=== PATIENT | female | born 1950 | race Caucasian/White ===

== ENCOUNTER → 2017-10-21 12:33 | Outpatient (CLI) | payer OTHER, SELFPAY ==
[2017-10-21 13:26] LABS: Absolute Lymphocyte Count 3.69 X10^3/ul (0.83-4.51); Absolute Neutrophil Count 4.5 X10^3/uL (2.0-7.7); Basophil# 0.03 X10^3/uL; Basophil% 0.3 % (0-1); Eosinophil# 0.18 X10^3/uL; Hematocrit 41.2 % (37-47); Hemoglobin 13.4 g/dl (12.0-15.0); Lymphocyte # 3.69 X10^3/ul (4.0); Lymphocyte % 41.7 % (19-41); Mean Corp Hgb Conc 32.5 g/gl (32-36); Mean Corpuscular Volume 95.4 fL (81-99); Mean Platelet Vol. 9.9 fl (6.2-12.0); Monocyte# 0.46 X10^3/uL; Monocyte% 5.2 % (0-10); Neutrophil # 4.47 X10^3/uL (2.7-7.7); Neutrophil % 50.6 % (47-70); Platelet Count 384 K/mm3 (150-450); RBC Distribution Width CV 13.3 % (11.6-14.6); RBC Distribution Width SD 45.1 fl (35.1-43.9); Red Blood Count 4.32 M/mm3 (4.2-5.4); White Blood Count 8.9 K/mm3 (4.4-11.0)
[2017-10-21 13:29] LABS: POSITIVE COUNT NO; POSITIVE DIFFERENTIAL NO; POSITIVE MORPHOLOGY NO
[2017-10-21 14:01] LABS: AST(SGOT) 20 U/L (15-37); Alanine Aminotransfer ALT/SGPT 32 U/L (13-56); Albumin, Serum 3.8 g/dL (3.2-5.0); Alkaline Phosphatase 118 U/L (45-117); Anion Gap 7 (5-15); BUN 20 mg/dL (7-18); BUN/Creat Ratio 22.6 RATIO (10-20); Calcium,Total 9.1 mg/dL (8.5-10.1); Chloride 105 mmol/L (98-107); Cholesterol 193 mg/dL (200); Creatinine, Serum 0.89 mg/dL (0.55-1.02); EST Glomerular Filtration Rate 68 mL/min (>60); Est Glom Filt Rate - Afr Amer 82 mL/min (>60); Free T3 2.8 pg/mL (2.18-3.98); Globulin 3.9 g/dL (2.2-4.2); Glucose 85 mg/dL (74-106); High Density Lipoprotein 47 mg/dL; Protein, Total 7.7 g/dL (6.4-8.2); Sodium Level 141 mmol/L (136-145); Thyroid Stim Hormone (TSH) 1.48 uIU/mL (0.358-3.74); Triglycerides 237 mg/dL; Very Low Density Lipoprotein 47 mg/dL (5-40)
== END ==
PROVIDERS: Family Provider Internal Medicine; PCP Internal Medicine; Visit Provider Internal Medicine Rheumatology
DX: M06.4 Inflammatory polyarthropathy (principal); M17.0 Bilateral primary osteoarthritis of knee; M16.0 Bilateral primary osteoarthritis of hip; M85.80 Other specified disorders of bone density and structure, unspecified site; M79.7 Fibromyalgia; D47.2 Monoclonal gammopathy; M21.40 Flat foot [pes planus] (acquired), unspecified foot; E03.9 Hypothyroidism, unspecified; E27.9 Disorder of adrenal gland, unspecified; H81.03 Meniere's disease, bilateral; G47.419 Narcolepsy without cataplexy; Z79.899 Other long term (current) drug therapy
CPT/HCPCS: 36415; 80053; 80061; 82306; 83036; 84439; 84443; 84481; 85025

== ENCOUNTER → 2018-01-01 12:35 | Outpatient (CLI) | payer MEDICARE, OTHER, SELFPAY ==
[2018-01-01 12:50] VITALS: PULSE 103; PULSE 105; PULSE 84; PULSE 87; PULSE 88; PULSE 96; PULSE 97; PULSE 98; O2SAT 90; O2SAT 92; O2SAT 94; O2SAT 97; O2SAT 98; O2SAT 99
--- NOTE | 2018-01-02 11:35 | PCM.PSN.6M ---
PSN 6 Minute Walk Test - 6 Minute Walk Test 6 Minute Walk Test: 6 Minute Walk Test PSN:6-Minute Walk Test Start: 01/01/18 13:51 Freq: Status: Active Protocol: [id number] Document 01/01/18 12:50 [facility] [place] (Rec: 01/01/18 14:13 [facility] [place] [id number]) 6 Minute Walk Test Date Performed 01/01/18 Time Performed 12:50 Height 5 ft 5.5 in Weight: 249 lb Weight in Pounds 249.[address]: Kvng Nunez Assistive device used: None Pre-test Oxygen Delivery Method Room Air Pulse Ox (%) 99 Pulse Rate (60-100 beats/min) 84 Dyspnea Emma Scale (0-10) 0 Exertion Emma Scale (6-20) 6 1st minute Oxygen Delivery Method Room Air Pulse Ox (%) 98 Pulse Rate (60-100 beats/min) 97 Number of Rests Taken 0 2nd minute Oxygen Delivery Method Room Air Pulse Ox (%) 92 Pulse Rate (60-100 beats/min) 98 Number of Rests Taken 0 Reported Symptoms Increased Work of Breathing 3rd minute Oxygen Delivery Method Room Air Pulse Ox (%) 98 Pulse Rate (60-100 beats/min) 88 Number of Rests Taken 1 4th minute Oxygen Delivery Method Room Air Pulse Ox (%) 90 Pulse Rate (60-100 beats/min) 96 Number of Rests Taken 0 5th minute Oxygen Delivery Method Room Air Pulse Ox (%) 90 Pulse Rate (60-100 beats/min) 103 H Number of Rests Taken 0 Reported Symptoms Increased Work of Breathing 6th minute Oxygen Delivery Method Room Air Pulse Ox (%) 94 Pulse Rate (60-100 beats/min) 105 H Reported Symptoms Increased Work of Breathing Dizziness Post-test Oxygen Delivery Method Room Air Pulse Ox (%) 97 Pulse Rate (60-100 beats/min) 87 Dyspnea Emma Scale (0-10) 4 Exertion Emma Scale (6-20) 14 Full Laps Walked 16 Partial Lap, Number of Tiles Walked 37 Total Distance Walked (ft) 981 - Interpretation Interpretation: The patient ambulated 981 feet over the course of 6 minutes beginning on room air without assistive devices or breaks. Pretesting saturation was noted to be 99% on room air. With ambulation, the noble oxygen saturation was 90%. This represents a significant exertional oxygen desaturation. - Recommendations Recommendations: There is no indication for the use of supplemental oxygen at this time. However, close interval follow-up is recommended given the degree of oxygen desaturation noted during this study.
== END ==
PROVIDERS: Family Provider Internal Medicine; PCP Internal Medicine; Visit Provider Internal Medicine Critical Care Medicine
DX: R06.09 Other forms of dyspnea (principal)
CPT/HCPCS: 94618

== ENCOUNTER → 2018-01-15 06:47 | Outpatient (CLI) | payer MEDICARE, OTHER, SELFPAY ==
--- NOTE | 2018-01-15 06:47 | DT_ITS ---
This patient was seen during an EMR downtime January 12, 2018 - January 19, 2018. This patient may have a combination of paper and electronic documentation or all paper documentation. All documentation is viewable within the e-chart portion of [facility] for each patient visit.
--- NOTE | 2018-01-19 11:54 | PFT ---
INTRODUCTION: The patient is a 67-year-old female that presents for pulmonary function testing secondary to a diagnosis of dyspnea. Respiratory therapy reports good patient effort. Bronchodilators were used during testing. INTERPRETATION: Forced expiration spirometry demonstrates no evidence of a large airways obstructive ventilatory defect. There was no significant response to aerosolized bronchodilators. Spirograms are of good quality and plateau gradually. Body plethysmography was performed and reveals lung volumes to be within normal limits. Diffusing capacity by single breath CO is mildly reduced at 69% of predicted. IMPRESSION: These pulmonary function studies demonstrate the presence of an isolated mild reduction in diffusing capacity. There are no previous pulmonary function studies available for comparison.
== END ==
PROVIDERS: Family Provider Internal Medicine; PCP Internal Medicine; Visit Provider Internal Medicine Critical Care Medicine
DX: R06.09 Other forms of dyspnea (principal)
CPT/HCPCS: 94060; 94726; 94729

== ENCOUNTER → 2018-01-16 07:53 | Outpatient (CLI) | payer MEDICARE, OTHER, SELFPAY ==
--- NOTE | 2018-01-16 07:53 | DT_ITS ---
This patient was seen during an EMR downtime January 12, 2018 - January 19, 2018. This patient may have a combination of paper and electronic documentation or all paper documentation. All documentation is viewable within the e-chart portion of [facility] for each patient visit.
[2018-01-16 15:06] LABS: ALB/GLOB Ratio 1.1 RATIO (0.9-2.4); AST(SGOT) 24 U/L (15-37); Alanine Aminotransfer ALT/SGPT 38 U/L (13-56); Albumin, Serum 3.7 g/dL (3.2-5.0); Alkaline Phosphatase 88 U/L (45-117); Anion Gap 8 (5-15); BUN 20 mg/dL (7-18); BUN/Creat Ratio 24.1 RATIO (10-20); Calcium,Total 8.7 mg/dL (8.5-10.1); Chloride 107 mmol/L (98-107); Creatinine, Serum 0.83 mg/dL (0.55-1.02); EST Glomerular Filtration Rate 73 mL/min (>60); Est Glom Filt Rate - Afr Amer 88 mL/min (>60); Free T3 2.9 pg/mL (2.18-3.98); Globulin 3.5 g/dL (2.2-4.2); Glucose 80 mg/dL (74-106); Potassium 3.7 mmol/L (3.5-5.1); Protein, Total 7.2 g/dL (6.4-8.2); Sodium Level 145 mmol/L (136-145); T4 Free Direct 1.15 ng/dL (0.76-1.46); Thyroid Stim Hormone (TSH) 2.75 uIU/mL (0.358-3.74)
[2018-01-19 17:50] LABS: Hemoglobin 12.6 g/dl (12.0-15.0); Red Blood Count 4.02 M/mm3 (4.2-5.4); White Blood Count 8.1 K/mm3 (4.4-11.0)
[2018-01-19 17:51] LABS: Basophil% 0.5 % (0-1); Eosinophils% 2.3 % (0-5); Hematocrit 39.6 % (37-47); Lymphocyte % 45.1 % (19-41); Mean Corp Hgb Conc 31.8 g/gl (32-36); Mean Corpuscular Hgb 31.3 pg (27.0-32.0); Mean Corpuscular Volume 98.5 fL (81-99); Mean Platelet Vol. 9.8 fl (6.2-12.0); Monocyte% 7.3 % (0-10); Neutrophil % 44.6 % (47-70); POSITIVE COUNT NO; POSITIVE DIFFERENTIAL NO; POSITIVE MORPHOLOGY NO; Platelet Count 343 K/mm3 (150-450); RBC Distribution Width CV 13.7 % (11.6-14.6); RBC Distribution Width SD 48.5 fl (35.1-43.9)
[2018-01-19 17:52] LABS: Absolute Lymphocyte Count 3.66 X10^3/ul (0.83-4.51); Absolute Neutrophil Count 3.6 X10^3/uL (2.0-7.7); Basophil# 0.04 X10^3/uL; Eosinophil# 0.19 X10^3/uL; Lymphocyte # 3.66 X10^3/ul (4.0); Monocyte# 0.59 X10^3/uL; Neutrophil # 3.61 X10^3/uL (2.7-7.7)
== END ==
PROVIDERS: Family Provider Internal Medicine; PCP Internal Medicine; Visit Provider Internal Medicine Rheumatology
DX: E03.9 Hypothyroidism, unspecified (principal); M06.4 Inflammatory polyarthropathy; M79.7 Fibromyalgia; M17.0 Bilateral primary osteoarthritis of knee; M16.0 Bilateral primary osteoarthritis of hip; E27.9 Disorder of adrenal gland, unspecified; D47.2 Monoclonal gammopathy; M21.40 Flat foot [pes planus] (acquired), unspecified foot; G47.419 Narcolepsy without cataplexy; H81.03 Meniere's disease, bilateral; Z79.899 Other long term (current) drug therapy
CPT/HCPCS: 36415; 80053; 84439; 84443; 84481; 85025

== ENCOUNTER → 2018-01-30 12:49 | Outpatient (CLI) | payer MEDICARE, OTHER, SELFPAY ==
--- NOTE | 2018-01-30 12:51 | BI_ITS ---
MAMMOGRAPHY - BILATERAL SCREENING REASON FOR EXAM: Female, 67 years old. Routine annual screening examination. PERTINENT HISTORY: Grandmother with breast cancer. TECHNIQUE: Digital bilateral breast sol (3D mammographic acquisition) in the CC and MLO projections. 2-D mediolateral oblique (MLO) and craniocaudad (CC) views of both breasts were obtained. CAD: Full Field Digital Mammography with Computer Added Detection was performed. COMPARISON: Comparison is made with prior study dated March 03, 2017 and July 18, 2015. FINDINGS: Breast Composition: The breasts are almost entirely fatty. There are no dominant masses or suspicious calcifications. Stable benign-appearing bilateral axillary lymph nodes. No other significant abnormalities are identified. There has been no significant change since the prior study. BI/SCREENING MAMM (CAD), BILAT IMPRESSION: Stable bilateral screening mammogram. Yearly follow-up mammogram recommended. (A) ASSESSMENT CATEGORY: BIRADS Category 2: Benign. A letter regarding these results will be sent to the patient by the facility within 30 days. Approximately 10% of breast cancers are not detected by mammography. A normal mammogram should not delay biopsy of a clinically suspicious abnormality. [id number] Electronically Signed: Billy Kaplan MD at 8:10 EDT Tel [phone], Service support ,
== END ==
PROVIDERS: Family Provider Internal Medicine; PCP Internal Medicine; Visit Provider Internal Medicine
DX: Z12.31 Encounter for screening mammogram for malignant neoplasm of breast (principal); Z80.3 Family history of malignant neoplasm of breast
CPT/HCPCS: 77063; 77067

== ENCOUNTER → 2018-02-05 11:11 | Outpatient (CLI) | payer MEDICARE, OTHER, SELFPAY ==
--- NOTE | 2018-02-05 11:13 | ECHOD_ITS ---
Reason For Study: DYSPNEA Procedure This was a 2D Doppler, Color Flow transthoracic echocardiogram. Exam performed in department. Left Ventricle Normal size and thickness. The estimated ejection fraction is 65 %. Stage 1 diastolic dysfunction. Septal motion consistent with IVCD. No regional wall motion abnormalities noted. Right Ventricle Normal size and thickness. Normal systolic function. Atria Normal left atrium. Normal right atrium. Normal atrial septum. Mitral Valve The mitral valve is structurally normal. No prolapse or stenosis seen. Tricuspid Valve Normal tricuspid valve. Trivial tricuspid valve insufficiency. Right ventricular systolic pressure estimated to be 22 mmHg. Aortic Valve Normal aortic valve. Trisinus/trileaflet aortic valve. Pulmonic Valve Normal pulmonic valve. Great Vessels Normal aortic root. Normal arch. Normal inferior vena cava. Inferior vena cava collapse with sniff. Pericardium/Pleural No pericardial effusion. MMode/2D Measurements & Calculations LVIDd: 4.7 cm IVSd: 0.98 cm Ao root diam: 3.3 cm LVIDs: 3.1 cm LVPWd: 1.0 cm RVDd: 3.7 cm FS: 34.1 % LAV(MOD-bp): 48.8 ml LA A4 area: 20.3 cm2 RA A4 area: 17.8 cm2 LAV(MOD-bp) Indexed: 22.3 ml/m2 LAV(MOD-sp2): 38.2 ml LAV(MOD-sp4): 58.9 ml Time Measurements MV dec time: 0.23 sec Doppler Measurements & Calculations MV E max rai: 87.6 cm/sec Lat Peak E' Ria: 6.6 cm/sec Med Peak E' Rai: 5.0 cm/sec MV A max rai: 110.7 cm/sec E/E' lat: 13.3 E/E' med: 17.6 MV E/A: 0.79 Ao V2 max: 138.0 cm/sec LV V1 max: 96.3 cm/sec TR max rai: 202.5 cm/sec Ao max P.6 mmHg LV V1 max P.7 mmHg TR max P.4 mmHg Interpretation Summary The estimated ejection fraction is 65 %. Stage 1 diastolic dysfunction. Trivial tricuspid valve insufficiency. Right ventricular systolic pressure estimated to be 22 mmHg. Compared to echo report dated 12/21/2015, no appreciable changes noted. Ordering Physician: Kvng Nunez Referring Physician: Kvng Nunez Performed By: Beth Mancini, ABELINO, RVT
== END ==
PROVIDERS: Family Provider Internal Medicine; PCP Internal Medicine; Visit Provider Internal Medicine Critical Care Medicine
DX: R06.00 Dyspnea, unspecified (principal); R06.02 Shortness of breath
CPT/HCPCS: 93306

== ENCOUNTER → 2018-03-24 10:21 | Outpatient (CLI) | payer MEDICARE, OTHER, SELFPAY ==
[2018-03-24 11:36] LABS: Absolute Lymphocyte Count 2.74 X10^3/ul (0.83-4.51); Absolute Neutrophil Count 2.6 X10^3/uL (2.0-7.7); Basophil# 0.03 X10^3/uL; Basophil% 0.5 % (0-1); Eosinophil# 0.27 X10^3/uL; Eosinophils% 4.5 % (0-5); Hematocrit 39.7 % (37-47); Hemoglobin 12.7 g/dl (12.0-15.0); Lymphocyte # 2.74 X10^3/ul (4.0); Lymphocyte % 45.4 % (19-41); Mean Corpuscular Hgb 30.5 pg (27.0-32.0); Mean Corpuscular Volume 95.2 fL (81-99); Mean Platelet Vol. 9.8 fl (6.2-12.0); Monocyte% 6.6 % (0-10); Platelet Count 358 K/mm3 (150-450); RBC Distribution Width CV 13.2 % (11.6-14.6); RBC Distribution Width SD 45.6 fl (35.1-43.9); Red Blood Count 4.17 M/mm3 (4.2-5.4)
[2018-03-24 11:38] LABS: POSITIVE COUNT NO; POSITIVE DIFFERENTIAL NO; POSITIVE MORPHOLOGY NO
[2018-03-24 12:19] LABS: ALB/GLOB Ratio 1.1 RATIO (0.9-2.4); AST(SGOT) 30 U/L (15-37); Alanine Aminotransfer ALT/SGPT 45 U/L (13-56); Alkaline Phosphatase 96 U/L (45-117); Anion Gap 8 (5-15); BUN 23 mg/dL (7-18); BUN/Creat Ratio 27.2 RATIO (10-20); Calcium,Total 8.9 mg/dL (8.5-10.1); Chloride 103 mmol/L (98-107); Creatinine, Serum 0.85 mg/dL (0.55-1.02); EST Glomerular Filtration Rate 72 mL/min (>60); Est Glom Filt Rate - Afr Amer 87 mL/min (>60); Globulin 3.7 g/dL (2.2-4.2); Glucose 107 mg/dL (74-106); Potassium 3.3 mmol/L (3.5-5.1); Protein, Total 7.7 g/dL (6.4-8.2); Sodium Level 140 mmol/L (136-145)
[2018-03-24 12:32] LABS: Anion Gap 9 (5-15); BUN 23 mg/dL (7-18); BUN/Creat Ratio 27.5 RATIO (10-20); Calcium,Total 9.1 mg/dL (8.5-10.1); Chloride 102 mmol/L (98-107); Creatinine, Serum 0.84 mg/dL (0.55-1.02); EST Glomerular Filtration Rate 73 mL/min (>60); Est Glom Filt Rate - Afr Amer 88 mL/min (>60); Glucose 106 mg/dL (74-106); Potassium 3.2 mmol/L (3.5-5.1); Sodium Level 139 mmol/L (136-145)
== END ==
PROVIDERS: Family Provider Internal Medicine; PCP Internal Medicine; Visit Provider Internal Medicine Rheumatology
DX: M06.4 Inflammatory polyarthropathy (principal); M79.7 Fibromyalgia; M17.0 Bilateral primary osteoarthritis of knee; M16.0 Bilateral primary osteoarthritis of hip; E27.9 Disorder of adrenal gland, unspecified; D47.2 Monoclonal gammopathy; I10 Essential (primary) hypertension; M21.40 Flat foot [pes planus] (acquired), unspecified foot; E03.9 Hypothyroidism, unspecified; E23.3 Hypothalamic dysfunction, not elsewhere classified; G47.419 Narcolepsy without cataplexy; H81.03 Meniere's disease, bilateral; Z79.899 Other long term (current) drug therapy
CPT/HCPCS: 36415; 80048; 80053; 83735; 85025

== ENCOUNTER → 2018-03-30 08:04 | Outpatient (CLI) | payer MEDICARE, OTHER, SELFPAY ==
[2018-03-30 09:18] LABS: BUN 20 mg/dL (7-18); Creatinine, Serum 0.81 mg/dL (0.55-1.02); EST Glomerular Filtration Rate 75 mL/min (>60); Glucose 119 mg/dL (74-106)
[2018-03-30 09:19] LABS: Anion Gap 14 (5-15); BUN/Creat Ratio 24.7 RATIO (10-20); Calcium,Total 8.6 mg/dL (8.5-10.1); Chloride 104 mmol/L (98-107); Est Glom Filt Rate - Afr Amer 91 mL/min (>60); Potassium 3.2 mmol/L (3.5-5.1); Sodium Level 145 mmol/L (136-145)
[2018-03-31 14:34] LABS: Adrenocorticotropic Hormone 55.1 pg/mL (7.2-63.3)
== END ==
PROVIDERS: Family Provider Internal Medicine; PCP Internal Medicine; Visit Provider Internal Medicine Endocrinology, Diabetes & Metabolism
DX: E23.3 Hypothalamic dysfunction, not elsewhere classified (principal); E27.9 Disorder of adrenal gland, unspecified
CPT/HCPCS: 36415; 80048; 82024; 82533

== ENCOUNTER → 2018-04-24 12:56 | Outpatient (CLI) | payer MEDICARE, OTHER, SELFPAY ==
[2018-04-24 14:14] LABS: BUN 18 mg/dL (7-18); Creatinine, Serum 0.83 mg/dL (0.55-1.02); Glucose 86 mg/dL (74-106)
[2018-04-24 14:15] LABS: AST(SGOT) 33 U/L (15-37); Alanine Aminotransfer ALT/SGPT 55 U/L (13-56); Albumin, Serum 3.8 g/dL (3.2-5.0); Alkaline Phosphatase 99 U/L (45-117); Anion Gap 11 (5-15); BUN/Creat Ratio 21.7 RATIO (10-20); Calcium,Total 9.3 mg/dL (8.5-10.1); Chloride 104 mmol/L (98-107); EST Glomerular Filtration Rate 73 mL/min (>60); Est Glom Filt Rate - Afr Amer 89 mL/min (>60); Free T3 3.1 pg/mL (2.18-3.98); Globulin 3.7 g/dL (2.2-4.2); Potassium 3.5 mmol/L (3.5-5.1); Protein, Total 7.5 g/dL (6.4-8.2); Sodium Level 143 mmol/L (136-145); T4 Free Direct 1.15 ng/dL (0.76-1.46); Thyroid Stim Hormone (TSH) 1.48 uIU/mL (0.358-3.74)
[2018-04-24 14:23] LABS: Hemoglobin A1c 5.9 % (4.2-6.3)
== END ==
PROVIDERS: Family Provider Internal Medicine; PCP Internal Medicine; Visit Provider Internal Medicine Endocrinology, Diabetes & Metabolism
DX: E03.9 Hypothyroidism, unspecified (principal); E23.3 Hypothalamic dysfunction, not elsewhere classified; E27.9 Disorder of adrenal gland, unspecified
CPT/HCPCS: 36415; 80053; 83036; 84439; 84443; 84481

== ENCOUNTER → 2018-05-07 11:11 | Outpatient (CLI) | payer MEDICARE, OTHER, SELFPAY ==
--- NOTE | 2018-05-07 11:26 | MRI_ITS ---
STUDY: MRI BRAIN WITH AND WITHOUT CONTRAST REASON FOR EXAM: Female, 67 years old. Pituitary abnormality TECHNIQUE: Standardized multiplanar fat and water weighted pulse sequences were obtained. 20 ml of Dotarem contrast material was administered intravenously for the contrast portion of the examination. COMPARISON: CT of the brain on April 12, 2016. FINDINGS: Normal size of the ventricles and extra-axial spaces for the patient's age. Minor periventricular white matter ischemic changes without mass effect or restricted diffusion. There are chronic ischemic changes in the right dentate nucleus. Chronic ischemic changes within the right pontine body. Normal bilateral basal ganglia. Normal thalami. There is no extra-axial fluid accumulation. Normal flow voids within the major intracranial circulation suggesting patency by spin echo criteria. Normal venous enhancement. There is no enhancing intra-axial or extra-axial abnormality. The pituitary is normal size. There is very slight heterogeneous enhancement but no well-defined nodule. Nevertheless microadenoma cannot be entirely excluded and correlation with laboratory values recommended for further evaluation. Normal, infundibular stalk, optic chiasm and hypothalamus. Normal tectal plate and pineal gland. Normal midbrain and medulla. Normal basal cisterns. Normal bilateral temporal bones. Normal bilateral internal auditory canals. No demonstrated orbital abnormality, within the constraints of a routine brain study. Small mucous retention cyst in left maxillary sinus.. Normal calvarium and skull base. Normal visualized soft tissue structures. Normal visualized upper cervical spine. MRI/Brain W/WO Contrast IMPRESSION: Minor periventricular white matter ischemic changes without evidence for acute infarct. Minor chronic ischemic changes within the milagros and cerebellum. Normal size pituitary without well-defined nodule Electronically Signed: Wu Bates MD at 16:48 EDT , Service support ,
== END ==
PROVIDERS: Family Provider Internal Medicine; PCP Internal Medicine; Referring Provider Internal Medicine Endocrinology, Diabetes & Metabolism; Visit Provider Internal Medicine Endocrinology, Diabetes & Metabolism
DX: E23.7 Disorder of pituitary gland, unspecified (principal)
CPT/HCPCS: 70553

== ENCOUNTER → 2018-06-25 08:33 | Outpatient (CLI) | payer MEDICARE, OTHER, SELFPAY ==
[2018-06-25 10:10] LABS: Anion Gap 8 (5-15); BUN 26 mg/dL (7-18); Calcium,Total 8.8 mg/dL (8.5-10.1); Chloride 102 mmol/L (98-107); Creatinine, Serum 0.84 mg/dL (0.55-1.02); EST Glomerular Filtration Rate 72 mL/min (>60); Est Glom Filt Rate - Afr Amer 88 mL/min (>60); Glucose 101 mg/dL (74-106); Potassium 3.5 mmol/L (3.5-5.1); Sodium Level 140 mmol/L (136-145)
[2018-06-25 11:30] LABS: ALB/GLOB Ratio 1.1 RATIO (0.9-2.4); AST(SGOT) 58 U/L (15-37); Alanine Aminotransfer ALT/SGPT 85 U/L (13-56); Alkaline Phosphatase 115 U/L (45-117); Globulin 3.8 g/dL (2.2-4.2); Protein, Total 7.8 g/dL (6.4-8.2)
[2018-06-25 12:25] LABS: Absolute Lymphocyte Count 3.64 X10^3/ul (0.83-4.51); Absolute Neutrophil Count 3.7 X10^3/uL (2.0-7.7); Basophil# 0.03 X10^3/uL; Basophil% 0.4 % (0-1); Eosinophil# 0.24 X10^3/uL; Eosinophils% 3.1 % (0-5); Hematocrit 42.9 % (37-47); Hemoglobin 13.9 g/dl (12.0-15.0); Lymphocyte # 3.64 X10^3/ul (4.0); Lymphocyte % 46.4 % (19-41); Mean Corp Hgb Conc 32.4 g/gl (32-36); Mean Corpuscular Volume 95.8 fL (81-99); Mean Platelet Vol. 9.9 fl (6.2-12.0); Monocyte# 0.26 X10^3/uL; Monocyte% 3.3 % (0-10); Neutrophil # 3.65 X10^3/uL (2.7-7.7); Neutrophil % 46.5 % (47-70); Platelet Count 399 K/mm3 (150-450); RBC Distribution Width CV 13.4 % (11.6-14.6); RBC Distribution Width SD 45.6 fl (35.1-43.9); Red Blood Count 4.48 M/mm3 (4.2-5.4); White Blood Count 7.8 K/mm3 (4.4-11.0)
[2018-06-25 12:33] LABS: POSITIVE COUNT NO; POSITIVE DIFFERENTIAL NO; POSITIVE MORPHOLOGY NO
== END ==
PROVIDERS: Family Provider Internal Medicine; PCP Internal Medicine; Referring Provider Internal Medicine; Visit Provider Internal Medicine
DX: M06.4 Inflammatory polyarthropathy (principal); M79.7 Fibromyalgia; M17.0 Bilateral primary osteoarthritis of knee; M16.0 Bilateral primary osteoarthritis of hip; E27.9 Disorder of adrenal gland, unspecified; D47.2 Monoclonal gammopathy; M21.40 Flat foot [pes planus] (acquired), unspecified foot; Z79.899 Other long term (current) drug therapy
CPT/HCPCS: 36415; 80053; 85025

== ENCOUNTER → 2018-07-29 20:00 | Outpatient (CLI) | payer MEDICARE, OTHER, SELFPAY ==
[2018-07-14 12:42] VITALS: BMI 41.4
== END ==
PROVIDERS: Family Provider Internal Medicine; PCP Internal Medicine; Visit Provider Internal Medicine Critical Care Medicine
DX: G47.33 Obstructive sleep apnea (adult) (pediatric) (principal)
CPT/HCPCS: 95811

== ENCOUNTER → 2018-08-05 08:00 | Outpatient (CLI) | payer MEDICARE, SELFPAY ==
[2018-07-14 12:42] VITALS: BMI 41.4
[2018-08-05 09:28] LABS: Hemoglobin A1c 6.2 % (4.2-6.3)
[2018-08-05 09:47] LABS: ALB/GLOB Ratio 1.1 RATIO (0.9-2.4); AST(SGOT) 33 U/L (15-37); Alanine Aminotransfer ALT/SGPT 48 U/L (13-56); Albumin, Serum 3.7 g/dL (3.2-5.0); Alkaline Phosphatase 111 U/L (45-117); Anion Gap 8 (5-15); BUN 26 mg/dL (7-18); BUN/Creat Ratio 34.8 RATIO (10-20); Calcium,Total 8.6 mg/dL (8.5-10.1); Chloride 108 mmol/L (98-107); Cholesterol 157 mg/dL (200); Creatinine, Serum 0.75 mg/dL (0.55-1.02); EST Glomerular Filtration Rate 83 mL/min (>60); Est Glom Filt Rate - Afr Amer 100 mL/min (>60); Globulin 3.5 g/dL (2.2-4.2); Glucose 113 mg/dL (74-106); High Density Lipoprotein 44 mg/dL; Potassium 3.6 mmol/L (3.5-5.1); Prolactin 8.8 ng/mL; Protein, Total 7.2 g/dL (6.4-8.2); Sodium Level 143 mmol/L (136-145); T4 Free Direct 1.06 ng/dL (0.76-1.46); Thyroid Stim Hormone (TSH) 1.86 uIU/mL (0.358-3.74); Triglycerides 153 mg/dL; Very Low Density Lipoprotein 31 mg/dL (5-40)
== END ==
PROVIDERS: Family Provider Internal Medicine; PCP Internal Medicine; Referring Provider Internal Medicine Endocrinology, Diabetes & Metabolism; Visit Provider Internal Medicine Endocrinology, Diabetes & Metabolism
DX: E78.00 Pure hypercholesterolemia, unspecified (principal); R73.03 Prediabetes; E23.7 Disorder of pituitary gland, unspecified
CPT/HCPCS: 36415; 80053; 80061; 82533; 83036; 84146; 84439; 84443; 84481

== ENCOUNTER → 2018-08-26 14:53 | Outpatient (CLI) | payer MEDICARE, SELFPAY ==
[2018-07-14 12:42] VITALS: BMI 41.4
[2018-08-07 09:53] VITALS: BMI 41.4
[2018-08-26 17:40] LABS: Absolute Lymphocyte Count 3.62 X10^3/ul (0.83-4.51); Absolute Neutrophil Count 4.9 X10^3/uL (2.0-7.7); Basophil# 0.05 X10^3/uL; Basophil% 0.5 % (0-1); Eosinophil# 0.34 X10^3/uL; Eosinophils% 3.5 % (0-5); Hematocrit 40.4 % (37-47); Hemoglobin 13.3 g/dl (12.0-15.0); Lymphocyte # 3.62 X10^3/ul (4.0); Lymphocyte % 37.8 % (19-41); Mean Corp Hgb Conc 32.9 g/gl (32-36); Mean Corpuscular Volume 97.1 fL (81-99); Mean Platelet Vol. 10.4 fl (6.2-12.0); Monocyte# 0.66 X10^3/uL; Monocyte% 6.9 % (0-10); Neutrophil # 4.86 X10^3/uL (2.7-7.7); Neutrophil % 50.8 % (47-70); Platelet Count 376 K/mm3 (150-450); RBC Distribution Width CV 13.5 % (11.6-14.6); RBC Distribution Width SD 46.4 fl (35.1-43.9); Red Blood Count 4.16 M/mm3 (4.2-5.4); White Blood Count 9.6 K/mm3 (4.4-11.0)
[2018-08-26 17:48] LABS: POSITIVE COUNT NO; POSITIVE DIFFERENTIAL NO; POSITIVE MORPHOLOGY NO
[2018-08-26 17:53] LABS: AST(SGOT) 32 U/L (15-37); Alanine Aminotransfer ALT/SGPT 53 U/L (13-56); Albumin, Serum 3.8 g/dL (3.2-5.0); Alkaline Phosphatase 119 U/L (45-117); Anion Gap 8 (5-15); BUN 24 mg/dL (7-18); BUN/Creat Ratio 25.2 RATIO (10-20); Calcium,Total 8.8 mg/dL (8.5-10.1); Chloride 105 mmol/L (98-107); Creatinine, Serum 0.95 mg/dL (0.55-1.02); EST Glomerular Filtration Rate 62 mL/min (>60); Est Glom Filt Rate - Afr Amer 76 mL/min (>60); Globulin 3.7 g/dL (2.2-4.2); Glucose 123 mg/dL (74-106); Potassium 3.5 mmol/L (3.5-5.1); Protein, Total 7.5 g/dL (6.4-8.2); Sodium Level 142 mmol/L (136-145)
--- OUTSIDE RECORDS SUMMARY | 2018-10-31 14:00 | XMS RPT_ITS | Clinical Summary ---
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 Abnormal 531295289 Active Yolande Lorena Kika Electrocardiogr electrocardi (SNOMED RN am abnormal ogram CT) Recurrent 439619637 Active Marcelo A Recurrent bacterial (SNOMED 04/11 04/[address]) SOLUTION 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-C cystitis Flank pain, 465031924 Active Efewongbe Right flank right (SNOMED 04/08 04/[address]) Abnormal CBC 182678225 Active Efewongbe Full blood (SNOMED 04/08 04/08 B [address] count abnormal CT) Hypothyroidi 68040706 Active Efewongbe Hypothyroidism sm (SNOMED 04/08 04/[address]) Dysuria 33367028 Active Efewongbe Dysuria (SNOMED 04/08 04/[address]) BODY MASS Z68.41 Active Neva Muniz Body mass index INDEX (ICD-10-CM [place], (BMI) 40.0-44.9 ) PA-C 40.0-44.9, ADULT adult Abnormal 722730447 Active Aniyah Muniz Imaging of musculoskele (SNOMED 04/11 04/11 [employer] musculoskeletal ivan system CT) system abnormal imaging Monoclonal 397250763 Active Aniyah M Monoclonal gammopathy (SNOMED 03/10 03/[address]) (clinical) 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 Yolande Anand Nonrheumatic tricuspid (ICD-10-CM 12/20 12/20 RN tricuspid (valve) ) (valve) insufficienc insufficiency y Localized 966787035 Active [place] S Localized edema edema (SNOMED 12/05 12/[address]) Adrenal 074673222 Active [place] S 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 Emil cortical y CT) hypofunction Hypertension 36013027 Inactive Orlando S Hypertensive (SNOMED 12/03 12/[address]) Problem excluded from report: Hx of syncope 162789289 Active Yolande A H/O: Disorder and collapse (SNOMED CT) Kika RN Hypertension 11838049 Removed Yolande Carrillo Hypertensive (SNOMED CT) Kika RN disorder Medications Medication Instructions Start Stop Generic Name NDC Provider Date Date CIPRO 500 MG TABS 1 tablet Q12 CIPROFLOXACIN HCL 58977115442 Efewongbe 05/05 Osvaldo Hull MD MACROBID 100 MG CAPS One tablet by 2016/ NITROFURANTOIN [id number] Marcelo A mouth twice 04/11 04/18 MONOHYD MACRO Main daily 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-C WELLBUTRIN SR 150 MG One tablet by BUPROPION HCL [id number] Yolande A Kika [id number] mouth daily 12/03 RN POTASSIUM CHLORIDE One tablet by POTASSIUM CHLORIDE 50936165022 Yolande A Kika ER 20 MEQ CR-TABS mouth daily 12/03 RN VITAMIN D 2000 UNIT One tablet by CHOLECALCIFEROL 33818846223 Yolande A Kika TABS mouth daily 12/03 RN FUROSEMIDE 20 MG One tablet by FUROSEMIDE 43906866702 Yolande A Kika TABS mouth daily 12/03 RN FUROSEMIDE 20 MG One tablet by FUROSEMIDE 43033502199 Orlando S TABS mouth daily 12/03 12/05 MD Emil LASIX 20 MG TABS One tablet by FUROSEMIDE 21443774811 [place] S mouth daily 12/05 MD Emil LASIX 20 MG TABS One tablet by FUROSEMIDE 05328661559 Yolande A Kika mouth daily 12/05 12/20 RN POTASSIUM CHLORIDE One tablet by POTASSIUM CHLORIDE 88439283731 Orlando S TERA ER 10 MEQ mouth every 12/03 TERA CR MD Emil CR-TABS other day POTASSIUM CHLORIDE One tablet by 2015/ POTASSIUM CHLORIDE 68200361979 Yolande A Kika TERA ER 10 MEQ mouth every 12/03 12/20 TERA CR RN CR-TABS other day WELLBUTRIN XL 300 MG One tablet by BUPROPION HCL 79430966831 Orlando S [id number] mouth daily 12/03 MD Emil WELLBUTRIN XL 300 MG One tablet by 2015/ BUPROPION HCL 74362557272 Earnest H [id number] mouth daily 12/03 03/19 Shahbaz DO CELEBREX 200 MG CAPS One tablet by CELECOXIB 97168918854 Yolande A Kika mouth daily 12/03 RN HYDROCHLOROTHIAZIDE PRN HYDROCHLOROTHIAZIDE 80768024635 Earnest H 12.5 MG TABS Shahbaz DO HYDROCHLOROTHIAZIDE PRN 2015/ HYDROCHLOROTHIAZIDE 96192777314 Juan M 12.5 MG TABS 05/15 Alam TRULICITY 0.75 DULAGLUTIDE 82316096812 Earnest H MG/0.5ML SOPN Shahbaz DO TRULICITY 0.75 2015/ DULAGLUTIDE 51570547221 Juan M MG/0.5ML SOPN 05/15 Alam NORCO 5-325 MG TABS 1 tablet by HYDROCODONE-ACETAMI 15110359626 Yolande A Kika mouth every 12/03 NOPHEN RN horus as needed NORCO 5-325 MG TABS 1 tablet by 2015/ HYDROCODONE-ACETAMI 13161927930 Juan M mouth every 12/03 NOPHEN Alam horus as needed PROVIGIL 200 MG TABS One tablet by MODAFINIL 76971847812 Orlando S mouth daily 12/05 MD Emil PROVIGIL 200 MG TABS One tablet by 2015/ MODAFINIL 89784334385 Juan M mouth daily 12/05 05/15 Alam SINGULAIR 10 MG TABS One tablet by MONTELUKAST SODIUM 87625005178 Orlando S mouth daily 12/05 MD Emil SINGULAIR 10 MG TABS One tablet by 2015/ MONTELUKAST SODIUM 18249142227 Juan M mouth daily 12/05 05/15 Alajohana PULMICORT FLEXHALER Take as BUDESONIDE 41710585547 Orlando S 180 MCG/ACT AEPB directed 12/05 MD Emil PULMICORT FLEXHALER Take as 2015/ BUDESONIDE 60842069669 Juan M 180 MCG/ACT AEPB directed 12/05 05/15 Alam LOULOU 180 MG TABS One tablet by FEXOFENADINE HCL Orlando S mouth daily 12/05 MD Emil as needed LOULOU 180 MG TABS One tablet by 2015/ FEXOFENADINE HCL Juan M mouth daily 12/05 05/15 Alajohana as needed ALBUTEROL SULFATE via nebulizer ALBUTEROL SULFATE 10759761848 [place] S (2.5 MG/3ML) 0.083% 12/05 MD Emil NEBU ALBUTEROL SULFATE via nebulizer 2015/ ALBUTEROL SULFATE 07054618498 Juan M (2.5 MG/3ML) 0.083% 12/05 05/15 Alajohana NEBU ULTRAM 50 MG TABS 1 tablet by TRAMADOL HCL 95725222351 Yolande A Kika mouth every 6 12/03 RN hours as needed ULTRAM 50 MG TABS 1 tablet by 2016/ TRAMADOL HCL 56870509187 Velvet D mouth every 6 12/03 08/29 Bales hours as needed AMRIX 15 MG PRN CYCLOBENZAPRINE HCL 62319729403 [facility] H [id number] Shabhaz DO AMRIX 15 MG PRN 2017/ CYCLOBENZAPRINE HCL 90269637587 Velvet D [id number] 04/08 Amairani MELATONIN 5 MG TABS Two tablets MELATONIN 63094016887 Yolande Anand by mouth 12/03 RN daily as needed at bedtime VITAMIN D One tablet by ERGOCALCIFEROL 25907000184 [place] S (ERGOCALCIFEROL) mouth weekly 12/03 MD Emil 99887 UNIT CAPS VITAMIN D3 2000 UNIT 5000 IU daily CHOLECALCIFEROL 00027949415 Orlando S CAPS 12/05 MD Emil PREDNISONE 5 MG TABS PREDNISONE 30837020101 [facility] Shahbaz DO OMEPRAZOLE 10 MG PRN OMEPRAZOLE 13533021580 [facility] CPDR Shahbaz DO SYNTHROID 50 MCG One tablet by LEVOTHYROXINE 67791040277 Juan M TABS mouth daily. SODIUM Alam MAGNESIUM 250 MG One tablet by MAGNESIUM 75499218892 Juan M TABS mouth daily Alam as needed. MULTIPLE VITAMINS One tablet by MULTIPLE VITAMIN 57018693122 Juan M TABS mouth daily. Alam VITAMIN D3 2000 UNIT One tablet by CHOLECALCIFEROL 50487157691 Juan M TABS mouth daily. Alam CELEBREX 200 MG CAPS One tablet by CELECOXIB 52655880720 Velvet D mouth daily 04/08 Amairani LEUCOVORIN CALCIUM 1 weekly LEUCOVORIN CALCIUM 47523515287 Velvet D 25 MG TABS 04/08 Amairani FOLIC ACID XTRA TABS One tablet by FOLIC 26350703061 Velvet D mouth daily 04/08 [id number] Amairani OLINE AMITRIPTYLINE HCL 25 One tablet by AMITRIPTYLINE HCL 78818730979 Velvet D MG TABS mouth daily 04/08 Amairani ASPIRIN 81 MG TBEC One tablet by ASPIRIN 92421204512 Velvet D mouth daily 04/08 Amairani TRIAMTERENE-HCTZ One tablet by TRIAMTERENE-HCTZ 18047251365 Velvet D 37.5-25 MG CAPS mouth daily 04/08 Amairani as needed Medications Administered No information available. Allergies, Adverse Reactions, Alerts Allergy Name Reaction Start Date Severity Status Provider Description MORPHINE SULFATE Severe Active Efewongbe B (PF) Kurtis RENO DILANTIN Critical Active Velvet D Bales LYRICA Unknown No Longer Velvet D Bales Active TOPAMAX Unknown No Longer Velvet D Bales Active DILANTIN Unknown No Longer Velvet D Amairani Active HONEYDEW MELON unknown Critical Active Yolande A Kika WOLFF TOPAMAX unknown Critical No Longer Yolande A Kika WOLFF Active TORADOL ANAPHYLAXIS Critical Active Yolande A Kika WOLFF LYRICA edema Moderate No Longer Yolande A Kika WOLFF Active DILANTIN Rash Severe No Longer Yolande A Kika WOLFF Active Results Date Name Value Unit Range Flag Description Clinical Lists Update: Preload GFR AA 89 mL/min/1.73m2 Glomerular Filtration Rate GFRC 73 mL/min/1.73m2 Glomerular Filtration Rate Calculation Clinical Lists Update: Clinical Note CARDEFECHO 60 % Left ventricular Ejection fraction Office Visit: Initial Consultation - MGUS MAMMOGRAM Unknown Breast Mammogram screening COLONOSCOPY Normal Colonoscopy (procedure) Lab Report: Protein Electroph, S A/G SER PE 1.0 (?) {ratio} 0.7-1.7 Albumin to Globulin Ratio by protein electrophoresis GLOBU SER PE 3.5 g/dL 2.2-3.9 serum globulin by protein electrophoresis M.SPIKE 0.4 Not Observed H gamma globulin, serum, monoclonal spike GAMMA SER PE 0.9 g/dL 0.4-1.8 gamma globulin, serum by protein electrophoresis BETA SER PE 1.4 g/dL 0.7-1.3 H beta globulin, serum, by protein electrophoresis ALPH-2 SR PE 0.9 g/dL 0.4-1.0 alpha-2 globulin, serum, by protein electrophoresis ALPH-1 SR PE 0.2 g/dL 0.0-0.4 alpha-1 globulin, serum, by protein electrophoresis ALBUM SER PE 3.6 g/dL 2.9-4.4 albumin, serum by protein electrophoresis Lab Report: Rssi-1-Ggnfoohrxgjvc, S B2MI 1.9 mg/L 0.6-2.4 beta-2 microglobulin Replaced Document: (P) Prothrombin Time w/INR INR 0.9 international normalized ratio (INR) PT RATIO 12.1 SECONDS 11.7-14.9 prothrombin time, actual/normal, ratio Lab Report: Partial Thromboplast Time ACTIV PTT 22.6 s 24.1-36.2 L activated partial thromboplastin time (aPTT) Lab Report: DOUGLAS + Prot Electro 24 HR UR IFEINTERPUR Comment . immunofixation electrophoresis interpretation, urine UMOPR Not Observed % Not Observed Monoclonal Protein GAMMA UR IE 10.6 % . gamma globulin, urine by immunoelectrophoresis BETA UR IE 27.4 % . beta globulin, urine, by immunoelectrophoresis ALPH-2 UR IE 23.8 % . alpha-2 globulin, urine by immunoelectrophoresis ALPH-1 UR IE 13.2 % . alpha-1 globulin, urine, by immunoelectrophoresis ALBUMIN, UR 25.0 % . albumin, urine PROT 24H URN 273.0 mg/24h 30.0-150.0 H protein, total, urine, 24 hour PROTEIN UR 15.6 mg/dL Not Estab. Protein [Mass] in Urine collected for unspecified duration Lab Report: Uric Acid URIC ACID 4.1 mg/dL 2.6-6.0 uric acid, serum Lab Report: Thyroid Stim Hormone (TSH) TSH 2.36 u[iU]/mL 0.358-3.74 thyroid stimulating hormone, serum Lab Report: LDH LDH SERUM 187 U/L 84-246 lactate dehydrogenase - serum Lab Report: T4 Free Direct T4, FREE 1.10 ng/dL 0.76-1.46 thyroxine, serum, free Lab Report: Hemoglobin A1c HGBA1C 5.7 % 4.2-6.3 Hemoglobin A1c/Hemoglobin.total in Blood Lab Report: DOUGLAS + Protein Elect, Serum LAB COMMENTS Comment . lab comments SPE COMMENT Comment . serum protein electrophoresis, interpretation/comment MONO PROTEIN 0.3 g/dL Not Observed H MONOCLONAL PROTEIN GAMMA GLOB 800 mg/dL Units converted. gamma globulin, serum See lab report for original value. BETA SER IE 1.3 g/dL 0.7-1.3 beta globulin, serum, by immunoelectrophoresis ALPHA 2 GLOB 0.9 g/dL 0.4-1.0 alpha-2 globulin, serum ALPH-1 SR IE 0.3 g/dL 0.0-0.4 alpha-1 globulin, serum, by immunoelectrophoresis ALBU SER IE 3.6 g/dL 2.9-4.4 albumin, serum by immunoelectrophoresis IGM SERUM 37 mg/dL 26-217 IgM, serum IGA SERUM 327 mg/dL 87-352 IgA, serum IGG SERUM 791 mg/dL 700-1600 IgG, serum TOT PROT IE 6.8 g/dL 6.0-8.5 protein, total, serum by immunoelectrophoresis Lab Report: [place] Lambda Lt Chn Ser. Mon. FRKAPPALAMBR 0.67 0.26-1.65 free [place]/Lambda ratio FRLAMBDALTCH 1.884 mg/dL Units converted. See free Lambda light chain lab report for original value. KAPPAFRLTCHN 1.264 mg/dL Units converted. See kappa free light chains lab report for original value. Office Visit: New Pt. Visit MEDS REVIEW Done Documentation of current medications (procedure) FALLRSKASSES Yes Fall risk assessment ALCOHOLCOUNS yes Alcoholism counseling (procedure) ORALTOBACUSE Never Tobacco smoking status NHIS SMOK STATUS Never smoker Tobacco use [facility] Replaced Document: Comprehensive Metabolic Profil ANION GAP 6 5-15 anion gap, serum CO2 29.0 mmol/L 21.0-32.0 carbon dioxide, venous blood CHLORIDE 107 mmol/L 98-107 chloride, serum POTASSIUM 3.8 mmol/L 3.5-5.1 potassium, serum SODIUM 142 mmol/L 136-145 sodium, serum BILI TOTAL 0.30 mg/dL 0.20-1.00 bilirubin, serum, total SGPT (ALT) 32 U/L 12-78 alanine aminotransferase (SGPT), serum ALK PHOS 112 U/L 45-117 alkaline phosphatase, serum SGOT (AST) 17 U/L 15-37 aspartate aminotransferase (SGOT), serum CALCIUM 8.7 mg/dL 8.5-10.1 calcium, serum A/G RATIO 0.9 RATIO 0.9-2.4 albumin/globulin ratio, serum GLOBULIN TOT 3.9 g/dL 2.3-3.5 H globulins, serum, total ALBUMIN 3.4 g/dL 3.4-5.0 albumin, serum PROTEIN, TOT 7.3 g/dL 6.4-8.2 protein, total, serum BUN/CREAT 31.2 RATIO 10-20 H urea nitrogen/creatinine ratio, serum GFRAA 97 mL/min >60 Glomerular Filtration rate GFR EST 80 mL/min >60 estimated glomerular filtration rate CREATININE 0.77 mg/dL 0.55-1.02 creatinine, serum BUN 24 mg/dL 7-18 H urea nitrogen, blood GLUCOSE SER 88 mg/dL 70-110 blood glucose Replaced Document: [facility] ECG Observations EKG INTERP Sinus Rhythm -Poor electrocardiogram R-wave progression -may interpretation be secondary to pulmonary disease consider old anterior infarct. Low voltage -possible pulmonary disease. ABNORMAL EKG T AXIS 43 deg T wave axis, electrocardiogram EKG QRS AXIS 20 deg QRS axis, electrocardiogram EKG PWAVAXIS 44 deg P wave axis, electrocardiogram QRS INTERVAL 96 ms QRS duration, electrocardiogram QT INTERVAL new path ms QT interval, electrocardiogram HI INTERVAL 174 ms HI interval, electrocardiogram EKGHRTRATE 89 BPM heart rate on electrocardiogram Lab Report: (P) Urinalysis, Complete WBC DIPSTK U Negative Negative leukocyte esterase, urine, by dipstick OCC BLD UR Negative Negative Occult Blood, urine NITRITE UA Negative Negative Nitrite Urine UROBILIURDIP Normal mg/dL Normal urobilinogen, urine, by dipstick PROTEIN, URN Negative Negative Albumin [Presence] in Urine PH URINE 5.0 5.0 - 8.0 pH, urine, semiquantitative SPEC GR URIN 1.020 1.002-1.030 specific gravity, urine KETONES URN Negative Negative ketones, urine, by test strip BILIRUBIN UR Negative Negative bilirubin, urine GLUCOSE UA Normal mg/dL Normal Glucose Urine CLARITY UR Clear Clear clarity, urine, point UA COLOR Yellow Yellow urine color Lab Report: Urinalysis, Complete MUCUS URINE RARE <or=2+ mucus on urinalysis BACTURMICRO 0 SEEN /hpf /[HPF] None Seen bacteria, urine, microscopic EPI CELL UR 0-5 SEEN /[LPF] 5-10 epithelial cells, urine RBCS MICRO U 0 SEEN 0-5 RBC urine by microscopy U/A,WBS,C&S 0 SEEN 0-5 Urinalysis, white blood cells, culture and sensitivity Lab Report: CBC W/Diff, Automated LYMPHCT AUTO 2.46 X10 3/UL 10*3/mm3 0.83-4.51 lymphocyte count, blood, automated ANC 6.5 X10 3/UL 10*3/mm3 2.0-7.7 neutrophil count, blood IMM GRANU % 0.400 % 0.0-0.9 immature granulocytes, percentage of total cells, blood BASOPHIL % 0.4 % 0-1 basophils as percent of blood leukocytes EOSINOPHIL % 3.4 % 0-5 eosinophils as percent of blood leukocytes MONOCYTE % 4.6 % 0-10 monocytes as percent of blood leukocytes LYMPHS % 25.0 % 19-41 lymphocytes as percent of blood leukocytes PMN % 66.2 % 47-70 neutrophils as percent of blood leukocytes MPV 10.2 fL 6.2-12.0 mean platelet volume PLATELETS 408 10*3/mm3 150-450 platelet count RDW-SD 46.5 fL 35.1-43.9 H red blood cell distribution width, size density RDW 13.6 % 11.6-14.6 red blood cell distribution width MCHC RBC 32.5 G/GL g/dL 32-36 mean corpuscular hemoglobin concentration, RBC MCH 31.3 pg 27.0-32.0 mean corpuscular hemoglobin, RBC MCV 96.4 fL 81-99 mean corpuscular volume, RBC HCT 40.3 % 37-47 hematocrit, blood HGB 13.1 g/dL 12.0-15.0 hemoglobin, blood RBC M/UL 4.18 10*6/uL 4.2-5.4 L red blood count WBC BLOOD 9.9 10*9/L 4.4-11.0 leukocyte (white blood cells) count, blood Microbiology: Culture, Urine [id number] . GE use only - for [employer] import when terms are not otherwise specified Plan of Care Type Date Detail Appointment 01:30 PM Marcelo BERRY, [address], [address], [place], [address], Pending order Urine Culture Pending order *UAC- Urinalysis, Complete w/ Micro Pending order *CBC with Differential Pending order *UAC- Urinalysis, Complete w/ Micro Pending order Urine Culture Pending order *Stool, Ova & Parasites Pending order *CDIF - Clostridium Diff. Toxin Stool Pending order *CUST - Culture Stool Pending order *WBC, Stool Pending order *UAC- Urinalysis, Complete w/ Micro Pending order Urine Culture Pending order Follow Up Appt 3 months Pending order *CBC w/Diff - oncology ONLY Pending order *CMP Complete Metabolic Panel Pending order *LDH -LDH (Lactate Dehydrogenase) Pending order *Uric Acid Blood Pending order *IMEL DOUGLAS + Prot Elec, Serum 1495 Pending order *MISC - Miscellaneous Lab Test #1 Pending order *CBC w/Diff - oncology ONLY Pending order *CMP Complete Metabolic Panel Pending order *LDH -LDH (Lactate Dehydrogenase) Pending order *Uric Acid Blood Pending order *IMEL DOUGLAS + Prot Elec, Serum 1495 Pending order *MISC - Miscellaneous Lab Test #1 Pending order Follow Up Appt Other Pending order Bone marrow; biopsy, needle or trocar Pending order *Prothrombin Time (PT) Pending Order excluded from report: Pending order *PTT-Partial Thromboplastin Time Pending order *PT/INR Pending order *Prothrombin Time (PT) Pending order *CBC with Differential Pending order *UPEP Pending order *IMFIXS Immunofixation, Serum [address] Head/Brain with and without Contrast Pending order Bone/Osseous survey; complete (axial and appendicular skeleton) Pending order EKG (In office) Pending order MMM Pending order Follow Up Appt 6 months Pending order Echocardiogram (complete) Procedures Code Procedure Name Date Entry Date CPT-82739 EKG (In office) 0184-1 *CBC with Differential CPT-23600 Urine Culture 59585-6 *UAC- Urinalysis, Complete w/ Micro 0786-1 *CMP Complete Metabolic Panel 3084-1 *Uric Acid Blood 2532-0 *LDH -LDH (Lactate Dehydrogenase) 0282-1 *IMEL DOUGLAS + Prot Elec, Serum 1495 0786-1 *CMP Complete Metabolic Panel 2532-0 *LDH -LDH (Lactate Dehydrogenase) 3084-1 *Uric Acid Blood 0282-1 *IMEL DOUGLAS + Prot Elec, Serum 1495 F/U Appt Follow Up Appt Other 6301-6 *PT/INR 6301-6 *Prothrombin Time (PT) Order excluded from report: 0184-1 *CBC with Differential 0722-1 *IMFIXS Immunofixation, Serum 1685 CPT-12699 EKG (In office) F/U MMM MMM FUA 6 months Follow Up Appt 6 months Echo Echocardiogram (complete) Vital Signs Date Name Value Unit Description BMI (Body Mass Index) 40.67 kg/m2 Body Mass Index [Ratio] Body Temperature 98.5 [degF] temperature E&M BP Diastolic 87 mm[Hg] blood pressure, diastolic - 8462-4 BP Systolic 135 mm[Hg] blood pressure, systolic - 8480-6 Heart Rate 98 /min pulse rate E&M - 8867-4 Height 65.5 [in_us] height E&M - 8302-2 Weight Measured 248.19 [lb_av] weight E&M - 3141-9 BSA (Body Surface Area) 2.23 body surface area Respiratory Rate 18 /min respiratory rate E&M - 9279-1 Body Temperature 36.72 Joi temperature in centigrade E&M Height 167.64 cm height in centimeters E&M Weight Measured 118.09 kg weight in kilograms E&M
--- OUTSIDE RECORDS SUMMARY | 2018-10-31 14:00 | XMS RPT_ITS | Clinical Summary ---
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 Abnormal 140664597 Active Yolande Lorena Kika Electrocardiogr electrocardi (SNOMED 0 RN am abnormal ogram CT) Recurrent 598710274 Active Marcelo A Recurrent bacterial (SNOMED 04/11 04/[address]) EMD TEACHER-C cystitis Flank pain, 414296239 Active Efewongbe Right flank right (SNOMED 04/08 04/[address]) Abnormal CBC 412531170 Active Efewongbe Full blood (SNOMED 04/08 04/08 B O[place] count abnormal CT) Hypothyroidi 03241358 Active Efewongbe Hypothyroidism sm (SNOMED 04/08 04/[address]) Dysuria 56802486 Active Yoanna Dysuria (SNOMED 04/08 04/[address]) BODY MASS Z68.41 Active Neva Muniz Body mass index INDEX (ICD-10-CM [place], (BMI) 40.0-44.9 ) PA-C 40.0-44.9, ADULT adult Abnormal 487052316 Active Aniyah Muniz Imaging of musculoskele (SNOMED 04/11 04/11 [place]oxanne musculoskeletal ivan system CT) system abnormal imaging Monoclonal 713476289 Active Aniyah M Monoclonal gammopathy (SNOMED 03/10 03/[address] [address]) (clinical) 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 Yolande Anand Nonrheumatic tricuspid (ICD-10-CM 12/20 12/20 RN tricuspid (valve) ) (valve) insufficienc insufficiency y Localized 262855677 Active Orlando S Localized edema edema (SNOMED 12/05 12/[address]) Adrenal 357726551 Active [place] S 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 Emil cortical y CT) hypofunction Hypertension 49989065 Inactive Orlando S Hypertensive (SNOMED 12/03 12/[address]) Problem excluded from report: Hx of syncope 412000070 Active Yolande A H/O: Disorder and collapse (SNOMED CT) Kika RN Hypertension 16139179 Removed Yolande A Hypertensive (SNOMED CT) Kika RN disorder Medications Medication Instructions Start Stop Generic Name [facility] Provider Date Date CIPRO 500 MG TABS 1 tablet Q12 CIPROFLOXACIN HCL 71600648304 Efewongbe 05/05 Osvaldo Hull MD MACROBID 100 MG CAPS One tablet by 2016/ NITROFURANTOIN 05562877950 Marcelo A mouth twice 04/11 04/18 MONOHYD MACRO Main daily 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 TEACHER-C WELLBUTRIN SR 150 MG One tablet by BUPROPION HCL 27349597645 Yolande A Kika [id number] mouth daily 12/03 RN POTASSIUM CHLORIDE One tablet by POTASSIUM CHLORIDE 96473454811 Yolande A Kika ER 20 MEQ CR-TABS mouth daily 12/03 RN VITAMIN D 2000 UNIT One tablet by CHOLECALCIFEROL 07160524945 Yolande A Kika TABS mouth daily 12/03 RN FUROSEMIDE 20 MG One tablet by FUROSEMIDE 55382020233 Yolande A Kika TABS mouth daily 12/03 RN FUROSEMIDE 20 MG One tablet by FUROSEMIDE 97020201928 Orlando S TABS mouth daily 12/03 12/05 MD Emil LASIX 20 MG TABS One tablet by FUROSEMIDE 48193581017 Orlando S mouth daily 12/05 MD Emil LASIX 20 MG TABS One tablet by 2015/ FUROSEMIDE 57368588929 Yolande A Kika mouth daily 12/05 12/20 RN POTASSIUM CHLORIDE One tablet by POTASSIUM CHLORIDE 56229263652 Orlando S TERA ER 10 MEQ mouth every 12/03 TERA CR MD Emil CR-TABS other day POTASSIUM CHLORIDE One tablet by 2015/ POTASSIUM CHLORIDE 16495547449 Yolande A Kika TERA ER 10 MEQ mouth every 12/03 12/20 TERA CR MARIELLA CR-TABS other day WELLBUTRIN XL 300 MG One tablet by BUPROPION HCL 50533746558 [place] S [id number] mouth daily 12/03 MD Emil WELLBUTRIN XL 300 MG One tablet by 2015/ BUPROPION HCL 39267613947 Earnest H [id number] mouth daily 12/03 03/19 Shahbaz DO CELEBREX 200 MG CAPS One tablet by CELECOXIB 37580296731 Yolande A Kika mouth daily 12/03 RN HYDROCHLOROTHIAZIDE PRN HYDROCHLOROTHIAZIDE 98190345221 Earnest H 12.5 MG TABS Shahbaz DO HYDROCHLOROTHIAZIDE PRN 2015/ HYDROCHLOROTHIAZIDE 41300163158 Juan M 12.5 MG TABS 05/15 Alam TRULICITY 0.75 DULAGLUTIDE 24584245651 Earnest H MG/0.5ML SOPN Shahbaz DO TRULICITY 0.75 2015/ DULAGLUTIDE 19281626317 Juan M MG/0.5ML SOPN 05/15 Alam NORCO 5-325 MG TABS 1 tablet by HYDROCODONE-ACETAMI 52208474682 Yolande A Kika mouth every 12/03 NOPHEN RN horus as needed NORCO 5-325 MG TABS 1 tablet by 2015/ HYDROCODONE-ACETAMI 25013696069 Juan M mouth every 12/03 NOPHEN Alam horus as needed PROVIGIL 200 MG TABS One tablet by MODAFINIL 90274021288 Orlando S mouth daily 12/05 MD Emil PROVIGIL 200 MG TABS One tablet by 2015/ MODAFINIL 02932975374 Juan M mouth daily 12/05 05/15 Alajohana SINGULAIR 10 MG TABS One tablet by MONTELUKAST SODIUM 29225662921 [place] S mouth daily 12/05 MD Emil SINGULAIR 10 MG TABS One tablet by 2015/ MONTELUKAST SODIUM 24296779032 Juan M mouth daily 12/05 05/15 Alajohana PULMICORT FLEXHALER Take as BUDESONIDE 92315291743 [place] S 180 MCG/ACT AEPB directed 12/05 MD Emil PULMICORT FLEXHALER Take as 2015/ BUDESONIDE 48202685870 Juan M 180 MCG/ACT AEPB directed 12/05 05/15 Alajohana LOULOU 180 MG TABS One tablet by FEXOFENADINE HCL [place] S mouth daily 12/05 MD Emil as needed LOULOU 180 MG TABS One tablet by 2015/ FEXOFENADINE HCL Juan M mouth daily 12/05 05/15 Alajohana as needed ALBUTEROL SULFATE via nebulizer ALBUTEROL SULFATE 21639918910 Orlando S (2.5 MG/3ML) 0.083% 12/05 MD Emil NEBBalta ALBUTEROL SULFATE via nebulizer 2015/ ALBUTEROL SULFATE 90828068051 Juan M (2.5 MG/3ML) 0.083% 12/05 05/15 Alajohana NEBU ULTRAM 50 MG TABS 1 tablet by TRAMADOL HCL 76544180722 Yolande A Kika mouth every 6 12/03 RN hours as needed ULTRAM 50 MG TABS 1 tablet by 2016/ TRAMADOL HCL 65031827034 Velvet D mouth every 6 12/03 08/29 Bales hours as needed AMRIX 15 MG PRN CYCLOBENZAPRINE HCL 70449662972 [facility] [id number] Shahbaz DO AMRIX 15 MG PRN CYCLOBENZAPRINE HCL 30387013596 Velvet D [id number] 04/08 Bales MELATONIN 5 MG TABS Two tablets MELATONIN 73232311827 Yolande Anand by mouth 12/03 RN daily as needed at bedtime VITAMIN D One tablet by ERGOCALCIFEROL 55761399675 Orlando S (ERGOCALCIFEROL) mouth weekly 12/03 MD Emil 18113 UNIT CAPS VITAMIN D3 2000 UNIT 5000 IU daily CHOLECALCIFEROL 16227637395 Orlando S CAPS 12/05 MD Emil PREDNISONE 5 MG TABS PREDNISONE 56710294254 [facility] DO OMEPRAZOLE 10 MG PRN OMEPRAZOLE 27404041185 [facility] CPDR [facility] DO SYNTHROID 50 MCG One tablet by LEVOTHYROXINE 03654329876 Juan M TABS mouth daily. SODIUM Alam MAGNESIUM 250 MG One tablet by MAGNESIUM 22607654031 Juan M TABS mouth daily Alam as needed. MULTIPLE VITAMINS One tablet by MULTIPLE VITAMIN 46478958840 Juan M TABS mouth daily. Alam VITAMIN D3 2000 UNIT One tablet by CHOLECALCIFEROL 55870424942 Juan M TABS mouth daily. Alam CELEBREX 200 MG CAPS One tablet by CELECOXIB 98453498540 Velvet D mouth daily 04/08 Amairani LEUCOVORIN CALCIUM 1 weekly LEUCOVORIN CALCIUM 40369202823 Velvet D 25 MG TABS 04/08 Amairani FOLIC ACID XTRA TABS One tablet by FOLIC 65064782750 Velvet D mouth daily 04/08 [id number] Amairani OLINE AMITRIPTYLINE HCL 25 One tablet by AMITRIPTYLINE HCL 97913660964 Velvet D MG TABS mouth daily 04/08 Amairani ASPIRIN 81 MG TBEC One tablet by ASPIRIN 55791549192 Velvet D mouth daily 04/08 Amairani TRIAMTERENE-HCTZ One tablet by TRIAMTERENE-HCTZ 53476818637 Velvet D 37.5-25 MG CAPS mouth daily 04/08 Amairani as needed Medications Administered No information available. Allergies, Adverse Reactions, Alerts Allergy Name Reaction Start Date Severity Status Provider Description MORPHINE SULFATE Severe Active Efewraziabe B (PF) Kurtis RENO DILANTIN Critical Active Velvet D Bales LYRICA Unknown No Longer Velvet D Bales Active TOPAMAX Unknown No Longer Velvet D Bales Active DILANTIN Unknown No Longer Velvet D Bales Active HONEYDEW MELON unknown Critical Active Yolande A Kika RN TOPAMAX unknown Critical No Longer Yolande A [...] albumin, serum by protein electrophoresis Lab Report: Farj-8-Lonckqdvetkme, S B2MI 1.9 mg/L 0.6-2.4 beta-2 microglobulin [...] ng/dL 0.76-1.46 thyroxine, serum, free Lab Report: DOUGLAS + Protein Elect, Serum [...] protein, total, serum by immunoelectrophoresis Lab Report: Lindsey Lambda Lt Chn Ser. Mon. FRKAPPALAMBR 0.67 0.26-1.65 free Lindsey/Lambda ratio FRLAMBDALTCH 1.884 mg/dL Units converted. See [...] NHIS SMOK STATUS Never smoker Tobacco use [facility] Replaced Document: Comprehensive Metabolic Profil BILI TOTAL 0.30 mg/dL 0.20-1.00 bilirubin, serum, total SGPT (ALT) 32 U/L 12-78 alanine aminotransferase (SGPT), serum ALK PHOS 112 U/L 45-117 alkaline phosphatase, serum SGOT (AST) 17 U/L 15-37 aspartate aminotransferase (SGOT), serum A/G RATIO 0.9 RATIO 0.9-2.4 albumin/globulin ratio, serum GLOBULIN TOT 3.9 g/dL 2.3-3.5 H globulins, serum, total ALBUMIN 3.4 g/dL 3.4-5.0 albumin, serum PROTEIN, TOT 7.3 g/dL 6.4-8.2 protein, total, serum Replaced Document: [facility]mark ECG Observations EKG INTERP [...] INTERVAL new path ms QT interval, electrocardiogram GA INTERVAL 174 ms GA interval, electrocardiogram EKGHRTRATE 89 BPM heart rate [...] 47-70 neutrophils as percent of blood leukocytes Microbiology: Culture, Urine [id number] . GE use only - for [employer] import when terms are not otherwise specified Microbiology: Ova and Parasites 8623 OVA PARASITE . ova and parasites identification, stool Lab Report: Basic Metabolic Profile (BMP) ANION GAP 9 5-15 anion gap, serum CO2 26.0 mmol/L 21.0-32.0 carbon dioxide, venous blood CHLORIDE 105 mmol/L 98-107 chloride, serum POTASSIUM 3.8 mmol/L 3.5-5.1 potassium, serum SODIUM 140 mmol/L 136-145 sodium, serum CALCIUM 8.4 mg/dL 8.5-10.1 L calcium, serum BUN/CREAT 17.5 RATIO 10-20 urea nitrogen/creatinine ratio, serum CCVCREABSA 69.11 mL/min calculated corrected value of creatinine clearance with body surface area GFRAA 101 mL/min >60 Glomerular Filtration rate GFR EST 84 mL/min >60 estimated glomerular filtration rate CREATININE 0.74 mg/dL 0.55-1.02 creatinine, serum BUN 13 mg/dL 7-18 urea nitrogen, blood GLUCOSE SER 118 mg/dL 70-110 H blood glucose Lab Report: Magnesium MAGNESIUM 1.9 mg/dL 1.8-2.4 magnesium, serum Lab Report: Hemoglobin A1c HGBA1C 6.4 % 4.2-6.3 H Hemoglobin A1c/Hemoglobin.total in Blood Lab Report: CBC-Complete Blood Cnt No Diff MPV 10.1 fL 6.2-12.0 mean platelet volume PLATELETS 267 10*3/mm3 150-450 platelet count RDW-SD 46.6 fL 35.1-43.9 H red blood cell distribution width, size density RDW 13.5 % 11.6-14.6 red blood cell distribution width MCHC RBC 31.4 G/GL g/dL 32-36 L mean corpuscular hemoglobin concentration, RBC MCH 30.8 pg 27.0-32.0 mean corpuscular hemoglobin, RBC MCV 98.2 fL 81-99 mean corpuscular volume, RBC HCT 32.2 % 37-47 L hematocrit, blood HGB 10.1 g/dL 12.0-15.0 L hemoglobin, blood RBC M/UL 3.28 10*6/uL 4.2-5.4 L red blood count WBC BLOOD 10.0 10*9/L 4.4-11.0 leukocyte (white blood cells) count, blood Lab Report: Bedside Glucose GLUCOSEPOC 109 mg/dL 70-110 glucose, point of care Plan of Care Type Date Detail Appointment 01:30 PM Marcelo Lorena Main 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
--- OUTSIDE RECORDS SUMMARY | 2018-10-31 14:00 | XMS RPT_ITS | Clinical Summary ---
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 Abnormal 997915753 Active Yolande Lorena Kika Electrocardiogr electrocardi (SNOMED 0 RN am abnormal ogram CT) Recurrent 046909887 Active Marcelo A Recurrent bacterial (SNOMED 04/11 04/[address]) DINKEY DISPATCHER-C cystitis Flank pain, 552303359 Active Efewongbe Right flank right (SNOMED 04/08 04/[address]) Abnormal CBC 258443269 Active Efewongbe Full blood (SNOMED 04/08 04/08 [address] count abnormal CT) Hypothyroidi 28555345 Active Efewongbe Hypothyroidism sm (SNOMED 04/08 04/[address]) Dysuria 24430928 Active Yoanna Dysuria (SNOMED 04/08 04/[address]) BODY MASS Z68.41 Active Neva Muniz Body mass index INDEX (ICD-10-CM [place], (BMI) 40.0-44.9 ) PA-C 40.0-44.9, ADULT adult Abnormal 252452862 Active Aniyah Muniz Imaging of musculoskele (SNOMED 04/11 04/11 [place]oxanne musculoskeletal ivan system CT) system abnormal imaging Monoclonal 165379394 Active Aniyah M Monoclonal gammopathy (SNOMED 03/10 03/[address] [place] [address]) (clinical) 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 Yolande Anand Nonrheumatic tricuspid (ICD-10-CM 12/20 12/20 RN tricuspid (valve) ) (valve) insufficienc insufficiency y Localized 827531777 Active Orlando S Localized edema edema (SNOMED 12/05 12/[address]) Adrenal 669409939 Active [place]um S 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 Emil cortical y CT) hypofunction Hypertension 14577821 Inactive Orlando S Hypertensive (SNOMED 12/03 12/[address]) Problem excluded from report: Hx of syncope 440136611 Active Yolande A H/O: Disorder and collapse (SNOMED CT) Kika RN Hypertension 92315343 Removed Yolande A Hypertensive (SNOMED CT) Kika RN disorder Medications Medication Instructions Start Stop Generic Name [facility] Provider Date Date CIPRO 500 MG TABS 1 tablet Q12 CIPROFLOXACIN HCL 74038274838 Efewongbe 05/05 Osvaldo Hull MD MACROBID 100 MG CAPS One tablet by 2016/ NITROFURANTOIN 20973076236 Marcelo A mouth twice 04/11 04/18 MONOHYD MACRO Main daily 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-C WELLBUTRIN SR 150 MG One tablet by BUPROPION HCL 78822303603 Yolande A Kika [id number] mouth daily 12/03 RN POTASSIUM CHLORIDE One tablet by POTASSIUM CHLORIDE 57077127409 Yolande A Kika ER 20 MEQ CR-TABS mouth daily 12/03 RN VITAMIN D 2000 UNIT One tablet by CHOLECALCIFEROL 98729667090 Yolande A Kika TABS mouth daily 12/03 RN FUROSEMIDE 20 MG One tablet by FUROSEMIDE 13490418636 Yolande A Kika TABS mouth daily 12/03 RN FUROSEMIDE 20 MG One tablet by FUROSEMIDE 09216894162 Orlando S TABS mouth daily 12/03 12/05 MD Emil LASIX 20 MG TABS One tablet by FUROSEMIDE 28188268158 Orlando S mouth daily 12/05 MD Emil LASIX 20 MG TABS One tablet by 2015/ FUROSEMIDE 69760074171 Yolande A Kika mouth daily 12/05 12/20 RN POTASSIUM CHLORIDE One tablet by POTASSIUM CHLORIDE 52917896783 Orlando S TERA ER 10 MEQ mouth every 12/03 TERA CR MD Emil CR-TABS other day POTASSIUM CHLORIDE One tablet by 2015/ POTASSIUM CHLORIDE 47174824888 Yolande A Kika TERA ER 10 MEQ mouth every 12/03 12/20 TERA CR MARIELLA CR-TABS other day WELLBUTRIN XL 300 MG One tablet by BUPROPION HCL 85392564803 Odum S [id number] mouth daily 12/03 MD Emil WELLBUTRIN XL 300 MG One tablet by 2015/ BUPROPION HCL 96335707810 Earnest H [id number]-RSR mouth daily 12/03 03/19 Shahbaz DO CELEBREX 200 MG CAPS One tablet by CELECOXIB 32064416879 Yolande A Kika mouth daily 12/03 RN HYDROCHLOROTHIAZIDE PRN HYDROCHLOROTHIAZIDE 90066069750 Earnest H 12.5 MG TABS Shahbaz DO HYDROCHLOROTHIAZIDE PRN 2015/ HYDROCHLOROTHIAZIDE 49792814645 Juan M 12.5 MG TABS 05/15 Alam TRULICITY 0.75 DULAGLUTIDE 28556556409 Earnest H MG/0.5ML SOPN Shahbaz DO TRULICITY 0.75 2015/ DULAGLUTIDE 99335718849 Juan M MG/0.5ML SOPN 05/15 Alam NORCO 5-325 MG TABS 1 tablet by HYDROCODONE-ACETAMI 25503406373 Yolande A Kika mouth every 12/03 NOPHEN RN horus as needed NORCO 5-325 MG TABS 1 tablet by 2015/ HYDROCODONE-ACETAMI 98239913998 Juan M mouth every 12/03 NOPHEN Alam horus as needed PROVIGIL 200 MG TABS One tablet by MODAFINIL 06956450560 Orlando S mouth daily 12/05 MD Emil PROVIGIL 200 MG TABS One tablet by 2015/ MODAFINIL 06459223541 Juan M mouth daily 12/05 05/15 Alajohana SINGULAIR 10 MG TABS One tablet by MONTELUKAST SODIUM 41768602060 Odum S mouth daily 12/05 MD Emil SINGULAIR 10 MG TABS One tablet by 2015/ MONTELUKAST SODIUM 92914040029 Juan M mouth daily 12/05 05/15 Alajohana PULMICORT FLEXHALER Take as BUDESONIDE 69971265919 Odum S 180 MCG/ACT AEPB directed 12/05 MD Emil PULMICORT FLEXHALER Take as 2015/ BUDESONIDE 29645602478 Juan M 180 MCG/ACT AEPB directed 12/05 05/15 Alajohana LOULOU 180 MG TABS One tablet by FEXOFENADINE HCL Odum S mouth daily 12/05 MD Emil as needed LOULOU 180 MG TABS One tablet by 2015/ FEXOFENADINE HCL Ujan M mouth daily 12/05 05/15 Alajohana as needed ALBUTEROL SULFATE via nebulizer ALBUTEROL SULFATE 22788540617 Orlando S (2.5 MG/3ML) 0.083% 12/05 MD Emil NEBBalta ALBUTEROL SULFATE via nebulizer 2015/ ALBUTEROL SULFATE 81710216105 Juan M (2.5 MG/3ML) 0.083% 12/05 05/15 Alajohana NEBU ULTRAM 50 MG TABS 1 tablet by TRAMADOL HCL 49212507681 Yolande A Kika mouth every 6 12/03 RN hours as needed ULTRAM 50 MG TABS 1 tablet by 2016/ TRAMADOL HCL 70037788093 Velvet D mouth every 6 12/03 08/29 Bales hours as needed AMRIX 15 MG PRN CYCLOBENZAPRINE HCL 66069850676 [facility] [id number] Shahbaz DO AMRIX 15 MG PRN CYCLOBENZAPRINE HCL 01518958945 Velvet D [id number] 04/08 Bales MELATONIN 5 MG TABS Two tablets MELATONIN 28153145733 Yolande Anand by mouth 12/03 RN daily as needed at bedtime VITAMIN D One tablet by ERGOCALCIFEROL 23823408690 Orlando S (ERGOCALCIFEROL) mouth weekly 12/03 MD Emil 58089 UNIT CAPS VITAMIN D3 2000 UNIT 5000 IU daily CHOLECALCIFEROL 66358829131 Orlando S CAPS 12/05 MD Emil PREDNISONE 5 MG TABS PREDNISONE 23402163336 [facility] DO OMEPRAZOLE 10 MG PRN OMEPRAZOLE 72938879377 [facility] CPDR [facility] DO SYNTHROID 50 MCG One tablet by LEVOTHYROXINE 91222173745 Juan M TABS mouth daily. SODIUM Alam MAGNESIUM 250 MG One tablet by MAGNESIUM 32488791020 Juan M TABS mouth daily Alam as needed. MULTIPLE VITAMINS One tablet by MULTIPLE VITAMIN 72276523361 Juan M TABS mouth daily. Alam VITAMIN D3 2000 UNIT One tablet by CHOLECALCIFEROL 13489536774 Juan M TABS mouth daily. Alam CELEBREX 200 MG CAPS One tablet by CELECOXIB 93504627652 Velvet D mouth daily 04/08 Amairani LEUCOVORIN CALCIUM 1 weekly LEUCOVORIN CALCIUM 28769770571 Velvet D 25 MG TABS 04/08 Amairani FOLIC ACID XTRA TABS One tablet by FOLIC 14166426719 Velvet D mouth daily 04/08 [id number] Amairani OLINE AMITRIPTYLINE HCL 25 One tablet by AMITRIPTYLINE HCL 71337286305 Velvet D MG TABS mouth daily 04/08 Amairani ASPIRIN 81 MG TBEC One tablet by ASPIRIN 28999921434 Velvet D mouth daily 04/08 Amairani TRIAMTERENE-HCTZ One tablet by TRIAMTERENE-HCTZ 92553101298 Velvet D 37.5-25 MG CAPS mouth daily [...] albumin, serum by protein electrophoresis Lab Report: Ntrd-1-Herwglyokqijq, S B2MI 1.9 mg/L 0.6-2.4 beta-2 microglobulin [...] protein, total, serum by immunoelectrophoresis Lab Report: [place] Lambda Lt Chn Ser. Mon. FRKAPPALAMBR 0.67 0.26-1.65 free [place]/Lambda ratio FRLAMBDALTCH 1.884 mg/dL Units converted. 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
--- OUTSIDE RECORDS SUMMARY | 2018-10-31 14:01 | XMS RPT_ITS | Clinical Summary ---
:1950 Author Organization Former[facility], [facility] Address [address] [place] [address] Phone Care Team Providers Name Role Phone Yolande Aannd RN Unavailable Unavailable Conditions or Problems Problem Name Problem Onset Status Entry Provider Comment Standard Annotate Code Date Date Description Diarrhea, 91047484 Active Marcelo A Diarrhea recurrent (SNOMED 05/[address]) STATUS CONTROLLER-C Abnormal 717705720 Active Yolande Anand Electrocardiogr electrocardi (SNOMED RN am abnormal ogram CT) Recurrent 121845629 Active Marcelo A Recurrent bacterial (SNOMED 04/11 04/[address]) STATUS CONTROLLER-C cystitis Flank pain, 124418415 Active Efewongbe Right flank right (SNOMED 04/08 04/[address]) Abnormal CBC 293809029 Active Efewongbe Full blood (SNOMED 04/08 04/08 B [place] count abnormal CT) Hypothyroidi 95415102 Active Efewongbe Hypothyroidism sm (SNOMED 04/08 04/[address]) Dysuria 24454127 Active Efewongbe Dysuria (SNOMED 04/08 04/[address]) BODY MASS Z68.41 Active Neva Muniz Body mass index INDEX (ICD-10-CM [place], (BMI) 40.0-44.9 ) PA-C 40.0-44.9, ADULT adult Abnormal 374443424 Active Aniyah Muniz Imaging of musculoskele (SNOMED 04/11 04/11 [place] musculoskeletal ivan system CT) system abnormal imaging Monoclonal 461935463 Active Aniyah M Monoclonal gammopathy (SNOMED 03/10 03/[address] [place] [address]) (clinical) 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 Yolande Lorena Kika Nonrheumatic tricuspid (ICD-10-CM 12/20 12/20 RN tricuspid (valve) ) (valve) insufficienc insufficiency y Localized 427561962 Active [place] S Localized edema edema (SNOMED 12/05 12/[address]) Adrenal 580217821 Active [place] S 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 Emil cortical y CT) hypofunction Hypertension 84073338 Inactive [place] S Hypertensive (SNOMED 12/03 12/[address]) Problem excluded from report: Hx of syncope 419258861 Active Yolande A H/O: Disorder and collapse (SNOMED CT) Kika RN Hypertension 11979372 Removed Yolande Carrillo Hypertensive (SNOMED CT) Kika RN disorder Medications Medication Instructions Start Stop Generic Name NDC Provider Date Date CIPRO 500 MG TABS 1 tablet Q12 CIPROFLOXACIN HCL 79142991572 Efewongbe 05/05 Osvaldo Hull MD MACROBID 100 MG CAPS One tablet by 2016/ NITROFURANTOIN 75714404147 Marcelo A mouth twice 04/11 04/18 MONOHYD MACRO Main daily STATUS CONTROLLER-C WELLBUTRIN SR 150 MG One tablet by BUPROPION HCL 56741551649 Yolande A Kika [id number] mouth daily 12/03 RN POTASSIUM CHLORIDE One tablet by POTASSIUM CHLORIDE 93824504236 Yolande A Kika ER 20 MEQ CR-TABS mouth daily 12/03 RN VITAMIN D 2000 UNIT One tablet by CHOLECALCIFEROL 03326477890 Yolande A Kika TABS mouth daily 25 RN FUROSEMIDE 20 MG One tablet by FUROSEMIDE 00596009978 Yolande A Kika TABS mouth daily 12/03 RN FUROSEMIDE 20 MG One tablet by FUROSEMIDE 01189498252 [place] S TABS mouth daily 12/03 12/05 MD Emil LASIX 20 MG TABS One tablet by FUROSEMIDE 58925797389 [place] S mouth daily 12/05 MD Emil LASIX 20 MG TABS One tablet by FUROSEMIDE 01803550332 Yolande A Kika mouth daily 12/05 12/20 RN POTASSIUM CHLORIDE One tablet by POTASSIUM CHLORIDE 36320871438 [place] S TERA ER 10 MEQ mouth every 12/03 TERA CR MD Emil CR-TABS other day POTASSIUM CHLORIDE One tablet by 2015/ POTASSIUM CHLORIDE 49134233581 Yolande A Kika TERA ER 10 MEQ mouth every 12/03 12/20 TERA CR MARIELLA CR-TABS other day WELLBUTRIN XL 300 MG One tablet by BUPROPION HCL 00288540064 [place] S [id number] mouth daily 12/03 MD Emil WELLBUTRIN XL 300 MG One tablet by 2015/ BUPROPION HCL 78341941005 Earnest H [id number] mouth daily 12/03 03/19 Shahbaz DO CELEBREX 200 MG CAPS One tablet by CELECOXIB 99151935087 Yolande A Kika mouth daily 12/03 RN HYDROCHLOROTHIAZIDE PRN HYDROCHLOROTHIAZIDE 82486132336 Earnest H 12.5 MG TABS Shahbaz DO HYDROCHLOROTHIAZIDE PRN 2015/ HYDROCHLOROTHIAZIDE 96468898728 Juan M 12.5 MG TABS 05/15 Alam TRULICITY 0.75 DULAGLUTIDE 06830635489 Earnest H MG/0.5ML SOPN Shahbaz DO TRULICITY 0.75 2015/ DULAGLUTIDE 96211690097 Juan M MG/0.5ML SOPN 05/15 Alam NORCO 5-325 MG TABS 1 tablet by HYDROCODONE-ACETAMI 94911626565 Yolande A Kika mouth every 12/03 NOPHEN RN horus as needed NORCO 5-325 MG TABS 1 tablet by 2015/ HYDROCODONE-ACETAMI 56459115652 Juan M mouth every 12/03 NOPHEN Alam horus as needed PROVIGIL 200 MG TABS One tablet by MODAFINIL 84928896243 [place] S mouth daily 12/05 MD Emil PROVIGIL 200 MG TABS One tablet by 2015/ MODAFINIL 40264914159 Juan M mouth daily 12/05 05/15 Alam SINGULAIR 10 MG TABS One tablet by MONTELUKAST SODIUM 99264328540 [place] S mouth daily 12/05 MD Emil SINGULAIR 10 MG TABS One tablet by 2015/ MONTELUKAST SODIUM 56228255302 Juan M mouth daily 12/05 05/15 Alajohana PULMICORT FLEXHALER Take as BUDESONIDE 11522592931 [place] S 180 MCG/ACT AEPB directed 12/05 MD Emil PULMICORT FLEXHALER Take as 2015/ BUDESONIDE 04401681553 Juan M 180 MCG/ACT AEPB directed 12/05 05/15 Alam LOULOU 180 MG TABS One tablet by FEXOFENADINE HCL [place] S mouth daily 12/05 MD Emil as needed LOULOU 180 MG TABS One tablet by 2015/ FEXOFENADINE HCL Juan M mouth daily 12/05 05/15 Alajohana as needed ALBUTEROL SULFATE via nebulizer ALBUTEROL SULFATE 91359624859 [place] S (2.5 MG/3ML) 0.083% 12/05 MD Emil NEBU ALBUTEROL SULFATE via nebulizer 2015/ ALBUTEROL SULFATE 56918549585 Juan M (2.5 MG/3ML) 0.083% 12/05 05/15 Alajohana NEBU ULTRAM 50 MG TABS 1 tablet by TRAMADOL HCL 91420709677 Yolande A Kika mouth every 6 12/03 RN hours as needed ULTRAM 50 MG TABS 1 tablet by 2016/ TRAMADOL HCL 48337082500 [place] D mouth every 6 12/03 08/29 [place] hours as needed AMRIX 15 MG PRN CYCLOBENZAPRINE HCL 34627440884 [facility] H [id number] Shahbaz DO AMRIX 15 MG PRN 2017/ CYCLOBENZAPRINE HCL 17542771490 Velvet D [id number] 04/08 Amairani MELATONIN 5 MG TABS Two tablets MELATONIN 33820015794 Yolande Anand by mouth 12/03 RN daily as needed at bedtime VITAMIN D One tablet by ERGOCALCIFEROL 68461254832 [place] S (ERGOCALCIFEROL) mouth weekly 12/03 MD Emil 10918 UNIT CAPS VITAMIN D3 2000 UNIT 5000 IU daily CHOLECALCIFEROL 65747771768 [place] S CAPS 12/05 MD Emil PREDNISONE 5 MG TABS PREDNISONE 78399661173 [facility] Shahbaz DO OMEPRAZOLE 10 MG PRN OMEPRAZOLE 90300827162 [facility] CPDR Shahbaz DO SYNTHROID 50 MCG One tablet by LEVOTHYROXINE 13325107355 Juan M TABS mouth daily. SODIUM Alam MAGNESIUM 250 MG One tablet by MAGNESIUM 66153956899 Juan M TABS mouth daily Alam as needed. MULTIPLE VITAMINS One tablet by MULTIPLE VITAMIN 03230952114 Juan M TABS mouth daily. Alam VITAMIN D3 2000 UNIT One tablet by CHOLECALCIFEROL 69309028954 Juan M TABS mouth daily. Alam CELEBREX 200 MG CAPS One tablet by CELECOXIB 39395659939 [place] D mouth daily 04/08 Amairani LEUCOVORIN CALCIUM 1 weekly LEUCOVORIN CALCIUM 68412748436 Velvet D 25 MG TABS 04/08 Amairani FOLIC ACID XTRA TABS One tablet by FOLIC 54466816407 [place] D mouth daily 04/08 [id number] Amairani OLINE AMITRIPTYLINE HCL 25 One tablet by AMITRIPTYLINE HCL 79257192510 Velvet D MG TABS mouth daily 04/08 Amairani ASPIRIN 81 MG TBEC One tablet by ASPIRIN 01079257035 Velvet D mouth daily 04/08 Amairani TRIAMTERENE-HCTZ One tablet by TRIAMTERENE-HCTZ 56574054117 Velvet D 37.5-25 MG CAPS mouth daily [...] Active HONEYDEW MELON unknown Critical Active Yolande Lorena Anand RN TOPAMAX unknown Critical No Longer Yolande [...] albumin, serum by protein electrophoresis Lab Report: Dsmy-1-Jczsbqwgfpxkq, S B2MI 1.9 mg/L 0.6-2.4 beta-2 microglobulin [...] protein, total, serum by immunoelectrophoresis Lab Report: [place] Lambda Lt Chn Ser. Mon. FRKAPPALAMBR 0.67 0.26-1.65 free [place]/Lambda ratio FRLAMBDALTCH 1.884 mg/dL Units converted. See [...] Never smoker Tobacco use [facility] Lab Report: (P) Urinalysis, Complete WBC DIPSTK U . Negative H leukocyte esterase, urine, by dipstick OCC BLD UR . Negative H Occult Blood, urine NITRITE UA . Negative H Nitrite Urine UROBILIURDIP . mg/dL Normal urobilinogen, urine, by dipstick PROTEIN, URN . Negative Albumin [Presence] in Urine PH URINE . 5.0 - 8.0 pH, urine, semiquantitative SPEC GR URIN . 1.002-1.030 specific gravity, urine KETONES URN . Negative ketones, urine, by test strip BILIRUBIN UR . Negative bilirubin, urine GLUCOSE UA . mg/dL Normal Glucose Urine CLARITY UR . Clear clarity, urine, point UA COLOR . Yellow urine color Replaced Document: CBC W/Diff, Automated LYMPHCT AUTO 3.71 X10 3/UL 10*3/mm3 0.83-4.51 lymphocyte count, blood, automated ANC 3.3 X10 3/UL 10*3/mm3 2.0-7.7 neutrophil count, blood IMM GRANU % 0.200 % 0.0-0.9 immature granulocytes, percentage of total cells, blood BASOPHIL % 0.7 % 0-1 basophils as percent of blood leukocytes EOSINOPHIL % 7.2 % 0-5 H eosinophils as percent of blood leukocytes MONOCYTE % 6.0 % 0-10 monocytes as percent of blood leukocytes LYMPHS % 45.5 % 19-41 H lymphocytes as percent of blood leukocytes PMN % 40.4 % 47-70 L neutrophils as percent of blood leukocytes MPV 9.7 fL 6.2-12.0 mean platelet volume PLATELETS 379 10*3/mm3 150-450 platelet count RDW-SD 49.3 fL 35.1-43.9 H red blood cell distribution width, size density RDW 13.8 % 11.6-14.6 red blood cell distribution width MCHC RBC 31.0 G/GL g/dL 32-36 L mean corpuscular hemoglobin concentration, RBC MCH 30.2 pg 27.0-32.0 mean corpuscular hemoglobin, RBC MCV 97.3 fL 81-99 mean corpuscular volume, RBC HCT 40.3 % 37-47 hematocrit, blood HGB 12.5 g/dL 12.0-15.0 hemoglobin, blood RBC M/UL 4.14 10*6/uL 4.2-5.4 L red blood count WBC BLOOD 8.2 10*9/L 4.4-11.0 leukocyte (white blood cells) count, blood Replaced Document: Comprehensive Metabolic Profil ANION GAP [...] GLUCOSE SER 88 mg/dL 70-110 blood glucose Lab Report: Urinalysis, Complete MUCUS URINE . <or=2+ mucus on urinalysis BACTURMICRO . /hpf /[HPF] None Seen bacteria, urine, microscopic EPI CELL UR . /[LPF] 5-10 epithelial cells, urine RBCS MICRO U . 0-5 RBC urine by microscopy U/A,WBS,C&S . 0-5 Urinalysis, white blood cells, culture and sensitivity Replaced Document: Midmark ECG Observations EKG INTERP Sinus Rhythm -Poor electrocardiogram R-wave progression -may interpretation be secondary to pulmonary disease consider old anterior infarct. Low voltage -possible pulmonary disease. ABNORMAL EKG T AXIS 43 deg T wave axis, electrocardiogram EKG QRS AXIS 20 deg QRS axis, electrocardiogram EKG PWAVAXIS 44 deg P wave axis, electrocardiogram QRS INTERVAL 96 ms QRS duration, electrocardiogram ZZ-GE-unk 398 ms GE use only - for LinkLogic import when terms are not otherwise specified QT INTERVAL new path ms QT interval, electrocardiogram [place] INTERVAL 174 ms [place] interval, electrocardiogram EKGHRTRATE 89 BPM heart rate on electrocardiogram Plan of Care Type Date Detail Appointment 01:30 PM Marcelo WARREN-Luis E, [address], [address], [place], [address], Pending order Urine Culture Pending order *UAC- [...] Procedures Code Procedure Name Date Entry Date CPT-50153 EKG (In office) 0786-1 *CMP Complete Metabolic Panel 3084-1 *Uric [...] with Differential 0722-1 *IMFIXS Immunofixation, Serum 1685 CPT-88272 EKG (In office) F/U MMM MMM FUA [...]
--- OUTSIDE RECORDS SUMMARY | 2018-10-31 14:01 | XMS RPT_ITS | Clinical Summary ---
:1950 Author Organization [facility], [facility] Address [facility] [place] [address] Phone Care Team Providers Name Role Phone Main DURABLE MEDICAL EQUIPMENT 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, Marcelo A Unavailable 330 Conditions or Problems Problem Name Problem Onset Status Entry Provider Comment Standard Annotate Code Date Date Description Diarrhea, 13133782 Active Marcelo A Diarrhea recurrent (SNOMED 05/[address]) DURABLE MEDICAL EQUIPMENT 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 Abnormal 421378712 Active Yolande Carrillo Kika Electrocardiogr electrocardi (SNOMED RN am abnormal ogram CT) Recurrent 475011749 Active Marcelo A Recurrent bacterial (SNOMED 04/11 04/[address]) DURABLE MEDICAL EQUIPMENT 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 cystitis Flank pain, 220311001 Active Efewongbe Right flank right (SNOMED 04/08 04/[address]) Abnormal CBC 005815125 Active Efewongbe Full blood (SNOMED 04/08 04/08 B [place] count abnormal CT) Hypothyroidi 26622656 Active Efewongbe Hypothyroidism sm (SNOMED 04/08 04/[address]) Dysuria 88596892 Active Efewongbe Dysuria (SNOMED 04/08 04/[address]) BODY MASS Z68.41 Active Neva Muniz Body mass index INDEX (ICD-10-CM [place], (BMI) 40.0-44.9 ) PA-C 40.0-44.9, ADULT adult Abnormal 321470849 Active Aniyah Muniz Imaging of musculoskele (SNOMED 04/11 04/11 [place] musculoskeletal ivan system CT) system abnormal imaging Monoclonal 604270737 Active Aniyah M Monoclonal gammopathy (SNOMED 03/10 03/[address]) (clinical) 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 Yolandebernice Anand Nonrheumatic tricuspid (ICD-10-CM 12/20 12/20 RN tricuspid (valve) ) (valve) insufficienc insufficiency y Localized 591496390 Active [place] S Localized edema edema (SNOMED 12/05 12/[address]) Adrenal 407061009 Active [place] S 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 Emil cortical y CT) hypofunction Hypertension 63749101 Inactive [place] S Hypertensive (SNOMED 12/03 12/[address]) Problem excluded from report: Hx of syncope 304198350 Active Yolande A H/O: Disorder and collapse (SNOMED CT) Kika RN Hypertension 31049298 Removed Yolande A Hypertensive (SNOMED CT) Kika RN disorder Medications Medication Instructions Start Stop Generic Name ND Provider Date Date CIPRO 500 MG TABS 1 tablet Q12 CIPROFLOXACIN HCL 67755522840 Efewongbe 05/05 B Kurtis RENO MACROBID 100 MG CAPS One tablet by 2016/ NITROFURANTOIN 98808212432 Marcelo A mouth twice 04/11 04/18 MONOHYD MACRO Main daily DURABLE MEDICAL EQUIPMENT 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 WELLBUTRIN SR 150 MG One tablet by BUPROPION HCL 97236922486 Yolande A Kika [id number] mouth daily 12/03 RN POTASSIUM CHLORIDE One tablet by POTASSIUM CHLORIDE 21998178660 Yolande A Kika ER 20 MEQ CR-TABS mouth daily 12/03 RN VITAMIN D 2000 UNIT One tablet by CHOLECALCIFEROL 64946844242 Yolande A Kika TABS mouth daily 25 RN FUROSEMIDE 20 MG One tablet by FUROSEMIDE 92114125652 Yolande A Kika TABS mouth daily 12/03 RN FUROSEMIDE 20 MG One tablet by FUROSEMIDE 38233290890 [place] S TABS mouth daily 12/03 12/05 MD Emil LASIX 20 MG TABS One tablet by FUROSEMIDE 39577284645 [place] S mouth daily 12/05 MD Emil LASIX 20 MG TABS One tablet by FUROSEMIDE 09218216212 Yolande A Kika mouth daily 12/05 12/20 RN POTASSIUM CHLORIDE One tablet by POTASSIUM CHLORIDE 66880805482 [place] S TERA ER 10 MEQ mouth every 12/03 TERA CR MD Emil CR-TABS other day POTASSIUM CHLORIDE One tablet by 2015/ POTASSIUM CHLORIDE 48038516817 Yolande A Kika TERA ER 10 MEQ mouth every 12/03 12/20 TERA CR MARIELLA CR-TABS other day WELLBUTRIN XL 300 MG One tablet by BUPROPION HCL 74032048303 [place] S [id number] mouth daily 12/03 MD Emil WELLBUTRIN XL 300 MG One tablet by 2015/ BUPROPION HCL 05910152592 Earnest H [id number] mouth daily 12/03 03/19 Shahbaz DO CELEBREX 200 MG CAPS One tablet by CELECOXIB 89459976640 Yolande A Kika mouth daily 12/03 RN HYDROCHLOROTHIAZIDE PRN HYDROCHLOROTHIAZIDE 02287943890 Earnest H 12.5 MG TABS Shahbaz DO HYDROCHLOROTHIAZIDE PRN 2015/ HYDROCHLOROTHIAZIDE 36775131640 Juan M 12.5 MG TABS 05/15 Alam TRULICITY 0.75 DULAGLUTIDE 75776289986 Earnest H MG/0.5ML SOPN Shahbaz DO TRULICITY 0.75 2015/ DULAGLUTIDE 49406405768 Juan M MG/0.5ML SOPN 05/15 Alam NORCO 5-325 MG TABS 1 tablet by HYDROCODONE-ACETAMI 99649382540 Yolande A Kika mouth every 12/03 NOPHEN RN horus as needed NORCO 5-325 MG TABS 1 tablet by 2015/ HYDROCODONE-ACETAMI 28474889713 Juan M mouth every 12/03 NOPHEN Alam horus as needed PROVIGIL 200 MG TABS One tablet by MODAFINIL 64094856051 [place] S mouth daily 12/05 MD Emil PROVIGIL 200 MG TABS One tablet by 2015/ MODAFINIL 34561086690 Juan M mouth daily 12/05 05/15 Alam SINGULAIR 10 MG TABS One tablet by MONTELUKAST SODIUM 93257184513 [place] S mouth daily 12/05 MD Emil SINGULAIR 10 MG TABS One tablet by 2015/ MONTELUKAST SODIUM 32946518695 Juan M mouth daily 12/05 05/15 Alajohana PULMICORT FLEXHALER Take as BUDESONIDE 60145788423 [place] S 180 MCG/ACT AEPB directed 12/05 MD Emil PULMICORT FLEXHALER Take as 2015/ BUDESONIDE 65940245749 Juan M 180 MCG/ACT AEPB directed 12/05 05/15 Alajohana LOULOU 180 MG TABS One tablet by FEXOFENADINE HCL [place] S mouth daily 12/05 MD Emil as needed LOULOU 180 MG TABS One tablet by 2015/ FEXOFENADINE HCL Juan M mouth daily 12/05 05/15 Alajohana as needed ALBUTEROL SULFATE via nebulizer ALBUTEROL SULFATE 18447179625 [place] S (2.5 MG/3ML) 0.083% 12/05 MD Emil NEBU ALBUTEROL SULFATE via nebulizer 2015/ ALBUTEROL SULFATE 58677048215 Juan M (2.5 MG/3ML) 0.083% 12/05 05/15 Alajohana NEBU ULTRAM 50 MG TABS 1 tablet by TRAMADOL HCL 69612369464 Yolande A Kika mouth every 6 12/03 RN hours as needed ULTRAM 50 MG TABS 1 tablet by 2016/ TRAMADOL HCL 21295474867 Velvet D mouth every 6 12/03 08/29 [place] hours as needed AMRIX 15 MG PRN CYCLOBENZAPRINE HCL 68208418617 [facility] [id number] Shahbaz DO AMRIX 15 MG PRN 2017/ CYCLOBENZAPRINE HCL 26782011352 Velvet D [id number] 04/08 Amairani MELATONIN 5 MG TABS Two tablets MELATONIN 80615844602 Yolande Anand by mouth 12/03 RN daily as needed at bedtime VITAMIN D One tablet by ERGOCALCIFEROL 16747236368 [place] S (ERGOCALCIFEROL) mouth weekly 12/03 MD Emil 53471 UNIT CAPS VITAMIN D3 2000 UNIT 5000 IU daily CHOLECALCIFEROL 02058719364 [place] S CAPS 12/05 MD Emil PREDNISONE 5 MG TABS PREDNISONE 47416581257 [facility] Shahbaz DO OMEPRAZOLE 10 MG PRN OMEPRAZOLE 52801323787 [facility] CPDR Shahbaz DO SYNTHROID 50 MCG One tablet by LEVOTHYROXINE 23377704705 Juan M TABS mouth daily. SODIUM Alam MAGNESIUM 250 MG One tablet by MAGNESIUM 24634396927 Juan M TABS mouth daily Alam as needed. MULTIPLE VITAMINS One tablet by MULTIPLE VITAMIN 17034231636 Juan M TABS mouth daily. Alam VITAMIN D3 2000 UNIT One tablet by CHOLECALCIFEROL 13526831211 Juan M TABS mouth daily. Alam CELEBREX 200 MG CAPS One tablet by CELECOXIB 05229058002 Velvet D mouth daily 04/08 Amairani LEUCOVORIN CALCIUM 1 weekly LEUCOVORIN CALCIUM 27504073857 Velvet D 25 MG TABS 04/08 Amairani FOLIC ACID XTRA TABS One tablet by FOLIC 68752482286 Velvet D mouth daily 04/08 [id number] Amairani OLINE AMITRIPTYLINE HCL 25 One tablet by AMITRIPTYLINE HCL 83267202311 Velvet D MG TABS mouth daily 04/08 Amairani ASPIRIN 81 MG TBEC One tablet by ASPIRIN 35946345904 Velvet D mouth daily 04/08 Amairani TRIAMTERENE-HCTZ One tablet by TRIAMTERENE-HCTZ 50642591526 Velvet D 37.5-25 MG CAPS mouth daily [...] Amairani Active HONEYDEW MELON unknown Critical Active Yolandebernice Anand RN TOPAMAX unknown Critical No Longer [...] albumin, serum by protein electrophoresis Lab Report: Aqyn-1-Ubklzvcjiiuxk, S B2MI 1.9 mg/L 0.6-2.4 beta-2 microglobulin [...] protein, total, serum by immunoelectrophoresis Lab Report: [place] Lambda Lt Chn Ser. Mon. FRKAPPALAMBR 0.67 0.26-1.65 free [place]/Lambda ratio FRLAMBDALTCH 1.884 mg/dL Units converted. See [...] NHIS SMOK STATUS Never smoker Tobacco use [facility] Replaced Document: Comprehensive Metabolic Profil ANION GAP [...] INTERVAL new path ms QT interval, electrocardiogram [place] INTERVAL 174 ms [place] interval, electrocardiogram EKGHRTRATE 89 BPM heart rate [...] leukocyte (white blood cells) count, blood Microbiology: ENTERIC PATHOGEN PANEL STOOL ZZ-GE-[id number] . GE use only - for LinkLogic import when terms are not otherwise specified Plan of Care Type Date Detail Appointment 01:30 PM Marcelo WARREN-Luis E, [address], [address], [place], [address], Pending order Urine Culture Pending order *UAC- [...] Procedures Code Procedure Name Date Entry Date CPT-90685 EKG (In office) 0184-1 *CBC with Differential CPT-27369 Urine Culture 19411-5 *UAC- Urinalysis, Complete w/ Micro 0786-1 *CMP [...] with Differential 0722-1 *IMFIXS Immunofixation, Serum 1685 CPT-16122 EKG (In office) F/U MMM MMM FUA [...]
--- OUTSIDE RECORDS SUMMARY | 2018-10-31 14:01 | XMS RPT_ITS | Clinical Summary ---
:1950 Author Organization Formerly [facility], [facility] Address [address] [place] [address] Phone Care Team Providers Name Role Phone Etelvina CHISEL TRIMMER-C, Marcelo A Unavailable 330 Conditions or Problems Problem Name Problem Onset Status Entry Provider Comment Standard Annotate Code Date Date Description Flank pain, 568792755 Active Efewongbe Right flank right (SNOMED 04/08 04/[address]) Abnormal CBC 409558856 Active Efewongbe Full blood (SNOMED 04/08 04/08 B Oleghe count abnormal CT) Hypothyroidi 26878677 Active Efewongbe Hypothyroidism sm (SNOMED 04/08 04/[address]) Dysuria 14133097 Active Efewongbe Dysuria (SNOMED 04/08 04/[address]) BODY MASS Z68.41 Active Neva Muniz Body mass index INDEX (ICD-10-CM Mederos, (BMI) 40.0-44.9 ) PA-C 40.0-44.9, ADULT adult Abnormal 937454109 Active Aniyah M Imaging of musculoskele (SNOMED 04/11 04/11 Roxanne musculoskeletal ivan system CT) system abnormal imaging Monoclonal 433164649 Active Aniyah M Monoclonal gammopathy (SNOMED 03/10 03/[address]) (clinical) 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 Yolande Anand Nonrheumatic tricuspid (ICD-10-CM 12/20 12/20 RN tricuspid (valve) ) (valve) insufficienc insufficiency y Localized 855293945 Active [place] S Localized edema edema (SNOMED 12/05 12/[address]) Adrenal 211706473 Active [place] S 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 Emil cortical y CT) hypofunction Hypertension 75129922 Inactive Orlando S Hypertensive (SNOMED 12/03 12/[address]) Problem excluded from report: Hx of syncope 901372216 Active Yolande A H/O: Disorder and collapse (SNOMED CT) Kika WOLFF Hypertension 13033666 Removed Yolande A Hypertensive (SNOMED CT) Kika WOLFF disorder Medications Medication Instructions Start Stop Generic Name NDC Provider Date Date WELLBUTRIN SR 150 MG One tablet by BUPROPION HCL [id number] Yolande A [id number] mouth daily 12/03 Kika RN POTASSIUM CHLORIDE One tablet by POTASSIUM CHLORIDE 17473432363 Yolande A ER 20 MEQ CR-TABS mouth daily 12/03 Kika RN VITAMIN D 2000 UNIT One tablet by CHOLECALCIFEROL 26314345613 Yolande A TABS mouth daily 12/03 Kika RN FUROSEMIDE 20 MG One tablet by FUROSEMIDE 19350299185 Yolande A TABS mouth daily 12/03 Kika RN FUROSEMIDE 20 MG One tablet by 2015/ FUROSEMIDE 89875877986 Orlando S TABS mouth daily 12/03 12/05 MD Emil LASIX 20 MG TABS One tablet by FUROSEMIDE 82457127777 [place] S mouth daily 12/05 MD Emil LASIX 20 MG TABS One tablet by FUROSEMIDE 23585253865 Yolande A mouth daily 12/05 12/20 Kika WOLFF POTASSIUM CHLORIDE One tablet by POTASSIUM CHLORIDE 20342224099 [place] S TERA ER 10 MEQ mouth every 12/03 TERA MODESTA Stein MD CR-TABS other day POTASSIUM CHLORIDE One tablet by POTASSIUM CHLORIDE 60761048387 Yolande A TERA ER 10 MEQ mouth every 12/03 12/20 TERA CR Kika WOLFF CR-TABS other day WELLBUTRIN XL 300 MG One tablet by BUPROPION HCL 59171880825 Orlando S [id number] mouth daily 12/03 MD Emil WELLBUTRIN XL 300 MG One tablet by 2015/ BUPROPION HCL 93776878793 Earnest H [id number] mouth daily 12/03 03/19 Shahbaz DO CELEBREX 200 MG CAPS One tablet by CELECOXIB 18286085018 Yolande A mouth daily 12/03 Kika RN HYDROCHLOROTHIAZIDE PRN HYDROCHLOROTHIAZIDE 58081676979 Earnest H 12.5 MG TABS Shahbaz DO HYDROCHLOROTHIAZIDE PRN 2015/ HYDROCHLOROTHIAZIDE 60348123162 Juan 12.5 MG TABS 05/15 M Alam TRULICITY 0.75 DULAGLUTIDE 57295683485 Earnest H MG/0.5ML SOPN Shahbaz DO TRULICITY 0.75 2015/ DULAGLUTIDE 16959320984 Juan MG/0.5ML SOPN 05/15 M Alam NORCO 5-325 MG TABS 1 tablet by HYDROCODONE-ACETAMIN 40704083761 Yolande A mouth every 12/03 OPHEN Kika RN horus as needed NORCO 5-325 MG TABS 1 tablet by 2015/ HYDROCODONE-ACETAMIN 07254396399 Juan mouth every 12/03 OPHEN M Alam horus as needed PROVIGIL 200 MG TABS One tablet by MODAFINIL 34144095473 [place] S mouth daily 12/05 MD Emil PROVIGIL 200 MG TABS One tablet by 2015/ MODAFINIL 36855991184 Juan mouth daily 12/05 1005 M Alam SINGULAIR 10 MG TABS One tablet by MONTELUKAST SODIUM 31345546483 [place] S mouth daily 12/05 MD Emil SINGULAIR 10 MG TABS One tablet by 2015/ MONTELUKAST SODIUM 04355626546 Juan mouth daily 12/05 1005 M Alam PULMICORT FLEXHALER Take as BUDESONIDE 88554205226 Orlando S 180 MCG/ACT AEPB directed 12/05 MD Emil PULMICORT FLEXHALER Take as 2015/ BUDESONIDE 28418020858 Juan 180 MCG/ACT AEPB directed 12/05 1005 M Alam LOULOU 180 MG TABS One tablet by FEXOFENADINE HCL Orlando S mouth daily 12/05 MD Emil as needed LOULOU 180 MG TABS One tablet by 2015/ FEXOFENADINE HCL Juan mouth daily 12/05 1005 M Alam as needed ALBUTEROL SULFATE via nebulizer ALBUTEROL SULFATE 53802005122 Orlando S (2.5 MG/3ML) 0.083% 12/05 MD Emil NEBU ALBUTEROL SULFATE via nebulizer 2015/ ALBUTEROL SULFATE 14659106614 Juan (2.5 MG/3ML) 0.083% 12/05 05/15 M Alam NEBU ULTRAM 50 MG TABS 1 tablet by TRAMADOL HCL 64362052829 Yolande A mouth every 6 12/03 Kika RN hours as needed ULTRAM 50 MG TABS 1 tablet by 2016/ TRAMADOL HCL 68983341301 Velvet D mouth every 6 12/03 04/08 Bales hours as needed AMRIX 15 MG PRN CYCLOBENZAPRINE HCL 17230754323 Earnest H [id number] Shahbaz DO AMRIX 15 MG PRN 2016/ CYCLOBENZAPRINE HCL 01765138921 Velvet D [id number] 04/08 Bales MELATONIN 5 MG TABS Two tablets MELATONIN 46232249290 Yolande A by mouth 12/03 Kika RN daily as needed at bedtime VITAMIN D One tablet by ERGOCALCIFEROL 14565909639 Orlando S (ERGOCALCIFEROL) mouth weekly 12/03 MD Emil 76909 UNIT CAPS VITAMIN D3 2000 UNIT 5000 IU daily CHOLECALCIFEROL 87566829976 [place] S CAPS 12/05 MD Emil PREDNISONE 5 MG TABS PREDNISONE 66142063434 Earnest H Shahbaz DO OMEPRAZOLE 10 MG PRN OMEPRAZOLE 14722717809 Earnest H CPDR Shahbaz DO SYNTHROID 50 MCG One tablet by LEVOTHYROXINE SODIUM 67570938485 Juan TABS mouth daily. M Alam MAGNESIUM 250 MG One tablet by MAGNESIUM 04899887882 Juan TABS mouth daily M Alam as needed. MULTIPLE VITAMINS One tablet by MULTIPLE VITAMIN 18842574773 Juan TABS mouth daily. M Alam VITAMIN D3 2000 UNIT One tablet by CHOLECALCIFEROL 53661241279 Juan TABS mouth daily. M Alam CELEBREX 200 MG CAPS One tablet by CELECOXIB 77901668709 Velvet D mouth daily 04/08 Bales LEUCOVORIN CALCIUM 1 weekly LEUCOVORIN CALCIUM 95262911036 Velvet D 25 MG TABS 04/08 Bales FOLIC ACID XTRA TABS One tablet by FOLIC 80290002010 Velvet D mouth daily 04/08 [id number] Bales LINE AMITRIPTYLINE HCL 25 One tablet by AMITRIPTYLINE HCL 29942258644 Velvet D MG TABS mouth daily 04/08 Bales ASPIRIN 81 MG TBEC One tablet by ASPIRIN 89867935655 Velvet D mouth daily 04/08 Bales TRIAMTERENE-HCTZ One tablet by TRIAMTERENE-HCTZ 39772308179 Velvet D 37.5-25 MG CAPS mouth daily 04/08 Bales as needed Medications Administered No information available. Allergies, Adverse Reactions, Alerts Allergy Name Reaction Start Date Severity Status Provider Description MORPHINE SULFATE Severe Active Efewongbe B (PF) Kurtis RENO DILANTIN Critical Active Velvet D Bales LYRICA Unknown No Longer Velvet D Amairani Active TOPAMAX Unknown No Longer Velvet D Amairani Active DILANTIN Unknown No Longer Velvet D [...] GFRC 73 mL/min/1.73m2 Glomerular Filtration Rate Calculation Replaced Document: Midmark ECG Observations EKG INTERP Sinus Rhythm WITHIN electrocardiogram interpretation NORMAL LIMITS EKG T AXIS 53 deg T wave axis, electrocardiogram EKG QRS AXIS 29 deg QRS axis, electrocardiogram EKG PWAVAXIS 46 deg P wave axis, electrocardiogram QRS INTERVAL 98 ms QRS duration, electrocardiogram QT INTERVAL new path ms QT interval, electrocardiogram MS INTERVAL 166 ms MS interval, electrocardiogram EKGHRTRATE 92 BPM heart rate on electrocardiogram Clinical Lists Update: Clinical Note CARDEFECHO 60 [...] albumin, serum by protein electrophoresis Lab Report: Meoa-2-Cfnvwhjmtaukt, S B2MI 1.9 mg/L 0.6-2.4 beta-2 microglobulin [...] Urine collected for unspecified duration Lab Report: CBC W/Diff, Automated LYMPHCT AUTO 4.76 X10 3/UL 10*3/mm3 0.83-4.51 H lymphocyte count, blood, automated ANC 3.2 X10 3/UL 10*3/mm3 2.0-7.7 neutrophil count, blood IMM GRANU % 0.200 % 0.0-0.9 immature granulocytes, percentage of total cells, blood BASOPHIL % 0.2 % 0-1 basophils as percent of blood leukocytes EOSINOPHIL % 3.2 % 0-5 eosinophils as percent of blood leukocytes MONOCYTE % 5.6 % 0-10 monocytes as percent of blood leukocytes LYMPHS % 54.0 % 19-41 H lymphocytes as percent of blood leukocytes PMN % 36.8 % 47-70 L neutrophils as percent of blood leukocytes MPV 9.6 fL 6.2-12.0 mean platelet volume PLATELETS 367 10*3/mm3 150-450 platelet count RDW-SD 50.1 fL 35.1-43.9 H red blood cell distribution width, size density RDW 13.8 % 11.6-14.6 red blood cell distribution width MCHC RBC 31.2 G/GL g/dL 32-36 L mean corpuscular hemoglobin concentration, RBC MCH 30.9 pg 27.0-32.0 mean corpuscular hemoglobin, RBC MCV 99.3 fL 81-99 H mean corpuscular volume, RBC HCT 40.1 % 37-47 hematocrit, blood HGB 12.5 g/dL 12.0-15.0 hemoglobin, blood RBC M/UL 4.04 10*6/uL 4.2-5.4 L red blood count WBC BLOOD 8.8 10*9/L 4.4-11.0 leukocyte (white blood cells) count, blood Lab Report: Comprehensive Metabolic Profil ANION GAP 3 5-15 L anion gap, serum CO2 29.0 mmol/L 21.0-32.0 carbon dioxide, venous blood CHLORIDE 109 mmol/L 98-107 H chloride, serum POTASSIUM 3.9 mmol/L 3.5-5.1 potassium, serum SODIUM 141 mmol/L 136-145 sodium, serum BILI TOTAL 0.40 mg/dL 0.20-1.00 bilirubin, serum, total SGPT (ALT) 42 U/L 12-78 alanine aminotransferase (SGPT), serum ALK PHOS 108 U/L 45-117 alkaline phosphatase, serum SGOT (AST) 20 U/L 15-37 aspartate aminotransferase (SGOT), serum CALCIUM 8.8 mg/dL 8.5-10.1 calcium, serum ALBUMIN 3.7 g/dL 3.4-5.0 albumin, serum PROTEIN, TOT 7.3 g/dL 6.4-8.2 protein, total, serum BUN/CREAT 37.4 RATIO 10-20 H urea nitrogen/creatinine ratio, serum GFRAA 89 mL/min >60 Glomerular Filtration rate GFR EST 74 mL/min >60 estimated glomerular filtration rate CREATININE 0.83 mg/dL 0.55-1.02 creatinine, serum BUN 31 mg/dL 7-18 H urea nitrogen, blood GLUCOSE SER 88 mg/dL 70-110 blood glucose Lab Report: Uric Acid URIC ACID 4.1 [...] COMMENT Comment . serum protein electrophoresis, interpretation/comment A/G RATIO 1.2 0.7-1.7 albumin/globulin ratio, serum GLOBULIN TOT 3.2 g/dL 2.2-3.9 globulins, serum, total MONO PROTEIN 0.3 g/dL Not Observed H [...] protein, total, serum by immunoelectrophoresis Lab Report: [place] Lambda Lt Chn Ser. Mon. FRKAPPALAMBR 0.67 0.26-1.65 free [place]/Lambda ratio FRLAMBDALTCH 1.884 mg/dL Units converted. See [...] NHIS SMOK STATUS Never smoker Tobacco use [facility] Lab Report: (P) Urinalysis, Complete WBC DIPSTK U 100 Negative H leukocyte esterase, urine, by dipstick [...] Normal mg/dL Normal Glucose Urine CLARITY UR Cloudy Clear clarity, urine, point UA COLOR Yellow Yellow urine color Lab Report: Urinalysis, Complete MUCUS URINE RARE <or=2+ mucus on urinalysis BACTURMICRO 4+ /hpf /[HPF] None Seen bacteria, urine, microscopic EPI CELL UR 0-5 SEEN /[LPF] 5-10 epithelial cells, urine RBCS MICRO U 0 SEEN 0-5 RBC urine by microscopy U/A,WBS,C&S 0-5 SEEN 0-5 Urinalysis, white blood cells, culture and sensitivity Microbiology: (P) Culture, Urine ABDELRAHMAN-GE-unk . GE use only - for LinkLogic import when terms are not otherwise specified Plan of Care Type Date Detail Appointment 01:30 PM Marcelo Main CHISEL TRIMMER-C, [address] [facility] [facility], [address], [place], [address], Pending order *UAC- Urinalysis, Complete w/ Micro [...] Procedures Code Procedure Name Date Entry Date 785-08 *CMP Complete Metabolic Panel 3084-1 *Uric Acid [...] with Differential 0722-1 *IMFIXS Immunofixation, Serum 1685 CPT-95568 EKG (In office) F/U MMM MMM FUA [...]
--- OUTSIDE RECORDS SUMMARY | 2018-10-31 14:01 | XMS RPT_ITS | Clinical Summary ---
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 Flank pain, 043925505 Active Efewongbe Right flank right (SNOMED 04/08 04/[address]) Abnormal CBC 217441682 Active Efewongbe Full blood (SNOMED 04/08 04/08 B [address] count abnormal CT) Hypothyroidi 08354382 Active Efewongbe Hypothyroidism sm (SNOMED 04/08 04/[address]) Dysuria 92411201 Active Efewongbe Dysuria (SNOMED 04/08 04/[address]) BODY MASS Z68.41 Active Neva Muniz Body mass index INDEX (ICD-10-CM Mederos, (BMI) 40.0-44.9 ) PA-C 40.0-44.9, ADULT adult Abnormal 696693082 Active Aniyah M Imaging of musculoskele (SNOMED 04/11 04/11 Roxanne musculoskeletal ivan system CT) system abnormal imaging Monoclonal 850579029 Active Aniyah M Monoclonal gammopathy (SNOMED 03/10 03/[address]) (clinical) 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 Yolande Anand Nonrheumatic tricuspid (ICD-10-CM 12/20 12/20 RN tricuspid (valve) ) (valve) insufficienc insufficiency y Localized 694197792 Active [place] S Localized edema edema (SNOMED 12/05 12/[address]) Adrenal 516178095 Active Orlando S 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 Emil cortical y CT) hypofunction Hypertension 98861512 Inactive [place] S Hypertensive (SNOMED 12/03 12/[address]) Problem excluded from report: Hx of syncope 406669534 Active Yolande Carrillo H/O: Disorder and collapse (SNOMED CT) Kika WOLFF Hypertension 33624780 Removed Yolande Carrillo Hypertensive (SNOMED CT) Kika RN disorder Medications Medication Instructions Start Stop Generic Name ND Provider Date Date CIPRO 500 MG TABS 1 tablet Q12 CIPROFLOXACIN HCL 59236786736 Efewongbe 05/05 B Kurtis RENO MACROBID 100 MG CAPS One tablet by 2016/ NITROFURANTOIN 96394652031 Marcelo A mouth twice 04/11 04/18 MONOHYD MACRO Main daily PATENT SOLICITOR-C WELLBUTRIN SR 150 MG One tablet by BUPROPION HCL 22366688554 Yolande Anand [id number] mouth daily 12/03 RN POTASSIUM CHLORIDE One tablet by POTASSIUM CHLORIDE 38298693003 Yolande Anand ER 20 MEQ CR-TABS mouth daily 12/03 RN VITAMIN D 2000 UNIT One tablet by CHOLECALCIFEROL 49964419651 Yolande A Kika TABS mouth daily 12/03 RN FUROSEMIDE 20 MG One tablet by FUROSEMIDE 50958747271 Yolande A Kika TABS mouth daily 12/03 RN FUROSEMIDE 20 MG One tablet by 2015/ FUROSEMIDE 44080478913 [place] S TABS mouth daily 12/03 12/05 MD Emil LASIX 20 MG TABS One tablet by FUROSEMIDE 24097944107 Orlando S mouth daily 12/05 MD Emil LASIX 20 MG TABS One tablet by FUROSEMIDE 04067023369 Yolande A Kika mouth daily 12/05 12/20 RN POTASSIUM CHLORIDE One tablet by POTASSIUM CHLORIDE 82656426693 Orlando S TERA ER 10 MEQ mouth every 12/03 TERA CR MD Emil CR-TABS other day POTASSIUM CHLORIDE One tablet by 2015/ POTASSIUM CHLORIDE 41234005882 Yolande A Kika TERA ER 10 MEQ mouth every 12/03 12/20 TERA CR RN CR-TABS other day WELLBUTRIN XL 300 MG One tablet by BUPROPION HCL 24273743288 [place] S [id number] mouth daily 12/03 MD mEil WELLBUTRIN XL 300 MG One tablet by BUPROPION HCL 94139200612 Earnest H [id number] mouth daily 12/03 03/19 Shahbaz DO CELEBREX 200 MG CAPS One tablet by CELECOXIB 12230927555 Yolande A Kika mouth daily 12/03 RN HYDROCHLOROTHIAZIDE PRN HYDROCHLOROTHIAZIDE 03164574446 Earnest H 12.5 MG TABS Shahbaz DO HYDROCHLOROTHIAZIDE PRN 2015/ HYDROCHLOROTHIAZIDE 73582643264 Juan M 12.5 MG TABS 05/15 Alam TRULICITY 0.75 DULAGLUTIDE 50212303117 Earnest H MG/0.5ML SOPN Shahbaz DO TRULICITY 0.75 2015/ DULAGLUTIDE 69166985479 Juan M MG/0.5ML SOPN 05/15 Alam NORCO 5-325 MG TABS 1 tablet by HYDROCODONE-ACETAMI 71435683305 Yolande A Kika mouth every 12/03 NOPHEN RN horus as needed NORCO 5-325 MG TABS 1 tablet by 2015/ HYDROCODONE-ACETAMI 93510730311 Juan M mouth every 12/03 NOPHEN Alam horus as needed PROVIGIL 200 MG TABS One tablet by MODAFINIL 49682988318 [place] S mouth daily 12/05 MD Emil PROVIGIL 200 MG TABS One tablet by 2015/ MODAFINIL 66643926324 Juan M mouth daily 12/05 05/15 Alajohana SINGULAIR 10 MG TABS One tablet by MONTELUKAST SODIUM 95575783372 Orlando S mouth daily 12/05 MD Emil SINGULAIR 10 MG TABS One tablet by 2015/ MONTELUKAST SODIUM 17461252602 Juan M mouth daily 12/05 05/15 Alam PULMICORT FLEXHALER Take as BUDESONIDE 21960832610 [place] S 180 MCG/ACT AEPB directed 12/05 MD Emil PULMICORT FLEXHALER Take as 2015/ BUDESONIDE 00510586816 Juan M 180 MCG/ACT AEPB directed 12/05 05/15 Alajohana LOULOU 180 MG TABS One tablet by FEXOFENADINE HCL Orlando S mouth daily 12/05 MD Emil as needed LOULOU 180 MG TABS One tablet by 2015/ FEXOFENADINE HCL Juan M mouth daily 12/05 05/15 Alajohana as needed ALBUTEROL SULFATE via nebulizer ALBUTEROL SULFATE 43345060214 Orlando S (2.5 MG/3ML) 0.083% 12/05 MD Emil NEBBalta ALBUTEROL SULFATE via nebulizer 2015/ ALBUTEROL SULFATE 28788812285 Juan M (2.5 MG/3ML) 0.083% 12/05 05/15 Arielle NEBU ULTRAM 50 MG TABS 1 tablet by TRAMADOL HCL 90097532582 Yolande A Kika mouth every 6 12/03 RN hours as needed ULTRAM 50 MG TABS 1 tablet by 2016/ TRAMADOL HCL 65742074385 Velvet D mouth every 6 12/03 04/08 Bales hours as needed AMRIX 15 MG PRN CYCLOBENZAPRINE HCL 85438004961 Earnest H [id number] Shahbaz DO AMRIX 15 MG PRN 2016/ CYCLOBENZAPRINE HCL 42875687629 Velvet D [id number] 04/08 Bales MELATONIN 5 MG TABS Two tablets MELATONIN 65235720775 Yolande Anand by mouth 12/03 RN daily as needed at bedtime VITAMIN D One tablet by ERGOCALCIFEROL 24000302384 Orlando S (ERGOCALCIFEROL) mouth weekly 12/03 MD Emil 27974 UNIT CAPS VITAMIN D3 2000 UNIT 5000 IU daily CHOLECALCIFEROL 12860476942 Orlando S CAPS 12/05 MD Emil PREDNISONE 5 MG TABS PREDNISONE 61130917173 [facility] Shahbaz DO OMEPRAZOLE 10 MG PRN OMEPRAZOLE 24839617596 [facility] CPDR Shahbaz DO SYNTHROID 50 MCG One tablet by LEVOTHYROXINE 15198443778 Juan M TABS mouth daily. SODIUM Alam MAGNESIUM 250 MG One tablet by MAGNESIUM 90569478132 Juan M TABS mouth daily Alam as needed. MULTIPLE VITAMINS One tablet by MULTIPLE VITAMIN 75999180309 Juan M TABS mouth daily. Alam VITAMIN D3 2000 UNIT One tablet by CHOLECALCIFEROL 02698841038 Juan M TABS mouth daily. Alam CELEBREX 200 MG CAPS One tablet by CELECOXIB 02125909143 Velvet D mouth daily 04/08 Amairani LEUCOVORIN CALCIUM 1 weekly LEUCOVORIN CALCIUM 42002860493 Velvet D 25 MG TABS 04/08 Amairani FOLIC ACID XTRA TABS One tablet by FOLIC 19684981430 Velvet D mouth daily 04/08 [id number] Amairani OLINE AMITRIPTYLINE HCL 25 One tablet by AMITRIPTYLINE HCL 85194080076 Velvet D MG TABS mouth daily 04/08 Amairani ASPIRIN 81 MG TBEC One tablet by ASPIRIN 82043412888 Velvet D mouth daily 04/08 Amairani TRIAMTERENE-HCTZ One tablet by TRIAMTERENE-HCTZ 27067656783 Velvet D 37.5-25 MG CAPS mouth daily 04/08 Amairani as needed Medications Administered No information available. Allergies, Adverse Reactions, Alerts Allergy Name Reaction Start Date Severity Status Provider Description MORPHINE SULFATE Severe Active Yoanna Riley (PF) Kurtis RENO DILANTIN Critical Active Velvet D Bales LYRICA Unknown No Longer Velvet D Bales Active TOPAMAX Unknown No Longer Velvet D Bales Active DILANTIN Unknown No Longer Velvet D Bales Active HONEYDEW MELON unknown Critical Active Yolande A Kika RN TOPAMAX unknown Critical No Longer Yolande A Kika WOLFF Active TORADOL ANAPHYLAXIS Critical Active Yolande A Kika RN LYRICA edema Moderate No Longer Yolande A Kika WOLFF Active DILANTIN Rash Severe No Longer Yolande A Kika RN Active Results Date Name Value Unit Range [...] INTERVAL new path ms QT interval, electrocardiogram IN INTERVAL 166 ms IN interval, electrocardiogram EKGHRTRATE 92 BPM heart rate [...] albumin, serum by protein electrophoresis Lab Report: Tepq-9-Gljtlxmkietgf, S B2MI 1.9 mg/L 0.6-2.4 beta-2 microglobulin [...] protein, total, serum by immunoelectrophoresis Lab Report: [place] Lambda Lt Chn Ser. Mon. FRKAPPALAMBR 0.67 0.26-1.65 free [place]/Lambda ratio FRLAMBDALTCH 1.884 mg/dL Units converted. See free Lambda light chain lab report for original value. KAPPAFRLTCHN 1.264 mg/dL Units converted. See kappa free light chains lab report for original value. Office Visit: [facility] Pt. Visit MEDS REVIEW Done Documentation of current medications (procedure) FALLRSKASSES Yes Fall risk assessment ALCOHOLCOUNS yes Alcoholism counseling (procedure) ORALTOBACUSE Never Tobacco smoking status NHIS SMOK STATUS Never smoker Tobacco use [facility] Lab Report: (P) Urinalysis, Complete [...] white blood cells, culture and sensitivity Microbiology: Culture, Urine ZZ-GE-unk Trimethoprim/Sulfametho $ GE use only - for <=20 S LinkLogic import when terms are not otherwise specified Plan of Care Type Date Detail Appointment 01:00 PM [address], [address], [place], [address], Appointment 01:30 PM Marcelo BERRY, [address] [facility] [facility], [address], [place], [address], Pending order Urine Culture Pending order *UAC- [...] Procedures Code Procedure Name Date Entry Date CPT-67519 EKG (In office) 0786-1 *CMP Complete Metabolic [...] with Differential 0722-1 *IMFIXS Immunofixation, Serum 1685 CPT-66469 EKG (In office) F/U MMM MMM FUA [...]
--- OUTSIDE RECORDS SUMMARY | 2018-10-31 14:01 | XMS RPT_ITS | Clinical Summary ---
:1950 Author Organization [facility], 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-C, Marcelo A Unavailable 330 Conditions or Problems Problem Name Problem Onset Status Entry Provider Comment Standard Annotate Code Date Date Description Diarrhea, 08880888 Active Marcelo A Diarrhea recurrent (SNOMED 05/[address]) [employer] ADMINISTRATOR-C Abnormal 187392909 Active Yolande Carrillo Kika Electrocardiogr electrocardi (SNOMED RN am abnormal ogram CT) Recurrent 239115929 Active Marcelo A Recurrent bacterial (SNOMED 04/11 04/[address]) [employer] ADMINISTRATOR-C cystitis Flank pain, 762937339 Active Efewongbe Right flank right (SNOMED 04/08 04/[address]) Abnormal CBC 655852664 Active Efewongbe Full blood (SNOMED 04/08 04/08 B [place] count abnormal CT) Hypothyroidi 77387223 Active Efewongbe Hypothyroidism sm (SNOMED 04/08 04/[address]) Dysuria 53531085 Active Efewongbe Dysuria (SNOMED 04/08 04/[address]) BODY MASS Z68.41 Active Neva Muniz Body mass index INDEX (ICD-10-CM [place], (BMI) 40.0-44.9 ) PA-C 40.0-44.9, ADULT adult Abnormal 721877480 Active Aniyah Muniz Imaging of musculoskele (SNOMED 04/11 04/11 Roxanne musculoskeletal ivan system CT) system abnormal imaging Monoclonal 310310771 Active Aniyah M Monoclonal gammopathy (SNOMED 03/10 03/[address]) (clinical) 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 Yolandebernice Anand Nonrheumatic tricuspid (ICD-10-CM 12/20 12/20 RN tricuspid (valve) ) (valve) insufficienc insufficiency y Localized 492301015 Active Orlando S Localized edema edema (SNOMED 12/05 12/[address]) Adrenal 025768318 Active Orlando S 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 Emil cortical y CT) hypofunction Hypertension 55123904 Inactive Orlando S Hypertensive (SNOMED 12/03 12/[address]) Problem excluded from report: Hx of syncope 259464791 Active Yolande A H/O: Disorder and collapse (SNOMED CT) Kika RN Hypertension 85146862 Removed Yolande A Hypertensive (SNOMED CT) Kika RN disorder Medications Medication Instructions Start Stop Generic Name ND Provider Date Date CIPRO 500 MG TABS 1 tablet Q12 CIPROFLOXACIN HCL 28900911605 Efewongbe 05/05 B Kurtis RENO MACROBID 100 MG CAPS One tablet by 2016/ NITROFURANTOIN 45507270566 Marcelo A mouth twice 04/11 04/18 MONOHYD MACRO Main daily [employer] BUSINESS ADMINISTRATOR-C WELLBUTRIN SR 150 MG One tablet by BUPROPION HCL 24133960831 Yolande A Kika [id number] mouth daily 12/03 RN POTASSIUM CHLORIDE One tablet by POTASSIUM CHLORIDE 20813376469 Yolande A Kika ER 20 MEQ CR-TABS mouth daily 12/03 RN VITAMIN D 2000 UNIT One tablet by CHOLECALCIFEROL 34797614381 Yolande A Kika TABS mouth daily 25 RN FUROSEMIDE 20 MG One tablet by FUROSEMIDE 44144093107 Yolande A Kika TABS mouth daily 12/03 RN FUROSEMIDE 20 MG One tablet by FUROSEMIDE 63927502467 Orlando S TABS mouth daily 12/03 12/05 MD Emil LASIX 20 MG TABS One tablet by FUROSEMIDE 68406347343 [place] S mouth daily 12/05 MD Emil LASIX 20 MG TABS One tablet by FUROSEMIDE 13645350740 Yolande A Kika mouth daily 12/05 12/20 RN POTASSIUM CHLORIDE One tablet by POTASSIUM CHLORIDE 41426912130 Orlando S TERA ER 10 MEQ mouth every 12/03 TERA CR MD Emil CR-TABS other day POTASSIUM CHLORIDE One tablet by 2015/ POTASSIUM CHLORIDE 54722325171 Yolande A Kika TERA ER 10 MEQ mouth every 12/03 12/20 TERA CR MARIELLA CR-TABS other day WELLBUTRIN XL 300 MG One tablet by BUPROPION HCL 47592532180 Orlando S [id number] mouth daily 12/03 MD Emil WELLBUTRIN XL 300 MG One tablet by 2015/ BUPROPION HCL 00740318445 Earnest H [id number] mouth daily 12/03 03/19 Shahbaz DO CELEBREX 200 MG CAPS One tablet by CELECOXIB 84606345300 Yolande A Kika mouth daily 12/03 RN HYDROCHLOROTHIAZIDE PRN HYDROCHLOROTHIAZIDE 41468436024 Earnest H 12.5 MG TABS Shahbaz DO HYDROCHLOROTHIAZIDE PRN 2015/ HYDROCHLOROTHIAZIDE 99644948951 Juan M 12.5 MG TABS 05/15 Alam TRULICITY 0.75 DULAGLUTIDE 67062306091 Earnest H MG/0.5ML SOPN Shahbaz DO TRULICITY 0.75 2015/ DULAGLUTIDE 42970598356 Juan M MG/0.5ML SOPN 05/15 Alam NORCO 5-325 MG TABS 1 tablet by HYDROCODONE-ACETAMI 47437628927 Yolande A Kika mouth every 12/03 NOPHEN RN horus as needed NORCO 5-325 MG TABS 1 tablet by 2015/ HYDROCODONE-ACETAMI 89541027593 Juan M mouth every 12/03 NOPHEN Alam horus as needed PROVIGIL 200 MG TABS One tablet by MODAFINIL 37431561719 [place] S mouth daily 12/05 MD Emil PROVIGIL 200 MG TABS One tablet by 2015/ MODAFINIL 75520184867 Juan M mouth daily 12/05 05/15 Alam SINGULAIR 10 MG TABS One tablet by MONTELUKAST SODIUM 50261958574 [place] S mouth daily 12/05 MD Emil SINGULAIR 10 MG TABS One tablet by 2015/ MONTELUKAST SODIUM 67149569399 Juan M mouth daily 12/05 05/15 Alajohana PULMICORT FLEXHALER Take as BUDESONIDE 83085792627 Orlando S 180 MCG/ACT AEPB directed 12/05 MD Emil PULMICORT FLEXHALER Take as 2015/ BUDESONIDE 47291246030 Juan M 180 MCG/ACT AEPB directed 12/05 05/15 Alajohana LOULOU 180 MG TABS One tablet by FEXOFENADINE HCL Orlando S mouth daily 12/05 MD Emil as needed LOULOU 180 MG TABS One tablet by 2015/ FEXOFENADINE HCL Juan M mouth daily 12/05 05/15 Alajohana as needed ALBUTEROL SULFATE via nebulizer ALBUTEROL SULFATE 21649818451 [place] S (2.5 MG/3ML) 0.083% 12/05 MD Emil NEBU ALBUTEROL SULFATE via nebulizer 2015/ ALBUTEROL SULFATE 58603807503 Juan M (2.5 MG/3ML) 0.083% 12/05 05/15 Alajohana NEBU ULTRAM 50 MG TABS 1 tablet by TRAMADOL HCL 82269348677 Yolande A Kika mouth every 6 12/03 RN hours as needed ULTRAM 50 MG TABS 1 tablet by 2016/ TRAMADOL HCL 31392602906 Velvet D mouth every 6 12/03 08/29 [place]ales hours as needed AMRIX 15 MG PRN CYCLOBENZAPRINE HCL 04230051678 [facility] [id number] Shahbaz DO AMRIX 15 MG PRN 2017/ CYCLOBENZAPRINE HCL 07644339292 Velvet D [id number] 04/08 Amairani MELATONIN 5 MG TABS Two tablets MELATONIN 69669074986 Yolande Anand by mouth 12/03 RN daily as needed at bedtime VITAMIN D One tablet by ERGOCALCIFEROL 85305565902 [place] S (ERGOCALCIFEROL) mouth weekly 12/03 MD Emil 17219 UNIT CAPS VITAMIN D3 2000 UNIT 5000 IU daily CHOLECALCIFEROL 94534894754 [place] S CAPS 12/05 MD Emil PREDNISONE 5 MG TABS PREDNISONE 74282884436 [facility] Shahbaz DO OMEPRAZOLE 10 MG PRN OMEPRAZOLE 80310983305 [facility] CPDR Shahbaz DO SYNTHROID 50 MCG One tablet by LEVOTHYROXINE 52477938786 Juan M TABS mouth daily. SODIUM Alam MAGNESIUM 250 MG One tablet by MAGNESIUM 35936475491 Juan M TABS mouth daily Alam as needed. MULTIPLE VITAMINS One tablet by MULTIPLE VITAMIN 89173955649 Juan M TABS mouth daily. Alam VITAMIN D3 2000 UNIT One tablet by CHOLECALCIFEROL 81806969482 Juan M TABS mouth daily. Alam CELEBREX 200 MG CAPS One tablet by CELECOXIB 05068374703 Velvet D mouth daily 04/08 Amairani LEUCOVORIN CALCIUM 1 weekly LEUCOVORIN CALCIUM 37680699154 Velvet D 25 MG TABS 04/08 Amairani FOLIC ACID XTRA TABS One tablet by FOLIC 98499480298 Velvet D mouth daily 04/08 [id number] Amairani OLINE AMITRIPTYLINE HCL 25 One tablet by AMITRIPTYLINE HCL 38395377312 Velvet D MG TABS mouth daily 04/08 Amairani ASPIRIN 81 MG TBEC One tablet by ASPIRIN 47659698113 Velvet D mouth daily 04/08 Amairani TRIAMTERENE-HCTZ One tablet by TRIAMTERENE-HCTZ 05513829959 Velvet D 37.5-25 MG CAPS mouth daily [...] albumin, serum by protein electrophoresis Lab Report: [id number], S B2MI 1.9 mg/L 0.6-2.4 beta-2 microglobulin [...] protein, total, serum by immunoelectrophoresis Lab Report: Sage Lambda Lt Chn Ser. Mon. FRKAPPALAMBR 0.67 0.26-1.65 free Sage/Lambda ratio FRLAMBDALTCH 1.884 mg/dL Units converted. See [...] NHIS SMOK STATUS Never smoker Tobacco use [facility] Replaced Document: Comprehensive Metabolic Profil ANION [...] INTERVAL new path ms QT interval, electrocardiogram AK INTERVAL 174 ms AK interval, electrocardiogram EKGHRTRATE 89 BPM heart rate [...] 01:30 PM Marcelo WARREN-Luis E, [address], [address], [place], [address], Pending order Urine Culture Pending order *UAC- [...] Procedures Code Procedure Name Date Entry Date CPT-43345 EKG (In office) 0184-1 *CBC with Differential CPT-85581 Urine Culture 04352-0 *UAC- Urinalysis, Complete w/ Micro 0786-1 *CMP [...] with Differential 0722-1 *IMFIXS Immunofixation, Serum 1685 CPT-82007 EKG (In office) F/U MMM MMM FUA [...]
--- OUTSIDE RECORDS SUMMARY | 2018-10-31 14:02 | XMS RPT_ITS | Clinical Summary ---
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 Abnormal 854430581 Active Yolande Lorena Kika Electrocardiogr electrocardi (SNOMED RN am abnormal ogram CT) Recurrent 573783588 Active Marcelo A Recurrent bacterial (SNOMED 04/11 04/[address]) BUNG REMOVER-C cystitis Flank pain, 842196699 Active Efewongbe Right flank right (SNOMED 04/08 04/[address]) Abnormal CBC 523669418 Active Efewongbe Full blood (SNOMED 04/08 04/08 B [address] count abnormal CT) Hypothyroidi 16114094 Active Efewongbe Hypothyroidism sm (SNOMED 04/08 04/[address]) Dysuria 79866711 Active Efewongbe Dysuria (SNOMED 04/08 04/[address]) BODY MASS Z68.41 Active Neva Muniz Body mass index INDEX (ICD-10-CM [place], (BMI) 40.0-44.9 ) PA-C 40.0-44.9, ADULT adult Abnormal 159436054 Active Aniyah Muniz Imaging of musculoskele (SNOMED 04/11 04/11 Roxanne musculoskeletal ivan system CT) system abnormal imaging Monoclonal 188341846 Active Aniyah M Monoclonal gammopathy (SNOMED 03/10 03/[address]) (clinical) 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 Yolande Lorena Kika Nonrheumatic tricuspid (ICD-10-CM 12/20 12/20 RN tricuspid (valve) ) (valve) insufficienc insufficiency y Localized 879523941 Active [place] S Localized edema edema (SNOMED 12/05 12/[address]) Adrenal 202589959 Active Orlando S 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 Emil cortical y CT) hypofunction Hypertension 20597588 Inactive [place] S Hypertensive (SNOMED 12/03 12/[address]) Problem excluded from report: Hx of syncope 275856606 Active Yolande A H/O: Disorder and collapse (SNOMED CT) Kika RN Hypertension 99647098 Removed Yolande Carrillo Hypertensive (SNOMED CT) Kika RN disorder Medications Medication Instructions Start Stop Generic Name NDC Provider Date Date CIPRO 500 MG TABS 1 tablet Q12 CIPROFLOXACIN HCL 66302696322 Efewongbe 05/05 Osvaldo Hull MD MACROBID 100 MG CAPS One tablet by 2016/ NITROFURANTOIN 42868747805 Marcelo A mouth twice 04/11 04/18 MONOHYD MACRO Main daily BUNG REMOVER-C WELLBUTRIN SR 150 MG One tablet by BUPROPION HCL 76805000087 Yolande A Kika [id number] mouth daily 12/03 RN POTASSIUM CHLORIDE One tablet by POTASSIUM CHLORIDE 93290575164 Yolande A Kika ER 20 MEQ CR-TABS mouth daily 12/03 RN VITAMIN D 2000 UNIT One tablet by CHOLECALCIFEROL 62158120667 Yolande A Kika TABS mouth daily 25 RN FUROSEMIDE 20 MG One tablet by FUROSEMIDE 89131113425 Yolande A Kika TABS mouth daily 12/03 RN FUROSEMIDE 20 MG One tablet by FUROSEMIDE 81541674959 [place] S TABS mouth daily 12/03 12/05 MD Emil LASIX 20 MG TABS One tablet by FUROSEMIDE 12182056106 [place] S mouth daily 12/05 MD Emil LASIX 20 MG TABS One tablet by FUROSEMIDE 84395623446 Yolande A Kika mouth daily 12/05 12/20 RN POTASSIUM CHLORIDE One tablet by POTASSIUM CHLORIDE 02110946675 Orlando S TERA ER 10 MEQ mouth every 12/03 TERA CR MD Emil CR-TABS other day POTASSIUM CHLORIDE One tablet by 2015/ POTASSIUM CHLORIDE 79953934591 Yolande A Kika TERA ER 10 MEQ mouth every 12/03 12/20 TERA CR MARIELLA CR-TABS other day WELLBUTRIN XL 300 MG One tablet by BUPROPION HCL 70125871366 Orlando S [id number] mouth daily 12/03 MD Emil WELLBUTRIN XL 300 MG One tablet by 2015/ BUPROPION HCL 86518637109 Earnest H [id number] mouth daily 12/03 03/19 Shahbaz DO CELEBREX 200 MG CAPS One tablet by CELECOXIB 77411866280 Yolande A Kika mouth daily 12/03 RN HYDROCHLOROTHIAZIDE PRN HYDROCHLOROTHIAZIDE 57287079518 Earnest H 12.5 MG TABS Shahbaz DO HYDROCHLOROTHIAZIDE PRN 2015/ HYDROCHLOROTHIAZIDE 73147443830 Juan M 12.5 MG TABS 05/15 Alam TRULICITY 0.75 DULAGLUTIDE 26432619070 Earnest H MG/0.5ML SOPN Shahbaz DO TRULICITY 0.75 2015/ DULAGLUTIDE 76118032335 Juan M MG/0.5ML SOPN 05/15 Alam NORCO 5-325 MG TABS 1 tablet by HYDROCODONE-ACETAMI 22667261291 Yolande A Kika mouth every 12/03 NOPHEN RN horus as needed NORCO 5-325 MG TABS 1 tablet by 2015/ HYDROCODONE-ACETAMI 10315973357 Juan M mouth every 12/03 NOPHEN Alam horus as needed PROVIGIL 200 MG TABS One tablet by MODAFINIL 19747529386 [place] S mouth daily 12/05 MD Emil PROVIGIL 200 MG TABS One tablet by 2015/ MODAFINIL 62456260748 Juan M mouth daily 12/05 05/15 Alam SINGULAIR 10 MG TABS One tablet by MONTELUKAST SODIUM 95605983147 Orlando S mouth daily 12/05 MD Emil SINGULAIR 10 MG TABS One tablet by 2015/ MONTELUKAST SODIUM 85586018108 Juan M mouth daily 12/05 05/15 Alajohana PULMICORT FLEXHALER Take as BUDESONIDE 81518802741 [place] S 180 MCG/ACT AEPB directed 12/05 MD Emil PULMICORT FLEXHALER Take as 2015/ BUDESONIDE 67237161985 Juan M 180 MCG/ACT AEPB directed 12/05 05/15 Alam LOULOU 180 MG TABS One tablet by FEXOFENADINE HCL [place] S mouth daily 12/05 MD Emil as needed LOULOU 180 MG TABS One tablet by 2015/ FEXOFENADINE HCL Juan M mouth daily 12/05 05/15 Alajohana as needed ALBUTEROL SULFATE via nebulizer ALBUTEROL SULFATE 31498671524 Orlando S (2.5 MG/3ML) 0.083% 12/05 MD Emil NEBU ALBUTEROL SULFATE via nebulizer 2015/ ALBUTEROL SULFATE 31764341063 Juan M (2.5 MG/3ML) 0.083% 12/05 05/15 Alajohana NEBU ULTRAM 50 MG TABS 1 tablet by TRAMADOL HCL 84271005313 Yolande A Kika mouth every 6 12/03 RN hours as needed ULTRAM 50 MG TABS 1 tablet by 2016/ TRAMADOL HCL 35613125135 Velvet D mouth every 6 12/03 08/29 [place] hours as needed AMRIX 15 MG PRN CYCLOBENZAPRINE HCL 13179061597 [facility] H [id number] Shhabaz DO AMRIX 15 MG PRN 2017/ CYCLOBENZAPRINE HCL 58332276725 Velvet D [id number] 04/08 Amairani MELATONIN 5 MG TABS Two tablets MELATONIN 94621320481 Yloande Anand by mouth 12/03 RN daily as needed at bedtime VITAMIN D One tablet by ERGOCALCIFEROL 12252094292 [place] S (ERGOCALCIFEROL) mouth weekly 12/03 MD Emil 61017 UNIT CAPS VITAMIN D3 2000 UNIT 5000 IU daily CHOLECALCIFEROL 55509221752 Orlando S CAPS 12/05 MD Emil PREDNISONE 5 MG TABS PREDNISONE 52988106448 [facility] Shahbaz DO OMEPRAZOLE 10 MG PRN OMEPRAZOLE 17415534219 [facility] CPDR Shahbaz DO SYNTHROID 50 MCG One tablet by LEVOTHYROXINE 75883283321 Juan M TABS mouth daily. SODIUM Alam MAGNESIUM 250 MG One tablet by MAGNESIUM 37105204190 Juan M TABS mouth daily Alam as needed. MULTIPLE VITAMINS One tablet by MULTIPLE VITAMIN 97789159029 Juan M TABS mouth daily. Alam VITAMIN D3 2000 UNIT One tablet by CHOLECALCIFEROL 52000227245 Juan M TABS mouth daily. Alam CELEBREX 200 MG CAPS One tablet by CELECOXIB 55114524119 Velvet D mouth daily 04/08 Amairani LEUCOVORIN CALCIUM 1 weekly LEUCOVORIN CALCIUM 79096206282 Velvet D 25 MG TABS 04/08 Amairani FOLIC ACID XTRA TABS One tablet by FOLIC 78939744753 Velvet D mouth daily 04/08 [id number] Amairani OLINE AMITRIPTYLINE HCL 25 One tablet by AMITRIPTYLINE HCL 56757921503 Velvet D MG TABS mouth daily 04/08 Amairani ASPIRIN 81 MG TBEC One tablet by ASPIRIN 02008515500 Velvet D mouth daily 04/08 Amairani TRIAMTERENE-HCTZ One tablet by TRIAMTERENE-HCTZ 86386688275 Velvet D 37.5-25 MG CAPS mouth daily [...] albumin, serum by protein electrophoresis Lab Report: [id number], S B2MI 1.9 mg/L 0.6-2.4 beta-2 microglobulin [...] protein, total, serum by immunoelectrophoresis Lab Report: [place] Lambda Lt Chn Ser. Mon. FRKAPPALAMBR 0.67 0.26-1.65 free [place]/Lambda ratio FRLAMBDALTCH 1.884 mg/dL Units converted. See [...] status NHIS SMOK STATUS Never smoker Tobacco smoking status [facility] Replaced Document: Comprehensive Metabolic Profil [...] INTERVAL new path ms QT interval, electrocardiogram SD INTERVAL 174 ms SD interval, electrocardiogram EKGHRTRATE 89 BPM heart rate [...] percent of blood leukocytes Microbiology: Culture, Urine [id number] . GE use [...] Date Detail Appointment 01:30 PM Marcelo Lorena Etelvina WARREN-C, [address], [address], [place], [address], Appointment 02:30 PM Kvng Nunez, [address], [address], [place], [address] Pending order Urine Culture Pending order *UAC- [...] Procedures Code Procedure Name Date Entry Date CPT-52960 EKG (In office) 0184-1 *CBC with Differential CPT-56126 Urine Culture 17866-7 *UAC- Urinalysis, Complete w/ Micro 0786-1 *CMP [...] with Differential 0722-1 *IMFIXS Immunofixation, Serum 1685 CPT-50140 EKG (In office) F/U MMM MMM FUA [...]
--- OUTSIDE RECORDS SUMMARY | 2018-10-31 14:02 | XMS RPT_ITS | Clinical Summary ---
:1950 Author Organization [employer] [facility] Address [address] [place] [id number] Phone Care Team Providers Name Role Phone LinkLogic Unavailable Conditions or Problems Problem Name Problem Onset Status Entry Provider Comment Standard Annotate Code Date Date Description Diarrhea, 09242825 Active Marcelo A Diarrhea recurrent (SNOMED 05/[address]) OPTIONS TRADER-C Abnormal 590290864 Active Yolande Lorena Kika Electrocardiogr electrocardi (SNOMED 0 RN am abnormal ogram CT) Recurrent 013473353 Active Marcelo A Recurrent bacterial (SNOMED 04/11 04/[address]) OPTIONS TRADER-C cystitis Flank pain, 394675204 Active Efewongbe Right flank right (SNOMED 04/08 04/[address]) Abnormal CBC 859688591 Active Efewongbe Full blood (SNOMED 04/08 04/08 B [place] count abnormal CT) Hypothyroidi 32931083 Active Efewongbe Hypothyroidism sm (SNOMED 04/08 04/[address]) Dysuria 51076638 Active Efewongbe Dysuria (SNOMED 04/08 04/[address]) BODY MASS Z68.41 Active Neva Muniz Body mass index INDEX (ICD-10-CM [place], (BMI) 40.0-44.9 ) PA-C 40.0-44.9, ADULT adult Abnormal 871032208 Active Aniyah Muniz Imaging of musculoskele (SNOMED 04/11 04/11 [place] musculoskeletal ivan system CT) system abnormal imaging Monoclonal 240028195 Active Aniyah M Monoclonal gammopathy (SNOMED 03/10 03/[address]) (clinical) 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 Yolande Lorena Anand Nonrheumatic tricuspid (ICD-10-CM 12/20 12/20 RN tricuspid (valve) ) (valve) insufficienc insufficiency y Localized 997175197 Active Chantilly S Localized edema edema (SNOMED 12/05 12/[address]) Adrenal 755334036 Active Orlando S 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 Emil cortical y CT) hypofunction Hypertension 04938473 Inactive Orlando S Hypertensive (SNOMED 12/03 12/[address]) Problem excluded from report: Hx of syncope 204864589 Active Yolnade A H/O: Disorder and collapse (SNOMED CT) Kika RN Hypertension 26606883 Removed Yolande A Hypertensive (SNOMED CT) Kika RN disorder Medications Medication Instructions Start Stop Generic Name [facility] Provider Date Date CIPRO 500 MG TABS 1 tablet Q12 CIPROFLOXACIN HCL 20325282327 Efewongbe 05/05 B Kurtis RENO MACROBID 100 MG CAPS One tablet by 2016/ NITROFURANTOIN 33170426220 Marcelo A mouth twice 04/11 04/18 MONOHYD MACRO Main daily OPTIONS TRADER-C WELLBUTRIN SR 150 MG One tablet by BUPROPION HCL 38186792457 Yolande A Kika [id number] mouth daily 25 RN POTASSIUM CHLORIDE One tablet by POTASSIUM CHLORIDE 18872866497 Yolande A Kika ER 20 MEQ CR-TABS mouth daily 25 RN VITAMIN D 2000 UNIT One tablet by CHOLECALCIFEROL 62314042189 Yolande A Kika TABS mouth daily 25 RN FUROSEMIDE 20 MG One tablet by FUROSEMIDE 64590683474 Yolande A Kika TABS mouth daily 12/03 RN FUROSEMIDE 20 MG One tablet by FUROSEMIDE 01555656307 Chantilly S TABS mouth daily 12/03 12/05 MD Emil LASIX 20 MG TABS One tablet by FUROSEMIDE 17279324884 Chantilly S mouth daily 12/05 MD mEil LASIX 20 MG TABS One tablet by FUROSEMIDE 10204627908 Yolande A Kika mouth daily 12/05 12/20 RN POTASSIUM CHLORIDE One tablet by POTASSIUM CHLORIDE 49254072763 Orlando S TERA ER 10 MEQ mouth every 12/03 TERA CR MD Emil CR-TABS other day POTASSIUM CHLORIDE One tablet by 2015/ POTASSIUM CHLORIDE 02400242855 Yolande A Kika TERA ER 10 MEQ mouth every 12/03 12/20 TERA CR MARIELLA CR-TABS other day WELLBUTRIN XL 300 MG One tablet by BUPROPION HCL 07235528387 Chantilly S [id number] mouth daily 12/03 MD Emil WELLBUTRIN XL 300 MG One tablet by 2015/ BUPROPION HCL 29895198857 Earnest H [id number] mouth daily 12/03 03/19 Shahbaz DO CELEBREX 200 MG CAPS One tablet by CELECOXIB 84983702896 Yolande A Kika mouth daily 12/03 RN HYDROCHLOROTHIAZIDE PRN HYDROCHLOROTHIAZIDE 06145874647 Earnest H 12.5 MG TABS Shahbaz DO HYDROCHLOROTHIAZIDE PRN 2015/ HYDROCHLOROTHIAZIDE 63291035216 Juan M 12.5 MG TABS 05/15 Alam TRULICITY 0.75 DULAGLUTIDE 34903193946 Earnest H MG/0.5ML SOPN Shahbaz DO TRULICITY 0.75 2015/ DULAGLUTIDE 40574843489 Juan M MG/0.5ML SOPN 05/15 Alam NORCO 5-325 MG TABS 1 tablet by HYDROCODONE-ACETAMI 61338470731 Yolande A Kika mouth every 12/03 NOPHEN RN horus as needed NORCO 5-325 MG TABS 1 tablet by 2015/ HYDROCODONE-ACETAMI 23185463966 Juan M mouth every 12/03 NOPHEN Alam horus as needed PROVIGIL 200 MG TABS One tablet by MODAFINIL 00178444867 Chantilly S mouth daily 12/05 MD Emil PROVIGIL 200 MG TABS One tablet by 2015/ MODAFINIL 80848823793 Juan M mouth daily 12/05 05/15 Alajohana SINGULAIR 10 MG TABS One tablet by MONTELUKAST SODIUM 24882035616 Chantilly S mouth daily 12/05 MD Emil SINGULAIR 10 MG TABS One tablet by 2015/ MONTELUKAST SODIUM 01857364526 Juan M mouth daily 12/05 05/15 Alajohana PULMICORT FLEXHALER Take as BUDESONIDE 24992803682 Chantilly S 180 MCG/ACT AEPB directed 12/05 MD Emil PULMICORT FLEXHALER Take as 2015/ BUDESONIDE 14584068979 Juan M 180 MCG/ACT AEPB directed 12/05 05/15 Alam LOULOU 180 MG TABS One tablet by FEXOFENADINE HCL Chantilly S mouth daily 12/05 MD Emil as needed LOULOU 180 MG TABS One tablet by 2015/ FEXOFENADINE HCL Juan M mouth daily 12/05 05/15 Alajohana as needed ALBUTEROL SULFATE via nebulizer ALBUTEROL SULFATE 69648589963 Chantilly S (2.5 MG/3ML) 0.083% 12/05 MD Emil NEBU ALBUTEROL SULFATE via nebulizer 2015/ ALBUTEROL SULFATE 87119437615 Juan M (2.5 MG/3ML) 0.083% 12/05 05/15 Alajohana NEBU ULTRAM 50 MG TABS 1 tablet by TRAMADOL HCL 88892011778 Yolande A Kika mouth every 6 12/03 RN hours as needed ULTRAM 50 MG TABS 1 tablet by 2016/ TRAMADOL HCL 74951916199 Velvet D mouth every 6 12/03 08/29 Bales hours as needed AMRIX 15 MG PRN CYCLOBENZAPRINE HCL 42186841973 [facility] [id number] Shahbaz DO AMRIX 15 MG PRN BENZAPRINE HCL 41082233671 Velvet D [id number] 04/08 Amairani MELATONIN 5 MG TABS Two tablets MELATONIN 16564747661 Yolande Anand by mouth 12/03 RN daily as needed at bedtime VITAMIN D One tablet by ERGOCALCIFEROL 38595498950 Chantilly S (ERGOCALCIFEROL) mouth weekly 12/03 MD Emil 28392 UNIT CAPS VITAMIN D3 2000 UNIT 5000 IU daily CHOLECALCIFEROL 55036734741 Chantilly S CAPS 12/05 MD Emil PREDNISONE 5 MG TABS [facility] 22491276935 [facility] OMEPR[facility] 10 MG PRN OMEPRAZOLE 51692358876 [facility] CPDR Shahbaz DO SYNTHROID 50 MCG One tablet by LEVOTHYROXINE 11764122332 Juan M TABS mouth daily. SODIUM Alam MAGNESIUM 250 MG One tablet by MAGNESIUM 01133948904 Juan M TABS mouth daily Alam as needed. MULTIPLE VITAMINS One tablet by MULTIPLE VITAMIN 10561459738 Juan M TABS mouth daily. Alam VITAMIN D3 2000 UNIT One tablet by CHOLECALCIFEROL 31998490120 Juan M TABS mouth daily. Alam CELEBREX 200 MG CAPS One tablet by CELECOXIB 54689055503 Velvet D mouth daily 04/08 Amairani LEUCOVORIN CALCIUM 1 weekly LEUCOVORIN CALCIUM 08023480512 Velvet D 25 MG TABS 04/08 Amairani FOLIC ACID XTRA TABS One tablet by FOLIC 87812269993 Velvet D mouth daily 04/08 [id number] Amairani OLINE AMITRIPTYLINE HCL 25 One tablet by AMITRIPTYLINE HCL 39028667561 Velvet D MG TABS mouth daily 04/08 Amairani ASPIRIN 81 MG TBEC One tablet by ASPIRIN 45665977779 Velvet D mouth daily 04/08 Amairani TRIAMTERENE-HCTZ One tablet by TRIAMTERENE-HCTZ 22302783462 Velvet D 37.5-25 MG CAPS mouth daily [...] Bales Active HONEYDEW MELON unknown Critical Active Yolandebernice Anand RN TOPAMAX unknown Critical No Longer Yolandebernice Anand RN Active TORADOL ANAPHYLAXIS Critical Active Yolandebernice Anand RN LYRICA edema Moderate No Longer Yolande [...] albumin, serum by protein electrophoresis Lab Report: Qyuh-5-Vaatajsohazle, S B2MI 1.9 mg/L 0.6-2.4 beta-2 microglobulin [...] protein, total, serum by immunoelectrophoresis Lab Report: [place] Lambda Lt Chn Ser. Mon. FRKAPPALAMBR 0.67 0.26-1.65 free [place]/Lambda ratio FRLAMBDALTCH 1.884 mg/dL Units converted. See [...] NHIS SMOK STATUS Never smoker Tobacco use [facility] Replaced Document: Comprehensive Metabolic [...] INTERVAL new path ms QT interval, electrocardiogram IL INTERVAL 174 ms IL interval, electrocardiogram EKGHRTRATE 89 BPM heart rate [...] ova and parasites identification, stool Lab Report: CBC-Complete Blood Cnt No Diff MPV 9.7 fL 6.2-12.0 mean platelet volume PLATELETS 307 10*3/mm3 150-450 platelet count RDW-SD 47.8 fL 35.1-43.9 H red blood cell distribution width, size density RDW 13.7 % 11.6-14.6 red blood cell distribution width MCHC RBC 31.7 G/GL g/dL 32-36 L mean corpuscular hemoglobin concentration, RBC MCH 31.4 pg 27.0-32.0 mean corpuscular hemoglobin, RBC MCV 98.9 fL 81-99 mean corpuscular volume, RBC HCT 35.3 % 37-47 L hematocrit, blood HGB 11.2 g/dL 12.0-15.0 L hemoglobin, blood RBC M/UL 3.57 10*6/uL 4.2-5.4 L red blood count WBC BLOOD 11.5 10*9/L 4.4-11.0 H leukocyte (white blood cells) count, blood Lab Report: Basic Metabolic Profile (BMP) ANION [...] H Hemoglobin A1c/Hemoglobin.total in Blood Lab Report: Bedside Glucose GLUCOSEPOC 115 mg/dL 70-110 H glucose, point of care Plan of Care Type Date Detail Appointment 01:30 PM Marcelo Main OPTIONS TRADER-C, [address], [address], [place], [address], Pending order Urine Culture Pending order *UAC- [...] Procedures Code Procedure Name Date Entry Date CPT-75389 EKG (In office) 0184-1 *CBC with Differential CPT-85414 Urine Culture 25179-0 *UAC- Urinalysis, Complete w/ Micro 0786-1 *CMP [...] with Differential 0722-1 *IMFIXS Immunofixation, Serum 1685 CPT-51635 EKG (In office) F/U MMM MMM FUA [...]
--- OUTSIDE RECORDS SUMMARY | 2018-10-31 14:02 | XMS RPT_ITS | Clinical Summary ---
:1950 Author Organization [facility], [facility] Address [facility] [place] [address] Phone Care Team Providers Name Role Phone Yoanna Hull MD Unavailable Conditions or Problems Problem Name Problem Onset Status Entry Provider Comment Standard Annotate Code Date Date Description Diarrhea, 41802605 Active Marcelo A Diarrhea recurrent (SNOMED 05/[address]) ECHOCARDIOGRAPHER-C Abnormal 829014587 Active Yolande Lorena Kika Electrocardiogr electrocardi (SNOMED 0 RN am abnormal ogram CT) Recurrent 814957107 Active Marcelo A Recurrent bacterial (SNOMED 04/11 04/[address]) ECHOCARDIOGRAPHER-C cystitis Flank pain, 254458032 Active Efewongbe Right flank right (SNOMED 04/08 04/[address]) Abnormal CBC 007691011 Active Efewongbe Full blood (SNOMED 04/08 04/08 B [address] count abnormal CT) Hypothyroidi 79169835 Active Efewongbe Hypothyroidism sm (SNOMED 04/08 04/[address]) Dysuria 15773263 Active Yoanna Dysuria (SNOMED 04/08 04/[address]) BODY MASS Z68.41 Active Neva Muniz Body mass index INDEX (ICD-10-CM [place], (BMI) 40.0-44.9 ) PA-C 40.0-44.9, ADULT adult Abnormal 657529196 Active Aniyah Muniz Imaging of musculoskele (SNOMED 04/11 04/11 [place] musculoskeletal ivan system CT) system abnormal imaging Monoclonal 737455302 Active Aniyah M Monoclonal gammopathy (SNOMED 03/10 03/[address] [place] [address]) (clinical) 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 Yolande Anand Nonrheumatic tricuspid (ICD-10-CM 12/20 12/20 RN tricuspid (valve) ) (valve) insufficienc insufficiency y Localized 795036377 Active Orlando S Localized edema edema (SNOMED 12/05 12/[address]) Adrenal 262459136 Active Henlawson S 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 Emil cortical y CT) hypofunction Hypertension 92606627 Inactive Orlando S Hypertensive (SNOMED 12/03 12/[address]) Problem excluded from report: Hx of syncope 123449062 Active Yolande A H/O: Disorder and collapse (SNOMED CT) Kika RN Hypertension 17265112 Removed Yolande A Hypertensive (SNOMED CT) Kika RN disorder Medications Medication Instructions Start Stop Generic Name [facility] Provider Date Date CIPRO 500 MG TABS 1 tablet Q12 CIPROFLOXACIN HCL 78193367533 Efewongbe 05/05 Osvaldo Hull MD MACROBID 100 MG CAPS One tablet by 2016/ NITROFURANTOIN 40633760054 Marcelo A mouth twice 04/11 04/18 MONOHYD MACRO Main daily ECHOCARDIOGRAPHER-C WELLBUTRIN SR 150 MG One tablet by BUPROPION HCL 38259112259 Yolande A Kika [id number]-RFI mouth daily 12/03 RN POTASSIUM CHLORIDE One tablet by POTASSIUM CHLORIDE 02122779508 Yolande A Kika ER 20 MEQ CR-TABS mouth daily 12/03 RN VITAMIN D 2000 UNIT One tablet by CHOLECALCIFEROL 51725960187 Yolande A Kika TABS mouth daily 12/03 RN FUROSEMIDE 20 MG One tablet by FUROSEMIDE 81272342523 Yolande A Kika TABS mouth daily 12/03 RN FUROSEMIDE 20 MG One tablet by FUROSEMIDE 39072986092 Orlando S TABS mouth daily 12/03 12/05 MD Emil LASIX 20 MG TABS One tablet by FUROSEMIDE 58649176805 Orlando S mouth daily 12/05 MD Emil LASIX 20 MG TABS One tablet by 2015/ FUROSEMIDE 51324281276 Yolande A Kika mouth daily 12/05 12/20 RN POTASSIUM CHLORIDE One tablet by POTASSIUM CHLORIDE 53078000116 Orlando S TERA ER 10 MEQ mouth every 12/03 TERA CR MD Emil CR-TABS other day POTASSIUM CHLORIDE One tablet by 2015/ POTASSIUM CHLORIDE 85619200433 Yolande A Kika TERA ER 10 MEQ mouth every 12/03 12/20 TERA CR MARIELLA CR-TABS other day WELLBUTRIN XL 300 MG One tablet by BUPROPION HCL 01215875439 Henlawson S [id number] mouth daily 12/03 MD Emil WELLBUTRIN XL 300 MG One tablet by 2015/ BUPROPION HCL 49558534547 Earnest H [id number] mouth daily 12/03 03/19 Shahbaz DO CELEBREX 200 MG CAPS One tablet by CELECOXIB 83558181414 Yolande A Kika mouth daily 12/03 RN HYDROCHLOROTHIAZIDE PRN HYDROCHLOROTHIAZIDE 55254328479 Earnest H 12.5 MG TABS Shahbaz DO HYDROCHLOROTHIAZIDE PRN 2015/ HYDROCHLOROTHIAZIDE 76223399358 Juan M 12.5 MG TABS 05/15 Alam TRULICITY 0.75 DULAGLUTIDE 64989724206 Earnest H MG/0.5ML SOPN Shahbaz DO TRULICITY 0.75 2015/ DULAGLUTIDE 94725977274 Juan M MG/0.5ML SOPN 05/15 Alam NORCO 5-325 MG TABS 1 tablet by HYDROCODONE-ACETAMI 63666992217 Yolande A Kika mouth every 12/03 NOPHEN RN horus as needed NORCO 5-325 MG TABS 1 tablet by 2015/ HYDROCODONE-ACETAMI 67300953344 Juan M mouth every 12/03 NOPHEN Alam horus as needed PROVIGIL 200 MG TABS One tablet by MODAFINIL 57473563462 Orlando S mouth daily 12/05 MD Emil PROVIGIL 200 MG TABS One tablet by 2015/ MODAFINIL 57719623058 Juan M mouth daily 12/05 05/15 Alajohana SINGULAIR 10 MG TABS One tablet by MONTELUKAST SODIUM 14362784846 Henlawson S mouth daily 12/05 MD Emil SINGULAIR 10 MG TABS One tablet by 2015/ MONTELUKAST SODIUM 91116206047 Juan M mouth daily 12/05 05/15 Alajohana PULMICORT FLEXHALER Take as BUDESONIDE 00946309602 Henlawson S 180 MCG/ACT AEPB directed 12/05 MD Emil PULMICORT FLEXHALER Take as 2015/ BUDESONIDE 95714218627 Juan M 180 MCG/ACT AEPB directed 12/05 05/15 Alajohana LOULOU 180 MG TABS One tablet by FEXOFENADINE HCL Henlawson S mouth daily 12/05 MD Emil as needed LOULOU 180 MG TABS One tablet by 2015/ FEXOFENADINE HCL Juan M mouth daily 12/05 05/15 Alajohana as needed ALBUTEROL SULFATE via nebulizer ALBUTEROL SULFATE 09775123957 Orlando S (2.5 MG/3ML) 0.083% 12/05 MD Emil NEBBalta ALBUTEROL SULFATE via nebulizer 2015/ ALBUTEROL SULFATE 43076635106 Juan M (2.5 MG/3ML) 0.083% 12/05 05/15 Alajohana NEBU ULTRAM 50 MG TABS 1 tablet by TRAMADOL HCL 12268070355 Yolande A Kika mouth every 6 12/03 RN hours as needed ULTRAM 50 MG TABS 1 tablet by 2016/ TRAMADOL HCL 56488917260 Velvet D mouth every 6 12/03 08/29 Bales hours as needed AMRIX 15 MG PRN CYCLOBENZAPRINE HCL 26211069631 [facility] [id number] Shahbaz DO AMRIX 15 MG PRN CYCLOBENZAPRINE HCL 20986860004 Velvet D [id number] 04/08 Bales MELATONIN 5 MG TABS Two tablets MELATONIN 40728225954 Yolande Anand by mouth 12/03 RN daily as needed at bedtime VITAMIN D One tablet by ERGOCALCIFEROL 79163337199 Orlando S (ERGOCALCIFEROL) mouth weekly 12/03 MD Emil 20012 UNIT CAPS VITAMIN D3 2000 UNIT 5000 IU daily CHOLECALCIFEROL 74910666250 Orlando S CAPS 12/05 MD Emil PREDNISONE 5 MG TABS PREDNISONE 66444106658 [facility] DO OMEPRAZOLE 10 MG PRN OMEPRAZOLE 31516107056 [facility] CPDR [facility] DO SYNTHROID 50 MCG One tablet by LEVOTHYROXINE 46752003621 Juan M TABS mouth daily. SODIUM Alam MAGNESIUM 250 MG One tablet by MAGNESIUM 51534034703 Juan M TABS mouth daily Alam as needed. MULTIPLE VITAMINS One tablet by MULTIPLE VITAMIN 48497039308 Juan M TABS mouth daily. Alam VITAMIN D3 2000 UNIT One tablet by CHOLECALCIFEROL 50925579642 Juan M TABS mouth daily. Alam CELEBREX 200 MG CAPS One tablet by CELECOXIB 62451577651 Velvet D mouth daily 04/08 Amairani LEUCOVORIN CALCIUM 1 weekly LEUCOVORIN CALCIUM 97887873677 Velvet D 25 MG TABS 04/08 Amairani FOLIC ACID XTRA TABS One tablet by FOLIC 18777729401 Velvet D mouth daily 04/08 [id number] Amairani OLINE AMITRIPTYLINE HCL 25 One tablet by AMITRIPTYLINE HCL 26196124885 Velvet D MG TABS mouth daily 04/08 Amairani ASPIRIN 81 MG TBEC One tablet by ASPIRIN 18239471554 Velvet D mouth daily 04/08 Amairani TRIAMTERENE-HCTZ One tablet by TRIAMTERENE-HCTZ 20303826558 Velvet D 37.5-25 MG CAPS mouth daily [...] albumin, serum by protein electrophoresis Lab Report: Iqae-6-Jvuhrqwhglgil, S B2MI 1.9 mg/L 0.6-2.4 beta-2 microglobulin [...] protein, total, serum by immunoelectrophoresis Lab Report: [place] Lambda Lt Chn Ser. Mon. FRKAPPALAMBR 0.67 0.26-1.65 free [place]/Lambda ratio FRLAMBDALTCH 1.884 mg/dL Units converted. See [...] INTERVAL new path ms QT interval, electrocardiogram ID INTERVAL 174 ms ID interval, electrocardiogram EKGHRTRATE 89 BPM heart rate [...] 1.9 mg/dL 1.8-2.4 magnesium, serum Lab Report: Bedside Glucose GLUCOSEPOC 136 mg/dL 70-110 H glucose, point of care Plan of Care Type Date Detail Appointment 01:30 PM Marcelo Lorena Main ECHOCARDIOGRAPHER-C, [address] [facility] [address] [address], [address], [place], [address], Pending order Urine Culture Pending order *UAC- [...] Procedures Code Procedure Name Date Entry Date CPT-89283 EKG (In office) 0184-1 *CBC with Differential CPT-75443 Urine Culture [id number] *UAC- Urinalysis, Complete w/ Micro 0786-1 *CMP [...] with Differential 0722-1 *IMFIXS Immunofixation, Serum 1685 CPT-76925 EKG (In office) F/U MMM MMM FUA [...]
--- OUTSIDE RECORDS SUMMARY | 2018-10-31 14:02 | XMS RPT_ITS ---
:1950 Author Organization [facility] Address [address] [place] [address] Phone Care Team Providers Name Role Phone LinkLogic Unavailable Conditions or Problems Problem Name Problem Onset Status Entry Provider Comment Standard Annotate Code Date Date Description Diarrhea, 51628729 Active Marcelo A Diarrhea recurrent (SNOMED 05/[address]) AUTISM SPECIALIST-C Abnormal 032695183 Active Yolande Lorena Kika Electrocardiogr electrocardi (SNOMED 0 RN am abnormal ogram CT) Recurrent 581308509 Active Marcelo A Recurrent bacterial (SNOMED 04/11 04/[address]) AUTISM SPECIALIST-C cystitis Flank pain, 318907622 Active Efewongbe Right flank right (SNOMED 04/08 04/[address]) Abnormal CBC 040053902 Active Efewongbe Full blood (SNOMED 04/08 04/08 B [place] count abnormal CT) Hypothyroidi 62824677 Active Efewongbe Hypothyroidism sm (SNOMED 04/08 04/[address]) Dysuria 98191917 Active Efewongbe Dysuria (SNOMED 04/08 04/[address]) BODY MASS Z68.41 Active Neva Muniz Body mass index INDEX (ICD-10-CM [place], (BMI) 40.0-44.9 ) PA-C 40.0-44.9, ADULT adult Abnormal 455101312 Active Aniyah Muniz Imaging of musculoskele (SNOMED 04/11 04/11 [place] musculoskeletal ivan system CT) system abnormal imaging Monoclonal 405337362 Active Aniyah M Monoclonal gammopathy (SNOMED 03/10 03/[address]) (clinical) 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 Yolande Lorena Anand Nonrheumatic tricuspid (ICD-10-CM 12/20 12/20 RN tricuspid (valve) ) (valve) insufficienc insufficiency y Localized 188276697 Active [place] S Localized edema edema (SNOMED 12/05 12/[address]) Adrenal 312994901 Active [place] S 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 Emil cortical y CT) hypofunction Hypertension 40163761 Inactive [place] S Hypertensive (SNOMED 12/03 12/[address]) Problem excluded from report: Hx of syncope 599277424 Active Yolande A H/O: Disorder and collapse (SNOMED CT) Kika RN Hypertension 57623972 Removed Yolande A Hypertensive (SNOMED CT) Kika RN disorder Medications Medication Instructions Start Stop Generic Name [facility] Provider Date Date CIPRO 500 MG TABS 1 tablet Q12 CIPROFLOXACIN HCL 31522265880 [place] 05/05 B Kurtis RENO MACROBID 100 MG CAPS One tablet by 2016/ NITROFURANTOIN 55228526408 Marcelo A mouth twice 04/11 04/18 MONOHYD MACRO Main daily AUTISM SPECIALIST-C WELLBUTRIN SR 150 MG One tablet by BUPROPION HCL 68209430537 Yolande A Kika [id number] mouth daily 25 RN POTASSIUM CHLORIDE One tablet by POTASSIUM CHLORIDE 79580788170 Yolande A Kika ER 20 MEQ CR-TABS mouth daily 25 RN VITAMIN D 2000 UNIT One tablet by CHOLECALCIFEROL 02766191012 Yolande A Kika TABS mouth daily 25 RN FUROSEMIDE 20 MG One tablet by FUROSEMIDE 89818517669 Yolande A Kika TABS mouth daily 12/03 RN FUROSEMIDE 20 MG One tablet by FUROSEMIDE 42408622303 [place] S TABS mouth daily 12/03 12/05 MD Emil LASIX 20 MG TABS One tablet by FUROSEMIDE 85120634995 [place] S mouth daily 12/05 MD Emil LASIX 20 MG TABS One tablet by FUROSEMIDE 06129301179 Yolande A Kika mouth daily 12/05 12/20 RN POTASSIUM CHLORIDE One tablet by POTASSIUM CHLORIDE 34155613576 [place] S TERA ER 10 MEQ mouth every 12/03 TERA CR MD Emil CR-TABS other day POTASSIUM CHLORIDE One tablet by 2015/ POTASSIUM CHLORIDE 68098568787 Yolande A Kika TERA ER 10 MEQ mouth every 12/03 12/20 TERA CR MARIELLA CR-TABS other day WELLBUTRIN XL 300 MG One tablet by BUPROPION HCL 64801144519 [place] S [id number] mouth daily 12/03 MD Emil WELLBUTRIN XL 300 MG One tablet by 2015/ BUPROPION HCL 54719989746 Earnest H [id number] mouth daily 12/03 03/19 Shahbaz DO CELEBREX 200 MG CAPS One tablet by CELECOXIB 61434653595 Yolande A Kika mouth daily 12/03 RN HYDROCHLOROTHIAZIDE PRN HYDROCHLOROTHIAZIDE 47364128033 Earnest H 12.5 MG TABS Shahbaz DO HYDROCHLOROTHIAZIDE PRN 2015/ HYDROCHLOROTHIAZIDE 49297679760 Juan M 12.5 MG TABS 05/15 Alam TRULICITY 0.75 DULAGLUTIDE 65606094340 Earnest H MG/0.5ML SOPN Shahbaz DO TRULICITY 0.75 2015/ DULAGLUTIDE 14882117211 Juan M MG/0.5ML SOPN 05/15 Alam NORCO 5-325 MG TABS 1 tablet by HYDROCODONE-ACETAMI 58712656188 Yolande A Kika mouth every 12/03 NOPHEN RN horus as needed NORCO 5-325 MG TABS 1 tablet by 2015/ HYDROCODONE-ACETAMI 59273189755 Juan M mouth every 12/03 NOPHEN Alam horus as needed PROVIGIL 200 MG TABS One tablet by MODAFINIL 92927961328 [place] S mouth daily 12/05 MD Emil PROVIGIL 200 MG TABS One tablet by 2015/ MODAFINIL 45903789473 Juan M mouth daily 12/05 05/15 [place] SINGULAIR 10 MG TABS One tablet by MONTELUKAST SODIUM 64441994415 [place] S mouth daily 12/05 MD Emil SINGULAIR 10 MG TABS One tablet by 2015/ MONTELUKAST SODIUM 64322601090 Juan M mouth daily 12/05 05/15 Alajohana PULMICORT FLEXHALER Take as BUDESONIDE 86685192064 [place] S 180 MCG/ACT AEPB directed 12/05 MD Emil PULMICORT FLEXHALER Take as 2015/ BUDESONIDE 48675703956 Juan M 180 MCG/ACT AEPB directed 12/05 05/15 Alam LOULOU 180 MG TABS One tablet by FEXOFENADINE HCL [place] S mouth daily 12/05 MD Emil as needed LOULOU 180 MG TABS One tablet by 2015/ FEXOFENADINE HCL Juan M mouth daily 12/05 05/15 [place] as needed ALBUTEROL SULFATE via nebulizer ALBUTEROL SULFATE 29091276819 [place] S (2.5 MG/3ML) 0.083% 12/05 MD Emil NEBU ALBUTEROL SULFATE via nebulizer 2015/ ALBUTEROL SULFATE 18647783965 Juan M (2.5 MG/3ML) 0.083% 12/05 05/15 Alajohana NEBU ULTRAM 50 MG TABS 1 tablet by TRAMADOL HCL 53553032479 Yolande A Kika mouth every 6 12/03 RN hours as needed ULTRAM 50 MG TABS 1 tablet by 2016/ TRAMADOL HCL 06427167531 Velvet D mouth every 6 12/03 08/29 [place] hours as needed AMRIX 15 MG PRN CYCLOBENZAPRINE HCL 29696140549 [facility] [id number] Shahbaz DO AMRIX 15 MG PRN BENZAPRINE HCL 20011600976 Velvet D [id number] 04/08 Amairani MELATONIN 5 MG TABS Two tablets MELATONIN 19964527444 Yolande Anand by mouth 12/03 RN daily as needed at bedtime VITAMIN D One tablet by ERGOCALCIFEROL 52416829549 [place] S (ERGOCALCIFEROL) mouth weekly 12/03 MD Emil 53247 UNIT CAPS VITAMIN D3 2000 UNIT 5000 IU daily CHOLECALCIFEROL 34428004289 [place] S CAPS 12/05 MD Emil PREDNISONE 5 MG TABS PREDNISONE 80876810991 [facility] OMEPRAZOLE 10 MG PRN OMEPRAZOLE 12141035770 [facility] CPDR Shahbaz DO SYNTHROID 50 MCG One tablet by LEVOTHYROXINE 47242927073 Juan M TABS mouth daily. SODIUM Alam MAGNESIUM 250 MG One tablet by MAGNESIUM 73955511216 Juan M TABS mouth daily Alam as needed. MULTIPLE VITAMINS One tablet by MULTIPLE VITAMIN 83730776316 Juan M TABS mouth daily. Alam VITAMIN D3 2000 UNIT One tablet by CHOLECALCIFEROL 07226029401 Juan M TABS mouth daily. Alam CELEBREX 200 MG CAPS One tablet by CELECOXIB 16713637595 Velvet D mouth daily 04/08 Amairani LEUCOVORIN CALCIUM 1 weekly LEUCOVORIN CALCIUM 43764279258 Velvet D 25 MG TABS 04/08 Amairani FOLIC ACID XTRA TABS One tablet by FOLIC 09832793265 Velvet D mouth daily 04/08 [id number] Amairani OLINE AMITRIPTYLINE HCL 25 One tablet by AMITRIPTYLINE HCL 08930642184 Velvet D MG TABS mouth daily 04/08 Amairani ASPIRIN 81 MG TBEC One tablet by ASPIRIN 21571559165 Velvet D mouth daily 04/08 Amairani TRIAMTERENE-HCTZ One tablet by TRIAMTERENE-HCTZ 41273130073 Velvet D 37.5-25 MG CAPS mouth daily [...] albumin, serum by protein electrophoresis Lab Report: [id number]-7-Npjlzuznednlo, S B2MI 1.9 mg/L 0.6-2.4 beta-2 microglobulin [...] protein, total, serum by immunoelectrophoresis Lab Report: [place] Lambda Lt Chn Ser. Mon. FRKAPPALAMBR 0.67 0.26-1.65 free [place]/Lambda ratio FRLAMBDALTCH 1.884 mg/dL Units converted. See [...] NHIS SMOK STATUS Never smoker Tobacco use [facility] Replaced Document: Comprehensive Metabolic Profil [...] INTERVAL new path ms QT interval, electrocardiogram [place] INTERVAL 174 ms [place] interval, electrocardiogram EKGHRTRATE 89 BPM heart rate [...] count, blood Lab Report: Bedside Glucose GLUCOSEPOC 123 mg/dL 70-110 H glucose, point of care Plan of Care Type Date Detail Appointment 01:30 PM Marcelo Main AUTISM SPECIALIST-C, [address] [facility], [address], [place], [address], Pending order Urine Culture Pending order *UAC- [...] Procedures Code Procedure Name Date Entry Date CPT-33777 EKG (In office) 0184-1 *CBC with Differential CPT-34391 Urine Culture 67164-8 *UAC- Urinalysis, Complete w/ Micro 0786-1 *CMP [...] with Differential 0722-1 *IMFIXS Immunofixation, Serum 1685 CPT-61352 EKG (In office) F/U MMM MMM FUA [...]
--- OUTSIDE RECORDS SUMMARY | 2018-10-31 14:03 | XMS RPT_ITS | Clinical Summary ---
:1950 Author Organization [employer] [facility], [facility] Address [facility] [place] [address] Phone Care Team Providers Name Role Phone [address] FREIGHT-Luis E, Marcelo Carrillo Unavailable 330 Conditions or Problems Problem Name Problem Onset Status Entry Provider Comment Standard Annotate Code Date Date Description BODY MASS Z68.41 Active Neva Body mass index INDEX (ICD-10-CM M (BMI) 40.0-44.9, 40.0-44.9 ) [place] adult ADULT , PA-C Abnormal 739611653 Active Aniyah M Imaging of musculoskele (SNOMED 04/11 04/11 [place] musculoskeletal ivan system CT) system abnormal imaging Monoclonal 032441003 Active Aniyah M Monoclonal gammopathy (SNOMED 03/10 03/[address]) (clinical) 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 Yolande A Nonrheumatic tricuspid (ICD-10-CM 12/20 12/20 Kika WOLFF tricuspid (valve) ) (valve) insufficienc insufficiency y Localized 241257602 Active [place] S Localized edema edema (SNOMED 12/05 12/[address]) Adrenal 291063741 Active [place] S Adrenal cortical insufficienc (SNOMED 12/05 12/05 MD Emil hypofunction y CT) Hypertension 31966122 Inactive [place] S Hypertensive (SNOMED 12/03 12/[address]) Problem excluded from report: Hx of syncope 986295183 Active Yolande A H/O: Disorder and collapse (SNOMED CT) Kika WOLFF Hypertension 11988174 Removed Yolande A Hypertensive (SNOMED CT) Kika WOLFF disorder Medications Medication Instructions Start Stop Generic Name [facility] N[facility] Provider Date Date WELLBUTRIN SR 150 MG One tablet by BUPROPION HCL 33225337574 Yolande A [id number] mouth daily 12/03 Kika RN POTASSIUM CHLORIDE One tablet by POTASSIUM CHLORIDE 18389238282 Yolande A ER 20 MEQ CR-TABS mouth daily 12/03 Kika RN VITAMIN D 2000 UNIT One tablet by CHOLECALCIFEROL 94721006439 Yolande A TABS mouth daily 12/03 Kika RN FUROSEMIDE 20 MG One tablet by FUROSEMIDE 70663796403 Yolande A TABS mouth daily 12/03 Kika RN FUROSEMIDE 20 MG One tablet by FUROSEMIDE 05257185532 [place] S TABS mouth daily 12/03 12/05 MD Emil LASIX 20 MG TABS One tablet by FUROSEMIDE 53733987730 [place] S mouth daily 12/05 MD Emil LASIX 20 MG TABS One tablet by FUROSEMIDE 43760505119 Yolande A mouth daily 12/05 12/20 Kika WOLFF POTASSIUM CHLORIDE One tablet by POTASSIUM CHLORIDE 74804376529 [place] S TERA ER 10 MEQ mouth every 12/03 TERA CR MD Emil CR-TABS other day POTASSIUM CHLORIDE One tablet by 2015/ POTASSIUM CHLORIDE 34619768566 Yolande A TERA ER 10 MEQ mouth every 12/03 12/20 TERA CR Kika WOLFF CR-TABS other day WELLBUTRIN XL 300 MG One tablet by BUPROPION HCL 85919829137 [place] S [id number] mouth daily 12/03 MD Emil WELLBUTRIN XL 300 MG One tablet by 2015/ BUPROPION HCL 00615981361 Earnest H [id number] mouth daily 12/03 03/19 Shahbaz DO CELEBREX 200 MG CAPS One tablet by CELECOXIB 76229520550 Yolande A mouth daily 12/03 Kika WOLFF HYDROCHLOROTHIAZIDE PRN HYDROCHLOROTHIAZIDE 62976365709 Earnest H 12.5 MG TABS Shahbaz DO HYDROCHLOROTHIAZIDE PRN 2016/ HYDROCHLOROTHIAZIDE 78716178602 Juan 12.5 MG TABS 1005 M Alam TRULICITY 0.75 DULAGLUTIDE 31878954427 Earnest H MG/0.5ML SOPN Shahbaz DO TRULICITY 0.75 DULAGLUTIDE 71790553637 Juan MG/0.5ML SOPN 10/05 M Alam NORCO 5-325 MG TABS 1 tablet by HYDROCODONE-ACETAMIN 33501595879 Yolande A mouth every 12/03 OPHEN Kika RN horus as needed NORCO 5-325 MG TABS 1 tablet by HYDROCODONE-ACETAMIN 24852355916 Juan mouth every 12/03 OPHEN M Alam horus as needed PROVIGIL 200 MG TABS One tablet by MODAFINIL 31388656370 [place] S mouth daily 12/05 MD Emil PROVIGIL 200 MG TABS One tablet by MODAFINIL 22682990256 Juan mouth daily 12/05 1005 M Alam SINGULAIR 10 MG TABS One tablet by MONTELUKAST SODIUM 44385536871 [place] S mouth daily 12/05 MD Emil SINGULAIR 10 MG TABS One tablet by MONTELUKAST SODIUM 90245323177 Juan mouth daily 12/05 1005 M Alam PULMICORT FLEXHALER Take as BUDESONIDE 87878003351 [place] S 180 MCG/ACT AEPB directed 12/05 MD Emil PULMICORT FLEXHALER Take as BUDESONIDE 04523800314 Juan 180 MCG/ACT AEPB directed 12/05 10/05 M Alam LOULOU 180 MG TABS One tablet by FEXOFENADINE HCL [place] S mouth daily 12/05 MD Emil as needed LOULOU 180 MG TABS One tablet by FEXOFENADINE HCL Juan mouth daily 12/05 10/05 M Alam as needed ALBUTEROL SULFATE via nebulizer ALBUTEROL SULFATE 46312762083 [place] S (2.5 MG/3ML) 0.083% 12/05 MD LAURYN Stein ALBUTEROL SULFATE via nebulizer ALBUTEROL SULFATE 72429863384 Juan (2.5 MG/3ML) 0.083% 12/05 05/15 M Alam NEBU ULTRAM 50 MG TABS 1 tablet by TRAMADOL HCL 27154309431 Yolande A mouth every 6 12/03 Kika RN hours as needed ULTRAM 50 MG TABS 1 tablet by TRAMADOL HCL 49374381179 Velvet D mouth every 12/03 [place] hours as needed AMRIX 15 MG PRN CYCLOBENZAPRINE HCL 10038367679 [facility] H [id number] Shahbaz DO AMRIX 15 MG PRN CYCLOBENZAPRINE HCL 36779951477 Velvet D [id number] 04/08 [place] MELATONIN 5 MG TABS Two tablets MELATONIN 86865898024 Yolande A by mouth 12/03 Kika RN daily as needed at bedtime VITAMIN D One tablet by ERGOCALCIFEROL 99459185816 [place] S (ERGOCALCIFEROL) mouth weekly 12/03 MD Emil 44378 UNIT CAPS VITAMIN D3 2000 UNIT 5000 IU daily CHOLECALCIFEROL 90259786872 [place] S CAPS 12/05 MD Emil PREDNISONE 5 MG TABS PREDNISONE 79225827986 Merged With [facility] Shahbaz DO OMEPRAZOLE 10 MG PRN OMEPRAZOLE 22803442246 Merged With [facility] CPDR Shahbaz DO SYNTHROID 50 MCG One tablet by LEVOTHYROXINE SODIUM 64090086445 Juan TABS mouth daily. M Alam MAGNESIUM 250 MG One tablet by MAGNESIUM 42453543084 Juan TABS mouth daily M Alam as needed. MULTIPLE VITAMINS One tablet by MULTIPLE VITAMIN 99884692565 Juan TABS mouth daily. M Alam VITAMIN D3 2000 UNIT One tablet by CHOLECALCIFEROL 07463051634 Juan TABS mouth daily. M Alam CELEBREX 200 MG CAPS One tablet by CELECOXIB 57836524002 Velvet D mouth daily 04/08 [place] LEUCOVORIN CALCIUM 1 weekly LEUCOVORIN CALCIUM 90680035415 Velvet D 25 MG TABS 04/08 [place] FOLIC ACID XTRA TABS One tablet by FOLIC 72679204973 Velvet D mouth daily 04/08 [id number] [place] LINE AMITRIPTYLINE HCL 25 One tablet by AMITRIPTYLINE HCL 77927309064 Velvet D MG TABS mouth daily 04/08 [place] ASPIRIN 81 MG TBEC One tablet by ASPIRIN 36492420300 Velvet D mouth daily 04/08 [place] TRIAMTERENE-HCTZ One tablet by TRIAMTERENE-HCTZ 32407625355 Velvet D 37.5-25 MG CAPS mouth daily 04/08 [place] as needed Medications Administered No information available. Allergies, Adverse Reactions, Alerts Allergy Name Reaction Description Start Date Severity Status Provider DILANTIN Critical Active Velvet D [place] LYRICA [...] WOLFF Active DILANTIN Rash Severe No Longer Yolandebernice Anand RN Active Results Date Name Value Unit [...] INTERVAL new path ms QT interval, electrocardiogram [place] INTERVAL 166 ms [place] interval, electrocardiogram EKGHRTRATE 92 BPM heart rate on electrocardiogram Clinical Lists Update: Clinical Note DAKOTA 60 % Left ventricular Ejection fraction Office [...] albumin, serum by protein electrophoresis Lab Report: Idmn-8-Ntjehgwdogtei, S B2MI 1.9 mg/L 0.6-2.4 beta-2 microglobulin [...] [Mass] in Urine collected for unspecified duration Office Visit ALCOHOLCOUNS yes Alcoholism counseling (procedure) ORALTOBACUSE Never Tobacco smoking status NHIS SMOK STATUS Never smoker Tobacco use [facility] Office Visit: M MEDS REVIEW Done Documentation of current medications (procedure) Lab Report: CBC W/Diff, Automated LYMPHCT AUTO [...] protein, total, serum by immunoelectrophoresis Lab Report: [place] Lambda Lt Chn Ser. Mon. [id number] . GE use only - for LinkLogic import when terms are not otherwise specified FRKAPPALAMBR 0.67 0.26-1.65 free [place]/Lambda ratio FRLAMBDALTCH 1.884 mg/dL Units converted. See free Lambda light chain lab report for original value. KAPPAFRLTCHN 1.264 mg/dL Units converted. See kappa free light chains lab report for original value. Lab Report: (P) Urinalysis, Complete WBC DIPSTK [...] Urinalysis, white blood cells, culture and sensitivity Plan of Care Type Date Detail Appointment 01:30 PM Marcelo Carrillo [address]elv[address] FREIGHT-C, [address] [facility], [address], [place], [address], Pending order *UAC- Urinalysis, Complete w/ Micro [...] Procedures Code Procedure Name Date Entry Date 0786-1 *CMP Complete Metabolic Panel 3084-1 *Uric [...] with Differential 0722-1 *IMFIXS Immunofixation, Serum 1685 CPT-09197 EKG (In office) F/U MMM MMM FUA 6 months Follow Up Appt 6 months Echo Echocardiogram (complete) Vital Signs Date Name Value Unit Description BMI (Body Mass Index) 41.65 kg/m2 Body Mass Index [Ratio] BP Diastolic 66 mm[Hg] blood pressure, diastolic - 8462-4 BP Systolic 120 mm[Hg] blood pressure, systolic - 8480-6 BSA (Body Surface Area) 2.23 body surface area Heart Rate 88 /min pulse rate E&M - 8867-4 Respiratory Rate 18 /min respiratory rate E&M - 9279-1 Weight Measured 258.1 [lb_av] weight E&M - 3141-9 Body Temperature 98.1 [degF] temperature E&M Body Temperature 36.72 Joi temperature in centigrade E&M Height 167.64 cm height in centimeters E&M Weight Measured 118.09 kg weight in kilograms E&M Height 66 [in_us] height E&M - 8302-2
--- OUTSIDE RECORDS SUMMARY | 2018-10-31 14:03 | XMS RPT_ITS | Clinical Summary ---
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 Flank pain, 261573684 Active Efewongbe Right flank right (SNOMED 04/08 04/[address]) Abnormal CBC 117546222 Active Efewongbe Full blood (SNOMED 04/08 04/08 B Oleg[place] count abnormal CT) Hypothyroidi 02097827 Active Efewongbe Hypothyroidism sm (SNOMED 04/08 04/[address]) Dysuria 02798667 Active Efewongbe Dysuria (SNOMED 04/08 04/[address]) BODY MASS Z68.41 Active Neva Muniz Body mass index INDEX (ICD-10-CM Mederos, (BMI) 40.0-44.9 ) PA-C 40.0-44.9, ADULT adult Abnormal 745538441 Active Aniyah M Imaging of musculoskele (SNOMED 04/11 04/11 Roxanne musculoskeletal ivan system CT) system abnormal imaging Monoclonal 545303169 Active Aniyah M Monoclonal gammopathy (SNOMED 03/10 03/[address]) (clinical) 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 Yolande Anand Nonrheumatic tricuspid (ICD-10-CM 12/20 12/20 RN tricuspid (valve) ) (valve) insufficienc insufficiency y Localized 687498269 Active Bolton S Localized edema edema (SNOMED 12/05 12/[address]) Adrenal 827712575 Active Orlando S 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 Emil cortical y CT) hypofunction Hypertension 04704142 Inactive Bolton S Hypertensive (SNOMED 12/03 12/[address]) Problem excluded from report: Hx of syncope 118421725 Active Yolande Carrillo H/O: Disorder and collapse (SNOMED CT) Kika WOLFF Hypertension 28328962 Removed Yolande Carrillo Hypertensive (SNOMED CT) Kika RN disorder Medications Medication Instructions Start Stop Generic Name ND Provider Date Date CIPRO 500 MG TABS 1 tablet Q12 CIPROFLOXACIN HCL 30346687199 Efewongbe 05/05 B Kurtis RENO MACROBID 100 MG CAPS One tablet by 2016/ NITROFURANTOIN 17733924045 Marcelo A mouth twice 04/11 04/18 MONOHYD MACRO Main daily [employer] 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 WELLBUTRIN SR 150 MG One tablet by BUPROPION HCL 57151976442 Yolande Anand [id number] mouth daily 12/03 RN POTASSIUM CHLORIDE One tablet by POTASSIUM CHLORIDE 93586248261 Yolande Anand ER 20 MEQ CR-TABS mouth daily 12/03 RN VITAMIN D 2000 UNIT One tablet by CHOLECALCIFEROL 16082748921 Yolande A Kika TABS mouth daily 12/03 RN FUROSEMIDE 20 MG One tablet by FUROSEMIDE 72925514898 Yolande A Kika TABS mouth daily 12/03 RN FUROSEMIDE 20 MG One tablet by 2015/ FUROSEMIDE 73467596486 Bolton S TABS mouth daily 12/03 12/05 MD Emil LASIX 20 MG TABS One tablet by FUROSEMIDE 88226000001 Orlando S mouth daily 12/05 MD Emil LASIX 20 MG TABS One tablet by FUROSEMIDE 08998490930 Yolande A Kika mouth daily 12/05 12/20 RN POTASSIUM CHLORIDE One tablet by POTASSIUM CHLORIDE 05364750332 Orlando S TERA ER 10 MEQ mouth every 12/03 TERA CR MD Emil CR-TABS other day POTASSIUM CHLORIDE One tablet by 2015/ POTASSIUM CHLORIDE 34978427908 Yolande A Kika TERA ER 10 MEQ mouth every 12/03 12/20 TERA CR RN CR-TABS other day WELLBUTRIN XL 300 MG One tablet by BUPROPION HCL 43298058066 Bolton S [id number] mouth daily 12/03 MD Emil WELLBUTRIN XL 300 MG One tablet by BUPROPION HCL 72523631669 Earnest H [id number] mouth daily 12/03 03/19 Shahbaz DO CELEBREX 200 MG CAPS One tablet by CELECOXIB 59410386377 Yolande A Kika mouth daily 12/03 RN HYDROCHLOROTHIAZIDE PRN HYDROCHLOROTHIAZIDE 75811507311 Earnest H 12.5 MG TABS Shahbaz DO HYDROCHLOROTHIAZIDE PRN 2015/ HYDROCHLOROTHIAZIDE 15506808787 Juan M 12.5 MG TABS 05/15 Alam TRULICITY 0.75 DULAGLUTIDE 49217314020 Earnest H MG/0.5ML SOPN Shahbaz DO TRULICITY 0.75 2015/ DULAGLUTIDE 77830353362 Juan M MG/0.5ML SOPN 05/15 Alam NORCO 5-325 MG TABS 1 tablet by HYDROCODONE-ACETAMI 71970511613 Yolande A Kika mouth every 12/03 NOPHEN RN horus as needed NORCO 5-325 MG TABS 1 tablet by 2015/ HYDROCODONE-ACETAMI 89834618020 Juan M mouth every 12/03 NOPHEN Alam horus as needed PROVIGIL 200 MG TABS One tablet by MODAFINIL 11866914988 Bolton S mouth daily 12/05 MD Emil PROVIGIL 200 MG TABS One tablet by 2015/ MODAFINIL 51154402174 Juan M mouth daily 12/05 05/15 Alajohana SINGULAIR 10 MG TABS One tablet by MONTELUKAST SODIUM 60101825713 Orlando S mouth daily 12/05 MD Emil SINGULAIR 10 MG TABS One tablet by 2015/ MONTELUKAST SODIUM 96768855774 Juan M mouth daily 12/05 05/15 Alam PULMICORT FLEXHALER Take as BUDESONIDE 26256908778 Bolton S 180 MCG/ACT AEPB directed 12/05 MD Emil PULMICORT FLEXHALER Take as 2015/ BUDESONIDE 26859474874 Juan M 180 MCG/ACT AEPB directed 12/05 05/15 Alajohana LOULOU 180 MG TABS One tablet by FEXOFENADINE HCL Orlando S mouth daily 12/05 MD Emil as needed LOULOU 180 MG TABS One tablet by 2015/ FEXOFENADINE HCL Juan M mouth daily 12/05 05/15 Alajohana as needed ALBUTEROL SULFATE via nebulizer ALBUTEROL SULFATE 21142414114 Orlando S (2.5 MG/3ML) 0.083% 12/05 MD Emil NEBBalta ALBUTEROL SULFATE via nebulizer 2015/ ALBUTEROL SULFATE 36487707820 Juan M (2.5 MG/3ML) 0.083% 12/05 05/15 Arielle NEBU ULTRAM 50 MG TABS 1 tablet by TRAMADOL HCL 49353384976 Yolande A Kika mouth every 6 12/03 RN hours as needed ULTRAM 50 MG TABS 1 tablet by 2016/ TRAMADOL HCL 39485740347 Velvet D mouth every 6 12/03 04/08 Bales hours as needed AMRIX 15 MG PRN CYCLOBENZAPRINE HCL 88049242083 Earnest H [id number] Shahbaz DO AMRIX 15 MG PRN 2016/ CYCLOBENZAPRINE HCL 30923507330 Velvet D [id number] 04/08 Bales MELATONIN 5 MG TABS Two tablets MELATONIN 79366770167 Yolande Anand by mouth 12/03 RN daily as needed at bedtime VITAMIN D One tablet by ERGOCALCIFEROL 38429529547 Orlando S (ERGOCALCIFEROL) mouth weekly 12/03 MD Emil 45316 UNIT CAPS VITAMIN D3 2000 UNIT 5000 IU daily CHOLECALCIFEROL 63508380848 Orlando S CAPS 12/05 MD Emil PREDNISONE 5 MG TABS PREDNISONE 75096210944 [facility] Shahbaz DO OMEPRAZOLE 10 MG PRN OMEPRAZOLE 29995742471 [facility] CPDR Shahbaz DO SYNTHROID 50 MCG One tablet by LEVOTHYROXINE 31276061643 Juan M TABS mouth daily. SODIUM Alam MAGNESIUM 250 MG One tablet by MAGNESIUM 24269231890 Juan M TABS mouth daily Alam as needed. MULTIPLE VITAMINS One tablet by MULTIPLE VITAMIN 23563498957 Juan M TABS mouth daily. Alam VITAMIN D3 2000 UNIT One tablet by CHOLECALCIFEROL 71450191065 Juan M TABS mouth daily. Alam CELEBREX 200 MG CAPS One tablet by CELECOXIB 19049711934 Velvet D mouth daily 04/08 Amairani LEUCOVORIN CALCIUM 1 weekly LEUCOVORIN CALCIUM 92403749723 Velvet D 25 MG TABS 04/08 Amairani FOLIC ACID XTRA TABS One tablet by FOLIC 26049914965 Velvet D mouth daily 04/08 [id number] Amairani OLINE AMITRIPTYLINE HCL 25 One tablet by AMITRIPTYLINE HCL 15603342348 Velvet D MG TABS mouth daily 04/08 Amairani ASPIRIN 81 MG TBEC One tablet by ASPIRIN 32625689460 Velvet D mouth daily 04/08 Amairani TRIAMTERENE-HCTZ One tablet by TRIAMTERENE-HCTZ 47283739561 Velvet D 37.5-25 MG CAPS mouth daily [...] albumin, serum by protein electrophoresis Lab Report: [id number], S B2MI 1.9 mg/L 0.6-2.4 beta-2 microglobulin [...] protein, total, serum by immunoelectrophoresis Lab Report: [place] Lambda Lt Chn Ser. Mon. FRKAPPALAMBR 0.67 0.26-1.65 free [place]/Lambda ratio FRLAMBDALTCH 1.884 mg/dL Units converted. See [...] smoker Tobacco use [facility] Lab Report: (P) Urinalysis, Complete WBC [...] path ms QT interval, electrocardiogram MS INTERVAL 174 ms MS interval, electrocardiogram EKGHRTRATE 89 BPM heart rate on electrocardiogram Plan of Care Type Date Detail Appointment 01:00 PM [address], [address], [place], [address], Appointment 01:30 PM Marcelo BERRY, [address] [facility] [address], [address], [place], [address], Pending order Urine Culture Pending order *UAC- [...] Procedures Code Procedure Name Date Entry Date CPT-70243 EKG (In office) 0786-1 *CMP Complete Metabolic [...] with Differential 0722-1 *IMFIXS Immunofixation, Serum 1685 CPT-93916 EKG (In office) F/U MMM MMM FUA [...]
--- OUTSIDE RECORDS SUMMARY | 2018-10-31 14:03 | XMS RPT_ITS | Clinical Summary ---
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 Flank pain, 686071712 Active Efewongbe Right flank right (SNOMED 04/08 04/[address]) Abnormal CBC 045770666 Active Efewongbe Full blood (SNOMED 04/08 04/08 B [address] count abnormal CT) Hypothyroidi 11583053 Active Efewongbe Hypothyroidism sm (SNOMED 04/08 04/[address]) Dysuria 05340308 Active Efewongbe Dysuria (SNOMED 04/08 04/[address]) BODY MASS Z68.41 Active Neva Muniz Body mass index INDEX (ICD-10-CM Mederos, (BMI) 40.0-44.9 ) PA-C 40.0-44.9, ADULT adult Abnormal 860575738 Active Aniyah M Imaging of musculoskele (SNOMED 04/11 04/11 Roxanne musculoskeletal ivan system CT) system abnormal imaging Monoclonal 064240340 Active Aniyah M Monoclonal gammopathy (SNOMED 03/10 03/[address] [place] [address]) (clinical) 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 Yolande Anand Nonrheumatic tricuspid (ICD-10-CM 5/12 5/12 RN tricuspid (valve) ) (valve) insufficienc insufficiency y Localized 730414273 Active [place] S Localized edema edema (SNOMED 12/05 12/[address]) Adrenal 725908915 Active Orlando S 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 Emil cortical y CT) hypofunction Hypertension 16171291 Inactive Orlando S Hypertensive (SNOMED 12/03 12/[address]) Problem excluded from report: Hx of syncope 802346649 Active Yolande A H/O: Disorder and collapse (SNOMED CT) Kika WOLFF Hypertension 06732130 Removed Yolande A Hypertensive (SNOMED CT) Kika WOLFF disorder Medications Medication Instructions Start Stop Generic Name ND Provider Date Date MACROBID 100 MG CAPS One tablet by 2017/ NITROFURANTOIN 60354086899 Marcelo A mouth twice 04/11 04/18 MONOHYD MACRO Main daily DELIVERY STOCK CLERK-C WELLBUTRIN SR 150 MG One tablet by BUPROPION HCL 33517432629 Yolande A [id number] mouth daily 12/03 Kika RN POTASSIUM CHLORIDE One tablet by POTASSIUM CHLORIDE 70662182873 Yolande A ER 20 MEQ CR-TABS mouth daily 12/03 Kika RN VITAMIN D 2000 UNIT One tablet by CHOLECALCIFEROL 21862523973 Yolande A TABS mouth daily 12/03 Kika RN FUROSEMIDE 20 MG One tablet by FUROSEMIDE 55131200450 Yolande A TABS mouth daily 12/03 Kika RN FUROSEMIDE 20 MG One tablet by 2015/ FUROSEMIDE 49901307507 Orlando S TABS mouth daily 12/03 12/05 MD Emil LASIX 20 MG TABS One tablet by FUROSEMIDE 38666547271 [place] S mouth daily 12/05 MD Emil LASIX 20 MG TABS One tablet by FUROSEMIDE 17225828637 Yolande A mouth daily 12/05 12/20 Kika WOLFF POTASSIUM CHLORIDE One tablet by POTASSIUM CHLORIDE 71502882265 [place] S TERA ER 10 MEQ mouth every 12/03 TERA CR MD Emil CR-TABS other day POTASSIUM CHLORIDE One tablet by 2015/ POTASSIUM CHLORIDE 74822492254 Yolande A TERA ER 10 MEQ mouth every 12/03 12/20 TERA CR Kika WOLFF CR-TABS other day WELLBUTRIN XL 300 MG One tablet by BUPROPION HCL 23177075484 [place] S [id number] mouth daily 12/03 MD Emil WELLBUTRIN XL 300 MG One tablet by 2015/ BUPROPION HCL 22781527515 Earnest H [id number] mouth daily 12/03 03/19 Shahbaz DO CELEBREX 200 MG CAPS One tablet by CELECOXIB 99039734005 Yolande A mouth daily 12/03 Kika RN HYDROCHLOROTHIAZIDE PRN HYDROCHLOROTHIAZIDE 45910613718 Earnest H 12.5 MG TABS Shahbaz DO HYDROCHLOROTHIAZIDE PRN 2015/ HYDROCHLOROTHIAZIDE 24205179639 Juan 12.5 MG TABS 05/15 M Alam TRULICITY 0.75 DULAGLUTIDE 81542186298 Earnest H MG/0.5ML SOPN Shahbaz DO TRULICITY 0.75 2015/ DULAGLUTIDE 30752855043 Juan MG/0.5ML SOPN 1005 M Alam NORCO 5-325 MG TABS 1 tablet by HYDROCODONE-ACETAMIN 48796438616 Yolande A mouth every 12/03 OPHEN Kika RN horus as needed NORCO 5-325 MG TABS 1 tablet by 2015/ HYDROCODONE-ACETAMIN 77209238301 Juan mouth every 12/03 OPHEN M Alam horus as needed PROVIGIL 200 MG TABS One tablet by MODAFINIL 02368622600 Orlando S mouth daily 12/05 MD Emil PROVIGIL 200 MG TABS One tablet by 2015/ MODAFINIL 20507000667 Juan mouth daily 12/0505 M Alam SINGULAIR 10 MG TABS One tablet by MONTELUKAST SODIUM 21200094095 [place] S mouth daily 12/05 MD Emil SINGULAIR 10 MG TABS One tablet by 2015/ MONTELUKAST SODIUM 01911986369 Juan mouth daily 12/0505 M Alam PULMICORT FLEXHALER Take as BUDESONIDE 96798639569 [place] S 180 MCG/ACT AEPB directed 12/05 MD Emil PULMICORT FLEXHALER Take as 2015/ BUDESONIDE 83387894463 Juan 180 MCG/ACT AEPB directed 12/05 1005 M Alam LOULOU 180 MG TABS One tablet by FEXOFENADINE HCL [place] S mouth daily 12/05 MD Emil as needed LOULOU 180 MG TABS One tablet by 2015/ FEXOFENADINE HCL Juan mouth daily 12/0505 M Alam as needed ALBUTEROL SULFATE via nebulizer ALBUTEROL SULFATE 82416356035 [place] S (2.5 MG/3ML) 0.083% 12/05 MD Emil NEBU ALBUTEROL SULFATE via nebulizer 2015/ ALBUTEROL SULFATE 43822421869 Juan (2.5 MG/3ML) 0.083% 12/05 1005 M Alajohana NEBU ULTRAM 50 MG TABS 1 tablet by TRAMADOL HCL 81220663633 Yolande A mouth every 6 12/03 Kika RN hours as needed ULTRAM 50 MG TABS 1 tablet by 2016/ TRAMADOL HCL 90614566155 Velvet D mouth every 6 12/03 04/08 Bales hours as needed AMRIX 15 MG PRN CYCLOBENZAPRINE HCL 31190558405 Earnest H [id number] Shahbaz DO AMRIX 15 MG PRN 2016/ CYCLOBENZAPRINE HCL 44766851705 Velvet D [id number] 04/08 Bales MELATONIN 5 MG TABS Two tablets MELATONIN 93328487529 Yolande A by mouth 12/03 Kika RN daily as needed at bedtime VITAMIN D One tablet by ERGOCALCIFEROL 63370868680 [place] S (ERGOCALCIFEROL) mouth weekly 12/03 MD Emil 74269 UNIT CAPS VITAMIN D3 2000 UNIT 5000 IU daily CHOLECALCIFEROL 56527349061 [place] S CAPS 12/05 MD Emil PREDNISONE 5 MG TABS PREDNISONE 31752824880 [facility] Shahbaz DO OMEPRAZOLE 10 MG PRN OMEPRAZOLE 89992804684 [facility] CPDR Shahbaz DO SYNTHROID 50 MCG One tablet by LEVOTHYROXINE SODIUM 90435614747 Juan TABS mouth daily. M Alam MAGNESIUM 250 MG One tablet by MAGNESIUM 77373347106 Juan TABS mouth daily M Alam as needed. MULTIPLE VITAMINS One tablet by MULTIPLE VITAMIN 84423392947 Juan TABS mouth daily. M Alam VITAMIN D3 2000 UNIT One tablet by CHOLECALCIFEROL 91084097935 Juan TABS mouth daily. M Alam CELEBREX 200 MG CAPS One tablet by CELECOXIB 94948855400 Velvet D mouth daily 04/08 Amairani LEUCOVORIN CALCIUM 1 weekly LEUCOVORIN CALCIUM 10115314705 Velvet D 25 MG TABS 04/08 Amairani FOLIC ACID XTRA TABS One tablet by FOLIC 09948444324 Velvet D mouth daily 04/08 [id number] Amairani LINE AMITRIPTYLINE HCL 25 One tablet by AMITRIPTYLINE HCL 60338996207 Velvet D MG TABS mouth daily 04/08 Amairani ASPIRIN 81 MG TBEC One tablet by ASPIRIN 34601945182 Velvet D mouth daily 04/08 Amairani TRIAMTERENE-HCTZ One tablet by TRIAMTERENE-HCTZ 06872965253 Velvet D 37.5-25 MG CAPS mouth daily 04/08 Amairani as needed Medications Administered No information available. Allergies, Adverse Reactions, Alerts Allergy Name Reaction Start Date Severity Status Provider Description MORPHINE SULFATE Severe Active Yoanna Riley (PF) Kurtis RENO DILANTIAnkur Critical Active Velvet D Amairani LYRICA Unknown No Longer Velvet D Amairani Active TOPAMAX Unknown No Longer Velvet D Amairani Active DILANTIN Unknown No Longer Velvet D Amairani Active HONEYDEW MELON unknown Critical Active Yolandebernice Anand RN TOPAMAX unknown Critical No Longer Yolande Anand RN Active TORADOL ANAPHYLAXIS Critical Active [...] INTERVAL new path ms QT interval, electrocardiogram [place] INTERVAL 166 ms W[place] interval, electrocardiogram EKGHRTRATE 92 BPM heart rate [...] albumin, serum by protein electrophoresis Lab Report: [id number], S B2MI 1.9 mg/L 0.6-2.4 beta-2 microglobulin [...] protein, total, serum by immunoelectrophoresis Lab Report: [place] Lambda Lt Chn Ser. Mon. FRKAPPALAMBR 0.67 0.26-1.65 free [place]/Lambda ratio FRLAMBDALTCH 1.884 mg/dL Units converted. See [...] NHIS SMOK STATUS Never smoker Tobacco use [facility] Lab Report: (P) Urinalysis, Complete WBC [...] Date Detail Appointment 01:30 PM Marcelo Main [facility], [address], [address], [place], [address], Pending order Urine Culture Pending order *UAC- [...] with Differential 0722-1 *IMFIXS Immunofixation, Serum 1685 CPT-83789 EKG (In office) F/U MMM MMM FUA [...]
--- OUTSIDE RECORDS SUMMARY | 2018-10-31 14:03 | XMS RPT_ITS | Clinical Summary ---
:1950 Author Organization [facility], [facility] Address [facility] [place] [address] Phone Care Team Providers Name Role Phone Etelvina POWER SYSTEM ENGINEER-C, Marcelo A Unavailable 330 Conditions or Problems Problem Name Problem Onset Status Entry Provider Comment Standard Annotate Code Date Date Description Flank pain, 477533168 Active Efewongbe Right flank right (SNOMED 04/08 04/[address]) Abnormal CBC 278178431 Active Efewongbe Full blood (SNOMED 04/08 04/08 B [place] count abnormal CT) Hypothyroidi 95384214 Active Efewongbe Hypothyroidism sm (SNOMED 04/08 04/[address]) Dysuria 75961613 Active Efewongbe Dysuria (SNOMED 04/08 04/[address]) BODY MASS Z68.41 Active Neva Muniz Body mass index INDEX (ICD-10-CM [place], (BMI) 40.0-44.9 ) PA-C 40.0-44.9, ADULT adult Abnormal 194256653 Active Aniyah M Imaging of musculoskele (SNOMED 04/11 04/11 Roxanne musculoskeletal ivan system CT) system abnormal imaging Monoclonal 044099906 Active Aniyah M Monoclonal gammopathy (SNOMED 03/10 03/[address]) (clinical) 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 Yolande Anand Nonrheumatic tricuspid (ICD-10-CM 12/20 12/20 RN tricuspid (valve) ) (valve) insufficienc insufficiency y Localized 773038858 Active Boyce S Localized edema edema (SNOMED 12/05 12/[address]) Adrenal 071392478 Active Boyce S 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 Emil cortical y CT) hypofunction Hypertension 80377972 Inactive Orlando S Hypertensive (SNOMED 12/03 12/[address]) Problem excluded from report: Hx of syncope 658985983 Active Yolande A H/O: Disorder and collapse (SNOMED CT) Kika WOLFF Hypertension 19358431 Removed Yolande A Hypertensive (SNOMED CT) Kika WOLFF disorder Medications Medication Instructions Start Stop Generic Name NDC Provider Date Date WELLBUTRIN SR 150 MG One tablet by BUPROPION HCL [id number] Yolande A [id number] mouth daily 12/03 Kika RN POTASSIUM CHLORIDE One tablet by POTASSIUM CHLORIDE 85047817144 Yolande A ER 20 MEQ CR-TABS mouth daily 12/03 Kika RN VITAMIN D 2000 UNIT One tablet by CHOLECALCIFEROL 88841151527 Yolande A TABS mouth daily 12/03 Kika RN FUROSEMIDE 20 MG One tablet by FUROSEMIDE 32599079006 Yolande A TABS mouth daily 12/03 Kika RN FUROSEMIDE 20 MG One tablet by 2015/ FUROSEMIDE 96278123429 Orlando S TABS mouth daily 12/03 12/05 MD Emil LASIX 20 MG TABS One tablet by FUROSEMIDE 14340386269 Boyce S mouth daily 12/05 MD Emil LASIX 20 MG TABS One tablet by FUROSEMIDE 92465391526 Yolande A mouth daily 12/05 12/20 Kika WOLFF POTASSIUM CHLORIDE One tablet by POTASSIUM CHLORIDE 76517983344 Boyce S TERA ER 10 MEQ mouth every 12/03 TERA MODESTA Stein MD CR-TABS other day POTASSIUM CHLORIDE One tablet by POTASSIUM CHLORIDE 09678429909 Yolande A TERA ER 10 MEQ mouth every 12/03 12/20 TERA CR Kika WOLFF CR-TABS other day WELLBUTRIN XL 300 MG One tablet by BUPROPION HCL 14175589542 Orlando S [id number] mouth daily 12/03 MD Emil WELLBUTRIN XL 300 MG One tablet by 2015/ BUPROPION HCL 14907737840 Earnest H [id number] mouth daily 12/03 03/19 Shahbaz DO CELEBREX 200 MG CAPS One tablet by CELECOXIB 35468304938 Yolande A mouth daily 12/03 Kika RN HYDROCHLOROTHIAZIDE PRN HYDROCHLOROTHIAZIDE 21789060997 Earnest H 12.5 MG TABS Shahbaz DO HYDROCHLOROTHIAZIDE PRN 2015/ HYDROCHLOROTHIAZIDE 69334491066 Juan 12.5 MG TABS 05/15 M Alam TRULICITY 0.75 DULAGLUTIDE 02048167659 Earnest H MG/0.5ML SOPN Shahbaz DO TRULICITY 0.75 2015/ DULAGLUTIDE 31441287356 Juan MG/0.5ML SOPN 05/15 M Alam NORCO 5-325 MG TABS 1 tablet by HYDROCODONE-ACETAMIN 74407529785 Yolande A mouth every 12/03 OPHEN Kika RN horus as needed NORCO 5-325 MG TABS 1 tablet by 2015/ HYDROCODONE-ACETAMIN 01126476617 Juan mouth every 12/03 OPHEN M Alam horus as needed PROVIGIL 200 MG TABS One tablet by MODAFINIL 46469979673 Boyce S mouth daily 12/05 MD Emil PROVIGIL 200 MG TABS One tablet by 2015/ MODAFINIL 87185598598 Juan mouth daily 12/05 1005 M Alam SINGULAIR 10 MG TABS One tablet by MONTELUKAST SODIUM 82445425285 Boyce S mouth daily 12/05 MD Emil SINGULAIR 10 MG TABS One tablet by 2015/ MONTELUKAST SODIUM 27272996470 Juan mouth daily 12/05 1005 M Alam PULMICORT FLEXHALER Take as BUDESONIDE 14401643572 Orlando S 180 MCG/ACT AEPB directed 12/05 MD Emil PULMICORT FLEXHALER Take as 2015/ BUDESONIDE 76847268638 Juan 180 MCG/ACT AEPB directed 12/05 1005 M Alam LOULOU 180 MG TABS One tablet by FEXOFENADINE HCL Orlando S mouth daily 12/05 MD Emil as needed LOULOU 180 MG TABS One tablet by 2015/ FEXOFENADINE HCL Juan mouth daily 12/05 1005 M Alam as needed ALBUTEROL SULFATE via nebulizer ALBUTEROL SULFATE 26114899589 Orlando S (2.5 MG/3ML) 0.083% 12/05 MD Emil NEBU ALBUTEROL SULFATE via nebulizer 2015/ ALBUTEROL SULFATE 56295093599 Juan (2.5 MG/3ML) 0.083% 12/05 05/15 M Alam NEBU ULTRAM 50 MG TABS 1 tablet by TRAMADOL HCL 44407250432 Yolande A mouth every 6 12/03 Kika RN hours as needed ULTRAM 50 MG TABS 1 tablet by 2016/ TRAMADOL HCL 70679391464 Velvet D mouth every 6 12/03 04/08 Bales hours as needed AMRIX 15 MG PRN CYCLOBENZAPRINE HCL 00134332578 Earnest H [id number] Shahbaz DO AMRIX 15 MG PRN 2016/ CYCLOBENZAPRINE HCL 31789058680 Velvet D [id number] 04/08 Bales MELATONIN 5 MG TABS Two tablets MELATONIN 04651555936 Yolande A by mouth 12/03 Kika RN daily as needed at bedtime VITAMIN D One tablet by ERGOCALCIFEROL 66850274953 Orlando S (ERGOCALCIFEROL) mouth weekly 12/03 MD Emil 44582 UNIT CAPS VITAMIN D3 2000 UNIT 5000 IU daily CHOLECALCIFEROL 83384829715 Boyce S CAPS 12/05 MD Emil PREDNISONE 5 MG TABS PREDNISONE 84113506949 Earnest H Shahbaz DO OMEPRAZOLE 10 MG PRN OMEPRAZOLE 11457532065 Earnest H CPDR Shahbaz DO SYNTHROID 50 MCG One tablet by LEVOTHYROXINE SODIUM 80434061684 Juan TABS mouth daily. M Alam MAGNESIUM 250 MG One tablet by MAGNESIUM 52244123956 Juan TABS mouth daily M Alam as needed. MULTIPLE VITAMINS One tablet by MULTIPLE VITAMIN 29231327660 Juan TABS mouth daily. M Alam VITAMIN D3 2000 UNIT One tablet by CHOLECALCIFEROL 98860843449 Juna TABS mouth daily. M Alam CELEBREX 200 MG CAPS One tablet by CELECOXIB 44601469667 Velvet D mouth daily 04/08 Bales LEUCOVORIN CALCIUM 1 weekly LEUCOVORIN CALCIUM 04139547023 Velvet D 25 MG TABS 04/08 Bales FOLIC ACID XTRA TABS One tablet by FOLIC 64634264919 Velvet D mouth daily 04/08 [id number] Bales LINE AMITRIPTYLINE HCL 25 One tablet by AMITRIPTYLINE HCL 03717568252 Velvet D MG TABS mouth daily 04/08 Bales ASPIRIN 81 MG TBEC One tablet by ASPIRIN 80115588839 Velvet D mouth daily 04/08 Bales TRIAMTERENE-HCTZ One tablet by TRIAMTERENE-HCTZ 76005158002 Velvet D 37.5-25 MG CAPS mouth daily [...] INTERVAL new path ms QT interval, electrocardiogram DE INTERVAL 166 ms DE interval, electrocardiogram EKGHRTRATE 92 BPM heart rate [...] albumin, serum by protein electrophoresis Lab Report: [id number], S B2MI 1.9 mg/L 0.6-2.4 beta-2 microglobulin [...] protein, total, serum by immunoelectrophoresis Lab Report: [place] Lambda Lt Chn Ser. Mon. [id number] . GE use only - for [employer] import when terms are not otherwise specified FRKAPPALAMBR 0.67 0.26-1.65 free [place]/Lambda ratio FRLAMBDALTCH 1.884 mg/dL Units converted. 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
--- OUTSIDE RECORDS SUMMARY | 2018-10-31 14:03 | XMS RPT_ITS | Clinical Summary ---
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 Abnormal 527856600 Active Yolande Lorena Kika Electrocardiogr electrocardi (SNOMED 0 RN am abnormal ogram CT) Recurrent 908584868 Active Marcelo A Recurrent bacterial (SNOMED 04/11 04/[address]) 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 cystitis Flank pain, 399159687 Active Efewongbe Right flank right (SNOMED 04/08 04/[address]) Abnormal CBC 331383090 Active Efewongbe Full blood (SNOMED 04/08 04/08 B [address] count abnormal CT) Hypothyroidi 09417967 Active Efewongbe Hypothyroidism sm (SNOMED 04/08 04/[address]) Dysuria 83191663 Active Yoanna Dysuria (SNOMED 04/08 04/[address]) BODY MASS Z68.41 Active Neva Muniz Body mass index INDEX (ICD-10-CM [place], (BMI) 40.0-44.9 ) PA-C 40.0-44.9, ADULT adult Abnormal 850040421 Active Aniyah Muniz Imaging of musculoskele (SNOMED 04/11 04/11 Golden musculoskeletal ivan system CT) system abnormal imaging Monoclonal 698682205 Active Aniyah M Monoclonal gammopathy (SNOMED 03/10 03/[address]) (clinical) 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 Yolande Anand Nonrheumatic tricuspid (ICD-10-CM 12/20 12/20 RN tricuspid (valve) ) (valve) insufficienc insufficiency y Localized 101804562 Active Orlando S Localized edema edema (SNOMED 12/05 12/[address]) Adrenal 748205136 Active Fairfield S 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 Emil cortical y CT) hypofunction Hypertension 61931947 Inactive Orlando S Hypertensive (SNOMED 12/03 12/[address]) Problem excluded from report: Hx of syncope 907799081 Active Yolande A H/O: Disorder and collapse (SNOMED CT) Kika RN Hypertension 32205315 Removed Yolande A Hypertensive (SNOMED CT) Kika RN disorder Medications Medication Instructions Start Stop Generic Name [facility] Provider Date Date CIPRO 500 MG TABS 1 tablet Q12 CIPROFLOXACIN HCL 52483714993 Efewongbe 05/05 Osvaldo Hull MD MACROBID 100 MG CAPS One tablet by 2016/ NITROFURANTOIN 84154560526 Marcelo A mouth twice 04/11 04/18 MONOHYD MACRO Main daily 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 WELLBUTRIN SR 150 MG One tablet by BUPROPION HCL 55870605294 Yolande A Kika [id number] mouth daily 12/03 RN POTASSIUM CHLORIDE One tablet by POTASSIUM CHLORIDE 00854552451 Yolande A Kika ER 20 MEQ CR-TABS mouth daily 12/03 RN VITAMIN D 2000 UNIT One tablet by CHOLECALCIFEROL 86983650789 Yolande A Kika TABS mouth daily 12/03 RN FUROSEMIDE 20 MG One tablet by FUROSEMIDE 74936969997 Yolande A Kika TABS mouth daily 12/03 RN FUROSEMIDE 20 MG One tablet by FUROSEMIDE 79590427850 [place] S TABS mouth daily 12/03 12/05 MD Emil LASIX 20 MG TABS One tablet by FUROSEMIDE 05959489043 [place] S mouth daily 12/05 MD Emil LASIX 20 MG TABS One tablet by 2015/ FUROSEMIDE 48096298709 Yolande A Kika mouth daily 12/05 12/20 RN POTASSIUM CHLORIDE One tablet by POTASSIUM CHLORIDE 70928500563 [place] S TERA ER 10 MEQ mouth every 12/03 TERA CR MD Emil CR-TABS other day POTASSIUM CHLORIDE One tablet by 2015/ POTASSIUM CHLORIDE 93078434133 Yolande A Kika TERA ER 10 MEQ mouth every 12/03 12/20 TERA CR MARIELLA CR-TABS other day WELLBUTRIN XL 300 MG One tablet by BUPROPION HCL 56675282380 Orlando S [id number] mouth daily 12/03 MD Emil WELLBUTRIN XL 300 MG One tablet by 2015/ BUPROPION HCL 19384011397 Earnest H [id number] mouth daily 12/03 03/19 Shahbaz DO CELEBREX 200 MG CAPS One tablet by CELECOXIB 00025121909 Yolande A Kika mouth daily 12/03 RN HYDROCHLOROTHIAZIDE PRN HYDROCHLOROTHIAZIDE 26728187033 Earnest H 12.5 MG TABS Shahbaz DO HYDROCHLOROTHIAZIDE PRN 2015/ HYDROCHLOROTHIAZIDE 67446522572 Juan M 12.5 MG TABS 05/15 Alam TRULICITY 0.75 DULAGLUTIDE 40002737340 Earnest H MG/0.5ML SOPN Shahbaz DO TRULICITY 0.75 2015/ DULAGLUTIDE 09259194760 Juan M MG/0.5ML SOPN 05/15 Alam NORCO 5-325 MG TABS 1 tablet by HYDROCODONE-ACETAMI 31204649962 Yolande A Kika mouth every 12/03 NOPHEN RN horus as needed NORCO 5-325 MG TABS 1 tablet by 2015/ HYDROCODONE-ACETAMI 31584656842 Juan M mouth every 12/03 NOPHEN Alam horus as needed PROVIGIL 200 MG TABS One tablet by MODAFINIL 99434985182 [place] S mouth daily 12/05 MD Emil PROVIGIL 200 MG TABS One tablet by 2015/ MODAFINIL 27575004042 Juan M mouth daily 12/05 05/15 Alajohana SINGULAIR 10 MG TABS One tablet by MONTELUKAST SODIUM 86172057194 Orlando S mouth daily 12/05 MD Emil SINGULAIR 10 MG TABS One tablet by 2015/ MONTELUKAST SODIUM 04350100911 Juan M mouth daily 12/05 05/15 Alajohana PULMICORT FLEXHALER Take as BUDESONIDE 56282146560 Orlando S 180 MCG/ACT AEPB directed 12/05 MD Emil PULMICORT FLEXHALER Take as 2015/ BUDESONIDE 01974005952 Juan M 180 MCG/ACT AEPB directed 12/05 05/15 Alajohana LOULOU 180 MG TABS One tablet by FEXOFENADINE HCL [place] S mouth daily 12/05 MD Emil as needed LOULOU 180 MG TABS One tablet by 2015/ FEXOFENADINE HCL Juan M mouth daily 12/05 05/15 Alajohana as needed ALBUTEROL SULFATE via nebulizer ALBUTEROL SULFATE 11722776867 [place]field S (2.5 MG/3ML) 0.083% 12/05 MD Emil NEBBalta ALBUTEROL SULFATE via nebulizer 2015/ ALBUTEROL SULFATE 10712507152 Juan M (2.5 MG/3ML) 0.083% 12/05 05/15 Alajohana NEBU ULTRAM 50 MG TABS 1 tablet by TRAMADOL HCL 96806902810 Yolande A Kika mouth every 6 12/03 RN hours as needed ULTRAM 50 MG TABS 1 tablet by 2016/ TRAMADOL HCL 96193180948 Velvet D mouth every 6 12/03 08/29 Bales hours as needed AMRIX 15 MG PRN CYCLOBENZAPRINE HCL 03815163297 [facility] [id number] Shahbaz DO AMRIX 15 MG PRN CYCLOBENZAPRINE HCL 39685610860 Velvet D [id number] 04/08 Bales MELATONIN 5 MG TABS Two tablets MELATONIN 28628890788 Yolande Anand by mouth 12/03 RN daily as needed at bedtime VITAMIN D One tablet by ERGOCALCIFEROL 64329343216 [place]field S (ERGOCALCIFEROL) mouth weekly 12/03 MD Emil 78500 UNIT CAPS VITAMIN D3 2000 UNIT 5000 IU daily CHOLECALCIFEROL 56535633642 Orlando S CAPS 12/05 MD Emil PREDNISONE 5 MG TABS PREDNISONE 25930742911 [facility] DO OMEPRAZOLE 10 MG PRN OMEPRAZOLE 51174514403 [facility] CPDR [facility] DO SYNTHROID 50 MCG One tablet by LEVOTHYROXINE 55940827759 Juan M TABS mouth daily. SODIUM Alam MAGNESIUM 250 MG One tablet by MAGNESIUM 20139021496 Juan M TABS mouth daily Alam as needed. MULTIPLE VITAMINS One tablet by MULTIPLE VITAMIN 62551253764 Juan M TABS mouth daily. Alam VITAMIN D3 2000 UNIT One tablet by CHOLECALCIFEROL 50708914124 Juna M TABS mouth daily. Alam CELEBREX 200 MG CAPS One tablet by CELECOXIB 23383766629 Velvet D mouth daily 04/08 Amairani LEUCOVORIN CALCIUM 1 weekly LEUCOVORIN CALCIUM 31832118473 Velvet D 25 MG TABS 04/08 Amairani FOLIC ACID XTRA TABS One tablet by FOLIC 98095425114 Velvet D mouth daily 04/08 [id number] Amairani OLINE AMITRIPTYLINE HCL 25 One tablet by AMITRIPTYLINE HCL 98612572428 Velvet D MG TABS mouth daily 04/08 Amairani ASPIRIN 81 MG TBEC One tablet by ASPIRIN 37743848098 Velvet D mouth daily 04/08 Amairani TRIAMTERENE-HCTZ One tablet by TRIAMTERENE-HCTZ 64961509897 Velvet D 37.5-25 MG CAPS mouth daily [...] albumin, serum by protein electrophoresis Lab Report: [id number], S B2MI 1.9 mg/L 0.6-2.4 beta-2 microglobulin [...] protein, total, serum by immunoelectrophoresis Lab Report: [place] Lambda Lt Chn Ser. Mon. FRKAPPALAMBR 0.67 0.26-1.65 free [place]/Lambda ratio FRLAMBDALTCH 1.884 mg/dL Units converted. See [...] NHIS SMOK STATUS Never smoker Tobacco use [facility] Replaced Document: Comprehensive Metabolic Profil [...] INTERVAL new path ms QT interval, electrocardiogram [place] INTERVAL 174 ms [place] interval, electrocardiogram EKGHRTRATE 89 BPM heart rate [...] PARASITE . ova and parasites identification, stool Plan of Care Type Date Detail Appointment 01:30 PM Marcelo WARREN-C, [address], [address], [place], [address], Pending order Urine Culture Pending order *UAC- [...] Procedures Code Procedure Name Date Entry Date CPT-29967 EKG (In office) 0184-1 *CBC with Differential CPT-77880 Urine Culture 01781-7 *UAC- Urinalysis, Complete w/ Micro 0786-1 *CMP [...] with Differential 0722-1 *IMFIXS Immunofixation, Serum 1685 CPT-32800 EKG (In office) F/U MMM MMM FUA [...]
--- OUTSIDE RECORDS SUMMARY | 2018-10-31 14:03 | XMS RPT_ITS | Clinical Summary ---
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 Abnormal 122424078 Active Yolande Lorena Kika Electrocardiogr electrocardi (SNOMED RN am abnormal ogram CT) Recurrent 583628396 Active Marcelo A Recurrent bacterial (SNOMED 04/11 04/[address]) 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-C cystitis Flank pain, 704711860 Active Efewongbe Right flank right (SNOMED 04/08 04/[address]) Abnormal CBC 680426281 Active Efewongbe Full blood (SNOMED 04/08 04/08 B [place] count abnormal CT) Hypothyroidi 35184291 Active Efewongbe Hypothyroidism sm (SNOMED 04/08 04/[address]) Dysuria 43967989 Active Efewongbe Dysuria (SNOMED 04/08 04/[address]) BODY MASS Z68.41 Active Neva Muniz Body mass index INDEX (ICD-10-CM [place], (BMI) 40.0-44.9 ) PA-C 40.0-44.9, ADULT adult Abnormal 343379672 Active Aniyah Muniz Imaging of musculoskele (SNOMED 04/11 04/11 [employer] musculoskeletal ivan system CT) system abnormal imaging Monoclonal 845086213 Active Aniyah M Monoclonal gammopathy (SNOMED 03/10 03/[address]) (clinical) 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 Yolande Anand Nonrheumatic tricuspid (ICD-10-CM 12/20 12/20 RN tricuspid (valve) ) (valve) insufficienc insufficiency y Localized 999630976 Active Bairdford S Localized edema edema (SNOMED 12/05 12/[address]) Adrenal 735159358 Active [place]airdford S 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 Emli cortical y CT) hypofunction Hypertension 76551280 Inactive Orlando S Hypertensive (SNOMED 12/03 12/[address]) Problem excluded from report: Hx of syncope 889338156 Active Yolande A H/O: Disorder and collapse (SNOMED CT) Kika RN Hypertension 27899856 Removed Yolande Carrillo Hypertensive (SNOMED CT) Kika RN disorder Medications Medication Instructions Start Stop Generic Name NDC Provider Date Date CIPRO 500 MG TABS 1 tablet Q12 CIPROFLOXACIN HCL 54915996087 [facility]be 05/05 Osvaldo Hull MD MACROBID 100 MG CAPS One tablet by 2016/ NITROFURANTOIN 67367185091 Marcelo A mouth twice 04/11 04/18 MONOHYD MACRO Main daily 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-C WELLBUTRIN SR 150 MG One tablet by BUPROPION HCL 16035163558 Yolande A Kika NH00L-NAC mouth daily 12/03 RN POTASSIUM CHLORIDE One tablet by POTASSIUM CHLORIDE 93118934372 Yolande A Kika ER 20 MEQ CR-TABS mouth daily 12/03 RN VITAMIN D 2000 UNIT One tablet by CHOLECALCIFEROL 75135366773 Yolande A Kika TABS mouth daily 12/03 RN FUROSEMIDE 20 MG One tablet by FUROSEMIDE 89575619843 Yolande A Kika TABS mouth daily 12/03 RN FUROSEMIDE 20 MG One tablet by FUROSEMIDE 68204747488 Orlando S TABS mouth daily 12/03 12/05 MD Emil LASIX 20 MG TABS One tablet by FUROSEMIDE 13282215280 [place] S mouth daily 12/05 MD Emil LASIX 20 MG TABS One tablet by FUROSEMIDE 62761808489 Yolande A Kika mouth daily 12/05 12/20 RN POTASSIUM CHLORIDE One tablet by POTASSIUM CHLORIDE 25578949897 Orlando S TERA ER 10 MEQ mouth every 12/03 TERA CR MD Emil CR-TABS other day POTASSIUM CHLORIDE One tablet by 2015/ POTASSIUM CHLORIDE 14063404792 Yolande A Kika TERA ER 10 MEQ mouth every 12/03 12/20 TERA CR RN CR-TABS other day WELLBUTRIN XL 300 MG One tablet by BUPROPION HCL 10345974591 Orlando S [id number]-DNA mouth daily 12/03 MD Emil WELLBUTRIN XL 300 MG One tablet by 2015/ BUPROPION HCL 66394339135 Earnest H VB94C-EDT mouth daily 12/03 03/19 Shahbaz DO CELEBREX 200 MG CAPS One tablet by CELECOXIB 49752869761 Yolande A Kika mouth daily 12/03 RN HYDROCHLOROTHIAZIDE PRN HYDROCHLOROTHIAZIDE 74680838209 Earnest H 12.5 MG TABS Shahbaz DO HYDROCHLOROTHIAZIDE PRN 2015/ HYDROCHLOROTHIAZIDE 07831128180 Juan M 12.5 MG TABS 05/15 Alam TRULICITY 0.75 DULAGLUTIDE 92836668050 Earnest H MG/0.5ML SOPN Shahbaz DO TRULICITY 0.75 2015/ DULAGLUTIDE 96785576515 Juan M MG/0.5ML SOPN 05/15 Alam NORCO 5-325 MG TABS 1 tablet by HYDROCODONE-ACETAMI 25054075106 Yolande A Kika mouth every 12/03 NOPHEN RN horus as needed NORCO 5-325 MG TABS 1 tablet by 2015/ HYDROCODONE-ACETAMI 21562058929 Juan M mouth every 12/03 NOPHEN Alam horus as needed PROVIGIL 200 MG TABS One tablet by MODAFINIL 51184806063 Orlando S mouth daily 12/05 MD Emil PROVIGIL 200 MG TABS One tablet by 2015/ MODAFINIL 94313607401 Juan M mouth daily 12/05 05/15 Alam SINGULAIR 10 MG TABS One tablet by MONTELUKAST SODIUM 71640547905 Orlando S mouth daily 12/05 MD Emil SINGULAIR 10 MG TABS One tablet by 2015/ MONTELUKAST SODIUM 92960208848 Juan M mouth daily 12/05 05/15 Alajohana PULMICORT FLEXHALER Take as BUDESONIDE 43891437635 Orlando S 180 MCG/ACT AEPB directed 12/05 MD Emil PULMICORT FLEXHALER Take as 2015/ BUDESONIDE 54558882596 Juan M 180 MCG/ACT AEPB directed 12/05 05/15 Alam LOULOU 180 MG TABS One tablet by FEXOFENADINE HCL Orlando S mouth daily 12/05 MD Emil as needed LOULOU 180 MG TABS One tablet by 2015/ FEXOFENADINE HCL Juan M mouth daily 12/05 05/15 Alajohana as needed ALBUTEROL SULFATE via nebulizer ALBUTEROL SULFATE 42483638310 Bairdford S (2.5 MG/3ML) 0.083% 12/05 MD Emil NEBU ALBUTEROL SULFATE via nebulizer 2015/ ALBUTEROL SULFATE 65009467084 Juan M (2.5 MG/3ML) 0.083% 12/05 05/15 Alajohana NEBU ULTRAM 50 MG TABS 1 tablet by TRAMADOL HCL 72928099760 Yolande A Kika mouth every 6 12/03 RN hours as needed ULTRAM 50 MG TABS 1 tablet by 2016/ TRAMADOL HCL 57620296520 Velvet D mouth every 6 12/03 08/29 Bales hours as needed AMRIX 15 MG PRN CYCLOBENZAPRINE HCL 97365418753 [facility] H [id number] Shahbaz DO AMRIX 15 MG PRN 2017/ CYCLOBENZAPRINE HCL 80964860185 Velvet D [id number] 04/08 Amairani MELATONIN 5 MG TABS Two tablets MELATONIN 23906256727 Yolande Aannd by mouth 12/03 RN daily as needed at bedtime VITAMIN D One tablet by ERGOCALCIFEROL 40808500265 Bairdford S (ERGOCALCIFEROL) mouth weekly 12/03 MD Emil 47568 UNIT CAPS VITAMIN D3 2000 UNIT 5000 IU daily CHOLECALCIFEROL 37022592124 Orlando S CAPS 12/05 MD Emil PREDNISONE 5 MG TABS PREDNISONE 55886653027 [facility] Shahbaz DO OMEPRAZOLE 10 MG PRN OMEPRAZOLE 41721836339 [facility] CPDR Shahbaz DO SYNTHROID 50 MCG One tablet by LEVOTHYROXINE 53427524641 Juan M TABS mouth daily. SODIUM Alam MAGNESIUM 250 MG One tablet by MAGNESIUM 03035054986 Juan M TABS mouth daily Alam as needed. MULTIPLE VITAMINS One tablet by MULTIPLE VITAMIN 74162895163 Juan M TABS mouth daily. Alam VITAMIN D3 2000 UNIT One tablet by CHOLECALCIFEROL 05148782384 Juan M TABS mouth daily. Alam CELEBREX 200 MG CAPS One tablet by CELECOXIB 08868071574 Velvet D mouth daily 04/08 Amairani LEUCOVORIN CALCIUM 1 weekly LEUCOVORIN CALCIUM 09401252066 Velvet D 25 MG TABS 04/08 Amairani FOLIC ACID XTRA TABS One tablet by FOLIC 30279579032 Velvet D mouth daily 04/08 [id number] Amairani OLINE AMITRIPTYLINE HCL 25 One tablet by AMITRIPTYLINE HCL 39876246489 Velvet D MG TABS mouth daily 04/08 Amairani ASPIRIN 81 MG TBEC One tablet by ASPIRIN 95979187136 Velvet D mouth daily 04/08 Amairani TRIAMTERENE-HCTZ One tablet by TRIAMTERENE-HCTZ 84082884613 Velvet D 37.5-25 MG CAPS mouth daily [...] albumin, serum by protein electrophoresis Lab Report: [id number], S B2MI 1.9 mg/L 0.6-2.4 beta-2 microglobulin [...] protein, total, serum by immunoelectrophoresis Lab Report: [place] Lambda Lt Chn Ser. Mon. FRKAPPALAMBR 0.67 0.26-1.65 free [place]arton/Lambda ratio FRLAMBDALTCH 1.884 mg/dL Units converted. See [...] Never smoker Tobacco use [facility] Replaced Document: Comprehensive Metabolic Profil [...] INTERVAL new path ms QT interval, electrocardiogram MD INTERVAL 174 ms MD interval, electrocardiogram EKGHRTRATE 89 BPM heart rate [...] Appointment 01:30 PM Marcelo BERRY, [address], [address], [place], [address], Pending order Urine Culture Pending order *UAC- [...] Procedures Code Procedure Name Date Entry Date CPT-36793 EKG (In office) 0184-1 *CBC with Differential CPT-10913 Urine Culture 97963-5 *UAC- Urinalysis, Complete w/ Micro 0786-1 *CMP [...] with Differential 0722-1 *IMFIXS Immunofixation, Serum 1685 CPT-95724 EKG (In office) F/U MMM MMM FUA [...]
--- OUTSIDE RECORDS SUMMARY | 2018-10-31 14:04 | XMS RPT_ITS ---
:1950 Author Organization OHIP Support Name Relationship Address Phone R Unavailable Unavailable Unavailable [facility] Unavailable [address] + [place] [address] R Unavailable Unavailable Unavailable [facility] Unavailable [address] + [place] [address] R Unavailable Unavailable Unavailable [facility] Unavailable [address] + [place] [address] R Unavailable Unavailable Unavailable [facility] Unavailable [address] + [place] [address] R Unavailable Unavailable Unavailable [facility] Unavailable [address] + [place] [address] R Unavailable Unavailable Unavailable [facility] Unavailable [address] + [place] [address] R Unavailable Unavailable Unavailable [facility] Unavailable [address] + [place] [address] R Unavailable Unavailable Unavailable [facility] Unavailable [address] + [place] [address] R Unavailable Unavailable Unavailable [facility] Unavailable [address] + [place] [address] R Unavailable Unavailable Unavailable [facility] Unavailable [address] + [place] [address] R Unavailable Unavailable Unavailable [facility] Unavailable [address] + [place] [address] R Unavailable Unavailable Unavailable [facility] Unavailable [address] + [place] [address] R Unavailable Unavailable Unavailable [facility] Unavailable [address] + [place] [address] R Unavailable Unavailable Unavailable [facility] Unavailable [address] + [place] [address] R Unavailable Unavailable Unavailable [facility] Unavailable [address] [place] [address] CIR + [place] [address] R Unavailable Unavailable Unavailable [facility] Unavailable [address] [place] [address] CIR + [place] [address] R Unavailable Unavailable Unavailable [facility] Unavailable [address] [place] [address] CIR + [place] [address] R Unavailable Unavailable Unavailable [facility] Unavailable [address] [place] [address] CIR + [place] [address] R Unavailable Unavailable Unavailable [facility] Unavailable [address] [place] [address] CIR + [place] [address] R Unavailable Unavailable Unavailable [facility] Unavailable [address] [place] [address] CIR + [place] [address] R Unavailable Unavailable Unavailable [facility] Unavailable [address] [place] [address] CIR + [place] [address] R Unavailable Unavailable Unavailable [facility] Unavailable [address] [place] [address] CIR + [place] [address] R Unavailable Unavailable Unavailable [facility] Unavailable [address] [place] [address] CIR + [place] [address] R Unavailable Unavailable Unavailable [facility] Unavailable [address] [place] [address] CIR + [place] [address] R Unavailable Unavailable Unavailable [facility] Unavailable [address] [place] [address] CIR + [place] [address] R Unavailable Unavailable Unavailable [facility] Unavailable [address] [place] [address] CIR + [place] [address] R Unavailable Unavailable Unavailable [facility] Unavailable [address] [place] [address] CIR + [place] [address] R Unavailable Unavailable Unavailable [facility] Unavailable [address] [place] [address] CIR + [place] [address] R Unavailable Unavailable Unavailable [facility] Unavailable [address] [place] [address] CIR + [place] [address] R Unavailable Unavailable Unavailable [facility], [facility] Unavailable [address] [place] [address] CIR + [place] [address] R Unavailable Unavailable Unavailable [facility] Unavailable [address] [place] [address] CIR + [place] [address] R Unavailable Unavailable Unavailable [facility] Unavailable [address] + [place] [address] R Unavailable Unavailable Unavailable [facility] Unavailable [address] + [place] [address] Care Team Providers Name Role Phone Kvng Nunez Attending Unavailable Oleghe, Efewongbe Primary Care Unavailable Vellanki, Marycarmen Attending Unavailable Vellanki, Marycramen Referring Unavailable Oleghe, Efewongbe Primary Care Unavailable Oleghe, Efewongbe Attending Unavailable Oleghe, Efewongbe Referring Unavailable Oleghe, Efewongbe Attending Unavailable Oleghe, Efewongbe Referring Unavailable Dontrell Torres Attending Unavailable [facility] Primary Care Unavailable Oleghe, Efewongbe Attending Unavailable Oleghe, Efewongbe Referring Unavailable Oleghe, Efewongbe Primary Care Unavailable Oleghe, Efewongbe Attending Unavailable Oleghe, Efewongbe Referring Unavailable Kvng Nunez Attending Unavailable Oleghe, Efewongbe Referring Unavailable Vellanki, Marycarmen Attending Unavailable Vellanki, Marycarmen Referring Unavailable Oleghe, Efewongbe Primary Care Unavailable Ragxuan, Neema N. Consulting Unavailable Oleghe, Efewongbe Attending Unavailable Oleghe, Efewongbe Referring Unavailable Oleghe, Efewongbe Primary Care Unavailable Jayme Brennan Attending Unavailable Oleghe, Efewongbe Referring Unavailable Oleghe, Efewongbe Primary Care Unavailable Dontrell Torres Attending Unavailable [facility] Primary Care Unavailable Dontrell Torres Consulting Unavailable Kvng Nunez Attending Unavailable Kvng Nunez Referring Unavailable Oleghe, Efewongbe Primary Care Unavailable Kvng Nunez Attending Unavailable Kvng Nunez Referring Unavailable Oleghe, Efewongbe Primary Care Unavailable Anjum Haider D.O. Attending Unavailable Kvng Nunez Referring Unavailable Vellanki, Marycarmen Attending Unavailable Vellanki, Marycarmen Referring Unavailable Oleghe, Efewongbe Primary Care Unavailable Sesar, Neema N. Consulting Unavailable Kvng Nunez Attending Unavailable Oleghe, Efewongbe Referring Unavailable Oleghe, Efewongbe Attending Unavailable Oleghe, Efewongbe Primary Care Unavailable Jayme Brennan Attending Unavailable Oleghe, Efewongbe Referring Unavailable Oleghe, Efewongbe Primary Care Unavailable Kvng Nunez Attending Unavailable Kvng Nunez Referring Unavailable Oleghe, Efewongbe Primary Care Unavailable Anjum Haider D.O. Attending Unavailable Kvng Nunez Referring Unavailable Oleghe, Efewongbe Attending Unavailable Oleghe, Efewongbe Referring Unavailable Oleghe, Efewongbe Primary Care Unavailable Simi Mansfield Attending Unavailable Oleghe, Efewongbe Referring Unavailable Cortez Monatna Attending Unavailable Raghunathan, Neema N. Attending Unavailable Oleghe, Efewongbe Primary Care Unavailable Raghunathan, Neema N. Referring Unavailable Vellanki, Marycarmen Attending Unavailable Vellanki, Marycarmen Referring Unavailable Oleghe, Efewongbe Primary Care Unavailable Raghunathan, Neema N. Attending Unavailable Oleghe, Efewongbe Primary Care Unavailable Raghunathan, Neema N. Referring Unavailable Oleghe, Efewongbe Attending Unavailable Oleghe, Efewongbe Referring Unavailable Oleghe, Efewongbe Primary Care Unavailable Raghunathan, Neema N. Attending Unavailable Oleghe, Efewongbe Primary Care Unavailable Raghunathan, Neema N. Referring Unavailable Oleghe, Efewongbe Attending Unavailable Oleghe, Efewongbe Referring Unavailable Oleghe, Efewongbe Attending Unavailable Oleghe, Efewongbe Referring Unavailable Oleghe, Efewongbe Primary Care Unavailable Vellanki, Marycarmen Consulting Unavailable Raghunathan, Neema N. Attending Unavailable Oleghe, Efewongbe Primary Care Unavailable Raghunathan, Neema N. 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0(ICD-10) Repository 08/26/2018 Unknown E27.9 - Disorder of Marycarmen Stevens Active [place] adrenal gland, Community unspecified / Hospital E27.9(ICD-10) Repository 09/04/2018 Unknown G47.33 - Obstructive Enrique, Kvng Active [place] sleep apnea (adult) Community (pediatric) / Hospital G47.33(ICD-10) Repository 07/14/2018 Unknown J45.909 - Unspecified Enrique, Kvng Active [place] asthma, uncomplicated Community / J45.909(ICD-10) Hospital Repository 07/14/2018 Unknown J45.20 - Mild Enrique, Kvng Active [place] intermittent asthma, Community uncomplicated / Hospital J45.20(ICD-10) Repository 07/14/2018 Unknown M06.9 - Rheumatoid Enrique, Kvng Active [place] arthritis, Community unspecified / Hospital M06.9(ICD-10) Repository 07/14/2018 Unknown E27.40 - Unspecified Enrique, Kvng Active [place] adrenocortical Community insufficiency / Hospital E27.40(ICD-10) Repository 06/25/2018 Unknown D47.2 - Monoclonal Oleghe, Active [place] gammopathy / [facility] D47.2(ICD-10) Hospital Repository 06/25/2018 Unknown E87.6 - Hypokalemia / Oleghe, Active [place] E87.6(ICD-10) [facility] Hospital Repository 06/25/2018 Unknown M21.40 - Flat foot Oleghe, Active [place] [pes planus] [facility] (acquired), Hospital unspecified foot / Repository M21.40(ICD-10) 03/30/2018 Unknown I10 - Essential Oleghe, Active [place] (primary) [facility] hypertension / Hospital I10(ICD-10) Repository 03/24/2018 Unknown 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 Community R06.09(ICD-10) Hospital Repository 05/07/2018 Unknown E03.9 - Marycarmen Stevens Active [place] Hypothyroidism, Community unspecified / Hospital E03.9(ICD-10) Repository 12/01/2017 Unknown J20.9 - Acute Mika, Jayme Active [place] bronchitis, Community unspecified / Hospital J20.9(ICD-10) Repository 11/05/2017 Unknown Z00.00 - Encounter Kurtis, Active [place] for general adult [facility] medical examination Hospital without abnormal Repository findings / Z00.00(ICD-10) 09/10/2017 Unknown M85.80 - Other Olerenay, Active [place] specified disorders [facility] of bone density and Hospital structure, Repository unspecified site / M85.80(ICD-10) PROCEDURES PROCEDURES No Procedure Records FoundRESULTS RESULTS INTERNAL MEDICINE Observed: 09/01/2018 Status: F Source: [place] OFFICE VISIT 4:23 PM [facility] REPOSITORY [facility] [address] [place] [address] [place] [address] OFFICE VISIT Date of Service: 09/01/18 MR#: [id number] Acct: [id number] Name: MITCHELL MENON Rep #: [id number] : 1950 Provider: Yoanna Hull MD Age/Sex: 67/F Location: [facility] Status: Signed Intake Vital Signs09/01/18 Body Mass Index (BMI) 41.4 09/01/18 Height 5 ft 5 in Intake Visit Reasons: 3 MO FU Chief Complaint: f/u visit Is patient in pain?: Yes (right shoulder) Pain scale (1-10): 4 Allergies phenytoin sodium [From Dilantin] Allergy (Mild, Verified 07/14/18 12:29) Rash phenytoin sodium extended [From Dilantin] Allergy (Mild, Verified 07/14/18 12:29) Rash ketorolac tromethamine [From Toradol] Allergy (Verified 07/14/18 12:29) Anaphylaxis morphine Adverse Reaction (Severe, Verified 07/14/18 12:29) Other Honey Dew Melon Adverse Reaction (Uncoded 07/14/18 12:29) Food Allergy Medications Ergocalciferol [Vitamin D] 50,000 unit PO ROSAS 11/02/15 [History Confirmed 07/14/18] Melatonin 10 mg PO QHS 11/02/15 [History Confirmed 07/14/18] Levothyroxine [Synthroid] 50 mcg PO DAILY 05/01/16 [History Confirmed 07/14/18] cholecalciferol (vitamin D3) 1,000 unit tablet 1,000 unit PO DAILY tab 07/23/17 [History Confirmed 07/14/18] multivitamin capsule 1 cap PO QAM 07/23/17 [History Confirmed 07/14/18] celecoxib 200 mg capsule 200 mg PO QDAY #90 cap 02/23/18 [Rx Confirmed 07/14/18] tumeric PO BID 02/23/18 [History Confirmed 07/14/18] potassium chloride ER 20 mEq tablet,extended release 20 meq PO QDAY #90 tab 06/01/18 [Rx Confirmed 07/14/18] budesonide 90 mcg/actuation breath activated powder inhaler 2 inh INHALATION BID #1 ea 07/14/18 [Rx Confirmed 07/14/18] folic acid 0.8 mg capsule 0.8 mg PO DAILY 07/14/18 [History Confirmed 07/14/18] methotrexate sodium 2.5 mg tablet 15 mg PO WE tab 07/14/18 [History Confirmed 08/07/18] montelukast 10 mg tablet 10 mg PO QPM #30 tab 07/14/18 [Rx Confirmed 07/14/18] ipratropium-albuterol 0.5 mg-3 mg(2.5 mg base)/3 mL nebulization soln 3 ml INHALATION Q6H PRN #90 ml 07/15/18 [Rx] amiloride 5 mg-hydrochlorothiazide 50 mg tablet 0.5 tab PO QDAY tab 08/07/18 [History] bupropion HCl XL 150 mg 24 hr tablet, extended release 150 mg PO QAM #90 tab 09/01/18 [Rx Confirmed 09/01/18] hydroxychloroquine 200 mg tablet 200 mg PO BID tab 09/01/18 [History Confirmed 09/01/18] tramadol 50 mg tablet 50 mg PO TID PRN tab 09/01/18 [History Confirmed 09/01/18] Post menopausal: Yes PFSH Medical History Hypopituitarism (Chronic) Arthritis (Chronic) Basal cell carcinoma (Acute) Cellulitis of right lower leg (Acute) Difficulty balancing (Acute) Fatigue (Acute) Hay fever (Acute) Hypokalemia (Acute) Limb weakness (Acute) Low magnesium level (Acute) Migraines (Acute) Pneumonia (Acute) SOB (shortness of breath) (Acute) Seizures (Acute) Vitamin D deficiency (Acute) Asthma (Chronic) Borderline hypertension (Chronic) Bronchitis (Chronic) CSA (central sleep apnea) (Chronic) Hypersomnia (Chronic) MGUS (monoclonal gammopathy of unknown significance) (Chronic) Osteoarthritis (Chronic) Osteopenia (Chronic) Rheumatoid arthritis (Chronic) Thyroid disorder (Chronic) Type 1 diabetes mellitus (Chronic) History of hysterectomy (Resolved) Surgical History History of carpal tunnel release (Acute) D AND C (Resolved) History of 2 sections (Resolved) History of carpal tunnel surgery (Resolved) History of cholecystectomy (Resolved) S/P bunionectomy (Resolved) S/P excision of Molina's neuroma (Resolved) bilateral knee surgery (Resolved) history of T AND A (Resolved) Family History Father Cancer father passed of lung CA at 55 Mother Osteoarthritis COPD (chronic obstructive pulmonary disease) Dementia Brother Myocardial infarction, Onset Age: 49 Aunt Multiple sclerosis Sister Colon cancer Aunt Celiac disease Social History Smoking Status: Never smoker alcohol intake: current alcohol intake frequency: a few times a month Alcohol type: wine substance use type: does not use what type of physical activity do you participate in: swimming, bicycling, walking frequency: 3-4 times per week HPI HPI Chief Complaint: f/u visit Details: MITCEHLL MENON, is a 67 F who presents to the office today for follow-up on depression. Recently started on Wellbutrin due to significant depression. She states that she has done well. She has been better able to handle stress and feels more relaxed. ROS Const Constitutional: No weight change, body ache, chills, fatigue, sleep problems, fever(s), change in appetite, snoring, weakness, frequent falls, headache(s) or excessive sweating Eyes Eyes: No change in vision, eye pain, light sensitivity or blurry vision ENT ENT: No headache(s), abnormal hearing, ear pain, tinnitus, nasal congestion, sore throat or neck pain Resp Respiratory: No snoring, cough, shortness of breath or wheezing Cardio Cardiology: No excessive sweating, chest pain at rest, chest pain with exertion, shortness of breath, dyspnea on exertion, palpitations, orthopnea or lightheadedness Gastro GI: No abdominal pain, change in bowel habits, constipation, diarrhea, vomiting, nausea/dyspepsia or cramping Genitourinary-Female: No burning urination, painful urination, urinary incontinence, urinary frequency, abnormal vaginal bleeding, pelvic pain or other Musc Musculoskeletal: No neck pain, abnormal walking, joint pain, back pain, limited range of motion, numbness or tingling Skin Skin: No redness, dry skin, itching, lesions, wounds or rash Neuro Neurology: No weakness, frequent falls, headache(s), abnormal hearing, abnormal walking, numbness, tingling, abnormal speech, dizziness or memory loss Psych Psychiatric: No change in appetite, No memory loss, No anxiety, No depression, No Thoughts of harming yourself/Others Endo Endocrine: No fatigue, excessive sweating, cold intolerance, increased thirst/drinking, heat intolerance, flushing or increased hunger Aller/Imm Allergy/Immunologic: No wheezing, itchy eyes, hives or seasonal allergy symptoms Manolo/Lymp Hematologic/Lymphatic: No easy bleeding, easy bruising or enlarged lymph nodes Exam Const General: cooperative, no acute distress Orientation: alert, awake, oriented x3 HENMT Head: atraumatic, normocephalic, normal to inspection Ears: hearing grossly normal bilaterally Resp Effort AND Inspection: normal respiratory effort, able to speak in complete sentences Auscultation: Bilateral: Clear to Auscultation Cardio Rate: regular rate Rhythm: regular rhythm Heart Sounds: S1 normal, S2 normal GI Palpation: soft, no hepatosplenomegaly Neuro General: alert, awake, oriented x3, CN's II-XI intact bilaterally, moves all extremities Extrem General: pedal edema Psych Appearance: grossly normal Mental Status: mental status grossly normal Mood: congruent mood Affect: normal affect Assessment AND Plan 1. Depression F32.9 Plan Symptoms said to have significantly improved on Wellbutrin. Continue current medication. Follow-up in 3 months. 2. Hypertension I10 Plan Blood pressure elevated. Patient reports compliance with her medications. She however has had significant right shoulder pain and has just had a steroid injection (intra-articular) today. Advised to monitor blood pressure closely. She was also advised to call the office if she notes persistently elevated blood pressure. This note was generated with [employer] dictation software. It may contain incorrect words, spelling, and punctuation that were not noted in checking the note before signing. Plan Detail Other Medications Refilled: Coding Level of Care Code Off vis,est,level 3 Diagnoses Depression F32.9 Hypertension I10 09/01/18 1620 <Electronically signed by Yoanna Hull MD> Date Yoanna Hull MD Cosigner Signature: Date (if applicable) CC: CBC W/DIFF, AUTOMATED Collected: 08/26/2018 Status: F Source: [place] 3:00 PM [facility] REPOSITORY TYPE CODE TESTS RESULT OUT OF RANGE REFERENCE UNITS LAB L100.1000 4.4-11.0 K/mm3 Normal WBC 9.6 LAB L100.1200 4.2-5.4 M/mm3 Low RBC 4.16 LAB L100.1300 12.0-15.0 g/dl Normal HGB 13.3 LAB L100.1400 37-47 % Normal HCT 40.4 LAB L100.1500 81-99 fL Normal MCV 97.1 LAB L100.1600 27.0-32.0 pg Normal MCH 32.0 LAB L100.1700 32-36 g/gl Normal MCHC 32.9 LAB L100.1810 11.6-14.6 % Normal RDW CV 13.5 LAB L100.1820 35.1-43.9 fl High RDW SD 46.4 LAB L100.1900 150-450 K/mm3 Normal PLT 376 LAB L100.2000 6.2-12.0 fl Normal MPV 10.4 LAB L100.2100 47-70 % Normal NEUT% 50.8 LAB L100.2200 19-41 % Normal LY% 37.8 LAB L100.2300 0-10 % Normal MONO% 6.9 LAB L100.2400 0-5 % Normal EO% 3.5 LAB L100.2500 0-1 % Normal BASO% 0.5 LAB L100.2550 0.0-0.9 % Normal IM GRAN % 0.500 Result Comment: IG% - Immature Granulocytes (promyelocytes, myelocytes and metamyelocytes) > 1% indicates that a LEFT SHIFT is Present. LAB L100.2620 2.0-7.7 X10 3/uL Normal Absolute Neut 4.9 LAB L100.2720 0.83-4.51 X10 3/ul Normal Absolute Lymph 3.62 Performed By: #### L100.0100 #### [facility] [address] [place], [place], [address] COMPREHENSIVE METABOLIC Collected: 08/26/2018 Status: F Source: [facility] 3:00 PM [facility] REPOSITORY TYPE CODE TESTS RESULT OUT OF RANGE REFERENCE UNITS LAB L501.0100 74-106 mg/dL High GLU 123 Result Comment: Fasting Glucose result from 100 to 125 mg/dL suggests IMPAIRED HOMEOSTASIS per A.D.A. criteria. Please note revised GLUCOSE reference range effective 2017. LAB L501.1000 7-18 mg/dL High BUN 24 LAB L501.1100 0.55-1.02 mg/dL Normal CREAT,SERUM 0.95 Result Comment: The validity of the calculated GFR AND GFRAA in patients over 70 years has not been determined. Clinical correlation is essential. LAB L501.1110 >60 mL/min Normal EST GFR 62 Result Comment: Non- GFR Calc LAB L501.1115 >60 mL/min Normal EST GFR - AA 76 Result Comment: GFR Calc LAB L501.1300 10-20 RATIO High BUN/CRE 25.2 LAB L501.1500 6.4-8.2 g/dL T Normal PROT 7.5 LAB L501.1800 3.2-5.0 g/dL Normal ALB 3.8 LAB L501.1950 2.2-4.2 g/dL Normal GLOB 3.7 LAB L501.2000 0.9-2.4 RATIO Normal A/G 1.0 LAB L501.2200 8.5-10.1 mg/dL CA Normal 8.8 LAB L501.4100 15-37 U/L Normal AST 32 LAB L501.4305 45-117 U/L High ALK P 119 LAB L501.4405 13-56 U/L Normal ALT 53 LAB L501.4600 0.20-1.00 mg/dL T Normal BILI 0.40 LAB L501.5300 136-145 mmol/L NA Normal 142 LAB L501.5600 3.5-5.1 mmol/L K Normal 3.5 LAB L501.5900 98-107 mmol/L CL Normal 105 LAB L501.6100 21.0-32.0 mmol/L Normal CO2 29.0 LAB L501.6200 5-15 Normal GAP 8 Performed By: #### L500.4050 #### [facility] [address] [place], [address] INTERNAL MEDICINE Observed: 08/07/2018 Status: F Source: [place] OFFICE VISIT 12:49 PM [facility] [address] [place] [address] [address] [place] [address] OFFICE VISIT Date of Service: 08/07/18 MR#: [id number] Acct: [id number] Name: MITCHELL MENON Rep #: [id number] : 1950 Provider: Yoanna Hull MD Age/Sex: 67/F Location: [facility] Status: Signed Intake Vital Signs08/07/18 Body Mass Index (BMI) 41.4 08/07/18 Height 5 ft 5 in Intake Visit Reasons: Discuss Liver test results Chief Complaint: discuss liver test results Is patient in pain?: No Allergies phenytoin sodium [From Dilantin] Allergy (Mild, Verified 07/14/18 12:29) Rash phenytoin sodium extended [From Dilantin] Allergy (Mild, Verified 07/14/18 12:29) Rash ketorolac tromethamine [From Toradol] Allergy (Verified 07/14/18 12:29) Anaphylaxis morphine Adverse Reaction (Severe, Verified 07/14/18 12:29) Other Honey Dew Melon Adverse Reaction (Uncoded 07/14/18 12:29) Food Allergy Medications Ergocalciferol [Vitamin D] 50,000 unit PO ROSAS 11/02/15 [History Confirmed 07/14/18] Melatonin 10 mg PO QHS 11/02/15 [History Confirmed 07/14/18] Levothyroxine [Synthroid] 50 mcg PO DAILY 05/01/16 [History Confirmed 07/14/18] cholecalciferol (vitamin D3) 1,000 unit tablet 1,000 unit PO DAILY tab 07/23/17 [History Confirmed 07/14/18] multivitamin capsule 1 cap PO QAM 07/23/17 [History Confirmed 07/14/18] celecoxib 200 mg capsule 200 mg PO QDAY #90 cap 02/23/18 [Rx Confirmed 07/14/18] tumeric PO BID 02/23/18 [History Confirmed 07/14/18] potassium chloride ER 20 mEq tablet,extended release 20 meq PO QDAY #90 tab 06/01/18 [Rx Confirmed 07/14/18] budesonide 90 mcg/actuation breath activated powder inhaler 2 inh INHALATION BID #1 ea 07/14/18 [Rx Confirmed 07/14/18] folic acid 0.8 mg capsule 0.8 mg PO DAILY 07/14/18 [History Confirmed 07/14/18] methotrexate sodium 2.5 mg tablet 15 mg PO WE tab 07/14/18 [History Confirmed 08/07/18] montelukast 10 mg tablet 10 mg PO QPM #30 tab 07/14/18 [Rx Confirmed 07/14/18] ipratropium-albuterol 0.5 mg-3 mg(2.5 mg base)/3 mL nebulization soln 3 ml INHALATION Q6H PRN #90 ml 07/15/18 [Rx] amiloride 5 mg-hydrochlorothiazide 50 mg tablet 0.5 tab PO QDAY tab 08/07/18 [History] bupropion HCl XL 150 mg 24 hr tablet, extended release 150 mg PO QAM #30 tab 08/07/18 [Rx Confirmed 08/07/18] Post menopausal: Yes PFSH Medical History Hypopituitarism (Chronic) Arthritis (Chronic) Basal cell carcinoma (Acute) Cellulitis of right lower leg (Acute) Difficulty balancing (Acute) Fatigue (Acute) Hay fever (Acute) Hypokalemia (Acute) Limb weakness (Acute) Low magnesium level (Acute) Migraines (Acute) Pneumonia (Acute) SOB (shortness of breath) (Acute) Seizures (Acute) Vitamin D deficiency (Acute) Asthma (Chronic) Borderline hypertension (Chronic) Bronchitis (Chronic) CSA (central sleep apnea) (Chronic) Hypersomnia (Chronic) MGUS (monoclonal gammopathy of unknown significance) (Chronic) Osteoarthritis (Chronic) Osteopenia (Chronic) Rheumatoid arthritis (Chronic) Thyroid disorder (Chronic) Type 1 diabetes mellitus (Chronic) History of hysterectomy (Resolved) Surgical History History of carpal tunnel release (Acute) D AND C (Resolved) History of 2 sections (Resolved) History of carpal tunnel surgery (Resolved) History of cholecystectomy (Resolved) S/P bunionectomy (Resolved) S/P excision of Molina's neuroma (Resolved) bilateral knee surgery (Resolved) history of T AND A (Resolved) Family History Father Cancer father passed of lung CA at 55 Mother Osteoarthritis COPD (chronic obstructive pulmonary disease) Dementia Brother Myocardial infarction, Onset Age: 49 Aunt Multiple sclerosis Sister Colon cancer Aunt Celiac disease Social History Smoking Status: Never smoker alcohol intake: current alcohol intake frequency: a few times a month Alcohol type: wine substance use type: does not use what type of physical activity do you participate in: swimming, bicycling, walking frequency: 3-4 times per week HPI HPI Chief Complaint: discuss liver test results Details: MITCHELL MENON, is a 67yo F who presents to the office today to discuss some concerns. He had some blood work done in June which showed elevated AST and ALT. She had adjustments to her methotrexate and repeat liver function was within normal. It is of note that she also has a history of fatty liver disease. She however appears significantly teary in office today and states that she has had to deal with a lot of stress and depression. Had been on Wellbutrin for about 7 years but this was discontinued by her prior physician because it was thought she did not need it anymore. She has found significant difficulty coping with daily activities. ROS Const Constitutional: No weight change, body ache, chills, fatigue, sleep problems, fever(s), change in appetite, snoring, weakness, frequent falls, headache(s) or excessive sweating Eyes Eyes: No change in vision, eye pain, light sensitivity or blurry vision ENT ENT: No headache(s), abnormal hearing, ear pain, tinnitus, nasal congestion, sore throat or neck pain Resp Respiratory: No snoring, cough, shortness of breath or wheezing Cardio Cardiology: No excessive sweating, chest pain at rest, chest pain with exertion, shortness of breath, dyspnea on exertion, palpitations, orthopnea or lightheadedness Gastro GI: No abdominal pain, change in bowel habits, constipation, vomiting or cramping Genitourinary-Female: No burning urination, painful urination, urinary incontinence, urinary frequency, abnormal vaginal bleeding, pelvic pain or other Musc Musculoskeletal: Positive for other (pain in Rt flank); no neck pain, abnormal walking, back pain, limited range of motion, numbness or tingling Skin Skin: No redness, dry skin, itching, lesions, wounds or rash Neuro Neurology: No weakness, frequent falls, headache(s), abnormal hearing, abnormal walking, numbness, tingling, abnormal speech, dizziness or memory loss Psych Psychiatric: No change in appetite, No memory loss, No anxiety, No depression, No Thoughts of harming yourself/Others Endo Endocrine: No fatigue, excessive sweating, cold intolerance, increased thirst/drinking, heat intolerance, flushing or increased hunger Aller/Imm Allergy/Immunologic: No wheezing, itchy eyes, hives or seasonal allergy symptoms Manolo/Lymp Hematologic/Lymphatic: No easy bleeding, easy bruising or enlarged lymph nodes Exam Const General: cooperative, no acute distress Orientation: alert, awake, oriented x3 HENMT Head: atraumatic, normocephalic, normal to inspection Ears: hearing grossly normal bilaterally Resp Effort AND Inspection: normal respiratory effort, able to speak in complete sentences Auscultation: Bilateral: Clear to Auscultation Cardio Rate: regular rate Rhythm: regular rhythm Heart Sounds: S1 normal, S2 normal GI Palpation: soft, no hepatosplenomegaly Neuro General: alert, awake, oriented x3, CN's II-XI intact bilaterally, moves all extremities Extrem General: pedal edema Psych Appearance: grossly normal Mental Status: mental status grossly normal Mood: congruent mood Affect: normal affect Assessment AND Plan 1. Abnormal liver enzymes R74.8 Plan CMP done in June with elevated AST and ALT however, repeat done 2 days ago with AST / ALT back to normal. Multiple possibilities including medication, history of fatty liver disease and OTC meds. She states that she takes Nespelem's wort occasionally. She recently had a methotrexate adjusted. Advised against herbal supplements. Also advised to lose at least 10% of current body weight. Will monitor closely. 2. Depression F32.9 Plan Chronic. Not currently on any medication. Had been on Wellbutrin in the past and did well with this. Prescription sent. Follow-up in 1 month. 3. Back pain M54.9 Plan Appears muscular. Reproducible. Stretching exercises discussed. Topical NSAIDs. Follow-up at next visit. This note was generated with [employer] dictation software. It may contain incorrect words, spelling, and punctuation that were not noted in checking the note before signing. Plan Detail Other Medications New: Coding Level of Care Code Off vis,est,level 4 Diagnoses Abnormal liver enzymes R74.8 Depression F32.9 Back pain M54.9 08/07/18 1242 <Electronically signed by Yoanna Hull MD> Date Yoanna Hull MD Cosigner Signature: Date (if applicable) CC: HEMOGLOBIN A1C Collected: 08/05/2018 Status: F Source: [place] 8:05 AM [facility] REPOSITORY TYPE CODE TESTS RESULT OUT OF RANGE REFERENCE UNITS LAB L501.9985 4.2-6.3 % Normal HGB A1C 6.2 Performed By: #### L501.9985 #### [facility] [address] [place], [place], [address] CORTISOL SERUM Collected: 08/05/2018 Status: F Source: [place] 8:05 AM [facility] REPOSITORY TYPE CODE TESTS RESULT OUT OF RANGE REFERENCE UNITS LAB L509.6000 3.09-22.40 ug/dL Normal CORTISOL 20.00 Result Comment: Adult (AM) 4.30 - 22.40 ug/dL Adult (PM) 3.09 - 16.66 ug/dL Performed By: #### L509.6000 #### [facility] [address] [place], [place], [address] COMPREHENSIVE METABOLIC Collected: 08/05/2018 Status: F Source: [facility] 8:05 AM [facility] REPOSITORY Order Comment: DR. HULL ORDERED BMP, A1C, LIPID ORDERED CMP,A1C, LIPID, TSH, T4F, T3F, CORTISOL, PROLACTIN TYPE CODE TESTS RESULT OUT OF RANGE REFERENCE UNITS LAB L501.0100 74-106 mg/dL High GLU 113 Result Comment: Fasting Glucose result from 100 to 125 mg/dL suggests IMPAIRED HOMEOSTASIS per A.D.A. criteria. Please note revised GLUCOSE reference range effective 2017. LAB L501.1000 7-18 mg/dL High BUN 26 LAB L501.1100 0.55-1.02 mg/dL Normal CREAT,SERUM 0.75 Result Comment: The validity of the calculated GFR AND GFRAA in patients over 70 years has not been determined. Clinical correlation is essential. LAB L501.1110 >60 mL/min Normal EST GFR 83 Result Comment: Non- GFR Calc LAB L501.1115 >60 mL/min Normal EST GFR - AA 100 Result Comment: GFR Calc LAB L501.1300 10-20 RATIO High BUN/CRE 34.8 LAB L501.1500 6.4-8.2 g/dL T Normal PROT 7.2 LAB L501.1800 3.2-5.0 g/dL Normal ALB 3.7 LAB L501.1950 2.2-4.2 g/dL Normal GLOB 3.5 LAB L501.2000 0.9-2.4 RATIO Normal A/G 1.1 LAB L501.2200 8.5-10.1 mg/dL CA Normal 8.6 LAB L501.4100 15-37 U/L Normal AST 33 LAB L501.4305 45-117 U/L Normal ALK P 111 LAB L501.4405 13-56 U/L Normal ALT 48 LAB L501.4600 0.20-1.00 mg/dL T Normal BILI 0.50 LAB L501.5300 136-145 mmol/L NA Normal 143 LAB L501.5600 3.5-5.1 mmol/L K Normal 3.6 LAB L501.5900 98-107 mmol/L High CL 108 LAB L501.6100 21.0-32.0 mmol/L Normal CO2 27.0 LAB L501.6200 5-15 Normal GAP 8 Performed By: #### L500.4050, L500.4100, L501.99627, L501.9520, L506.0400, L3100.5420 #### [facility] [address] [place], [address] LIPID PROFILE Collected: 08/05/2018 Status: F Source: [place] 8:05 AM [facility] REPOSIT[facility] Order Comment: DR. HULL ORDERED BMP, A1C, LIPID ORDERED CMP,A1C, LIPID, TSH, T4F, T3F, CORTISOL, PROLACTIN TYPE CODE TESTS RESULT OUT OF RANGE REFERENCE UNITS LAB L501.4900 200 mg/dL Normal CHOL 157 Result Comment: <200 mg/dL Desirable 200-240 mg/dL Borderline >240 mg/dL High Risk LAB L501.5000 mg/dL Normal TRIG 153 Result Comment: The drugs N-Acetylcysteine and Metamizole may falsely depress this assay. Serum Triglycerides Reference Interval Normal <150 mg/dL Borderline high 150 - 199 mg/dL High 200 - 499 mg/dL Very High > or = 500 mg/dL LAB L501.6400 mg/dL Normal HDL 44 Result Comment: The drugs N-Acetylcysteine and Metamizole may falsely depress this assay. Reference Range HDL <40 mg/dL Low HDL Cholesterol HDL >or= 60 mg/dL High HDL Cholesterol LAB L501.6500 0-130 mg/dL Normal LDL 82 LAB L501.6600 5-40 mg/dL Normal VLDL 31 Performed By: #### L500.4050, L500.4100, L501.09091, L501.9520, L506.0400, L3100.5420 #### [facility] [address] [place], [address] FREE T3 Collected: 08/05/2018 Status: F Source: [place] 8:05 AM [facility] REPOSITORY Order Comment: DR. HULL ORDERED BMP, A1C, LIPID ORDERED CMP,A1C, LIPID, TSH, T4F, T3F, CORTISOL, PROLACTIN TYPE CODE TESTS RESULT OUT OF RANGE REFERENCE UNITS LAB L501.42666 2.18-3.98 pg/mL Normal FREE T3 3.0 Performed By: #### L500.4050, L500.4100, L501.59052, L501.9520, L506.0400, L3100.5420 #### [facility] [address] [place], [address] THYROID STIM HORMONE Collected: 08/05/2018 Status: F Source: [place] ([place]) 8:05 AM [facility] REPOSITORY Order Comment: DR. HULL ORDERED BMP, A1C, LIPID ORDERED CMP,A1C, LIPID, TSH, T4F, T3F, CORTISOL, PROLACTIN TYPE CODE TESTS RESULT OUT OF RANGE REFERENCE UNITS LAB L501.9520 0.358-3.74 uIU/mL Normal TSH 1.86 Performed By: #### L500.4050, L500.4100, L501.19134, L501.9520, L506.0400, L3100.5420 #### [facility] [address] [place], [address] T4 FREE DIRECT Collected: 08/05/2018 Status: F Source: [place] 8:05 AM [facility] REPOSIT[facility] Order Comment: DR. HULL ORDERED BMP, A1C, LIPID ORDERED CMP,A1C, LIPID, TSH, T4F, T3F, CORTISOL, PROLACTIN TYPE CODE TESTS RESULT OUT OF RANGE REFERENCE UNITS LAB L506.0400 0.76-1.46 ng/dL Normal T4 FREE 1.06 DIRECT Performed By: #### L500.4050, L500.4100, L501.24892, L501.9520, L506.0400, L3100.5420 #### [facility] [address] [place], [place], [address] PROLACTIN Collected: 08/05/2018 Status: F Source: [place] 8:05 AM [facility] REPOSIT[facility] Order Comment: DR. HULL ORDERED BMP, A1C, LIPID ORDERED CMP,A1C, LIPID, TSH, T4F, T3F, CORTISOL, PROLACTIN TYPE CODE TESTS RESULT OUT OF RANGE REFERENCE UNITS LAB L3100.5420 ng/mL Normal PROLACTIN 8.8 Result Comment: NORMAL REFERENCE RANGES FEMALE NON- 2.2 - 30.3 ng/mL 8.1 - 347.6 ng/mL POST-MENOPAUSAL 0.7 - 31.5 ng/mL MALE 2.5 - 17.4 ng/mL NEW TEST METHOD AND REFERENCE RANGES DECEMBER 30, 2011 Performed By: #### L500.4050, L500.4100, L501.73788, L501.9520, L506.0400, L3100.5420 #### [facility] [address] [place], [place], [address] PULMONARY VISIT REPORT Observed: 07/14/2018 Status: F Source: [place] 2:42 PM [facility] REPOSITORY [facility] [address] [place] [address] OFFICE VISIT Date of Service: 07/14/18 MR#: [id number] Acct: [id number] Name: MITCHELL MENON Rep #: [id number] : 1950 Provider: Kvng Nunez MD Age/Sex: 67/F Location: [facility] [place].[facility] Status: Signed with Addenda ADDENDUM by Kvng Nunez MD on 07/14/18 at 1442 Addendum entered and electronically signed by Kvng Nunez MD 07/14/18 14:42: Patient reports that her nebulizer recently broke. Patient was using her old nebulizer from her mother. Patient does use aerosolized medications on a routine basis with subjective improvement. Patient will be provided with a new nebulizer. Assessment and plan have not changed otherwise. Assessment AND Plan Problems 1. MARCELLA (obstructive sleep apnea) G47.33 2. Mild intermittent asthma without complication J45.20 3. Rheumatoid arthritis M06.9 4. Adrenal insufficiency E27.40 Plan - Kvng Nunez MD Patient is currently off of all steroid therapy. Patient is reporting a nocturnal cough and this may be secondary to uncontrolled asthma. Stressed to the patient that systemic steroids will suppress symptoms. Stressed to the patient the Pulmicort should be used on a daily basis. Refills were given for prescriptions. Patient's machine is no longer feeling but it is been over 5-1/2 years, so will repeat the titration study and provide patient with a new machine. Titration polysomnogram. Initiate Pulmicort and Singulair daily. Flonase will be bought [id number]. Orders Orders: Medications New: ipratropium-albuterol 0.5 mg-3 mg(2.5 mg base3 mL Inhalation Q6H PRN 90 mL 5RF shortness )/3 mL of breath or wheezing Asthma J45.909 Changed: From: budesonide 90 mcg/actuation (Pulmicort Fle2 inhalations Inhalation BID PRN J45.909 xhaler) 12 1442 <Electronically signed by Kvng Nuenz MD> Date Kvng Nunez MD cc: Yoanna Hull MD * Signed Assessment AND Plan Problems 1. MARCELLA (obstructive sleep apnea) G47.33 2. Mild intermittent asthma without complication J45.20 3. Rheumatoid arthritis M06.9 4. Adrenal insufficiency E27.40 Plan Patient is currently off of all steroid therapy. Patient is reporting a nocturnal cough and this may be secondary to uncontrolled asthma. Stressed to the patient that systemic steroids will suppress symptoms. Stressed to the patient the Pulmicort should be used on a daily basis. Refills were given for prescriptions. Patient's machine is no longer feeling but it is been over 5-1/2 years, so will repeat the titration study and provide patient with a new machine. Titration polysomnogram. Initiate Pulmicort and Singulair daily. Flonase will be bought [id number]. Orders Orders: Medications New: ipratropium-albuterol 0.5 mg-3 mg(2.5 mg base3 mL Inhalation Q6H PRN 90 mL 5RF shortness )/3 mL of breath or wheezing Changed: From: budesonide 90 mcg/actuation (Pulmicort Fle2 inhalations Inhalation BID PRN J45.909 xhaler) HPI 6 M FU: Chief Complaint: Body soreness Details: Patient is a 67-year-old female, currently under the care of Dr. Hull, who presents for evaluation secondary to body soreness and review of test results. Since last visit, patient reports she has been taken off of steroid therapy. Patient feels that this is led to significant body aches and sinus congestion. Patient overall feels her dyspnea on exertion is grossly unchanged compared to previous. Patient states that she has had much more sinus congestion compared to previous. Patient states she has had CT scans in the past reporting a sinus cyst and believes that this may be leading to obstruction of the steroids are off. Patient states that she has not been compliant with her Singulair, Pulmicort and Flonase on a regular basis. Patient states she was on prednisone I did not need them. Patient has noted that she is having increased cough, especially at night. Patient reports that she has been using her CPAP at 9 cm of water despite the fact that it was recently evaluated and thought that the motor was dying. Patient states that she wakes up feeling tired and has been known to take naps during the day. Testing personally reviewed with the patient Echocardiogram (02/05/2018): EF 65% with stage I diastolic dysfunction and a right ventricular systolic pressure of 22 mmHg. No significant valvular dysfunction noted. No significant change compared to 12/21/2015 HPI Comments Details: Intake Vital Signs07/14/18 Height 5 ft 5 in 07/14/18 Weight: 112.945 kg Intake Visit Reasons: 6 M FU Allergies phenytoin sodium [From Dilantin] Allergy (Mild, Verified 07/14/18 12:29) Rash phenytoin sodium extended [From Dilantin] Allergy (Mild, Verified 07/14/18 12:29) Rash ketorolac tromethamine [From Toradol] Allergy (Verified 07/14/18 12:29) Anaphylaxis morphine Adverse Reaction (Severe, Verified 07/14/18 12:29) Other Honey Dew Melon Adverse Reaction (Uncoded 07/14/18 12:29) Food Allergy Medications Ergocalciferol [Vitamin D] 50,000 unit PO ROSAS 11/02/15 [History Confirmed 07/14/18] Melatonin 10 mg PO QHS 11/02/15 [History Confirmed 07/14/18] Levothyroxine [Synthroid] 50 mcg PO DAILY 05/01/16 [History Confirmed 07/14/18] cholecalciferol (vitamin D3) 1,000 unit tablet 1,000 unit PO DAILY tab 07/23/17 [History Confirmed 07/14/18] multivitamin capsule 1 cap PO QAM 07/23/17 [History Confirmed 07/14/18] albuterol sulfate HFA 90 mcg/actuation aerosol inhaler 2 puff INHALATION Q4H PRN 01/26/18 [History Confirmed 07/14/18] fexofenadine 180 mg tablet 180 mg PO Q24H PRN 01/26/18 [History Confirmed 07/14/18] amiloride 5 mg-hydrochlorothiazide 50 mg tablet 0.5 tab PO QDAY #30 tab 02/23/18 [Rx Confirmed 07/14/18] celecoxib 200 mg capsule 200 mg PO QDAY #90 cap 02/23/18 [Rx Confirmed 07/14/18] dulaglutide 1.5 mg/0.5 mL subcutaneous pen injector 1.5 mg SC QWEEK 02/23/18 [History Confirmed 07/14/18] tumeric PO BID 02/23/18 [History Confirmed 07/14/18] acetaminophen 500 mg tablet 500 mg PO Q4H PRN 03/30/18 [History Confirmed 07/14/18] ibuprofen 200 mg tablet 200 mg PO TID-QID PRN 03/30/18 [History Confirmed 07/14/18] potassium chloride ER 20 mEq tablet,extended release 20 meq PO QDAY #90 tab 06/01/18 [Rx Confirmed 07/14/18] budesonide 90 mcg/actuation breath activated powder inhaler 2 inh INHALATION BID #1 ea 07/14/18 [Rx Confirmed 07/14/18] folic acid 0.8 mg capsule 0.8 mg PO DAILY 07/14/18 [History Confirmed 07/14/18] ipratropium-albuterol 0.5 mg-3 mg(2.5 mg base)/3 mL nebulization soln 3 ml INHALATION Q6H PRN #90 ml 07/14/18 [Rx Confirmed 07/14/18] methotrexate sodium 2.5 mg tablet 15 mg PO WE tab 07/14/18 [History Confirmed 07/14/18] montelukast 10 mg tablet 10 mg PO QPM #30 tab 07/14/18 [Rx Confirmed 07/14/18] PFSH Medical History Hypopituitarism (Chronic) Arthritis (Chronic) Basal cell carcinoma (Acute) Cellulitis of right lower leg (Acute) Difficulty balancing (Acute) Fatigue (Acute) Hay fever (Acute) Hypokalemia (Acute) Limb weakness (Acute) Low magnesium level (Acute) Migraines (Acute) Pneumonia (Acute) SOB (shortness of breath) (Acute) Seizures (Acute) Vitamin D deficiency (Acute) Asthma (Chronic) Borderline hypertension (Chronic) Bronchitis (Chronic) CSA (central sleep apnea) (Chronic) Hypersomnia (Chronic) MGUS (monoclonal gammopathy of unknown significance) (Chronic) Osteoarthritis (Chronic) Osteopenia (Chronic) Rheumatoid arthritis (Chronic) Thyroid disorder (Chronic) Type 1 diabetes mellitus (Chronic) History of hysterectomy (Resolved) Surgical History History of carpal tunnel release (Acute) D AND C (Resolved) History of 2 sections (Resolved) History of carpal tunnel surgery (Resolved) History of cholecystectomy (Resolved) S/P bunionectomy (Resolved) S/P excision of Molina's neuroma (Resolved) bilateral knee surgery (Resolved) history of T AND A (Resolved) Family History Father Cancer father passed of lung CA at 55 Mother Osteoarthritis COPD (chronic obstructive pulmonary disease) Dementia Brother Myocardial infarction, Onset Age: 49 Aunt Multiple sclerosis Sister Colon cancer Aunt Celiac disease Social History Smoking Status: Never smoker alcohol intake: current alcohol intake frequency: a few times a month Alcohol type: wine substance use type: does not use what type of physical activity do you participate in: swimming, bicycling, walking frequency: 3-4 times per week Review of Systems Const CONSTITUTIONAL: Positive fatigue; negative anorexia, body ache, chills, daytime sleepiness, fever(s), night sweats, oral thrush, stops breathing during sleep, weight loss, sleeping in chair, weight loss, weight gain, frequent colds, seasonal allergies, other, headache(s) or orthopnea EETM Ear Nose Throat Mouth: Positive hearing normal; negative hoarseness, dry mouth in morning, change in vision, itchy eyes, eye pain, swallowing Difficulty, ear pain, headache(s), mouth pain, nasal congestion, nasal discharge, sinus pain, sinus pressure, sore throat, other, hard of hearing, nose bleed or post nasal drip Cardio Cardiovascular: Positive edema Location: lower extremity; negative chest pain, chest pain at rest, chest pain with activity, irregular heart rhythm, shortness of breath when lying down, palpitations, other or murmur Resp Respiratory: Positive as per HPI, shortness of breath shortness of breath: Positive with activity, wheezing, cough cough: Positive productive color: Positive other, chest tightness and inhalers; negative pain with cough, chest congestion, pain on inspiration, increase use of rescue inhalers, snoring, apnea or other Gastro Gastrointestional: Negative bloody stools, change in appetite, difficulty swallowing, reflux, hematemesis, melena stool, loose stool, constipation or other Genitourinary: Negative blood in urine, nocturia, pain with urination or other Musc Musculoskeletal: Negative body pain, back pain, neck pain or other Skin/Breast Skin/Breast: Negative dry skin, itching, unusual bruising, breast lump, other or rash Neuro Neurological: Negative restless legs, confusion, weakness or other Psych Psychocological: Negative abnormal sleep pattern, anxiety, thoughts of hurting self/others, hopelessness or other Lymph Lymphatic: Negative easy bleeding, easy bruising, other or swollen lymph nodes Exam Const Constitutional: Positive conversant, cooperative, in no acute respiratory distress, healthy appearing, well developed, well nourished, good hygiene and obese; negative wearing supplemental oxygen or ill appearing Head Head: Positive normocephalic and atraumatic; negative cyanosis of lips/distal nose, frontal sinus tenderness or maxillary sinus tenderness Eyes Eye: Positive clear conjunctiva; negative nystagmus, scleral abnormality or cataract present Ears Ear: Positive hearing normal and external ears normal; negative hard of hearing Nose Nose: Positive external nose normal, septum normal and no nasal discharge; negative epistaxis or nasal polyp Mouth Mouth: Positive oral mucosae normal, no lesions, poor dentition and crowded posterior oropharynx; negative post nasal drip, malodorous breath or oral thrush present Mallampati Score: IV: Mallampati Score Neck Neck: Positive normal visual inspection, full ROM, trachea midline, thick neck and female neck greater than 37 cm (15 in); negative lymphadenopathy or JVD Chest Wall Chest: Positive normal inspection of the chest and symmetric chest movement; negative crepitus or tenderness Resp lung sounds: Positive clear to auscultation, diminished, normal expiratory time and normal respiratory effort; negative wheezes, rhonchi, rales, use of accessory muscles, wheeze present on forced exhalation or dullness to percussion Cardio Cardiac: Positive regular rate, regular rhythm, S1 normal and S2 normal; negative murmur, rub or gallop GI GI: Positive normal to inspection, normal bowel sounds and obese; negative distended, ascites or epigastric tenderness Genitourinary: Positive deferred Musc Musculoskeletal: Positive steady gait; negative using an assistive device for ambulation, kyphosis or scoliosis Skin Pulmonary Skin Exam: Positive intact; negative rash, lesion, ulcers, erythema or dermal atrophy Pulses Pulse: Yes radial pulses present Extremities Extremities: Yes capillary refill normal, No clubbing, No cyanosis, Yes edema (1+) Location: lower extremity Neuro Neurologic: Yes conversant, Yes no focal neuro deficits, Yes normal concentration, Yes understands questions, Yes cooperative, Yes normal cognition, Yes normal coordination Lymph Lymphatic: No lymphadenopathy Psych Appearance: Positive grossly normal Mental Status: Positive mental status grossly normal Mood: Positive congruent mood Affect: Positive normal affect Coding Level of Care Code Off vis,est,level 4 Diagnoses MARCELLA (obstructive sleep apnea) G47.33 Mild intermittent asthma without complication J45.20 Asthma severity: mild Asthma complication type: uncomplicated Asthma persistence: intermittent Rheumatoid arthritis M06.9 Adrenal insufficiency E27.40 07/14/18 1320 <Electronically signed by Kvng Nunez MD> Date Kvng Nunez MD Cosigner Signature: Date (if applicable) CC: Yoanna Hull MD CBC W/DIFF, AUTOMATED Collected: 06/25/2018 Status: F Source: [place] 11:11 AM [facility] REPOSITORY Order Comment: BMP CHANGED TO CMP DR STEVENS ORDERED: CMP, CBCD ORDERED: BMP TYPE CODE TESTS RESULT OUT OF RANGE REFERENCE UNITS LAB L100.1000 4.4-11.0 K/mm3 Normal WBC 7.8 LAB L100.1200 4.2-5.4 M/mm3 Normal RBC 4.48 LAB L100.1300 12.0-15.0 g/dl Normal HGB 13.9 LAB L100.1400 37-47 % Normal HCT 42.9 LAB L100.1500 81-99 fL Normal MCV 95.8 LAB L100.1600 27.0-32.0 pg Normal MCH 31.0 LAB L100.1700 32-36 g/gl Normal MCHC 32.4 LAB L100.1810 11.6-14.6 % Normal RDW CV 13.4 LAB L100.1820 35.1-43.9 fl High RDW SD 45.6 LAB L100.1900 150-450 K/mm3 Normal PLT 399 LAB L100.2000 6.2-12.0 fl Normal MPV 9.9 LAB L100.2100 47-70 % Low NEUT% 46.5 LAB L100.2200 19-41 % High LY% 46.4 LAB L100.2300 0-10 % Normal MONO% 3.3 LAB L100.2400 0-5 % Normal EO% 3.1 LAB L100.2500 0-1 % Normal BASO% 0.4 LAB L100.2550 0.0-0.9 % Normal IM GRAN % 0.300 Result Comment: IG% - Immature Granulocytes (promyelocytes, myelocytes and metamyelocytes) > 1% indicates that a LEFT SHIFT is Present. LAB L100.2620 2.0-7.7 X10 3/uL Normal Absolute Neut 3.7 LAB L100.2720 0.83-4.51 X10 3/ul Normal Absolute Lymph 3.64 Performed By: #### L100.0100 #### [facility] [address] [place], [place], [address] BASIC METABOLIC Collected: 06/25/2018 Status: F Source: [place] PROFILE (BMP) 8:37 AM [facility] REPOSITORY TYPE CODE TESTS RESULT OUT OF RANGE REFERENCE UNITS LAB L501.0100 74-106 mg/dL Normal GLU 101 Result Comment: Fasting Glucose result from 100 to 125 mg/dL suggests IMPAIRED HOMEOSTASIS per A.D.A. criteria. Please note revised GLUCOSE reference range effective 2017. LAB L501.1000 7-18 mg/dL High BUN 26 LAB L501.1100 0.55-1.02 mg/dL Normal CREAT,SERUM 0.84 Result Comment: The validity of the calculated GFR AND GFRAA in patients over 70 years has not been determined. Clinical correlation is essential. LAB L501.1110 >60 mL/min Normal EST GFR 72 Result Comment: Non- GFR Calc LAB L501.1115 >60 mL/min Normal EST GFR - AA 88 Result Comment: GFR Calc LAB L501.1300 10-20 RATIO High BUN/CRE 31.0 LAB L501.2200 8.5-10.1 mg/dL CA Normal 8.8 LAB L501.5300 136-145 mmol/L NA Normal 140 LAB L501.5600 3.5-5.1 mmol/L K Normal 3.5 LAB L501.5900 98-107 mmol/L CL Normal 102 LAB L501.6100 21.0-32.0 mmol/L Normal CO2 30.0 LAB L501.6200 5-15 Normal GAP 8 Performed By: #### L500.2500, L500.4050 #### [facility] [address] [place], [address] COMPREHENSIVE METABOLIC Collected: 06/25/2018 Status: F Source: [place] PROFIL 8:37 AM [facility] REPOSIT[facility] Order Comment: BMP CHANGED TO CMP DR STEVENS ORDERED: CMP, CBCD ORDERED: BMP TYPE CODE TESTS RESULT OUT OF RANGE REFERENCE UNITS LAB L501.0100 74-106 mg/dL Normal GLU 101 Result Comment: Fasting Glucose result from 100 to 125 mg/dL suggests IMPAIRED HOMEOSTASIS per A.D.A. criteria. Please note revised GLUCOSE reference range effective 2017. LAB L501.1000 7-18 mg/dL High BUN 26 LAB L501.1100 0.55-1.02 mg/dL Normal CREAT,SERUM 0.84 Result Comment: The validity of the calculated GFR AND GFRAA in patients over 70 years has not been determined. Clinical correlation is essential. LAB L501.1110 >60 mL/min Normal EST GFR 72 Result Comment: Non- GFR Calc LAB L501.1115 >60 mL/min Normal EST GFR - AA 88 Result Comment: GFR Calc LAB L501.1300 10-20 RATIO High BUN/CRE 31.0 LAB L501.2200 8.5-10.1 mg/dL CA Normal 8.8 LAB L501.5300 136-145 mmol/L NA Normal 140 LAB L501.5600 3.5-5.1 mmol/L K Normal 3.5 LAB L501.5900 98-107 mmol/L CL Normal 102 LAB L501.6100 21.0-32.0 mmol/L Normal CO2 30.0 LAB L501.6200 5-15 Normal GAP 8 LAB L501.1500 6.4-8.2 g/dL T Normal PROT 7.8 LAB L501.1800 3.2-5.0 g/dL Normal ALB 4.0 LAB L501.1950 2.2-4.2 g/dL Normal GLOB 3.8 LAB L501.2000 0.9-2.4 RATIO Normal A/G 1.1 LAB L501.4100 15-37 U/L High AST 58 LAB L501.4305 45-117 U/L Normal ALK P 115 LAB L501.4405 13-56 U/L High ALT 85 LAB L501.4600 0.20-1.00 mg/dL T Normal BILI 0.50 Performed By: #### L500.2500, L500.4050 #### [facility] [address] [place], [address] INTERNAL MEDICINE Observed: 06/02/2018 Status: F Source: [place] OFFICE VISIT 8:12 AM [facility] [place] [address] [place] [address] OFFICE VISIT Date of Service: 06/01/18 MR#: [id number] Acct: [id number] Name: MITCHELL MENON Rep #: [id number] : 1950 Provider: Yoanna Hull MD Age/Sex: 67/F Location: [facility] Status: Signed Intake Vital Signs06/01/18 Height 5 ft 5 in Intake Visit Reasons: 2 MO FU Chief Complaint: Follow up Is patient in pain?: Yes (shoulders and into right arm with movement) Pain scale (1-10): 9 Allergies phenytoin sodium [From Dilantin] Allergy (Mild, Verified 02/28/18 11:07) Rash phenytoin sodium extended [From Dilantin] Allergy (Mild, Verified 02/28/18 11:07) Rash ketorolac tromethamine [From Toradol] Allergy (Verified 02/28/18 11:07) Anaphylaxis morphine Adverse Reaction (Severe, Verified 02/28/18 11:07) Other Honey Dew Melon Adverse Reaction (Uncoded 02/28/18 11:07) Food Allergy Medications Ergocalciferol [Vitamin D] 50,000 unit PO ROSAS 11/02/15 [History Confirmed 02/28/18] Melatonin 10 mg PO QHS 11/02/15 [History Confirmed 02/28/18] Levothyroxine [Synthroid] 50 mcg PO DAILY 05/01/16 [History Confirmed 02/28/18] cholecalciferol (vitamin D3) 1,000 unit tablet 1,000 unit PO DAILY tab 07/23/17 [History Confirmed 02/28/18] leucovorin calcium 25 mg tablet 25 mg PO ONCE 07/23/17 [History Confirmed 02/28/18] multivitamin capsule 1 cap PO QAM 07/23/17 [History Confirmed 02/28/18] amitriptyline 10 mg tablet 10 mg PO QHS 11/24/17 [History Confirmed 02/28/18] albuterol sulfate HFA 90 mcg/actuation aerosol inhaler 2 puff INHALATION Q4H PRN 01/26/18 [History Confirmed 02/28/18] budesonide 90 mcg/actuation breath activated powder inhaler 2 inh INHALATION BID PRN 01/26/18 [History Confirmed 02/28/18] fexofenadine 180 mg tablet 180 mg PO Q24H PRN 01/26/18 [History Confirmed 02/28/18] ipratropium-albuterol 0.5 mg-3 mg(2.5 mg base)/3 mL nebulization soln 3 ml INHALATION Q6H PRN 01/26/18 [History Confirmed 02/28/18] montelukast 10 mg tablet 10 mg PO QPM PRN 01/26/18 [History Confirmed 02/28/18] amiloride 5 mg-hydrochlorothiazide 50 mg tablet 0.5 tab PO QDAY #30 tab 02/23/18 [Rx Confirmed 02/28/18] celecoxib 200 mg capsule 200 mg PO QDAY #90 cap 02/23/18 [Rx Confirmed 02/28/18] dulaglutide 1.5 mg/0.5 mL subcutaneous pen injector 1.5 mg SC QWEEK 02/23/18 [History Confirmed 02/28/18] tumeric PO BID 02/23/18 [History Confirmed 02/28/18] acetaminophen 500 mg tablet 500 mg PO Q4H PRN 03/30/18 [History Confirmed 03/30/18] cyclobenzaprine 10 mg tablet PO 30 Days #30 03/30/18 [History Confirmed 03/30/18] ibuprofen 200 mg tablet 200 mg PO TID-QID PRN 03/30/18 [History Confirmed 03/30/18] methotrexate sodium 2.5 mg tablet 17.5 mg PO WE tab 06/01/18 [History Confirmed 06/01/18] potassium chloride ER 20 mEq tablet,extended release 20 meq PO QDAY #90 tab 06/01/18 [Rx Confirmed 06/01/18] Post menopausal: Yes PFSH Medical History Hypopituitarism (Chronic) Arthritis (Chronic) Basal cell carcinoma (Acute) Cellulitis of right lower leg (Acute) Difficulty balancing (Acute) Fatigue (Acute) Hay fever (Acute) Hypokalemia (Acute) Limb weakness (Acute) Low magnesium level (Acute) Migraines (Acute) Pneumonia (Acute) SOB (shortness of breath) (Acute) Seizures (Acute) Vitamin D deficiency (Acute) Asthma (Chronic) Borderline hypertension (Chronic) Bronchitis (Chronic) CSA (central sleep apnea) (Chronic) Hypersomnia (Chronic) MGUS (monoclonal gammopathy of unknown significance) (Chronic) Osteoarthritis (Chronic) Osteopenia (Chronic) Rheumatoid arthritis (Chronic) Thyroid disorder (Chronic) Type 1 diabetes mellitus (Chronic) History of hysterectomy (Resolved) Surgical History History of carpal tunnel release (Acute) D AND C (Resolved) History of 2 sections (Resolved) History of carpal tunnel surgery (Resolved) History of cholecystectomy (Resolved) S/P bunionectomy (Resolved) S/P excision of Molina's neuroma (Resolved) bilateral knee surgery (Resolved) history of T AND A (Resolved) Family History Father Cancer father passed of lung CA at 55 Mother Osteoarthritis COPD (chronic obstructive pulmonary disease) Dementia Brother Myocardial infarction, Onset Age: 49 Aunt Multiple sclerosis Sister Colon cancer Aunt Celiac disease Social History Smoking Status: Never smoker alcohol intake: current alcohol intake frequency: a few times a month Alcohol type: wine substance use type: does not use what type of physical activity do you participate in: swimming, bicycling, walking frequency: 3-4 times per week HPI HPI Chief Complaint: Follow up Details: MITCHELL MENON, is a 67yo F who presents to the office today for follow-up of her chronic medical conditions. Blood pressure has remained stable. She reports compliance with her medications. Lower extremity edema still persistent. She has not used her compression stockings as recommended. ROS Const Constitutional: No weight change, body ache, chills, fatigue, sleep problems, fever(s), change in appetite, snoring, weakness, frequent falls or excessive sweating Eyes Eyes: No change in vision, eye pain, light sensitivity or blurry vision ENT ENT: No abnormal hearing, ear pain, tinnitus, nasal congestion, sore throat or neck pain Resp Respiratory: No snoring, cough, shortness of breath or wheezing Cardio Cardiology: No excessive sweating, chest pain at rest, chest pain with exertion, shortness of breath, dyspnea on exertion, palpitations, orthopnea or lightheadedness Gastro GI: No abdominal pain, change in bowel habits, constipation, diarrhea, vomiting, nausea/dyspepsia or cramping Genitourinary-Female: No burning urination, painful urination, urinary incontinence, urinary frequency, abnormal vaginal bleeding, pelvic pain or other Musc Musculoskeletal: No neck pain, abnormal walking, joint pain, back pain, limited range of motion, numbness or tingling Skin Skin: No redness, dry skin, itching, lesions, wounds or rash Neuro Neurology: No weakness, frequent falls, abnormal hearing, abnormal speech, dizziness, memory loss, abnormal walking, numbness or tingling Psych Psychiatric: No change in appetite, No memory loss, No anxiety, No depression, No Thoughts of harming yourself/Others Endo Endocrine: No fatigue, excessive sweating, cold intolerance, increased thirst/drinking, heat intolerance, flushing or increased hunger Aller/Imm Allergy/Immunologic: No wheezing, itchy eyes, hives or seasonal allergy symptoms Manolo/Lymp Hematologic/Lymphatic: No easy bleeding, easy bruising or enlarged lymph nodes Exam Const General: cooperative, no acute distress Orientation: alert, awake, oriented x3 HENMT Head: atraumatic, normocephalic, normal to inspection Ears: hearing grossly normal bilaterally Resp Effort AND Inspection: normal respiratory effort, able to speak in complete sentences Auscultation: Bilateral: Clear to Auscultation Cardio Rate: regular rate Rhythm: regular rhythm Heart Sounds: S1 normal, S2 normal GI Palpation: soft, no hepatosplenomegaly Neuro General: alert, awake, oriented x3, CN's II-XI intact bilaterally, moves all extremities Extrem General: pedal edema Psych Appearance: grossly normal Mental Status: mental status grossly normal Mood: congruent mood Affect: normal affect Immunizations Fluad 2017- 65yr up(PF)45 mcg(15 mcgx3)/0.5 mL intramuscular syringe Performing Provider: Yoanna Hull MD Administered by: Lizzy Bales on 06/01/18 15:49 Dose Route Admin Location Lot Number Expiration Date NDC Science Teacher 45 mcg IM Right Deltoid [id number] 02/07/19 13468-017-57 SEQIRUS VIS Given Date VIS Publication Date 06/01/18 03/17/15 Eligibility Eligibility Date Assessment AND Plan 1. Hypertension I10 Plan Stable. Continue current medication and life style/ dietary modification. 2. Hypokalemia E87.6 Plan Medication induced. Stable at last check. Continue potassium supplements. 3. Bilateral lower extremity edema R60.0 Plan Persisting. Patient not very compliant with compression. Compression encouraged. Readdress at next visit. 4. Flu vaccine need Z23 Plan Flu shot given today. This note was generated with [employer] dictation software. It may contain incorrect words, spelling, and punctuation that were not noted in checking the note before signing. Orders Orders: Medications Discontinued: Fluad 2017- 65yr up(PF)45 mcg(15 mcgx3)/0.5 mL [id number] mcg (0.5 mL) IM ONCE #1 0RF NS scular syringe (flu vac 2018 [id number]-[id number](PF)) Disco ntinued Reason: Office Medication has been Documented a s given Plan Detail Other Medications Changed: Coding Level of Care Code Off vis,est,level 3 Diagnoses Hypertension I10 Hypokalemia E87.6 Bilateral lower extremity edema R60.0 Flu vaccine need Z23 06/02/18 0812 <Electronically signed by Yoanna Hull MD> Date Yoanna Hull MD Cosigner Signature: Date (if applicable) CC: BRAIN W/WO CONTRAST Observed: 05/07/2018 Status: F Source: [place] 11:27 AM [facility] REPOSITORY [facility] Imaging Services [address] [place] [address] Brain W/WO Contrast MR#: [id number] Acct: [id number] Name: MITCHELL MENON Rep #: [id number] : 1950 F 67 From: Wu Bates MD PCP: Yoanna Hull MD Status: REG CLI Study: Brain W/WO Contrast Date of Exam: 05/07/18 Exam# [id number] Ordering Dr: Neema Kaba MD STUDY: MRI BRAIN WITH AND WITHOUT CONTRAST REASON FOR EXAM: Female, 67 years old. Pituitary abnormality TECHNIQUE: Standardized multiplanar fat and water weighted pulse sequences were obtained. 20 ml of Dotarem contrast material was administered intravenously for the contrast portion of the examination. COMPARISON: CT of the brain on April 12, 2016. FINDINGS: Normal size of the ventricles and extra-axial spaces for the patient's age. Minor periventricular white matter ischemic changes without mass effect or restricted diffusion. There are chronic ischemic changes in the right dentate nucleus. Chronic ischemic changes within the right pontine body. Normal bilateral basal ganglia. Normal thalami. There is no extra-axial fluid accumulation. Normal flow voids within the major intracranial circulation suggesting patency by spin echo criteria. Normal venous enhancement. There is no enhancing intra-axial or extra-axial abnormality. The pituitary is normal size. There is very slight heterogeneous enhancement but no well-defined nodule. Nevertheless microadenoma cannot be entirely excluded and correlation with laboratory values recommended for further evaluation. Normal, infundibular stalk, optic chiasm and hypothalamus. Normal tectal plate and pineal gland. Normal midbrain and medulla. Normal basal cisterns. Normal bilateral temporal bones. Normal bilateral internal auditory canals. No demonstrated orbital abnormality, within the constraints of a routine brain study. Small mucous retention cyst in left maxillary sinus.. Normal calvarium and skull base. Normal visualized soft tissue structures. Normal visualized upper cervical spine. MRI/Brain W/WO Contrast IMPRESSION: Minor periventricular white matter ischemic changes without evidence for acute infarct. Minor chronic ischemic changes within the milagros and cerebellum. Normal size pituitary without well-defined nodule Electronically Signed: Wu Bates MD at 16:48 EDT , Service support , CC: Neema Kaba MD; Yoanna Hull MD Transportation Officer: Signed COMPREHENSIVE METABOLIC Collected: 04/24/2018 Status: F Source: [place] PROFIL 1:17 PM [facility] REPOSITORY Order Comment: DR. HULL WANTS THE [facility] ALSO TYPE CODE TESTS RESULT OUT OF RANGE REFERENCE UNITS LAB L501.0100 74-106 mg/dL Normal GLU 86 Result Comment: Please note revised GLUCOSE reference range effective 2017. LAB L501.1000 7-18 mg/dL Normal BUN 18 LAB L501.1100 0.55-1.02 mg/dL Normal CREAT,SERUM 0.83 Result Comment: The validity of the calculated GFR AND GFRAA in patients over 70 years has not been determined. Clinical correlation is essential. LAB L501.1110 >60 mL/min Normal EST GFR 73 Result Comment: Non- GFR Calc LAB L501.1115 >60 mL/min Normal EST GFR - AA 89 Result Comment: GFR Calc LAB L501.1300 10-20 RATIO High BUN/CRE 21.7 LAB L501.1500 6.4-8.2 g/dL T Normal PROT 7.5 LAB L501.1800 3.2-5.0 g/dL Normal ALB 3.8 LAB L501.1950 2.2-4.2 g/dL Normal GLOB 3.7 LAB L501.2000 0.9-2.4 RATIO Normal A/G 1.0 LAB L501.2200 8.5-10.1 mg/dL CA Normal 9.3 LAB L501.4100 15-37 U/L Normal AST 33 LAB L501.4305 45-117 U/L Normal ALK P 99 LAB L501.4405 13-56 U/L Normal ALT 55 LAB L501.4600 0.20-1.00 mg/dL T Normal BILI 0.70 LAB L501.5300 136-145 mmol/L NA Normal 143 LAB L501.5600 3.5-5.1 mmol/L K Normal 3.5 LAB L501.5900 98-107 mmol/L CL Normal 104 LAB L501.6100 21.0-32.0 mmol/L Normal CO2 28.0 LAB L501.6200 5-15 Normal GAP 11 Performed By: #### L500.4050, L501.43131, L501.9520, L506.0400 #### [facility] [address] [place], [address] FREE T3 Collected: 04/24/2018 Status: F Source: ALEX 1:17 PM [facility] REPOSITORY Order Comment: DR. HULL WANTS THE [facility] ALSO TYPE CODE TESTS RESULT OUT OF RANGE REFERENCE UNITS LAB L501.41675 2.18-3.98 pg/mL Normal FREE T3 3.1 Performed By: #### L500.4050, L501.40578, L501.9520, L506.0400 #### [facility] [address] [place], [address] THYROID STIM HORMONE Collected: 04/24/2018 Status: F Source: [place] (TSH) 1:17 PM [facility] REPOSITORY Order Comment: DR. HULL WANTS THE CMP ALSO TYPE CODE TESTS RESULT OUT OF RANGE REFERENCE UNITS LAB L501.9520 0.358-3.74 uIU/mL Normal TSH 1.48 Performed By: #### L500.4050, L501.16663, L501.9520, L506.0400 #### [facility] [address] [place], [address] T4 FREE DIRECT Collected: 04/24/2018 Status: F Source: [place] 1:17 PM [facility] REPOSITORY Order Comment: DR. HULL WANTS THE CMP ALSO TYPE CODE TESTS RESULT OUT OF RANGE REFERENCE UNITS LAB L506.0400 0.76-1.46 ng/dL Normal T4 FREE 1.15 DIRECT Performed By: #### L500.4050, L501.06704, L501.9520, L506.0400 #### [facility] [address] [place], [address] HEMOGLOBIN A1C Collected: 04/24/2018 Status: F Source: [place] 1:17 PM [facility] REPOSITORY Order Comment: DR. HULL WANTS THE CMP ALSO TYPE CODE TESTS RESULT OUT OF RANGE REFERENCE UNITS LAB L501.9985 4.2-6.3 % Normal HGB A1C 5.9 Performed By: #### L501.9985 #### [facility] [address] [place], [address] INTERNAL MEDICINE Observed: 03/31/2018 Status: F Source: [place] OFFICE VISIT 4:21 PM [facility] [address] [place] [address] [place] [address] OFFICE VISIT Date of Service: 03/30/18 MR#: [id number] Acct: [id number] Name: MITCHELL MENON Rep #: [id number] : 1950 Provider: Yoanna Hull MD Age/Sex: 67/F Location: [facility] Status: Signed Intake Vital Signs03/30/18 Height 5 ft 5 in 03/30/18 Weight: 251 lb 8 oz 03/30/18 Body Mass Index (BMI) 41.8 03/30/18 Blood Pressure 138/82 03/30/18 Blood Pressure Location Lt brachial 03/30/18 Blood Pressure Position Sitting Intake Visit Reasons: 1 MO FU Chief Complaint: Follow up BP. Mri Specialist Required: No Accompanied by: None Is patient in pain?: Yes (neck/arms) Pain scale (1-10): 8 Allergies phenytoin sodium [From Dilantin] Allergy (Mild, Verified 02/28/18 11:07) Rash phenytoin sodium extended [From Dilantin] Allergy (Mild, Verified 02/28/18 11:07) Rash ketorolac tromethamine [From Toradol] Allergy (Verified 02/28/18 11:07) Anaphylaxis morphine Adverse Reaction (Severe, Verified 02/28/18 11:07) Other Honey Dew Melon Adverse Reaction (Uncoded 02/28/18 11:07) Food Allergy Medications Ergocalciferol [Vitamin D] 50,000 unit PO ROSAS 11/02/15 [History Confirmed 02/28/18] Melatonin 10 mg PO QHS 11/02/15 [History Confirmed 02/28/18] Levothyroxine [Synthroid] 50 mcg PO DAILY 05/01/16 [History Confirmed 02/28/18] cholecalciferol (vitamin D3) 1,000 unit tablet 1,000 unit PO DAILY tab 07/23/17 [History Confirmed 02/28/18] leucovorin calcium 25 mg tablet 25 mg PO ONCE 07/23/17 [History Confirmed 02/28/18] multivitamin capsule 1 cap PO QAM 07/23/17 [History Confirmed 02/28/18] amitriptyline 10 mg tablet 10 mg PO QHS 11/24/17 [History Confirmed 02/28/18] albuterol sulfate HFA 90 mcg/actuation aerosol inhaler 2 puff INHALATION Q4H PRN 01/26/18 [History Confirmed 02/28/18] budesonide 90 mcg/actuation breath activated powder inhaler 2 inh INHALATION BID PRN 01/26/18 [History Confirmed 02/28/18] fexofenadine 180 mg tablet 180 mg PO Q24H PRN 01/26/18 [History Confirmed 02/28/18] ipratropium-albuterol 0.5 mg-3 mg(2.5 mg base)/3 mL nebulization soln 3 ml INHALATION Q6H PRN 01/26/18 [History Confirmed 02/28/18] methotrexate sodium 2.5 mg tablet 15 mg PO WE tab 01/26/18 [History Confirmed 02/28/18] montelukast 10 mg tablet 10 mg PO QPM PRN 01/26/18 [History Confirmed 02/28/18] amiloride 5 mg-hydrochlorothiazide 50 mg tablet 0.5 tab PO QDAY #30 tab 02/23/18 [Rx Confirmed 02/28/18] celecoxib 200 mg capsule 200 mg PO QDAY #90 cap 02/23/18 [Rx Confirmed 02/28/18] dulaglutide 1.5 mg/0.5 mL subcutaneous pen injector 1.5 mg SC QWEEK 02/23/18 [History Confirmed 02/28/18] tumeric PO BID 02/23/18 [History Confirmed 02/28/18] acetaminophen 500 mg tablet 500 mg PO Q4H PRN 03/30/18 [History Confirmed 03/30/18] cyclobenzaprine 10 mg tablet PO 30 Days #30 03/30/18 [History Confirmed 03/30/18] ibuprofen 200 mg tablet 200 mg PO TID-QID PRN 03/30/18 [History Confirmed 03/30/18] oxycodone-acetaminophen 5 mg-325 mg tablet PO 5 Days #40 03/30/18 [History Confirmed 03/30/18] potassium chloride ER 10 mEq tablet,extended release 10 meq PO QDAY #60 tab 03/30/18 [Rx Confirmed 03/30/18] PFSH Medical History Hypopituitarism (Chronic) Arthritis (Chronic) Basal cell carcinoma (Acute) Cellulitis of right lower leg (Acute) Difficulty balancing (Acute) Fatigue (Acute) Hay fever (Acute) Hypokalemia (Acute) Limb weakness (Acute) Low magnesium level (Acute) Migraines (Acute) Pneumonia (Acute) SOB (shortness of breath) (Acute) Seizures (Acute) Vitamin D deficiency (Acute) Asthma (Chronic) Borderline hypertension (Chronic) Bronchitis (Chronic) CSA (central sleep apnea) (Chronic) Hypersomnia (Chronic) MGUS (monoclonal gammopathy of unknown significance) (Chronic) Osteoarthritis (Chronic) Osteopenia (Chronic) Rheumatoid arthritis (Chronic) Thyroid disorder (Chronic) Type 1 diabetes mellitus (Chronic) Surgical History History of carpal tunnel release (Acute) D AND C (Resolved) History of 2 sections (Resolved) History of carpal tunnel surgery (Resolved) History of cholecystectomy (Resolved) History of hysterectomy (Resolved) S/P bunionectomy (Resolved) S/P excision of Molina's neuroma (Resolved) bilateral knee surgery (Resolved) history of T AND A (Resolved) Family History Father Cancer father passed of lung CA at 55 Mother Osteoarthritis COPD (chronic obstructive pulmonary disease) Dementia Brother Myocardial infarction, Onset Age: 49 Aunt Multiple sclerosis Sister Colon cancer Aunt Celiac disease Social History Smoking Status: Never smoker alcohol intake: current alcohol intake frequency: a few times a month Alcohol type: wine substance use type: does not use what type of physical activity do you participate in: swimming, bicycling, walking frequency: 3-4 times per week HPI HPI Chief Complaint: Follow up BP. Details: MITCHELL MENON, is a 67 F who presents to the office today for follow-up of her blood pressure. She was restarted on amiloride hydrochlorothiazide and is better. She however has had persistent hypokalemia. ROS Const Constitutional: Positive for body ache; no chills, fatigue, fever(s), frequent falls, headache(s), weight change, sleep problems, change in appetite, snoring, excessive sweating or weakness Eyes Eyes: No blurry vision, change in vision, eye pain or light sensitivity ENT ENT: No headache(s), abnormal hearing, ear pain, tinnitus, nasal congestion, nasal discharge, sore throat or neck pain Resp Respiratory: No snoring, cough, shortness of breath or wheezing Cardio Cardiology: No excessive sweating, chest pain at rest, chest pain with exertion, shortness of breath, dyspnea on exertion, orthopnea, palpitations or lightheadedness Gastro GI: No abdominal pain, change in bowel habits, diarrhea, constipation, vomiting, nausea/dyspepsia or cramping Genitourinary-Female: No difficulty urinating, burning urination, painful urination, urinary frequency, urinary urgency, urinary incontinence, blood in urine, urinary retention or urinary hesitancy Musc Musculoskeletal: No neck pain, abnormal walking, joint pain, back pain or limited range of motion Skin Skin: No redness, dry skin, itching, lesions, wounds or rash Neuro Neurology: No frequent falls, headache(s), weakness, abnormal hearing, abnormal walking, abnormal speech, dizziness or memory loss Psych Psychiatric: No change in appetite, No memory loss, No anxiety, No depression, No Thoughts of harming yourself/Others Endo Endocrine: No fatigue, excessive sweating, cold intolerance, increased thirst/drinking, heat intolerance, increased hunger or flushing Aller/Imm Allergy/Immunologic: No wheezing, itchy eyes, seasonal allergy symptoms or hives Manolo/Lymp Hematologic/Lymphatic: No easy bleeding, easy bruising or enlarged lymph nodes Exam Const General: cooperative, no acute distress Orientation: alert, awake, oriented x3 [facility] Head: atraumatic, normocephalic, normal to inspection Ears: hearing grossly normal bilaterally Resp Effort AND Inspection: normal respiratory effort, able to speak in complete sentences Auscultation: Bilateral: Clear to Auscultation Cardio Rate: regular rate Rhythm: regular rhythm Heart Sounds: S1 normal, S2 normal GI Palpation: soft, no hepatosplenomegaly Neuro General: alert, awake, oriented x3, CN's II-XI intact bilaterally, moves all extremities Extrem General: pedal edema bilaterally Location: of the leg Psych Appearance: grossly normal Mental Status: mental status grossly normal Mood: congruent mood Affect: normal affect Assessment AND Plan 1. Hypertension I10 Plan Better controlled. Continue current medication and lifestyle modifications. Follow-up in 2 months. Orders Orders: 2. Bilateral lower extremity edema R60.0 Plan Chronic. However has had some worsening lately. Advised to use her compression stockings as recommended. Follow-up at next visit. 3. Hypokalemia E87.6 Plan Medication induced. Increase potassium supplements to 20 mEq daily. Repeat BMP in 2 months. Follow-up at next visit. Orders Orders: 4. Healthcare maintenance Z00.00 Plan Mammogram up-to-date without any abnormality. Had a hysterectomy and so no further scheduled Pap smears. DEXA scan about a year ago suggestive of osteopenia. Repeat in 1 year. This note was generated with [employer] dictation software. It may contain incorrect words, spelling, and punctuation that were not noted in checking the note before signing. Plan Detail Other Medications Refilled: Coding Level of Care Code Off vis,est,level 3 Diagnoses Hypertension I10 Bilateral lower extremity edema R60.0 Hypokalemia E87.6 Healthcare maintenance Z00.00 03/31/18 1621 <Electronically signed by Yoanna Hull MD> Date Yoanna Hull MD Cosigner Signature: Date (if applicable) CC: BASIC METABOLIC Collected: 03/30/2018 Status: F Source: [place] PROFILE (BMP) 8:10 AM [facility] REPOSITORY Order Comment: SEND RESULTS TO DR HULL TYPE CODE TESTS RESULT OUT OF RANGE REFERENCE UNITS LAB L501.0100 74-106 mg/dL High GLU 119 Result Comment: Fasting Glucose result from 100 to 125 mg/dL suggests IMPAIRED HOMEOSTASIS per A.D.A. criteria. Please note revised GLUCOSE reference range effective 2017. LAB L501.1000 7-18 mg/dL High BUN 20 LAB L501.1100 0.55-1.02 mg/dL Normal CREAT,SERUM 0.81 Result Comment: The validity of the calculated GFR AND GFRAA in patients over 70 years has not been determined. Clinical correlation is essential. LAB L501.1110 >60 mL/min Normal EST GFR 75 Result Comment: Non- GFR Calc LAB L501.1115 >60 mL/min Normal EST GFR - AA 91 Result Comment: GFR Calc LAB L501.1300 10-20 RATIO High BUN/CRE 24.7 LAB L501.2200 8.5-10.1 mg/dL CA Normal 8.6 LAB L501.5300 136-145 mmol/L NA Normal 145 LAB L501.5600 3.5-5.1 mmol/L Low K 3.2 LAB L501.5900 98-107 mmol/L CL Normal 104 LAB L501.6100 21.0-32.0 mmol/L Normal CO2 27.0 LAB L501.6200 5-15 Normal GAP 14 Performed By: #### L500.2500 #### [facility] [address] [facility]. [place], [place], [address] CORTISOL SERUM Collected: 03/30/2018 Status: F Source: [place] 8:10 AM [facility] REPOSITORY TYPE CODE TESTS RESULT OUT OF RANGE REFERENCE UNITS LAB L509.6000 3.09-22.40 ug/dL Normal CORTISOL 18.70 Result Comment: Adult (AM) 4.30 - 22.40 ug/dL Adult (PM) 3.09 - 16.66 ug/dL Performed By: #### L509.6000 #### [facility] [address] [facility] [facility]. [place], [place], [id number] ADRENOCORTICOTROPIC HORMONE Collected: Status: F Source: [place] 03/30/2018 8:10 AM [facility] REPOSITORY Order Comment: Has Patient had X-rays with Contrast this admission? N TYPE CODE TESTS RESULT OUT OF RANGE REFERENCE UNITS LAB L3300.1000 7.2-63.3 pg/mL Normal ACTH 4440 55.1 Result Comment: ACTH reference interval for samples collected between 7 and 10 AM. Performed at: - [facility] [address] [id number] Herb Grower: Brian Bautista PhD, Phone: [phone] Performed By: #### L3300.1000 #### [facility] (refer to report for specific site) refer to report for address and phone number CBC W/DIFF, AUTOMATED Collected: 03/24/2018 Status: F Source: [place] 10:08 [facility] REPOSITORY Order Comment: CHARGED VRO WITH DR HULL'S ORDER. TYPE CODE TESTS RESULT OUT OF RANGE REFERENCE UNITS LAB L100.1000 4.4-11.0 K/mm3 Normal WBC 6.0 LAB L100.1200 4.2-5.4 M/mm3 Low RBC 4.17 LAB L100.1300 12.0-15.0 g/dl Normal HGB 12.7 LAB L100.1400 37-47 % Normal HCT 39.7 LAB L100.1500 81-99 fL Normal MCV 95.2 LAB L100.1600 27.0-32.0 pg Normal MCH 30.5 LAB L100.1700 32-36 g/gl Normal MCHC 32.0 LAB L100.1810 11.6-14.6 % Normal RDW CV 13.2 LAB L100.1820 35.1-43.9 fl High RDW SD 45.6 LAB L100.1900 150-450 K/mm3 Normal PLT 358 LAB L100.2000 6.2-12.0 fl Normal MPV 9.8 LAB L100.2100 47-70 % Low NEUT% 43.0 LAB L100.2200 19-41 % High LY% 45.4 LAB L100.2300 0-10 % Normal MONO% 6.6 LAB L100.2400 0-5 % Normal EO% 4.5 LAB L100.2500 0-1 % Normal BASO% 0.5 LAB L100.2550 0.0-0.9 % Normal IM GRAN % 0.000 Result Comment: IG% - Immature Granulocytes (promyelocytes, myelocytes and metamyelocytes) > 1% indicates that a LEFT SHIFT is Present. LAB L100.2620 2.0-7.7 X10 3/uL Normal Absolute Neut 2.6 LAB L100.2720 0.83-4.51 X10 3/ul Normal Absolute Lymph 2.74 Performed By: #### L100.0100 #### [facility] [address] [place], [place], [address] COMPREHENSIVE METABOLIC Collected: 03/24/2018 Status: F [facility] REPOSITORY Order Comment: CHARGED VRO WITH DR HULL'S ORDER. TYPE CODE TESTS RESULT OUT OF RANGE REFERENCE UNITS LAB L501.0100 74-106 mg/dL High GLU 107 Result Comment: Fasting Glucose result from 100 to 125 mg/dL suggests IMPAIRED HOMEOSTASIS per A.D.A. criteria. Please note revised GLUCOSE reference range effective 2017. LAB L501.1000 7-18 mg/dL High BUN 23 LAB L501.1100 0.55-1.02 mg/dL Normal CREAT,SERUM 0.85 Result Comment: The validity of the calculated GFR AND GFRAA in patients over 70 years has not been determined. Clinical correlation is essential. LAB L501.1110 >60 mL/min Normal EST GFR 72 Result Comment: Non- GFR Calc LAB L501.1115 >60 mL/min Normal EST GFR - AA 87 Result Comment: GFR Calc LAB L501.1300 10-20 RATIO High BUN/CRE 27.2 LAB L501.1500 6.4-8.2 g/dL T Normal PROT 7.7 LAB L501.1800 3.2-5.0 g/dL Normal ALB 4.0 LAB L501.1950 2.2-4.2 g/dL Normal GLOB 3.7 LAB L501.2000 0.9-2.4 RATIO Normal A/G 1.1 LAB L501.2200 8.5-10.1 mg/dL CA Normal 8.9 LAB L501.4100 15-37 U/L Normal AST 30 LAB L501.4305 45-117 U/L Normal ALK P 96 LAB L501.4405 13-56 U/L Normal ALT 45 LAB L501.4600 0.20-1.00 mg/dL T Normal BILI 0.50 LAB L501.5300 136-145 mmol/L NA Normal 140 LAB L501.5600 3.5-5.1 mmol/L Low K 3.3 LAB L501.5900 98-107 mmol/L CL Normal 103 LAB L501.6100 21.0-32.0 mmol/L Normal CO2 29.0 LAB L501.6200 5-15 Normal GAP 8 Performed By: #### L500.4050 #### [facility] [address] [place], [address] BASIC METABOLIC Collected: 03/24/2018 Status: F Source: [place] PROFILE (BMP) 9:26 AM [facility] REPOSITORY TYPE CODE TESTS RESULT OUT OF RANGE REFERENCE UNITS LAB L501.0100 74-106 mg/dL Normal GLU 106 Result Comment: Fasting Glucose result from 100 to 125 mg/dL suggests IMPAIRED HOMEOSTASIS per A.D.A. criteria. Please note revised GLUCOSE reference range effective 2017. LAB L501.1000 7-18 mg/dL High BUN 23 LAB L501.1100 0.55-1.02 mg/dL Normal CREAT,SERUM 0.84 Result Comment: The validity of the calculated GFR AND GFRAA in patients over 70 years has not been determined. Clinical correlation is essential. LAB L501.1110 >60 mL/min Normal EST GFR 73 Result Comment: Non- GFR Calc LAB L501.1115 >60 mL/min Normal EST GFR - AA 88 Result Comment: GFR Calc LAB L501.1300 10-20 RATIO High BUN/CRE 27.5 LAB L501.2200 8.5-10.1 mg/dL CA Normal 9.1 LAB L501.5300 136-145 mmol/L NA Normal 139 LAB L501.5600 3.5-5.1 mmol/L Low K 3.2 LAB L501.5900 98-107 mmol/L CL Normal 102 LAB L501.6100 21.0-32.0 mmol/L Normal CO2 28.0 LAB L501.6200 5-15 Normal GAP 9 Performed By: #### L500.2500, L501.5200 #### [facility] [address] [place], [place], [address] MAGNESIUM Collected: 03/24/2018 Status: F Source: [place] 9:26 AM [facility] REPOSITORY TYPE CODE TESTS RESULT OUT OF RANGE REFERENCE UNITS LAB L501.5200 1.6-2.6 mg/dL Normal MG 2.0 Performed By: #### L500.2500, L501.5200 #### [facility] [address] [place], [place], [address] URGENT CARE VISIT Observed: 02/28/2018 Status: F Source: [place] REPORT 11:29 AM [facility] REPOSITORY [address] [place] [address] OFFICE VISIT Date of Service: 02/28/18 MR#: [id number] Acct: [id number] Name: MITCHELL MENON Rep #: [id number] : 1950 Provider: SUHA Mansfield Age/Sex: 67/F Location: [facility] Status: Signed Intake Vital Signs02/28/18 Height 5 ft 5 in Intake Visit Reasons: BACK PAIN/ HAS RA Chief Complaint: back pain at night Allergies phenytoin sodium [From Dilantin] Allergy (Mild, Verified 02/28/18 11:07) Rash phenytoin sodium extended [From Dilantin] Allergy (Mild, Verified 02/28/18 11:07) Rash ketorolac tromethamine [From Toradol] Allergy (Verified 02/28/18 11:07) Anaphylaxis morphine Adverse Reaction (Severe, Verified 02/28/18 11:07) Other Honey Dew Melon Adverse Reaction (Uncoded 02/28/18 11:07) Food Allergy Medications Ergocalciferol [Vitamin D] 50,000 unit PO ROSAS 11/02/15 [History Confirmed 02/28/18] Melatonin 10 mg PO QHS 11/02/15 [History Confirmed 02/28/18] Levothyroxine [Synthroid] 50 mcg PO DAILY 05/01/16 [History Confirmed 02/28/18] cholecalciferol (vitamin D3) 1,000 unit tablet 1,000 unit PO DAILY tab 07/23/17 [History Confirmed 02/28/18] leucovorin calcium 25 mg tablet 25 mg PO ONCE 07/23/17 [History Confirmed 02/28/18] multivitamin capsule 1 cap PO QAM 07/23/17 [History Confirmed 02/28/18] amitriptyline 10 mg tablet 10 mg PO QHS 11/24/17 [History Confirmed 02/28/18] albuterol sulfate HFA 90 mcg/actuation aerosol inhaler 2 puff INHALATION Q4H PRN 01/26/18 [History Confirmed 02/28/18] budesonide 90 mcg/actuation breath activated powder inhaler 2 inh INHALATION BID PRN 01/26/18 [History Confirmed 02/28/18] fexofenadine 180 mg tablet 180 mg PO Q24H PRN 01/26/18 [History Confirmed 02/28/18] ipratropium-albuterol 0.5 mg-3 mg(2.5 mg base)/3 mL nebulization soln 3 ml INHALATION Q6H PRN 01/26/18 [History Confirmed 02/28/18] methotrexate sodium 2.5 mg tablet 15 mg PO WE tab 01/26/18 [History Confirmed 02/28/18] montelukast 10 mg tablet 10 mg PO QPM PRN 01/26/18 [History Confirmed 02/28/18] amiloride 5 mg-hydrochlorothiazide 50 mg tablet 0.5 tab PO QDAY #30 tab 02/23/18 [Rx Confirmed 02/28/18] celecoxib 200 mg capsule 200 mg PO QDAY #90 cap 02/23/18 [Rx Confirmed 02/28/18] dulaglutide 1.5 mg/0.5 mL subcutaneous pen injector 1.5 mg SC QWEEK 02/23/18 [History Confirmed 02/28/18] tumeric PO BID 02/23/18 [History Confirmed 02/28/18] PFSH Medical History Hypopituitarism (Chronic) Arthritis (Chronic) Basal cell carcinoma (Acute) Cellulitis of right lower leg (Acute) Difficulty balancing (Acute) Fatigue (Acute) Hay fever (Acute) Hypokalemia (Acute) Limb weakness (Acute) Low magnesium level (Acute) Migraines (Acute) Pneumonia (Acute) SOB (shortness of breath) (Acute) Seizures (Acute) Vitamin D deficiency (Acute) Asthma (Chronic) Borderline hypertension (Chronic) Bronchitis (Chronic) CSA (central sleep apnea) (Chronic) Hypersomnia (Chronic) MGUS (monoclonal gammopathy of unknown significance) (Chronic) Osteoarthritis (Chronic) Osteopenia (Chronic) Rheumatoid arthritis (Chronic) Thyroid disorder (Chronic) Type 1 diabetes mellitus (Chronic) Surgical History History of carpal tunnel release (Acute) D AND C (Resolved) History of 2 sections (Resolved) History of carpal tunnel surgery (Resolved) History of cholecystectomy (Resolved) History of hysterectomy (Resolved) S/P bunionectomy (Resolved) S/P excision of Molina's neuroma (Resolved) bilateral knee surgery (Resolved) history of T AND A (Resolved) Family History Father Cancer father passed of lung CA at 55 Mother Osteoarthritis COPD (chronic obstructive pulmonary disease) Dementia Brother Myocardial infarction, Onset Age: 49 Aunt Multiple sclerosis Sister Colon cancer Social History Smoking Status: Never smoker alcohol intake: current alcohol intake frequency: a few times a month Alcohol type: wine substance use type: does not use what type of physical activity do you participate in: swimming, bicycling, walking frequency: 3-4 times per week HPI HPI Chief Complaint: back pain at night Details: MITCHELL MENON, is a 67 F who presents to the office today for pain relief. She states she has multiple joint issues including having had bilateral TKA's. She has adrenal insufficiency and arthritis and was weaned off her prednisone completely one week ago. She has no pain right now, but states at night her pain shoots up to 10/10 and she is asking for something she can have at night. 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 She does not want to go to the ER as she doesn't think they would deal with it. She has celebrex which she takes daily. Morphine doesn't work at all so she states she was to list it as an allergy. ROS Const Constitutional: Positive for body ache (legs amd back mainly), night sweats, weakness (left leg feels weak but has not given out. ), fatigue and headache(s) (occasional); no chills, fever(s), frequent falls, change in appetite or excessive sweating Eyes Eyes: No visual disturbances, light sensitivity, eye pain or change in vision ENT ENT: Positive for headache(s) (occasional); no ear pain, ear discharge, hearing loss, dizziness/vertigo, nasal discharge, sore throat, difficulty swallowing or neck pain Resp Respiratory: No cough, chest congestion, hemoptysis, shortness of breath or wheezing Cardio Cardiology: No shortness of breath, irregular heart rhythm, lightheadedness, chest pain at rest, chest pain with exertion, generalized swelling, orthopnea, palpitations or excessive sweating Gastro GI: No difficulty swallowing, abdominal pain, bloating, change in bowel habits, diarrhea, nausea/dyspepsia or vomiting Genitourinary-Female: No burning urination, urinary frequency, urinary urgency, blood in urine or Vaginal Itching Musc Musculoskeletal: Positive for joint pain, back pain (down her lefft leg at times. ), muscle cramps, muscle weakness (feels her left leg is week.Last fell 05/2017.But using cane x 3 days/wobbly) and radiating pain into limb (left leg); no numbness, tingling or neck pain Skin Skin: No lesions, itching or rash Neuro Neurology: Positive for weakness (left leg feels weak but has not given out. ) and headache(s) (occasional); no abnormal speech, unsteady gait/balance, dizziness, frequent falls, loss of vision, confusion, visual disturbances, numbness or tingling Psych Psychiatric: No change in appetite, No confusion, No anxiety, Positive for depression Endo Endocrine: Positive for fatigue and flushing; no cold intolerance, heat intolerance, increased thirst/drinking or excessive sweating Aller/Imm Allergy/Immunologic: No food intolerance, seasonal allergy symptoms, hives, wheezing or itchy eyes Manolo/Lymp Hematologic/Lymphatic: No easy bruising Exam Const General: cooperative, no acute distress Orientation: alert, oriented x3 HENMT Head: normal to inspection, normocephalic Ears: hearing grossly normal bilaterally, external ears normal Nose: nasal mucous membranes and turbinates normal, no nasal discharge Face and sinus: normal facial exam, sinuses nontender Mouth: oral mucosae normal, oropharynx normal, tongue normal Teeth and gingiva: dentition normal, gingiva normal Throat: posterior oropharynx normal Eyes General: appearance normal, both eyes and all related structures Eyelids: eyelids normal Conjunctivae: conjunctivae normal Sclera: sclerae normal EOM: EOM intact bilaterally Neck Neck: normal visual inspection, full ROM, supple Carotids: no bruits Lymphatic: no lymphadenopathy noted Chest Chest palpation AND inspection: normal inspection of the chest Resp Effort AND Inspection: normal respiratory effort, able to speak in complete sentences, symmetric chest movement, no audible wheezes, no cough, not labored, no respiratory distress Auscultation: Bilateral: Clear to Auscultation Cardio Rate: regular rate Rhythm: regular rhythm Heart Sounds: S1 normal, S2 normal GI Inspection: normal to inspection Auscultation: normal bowel sounds Palpation: soft, no hepatosplenomegaly, no pulsatile masses Musc Musculoskeletal: Yes muscle weakness (feels her left leg is week.Last fell 05/2017.But using cane x 3 days/wobbly) Thoracic/Lumbar Spine: thoracic and lumbar spine normal to inspection, thoraco-lumbar ROM normal, straight leg raise negative bilaterally, no paraspinal tenderness, thoraco-lumbar ROM not limited, no thoraco-lumbar spasm, no thoracic spinal tenderness, no lumbar spinal tenderness, other (Patient can squat 50% and rise with complaint only of knee pain not back.) Skin General: no rashes or lesions noted Neuro General: alert, oriented x3, moves all extremities Speech: speech normal Gait: other (amblating with cane x 3 days but doesnt think really needs it) Sensory Exam: no sensory deficits noted Extrem General: normal to inspection Psych Appearance: grossly normal, well kempt Mental Status: mental status grossly normal Affect: normal affect Speech and Movement: speech and movement normal Attitude: cooperative Thought Process: other (questioning thought process, was just in Dr office and doesnt want ER...) Assessment AND Plan Problems 1. History of low back pain Z87.39 2. Degenerative disc disease, lumbar M51.36 Plan No prescrptions given today. Patient advised to switch to Ibuprofen 600 (OTC) every hours until she can reach her PCP Friday morning. Use warm compresses at home for spasms if they occur tonight. TO ER if unable to manage her pain. Coding Level of Care Code Off vis,est,level 3 Diagnoses History of low back pain Z87.39 Degenerative disc disease, lumbar M51.36 02/28/18 1129 <Electronically signed by Simi BORDEN> Date Simi BORDEN Cosigner Signature: Date (if applicable) CC: INTERNAL MEDICINE Observed: 02/27/2018 Status: F Source: [place] OFFICE VISIT 9:06 AM [facility] [address] [place] [address] [place] [address] OFFICE VISIT Date of Service: 02/23/18 MR#: [id number] Acct: [id number] Name: MITCHELL MENON Rep #: [id number] : 1950 Provider: Yoanna Hull MD Age/Sex: 67/F Location: [facility] Status: Signed Intake Vital Signs02/23/18 Height 5 ft 5 in Intake Visit Reasons: 3 MO F/U Chief Complaint: Follow-up Is patient in pain?: Yes (generalized) Pain scale (1-10): 6 Allergies phenytoin sodium [From Dilantin] Allergy (Mild, Verified 02/03/18 12:50) Rash phenytoin sodium extended [From Dilantin] Allergy (Mild, Verified 02/03/18 12:50) Rash ketorolac tromethamine [From Toradol] Allergy (Verified 02/03/18 12:50) Anaphylaxis morphine Adverse Reaction (Severe, Verified 02/03/18 12:50) Other Honey Dew Melon Adverse Reaction (Uncoded 02/03/18 12:50) Food Allergy Medications Ergocalciferol [Vitamin D] 50,000 unit PO ROSAS 11/02/15 [History Confirmed 02/03/18] Melatonin 10 mg PO QHS 11/02/15 [History Confirmed 02/03/18] Levothyroxine [Synthroid] 50 mcg PO DAILY 05/01/16 [History Confirmed 02/03/18] cholecalciferol (vitamin D3) 1,000 unit tablet 1,000 unit PO DAILY tab 07/23/17 [History Confirmed 02/03/18] leucovorin calcium 25 mg tablet 25 mg PO ONCE 07/23/17 [History Confirmed 02/03/18] multivitamin capsule 1 cap PO QAM 07/23/17 [History Confirmed 02/03/18] amitriptyline 10 mg tablet 10 mg PO QHS 11/24/17 [History Confirmed 02/03/18] albuterol sulfate HFA 90 mcg/actuation aerosol inhaler 2 puff INHALATION Q4H PRN 01/26/18 [History Confirmed 02/03/18] budesonide 90 mcg/actuation breath activated powder inhaler 2 inh INHALATION BID PRN 01/26/18 [History Confirmed 02/03/18] fexofenadine 180 mg tablet 180 mg PO Q24H PRN 01/26/18 [History Confirmed 02/03/18] ipratropium-albuterol 0.5 mg-3 mg(2.5 mg base)/3 mL nebulization soln 3 ml INHALATION Q6H PRN 01/26/18 [History Confirmed 02/03/18] methotrexate sodium 2.5 mg tablet 15 mg PO WE tab 01/26/18 [History Confirmed 02/03/18] montelukast 10 mg tablet 10 mg PO QPM PRN 01/26/18 [History Confirmed 02/03/18] amiloride 5 mg-hydrochlorothiazide 50 mg tablet 0.5 tab PO QDAY #30 tab 02/23/18 [Rx Confirmed 02/23/18] celecoxib 200 mg capsule 200 mg PO QDAY #90 cap 02/23/18 [Rx Confirmed 02/23/18] dulaglutide 1.5 mg/0.5 mL subcutaneous pen injector 1.5 mg SC QWEEK 02/23/18 [History Confirmed 02/23/18] tumeric PO BID 02/23/18 [History Confirmed 02/23/18] PFSH Medical History Hypopituitarism (Chronic) Arthritis (Chronic) Basal cell carcinoma (Acute) Cellulitis of right lower leg (Acute) Difficulty balancing (Acute) Fatigue (Acute) Hay fever (Acute) Hypokalemia (Acute) Limb weakness (Acute) Low magnesium level (Acute) Migraines (Acute) Pneumonia (Acute) SOB (shortness of breath) (Acute) Seizures (Acute) Vitamin D deficiency (Acute) Asthma (Chronic) Borderline hypertension (Chronic) Bronchitis (Chronic) CSA (central sleep apnea) (Chronic) Hypersomnia (Chronic) MGUS (monoclonal gammopathy of unknown significance) (Chronic) Osteoarthritis (Chronic) Osteopenia (Chronic) Rheumatoid arthritis (Chronic) Thyroid disorder (Chronic) Type 1 diabetes mellitus (Chronic) Surgical History History of carpal tunnel release (Acute) D AND C (Resolved) History of 2 sections (Resolved) History of carpal tunnel surgery (Resolved) History of cholecystectomy (Resolved) History of hysterectomy (Resolved) S/P bunionectomy (Resolved) S/P excision of Molina's neuroma (Resolved) bilateral knee surgery (Resolved) history of T AND A (Resolved) Family History Father Cancer father passed of lung CA at 55 Mother Osteoarthritis COPD (chronic obstructive pulmonary disease) Dementia Brother Myocardial infarction, Onset Age: 49 Aunt Multiple sclerosis Sister Colon cancer Social History Smoking Status: Never smoker alcohol intake: current alcohol intake frequency: a few times a month Alcohol type: wine substance use type: does not use what type of physical activity do you participate in: swimming, bicycling, walking frequency: 3-4 times per week HPI HPI Chief Complaint: Follow-up Details: MITCHELL MENON, is a 67yo F who presents to the office today for follow-up. She has no acute complaints at this time. Blood pressure is still elevated today and review of her log shows elevated blood pressure. Patient does state that she had previously been on amiloride hydrochlorothiazide however discontinued it months ago. She is also concerned about increasing loose stool/bowel movements. She denies nausea, vomiting or any weight changes. She had previously followed up with Dr. Gomez. ROS Const Constitutional: No weight change, body ache, chills, fatigue, sleep problems, fever(s), change in appetite, snoring, weakness, frequent falls, headache(s) or excessive sweating Eyes Eyes: No change in vision, eye pain, light sensitivity or blurry vision ENT ENT: No headache(s), abnormal hearing, ear pain, tinnitus, nasal congestion, sore throat or neck pain Resp Respiratory: Positive for shortness of breath; no snoring, cough or wheezing Cardio Cardiology: No excessive sweating, chest pain at rest, chest pain with exertion, shortness of breath, dyspnea on exertion, palpitations, orthopnea or lightheadedness Gastro GI: No abdominal pain, change in bowel habits, constipation, diarrhea, vomiting, nausea/dyspepsia or cramping Genitourinary-Female: No burning urination, painful urination, urinary incontinence, urinary frequency, abnormal vaginal bleeding, pelvic pain or other Musc Musculoskeletal: No neck pain, abnormal walking, joint pain, back pain, limited range of motion, numbness or tingling Skin Skin: No redness, dry skin, itching, lesions, wounds or rash Neuro Neurology: No weakness, frequent falls, headache(s), abnormal hearing, abnormal walking, numbness, tingling, abnormal speech, dizziness or memory loss Psych Psychiatric: No change in appetite, No memory loss, No anxiety, No depression, No Thoughts of harming yourself/Others Endo Endocrine: No fatigue, excessive sweating, cold intolerance, increased thirst/drinking, heat intolerance, flushing or increased hunger Aller/Imm Allergy/Immunologic: No wheezing, itchy eyes, hives or seasonal allergy symptoms Manolo/Lymp Hematologic/Lymphatic: No easy bleeding, easy bruising or enlarged lymph nodes Exam Const General: cooperative, no acute distress Orientation: alert, awake, oriented x3 HENMT Head: normal to inspection, normocephalic Ears: hearing grossly normal bilaterally Resp Effort AND Inspection: normal respiratory effort, able to speak in complete sentences Auscultation: Bilateral: Clear to Auscultation Cardio Rate: regular rate Rhythm: regular rhythm Heart Sounds: S1 normal, S2 normal GI Palpation: soft, no hepatosplenomegaly Neuro General: alert, awake, oriented x3, moves all extremities, CN's II-XI intact bilaterally Extrem General: no clubbing, cyanosis or edema Psych Appearance: grossly normal Mood: congruent mood Affect: normal affect Assessment AND Plan 1. Hypertension I10 Plan Persistent. Will restart on amiloride hydrochlorothiazide. Advised to take half a tab daily. Lifestyle modifications recommended. BMP in 2 weeks. Follow-up with blood pressure log in 1 month. Orders Orders: 2. Abnormal bowel movement R19.8 Plan Concerned about intermittent episodes of diarrhea and constipation and occasionally what appears to be fecal incontinence. Has followed up with Dr. Gomez in the past. Advised to reschedule a visit. Follow-up at next visit 3. Healthcare maintenance Z00.00 Plan Mammogram up-to-date without any abnormality. Had a hysterectomy and so no further scheduled Pap smears. Discussed DEXA scan at next visit. This note was generated with [employer] dictation software. It may contain incorrect words, spelling, and punctuation that were not noted in checking the note before signing. Plan Detail Other Medications New: Discontinued: azithromycin Discontinued Reason:take 500 mg today (day 1), then 250 H66.90 Lizzy Bales Pt no longer taking mg for 4 days (days 2-5) PO Coding Level of Care Code Off vis,est,level 3 Diagnoses Hypertension I10 Abnormal bowel movement R19.8 Healthcare maintenance Z00.00 02/27/18 0906 <Electronically signed by Yoanna Hull MD> Date Yoanna Hull MD Cosigner Signature: Date (if applicable) CC: ECHOCARDIOGRAM COMPLETE Observed: 02/06/2018 Status: F Source: ALEX 9:50 AM [facility] REPOSITORY [facility] Cardiovascular Services [address] [address] Echo Complete 02/05/18 1122 MR#: [id number] Acct: [id number] Name: MITCHELL MENON Rep #: [id number] : 1950 67 From: Cortez Montana MD Attending Dr: Kvng Nunez MD Status: REG CLI Ordering Dr: Kvng Nunez MD Date: 02/05/18 Location: [facility] Sex: F C Admitted: Reason For Study: DYSPNEA Procedure This was a 2D Doppler, Color Flow transthoracic echocardiogram. Exam performed in department. Left Ventricle Normal size and thickness. The estimated ejection fraction is 65 %. Stage 1 diastolic dysfunction. Septal motion consistent with IVCD. No regional wall motion abnormalities noted. Right Ventricle Normal size and thickness. Normal systolic function. Atria Normal left atrium. Normal right atrium. Normal atrial septum. Mitral Valve The mitral valve is structurally normal. No prolapse or stenosis seen. Tricuspid Valve Normal tricuspid valve. Trivial tricuspid valve insufficiency. Right ventricular systolic pressure estimated to be 22 mmHg. Aortic Valve Normal aortic valve. Trisinus/trileaflet aortic valve. Pulmonic Valve Normal pulmonic valve. Great Vessels Normal aortic root. Normal arch. Normal inferior vena cava. Inferior vena cava collapse with sniff. Pericardium/Pleural No pericardial effusion. MMode/2D Measurements AND Calculations LVIDd: 4.7 cm IVSd: 0.98 cm Ao root diam: 3.3 cm LVIDs: 3.1 cm LVPWd: 1.0 cm RVDd: 3.7 cm FS: 34.1 % LAV(MOD-bp): 48.8 ml LA A4 area: 20.3 cm2 RA A4 area: 17.8 cm2 LAV(MOD-bp) Indexed: 22.3 ml/m2 LAV(MOD-sp2): 38.2 ml LAV(MOD-sp4): 58.9 ml Time Measurements MV dec time: 0.23 sec Doppler Measurements AND Calculations MV E max rai: 87.6 cm/sec Lat Peak E' Rai: 6.6 cm/sec Med Peak E' Rai: 5.0 cm/sec MV A max rai: 110.7 cm/sec E/E' lat: 13.3 E/E' med: 17.6 MV E/A: 0.79 Ao V2 max: 138.0 cm/sec LV V1 max: 96.3 cm/sec TR max rai: 202.5 cm/sec Ao max P.6 mmHg LV V1 max P.7 mmHg TR max P.4 mmHg Interpretation Summary The estimated ejection fraction is 65 %. Stage 1 diastolic dysfunction. Trivial tricuspid valve insufficiency. Right ventricular systolic pressure estimated to be 22 mmHg. Compared to echo report dated 12/21/2015, no appreciable changes noted. Ordering Physician: Kvng Nunez Referring Physician: Kvng Nunez Performed By: Beth Mancini, ABELINO, RVT 02/06/18 0949 Date Cortez Montana MD CC: Kvng Nunez MD; Yoanna Hull MD Date Dictated: 02/05/18 1122 Date Transcribed: 02/06/18 0949 Transportation Officer: Signed URGENT CARE VISIT Observed: 02/03/2018 Status: F Source: ALEX REPORT 1:29 PM [facility] REPOS[facility]ORY [facility] [address] [place] [address] [address] [address] OFFICE VISIT Date of Service: 02/03/18 MR#: [id number] Acct: [id number] Name: MITCHELL MENON Rep #: [id number] : 1950 Provider: Jayme BORDEN Age/Sex: 67/F Location: [facility] Status: Signed Intake Vital Signs02/03/18 Height 5 ft 5 in Intake Visit Reasons: BRONCHITIS Allergies phenytoin sodium [From Dilantin] Allergy (Mild, Verified 02/03/18 12:50) Rash phenytoin sodium extended [From Dilantin] Allergy (Mild, Verified 02/03/18 12:50) Rash ketorolac tromethamine [From Toradol] Allergy (Verified 02/03/18 12:50) Anaphylaxis morphine Adverse Reaction (Severe, Verified 02/03/18 12:50) Other Honey Dew Melon Adverse Reaction (Uncoded 02/03/18 12:50) Food Allergy Medications Ergocalciferol [Vitamin D] 50,000 unit PO ROSAS 11/02/15 [History Confirmed 02/03/18] Melatonin 10 mg PO QHS 11/02/15 [History Confirmed 02/03/18] Levothyroxine [Synthroid] 50 mcg PO DAILY 05/01/16 [History Confirmed 02/03/18] celecoxib 200 mg capsule 200 mg PO QDAY 07/23/17 [History Confirmed 02/03/18] cholecalciferol (vitamin D3) 1,000 unit tablet 1,000 unit PO DAILY tab 07/23/17 [History Confirmed 02/03/18] leucovorin calcium 25 mg tablet 25 mg PO ONCE 07/23/17 [History Confirmed 02/03/18] multivitamin capsule 1 cap PO QAM 07/23/17 [History Confirmed 02/03/18] amitriptyline 10 mg tablet 10 mg PO QHS 11/24/17 [History Confirmed 02/03/18] hydroxychloroquine 200 mg tablet 200 mg PO QDAY 11/24/17 [History Confirmed 02/03/18] albuterol sulfate HFA 90 mcg/actuation aerosol inhaler 2 puff INHALATION Q4H PRN 01/26/18 [History Confirmed 02/03/18] budesonide 90 mcg/actuation breath activated powder inhaler 2 inh INHALATION BID PRN 01/26/18 [History Confirmed 02/03/18] fexofenadine 180 mg tablet 180 mg PO Q24H PRN 01/26/18 [History Confirmed 02/03/18] ipratropium-albuterol 0.5 mg-3 mg(2.5 mg base)/3 mL nebulization soln 3 ml INHALATION Q6H PRN 01/26/18 [History Confirmed 02/03/18] methotrexate sodium 2.5 mg tablet 15 mg PO WE tab 01/26/18 [History Confirmed 02/03/18] montelukast 10 mg tablet 10 mg PO QPM PRN 01/26/18 [History Confirmed 02/03/18] prednisone 5 mg tablet 2.5 mg PO BID tab 01/26/18 [History Confirmed 02/03/18] azithromycin 250 mg tablet See Label Instructions PO .COMPLEX #6 tab 02/03/18 [Rx Confirmed 02/03/18] [facility] Medical History Hypopituitarism (Chronic) Arthritis (Chronic) Basal cell carcinoma (Acute) Cellulitis of right lower leg (Acute) Difficulty balancing (Acute) Fatigue (Acute) Hay fever (Acute) Hypokalemia (Acute) Limb weakness (Acute) Low magnesium level (Acute) Migraines (Acute) Pneumonia (Acute) SOB (shortness of breath) (Acute) Seizures (Acute) Vitamin D deficiency (Acute) Asthma (Chronic) Borderline hypertension (Chronic) Bronchitis (Chronic) CSA (central sleep apnea) (Chronic) Hypersomnia (Chronic) MGUS (monoclonal gammopathy of unknown significance) (Chronic) Osteoarthritis (Chronic) Osteopenia (Chronic) Rheumatoid arthritis (Chronic) Thyroid disorder (Chronic) Type 1 diabetes mellitus (Chronic) Surgical History History of carpal tunnel release (Acute) D AND C (Resolved) History of 2 sections (Resolved) History of carpal tunnel surgery (Resolved) History of cholecystectomy (Resolved) History of hysterectomy (Resolved) S/P bunionectomy (Resolved) S/P excision of Molina's neuroma (Resolved) bilateral knee surgery (Resolved) history of T AND A (Resolved) Family History Father Cancer father passed of lung CA at 55 Mother Osteoarthritis COPD (chronic obstructive pulmonary disease) Dementia Brother Myocardial infarction, Onset Age: 49 Aunt Multiple sclerosis Sister Colon cancer Social History Smoking Status: Never smoker alcohol intake: current alcohol intake frequency: a few times a month Alcohol type: wine substance use type: does not use what type of physical activity do you participate in: swimming, bicycling, walking frequency: 3-4 times per week HPI HPI Details: MITCHELL MENON, is a 67 F who presents to the office today for concern over cough for the past 4 days as well as nasal/sinus congestion and headache. Patient reports that due to all the congestion this morning she had her take several different inhalers as well as an antihistamine which she reports did help with the congestion. She also reports a cough which has been productive of clear sputum. She denies hemoptysis, shortness breath or chest pain. She has had no fever, chills, sweats. No nausea, vomiting, diarrhea. No other associated symptoms or alleviating/aggravating factors. ROS Const Constitutional: Positive for headache(s); no fever(s), chills, night sweats or abnormal sleep pattern ENT ENT: Positive for headache(s), nasal congestion, sinus pressure, sinus pain, nasal discharge, ear pressure, sore throat and post nasal drip; no ear pain Resp Respiratory: No cough or shortness of breath Cardio Cardiology: No shortness of breath, irregular heart rhythm or fast heart rate Neuro Neurology: Positive for headache(s); no confusion Psych Psychiatric: No abnormal sleep pattern, No confusion Exam Const General: cooperative, healthy appearing [facility] Head: normal to inspection Ears: hearing grossly normal bilaterally, EAC's normal, TM abnormal bulging on the left and erythematous on the left Nose: nasal discharge purulent Face and sinus: sinus tenderness frontal and maxillary Mouth: oral mucosae normal Throat: abnormal tonsil bilaterally, postnasal drainage Resp Effort AND Inspection: normal respiratory effort Auscultation: Bilateral: Clear to Auscultation Cardio Palpation: normal PMI Rate: regular rate Rhythm: regular rhythm Neuro General: alert, CN's II-XI intact bilaterally Psych Appearance: grossly normal Mental Status: mental status grossly normal Assessment AND Plan Problems 1. URI, acute J06.9 Status Acute 2. Other acute nonsuppurative otitis media of left ear, recurrence not specified H65.192 Status Acute Plan Z-Mitchel as prescribed today. Encouraged to get plenty of rest, drink lots of clear liquids, and use Tylenol or Ibuprofen (unless contraindicated) for fever and comfort. Patient also educated on other symptomatic management techniques. To be seen in 7-10 days if no improvement; sooner if worsening of symptoms. Patient advised of potential red flags when appropriate report to the ED. Patient verbalized understanding all the above. This note was generated with [employer] dictation software. It may contain incorrect words, spelling, and punctuation that were not noted in checking the note before signing. Medications New: Coding Level of Care Code Off vis,est,level 3 Diagnoses URI, acute J06.9 Other acute nonsuppurative otitis media of left ear, recurrence not specified H65.192 Otitis media type: other nonsuppurative Chronicity: acute Laterality: left Recurrence: not specified as recurrent 02/03/18 1329 <Electronically signed by Jayme BORDEN> Date Jayme BORDEN Cosigner Signature: Date (if applicable) CC: SCREENING MAMM (CAD), Observed: 01/30/2018 Status: F Source: ALEX GIL 12:52 PM [facility] Imaging Services [address] [place] [address] SCREENING MAMM (CAD), JEFFERY MR#: [id number] Acct: [id number] Name: MITCHELL MENON Rep #: [id number] : 1950 F 67 From: Billy Kaplan MD PCP: Yoanna Hull MD Status: REG CLI Study: SCREENING MAMM (CAD), BILAT Date of Exam: 01/30/18 Exam# [id number] Ordering Dr: Yoanna Hull MD MAMMOGRAPHY - BILATERAL SCREENING REASON FOR EXAM: Female, 67 years old. Routine annual screening examination. PERTINENT HISTORY: Grandmother with breast cancer. TECHNIQUE: Digital bilateral breast sol (3D mammographic acquisition) in the CC and MLO projections. 2-D mediolateral oblique (MLO) and craniocaudad (CC) views of both breasts were obtained. CAD: Full Field Digital Mammography with Computer Added Detection was performed. COMPARISON: Comparison is made with prior study dated March 03, 2017 and July 18, 2015. FINDINGS: Breast Composition: The breasts are almost entirely fatty. There are no dominant masses or suspicious calcifications. Stable benign-appearing bilateral axillary lymph nodes. No other significant abnormalities are identified. There has been no significant change since the prior study. BI/SCREENING MAMM (CAD), BILAT IMPRESSION: Stable bilateral screening mammogram. Yearly follow-up mammogram recommended. (A) ASSESSMENT CATEGORY: BIRADS Category 2: Benign. A letter regarding these results will be sent to the patient by the facility within 30 days. Approximately 10% of breast cancers are not detected by mammography. A normal mammogram should not delay biopsy of a clinically suspicious abnormality. [id number] Electronically Signed: Billy Kaplan MD at 8:10 EDT Tel [phone], Service support , CC: Yoanna Hull MD Transportation Officer: Signed DOWNTIME REPORT Observed: 01/29/2018 Status: F Source: ALEX 1:50 PM [facility] Medical Records Department [address] [place] [address] Downtime Report MR#: [id number] Acct: [id number] Name: MITCHELL MENON Rep #: [id number] : 1950 67 From: Nick Martinez PCP: Yoanna Hull MD Status: REG CLI This patient was seen during an EMR downtime January 12, 2018 - January 19, 2018. This patient may have a combination of paper and electronic documentation or all paper documentation. All documentation is viewable within the e-chart portion of [employer] for each patient visit. DOWNTIME REPORT Observed: 01/29/2018 Status: F Source: ALEX 12:12 PM [facility] Medical Records Department [address] [place] [address] Downtime Report MR#: [id number] Acct: [id number] Name: MITCHELL MENON Rep #: [id number] : 1950 67 From: Nick Martinez PCP: Yoanna Hull MD Status: REG CLI This patient was seen during an EMR downtime January 12, 2018 - January 19, 2018. This patient may have a combination of paper and electronic documentation or all paper documentation. All documentation is viewable within the e-chart portion of [employer] for each patient visit. PULMONARY VISIT REPORT Observed: 01/27/2018 Status: F Source: ALEX 5:50 AM [facility] REPOSIT[facility] [address] [place] [address] OFFICE VISIT Date of Service: 01/26/18 MR#: [id number] Acct: [id number] Name: MITCHELL MENON Rep #: [id number] : 1950 Provider: Kvng Nunez MD Age/Sex: 67/F Location: [facility] Status: Signed Assessment AND Plan 1. Dyspnea on exertion R06.09 Plan Patient is reporting some dyspnea on exertion. Pulmonary function tests do show a decreased DLCO compared to previous. Walking oximetry did show a significant desaturation with ambulation, but does not require supplemental oxygen at this time. Some concern for possible pulmonary hypertension. Patient has not had an echocardiogram in the past that I can find. Will obtain an echocardiogram for quantification of right heart pressures. Patient does not appear to be fluid overloaded at this time. Do anticipate annual walking oximetry and complete pulmonary function test if echocardiogram is within normal limits. Patient does not have decreased lung volumes, so the likelihood of methotrexate toxicity is less likely. Will defer any CT scans for now. Obtain echocardiogram. Anticipate annual screening PFT and walking oximetry. 2. Mild intermittent asthma without complication J45.20 Plan Patient gives a history of obstructive lung disease responsive to albuterol and Pulmicort therapy. Patient's lung function from a spirometry standpoint is within normal limits indicating probable mild intermittent asthma. Will attempt to obtain old pulmonary function tests for verification. Given lack of symptoms on a daily basis, and is likely reasonable to proceed with as needed albuterol. Sick policy and signs and symptoms of exacerbation were reviewed in detail. Continue as needed albuterol. 3. MARCELLA (obstructive sleep apnea) G47.33 Plan Patient's pulmonary function tests did show a decrease in DLCO compared to normal. This may be a sign of uncontrolled sleep apnea versus pulmonary hypertension. Patient reports she has been compliant with CPAP therapy, but no compliance report is available for review at this time. Did encourage the patient to pursue weight loss as this has been shown to improve obstructive events. Patient voiced understanding. Encourage continued compliance with CPAP therapy. 4. Adrenal insufficiency E27.40 Plan Patient does carry a diagnosis of adrenal insufficiency. Patient does have some nonpitting swelling of the lower extremities. This is likely secondary to steroid effect and not additional fluid. Did encourage patient to discuss with endocrinology about possibility of coming off of prednisone therapy. Defer to agricultural chemist. Plan Detail Other Orders Orders: Follow Up 6 Months ([facility]) HPI 3 M FU: Chief Complaint: Follow-up test results Details: Patient is a 67-year-old female, currently in the care of Dr. Hlul, who presents for evaluation secondary recent test results. Since last visit, patient denies any ER visits, hospitalizations or prednisone burst. Patient states she does feel subjectively improved compared to previous. Patient continues to be active swimming 3 times per week. Patient reports she has been compliant with her methotrexate and Plaquenil therapy. Patient feels that her rheumatoid arthritis is in good control at this time. Patient denies any cough. Patient does report that she tends to clear her throat quite often, typically after eating. Patient denies any aspiration events. Patient does report that she has transitioned to prednisone 2.5 mg twice daily with some improvement in overall condition. Patient is currently requiring no Ventolin therapy. Patient has Pulmicort available, but only uses this during exacerbations. Patient estimates that she uses these medications approximately twice per year, typically in the summer and winter. These are usually associated with viral type illnesses. Patient denies any change in exercise tolerance. Patient has not had any syncope or trauma events. Patient reports she has been compliant with MARCELLA therapy and has had a sleep study in the last 2 years. Patient has noted some swelling of the hands and feet. Testing personally reviewed with the patient Complete PFT (01/19/2018): Mild isolated reduction diffusing capacity (FVC 94%, FEV1 87%, TLC 107%, DLCO 69%) Walking oximetry (01/01/2018): Ambulated 981 feet over the course of 6 minutes on room air with an oxygen noble of 90% Intake Vital Signs01/26/18 Height 5 ft 5.5 in 01/26/18 Weight: 115.212 kg Intake Visit Reasons: 3 M FU Chief Complaint: F/u for MGUS. Allergies phenytoin sodium [From Dilantin] Allergy (Mild, Verified 12/01/17 14:45) Rash phenytoin sodium extended [From Dilantin] Allergy (Mild, Verified 12/01/17 14:45) Rash ketorolac tromethamine [From Toradol] Allergy (Verified 12/01/17 14:45) Anaphylaxis morphine Adverse Reaction (Severe, Verified 12/01/17 14:45) Other Honey Dew Melon Adverse Reaction (Uncoded 12/01/17 14:45) Food Allergy Medications Ergocalciferol [Vitamin D] 50,000 unit PO ROSAS 11/02/15 [History Confirmed 01/26/18] Melatonin 10 mg PO QHS 11/02/15 [History Confirmed 01/26/18] Levothyroxine [Synthroid] 50 mcg PO DAILY 05/01/16 [History Confirmed 01/26/18] celecoxib 200 mg capsule 200 mg PO QDAY 07/23/17 [History Confirmed 01/26/18] cholecalciferol (vitamin D3) 1,000 unit tablet 1,000 unit PO DAILY tab 07/23/17 [History Confirmed 01/26/18] leucovorin calcium 25 mg tablet 25 mg PO ONCE 07/23/17 [History Confirmed 01/26/18] multivitamin capsule 1 cap PO QAM 07/23/17 [History Confirmed 01/26/18] amitriptyline 10 mg tablet 10 mg PO QHS 11/24/17 [History Confirmed 01/26/18] hydroxychloroquine 200 mg tablet 200 mg PO QDAY 11/24/17 [History Confirmed 11/24/17] albuterol sulfate HFA 90 mcg/actuation aerosol inhaler 2 puff INHALATION Q4H PRN 01/26/18 [History Confirmed 01/26/18] budesonide 90 mcg/actuation breath activated powder inhaler 2 inh INHALATION BID PRN 01/26/18 [History Confirmed 01/26/18] fexofenadine 180 mg tablet 180 mg PO Q24H PRN 01/26/18 [History Confirmed 01/26/18] ipratropium-albuterol 0.5 mg-3 mg(2.5 mg base)/3 mL nebulization soln 3 ml INHALATION Q6H PRN 01/26/18 [History Confirmed 01/26/18] methotrexate sodium 2.5 mg tablet 15 mg PO WE tab 01/26/18 [History Confirmed 01/26/18] montelukast 10 mg tablet 10 mg PO QPM PRN 01/26/18 [History Confirmed 01/26/18] prednisone 5 mg tablet 2.5 mg PO BID tab 01/26/18 [History Confirmed 01/26/18] PFSH Medical History Hypopituitarism (Chronic) Arthritis (Chronic) Basal cell carcinoma (Acute) Cellulitis of right lower leg (Acute) Difficulty balancing (Acute) Fatigue (Acute) Hay fever (Acute) Hypokalemia (Acute) Limb weakness (Acute) Low magnesium level (Acute) Migraines (Acute) Pneumonia (Acute) SOB (shortness of breath) (Acute) Seizures (Acute) Vitamin D deficiency (Acute) Asthma (Chronic) Borderline hypertension (Chronic) Bronchitis (Chronic) CSA (central sleep apnea) (Chronic) Hypersomnia (Chronic) MGUS (monoclonal gammopathy of unknown significance) (Chronic) Osteoarthritis (Chronic) Osteopenia (Chronic) Rheumatoid arthritis (Chronic) Thyroid disorder (Chronic) Type 1 diabetes mellitus (Chronic) Surgical History History of carpal tunnel release (Acute) D AND C (Resolved) History of 2 sections (Resolved) History of carpal tunnel surgery (Resolved) History of cholecystectomy (Resolved) History of hysterectomy (Resolved) S/P bunionectomy (Resolved) S/P excision of Molina's neuroma (Resolved) bilateral knee surgery (Resolved) history of T AND A (Resolved) Family History Father Cancer father passed of lung CA at 55 Mother Osteoarthritis COPD (chronic obstructive pulmonary disease) Dementia Brother Myocardial infarction, Onset Age: 49 Aunt Multiple sclerosis Sister Colon cancer Social History Smoking Status: Never smoker alcohol intake: current alcohol intake frequency: a few times a month Alcohol type: wine substance use type: does not use what type of physical activity do you participate in: swimming, bicycling, walking frequency: 3-4 times per week Review of Systems Const CONSTITUTIONAL: Positive fatigue and seasonal allergies; negative anorexia, body ache, chills, daytime sleepiness, fever(s), night sweats, oral thrush, stops breathing during sleep, weight loss, sleeping in chair, weight loss, weight gain, frequent colds, other, headache(s) or orthopnea EETM Ear Nose Throat Mouth: Positive hearing normal and nasal discharge; negative hard of hearing, hoarseness, dry mouth in morning, change in vision, itchy eyes, eye pain, swallowing Difficulty, ear pain, nose bleed, headache(s), mouth pain, nasal congestion, post nasal drip, sinus pain, sinus pressure, sore throat or other Cardio Cardiovascular: Positive edema Location: lower extremity; negative chest pain, chest pain at rest, chest pain with activity, irregular heart rhythm, shortness of breath when lying down, palpitations, murmur or other Resp Respiratory: Positive as per HPI; negative shortness of breath, pain with cough, wheezing, chest congestion, cough, chest tightness, pain on inspiration, inhalers, increase use of rescue inhalers, snoring, apnea or other Gastro Gastrointestional: Negative bloody stools, change in appetite, difficulty swallowing, reflux, hematemesis, melena stool, loose stool, constipation or other Genitourinary: Negative blood in urine, nocturia, pain with urination or other Musc Musculoskeletal: Negative body pain, back pain, neck pain or other Skin/Breast Skin/Breast: Negative dry skin, itching, rash, unusual bruising, breast lump or other Neuro Neurological: Negative restless legs, confusion, weakness or other Psych Psychocological: Negative abnormal sleep pattern, anxiety, thoughts of hurting self/others, hopelessness or other Lymph Lymphatic: Negative easy bleeding, easy bruising, swollen lymph nodes or other Exam Const Constitutional: Positive conversant, cooperative, in no acute respiratory distress, healthy appearing, well developed, well nourished, good hygiene and obese; negative ill appearing Head Head: Positive normocephalic and atraumatic; negative cyanosis of lips/distal nose, microcephalic or macrocephalic Eyes Eye: Positive clear conjunctiva; negative nystagmus or scleral abnormality Ears Ear: Positive hearing normal and external ears normal; negative hard of hearing Nose Nose: Positive external nose normal, septum normal and no nasal discharge; negative epistaxis or nasal polyp Mouth Mouth: Positive oral mucosae normal, no lesions and crowded posterior oropharynx; negative post nasal drip or malodorous breath Mallampati Score: III: Mallampati Score Neck Neck: Positive normal visual inspection, thick neck, full ROM, trachea midline and female neck greater than 37 cm (15 in); negative lymphadenopathy or JVD Chest Wall Chest: Positive normal inspection of the chest; negative increased A/P diameter, symmetric chest movement, crepitus or tenderness Resp lung sounds: Positive clear to auscultation, good air exchange, normal expiratory time and normal respiratory effort; negative wheezes, rhonchi, rales, wheeze present on forced exhalation, dullness to percussion or use of accessory muscles Cardio Cardiac: Positive regular rate, regular rhythm, S1 normal and S2 normal; negative murmur, rub or gallop GI GI: Positive obese, normal to inspection and normal bowel sounds; negative distended or ascites Genitourinary: Positive deferred Musc Musculoskeletal: Positive steady gait and ROM normal; negative using an assistive device for ambulation, kyphosis or scoliosis Skin Pulmonary Skin Exam: Positive intact; negative rash, lesion, ulcers or erythema Pulses Pulse: Yes radial pulses present Extremities Extremities: Yes capillary refill normal, No clubbing, No cyanosis, Yes edema (Nonpitting) Location: lower extremity Neuro Neurologic: Yes conversant, Yes no focal neuro deficits, Yes normal coordination, Yes normal concentration, Yes cooperative, Yes normal cognition Lymph Lymphatic: No lymphadenopathy Psych Appearance: Positive grossly normal Mental Status: Positive mental status grossly normal Mood: Positive congruent mood Affect: Positive normal affect Coding Level of Care Code Off vis,est,level 4 Diagnoses Dyspnea on exertion R06.09 Dyspnea type: dyspnea on exertion Mild intermittent asthma without complication J45.20 Asthma complication type: uncomplicated Asthma persistence: intermittent Asthma severity: mild MARCELLA (obstructive sleep apnea) G47.33 Adrenal insufficiency E27.40 01/27/18 0550 <Electronically signed by Kvng Nunez MD> Date Kvng Nunez MD Cosigner Signature: Date (if applicable) CC: Yoanna Hull MD PULMONARY FUNCTION Observed: 01/19/2018 Status: F Source: [place] TEST 11:56 AM [facility] REPOSITORY [facility] Pulmonary Services/Neurology [address] [place] [address] [place] [address] MR#: [id number] Acct: [id number] Name: MITCHELL MENON Rep #: [id number] : 1950 67 From: Anjum Haider DO Referring Dr: Kvng Nunez MD Status: REG CLI Ordering Dr: Date: Location: [facility] Sex: F C INTRODUCTION: The patient is a 67-year-old female that presents for pulmonary function testing secondary to a diagnosis of dyspnea. Respiratory therapy reports good patient effort. Bronchodilators were used during testing. INTERPRETATION: Forced expiration spirometry demonstrates no evidence of a large airways obstructive ventilatory defect. There was no significant response to aerosolized bronchodilators. Spirograms are of good quality and plateau gradually. Body plethysmography was performed and reveals lung volumes to be within normal limits. Diffusing capacity by single breath CO is mildly reduced at 69% of predicted. IMPRESSION: These pulmonary function studies demonstrate the presence of an isolated mild reduction in diffusing capacity. There are no previous pulmonary function studies available for comparison. 01/19/18 1156 <Electronically signed by Anjum Haider DO> Date Anjum Haider DO CC: Kvng Nunez MD; Yoanna Hull MD Date Dictated: 01/19/181153 Date Transcribed: 01/19/181153 Transportation Officer: LESLEY Signed COMPREHENSIVE METABOLIC Collected: 01/16/2018 Status: F Source: [place] 8:03 AM [facility] REPOSITORY Order Comment: CMP AND CBCD FOR [facility] FOR [facility] TYPE CODE TESTS RESULT OUT OF RANGE REFERENCE UNITS LAB L501.0100 74-106 mg/dL Normal GLU 80 Result Comment: Please note revised GLUCOSE reference range effective 2017. LAB L501.1000 7-18 mg/dL High BUN 20 LAB L501.1100 0.55-1.02 mg/dL Normal CREAT,SERUM 0.83 Result Comment: The validity of the calculated GFR AND GFRAA in patients over 70 years has not been determined. Clinical correlation is essential. LAB L501.1110 >60 mL/min Normal EST GFR 73 LAB L501.1115 >60 mL/min Normal EST GFR - AA 88 LAB L501.1300 10-20 RATIO High BUN/CRE 24.1 LAB L501.1500 6.4-8.2 g/dL Normal T PROT 7.2 LAB L501.1800 3.2-5.0 g/dL Normal ALB 3.7 LAB L501.1950 2.2-4.2 g/dL Normal GLOB 3.5 LAB L501.2000 0.9-2.4 RATIO Normal A/G 1.1 LAB L501.2200 8.5-10.1 mg/dL Normal CA 8.7 LAB L501.4100 15-37 U/L Normal AST 24 LAB L501.4305 45-117 U/L Normal ALK P 88 LAB L501.4405 13-56 U/L Normal ALT 38 LAB L501.4600 0.20-1.00 mg/dL Normal T BILI 0.30 LAB L501.5300 136-145 mmol/L Normal NA 145 LAB L501.5600 3.5-5.1 mmol/L Normal K 3.7 LAB L501.5900 98-107 mmol/L Normal CL 107 LAB L501.6100 21.0-32.0 mmol/L Normal CO2 30.0 LAB L501.6200 5-15 Normal GAP 8 Performed By: #### L500.4050, L501.50500, L501.9520, L506.0400 #### [facility] [address] [place], [address] FREE T3 Collected: 01/16/2018 Status: F Source: [place] 8:03 AM [facility] REPOSIT[facility] Order Comment: CMP AND CBCD FOR [facility] FOR [facility] TYPE CODE TESTS RESULT OUT OF RANGE REFERENCE UNITS LAB L501.81705 2.18-3.98 pg/mL Normal FREE T3 2.9 Performed By: #### L500.4050, L501.18837, L501.9520, L506.0400 #### [facility] [address] [place], [place], [address] THYROID STIM HORMONE Collected: 01/16/2018 Status: F Source: [place] (T[place]) 8:03 [facility] REPOSITORY Order Comment: [facility] TYPE CODE TESTS RESULT OUT OF RANGE REFERENCE UNITS LAB L501.9520 0.358-3.74 uIU/mL Normal TSH 2.75 Performed By: #### L500.4050, L501.28879, L501.9520, L506.0400 #### [facility] [address] [place], [place], [address] T4 FREE DIRECT Collected: 01/16/2018 Status: F Source: [place] 8:03 AM [facility] REPOSIT[facility] Order Comment: CMP AND CBCD FOR [facility] CODE TESTS RESULT OUT OF RANGE REFERENCE UNITS LAB L506.0400 0.76-1.46 ng/dL Normal T4 FREE 1.15 DIRECT Performed By: #### L500.4050, L501.19785, L501.9520, L506.0400 #### [facility] [place], [address] CBC W/DIFF, AUTOMATED Collected: 01/16/2018 Status: F Source: [place] 8:03 AM [facility] REPOSIT[facility] Order Comment: CMP AND CBCD FOR [facility] RESULT(S) PREVIOUSLY REPORTED ON MANUAL REQUISITION DURING DOWNTIME. TYPE CODE TESTS RESULT OUT OF RANGE REFERENCE UNITS LAB L100.1000 4.4-11.0 K/mm3 Normal WBC 8.1 LAB L100.1200 4.2-5.4 M/mm3 Low RBC 4.02 LAB L100.1300 12.0-15.0 g/dl Normal HGB 12.6 LAB L100.1400 37-47 % Normal HCT 39.6 LAB L100.1500 81-99 fL Normal MCV 98.5 LAB L100.1600 27.0-32.0 pg Normal MCH 31.3 LAB L100.1700 32-36 g/gl Low MCHC 31.8 LAB L100.1810 11.6-14.6 % Normal RDW CV 13.7 LAB L100.1820 35.1-43.9 fl High RDW SD 48.5 LAB L100.1900 150-450 K/mm3 Normal PLT 343 LAB L100.2000 6.2-12.0 fl Normal MPV 9.8 LAB L100.2100 47-70 % Low NEUT% 44.6 LAB L100.2200 19-41 % High LY% 45.1 LAB L100.2300 0-10 % Normal MONO% 7.3 LAB L100.2400 0-5 % Normal EO% 2.3 LAB L100.2500 0-1 % Normal BASO% 0.5 LAB L100.2550 0.0-0.9 % Normal IM GRAN % 0.200 Result Comment: IG% - Immature Granulocytes (promyelocytes, myelocytes and metamyelocytes) > 1% indicates that a LEFT SHIFT is Present. LAB L100.2620 2.0-7.7 X10 3/uL Normal Absolute Neut 3.6 LAB L100.2720 0.83-4.51 X10 3/ul Normal Absolute Lymph 3.66 Performed By: #### L100.0100 #### [facility] [address] [place], [address] 6 MINUTE WALK TEST Observed: 01/02/2018 Status: F Source: [place] 11:37 AM [facility] REPOSITORY [facility] Pulmonary Services/Neurology [address] [place] [address] MR#: [id number] Acct: [id number] Name: MITCHELL MENON Rep #: [id number] : 1950 67 From: Anjum Haider DO Referring Dr: Kvng Nunez MD Date: Ordering Dr: Sex: F C Location: PSN PSN 6 Minute Walk Test - 6 Minute Walk Test 6 Minute Walk Test: 6 Minute Walk Test PSN:6-Minute Walk Test Start: 01/01/18 13:51 Freq: Status: Active Protocol: RESP.6MINW Document 01/01/18 12:50 [facility] (Rec: 01/01/18 14:13 [facility] [id number]) 6 Minute Walk Test Date Performed 01/01/18 Time Performed 12:50 Height 5 ft 5.5 in Weight: 249 lb Weight in Pounds 249.[address]: Kvng Nunez Assistive device used: None Pre-test Oxygen Delivery Method Room Air Pulse Ox (%) 99 Pulse Rate (60-100 beats/min) 84 Dyspnea Emma Scale (0-10) 0 Exertion Emma Scale (6-20) 6 1st minute Oxygen Delivery Method Room Air Pulse Ox (%) 98 Pulse Rate (60-100 beats/min) 97 Number of Rests Taken 0 2nd minute Oxygen Delivery Method Room Air Pulse Ox (%) 92 Pulse Rate (60-100 beats/min) 98 Number of Rests Taken 0 Reported Symptoms Increased Work of Breathing 3rd minute Oxygen Delivery Method Room Air Pulse Ox (%) 98 Pulse Rate (60-100 beats/min) 88 Number of Rests Taken 1 4th minute Oxygen Delivery Method Room Air Pulse Ox (%) 90 Pulse Rate (60-100 beats/min) 96 Number of Rests Taken 0 5th minute Oxygen Delivery Method Room Air Pulse Ox (%) 90 Pulse Rate (60-100 beats/min) 103 H Number of Rests Taken 0 Reported Symptoms Increased Work of Breathing 6th minute Oxygen Delivery Method Room Air Pulse Ox (%) 94 Pulse Rate (60-100 beats/min) 105 H Reported Symptoms Increased Work of Breathing Dizziness Post-test Oxygen Delivery Method Room Air Pulse Ox (%) 97 Pulse Rate (60-100 beats/min) 87 Dyspnea Emma Scale (0-10) 4 Exertion Emma Scale (6-20) 14 Full Laps Walked 16 Partial Lap, Number of Tiles Walked 37 Total Distance Walked (ft) 981 - Interpretation Interpretation: The patient ambulated 981 feet over the course of 6 minutes beginning on room air without assistive devices or breaks. Pretesting saturation was noted to be 99% on room air. With ambulation, the noble oxygen saturation was 90%. This represents a significant exertional oxygen desaturation. - Recommendations Recommendations: There is no indication for the use of supplemental oxygen at this time. However, close interval follow-up is recommended given the degree of oxygen desaturation noted during this study. 01/02/18 113 <Electronically signed by Anjum Haider DO> Date Anjum Haider DO CC: Date Dictated: 01/02/18 1135 Date Transcribed: 01/02/181134 Transportation Officer: Anjum Haider DO Signed ONCOLOGY VISIT REPORT Observed: 12/02/2017 Status: F Source: [place] 5:11 PM [facility] REPOSIT[facility] [place] [address] OFFICE VISIT Date of Service: 12/01/17 1536 MR#: [id number] Acct: [id number] Name: LYNSEYMITCHELL Lorena Rep #: [id number] : 1950 From: Dontrell Torres MD Age/Sex: 66/F Location: OMD Status: Signed Subjective - Date of Service Date of Service:: 12/01/17 - Chief Complaint F/u for MGUS. - History of Present Illness 86-year-old woman was diagnosed with MGUS about 20 years ago. She has remained stable currently on observation, comes in for follow-up. She feels well. - Past Medical/Social History Past Medical History Past Medical History: Asthma Other Past Medical History: MOMOGAMMOPATHY (MGUS) HX ADRENAL INSUFFICIENCY CELLULITIS HYPOKALEMIA Cancer: Skin cancer Other Cancer History: MGUS Past Surgical History Surgical: Carpal tunnel,Cholecystectomy,Hysterectomy,Knee replacement,Tonsillectomy Other Surgical History: KNEE SURGERY BILATERAL Family History Paternal Past Medical History: Unknown Paternal History of Cancer Lung cancer Maternal Past Medical History: Alzheimer's disease,Heart disease,Osteoarthritis Social History Social History: No changes Smoking Status Never smoker Review of Systems Constitutional:: Denies: Fever, Sweats, Weight loss, Appetite change, Chills Cardiovascular:: Denies: Chest pain, Palpitations, Dyspnea on exertion, Orthopnea, PND, Shortness of breath Respiratory: Reports: Cough - recovering from a cold.. Denies: Hemoptysis, Shortness of Breath, Wheezing Gastrointestinal:: Denies: Abdominal pain, Nausea, Vomiting, Diarrhea, Constipation, Hematochezia Genitourinary: Denies: Dysuria, Hematuria, 15, Flank pain Musculoskeletal:: Denies: Back pain, Myalgia, Arthralgia Skin: Denies: Rash, Skin Changes, Wounds Neurological:: Denies: Headache, Dizziness, Visual changes, Tinnitus, Hearing loss Vital Signs Height 5 ft 6 in Weight: 116.573 kg Weight in Pounds 257.0 lbs Pulse Ox 96 - Physical Exam General: Alert, Oriented x3, No apparent distress Laboratory Data: Labs October 21, 2017 reviewed, WBC 8.9 hemoglobin 13.4 platelets 384 creatinine 0.9 calcium 9.1 total protein 7.7 albumin 3.8 SPEP July 2017 reviewed M spike 0.3. Assessment and Plan MGUS, clinically stable with no evidence of progressive disease. Discussed disease status with patient. Plan is to continue observation. RTC 1 yr with CBC,CMP, SPEP/FLC. Primary Care Provider: Amadeo Del Angel MD Referring Provider: - Problem List (1) MGUS (monoclonal gammopathy of unknown significance) Status: Chronic 12/02/17 1111 <Electronically signed by Dontrell Torres MD> Date Dontrell Torres MD Cosigner Signature: Date (if applicable) CC: URGENT CARE VISIT Observed: 11/24/2017 Status: F Source: [place] REPORT 4:12 PM [facility] REPOSIT[facility] [address] [place] [address] [address] [address] OFFICE VISIT Date of Service: 11/24/17 MR#: [id number] Acct: [id number] Name: MITCHELL MENON Rep #: [id number] : 1950 Provider: Jayme BORDEN Age/Sex: 66/F Location: [facility] Status: Signed Intake Vital Signs11/24/17 Height 5 ft 5 in Intake Visit Reasons: BRONCHITIS Allergies phenytoin sodium [From Dilantin] Allergy (Mild, Verified 11/24/17 13:39) Rash phenytoin sodium extended [From Dilantin] Allergy (Mild, Verified 11/24/17 13:39) Rash ketorolac tromethamine [From Toradol] Allergy (Verified 11/24/17 13:39) Anaphylaxis morphine Adverse Reaction (Severe, Verified 11/24/17 13:39) Other Honey Dew Melon Adverse Reaction (Uncoded 11/24/17 13:39) Food Allergy Medications Ergocalciferol [Vitamin D] 50,000 unit PO ROSAS 11/02/15 [History Confirmed 11/24/17] Melatonin 10 mg PO QHS 11/02/15 [History Confirmed 11/24/17] Levothyroxine [Synthroid] 50 mcg PO DAILY 05/01/16 [History Confirmed 11/24/17] Methotrexate 12.5 mg PO WE 09/12/16 [History Confirmed 11/24/17] celecoxib 200 mg capsule 200 mg PO QDAY 07/23/17 [History Confirmed 11/24/17] cholecalciferol (vitamin D3) 1,000 unit tablet 1,000 unit PO DAILY tab 07/23/17 [History Confirmed 11/24/17] leucovorin calcium 25 mg tablet 25 mg PO ONCE 07/23/17 [History Confirmed 11/24/17] multivitamin capsule 1 cap PO QAM 07/23/17 [History Confirmed 11/24/17] prednisone 5 mg tablet 5 mg PO DAILY 09/10/17 [History Confirmed 11/24/17] amitriptyline 10 mg tablet 10 mg PO QHS 11/24/17 [History Confirmed 11/24/17] azithromycin 250 mg tablet 250 mg PO QDAY 5 Days #6 tab 11/24/17 [Rx] hydroxychloroquine 200 mg tablet 200 mg PO QDAY 11/24/17 [History Confirmed 11/24/17] PFSH Medical History Hypopituitarism (Chronic) Arthritis (Chronic) Basal cell carcinoma (Acute) Cellulitis of right lower leg (Acute) Difficulty balancing (Acute) Fatigue (Acute) Hay fever (Acute) Hypokalemia (Acute) Limb weakness (Acute) Low magnesium level (Acute) Migraines (Acute) Pneumonia (Acute) SOB (shortness of breath) (Acute) Seizures (Acute) Vitamin D deficiency (Acute) Asthma (Chronic) Borderline hypertension (Chronic) Bronchitis (Chronic) CSA (central sleep apnea) (Chronic) Hypersomnia (Chronic) MGUS (monoclonal gammopathy of unknown significance) (Chronic) Osteoarthritis (Chronic) Osteopenia (Chronic) Rheumatoid arthritis (Chronic) Thyroid disorder (Chronic) Type 1 diabetes mellitus (Chronic) Surgical History History of carpal tunnel release (Acute) D AND C (Resolved) History of 2 sections (Resolved) History of carpal tunnel surgery (Resolved) History of cholecystectomy (Resolved) History of hysterectomy (Resolved) S/P bunionectomy (Resolved) S/P excision of Molina's neuroma (Resolved) bilateral knee surgery (Resolved) history of T AND A (Resolved) Family History Father Cancer father passed of lung CA at 55 Mother Osteoarthritis COPD (chronic obstructive pulmonary disease) Dementia Brother Myocardial infarction, Onset Age: 49 Aunt Multiple sclerosis Sister Colon cancer Social History Smoking Status: Never smoker alcohol intake: current alcohol intake frequency: a few times a month Alcohol type: wine substance use type: does not use what type of physical activity do you participate in: swimming, bicycling, walking frequency: 3-4 times per week HPI HPI Details: MITCHELL MENON, is a 66 F who presents to the office today for continued cough and congestion for the past 2 weeks. Patient states that she has a history of adrenal insufficiency as well as seasonal allergies and initially believed her symptoms were due to her allergies. Patient states that she has been taking several allergy medications as well as increasing her amount of daily steroid with no results. Patient reports that her cough has been dry and nonproductive but denies hemoptysis, shortness of breath or difficulty breathing. She has had no fever, chills, sweats. No nausea, vomiting, diarrhea. No other associated symptoms or alleviating/aggravating factors. ROS Const Constitutional: No fever(s), chills, night sweats, abnormal sleep pattern or headache(s) ENT ENT: Positive for nasal discharge, nasal congestion and post nasal drip; no headache(s), ear pain, ear discharge or sore throat Resp Respiratory: Positive for cough Cough: Yes non-productive, wheezing and pain with cough; no hemoptysis or shortness of breath Cardio Cardiology: No chest pain at rest or shortness of breath Neuro Neurology: No behavioral changes, confusion or headache(s) Psych Psychiatric: No abnormal sleep pattern, No behavioral changes, No confusion Aller/Imm Allergy/Immunologic: Positive for wheezing Exam Const General: cooperative, well developed HENMT Head: normal to inspection, atraumatic Ears: hearing grossly normal bilaterally Nose: nasal discharge clear Face and sinus: normal facial exam Mouth: oral mucosae normal Throat: abnormal tonsil bilaterally Resp Effort AND Inspection: normal respiratory effort, no audible wheezes Auscultation: Bilateral: Clear to Auscultation Cardio Palpation: normal PMI Rate: regular rate Rhythm: regular rhythm Neuro General: alert, CN's II-XI intact bilaterally Psych Appearance: grossly normal Mental Status: mental status grossly normal Assessment AND Plan Problems 1. Acute bronchitis, unspecified organism J20.9 Status Acute Plan Azithromycin as prescribed today as well as duo nebs 4 times daily for the next 5 days. Encouraged to get plenty of rest, drink lots of clear liquids, and use Tylenol or Ibuprofen (unless contraindicated) for fever and comfort. Patient also educated on other symptomatic management techniques. To be seen in 7-10 days if no improvement; sooner if worsening of symptoms. Patient advised of potential red flags when appropriate report to the ED. Patient verbalized understanding of all the above. Medications New: azithromycin Take 2 tabs once on day one then take one [id number] mg PO QDAY 5 days J20.9 et once daily for the next 4 days. Coding Level of Care Code Off vis,est,level 3 Diagnoses Acute bronchitis, unspecified organism J20.9 Bronchitis organism: unspecified organism 11/24/17 7330 <Electronically signed by Jayme Mika PA> Date Jayme Mulligan Signature: Date (if applicable) CC: INTERNAL MEDICINE Observed: 11/05/2017 Status: F Source: [place] OFFICE VISIT 6:14 PM [facility] [address] [place] [address] [place] [address] OFFICE VISIT Date of Service: 11/05/17 MR#: [id number] Acct: [id number] Name: MITCHELL MENON Rep #: [id number] : 1950 Provider: Yoanna Hull MD Age/Sex: 66/F Location: [facility] Status: Signed Intake Vital Signs11/05/17 Body Mass Index (BMI) 42.0 11/05/17 Blood Pressure 145/81 11/05/17 Height 5 ft 5 in 11/05/17 Weight: 254 lb 11/05/17 Body Mass Index (BMI) 42.3 11/05/17 Blood Pressure 138/93 Intake Visit Reasons: 2 MO F/U Chief Complaint: Follow - Up. Is patient in pain?: Yes (Rt arm AND hand) Pain scale (1- 10): 4 Allergies phenytoin sodium [From Dilantin] Allergy (Mild, Verified 11/05/17 13:03) Rash phenytoin sodium extended [From Dilantin] Allergy (Mild, Verified 11/05/17 13:03) Rash ketorolac tromethamine [From Toradol] Allergy (Verified 11/05/17 13:03) Anaphylaxis morphine Adverse Reaction (Severe, Verified 11/05/17 13:03) Other Honey Dew Melon Adverse Reaction (Uncoded 11/05/17 13:03) Food Allergy Medications Ergocalciferol [Vitamin D] 50,000 unit PO ROSAS 11/02/15 [History Confirmed 11/05/17] Melatonin 10 mg PO QHS 11/02/15 [History Confirmed 11/05/17] Amitriptyline HCl [Elavil] 25 mg PO QHS 02/23/16 [History Confirmed 11/05/17] Levothyroxine [Synthroid] 50 mcg PO DAILY 05/01/16 [History Confirmed 11/05/17] Dulaglutide [Trulicity] 1.5 mg SQ MO 09/12/16 [History Confirmed 11/05/17] Folic Acid 0.8 mg PO BID 09/12/16 [History Confirmed 11/05/17] Methotrexate 12.5 mg PO WE 09/12/16 [History Confirmed 11/05/17] Magnesium 1 tab PO DAILY 11/06/16 [History Confirmed 11/05/17] aspirin 81 mg tablet,delayed release 81 mg PO QDAY 07/23/17 [History Confirmed 11/05/17] celecoxib 200 mg capsule 200 mg PO QDAY 07/23/17 [History Confirmed 11/05/17] cholecalciferol (vitamin D3) 1,000 unit tablet 1,000 unit PO DAILY tab 07/23/17 [History Confirmed 11/05/17] leucovorin calcium 25 mg tablet 25 mg PO ONCE 07/23/17 [History Confirmed 11/05/17] multivitamin capsule 1 cap PO QAM 07/23/17 [History Confirmed 11/05/17] omeprazole 10 mg capsule,delayed release 10 mg PO DAILY PRN 09/10/17 [History Confirmed 11/05/17] prednisone 5 mg tablet 5 mg PO DAILY 09/10/17 [History Confirmed 11/05/17] triamterene 37.5 mg-hydrochlorothiazide 25 mg capsule 1 cap PO QAM PRN 09/10/17 [History Confirmed 11/05/17] [facility] Medical History Hypopituitarism (Chronic) Arthritis (Chronic) Basal cell carcinoma (Acute) Cellulitis of right lower leg (Acute) Hypokalemia (Acute) Low magnesium level (Acute) Pneumonia (Acute) Vitamin D deficiency (Acute) Asthma (Chronic) Borderline hypertension (Chronic) Bronchitis (Chronic) CSA (central sleep apnea) (Chronic) Hypersomnia (Chronic) MGUS (monoclonal gammopathy of unknown significance) (Chronic) Osteoarthritis (Chronic) Osteopenia (Chronic) Rheumatoid arthritis (Chronic) Thyroid disorder (Chronic) Type 1 diabetes mellitus (Chronic) Surgical History History of carpal tunnel release (Acute) D AND C (Resolved) History of 2 sections (Resolved) History of carpal tunnel surgery (Resolved) History of cholecystectomy (Resolved) History of hysterectomy (Resolved) S/P bunionectomy (Resolved) S/P excision of Molina's neuroma (Resolved) bilateral knee surgery (Resolved) history of T AND A (Resolved) Family History Father Cancer father passed of lung CA at 55 Mother Osteoarthritis COPD (chronic obstructive pulmonary disease) Dementia Brother Myocardial infarction, Onset Age: 49 Aunt Multiple sclerosis Sister Colon cancer Social History Smoking Status: Never smoker alcohol intake: current alcohol intake frequency: a few times a month Alcohol type: wine substance use type: does not use what type of physical activity do you participate in: swimming, bicycling, walking frequency: 3-4 times per week HPI HPI Chief Complaint: Follow - Up. Details: MITCHELL MENON, is a 66yo F who presents to the office today for follow up of her blood pressure. Blood pressure is said to have averaged in the 130's over 70's. She is also due for her mammogram. ROS Const Constitutional: Positive for headache(s) and fatigue; no anorexia or malaise Eyes Eyes: No bulging eyes or eye pain ENT ENT: Positive for headache(s); no hearing loss, dizziness/vertigo or throat swelling Resp Respiratory: No cough, chest congestion or wheezing Cardio Cardiology: No chest pain at rest or lightheadedness Gastro GI: No change in bowel habits or abdominal pain Musc Musculoskeletal: No abnormal walking Neuro Neurology: Positive for headache(s); no abnormal walking, confusion or behavioral changes Psych Psychiatric: No confusion, No behavioral changes Endo Endocrine: Positive for fatigue Aller/Imm Allergy/Immunologic: No throat swelling or wheezing Manolo/Lymp Hematologic/Lymphatic: No easy bleeding Exam Const General: cooperative, no acute distress, well developed Orientation: alert, awake, oriented x3 HENMT Head: normal to inspection, normocephalic, atraumatic Ears: hearing grossly normal bilaterally Resp Effort AND Inspection: normal respiratory effort, able to speak in complete sentences Auscultation: Bilateral: Clear to Auscultation Cardio Rate: regular rate Rhythm: regular rhythm Heart Sounds: S1 normal, S2 normal GI Inspection: obesity Palpation: soft, no hepatosplenomegaly Neuro General: alert, awake, oriented x3, CN's II-XI intact bilaterally Extrem General: no clubbing, cyanosis or edema Psych Appearance: grossly normal Mental Status: mental status grossly normal Affect: normal affect Assessment AND Plan 1. Hypertension I10 Plan Mild. Due to her other co morbid conditions and medications, will hod off on pharmacological therapy. Aggressive life style modifications discussed. Patient advised to call the office if she notes persistently elevated Bp above 140. Follow up in 3 months. 2. [facility] health care Z00.00 Plan Mammogram ordered. Will follow. This note was generated with [employer] software. It may contain incorrect words, spelling, and punctuation that were not noted in checking the note before signing. Orders Orders: Plan Detail Follow Up 3 Months Coding Level of Care Code Off vis,est,level 3 Diagnoses Hypertension I10 Preventative health care Z00.00 11/05/17 1814 <Electronically signed by Yoanna Hull MD> Date Yoanna Hull MD Cosigner Signature: Date (if applicable) CC: CBC W/DIFF, AUTOMATED Collected: 10/21/2017 Status: F Source: [place] 12:44 PM [facility] Order Comment: CBCD,CMP FOR RODNEY VITD FOR SANDEEANDRÉSLeah CBCD,T3F,T4F,CMP,TSH,A1C,LIPID FOR RAGARCHANAUNASEJALAN TYPE CODE TESTS RESULT OUT OF RANGE REFERENCE UNITS LAB L100.1000 4.4-11.0 K/mm3 Normal WBC 8.9 LAB L100.1200 4.2-5.4 M/mm3 Normal RBC 4.32 LAB L100.1300 12.0-15.0 g/dl Normal HGB 13.4 LAB L100.1400 37-47 % Normal HCT 41.2 LAB L100.1500 81-99 fL Normal MCV 95.4 LAB L100.1600 27.0-32.0 pg Normal MCH 31.0 LAB L100.1700 32-36 g/gl Normal MCHC 32.5 LAB L100.1810 11.6-14.6 % Normal RDW CV 13.3 LAB L100.1820 35.1-43.9 fl High RDW SD 45.1 LAB L100.1900 150-450 K/mm3 Normal PLT 384 LAB L100.2000 6.2-12.0 fl Normal MPV 9.9 LAB L100.2100 47-70 % Normal NEUT% 50.6 LAB L100.2200 19-41 % High LY% 41.7 LAB L100.2300 0-10 % Normal MONO% 5.2 LAB L100.2400 0-5 % Normal EO% 2.0 LAB L100.2500 0-1 % Normal BASO% 0.3 LAB L100.2550 0.0-0.9 % Normal IM GRAN % 0.200 Result Comment: IG% - Immature Granulocytes (promyelocytes, myelocytes and metamyelocytes) > 1% indicates that a LEFT SHIFT is Present. LAB L100.2620 2.0-7.7 X10 3/uL Normal Absolute Neut 4.5 LAB L100.2720 0.83-4.51 X10 3/ul Normal Absolute Lymph 3.69 Performed By: #### L100.0100 #### [facility] [address]. [place], [place], [address] HEMOGLOBIN A1C Collected: 10/21/2017 Status: F Source: [place] 12:44 PM [facility] Order Comment: CBCD,CMP FOR RAILANKI VITD FOR DARRYLE CBCD,T3F,T4F,CMP,TSH,A1C,LIPID FOR RAGHNUNATHAN TYPE CODE TESTS RESULT OUT OF RANGE REFERENCE UNITS LAB L501.9985 4.2-6.3 % Normal HGB A1C 6.0 Performed By: #### L501.9985 #### [facility] [address]. [place], [place], [address] COMPREHENSIVE METABOLIC Collected: 10/21/2017 Status: F Source: [place] 12:44 PM [facility] Order Comment: CBCD,CMP FOR RODNEY VITD FOR KURTIS CBCD,T3F,T4F,CMP,TSH,A1C,LIPID FOR JESSEE TYPE CODE TESTS RESULT OUT OF RANGE REFERENCE UNITS LAB L501.0100 74-106 mg/dL Normal GLU 85 Result Comment: Please note revised GLUCOSE reference range effective 2017. LAB L501.1000 7-18 mg/dL High BUN 20 LAB L501.1100 0.55-1.02 mg/dL Normal CREAT,SERUM 0.89 Result Comment: The validity of the calculated GFR AND GFRAA in patients over 70 years has not been determined. Clinical correlation is essential. LAB L501.1110 >60 mL/min Normal EST GFR 68 Result Comment: Non- GFR Calc LAB L501.1115 >60 mL/min Normal EST GFR - AA 82 Result Comment: GFR Calc LAB L501.1300 10-20 RATIO High BUN/CRE 22.6 LAB L501.1500 6.4-8.2 g/dL T Normal PROT 7.7 LAB L501.1800 3.2-5.0 g/dL Normal ALB 3.8 LAB L501.1950 2.2-4.2 g/dL Normal GLOB 3.9 LAB L501.2000 0.9-2.4 RATIO Normal A/G 1.0 LAB L501.2200 8.5-10.1 mg/dL CA Normal 9.1 LAB L501.4100 15-37 U/L Normal AST 20 LAB L501.4305 45-117 U/L High ALK P 118 LAB L501.4405 13-56 U/L Normal ALT 32 Result Comment: Please note revised ALT reference range effective 2017. LAB L501.4600 0.20-1.00 mg/dL Normal T BILI 0.30 LAB L501.5300 136-145 mmol/L Normal NA 141 LAB L501.5600 3.5-5.1 mmol/L Normal K 4.0 LAB L501.5900 98-107 mmol/L Normal CL 105 LAB L501.6100 21.0-32.0 mmol/L Normal CO2 29.0 LAB L501.6200 5-15 Normal GAP 7 Performed By: #### L500.4050, L500.4100, L501.12654, L501.9520, L506.0400 #### [facility] [address] [place], [place], [id number] LIPID PROFILE Collected: 10/21/2017 Status: F Source: [place] 12:44 PM [facility] Order Comment: CBCD,CMP FOR VELLANKI VITD FOR OLEGHE CBCD,T3F,T4F,CMP,TSH,A1C,LIPID FOR RAGHNUNATHAN TYPE CODE TESTS RESULT OUT OF RANGE REFERENCE UNITS LAB L501.4900 200 mg/dL Normal CHOL 193 Result Comment: <200 mg/dL Desirable 200-240 mg/dL Borderline >240 mg/dL High Risk LAB L501.5000 mg/dL High TRIG 237 Result Comment: The drugs N-Acetylcysteine and Metamizole may falsely depress this assay. Serum Triglycerides Reference Interval Normal <150 mg/dL Borderline high 150 - 199 mg/dL High 200 - 499 mg/dL Very High > or = 500 mg/dL LAB L501.6400 mg/dL Normal HDL 47 Result Comment: The drugs N-Acetylcysteine and Metamizole may falsely depress this assay. Reference Range HDL <40 mg/dL Low HDL Cholesterol HDL >or= 60 mg/dL High HDL Cholesterol LAB L501.6500 0-130 mg/dL Normal LDL 99 LAB L501.6600 5-40 mg/dL High VLDL 47 Performed By: #### L500.4050, L500.4100, L501.82111, L501.9520, L506.0400 #### [facility] [address] [place], [place], [address] FREE T3 Collected: 10/21/2017 Status: F Source: [place] 12:44 PM [facility] Order Comment: CBCD,CMP FOR VELLANKI VITD FOR OLEGHE CBCD,T3F,T4F,CMP,TSH,A1C,LIPID FOR RAGHNUNATHAN TYPE CODE TESTS RESULT OUT OF RANGE REFERENCE UNITS LAB L501.23996 2.18-3.98 pg/mL Normal FREE T3 2.8 Performed By: #### L500.4050, L500.4100, L501.19006, L501.9520, L506.0400 #### [facility] [address] [place], [address] THYROID STIM HORMONE Collected: 10/21/2017 Status: F Source: [place] (TSH) 12:44 PM [facility] Order Comment: CBCD,CMP FOR VELLANKI VITD FOR OLEGHE CBCD,T3F,T4F,CMP,TSH,A1C,LIPID FOR RAGHNUNATHAN TYPE CODE TESTS RESULT OUT OF RANGE REFERENCE UNITS LAB L501.9520 0.358-3.74 uIU/mL Normal TSH 1.48 Performed By: #### L500.4050, L500.4100, L501.17984, L501.9520, L506.0400 #### [facility] [address] [place], [address] T4 FREE DIRECT Collected: 10/21/2017 Status: F Source: [place] 12:44 PM [facility] Order Comment: CBCD,CMP FOR VELLANKI VITD FOR OLEGHE CBCD,T3F,T4F,CMP,TSH,A1C,LIPID FOR RAGHNUNATHAN TYPE CODE TESTS RESULT OUT OF RANGE REFERENCE UNITS LAB L506.0400 0.76-1.46 ng/dL Normal T4 FREE 1.00 DIRECT Performed By: #### L500.4050, L500.4100, L501.10184, L501.9520, L506.0400 #### [facility] [address] [place], [address] VITAMIN D,25 HYDROXY Collected: 10/21/2017 Status: F Source: [place] 12:43 PM [facility] Order Comment: CBCD,CMP FOR VELLANKI VITD FOR OLEGHE CBCD,T3F,T4F,CMP,TSH,A1C,LIPID FOR RAGHNUNATHAN TYPE CODE TESTS RESULT OUT OF RANGE REFERENCE UNITS LAB L506.1000 29.95-100.01 ng/mL Normal Vitamin D 54.0 25-OH Result Comment: Vitamin D 25(OH) Status Range Deficiency <20 ng/mL (50nmol/L) Insuffciency 20 - 30 ng/mL (50 - 75 nmol/L) Sufficiency 30 - 100 ng/mL (75 - 250 nmol/L) Toxicity >100 ng/mL (>250 nmol/L) Performed By: #### L506.1000 #### [facility] [address] [place], [address] PULMONARY VISIT REPORT Observed: 10/08/2017 Status: F Source: [place] 6:21 AM [facility] [address] [place] [address] OFFICE VISIT Date of Service: 10/07/17 MR#: [id number] Acct: [id number] Name: MITCHELL MENON Rep #: [id number] : 1950 Provider: Kvng Nunez MD Age/Sex: 66/F Location: [facility] [place].[facility] Status: Signed Assessment AND Plan 1. Dyspnea on exertion R06.09 Plan Unclear etiology at this time. Patient does have multiple possible etiologies including asthma, pulmonary hypertension or possible pulmonary fibrosis. Patient has been treated with inhaled corticosteroids in the past. Given significant time between evaluations, will evaluate with a complete PFT and walking oximetry. No new medications will be started at this time. If patient does have significant decrease in DLCO and lung volumes, chest imaging may be indicated for evaluation of methotrexate toxicity or pulmonary fibrosis related to rheumatoid arthritis. Obtain complete PFT and walking oximetry prior to next visit. Orders Orders: 2. MARCELLA (obstructive sleep apnea) G47.33 Plan Patient likely would benefit from a repeat titration study of obstructive sleep apnea. Patient is reporting fatigue during the day and has been changing her pressure settings independently. Some concern given patient did have some central apneas noted on previous polysomnogram as she may be getting pressure associated central apneas. Patient has requested that we address her shortness of breath first prior to any repeat sleep study. Did encourage overall weight loss, but patient has no definite plan in place. Repeat sleep study in the future. 3. Adrenal insufficiency E27.40 Plan Patient reports a history of adrenal insufficiency, but exact etiology is unclear at this time. Patient has been on prednisone therapy for a number of years and has had multiple complications associated with this therapy. Would defer to endocrinology, but patient would likely benefit from a DEXA scan. Patient does have cataracts and dermal atrophy noted. Stressed to the patient that abrupt discontinuation of prednisone therapy could lead to life-threatening complications. Patient will likely need to be decreased in 1 mg interval. Patient states that she will discuss this with endocrinology prior to making any changes on her own. Await endocrinology opinion Plan Detail Follow Up 3 Months (BWA) HPI changing database management specialist: Chief Complaint: Shortness of breath on exertion Details: Patient is a 66-year-old female, currently under the care of Dr. Hull, who presents to establish care secondary to shortness of breath on exertion and changing her database management specialist. Patient reports that she has been seen by Dr. Vicente Contreras in the past for obstructive sleep apnea. Patient is on CPAP every night and apparently has the ability to adjust her settings. Patient reports that she has taken her pressure settings from a CPAP of 7 to as high as 11. Patient also has been given a prescription for Provigil in the past, but states she only uses this when I have to take long car rides. Patient does report some daytime fatigue, but overall feels that her CPAP is still effective at the current dosing. Patient does admit to a 30+ pound weight gain since her last titration in 2012. Patient denies any issues with narcolepsy reported in the past. Patient does report that she has been seen by Dr. Field in the past secondary to shortness of breath on exertion. Patient does use Pulmicort, Zainab and Nasacort seasonally, but has noted increased dyspnea on exertion. Patient typically states that the falls the worst time, but she has not used any of these medications since the fall 2015. Patient does report some overall worsening recently and is unclear if this is secondary to weight gain. Patient has struggled with weight gain secondary to a diagnosis of adrenal insufficiency. Patient is currently on 5 mg of prednisone. Patient does routinely follow with an agricultural chemist and has concerns of continued redness on use. Patient reports that she tried to go to every other day and experienced significant symptoms and was unable to continue. Patient is also reported new hot flashes over the last 2- 4 months. Patient also reports my thyroid is all out of whack, but I do not know any numbers. Documentation reviewed 10 pages of documentation from [employer] and canceling machine operator were reviewed. This does show the patient has obstructive sleep apnea with an AHI of 10 that was titrated to 7 cm of water. Weight at that time was 236 pounds. No documentation from Dr. Field's office is available. Patient does reportedly have symptoms of allergic rhinitis secondary to confirmed allergies to tree and mold spores. Intake Vital Signs10/07/17 Height 5 ft 5 in 10/07/17 Weight: 114.305 kg Intake Visit Reasons: changing database management specialist Chief Complaint: follow-up visit Allergies phenytoin sodium [From Dilantin] Allergy (Mild, Verified 10/07/17 14:41) Rash phenytoin sodium extended [From Dilantin] Allergy (Mild, Verified 10/07/17 14:41) Rash ketorolac tromethamine [From Toradol] Allergy (Verified 01/24/17 10:56) Anaphylaxis morphine Adverse Reaction (Severe, Verified 10/07/17 14:41) Other Honey Dew Melon Adverse Reaction (Uncoded 01/24/17 10:56) Food Allergy Medications Ergocalciferol [Vitamin D] 50,000 unit PO ROSAS 11/02/15 [History Confirmed 10/07/17] Melatonin 10 mg PO QHS 11/02/15 [History Confirmed 10/07/17] Amitriptyline HCl [Elavil] 25 mg PO QHS 02/23/16 [History Confirmed 10/07/17] Levothyroxine [Synthroid] 50 mcg PO DAILY 05/01/16 [History Confirmed 10/07/17] Dulaglutide [Trulicity] 1.5 mg SQ MO 09/12/16 [History Confirmed 10/07/17] Folic Acid 0.8 mg PO BID 09/12/16 [History Confirmed 10/07/17] Methotrexate 12.5 mg PO WE 09/12/16 [History Confirmed 10/07/17] Magnesium 1 tab PO DAILY 11/06/16 [History Confirmed 10/07/17] aspirin 81 mg tablet,delayed release 81 mg PO QDAY 07/23/17 [History Confirmed 10/07/17] celecoxib 200 mg capsule 200 mg PO QDAY 07/23/17 [History Confirmed 10/07/17] cholecalciferol (vitamin D3) 1,000 unit tablet 1,000 unit PO DAILY tab 07/23/17 [History Confirmed 10/07/17] leucovorin calcium 25 mg tablet 25 mg PO ONCE 07/23/17 [History Confirmed 10/07/17] multivitamin capsule 1 cap PO QAM 07/23/17 [History Confirmed 10/07/17] omeprazole 10 mg capsule,delayed release 10 mg PO DAILY PRN 09/10/17 [History Confirmed 10/07/17] prednisone 5 mg tablet 5 mg PO DAILY 09/10/17 [History Confirmed 10/07/17] triamterene 37.5 mg-hydrochlorothiazide 25 mg capsule 1 cap PO QAM PRN 09/10/17 [History Confirmed 10/07/17] PFSH Medical History Arthritis (Chronic) Basal cell carcinoma (Acute) Cellulitis of right lower leg (Acute) Hypokalemia (Acute) Low magnesium level (Acute) Pneumonia (Acute) Vitamin D deficiency (Acute) Asthma (Chronic) Borderline hypertension (Chronic) Bronchitis (Chronic) CSA (central sleep apnea) (Chronic) Hypersomnia (Chronic) MGUS (monoclonal gammopathy of unknown significance) (Chronic) Osteoarthritis (Chronic) Osteopenia (Chronic) Rheumatoid arthritis (Chronic) Thyroid disorder (Chronic) Type 1 diabetes mellitus (Chronic) Surgical History D AND C (Resolved) History of 2 sections (Resolved) History of carpal tunnel surgery (Resolved) History of cholecystectomy (Resolved) History of hysterectomy (Resolved) S/P bunionectomy (Resolved) S/P excision of Molina's neuroma (Resolved) bilateral knee surgery (Resolved) history of T AND A (Resolved) Family History Father Cancer father passed of lung CA at 55 Mother Osteoarthritis COPD (chronic obstructive pulmonary disease) Dementia Brother Myocardial infarction, Onset Age: 49 Aunt Multiple sclerosis Sister Colon cancer Social History Smoking Status: Never smoker alcohol intake: current alcohol intake frequency: a few times a month Alcohol type: wine substance use type: does not use what type of physical activity do you participate in: swimming, bicycling, walking frequency: 3-4 times per week Review of Systems Const CONSTITUTIONAL: Positive fatigue; negative anorexia, body ache, chills, daytime sleepiness, fever(s), night sweats, oral thrush, stops breathing during sleep, weight loss, sleeping in chair, weight loss, weight gain, frequent colds, seasonal allergies, other, headache(s) or orthopnea EETM Ear Nose Throat Mouth: Positive hearing normal; negative hoarseness, dry mouth in morning, change in vision, itchy eyes, eye pain, swallowing Difficulty, ear pain, nose bleed, headache(s), mouth pain, nasal congestion, nasal discharge, post nasal drip, sinus pain, sinus pressure, sore throat, other or hard of hearing Cardio Cardiovascular: Negative chest pain, chest pain at rest, chest pain with activity, irregular heart rhythm, edema, shortness of breath when lying down, palpitations, murmur or other Resp Respiratory: Positive as per HPI, shortness of breath and inhalers; negative pain with cough, wheezing, chest congestion, cough, chest tightness, pain on inspiration, increase use of rescue inhalers, snoring, apnea or other Gastro Gastrointestional: Negative bloody stools, change in appetite, difficulty swallowing, reflux, hematemesis, melena stool, loose stool, constipation or other Genitourinary: Negative blood in urine, nocturia, pain with urination or other Musc Musculoskeletal: Negative body pain, back pain, neck pain or other Skin/Breast Skin/Breast: Negative dry skin, itching, rash, unusual bruising, breast lump or other Neuro Neurological: Negative restless legs, confusion, weakness or other Psych Psychocological: Negative abnormal sleep pattern, anxiety, thoughts of hurting self/others, hopelessness or other Lymph Lymphatic: Negative easy bleeding, easy bruising, swollen lymph nodes or other Exam Const Constitutional: Positive conversant, cooperative, well developed, well nourished, good hygiene, obese and appears older than stated age Head Head: Positive normocephalic and atraumatic; negative cyanosis of lips/distal nose, microcephalic, macrocephalic, frontal sinus tenderness or maxillary sinus tenderness Eyes Eye: Positive clear conjunctiva and cataract present; negative nystagmus or scleral abnormality Ears Ear: Positive hearing normal and external ears normal; negative hard of hearing Nose Nose: Positive external nose normal, septum normal and no nasal discharge; negative epistaxis or nasal polyp Mouth Mouth: Positive oral mucosae normal, no lesions and crowded posterior oropharynx; negative post nasal drip or oral thrush present Mallampati Score: IV: Mallampati Score Neck Neck: Positive normal visual inspection, thick neck, full ROM, trachea midline and female neck greater than 37 cm (15 in); negative lymphadenopathy or JVD Chest Wall Chest: Positive normal inspection of the chest; negative increased A/P diameter, symmetric chest movement, crepitus or tenderness Resp lung sounds: Positive clear to auscultation, good air exchange, diminished diminished: Positive global and prolonged expiratory time; negative wheezes, rhonchi, rales, wheeze present on forced exhalation, dullness to percussion or use of accessory muscles Cardio Cardiac: Positive regular rate, regular rhythm, S1 normal and S2 normal; negative murmur, rub or gallop GI GI: Positive obese, normal to inspection and normal bowel sounds; negative distended or ascites Genitourinary: Positive deferred Musc Musculoskeletal: Positive steady gait and ROM normal; negative using an assistive device for ambulation, kyphosis, scoliosis or rheumatoid nodules Skin Pulmonary Skin Exam: Positive intact and dermal atrophy; negative rash, lesion, ulcers, erythema or scaly Pulses Pulse: Yes radial pulses present, Yes pulses normal x4 extremities Extremities Extremities: Yes capillary refill normal, No clubbing, No cyanosis, Yes edema Location: lower extremity location: Bilateral leg swelling: pitting pitting: +1 Neuro Neurologic: Yes conversant, Yes no focal neuro deficits, Yes cooperative, Yes normal cognition, Yes normal coordination, Yes normal concentration, Yes understands questions Lymph Lymphatic: No lymphadenopathy, No tenderness, No cervical adenopathy, No axillary adenopathy Psych Appearance: Positive grossly normal, eye contact and well kempt Mental Status: Positive mental status grossly normal Mood: Positive congruent mood Affect: Positive normal affect Coding Level of Care Code Off vis,new,level 4 Diagnoses Dyspnea on exertion R06.09 Dyspnea type: dyspnea on exertion MARCELLA (obstructive sleep apnea) G47.33 Adrenal insufficiency E27.40 10/08/17 0621 <Electronically signed by Kvng Nunez MD> Date Kvng Nunez MD Cosigner Signature: Date (if applicable) CC: Yoanna Hull MD INTERNAL MEDICINE Observed: 09/12/2017 Status: F Source: [facility] OFFICE VISIT 4:58 PM [facility] [address] [place] [address] OFFICE VISIT Date of Service: 09/10/17 MR#: [id number] Acct: [id number] Name: MITCHELL MENON Rep #: [id number] : 1950 Provider: Yoanna Hull MD Age/Sex: 66/F Location: [facility] Status: Signed Intake Vital Signs09/10/17 Height 5 ft 5 in Intake Visit Reasons: follow up thyroid Chief Complaint: follow-up visit Is patient in pain?: No Allergies phenytoin sodium extended [From Dilantin] Allergy (Severe, Verified 01/24/17 10:56) Rash ketorolac tromethamine [From Toradol] Allergy (Verified 01/24/17 10:56) Anaphylaxis phenytoin sodium [From Dilantin] Allergy (Verified 01/24/17 10:56) Rash morphine Adverse Reaction (Severe, Verified 09/10/17 13:11) Other Honey Dew Melon Adverse Reaction (Uncoded 01/24/17 10:56) Food Allergy Medications Ergocalciferol [Vitamin D] 50,000 unit PO ROSAS 11/02/15 [History Confirmed 07/23/17] Melatonin 10 mg PO QHS 11/02/15 [History Confirmed 07/23/17] Amitriptyline HCl [Elavil] 25 mg PO QHS 02/23/16 [History Confirmed 07/23/17] Levothyroxine [Synthroid] 50 mcg PO DAILY 05/01/16 [History Confirmed 07/23/17] Dulaglutide [Trulicity] 1.5 mg SQ MO 09/12/16 [History Confirmed 05/05/17] Folic Acid 0.8 mg PO BID 09/12/16 [History Confirmed 07/23/17] Methotrexate 12.5 mg PO WE 09/12/16 [History Confirmed 05/05/17] Magnesium 1 tab PO DAILY 11/06/16 [History Confirmed 07/23/17] aspirin 81 mg tablet,delayed release 81 mg PO QDAY 07/23/17 [History Confirmed 07/23/17] celecoxib 200 mg capsule 200 mg PO QDAY 07/23/17 [History Confirmed 07/23/17] cholecalciferol (vitamin D3) 1,000 unit tablet 1,000 unit PO DAILY tab 07/23/17 [History Confirmed 07/23/17] leucovorin calcium 25 mg tablet 25 mg PO ONCE 07/23/17 [History Confirmed 07/23/17] multivitamin capsule 1 cap PO QAM 07/23/17 [History Confirmed 07/23/17] omeprazole 10 mg capsule,delayed release 10 mg PO DAILY PRN 09/10/17 [History Confirmed 09/10/17] prednisone 5 mg tablet 5 mg PO DAILY 09/10/17 [History Confirmed 09/10/17] triamterene 37.5 mg-hydrochlorothiazide 25 mg capsule 1 cap PO QAM PRN 09/10/17 [History Confirmed 09/10/17] PFSH Medical History Arthritis (Chronic) Cellulitis of right lower leg (Acute) Hypokalemia (Acute) Low magnesium level (Acute) Vitamin D deficiency (Acute) Hypersomnia (Chronic) MGUS (monoclonal gammopathy of unknown significance) (Chronic) Surgical History History of 2 sections (Acute) History of carpal tunnel surgery (Acute) History of cholecystectomy (Acute) History of hysterectomy (Acute) bilateral knee surgery (Acute) history of T AND A (Acute) Family History Father Cancer father passed of lung CA at 55 Mother Osteoarthritis COPD (chronic obstructive pulmonary disease) Dementia Brother Myocardial infarction, Onset Age: 49 Aunt Multiple sclerosis Sister Colon cancer Social History Smoking Status: Never smoker alcohol intake: current alcohol intake frequency: a few times a month Alcohol type: wine substance use type: does not use what type of physical activity do you participate in: swimming, bicycling, walking frequency: 3-4 times per week HPI follow up thyroid: Chief Complaint: follow-up visit Details: MITCHELL MENON, is a 66yo F who presents to the office today for follow up. She has acute complaints at this time. She follow up closely with her agricultural chemist and carpet journeyman and has been stable in that rivers. She also follows up with the oncology due to her history of MGUS. Blood pressure is noted to be elevated in the office today at 145/81mmHg. She currently has Triamterene/HCTZ on her medication list but states that she only takes it when she feels she needs it. She was diagnosed with hypertension in the past however she states that she discontinued it due when she had episodes of low blood pressure. She currently does not check her blood pressure at home. She has a history of osteopenia and is currently on Vitamin D and Calcium supplements daily. Last Vitamin D check in february was within normal. ROS Const Constitutional: No weight change, body ache, chills, fatigue, sleep problems, fever(s), change in appetite, snoring, weakness, frequent falls, headache(s) or excessive sweating Eyes Eyes: No change in vision, eye pain, light sensitivity or blurry vision ENT ENT: No headache(s), abnormal hearing, ear pain, tinnitus, nasal congestion, sore throat or neck pain Resp Respiratory: No snoring, cough, shortness of breath or wheezing Cardio Cardiology: No excessive sweating, chest pain at rest, chest pain with exertion, shortness of breath, dyspnea on exertion, palpitations, orthopnea or lightheadedness Gastro GI: No abdominal pain, change in bowel habits, constipation, diarrhea, vomiting, nausea/dyspepsia or cramping Musc Musculoskeletal: No neck pain, abnormal walking, joint pain, back pain, limited range of motion, numbness or tingling Skin Skin: No redness, dry skin, itching, lesions, wounds or rash Neuro Neurology: No weakness, frequent falls, headache(s), abnormal hearing, abnormal walking, numbness, tingling, abnormal speech or dizziness Psych Psychiatric: No change in appetite, No anxiety, No depression, No Thoughts of harming yourself/Others Endo Endocrine: No fatigue, excessive sweating, cold intolerance, increased thirst/drinking, heat intolerance, flushing or increased hunger Aller/Imm Allergy/Immunologic: No wheezing, itchy eyes, hives or seasonal allergy symptoms Manolo/Lymp Hematologic/Lymphatic: No easy bleeding, easy bruising or enlarged lymph nodes Exam Const General: cooperative, no acute distress, well developed Orientation: alert, awake, oriented x3 [facility] Head: normal to inspection, normocephalic, atraumatic Ears: hearing grossly normal bilaterally Resp Effort AND Inspection: normal respiratory effort, able to speak in complete sentences Auscultation: Bilateral: Clear to Auscultation Cardio Rate: regular rate Rhythm: regular rhythm Heart Sounds: S1 normal, S2 normal GI Inspection: obesity Palpation: soft, no hepatosplenomegaly Neuro General: alert, awake, oriented x3, CN's II-XI intact bilaterally Extrem General: no clubbing, cyanosis or edema Psych Appearance: grossly normal Mental Status: mental status grossly normal Affect: normal affect Assessment AND Plan 1. Elevated blood pressure reading in office without diagnosis of hypertension R03.0 Plan Prior history of hypertension, currently not on any medication. Patient reports a history of white coat syndrome . She does not routinely check her blood pressure at home. Advised to check it every other day and call the office with log if persistently elevated over 140 systolic. Life style modifications. Follow up in 2 months. 2. Osteopenia M85.80 Plan Currently on calcium and Vitamin D daily. History of Vitamin D deficiency. Last check however was within normal. Will get a Vitamin D level today. Continue current management. This note was generated with [employer] dictation software. It may contain incorrect words, spelling, and punctuation that were not noted in checking the note before signing. Orders Orders: Plan Detail Follow Up 2 Months Coding Level of Care Code Off vis,est,level 3 Diagnoses Elevated blood pressure reading in office without diagnosis of hypertension R03.0 Osteopenia M85.80 09/12/17 6042 <Electronically signed by Yoanna Hull MD> Date Yoanna Hull MD Cosigner Signature: Date (if applicable) CC: ALLERGIES ALLERGIES DATE TYPE / CODE NAME / CODE REACTION SEVERITY SOURCE Drug phenytoin Rash [place] 8 Allergy/097924077( sodium Community SN[facility]) extended/F0000 Hospital 85057(RXNORM) Repository Drug phenytoin Rash [place] Allergy/126444415( sodium/U263169 Community SNOM[facility]) 619(RXNO) Hospital Repository Drug ketorolac Anaphylaxis Unknown [place] 8 Allergy/575809831( tromethamine/F Community SNOMED CT) 799381923([facility]) Repository Drug morphine/F0060 Other [place] 8 Allergy/875509914( 64540(RXNORM) [facility] SNOMED [facility]) Hospital Repository Miscellaneous Honey Dew Food Allergy Unknown Alex 8 Allergy/448936996( Melon [facility] SNOMED CT) Hospital Repository ENCOUNTERS ENCOUNTERS ADMIT/DISCHARGE ACCOUNT ADMITTING ENCOUNTER LOCATION SOURCE NUMBER CLASS 09/01/2018/ [id number] Ambulatory BMSBuilding:B [place] 9 8 [place] Hospital Repository 08/26/2018 [id number] Ambulatory [place] 7 [facility] Hospital ing:MTLAB Repository 08/07/2018/ [id number] Ambulatory BMSBuilding:B [place] 8 1 [place].[facility] Repository 08/05/2018 [id number] Ambulatory [place] 3 [facility] Hospital ing:LAB.FUTUR Repository E 07/29/2018 [id number] Ambulatory [place] 3 [facility] Hospital ing:SL Repository 07/14/2018/ [id number] Ambulatory BMSBuilding:B [place] 8 0 MS.[facility] Hospital Repository 06/25/2018 [id number] Ambulatory [place] 5 [facility] Hospital ing:MTLAB Repository 06/01/2018/ [id number] Ambulatory BMSBuilding:B [place] 8 7 [facility] Repository 05/07/2018 [id number] Ambulatory Alex Alex 2 [facility] Hospital ing:MRI Repository 04/24/2018 [id number] Ambulatory [place] 6 [facility] Hospital ing:LAB.FUTUR Repository E 03/30/2018/ [id number] Ambulatory BMSBuilding:B [place] 8 2 [facility] Repository 03/30/2018 [id number] Ambulatory [place] 7 [facility] Hospital ing:LAB.FUTUR Repository E 03/24/2018 [id number] Ambulatory [place] Alex 5 [facility] Hospital ing:LAB Repository 02/28/2018/ [id number] Ambulatory BMSBuilding:B [place] 8 6 MS.NOW [facility] Hospital Repository 02/23/2018/ [id number] Ambulatory BMSBuilding:B [place] 8 4 [place].[facility] Hospital Repository 02/05/2018 [id number] Ambulatory [place] 7 [facility] Repository 02/05/2018 [id number] Ambulatory BMSBuilding:W [place] 0 [facility] Hospital Repository 02/03/2018/ [id number] Ambulatory BMSBuilding:B [place] 8 3 [facility] Hospital Repository 01/30/2018 [id number] Ambulatory [place] 2 [facility] ing[facility]OPBI Repository 01/26/2018/ [id number] Ambulatory BMSBuilding:B [place] 8 6 MS.[facility] Hospital Repository 01/19/2018 [id number] Ambulatory BMSBuilding:W [place] 3 [facility] Hospital Repository 01/16/2018 [id number] Ambulatory [place] 7 [facility] Hospital ing:LAB Repository 01/15/2018 [id number] Ambulatory [place] [facility] 1 [facility] ing[facility]PSN Repository 01/02/2018 [id number] Ambulatory BMSBuilding:W [place] 3 [facility] Repository 01/01/2018 [id number] Ambulatory [place] 2 [facility] ing:PSN Repository 12/01/2017 [id number] Ambulatory [place] 3 [facility] ing:OMD Repository 12/01/2017 [id number] Ambulatory BMSBuilding:B Alex 8 MS.CF.[facility] Hospital Repository 11/24/2017/ [id number] Ambulatory BMSBuilding:B [place] 8 8 MS.[facility] Hospital Repository 11/07/2017 [id number] Ambulatory BMSBuilding:B [place] 9 [facility] Repository 11/05/2017/ [id number] Ambulatory BMSBuilding:B [place] 8 1 [facility] Repository 10/21/2017 [id number] Ambulatory [place] 7 [facility] Hospital ing:LAB Repository 10/07/2017/ [id number] Ambulatory BMSBuilding:B [place] 8 2 MS.[facility] Hospital Repository 09/10/2017/01/31 [id number] Ambulatory BMSBuilding:B [place] 8 9 [place].[facility] Repository PAYERS PAYERS ENCOUNTER GUARANTOR PAYER SUBSCRIBER SOURCE 09/01/2018 MITCHELL Carrillo Primary MITCHELL Johnson [id number] Insurance:MEDICARE [place]: Community [facility]JIT PART [id number]: Repository , [place] [address]Rvb: [id number] Date:2018-06-01 () 09/01/2018 Secondary NOT GIVENUNK Alex Insurance:SELF PAY [facility] Number: Effective Repository Date:2018-08-25 08/26/2018 MITCHELL Carrillo Primary MITCHELL Johnson [id number] Insurance:MEDICARE [place]OB: Community [facility]JIT PART [facility] [id number] Glen [facility] Number: Repository , [place] [address]Hsh: [id number] Date:2018-08-05 () 08/26/2018 Secondary NOT GIVENUNK [place] Insurance:SELF PAY [facility] Number: Effective Repository Date:2018-08-05 08/07/2018 MITCHELL Carrillo Primary MITCHELL Johnson [id number] Insurance:MEDICARE [place]OB: Community [facility]JIT PART [facility] [id number] Glen [facility]al [facility] Number: Repository , [place] [address]Lvz: [id number] Date:2018-07-30 () 08/07/2018 Secondary NOT GIVENUNK [place] Insurance:SELF PAY [facility] Number: Effective Repository Date:2018-08-05 08/05/2018 MITCHELL Carrillo Primary MITCHELL Johnson [id number] Insurance:MEDICARE GARRETT PARKDOB: Community BALJIT PART [facility] [id number] Glen [facility]al [facility] Number: Repository , [place] [address]Xvj: [id number] Date:2018-07-03 () 08/05/2018 Secondary NOT GIVENUNK [place] Insurance:SELF PAY [facility] Number: Effective Repository Date:2018-07-03 07/29/2018 MITCHELL A Primary MITCHELL Johnson [id number] Insurance:MEDICARE [place]DOB: Community [facility]JIT PART [facility] [id number] Glen Behavioral Hospital Number: [facility] , [place] [address]Fyr: [id number] Date:2018-07-17 () 07/29/2018 Secondary MITCHELL Carrillo Alex Insurance:MEDICAL [place]HE[place]DOB: [facility] [id number] Hospital Number: Repository [id number] Date:7037-02-14AZ [address] [place] [address]HV: 07/29/2018 Tertiary NOT GIVENUNK [place] Insurance:SELF PAY [facility] Number: Effective Repository Date:2018-07-17 07/14/2018 MITCHELL A Primary MTICHELL Johnson [id number] Insurance:MEDICARE [place]OB: Community [facility]JIT PART [facility] [id number] [facility] Number: [place], [place] [address]Gre: [id number] Date:2018-01-26 () 07/14/2018 Secondary MITCHELL Carrillo Alex Insurance:MEDICAL ROCHESTERDOB: [facility] [id number] Hospital Number: Repository [id number] Date:1475-04-83GU [facility] [address] [place] [address]SF: 07/14/2018 Tertiary NOT GIVENUNK Alex Insurance:SELF PAY [facility] Number: Effective Repository Date:2018-07-07 06/25/2018 MITCHELL A Primary MITCHELL Johnson [id number] Insurance:MEDICARE [place]DOB: Community [facility]JIT PART [facility] [id number] Glen [facility]al [facility] Number: [facility] , [place] [address]Kal: [id number] Date:2018-06-25 (HP) 06/25/2018 Secondary MITCHELL Carrillo [place] Insurance:MEDICAL ROCHE[place]DOB: [facility] [id number] Hospital Number: Repository [id number] Date:6490-62-05WQ [address] [address]KT: 06/25/2018 Tertiary NOT GIVENUNK Alex Insurance:SELF PAY [facility] Number: Effective Repository Date:2018-06-25 06/01/2018 MITCHELL Carrillo Primary MITCHELL Johnson [id number] Insurance:MEDICARE [place]OB: Community [facility]IT PART [facility] [id number] Glen Behavioral Hospital Number: [facility] , [place] [address]Uii: [id number] Date:2018-03-30 () 06/01/2018 Secondary MITCHELL Carrillo Alex Insurance:MEDICAL ROCHE[place]DOB: [facility] [id number] Hospital Number: Repository [id number] Date:4884-45-90GB [address] [address]TK: 06/01/2018 Tertiary NOT GIVENUNK [place] Insurance:SELF PAY [facility] Number: Effective Repository Date:2018-06-01 05/07/2018 MITCHELL Carrillo Primary MITCHELL Jhonson [id number] Insurance:MEDICARE [place]DOB: Community [facility]IT PART [facility] [id number] Glen Behavioral [facility] Number: [place], [place] [address]Egt: [id number] Date:2018-05-04 () 05/07/2018 Secondary MITCHELL Carrillo Alex Insurance:MEDICAL ROCHESTERDOB: [facility] [id number] Hospital Number: Repository [id number] Date:6965-33-83VT [address] [address]PR: 05/07/2018 Tertiary NOT GIVENUNK Alex Insurance:SELF PAY [facility] Number: Effective Repository Date:2018-05-04 04/24/2018 MITCHELL Carrillo Primary MITCHELL Johnson [id number] Insurance:MEDICARE [place]DOB: Community [facility]IT [facility] [id number] Glen Behavioral Hospital Number: [facility] , [place] [address]Emi: [id number] Date:2018-03-24 (HP) 04/24/2018 Secondary MITCHELL Johnson Insurance:MEDICAL ROCHESTERDOB: [facility] [id number] Hospital Number: Repository [id number] Date:9768-94-72QD [address] [address]KO: 04/24/2018 Tertiary NOT GIVENUNK Alex Insurance:SELF PAY [facility] Number: Effective Repository Date:2018-03-24 03/30/2018 MITCHELL Carrillo Primary MITCHELL Johnson [id number] Insurance:MEDICARE [place]DOB: Community [facility] [id number] Glen Behavioral Hospital Number: [place], [place] [address]Tqi: [id number] Date:2018-02-23 () 03/30/2018 Secondary MITCHELL Carrillo [place] Insurance:MEDICAL ROCHE[place]DOB: [facility] [id number] Hospital Number: Repository [id number] Date:0361-44-39ZC [address] [address]HM: 03/30/2018 Tertiary NOT GIVENUNK Alex Insurance:SELF PAY [facility] Number: Effective Repository Date:2018-03-30 03/30/2018 MITCHELL Carrillo Primary MITCHELL Johnson [id number] Insurance:MEDICARE [place]DOB: Community [facility] [id number] Glen [facility]al [facility] Number: [place], [place] [address]Ogr: [id number] Date:2018-03-30 (HP) 03/30/2018 Secondary MITCHELL Johnson Insurance:MEDICAL ROCHESTERDOB: [facility] [id number] Hospital Number: Repository [id number] Date:5964-03-95US [address] [address]OT: 03/30/2018 Tertiary NOT GIVENUNK [place] Insurance:SELF PAY [facility] Number: Effective Repository Date:2018-03-30 03/24/2018 MITCHELL Carrillo Primary MITCHELL Johnson [id number] Insurance:MEDICARE [place]DOB: Community [facility]IT PART [facility] [id number] Glen Behavioral Hospital Number: [facility] , [place] [address]Rbf: [id number] Date:2018-03-24 (HP) 03/24/2018 Secondary MITCHELL Johnson Insurance:MEDICAL ROCHESTERDOB: [facility] [id number] Hospital Number: Repository [id number] Date:7183-42-66TQ [address] [place] [address]EB: 03/24/2018 Tertiary NOT GIVENUNK Alex Insurance:SELF PAY [facility] Number: Effective Repository Date:2018-03-24 02/28/2018 MITCHELL A Primary MITCHELL Jonhson [id number] Insurance:MEDICARE [place]DOB: Community [facility] [id number] Glen Behavioral Hospital Number: [facility] , [place] [address]Cyc: [id number] Date:2018-02-28 (HP) 02/28/2018 Secondary MITCHELL Carrillo [place] Insurance:MEDICAL ROCHESTERDOB: [facility] [id number] Hospital Number: Repository [id number] Date:1416-51-25WD [address] [address]VY: 02/28/2018 Tertiary NOT GIVENUNK [place] Insurance:SELF PAY [facility] Number: Effective Repository Date:2018-02-28 02/23/2018 MITCHELL A Primary MITCHELL Johnson [id number] Insurance:MEDICARE [place]DOB: Community [facility]IT [facility] [id number] Glen Behavioral Hospital Number: [facility] , [place] [address]Mcy: [id number] Date:2017-11-24 (HP) 02/23/2018 Secondary MITCHELL Carrillo [place] Insurance:MEDICAL ROCHESTERDOB: [facility] [id number] Hospital Number: Repository [id number] Date:4545-74-41OC [address] [place] [address]QU: 02/23/2018 Tertiary NOT GIVENUNK Alex Insurance:SELF PAY [facility] Number: Effective Repository Date:2017-12-31 02/05/2018 MITCHELL Carrillo Primary MITCHELL Johnson [id number] Insurance:MEDICARE [place]DOB: Community [facility] [id number] Glen [facility]al [facility] Number: [facility] , [place] [address]Ifu: [id number] Date:2018-01-28 () 02/05/2018 Secondary MITCHELL Carrillo Alex Insurance:MEDICAL ROCHE[place]DOB: [facility] [id number] Hospital Number: Repository [id number] Date:3282-94-76LF [address], [place] [address]GT: 02/05/2018 Tertiary NOT GIVENUNK Alex Insurance:SELF PAY [facility] Number: Effective Repository Date:2018-01-28 02/05/2018 MITCHELL Carrillo Primary MITCHELL Johnson [id number] Insurance:MEDICARE [place]DOB: Community [facility] [id number] Glen Behavioral Hospital Number: [facility] , [place] [address]Fkv: [id number] Date:2018-01-28 () 02/05/2018 Secondary MITCHELL Carrillo [place] [facility] [id number] Hospital Number: Repository [id number] Date:8470-39-02HV [address], [place] [address]PC: 02/05/2018 Tertiary NOT GIVENUNK [place] Insurance:SELF PAY [facility] Number: Effective Repository Date:2018-02-05 02/03/2018 MITCHELL Carrillo Primary MITCHELL Johnson [id number] Insurance:MEDICARE [place]DOB: Community [facility] [id number] Glen Behavioral [facility] Number: [facility] , [place] [address]Xwv: [id number] Date:2018-02-03 () 02/03/2018 Secondary MITCHELL Carrillo Alex Insurance:MEDICAL ROCHESTERDOB: [facility] [id number] Hospital Number: Repository [id number] Date:8481-37-13ZQ[address] [address]FR: 02/03/2018 Tertiary NOT GIVENUNK Alex Insurance:SELF PAY [facility] Number: Effective Repository Date:2018-02-03 01/30/2018 MITCHELL A Primary MITCHELL Johnson [id number] Insurance:MEDICARE ROCHESTERDOB: [facility] [id number] Glen Behavioral Hospital Number: [place], [place] [address]Hbq: [id number] Date:2018-01-16 () 01/30/2018 Secondary MITCHELL Johnson Insurance:MEDICAL [place]OB: [facility] [id number] Hospital Number: Repository [id number] Date:1428-43-01[address] [address]IA: 01/30/2018 Tertiary NOT GIVENUNK Alex Insurance:SELF PAY [facility] Number: Effective Repository Date:2018-01-16 01/26/2018 MITCHELL A Primary MITCHELL Johnson [id number] Insurance:MEDICARE [place]OB: [facility] [id number] Glen Behavioral Hospital Number: [place] [address]Cin: [id number] Date:2017-11-24 () 01/26/2018 Secondary MITCHELL Carrillo [place] Insurance:MEDICAL [place]HE[place]DOB: [facility] [id number] Hospital Number: Repository [id number] Date:0045-06-39SM [address] [address]DA: 01/26/2018 Tertiary NOT GIVENUNK Alex Insurance:SELF PAY [facility] Number: Effective Repository Date:2018-01-22 01/19/2018 MITCHELL A Primary MITCHELL Johnson [id number] Insurance:MEDICARE [place]DOB: [facility] [id number] Glen Behavioral [facility] Number: [place] , [place] [address]Pjx: [id number] Date:2017-10-07 () 01/19/2018 Secondary MITCHELL oJhnson Insurance:MEDICAL [place]HE[place]DOB: [facility] [id number] Hospital Number: Repository [id number] Date:1839-54-03JI [address] [place] [address]JY: 01/19/2018 Tertiary NOT GIVENUNK Alex Insurance:SELF PAY [facility] Number: Effective Repository Date:2018-01-19 01/16/2018 MITCHELL A Primary MITCHELL Johnson [id number] Insurance:MEDICARE [place]OB: [facility] [id number] Glen Behavioral Hospital Number: [facility] [place] [address]Qus: [id number] Date:2018-01-16 () 01/16/2018 Secondary MITCHELL Carrillo Conway Insurance:MEDICAL [place]DOB: [facility] [id number] Hospital Number: Repository [id number] Date:5206-27-65RV [address] [address]CM: 01/16/2018 Tertiary NOT GIVENUNK Conway Insurance:SELF PAY [facility] Number: Effective Repository Date:2018-01-16 01/15/2018 MITCHELL A Primary MITCHELL Johnson [id number] Insurance:MEDICARE [place]DOB: [facility] [id number] Glen Behavioral Hospital Number: [place] , [place] [address]Kvb: [id number] Date:2017-10-07 () 01/15/2018 Secondary MITCHELL Carrillo Conway Insurance:MEDICAL [place]HE[place]DOB: [facility] [id number] Hospital Number: Repository [id number] Date:1967-81-72RM [address], [place] [address]DS: 01/15/2018 Tertiary NOT GIVENUNK Conway Insurance:SELF PAY [facility] Number: Effective Repository Date:2017-10-07 01/02/2018 MITCHELL Carrillo Primary MITCHELL Johnson [id number] Insurance:MEDICARE [place]DOB: [facility] [id number] Glen Behavioral Hospital Number: [place], [place] [address]Ygq: [id number] Date:2017-10-07 () 01/02/2018 Secondary MITCHELL Johnson Insurance:MEDICAL [place]HE[place]DOB: [facility] [id number] Hospital Number: Repository [id number] Date:5254-03-93A[address] [address]GW: 01/02/2018 Tertiary NOT GIVENUNK Conway Insurance:SELF PAY [facility] Number: Effective Repository Date:2018-01-02 01/01/2018 MITCHELL A Primary MITCHELL Johnson [id number] Insurance:MEDICARE [place]OB: [facility] [id number] Glen Behavioral Hospital Number: [place], [place] [address]Xvs: [id number] Date:2017-10-07 (HP) 01/01/2018 Secondary MITCHELL Johnson Insurance:MEDICAL [place]HE[place]DOB: [facility] [id number] Hospital Number: Repository [id number] Date:6824-97-92[address] [address]QP: 01/01/2018 Tertiary NOT GIVENUNK Alex Insurance:SELF PAY [facility] Number: Effective Repository Date:2017-10-07 12/01/2017 MITCHELL A Primary MITCHELL Johnson [id number] Insurance:MEDICARE [place]DOB: [facility] [id number] Glen Behavioral Hospital Number: [facility] , [place] [id number]: [id number] Date:2016-10-28 (HP) 12/01/2017 Secondary MITCHELL Johnson Insurance:MEDICAL [place]HE[place]DOB: [facility] [id number] Hospital Number: Repository [id number] Date:2542-21-16Wa [address] [address]OX: 12/01/2017 Tertiary NOT GIVENUNK Alex Insurance:SELF PAY [facility] Number: Effective Repository Date:2016-10-28 12/01/2017 MITCHELL A Primary MITCHELL Johnson [id number] Insurance:MEDICARE [place]DOB: [facility] [id number] Glen Behavioral Hospital Number: [place] , [place] [address]Rxp: [id number] Date:2016-10-28 () 12/01/2017 Secondary MITCHELL Carrillo Alex Insurance:MEDICAL [place]DOB: [facility] [id number] Hospital Number: Repository [id number] Date:2758-22-83[address] [address]LF: 12/01/2017 Tertiary NOT GIVENUNK Alex Insurance:SELF PAY [facility] Number: Effective Repository Date:2017-12-01 11/24/2017 MITCHELL A Primary MITCHELL Johnson [id number] Insurance:MEDICARE [place]DOB: [facility] [id number] Glen Behavioral Hospital Number: [place], [place] [address]Ydf: [id number] Date:2017-11-24 () 11/24/2017 Secondary MITCHELL Carrillo Alex Insurance:MEDICAL [place]DOB: [facility] [id number] Hospital Number: Repository [id number] Date:9168-71-07SG [address] [address]QH: 11/24/2017 Tertiary NOT GIVENUNK Conway Insurance:SELF PAY [facility] Number: Effective Repository Date:2017-11-24 11/07/2017 MITCHELL A Primary MITCHELL N[place]olaoster [id number] Insurance:MEDICAL [place] [id number] Glen Behavioral Hospital Number: [place], [place] [address]Pps: [id number] Date:7298-83-42WJ [address] () [address], [place] [address]QV: 11/07/2017 Secondary NOT GIVENUNK Alex Insurance:SELF PAY [facility] Number: Effective Repository Date:2017-09-10 11/05/2017 MITCHELL Carrillo Primary MITCHELL Johnson [id number] Insurance[facility] [id number] Glen Behavioral Hospital Number: [place] , [place] [address]Qst: [id number] Date:1658-76-17[address] () [address], [place] [address]AQ: 11/05/2017 Secondary NOT GIVENUNK Alex Insurance:SELF PAY [facility] Number: Effective Repository Date:2017-11-05 10/21/2017 MITCHELL A Primary MITCHELL Johnson [id number] Insurance[facility] [id number] Glen Behavioral Hospital Number: [place] , [place] [address]Dme: [id number] Date:0861-92-26HL [address] () [address] [place] [address]VL: 10/21/2017 Secondary NOT GIVENUNK Alex Insurance:SELF PAY [facility] Number: Effective Repository Date:2017-10-21 10/07/2017 MITCHELL A Primary MITCHELL Johnson [id number] Insurance:MEDICAL [place]DOB: [facility] [id number] Glen Behavioral Hospital Number: [place] , [place] [address]Tst: [id number] Date:5350-03-45YE [address] () [address], [place] [address]KI: 10/07/2017 Secondary NOT GIVENUNK Conway Insurance:SELF PAY [facility] Number: Effective Repository Date:2017-07-21 09/10/2017 MITCHELL A Primary MITCHELL Johnson [id number] Insurance[facility] 4470-75-60KHIBrooke Glen Behavioral Hospital Number: [place], [place] [address]Leq: [id number] Date:6625-25-10GI [address] (AQ) [address], [place] [address]JG: 09/10/2017 Secondary NOT GIVENUNK Alex Insurance:SELF PAY [facility] Number: Effective Repository Date:2017-08-25
== END ==
PROVIDERS: Family Provider Internal Medicine; PCP Internal Medicine; Referring Provider Internal Medicine Rheumatology; Visit Provider Internal Medicine Rheumatology
DX: M06.4 Inflammatory polyarthropathy (principal); M17.0 Bilateral primary osteoarthritis of knee; M16.0 Bilateral primary osteoarthritis of hip; M79.7 Fibromyalgia; E27.9 Disorder of adrenal gland, unspecified; Z79.899 Other long term (current) drug therapy
CPT/HCPCS: 36415; 80053; 85025

== ENCOUNTER → 2018-10-05 11:59 | Outpatient (CLI) | payer MEDICARE, OTHER, SELFPAY ==
[2018-09-01 15:16] VITALS: BMI 41.4
== END ==
PROVIDERS: Family Provider Internal Medicine; PCP Internal Medicine; Referring Provider Internal Medicine Endocrinology, Diabetes & Metabolism; Visit Provider Internal Medicine Endocrinology, Diabetes & Metabolism
DX: E23.7 Disorder of pituitary gland, unspecified (principal); E78.00 Pure hypercholesterolemia, unspecified; R73.03 Prediabetes; M06.4 Inflammatory polyarthropathy; M79.7 Fibromyalgia; M17.0 Bilateral primary osteoarthritis of knee; M16.0 Bilateral primary osteoarthritis of hip; E27.9 Disorder of adrenal gland, unspecified; D47.2 Monoclonal gammopathy; M21.40 Flat foot [pes planus] (acquired), unspecified foot; E03.9 Hypothyroidism, unspecified; G47.419 Narcolepsy without cataplexy; H81.03 Meniere's disease, bilateral; M51.37 Other intervertebral disc degeneration, lumbosacral region; M47.897 Other spondylosis, lumbosacral region

== ENCOUNTER → 2018-10-06 16:28 | Outpatient (CLI) | payer MEDICARE, OTHER, SELFPAY ==
[2018-09-01 15:16] VITALS: BMI 41.4
--- NOTE | 2018-10-06 16:45 | MRI_ITS ---
STUDY: MRI RIGHT SHOULDER REASON FOR EXAM: Female, 67 years old. Pain. Osteoarthritis. TECHNIQUE: Standardized fat and water weighted pulse sequences were obtained in all 3 orthogonal planes. COMPARISON: None. FINDINGS: There is high-grade tear of the distal supraspinatus tendon, series 7 image 03/01. There is infraspinatus tendinosis with tendon thickening, but without a demonstrated tendon tear. Normal subscapularis tendon. Normal teres minor tendon. Normal supraspinatus muscle. Normal infraspinatus muscle. Normal subscapularis muscle. Normal teres minor muscle. There is moderate osteoarthritis of the glenohumeral articulation. There is a small volume joint effusion of the glenohumeral joint. There is a cortical erosion at the insertion of the infraspinatus tendon. There is spurring of the humeral head. Normal biceps labral complex. Normal intracapsular long biceps tendon. There is blunting of the labrum. Normal capsulo- ligamentous complex. Normal rotator interval. There is hypertrophic osteoarthritis of the acromioclavicular articulation with impingement upon the musculotendinous junction of the supraspinatus muscle. There is a Type II morphology (curved) acromion, with a neutral orientation. There is minimal fluid distention of the subacromial bursa, consistent with mild subacromial-subdeltoid bursitis. Normal visualized coracohumeral and coracoacromial ligaments. Normal quadrilateral space. Normal axillary space. Normal deltoid muscle. Normal trapezius muscle. MRI/Upper Ext Joint Only(Routine) IMPRESSION: High-grade rotator cuff tear of the supraspinatus tendon. 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 Electronically Signed: Raghav Mccoy MD at 23:54 EST , Service support ,
== END ==
PROVIDERS: Family Provider Internal Medicine; PCP Internal Medicine; Referring Provider Physician Assistant; Visit Provider Physician Assistant
DX: M19.011 Primary osteoarthritis, right shoulder (principal)
CPT/HCPCS: 73221

== ENCOUNTER → 2018-11-03 13:25 | Outpatient (CLI) | payer MEDICARE, OTHER, SELFPAY ==
[2018-10-13 14:13] VITALS: BMI 42.4
[2018-11-03 14:41] LABS: Absolute Lymphocyte Count 2.67 X10^3/ul (0.83-4.51); Absolute Neutrophil Count 4.1 X10^3/uL (2.0-7.7); Basophil# 0.05 X10^3/uL; Basophil% 0.7 % (0-1); Eosinophil# 0.24 X10^3/uL; Eosinophils% 3.1 % (0-5); Hematocrit 41.9 % (37-47); Hemoglobin 13.1 g/dl (12.0-15.0); Lymphocyte # 2.67 X10^3/ul (4.0); Lymphocyte % 34.9 % (19-41); Mean Corp Hgb Conc 31.3 g/gl (32-36); Mean Corpuscular Hgb 30.3 pg (27.0-32.0); Mean Platelet Vol. 10.2 fl (6.2-12.0); Monocyte# 0.53 X10^3/uL; Monocyte% 6.9 % (0-10); Neutrophil # 4.14 X10^3/uL (2.7-7.7); Neutrophil % 54.3 % (47-70); Platelet Count 344 K/mm3 (150-450); RBC Distribution Width CV 13.3 % (11.6-14.6); Red Blood Count 4.32 M/mm3 (4.2-5.4); White Blood Count 7.6 K/mm3 (4.4-11.0)
[2018-11-03 14:45] LABS: POSITIVE COUNT NO; POSITIVE DIFFERENTIAL NO; POSITIVE MORPHOLOGY NO
[2018-11-03 15:12] LABS: ALB/GLOB Ratio 1.1 RATIO (0.9-2.4); AST(SGOT) 27 U/L (15-37); Alanine Aminotransfer ALT/SGPT 53 U/L (13-56); Alkaline Phosphatase 127 U/L (45-117); Anion Gap 4 (5-15); BUN 17 mg/dL (7-18); Calcium,Total 9.2 mg/dL (8.5-10.1); Chloride 105 mmol/L (98-107); Creatinine, Serum 0.77 mg/dL (0.55-1.02); EST Glomerular Filtration Rate 79 mL/min (>60); Est Glom Filt Rate - Afr Amer 96 mL/min (>60); Globulin 3.6 g/dL (2.2-4.2); Glucose 95 mg/dL (74-106); Potassium 3.9 mmol/L (3.5-5.1); Protein, Total 7.6 g/dL (6.4-8.2); Sodium Level 139 mmol/L (136-145)
[2018-11-05 16:09] LABS: Free Kappa Light Chains 13.2 mg/L (3.3-19.4); Free Lambda Light Chains 15.7 mg/L (5.7-26.3); Immunoglobulin A 319 mg/dL (87-352); Immunoglobulin G 755 mg/dL (700-1600); Immunoglobulin M 32 mg/dL (26-217); PROEL- Albumin 3.6 g/dL (2.9-4.4); PROEL- Alpha-1 Globulin 0.3 g/dL (0.0-0.4); PROEL- Alpha-2 Globulin 0.9 g/dL (0.4-1.0); PROEL- Beta Globulin 1.5 g/dL (0.7-1.3); PROEL- Gamma Globulin 0.9 g/dL (0.4-1.8); PROEL- Globulin, Total 3.5 g/dL (2.2-3.9); PROEL- TOTAL PROTEIN 7.1 g/dL (6.0-8.5)
== END ==
PROVIDERS: Family Provider Internal Medicine; PCP Internal Medicine; Referring Provider Internal Medicine Medical Oncology; Visit Provider Internal Medicine Medical Oncology
DX: D47.2 Monoclonal gammopathy (principal)
CPT/HCPCS: 36415; 80053; 82784; 83883; 84165; 85025

== ENCOUNTER → 2018-11-23 15:59 | Outpatient (CLI) | payer MEDICARE, OTHER, SELFPAY ==
[2018-11-16 08:13] VITALS: BMI 42.4
--- NOTE | 2018-11-23 16:04 | RAD_ITS ---
STUDY: X-RAY CHEST REASON FOR EXAM: Female, 67 years old. Preop TECHNIQUE: PA and lateral COMPARISON: September 24, 2016. FINDINGS: There is discoid atelectasis or scarring at the left lung base.. There is no demonstrated pleural abnormality. Normal size heart. Normal mediastinum and alicja. Normal visualized pulmonary arteries. Mildly calcified aortic arch and descending thoracic aorta. Dorsal spine demonstrates spondylosis Normal visualized ribs, clavicles, and shoulders. There is no demonstrated abnormality of the visualized soft tissue structures of the upper abdomen. No significant changes since prior study RAD/Chest PA and Lateral IMPRESSION: Minor scarring at the left lung base. No acute disease Electronically Signed: Wu Bates MD at 21:48 EDT , Service support ,
--- NOTE | 2018-11-23 16:14 | EKG12_ITS ---
Test Reason : PRE-OP Blood Pressure : / mmHG Vent. Rate : 090 BPM Atrial Rate : 090 BPM P-R Int : 180 ms QRS Dur : 090 ms QT Int : 364 ms P-R-T Axes : 044 056 067 degrees QTc Int : 445 ms Normal sinus rhythm Normal ECG Confirmed by SWATI RENO, LICHA ([id number]), order editor CAMILLA ORDONEZ ([id number]) on 11/24/2018 9:00:16 AM Referred By: Maik Gardner Confirmed By:LICHA LONGORIA MD
== END ==
PROVIDERS: Family Provider Internal Medicine; PCP Internal Medicine; Referring Provider Orthopaedic Surgery; Visit Provider Orthopaedic Surgery
DX: Z01.810 Encounter for preprocedural cardiovascular examination (principal); Z01.811 Encounter for preprocedural respiratory examination
CPT/HCPCS: 71046; 93005

== ENCOUNTER → 2019-01-29 11:34 | Outpatient (CLI) | payer MEDICARE, OTHER, SELFPAY ==
[2019-01-27 11:25] VITALS: BMI 42.4
[2019-01-29 12:13] LABS: Absolute Lymphocyte Count 2.67 X10^3/ul (0.83-4.51); Absolute Neutrophil Count 3.6 X10^3/uL (2.0-7.7); Basophil# 0.04 X10^3/uL; Basophil% 0.6 % (0-1); Eosinophil# 0.24 X10^3/uL; Eosinophils% 3.4 % (0-5); Hematocrit 41.5 % (37-47); Hemoglobin 13.5 g/dl (12.0-15.0); Lymphocyte # 2.67 X10^3/ul (4.0); Lymphocyte % 38.4 % (19-41); Mean Corp Hgb Conc 32.5 g/gl (32-36); Mean Corpuscular Hgb 30.1 pg (27.0-32.0); Mean Corpuscular Volume 92.4 fL (81-99); Mean Platelet Vol. 9.8 fl (6.2-12.0); Monocyte# 0.38 X10^3/uL; Monocyte% 5.5 % (0-10); Neutrophil # 3.61 X10^3/uL (2.7-7.7); Neutrophil % 51.8 % (47-70); Platelet Count 362 K/mm3 (150-450); RBC Distribution Width CV 13.3 % (11.6-14.6); Red Blood Count 4.49 M/mm3 (4.2-5.4)
[2019-01-29 12:14] LABS: POSITIVE COUNT NO; POSITIVE DIFFERENTIAL NO; POSITIVE MORPHOLOGY NO
[2019-01-29 12:32] LABS: Hemoglobin A1c 6.3 % (4.2-6.3)
[2019-01-29 12:54] LABS: AST(SGOT) 28 U/L (15-37); Alanine Aminotransfer ALT/SGPT 48 U/L (13-56); Albumin, Serum 3.8 g/dL (3.2-5.0); Alkaline Phosphatase 137 U/L (45-117); Anion Gap 8 (5-15); BUN 15 mg/dL (7-18); BUN/Creat Ratio 18.5 RATIO (10-20); Calcium,Total 9.2 mg/dL (8.5-10.1); Chloride 104 mmol/L (98-107); Cholesterol 219 mg/dL (200); Creatinine, Serum 0.81 mg/dL (0.55-1.02); EST Glomerular Filtration Rate 75 mL/min (>60); Est Glom Filt Rate - Afr Amer 91 mL/min (>60); Glucose 110 mg/dL (74-106); High Density Lipoprotein 54 mg/dL; Protein, Total 7.8 g/dL (6.4-8.2); Sodium Level 140 mmol/L (136-145); T4 Free Direct 1.04 ng/dL (0.76-1.46); Thyroid Stim Hormone (TSH) 2.69 uIU/mL (0.358-3.74); Triglycerides 196 mg/dL; Very Low Density Lipoprotein 39 mg/dL (5-40)
== END ==
PROVIDERS: Family Provider Internal Medicine; PCP Internal Medicine; Referring Provider Internal Medicine Endocrinology, Diabetes & Metabolism; Visit Provider Internal Medicine Endocrinology, Diabetes & Metabolism
DX: R73.03 Prediabetes (principal); E03.9 Hypothyroidism, unspecified; E23.7 Disorder of pituitary gland, unspecified; M06.4 Inflammatory polyarthropathy; M17.0 Bilateral primary osteoarthritis of knee; M16.0 Bilateral primary osteoarthritis of hip; M79.7 Fibromyalgia; Z79.899 Other long term (current) drug therapy
CPT/HCPCS: 36415; 80053; 80061; 83036; 84439; 84443; 85025

== ENCOUNTER 2019-02-26 14:00 | Outpatient (RCR) | payer SELFPAY ==
[2019-01-27 11:25] VITALS: BMI 42.4
[2019-02-15 13:13] VITALS: BMI 42.4
--- NOTE | 2019-03-17 15:20 | HP.PT.NRP ---
HP - Discharge Summary (1) - Patient Information MITCHELL MENON was seen in my office for initial evaluation on 02/19/19. The following Plan of Care was established for this patient: - Anticipated Interventions Patient/Client Instruction: Educate patient on: Condition, Plan of Care, Risk Factors, Benefits of Fitness Program Manual Therapy Techniques to Include: Mobilization, Passive ROM, Functional dry needling, Soft tissue mobilization For the Purpose of:: To decrease pain, To decrease swelling/inflammation, To increase ROM This patient was last seen in our office 02/26/19. Pertinent comments regarding their Physical therapy will appear below: Pt. is returning for alternate Dx, pt. to be DC from PT at this point intime. At this point I will be discontinuing this patient from physical therapy. I would be happy to see this patient again in the future if found appropriate by the physician. Thank you! AGA AntonioT
== END 2019-02-26 19:00 | disposition home or self-care (01) ==
LOC: PT 14:00
PROVIDERS: Family Provider Internal Medicine; PCP Internal Medicine; Referring Provider Orthopaedic Surgery; Visit Provider Orthopaedic Surgery
DX: M25.511 Pain in right shoulder (principal); M19.011 Primary osteoarthritis, right shoulder; S46.011D Strain of muscle(s) and tendon(s) of the rotator cuff of right shoulder, subsequent encounter

== ENCOUNTER 2019-03-03 09:20 | Day surgery (SDC) | payer MEDICARE, OTHER, SELFPAY ==
--- NOTE | 2019-02-25 01:56 | HP_ITS ---
Intake Vital Signs 02/25/19 Body Mass Index (BMI) 42.4 02/25/19 Height 5 ft 5.5 in 02/25/19 Weight: 258 lb 02/25/19 Body Mass Index (BMI) 42.3 02/25/19 Blood Pressure 116/86 H 02/25/19 Blood Pressure Location Lt brachial 02/25/19 Blood Pressure Position Sitting 02/25/19 Respiratory Rate 18 Intake Visit Reasons: Cscope Consult/ABD Pain Chief Complaint: 3 month f/u Avionics Supervisor Required: No Is patient in pain?: No Allergies phenytoin sodium [From Dilantin] Allergy (Mild, Verified 02/25/19 13:07) Rash phenytoin sodium extended [From Dilantin] Allergy (Mild, Verified 02/25/19 13:07) Rash ketorolac tromethamine [From Toradol] Allergy (Verified 02/25/19 13:07) Anaphylaxis morphine Adverse Reaction (Severe, Verified 02/25/19 13:07) Other Honey Dew Melon Adverse Reaction (Uncoded 02/25/19 13:07) Food Allergy Medications Ergocalciferol [Vitamin D] 50,000 unit PO ROSAS 11/02/15 [History Confirmed 02/25/19] Melatonin 10 mg PO QHS 11/02/15 [History Confirmed 02/25/19] Levothyroxine [Synthroid] 50 mcg PO DAILY 05/01/16 [History Confirmed 02/25/19] cholecalciferol (vitamin D3) 1,000 unit tablet 1,000 unit PO DAILY tab 07/23/17 [History Confirmed 02/25/19] multivitamin capsule 1 cap PO QAM 07/23/17 [History Confirmed 02/25/19] tumeric PO BID 02/23/18 [History Confirmed 02/25/19] folic acid 0.8 mg capsule 0.8 mg PO DAILY 07/14/18 [History Confirmed 02/25/19] methotrexate sodium 2.5 mg tablet 15 mg PO WE tab 07/14/18 [History Confirmed 02/25/19] ipratropium-albuterol 0.5 mg-3 mg(2.5 mg base)/3 mL nebulization soln 3 ml INHALATION Q6H PRN #90 ml 07/15/18 [Rx Confirmed 02/25/19] hydroxychloroquine 200 mg tablet 200 mg PO BID tab 09/01/18 [History Confirmed 02/25/19] tramadol 50 mg tablet 50 mg PO TID PRN tab 09/01/18 [History Confirmed 02/25/19] celecoxib 200 mg capsule 200 mg PO QDAY #90 cap 10/06/18 [Rx Confirmed 02/25/19] amiloride 5 mg-hydrochlorothiazide 50 mg tablet 0.5 tab PO QDAY #90 tab 11/16/18 [Rx Confirmed 02/25/19] potassium chloride ER 20 mEq tablet,extended release 20 meq PO QDAY #90 tab 11/16/18 [Rx Confirmed 02/25/19] budesonide 90 mcg/actuation breath activated powder inhaler 2 inh INHALATION BID #1 ea 01/27/19 [Rx Confirmed 02/25/19] bupropion HCl 100 mg tablet 200 mg PO BID #180 tab 02/15/19 [Rx Confirmed 02/25/19] omeprazole 20 mg capsule,delayed release 20 mg PO BID #180 cap 02/15/19 [Rx Confirmed 02/25/19] [facility] Medical History Hypopituitarism (Chronic) Arthritis (Chronic) Basal cell carcinoma (Acute) Cellulitis of right lower leg (Acute) Difficulty balancing (Acute) Fatigue (Acute) Hay fever (Acute) Hypokalemia (Acute) Limb weakness (Acute) Low magnesium level (Acute) Migraines (Acute) Pneumonia (Acute) SOB (shortness of breath) (Acute) Seizures (Acute) Vitamin D deficiency (Acute) Asthma (Chronic) Borderline hypertension (Chronic) Bronchitis (Chronic) CSA (central sleep apnea) (Chronic) Hypersomnia (Chronic) MGUS (monoclonal gammopathy of unknown significance) (Chronic) Osteoarthritis (Chronic) Osteopenia (Chronic) Rheumatoid arthritis (Chronic) Thyroid disorder (Chronic) Type 1 diabetes mellitus (Chronic) History of hysterectomy (Resolved) Surgical History History of carpal tunnel release (Acute) History of orthopedic surgery (Acute) D & C (Resolved) History of 2 sections (Resolved) History of carpal tunnel surgery (Resolved) History of cholecystectomy (Resolved) S/P bunionectomy (Resolved) S/P excision of Molina's neuroma (Resolved) bilateral knee surgery (Resolved) history of T&A (Resolved) Family History Father Cancer father passed of lung CA at 55 Mother Osteoarthritis COPD (chronic obstructive pulmonary disease) Dementia Brother Myocardial infarction, Onset Age: 49 Aunt Multiple sclerosis Sister Colon cancer Aunt Celiac disease Social History (Updated 02/25/19 @ 13:56 by Mely Sevilla MD) Smoking Status: Never smoker alcohol intake: current alcohol intake frequency: a few times a month Alcohol type: wine substance use type: does not use what type of physical activity do you participate in: walking, bicycling, swimming frequency: 3-4 times per week HPI HPI HPI: MITCHELL MENON, is a 68 F who presents to the office today for HPI HPI Surgical H&P: Yes HPI: MITCHELL MENON, is a 68 F who presents to the office today for nausea vomiting, colonoscopy. Patient states that her sister was diagnosed with cancer in her 20s and had chemotherapy and she is no she did have colon polyps however she is unsure of the exact diagnosis of cancer. Patient has had multiple colonoscopies in the past. Her last one was in [address] Teresa EGD and colonoscopy EGD did show some inactive gastritis H. pylori was negative, colonoscopy only showed diverticuli were recommended follow-up colonoscopy in 6 years due to patient's possible family history of colon cancer in her sister. Patient states she has been having daily nausea as well as dry heaves. Patient also admits to having a cough after she eats denies any burning upper esophagus. But she did just start taking omeprazole 20 mg p.o. twice daily last week and states that she does not have the symptoms currently. Patient also states she did the DNA test 23 and and it showed that she had positive celiac gene; however she denies any issues really with gluten that she has noticed. Patient does have history of constipation and diarrhea in a cyclic pattern over a week. She states she will have a day of constipation then she will have harder stools multiple a day for several days and then towards the end of the week she will have diarrhea and that usually after she takes methotrexate. Patient states in 2017 she had diarrhea with a positive stool culture which she was treated for. ROS General General: Yes weight change and fatigue Gastro Gastrointestinal: No abdominal pain, Yes nausea or vomiting, Yes diarrhea, Yes constipation, No blood in stool, Yes acid reflux, No hemorrhoids, No ulcers, No gallbladder problem, No black,tarry stools Exam Const General: cooperative, comfortable, no acute distress Resp Effort & Inspection: normal respiratory effort Cardio Rate: regular rate GI Inspection: non-distended, obesity Palpation: soft, no guarding, no hernias, nontender Neuro Cranial Nerves: CN's II-XI intact bilaterally Psych Affect: normal affect Assessment & Plan Problems 1. GERD (gastroesophageal reflux disease) K21.9 2. FH: colon cancer in first degree relative <60 years old Z80.0 possible in sister in her 20s, pt knows she had polyps and had chemo, but not really sure of exact diagnosis Plan Would recommend patient keep track amount of fiber she takes in her diet recommend 25 g daily. Also gave her her a list of high-fiber foods. Also recommend patient take half of mag citrate today. Also discussed patient importance of taking omeprazole daily as prior to last week she was only taking it occasionally. I have discussed the above with the patient. I have offered the patient EGD & colonoscopy for evaluation. I have explained the risks/benefits of the procedure and described the procedure. I have discussed the risks with the patient, including but not limited to: infection, bleeding, perforation of the GI tract requiring emergency surgery, inability to complete the procedure, injury to any internal organs, complications of anesthesia, etc. - the patient understands and agrees to proceed. I have answered all the patient's questions to the patient's satisfaction and the patient has no further questions. The patient has been given instructions for the colon cleansing preparation. 2 days of clears; magnesium citrate first day, MiraLAX Dulcolax split prep second day. Mely Sevilla M.D. Pager: [phone] [facility] [address] [place] [address], [facility], [address] [place] [address] Office: [phone] Orders Orders: Colonoscopy Today EGD Today Plan Detail Follow Up We will schedule EGD and colonoscopy Coding Level of Care Code Off vis,new,level 3 Diagnoses GERD (gastroesophageal reflux disease) K21.9 FH: colon cancer in first degree relative <60 years old Z80.0 02/25/19 0486 <Electronically signed by Mely Peralta am, MD> Date _ Mely Sevilla MD I have re-examined the patient. There are no clinical changes since date of exam.
[2019-02-25 13:08] VITALS: BMI 42.4
[2019-03-03] VITALS (7 sets, daily range): BP systolic 94–127; BP diastolic 56–79; PULSE 76–82; RESP 16–18; TEMP 36.1–36.9; O2SAT 94–100; BMI 41.5
--- NOTE | 2019-03-03 10:30 | IMM_PTH ---
PATIENT: MITCHELL MENON LOC: [facility] U#:[id number] AGE/SX: 68/F ROOM: RE03/03/[address]: Dr. Mely Sevilla MD : 1950 BED: DIS: 03/03/2019 SPEC #: [id number] RECD: 03/03/19 13:46 STATUS: PITA REQ #: [id number] AYSHA: 03/03/19 10:[address]: Mely Sevilla DEPT: IMMUNOHISTOCHEMISTRY RECD BY: Janet Núñez ENTERED: 03/03/19 13:47 SP TYPE: IMMUNO OTHR DR: Dr. Yoanna Hull MD Tissues: A - Stomach, NOS B - Esophageal mucous membrane Procedures: H Pylori (initial) P53 (initial) PHYSICIAN & INSTITUTION [place] [address] SPECIMEN INFORMATION: Tissue Source: A - Antrum biopsy, B - GE junction biopsy Clinical Info: Nausea/vomiting Specimen Number: [id number] A & B CPT code: 90699 x2 METHODOLOGY: Deparaffinized sections of prefer/formalin-fixed tissue or PAP/DQ stained slides are incubated with monoclonal/polyclonal antibodies/oligonucleotide probes. Localization is made via biotin free immunoperoxidase method. Appropriate controls are performed and reacted as expected. Results on target cell population are indicated in the following table: RESULTS: ANTIBODY / CLONE RESULT Block A H Pylori (polyclonal) negative Block B P53 (DO-7) negative These tests were developed and their performance characteristics determined by [facility]. They may not have been cleared or approved by the U.S. Food and Drug Administration. The FDA has determined that such clearance or approval is not necessary. INTERPRETATION: A. Antrum biopsy: Negative for Helicobacter pylori organisms. B. Gastroesophageal junction, biopsy: No evidence of dysplasia. AM:fan 03/05/19
--- NOTE | 2019-03-03 10:30 | EGD_PTH ---
PATIENT: MITCHELL MENON LOC: EN U#:[id number] AGE/SX: 68/F ROOM: RE03/03/[address]: Dr. Mely Sevilla MD : 1950 BED: DIS: 03/03/2019 SPEC #: [id number] RECD: 03/03/19 11:27 STATUS: PITA MILANA #: [id number] AYSHA: 03/03/19 10:[address]: Mely Sevilla DEPT: SURGICAL PATHOLOGY RECD BY: Edwar Michael ENTERED: 03/03/19 12:32 SP TYPE: EGD BIOPSY OT DR: Dr. Yoanna Hull MD Tissues: A - Gastric mucous membrane B - Gastric mucous membrane C - Ascending colon D - Transverse colon Procedures: Special Stain Group II Surgery Specimen Level IV Alcian Blue/PAS (control) HEADER OPERATION: Colonoscopy, EGD ([facility]) PRE-OP DIAGNOSIS: Nausea/vomiting, possible family history colon cancer TISSUE SUBMITTED: A - Antrum biopsy for H. pylori and path, B - GE junction biopsy, C - Distal ascending polyp biopsy, D - Transverse colon polyp biopsy MICROSCOPIC DIAGNOSIS A. Gastric antrum, biopsy: Mild chronic gastritis. See comment. B. 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 Mild chronic inflammation. No evidence of dysplasia. See comment. C. Distal ascending colon polyp, biopsy: Fragments of tubular adenoma. D. Transverse colon polyp, biopsy: Tubular adenoma. AM:fan 03/04/19 COMMENT A. The results of immunohistochemistry for Helicobacter pylori will be reported separately ([id number]). B. Immunohistochemistry ([id number]) supports the above diagnosis. Alcian blue/PAS stain with matched control supports the above diagnosis. MICROSCOPIC DESCRIPTION Slides are reviewed. GROSS DESCRIPTION A - Received in fixative is one container labeled with the patient's name and designated antrum biopsy for H. pylori and path. The specimen consists of one irregular fragment of light hernandes soft tissue that measures 0.6 x 0.2 x 0.1 cm. The specimen is totally submitted in one cassette. B - Received in fixative is one container labeled with the patient's name and designated GE junction biopsy. The specimen consists of one irregular fragment of light hernandes soft tissue that measures 0.3 x 0.3 x 0.1 cm. The specimen is totally submitted in one cassette. C - Received in fixative is one container labeled with the patient's name and designated distal ascending polyp biopsy. The specimen consists of two irregular fragments of light hernandes soft tissue that in aggregate measure 0.8 x 0.3 x 0.1 cm. The specimen is totally submitted in one cassette. D - Received in fixative is one container labeled with the patient's name and designated transverse colon polyp biopsy. The specimen consists of one irregular fragment of light hernandes soft tissue that measures 0.4 x 0.2 x 0.1 cm. The specimen is totally submitted in one cassette. / SJ:rg 03/03/19 TC:3 CPT: 81361 x4, 11591
--- NOTE | 2019-03-03 11:11 | OP.ENDO_ITS ---
03/03/2019 Yoanna Hull MD [address] [place] [address] [place] [address] Re : Upper GI endoscopy procedure for [place] Dear Dr. Hull This procedure was performed on Sunday, March 03, 2019. My impressions and recommendations are as follows: Impressions : - Z-line irregular. Biopsied. - Erythematous mucosa in the antrum. Biopsied. - Normal examined duodenum. Recommendations : - Await pathology results. - Discharge patient to home. - Continue present medications. My findings are described in the full procedure note, which is enclosed. If I can be of further assistance, please feel free to contact me at Doctor phone number(s): , Work: . Sincerely, MD Mely Mccarthy MD 03/03/2019 11:11:20 AM This report has been signed electronically.
--- NOTE | 2019-03-03 11:19 | OP.ENDO_ITS ---
03/03/2019 Yoanna Hull MD [address] [place] [address] [place] [address] Re : Colonoscopy procedure for [place] Dear Dr. Hull This procedure was performed on Sunday, March 03, 2019. My impressions and recommendations are as follows: Impressions : - Two less than 5 mm polyps in the transverse colon and in the distal ascending colon, removed with a cold biopsy forceps. Resected and retrieved. Recommendations : - Discharge patient to home. - Perform a single contrast barium enema in >1 week after completing prep. - Await pathology results. - Repeat colonoscopy in 3 - 5 years for surveillance based on pathology and BE results. - Continue present medications. My findings are described in the full procedure note, which is enclosed. If I can be of further assistance, please feel free to contact me at Doctor phone number(s): , Work: . Sincerely, MD Mely Mccarthy MD 03/03/2019 11:18:38 AM This report has been signed electronically.
== END 2019-03-03 12:26 | disposition home or self-care (01) ==
LOC: EN 09:22 → AC 09:22
PROVIDERS: Family Provider Internal Medicine; PCP Internal Medicine; Referring Provider Internal Medicine; Visit Provider Surgery
PROC: 0DJD8ZZ Inspection of Lower Intestinal Tract, Via Natural or Artificial Opening Endoscopic (ICD-10-PCS; CPT 45378; principal; 2019-03-03 10:25)
DX: Z12.11 Encounter for screening for malignant neoplasm of colon (principal); D12.3 Benign neoplasm of transverse colon; D12.2 Benign neoplasm of ascending colon; K21.9 Gastro-esophageal reflux disease without esophagitis; K59.00 Constipation, unspecified; R19.7 Diarrhea, unspecified; G47.30 Sleep apnea, unspecified; F32.9 Major depressive disorder, single episode, unspecified; Z78.0 Asymptomatic menopausal state; Z79.899 Other long term (current) drug therapy; Z80.0 Family history of malignant neoplasm of digestive organs
CPT/HCPCS: 43239; 45380; 88305; 88313; 88342; J7120; J2405

== ENCOUNTER → 2019-03-09 08:32 | Outpatient (CLI) | payer MEDICARE, OTHER, SELFPAY ==
[2019-03-03 09:55] VITALS: BMI 41.5
--- NOTE | 2019-03-09 08:34 | RAD_ITS ---
STUDY: BARIUM ENEMA. REASON FOR EXAM: Female, 68 years old. Incomplete colonoscopy. History of a colonic polyps. FLUOROSCOPY TIME (if supplied): (1:23) minutes/seconds. 15 images were obtained. TECHNIQUE: A vice president tax film was obtained. Following this, contrast was introduced retrograde from the rectum. The entire colon was opacified. COMPARISON: None. FINDINGS: There is redundancy of the sigmoid colon. There is no evidence of antegrade or retrograde obstruction to the flow of contrast. No intraluminal mass lesion or filling defect is seen. 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 The patient is status post cholecystectomy. There is a grade 1 anterior listhesis of L5 on S1. RAD/Barium Enema No Air Cont IMPRESSION: Redundancy of the sigmoid colon. Electronically Signed: Billy Kaplan, at 14:49 EDT , Service support ,
== END ==
PROVIDERS: Family Provider Internal Medicine; PCP Internal Medicine; Referring Provider Surgery; Visit Provider Surgery
DX: R93.3 Abnormal findings on diagnostic imaging of other parts of digestive tract (principal)
CPT/HCPCS: 74270

== ENCOUNTER → 2019-05-13 09:00 | Outpatient (CLI) | payer MEDICARE, OTHER, SELFPAY ==
[2019-03-03 09:55] VITALS: BMI 41.5
[2019-04-22 10:22] VITALS: BMI 41.6
[2019-05-13 09:59] LABS: Absolute Lymphocyte Count 2.47 X10^3/uL (0.83-4.51); Absolute Neutrophil Count 3.2 X10^3/uL (2.0-7.7); Basophil# 0.05 X10^3/uL; Basophil% 0.8 % (0-1); Eosinophil# 0.24 X10^3/uL; Eosinophils% 3.7 % (0-5); Hemoglobin 12.6 g/dL (12.0-15.0); Lymphocyte # 2.47 X10^3/ul (4.0); Lymphocyte % 38.1 % (19-41); Mean Corp Hgb Conc 31.5 g/dL (32-36); Mean Corpuscular Hgb 30.3 pg (27.0-32.0); Mean Corpuscular Volume 96.2 fL (81-99); Mean Platelet Vol. 9.7 fl (6.2-12.0); Monocyte# 0.49 X10^3/uL; Monocyte% 7.6 % (0-10); NRBC Flagged by Analyzer 0 % (0-5); Neutrophil # 3.22 X10^3/uL (2.7-7.7); Neutrophil % 49.5 % (47-70); Platelet Count 331 K/mm3 (150-450); RBC Distribution Width CV 13.4 % (11.6-14.6); RBC Distribution Width SD 47.8 fl (35.1-43.9); Red Blood Count 4.16 M/mm3 (4.2-5.4); White Blood Count 6.5 K/mm3 (4.4-11.0)
[2019-05-13 10:12] LABS: ALB/GLOB Ratio 1.1 RATIO (0.9-2.4); AST(SGOT) 24 U/L (15-37); Alanine Aminotransfer ALT/SGPT 38 U/L (13-56); Albumin, Serum 3.7 g/dL (3.2-5.0); Alkaline Phosphatase 145 U/L (45-117); Anion Gap 5 (5-15); BUN 15 mg/dL (7-18); BUN/Creat Ratio 15.3 RATIO (10-20); CRP 4.64 mg/L (0.0-3.0); Calcium,Total 8.7 mg/dL (8.5-10.1); Chloride 106 mmol/L (98-107); Creatinine, Serum 0.98 mg/dL (0.55-1.02); EST Glomerular Filtration Rate 60 mL/min (>60); Est Glom Filt Rate - Afr Amer 73 mL/min (>60); Globulin 3.5 g/dL (2.2-4.2); Glucose 107 mg/dL (74-106); Potassium 3.8 mmol/L (3.5-5.1); Protein, Total 7.2 g/dL (6.4-8.2); Sodium Level 141 mmol/L (136-145)
[2019-05-13 10:16] LABS: Erythrocyte Sedimentation Rate 11 mm/hr (0-30)
== END ==
PROVIDERS: Family Provider Internal Medicine; PCP Internal Medicine; Referring Provider Internal Medicine Rheumatology; Visit Provider Internal Medicine Rheumatology
DX: M06.4 Inflammatory polyarthropathy (principal); M79.7 Fibromyalgia; M17.0 Bilateral primary osteoarthritis of knee; M16.0 Bilateral primary osteoarthritis of hip; E27.9 Disorder of adrenal gland, unspecified; H81.03 Meniere's disease, bilateral; M51.37 Other intervertebral disc degeneration, lumbosacral region; M47.897 Other spondylosis, lumbosacral region; Z79.899 Other long term (current) drug therapy
CPT/HCPCS: 36415; 80053; 85025; 85652; 86140

== ENCOUNTER → 2019-05-18 12:30 | Outpatient (CLI) | payer MEDICARE, OTHER, SELFPAY ==
[2019-04-22 10:22] VITALS: BMI 41.6
--- NOTE | 2019-05-18 12:34 | BI_ITS ---
BILATERAL DIGITAL MAMMOGRAM WITH TOMOSYNTHESIS: Mediolateraloblique and craniocaudal views demonstrate no evidence of dominant parenchymal masses. No cluster of microcalcifications or architectural distortion is seen. No evidence of skin thickening is identified. There has been no significant change since 01/30/2018. Breast Density: The breast tissue is almost entirely fatty. CAD was used to assist in final assessment. IMPRESSION: NORMAL MAMMOGRAM BILATERALLY. FINAL ASSESSMENT: BIRAD 1 (NEGATIVE) YEARLY MAMMOGRAM RECOMMENDED Approximately 10% of breast cancers are not detected by mammography. A normal mammogram should not delay biopsy of a clinically suspicious abnormality. Electronically Signed: Sorin Young, at 20:35 EDT Tel , Service support , BI/SCREEN MAMM (CAD) W/GAEL GIL
== END ==
PROVIDERS: Family Provider Internal Medicine; PCP Internal Medicine; Referring Provider Internal Medicine; Visit Provider Internal Medicine
DX: Z12.31 Encounter for screening mammogram for malignant neoplasm of breast (principal)
CPT/HCPCS: 77063; 77067

== ENCOUNTER 2019-05-21 09:30 | Outpatient (RCR) | payer MEDICARE, OTHER, SELFPAY ==
[2019-03-03 09:55] VITALS: BMI 41.5
--- NOTE | 2019-03-23 16:50 | HP.PTEVAL ---
Patient's Visit Information MITCHELL MENON is a 68 year old F referred to Physical Therapy by Maik Gardner DO with a diagnosis of cervicalgia. Date of Evaluation: 03/23/19 Physical Therapist: Guille Meza, AGAT, OCS, CSCS - Visit Plan Frequency: 2-3x /Week Duration: 4-6 Weeks Plan: 2-3x/week for 4-6 weeks.. Please start in water with teaching and working to I with general strength adn postural strength. Please do aggressive R shoulder flexion, adduction, ext rotation and IRR stretches and progress to I. EG to recheck in 3 weeks for further shoulder/neck treatments as needed. - Subjective Findings: Had RTR in November of 2018 and still painful. R neck and base of neck and into R shoulder. Has decent mobility in R shoulder but it hurts. Got massage adn dry needling. They helped for a while but hard to get back in. pain daily is 8/10 9/10 today due to weather rainy. It is less noticeable during the day when moving btu worse at night. Nightly sleep is difficult. Has CPAP. Did bone scan of neck and it showed OA everywhere. Not employed. 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 Today has been very busy and i am paying for it Walked foster dog, got hair done, got father in law breakfast. Will be exhausted tonight. Does basic ADLs , hard to do bra due to RC as it hurts. Can get trapped in tops. Did therapy at [facility] after RC. Was on exercises before RC, does water ex before shoulder. Hasn't been able to get in water lately or ride bike due to safety. When exercising pain is better btu has not been able to do that. - Pain R neck Pain Intensity (Out of 10): 9 Pain Intensity Range: 2, 9 - Objective c/s AROM 73 B rotationm full SB, adn 75 ext without increased pain. R shoulder AROM 130 flexion, 98 abd actively, vs 150 L. exter rotation R 33 adn L 60, IR psis R. + R HK and tight posterior capsule. Posture is forward head and elevated scapula. Tender to palpation through B UT and into rhomboids out to the supra tendon R shoulder. reflexes 2/3 bi and tri. sensation WNL to gross light touch UE. - comp test c/s. - ext rotation lag test. strength R shouldr flexion 3+ and abd 3 in available ROM with some pain R shoulder, ext rotation 4- and IR 4/5. bi and tricep 4, L sided are all 4+ without pain. R side pain with ex rotaion, flexion, abd and triceps. Gait and steps are normal today. Good scap mobility B but depression can be hard for patient. - Goals Goal 1:: 145 AROm flexion adn 45 ext rotation adn belt line IR on R shoulder Goal Time Frame: 4-6 Weeks Goal 2:: I appropriate water ex for general fitness and shoulder/postural strength. Goal Time Frame: 2-4 Weeks Goal 3:: Pt feel 50% better overall in pain levels to 3/10 at worst Goal Time Frame: 4-6 Weeks Goal 4:: Sleep without interruption from pain Goal Time Frame: 4-6 Weeks - Rehabilitation Potential Physical Therapy Diagnosis: cervicalgia and tight shoulder, poorly managed post surgically by patient. Rehabilitation Potential: Fair - Anticipated Interventions Patient/Client Instruction: Educate patient on: Condition, Plan of Care For the Purpose of:: To decrease pain, To increase ROM, To increase tolerance to activity/condition/position, To improve ability of physical actions for home/community/work/leisure Therapeutic Exercise to Include: Strength training, Postural training, Flexibilty training, In an aquatic setting, Passive ROM, Active ROM, Scapular Strength/Stabilization For the Purpose of:: To decrease pain, To increase ROM, To improve nutrient delivery to tissue, To increase tolerance to activity/condition/position, To improve ability of physical actions for home/community/work/leisure Thank you for the opportunity to evaluate your patient. For Medicare and Medicare HMO plans, please review the plan of care and approve it. It will need to be FAXED BACK to us at [phone] for Medicare purposes. For Medicare only, by signing this I certify the plan of care. Please let me know if there are questions or concerns regarding this plan of care. Physician Signature: Date:
--- NOTE | 2019-04-05 09:54 | HP.PTREVAL_ITS ---
Maik Gardner, DO, It has been my pleasure to treat MITCHELL MENON over the last 5 visits for cervicalgia. Please see the progress note below for an update on the physical therapy plan of care! Subjective: In pool class every day M-F. Does ex in the monae at home on the weekend. Ordered some device for neck. Is walking and biking. Exercising in monae and it helps her pain. 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 Most of current pain is in R UT adn shoulder and into upper bicep. Has OA in shoulder and neck. Daily pain worse in morning and evening 8/10 in am until 1 oclcok when she loosens up after being in the hot tub. It is better between 1 and 9 hardly noticeable. comes back as soon as she lies down at night. Lies on R side with nursing pillow under neck. Cannot lie on back, Can't lie on L side either. Only sleeps on R side. Biofreeze helps. Had RC surgery R side in November Objective/Function: R shoulder AROM 13 flexion and 30 ext rotation adn PSIS IR all imited by pain. Painful and 3+ ext rotation. IR 4+ and no pain, flexion 4- and painful, + moore Jamir and neer tests. Tender to the palpation s upraspinatus R side. Full elbow aROM B without pain and 4+/5 strength B. Plan Plan: 2x/week for 3-4 weeks for. 1. US non thermal to R supra area. 2. R shoulder PROM, aAROM flexion, ext rotation, IR. 3. strength R shoulder cuff to I. 4. May use Tens and ice and STM if needed to R shoulder and UT. Goals Goal 1:: 145 AROm flexion adn 45 ext rotation adn belt line IR on R shoulder Goal Time Frame: 4-6 Weeks Goal 2:: I appropriate water ex for general fitness and shoulder/postural strength. Goal Time Frame: 2-4 Weeks Goal Progress: Goal Met Goal 3:: Pt feel 50% better overall in pain levels to 3/10 at worst Goal Time Frame: 4-6 Weeks Goal 4:: Sleep without interruption from pain Goal Time Frame: 4-6 Weeks Anticipated Interventions Patient/Client Instruction: Educate patient on: Condition, Plan of Care For the Purpose of:: To decrease pain, To increase ROM, To increase tolerance to activity/condition/position, To improve ability of physical actions for home/community/work/leisure Therapeutic Exercise to Include: Strength training, Postural training, Flexibilty training, In an aquatic setting, Passive ROM, Active ROM, Scapular Strength/Stabilization For the Purpose of:: To decrease pain, To increase ROM, To improve nutrient delivery to tissue, To increase tolerance to activity/condition/position, To improve ability of physical actions for home/community/work/leisure Please do not hesitate to contact me at [phone] by phone or if you have questions or concerns regarding this new plan of care! Sincerely, Guille Meza, DPT, OCS, CSCS
--- NOTE | 2019-04-26 12:37 | HP.PTREVAL ---
Maik Gardner, DO, It has been my pleasure to treat MITCHELL MENON over the last 11 visits for cervicalgia. Please see the progress note below for an update on the physical therapy plan of care! Subjective: Got tens unit herself. Also got massage in R UT and felt good for the weekend. Slept all night the night before last with TENS unit. Hurting today 0/10 at rest. Still getting in water in pool 5x/week. Feels better in the water. US has helped. Tens really helped upper arm. Doing shayna at home and pulling on bands. Objective/Function: Good neck ROM without pain today. Tender in R UT vsL and into scalenes. AROM R shoulder flexion 133, abd 110, ext rot 40, PROM to 150 elevation and 50 ext rot. Has painful arc descending from flexion in R shoulder. - c/s compression. OVERALL HAS DONE WELL GETTING BACK TO EX AND NOW APPROPRIATE TO ATTEMPT MODALITIES IN CONJUNCTION FOR NECK PAIN. Plan Plan: 2X/WEEK FOR 3 WEEKS FOR. 1. DTM STM to r UT and stretch. adn scalenes. 2. Devante to DN also at hese visits. Pt to continue strengthening adn pool work. Fair prognosis to goals and new goal Goals Goal 1:: 145 AROm flexion adn 45 ext rotation adn belt line IR on R shoulder Goal Time Frame: 4-6 Weeks Goal Progress: Progressing Goal 2:: I appropriate water ex for general fitness and shoulder/postural strength. Goal Time Frame: 2-4 Weeks Goal Progress: Goal Met Goal 3:: Pt feel 50% better overall in pain levels to 3/10 at worst Goal Time Frame: 4-6 Weeks Goal Progress: Goal Met Goal 4:: Sleep without interruption from pain Goal Time Frame: 4-6 Weeks Goal Progress: Goal Met Goal 5:: Pt feel 80% better overall in R UT pain. Goal Time Frame: 2-4 Weeks Goal Progress: NEW GOAL Anticipated Interventions Patient/Client Instruction: Educate patient on: Condition, Plan of Care For the Purpose of:: To decrease pain, To increase ROM, To increase tolerance to activity/condition/position, To improve ability of physical actions for home/community/work/leisure Therapeutic Exercise to Include: Strength training, Postural training, Flexibilty training, In an aquatic setting, Passive ROM, Active ROM, Scapular Strength/Stabilization For the Purpose of:: To decrease pain, To increase ROM, To improve nutrient delivery to tissue, To increase tolerance to activity/condition/position, To improve ability of physical actions for home/community/work/leisure Please do not hesitate to contact me at [phone] by phone or if you have questions or concerns regarding this new plan of care! Sincerely, Guille Meza, DPT, OCS, CSCS
--- NOTE | 2019-05-21 10:00 | HP.PTDCSUM ---
HP - PT D/C Summary It has been my pleasure to treat MITCHELL MENON under orders from Maik Gardner DO, for the diagnosis of cervicalgia for a total of 16 visit(s). Discharge Date: 05/21/19 Please see the following information for a summary of their discharge status. - Subjective Subjective: Saw rhumatologist yesterday and has some bloodwork that is slighty off. Does not think it is rhumatologist. Pt thinks she is doing really really well. Rainy weather sets her back. Pain is in R shoulder today. slightly . Hurt to adduct R shoulder yesterday travellign to [place]. Is back on CBD oil 3 days ago and feels better. R UT is up and down but is decent today. Ut is rough in morning but loosens up nicely. Does OK during day but lying down at night can cause pain. In water 3 times per week. Also in gym doing her workout 3x/week. Needling not helping a whole lot. - Pain R neck Pain Intensity (Out of 10): 0 R rotator cuff Pain Intensity (Out of 10): 3 - Overall Improvement % Improvement: 50 - Objective Objective/Function: Full aROM B shoulders(145 elevation, 45 ext rotation) but scapular elevation is apparent in end range flexion R shoulder. Tender to palpation R supraspinatus. Weak in ext rotation R and slightly uncomfortable. Neck aROM is full and without pain today. Dry needlign not overly helpful and patient will cotninue with self pay monthly massages as needed. OVERALL PATIENT DOING BETTER BUT UP AND DOWN WITH PAIN WHICH IS FRUSTRATING FOR HER. - Goals Goal 1:: 145 AROm flexion adn 45 ext rotation adn belt line IR on R shoulder Goal Progress: Goal Met Goal 2:: I appropriate water ex for general fitness and shoulder/postural strength. Goal Progress: Goal Met Goal 3:: Pt feel 50% better overall in pain levels to 3/10 at worst Goal Progress: Goal Met Goal 4:: Sleep without interruption from pain Goal Progress: Goal Met Goal 5:: Pt feel 80% better overall in R UT pain. Goal Progress: Not Progressing - Plan Plan: D/C, Pt to see spinal surgeon at the recommendation of her rhumatologist. Looks to me like problem is still in R rC weakness. She will keep working on this and let doctor know if improvement lags. - D/C Information Discharge Comments: Pt can continue pool and gym ex 3x/week and let doctor know if progress stagnates. If there are questions or concerns regarding this patient's physical therapy, please feel free to call me at [phone]. Thank you for the referral of this patient. Sincerely, Guille Meza, DPT, OCS, CSCS
== END 2019-05-21 19:00 | disposition home or self-care (01) ==
LOC: PT 09:30
PROVIDERS: Family Provider Internal Medicine; PCP Internal Medicine; Referring Provider Orthopaedic Surgery; Visit Provider Orthopaedic Surgery
DX: M54.2 Cervicalgia (principal)
CPT/HCPCS: 97035; 97110; 97113; 97140; 97162; 97164; 97530

== ENCOUNTER → 2019-06-18 11:55 | Outpatient (CLI) | payer MEDICARE, OTHER, SELFPAY ==
[2019-05-18 13:30] VITALS: BMI 41.8
[2019-06-18 14:22] LABS: Vitamin D,25 Hydroxy 52.5 ng/mL (29.95-100.01)
[2019-06-18 14:26] LABS: AST(SGOT) 14 U/L (15-37); Alanine Aminotransfer ALT/SGPT 42 U/L (13-56); Albumin, Serum 3.8 g/dL (3.2-5.0); Alkaline Phosphatase 132 U/L (45-117); Anion Gap 9 (5-15); BUN 33 mg/dL (7-18); BUN/Creat Ratio 31.1 RATIO (10-20); Calcium,Total 8.9 mg/dL (8.5-10.1); Chloride 103 mmol/L (98-107); Creatinine, Serum 1.06 mg/dL (0.55-1.02); EST Glomerular Filtration Rate 55 mL/min (>60); Est Glom Filt Rate - Afr Amer 67 mL/min (>60); Globulin 3.7 g/dL (2.2-4.2); Glucose 84 mg/dL (74-106); Potassium 3.6 mmol/L (3.5-5.1); Protein, Total 7.5 g/dL (6.4-8.2); Sodium Level 140 mmol/L (136-145); T4 Free Direct 1.24 ng/dL (0.76-1.46); Thyroid Stim Hormone (TSH) 3.06 uIU/mL (0.358-3.74)
[2019-06-18 15:02] LABS: Hemoglobin A1c 6.1 % (4.2-6.3)
== END ==
PROVIDERS: Family Provider Internal Medicine; PCP Internal Medicine; Referring Provider Internal Medicine Endocrinology, Diabetes & Metabolism; Visit Provider Internal Medicine Endocrinology, Diabetes & Metabolism
DX: E23.7 Disorder of pituitary gland, unspecified (principal); E03.9 Hypothyroidism, unspecified; R73.03 Prediabetes; E55.9 Vitamin D deficiency, unspecified
CPT/HCPCS: 36415; 80053; 82306; 83036; 84439; 84443

== ENCOUNTER → 2019-08-12 12:29 | Outpatient (CLI) | payer MEDICARE, OTHER, SELFPAY ==
[2019-07-27 07:49] VITALS: BMI 42.1
[2019-08-12 13:17] LABS: Absolute Lymphocyte Count 3.22 X10^3/uL (0.83-4.51); Absolute Neutrophil Count 4.1 X10^3/uL (2.0-7.7); Basophil# 0.05 X10^3/uL; Basophil% 0.6 % (0-1); Eosinophil# 0.31 X10^3/uL; Eosinophils% 3.8 % (0-5); Hematocrit 40.5 % (37-47); Lymphocyte # 3.22 X10^3/ul (4.0); Lymphocyte % 39.2 % (19-41); Mean Corp Hgb Conc 32.1 g/dL (32-36); Mean Corpuscular Hgb 30.4 pg (27.0-32.0); Mean Corpuscular Volume 94.6 fL (81-99); Mean Platelet Vol. 9.4 fl (6.2-12.0); Monocyte# 0.54 X10^3/uL; Monocyte% 6.6 % (0-10); NRBC Flagged by Analyzer 0 % (0-5); Neutrophil # 4.05 X10^3/uL (2.7-7.7); Neutrophil % 49.3 % (47-70); Platelet Count 368 K/mm3 (150-450); RBC Distribution Width CV 13.3 % (11.6-14.6); RBC Distribution Width SD 45.9 fl (35.1-43.9); Red Blood Count 4.28 M/mm3 (4.2-5.4); White Blood Count 8.2 K/mm3 (4.4-11.0)
[2019-08-12 13:34] LABS: ALB/GLOB Ratio 1.1 RATIO (0.9-2.4); AST(SGOT) 19 U/L (15-37); Alanine Aminotransfer ALT/SGPT 33 U/L (13-56); Albumin, Serum 3.9 g/dL (3.2-5.0); Alkaline Phosphatase 134 U/L (45-117); Anion Gap 6 (5-15); BUN 24 mg/dL (7-18); Calcium,Total 9.2 mg/dL (8.5-10.1); Chloride 110 mmol/L (98-107); EST Glomerular Filtration Rate 59 mL/min (>60); Est Glom Filt Rate - Afr Amer 71 mL/min (>60); Globulin 3.7 g/dL (2.2-4.2); Glucose 120 mg/dL (74-106); Potassium 3.9 mmol/L (3.5-5.1); Protein, Total 7.6 g/dL (6.4-8.2); Sodium Level 143 mmol/L (136-145)
== END ==
PROVIDERS: Family Provider Internal Medicine; PCP Internal Medicine; Referring Provider Internal Medicine Rheumatology; Visit Provider Internal Medicine Rheumatology
DX: M06.4 Inflammatory polyarthropathy (principal); M17.0 Bilateral primary osteoarthritis of knee; M16.0 Bilateral primary osteoarthritis of hip; E27.9 Disorder of adrenal gland, unspecified; M51.37 Other intervertebral disc degeneration, lumbosacral region; M47.897 Other spondylosis, lumbosacral region; M79.7 Fibromyalgia; Z79.899 Other long term (current) drug therapy
CPT/HCPCS: 36415; 80053; 85025

== ENCOUNTER 2019-10-11 14:27 | Emergency (ER) | payer MEDICARE, OTHER, SELFPAY ==
[2019-10-08 14:15] VITALS: BMI 42.1
[2019-10-11 14:28] VITALS: BP 160/78; PULSE 101; RESP 16; TEMP 37.6; O2SAT 99; BMI 42.5
[2019-10-11] MEDS: 0.9% Normal Saline 1,000 ML 1000 ML IV (15:14)
[2019-10-11 15:17] LABS: Absolute Lymphocyte Count 3.42 X10^3/uL (0.83-4.51); Absolute Neutrophil Count 4.3 X10^3/uL (2.0-7.7); Basophil# 0.05 X10^3/uL; Basophil% 0.6 % (0-1); Eosinophils% 2.3 % (0-5); Hematocrit 42.5 % (37-47); Hemoglobin 13.8 g/dL (12.0-15.0); Lymphocyte # 3.42 X10^3/ul (4.0); Mean Corp Hgb Conc 32.5 g/dL (32-36); Mean Corpuscular Hgb 30.6 pg (27.0-32.0); Mean Corpuscular Volume 94.2 fL (81-99); Monocyte# 0.56 X10^3/uL; Monocyte% 6.6 % (0-10); NRBC Flagged by Analyzer 0 % (0-5); Neutrophil # 4.25 X10^3/uL (2.7-7.7); Neutrophil % 49.8 % (47-70); Platelet Count 427 K/mm3 (150-450); RBC Distribution Width CV 13.4 % (11.6-14.6); RBC Distribution Width SD 46.6 fl (35.1-43.9); Red Blood Count 4.51 M/mm3 (4.2-5.4); White Blood Count 8.5 K/mm3 (4.4-11.0)
[2019-10-11 15:33] LABS: AST(SGOT) 14 U/L (15-37); Alanine Aminotransfer ALT/SGPT 40 U/L (13-56); Albumin, Serum 3.8 g/dL (3.2-5.0); Alkaline Phosphatase 129 U/L (45-117); Anion Gap 4 (5-15); BUN 19 mg/dL (7-18); BUN/Creat Ratio 20.5 RATIO (10-20); Calcium,Total 9.3 mg/dL (8.5-10.1); Chloride 105 mmol/L (98-107); Creatinine, Serum 0.93 mg/dL (0.55-1.02); EST Glomerular Filtration Rate 64 mL/min (>60); Est Glom Filt Rate - Afr Amer 78 mL/min (>60); Estimated Creatinine Clearance 53.54 ml/min; Glucose 98 mg/dL (74-106); Lipase 80 U/L (73-393); Potassium 3.8 mmol/L (3.5-5.1); Protein, Total 7.8 g/dL (6.4-8.2); Sodium Level 139 mmol/L (136-145)
[2019-10-11 15:49] VITALS: BP 139/75; PULSE 84; RESP 18; O2SAT 98
--- NOTE | 2019-10-11 16:14 | ED.VISSUMM ---
- ER Visit Summary Date of Service: 10/11/19 Chief Complaint: Nausea vomiting and diarrhea History of Present Illness: The patient is a 68 F who presents with nausea, vomiting, and diarrhea that has been constant for the past week. Patient states she recently went on a cruise and thinks she picked up norovirus. Patient states she was seen by a physician who told her it was norovirus. Patient states she has had multiple episodes of nausea and vomiting. Patient states she started with diarrhea. Patient was given a prescription for Phenergan. Patient states she has diffuse pain throughout her abdomen but is worse currently in the epigastric area. Patient describes it as dull and aching. Physical Examination: Vital signs are stable. Patient is afebrile. Patient is in no acute distress. Oral mucosa is pink and moist. Neck is supple. Trachea is midline. There is no JVD. Heart was regular rate and rhythm. Lungs are clear and equal bilaterally. Abdomen is soft. There is mild diffuse tenderness. There is no rebound or guarding noted. Cranial nerves II through XII are intact. There are no focal motor or sensory deficits noted. Test Results: CBC and comprehensive metabolic profile were within normal limits. Lipase was normal. Emergency Department Course and Treatment: Patient was given IV fluids. Patient was feeling better on reevaluation. Patient was advised of her lab results. Patient was instructed to continue drinking fluids at home. Patient was instructed to return if worse in any way. Patient was instructed to take her Phenergan as previously prescribed. Patient understood and was agreeable with the plan. All questions were answered. Disposition: Discharge home Impression: Nausea vomiting and diarrhea This note was generated with [employer] dictation software. It may contain incorrect words, spelling, and punctuation that were not noted in review of the chart prior to signing ED Disposition - Plan for ED Patient: Disposition: Home or Assisted Living Diagnosis: Nausea vomiting and diarrhea Instructions: VOMITING AND DIARRHEA, Nonspecific (Adult) Referrals: Yoanna Hull MD [Primary Care Provider] - 5-7 Days
== END 2019-10-11 16:42 | disposition home or self-care (01) ==
PROVIDERS: Emergency Provider Emergency Medicine; PCP Internal Medicine
DX: R11.2 Nausea with vomiting, unspecified (principal); R19.7 Diarrhea, unspecified; M54.2 Cervicalgia; R51 Headache; R21 Rash and other nonspecific skin eruption; E66.9 Obesity, unspecified; Z79.899 Other long term (current) drug therapy
CPT/HCPCS: 80053; 83690; 85025; 96360; 99283; J7030; A4216

== ENCOUNTER → 2019-10-29 13:30 | Outpatient (CLI) | payer MEDICARE, OTHER, SELFPAY ==
[2019-07-27 07:49] VITALS: BMI 42.1
[2019-10-11 14:28] VITALS: BMI 42.5
[2019-10-29 15:52] LABS: Absolute Lymphocyte Count 3.39 X10^3/uL (0.83-4.51); Absolute Neutrophil Count 3.4 X10^3/uL (2.0-7.7); Basophil# 0.05 X10^3/uL; Basophil% 0.7 % (0-1); Eosinophil# 0.17 X10^3/uL; Eosinophils% 2.3 % (0-5); Hematocrit 39.5 % (37-47); Hemoglobin 12.5 g/dL (12.0-15.0); Lymphocyte # 3.39 X10^3/ul (4.0); Mean Corp Hgb Conc 31.6 g/dL (32-36); Mean Platelet Vol. 9.9 fl (6.2-12.0); Monocyte# 0.48 X10^3/uL; Monocyte% 6.4 % (0-10); NRBC Flagged by Analyzer 0 % (0-5); Neutrophil # 3.41 X10^3/uL (2.7-7.7); Neutrophil % 45.2 % (47-70); Platelet Count 367 K/mm3 (150-450); RBC Distribution Width CV 13.5 % (11.6-14.6); RBC Distribution Width SD 46.4 fl (35.1-43.9); Red Blood Count 4.16 M/mm3 (4.2-5.4); White Blood Count 7.5 K/mm3 (4.4-11.0)
[2019-10-29 16:12] LABS: Hemoglobin A1c 6.2 % (4.2-6.3)
[2019-10-29 16:24] LABS: AST(SGOT) 19 U/L (15-37); Alanine Aminotransfer ALT/SGPT 34 U/L (13-56); Albumin, Serum 3.8 g/dL (3.2-5.0); Alkaline Phosphatase 132 U/L (45-117); Anion Gap 6 (5-15); BUN 17 mg/dL (7-18); BUN/Creat Ratio 19.7 RATIO (10-20); Calcium,Total 8.8 mg/dL (8.5-10.1); Chloride 104 mmol/L (98-107); Creatinine, Serum 0.86 mg/dL (0.55-1.02); EST Glomerular Filtration Rate 70 mL/min (>60); Est Glom Filt Rate - Afr Amer 84 mL/min (>60); Free T3 3.3 pg/mL (2.18-3.98); Globulin 3.8 g/dL (2.2-4.2); Glucose 95 mg/dL (74-106); LDH 243 U/L (84-246); Potassium 3.7 mmol/L (3.5-5.1); Protein, Total 7.6 g/dL (6.4-8.2); Sodium Level 139 mmol/L (136-145); T4 Free Direct 0.99 ng/dL (0.76-1.46); Thyroid Stim Hormone (TSH) 2.25 uIU/mL (0.358-3.74)
[2019-10-29 16:25] LABS: Microalbumin,Random Urine 6.5 mg/L (NO RANGE EST.); Microalbumin:Creatinine Ratio 6.5 mg/g CRE (<30 mg/g CRE)
[2019-11-01 14:07] LABS: Albumin 3.6 g/dL (2.9-4.4); Alpha-1-Globulins 0.3 g/dL (0.0-0.4); Alpha-2-Globulins 0.9 g/dL (0.4-1.0); Free Kappa Light Chains 14.7 mg/L (3.3-19.4); Free Lambda Light Chains 20.3 mg/L (5.7-26.3); Gamma Globulin 0.8 g/dL (0.4-1.8); Immunoglobulin A 340 mg/dL (87-352); Immunoglobulin A 342 mg/dL (87-352); Immunoglobulin M 30 mg/dL (26-217); Immunoglobulin M 35 mg/dL (26-217)
[2019-11-01 15:40] LABS: Immunoglobulin G 843 mg/dL (700-1600)
[2019-11-01 15:41] LABS: Immunoglobulin G 832 mg/dL (700-1600)
[2019-11-01 17:07] LABS: Cholesterol 194 mg/dL (200); High Density Lipoprotein 50 mg/dL; Triglycerides 136 mg/dL; Very Low Density Lipoprotein 27 mg/dL (5-40)
== END ==
PROVIDERS: Internal Medicine Medical Oncology; Family Provider Internal Medicine; PCP Internal Medicine; Referring Provider Internal Medicine Endocrinology, Diabetes & Metabolism; Visit Provider Internal Medicine Endocrinology, Diabetes & Metabolism
DX: E03.9 Hypothyroidism, unspecified (principal); R73.03 Prediabetes; D47.2 Monoclonal gammopathy
CPT/HCPCS: 36415; 80053; 80061; 82043; 82570; 82784; 83036; 83615; 83883; 84165; 84439; 84443; 84481; 85025; 86334

== ENCOUNTER 2019-11-24 15:24 | Emergency (ER) | payer MEDICARE, OTHER, SELFPAY ==
[2019-11-23 13:47] VITALS: BMI 42.1
[2019-11-24] VITALS (8 sets, daily range): BP systolic 122–158; BP diastolic 72–102; PULSE 83–105; RESP 15–25; TEMP 36.7–36.9; O2SAT 96–99; BMI 40.9
--- NOTE | 2019-11-24 15:56 | EKG12_ITS ---
Test Reason : CP Blood Pressure : / mmHG Vent. Rate : 096 BPM Atrial Rate : 096 BPM P-R Int : 172 ms QRS Dur : 088 ms QT Int : 352 ms P-R-T Axes : 047 035 051 degrees QTc Int : 444 ms Normal sinus rhythm Normal ECG Confirmed by VARGAS RENO, MIRLANDE ([id number]), greeting card editor CAMILLA ORDONEZ ([id number]) on 11/30/2019 9:12:18 AM Referred By: LEE Confirmed By:JUDY KAYE MD
--- NOTE | 2019-11-24 16:04 | ED.DCSUM_ITS ---
- ER Visit Summary Date of Service: 11/24/19 Chief Complaint: Chest pain History of Present Illness: The patient is a 68 F who presents with chest pain that began today. Patient states the pain is over the substernal area and radiates into her back. Patient describes the pain as dull and aching. Patient states the pain is been constant since this morning but is been waxing and waning. Patient admits to some tingling down her left arm that comes and goes. Patient admits to some lightheadedness. Patient also admits to some shortness of breath and palpitations. Patient has a history of Roman's esophagus. Patient states her medications for that were recently changed and her Carafate was increased. Physical Examination: Vital signs are stable. Patient is afebrile. Patient is in no acute distress. Oral mucosa is pink and moist. Neck is supple. Trachea is midline. There is no JVD noted. Heart was regular rate and rhythm. Lungs are clear and equal bilaterally. Abdomen is soft. Bowel sounds are normal. There is no tenderness. There is no rebound or guarding noted. Skin is warm dry. Cranial nerves II through XII are intact. There are no focal motor or sensory deficits noted. Extremities are intact. There is no calf tenderness or edema. Test Results: EKG showed normal sinus rhythm with a rate of 96. There are no acute ST or T wave changes. Portable chest x-ray was obtained. There is no acute cardiopulmonary process. This was interpreted by the radiologist and myself. CBC and metabolic profile were within normal limits. Troponin was normal. 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 Patient was given a sublingual nitroglycerin tablet. Patient is feeling better on reevaluation. Since her pain is been waxing and waning throughout the day, a delta troponin was ordered. This was normal. Patient was advised to follow-up with her primary care physician in 5 to 7 days. Patient states she has an appoint with the ear nose and throat physician tomorrow. Patient was instructed to follow-up with us as scheduled. Patient understood and was agreeable with the plan. All questions were answered. Disposition: Discharge home Impression: 1. Chest pain This note was generated with [employer] dictation software. It may contain incorrect words, spelling, and punctuation that were not noted in review of the chart prior to signing ED Disposition - Plan for ED Patient: Disposition: Home or Assisted Living Diagnosis: Chest pain Instructions: ED Chest Pain Atypical Unkn Cause Referrals: Yoanna Hull MD [Primary Care Provider] - 3-5 Days
[2019-11-24] MEDS: Nitroglycerin SL (ED/IMG/CATH) 0.4 MG TABLET SUBLINGUAL (16:10)
[2019-11-24 16:27] LABS: Absolute Lymphocyte Count 3.68 X10^3/uL (0.83-4.51); Absolute Neutrophil Count 3.2 X10^3/uL (2.0-7.7); Basophil# 0.05 X10^3/uL; Basophil% 0.6 % (0-1); Eosinophil# 0.27 X10^3/uL; Eosinophils% 3.4 % (0-5); Hematocrit 39.6 % (37-47); Hemoglobin 12.7 g/dL (12.0-15.0); Lymphocyte # 3.68 X10^3/ul (4.0); Lymphocyte % 46.4 % (19-41); Mean Corp Hgb Conc 32.1 g/dL (32-36); Mean Corpuscular Hgb 30.5 pg (27.0-32.0); Monocyte# 0.66 X10^3/uL; Monocyte% 8.3 % (0-10); NRBC Flagged by Analyzer 0 % (0-5); Neutrophil # 3.24 X10^3/uL (2.7-7.7); Neutrophil % 40.9 % (47-70); Platelet Count 337 K/mm3 (150-450); RBC Distribution Width CV 13.4 % (11.6-14.6); RBC Distribution Width SD 46.7 fl (35.1-43.9); Red Blood Count 4.17 M/mm3 (4.2-5.4); White Blood Count 7.9 K/mm3 (4.4-11.0)
--- NOTE | 2019-11-24 16:30 | RAD_ITS ---
STUDY: X-RAY CHEST REASON FOR EXAM: Female, 68 years old. chest pain, shortness of breath TECHNIQUE: Single AP portable view of the chest. COMPARISON: 11/23/2018 FINDINGS: The lungs are clear and expanded. There is no demonstrated pleural abnormality. Normal size heart. Normal mediastinum and alicja. Normal visualized pulmonary arteries. Normal visualized aortic arch and descending thoracic aorta. Normal visualized thoracic spine. Normal visualized ribs, clavicles, and shoulders. There is no demonstrated abnormality of the visualized soft tissue structures of the upper abdomen. RAD/Chest 1 View (Portable) IMPRESSION: Normal x-ray examination of the chest. Electronically Signed: Parminder Freire MD at 16:51 EDT Tel , Service support ,
[2019-11-24 16:50] LABS: Anion Gap 4 (5-15); BUN 19 mg/dL (7-18); Calcium,Total 9.4 mg/dL (8.5-10.1); Chloride 108 mmol/L (98-107); Creatinine, Serum 0.86 mg/dL (0.55-1.02); EST Glomerular Filtration Rate 70 mL/min (>60); Est Glom Filt Rate - Afr Amer 84 mL/min (>60); Glucose 107 mg/dL (74-106); Potassium 4.9 mmol/L (3.5-5.1); Sodium Level 141 mmol/L (136-145)
== END 2019-11-24 20:50 | disposition home or self-care (01) ==
PROVIDERS: Emergency Provider Emergency Medicine; PCP Internal Medicine
DX: R07.9 Chest pain, unspecified (principal); R20.2 Paresthesia of skin; R00.2 Palpitations; R06.02 Shortness of breath; M54.2 Cervicalgia; M54.9 Dorsalgia, unspecified; J45.909 Unspecified asthma, uncomplicated
CPT/HCPCS: 36415; 71045; 80048; 84484; 85025; 93005; 99285; A4216

== ENCOUNTER → 2019-12-08 14:29 | Outpatient (CLI) | payer MEDICARE, OTHER, SELFPAY ==
[2019-11-24 15:25] VITALS: BMI 40.9
--- NOTE | 2019-12-08 14:50 | RAD_ITS ---
STUDY: X-RAY - LUMBAR SPINE REASON FOR EXAM: Female, 69 years old. Low back pain TECHNIQUE: 3 view(s) of the lumbar spine were obtained. COMPARISON: Comparison is made with prior examination dated September 26, 2012. FINDINGS: Normal lumbar lordosis. There is no substantial scoliosis. Grade 2 anterior listhesis of L5 on S1 with spondylolysis of the pars interarticularis of the L5 vertebrae. There is multilevel endplate spondylosis of the lumbar vertebrae. There is multi-level degenerative disc disease with multi-level disc space narrowing. The soft tissue structures are unremarkable. RAD/Lumbar Spine 2 or 3 Views IMPRESSION: Degenerative changes of the spine, as detailed above. Grade 2 anterolisthesis of L5 on S1 with spondylolysis of the pars interarticularis of L5 vertebrae. Electronically Signed: Billy Kaplan, at 15:36 EDT , Service support ,
== END ==
PROVIDERS: PCP Internal Medicine; Referring Provider Anesthesiology Pain Medicine; Visit Provider Anesthesiology Pain Medicine
DX: M54.9 Dorsalgia, unspecified (principal)
CPT/HCPCS: 72100

== ENCOUNTER → 2020-01-07 07:22 | Outpatient (CLI) | payer MEDICARE, OTHER, SELFPAY ==
[2019-12-22 12:34] VITALS: BMI 43.4
--- NOTE | 2020-01-07 12:46 | STRESSREP_ITS ---
Stress Test Report Pharmacologic myocardial perfusion stress test. 69-year-old lady with a history of chest pain for Stress protocol: Resting KG demonstrates normal sinus rhythm with a rate of 83 bpm normal intervals are noted resting blood pressures 130/70 mmHg. 0.4 mg of regadenoson was infused per usual protocol followed by rapid intravenous saline flush injection continuous equipment monitor phototypesetting was performed. The maximum heart rate attained was 102 bpm which was 66% of maximum predicted heart rate the maximum workload was 1 metabolic equivalent. At rest there were no ST or T wave changes noted suggest abnormal flow reserve and at peak infusion nonspecific ST-T wave changes were noted. Myocardial perfusion protocol. 15.0 mCi of technetium 99m sestamibi was injected at rest. 0.4 mg of regadenoson was infused per usual protocol. At peak infusion 45.0 mCi of technetium 99m sestamibi was injected stress images were obtained stress and rest images were reconstructed in comparing the short axis vertical long horizontal long axis. Gated images were also obtained Perfusion SPECT analysis: Review of the stress images demonstrate mildly reduced uptake of tracer noted in the anterior wall. The resting images demonstrate a similar pattern with mild improvement. A small amount of anterior ischemia cannot be complete excluded. The rest of the hirsch appear to be well perfused. Gated SPECT analysis: The gated ejection fraction is noted to be 70%. Conclusion: Pharmacologic myocardial perfusion stress test with possibly mild anterior ischemia. Preserved ejection fraction.
== END ==
PROVIDERS: PCP Internal Medicine; Referring Provider Internal Medicine Cardiovascular Disease; Visit Provider Internal Medicine Cardiovascular Disease
DX: R07.9 Chest pain, unspecified (principal); R06.00 Dyspnea, unspecified; I10 Essential (primary) hypertension; R60.0 Localized edema
CPT/HCPCS: 78452; 93017; A9500; A4216; J2785

== ENCOUNTER 2020-01-13 16:23 | Inpatient (IN) | payer MEDICARE, OTHER, SELFPAY ==
[2019-12-22 12:34] VITALS: BMI 43.4
[2020-01-13] VITALS (9 sets, daily range): BP systolic 123–178; BP diastolic 74–95; PULSE 90–109; RESP 16–18; TEMP 36.6–37; O2SAT 92–98; BMI 42.4; BMI 42.5
--- NOTE | 2020-01-13 16:36 | EKG12_ITS ---
Test Reason : CP Blood Pressure : / mmHG Vent. Rate : 110 BPM Atrial Rate : 110 BPM P-R Int : 168 ms QRS Dur : 090 ms QT Int : 338 ms P-R-T Axes : 048 043 055 degrees QTc Int : 457 ms Sinus tachycardia Otherwise normal ECG Confirmed by CELI RENO, SHARMIN ([id number]), video effects editor RAY ESQUIVEL ([id number]) on 01/17/2020 1:35:46 PM Referred By: ERICK Confirmed By:SHARMIN ALATORRE MD
--- NOTE | 2020-01-13 17:00 | RAD_ITS ---
STUDY: X-RAY CHEST REASON FOR EXAM: Female, 69 years old. CHEST PAIN TECHNIQUE: Frontal and lateral views of the chest. COMPARISON: None. FINDINGS: The lungs are clear and expanded. Stable mild linear densities across the left lung base consistent with scarring or discoid atelectasis. No infiltrates. No effusions. There is no demonstrated pleural abnormality. Normal size heart. Normal mediastinum and alicja. Normal visualized pulmonary arteries. There is atherosclerotic calcification of the aortic arch with tortuosity. There are diffuse degenerative changes of the visualized thoracic spine. Normal visualized ribs, clavicles, and shoulders. There is no demonstrated abnormality of the visualized soft tissue structures of the upper abdomen. RAD/Chest PA and Lateral IMPRESSION: No definite acute or significant abnormality seen. Electronically Signed: Bimal Valera MD at 17:21 EDT , Service support ,
[2020-01-13] MEDS: Aspirin 81 MG TAB.CHEW 324 MG PO (17:07)
[2020-01-13 17:08] LABS: Absolute Lymphocyte Count 3.52 X10^3/uL (0.83-4.51); Absolute Neutrophil Count 4.2 X10^3/uL (2.0-7.7); Basophil# 0.04 X10^3/uL; Basophil% 0.5 % (0-1); Eosinophil# 0.25 X10^3/uL; Eosinophils% 2.9 % (0-5); Hematocrit 42.7 % (37-47); Hemoglobin 13.7 g/dL (12.0-15.0); Lymphocyte # 3.52 X10^3/ul (4.0); Lymphocyte % 40.6 % (19-41); Mean Corp Hgb Conc 32.1 g/dL (32-36); Mean Corpuscular Hgb 30.8 pg (27.0-32.0); Mean Platelet Vol. 9.5 fl (6.2-12.0); Monocyte# 0.62 X10^3/uL; Monocyte% 7.2 % (0-10); NRBC Flagged by Analyzer 0 % (0-5); Neutrophil # 4.21 X10^3/uL (2.7-7.7); Neutrophil % 48.6 % (47-70); Platelet Count 379 K/mm3 (150-450); RBC Distribution Width CV 13.2 % (11.6-14.6); RBC Distribution Width SD 47.1 fl (35.1-43.9); Red Blood Count 4.45 M/mm3 (4.2-5.4); White Blood Count 8.7 K/mm3 (4.4-11.0)
--- NOTE | 2020-01-13 17:16 | ED.DCSUM_ITS ---
History of Present Illness Chief Complaint: Chest Pain Informant: Patient Narrative: Patient presenting for evaluation secondary to chest pain. Patient reports that since this morning she has been dealing with chest pain. She states that it is left anterior chest and is associated with a heaviness and a tightness type sensation that occasionally will radiate down her left arm. She does endorse that she has some mild shortness of breath. There is no exertional component to this. No positional component, not worse or better with change in position or palpation. Patient reports that she recently was seen for a somewhat similar chest pain that actually went through to her back and radiated down her arm. She had a stress test which she had inducible ischemia on, and she is scheduled for cardiac catheterization in another 11 days. Patient denies any history of DVT or PE. She denies any recent illnesses such as fever cough nausea vomiting or diarrhea. She denies any dysuria hematuria or blood in her stool. Patient does have a history of some hypertension. Review of systems otherwise negative. Past Medical History - Allergies and Home Meds Allergies/Adverse Reactions: Allergies phenytoin sodium [From Dilantin] Allergy (Mild, Verified 12/22/19 12:35) Rash phenytoin sodium extended [From Dilantin] Allergy (Mild, Verified 12/22/19 12:35) Rash ketorolac tromethamine [From Toradol] Allergy (Verified 12/22/19 12:35) Anaphylaxis morphine Adverse Reaction (Severe, Verified 12/22/19 12:35) Other not effective, confusion Honey Dew Melon Adverse Reaction (Uncoded 12/22/19 12:35) Food Allergy Primary Care Physician: Yoanna Hull MD [Primary Care Provider] - Prior records reviewed: Yes Past Medical History: - - Hypertension Surgical History: no surgical history Smoking Status: Never smoker - Family History Maternal Family History: Family History (Last Reviewed 12/22/19 @ 14:[address] Orlando Stein MD) Father Cancer Mother Osteoarthritis COPD (chronic obstructive pulmonary disease) Dementia Brother Myocardial infarction, Onset Age: 49 Aunt Multiple sclerosis Sister Colon cancer Aunt Celiac disease Family History: Reports: No pertinent history Paternal Family History: Family History (Last Reviewed 12/22/19 @ 14:[address] Orlando Stein MD) Father Cancer Mother Osteoarthritis COPD (chronic obstructive pulmonary disease) Dementia Brother Myocardial infarction, Onset Age: 49 Aunt Multiple sclerosis Sister Colon cancer Aunt Celiac disease Family History: Reports: No pertinent history Review of Systems All systems negative except as indicated General: Denies: Chills, Fever, Sweats Eyes: Denies: Visual changes - bilaterally, Diplopia ENT: Denies: Rhinorrhea, Sore throat Cardiovascular: Reports: Chest pain Respiratory: Reports: Dyspnea Gastrointestinal: Denies: Abdominal pain, Nausea, Vomiting, Diarrhea, Melena, Hematochezia Genitourinary: Denies: Dysuria, Hematuria, Frequency Musculoskeletal: Denies: Back pain, Extremity Pain Skin: Denies: Rash, Wounds Neurological: Denies: Headache, Weakness, Numbness Physical Exam Vital Signs/Narrative: Vital Signs Temp Pulse Resp BP Pulse Ox 01/13/20 16:24 97.9 F 109 H 18 178/95 H 98 Inital Vital Signs reviewed: Yes General: Well nourished, Well developed, No Acute Distress Head: Normocephalic, Atraumatic Eyes: Perrl, EOMI ENT: Moist mucous membranes, No rhinorrhea Neck: Supple, Nontender Cardiovascular: Regular rhythm, No murmurs, Tachycardia, - - 2+ radial pulses bilaterally symmetric. Chest is nontender with no evidence of vesicular rash. Respiratory: No distress, CTA bilaterally, Chest nontender Abdomen: Soft, Nontender, Nondistended, Normal bowel sounds Back: Nontender, Normal Inspection Extremities: Nontender, No edema Skin: Normal color, No rash Neurological: Alert, Oriented x3, Cranial nerves II-XII grossly intact, Normal Strength, Normal Sensation Psychological: Normal affect, Normal Mood Diagnostic/Tx/Re-eval Chest X-Ray - ED: 2 View, Read by ED Physician, Read by Radiologist, Normal Clinical Impression(s) from Imaging Studies Chest X-Ray 01/13/20 17:00 IMPRESSION: No definite acute or significant abnormality seen. Electronically Signed: Bimal Valera MD at 17:21 EDT , Service support , Laboratory Data 01/13/20 01/13/20 16:50 16:50 WBC 8.7 RBC 4.45 Hgb 13.7 Hct 42.7 MCV 96.0 MCH 30.8 MCHC 32.1 RDW Std Deviation 47.1 H RDW Coeff of Rosamaria 13.2 Plt Count 379 MPV 9.5 Immature Gran % (Auto) 0.200 Neut % (Auto) 48.6 Lymph % (Auto) 40.6 Ocean % (Auto) 7.2 Eos % (Auto) 2.9 Baso % (Auto) 0.5 Absolute Neuts (auto) 4.2 Absolute Lymphs (auto) 3.52 Nucleated RBC % 0 Sodium 142 Potassium 3.7 Chloride 104 Carbon Dioxide 30.0 Anion Gap 8 BUN 21 H Creatinine 1.13 H Estim Creat Clear Calc 43.47 Est GFR (MDRD) Af Amer 62 Est GFR (MDRD) Non-Af 51 L BUN/Creatinine Ratio 18.6 Glucose 121 H Calcium 9.2 Troponin I < 0.015 - EKG Initial EKG Interpretation: - - Sinus tachycardia with a rate of 110, isoelectric ST segments normal T waves no evidence of acute ischemia. No gross changes from prior EKG in December of this year. - Medical Decision Making Patient presented for evaluation secondary to chest pain. EKG demonstrated some sinus tachycardia but no evidence of ischemic changes. PA and lateral chest x- ray by my personal review as well as radiology found to be negative. CBC chemistry and troponin found to be negative. Patient was administered aspirin in the emergency department, did not have any adverse events. I reviewed the patient's records, she does have a history of it the end of December failing a stress test showing possible mild anterior ischemia. Her heart score is 5. Patient is currently chest pain-free, and had a negative cardiac enzyme despite stating she was having intermittent chest pain all day. Patient's case was discussed with cardiology, Dr. Montana, and after discussing the case we are in agreement that given the patient's risk factors that she would benefit from admission and cardiac catheterization tomorrow. He requested the patient be given 300 of Plavix. Patient will be admitted under the hospitalist. ED Disposition - Plan for ED Patient: Disposition: Acute Care Hospital [facility] Diagnosis: Chest pain, Hypertension, Coronary artery disease Referrals: Yoanna Hull MD [Primary Care Provider] -
[2020-01-13 17:35] LABS: Anion Gap 8 (5-15); BUN 21 mg/dL (7-18); BUN/Creat Ratio 18.6 RATIO (10-20); Calcium,Total 9.2 mg/dL (8.5-10.1); Chloride 104 mmol/L (98-107); Creatinine, Serum 1.13 mg/dL (0.55-1.02); EST Glomerular Filtration Rate 51 mL/min (>60); Est Glom Filt Rate - Afr Amer 62 mL/min (>60); Estimated Creatinine Clearance 43.47 ml/min; Glucose 121 mg/dL (74-106); Potassium 3.7 mmol/L (3.5-5.1); Sodium Level 142 mmol/L (136-145)
--- NOTE | 2020-01-13 18:41 | PCM.HP.STD ---
Problem List (1) Chest pain Status: Acute History of Present Illness Date of Admission: 01/13/20 Chief Complaint: chest pain The patient is a 69 year old F who presented to the ED for CP that started this am at about 11. She states that it radiates through her chest to her back and is associated with heaviness and tightness down her L arm. She was driving at the time that it started and reoccurred about 4 more times prior to coming in to the ED. It is not associated with nausea or vomiting, but does complain that she has been more winded than usual and has had more fatigue. She states that she came to the ED about 1 month ago with CP and that she was sent home with f/u for Dr. Stein. He saw her on 12/21 and ordered a stress test which was done on 01/06. the nuclear stress test was positive for some possible anterior ischemia and a cardiac cath was schedule for 01/24/2020. Her EKG done here today is not indicative of any acute ischemic event and her initial troponin is negative. Her lab work shows some mild LONNIE today but is otherwise unremarkable. The ED discussed her case with Dr. Montana from cardiology and he would like her admitted for cardiac cath to be done tomorrow. She is currently asymptomatic. Past Medical History Past Medical History (Chronic Problems): Chronic Problems (Last Reviewed 01/13/20 @ 18:[address] Oksana Burrell DO) Hypertension (Chronic) Essential (primary) hypertension (Chronic) Roman esophagus (Chronic) Hypothyroidism (Chronic) Adrenal insufficiency (Chronic) MGUS (monoclonal gammopathy of unknown significance) (Chronic) CSA (central sleep apnea) (Chronic) Asthma (Chronic) Medical History: Medical History (Last Reviewed 01/13/20 @ 18:[address] Oksana Burrell DO) Essential (primary) hypertension (Chronic) I10 Roman esophagus (Chronic) K22.70 Hypothyroidism (Chronic) E03.9 Adrenal insufficiency (Chronic) E27.40 MGUS (monoclonal gammopathy of unknown significance) (Chronic) D47.2 CSA (central sleep apnea) (Chronic) G47.31 Asthma (Chronic) J45.909 Adenomatous polyps D36.9 Airway polyps J98.8 Arthritis M19.90 BMI greater than 40 Back pain M54.9 Basal cell carcinoma C44.91 Chronic pain G89.29 Depression F32.9 Difficulty balancing R29.818 FH: colon cancer in first degree relative <60 years old Z80.0 possible in sister in her 20s, pt knows she had polyps and had chemo, but not really sure of exact diagnosis Fatigue R53.83 GERD (gastroesophageal reflux disease) K21.9 Hay fever J30.1 Hypersomnia G47.10 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 Limb weakness R29.898 Migraines G43.909 Obesity E66.9 Osteoarthritis M19.90 Osteopenia M85.80 Rheumatoid arthritis M06.9 Seizures R56.9 Type 1 diabetes mellitus E10.9 Vitamin D deficiency E55.9 Abnormal bowel movement R19.8 Acute bronchitis J20.9 Bilateral lower extremity edema R60.0 Bronchitis J40 Cellulitis of right lower leg L03.115 Hypokalemia E87.6 Low magnesium level R79.0 Otitis media (Resolved) H66.90 Pneumonia J18.9 SOB (shortness of breath) R06.02 Sinusitis J32.9 URI, acute J06.9 Dyspnea R06.00 Healthcare maintenance Z00.00 Allergies phenytoin sodium [From Dilantin] Allergy (Mild, Verified 12/22/19 12:35) Rash phenytoin sodium extended [From Dilantin] Allergy (Mild, Verified 12/22/19 12:35) Rash ketorolac tromethamine [From Toradol] Allergy (Verified 12/22/19 12:35) Anaphylaxis morphine Adverse Reaction (Severe, Verified 12/22/19 12:35) Other not effective, confusion Honey Dew Melon Adverse Reaction (Uncoded 12/22/19 12:35) Food Allergy Home Medications: Ambulatory Orders Medication Instructions Recorded Ergocalciferol [Vitamin D] 50,000 unit PO ROSAS 11/02/15 folic acid 0.8 mg capsule 0.8 mg PO DAILY 07/14/18 hydroxychloroquine 200 mg tablet 200 mg PO BID tab 09/01/18 thyroid (pork) 30 mg tablet 30 mg PO DAILY 08/24/19 sucralfate 1 gram tablet 1 g PO QACHS PRN #90 tab 11/23/19 amiloride 5 mg-hydrochlorothiazide 0.5 tab PO QDAY tab 12/22/19 50 mg tablet cyclobenzaprine 10 mg tablet mg PO 12/22/19 methotrexate (PF) 7.5 mg/0.15 mL 0.5 mg SC .thur ml 12/22/19 subcutaneous auto-injector pantoprazole 40 mg tablet,delayed 40 mg PO BID tab 12/22/19 release aspirin 81 mg tablet,delayed 81 mg PO DAILY 01/12/20 release Amitriptyline HCl 10 mg PO QHS 01/13/20 Budesonide/Formoterol 160/4.5 2 puff INHALATION BID 01/13/20 [Symbicort 160/4.5 Mcg Inhaler (SP)] Buprenorphine 7.5 mcg TP TU 01/13/20 Bupropion HCl 200 mg PO BID 01/13/20 Celecoxib [Celebrex] 200 mg PO DAILY 01/13/20 Cholecalciferol (Vitamin D3) 2,000 unit PO DAILY 01/13/20 [Vitamin D3] Multivitamin with Minerals 1 tab PO DAILY 01/13/20 [Multiple Vitamin] Potassium Chloride [K-Tab ER] 20 meq PO DAILY 01/13/20 Surgical History: Surgical History (Last Reviewed 01/13/20 @ 18:[address] 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 Oksana Burrell DO) Father Cancer Mother Osteoarthritis COPD (chronic obstructive pulmonary disease) Dementia Brother Myocardial infarction, Onset Age: 49 Aunt Multiple sclerosis Sister Colon cancer Aunt Celiac disease History Items: No pertinent history Paternal Family History: Family History (Last Reviewed 01/13/20 @ 19:[address] Oksana Burrell DO) Father Cancer Mother Osteoarthritis COPD (chronic obstructive pulmonary disease) Dementia Brother Myocardial infarction, Onset Age: 49 Aunt Multiple sclerosis Sister Colon cancer Aunt Celiac disease History Items: No pertinent history Review of Systems Constitutional: Denies: Anorexia, Chills, Fever, Night Sweats, Malaise, Weight Change, Fatigue Eyes: Denies: Blurred vision, Cataracts, Conjunctivae Inflammation, Double vision, Drainage, Eyelid Inflammation, Pain, Redness, Vision Change HEENT: Denies: Difficulty Hearing, Difficulty Swallowing, Dysphasia, Ear Pain, Eye Pain, Hard of Hearing, Head Aches, Hearing Changes, Nasal bleeding, Nasal Congestion, Post Nasal Drip, Sinus Congestion, Sinus Drainage, Sore Throat, Visual Changes Cardiovascular: Reports: Chest Pain, Chest Pressure, Chest Tightness, Heaviness. Denies: Edema, Light Headedness, Orthopnea, Palpitations, Paroxysmal Noc. Dyspnea, Syncope Respiratory: Reports: Shortness of Breath, Shortness of breath upon exertion. Denies: Cough, Hemoptysis, Pleuritic Pain, Shortness of breath at rest, Sputum production, Wheezing Gastrointestinal: Denies: Abdominal Pain, Constipation, Diarrhea, Dyspepsia, Hematemesis, Hematochezia, Nausea, Melena, Vomiting Genitourinary: Denies: Dysuria, Frequency, Hematuria, Hesitancy, Incontinence, Nocturia, Retention, Urgency Gynecological: Denies: Breast symptoms, Vaginal bleeding, Vaginal discharge, Vaginal itching Musculoskeletal: Reports: Arm Pain, Neck Pain, Shoulder Pain. Denies: Back Pain, Joint Pain, Joint stiffness, Joint swelling, Joint Tenderness Skin: Denies: Dryness, Jaundice, Lesions, Pruritis, Rash, Skin Changes Neurological: Reports: Numbness, Tingling, Seizures. Denies: Balance problems, Blurred vision, Double vision, Change in Speech, Slurred speech, Confusion, Difficulty swallowing, Focal weakness, Headaches, Incoordination, Tremor Psychiatric: Denies: Anxiety, Depression, Homicidal Ideations, Suicidal Ideations Endocrine: Denies: Change in Body Habitus, Heat/ Cold Intolerance, Polydipsia, Polyuria, Hx of Irradiation, Hx of Thyroiditis Hematologic/ Lymphatic: Denies: Adenopathy, Anemia, Easy Bruising, Easy Bleeding, Petechiae, Purpura, Hx of blood clot, Hx of blood transfusion VTE Information - Inpt Only VTE Present on Admission: No VTE Mechan Device Prophylaxis: SCD's VTE Pharm Prophylaxis ordered?: No Patient Problems: Active and Suspected Problems (Last Reviewed 01/13/20 @ 18:[address] Oksana Burrell, DO) Coronary artery disease (Acute) Chest pain (Acute) - Physical Exam Vitals/I&O's: Vital Signs Temp Pulse Resp BP Pulse Ox 97.9 F 96 18 149/77 H 96 01/13/20 16:24 01/13/20 18:28 01/13/20 18:28 01/13/20 18:28 01/13/20 18:28 Oxygen Delivery Method Room Air Weight: 115.666 kg Body Mass Index (BMI) 42.4 General: Alert, Oriented x3, Cooperative, No apparent distress, Well developed, Well nourished, - - obese female who appears younger than stated age HEENT: Atraumatic, PERRLA, EOMI, Normocephalic, TM's Clear Oral: Moist Mucosa, No Gingival or Mucosal Lesions/ Ulcerations, - - mallampati 2, fair dentition Neck: Supple, No JVD, Negative Carotid Bruits, Negative Hepatojugular Reflux, No Nodes, No Nuchal Rigidity, Trachea Midline, Thyroid Normal Size and Texture Lungs: Clear to auscultation, Normal air movement, No rhonchi, No wheeze, No rales Cardiovascular: Regular rate, Regular Rhythm, Normal S1, Normal S2, No murmurs, No Ectopic Activity, No rub noted, No Gallop Abdomen: Bowel Sounds Present, Soft, Non Tender, Non-Distended, No Hepato-splenomegaly, Bowel Sounds Not Present, No hernias noted Extremities: No clubbing, No cyanosis, No edema, Capillary Refill Less than 3 Seconds, Peripheral Pulses Normal Skin: No rashes, No breakdown Musculoskeletal: No Tenderness to Palpation of Joints or Extremities, No Muscle Wasting, - - well healed scars B knees Lymphatic: No Cervical, Supraclavicular, or Inguinal Adenopathy Neurological: Cranial nerves II-XII grossly intact, Deep Tendon Reflexes 2+/4 and Symmetrical, Neuro grossly intact, Motor Exam 5/5 strength throughout, Muscle tone normal, Sensory exam intact to light touch and pain, Coordination normal Psych/Mental Status: Normal Affect, Appropriate, Alert and oriented to time, place, person, mood and affect Laboratory Results 01/13/20 16:50: WBC 8.7, RBC 4.45, Hgb 13.7, Hct 42.7, MCV 96.0, MCH 30.8, MCHC 32.1, RDW Std Deviation 47.1 H, RDW Coeff of Rosamaria 13.2, Plt Count 379, MPV 9.5, Immature Gran % (Auto) 0.200, Neut % (Auto) 48.6, Lymph % (Auto) 40.6, [place] % (Auto) 7.2, Eos % (Auto) 2.9, Baso % (Auto) 0.5, Absolute Neuts (auto) 4.2, Absolute Lymphs (auto) 3.52, Nucleated RBC % 0 01/13/20 16:50: Sodium 142, Potassium 3.7, Chloride 104, Carbon Dioxide 30.0, Anion Gap 8, BUN 21 H, Creatinine 1.13 H, Estim Creat Clear Calc 43.47, Est GFR (MDRD) Af Amer 62, Est GFR (MDRD) Non-Af 51 L, BUN/Creatinine Ratio 18.6, Glucose 121 H, Calcium 9.2, Troponin I < 0.015 Current Medications Nitroglycerin (Nitrostat) 0.4 mg SUBLINGUAL Q5M PRN PRN Reason: Chest pain Assessment/Plan All Active Problems (Last Reviewed 01/13/20 @ 18:[address] Oksana Burrell, DO) Coronary artery disease (Acute) Chest pain (Acute) Dyspnea on minimal exertion (Acute) Lower extremity edema (Acute) Adrenal insufficiency (Resolved) Otitis media (Resolved) Chest pain -admit to PCU -pt with ?ant wall ischemia on Stress test 01/06 -AM cath per Cards -NPO after MN -cardiac diet -was loaded with Plavix and ASA in ED -ASA 81 mg in am -cycle troponins -repeat EKG per protocol -Consult cardiology LONNIE on CKD stage 2 -baseline sCr 0.8-0.9, currently 1.13 -will hydrate with NS at 75cc/hr -hold NSAID (Celebrex) -repeat in am -Hold HCTZ Insulin resistance -monitor BGT -may need SSI -take no meds at home ?H/O adrenal insufficiency -was on prednisone but now off -pt states that when she get sick she does take stress dosed steroids -hold steroids now Asthma -continue home meds Cervical Radiculopathy -continue home pain meds -hold flexeril RA -continue home meds -MTX injection due today Roman's Esophagus/GERD -continue BID PPI -Continue Carafate Hypothyroidism -continue home meds MARCELLA -CPAP--> uses Autopap at home but usually needs about 16cm H20 H/O Seizures -currently on no seizure meds Obesity -recommend wgt loss -pt admits to recent wgt gain DVT prophylaxis -low risk -SCD's Inpatient E&M: 92347 Init Hosp L3
[2020-01-13] MEDS: Clopidogrel Bisulfate 300 MG Tablet PO (18:43)
--- NOTE | 2020-01-13 19:28 | EKG12_ITS ---
Test Reason : ADMISSION Blood Pressure : / mmHG Vent. Rate : 093 BPM Atrial Rate : 093 BPM P-R Int : 176 ms QRS Dur : 090 ms QT Int : 362 ms P-R-T Axes : 057 046 058 degrees QTc Int : 450 ms Normal sinus rhythm Normal ECG When compared with ECG of 13-JAN-2020 16:25, MANUAL COMPARISON REQUIRED, DATA IS UNCONFIRMED Confirmed by CELI RENO, SHARMIN ([id number]), book editor RAY ESQUIVEL ([id number]) on 01/17/2020 1:39:28 PM Referred By: DR. LOPES Confirmed By:SHARMIN ALATORRE MD
[2020-01-13] MEDS: Budesonide Respules 0.5 MG/2 ML AMPUL.NEB. INHALATION (20:04)
[2020-01-13] MEDS: Albuterol 2.5 MG/3 ML VIAL.NEB. INHALATION (20:04)
--- NOTE | 2020-01-13 20:06 | CPS ---
Patient stated will bring own unit in tomorrow. Patient placed on 2l/m at night. Nurse at bedside.
[2020-01-13] MEDS: 0.9% Normal Saline 1,000 ML 75 ML IV (20:18)
[2020-01-13] MEDS: Pantoprazole Sodium 40 MG Tablet PO (20:18)
[2020-01-13] MEDS: 0.9% Saline Lock 10 ML Syringe IV (20:18)
[2020-01-13] MEDS: buPROPion 100 MG Tablet 200 MG PO (22:20)
[2020-01-13] MEDS: Mag Hydrox/Al Hydrox/Simeth 30 ML UDC PO (22:20)
[2020-01-13] MEDS: cycloBENZAPRine HCl 10 MG Tablet PO (22:22)
[2020-01-13] MEDS: Amitriptyline 10 MG Tablet PO (22:22)
[2020-01-13] MEDS: MELATONIN 10 MG TABLET PO (22:22)
[2020-01-13 22:31] LABS: Bedside Glucose 150 mg/dL (70-110)
[2020-01-14] VITALS (18 sets, daily range): BP systolic 105–151; BP diastolic 50–82; PULSE 79–102; RESP 16–20; TEMP 36.6–37.1; O2SAT 95–100
[2020-01-14 05:47] LABS: Absolute Lymphocyte Count 3.52 X10^3/uL (0.83-4.51); Absolute Neutrophil Count 2.6 X10^3/uL (2.0-7.7); Basophil# 0.05 X10^3/uL; Basophil% 0.7 % (0-1); Eosinophil# 0.24 X10^3/uL; Eosinophils% 3.4 % (0-5); Hemoglobin 12.4 g/dL (12.0-15.0); Lymphocyte # 3.52 X10^3/ul (4.0); Lymphocyte % 50.6 % (19-41); Mean Corpuscular Hgb 30.5 pg (27.0-32.0); Mean Corpuscular Volume 98.3 fL (81-99); Mean Platelet Vol. 9.5 fl (6.2-12.0); Monocyte# 0.51 X10^3/uL; Monocyte% 7.3 % (0-10); NRBC Flagged by Analyzer 0 % (0-5); Neutrophil # 2.62 X10^3/uL (2.7-7.7); Neutrophil % 37.7 % (47-70); Platelet Count 292 K/mm3 (150-450); RBC Distribution Width CV 13.5 % (11.6-14.6); RBC Distribution Width SD 48.2 fl (35.1-43.9); Red Blood Count 4.07 M/mm3 (4.2-5.4)
--- NOTE | 2020-01-14 05:55 | EKG12_ITS ---
Test Reason : AM EKG Blood Pressure : / mmHG Vent. Rate : 083 BPM Atrial Rate : 083 BPM P-R Int : 184 ms QRS Dur : 088 ms QT Int : 384 ms P-R-T Axes : 058 054 064 degrees QTc Int : 451 ms Normal sinus rhythm Normal ECG When compared with ECG of 13-JAN-2020 19:45, MANUAL COMPARISON REQUIRED, DATA IS UNCONFIRMED Confirmed by CELI RENO, SHARMIN ([id number]), brands editor RAY ESQUIVEL ([id number]) on 01/17/2020 1:37:55 PM Referred By: DR LOPES Confirmed By:SHARMIN ALATORRE MD
[2020-01-14 05:57] LABS: Prothrombin Time (Protime)PT. 12.5 SECONDS (11.7-14.9)
[2020-01-14 06:09] LABS: ALB/GLOB Ratio 0.9 RATIO (0.9-2.4); AST(SGOT) 18 U/L (15-37); Alanine Aminotransfer ALT/SGPT 31 U/L (13-56); Albumin, Serum 3.1 g/dL (3.2-5.0); Alkaline Phosphatase 106 U/L (45-117); Anion Gap 8 (5-15); BUN 19 mg/dL (7-18); BUN/Creat Ratio 20.3 RATIO (10-20); Calcium,Total 8.5 mg/dL (8.5-10.1); Chloride 108 mmol/L (98-107); Cholesterol 154 mg/dL (200); Creatinine, Serum 0.94 mg/dL (0.55-1.02); EST Glomerular Filtration Rate 63 mL/min (>60); Est Glom Filt Rate - Afr Amer 77 mL/min (>60); Estimated Creatinine Clearance 52.26 ml/min; Globulin 3.5 g/dL (2.2-4.2); Glucose 110 mg/dL (74-106); High Density Lipoprotein 45 mg/dL; Potassium 3.9 mmol/L (3.5-5.1); Protein, Total 6.6 g/dL (6.4-8.2); Sodium Level 141 mmol/L (136-145); Triglycerides 158 mg/dL; Very Low Density Lipoprotein 32 mg/dL (5-40)
[2020-01-14 06:31] LABS: Bedside Glucose 96 mg/dL (70-110)
[2020-01-14] MEDS: Budesonide Respules 0.5 MG/2 ML AMPUL.NEB. INHALATION (07:05)
[2020-01-14] MEDS: Albuterol 2.5 MG/3 ML VIAL.NEB. INHALATION ×2 (07:06→12:58)
--- NOTE | 2020-01-14 07:45 | CON.PCM_ITS ---
Reason for Consult Date of Consultation: 01/14/20 Reason for Consultation: Chest discomfort History of Present Illness: The patient is a 69 year old F who presented to the emergency room with chest discomfort. She stated that the pain started in her chest and radiated to her back associated with heaviness and tightness down her left arm. She was driving when it occurred. You do remember that she had presented to the emergency room approximately 6 weeks ago with similar chest discomfort. 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 Had seen me in the office and we thought it was atypical chest pain. A stress test was performed on which was positive for possible anterior ischemia. A cardiac catheterization was scheduled electively. She did present yesterday with chest discomfort was admitted. Her cardiac enzymes have been normal and her EKG has been normal. She has not had any recurrence. [] Past Medical History Allergies/Adverse Reactions: Allergies phenytoin sodium [From Dilantin] Allergy (Mild, Verified 12/22/19 12:35) Rash phenytoin sodium extended [From Dilantin] Allergy (Mild, Verified 12/22/19 12:35) Rash ketorolac tromethamine [From Toradol] Allergy (Verified 12/22/19 12:35) Anaphylaxis morphine Adverse Reaction (Severe, Verified 12/22/19 12:35) Other not effective, confusion Honey Dew Melon Adverse Reaction (Uncoded 12/22/19 12:35) Food Allergy Home Medications: Ambulatory Orders Medication Instructions Recorded Ergocalciferol [Vitamin D] 50,000 unit PO ROSAS 11/02/15 folic acid 0.8 mg capsule 0.8 mg PO BID 07/14/18 hydroxychloroquine 200 mg tablet 200 mg PO BID tab 09/01/18 thyroid (pork) 30 mg tablet 30 mg PO DAILY 08/24/19 sucralfate 1 gram tablet 1 g PO QACHS PRN #90 tab 11/23/19 amiloride 5 mg-hydrochlorothiazide 0.5 tab PO QDAY tab 12/22/19 50 mg tablet cyclobenzaprine 10 mg tablet 10 mg PO QHS 12/22/19 methotrexate (PF) 7.5 mg/0.15 mL 0.5 mg SC TH ml 12/22/19 subcutaneous auto-injector pantoprazole 40 mg tablet,delayed 40 mg PO BID tab 12/22/19 release aspirin 81 mg tablet,delayed 81 mg PO DAILY 01/12/20 release Amitriptyline HCl 10 mg PO QHS 01/13/20 Budesonide/Formoterol 160/4.5 2 puff INHALATION BID 01/13/20 [Symbicort 160/4.5 Mcg Inhaler (SP)] Buprenorphine 7.5 mcg TP TU 01/13/20 Bupropion HCl 200 mg PO BID 01/13/20 Celecoxib [Celebrex] 200 mg PO DAILY 01/13/20 Cholecalciferol (Vitamin D3) 2,000 unit PO DAILY 01/13/20 [Vitamin D3] Multivitamin with Minerals 1 tab PO DAILY 01/13/20 [Multiple Vitamin] Potassium Chloride [K-Tab ER] 20 meq PO DAILY 01/13/20 Past Medical History (Chronic Problems): Chronic Problems (Last Reviewed 01/13/20 @ 18:[address] Oksana Burerll DO) Hypertension (Chronic) Essential (primary) hypertension (Chronic) Roman esophagus (Chronic) Hypothyroidism (Chronic) Adrenal insufficiency (Chronic) MGUS (monoclonal gammopathy of unknown significance) (Chronic) CSA (central sleep apnea) (Chronic) Asthma (Chronic) Surgical History: no surgical history Psychiatric History: No pertinent psych hx [employer] History: No pertinent [employer] history - *Family History Maternal Family History: Family History (Last Reviewed 01/13/20 @ 19:[address] Oksana Burrell DO) Father Cancer Mother Osteoarthritis COPD (chronic obstructive pulmonary disease) Dementia Brother Myocardial infarction, Onset Age: 49 Aunt Multiple sclerosis Sister Colon cancer Aunt Celiac disease History Items: No pertinent history Paternal Family History: Family History (Last Reviewed 01/13/20 @ 19:[address] Oksana Burrell DO) Father Cancer Mother Osteoarthritis COPD (chronic obstructive pulmonary disease) Dementia Brother Myocardial infarction, Onset Age: 49 Aunt Multiple sclerosis Sister Colon cancer Aunt Celiac disease History Items: No pertinent history Smoking Status: Never smoker Alcohol: None, Rare Drugs: None Review of Systems - Review of Systems General: Denies: Fever, Night Sweats, Fatigue HEENT: Denies: Vision Change Cardiovascular: Denies: Chest Discomfort, Shortness of Breath, Orthopnea, PND, Peripheral Edema, Palpitations, Lightheadedness, Dizziness, Near Syncope, Syncope Respiratory: Denies: Cough, Sputum Production, Hemoptysis Gastrointestinal: Denies: Hematemesis, Hematochezia, Melena Genitourinary: Denies: Dysuria, Hematuria Muscoloskeletal: Denies: Myalgias Skin: Denies: Rash Neurological: Denies: Dizziness Psychiatric: Reports: Anxiety Endocrine: Denies: Unexplained Weight Loss Hematologic/ Lymphatic: Denies: Anemia Subjectve: Pleasant lady in no distress Objective: Vital Signs Temp Pulse Resp BP Pulse Ox 98.0 F 81 16 105/60 98 01/14/20 04:15 01/14/20 04:15 01/14/20 04:15 01/14/20 04:15 01/14/20 04:22 Oxygen Delivery Method Room Air Weight: 261 lb 7.492 oz Body Mass Index (BMI) 42.4 Intake and Output for Last 24 Hours 01/12/20 01/13/20 01/14/20 23:59 23:59 23:59 Intake Total 1096.25 / 1096.25 Balance 1096.25 / 1096.25 General: Awake, Alert, Oriented x 3 HEENT: PERRL, EOMI, Sclera Non Icteric Neck: Supple, Good ROM, No Lymph Node Enlargement Lungs: Clear to auscultation Cardiovascular: Regular Rhythm, Normal S1, Normal S2, No Murmurs, No Rubs, No Gallops Vascular: No Carotid Bruits, Normal Femoral Pulses, Normal Radial Pulses, Normal Dorsalis Pedal Pulse, Normal Posterior Tibial Pulses Abdomen: Bowel Sounds Present, Soft, Non Tender, No HSM, No Organomegaly Extremities: No Cyanosis, No Clubbing, No edema Musculoskeletal: No Erythema Skin: No Rashes Lymphatic: No Lymph Node Enlargement Neurological: No Focal Motor or Sensory Deficit 01/13/20 16:50: WBC 8.7, RBC 4.45, Hgb 13.7, Hct 42.7, MCV 96.0, MCH 30.8, MCHC 32.1, Plt Count 379, MPV 9.5, Immature Gran % (Auto) 0.200, Neut % (Auto) 48.6, Lymph % (Auto) 40.6, [place] % (Auto) 7.2, Eos % (Auto) 2.9, Baso % (Auto) 0.5, Absolute Neuts (auto) 4.2, Nucleated RBC % 0 01/13/20 16:50: Sodium 142, Potassium 3.7, Chloride 104, Carbon Dioxide 30.0, Anion Gap 8, BUN 21 H, Creatinine 1.13 H, Est GFR (MDRD) Af Amer 62, Est GFR (MDRD) Non-Af 51 L, BUN/Creatinine Ratio 18.6, Glucose 121 H, Calcium 9.2, Troponin I < 0.015 01/13/20 21:38: Troponin I < 0.015 01/14/20 00:25: Troponin I < 0.015 01/14/20 05:35: WBC 7.0, RBC 4.07 L, Hgb 12.4, Hct 40.0, MCV 98.3, MCH 30.5, MCHC 31.0 L, Plt Count 292, MPV 9.5, Immature Gran % (Auto) 0.300, Neut % (Auto) 37.7 L, Lymph % (Auto) 50.6 H, [place] % (Auto) 7.3, Eos % (Auto) 3.4, Baso % (Auto) 0.7, Absolute Neuts (auto) 2.6, Nucleated RBC % 0 01/14/20 05:35: PT 12.5, INR 1.0 01/14/20 05:35: Sodium 141, Potassium 3.9, Chloride 108 H, Carbon Dioxide 25.0, Anion Gap 8, BUN 19 H, Creatinine 0.94, Est GFR (MDRD) Af Amer 77, Est GFR (MDRD) Non-Af 63, BUN/Creatinine Ratio 20.3 H, Glucose 110 H, Calcium 8.5, Total Bilirubin 0.30, Troponin I < 0.015, Triglycerides 158, Cholesterol 154, LDL Cholesterol 77, VLDL Cholesterol 32, HDL Cholesterol 45 Rhythm: EKG: ECHO: Stress Test: Cardiac Cath: PCI: CT Surgery: Holter monitor: EPS: PPM: CXR: Chest CT Scan: Assessment/Plan 1. Chest pain * The patient presents with recurrent chest discomfort and a recent abnormal stress test. The patient was scheduled to undergo elective cardiac catheterization. As patient has presented again to the emergency room it is appropriate that the above procedure will be expedited. Risk benefits alternatives have been explained to her she understands and agrees to proceed. Depending on the findings further recommendations will be made. * 2. Hypertension * Good control plan is to continue current medical therapy without any major changes. * * Thank you for allowing me to participate in the care of your patient. Please don't hesitate to call if any issues arise. * * Addendum: Cardiac catheterization today demonstrated essentially normal coronary arteries. It is likely that the stress test was false positive due to breast attenuation artifact. I suspect her symptoms are probably largely due to her Roman's esophagus. I would refer her to the GI for further evaluation.
[2020-01-14] MEDS: Aspirin E.C. 81 MG Tablet PO (07:50)
[2020-01-14] MEDS: Pantoprazole Sodium 40 MG Tablet PO (07:50)
[2020-01-14] MEDS: Celecoxib 200 MG Capsule PO (07:51)
--- NOTE | 2020-01-14 08:38 | CL.D_ITS ---
Patient Name: MITCHELL MENON Study Date: 01/14/2020 Performing: Orlando Stein MD Ht: 65 inches 166 cm : 1950 Wt: 262.7 lbs 119 kg Age: 69 Gender: female BSA: 2.23 PROCEDURE(S) PERFORMED [id number]/LV CLINICAL PROFILE AND INDICATIONS Indications: Suspected CAD Heart Failure: None Stress/Imaging Date: 01/07/2020Stress Test with SPECT MPI: Positive Low Risk CAD Presentations: Symptom unlikely to be ischemic. CONCLUSIONS Normal coronary arteries Normal LV size, wall motion,and systolic function RECOMMENDATIONS Medical therapy DESCRIPTION OF PROCEDURE The patient arrived to the procedure lab. The risks and benefits of the procedure as well as a full d escription of our services here and current unavailability of surgical backup were fully explained to the patient and/or their significant other prior to the catheterization. The Timeout was completed, verifying the correct patient and procedure. The patient's procedural site was prepped and draped in the usual fashion. Local anesthetic was given subcutaneously to right groin region with Lidocaine 2%. Using a modified Seldinger technique, arterial access was obtained via the right femoral artery, a 5 Fr sheath was inserted. Left Coronary Artery selective angiography was performed in multiple views u sing a 5 Fr. JL4 catheter. Right Coronary Artery selective angiography was then performed in multiple views using a 5 Fr. 3DRC (Nilson) catheter. Left Ventriculography was performed in WALLACE projection using a 5 Fr. Pigtail catheter. LV to AO pullback pressures were then recorded.Contrast was injected through the sheath and the Right Iliac and Femoral artery were assessed for possible violet sure device.The arterial sheath was pulled and a Mynx closure device was deployed for hemostasis CORONARY ANGIOGRAPHY DOMINANCE: Right Dominant LEFT HEART ASSESSMENT Left Ventricular Ejection Fraction: by LV Gram 60 % Normal LV wall motion Normal Left Ventricular systolic function Normal Left Ventricular systolic function LEFT MAIN: Angiographically normal LEFT ANTERIOR DESCENDING ARTERY: Angiographically normal CIRCUMFLEX ARTERY: Angiographically normal RIGHT CORONARY ARTERY: Angiographically normal COMPLICATIONS No Complications PROCEDURE MEDICATIONS Versed 1 mg IV Fentanyl 50 mcg IV Oxygen: 2 L/min via nasal cannula SUMMARY OF HEMODYNAMIC DATA Time AIR REST ECG 08:06:15 AO 145/82 (109) SA 08:12:26 LV 111/9, 16 08:18:07 LV 120/14, 21 08:18:45 LV 116/13, 18 08:18:51 LVp 117/14, 20 08:18:54 AOp 110/56 (80) 08:18:59 Signed By Orlando Stein MD On 01/14/2020 08:37:43 Orlando Stein MD
--- NOTE | 2020-01-14 10:35 | DCINST_ITS ---
- Discharge Diagnoses Current Active Problems: Current Active and Chronic Problems (Last Reviewed 01/14/20 @ 08:54 by Niesha Wadsworth) Hypertension (Chronic) Coronary artery disease (Acute) Chest pain (Acute) You will use the following diet at home:: Cardiac Your food should be the consistency of: Regular Discharge Activity: May Not Drive Call your doctor if you observe: Fever of 101 or Higher, Numbness or Tingling, Inability to urinate, Shortness of breath, Dizziness, Fainting spells, Swelling in the ankles, Increased palpitations (irregular heartbeat), Calf discomfort, Uncontrolled pain Allergies/Adverse Reactions: Allergies phenytoin sodium [From Dilantin] Allergy (Mild, Verified 12/22/19 12:35) Rash phenytoin sodium extended [From Dilantin] Allergy (Mild, Verified 12/22/19 12:35) Rash ketorolac tromethamine [From Toradol] Allergy (Verified 12/22/19 12:35) Anaphylaxis morphine Adverse Reaction (Severe, Verified 12/22/19 12:35) Other not effective, confusion Honey Dew Melon Adverse Reaction (Uncoded 12/22/19 12:35) Food Allergy Medications to take at Discharge Ergocalciferol [Vitamin D] 50,000 unit PO ROSAS 11/02/15 folic acid 0.8 mg capsule 0.8 mg PO BID 07/14/18 hydroxychloroquine 200 mg tablet 200 mg PO BID tab 09/01/18 thyroid (pork) 30 mg tablet 30 mg PO DAILY 08/24/19 sucralfate 1 gram tablet 1 g PO QACHS PRN #90 tab 11/23/19 amiloride 5 mg-hydrochlorothiazide 50 mg tablet 0.5 tab PO QDAY tab 12/22/19 cyclobenzaprine 10 mg tablet 10 mg PO QHS 12/22/19 methotrexate (PF) 7.5 mg/0.15 mL subcutaneous auto-injector 0.5 mg SC TH ml 12/22/19 pantoprazole 40 mg tablet,delayed release 40 mg PO BID tab 12/22/19 aspirin 81 mg tablet,delayed release 81 mg PO DAILY 01/12/20 Amitriptyline HCl 10 mg PO QHS 01/13/20 Budesonide/Formoterol 160/4.5 [Symbicort 160/4.5 Mcg Inhaler (SP)] 2 puff INHALATION BID 01/13/20 Buprenorphine 7.5 mcg TP TU 01/13/20 Bupropion HCl 200 mg PO BID 01/13/20 Celecoxib [Celebrex] 200 mg PO DAILY 01/13/20 Cholecalciferol (Vitamin D3) [Vitamin D3] 2,000 unit PO DAILY 01/13/20 Multivitamin with Minerals [Multiple Vitamin] 1 tab PO DAILY 01/13/20 Potassium Chloride [K-Tab ER] 20 meq PO DAILY 01/13/20 Primary Care Physician: Yoanna Hull MD [Primary Care Provider] - Please follow up with your Primary Care Physician in: in 2 weeks Test Results: Test results from this visit will be discussed in further detail at your follow- up appointment, if applicable. Please Follow Up With: Orlando Stein MD When: in 4 weeks
--- NOTE | 2020-01-14 10:36 | PCM.DC.SUM ---
Discharge Date and Diagnosis - Problem List Patient Problems: Active and Suspected Problems (Last Reviewed 01/14/20 @ 08:54 by Niesha Wadsworth) Coronary artery disease (Acute) Chest pain (Acute) Date of Admission: 01/13/20 Date of Discharge: 01/14/20 - Primary Discharge Diagnosis Acute Problems: Active Problems (Last Reviewed 01/14/20 @ 08:54 by Niesha Wadsworth) Coronary artery disease (Acute) Chest pain (Acute) - Secondary Discharge Diagnosis Chronic Problems: Chronic Problems (Last Reviewed 01/14/20 @ 08:54 by Niesha Wadsworth) Hypertension (Chronic) Essential (primary) hypertension (Chronic) Roman esophagus (Chronic) Hypothyroidism (Chronic) Adrenal insufficiency (Chronic) MGUS (monoclonal gammopathy of unknown significance) (Chronic) CSA (central sleep apnea) (Chronic) Asthma (Chronic) Hospital Course and Treatment Summary of Care Provided: The patient is a 69 year old F who is admitted with chest pain on exertion for few weeks that progressed severe yesterday shortness of breath and fatigue and admitted in ER. Patient had a stress test done on 529 suggestive of possible anterior wall ischemia and cardiac cath was scheduled for 01/24/2020 but it was done 01/14/2020 when she was admitted in PCU. [] EKG shows no acute ST-T changes suggestive of ischemia. Serial troponin enzymes negative. Cardiac cath shows normal LV wall motion, systolic function and angiographically normal coronary arteries. EF by LV gram 60%. Patient blood pressures slightly elevated after holding patient amiloride?HCTZ, can resume from tomorrow a.m. On hydralazine 10 mg IV for acute control. Lipid profile within normal limit. Patient also has mild increase in creatinine 1.13 at time of admission with decrease 0.94 but does not meet criteria for acute kidney injury. She has CKD stage II. LONNIE ruled out. Other comorbidities include insulin resistance with mild hyperglycemia but no clinical diagnosis of diabetes mellitus.. Other comorbidities include hypothyroidism, Roman's esophagus, mild adrenal insufficiency, MGUS, asthma: Currently all stable. Patient was admitted as inpatient but was discharged because of sooner recovery than expected. Discharge medication reconciliation done. Discharge follow-up instructions completed. Discharge process discussed with the patient and all questions were answered to patient's satisfaction. Total time spent, exact 35 minutes on discharge meds reconciliation, examination, coordination of care with nurses and ancillary staff, review of imaging and blood test and discussion with the patient on follow-up instructions Patient Problems: Active and Suspected Problems (Last Reviewed 01/14/20 @ 08:54 by Niesha Wadsworth) Coronary artery disease (Acute) Chest pain (Acute) Objective: Seen and examined. Patient has ongoing chest pain on exertion for a few weeks prior to admission. Chest pain radiated to back along with tightness rating to left arm. Patient was seen by media relations manager Dr. lyles and was taken to cardiac cath. Patient also had abnormal stress test on 01/06 reported as possible anterior ischemia. - Physical Exam Vitals/I&O's: Vital Signs Temp Pulse Resp BP Pulse Ox 97.8 F 82 18 134/50 H 97 01/14/20 07:57 01/14/20 10:00 01/14/20 10:00 01/14/20 10:00 01/14/20 10:00 Oxygen Delivery Method Room Air Weight: 261 lb 7.492 oz Body Mass Index (BMI) 42.4 Intake and Output for Last 24 Hours 01/12/20 01/13/20 01/14/20 23:59 23:59 23:59 Intake Total 1096.25 / 1096.25 Balance 1096.25 / 1096.25 General: Alert, Oriented x3, Cooperative HEENT: Atraumatic, PERRLA, EOMI, Normocephalic Neck: Supple, No JVD, Negative Carotid Bruits Lungs: Clear to auscultation, Normal air movement, No rhonchi, No wheeze, No rales Cardiovascular: Regular rate, Regular Rhythm, Normal S1, Normal S2, No murmurs Abdomen: Bowel Sounds Present, Soft, Non Tender, Non-Distended Extremities: Capillary Refill Less than 3 Seconds, Edema Skin: No rashes, No breakdown, - - Right groin femoral artery cardiac cath access site?no hematoma or bruise. Musculoskeletal: No Tenderness to Palpation of Joints or Extremities, Arthritic Changes Neurological: Cranial nerves II-XII grossly intact, Deep Tendon Reflexes 2+/4 and Symmetrical, Neuro grossly intact Psych/Mental Status: Normal Affect, Appropriate Laboratory Results 01/13/20 16:50: WBC 8.7, RBC 4.45, Hgb 13.7, Hct 42.7, MCV 96.0, MCH 30.8, MCHC 32.1, RDW Std Deviation 47.1 H, RDW Coeff of Rosamaria 13.2, Plt Count 379, MPV 9.5, Immature Gran % (Auto) 0.200, Neut % (Auto) 48.6, Lymph % (Auto) 40.6, [place] % (Auto) 7.2, Eos % (Auto) 2.9, Baso % (Auto) 0.5, Absolute Neuts (auto) 4.2, Absolute Lymphs (auto) 3.52, Nucleated RBC % 0 01/13/20 16:50: Sodium 142, Potassium 3.7, Chloride 104, Carbon Dioxide 30.0, Anion Gap 8, BUN 21 H, Creatinine 1.13 H, Estim Creat Clear Calc 43.47, Est GFR (MDRD) Af Amer 62, Est GFR (MDRD) Non-Af 51 L, BUN/Creatinine Ratio 18.6, Glucose 121 H, Calcium 9.2, Troponin I < 0.015 01/13/20 21:38: Troponin I < 0.015 01/13/20 22:19: POC Glucose 150 H 01/14/20 00:25: Troponin I < 0.015 01/14/20 05:35: WBC 7.0, RBC 4.07 L, Hgb 12.4, Hct 40.0, MCV 98.3, MCH 30.5, MCHC 31.0 L, RDW Std Deviation 48.2 H, RDW Coeff of [place] 13.5, Plt Count 292, MPV 9.5, Immature Gran % (Auto) 0.300, Neut % (Auto) 37.7 L, Lymph % (Auto) 50.6 H, [place] % (Auto) 7.3, Eos % (Auto) 3.4, Baso % (Auto) 0.7, Absolute Neuts (auto) 2.6, Absolute Lymphs (auto) 3.52, Nucleated RBC % 0 01/14/20 05:35: PT 12.5, INR 1.0 01/14/20 05:35: Sodium 141, Potassium 3.9, Chloride 108 H, Carbon Dioxide 25.0, Anion Gap 8, BUN 19 H, Creatinine 0.94, Estim Creat Clear Calc 52.26, Est GFR (MDRD) Af Amer 77, Est GFR (MDRD) Non-Af 63, BUN/Creatinine Ratio 20.3 H, Glucose 110 H, Calcium 8.5, Total Bilirubin 0.30, AST 18, ALT 31, Alkaline Phosphatase 106, Troponin I < 0.015, Total Protein 6.6, Albumin 3.1 L, Globulin 3.5, Albumin/Globulin Ratio 0.9, Triglycerides 158, Cholesterol 154, LDL Cholesterol 77, VLDL Cholesterol 32, HDL Cholesterol 45 01/14/20 06:23: POC Glucose 96 Current Medications Acetaminophen (Tylenol) 650 mg PO Q6H PRN PRN PRN Reason: Pain Score 1-10/Temp > 100.7 F Al Hydroxide/Mg Hydroxide (Mylanta Ii) 30 ml PO Q6H PRN PRN PRN Reason: Gastric Burning Last Admin: 01/13/20 22:20 Dose: 30 ml Documented by: Albuterol Sulfate (Ventolin Aerosols) 2.5 mg INHALATION Q6HWA.RT [facility] Last Admin: 01/14/20 07:06 Dose: 2.5 mg Documented by: Albuterol/Ipratropium (Duoneb) 3 ml INHALATION Q6H PRN PRN Reason: shortness of breath or wheezing Asthma J45.909 Amitriptyline HCl (Elavil) 10 mg PO QHS [facility] Last Admin: 01/13/20 22:22 Dose: 10 mg Documented by: Budesonide (Pulmicort Aerosol) 0.5 mg INHALATION Q12H.RT [facility] Last Admin: 01/14/20 07:05 Dose: 0.5 mg Documented by: Bupropion HCl (Wellbutrin Tablets) 200 mg PO BID [facility] Last Admin: 01/13/20 22:20 Dose: 200 mg Documented by: Bupropion HCl (Wellbutrin Tablets) 200 mg PO BID [facility] Calcium Carbonate (Tums) 1,000 mg PO Q4H PRN PRN PRN Reason: DYSPEPSIA Celecoxib (Celebrex) 200 mg PO DAILY [facility] Last Admin: 01/14/20 07:51 Dose: 200 mg Documented by: Cholecalciferol (Vitamin D (25mcg)) 2,000 unit PO DAILY [facility] Cyclobenzaprine HCl (Flexeril) 10 mg PO QHS [facility] Last Admin: 01/13/20 22:22 Dose: 10 mg Documented by: Dextrose (D50w Syringe) 0 gm IV X1 PRN; Protocol PRN Reason: Hypoglycemia Folic Acid (Folic Acid) 1 mg PO DAILY@0800 [facility] Glucagon () 1 mg IM .X1 PRN PRN Reason: Hypoglycemia Heparin Sodium (Beef Lung) (Heparin 500 Unit/5 Ml (100/Ml)) 500 unit IV UD PRN PRN Reason: HEPARIN FLUSH Hydralazine HCl (Apresoline Iv) 5 mg IV Q4H PRN PRN PRN Reason: SBP more than 160 mmHg Hydroxychloroquine Sulfate (Plaquenil) 200 mg PO BIDCM [facility] Sodium Chloride () 1,000 mls @ 75 mls/hr IV .[id number] [facility] Last Infusion: 01/13/20 23:59 Dose: 75 mls/hr Documented by: Sodium Chloride () 250 mls @ 15 mls/hr IV .[id number] PRN PRN Reason: Saline Flush Sodium Chloride () 250 mls @ 15 mls/hr IV .[id number] PRN PRN Reason: Additional IVPB Infusion Sodium Chloride () 1,000 mls @ 0 mls/hr IV .Q0M [facility] Labetalol HCl (Trandate) 5 mg IV X1 PRN PRN Reason: SBP > 160 PRIOR TO SHEATH PULL Melatonin (Melatonin) 10 mg PO QHS [facility] Last Admin: 01/13/20 22:22 Dose: 10 mg Documented by: Multivitamins (Multivitamin) 1 tablet PO DAILY@0800 [facility] Nitroglycerin (Nitrostat) 0.4 mg SUBLINGUAL Q5M PRN PRN Reason: Chest pain Nitroglycerin (Nitrostat) 0.4 mg SUBLINGUAL Q5M PRN PRN Reason: CARDIAC/CHEST PAIN Pantoprazole Sodium (Protonix) 40 mg PO BID [facility] Last Admin: 01/14/20 07:50 Dose: 40 mg Documented by: Potassium Chloride (K-Dur) 20 meq PO DAILY [facility] Sodium Chloride () 10 - 40 ml IV UD PRN PRN Reason: SALINE FLUSH Last Admin: 01/13/20 20:18 Dose: 10 ml Documented by: Sucralfate (Carafate) 1 gm PO 1HR_ACHS PRN PRN Reason: HOARSENESS Thyroid ([place]ida Thyroid) 30 mg PO DAILY [facility] Discharge Activity: May Not Drive Call your doctor if you observe: Fever of 101 or Higher, Numbness or Tingling, Inability to urinate, Shortness of breath, Dizziness, Fainting spells, Swelling in the ankles, Increased palpitations (irregular heartbeat), Calf discomfort, Uncontrolled pain Home Medications: Medications to take at Discharge Ergocalciferol [Vitamin D] 50,000 unit PO ROSAS 11/02/15 folic acid 0.8 mg capsule 0.8 mg PO BID 07/14/18 hydroxychloroquine 200 mg tablet 200 mg PO BID tab 09/01/18 thyroid (pork) 30 mg tablet 30 mg PO DAILY 08/24/19 sucralfate 1 gram tablet 1 g PO QACHS PRN #90 tab 11/23/19 amiloride 5 mg-hydrochlorothiazide 50 mg tablet 0.5 tab PO DAILY tab 12/22/19 cyclobenzaprine 10 mg tablet 10 mg PO QHS 12/22/19 methotrexate (PF) 7.5 mg/0.15 mL subcutaneous auto-injector 0.5 mg SC TH ml 12/22/19 pantoprazole 40 mg tablet,delayed release 40 mg PO BID tab 12/22/19 aspirin 81 mg tablet,delayed release 81 mg PO DAILY 01/12/20 Amitriptyline HCl 10 mg PO QHS 01/13/20 Budesonide/Formoterol 160/4.5 [Symbicort 160/4.5 Mcg Inhaler (SP)] 2 puff INHALATION BID 01/13/20 Buprenorphine 7.5 mcg TP TU 01/13/20 Bupropion HCl 200 mg PO BID 01/13/20 Celecoxib [Celebrex] 200 mg PO DAILY 01/13/20 Cholecalciferol (Vitamin D3) [Vitamin D3] 2,000 unit PO DAILY 01/13/20 Multivitamin with Minerals [Multiple Vitamin] 1 tab PO DAILY 01/13/20 Potassium Chloride [K-Tab ER] 20 meq PO DAILY 01/13/20 Primary Care Physician: Yoanna Hull MD [Primary Care Provider] - Please follow up with your Primary Care Physician in: in 2 weeks Please Follow Up With: Orlando Lyles MD When: in 4 weeks Medical Necessity - Tobacco Use Smoking Status: Never smoker Meaningful Use Info Meaningful Use Diagnoses (Choose all that apply): None applicable Inpatient E&M: [id number] [facility]
--- NOTE | 2020-01-14 11:19 | PHA.DC.MR ---
Pharmacy Service has performed discharge medication reconciliation for this patient. No new medications were issued this visit. Medications reviewed are from previously reported home medications. The patient's discharge medication list was reviewed for discrepancies and discrepancies were resolved. Home Medications Ergocalciferol [Vitamin D] 50,000 unit PO ROSAS 11/02/15 folic acid 0.8 mg capsule 0.8 mg PO BID 07/14/18 hydroxychloroquine 200 mg tablet 200 mg PO BID tab 09/01/18 thyroid (pork) 30 mg tablet 30 mg PO DAILY 08/24/19 sucralfate 1 gram tablet 1 g PO QACHS PRN #90 tab 11/23/19 amiloride 5 mg-hydrochlorothiazide 50 mg tablet 0.5 tab PO DAILY tab 12/22/19 cyclobenzaprine 10 mg tablet 10 mg PO QHS 12/22/19 methotrexate (PF) 7.5 mg/0.15 mL subcutaneous auto-injector 0.5 mg SC TH ml 12/22/19 pantoprazole 40 mg tablet,delayed release 40 mg PO BID tab 12/22/19 aspirin 81 mg tablet,delayed release 81 mg PO DAILY 01/12/20 Amitriptyline HCl 10 mg PO QHS 01/13/20 Budesonide/Formoterol 160/4.5 [Symbicort 160/4.5 Mcg Inhaler (SP)] 2 puff INHALATION BID 01/13/20 Buprenorphine 7.5 mcg TP TU 01/13/20 Bupropion HCl 200 mg PO BID 01/13/20 Celecoxib [Celebrex] 200 mg PO DAILY 01/13/20 Cholecalciferol (Vitamin D3) [Vitamin D3] 2,000 unit PO DAILY 01/13/20 Multivitamin with Minerals [Multiple Vitamin] 1 tab PO DAILY 01/13/20 Potassium Chloride [K-Tab ER] 20 meq PO DAILY 01/13/20
--- NOTE | 2020-01-14 11:25 | CASEMGMT ---
RN ANTONIETA KINDERGARTEN TEACHER ASSISTANT CM to room to meet with patient for initial transition planning/care coordination assessment. MARIELLA FUNG introduced self and role at [facility]. Pt voices understanding and consents to assessment at this time. Pt resting in bed in no distress at this time. Pt is A/O at this time and answers all questions appropriately. Care providers, pharmacy, and demographics verified/updated at this time. PCP: Dr Hull Specialists: Dr Stein--cardiology, Dr Nunez--pulmonology, Dr Kaba-endocrinology/[place], Dr Stevens--receiving teller, Dr Gomez--GI Preferred Pharmacy: [facility] Insurance: [facility], MMO Prescription Benefit: Yes Living Will/HPOA: Pt has LW and Healthcare POA, who is her son, Jose L Dejesus. Pt made aware these are not found on e-file @ [facility]. LNOK: SonJose L Living Arrangements: Lives with boyfriend in a cabin. States is independent. Ambulates independently most times, but occasionally will use a cane or walking stick on uneven surfaces. Transportation: Pt states drives self and states no transportation concerns at this time. States her boyfriend will take her home @ d/c. DME: States has the following DME: CPAP from [employer], nebulizer, cane. Pt states no need for further DME at this time. HHC/SNF: No history of either and no needs identified. Denies need for HHC or OP therapy. Pt wishes to return home and states has no concerns with going home at time of discharge. 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 CM to follow for any discharge planning/needs. Pt voices no concerns/needs at this time. Advised pt to ask for CM if any questions/concerns/needs arise. Voices understanding. PLAN: Home Anabela CARR RN, CM
[2020-01-14] MEDS: Folic Acid 1 MG Tablet PO (12:10)
[2020-01-14] MEDS: Multivitamins,Therapeutic Tablet 1 TABLET PO (12:10)
[2020-01-14] MEDS: buPROPion 100 MG Tablet 200 MG PO (12:13)
[2020-01-14] MEDS: Mag Hydrox/Al Hydrox/Simeth 30 ML UDC PO (13:59)
--- NOTE | 2020-01-17 15:37 | CASEMGMT ---
MARIELLA DC PHONE CALL DC DATE: 01/14/2020 DC DISPOSITION: Home DC DIAGNOSIS: CAD,Chest pain LACE/STRATA: 06/13 F/U APPTS MADE PRIOR TO DC: no Attempted call to home phone. No answer and no message machine with name identifier. Whit RUBIN RN ACM
== END 2020-01-14 14:51 | disposition home or self-care (01) | DRG 381 ==
LOC: ED 18:31 → PCU 18:33
PROVIDERS: Family Medicine; Admitting Provider Internal Medicine; Emergency Provider Emergency Medicine; PCP Internal Medicine; Visit Provider Internal Medicine
DX: K22.70 Barrett's esophagus without dysplasia (principal); K21.9 Gastro-esophageal reflux disease without esophagitis; E27.40 Unspecified adrenocortical insufficiency; Z68.41 Body mass index [BMI] 40.0-44.9, adult; E88.81 Metabolic syndrome and other insulin resistance; I12.9 Hypertensive chronic kidney disease with stage 1 through stage 4 chronic kidney disease, or unspecified chronic kidney disease; N18.2 Chronic kidney disease, stage 2 (mild); D47.2 Monoclonal gammopathy; M06.9 Rheumatoid arthritis, unspecified; G89.29 Other chronic pain; E03.9 Hypothyroidism, unspecified; J45.909 Unspecified asthma, uncomplicated; G47.31 Primary central sleep apnea; G47.33 Obstructive sleep apnea (adult) (pediatric); E66.9 Obesity, unspecified; F32.9 Major depressive disorder, single episode, unspecified; Z79.82 Long term (current) use of aspirin; Z79.51 Long term (current) use of inhaled steroids; Z79.1 Long term (current) use of non-steroidal anti-inflammatories (NSAID); Z79.899 Other long term (current) drug therapy; Z85.828 Personal history of other malignant neoplasm of skin; Z96.651 Presence of right artificial knee joint
CPT/HCPCS: 36415; 71046; 80048; 80053; 80061; 82962; 84484; 85025; 85610; 93005; 93458; 94640; 99152; 99285; C1760; J7030; J7040; A4216; C1769; C1894; Q9967

== ENCOUNTER → 2020-04-10 17:02 | Outpatient (CLI) | payer MEDICARE, OTHER, SELFPAY ==
[2020-04-08 13:01] VITALS: BMI 42.4
== END ==
PROVIDERS: PCP Internal Medicine; Visit Provider Physician Assistant
DX: Z20.828 Contact with and (suspected) exposure to other viral communicable diseases (principal)
CPT/HCPCS: 87635; 94799; U0003

== ENCOUNTER → 2020-05-01 12:05 | Outpatient (CLI) | payer MEDICARE, OTHER, SELFPAY ==
[2020-04-08 13:01] VITALS: BMI 42.4
[2020-05-01 16:40] LABS: BUN 20 mg/dL (7-18); Creatinine, Serum 0.88 mg/dL (0.55-1.02); Glucose 106 mg/dL (74-106)
[2020-05-01 16:41] LABS: AST(SGOT) 26 U/L (15-37); Alanine Aminotransfer ALT/SGPT 38 U/L (13-56); Albumin, Serum 3.7 g/dL (3.2-5.0); Alkaline Phosphatase 126 U/L (45-117); Anion Gap 6 (5-15); BUN/Creat Ratio 22.6 RATIO (10-20); Calcium,Total 9.1 mg/dL (8.5-10.1); Chloride 109 mmol/L (98-107); EST Glomerular Filtration Rate 68 mL/min (>60); Est Glom Filt Rate - Afr Amer 82 mL/min (>60); Globulin 3.8 g/dL (2.2-4.2); Potassium 3.8 mmol/L (3.5-5.1); Protein, Total 7.5 g/dL (6.4-8.2); Sodium Level 143 mmol/L (136-145)
[2020-05-01 17:04] LABS: Absolute Lymphocyte Count 2.93 X10^3/uL (0.83-4.51); Absolute Neutrophil Count 3.1 X10^3/uL (2.0-7.7); Basophil# 0.05 X10^3/uL; Basophil% 0.7 % (0-1); Hematocrit 39.4 % (37-47); Hemoglobin 12.4 g/dL (12.0-15.0); Lymphocyte # 2.93 X10^3/ul (4.0); Lymphocyte % 43.4 % (19-41); Mean Corp Hgb Conc 31.5 g/dL (32-36); Mean Corpuscular Hgb 30.2 pg (27.0-32.0); Mean Corpuscular Volume 95.9 fL (81-99); Mean Platelet Vol. 10.4 fl (6.2-12.0); Monocyte# 0.48 X10^3/uL; Monocyte% 7.1 % (0-10); NRBC Flagged by Analyzer 0 % (0-5); Neutrophil # 3.06 X10^3/uL (2.7-7.7); Neutrophil % 45.4 % (47-70); Platelet Count 347 K/mm3 (150-450); RBC Distribution Width CV 12.8 % (11.6-14.6); RBC Distribution Width SD 44.8 fl (35.1-43.9); Red Blood Count 4.11 M/mm3 (4.2-5.4); White Blood Count 6.8 K/mm3 (4.4-11.0)
== END ==
PROVIDERS: PCP Internal Medicine; Referring Provider Internal Medicine Rheumatology; Visit Provider Internal Medicine Rheumatology
DX: M06.4 Inflammatory polyarthropathy (principal); M79.7 Fibromyalgia; M16.0 Bilateral primary osteoarthritis of hip; M17.0 Bilateral primary osteoarthritis of knee; E27.9 Disorder of adrenal gland, unspecified; D47.2 Monoclonal gammopathy; M21.40 Flat foot [pes planus] (acquired), unspecified foot; E03.9 Hypothyroidism, unspecified; G47.419 Narcolepsy without cataplexy; H81.03 Meniere's disease, bilateral; M51.37 Other intervertebral disc degeneration, lumbosacral region; M47.897 Other spondylosis, lumbosacral region; M47.892 Other spondylosis, cervical region; K22.70 Barrett's esophagus without dysplasia; Z79.899 Other long term (current) drug therapy
CPT/HCPCS: 36415; 80053; 85025

== ENCOUNTER → 2020-05-09 17:46 | Outpatient (CLI) | payer MEDICARE, OTHER, SELFPAY ==
[2020-05-09 13:03] VITALS: BMI 42.4
== END ==
PROVIDERS: PCP Internal Medicine; Visit Provider Physician Assistant Surgical
DX: U07.1 COVID-19 (principal)
CPT/HCPCS: 87635; C9803; U0003

== ENCOUNTER → 2020-06-12 14:36 | Outpatient (CLI) | payer MEDICARE, OTHER, SELFPAY ==
[2020-04-08 13:01] VITALS: BMI 42.4
[2020-05-16 11:57] VITALS: BMI 42.4
[2020-06-12 17:02] LABS: Vitamin D,25 Hydroxy 67.8 ng/mL
[2020-06-12 17:09] LABS: ALB/GLOB Ratio 0.9 RATIO (0.9-2.4); AST(SGOT) 22 U/L (15-37); Alanine Aminotransfer ALT/SGPT 43 U/L (13-56); Albumin, Serum 3.8 g/dL (3.2-5.0); Alkaline Phosphatase 154 U/L (45-117); Anion Gap 7 (5-15); BUN 20 mg/dL (7-18); BUN/Creat Ratio 19.8 RATIO (10-20); Calcium,Total 9.3 mg/dL (8.5-10.1); Chloride 105 mmol/L (98-107); Cholesterol 163 mg/dL (200); Creatinine, Serum 1.01 mg/dL (0.55-1.02); EST Glomerular Filtration Rate 58 mL/min (>60); Est Glom Filt Rate - Afr Amer 70 mL/min (>60); Free T3 2.7 pg/mL (2.18-3.98); Globulin 4.1 g/dL (2.2-4.2); Glucose 114 mg/dL (74-106); High Density Lipoprotein 53 mg/dL; Potassium 3.6 mmol/L (3.5-5.1); Protein, Total 7.9 g/dL (6.4-8.2); Sodium Level 140 mmol/L (136-145); T4 Free Direct 1.13 ng/dL (0.76-1.46); Thyroid Stim Hormone (TSH) 2.24 uIU/mL (0.358-3.74); Triglycerides 122 mg/dL; Very Low Density Lipoprotein 24 mg/dL (5-40)
[2020-06-12 17:12] LABS: Hemoglobin A1c 5.9 % (3.8-5.6)
== END ==
PROVIDERS: PCP Internal Medicine; Referring Provider Internal Medicine Endocrinology, Diabetes & Metabolism; Visit Provider Internal Medicine Endocrinology, Diabetes & Metabolism
DX: E03.9 Hypothyroidism, unspecified (principal); R73.03 Prediabetes; K22.70 Barrett's esophagus without dysplasia; E55.9 Vitamin D deficiency, unspecified; E78.00 Pure hypercholesterolemia, unspecified
CPT/HCPCS: 36415; 80053; 80061; 82306; 83036; 84439; 84443; 84481

== ENCOUNTER → 2020-06-28 07:31 | Outpatient (CLI) | payer MEDICARE, OTHER, SELFPAY ==
[2020-06-21 10:47] VITALS: BMI 40.6
[2020-06-28 08:22] LABS: Anion Gap 3 (5-15); BUN 24 mg/dL (7-18); BUN/Creat Ratio 25.6 RATIO (10-20); Calcium,Total 9.3 mg/dL (8.5-10.1); Chloride 107 mmol/L (98-107); Creatinine, Serum 0.94 mg/dL (0.55-1.02); EST Glomerular Filtration Rate 63 mL/min (>60); Est Glom Filt Rate - Afr Amer 77 mL/min (>60); Glucose 99 mg/dL (74-106); Potassium 3.4 mmol/L (3.5-5.1); Sodium Level 142 mmol/L (136-145)
[2020-06-29 14:50] LABS: Adrenocorticotropic Hormone 74.8 pg/mL (7.2-63.3)
== END ==
PROVIDERS: PCP Internal Medicine; Referring Provider Internal Medicine Endocrinology, Diabetes & Metabolism; Visit Provider Internal Medicine Endocrinology, Diabetes & Metabolism
DX: K22.70 Barrett's esophagus without dysplasia (principal); E55.9 Vitamin D deficiency, unspecified; E78.00 Pure hypercholesterolemia, unspecified; R73.03 Prediabetes; E03.9 Hypothyroidism, unspecified
CPT/HCPCS: 36415; 80048; 82024; 82533

== ENCOUNTER → 2020-07-11 10:53 | Outpatient (CLI) | payer MEDICARE, OTHER, SELFPAY ==
[2020-06-21 10:47] VITALS: BMI 40.6
[2020-07-04 10:08] VITALS: BMI 41.3
--- NOTE | 2020-07-11 16:31 | PFTCOMP_ITS ---
COMPLETE PULMONARY FUNCTION TEST INTERPRETATION Brief HPI: Patient is a 69 year old female, currently under the care of myself, who presents to [facility] for complete pulmonary function tests secondary to diagnosis of dyspnea. Respiratory therapist reports good effort and reproducible results. Interpretation: Forced expiration spirometry shows no large airways obstructive ventilatory defect with an FEV1 of 97% predicted. There is no significant bronchodilator response by strict ATS criteria. Spirograms are of good quality and plateau normally. The respiratory flow volume loop shows a normal pattern. Lung volumes by body plethysmography show a normal total lung capacity at 5.36 L, 104% predicted. All other lung volumes are within normal limits. Diffusion capacity by carbon monoxide is normal at 81% predicted. The airway resistance is normal. Compared to previous pulmonary function tests from 01/15/2018, there is been a significant improvement in DLCO by 16%. Impression: These pulmonary function tests are within normal limits and showed normalization of DLCO compared to previous testing
== END ==
PROVIDERS: PCP Internal Medicine; Referring Provider Internal Medicine Critical Care Medicine; Visit Provider Internal Medicine Critical Care Medicine
DX: R06.00 Dyspnea, unspecified (principal)
CPT/HCPCS: 94060; 94726; 94729

== ENCOUNTER → 2020-07-25 12:19 | Outpatient (CLI) | payer MEDICARE, OTHER, SELFPAY ==
[2020-07-04 10:08] VITALS: BMI 41.3
[2020-07-25 15:26] LABS: Absolute Lymphocyte Count 3.42 X10^3/uL (0.83-4.51); Absolute Neutrophil Count 3.2 X10^3/uL (2.0-7.7); Basophil# 0.07 X10^3/uL; Basophil% 0.9 % (0-1); Eosinophil# 0.22 X10^3/uL; Hematocrit 41.7 % (37-47); Lymphocyte # 3.42 X10^3/ul (4.0); Lymphocyte % 46.2 % (19-41); Mean Corp Hgb Conc 31.2 g/dL (32-36); Mean Corpuscular Hgb 29.1 pg (27.0-32.0); Mean Corpuscular Volume 93.3 fL (81-99); Mean Platelet Vol. 9.8 fl (6.2-12.0); Monocyte# 0.45 X10^3/uL; Monocyte% 6.1 % (0-10); NRBC Flagged by Analyzer 0 % (0-5); Neutrophil # 3.23 X10^3/uL (2.7-7.7); Neutrophil % 43.5 % (47-70); Platelet Count 399 K/mm3 (150-450); RBC Distribution Width CV 13.2 % (11.6-14.6); RBC Distribution Width SD 45.1 fl (35.1-43.9); Red Blood Count 4.47 M/mm3 (4.2-5.4); White Blood Count 7.4 K/mm3 (4.4-11.0)
[2020-07-25 15:49] LABS: ALB/GLOB Ratio 1.1 RATIO (0.9-2.4); AST(SGOT) 21 U/L (15-37); Alanine Aminotransfer ALT/SGPT 34 U/L (13-56); Alkaline Phosphatase 149 U/L (45-117); Anion Gap 6 (5-15); BUN 19 mg/dL (7-18); BUN/Creat Ratio 20.4 RATIO (10-20); Calcium,Total 9.3 mg/dL (8.5-10.1); Chloride 103 mmol/L (98-107); Creatinine, Serum 0.93 mg/dL (0.55-1.02); EST Glomerular Filtration Rate 64 mL/min (>60); Est Glom Filt Rate - Afr Amer 77 mL/min (>60); Globulin 3.8 g/dL (2.2-4.2); Glucose 96 mg/dL (74-106); Potassium 3.5 mmol/L (3.5-5.1); Protein, Total 7.8 g/dL (6.4-8.2); Sodium Level 139 mmol/L (136-145)
== END ==
PROVIDERS: PCP Internal Medicine; Referring Provider Internal Medicine Rheumatology; Visit Provider Internal Medicine Rheumatology
DX: M06.4 Inflammatory polyarthropathy (principal); M79.7 Fibromyalgia; M17.0 Bilateral primary osteoarthritis of knee; M16.0 Bilateral primary osteoarthritis of hip; E27.9 Disorder of adrenal gland, unspecified; D47.2 Monoclonal gammopathy; M21.40 Flat foot [pes planus] (acquired), unspecified foot; E03.9 Hypothyroidism, unspecified; G47.419 Narcolepsy without cataplexy; H81.03 Meniere's disease, bilateral; M51.37 Other intervertebral disc degeneration, lumbosacral region; M47.897 Other spondylosis, lumbosacral region; M47.892 Other spondylosis, cervical region; K22.70 Barrett's esophagus without dysplasia; Z79.899 Other long term (current) drug therapy
CPT/HCPCS: 36415; 80053; 85025

== ENCOUNTER → 2020-09-11 11:49 | Outpatient (CLI) | payer MEDICARE, OTHER, SELFPAY ==
[2020-09-11 10:59] VITALS: BMI 40.8
[2020-09-11 15:22] LABS: Basophil# 0.06 X10^3/uL; Basophil% 0.9 % (0-1); Eosinophil# 0.15 X10^3/uL; Eosinophils% 2.3 % (0-5); Hematocrit 43.3 % (37-47); Hemoglobin 13.6 g/dL (12.0-15.0); Lymphocyte % 44.5 % (19-41); Mean Corp Hgb Conc 31.4 g/dL (32-36); Mean Corpuscular Hgb 29.4 pg (27.0-32.0); Mean Corpuscular Volume 93.5 fL (81-99); Mean Platelet Vol. 9.9 fl (6.2-12.0); Monocyte# 0.36 X10^3/uL; Monocyte% 5.5 % (0-10); NRBC Flagged by Analyzer 0 % (0-5); Neutrophil # 3.02 X10^3/uL (2.7-7.7); Neutrophil % 46.5 % (47-70); Platelet Count 384 K/mm3 (150-450); RBC Distribution Width SD 44.6 fl (35.1-43.9); Red Blood Count 4.63 M/mm3 (4.2-5.4); White Blood Count 6.5 K/mm3 (4.4-11.0)
[2020-09-11 15:39] LABS: Vitamin D,25 Hydroxy 39.5 ng/mL
[2020-09-11 15:53] LABS: ALB/GLOB Ratio 0.9 RATIO (0.9-2.4); AST(SGOT) 27 U/L (15-37); Alanine Aminotransfer ALT/SGPT 34 U/L (13-56); Albumin, Serum 3.9 g/dL (3.2-5.0); Alkaline Phosphatase 159 U/L (45-117); Anion Gap 8 (5-15); BUN 19 mg/dL (7-18); BUN/Creat Ratio 19.9 RATIO (10-20); Calcium,Total 9.4 mg/dL (8.5-10.1); Chloride 101 mmol/L (98-107); Creatinine, Serum 0.96 mg/dL (0.55-1.02); EST Glomerular Filtration Rate 62 mL/min (>60); Est Glom Filt Rate - Afr Amer 75 mL/min (>60); Globulin 4.3 g/dL (2.2-4.2); Glucose 106 mg/dL (74-106); Potassium 3.8 mmol/L (3.5-5.1); Protein, Total 8.2 g/dL (6.4-8.2); Sodium Level 137 mmol/L (136-145)
== END ==
PROVIDERS: PCP Internal Medicine; Visit Provider Internal Medicine
DX: M06.4 Inflammatory polyarthropathy (principal); M79.7 Fibromyalgia; M17.0 Bilateral primary osteoarthritis of knee; M16.0 Bilateral primary osteoarthritis of hip; E27.9 Disorder of adrenal gland, unspecified; D47.2 Monoclonal gammopathy; M85.80 Other specified disorders of bone density and structure, unspecified site; M21.40 Flat foot [pes planus] (acquired), unspecified foot; E03.9 Hypothyroidism, unspecified; G47.419 Narcolepsy without cataplexy; H81.03 Meniere's disease, bilateral; M51.37 Other intervertebral disc degeneration, lumbosacral region; M47.897 Other spondylosis, lumbosacral region; M47.892 Other spondylosis, cervical region; K22.70 Barrett's esophagus without dysplasia; Z79.899 Other long term (current) drug therapy
CPT/HCPCS: 36415; 80053; 82306; 85025

== ENCOUNTER → 2020-09-12 11:32 | Outpatient (CLI) | payer MEDICARE, OTHER, SELFPAY ==
[2020-09-11 10:59] VITALS: BMI 40.8
--- NOTE | 2020-09-12 11:37 | RAD_ITS ---
STUDY: X-RAY - RIGHT SHOULDER REASON FOR EXAM: Female, 69 years old. PAIN IN RIGHT SHOULDER. HX OF A TORN ROTATOR CUFF WITH SURGERY 2 YEARS AGO PER PATIENT. TECHNIQUE: 4 view(s) of the shoulder. COMPARISON: None. FINDINGS: There is severe degenerative arthrosis of the glenohumeral articulation. Normal acromioclavicular joint. Normal acromion. Degenerative spurring along the inferior medial aspect of the humeral head. The soft tissue structures are unremarkable. Normal visualized pulmonary apex. RAD/Shoulder min 2 Views IMPRESSION: Degenerative changes. Electronically Signed: Billy Kaplan MD at 12:45 EST , Service support ,
== END ==
PROVIDERS: PCP Internal Medicine; Referring Provider Internal Medicine; Visit Provider Internal Medicine
DX: M25.511 Pain in right shoulder (principal)
CPT/HCPCS: 73030

== ENCOUNTER → 2020-10-17 12:18 | Outpatient (CLI) | payer MEDICARE, OTHER, SELFPAY ==
[2020-09-11 10:59] VITALS: BMI 40.8
[2020-09-25 13:31] VITALS: BMI 40.8
--- NOTE | 2020-10-17 12:25 | BD_ITS ---
STUDY: DUAL ENERGY X-RAY ABSORPTIOMETRY / DXA REASON FOR EXAM: Female, 69 years old. Osteopenia TECHNIQUE: Bone Mineral Density (BMD) measurements of lumbar spine and bilateral hips were obtained. COMPARISON: Comparison is made with prior examination dated 09/03/2016. FINDINGS: Lumbar Spine (L1-L4): g/cm2 (1.441) / T-score (2.0) / Z-score (3.6) Findings are suggestive of normal bone density with a low fracture risk. Left Femur Total: g/cm2 (0.996) / T-score (-0.1) / Z-score (1.2) Left Femoral Neck: g/cm2 (0.851) / T-score (-1.3) / Z-score (0.2) Right Femur Total: g/cm2 (0.963) / T-score (-0.4) / Z-score (1.0) Right Femoral Neck: g/cm2 (0.918) / T-score (-0.9) / Z-score (0.7) The T-Scores on the most recent prior examination were: Lumbar Spine (L1-L4): There has been worsening of bone density since the previous examination. Left Femur Total: which represents a worsening of 5.8%. Right Femur Total: which represents an improvement of 0.6%. BD/Dexa Bone Density Study IMPRESSION: The patient is considered osteopenic as outlined below according to World Roosevelt Organization (WHO) criteria with a low fracture risk. There has been worsening of bone density since the previous examination. Reference Information: The T-score is the number of standard deviations above or below the standard which is normal for young adults at their peak bone mineral density. The World Health Organization (WHO) interprets the T-scores as follows: Above -1 Normal bone density Between -1 and -2.5 Osteopenia Equal to / or below -2.5 Osteoporosis As a practical clinical guideline, osteopenia may be graded as follows: Mild -1 through -1.5 Moderate -1.6 through -2.0 Severe -2.1 through -2.4 The Z-score is the number of standard deviations above or below age-matched controls. A Z-score of less than -1.5 would be considered abnormal. References: 1. NIH Osteoporosis and Related Bone Diseases www osteo.org 2. International Society for Clinical Densitometry www iscd.org 3. National Osteoporosis Foundation www nof.org Electronically Signed: Billy Kaplan MD at 14:38 EDT , Service support ,
== END ==
PROVIDERS: PCP Internal Medicine; Referring Provider Internal Medicine; Visit Provider Internal Medicine
DX: Z78.0 Asymptomatic menopausal state (principal)
CPT/HCPCS: 77080

== ENCOUNTER 2020-11-21 16:56 | Emergency (ER) | payer MEDICARE, OTHER, SELFPAY ==
[2020-09-25 13:31] VITALS: BMI 40.8
[2020-11-21 16:58] VITALS: BP 85/56; PULSE 79; RESP 20; TEMP 36.4; O2SAT 100; BMI 39.6
--- NOTE | 2020-11-21 17:19 | CT_ITS ---
STUDY: CT CERVICAL SPINE WITH CONTRAST REASON FOR EXAM: Female, 69 years old. pain after epidural shot and radiculopathy RADIATION DOSAGE (If Supplied By Facility): CTDIvol = ( 40.39 ) mGy, DLP = ( 935.56 ) mGycm TECHNIQUE: High resolution transaxial imaging was performed following intravenous administration of IV 100mL Isovue-300. Sagittal and coronal images were reconstructed. Individualized dose optimization techniques were used for this CT. COMPARISON: None FINDINGS: Normal craniovertebral junction. Normal anterior atlantoaxial articulation. Normal odontoid process. Decreased cervical lordosis. Normal vertebral bodies and posterior osseous elements. There are air bubbles seen within the posterior epidural space from the upper thoracic spine to the upper cervical spine as well as basal cisterns in the brain secondary to epidural injection.. There is no evidence for acute osteomyelitis or discitis. C2-3: Normal endplates. Normal disc height and morphology. Normal central canal and intervertebral neuroforamina. C3-4: Normal endplates. Normal disc height and morphology. Normal central canal and intervertebral neuroforamina. C4-5: Normal endplates. Normal disc height and morphology. Normal central canal and intervertebral neuroforamina. C5-6: Normal endplates. Normal disc height and morphology. Normal central canal and intervertebral neuroforamina. C6-7: Normal endplates. Normal disc height and morphology. Normal central canal and intervertebral neuroforamina. C7-T1: Normal endplates. Normal disc height and morphology. Normal central canal and intervertebral neuroforamina. Normal visualized soft tissue structures. CT/Spine Cervical WITH Contrast IMPRESSION: No evidence for acute fracture or other significant bony pathology. Multiple air bubbles noted throughout the epidural space cervical and upper thoracic canal secondary to recent epidural injection. There is also air noted within the basilar cisterns in the brain. No significant disc disease or spinal stenosis however MRI would be helpful for further evaluation in this regard if indicated Electronically Signed: Wu Bates MD at 19:51 EDT , Service support ,
[2020-11-21] MEDS: Ondansetron 4 MG/2 ML Vial IV (17:35)
[2020-11-21] MEDS: HYDROmorphone 1 MG/ML Syringe IV ×2 (17:35→21:01)
[2020-11-21 17:56] LABS: Absolute Neutrophil Count 3.8 X10^3/uL (2.0-7.7); Basophil# 0.04 X10^3/uL; Basophil% 0.5 % (0-1); Eosinophil# 0.15 X10^3/uL; Hematocrit 41.7 % (37-47); Mean Corp Hgb Conc 31.2 g/dL (32-36); Mean Corpuscular Hgb 29.5 pg (27.0-32.0); Mean Corpuscular Volume 94.6 fL (81-99); Mean Platelet Vol. 9.4 fl (6.2-12.0); Monocyte# 0.39 X10^3/uL; Monocyte% 5.1 % (0-10); NRBC Flagged by Analyzer 0 % (0-5); Neutrophil # 3.77 X10^3/uL (2.7-7.7); Platelet Count 350 K/mm3 (150-450); RBC Distribution Width CV 13.3 % (11.6-14.6); RBC Distribution Width SD 46.3 fl (35.1-43.9); Red Blood Count 4.41 M/mm3 (4.2-5.4); White Blood Count 7.7 K/mm3 (4.4-11.0)
[2020-11-21 18:09] LABS: Anion Gap 6 (5-15); BUN 16 mg/dL (7-18); BUN/Creat Ratio 17.4 RATIO (10-20); Calcium,Total 9.3 mg/dL (8.5-10.1); Chloride 104 mmol/L (98-107); Creatinine, Serum 0.92 mg/dL (0.55-1.02); EST Glomerular Filtration Rate 65 mL/min (>60); Est Glom Filt Rate - Afr Amer 78 mL/min (>60); Estimated Creatinine Clearance 53.39 ml/min; Glucose 149 mg/dL (74-106); Potassium 3.8 mmol/L (3.5-5.1); Sodium Level 138 mmol/L (136-145)
[2020-11-21 19:18] VITALS: BP 125/76; PULSE 87; RESP 16; O2SAT 97
--- NOTE | 2020-11-21 20:30 | ED.DCSUM_ITS ---
History of Present Illness Chief Complaint: Back Informant: Patient, Significant Other Onset: Today Context: Gradual Onset - soon after epidural injection in neck Timing: Continuous, Waxes and wanes Quality: pain Location: neck, both arms worse on left Current Severity: Severe Maximum Severity: Severe Worsened by: any movement Relieved by: remaining still Associated Symptoms: something with my right leg Narrative: About 30 minutes after patient received an epidural cervical spine injection today at pain management, she started having severe pain in her neck going into both arms. The pain did not go into her leg, but she states at home her leg was shaking off-and-on, she has been able to stand on it and walk but is afraid to because any movement makes her pain worse especially if she moves her neck/head at all. - Past Medical History (1) Adrenal insufficiency Status: Chronic (2) Asthma Status: Chronic (3) Roman esophagus Status: Chronic (4) CSA (central sleep apnea) Status: Chronic (5) Essential (primary) hypertension Status: Chronic (6) Hypothyroidism Status: Chronic (7) MGUS (monoclonal gammopathy of unknown significance) Status: Chronic Past Medical History - Allergies and Home Meds Allergies/Adverse Reactions: Allergies phenytoin sodium [From Dilantin] Allergy (Mild, Verified 11/21/20 16:57) Rash phenytoin sodium extended [From Dilantin] Allergy (Mild, Verified 11/21/20 16:57) Rash ketorolac tromethamine [From Toradol] Allergy (Verified 11/21/20 16:57) Anaphylaxis morphine Adverse Reaction (Severe, Verified 11/21/20 16:57) Other not effective, confusion Honey Dew Melon Adverse Reaction (Uncoded 11/21/20 16:57) Food Allergy Primary Care Physician: Scarlett Mancilla MD [STAFF PHYSICIAN] - 1-2 Days if not improving Yoanna Hull MD [Primary Care Provider] - Smoking Status: Unknown if ever smoked - Family History Maternal Family History: Family History (Last Reviewed 09/25/20 @ 13:12 by Patricia Hernandez) Father Cancer Mother Dementia Osteoarthritis COPD (chronic obstructive pulmonary disease) Brother Myocardial infarction, Onset Age: 49 Aunt Multiple sclerosis Sister Colon cancer Breast cancer Aunt Celiac disease Family History: Reports: No pertinent history Paternal Family History: Family History (Last Reviewed 09/25/20 @ 13:12 by Patricia Savage Father Cancer Mother Dementia Osteoarthritis COPD (chronic obstructive pulmonary disease) Brother Myocardial infarction, Onset Age: 49 Aunt Multiple sclerosis Sister Colon cancer Breast cancer Aunt Celiac disease Family History: Reports: No pertinent history Review of Systems General: Denies: Chills, Fever, Sweats Eyes: Denies: Visual changes - bilaterally, Diplopia ENT: Denies: Rhinorrhea, Sore throat Cardiovascular: Denies: Chest pain, Palpitations Respiratory: Denies: Dyspnea, Cough, Dyspnea on exertion Gastrointestinal: Denies: Abdominal pain, Nausea, Vomiting, Diarrhea, Melena, Hematochezia Genitourinary: Denies: Dysuria, Hematuria, Frequency Musculoskeletal: Reports: Neck pain, Back pain, Extremity Pain Skin: Denies: Rash, Wounds Neurological: Reports: Parasthesia - left forearm/arm/hand. Denies: Headache, Weakness, Numbness Psych: Reports: Anxiety. Denies: Suicidal thoughts Physical Exam Vital Signs/Narrative: Vital Signs Temp Pulse Resp BP Pulse Ox 11/21/20 19:18 87 16 125/76 H 97 11/21/20 16:58 97.5 F L 79 20 H 85/56 L 100 Inital Vital Signs reviewed: Yes General: Well nourished, Well developed, Acute Distress Head: Normocephalic, Atraumatic Eyes: Perrl, EOMI ENT: Moist mucous membranes, No rhinorrhea Neck: No lymphadenopathy, No JVD, - - Patient does not want to move her head, any type of light palpation results in severe pain. Inspection of her neck is normal otherwise, externally. Cardiovascular: Regular rate, Regular rhythm, No murmurs. Negative for: Tachycardia Respiratory: No distress, CTA bilaterally, Chest nontender Abdomen: Soft, Nontender, Nondistended, Normal bowel sounds Back: Nontender, Normal Inspection Extremities: Nontender, No edema Skin: Normal color, No rash Neurological: Alert, Oriented x3, Cranial nerves II-XII grossly intact, Normal Strength - Able to walk, using caution, moving both upper extremities normally., Normal Sensation - Grossly intact, Normal Gait Psychological: Tearful, Agitated, - - Anxious, almost hysterical at times Diagnostic/Tx/Re-eval Impressions Cervical Spine CT 11/21/20 17:19 IMPRESSION: No evidence for acute fracture or other significant bony pathology. Multiple air bubbles noted throughout the epidural space cervical and upper thoracic canal secondary to recent epidural injection. There is also air noted within the basilar cisterns in the brain. No significant disc disease or spinal stenosis however MRI would be helpful for further evaluation in this regard if indicated Electronically Signed: Wu Bates MD at 19:51 EDT , Service support , 11/21/20 17:19 CT Cervical [Spine Cervical WITH Contrast] [CT] Stat Laboratory Results 11/21/20 11/21/20 17:35 17:35 WBC 7.7 RBC 4.41 Hgb 13.0 Hct 41.7 MCV 94.6 MCH 29.5 MCHC 31.2 L RDW Std Deviation 46.3 H RDW Coeff of Rosamaria 13.3 Plt Count 350 MPV 9.4 Immature Gran % (Auto) 0.400 Neut % (Auto) 49.0 Lymph % (Auto) 43.0 H Bartholomew % (Auto) 5.1 Eos % (Auto) 2.0 Baso % (Auto) 0.5 Absolute Neuts (auto) 3.8 Absolute Lymphs (auto) 3.30 Nucleated RBC % 0 Sodium 138 Potassium 3.8 Chloride 104 Carbon Dioxide 28.0 Anion Gap 6 BUN 16 Creatinine 0.92 Estim Creat Clear Calc 53.39 Est GFR (MDRD) Af Amer 78 Est GFR (MDRD) Non-Af 65 BUN/Creatinine Ratio 17.4 Glucose 149 H Calcium 9.3 - Medical Decision Making Patient was given a dose of Dilaudid IV, blood work was obtained as well as a CT with IV contrast of the cervical spine, as advised by her pain management doctor, Dr Mancilla. Results as above. She is much better after the Dilaudid, she is able to walk gingerly, saying that she was protecting herself because of the pain but legs working well without tingling. Her arms are with good strength, but she is having some tingling in the left upper extremity and into the hand that is mild. She also has a sensation that she has water running down her right lower extremity, which is not occurring but it feels like it, she states she has had that before in August. She does not have any numbness or weakness elsewhere. She is having pain radiating into both upper arms and into her neck and down her back. It is worse when she moves. I discussed with Dr. Mancilla. He states that the air is a normal finding after an epidural injection and he is comfortable with the fact that this IV contrasted CT does not show an epidural hematoma, and he states an MRI should not be needed at this time. If the patient is comfortable with her level of pain he is comfortable with her going home on a Medrol Dosepak and possibly gabapentin, with close outpatient follow-up. She is and would like to go home. Prior to being discharged, she requested that a magnesium be drawn, because she remembered she had all of this happen 3 or 4 years ago and she was told her magnesium level was low. Her potassium level is normal today, her magnesium was drawn and it is normal to. Afterwards, the patient was doing very well and discharged with the above plan. ED Disposition - Plan for ED Patient: Disposition: Home or Assisted Living Diagnosis: Posterior neck pain, Cervical radiculopathy Instructions: ED Neck Pain Prescriptions: Gabapentin 1 cap PO TID 30 Days #89 capsule Prescription Printed MethylPREDNISolone DosePak [Medrol DosePak] 4 mg PO UD #1 box Prescription Printed Referrals: Yoanna Hull MD [Primary Care Provider] - Scarlett Mancilla MD [STAFF PHYSICIAN] - 1-2 Days if not improving
[2020-11-21] MEDS: predniSONE 20 MG Tablet 40 MG PO (21:00)
[2020-11-21] MEDS: Gabapentin 300 MG Capsule PO (21:01)
[2020-11-21 21:07] VITALS: BP 125/76; PULSE 80; RESP 16
[2020-11-21 21:54] LABS: Magnesium 2.4 mg/dL (1.6-2.6)
[2020-11-21 23:07] VITALS: BP 132/89; PULSE 84; RESP 15; O2SAT 99
== END 2020-11-21 23:07 | disposition home or self-care (01) ==
PROVIDERS: Emergency Provider Emergency Medicine; PCP Internal Medicine
DX: M54.2 Cervicalgia (principal); M54.12 Radiculopathy, cervical region; R25.1 Tremor, unspecified; I10 Essential (primary) hypertension; D47.2 Monoclonal gammopathy; E03.9 Hypothyroidism, unspecified; E27.40 Unspecified adrenocortical insufficiency; J45.909 Unspecified asthma, uncomplicated; G47.31 Primary central sleep apnea; Z79.899 Other long term (current) drug therapy
CPT/HCPCS: 72126; 80048; 83735; 85025; 96361; 96374; 96375; 96376; 99284; J7030; J7050; J2405

== ENCOUNTER → 2020-12-19 12:22 | Outpatient (CLI) | payer MEDICARE, OTHER, SELFPAY ==
[2020-06-21 10:47] VITALS: BMI 40.6
[2020-12-11 11:15] VITALS: BMI 39.6
[2020-12-19 14:01] LABS: Hemoglobin A1c 5.7 % (3.8-5.6)
[2020-12-19 14:08] LABS: Vitamin D,25 Hydroxy 47.8 ng/mL
[2020-12-19 14:15] LABS: AST(SGOT) 15 U/L (15-37); Alanine Aminotransfer ALT/SGPT 27 U/L (13-56); Albumin, Serum 3.9 g/dL (3.2-5.0); Alkaline Phosphatase 119 U/L (45-117); Anion Gap 5 (5-15); BUN 23 mg/dL (7-18); BUN/Creat Ratio 28.8 RATIO (10-20); Calcium,Total 9.4 mg/dL (8.5-10.1); Chloride 106 mmol/L (98-107); EST Glomerular Filtration Rate 76 mL/min (>60); Est Glom Filt Rate - Afr Amer 92 mL/min (>60); Glucose 95 mg/dL (74-106); Potassium 3.5 mmol/L (3.5-5.1); Protein, Total 7.9 g/dL (6.4-8.2); Sodium Level 140 mmol/L (136-145); T4 Free Direct 1.01 ng/dL (0.76-1.46); Thyroid Stim Hormone (TSH) 3.16 uIU/mL (0.358-3.74)
== END ==
PROVIDERS: PCP Internal Medicine; Referring Provider Internal Medicine Endocrinology, Diabetes & Metabolism; Visit Provider Internal Medicine Endocrinology, Diabetes & Metabolism
DX: K22.70 Barrett's esophagus without dysplasia (principal); E55.9 Vitamin D deficiency, unspecified; E78.00 Pure hypercholesterolemia, unspecified; R73.03 Prediabetes; E03.9 Hypothyroidism, unspecified
CPT/HCPCS: 36415; 80053; 82306; 83036; 84439; 84443

== ENCOUNTER → 2021-01-16 08:07 | Outpatient (CLI) | payer MEDICARE, OTHER, SELFPAY ==
[2020-09-25 13:31] VITALS: BMI 40.8
[2021-01-02 07:44] VITALS: BMI 40.3
[2021-01-16 09:10] LABS: Absolute Lymphocyte Count 3.57 X10^3/uL (0.83-4.51); Basophil# 0.05 X10^3/uL; Basophil% 0.6 % (0-1); Eosinophil# 0.27 X10^3/uL; Eosinophils% 3.2 % (0-5); Hematocrit 39.9 % (37-47); Hemoglobin 12.8 g/dL (12.0-15.0); Lymphocyte # 3.57 X10^3/ul (0.83-4.51); Lymphocyte % 42.6 % (19-41); Mean Corp Hgb Conc 32.1 g/dL (32-36); Mean Corpuscular Hgb 30.6 pg (27.0-32.0); Mean Corpuscular Volume 95.5 fL (81-99); Mean Platelet Vol. 9.8 fl (6.2-12.0); Monocyte# 0.51 X10^3/uL; Monocyte% 6.1 % (0-10); NRBC Flagged by Analyzer 0 % (0-5); Neutrophil # 3.95 X10^3/uL (2.7-7.7); Neutrophil % 47.1 % (47-70); Platelet Count 375 K/mm3 (150-450); RBC Distribution Width CV 13.7 % (11.6-14.6); RBC Distribution Width SD 47.8 fl (35.1-43.9); Red Blood Count 4.18 M/mm3 (4.2-5.4); White Blood Count 8.4 K/mm3 (4.4-11.0)
[2021-01-16 09:37] LABS: AST(SGOT) 18 U/L (15-37); Alanine Aminotransfer ALT/SGPT 29 U/L (13-56); Albumin, Serum 3.7 g/dL (3.2-5.0); Alkaline Phosphatase 130 U/L (45-117); Anion Gap 7 (5-15); BUN 21 mg/dL (7-18); BUN/Creat Ratio 21.7 RATIO (10-20); Calcium,Total 9.1 mg/dL (8.5-10.1); Chloride 104 mmol/L (98-107); Creatinine, Serum 0.97 mg/dL (0.55-1.02); EST Glomerular Filtration Rate 61 mL/min (>60); Est Glom Filt Rate - Afr Amer 74 mL/min (>60); Globulin 3.7 g/dL (2.2-4.2); Glucose 117 mg/dL (74-106); Potassium 3.3 mmol/L (3.5-5.1); Protein, Total 7.4 g/dL (6.4-8.2); Sodium Level 142 mmol/L (136-145)
== END ==
PROVIDERS: PCP Internal Medicine; Referring Provider Internal Medicine Rheumatology; Visit Provider Internal Medicine Rheumatology
DX: M06.4 Inflammatory polyarthropathy (principal); M79.7 Fibromyalgia; M17.0 Bilateral primary osteoarthritis of knee; M16.0 Bilateral primary osteoarthritis of hip; E27.9 Disorder of adrenal gland, unspecified; D47.2 Monoclonal gammopathy; M21.40 Flat foot [pes planus] (acquired), unspecified foot; E03.9 Hypothyroidism, unspecified; G47.419 Narcolepsy without cataplexy; H81.03 Meniere's disease, bilateral; M51.37 Other intervertebral disc degeneration, lumbosacral region; M47.897 Other spondylosis, lumbosacral region; M47.892 Other spondylosis, cervical region; K22.70 Barrett's esophagus without dysplasia; E66.01 Morbid (severe) obesity due to excess calories
CPT/HCPCS: 36415; 80053; 82024; 82533; 85025

== ENCOUNTER → 2021-04-11 12:06 | Outpatient (CLI) | payer MEDICARE, OTHER, SELFPAY ==
[2021-04-11 15:04] LABS: Absolute Lymphocyte Count 3.32 X10^3/uL (0.83-4.51); Absolute Neutrophil Count 3.5 X10^3/uL (2.0-7.7); Basophil# 0.06 X10^3/uL; Basophil% 0.8 % (0-1); Eosinophil# 0.15 X10^3/uL; Hematocrit 37.8 % (37-47); Hemoglobin 11.9 g/dL (12.0-15.0); Lymphocyte # 3.32 X10^3/ul (0.83-4.51); Lymphocyte % 44.1 % (19-41); Mean Corp Hgb Conc 31.5 g/dL (32-36); Mean Corpuscular Volume 92.2 fL (81-99); Mean Platelet Vol. 9.9 fl (6.2-12.0); Monocyte# 0.46 X10^3/uL; Monocyte% 6.1 % (0-10); NRBC Flagged by Analyzer 0 % (0-5); Neutrophil # 3.52 X10^3/uL (2.7-7.7); Neutrophil % 46.7 % (47-70); Platelet Count 417 K/mm3 (150-450); RBC Distribution Width CV 13.7 % (11.6-14.6); RBC Distribution Width SD 46.5 fl (35.1-43.9); White Blood Count 7.5 K/mm3 (4.4-11.0)
[2021-04-11 15:32] LABS: AST(SGOT) 20 U/L (15-37); Alanine Aminotransfer ALT/SGPT 30 U/L (13-56); Albumin, Serum 3.9 g/dL (3.2-5.0); Alkaline Phosphatase 130 U/L (45-117); Anion Gap 3 (5-15); BUN 27 mg/dL (7-18); BUN/Creat Ratio 30.4 RATIO (10-20); Calcium,Total 9.4 mg/dL (8.5-10.1); Chloride 106 mmol/L (98-107); Creatinine, Serum 0.89 mg/dL (0.55-1.02); EST Glomerular Filtration Rate 67 mL/min (>60); Est Glom Filt Rate - Afr Amer 81 mL/min (>60); Globulin 4.1 g/dL (2.2-4.2); Glucose 101 mg/dL (74-106); Sodium Level 140 mmol/L (136-145)
== END ==
PROVIDERS: PCP Internal Medicine; Referring Provider Internal Medicine Rheumatology; Visit Provider Internal Medicine Rheumatology
DX: M06.4 Inflammatory polyarthropathy (principal); Z79.899 Other long term (current) drug therapy; M79.7 Fibromyalgia; M17.0 Bilateral primary osteoarthritis of knee; M16.0 Bilateral primary osteoarthritis of hip; E27.9 Disorder of adrenal gland, unspecified; D47.2 Monoclonal gammopathy; M21.40 Flat foot [pes planus] (acquired), unspecified foot; E03.9 Hypothyroidism, unspecified; G47.419 Narcolepsy without cataplexy; H81.03 Meniere's disease, bilateral; M51.37 Other intervertebral disc degeneration, lumbosacral region; M47.897 Other spondylosis, lumbosacral region; M47.892 Other spondylosis, cervical region; K22.70 Barrett's esophagus without dysplasia
CPT/HCPCS: 36415; 80053; 85025

== ENCOUNTER → 2021-04-30 12:31 | Outpatient (CLI) | payer MEDICARE, OTHER, SELFPAY ==
--- NOTE | 2021-04-30 12:41 | MRI_ITS ---
STUDY: MRI CERVICAL SPINE WITHOUT CONTRAST REASON FOR EXAM: Female, 70 years old. SPONDYLOSIS W/ RADICULOPATHY -- pain neck, rt shoulder TECHNIQUE: Standardized fat and water weighted pulse sequences were obtained in the sagittal and axial planes. COMPARISON: CT 11/21/2020 FINDINGS: Normal foramen magnum and brainstem-cervical cord junction. Normal craniovertebral junction. Normal anterior atlantoaxial articulation. Normal odontoid process. There is straightening of the normal cervical lordosis. Normal vertebral bodies and posterior osseous elements. C2-3: Normal endplates. Normal disc height, signal and morphology. Normal central canal and intervertebral neural foramina. C3-4: Normal endplates. Normal disc height, signal and morphology. Normal central canal and intervertebral neural foramina. C4-5: Normal endplates. Normal disc height, signal and morphology. Normal central canal and intervertebral neural foramina. C5-6: Normal endplates. Normal disc height, signal and morphology. Normal central canal and intervertebral neural foramina. C6-7: Normal endplates. Normal disc height, signal and morphology. Normal central canal and intervertebral neural foramina. C7-T1: Normal endplates. Normal disc height, signal and morphology. Normal central canal and intervertebral neural foramina. Normal cervical cord. Normal visualized soft tissue structures. MRI/Spine Cervical (Routine) IMPRESSION: There is mild straightening of the normal cervical lordosis. This can suggest neck strain. No acute disc herniation. Electronically Signed: Karlos Headley MD at 15:02 EDT , Service support ,
== END ==
PROVIDERS: PCP Internal Medicine; Referring Provider Orthopaedic Surgery; Visit Provider Orthopaedic Surgery
DX: M47.22 Other spondylosis with radiculopathy, cervical region (principal); R20.2 Paresthesia of skin
CPT/HCPCS: 72141

== ENCOUNTER → 2021-05-18 11:46 | Outpatient (CLI) | payer MEDICARE, OTHER, SELFPAY ==
--- NOTE | 2021-05-18 12:18 | BI_ITS ---
MAMMOGRAPHY - BILATERAL SCREENING 3-D TOMOSYNTHESIS REASON FOR EXAM: Female, 70 years old. Breast cancer screening PERTINENT HISTORY: No significant family history. TECHNIQUE: 2-D mammograms and 3-D Tomosynthesis of the breast (s) were performed. CAD was performed. COMPARISON: 05/18/2019 FINDINGS: The breast composition is composed of scattered fibroglandular density. Scattered benign calcifications are seen. No dense spiculated masses or suspicious microcalcifications are identified. No architectural distortion is identified. There is no skin thickening or retraction. There has been no significant change since the prior study. BI/SCRN MAMM (CAD)W/GAEL BILAT IMPRESSION: No mammographic signs of malignancy. Routine yearly mammograms recommended. ASSESSMENT CATEGORY: BIRADS Category 1: Negative. A letter regarding these results will be sent to the patient by the facility within 30 days. FOLLOW UP RECOMMENDATION: Yearly follow up mammogram recommended. (A) Approximately 10% of breast cancers are not detected by mammography. A normal mammogram should not delay biopsy of a clinically suspicious abnormality. Electronically Signed: Parminder Freire MD at 15:45 EDT Tel , Service support ,
== END ==
PROVIDERS: PCP Internal Medicine; Referring Provider Internal Medicine; Visit Provider Internal Medicine
DX: Z12.31 Encounter for screening mammogram for malignant neoplasm of breast (principal)
CPT/HCPCS: 77063; 77067

== ENCOUNTER → 2021-07-03 10:22 | Outpatient (CLI) | payer MEDICARE, OTHER, SELFPAY ==
[2021-07-03 12:22] LABS: Absolute Lymphocyte Count 3.13 X10^3/uL (0.83-4.51); Basophil# 0.04 X10^3/uL; Basophil% 0.7 % (0-1); Eosinophil# 0.22 X10^3/uL; Eosinophils% 3.7 % (0-5); Hematocrit 36.2 % (37-47); Hemoglobin 11.4 g/dL (12.0-15.0); Lymphocyte # 3.13 X10^3/ul (0.83-4.51); Lymphocyte % 53.2 % (19-41); Mean Corp Hgb Conc 31.5 g/dL (32-36); Mean Corpuscular Hgb 28.7 pg (27.0-32.0); Mean Corpuscular Volume 91.2 fL (81-99); Mean Platelet Vol. 10.1 fl (6.2-12.0); Monocyte# 0.44 X10^3/uL; Monocyte% 7.5 % (0-10); NRBC Flagged by Analyzer 0 % (0-5); Neutrophil # 2.04 X10^3/uL (2.7-7.7); Neutrophil % 34.7 % (47-70); Platelet Count 369 K/mm3 (150-450); RBC Distribution Width CV 15.3 % (11.6-14.6); Red Blood Count 3.97 M/mm3 (4.2-5.4); White Blood Count 5.9 K/mm3 (4.4-11.0)
[2021-07-03 12:42] LABS: ALB/GLOB Ratio 0.9 RATIO (0.9-2.4); AST(SGOT) 20 U/L (15-37); Alanine Aminotransfer ALT/SGPT 26 U/L (13-56); Albumin, Serum 3.5 g/dL (3.2-5.0); Alkaline Phosphatase 137 U/L (45-117); Anion Gap 6 (5-15); BUN 19 mg/dL (7-18); Calcium,Total 9.1 mg/dL (8.5-10.1); Chloride 105 mmol/L (98-107); Creatinine, Serum 0.95 mg/dL (0.55-1.02); EST Glomerular Filtration Rate 62 mL/min (>60); Est Glom Filt Rate - Afr Amer 75 mL/min (>60); Globulin 3.9 g/dL (2.2-4.2); Glucose 104 mg/dL (74-106); Potassium 3.7 mmol/L (3.5-5.1); Protein, Total 7.4 g/dL (6.4-8.2); Sodium Level 139 mmol/L (136-145)
== END ==
PROVIDERS: PCP Internal Medicine; Referring Provider Internal Medicine Rheumatology; Visit Provider Internal Medicine Rheumatology
DX: M06.4 Inflammatory polyarthropathy (principal); M79.7 Fibromyalgia; M17.0 Bilateral primary osteoarthritis of knee; M16.0 Bilateral primary osteoarthritis of hip; E27.9 Disorder of adrenal gland, unspecified; D47.2 Monoclonal gammopathy; M21.40 Flat foot [pes planus] (acquired), unspecified foot; E03.9 Hypothyroidism, unspecified; G47.419 Narcolepsy without cataplexy; H81.03 Meniere's disease, bilateral; M51.37 Other intervertebral disc degeneration, lumbosacral region; M47.897 Other spondylosis, lumbosacral region; M47.892 Other spondylosis, cervical region; K22.70 Barrett's esophagus without dysplasia
CPT/HCPCS: 36415; 80053; 85025

== ENCOUNTER → 2021-07-04 08:50 | Outpatient (CLI) | payer MEDICARE, OTHER, SELFPAY ==
[2021-07-04 11:00] LABS: Hemoglobin A1c 5.8 % (3.8-5.6)
[2021-07-04 11:14] LABS: ALB/GLOB Ratio 0.9 RATIO (0.9-2.4); AST(SGOT) 22 U/L (15-37); Alanine Aminotransfer ALT/SGPT 26 U/L (13-56); Albumin, Serum 3.5 g/dL (3.2-5.0); Alkaline Phosphatase 139 U/L (45-117); Anion Gap 9 (5-15); BUN 16 mg/dL (7-18); BUN/Creat Ratio 16.5 RATIO (10-20); Calcium,Total 9.1 mg/dL (8.5-10.1); Chloride 102 mmol/L (98-107); Cholesterol 165 mg/dL (200); Creatinine, Serum 0.97 mg/dL (0.55-1.02); EST Glomerular Filtration Rate 61 mL/min (>60); Est Glom Filt Rate - Afr Amer 74 mL/min (>60); Free T3 3.5 pg/mL (2.18-3.98); Glucose 109 mg/dL (74-106); High Density Lipoprotein 55 mg/dL; Potassium 3.7 mmol/L (3.5-5.1); Protein, Total 7.5 g/dL (6.4-8.2); Sodium Level 140 mmol/L (136-145); Thyroid Stim Hormone (TSH) 3.69 uIU/mL (0.358-3.74); Triglycerides 99 mg/dL; Very Low Density Lipoprotein 20 mg/dL (5-40)
== END ==
PROVIDERS: PCP Internal Medicine; Visit Provider Internal Medicine Endocrinology, Diabetes & Metabolism
DX: E03.9 Hypothyroidism, unspecified (principal); R73.03 Prediabetes; E66.01 Morbid (severe) obesity due to excess calories; M06.9 Rheumatoid arthritis, unspecified; E55.9 Vitamin D deficiency, unspecified
CPT/HCPCS: 36415; 80053; 80061; 83036; 84443; 84481

== ENCOUNTER 2021-09-11 10:21 | Outpatient (CLI) | payer MEDICARE, OTHER, SELFPAY ==
[2021-09-11 11:15] LABS: Absolute Lymphocyte Count 3.13 X10^3/uL (0.83-4.51); Absolute Neutrophil Count 3.3 X10^3/uL (2.0-7.7); Basophil# 0.05 X10^3/uL; Basophil% 0.7 % (0-1); Eosinophils% 2.7 % (0-5); Hematocrit 38.2 % (37-47); Hemoglobin 12.3 g/dL (12.0-15.0); Lymphocyte # 3.13 X10^3/ul (0.83-4.51); Mean Corp Hgb Conc 32.2 g/dL (32-36); Mean Corpuscular Hgb 29.1 pg (27.0-32.0); Mean Corpuscular Volume 90.3 fL (81-99); Monocyte# 0.57 X10^3/uL; Monocyte% 7.8 % (0-10); NRBC Flagged by Analyzer 0 % (0-5); Neutrophil % 45.4 % (47-70); Platelet Count 362 K/mm3 (150-450); RBC Distribution Width CV 14.5 % (11.6-14.6); RBC Distribution Width SD 47.7 fl (35.1-43.9); Red Blood Count 4.23 M/mm3 (4.2-5.4); White Blood Count 7.3 K/mm3 (4.4-11.0)
[2021-09-11 11:57] LABS: AST(SGOT) 26 U/L (15-37); Alanine Aminotransfer ALT/SGPT 38 U/L (13-56); Albumin, Serum 3.9 g/dL (3.2-5.0); Alkaline Phosphatase 150 U/L (45-117); Anion Gap 8 (5-15); BUN 28 mg/dL (7-18); BUN/Creat Ratio 32.7 RATIO (10-20); Calcium,Total 9.2 mg/dL (8.5-10.1); Chloride 103 mmol/L (98-107); Creatinine, Serum 0.86 mg/dL (0.55-1.02); EST Glomerular Filtration Rate 70 mL/min (>60); Est Glom Filt Rate - Afr Amer 85 mL/min (>60); Globulin 4.1 g/dL (2.2-4.2); Glucose 126 mg/dL (74-106); Potassium 3.5 mmol/L (3.5-5.1); Sodium Level 137 mmol/L (136-145)
[2021-09-11 15:40] LABS: LDH 292 U/L (84-246); Uric Acid 5.1 mg/dL (2.6-6.0)
[2021-09-11 16:14] LABS: Erythrocyte Sedimentation Rate 38 mm/hr (0-30)
[2021-09-12 17:24] LABS: Anti-Mitochondrial AB <20.0 Units (0.0-20.0)
[2021-09-15 22:06] LABS: Albumin 3.8 g/dL (2.9-4.4); Alpha-1-Globulins 0.3 g/dL (0.0-0.4); Alpha-2-Globulins 0.9 g/dL (0.4-1.0); Free Kappa Light Chains 16.3 mg/L (3.3-19.4); Free Lambda Light Chains 22.8 mg/L (5.7-26.3); Immunoglobulin A 408 mg/dL (87-352); Immunoglobulin G 952 mg/dL (586-1602); Immunoglobulin M 67 mg/dL (26-217); PROEL- TOTAL PROTEIN 7.5 g/dL (6.0-8.5)
[2021-09-16 04:06] LABS: Ceruloplasmin 32.7 mg/dL (19.0-39.0); Cytoplasmic Ab (C-ANCA) <1:20 titer (Neg:<1:20); Endomysial Antibody IgA Negative (Negative); Immunoglobulin A 447 mg/dL (87-352); Immunoglobulin E 321 IU/mL (6-495); Immunoglobulin G 1000 mg/dL (586-1602)
[2021-09-16 07:44] LABS: Anti-Smooth Muscle ABS 7 Units (0-19); Copper, Serum or Plasma 120 ug/dL (80-158); Immunoglobulin M 70 mg/dL (26-217); Perinuclear Ab (P-ANCA) <1:20 titer (Neg:<1:20); t-Transglutaminase IgA <2 U/mL (0-3)
== END 2021-09-11 23:59 | disposition home or self-care (01) ==
LOC: LAB 10:26
PROVIDERS: Internal Medicine Gastroenterology; Internal Medicine Medical Oncology; PCP Internal Medicine; Referring Provider Internal Medicine Rheumatology; Visit Provider Internal Medicine Rheumatology
DX: M06.4 Inflammatory polyarthropathy (principal); E27.9 Disorder of adrenal gland, unspecified; Z79.899 Other long term (current) drug therapy; M79.7 Fibromyalgia; M17.0 Bilateral primary osteoarthritis of knee; M16.0 Bilateral primary osteoarthritis of hip; D47.2 Monoclonal gammopathy; M21.40 Flat foot [pes planus] (acquired), unspecified foot; E03.9 Hypothyroidism, unspecified; G47.19 Other hypersomnia; M51.37 Other intervertebral disc degeneration, lumbosacral region; M47.897 Other spondylosis, lumbosacral region; K22.70 Barrett's esophagus without dysplasia; H81.03 Meniere's disease, bilateral
CPT/HCPCS: 80053; 82390; 82525; 82784; 82785; 83516; 83615; 83883; 84165; 84550; 85025; 85652; 86255; 86256; 86334

== ENCOUNTER 2021-10-03 14:54 | Outpatient (CLI) | payer MEDICARE, OTHER, SELFPAY ==
--- NOTE | 2021-10-03 14:56 | CT_ITS ---
STUDY: CT ABDOMEN AND PELVIS WITH CONTRAST REASON FOR EXAM: Female, 70 years old. Abdominal pain. Sudden onset of uncontrolled diarrhea. RADIATION DOSAGE (If Supplied By Facility): CTDIvol = ( 15.41 ) mGy, DLP = ( 1223.08 ) mGycm TECHNIQUE: Transaxial images were obtained from the dome of the diaphragm to the symphysis pubis with oral contrast. 100 mL of ISOVUE-300 was administered. Sagittal and coronal images were reconstructed. Individualized dose optimization techniques were used for this CT. COMPARISON: None. FINDINGS: The visualized lung bases are unremarkable. The visualized portions of the heart are within normal limits. Fatty infiltration liver without focal mass. There are surgical clips in the gallbladder fossa consistent with a prior cholecystectomy. Normal spleen. Normal pancreas. Normal bilateral adrenal glands. Normal right kidney. Normal left kidney. Normal visualized ureters. Normal visualized stomach. Normal small intestine. Anterior and feces are seen throughout nondistended colon. There is no mass or obstruction. The appendix is visualized and appears normal. There is diffuse atherosclerotic calcification of the abdominal aorta, without a demonstrated aneurysm. Normal inferior vena cava. Normal retroperitoneum. Normal urinary bladder. Unremarkable vaginal cuff. No pelvic lymphadenopathy. No free air or free fluid is seen within the peritoneal cavity. Normal abdominal wall. There are diffuse degenerative changes of the visualized lumbar spine. There is slight anterolisthesis of L5 on S1 without pars defects. CT/Abdomen/Pelvis WITH Contrast IMPRESSION: 1. No visualized abnormality of the small bowel or colon. 2. Fatty infiltration of the liver. 3. Status post hysterectomy and cholecystectomy. 4. Degenerative changes of the lumbar spine. Electronically Signed: Arnoldo Deleon DO at 23:57 EST ,
== END 2021-10-03 23:59 | disposition home or self-care (01) ==
LOC: CT 14:55
PROVIDERS: PCP Internal Medicine; Referring Provider Internal Medicine Gastroenterology; Visit Provider Internal Medicine Gastroenterology
DX: R10.31 Right lower quadrant pain (principal); K59.00 Constipation, unspecified
CPT/HCPCS: 74177; Q9967

== ENCOUNTER 2021-10-12 13:27 | Outpatient (CLI) | payer MEDICARE, OTHER, SELFPAY | END 2021-10-12 23:59 | disposition home or self-care (01) | LOC: MTLAB 13:30 | PROVIDERS: PCP Internal Medicine; Referring Provider Internal Medicine Gastroenterology; Visit Provider Internal Medicine Gastroenterology | DX: B83.9 Helminthiasis, unspecified (principal) | CPT/HCPCS: 87177; 87209 ==

== ENCOUNTER 2021-10-23 11:04 | Outpatient (CLI) | payer MEDICARE, OTHER, SELFPAY ==
[2021-10-23 11:23] LABS: Absolute Lymphocyte Count 3.02 X10^3/uL (0.83-4.51); Absolute Neutrophil Count 2.4 X10^3/uL (2.0-7.7); Basophil# 0.03 X10^3/uL; Basophil% 0.5 % (0-1); Eosinophils% 3.3 % (0-5); Hematocrit 35.1 % (37-47); Hemoglobin 11.2 g/dL (12.0-15.0); Lymphocyte # 3.02 X10^3/ul (0.83-4.51); Lymphocyte % 49.8 % (19-41); Mean Corp Hgb Conc 31.9 g/dL (32-36); Mean Corpuscular Hgb 29.6 pg (27.0-32.0); Mean Corpuscular Volume 92.6 fL (81-99); Mean Platelet Vol. 9.5 fl (6.2-12.0); Monocyte% 6.6 % (0-10); NRBC Flagged by Analyzer 0 % (0-5); Neutrophil % 39.6 % (47-70); Platelet Count 357 K/mm3 (150-450); RBC Distribution Width CV 14.3 % (11.6-14.6); RBC Distribution Width SD 48.2 fl (35.1-43.9); Red Blood Count 3.79 M/mm3 (4.2-5.4); White Blood Count 6.1 K/mm3 (4.4-11.0)
[2021-10-23 12:01] LABS: AST(SGOT) 18 U/L (15-37); Alanine Aminotransfer ALT/SGPT 26 U/L (13-56); Albumin, Serum 3.7 g/dL (3.2-5.0); Alkaline Phosphatase 136 U/L (45-117); Anion Gap 3 (5-15); BUN 23 mg/dL (7-18); BUN/Creat Ratio 26.6 RATIO (10-20); Calcium,Total 8.8 mg/dL (8.5-10.1); Chloride 107 mmol/L (98-107); Creatinine, Serum 0.86 mg/dL (0.55-1.02); EST Glomerular Filtration Rate 69 mL/min (>60); Est Glom Filt Rate - Afr Amer 84 mL/min (>60); Globulin 3.6 g/dL (2.2-4.2); Glucose 117 mg/dL (74-106); Protein, Total 7.3 g/dL (6.4-8.2); Sodium Level 140 mmol/L (136-145)
== END 2021-10-23 23:59 | disposition home or self-care (01) ==
LOC: LAB 11:06
PROVIDERS: PCP Internal Medicine; Visit Provider Internal Medicine Rheumatology
DX: M06.4 Inflammatory polyarthropathy (principal); E27.9 Disorder of adrenal gland, unspecified; M79.7 Fibromyalgia; M17.0 Bilateral primary osteoarthritis of knee; M16.0 Bilateral primary osteoarthritis of hip; D47.2 Monoclonal gammopathy; M21.40 Flat foot [pes planus] (acquired), unspecified foot; E03.9 Hypothyroidism, unspecified; G47.419 Narcolepsy without cataplexy; H81.03 Meniere's disease, bilateral; M51.37 Other intervertebral disc degeneration, lumbosacral region; M47.897 Other spondylosis, lumbosacral region; M47.892 Other spondylosis, cervical region; K22.70 Barrett's esophagus without dysplasia; Z79.899 Other long term (current) drug therapy
CPT/HCPCS: 36415; 80053; 85025

== ENCOUNTER 2021-10-24 10:52 | Day surgery (SDC) | payer MEDICARE, OTHER, SELFPAY ==
--- NOTE | 2021-10-24 | ESO_PTH ---
PATIENT: MITCHELL MENON LOC: EN U#:[id number] AGE/SX: 70/F ROOM: RE10/24/[address]: Dr. Vahe Reese DO : 1950 BED: DIS: 10/24/2021 SPEC #: [id number] RECD: 10/24/21 14:34 STATUS: PITA CORTÉS #: [id number] AYHSA: 10/24/21 00:[address]: Vahe Reese DEPT: SURGICAL PATHOLOGY RECD BY: Jonas Piña ENTERED: 10/25/21 07:52 SP TYPE: NICOLE TORO DR: Dr. Yoanna Hull MD Tissues: Esophagus, NOS Procedures: Special Stain Group II Surgery Specimen Level IV Alcian Blue/PAS (control) HEADER OPERATION: [place]oscopy, [place] [place] PRE-OP DIAGNOSIS: Roman?s esophagus, history of colon polyps TISSUE SUBMITTED: Distal esophagus biopsy MICROSCOPIC DIAGNOSIS Distal esophagus, biopsy: Gastroesophageal junctional mucosa with mild chronic inflammation. No evidence of goblet cell metaplasia. See comment. AM:fan 10/26/2021 COMMENT Alcian blue/PAS stain with matched control supports the above diagnosis. MICROSCOPIC DESCRIPTION Slides are reviewed. GROSS DESCRIPTION Received in fixative is one container labeled with the patient's name and designated distal esophagus biopsy. The specimen consists of two irregular fragments of light hernandes soft tissue that in aggregate measure 0.5 x 0.3 x 0.1 cm. The specimen is totally submitted in one cassette. / AM:fan 10/25/2021 TC:3 CPT: 32987, 23454
--- NOTE | 2021-10-24 10:59 | PCM.HP.BLA ---
History and Physical Date of Admission: 10/24/21 70-year-old female, currently under the care of Dr. Hull, who presents for evaluation secondary to routine follow-up. She was discovered to have hepatomegaly and elevated liver function tests. She also has a history of Roman's esophagus. She is following with pulmonary medicine secondary to obstructive sleep apnea. She is not having any chest pain or shortness of breath. She is not having nausea. She is not having weakness. She has no pre-existing history of liver disease. She underwent upper endoscopy and was discovered a short segment Roman's esophagus with intact metaplasia and without dysplasia or cancer. She needs to set up a colonoscopy also because of history of polyps. Patient reports she has been noticing increased shortness of breath recently. Patient will also be spontaneously pursed lip breathing. Patient states she is checked her saturations and they are in the low 90s. Patient does admit that she has been having many recent events including the holidays, 5 funerals and weddings leading to higher salt intake. Patient is noted some slightly increased edema of the right lower extremity. Patient is not reporting any increase constitutional symptoms such as congestion, fever, chills, nausea or vomiting. She has had elevated liver tests in the past. There is no etiology to her elevated liver function test and she has not had any recent imaging. Review of systems otherwise negative from a constitutional, HEENT, respiratory, cardiovascular, GI, genitourinary, musculoskeletal, skin, neurologic, psychiatric and hematologic system unless stated above. ROS Const Constitutional: Positive for frequent falls and weight change; No snoring, abnormal sleep pattern or change in appetite Eyes Eyes: Positive for blurry vision and irritation ENT ENT: Positive for nasal congestion and hoarseness Resp Respiratory: No cough, change in phlegm color, chest congestion, excessive phlegm production, hemoptysis, pain on inspiration, shortness of breath, pain with cough, snoring, stridor, wheezing or other Cardio Cardiology: Positive for leg pain with exertion; No chest pain at rest, chest pain with exertion, shortness of breath, dyspnea on exertion, generalized swelling, irregular heart rhythm, lightheadedness, orthopnea, radiating jaw, neck or arm pain, fast heart rate, slow heart rate, palpitations, difficulty breathing or other Gastro GI: Positive for abdominal pain, change in bowel habits, constipation, diarrhea, heartburn and Blood in stool Genitourinary-Female: No difficulty urinating, burning urination, painful urination, urinary incontinence, urinary frequency, urinary urgency, urinary hesitancy, urinary retention, blood in urine, Frequent nighttime urination/ nocturia, post void dribbling, suprapubic fullness, side pain, sexual problems, genital lesions, genital itching, hot flashes, abnormal periods, abnormal vaginal bleeding, absent period, painful periods, light periods, heavy periods, difficulty getting , painful intercourse, pelvic pain, vaginal dryness, vaginal odor, Vaginal Itching or other Musc Musculoskeletal: Positive for joint pain, back pain, joint swelling, muscle cramps, muscle weakness, numbness, tingling and leg pain with exertion Skin Skin: No acne, hair loss in leg, change in hair, nail changes, boil, change in skin color, dry skin, redness, excessive hair growth, yellowing of the eye, lesions, itchy eyes, rash, skin pain, skin ulcer, sores, skin swelling, wounds or other Breast Breast: No change in breast shape, breast lump, breast pain, breast skin changes, breast swelling, nipple discharge or other Neuro Neurology: Positive for frequent falls, numbness and tingling; No behavioral changes, confusion or memory loss Psych Psychiatric: No abnormal sleep pattern, No lack of enjoyment, No anxiety, No behavioral changes, No change in appetite, No confusion, No depression, No difficulty concentrating, No hopelessness, No irritability, No memory loss, No mood swings, No panic attacks, No paranoia, No Thoughts of harming yourself/Others, No hallucinations, No Behavioral Problems, No Compulsive Behavior, No hyperactivity, No inattentiveness, No obsessions/compulsions, No Temper Tantrums, No suicidal ideation and No other Endo Endocrine: Positive for heat intolerance, increased thirst/drinking, increased hunger and weight change Aller/Imm Allergy/Immunologic: No itchy eyes or wheezing Exam Const General: cooperative and comfortable Nutritional Appearance: average body habitus and well nourished [facility] Head: normal to inspection Ears: hearing grossly normal bilaterally Nose: external nose normal Face and sinus: normal facial exam Mouth: oral mucosae normal Throat: posterior oropharynx normal Eyes General: appearance normal, both eyes and all related structures Neck Neck: normal visual inspection Chest Chest palpation & inspection: normal inspection of the chest and normal palpation of entire chest wall Resp Effort & Inspection: normal respiratory effort Auscultation: Bilateral: Clear to Auscultation Cardio Palpation: normal PMI Rate: regular rate Rhythm: regular rhythm GI Inspection: normal to inspection Auscultation: normal bowel sounds Percussion: normal to percussion Palpation: no hepatosplenomegaly Skin General: no rashes or lesions noted Neuro General: patient alert Extrem General: normal to inspection Psych Affect: normal affect Quality Reporting Tobacco Screening ([facility] 138) Smoking Status: Never smoker Assessment and Plan Assessment and Plan (1) Roman esophagus: Status: Chronic Orders: Orders: Anti-Mitochondrial AB 09/11/21 ANCA 09/11/21 Anti-Smooth Muscle ABS 09/11/21 Celiac Disease Profile 09/11/21 Ceruloplasmin 09/11/21 Copper, Serum or Plasma 09/11/21 Immunoglobulin E 09/11/21 Immunoglobulin G 09/11/21 Immunoglobulin M 09/11/21 Plan - Dr. Cotter Friend, DO: She needs an EGD for surveillance of Roman's esophagus. Continue PPI as previously ordered. (2) History of colon polyps: Status: Acute Plan - Dr. Cotetr Friend, DO: We will set up for colonoscopy for for screening purposes. I have re-examined the patient. There are no clinical changes since date of exam.
[2021-10-24 11:31] VITALS: BP 152/82; PULSE 89; RESP 18; TEMP 36.4; O2SAT 100; BMI 42.5
[2021-10-24] MEDS: Lactated Ringers 1,000 ML 15 ML IV (11:36)
--- NOTE | 2021-10-24 13:29 | OP.EGD_ITS ---
Patient Name: Bebeto Dejesus Procedure Date: 10/24/2021 12:34 PM Date of : 1950 Age: 70 Procedure: Upper GI endoscopy Indications: Functional Dyspepsia, Heartburn Providers: Vahe Reese DO Referring MD: Vahe Reese DO Medicines: See the Anesthesia note for documentation of the administered medications Patient Profile: Patient has symptoms of chronic dyspepsia and chronic heartburn. Complications: No immediate complications. Procedure: Pre-Anesthesia Assessment: - Prior to the procedure, a History and Physical was performed, and patient medications and allergies were reviewed. The risks and benefits of the procedure and the sedation options and risks were discussed with the patient. All questions were answered and informed consent was obtained. Patient identification and proposed procedure were verified by the physician in the pre-procedure area. Mental Status Examination: alert and oriented. Airway Examination: normal oropharyngeal airway and neck mobility. Respiratory Examination: clear to auscultation. CV Examination: normal. Prophylactic Antibiotics: The patient does not require prophylactic antibiotics. Prior Anticoagulants: The patient has taken no previous anticoagulant or antiplatelet agents. ASA Grade Assessment: II - A patient with mild systemic disease. After reviewing the risks and benefits, the patient was deemed in satisfactory condition to undergo the procedure. The anesthesia plan was to use moderate sedation / analgesia (conscious sedation). Immediately prior to administration of medications, the patient was re-assessed for adequacy to receive sedatives. The heart rate, respiratory rate, oxygen saturations, blood pressure, adequacy of pulmonary ventilation, and response to care were monitored throughout the procedure. The physical status of the patient was re-assessed after the procedure. After obtaining informed consent, the endoscope was passed under direct vision. Throughout the procedure, the patient's blood pressure, pulse, and oxygen saturations were monitored continuously. The gastroscope was introduced through the mouth, and advanced to the second part of duodenum. The upper GI endoscopy was accomplished without difficulty. The patient tolerated the procedure well. Moderate Sedation: Moderate (conscious) sedation was administered by the endoscopy nurse and supervised by the endoscopist. The patient's oxygen saturation, heart rate, blood pressure and response to care were monitored. Total physician intraservice time was 15 minutes. Scope In: 12:47:08 PM Scope Out: 12:52:19 PM Total Procedure Duration Time 0 hours 5 minutes 11 seconds Findings: LA Grade A (one or more mucosal breaks less than 5 mm, not extending between tops of 2 mucosal folds) esophagitis with no bleeding was found 37 to 39 cm from the incisors. Biopsies were taken with a cold forceps for histology. Verification of patient identification for the specimen was done. Estimated blood loss was minimal. The entire examined stomach was normal. The second portion of the duodenum was normal. Impression: - LA Grade A reflux esophagitis. Biopsied. - Normal stomach. - Normal second portion of the duodenum. Recommendation: - Discharge patient to home. - Resume previous diet. - Continue present medications. - Await pathology results. Procedure Code(s): --- Professional --- 17609, Esophagogastroduodenoscopy, flexible, transoral; with biopsy, single or multiple 41963, 59, Moderate sedation services provided by the same physician or other qualified health health care sanitary technician performing the diagnostic or therapeutic service that the sedation supports, requiring the presence of an independent trained observer to assist in the monitoring of the patient's level of consciousness and physiological status; initial 15 minutes of intraservice time, patient age 5 years or older CPT copyright 2017 [employer]. All rights reserved. The codes documented in this report are preliminary and upon pet training instructor review may be revised to meet current compliance requirements. Vahe Reese DO 10/24/2021 1:29:07 PM This report has been signed electronically. Number of Addenda: 1 Note Initiated On: 10/24/2021 12:34 PM Addendum Number: 1 Addendum Date: 05/08/2022 6:26:43 AM MAC was used as sedation for this procedure. Vahe Reese DO 05/08/2022 6:26:52 AM This report has been signed electronically.
[2021-10-24 13:30] VITALS: BP 102/45; BP 152/82; PULSE 78; RESP 16; TEMP 36.1; O2SAT 100
--- NOTE | 2021-10-24 13:30 | OP.CCLET_ITS ---
05/08/2022 Yoanna Hull MD [address] [place] [address] [place] [address] Re : Upper GI endoscopy procedure for Bebeto [place] Dear Dr. Hull This procedure was performed on Sunday, October 24, 2021. My impressions and recommendations are as follows: Impressions : - LA Grade A reflux esophagitis. Biopsied. - Normal stomach. - Normal second portion of the duodenum. Recommendations : - Discharge patient to home. - Resume previous diet. - Continue present medications. - Await pathology results. My findings are described in the full procedure note, which is enclosed. If I can be of further assistance, please feel free to contact me at . Sincerely, Vahe Friend, 10/24/2021 1:29:07 PM This report has been signed electronically.
--- NOTE | 2021-10-24 13:34 | OP.COLON_ITS ---
Patient Name: Bebeto Dejesus Procedure Date: 10/24/2021 12:53 PM Date of : 1950 Age: 70 Procedure: Colonoscopy Indications: Follow-up for history of adenomatous polyps in the colon Providers: Vahe Reese DO Referring MD: Vahe Reese DO Medicines: See the Anesthesia note for documentation of the administered medications Patient Profile: Patient has symptoms of chronic dyspepsia and chronic heartburn. Last Colonoscopy: 5 years ago. Complications: No immediate complications. Procedure: Pre-Anesthesia Assessment: - Prior to the procedure, a History and Physical was performed, and patient medications and allergies were reviewed. The risks and benefits of the procedure and the sedation options and risks were discussed with the patient. All questions were answered and informed consent was obtained. Patient identification and proposed procedure were verified by the physician in the pre-procedure area. Mental Status Examination: alert and oriented. Airway Examination: normal oropharyngeal airway and neck mobility. Respiratory Examination: clear to auscultation. CV Examination: normal. Prophylactic Antibiotics: The patient does not require prophylactic antibiotics. Prior Anticoagulants: The patient has taken no previous anticoagulant or antiplatelet agents. ASA Grade Assessment: II - A patient with mild systemic disease. After reviewing the risks and benefits, the patient was deemed in satisfactory condition to undergo the procedure. The anesthesia plan was to use moderate sedation / analgesia (conscious sedation). Immediately prior to administration of medications, the patient was re-assessed for adequacy to receive sedatives. The heart rate, respiratory rate, oxygen saturations, blood pressure, adequacy of pulmonary ventilation, and response to care were monitored throughout the procedure. The physical status of the patient was re-assessed after the procedure. After I obtained informed consent, the scope was passed under direct vision. Throughout the procedure, the patient's blood pressure, pulse, and oxygen saturations were monitored continuously. The pediatric colonoscope was introduced through the anus and advanced to the cecum, identified by appendiceal orifice and ileocecal valve. The colonoscopy was performed without difficulty. The patient tolerated the procedure well. The quality of the bowel preparation was inadequate. Moderate Sedation: Moderate (conscious) sedation was administered by the endoscopy nurse and supervised by the endoscopist. The patient's oxygen saturation, heart rate, blood pressure and response to care were monitored. Total physician intraservice time was 15 minutes. Scope In: 12:55:29 PM Scope Withdrawal Time 0 hours 14 minutes 43 seconds Scope Out: 1:24:26 PM Total Procedure Duration Time 0 hours 28 minutes 57 seconds Findings: The perianal and digital rectal examinations were normal. A large amount of stool was found in the recto-sigmoid colon, in the sigmoid colon, in the descending colon, at the splenic flexure, in the transverse colon, at the hepatic flexure, in the ascending colon and in the cecum, interfering with visualization. Lavage of the area was performed using greater than 500 mL of normal saline, resulting in incomplete clearance with continued poor visualization. Impression: - Preparation of the colon was inadequate. - Stool in the recto-sigmoid colon, in the sigmoid colon, in the descending colon, at the splenic flexure, in the transverse colon, at the hepatic flexure, in the ascending colon and in the cecum. - No specimens collected. Recommendation: - Discharge patient to home. - Resume previous diet. - Continue present medications. - Repeat colonoscopy in 3 years because the bowel preparation was suboptimal. - Return to GI clinic. Procedure Code(s): --- Professional --- 10783, Colonoscopy, flexible; diagnostic, including collection of specimen(s) by brushing or washing, when performed (separate procedure) 50398, 59, Moderate sedation services provided by the same physician or other qualified health personal care attendant performing the diagnostic or therapeutic service that the sedation supports, requiring the presence of an independent trained observer to assist in the monitoring of the patient's level of consciousness and physiological status; initial 15 minutes of intraservice time, patient age 5 years or older CPT copyright 2017 [employer]. All rights reserved. The codes documented in this report are preliminary and upon remote medical coder review may be revised to meet current compliance requirements. Vahe Reese DO 10/24/2021 1:34:28 PM This report has been signed electronically. Number of Addenda: 1 Note Initiated On: 10/24/2021 12:53 PM Addendum Number: 1 Addendum Date: 05/08/2022 6:26:59 AM MAC was used as sedation for this procedure. Vahe Reese DO 05/08/2022 6:27:03 AM This report has been signed electronically.
[2021-10-24 13:35] VITALS: BP 117/70; BP 152/82; PULSE 79; RESP 16; O2SAT 100
--- NOTE | 2021-10-24 13:35 | OP.CCLET_ITS ---
05/08/2022 Yoanna Hull MD [address] [place] [address] [place] [address] Re : Colonoscopy procedure for Bebeto [place] Dear Dr. Hull This procedure was performed on Sunday, October 24, 2021. My impressions and recommendations are as follows: Impressions : - Preparation of the colon was inadequate. - Stool in the recto-sigmoid colon, in the sigmoid colon, in the descending colon, at the splenic flexure, in the transverse colon, at the hepatic flexure, in the ascending colon and in the cecum. - No specimens collected. Recommendations : - Discharge patient to home. - Resume previous diet. - Continue present medications. - Repeat colonoscopy in 3 years because the bowel preparation was suboptimal. - Return to GI clinic. My findings are described in the full procedure note, which is enclosed. If I can be of further assistance, please feel free to contact me at . Sincerely, Vahe Reese, 10/24/2021 1:34:28 PM This report has been signed electronically.
[2021-10-24 13:40] VITALS: BP 119/71; BP 152/82; PULSE 81; RESP 16; O2SAT 100
[2021-10-24 13:45] VITALS: BP 122/67; BP 152/82; PULSE 80; RESP 16; TEMP 36.1; O2SAT 100
[2021-10-24 14:11] VITALS: BP 152/82
== END 2021-10-24 23:59 | disposition home or self-care (01) ==
LOC: EN 10:53 → AC 10:53
PROVIDERS: PCP Internal Medicine; Referring Provider Internal Medicine Gastroenterology; Visit Provider Internal Medicine Gastroenterology
PROC: 0DJD8ZZ Inspection of Lower Intestinal Tract, Via Natural or Artificial Opening Endoscopic (ICD-10-PCS; CPT 45378; principal; 2021-10-24 11:55)
DX: K22.70 Barrett's esophagus without dysplasia (principal); K21.00 Gastro-esophageal reflux disease with esophagitis, without bleeding; R29.6 Repeated falls; G47.33 Obstructive sleep apnea (adult) (pediatric); R10.13 Epigastric pain; Z86.010 Personal history of colon polyps; Z20.822 Contact with and (suspected) exposure to COVID-19
CPT/HCPCS: 45378; 43239; 87811; 88305; 88313; C9803; J7120; J2405

== ENCOUNTER → 2021-12-25 | Outpatient (CLI) | payer MEDICARE, OTHER, SELFPAY ==
[2021-12-25 14:17] LABS: Absolute Lymphocyte Count 2.63 X10^3/uL (0.83-4.51); Absolute Neutrophil Count 2.5 X10^3/uL (2.0-7.7); Basophil# 0.04 X10^3/uL; Basophil% 0.7 % (0-1); Eosinophil# 0.14 X10^3/uL; Eosinophils% 2.5 % (0-5); Lymphocyte # 2.63 X10^3/ul (0.83-4.51); Lymphocyte % 46.5 % (19-41); Mean Corp Hgb Conc 32.5 g/dL (32-36); Mean Corpuscular Hgb 29.4 pg (27.0-32.0); Mean Corpuscular Volume 90.5 fL (81-99); Mean Platelet Vol. 9.8 fl (6.2-12.0); Monocyte# 0.33 X10^3/uL; Monocyte% 5.8 % (0-10); NRBC Flagged by Analyzer 0 % (0-5); Neutrophil % 44.3 % (47-70); Platelet Count 374 K/mm3 (150-450); RBC Distribution Width CV 14.1 % (11.6-14.6); RBC Distribution Width SD 46.4 fl (35.1-43.9); Red Blood Count 4.42 M/mm3 (4.2-5.4); White Blood Count 5.7 K/mm3 (4.4-11.0)
[2021-12-25 14:36] LABS: Vitamin D,25 Hydroxy 95.3 ng/mL
[2021-12-25 14:39] LABS: Hemoglobin A1c 6.1 % (3.8-5.6)
[2021-12-25 14:42] LABS: AST(SGOT) 21 U/L (15-37); Alanine Aminotransfer ALT/SGPT 29 U/L (13-56); Alkaline Phosphatase 134 U/L (45-117); Anion Gap 9 (5-15); BUN 19 mg/dL (7-18); BUN/Creat Ratio 17.9 RATIO (10-20); Calcium,Total 9.2 mg/dL (8.5-10.1); Chloride 106 mmol/L (98-107); Creatinine, Serum 1.06 mg/dL (0.55-1.02); EST Glomerular Filtration Rate 55 mL/min (>60); Est Glom Filt Rate - Afr Amer 66 mL/min (>60); Free T3 3.2 pg/mL (2.18-3.98); Globulin 3.9 g/dL (2.2-4.2); Glucose 116 mg/dL (74-106); Potassium 3.2 mmol/L (3.5-5.1); Protein, Total 7.9 g/dL (6.4-8.2); Sodium Level 141 mmol/L (136-145); T4 Free Direct 1.05 ng/dL (0.76-1.46); Thyroid Stim Hormone (TSH) 1.62 uIU/mL (0.358-3.74)
== END | disposition home or self-care (01) ==
LOC: LAB 13:18
PROVIDERS: PCP Internal Medicine; Referring Provider Internal Medicine Endocrinology, Diabetes & Metabolism; Visit Provider Internal Medicine Endocrinology, Diabetes & Metabolism
DX: M06.4 Inflammatory polyarthropathy (principal); E66.01 Morbid (severe) obesity due to excess calories; E27.9 Disorder of adrenal gland, unspecified; M79.7 Fibromyalgia; M17.0 Bilateral primary osteoarthritis of knee; M16.0 Bilateral primary osteoarthritis of hip; D47.2 Monoclonal gammopathy; M21.40 Flat foot [pes planus] (acquired), unspecified foot; E03.9 Hypothyroidism, unspecified; G47.419 Narcolepsy without cataplexy; H81.03 Meniere's disease, bilateral; M51.37 Other intervertebral disc degeneration, lumbosacral region; M47.897 Other spondylosis, lumbosacral region; R73.03 Prediabetes; E55.9 Vitamin D deficiency, unspecified; Z79.899 Other long term (current) drug therapy
CPT/HCPCS: 80053; 82043; 82306; 83036; 84439; 84443; 84481; 85025

== ENCOUNTER → 2021-12-28 | Outpatient (CLI) | payer MEDICARE, OTHER, SELFPAY ==
[2021-12-28 10:23] LABS: Microalbumin,Random Urine 6.2 mg/L (NO RANGE EST.)
== END | disposition home or self-care (01) ==
LOC: LABSPEC 08:33
PROVIDERS: PCP Internal Medicine; Referring Provider Internal Medicine Endocrinology, Diabetes & Metabolism; Visit Provider Internal Medicine Endocrinology, Diabetes & Metabolism
DX: E03.9 Hypothyroidism, unspecified (principal); M06.9 Rheumatoid arthritis, unspecified; E66.01 Morbid (severe) obesity due to excess calories; R73.03 Prediabetes; E55.9 Vitamin D deficiency, unspecified
CPT/HCPCS: 82043

== ENCOUNTER → 2022-01-30 | Outpatient (CLI) | payer MEDICARE, OTHER, SELFPAY ==
[2022-01-30 16:56] LABS: Absolute Lymphocyte Count 2.12 X10^3/uL (0.83-4.51); Absolute Neutrophil Count 7.6 X10^3/uL (2.0-7.7); Basophil# 0.01 X10^3/uL; Basophil% 0.1 % (0-1); Eosinophil# 0.03 X10^3/uL; Eosinophils% 0.3 % (0-5); Hematocrit 37.2 % (37-47); Hemoglobin 12.2 g/dL (12.0-15.0); Lymphocyte # 2.12 X10^3/ul (0.83-4.51); Lymphocyte % 20.8 % (19-41); Mean Corp Hgb Conc 32.8 g/dL (32-36); Mean Corpuscular Hgb 29.5 pg (27.0-32.0); Mean Corpuscular Volume 89.9 fL (81-99); Mean Platelet Vol. 9.9 fl (6.2-12.0); Monocyte# 0.45 X10^3/uL; Monocyte% 4.4 % (0-10); NRBC Flagged by Analyzer 0 % (0-5); Neutrophil # 7.55 X10^3/uL (2.7-7.7); Neutrophil % 73.9 % (47-70); Platelet Count 399 K/mm3 (150-450); RBC Distribution Width SD 45.2 fl (35.1-43.9); Red Blood Count 4.14 M/mm3 (4.2-5.4); White Blood Count 10.2 K/mm3 (4.4-11.0)
[2022-01-30 17:03] LABS: ALB/GLOB Ratio 1.1 RATIO (0.9-2.4); AST(SGOT) 21 U/L (15-37); Alanine Aminotransfer ALT/SGPT 27 U/L (13-56); Alkaline Phosphatase 120 U/L (45-117); Anion Gap 10 (5-15); BUN 25 mg/dL (7-18); Calcium,Total 9.4 mg/dL (8.5-10.1); Chloride 103 mmol/L (98-107); Creatinine, Serum 1.39 mg/dL (0.55-1.02); EST Glomerular Filtration Rate 40 mL/min (>60); Est Glom Filt Rate - Afr Amer 48 mL/min (>60); Globulin 3.8 g/dL (2.2-4.2); Glucose 164 mg/dL (74-106); Potassium 2.9 mmol/L (3.5-5.1); Protein, Total 7.8 g/dL (6.4-8.2); Sodium Level 138 mmol/L (136-145)
== END | disposition home or self-care (01) ==
LOC: LAB 16:23
PROVIDERS: PCP Internal Medicine; Visit Provider Internal Medicine Rheumatology
DX: M06.4 Inflammatory polyarthropathy (principal); E27.9 Disorder of adrenal gland, unspecified; M79.7 Fibromyalgia; M17.0 Bilateral primary osteoarthritis of knee; M16.0 Bilateral primary osteoarthritis of hip; D47.2 Monoclonal gammopathy; M21.40 Flat foot [pes planus] (acquired), unspecified foot; E03.9 Hypothyroidism, unspecified; G47.419 Narcolepsy without cataplexy; H81.03 Meniere's disease, bilateral; M51.37 Other intervertebral disc degeneration, lumbosacral region; M47.897 Other spondylosis, lumbosacral region; Z79.899 Other long term (current) drug therapy
CPT/HCPCS: 36415; 80053; 85025

== ENCOUNTER 2022-02-01 15:21 | Emergency (ER) | payer MEDICARE, OTHER, SELFPAY ==
[2022-02-01 15:22] VITALS: BP 153/83; PULSE 101; RESP 16; TEMP 36.4; O2SAT 94; BMI 37.8
[2022-02-01] MEDS: 0.9% Normal Saline 1,000 ML 1000 ML IV ×2 (15:45→17:30)
--- NOTE | 2022-02-01 16:07 | EX.ED.DYSGE1 ---
HPI History of Present Illness Chief Complaint: Dizziness Narrative Narrative: Patient presents with dry mouth and lightheadedness for a few days. She has been working quite a bit in her garden. She was diagnosed with Sjogren's recently, she also has a history of adrenal insufficiency. No fever or chills. She has no vertigo or disequilibrium. She is denying any chest pain shortness of breath or pleuritic component. No back pain or tearing sensation. [facility] Medical History Abnormal bowel movement Abnormal laboratory test Acute bronchitis Adenomatous polyps Adrenal insufficiency Adrenal insufficiency Airway polyps Anxiety and depression Arthritis Asthma Asthma Back pain Back pain Roman esophagus Basal cell carcinoma Bilateral lower extremity edema Blood disorder BMI greater than 40 BMI greater than 40 Borderline type 2 diabetes mellitus Bronchitis Cancer Cardiology follow-up encounter Cellulitis of right lower leg Chronic neck and back pain Chronic pain Constipation COVID-19 virus detected (05/09/20) CPAP (continuous positive airway pressure) dependence CSA (central sleep apnea) Depression Difficulty balancing Difficulty balancing when standing Difficulty swallowing Dyspnea Essential (primary) hypertension Fatigue Fatty liver Fatty liver disease, nonalcoholic FH: colon cancer in first degree relative <60 years old Gastric reflux GERD (gastroesophageal reflux disease) Hay fever History of colon polyps History of echocardiogram History of edema History of stress test Hypersomnia Hypertension Hypokalemia Hypopituitarism Hypothyroidism Incontinence Injury of head and neck Limb weakness Low magnesium level Lung disease Macromastia Meniere disease MGUS (monoclonal gammopathy of unknown significance) Migraines Non-smoker Obesity Obesity Osteoarthritis Osteopenia Otitis media Pneumonia Radiculopathy Restless legs Rheumatoid arthritis Rheumatoid arthritis Screening for diabetes mellitus Seizures Shoulder pain Sinusitis SOB (shortness of breath) Thyroid disease Type 1 diabetes mellitus Unsteady gait URI, acute Vitamin D deficiency Wears glasses Home Medications folic acid 0.8 mg capsule 0.8 mg PO BID supplement 07/14/18 [History Last Taken 01/12/20] hydroxychloroquine 200 mg tablet (Plaquenil) 200 mg PO BID ra 09/01/18 [History Last Taken 10/24/21 09:00] cyclobenzaprine 10 mg tablet 10 mg PO QHS 12/22/19 [History Last Taken 01/12/20] ascorbate calcium (vitamin C) 500 mg tablet 500 mg PO DAILY 04/08/20 [History Last Taken Unknown] zinc 50 mg tablet 50 mg PO DAILY 04/08/20 [History Last Taken Unknown] fexofenadine 30 mg/5 mL oral suspension (Children's Zainab Allergy) 60 mg PO DAILY 06/21/20 [History Last Taken Unknown] ipratropium bromide 21 mcg (0.03 %) nasal spray 2 spray intranasal BID 06/21/20 [History Last Taken Unknown] Handicap Placard #1 ea 09/11/20 [Rx Last Taken Unknown] thyroid (pork) 15 mg tablet (Stirum Thyroid) 15 mg PO DAILY 09/11/20 [History Last Taken 10/24/21 09:00] methotrexate sodium 25 mg/mL injection solution 25 mg subcut QWEEK 09/25/20 [History Last Taken Unknown] cholecalciferol (vitamin D3) 1,250 mcg (50,000 unit) capsule 1,250 mcg PO QWEEK #1 cap 12/19/20 [Rx Last Taken Unknown] pantoprazole 40 mg tablet,delayed release 40 mg PO BID 03/13/21 [History Last Taken 10/24/21 09:00] potassium chloride 20 mEq tablet,extended release(part/cryst) 20 meq PO BID 03/13/21 [History Last Taken Unknown] amiloride 5 mg-hydrochlorothiazide 50 mg tablet 0.5 tab PO DAILY #60 tabs 04/25/21 [Rx Last Taken 10/24/21 09:00] triamcinolone acetonide 0.025 % topical ointment 1 applic topical DAILY PRN rash #454 grams 05/07/21 [Rx Last Taken Unknown] buprenorphine 5 mcg/hour weekly transdermal patch 2 patch transdermal QWEEK 06/12/21 [History Last Taken Unknown] bupropion HCl 150 mg tablet,12 hr sustained-release 150 mg PO BID #180 ea 06/12/21 [Rx Last Taken Unknown] fluticasone propionate 110 mcg/actuation HFA aerosol inhaler (Flovent HFA) 1 puff inhalation BID 06/12/21 [History Last Taken 10/24/21 09:00] magnesium oxide 500 mg capsule 500 mg PO DAILY 09/11/21 [History Last Taken Unknown] phentermine 37.5 mg capsule 37.5 mg PO DAILY #30 caps 11/23/21 [Rx Last Taken Unknown] topiramate 50 mg tablet 50 mg PO BID #60 tabs 11/23/21 [Rx Last Taken Unknown] lidocaine HCl 2 % mucosal solution (Lidocaine Viscous) 1 applic mucous membrane BID #100 mL 01/02/22 [Rx Last Taken Unknown] nystatin 100,000 unit/mL oral suspension 10 ml PO DAILY #60 mL 01/02/22 [Rx Last Taken Unknown] sucralfate 100 mg/mL oral suspension (Carafate) See Rx Instructions PO BID #200 mL 01/02/22 [Rx Last Taken Unknown] prednisone 20 mg tablet 60 mg PO DAILY #15 tabs 02/01/22 [Rx Last Taken Unknown] prednisone 5 mg tablet 5 mg PO DAILY #14 tabs 02/01/22 [Rx Last Taken Unknown] Allergy/AdvReac Type Severity Reaction Status Date / Time phenytoin sodium Allergy Mild Rash Verified 02/01/22 15:22 [From Dilantin] phenytoin sodium extended Allergy Mild Rash Verified 02/01/22 15:22 [From Dilantin] ketorolac tromethamine Allergy Anaphylaxis Verified 02/01/22 15:22 [From Toradol] morphine AdvReac Severe Other Verified 02/01/22 15:22 Honey Dew Melon AdvReac Food Uncoded 02/01/22 15:22 Allergy Family History Father Cancer father passed of lung CA at 55 Mother Dementia Osteoarthritis COPD (chronic obstructive pulmonary disease) Brother Myocardial infarction, Onset Age: 49 Aunt Multiple sclerosis Sister Colon cancer Breast cancer Aunt Celiac disease Surgical History H/O dilation and curettage History of 2 sections History of carpal tunnel release History of carpal tunnel surgery History of cataract surgery History of cholecystectomy History of hysterectomy History of left heart catheterization (01/14/20) History of orthopedic surgery History of tonsillectomy and adenoidectomy Hx of colonoscopy Hx of oral surgery S/P bunionectomy S/P excision of Molina's neuroma S/P knee surgery Status post total right knee replacement Social History Smoking Status: Never smoker alcohol intake: current alcohol intake frequency: a few times a month Alcohol type: wine substance use type: does not use what type of physical activity do you participate in: walking, bicycling and swimming frequency: 3-4 times per week 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 Medications: Reviewed in [facility] Social history: Noncontributory Review of systems: All systems negative except as indicated General: No fever. No chills. Lightheaded as in HPI Eyes: No visual changes ENT: No upper airway congestion, normal voice. Dry mouth Neck: No neck pain Cardiovascular: No chest pain Respiratory: No shortness of breath or cough Gastrointestinal: No abdominal pain, nausea vomiting or diarrhea Genitourinary: No dysuria Musculoskeletal: Denies myalgias no difficulty with ambulation Skin: No rash Neurological: No memory loss, confusion or any focal weakness. No vertigo or disequilibrium Psych: No recent behavioral changes Hematologic: No easy bleeding or easy bruising EXAM Physical Exam Narrative Exam Narrative: Physical exam General: Well nourished, Well developed, No Acute Distress. She is comfortable in bed. Head: Normocephalic, Atraumatic Eyes: Conjunctiva not pale ENT: Dry mucous membranes. There is upper airway congestion and rhinorrhea, there is some postnasal drip but otherwise normal posterior oropharynx. Neck: Supple, Nontender, No lymphadenopathy Cardiovascular: Regular rate, Regular rhythm Respiratory: No distress, CTA bilaterally Abdomen: Soft, Nontender, Nondistended Back: Nontender, Normal Inspection. Negative for: CVA tenderness Extremities: Nontender, No edema Skin: Normal color, No rash Neurological: Alert, Normal Strength, Normal Sensation. Normal cerebellar Psychological: Normal affect Const Vital Signs: 02/01/22 15:22 02/01/22 16:03 Temperature 97.6 F L Temperature Source Temporal Pulse Rate 101 H Respiratory Rate 16 Respiratory Pattern Normal Blood Pressure 153/83 H Blood Pressure Mean 106 Pulse Ox 94 Oxygen Delivery Method Room Air MDM MDM MDM Narrative Medical decision making narrative: Patient is found to be hypokalemic and there is adrenal insufficiency at this time. Patient's blood pressure improved with hydrocortisone IV she significantly improved with IV fluids also, she does have some upper airway congestion, the adrenal insufficiency is chronic but may be worsened by the viral upper respiratory infection. Regardless because she improved I will put her on prednisone for home, she is not currently on any steroids. I will also tell her to double up on her oral potassium for the next 3 to 4 days. I I replenished her potassium via IV in our ED. She wishes to be discharged I think this is reasonable she can follow-up her endocrinology doctor at [place] in the next week. Lab Data Labs: Laboratory Results - last 24 hr 02/01/22 02/01/22 02/01/22 15:45 15:45 15:45 WBC 9.8 RBC 3.88 L Hgb 11.5 L Hct 34.7 L MCV 89.4 MCH 29.6 MCHC 33.1 RDW Std Deviation 47.8 H RDW Coeff of Rosamaria 14.6 Plt Count 366 MPV 9.8 Immature Gran % (Auto) 0.100 Neut % (Auto) 49.3 Lymph % (Auto) 44.4 H [place] % (Auto) 5.0 Eos % (Auto) 0.8 Baso % (Auto) 0.4 Absolute Neuts (auto) 4.8 Absolute Lymphs (auto) 4.33 Nucleated RBC % 0 Sodium 140 Potassium 2.7 L* Chloride 107 Carbon Dioxide 25.0 Anion Gap 8 BUN 30 H Creatinine 0.99 Estim Creat Clear Calc 48.26 Est GFR (MDRD) Af Amer 72 Est GFR (MDRD) Non-Af 59 L BUN/Creatinine Ratio 30.3 H Glucose 106 Calcium 9.3 Total Bilirubin 0.40 AST 22 ALT 27 Alkaline Phosphatase 110 Total Protein 7.6 Albumin 4.1 Globulin 3.5 Albumin/Globulin Ratio 1.2 Cortisol 0.70 L Discharge Plan Triage Chief Complaint: Dizziness ED Provider: Gamaliel Patel Dx/Rx/DC Orders Clinical Impression: Adrenal insufficiency, Acute hypokalemia, Acute upper respiratory infection, Dehydration Instructions: Secondary Adrenal Insufficiency, Dehydration, ED Dehydration (Adult) Prescriptions: New prednisone 5 mg tablet 5 mg PO DAILY Qty: 14 0RF Rx Instructions: start after finishing the 20 mg tabs (three per day) prednisone 20 mg tablet 60 mg PO DAILY Qty: 15 0RF No Action folic acid 0.8 mg capsule 0.8 mg PO BID hydroxychloroquine [Plaquenil] 200 mg tablet 200 mg PO BID cyclobenzaprine 10 mg tablet 10 mg PO QHS fexofenadine [Children's Zainab Allergy] 30 mg/5 mL suspension 60 mg PO DAILY ipratropium bromide 0.03 % spray,non-aerosol 2 spray INTRANASAL BID Rx Instructions: administer into each nostril zinc 50 mg tablet 50 mg PO DAILY ascorbate calcium (vitamin C) 500 mg tablet 500 mg PO DAILY thyroid (pork) [Stirum Thyroid] 15 mg tablet 15 mg PO DAILY (DME) Handicap Placard See Rx Instructions .Route .MEDSUPPLY Qty: 1 0RF Rx Instructions: As directed, length of time 3 years pantoprazole 40 mg tablet,delayed release (DR/EC) 40 mg PO BID potassium chloride 20 mEq tablet,ER particles/crystals 20 meq PO BID buprenorphine 5 mcg/hour patch weekly 2 patch transdermal QWEEK Flovent HFA 110 mcg/actuation HFA aerosol inhaler 1 puff inhalation BID bupropion HCl 150 mg tablet sustained-release 12 hr 150 mg PO BID Qty: 180 1RF Rx Instructions: Take 150 mg daily x 1 week then increase to BID magnesium oxide 500 mg capsule 500 mg PO DAILY phentermine 37.5 mg capsule 37.5 mg PO DAILY Qty: 30 2RF Rx Instructions: must administer 30 minutes before or 1-2 hours after breakfast topiramate 50 mg tablet 50 mg PO BID Qty: 60 2RF methotrexate sodium 25 MG/ML solution 25 mg subcut QWEEK cholecalciferol (vitamin D3) 1,250 mcg (50,000 unit) capsule 1,250 mcg PO QWEEK Qty: 1 0RF Rx Instructions: This is prescribed by Dr. Kaba amiloride-hydrochlorothiazide 5-50 mg tablet 0.5 tab PO DAILY Qty: 60 1RF triamcinolone acetonide 0.025 % ointment 1 applic topical DAILY PRN (Reason: rash) Qty: 454 1RF nystatin 100,000 unit/mL suspension 10 ml PO DAILY Qty: 60 1RF Rx Instructions: swish and swallow 10 mL once a day sucralfate [Carafate] 100 mg/mL suspension See Rx Instructions PO BID Qty: 200 0RF Rx Instructions: PO twice a day; combine 5mL with 5Ml lidocaine and swish/swallow two times a day. lidocaine HCl [Lidocaine Viscous] 2 % solution 1 applic mucous membrane BID Qty: 100 0RF Rx Instructions: 5mL combined with 5mL carafate two tmes a day Primary Care Provider: Yoanna Hull Referrals: Yoanna Hull MD [Primary Care Provider] - Activity Restrictions/Additional Instructions: Follow-up with your political anthropologist next week Disposition Disposition: Home, Self Care
[2022-02-01 16:09] LABS: Absolute Lymphocyte Count 4.33 X10^3/uL (0.83-4.51); Absolute Neutrophil Count 4.8 X10^3/uL (2.0-7.7); Basophil# 0.04 X10^3/uL; Basophil% 0.4 % (0-1); Eosinophil# 0.08 X10^3/uL; Eosinophils% 0.8 % (0-5); Hematocrit 34.7 % (37-47); Hemoglobin 11.5 g/dL (12.0-15.0); Lymphocyte # 4.33 X10^3/ul (0.83-4.51); Lymphocyte % 44.4 % (19-41); Mean Corp Hgb Conc 33.1 g/dL (32-36); Mean Corpuscular Hgb 29.6 pg (27.0-32.0); Mean Corpuscular Volume 89.4 fL (81-99); Mean Platelet Vol. 9.8 fl (6.2-12.0); Monocyte# 0.49 X10^3/uL; NRBC Flagged by Analyzer 0 % (0-5); Neutrophil % 49.3 % (47-70); Platelet Count 366 K/mm3 (150-450); RBC Distribution Width CV 14.6 % (11.6-14.6); RBC Distribution Width SD 47.8 fl (35.1-43.9); Red Blood Count 3.88 M/mm3 (4.2-5.4); White Blood Count 9.8 K/mm3 (4.4-11.0)
[2022-02-01 16:34] LABS: ALB/GLOB Ratio 1.2 RATIO (0.9-2.4); AST(SGOT) 22 U/L (15-37); Alanine Aminotransfer ALT/SGPT 27 U/L (13-56); Albumin, Serum 4.1 g/dL (3.2-5.0); Alkaline Phosphatase 110 U/L (45-117); Anion Gap 8 (5-15); BUN 30 mg/dL (7-18); BUN/Creat Ratio 30.3 RATIO (10-20); Calcium,Total 9.3 mg/dL (8.5-10.1); Chloride 107 mmol/L (98-107); Creatinine, Serum 0.99 mg/dL (0.55-1.02); EST Glomerular Filtration Rate 59 mL/min (>60); Est Glom Filt Rate - Afr Amer 72 mL/min (>60); Estimated Creatinine Clearance 48.26 ml/min; Globulin 3.5 g/dL (2.2-4.2); Glucose 106 mg/dL (74-106); Potassium 2.7 mmol/L (3.5-5.1); Protein, Total 7.6 g/dL (6.4-8.2); Sodium Level 140 mmol/L (136-145)
[2022-02-01] MEDS: Hydrocortisone Sod Succinate 100 MG/2 ML Vial IV (17:49)
[2022-02-01] MEDS: Potassium Chloride 10mEq/100mL 10 MEQ/100 ML IV.SOLN. 100 MEQ IV BOLUS ×4 (17:49→21:30)
[2022-02-01 18:00] VITALS: BP 127/68; PULSE 76; RESP 18; O2SAT 98
[2022-02-01 20:00] VITALS: BP 117/66; PULSE 79; RESP 16; O2SAT 99
[2022-02-01 22:00] VITALS: BP 111/65; PULSE 82; RESP 18; O2SAT 97
== END 2022-02-01 22:43 | disposition home or self-care (01) ==
PROVIDERS: Emergency Provider Emergency Medicine; PCP Internal Medicine; Visit Provider Emergency Medicine
DX: E27.40 Unspecified adrenocortical insufficiency (principal); E87.6 Hypokalemia; J06.9 Acute upper respiratory infection, unspecified; E86.0 Dehydration; M35.00 Sjogren syndrome, unspecified; M06.9 Rheumatoid arthritis, unspecified; I10 Essential (primary) hypertension; J45.909 Unspecified asthma, uncomplicated; R73.03 Prediabetes; E03.9 Hypothyroidism, unspecified; Z79.899 Other long term (current) drug therapy
CPT/HCPCS: 80053; 82533; 85025; 96361; 96365; 96366; 96375; 99283; J7030; A4216

== ENCOUNTER → 2022-02-06 | Outpatient (CLI) | payer MEDICARE, OTHER, SELFPAY ==
[2022-02-06 08:18] LABS: Anion Gap 4 (5-15); BUN 20 mg/dL (7-18); BUN/Creat Ratio 20.7 RATIO (10-20); Calcium,Total 8.6 mg/dL (8.5-10.1); Chloride 111 mmol/L (98-107); Creatinine, Serum 0.96 mg/dL (0.55-1.02); EST Glomerular Filtration Rate 61 mL/min (>60); Est Glom Filt Rate - Afr Amer 74 mL/min (>60); Glucose 85 mg/dL (74-106); Potassium 3.8 mmol/L (3.5-5.1); Sodium Level 145 mmol/L (136-145)
[2022-02-07 16:33] LABS: Adrenocorticotropic Hormone 12.9 pg/mL (7.2-63.3)
== END | disposition home or self-care (01) ==
PROVIDERS: Nurse Practitioner Family; PCP Internal Medicine; Referring Provider Internal Medicine Endocrinology, Diabetes & Metabolism; Visit Provider Internal Medicine Endocrinology, Diabetes & Metabolism
DX: E27.40 Unspecified adrenocortical insufficiency (principal)
CPT/HCPCS: 36415; 80048; 82024; 82533

== ENCOUNTER → 2022-02-14 | Outpatient (CLI) | payer MEDICARE, OTHER, SELFPAY ==
[2022-02-14 16:02] LABS: Hematocrit 34.5 % (37-47); Hemoglobin 10.8 g/dL (12.0-15.0); Mean Corp Hgb Conc 31.3 g/dL (32-36); Mean Corpuscular Hgb 29.6 pg (27.0-32.0); Mean Corpuscular Volume 94.5 fL (81-99); Mean Platelet Vol. 9.3 fl (6.2-12.0); Platelet Count 409 K/mm3 (150-450); RBC Distribution Width CV 15.2 % (11.6-14.6); RBC Distribution Width SD 52.8 fl (35.1-43.9); Red Blood Count 3.65 M/mm3 (4.2-5.4); White Blood Count 9.3 K/mm3 (4.4-11.0)
[2022-02-14 16:30] LABS: AST(SGOT) 14 U/L (15-37); Alanine Aminotransfer ALT/SGPT 22 U/L (13-56); Albumin, Serum 3.4 g/dL (3.2-5.0); Alkaline Phosphatase 104 U/L (45-117); Anion Gap 7 (5-15); BUN 28 mg/dL (7-18); BUN/Creat Ratio 30.9 RATIO (10-20); Calcium,Total 8.6 mg/dL (8.5-10.1); Chloride 108 mmol/L (98-107); Creatinine, Serum 0.91 mg/dL (0.55-1.02); EST Glomerular Filtration Rate 65 mL/min (>60); Est Glom Filt Rate - Afr Amer 79 mL/min (>60); Free T3 2.1 pg/mL (2.18-3.98); Globulin 3.4 g/dL (2.2-4.2); Glucose 109 mg/dL (74-106); Potassium 3.4 mmol/L (3.5-5.1); Protein, Total 6.8 g/dL (6.4-8.2); Sodium Level 140 mmol/L (136-145)
== END | disposition home or self-care (01) ==
LOC: LAB 15:05
PROVIDERS: PCP Internal Medicine; Visit Provider Internal Medicine Endocrinology, Diabetes & Metabolism
DX: E27.40 Unspecified adrenocortical insufficiency (principal); E66.01 Morbid (severe) obesity due to excess calories; E03.9 Hypothyroidism, unspecified; R73.03 Prediabetes; E55.9 Vitamin D deficiency, unspecified
CPT/HCPCS: 36415; 80053; 84439; 84443; 84481; 85027

== ENCOUNTER → 2022-02-19 | Outpatient (CLI) | payer MEDICARE, OTHER, SELFPAY ==
[2022-02-19 14:51] LABS: Mucous, Urine 0 SEEN /hpf (<or=2+); Red Blood Cells-Urine 0 SEEN /hpf (0-5)
[2022-02-19 16:48] LABS: Color, Urine Yellow (Yellow); Glucose, Dipstick Normal (Normal); Ketone-Dipstick Negative (Negative); Leukocyte Esterase-Dipstick 25 /ul (Negative); Nitrite-Dipstick Positive (Negative); Occult Blood-Urine Negative /ul (Negative); Protein-Dipstick Negative (Negative); Urine Bilirubin Dipstick Negative (Negative); Urine Clarity Clear (Clear); Urine Urobilinogen Normal (Normal)
[2022-02-19 16:58] LABS: Anion Gap 4 (5-15); BUN 21 mg/dL (7-18); BUN/Creat Ratio 25.1 RATIO (10-20); Calcium,Total 8.9 mg/dL (8.5-10.1); Chloride 108 mmol/L (98-107); Creatinine, Serum 0.84 mg/dL (0.55-1.02); EST Glomerular Filtration Rate 72 mL/min (>60); Est Glom Filt Rate - Afr Amer 87 mL/min (>60); Glucose 108 mg/dL (74-106); Potassium 3.8 mmol/L (3.5-5.1); Sodium Level 140 mmol/L (136-145)
[2022-02-19 17:00] LABS: Bacteria 4+ /hpf (None Seen); Squamous Epithelial Cells - UA 0-5 SEEN /hpf (5-10); White Blood Cells 0-5 SEEN /hpf (0-5)
[2022-02-19 17:02] LABS: Ferritin 8 ng/mL (8-252); Iron 25 ug/dL (50-170); Iron Binding Capacity,Total 410 ug/dL (250-450)
== END | disposition home or self-care (01) ==
LOC: BIMLAB 14:50
PROVIDERS: Nurse Practitioner Family; PCP Internal Medicine; Referring Provider Internal Medicine; Visit Provider Internal Medicine
DX: R30.0 Dysuria (principal); E87.6 Hypokalemia; D64.9 Anemia, unspecified; R53.81 Other malaise; R53.83 Other fatigue
CPT/HCPCS: 36415; 80048; 81001; 82728; 83540; 83550; 87077; 87086; 87088; 87186

== ENCOUNTER → 2022-02-23 | Outpatient (CLI) | payer MEDICARE, OTHER, SELFPAY ==
[2022-02-23 11:43] LABS: Absolute Lymphocyte Count 2.92 X10^3/uL (0.83-4.51); Absolute Neutrophil Count 3.7 X10^3/uL (2.0-7.7); Basophil# 0.04 X10^3/uL; Basophil% 0.6 % (0-1); Eosinophil# 0.21 X10^3/uL; Eosinophils% 2.9 % (0-5); Hematocrit 35.3 % (37-47); Hemoglobin 11.1 g/dL (12.0-15.0); Lymphocyte # 2.92 X10^3/ul (0.83-4.51); Lymphocyte % 40.5 % (19-41); Mean Corp Hgb Conc 31.4 g/dL (32-36); Mean Corpuscular Hgb 29.9 pg (27.0-32.0); Mean Corpuscular Volume 95.1 fL (81-99); Monocyte# 0.36 X10^3/uL; NRBC Flagged by Analyzer 0 % (0-5); Neutrophil # 3.66 X10^3/uL (2.7-7.7); Neutrophil % 50.7 % (47-70); Platelet Count 337 K/mm3 (150-450); RBC Distribution Width CV 14.8 % (11.6-14.6); RBC Distribution Width SD 51.8 fl (35.1-43.9); Red Blood Count 3.71 M/mm3 (4.2-5.4); White Blood Count 7.2 K/mm3 (4.4-11.0)
[2022-02-23 12:00] LABS: AST(SGOT) 15 U/L (15-37); Alanine Aminotransfer ALT/SGPT 21 U/L (13-56); Albumin, Serum 3.4 g/dL (3.2-5.0); Alkaline Phosphatase 109 U/L (45-117); Anion Gap 4 (5-15); BUN 20 mg/dL (7-18); BUN/Creat Ratio 22.7 RATIO (10-20); Calcium,Total 8.8 mg/dL (8.5-10.1); Chloride 111 mmol/L (98-107); Creatinine, Serum 0.88 mg/dL (0.55-1.02); EST Glomerular Filtration Rate 68 mL/min (>60); Est Glom Filt Rate - Afr Amer 82 mL/min (>60); Globulin 3.3 g/dL (2.2-4.2); Glucose 146 mg/dL (74-106); Potassium 3.9 mmol/L (3.5-5.1); Protein, Total 6.7 g/dL (6.4-8.2); Sodium Level 142 mmol/L (136-145)
== END | disposition home or self-care (01) ==
LOC: LAB 11:30
PROVIDERS: PCP Internal Medicine; Referring Provider Internal Medicine Rheumatology; Visit Provider Internal Medicine Rheumatology
DX: M06.4 Inflammatory polyarthropathy (principal)
CPT/HCPCS: 36415; 80053; 85025

== ENCOUNTER → 2022-03-08 | Outpatient (CLI) | payer MEDICARE, OTHER, SELFPAY ==
[2022-03-08 15:15] LABS: BUN 21 mg/dL (7-18); Creatinine, Serum 0.92 mg/dL (0.55-1.02); Glucose 103 mg/dL (74-106)
[2022-03-08 15:16] LABS: ALB/GLOB Ratio 1.1 RATIO (0.9-2.4); AST(SGOT) 16 U/L (15-37); Alanine Aminotransfer ALT/SGPT 21 U/L (13-56); Albumin, Serum 3.8 g/dL (3.2-5.0); Alkaline Phosphatase 119 U/L (45-117); Anion Gap 6 (5-15); BUN/Creat Ratio 22.8 RATIO (10-20); Calcium,Total 9.2 mg/dL (8.5-10.1); Chloride 108 mmol/L (98-107); EST Glomerular Filtration Rate 64 mL/min (>60); Est Glom Filt Rate - Afr Amer 78 mL/min (>60); Globulin 3.4 g/dL (2.2-4.2); Potassium 3.9 mmol/L (3.5-5.1); Protein, Total 7.2 g/dL (6.4-8.2); Sodium Level 142 mmol/L (136-145)
[2022-03-08 15:24] LABS: Mucous, Urine 0 SEEN /hpf (<or=2+); Red Blood Cells-Urine 0 SEEN /hpf (0-5)
[2022-03-08 16:11] LABS: Color, Urine Yellow (Yellow); Glucose, Dipstick Normal (Normal); Ketone-Dipstick Negative (Negative); Leukocyte Esterase-Dipstick Negative /ul (Negative); Nitrite-Dipstick Positive (Negative); Occult Blood-Urine Negative /ul (Negative); Protein-Dipstick Negative (Negative); Urine Bilirubin Dipstick Negative (Negative); Urine Clarity Sl. Cloudy (Clear); Urine Urobilinogen Normal (Normal)
[2022-03-08 16:19] LABS: Bacteria 4+ /hpf (None Seen); Squamous Epithelial Cells - UA 0-5 SEEN /hpf (5-10); White Blood Cells 0-5 SEEN /hpf (0-5)
== END | disposition home or self-care (01) ==
LOC: LAB 13:51
PROVIDERS: Physician Assistant; PCP Internal Medicine; Referring Provider Internal Medicine Endocrinology, Diabetes & Metabolism; Visit Provider Internal Medicine Endocrinology, Diabetes & Metabolism
DX: E27.40 Unspecified adrenocortical insufficiency (principal); E66.01 Morbid (severe) obesity due to excess calories; E03.9 Hypothyroidism, unspecified; R73.03 Prediabetes; E55.9 Vitamin D deficiency, unspecified
CPT/HCPCS: 36415; 80053; 81001

== ENCOUNTER → 2022-03-11 | Outpatient (CLI) | payer MEDICARE, OTHER, SELFPAY ==
--- NOTE | 2022-03-11 14:08 | PFTCOMP_ITS ---
COMPLETE PULMONARY FUNCTION TEST INTERPRETATION Brief HPI: Patient is a 71-year-old female, currently under the care of Rekha Dorman, who presents to [facility] for complete pulmonary function tests secondary to diagnosis of asthma. Respiratory therapist reports good effort and reproducible results. Interpretation: Forced expiration spirometry shows no large airways obstructive ventilatory defect with an FEV1 of 91% predicted. There is no significant bronchodilator response by strict ATS criteria. Spirograms are of good quality and plateau normally. The respiratory flow volume loop shows a normal pattern. Lung volumes by body plethysmography show a normal total lung capacity at 5.49 L, 109% predicted. All other lung volumes are within normal limits. Diffusion capacity by carbon monoxide is decreased at 60% predicted. The airway resistance is normal. Compared to previous pulmonary function tests from 07/11/2020, there is been a significant reduction diffusion capacity by 29%. Impression: Isolated reduction in diffusion capacity in a pattern consistent with a pulmonary vascular disorder. There has been significant worsening compared to 2019
== END | disposition home or self-care (01) ==
LOC: PSN 09:39
PROVIDERS: PCP Internal Medicine; Referring Provider Nurse Practitioner Acute Care; Visit Provider Nurse Practitioner Acute Care
DX: J45.40 Moderate persistent asthma, uncomplicated (principal)
CPT/HCPCS: 94060; 94726; 94729

== ENCOUNTER → 2022-03-12 | Outpatient (CLI) | payer MEDICARE, OTHER, SELFPAY ==
[2022-03-12 12:30] VITALS: PULSE 102; PULSE 104; PULSE 105; PULSE 107; PULSE 88; PULSE 90; PULSE 99; O2SAT 94; O2SAT 95; O2SAT 96; O2SAT 97; O2SAT 98
[2022-03-12 13:09] LABS: Bacteria 0 SEEN /hpf (None Seen); Mucous, Urine 0 SEEN /hpf (<or=2+); Red Blood Cells-Urine 0 SEEN /hpf (0-5); Squamous Epithelial Cells - UA 0 SEEN /hpf (5-10); White Blood Cells 0 SEEN /hpf (0-5)
[2022-03-12 13:51] LABS: Color, Urine Straw (Yellow); Glucose, Dipstick Normal (Normal); Ketone-Dipstick Negative (Negative); Leukocyte Esterase-Dipstick Negative /ul (Negative); Nitrite-Dipstick Negative (Negative); Occult Blood-Urine Negative /ul (Negative); Protein-Dipstick Negative (Negative); Specific Gravity, Urine 1.015 (1.002-1.030); Urine Bilirubin Dipstick Negative (Negative); Urine Clarity Clear (Clear); Urine Urobilinogen Normal (Normal); Urine pH 6.5 (5.0 - 8.0)
--- NOTE | 2022-03-13 05:34 | WT_ITS ---
PSN 6 Minute Walk Test 6 Minute Walk Test 6 Minute Walk Test: 6 Minute Walk Test PSN:6-Minute Walk Test Start: 03/12/22 13:00 Freq: Status: Active Protocol: RESP.6MINW Document 03/12/22 12:30 HJ (Rec: 03/12/22 13:03 [id number]) 6 Minute Walk Test Date Performed 03/12/22 Time Performed 12:30 Height 5 ft 5 in Weight: 102.058 kg Weight in Pounds 225.[address]: Rekha Dorman FAMILY SPECIALIST FIO2 (% Oxygen) 21 Assistive device used: None Pre-test Oxygen Delivery Method Room Air Pulse Ox (%) 96 Pulse Rate (60-100 beats/min) 88 Dyspnea Emma Scale (0-10) 0 Exertion Emma Scale (6-20) 6 1st minute Oxygen Delivery Method Room Air Pulse Ox (%) 97 Pulse Rate (60-100 beats/min) 99 2nd minute Oxygen Delivery Method Room Air Pulse Ox (%) 94 Pulse Rate (60-100 beats/min) 104 H 3rd minute Oxygen Delivery Method Bi-pap Pulse Ox (%) 95 Pulse Rate (60-100 beats/min) 105 H 4th minute Oxygen Delivery Method Room Air Pulse Ox (%) 97 Pulse Rate (60-100 beats/min) 107 H 5th minute Oxygen Delivery Method Room Air Pulse Ox (%) 96 Pulse Rate (60-100 beats/min) 107 H 6th minute Oxygen Delivery Method Room Air Pulse Ox (%) 96 Pulse Rate (60-100 beats/min) 102 H Post-test Oxygen Delivery Method Room Air Pulse Ox (%) 98 Pulse Rate (60-100 beats/min) 90 Dyspnea Emma Scale (0-10) 0.5 Exertion Emma Scale (6-20) 6 Full Laps Walked 19 Partial Lap, Number of Tiles Walked 4 Total Distance Walked (ft) 1125 Interpretation Interpretation: The patient was able to ambulate 1125 feet over the course of 6 minutes on room air with no assistive devices or breaks. The patient experienced no significant desaturation, but did have tachycardia as high as 107 bpm. These findings are consistent with deconditioning. Recommendations Recommendations: No supplemental oxygen is indicated at this time.
== END | disposition home or self-care (01) ==
LOC: PSN 12:33 → LAB 12:59
PROVIDERS: PCP Internal Medicine; Referring Provider Physician Assistant; Visit Provider Physician Assistant
DX: R30.0 Dysuria (principal); N39.0 Urinary tract infection, site not specified; R06.00 Dyspnea, unspecified
CPT/HCPCS: 81001; 87077; 87086; 87088; 87186; 94618

== ENCOUNTER → 2022-04-02 | Outpatient (CLI) | payer MEDICARE, OTHER, SELFPAY ==
--- NOTE | 2022-04-02 08:23 | US_ITS ---
STUDY: ABDOMINAL ULTRASOUND - ELASTOGRAPHY REASON FOR VISIT: Female, 71 years old. Fatty infiltration of the liver. TECHNIQUE: Liver stiffness measurements were obtained on a tok tok tok RS 85 ultrasound machine using a CA 1-7 probe following the SRU guidelines. 3 measurements were obtained using a 2-D-SWE method. The IQR/M was 16% suggesting a quality data set. TECHNICAL QUALITY: Adequate. COMPARISON: Comparison is made with prior ultrasound of the right upper quadrant done earlier today. FINDINGS: Liver: Fatty infiltration of the liver. Median liver stiffness measured 10.3 kPa. US/Elastography Parenchyma/Organ IMPRESSION: Liver stiffness measures 10.3 kPa compatible with F2-F3 (Mild to moderate liver fibrosis) Metavir score. Electronically Signed: Billy Kaplan MD at 12:26 EDT ,
--- NOTE | 2022-04-02 08:23 | US_ITS ---
STUDY: ABDOMINAL ULTRASOUND - RIGHT UPPER QUADRANT REASON FOR VISIT: Female, 71 years old fatty liver TECHNIQUE: Ultrasound evaluation of the right upper quadrant was performed with real-time and static toro-scale imaging. TECHNICAL QUALITY: Adequate. COMPARISON: None. FINDINGS: Liver: The liver measures 16.9 cm. There is increased echogenicity consistent with fatty infiltration. The bile ducts are within normal limits. There is hepatic color flow. The direction of portal flow is hepatopetal. There is no demonstrated mass lesion. Gallbladder: The patient is status post cholecystectomy. Common Bile Duct (C.B.D.): The common bile duct measures 6.3 mm. Pancreas: Normal size of the head, body and tail of the pancreas. There is no demonstrated pancreatic mass or cyst. Right Kidney: Normal size of the right kidney. The right kidney measures 11.5 cm x 6.3 cm x 4.3 cm. Normal renal cortex. The right cortex measures 1.3 cm. There is no demonstrated renal mass or cyst. There is no right hydronephrosis. US/Abdomen Limited IMPRESSION: Fatty infiltration of the liver. Status post cholecystectomy. Electronically Signed: Billy Kaplan MD at 12:24 EDT ,
== END | disposition home or self-care (01) ==
PROVIDERS: PCP Internal Medicine; Referring Provider Nurse Practitioner Adult Health; Visit Provider Nurse Practitioner Adult Health
DX: K76.0 Fatty (change of) liver, not elsewhere classified (principal); Z90.49 Acquired absence of other specified parts of digestive tract
CPT/HCPCS: 76705; 76981

== ENCOUNTER → 2022-04-05 | Outpatient (CLI) | payer MEDICARE, OTHER, SELFPAY ==
[2022-04-05 09:09] LABS: Microalbumin,Random Urine 6.8 mg/L (NO RANGE EST.)
[2022-04-05 09:27] LABS: ALB/GLOB Ratio 0.9 RATIO (0.9-2.4); AST(SGOT) 15 U/L (15-37); Alanine Aminotransfer ALT/SGPT 23 U/L (13-56); Albumin, Serum 3.4 g/dL (3.2-5.0); Alkaline Phosphatase 107 U/L (45-117); Anion Gap 6 (5-15); BUN 23 mg/dL (7-18); BUN/Creat Ratio 25.2 RATIO (10-20); Calcium,Total 8.8 mg/dL (8.5-10.1); Chloride 107 mmol/L (98-107); Cholesterol 153 mg/dL (200); Creatinine, Serum 0.91 mg/dL (0.55-1.02); EST Glomerular Filtration Rate 65 mL/min (>60); Est Glom Filt Rate - Afr Amer 78 mL/min (>60); Free T3 2.6 pg/mL (2.18-3.98); Globulin 3.6 g/dL (2.2-4.2); Glucose 99 mg/dL (74-106); High Density Lipoprotein 61 mg/dL; Magnesium 2.5 mg/dL (1.6-2.6); Sodium Level 142 mmol/L (136-145); T4 Free Direct 0.95 ng/dL (0.76-1.46); Thyroid Stim Hormone (TSH) 3.75 uIU/mL (0.358-3.74); Triglycerides 95 mg/dL; Very Low Density Lipoprotein 19 mg/dL (5-40)
[2022-04-05 09:44] LABS: Hemoglobin A1c 5.8 % (3.8-5.6)
[2022-04-05 10:00] LABS: Vitamin D,25 Hydroxy 48.8 ng/mL
[2022-04-11 17:07] LABS: Aldosterone, Serum 17.8 ng/dL (0.0-30.0)
[2022-04-11 17:36] LABS: Adrenocorticotropic Hormone 34.7 pg/mL (7.2-63.3); Renin, Plasma 1.499 ng/mL/hr (0.167-5.380)
== END | disposition home or self-care (01) ==
LOC: LAB 08:03
PROVIDERS: PCP Internal Medicine; Referring Provider Internal Medicine Endocrinology, Diabetes & Metabolism; Visit Provider Internal Medicine Endocrinology, Diabetes & Metabolism
DX: E03.9 Hypothyroidism, unspecified (principal); M06.9 Rheumatoid arthritis, unspecified; E23.7 Disorder of pituitary gland, unspecified; R73.03 Prediabetes; E55.9 Vitamin D deficiency, unspecified
CPT/HCPCS: 36415; 80053; 80061; 82024; 82043; 82088; 82306; 82533; 83036; 83735; 84244; 84439; 84443; 84481

== ENCOUNTER → 2022-05-16 | Outpatient (CLI) | payer MEDICARE, OTHER, SELFPAY ==
[2022-05-16 12:24] LABS: Absolute Lymphocyte Count 3.49 X10^3/uL (0.83-4.51); Absolute Neutrophil Count 3.1 X10^3/uL (2.0-7.7); Basophil# 0.04 X10^3/uL; Basophil% 0.5 % (0-1); Eosinophil# 0.23 X10^3/uL; Eosinophils% 3.1 % (0-5); Hematocrit 40.9 % (37-47); Hemoglobin 13.5 g/dL (12.0-15.0); Lymphocyte # 3.49 X10^3/ul (0.83-4.51); Lymphocyte % 47.6 % (19-41); Mean Corpuscular Hgb 31.3 pg (27.0-32.0); Mean Corpuscular Volume 94.7 fL (81-99); Mean Platelet Vol. 9.3 fl (6.2-12.0); Monocyte# 0.48 X10^3/uL; Monocyte% 6.5 % (0-10); NRBC Flagged by Analyzer 0 % (0-5); Neutrophil # 3.07 X10^3/uL (2.7-7.7); Platelet Count 341 K/mm3 (150-450); RBC Distribution Width CV 14.1 % (11.6-14.6); RBC Distribution Width SD 49.1 fl (35.1-43.9); Red Blood Count 4.32 M/mm3 (4.2-5.4); White Blood Count 7.3 K/mm3 (4.4-11.0)
[2022-05-16 13:01] LABS: AST(SGOT) 16 U/L (15-37); Alanine Aminotransfer ALT/SGPT 22 U/L (13-56); Albumin, Serum 3.7 g/dL (3.2-5.0); Alkaline Phosphatase 111 U/L (45-117); Anion Gap 7 (5-15); BUN 23 mg/dL (7-18); BUN/Creat Ratio 23.7 RATIO (10-20); Calcium,Total 9.2 mg/dL (8.5-10.1); Chloride 103 mmol/L (98-107); Creatinine, Serum 0.97 mg/dL (0.55-1.02); EST Glomerular Filtration Rate 60 mL/min (>60); Est Glom Filt Rate - Afr Amer 73 mL/min (>60); Globulin 3.7 g/dL (2.2-4.2); Glucose 94 mg/dL (74-106); Potassium 3.8 mmol/L (3.5-5.1); Protein, Total 7.4 g/dL (6.4-8.2); Sodium Level 140 mmol/L (136-145)
== END | disposition home or self-care (01) ==
LOC: LAB 11:48
PROVIDERS: PCP Internal Medicine; Visit Provider Internal Medicine Rheumatology
DX: M06.4 Inflammatory polyarthropathy (principal); M35.00 Sjogren syndrome, unspecified; E27.9 Disorder of adrenal gland, unspecified; M79.7 Fibromyalgia; M17.0 Bilateral primary osteoarthritis of knee; M16.0 Bilateral primary osteoarthritis of hip; D47.2 Monoclonal gammopathy; E03.9 Hypothyroidism, unspecified; G47.419 Narcolepsy without cataplexy; H81.03 Meniere's disease, bilateral; M51.37 Other intervertebral disc degeneration, lumbosacral region; M47.897 Other spondylosis, lumbosacral region; M47.892 Other spondylosis, cervical region; K76.0 Fatty (change of) liver, not elsewhere classified; Z79.899 Other long term (current) drug therapy
CPT/HCPCS: 36415; 80053; 85025

== ENCOUNTER → 2022-06-13 | Outpatient (CLI) | payer MEDICARE, OTHER, SELFPAY ==
[2022-06-23 08:08] LABS: Beef <0.10 kU/L (Class 0); Corn <0.10 kU/L (Class 0); Egg, Whole <0.10 kU/L (Class 0); Milk (Cow) 0.12 kU/L (Class 0/I); Peanut <0.10 kU/L (Class 0); Pork <0.10 kU/L (Class 0); Soybean <0.10 kU/L (Class 0); Wheat <0.10 kU/L (Class 0)
[2022-06-23 10:32] LABS: Chocolate <0.10 kU/L (Class 0)
== END | disposition home or self-care (01) ==
LOC: LAB 14:48
PROVIDERS: PCP Internal Medicine; Visit Provider Internal Medicine Gastroenterology
DX: R19.7 Diarrhea, unspecified (principal)
CPT/HCPCS: 36415; 86003; 86005

== ENCOUNTER → 2022-07-03 | Outpatient (CLI) | payer MEDICARE, OTHER, SELFPAY ==
[2022-07-03 13:34] LABS: Hemoglobin A1c 5.7 % (3.8-5.6)
[2022-07-03 13:44] LABS: AST(SGOT) 15 U/L (15-37); Alanine Aminotransfer ALT/SGPT 24 U/L (13-56); Albumin, Serum 3.7 g/dL (3.2-5.0); Alkaline Phosphatase 116 U/L (45-117); Anion Gap 8 (5-15); BUN 21 mg/dL (7-18); BUN/Creat Ratio 23.2 RATIO (10-20); Calcium,Total 9.2 mg/dL (8.5-10.1); Chloride 107 mmol/L (98-107); Creatinine, Serum 0.91 mg/dL (0.55-1.02); EST Glomerular Filtration Rate 65 mL/min (>60); Est Glom Filt Rate - Afr Amer 79 mL/min (>60); Free T3 2.7 pg/mL (2.18-3.98); Globulin 3.7 g/dL (2.2-4.2); Glucose 110 mg/dL (74-106); Potassium 3.6 mmol/L (3.5-5.1); Protein, Total 7.4 g/dL (6.4-8.2); Sodium Level 141 mmol/L (136-145); T4 Free Direct 0.94 ng/dL (0.76-1.46); Thyroid Stim Hormone (TSH) 2.42 uIU/mL (0.358-3.74)
== END | disposition home or self-care (01) ==
PROVIDERS: PCP Internal Medicine; Referring Provider Internal Medicine Endocrinology, Diabetes & Metabolism; Visit Provider Internal Medicine Endocrinology, Diabetes & Metabolism
DX: E27.40 Unspecified adrenocortical insufficiency (principal); E66.01 Morbid (severe) obesity due to excess calories; E03.9 Hypothyroidism, unspecified; E55.9 Vitamin D deficiency, unspecified; R73.03 Prediabetes
CPT/HCPCS: 36415; 80053; 83036; 84439; 84443; 84481

== ENCOUNTER → 2022-08-06 | Outpatient (CLI) | payer MEDICARE, OTHER, SELFPAY ==
[2022-08-06 17:02] LABS: Absolute Lymphocyte Count 4.35 X10^3/uL (0.83-4.51); Absolute Neutrophil Count 5.1 X10^3/uL (2.0-7.7); Basophil# 0.05 X10^3/uL; Basophil% 0.5 % (0-1); Eosinophil# 0.23 X10^3/uL; Eosinophils% 2.2 % (0-5); Hematocrit 41.8 % (37-47); Hemoglobin 13.2 g/dL (12.0-15.0); Lymphocyte # 4.35 X10^3/ul (0.83-4.51); Lymphocyte % 41.7 % (19-41); Mean Corp Hgb Conc 31.6 g/dL (32-36); Mean Corpuscular Hgb 30.4 pg (27.0-32.0); Mean Corpuscular Volume 96.3 fL (81-99); Monocyte# 0.65 X10^3/uL; Monocyte% 6.2 % (0-10); NRBC Flagged by Analyzer 0 % (0-5); Neutrophil % 48.9 % (47-70); Platelet Count 341 K/mm3 (150-450); RBC Distribution Width CV 13.2 % (11.6-14.6); RBC Distribution Width SD 47.1 fl (35.1-43.9); Red Blood Count 4.34 M/mm3 (4.2-5.4); White Blood Count 10.4 K/mm3 (4.4-11.0)
[2022-08-06 18:44] LABS: ALB/GLOB Ratio 1.1 RATIO (0.9-2.4); AST(SGOT) 17 U/L (15-37); Alanine Aminotransfer ALT/SGPT 24 U/L (13-56); Albumin, Serum 3.9 g/dL (3.2-5.0); Alkaline Phosphatase 102 U/L (45-117); Anion Gap 5 (5-15); BUN 19 mg/dL (7-18); Calcium,Total 9.1 mg/dL (8.5-10.1); Chloride 109 mmol/L (98-107); Creatinine, Serum 0.95 mg/dL (0.55-1.02); EST Glomerular Filtration Rate 62 mL/min (>60); Est Glom Filt Rate - Afr Amer 75 mL/min (>60); Globulin 3.4 g/dL (2.2-4.2); Glucose 96 mg/dL (74-106); Potassium 3.6 mmol/L (3.5-5.1); Protein, Total 7.3 g/dL (6.4-8.2); Sodium Level 142 mmol/L (136-145)
== END | disposition home or self-care (01) ==
PROVIDERS: PCP Internal Medicine; Visit Provider Internal Medicine Rheumatology
DX: M06.4 Inflammatory polyarthropathy (principal); M35.00 Sjogren syndrome, unspecified; E27.9 Disorder of adrenal gland, unspecified; Z79.899 Other long term (current) drug therapy; M79.7 Fibromyalgia; M17.0 Bilateral primary osteoarthritis of knee; M16.0 Bilateral primary osteoarthritis of hip; D47.2 Monoclonal gammopathy; E03.9 Hypothyroidism, unspecified; G47.419 Narcolepsy without cataplexy; H81.03 Meniere's disease, bilateral; M51.37 Other intervertebral disc degeneration, lumbosacral region; M47.897 Other spondylosis, lumbosacral region; M47.892 Other spondylosis, cervical region; K76.0 Fatty (change of) liver, not elsewhere classified
CPT/HCPCS: 36415; 80053; 85025

== ENCOUNTER → 2022-09-10 | Outpatient (CLI) | payer MEDICARE, OTHER, SELFPAY ==
--- NOTE | 2022-09-10 12:04 | BI_ITS ---
MAMMOGRAPHY - BILATERAL SCREENING REASON FOR EXAM: Female, 71 years old. Routine annual screening examination. PERTINENT HISTORY: Sister with breast cancer. Grandmother with breast cancer. Aunt with breast cancer. TECHNIQUE: Digital bilateral breast gael (3D mammographic acquisition) in the CC and MLO projections. 2-D mediolateral oblique (MLO) and craniocaudad (CC) views of both breasts were obtained. CAD: Full Field Digital Mammography with Computer Added Detection was performed. COMPARISON: Comparison is made with prior study 05/18/2021 and 05/18/2019. FINDINGS: Breast Composition: The breasts are almost entirely fatty. There are no dominant masses or suspicious calcifications. Stable small bilateral axillary lymph nodes. No other significant abnormalities are identified. There has been no significant change since the prior study. BI/SCRN MAMM (CAD)W/GAEL BILAT IMPRESSION: Stable bilateral screening mammogram. Yearly follow-up mammogram recommended. (A) ASSESSMENT CATEGORY: BIRADS Category 2: Benign. A letter regarding these results will be sent to the patient by the facility within 30 days. Approximately 10% of breast cancers are not detected by mammography. A normal mammogram should not delay biopsy of a clinically suspicious abnormality. [id number] Electronically Signed: Billy Kaplan MD at 13:01 EST ,
== END | disposition home or self-care (01) ==
PROVIDERS: PCP Internal Medicine; Visit Provider Internal Medicine
DX: Z12.31 Encounter for screening mammogram for malignant neoplasm of breast (principal); Z80.3 Family history of malignant neoplasm of breast
CPT/HCPCS: 77063; 77067

== ENCOUNTER → 2022-10-28 | Outpatient (CLI) | payer MEDICARE, OTHER, SELFPAY ==
[2022-10-28 15:53] LABS: Absolute Lymphocyte Count 3.36 X10^3/uL (0.83-4.51); Absolute Neutrophil Count 2.8 X10^3/uL (2.0-7.7); Basophil# 0.04 X10^3/uL; Basophil% 0.6 % (0-1); Eosinophil# 0.15 X10^3/uL; Eosinophils% 2.2 % (0-5); Hematocrit 39.1 % (37-47); Hemoglobin 12.5 g/dL (12.0-15.0); Lymphocyte # 3.36 X10^3/ul (0.83-4.51); Lymphocyte % 49.9 % (19-41); Mean Corpuscular Hgb 30.9 pg (27.0-32.0); Mean Corpuscular Volume 96.5 fL (81-99); Mean Platelet Vol. 9.6 fl (6.2-12.0); Monocyte# 0.41 X10^3/uL; Monocyte% 6.1 % (0-10); NRBC Flagged by Analyzer 0 % (0-5); Neutrophil # 2.76 X10^3/uL (2.7-7.7); Neutrophil % 40.9 % (47-70); Platelet Count 342 K/mm3 (150-450); RBC Distribution Width CV 12.8 % (11.6-14.6); RBC Distribution Width SD 45.7 fl (35.1-43.9); Red Blood Count 4.05 M/mm3 (4.2-5.4); White Blood Count 6.7 K/mm3 (4.4-11.0)
[2022-10-28 16:05] LABS: ALB/GLOB Ratio 1.1 RATIO (0.9-2.4); AST(SGOT) 15 U/L (15-37); Alanine Aminotransfer ALT/SGPT 22 U/L (13-56); Albumin, Serum 3.7 g/dL (3.2-5.0); Alkaline Phosphatase 92 U/L (45-117); Anion Gap 7 (5-15); BUN 27 mg/dL (7-18); BUN/Creat Ratio 36.2 RATIO (10-20); Calcium,Total 9.3 mg/dL (8.5-10.1); Chloride 105 mmol/L (98-107); Creatinine, Serum 0.75 mg/dL (0.55-1.02); EST Glomerular Filtration Rate 82 mL/min (>60); Est Glom Filt Rate - Afr Amer 99 mL/min (>60); Globulin 3.4 g/dL (2.2-4.2); Glucose 88 mg/dL (74-106); Potassium 3.8 mmol/L (3.5-5.1); Protein, Total 7.1 g/dL (6.4-8.2); Sodium Level 141 mmol/L (136-145)
== END | disposition home or self-care (01) ==
LOC: BIMLAB 12:24
PROVIDERS: PCP Internal Medicine; Referring Provider Internal Medicine Rheumatology; Visit Provider Internal Medicine Rheumatology
DX: M06.4 Inflammatory polyarthropathy (principal); M35.00 Sjogren syndrome, unspecified; E27.9 Disorder of adrenal gland, unspecified; M79.7 Fibromyalgia; M17.0 Bilateral primary osteoarthritis of knee; M16.0 Bilateral primary osteoarthritis of hip; D47.2 Monoclonal gammopathy; E03.9 Hypothyroidism, unspecified; G47.419 Narcolepsy without cataplexy; H81.03 Meniere's disease, bilateral; M51.37 Other intervertebral disc degeneration, lumbosacral region; M47.897 Other spondylosis, lumbosacral region; M47.892 Other spondylosis, cervical region; K76.0 Fatty (change of) liver, not elsewhere classified; Z79.899 Other long term (current) drug therapy
CPT/HCPCS: 36415; 80053; 85025

== ENCOUNTER → 2022-11-11 | Outpatient (CLI) | payer MEDICARE, OTHER, SELFPAY ==
[2022-11-11 14:46] LABS: Absolute Neutrophil Count 5.2 X10^3/uL (2.0-7.7); Basophil# 0.04 X10^3/uL; Basophil% 0.5 % (0-1); Eosinophil# 0.14 X10^3/uL; Eosinophils% 1.6 % (0-5); Hematocrit 36.1 % (37-47); Hemoglobin 11.9 g/dL (12.0-15.0); Lymphocyte % 32.4 % (19-41); Mean Platelet Vol. 9.4 fl (6.2-12.0); Monocyte# 0.43 X10^3/uL; NRBC Flagged by Analyzer 0 % (0-5); Neutrophil % 60.3 % (47-70); Platelet Count 377 K/mm3 (150-450); RBC Distribution Width CV 13.1 % (11.6-14.6); RBC Distribution Width SD 44.8 fl (35.1-43.9); Red Blood Count 3.84 M/mm3 (4.2-5.4); White Blood Count 8.6 K/mm3 (4.4-11.0)
[2022-11-11 15:50] LABS: Vitamin D,25 Hydroxy 64.4 ng/mL
[2022-11-11 16:16] LABS: ALB/GLOB Ratio 1.1 RATIO (0.9-2.4); AST(SGOT) 19 U/L (15-37); Alanine Aminotransfer ALT/SGPT 23 U/L (13-56); Albumin, Serum 3.6 g/dL (3.2-5.0); Alkaline Phosphatase 90 U/L (45-117); Anion Gap 7 (5-15); BUN 26 mg/dL (7-18); BUN/Creat Ratio 33.2 RATIO (10-20); Chloride 106 mmol/L (98-107); Cholesterol 172 mg/dL (200); Creatinine, Serum 0.78 mg/dL (0.55-1.02); EST Glomerular Filtration Rate 77 mL/min (>60); Est Glom Filt Rate - Afr Amer 94 mL/min (>60); Free T3 2.6 pg/mL (2.18-3.98); Globulin 3.3 g/dL (2.2-4.2); Glucose 97 mg/dL (74-106); High Density Lipoprotein 62 mg/dL; LDH 214 U/L (84-246); Potassium 3.7 mmol/L (3.5-5.1); Protein, Total 6.9 g/dL (6.4-8.2); Sodium Level 139 mmol/L (136-145); Thyroid Stim Hormone (TSH) 0.99 uIU/mL (0.358-3.74); Triglycerides 82 mg/dL; Very Low Density Lipoprotein 16 mg/dL (5-40)
[2022-11-11 17:58] LABS: Hemoglobin A1c < 3.8 % (3.8-5.6)
[2022-11-11 18:49] LABS: Erythrocyte Sedimentation Rate 14 mm/hr (0-30)
[2022-11-15 15:08] LABS: Free Kappa Light Chains 18.2 mg/L (3.3-19.4); Free Lambda Light Chains 19.6 mg/L (5.7-26.3)
== END | disposition home or self-care (01) ==
LOC: LAB 13:32
PROVIDERS: PCP Internal Medicine; Referring Provider Internal Medicine Medical Oncology; Visit Provider Internal Medicine Medical Oncology
DX: E27.40 Unspecified adrenocortical insufficiency (principal); E03.9 Hypothyroidism, unspecified; E78.00 Pure hypercholesterolemia, unspecified; R73.03 Prediabetes; E55.9 Vitamin D deficiency, unspecified
CPT/HCPCS: 36415; 80053; 80061; 82306; 82784; 83036; 83615; 83883; 84165; 84439; 84443; 84481; 85025; 85652; 86334

== ENCOUNTER → 2022-12-16 | Outpatient (CLI) | payer MEDICARE, OTHER, SELFPAY ==
--- NOTE | 2022-12-16 08:08 | US_ITS ---
STUDY: ABDOMINAL ULTRASOUND - ELASTOGRAPHY TECHNICAL QUALITY: Adequate. COMPARISON: Comparison is made with prior study dated APRIL 02, 2022. FINDINGS: REASON FOR VISIT: Female, 72 years old. Fatty infiltration of the liver. TECHNIQUE: Liver stiffness measurements were obtained on a [employer] RS 85 ultrasound machine using a CA 1-7 probe following the SRU guidelines. 3 measurements were obtained using a 2-D-SWE method. TheIQR/M was 114% suggesting a quality data set. TECHNICAL QUALITY: Adequate. COMPARISON: Comparison is made with prior study dated APRIL 02, 2022. FINDINGS: Liver: There is no demonstrated mass lesion. Median liver stiffness measured 8.2 kPa. Abdomen: There is no demonstrated mass lesion. US/ABD Limited w/ Elastography IMPRESSION: Liver stiffness measures 8.2 kPa compatible with F2-F3 (Mild to moderate liver fibrosis) Metavir score. Electronically Signed: Billy Kaplan MD at 13:54 EDT ,
== END | disposition home or self-care (01) ==
LOC: US 08:08
PROVIDERS: PCP Internal Medicine; Referring Provider Internal Medicine Gastroenterology; Visit Provider Internal Medicine Gastroenterology
DX: K76.0 Fatty (change of) liver, not elsewhere classified (principal); R19.7 Diarrhea, unspecified
CPT/HCPCS: 76705; 76981

== ENCOUNTER → 2022-12-31 | Outpatient (CLI) | payer MEDICARE, OTHER, SELFPAY ==
--- NOTE | 2022-12-31 13:21 | PFTCOMP_ITS ---
COMPLETE PULMONARY FUNCTION TEST INTERPRETATION Brief HPI: Patient is a 72-year-old female, currently under the care of myself, who presents to [facility] for complete pulmonary function tests secondary to diagnosis of long-term drug therapy. Respiratory therapist reports good effort and reproducible results. Interpretation: Forced expiration spirometry shows no large airways obstructive ventilatory defect with an FEV1 of 94% predicted. There is no significant bronchodilator response by strict ATS criteria. Spirograms are of good quality and plateau normally. The respiratory flow volume loop shows a normal pattern. Lung volumes by body plethysmography show a normal total lung capacity at 5.06 L, 101% predicted. All other lung volumes are within normal limits. Diffusion capacity by carbon monoxide is normal at 93% predicted. The airway resistance is slightly elevated. Compared to previous pulmonary function tests from 03/11/2022, there has been normalization of DLCO. Impression: Grossly normal pulmonary function test with significant improvements compared to 03/11/2022.
== END | disposition home or self-care (01) ==
PROVIDERS: PCP Internal Medicine; Referring Provider Internal Medicine Critical Care Medicine; Visit Provider Internal Medicine Critical Care Medicine
DX: G47.31 Primary central sleep apnea (principal); J45.40 Moderate persistent asthma, uncomplicated; Z79.899 Other long term (current) drug therapy
CPT/HCPCS: 94060; 94726; 94729

== ENCOUNTER → 2023-01-02 | Outpatient (CLI) | payer MEDICARE, OTHER, SELFPAY ==
[2023-01-02 09:08] VITALS: PULSE 100; PULSE 102; PULSE 105; PULSE 106; PULSE 108; PULSE 91; PULSE 94; O2SAT 93; O2SAT 94; O2SAT 95; O2SAT 97; O2SAT 98; O2SAT 99
--- NOTE | 2023-01-02 10:38 | PCM.PSN.6M ---
PSN 6 Minute Walk Test 6 Minute Walk Test 6 Minute Walk Test: 6 Minute Walk Test PSN:6-Minute Walk Test Start: 01/02/23 09:07 Freq: Status: Active Protocol: RESP.6MINW Document 01/02/23 09:08 [facility] (Rec: 01/02/23 09:11 [facility] [id number]) 6 Minute Walk Test Date Performed 01/02/23 Time Performed 08:15 Height 5 ft 5.5 in Weight: 105.687 kg Weight in Pounds 233.[address]: Kvng Nunez Assistive device used: None Pre-test Oxygen Delivery Method Room Air Pulse Ox (%) 97 Pulse Rate (60-100 beats/min) 91 Dyspnea Emma Scale (0-10) 0 1st minute Oxygen Delivery Method Room Air Pulse Ox (%) 95 Pulse Rate (60-100 beats/min) 100 Dyspnea Emma Scale (0-10) 0 Number of Rests Taken 0 2nd minute Oxygen Delivery Method Room Air Pulse Ox (%) 95 Pulse Rate (60-100 beats/min) 102 H Dyspnea Emma Scale (0-10) 0 Number of Rests Taken 0 3rd minute Oxygen Delivery Method Room Air Pulse Ox (%) 94 Pulse Rate (60-100 beats/min) 108 H Dyspnea Emma Scale (0-10) 0 Number of Rests Taken 0 4th minute Oxygen Delivery Method Room Air Pulse Ox (%) 93 Pulse Rate (60-100 beats/min) 106 H Dyspnea Emma Scale (0-10) 0 Number of Rests Taken 0 5th minute Oxygen Delivery Method Room Air Pulse Ox (%) 98 Pulse Rate (60-100 beats/min) 105 H Dyspnea Emma Scale (0-10) 0 Number of Rests Taken 0 6th minute Oxygen Delivery Method Room Air Pulse Ox (%) 97 Pulse Rate (60-100 beats/min) 106 H Dyspnea Emma Scale (0-10) 0 Number of Rests Taken 0 Post-test Oxygen Delivery Method Room Air Pulse Ox (%) 99 Pulse Rate (60-100 beats/min) 94 Dyspnea Emma Scale (0-10) 0 Full Laps Walked 19 Partial Lap, Number of Tiles Walked 32 Total Distance Walked (ft) 1153 Interpretation Interpretation: Patient was able to ambulate 1153 feet over the course of 6 minutes on room air with no assistive devices or breaks. The patient did experience significant desaturation from a baseline of 97% to as low as 93%. There was an element of reflexive tachycardia. These findings are consistent with deconditioning Recommendations Recommendations: No supplemental oxygen is indicated at this time
== END | disposition home or self-care (01) ==
LOC: PSN 08:19
PROVIDERS: PCP Internal Medicine; Referring Provider Internal Medicine Critical Care Medicine; Visit Provider Internal Medicine Critical Care Medicine
DX: G47.31 Primary central sleep apnea (principal); J45.40 Moderate persistent asthma, uncomplicated; Z79.899 Other long term (current) drug therapy
CPT/HCPCS: 94618

== ENCOUNTER → 2023-01-19 | Outpatient (CLI) | payer MEDICARE, OTHER, SELFPAY ==
[2023-01-19 11:30] LABS: Absolute Lymphocyte Count 3.14 X10^3/uL (0.83-4.51); Absolute Neutrophil Count 5.2 X10^3/uL (2.0-7.7); Basophil# 0.05 X10^3/uL; Basophil% 0.5 % (0-1); Eosinophil# 0.21 X10^3/uL; Eosinophils% 2.3 % (0-5); Hematocrit 39.3 % (37-47); Hemoglobin 12.4 g/dL (12.0-15.0); Lymphocyte # 3.14 X10^3/ul (0.83-4.51); Lymphocyte % 34.2 % (19-41); Mean Corp Hgb Conc 31.6 g/dL (32-36); Mean Corpuscular Hgb 30.5 pg (27.0-32.0); Mean Corpuscular Volume 96.6 fL (81-99); Monocyte% 6.5 % (0-10); NRBC Flagged by Analyzer 0 % (0-5); Neutrophil # 5.16 X10^3/uL (2.7-7.7); Neutrophil % 56.2 % (47-70); Platelet Count 353 K/mm3 (150-450); RBC Distribution Width CV 14.4 % (11.6-14.6); RBC Distribution Width SD 50.6 fl (35.1-43.9); Red Blood Count 4.07 M/mm3 (4.2-5.4); White Blood Count 9.2 K/mm3 (4.4-11.0)
[2023-01-19 11:54] LABS: AST(SGOT) 15 U/L (15-37); Alanine Aminotransfer ALT/SGPT 23 U/L (13-56); Albumin, Serum 3.5 g/dL (3.2-5.0); Alkaline Phosphatase 102 U/L (45-117); Anion Gap 4 (5-15); BUN 25 mg/dL (7-18); BUN/Creat Ratio 32.6 RATIO (10-20); Calcium,Total 8.6 mg/dL (8.5-10.1); Chloride 106 mmol/L (98-107); Creatinine, Serum 0.77 mg/dL (0.55-1.02); EST Glomerular Filtration Rate 79 mL/min (>60); Est Glom Filt Rate - Afr Amer 96 mL/min (>60); Globulin 3.5 g/dL (2.2-4.2); Glucose 96 mg/dL (74-106); Potassium 3.9 mmol/L (3.5-5.1); Sodium Level 140 mmol/L (136-145)
== END | disposition home or self-care (01) ==
LOC: LAB.FUTURE 13:15 → LAB 23:48
PROVIDERS: PCP Internal Medicine; Referring Provider Internal Medicine Rheumatology; Visit Provider Internal Medicine Rheumatology
DX: M06.4 Inflammatory polyarthropathy (principal); M35.00 Sjogren syndrome, unspecified; E27.9 Disorder of adrenal gland, unspecified; M79.7 Fibromyalgia; M17.0 Bilateral primary osteoarthritis of knee; M16.0 Bilateral primary osteoarthritis of hip; D47.2 Monoclonal gammopathy; E03.9 Hypothyroidism, unspecified; G47.419 Narcolepsy without cataplexy; H81.03 Meniere's disease, bilateral; M51.37 Other intervertebral disc degeneration, lumbosacral region; M47.897 Other spondylosis, lumbosacral region; M47.892 Other spondylosis, cervical region; K76.0 Fatty (change of) liver, not elsewhere classified; Z79.899 Other long term (current) drug therapy
CPT/HCPCS: 36415; 80053; 85025

== ENCOUNTER → 2023-04-16 | Outpatient (CLI) | payer MEDICARE, OTHER, SELFPAY ==
[2023-04-16 16:41] LABS: Absolute Neutrophil Count 4.9 X10^3/uL (2.0-7.7); Basophil# 0.05 X10^3/uL; Basophil% 0.5 % (0-1); Eosinophil# 0.15 X10^3/uL; Eosinophils% 1.5 % (0-5); Hematocrit 40.9 % (37-47); Lymphocyte % 41.1 % (19-41); Mean Corp Hgb Conc 31.8 g/dL (32-36); Mean Corpuscular Hgb 30.2 pg (27.0-32.0); Mean Corpuscular Volume 95.1 fL (81-99); Mean Platelet Vol. 9.3 fl (6.2-12.0); Monocyte# 0.57 X10^3/uL; Monocyte% 5.9 % (0-10); NRBC Flagged by Analyzer 0 % (0-5); Neutrophil # 4.92 X10^3/uL (2.7-7.7); Neutrophil % 50.5 % (47-70); Platelet Count 382 K/mm3 (150-450); RBC Distribution Width CV 13.6 % (11.6-14.6); RBC Distribution Width SD 46.8 fl (35.1-43.9); White Blood Count 9.7 K/mm3 (4.4-11.0)
[2023-04-16 17:15] LABS: AST(SGOT) 18 U/L (15-37); Alanine Aminotransfer ALT/SGPT 28 U/L (13-56); Albumin, Serum 3.6 g/dL (3.2-5.0); Alkaline Phosphatase 113 U/L (45-117); Anion Gap 7 (5-15); BUN 16 mg/dL (7-18); BUN/Creat Ratio 21.1 RATIO (10-20); Calcium,Total 8.9 mg/dL (8.5-10.1); Chloride 107 mmol/L (98-107); Creatinine, Serum 0.76 mg/dL (0.55-1.02); EST Glomerular Filtration Rate 80 mL/min (>60); Est Glom Filt Rate - Afr Amer 97 mL/min (>60); Globulin 3.6 g/dL (2.2-4.2); Glucose 103 mg/dL (74-106); Potassium 3.6 mmol/L (3.5-5.1); Protein, Total 7.2 g/dL (6.4-8.2); Sodium Level 140 mmol/L (136-145)
== END | disposition home or self-care (01) ==
LOC: BIMLAB 15:56
PROVIDERS: PCP Internal Medicine; Visit Provider Internal Medicine Rheumatology
DX: M06.4 Inflammatory polyarthropathy (principal); M35.00 Sjogren syndrome, unspecified; E27.9 Disorder of adrenal gland, unspecified; M79.7 Fibromyalgia; M17.0 Bilateral primary osteoarthritis of knee; M16.0 Bilateral primary osteoarthritis of hip; D47.2 Monoclonal gammopathy; E03.9 Hypothyroidism, unspecified; G47.419 Narcolepsy without cataplexy; H81.03 Meniere's disease, bilateral; M51.37 Other intervertebral disc degeneration, lumbosacral region; M47.897 Other spondylosis, lumbosacral region; M47.892 Other spondylosis, cervical region; K76.0 Fatty (change of) liver, not elsewhere classified; Z79.899 Other long term (current) drug therapy
CPT/HCPCS: 36415; 80053; 85025

== ENCOUNTER → 2023-05-16 | Outpatient (CLI) | payer MEDICARE, OTHER, SELFPAY ==
[2023-05-16 10:41] LABS: Microalbumin,Random Urine 10.4 mg/L (NO RANGE EST.); Microalbumin:Creatinine Ratio 6.7 mg/g CRE (<30 mg/g CRE)
[2023-05-16 11:04] LABS: AST(SGOT) 14 U/L (15-37); Alanine Aminotransfer ALT/SGPT 22 U/L (13-56); Albumin, Serum 3.5 g/dL (3.2-5.0); Alkaline Phosphatase 95 U/L (45-117); Anion Gap 6 (5-15); BUN 27 mg/dL (7-18); BUN/Creat Ratio 31.1 RATIO (10-20); Calcium,Total 8.5 mg/dL (8.5-10.1); Chloride 105 mmol/L (98-107); Creatinine, Serum 0.87 mg/dL (0.55-1.02); EST Glomerular Filtration Rate 68 mL/min (>60); Est Glom Filt Rate - Afr Amer 83 mL/min (>60); Globulin 3.5 g/dL (2.2-4.2); Glucose 97 mg/dL (74-106); Potassium 3.2 mmol/L (3.5-5.1); Sodium Level 140 mmol/L (136-145); Thyroid Stim Hormone (TSH) 4.55 uIU/mL (0.358-3.74)
[2023-05-16 11:16] LABS: Vitamin D,25 Hydroxy 44.8 ng/mL
[2023-05-16 11:40] LABS: Hemoglobin A1c 5.7 % (3.8-5.6)
[2023-05-17 14:10] LABS: Adrenocorticotropic Hormone 17.7 pg/mL (7.2-63.3)
== END | disposition home or self-care (01) ==
LOC: LAB 08:22
PROVIDERS: PCP Internal Medicine; Referring Provider Internal Medicine Endocrinology, Diabetes & Metabolism; Visit Provider Internal Medicine Endocrinology, Diabetes & Metabolism
DX: E27.40 Unspecified adrenocortical insufficiency (principal); E03.9 Hypothyroidism, unspecified; R73.03 Prediabetes; E78.00 Pure hypercholesterolemia, unspecified; E55.9 Vitamin D deficiency, unspecified
CPT/HCPCS: 36415; 80053; 82024; 82043; 82306; 82570; 83036; 84443; 84481

== ENCOUNTER → 2023-06-03 | Outpatient (CLI) | payer MEDICARE, OTHER, SELFPAY ==
[2023-06-03 12:43] LABS: Erythrocyte Sedimentation Rate 16 mm/hr (0-30)
[2023-06-03 12:46] LABS: Absolute Lymphocyte Count 4.82 X10^3/uL (0.83-4.51); Absolute Neutrophil Count 4.2 X10^3/uL (2.0-7.7); Basophil# 0.07 X10^3/uL; Basophil% 0.7 % (0-1); Eosinophil# 0.18 X10^3/uL; Eosinophils% 1.8 % (0-5); Hematocrit 39.9 % (37-47); Hemoglobin 12.7 g/dL (12.0-15.0); Lymphocyte # 4.82 X10^3/ul (0.83-4.51); Lymphocyte % 48.2 % (19-41); Mean Corp Hgb Conc 31.8 g/dL (32-36); Mean Corpuscular Hgb 30.2 pg (27.0-32.0); Mean Platelet Vol. 8.8 fl (6.2-12.0); Monocyte# 0.63 X10^3/uL; Monocyte% 6.3 % (0-10); NRBC Flagged by Analyzer 0 % (0-5); Neutrophil # 4.19 X10^3/uL (2.7-7.7); Platelet Count 403 K/mm3 (150-450); RBC Distribution Width SD 48.5 fl (35.1-43.9)
[2023-06-03 13:36] LABS: ALB/GLOB Ratio 0.9 RATIO (0.9-2.4); AST(SGOT) 18 U/L (15-37); Alanine Aminotransfer ALT/SGPT 28 U/L (13-56); Albumin, Serum 3.4 g/dL (3.2-5.0); Alkaline Phosphatase 87 U/L (45-117); Anion Gap 2 (5-15); BUN 24 mg/dL (7-18); BUN/Creat Ratio 31.2 RATIO (10-20); CRP < 2.90 mg/L (0.0-3.0); Calcium,Total 8.9 mg/dL (8.5-10.1); Chloride 108 mmol/L (98-107); Creatinine, Serum 0.77 mg/dL (0.55-1.02); EST Glomerular Filtration Rate 79 mL/min (>60); Est Glom Filt Rate - Afr Amer 96 mL/min (>60); Globulin 3.7 g/dL (2.2-4.2); Glucose 99 mg/dL (74-106); Magnesium 2.3 mg/dL (1.6-2.6); Potassium 3.3 mmol/L (3.5-5.1); Protein, Total 7.1 g/dL (6.4-8.2); Sodium Level 139 mmol/L (136-145)
== END | disposition home or self-care (01) ==
PROVIDERS: PCP Internal Medicine; Referring Provider Internal Medicine Gastroenterology; Visit Provider Internal Medicine Gastroenterology
DX: E03.9 Hypothyroidism, unspecified (principal); M35.00 Sjogren syndrome, unspecified; R19.7 Diarrhea, unspecified; R06.00 Dyspnea, unspecified
CPT/HCPCS: 36415; 80053; 83735; 85025; 85652; 86140

== ENCOUNTER → 2023-07-09 | Outpatient (CLI) | payer MEDICARE, OTHER, SELFPAY ==
[2023-07-09 16:16] LABS: Absolute Lymphocyte Count 3.97 X10^3/uL (0.83-4.51); Absolute Neutrophil Count 4.7 X10^3/uL (2.0-7.7); Basophil# 0.07 X10^3/uL; Basophil% 0.7 % (0-1); Eosinophil# 0.33 X10^3/uL; Eosinophils% 3.4 % (0-5); Hematocrit 40.2 % (37-47); Hemoglobin 13.1 g/dL (12.0-15.0); Lymphocyte # 3.97 X10^3/ul (0.83-4.51); Lymphocyte % 41.4 % (19-41); Mean Corp Hgb Conc 32.6 g/dL (32-36); Mean Corpuscular Hgb 31.5 pg (27.0-32.0); Mean Corpuscular Volume 96.6 fL (81-99); Mean Platelet Vol. 8.9 fl (6.2-12.0); Monocyte# 0.53 X10^3/uL; Monocyte% 5.5 % (0-10); NRBC Flagged by Analyzer 0 % (0-5); Neutrophil # 4.67 X10^3/uL (2.7-7.7); Neutrophil % 48.8 % (47-70); Platelet Count 347 K/mm3 (150-450); RBC Distribution Width CV 13.1 % (11.6-14.6); Red Blood Count 4.16 M/mm3 (4.2-5.4); White Blood Count 9.6 K/mm3 (4.4-11.0)
[2023-07-09 16:49] LABS: ALB/GLOB Ratio 1.1 RATIO (0.9-2.4); AST(SGOT) 18 U/L (15-37); Alanine Aminotransfer ALT/SGPT 21 U/L (13-56); Albumin, Serum 3.7 g/dL (3.2-5.0); Alkaline Phosphatase 81 U/L (45-117); Anion Gap 4 (5-15); BUN 27 mg/dL (7-18); BUN/Creat Ratio 29.6 RATIO (10-20); Calcium,Total 9.4 mg/dL (8.5-10.1); Chloride 109 mmol/L (98-107); Creatinine, Serum 0.91 mg/dL (0.55-1.02); EST Glomerular Filtration Rate 65 mL/min (>60); Est Glom Filt Rate - Afr Amer 78 mL/min (>60); Globulin 3.3 g/dL (2.2-4.2); Glucose 109 mg/dL (74-106); Potassium 3.3 mmol/L (3.5-5.1); Sodium Level 141 mmol/L (136-145)
== END | disposition home or self-care (01) ==
LOC: LAB 15:47
PROVIDERS: PCP Internal Medicine; Visit Provider Internal Medicine Rheumatology
DX: M06.4 Inflammatory polyarthropathy (principal); M35.00 Sjogren syndrome, unspecified; E27.9 Disorder of adrenal gland, unspecified; M79.7 Fibromyalgia; M17.0 Bilateral primary osteoarthritis of knee; M16.0 Bilateral primary osteoarthritis of hip; D47.2 Monoclonal gammopathy; E03.9 Hypothyroidism, unspecified; G47.419 Narcolepsy without cataplexy; H81.03 Meniere's disease, bilateral; M51.37 Other intervertebral disc degeneration, lumbosacral region; M47.897 Other spondylosis, lumbosacral region; M47.892 Other spondylosis, cervical region; K76.0 Fatty (change of) liver, not elsewhere classified; Z79.899 Other long term (current) drug therapy
CPT/HCPCS: 36415; 80053; 85025

== ENCOUNTER → 2023-08-26 | Outpatient (CLI) | payer MEDICARE, OTHER, SELFPAY ==
--- OUTSIDE RECORDS SUMMARY | 2023-08-26 12:21 | XMS RPT_ITS | CCD ---
Author Name Unknown Address [facility] [place] [address] Organization [facility] Care Team Providers Care Field Party Manager Name Role Phone Unavailable Primary Care Provider Unavailabl e [facility], [facility] Referring Unavailable GISSELLE INGRAM Attending Unavailable Allergies Allergy Classification Reported Allergen(s) Allergy Type Date of Onset Reaction(s) Facility (2 sources) Ketorolac Drug Allergy 03-30-2007 Hives [facility] Work Phone: (2 sources) Phenytoin Drug Allergy 07-21-2006 Rash [facility] Work Phone: Medications Completed/Discontinued Medications Medication Drug Class(es) Dates Sig (Normalized) Sig (Original) 200 actuat albuterol 0.09 mg/actuat metered dose inhaler (2 sources) beta2-Adrenergic Agonist Start: 07-21-2006 take 1 puff(s) by inhalation once daily as needed for wheezing ALBUTEROL 90 MCG/ACTUATION AEROSOL INHALER Inhale one(1) - two(2) puffs four(4) times a day as needed for wheezing and shortness of breath. 0 07/21/2006 Active Problems Active Problems Problem Classification Problem Date Documented Date Episodic/Chronic Neoplasms of unspecified nature or uncertain behavior (2 sources) Immunosecretory disorder; Translations: [Monoclonal gammopathy] Onset: 03-30-2007 03-30-2007 Chronic Other congenital anomalies (2 sources) Congenital anomaly of skin; Translations: [Other specified congenital malformations of skin] Onset: 07-21-2006 07-21-2006 Chronic Unclassified (2 sources) New Patient; Translations: [New Patient] Onset: 05-28-2023 Past or Other Problems Problem Classification Problem Date Documented Date Episodic/Chronic Residual codes; unclassified (2 sources) Family history of malignant neoplasm of gastrointestinal tract; Translations: [Family history of malignant neoplasm of digestive organs] Onset: 05-07-2012 08-06-2021 Episodic Results Test Name Value Interpretation Reference Range Facil ity Encounters Encounter Date Encounter Type Care Provider Facility Start: 05-28-2023 End: 05-28-2023 ambulatory [facility] Facility:[facility] Start: 10-08-2022 Telephone encounter Neurology Provid er Neurology Procedures Date Procedure Procedure Detail Performing Clinician Start: 05-13-2012 Colonoscopy Luis woodruff Jr., MD Work Phone: Plan of Treatment Date Care Activity Detail Author Start: 08-11-2022 ADVANCE DIRECTIVE DISCUSSION ADVANCE DIRECTIVE DISCUSSION [facility] Start: 08-11-2022 DEPRESSION ASSESSMENT DEPRESSION ASS ESSMENT [facility] Start: 04-11-2022 Influenza vaccination INFLUENZA (#1) [facility] Start: 2017 BONE DENSITY BONE DENSITY [facility] Start: 2017 PNEUMOCOCCAL: 65+ (1 - PCV) PNEUMOCOCCAL: 65+ (1 - PCV) [facility] Start: 05-13-2017 Colonoscopy COLONOSCOPY [facility] Start: 05-13-2017 COLORECTAL CANCER SCREENING COLORECTAL CANCER SCREENING [facility] Start: 01-21-2003 DIABETES SCREEN DIABETES SCREEN [place] Start: 2002 SHINGRIX VACCINE (1 of 2) SHINGRIX V ACCINE (1 of 2) [facility] Start: 1997 COLOGUARD (FIT-DNA) COLOGUARD (FIT-D NA) [facility] Start: [address] COLONOGRAPHY [place] Start: 1997 FECAL OCCULT BLOOD FECAL OCCULT BLOO D [facility] Start: 1997 LIPID SCREEN LIPID SCREEN [facility] Start: 1997 SIGMOIDOSCOPY SIGMOIDOSCOPY [facility] Start: 1992 Mammography MAMMOGRAM [facility] Start: 12-05-1971 Urine microalbumin profile DTAP,TDAP ,TD (1 - Tdap) [facility] Start: 1970 HEPATITIS C SCREENING HEPATITIS C SC BONNING [facility] Start: 06[birth year]05-1951 COVID-19 VACCINE (#1) COVID-19 VACCI NE (#1) [facility] Payers Date Payer Category Payer Medicare [id number] 2018 Unknown [id number] 2017 Unknown [id number] 1950 Unknown [id number] Social History Date Type Detail Facility Start: 05-07-2012 Tobacco smoking stat us [facility] Never smoked tobacco [facility] Work Phone: Start: 05-07-2012 Tobacco use and exposure Smokeless tobacco non-user [facility] Work Phone: Start: 05-14-2012 Alcohol intake Current drinke r of alcohol (finding) [facility] Start: 05-07-[address] [facility] Start: 1950 Sex Assigned At Not on file [facility] Note 10-08-2022 Telephone Encounter - Shawnee Trotter - 10/08/2022 5:11 PM EST Note Date & Type Note Facility 10-08-2022 Miscellaneous Notes Formattin g of this note might be different from the original. Spoke with the patient and scheduled her an appointment for Sleep Apnea. Medical records were sent to [facility]. Mailed the patient an appointment reminder and a [employer] information. documented in this encounter [facility] Note 10-07-2022 Telephone Encounter - Patricia Krueger MA - 10/07/2022 4:09 PM EST Note Date & Type Note Facility 10-07-2022 Miscellaneous Notes Formattin g of this note might be different from the original. Received fax referral from [facility] ([facility]) [facility] CNP for sleep medicine. DX: Primary central sleep apnea (G47.31) Comment: sleep apnea, concern for narcolepsy. Will forward to Amy. Patricia Krueger MA documented in this encounter [facility] Summary Purpose Family History No Family History Records FoundNo Family History Records Found Advance Directives No Advanced Directives Records FoundNo Advanced Directives Records Found Additional Source Comments Source Comments (unrecognize d section and content) In the event this informatio n is protected by the Federal Confidentiality of Alcohol and Drug Abuse Patient Records regulations: The Federal rules restrict any use of the information to criminally investigate or prosecute any alcohol or drug abuse patient.[facility] the event this information is protected by the Federal Confidentiality of Alcohol and Drug Abuse Patient Records regulations: The Federal rules restrict any use of the information to criminally investigate or prosecute any alcohol or drug abuse patient.[facility] Reason for Visit (unrecogniz ed section and content) Reason Comments Referral Request INFORMATION SOURCE (unrecogn ized section and content) DATE CREATED AUTHOR AUTHOR'S GUERO JUAREZ 05/30/2023 [facility] FOR RECORDS PERTAINING TO PATIENTS WHO ARE OR HAVE BEEN ENROLLED IN A CHEMICAL DEPENDENCY/SUBSTANCEABUSE PROGRAM, SOME INFORMATION MAY BE OMITTED. This clinical summary was aggregated from multiple sources. Caution should be exercised in using it in the provision of clinical care. This summary normalizes information from multiple sources, and as a consequence, information in this document may materially change the coding, format and clinical context of patient data. In addition, data may be omitted in some cases. CLINICAL DECISIONS SHOULD BE BASED ON THE PRIMARY CLINICAL RECORDS. [employer] provides no warranty or guarantee of the accuracy or completeness of information in this document.
--- NOTE | 2023-08-26 13:20 | RAD_ITS ---
STUDY: X-RAY - CERVICAL SPINE REASON FOR EXAM: Female, 72 years old. Spondylosis without myelopathy or radiculopathy, cervical region TECHNIQUE: 5 view(s) of the cervical spine were obtained including oblique views. COMPARISON: None FINDINGS: Normal anterior atlantoaxial articulation. Normal odontoid process. There is straightening of the normal cervical lordosis. Normal vertebral bodies and endplates. Normal disc space heights. Normal visualized intervertebral neuroforamina. The soft tissue structures are unremarkable. RAD/Cerv Spine 4 or 5 Views IMPRESSION: Straightening of the normal cervical lordosis. Electronically Signed: Billy Kaplan MD at 15:24 EST ,
== END | disposition home or self-care (01) ==
LOC: LAB 13:16 → RAD 13:18
PROVIDERS: PCP Internal Medicine; Referring Provider Anesthesiology Pain Medicine; Visit Provider Anesthesiology Pain Medicine
DX: M47.812 Spondylosis without myelopathy or radiculopathy, cervical region (principal)
CPT/HCPCS: 72050

== ENCOUNTER → 2023-09-02 | Outpatient (CLI) | payer MEDICARE, OTHER, SELFPAY ==
--- OUTSIDE RECORDS SUMMARY | 2023-09-02 16:27 | XMS RPT_ITS | CCD ---
Author Name Unknown Address [facility] [place] [address] Organization [facility] Care Team Providers Care Watermelon Harvesting Supervisor Name Role Phone Unavailable Primary Care Provider Unavailabl e [facility], [facility] Referring Unavailable GISSELLE INGRAM Attending Unavailable Allergies Allergy Classification Reported Allergen(s) Allergy Type Date of Onset Reaction(s) Facility (2 sources) Ketorolac Drug Allergy 03-30-2007 Hives [facility] Work Phone: (2 sources) Phenytoin Drug Allergy 07-21-2006 Rash [facility] Work Phone: Medications Completed/Discontinued Medications Medication Drug [...] Provider Facility Start: 05-28-2023 End: 05-28-2023 ambulatory [facility] PCP Facility:[facility] Start: 10-08-2022 Telephone encounter Neurology Provid er Neurology Procedures Date Procedure Procedure Detail Performing Clinician Start: 05-13-2012 Colonoscopy Luis woodruff Jr., MD Work Phone: Plan of Treatment Date Care Activity Detail Author Start: 08-11-2022 ADVANCE DIRECTIVE DISCUSSION ADVANCE DIRECTIVE DISCUSSION [facility] Start: 08-11-2022 DEPRESSION ASSESSMENT DEPRESSION ASS ESSMENT [facility] Start: 04-11-2022 Influenza vaccination INFLUENZA (#1) [facility] Start: 2017 BONE DENSITY BONE DENSITY [facility] Start: 2017 PNEUMOCOCCAL: 65+ (1 - PCV) PNEUMOCOCCAL: 65+ (1 - PCV) [facility] Start: 05-13-2017 Colonoscopy COLONOSCOPY [facility] Start: 05-13-2017 COLORECTAL CANCER SCREENING COLORECTAL CANCER SCREENING [facility] Start: 01-21-2003 DIABETES SCREEN DIABETES SCREEN [facility] Start: 2002 SHINGRIX VACCINE (1 of 2) SHINGRIX V ACCINE (1 of 2) [facility] Start: 1997 COLOGUARD (FIT-DNA) COLOGUARD (FIT-D NA) [facility] Start: [address] COLONOGRAPHY [facility] Start: 1997 FECAL OCCULT BLOOD FECAL OCCULT BLOO D [facility] Start: 1997 LIPID SCREEN LIPID SCREEN [facility] Start: 1997 SIGMOIDOSCOPY SIGMOIDOSCOPY [facility] Start: 1992 Mammography MAMMOGRAM [facility] Start: 12-05-1971 Urine microalbumin profile DTAP,TDAP ,TD (1 - Tdap) [facility] Start: 1970 HEPATITIS C SCREENING HEPATITIS C SC BONNING [facility] Start: 06-05-1951 COVID-19 VACCINE (#1) COVID-19 VACCI NE (#1) [facility] Payers Date Payer Category Payer Medicare [id number] 2018 Unknown [id number] 2017 Unknown [id number] 1950 Unknown [id number] Social History Date Type Detail Facility Start: 05-07-2012 Tobacco smoking stat us [place] Never smoked tobacco [facility] Work Phone: Start: 05-07-2012 Tobacco use and exposure Smokeless tobacco non-user [facility] Work Phone: Start: 05-14-2012 Alcohol intake Current drinke r of alcohol (finding) [facility] Start: 05-07-[address] [facility] Start: 1950 Sex Assigned At Not on file [facility] Note 10-08-2022 Telephone Encounter - Shawnee Trotter - 10/08/2022 5:11 PM EST Note Date & Type Note Facility 10-08-2022 Miscellaneous Notes Formattin g of this note might be different from the original. Spoke with the patient and scheduled her an appointment for Sleep Apnea. Medical records were sent to [facility]. Mailed the patient an appointment reminder and a Eyev[employer] information. documented in this encounter [facility] Note 10-07-2022 Telephone Encounter - Patricia Krueger MA - 10/07/2022 4:09 PM EST Note Date & Type Note Facility 10-07-2022 Miscellaneous Notes Formattin g of this note might be different from the original. Received fax referral from [facility] ([facility]) [facility] C[facility] for sleep medicine. DX: Primary central sleep apnea (G47.31) Comment: sleep apnea, concern for narcolepsy. Will forward to Amy. Patricia Krueger MA documented in this encounter [facility] Summary Purpose Family History No Family History [...] or prosecute any alcohol or drug abuse patient.[facility] the event this information is protected by the Federal Confidentiality of Alcohol and Drug Abuse Patient Records regulations: The Federal rules restrict any use of the information to criminally investigate or prosecute any alcohol or drug abuse patient.[facility] Reason for Visit (unrecogniz ed section and content) Reason Comments Referral Request INFORMATION SOURCE (unrecogn ized section and content) DATE CREATED AUTHOR AUTHOR'S GUERO JUAREZ 05/30/2023 [facility] FOR RECORDS PERTAINING TO PATIENTS WHO [...] BE BASED ON THE PRIMARY CLINICAL RECORDS. [employer] provides no warranty or guarantee of the accuracy or completeness of information in this document.
[2023-09-02 17:04] LABS: Hemoglobin A1c 4.9 % (3.8-5.6)
[2023-09-02 17:13] LABS: ALB/GLOB Ratio 1.2 RATIO (0.9-2.4); AST(SGOT) 15 U/L (15-37); Alanine Aminotransfer ALT/SGPT 17 U/L (13-56); Albumin, Serum 3.7 g/dL (3.2-5.0); Alkaline Phosphatase 82 U/L (45-117); Anion Gap 4 (5-15); BUN 16 mg/dL (7-18); BUN/Creat Ratio 21.9 RATIO (10-20); Calcium,Total 9.4 mg/dL (8.5-10.1); Chloride 109 mmol/L (98-107); Cholesterol 178 mg/dL (200); Creatinine, Serum 0.73 mg/dL (0.55-1.02); EST Glomerular Filtration Rate 84 mL/min (>60); Est Glom Filt Rate - Afr Amer 101 mL/min (>60); Free T3 2.4 pg/mL (2.18-3.98); Globulin 3.2 g/dL (2.2-4.2); Glucose 95 mg/dL (74-106); High Density Lipoprotein 55 mg/dL; Potassium 3.8 mmol/L (3.5-5.1); Protein, Total 6.9 g/dL (6.4-8.2); Sodium Level 139 mmol/L (136-145); T4 Free Direct 0.87 ng/dL (0.76-1.46); Thyroid Stim Hormone (TSH) 2.16 uIU/mL (0.358-3.74); Triglycerides 168 mg/dL; Very Low Density Lipoprotein 34 mg/dL (5-40)
== END | disposition home or self-care (01) ==
LOC: LAB 16:10
PROVIDERS: PCP Internal Medicine; Referring Provider Internal Medicine Endocrinology, Diabetes & Metabolism; Visit Provider Internal Medicine Endocrinology, Diabetes & Metabolism
DX: E03.9 Hypothyroidism, unspecified (principal); R73.03 Prediabetes
CPT/HCPCS: 36415; 80053; 80061; 83036; 84439; 84443; 84481

== ENCOUNTER → 2023-10-14 | Outpatient (CLI) | payer MEDICARE, OTHER, SELFPAY ==
[2023-10-14 11:06] LABS: Absolute Lymphocyte Count 3.34 X10^3/uL (0.83-4.51); Absolute Neutrophil Count 2.9 X10^3/uL (2.0-7.7); Basophil# 0.04 X10^3/uL; Basophil% 0.6 % (0-1); Eosinophil# 0.29 X10^3/uL; Eosinophils% 4.1 % (0-5); Hematocrit 34.2 % (37-47); Hemoglobin 10.7 g/dL (12.0-15.0); Lymphocyte # 3.34 X10^3/ul (0.83-4.51); Lymphocyte % 46.8 % (19-41); Mean Corp Hgb Conc 31.3 g/dL (32-36); Mean Corpuscular Hgb 30.9 pg (27.0-32.0); Mean Corpuscular Volume 98.8 fL (81-99); Mean Platelet Vol. 9.3 fl (6.2-12.0); NRBC Flagged by Analyzer 0 % (0-5); Neutrophil # 2.93 X10^3/uL (2.7-7.7); Neutrophil % 41.1 % (47-70); Platelet Count 336 K/mm3 (150-450); RBC Distribution Width CV 13.2 % (11.6-14.6); RBC Distribution Width SD 47.5 fl (35.1-43.9); Red Blood Count 3.46 M/mm3 (4.2-5.4); White Blood Count 7.1 K/mm3 (4.4-11.0)
[2023-10-14 11:31] LABS: ALB/GLOB Ratio 1.4 RATIO (0.9-2.4); AST(SGOT) 18 U/L (15-37); Alanine Aminotransfer ALT/SGPT 17 U/L (13-56); Albumin, Serum 3.7 g/dL (3.2-5.0); Alkaline Phosphatase 82 U/L (45-117); Anion Gap 7 (5-15); BUN 23 mg/dL (7-18); BUN/Creat Ratio 27.1 RATIO (10-20); Calcium,Total 8.9 mg/dL (8.5-10.1); Chloride 110 mmol/L (98-107); Creatinine, Serum 0.85 mg/dL (0.55-1.02); EST Glomerular Filtration Rate 70 mL/min (>60); Est Glom Filt Rate - Afr Amer 85 mL/min (>60); Globulin 2.7 g/dL (2.2-4.2); Glucose 111 mg/dL (74-106); Potassium 3.6 mmol/L (3.5-5.1); Protein, Total 6.4 g/dL (6.4-8.2); Sodium Level 144 mmol/L (136-145)
== END | disposition home or self-care (01) ==
LOC: LAB 10:22
PROVIDERS: PCP Internal Medicine; Referring Provider Internal Medicine Rheumatology; Visit Provider Internal Medicine Rheumatology
DX: M06.4 Inflammatory polyarthropathy (principal); E27.9 Disorder of adrenal gland, unspecified; M79.7 Fibromyalgia; M17.0 Bilateral primary osteoarthritis of knee; M16.0 Bilateral primary osteoarthritis of hip; D47.2 Monoclonal gammopathy; E03.9 Hypothyroidism, unspecified; H81.03 Meniere's disease, bilateral; M51.37 Other intervertebral disc degeneration, lumbosacral region; M47.897 Other spondylosis, lumbosacral region; K76.0 Fatty (change of) liver, not elsewhere classified; Z79.899 Other long term (current) drug therapy
CPT/HCPCS: 36415; 80053; 85025

== ENCOUNTER → 2023-11-04 | Outpatient (CLI) | payer MEDICARE, OTHER, SELFPAY ==
--- NOTE | 2023-11-04 15:37 | BI_ITS ---
MAMMOGRAPHY - BILATERAL SCREENING REASON FOR EXAM: Female, 72 years old. Routine annual screening examination. PERTINENT HISTORY: Sister with breast cancer. Grandmother with breast cancer. Aunt with breast cancer. TECHNIQUE: Digital bilateral breast gael (3D mammographic acquisition) in the CC and MLO projections. 2-D mediolateral oblique (MLO) and craniocaudad (CC) views of both breasts were obtained. CAD: Full Field Digital Mammography with Computer Added Detection was performed. COMPARISON: Comparison is made with prior study dated September 10, 2022 and May 18, 2021. FINDINGS: Breast Composition: The breasts are almost entirely fatty. There are no dominant masses or suspicious calcifications. Stable benign appearing left axillary lymph nodes. No other significant abnormalities are identified. There has been no significant change since the prior study. BI/SCRN MAMM (CAD)W/GAEL BILAT IMPRESSION: Stable bilateral screening mammogram. Yearly follow-up mammogram recommended. (A) ASSESSMENT CATEGORY: BIRADS Category 2: Benign. A letter regarding these results will be sent to the patient by the facility within 30 days. Approximately 10% of breast cancers are not detected by mammography. A normal mammogram should not delay biopsy of a clinically suspicious abnormality. [id number] Electronically Signed: Billy Kaplan MD at 9:27 EDT ,
--- NOTE | 2023-11-04 15:37 | BD_ITS ---
STUDY: DUAL ENERGY X-RAY ABSORPTIOMETRY / DXA REASON FOR EXAM: Female, 72 years old. Osteopenia TECHNIQUE: Bone Mineral Density (BMD) measurements of lumbar spine and bilateral hips were obtained. COMPARISON: Comparison is made with prior study dated October 17, 2020. FINDINGS: Lumbar Spine (L1-L4): g/cm2 (0.924) / T-score (-0.8) / Z-score (1.3) Findings are suggestive of normal bone density with a low fracture risk. Left Femur Total: g/cm2 (0.920) / T-score (-0.2) / Z-score (1.4) Left Femoral Neck: g/cm2 (0.662) / T-score (-1.7) / Z-score (0.2) Right Femur Total: g/cm2 (0.847) / T-score (-0.8) / Z-score (0.8) Right Femoral Neck: g/cm2 (0.634) / T-score (-1.9) / Z-score (-0.1) The T-Scores on the most recent prior examination were: Lumbar Spine (L1-L4): There has been worsening of bone density since the previous examination. Left Femur Total: which represents a worsening of 1.1%. Right Femur Total: which represents a worsening of 5.7%. BD/Dexa Bone Density Study IMPRESSION: The patient is considered osteopenic as outlined below according to World Roosevelt Organization (WHO) criteria with a moderate fracture risk. There has been worsening of bone density since the previous examination. Reference Information: The T-score is the number of standard deviations above or below the standard which is normal for young adults at their peak bone mineral density. The World Health Organization (WHO) interprets the T-scores as follows: Above -1 Normal bone density Between -1 and -2.5 Osteopenia Equal to / or below -2.5 Osteoporosis As a practical clinical guideline, osteopenia may be graded as follows: Mild -1 through -1.5 Moderate -1.6 through -2.0 Severe -2.1 through -2.4 The Z-score is the number of standard deviations above or below age-matched controls. A Z-score of less than -1.5 would be considered abnormal. References: 1. NIH Osteoporosis and Related Bone Diseases www osteo.org 2. International Society for Clinical Densitometry www iscd.org 3. National Osteoporosis Foundation www nof.org Electronically Signed: Billy Kaplan MD at 9:34 EDT ,
== END | disposition home or self-care (01) ==
LOC: OPBD 15:35
PROVIDERS: PCP Internal Medicine; Referring Provider Internal Medicine; Visit Provider Internal Medicine
DX: Z12.31 Encounter for screening mammogram for malignant neoplasm of breast (principal); Z80.3 Family history of malignant neoplasm of breast; M85.80 Other specified disorders of bone density and structure, unspecified site; Z78.0 Asymptomatic menopausal state
CPT/HCPCS: 77063; 77067; 77080

== ENCOUNTER → 2023-11-25 | Outpatient (CLI) | payer MEDICARE, OTHER, SELFPAY ==
--- NOTE | 2023-11-25 16:21 | RAD_ITS ---
STUDY: X-RAY - UNILATERAL RIBS ( LEFT ) WITH CHEST REASON FOR EXAM: Female, 72 years old. trauma to sternum s/p fall TECHNIQUE - RIBS: 4 view(s) of the ribs. TECHNIQUE - CHEST: PA COMPARISON: None. FINDINGS - RIBS: Normal visualized ribs without a demonstrated fracture. FINDINGS - CHEST: There is less than optimal inspiratory effort and minor discoid atelectasis in left lower lobe There is no demonstrated pleural abnormality. Heart is enlarged. Normal mediastinum and alicja. Normal visualized pulmonary arteries. Calcified aortic arch and descending thoracic aorta. Normal visualized thoracic spine. Normal visualized ribs, clavicles, and shoulders. There is no demonstrated abnormality of the visualized soft tissue structures of the upper abdomen. RAD/Ribs Uni Min 3V w/PA Chest IMPRESSION: RIBS: Normal x-ray examination of the ribs. CHEST: Diminished inspiratory effort and minor discoid atelectasis left lower lobe. Electronically Signed: Wu Bates MD at 17:07 EDT ,
--- NOTE | 2023-11-25 16:21 | RAD_ITS ---
STUDY: X-RAY - RIGHT HAND REASON FOR EXAM: Female, 72 years old. fall TECHNIQUE: 2 view(s) of the hand. COMPARISON: None. FINDINGS: Normal radiocarpal articulation. Normal distal radioulnar joint. Normal visualized carpal bones. Normal carpal articulations Degenerative changes of the carpometacarpal articulation of the thumb. Normal second through fifth carpometacarpal joints. Normal metacarpi. Degenerative changes of the metacarpophalangeal joint of the thumb. Degenerative changes of the interphalangeal joint of the thumb. Normal proximal and distal phalanges of the thumb. Normal metacarpophalangeal joints of the second through fifth fingers. Normal proximal and degenerative changes of the distal interphalangeal joints of the second through fifth fingers. Normal phalanges of the second through fifth fingers. Diffuse soft tissue swelling. RAD/Hand 2 Views IMPRESSION: Degenerative changes. No evidence for acute fracture or dislocation Electronically Signed: Wu Bates MD at 17:04 EDT ,
--- NOTE | 2023-11-25 16:21 | RAD_ITS ---
STUDY: X-RAY - LEFT KNEE REASON FOR EXAM: Female, 72 years old. fall TECHNIQUE: 3 view(s) of the knee. COMPARISON: None. FINDINGS: Knee prosthesis is noted in anatomic alignment and position. No evidence for acute fracture or definitive evidence for loosening. RAD/Knee 3 Views IMPRESSION: Stable appearance to knee prosthesis. Electronically Signed: Wu Bates MD at 17:09 EDT ,
== END | disposition home or self-care (01) ==
LOC: MTRAD 16:21
PROVIDERS: PCP Internal Medicine; Referring Provider Physician Assistant; Visit Provider Physician Assistant
DX: R07.89 Other chest pain (principal); W19.XXXA Unspecified fall, initial encounter
CPT/HCPCS: 71101; 73120; 73562

== ENCOUNTER 2023-11-27 11:18 | Emergency (ER) | payer MEDICARE, OTHER, SELFPAY ==
[2023-11-27 11:19] VITALS: BP 147/79; PULSE 87; RESP 16; TEMP 36.7; O2SAT 97
[2023-11-27 11:24] VITALS: O2SAT 97
--- NOTE | 2023-11-27 11:49 | RAD_ITS ---
STUDY: X-RAY - LEFT FOOT CLINICAL: Female, 72 years old. Pain following a fall. TECHNIQUE: 3 view(s) of the foot. COMPARISON: None. FINDINGS: There is an enthesophyte involving the posterior superior calcaneus at the site of insertion of the Achilles tendon. Small plantar spur. Normal visualized subtalar, talonavicular, calcaneocuboid, tarsal and tarsometatarsal articulations. Normal metatarsi. There is degenerative arthrosis of the metatarsophalangeal joint of the hallux . Normal tibial and fibular sesamoid bones. Normal interphalangeal joint of the great toe. Normal phalanges of the great toe. Normal second through fifth metatarsophalangeal joints. Normal interphalangeal joints and phalanges of the lesser toes. The soft tissue structures are unremarkable. RAD/Foot min 3 Views IMPRESSION: Degenerative changes. No fracture is seen. Calcaneal spurs. Electronically Signed: Billy Kaplan MD at 13:13 EDT ,
--- NOTE | 2023-11-27 11:49 | CT_ITS ---
STUDY: CT CHEST WITHOUT CONTRAST REASON FOR EXAM: Female, 72 years old. Sternum fracture RADIATION DOSAGE (If Supplied By Facility): CTDIvol = ( 19.20 ) mGy, DLP = ( 825.17 ) mGycm TECHNIQUE: Transaxial imaging was performed without the administration of intravenous contrast material. Multiplanar coronal and sagittal images were reformatted. Individualized dose optimization techniques were used for this CT. COMPARISON: No relevant priors. FINDINGS: CHEST Small benign-appearing bilateral axillary lymph nodes. Minimal linear scarring in the superior aspect of the left lower lobe. There is no demonstrated pleural abnormality. There are calcifications of the coronary arteries. Normal mediastinum. Normal hilar regions. Normal unenhanced pulmonary arteries. There is atherosclerotic calcification of the aortic arch. No sternal fracture is seen. There is evidence of a 8.8 mm cystic density in the manubrium just to the left side of the midline. Degenerative changes of the visualized dorsal spine. The patient is status post cholecystectomy. CT/Chest without Contrast IMPRESSION: No sternal fracture is seen although there is evidence of a 8.8 mm cystic density in the manubrium on the left side of the midline. Electronically Signed: Billy Kaplan MD at 13:11 EDT ,
--- NOTE | 2023-11-27 13:52 | EX.ED.GENINJ ---
HPI History of Present Illness Chief Complaint: Fall Informant: patient and family Narrative Narrative: 72-year-old female presenting to the emergency room with chest pain. Patient states she fell 2 nights ago striking her chest. She states she was seen at the [facility] diagnosed with a broken finger and placed in a splint. She states she had rib x-rays was concerned about the reading that she saw online. She states it said that she had atelectasis and something else and that no doctors will tell her what it means. She states that she hates [facility]. Her primary care doctor is [facility]. She states she was post to see pain management this morning but could not she states that she supposed to see orthopedics but was unable to. States her chest hurts anytime she goes to move. Her son who is a nurse states that she has adrenal insufficiency and wonders if she is having adrenal crisis because this is how she acts. She denies any infectious symptoms. Patient notes pain in her left foot. She states she sees bruising wonders about the fifth metatarsal. When I tell her it is not she seems relieved. It is unclear exactly where she is seeing the bruising at but I believe she is talking about her second and third toes. She has strapped sandals on so it does not hurt her foot when she puts it on like it does shoes. Patient has taken a [place] each of the past 2 nights that she gets from pain management for vacations. She has not taken any today. [facility] Medical History Abnormal bowel movement Abnormal laboratory test Abrasion, left knee, initial encounter Acute bronchitis Adenomatous polyps Adrenal insufficiency Airway polyps Anemia Anxiety and depression Arthritis Asthma Back pain Basal cell carcinoma Bilateral lower extremity edema Blood disorder BMI greater than 40 Borderline type 2 diabetes mellitus Breast cancer screening Bronchitis Cancer Cardiology follow-up encounter Cellulitis of right lower leg Chest wall contusion Chronic neck and back pain Chronic pain Constipation Contusion of left knee Contusion of right middle finger COVID-19 virus detected (05/09/20) CPAP (continuous positive airway pressure) dependence CSA (central sleep apnea) Depression Dermatitis Difficulty balancing Difficulty balancing when standing Difficulty swallowing Dyspnea Essential (primary) hypertension Fatigue Fatty liver disease, nonalcoholic FH: colon cancer in first degree relative <60 years old Flu vaccine need Fracture of proximal phalanx of right middle finger Gastric reflux GERD (gastroesophageal reflux disease) [place] Health care maintenance History of colon polyps History of echocardiogram History of edema History of stress test Hypersomnia Hypertension Hypokalemia Hypopituitarism Hypothyroidism Incontinence Injury of head and neck Limb weakness Low magnesium level Lung disease Macromastia Malaise and fatigue Meniere disease MGUS (monoclonal gammopathy of unknown significance) Migraines Muscular abdominal pain in right flank Non-smoker Obesity Obesity Osteoarthritis Osteopenia Otitis media Pneumonia Radiculopathy Restless legs Rheumatoid arthritis Rheumatoid arthritis Screening for diabetes mellitus Shoulder pain Sinusitis Sjogren's disease SOB (shortness of breath) Sternum pain Strain of right middle finger Thyroid disease Type 1 diabetes mellitus Unsteady gait URI, acute Vitamin D deficiency Wears glasses Home Medications folic acid 0.8 mg capsule 0.8 mg PO BID supplement 07/14/18 [History Last Taken 01/12/20] hydroxychloroquine 200 mg tablet (Plaquenil) 200 mg PO BID ra 09/01/18 [History Last Taken 10/24/21 09:00] cyclobenzaprine 10 mg tablet 10 mg PO QHS 12/22/19 [History Last Taken 01/12/20] ascorbate calcium (vitamin C) 500 mg tablet 500 mg PO DAILY 04/08/20 [History Last Taken Unknown] zinc 50 mg tablet 50 mg PO DAILY 04/08/20 [History Last Taken Unknown] Handicap Placard #1 ea 09/11/20 [Rx Last Taken Unknown] thyroid (pork) 15 mg tablet ([place] Thyroid) 15 mg PO DAILY 09/11/20 [History Last Taken 10/24/21 09:00] methotrexate sodium 25 mg/mL injection solution 25 mg subcut QWEEK 09/25/20 [History Last Taken Unknown] triamcinolone acetonide 0.025 % topical ointment 1 applic topical DAILY PRN rash #454 grams 05/07/21 [Rx Last Taken Unknown] fluticasone propionate 110 mcg/actuation HFA aerosol inhaler (Flovent HFA) 1 puff inhalation BID 06/12/21 [History Last Taken 10/24/21 09:00] magnesium oxide 500 mg capsule 500 mg PO DAILY 09/11/21 [History Last Taken Unknown] prednisone 5 mg tablet 5 mg PO DAILY #14 tabs 02/01/22 [Rx Last Taken Unknown] montelukast 10 mg tablet 10 mg PO QPM #90 tabs 03/25/22 [Rx Last Taken Unknown] ursodiol 300 mg capsule 300 mg PO BID #180 caps 10/07/22 [Rx Last Taken Unknown] vitamin E (dl, acetate) 180 mg (400 unit) capsule See Rx Instructions PO DAILY #90 caps 10/07/22 [Rx Last Taken Unknown] Handicap Placard #1 ea 11/22/22 [Rx Last Taken Unknown] hydrocodone-acetaminophen 5-325mg 5mg-325mg 1 tab PO 11/22/22 [History Last Taken Unknown] cholecalciferol (vitamin D3) 1,250 mcg (50,000 unit) capsule 1,250 mcg PO .EVERY OTHER WEEK 03/05/23 [History Last Taken Unknown] ipratropium 0.5 mg-albuterol 3 mg (2.5 mg base)/3 mL nebulization soln 3 ml inhalation Q4H PRN PRN SOB &/OR WHEEZING #180 mL 05/20/23 [Rx Last Taken Unknown] celecoxib 200 mg capsule 200 mg PO DAILY 07/22/23 [History Last Taken Unknown] potassium chloride 10 mEq capsule,extended release 20 meq PO BID 07/22/23 [History Last Taken Unknown] pantoprazole 40 mg tablet,delayed release 40 mg PO BID #180 tabs 08/13/23 [Rx Last Taken Unknown] bupropion HCl 150 mg 24 hr tablet, extended release 150 mg PO QAM #90 tabs 08/14/23 [Rx Last Taken Unknown] ferrous sulfate 325 mg (65 mg iron) tablet 325 mg PO Q OTHER DAY #90 tabs 09/10/23 [Rx Last Taken Unknown] sulfasalazine 500 mg tablet,delayed release 1 g (2 x 500 mg) PO BID 30 days #120 tabs 09/11/23 [Rx Last Taken Unknown] amiloride 5 mg-hydrochlorothiazide 50 mg tablet 0.5 tab PO DAILY #90 tabs 09/24/23 [Rx Last Taken Unknown] Allergy/AdvReac Type Severity Reaction Status Date / Time milk Allergy Mild Diarrhea Verified 11/25/23 16:09 phenytoin sodium Allergy Mild Rash Verified 11/25/23 16:09 [From Dilantin] phenytoin sodium extended Allergy Mild Rash Verified 11/25/23 16:09 [From Dilantin] ketorolac tromethamine Allergy Anaphylaxis Verified 11/27/23 11:26 [From Toradol] melon Allergy NEEDS Verified 11/25/23 16:09 FOLLOW-UP morphine AdvReac Severe Other Verified 11/25/23 16:09 Family History Father Cancer father passed of lung CA at 55 Mother Dementia Osteoarthritis COPD (chronic obstructive pulmonary disease) Brother Myocardial infarction, Onset Age: 49 Aunt Multiple sclerosis Sister Colon cancer Breast cancer Aunt Celiac disease Surgical History H/O dilation and curettage History of 2 sections History of carpal tunnel release History of carpal tunnel surgery History of cataract surgery History of cholecystectomy History of hysterectomy History of left heart catheterization (01/14/20) History of orthopedic surgery History of tonsillectomy and adenoidectomy Hx of colonoscopy Hx of oral surgery S/P bunionectomy S/P excision of Molina's neuroma S/P knee surgery Status post total right knee replacement Social History Smoking Status: Never smoker alcohol intake: current alcohol intake frequency: a few times a month Alcohol type: wine substance use type: does not use what type of physical activity do you participate in: walking, bicycling and swimming frequency: 3-4 times per week 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 ROS ROS ED Constitutional Constitutional ED: Denies chills, fever(s) or weight loss Eyes Eyes: Denies change in vision or diplopia ENT ENT ED: Denies ear pain, rhinorrhea or sore throat Cardiovascular Cardiovascular: Reports chest pain; Denies orthopnea, palpitations or racing heartbeat Respiratory/Chest Respiratory/Chest: Denies cough, dyspnea or orthopnea Gastrointestinal Gastrointestinal: Denies abdominal pain, diarrhea, nausea or vomiting Genitourinary Genitourinary ED: Denies dysuria, hematuria or urinary frequency Musculoskeletal Musculoskeletal: Reports other Details: Left foot pain right finger pain ; Denies arthralgias or myalgias Integumentary Denies abscess or rash Neurologic Neurologic: Denies headache(s) or weakness Psychiatric Psychiatric: Reports anxiety; Denies depression, suicidal ideation or suicidal thoughts Endocrine Endocrinology: Denies polydipsia, polyphagia or polyuria Allergic/Immunologic Allergic/Immunologic ED: Denies mouth swelling, tongue swelling or urticaria EXAM Physical Exam Const Vital Signs: 11/27/23 11:19 11/27/23 11:24 11/27/23 13:55 Temperature 98.1 F Temperature Source Temporal Pulse Rate 87 78 Respiratory Rate 16 16 Respiratory Effort Normal Non-Labored Respiratory Depth Normal Respiratory Pattern Normal Blood Pressure 147/79 H 126/78 H Blood Pressure Mean 101 94 Pulse Ox 97 97 98 Oxygen Delivery Method Room Air Room Air Room Air Positive well nourished, well developed and obese General Appearance ED: well developed Nutritional Appearance: obese HEENT Reports normocephalic, head/scalp atraumatic and moist mucous membranes Eyes PERRL and EOMs intact bilaterally Neck full ROM, no lymphadenopathy, supple and no JVD Neck Narrative: Painful range of motion of her neck grabbing her chest states it hurts to turn to the right. Chest Wall Chest Narrative: Anterior chest wall with tender but I do not appreciate any bruising or swelling Resp normal respiratory effort and clear to auscultation bilaterally Cardio regular rate, regular rhythm and no murmurs GI normal to inspection, nondistended, normoactive bowel sounds and non-tender Palpation: soft Back/Spine no CVA tenderness and normal ROM Extremity Extremity Narrative: Right second and third fingers are in a splint aluminum foam with Sean wrap. Left foot second and third toes tender to palpation down onto the distal metatarsal MTP joint region General Extremety ED: Negative for edema General Extremity: Negative for edema Neuro oriented x3 and CN's II-XII intact bilaterally Sensorium / Orientation: alert Motor Exam: strength 5/5 throughout Psych mental status grossly normal Mood & Affect: anxious; Negative for depressed or tearful Skin no rashes or lesions noted and no wounds MDM MDM MDM Narrative Medical decision making narrative: CT of the chest does not demonstrate any obvious rib fracture or sternal fracture pneumothorax pulmonary contusion. Clinically I think the chest wall is contused given its significant tenderness. My independent interpretation of the left foot is no acute fracture. 42 point given recent dental work and the family's notes that they are concerned this could be adrenal insufficiency went ahead and hydrated her and gave her a dose of hydrocortisone. Hemoglobin 11.6 white count of 7.9. LFTs are normal glucose 98 potassium 3.4. She is on some hydrochlorothiazide. I do not think we necessarily need to patient write a note to the place that he is already patient was instructed to increase potassium in her diet she can have this rechecked as an outpatient. History & Record Review Discussion w/independent historian: Patient and Family Lab Data Attestation: I reviewed the patient's lab results. Labs: Laboratory Results - last 24 hr 11/27/23 14:20 WBC 7.9 RBC 3.58 L Hgb 11.6 L Hct 35.6 L MCV 99.4 H MCH 32.4 H MCHC 32.6 RDW Std Deviation 48.2 H RDW Coeff of [place] 13.2 Plt Count 310 MPV 9.6 Immature Gran % (Auto) 0.400 Neut % (Auto) 44.9 L Lymph % (Auto) 45.5 [place] % (Auto) 6.3 Eos % (Auto) 2.5 Baso % (Auto) 0.4 Absolute Neuts (auto) 3.6 Absolute Lymphs (auto) 3.60 Nucleated RBC % 0 Sodium 141 Potassium 3.4 L Chloride 109 H Carbon Dioxide 27.0 Anion Gap 5 BUN 21 H Creatinine 0.76 Est GFR (MDRD) Af Amer 96 Est GFR (MDRD) Non-Af 79 BUN/Creatinine Ratio 27.5 H Glucose 98 Calcium 8.9 Total Bilirubin 0.70 AST 15 ALT 16 Alkaline Phosphatase 91 Total Protein 6.9 Albumin 4.0 Globulin 2.9 Albumin/Globulin Ratio 1.4 Radiography Diagnostic Testing: Clinical Impression(s) from Imaging Studies Chest CT 11/27/23 11:49 IMPRESSION: No sternal fracture is seen although there is evidence of a 8.8 mm cystic density in the manubrium on the left side of the midline. Electronically Signed: Billy Kaplan MD at 13:11 EDT , Foot X-Ray 11/27/23 11:49 IMPRESSION: Degenerative changes. No fracture is seen. Calcaneal spurs. Electronically Signed: Billy Kaplan MD at 13:13 EDT , Discharge Plan Triage Chief Complaint: Fall ED Provider: Cortez Leong Dx/Rx/DC Orders Clinical Impression: Chest wall contusion, Adrenal insufficiency, Anxiety and depression, Contusion of foot, left Instructions: ED Chest Wall Contusion Prescriptions: No Action folic acid 0.8 mg capsule 0.8 mg PO BID hydroxychloroquine [Plaquenil] 200 mg tablet 200 mg PO BID cyclobenzaprine 10 mg tablet 10 mg PO QHS zinc 50 mg tablet 50 mg PO DAILY ascorbate calcium (vitamin C) 500 mg tablet 500 mg PO DAILY thyroid (pork) [[place] Thyroid] 15 mg tablet 15 mg PO DAILY (DME) Handicap Placard See Rx Instructions .Route .MEDSUPPLY Qty: 1 0RF Rx Instructions: As directed, length of time 3 years Flovent HFA 110 mcg/actuation HFA aerosol inhaler 1 puff inhalation BID magnesium oxide 500 mg capsule 500 mg PO DAILY hydrocodone-acetaminophen 5-325 mg tablet 1 tab PO (DME) Handicap Placard See Rx Instructions .ROUTE .MEDSUPPLY Qty: 1 0RF Rx Instructions: As directed, length of time 3 years cholecalciferol (vitamin D3) 1,250 mcg (50,000 unit) capsule 1,250 mcg PO .EVERY OTHER WEEK Rx Instructions: This is prescribed by Dr. Kaba celecoxib 200 mg capsule 200 mg PO DAILY potassium chloride 10 mEq capsule, extended release 20 meq PO BID ferrous sulfate 325 mg (65 mg iron) tablet 325 mg PO Q OTHER DAY Qty: 90 3RF methotrexate sodium 25 MG/ML solution 25 mg subcut QWEEK prednisone 5 mg tablet 5 mg PO DAILY Qty: 14 0RF Rx Instructions: start after finishing the 20 mg tabs (three per day) triamcinolone acetonide 0.025 % ointment 1 applic topical DAILY PRN (Reason: rash) Qty: 454 1RF montelukast 10 mg tablet 10 mg PO QPM Qty: 90 3RF ursodiol 300 mg capsule 300 mg PO BID Qty: 180 3RF vitamin E (dl, acetate) 180 mg (400 unit) capsule See Rx Instructions PO DAILY Qty: 90 3RF Rx Instructions: 800 IU orally daily ipratropium-albuterol 0.5 mg-3 mg(2.5 mg base)/3 mL solution for nebulization 3 ml inhalation Q4H PRN PRN (Reason: SOB &/OR WHEEZING) Qty: 180 6RF pantoprazole 40 mg tablet,delayed release (DR/EC) 40 mg PO BID Qty: 180 2RF bupropion HCl 150 mg tablet extended release 24 hr 150 mg PO QAM Qty: 90 1RF sulfasalazine 500 mg tablet,delayed release (DR/EC) 1 g PO BID 30 Days Qty: 120 3RF amiloride-hydrochlorothiazide 5-50 mg tablet 0.5 tab PO DAILY Qty: 90 1RF Primary Care Provider: Yoanna Hull Referrals: Yoanna Hull MD [Primary Care Provider] - 1 Week Disposition Disposition: Home, Self Care
[2023-11-27 13:55] VITALS: BP 126/78; PULSE 78; RESP 16; O2SAT 98
[2023-11-27] MEDS: 0.9% Normal Saline (1000mL) 1,000 ML 999 ML IV (14:28)
[2023-11-27] MEDS: Hydrocortisone Sod Succinate 100 MG/2 ML Vial IV (14:28)
[2023-11-27 14:37] LABS: Absolute Neutrophil Count 3.6 X10^3/uL (2.0-7.7); Basophil# 0.03 X10^3/uL; Basophil% 0.4 % (0-1); Eosinophils% 2.5 % (0-5); Hematocrit 35.6 % (37-47); Hemoglobin 11.6 g/dL (12.0-15.0); Lymphocyte % 45.5 % (19-41); Mean Corp Hgb Conc 32.6 g/dL (32-36); Mean Corpuscular Hgb 32.4 pg (27.0-32.0); Mean Corpuscular Volume 99.4 fL (81-99); Mean Platelet Vol. 9.6 fl (6.2-12.0); Monocyte% 6.3 % (0-10); NRBC Flagged by Analyzer 0 % (0-5); Neutrophil # 3.55 X10^3/uL (2.7-7.7); Neutrophil % 44.9 % (47-70); Platelet Count 310 K/mm3 (150-450); RBC Distribution Width CV 13.2 % (11.6-14.6); RBC Distribution Width SD 48.2 fl (35.1-43.9); Red Blood Count 3.58 M/mm3 (4.2-5.4); White Blood Count 7.9 K/mm3 (4.4-11.0)
[2023-11-27 14:51] LABS: ALB/GLOB Ratio 1.4 RATIO (0.9-2.4); AST(SGOT) 15 U/L (15-37); Alanine Aminotransfer ALT/SGPT 16 U/L (13-56); Alkaline Phosphatase 91 U/L (45-117); Anion Gap 5 (5-15); BUN 21 mg/dL (7-18); BUN/Creat Ratio 27.5 RATIO (10-20); Calcium,Total 8.9 mg/dL (8.5-10.1); Chloride 109 mmol/L (98-107); Creatinine, Serum 0.76 mg/dL (0.55-1.02); EST Glomerular Filtration Rate 79 mL/min (>60); Est Glom Filt Rate - Afr Amer 96 mL/min (>60); Globulin 2.9 g/dL (2.2-4.2); Glucose 98 mg/dL (74-106); Potassium 3.4 mmol/L (3.5-5.1); Protein, Total 6.9 g/dL (6.4-8.2); Sodium Level 141 mmol/L (136-145)
[2023-11-27 15:00] VITALS: BP 132/81; PULSE 78; RESP 16; TEMP 37; O2SAT 98
== END 2023-11-27 15:28 | disposition home or self-care (01) ==
PROVIDERS: Emergency Provider Emergency Medicine; PCP Internal Medicine; Visit Provider Emergency Medicine
DX: S20.219A Contusion of unspecified front wall of thorax, initial encounter (principal); S90.32XA Contusion of left foot, initial encounter; W01.10XA Fall on same level from slipping, tripping and stumbling with subsequent striking against unspecified object, initial encounter; E27.40 Unspecified adrenocortical insufficiency; F41.9 Anxiety disorder, unspecified; F32.A Depression, unspecified; Z79.899 Other long term (current) drug therapy
CPT/HCPCS: 71250; 73630; 80053; 85025; 96361; 96374; 99283; J7030

== ENCOUNTER → 2023-12-22 | Outpatient (CLI) | payer MEDICARE, OTHER, SELFPAY ==
[2023-12-22 17:48] LABS: Absolute Lymphocyte Count 4.43 X10^3/uL (0.83-4.51); Absolute Neutrophil Count 4.3 X10^3/uL (2.0-7.7); Basophil# 0.04 X10^3/uL; Basophil% 0.4 % (0-1); Eosinophil# 0.17 X10^3/uL; Eosinophils% 1.8 % (0-5); Hematocrit 38.9 % (37-47); Hemoglobin 12.4 g/dL (12.0-15.0); Lymphocyte # 4.43 X10^3/ul (0.83-4.51); Lymphocyte % 47.3 % (19-41); Mean Corp Hgb Conc 31.9 g/dL (32-36); Mean Corpuscular Hgb 32.4 pg (27.0-32.0); Mean Corpuscular Volume 101.6 fL (81-99); Mean Platelet Vol. 9.1 fl (6.2-12.0); Monocyte# 0.45 X10^3/uL; Monocyte% 4.8 % (0-10); NRBC Flagged by Analyzer 0 % (0-5); Neutrophil # 4.25 X10^3/uL (2.7-7.7); Neutrophil % 45.4 % (47-70); Platelet Count 370 K/mm3 (150-450); RBC Distribution Width CV 13.2 % (11.6-14.6); Red Blood Count 3.83 M/mm3 (4.2-5.4); White Blood Count 9.4 K/mm3 (4.4-11.0)
[2023-12-22 18:31] LABS: ALB/GLOB Ratio 1.2 RATIO (0.9-2.4); AST(SGOT) 16 U/L (15-37); Alanine Aminotransfer ALT/SGPT 19 U/L (13-56); Alkaline Phosphatase 93 U/L (45-117); Anion Gap 7 (5-15); BUN 22 mg/dL (7-18); BUN/Creat Ratio 27.9 RATIO (10-20); Calcium,Total 9.1 mg/dL (8.5-10.1); Chloride 107 mmol/L (98-107); Creatinine, Serum 0.79 mg/dL (0.55-1.02); EST Glomerular Filtration Rate 77 mL/min (>60); Est Glom Filt Rate - Afr Amer 93 mL/min (>60); Globulin 3.3 g/dL (2.2-4.2); Glucose 91 mg/dL (74-106); Potassium 3.6 mmol/L (3.5-5.1); Protein, Total 7.3 g/dL (6.4-8.2); Sodium Level 141 mmol/L (136-145); Thyroid Stim Hormone (TSH) 2.36 uIU/mL (0.358-3.74)
[2023-12-23 10:38] LABS: Cholesterol 165 mg/dL (200); Free T3 2.2 pg/mL (2.18-3.98); High Density Lipoprotein 63 mg/dL; T4 Free Direct 1.04 ng/dL (0.76-1.46); Thyroid Stim Hormone (TSH) 2.28 uIU/mL (0.358-3.74); Triglycerides 134 mg/dL; Very Low Density Lipoprotein 27 mg/dL (5-40)
[2023-12-23 13:56] LABS: Hemoglobin A1c 4.8 % (3.8-5.6)
== END | disposition home or self-care (01) ==
LOC: LAB 12-23 17:57
PROVIDERS: PCP Internal Medicine; Referring Provider Internal Medicine Rheumatology; Visit Provider Internal Medicine Rheumatology
DX: M06.4 Inflammatory polyarthropathy (principal); M79.7 Fibromyalgia; Z79.899 Other long term (current) drug therapy; E27.40 Unspecified adrenocortical insufficiency; E03.9 Hypothyroidism, unspecified; R73.03 Prediabetes; E78.00 Pure hypercholesterolemia, unspecified; E55.9 Vitamin D deficiency, unspecified
CPT/HCPCS: 36415; 80053; 80061; 83036; 84439; 84443; 84481; 85025

== ENCOUNTER → 2023-12-23 | Outpatient (CLI) | payer MEDICARE, OTHER, SELFPAY ==
[2023-12-23 20:25] LABS: Vitamin D,25 Hydroxy 35.7 ng/mL
== END | disposition home or self-care (01) ==
LOC: BIMLAB 17:50
PROVIDERS: PCP Internal Medicine; Visit Provider Internal Medicine Endocrinology, Diabetes & Metabolism
DX: E27.40 Unspecified adrenocortical insufficiency (principal); E03.9 Hypothyroidism, unspecified; R73.03 Prediabetes; E78.00 Pure hypercholesterolemia, unspecified; E55.9 Vitamin D deficiency, unspecified
CPT/HCPCS: 82306

== ENCOUNTER → 2023-12-29 | Outpatient (CLI) | payer MEDICARE, OTHER, SELFPAY ==
--- NOTE | 2023-12-29 09:33 | US_ITS ---
STUDY: ABDOMINAL ULTRASOUND - RIGHT UPPER QUADRANT; ELASTOGRAPHY REASON FOR VISIT: Female, 73 years old. Fatty liver. TECHNIQUE: Ultrasound evaluation of the right upper quadrant was performed with real-time and static toro-scale imaging. Point quantification shear wave elastography was performed ([employer] TECHNICAL QUALITY: Adequate. COMPARISON: Comparison is made with prior study dated December 16, 2022. FINDINGS: Liver: The liver measures 16.7 cm. There is increased echogenicity consistent with fatty infiltration. The bile ducts are within normal limits. There is hepatic color flow. The direction of portal flow is hepatopetal. There is no demonstrated mass lesion. Median liver stiffness measured 9.8 kPa. Gallbladder: The patient is status post cholecystectomy. Common Bile Duct (C.B.D.): The common bile duct measures 8 mm. Pancreas: There is normal echogenicity of the visualized pancreas. There is no demonstrated pancreatic mass or cyst. Right Kidney: Normal size of the right kidney. The right kidney measures 11.8 cm x 5.3 cm x 4.7 cm. Normal renal cortex. The right cortex measures 1.6 cm. There is no demonstrated renal mass or cyst. There is no right hydronephrosis. US/ABD Limited w/ Elastography IMPRESSION: 1. Liver stiffness measures 9.8 kPa compatible with F2-F3 (Mild to moderate liver fibrosis) Metavir score. Electronically Signed: Billy Kaplan MD at 9:24 EDT ,
== END | disposition home or self-care (01) ==
LOC: US 09:29
PROVIDERS: PCP Internal Medicine; Referring Provider Internal Medicine Gastroenterology; Visit Provider Internal Medicine Gastroenterology
DX: K76.0 Fatty (change of) liver, not elsewhere classified (principal); M79.18 Myalgia, other site
CPT/HCPCS: 76705; 76981

== ENCOUNTER → 2024-02-09 | Outpatient (CLI) | payer MEDICARE, OTHER, SELFPAY ==
[2024-02-09 17:27] LABS: Absolute Lymphocyte Count 1.89 X10^3/uL (0.83-4.51); Absolute Neutrophil Count 4.2 X10^3/uL (2.0-7.7); Basophil# 0.03 X10^3/uL; Basophil% 0.5 % (0-1); Eosinophil# 0.05 X10^3/uL; Eosinophils% 0.8 % (0-5); Hematocrit 41.8 % (37-47); Hemoglobin 13.3 g/dL (12.0-15.0); Lymphocyte # 1.89 X10^3/ul (0.83-4.51); Mean Corp Hgb Conc 31.8 g/dL (32-36); Mean Corpuscular Volume 97.4 fL (81-99); Mean Platelet Vol. 9.2 fl (6.2-12.0); Monocyte# 0.34 X10^3/uL; Monocyte% 5.2 % (0-10); NRBC Flagged by Analyzer 0 % (0-5); Neutrophil # 4.18 X10^3/uL (2.7-7.7); Neutrophil % 64.2 % (47-70); Platelet Count 381 K/mm3 (150-450); RBC Distribution Width CV 13.2 % (11.6-14.6); RBC Distribution Width SD 47.4 fl (35.1-43.9); Red Blood Count 4.29 M/mm3 (4.2-5.4); White Blood Count 6.5 K/mm3 (4.4-11.0)
[2024-02-09 18:31] LABS: ALB/GLOB Ratio 1.2 RATIO (0.9-2.4); AST(SGOT) 22 U/L (15-37); Alanine Aminotransfer ALT/SGPT 25 U/L (13-56); Albumin, Serum 4.4 g/dL (3.2-5.0); Alkaline Phosphatase 106 U/L (45-117); Anion Gap 8 (5-15); BUN 14 mg/dL (7-18); BUN/Creat Ratio 15.7 RATIO (10-20); Calcium,Total 9.6 mg/dL (8.5-10.1); Chloride 104 mmol/L (98-107); Cholesterol 192 mg/dL (200); Creatinine, Serum 0.89 mg/dL (0.55-1.02); EST Glomerular Filtration Rate 66 mL/min (>60); Est Glom Filt Rate - Afr Amer 80 mL/min (>60); Globulin 3.6 g/dL (2.2-4.2); Glucose 113 mg/dL (74-106); High Density Lipoprotein 70 mg/dL; Potassium 3.6 mmol/L (3.5-5.1); Sodium Level 137 mmol/L (136-145); Thyroid Stim Hormone (TSH) 1.93 uIU/mL (0.358-3.74); Triglycerides 112 mg/dL; Very Low Density Lipoprotein 22 mg/dL (5-40)
[2024-02-09 22:57] LABS: Hepatitis C Antibody Non-Reactive (Nonreactive)
== END | disposition home or self-care (01) ==
PROVIDERS: PCP Family Medicine Geriatric Medicine; Visit Provider Family Medicine Geriatric Medicine
DX: Z13.89 Encounter for screening for other disorder (principal); E03.9 Hypothyroidism, unspecified; E55.9 Vitamin D deficiency, unspecified
CPT/HCPCS: 36415; 80053; 80061; 82306; 84443; 85025; 86803

== ENCOUNTER → 2024-02-17 | Outpatient (CLI) | payer MEDICARE, OTHER, SELFPAY ==
[2024-02-17 18:32] LABS: Vitamin B12 401 pg/mL (211-911)
[2024-02-17 19:45] LABS: Folates, (Folic Acid) > 100.00 ng/mL (3.1-55.4)
[2024-02-22 10:07] LABS: Methylmalonic Acid Bld 499 nmol/L (0-378)
== END | disposition home or self-care (01) ==
LOC: LAB 16:32
PROVIDERS: PCP Family Medicine Geriatric Medicine
DX: R41.3 Other amnesia (principal)
CPT/HCPCS: 36415; 82607; 82746; 83921

== ENCOUNTER → 2024-03-31 | Outpatient (CLI) | payer MEDICARE, OTHER, SELFPAY ==
--- NOTE | 2024-03-31 15:26 | VDLE_ITS ---
Reason For Study: BLE Swelling RIGHT LEFT GSV is normal. GSV is normal. CFV is compressible, spontaneous, phasic, CFV is compressible, spontaneous, phasic, competent and demonstrates normal competent, and demonstrates normal augmentation. augmentation. FV is compressible, spontaneous, phasic, FV is compressible, spontaneous, phasic, competent and demonstrates normal competent and demonstrates normal augmentation. augmentation. POP V is compressible, spontaneous, phasic, POP V is compressible, spontaneous, phasic, competent and demonstrates normal competent and demonstrates normal augmentation. augmentation. T/P Trunk is compressible. T/P Trunk is compressible. PTV is compressible. PTV is compressible. RT PerV is compressible. LT PerV is compressible. Procedure This is a venous duplex using B-mode, color flow and spectral Doppler. Exam performed in department. The exam was diagnostic. A preliminary report was called and/or faxed to Dr. Linn office. VL/Venous Duplex US - Kvng Extrem Interpretation Summary Deep veins of the lower extremities are bilaterally patent and compressible seg mentally. There is no evidence of deep vein thrombosis on either side. Valvular competence appears in tact within the proximal deep venous systems bilaterally. The great saphenous veins appear bila terally patent and compressible segmentally. Ordering Physician: Addison Linn Chi Referring Physician: Addison Linn Chi Performed By: Tu Moran, RVT
[2024-03-31 16:41] LABS: Absolute Lymphocyte Count 3.19 X10^3/uL (0.83-4.51); Absolute Neutrophil Count 3.7 X10^3/uL (2.0-7.7); Basophil# 0.04 X10^3/uL; Basophil% 0.5 % (0-1); Eosinophil# 0.22 X10^3/uL; Eosinophils% 2.8 % (0-5); Hematocrit 33.6 % (37-47); Hemoglobin 10.6 g/dL (12.0-15.0); Lymphocyte # 3.19 X10^3/ul (0.83-4.51); Lymphocyte % 41.1 % (19-41); Mean Corp Hgb Conc 31.5 g/dL (32-36); Mean Corpuscular Hgb 31.6 pg (27.0-32.0); Mean Corpuscular Volume 100.3 fL (81-99); Mean Platelet Vol. 8.9 fl (6.2-12.0); Monocyte# 0.62 X10^3/uL; NRBC Flagged by Analyzer 0 % (0-5); Neutrophil # 3.67 X10^3/uL (2.7-7.7); Neutrophil % 47.2 % (47-70); Platelet Count 321 K/mm3 (150-450); RBC Distribution Width CV 13.7 % (11.6-14.6); RBC Distribution Width SD 50.2 fl (35.1-43.9); Red Blood Count 3.35 M/mm3 (4.2-5.4); White Blood Count 7.8 K/mm3 (4.4-11.0)
[2024-03-31 16:51] LABS: Prothrombin Time (Protime)PT. 13.2 SECONDS (11.7-14.9)
[2024-03-31 17:08] LABS: BNP,B-Type NATRIURETIC PEPTIDE 20.2 pg/mL (0-100)
[2024-03-31 17:21] LABS: AST(SGOT) 18 U/L (15-37); Alanine Aminotransfer ALT/SGPT 26 U/L (13-56); Albumin, Serum 3.4 g/dL (3.2-5.0); Alkaline Phosphatase 79 U/L (45-117); Anion Gap 4 (5-15); BUN 18 mg/dL (7-18); BUN/Creat Ratio 24.3 RATIO (10-20); Bilirubin, Direct 0.12 mg/dL (0.00-0.30); Calcium,Total 8.5 mg/dL (8.5-10.1); Chloride 109 mmol/L (98-107); Creatinine, Serum 0.74 mg/dL (0.55-1.02); EST Glomerular Filtration Rate 82 mL/min (>60); Est Glom Filt Rate - Afr Amer 99 mL/min (>60); Glucose 94 mg/dL (74-106); Potassium 3.5 mmol/L (3.5-5.1); Protein, Total 6.4 g/dL (6.4-8.2); Sodium Level 141 mmol/L (136-145)
== END | disposition home or self-care (01) ==
PROVIDERS: Internal Medicine Gastroenterology; PCP Family Medicine Geriatric Medicine; Referring Provider Family Medicine Geriatric Medicine; Visit Provider Family Medicine Geriatric Medicine
DX: M79.604 Pain in right leg (principal); R60.0 Localized edema; I10 Essential (primary) hypertension; E03.9 Hypothyroidism, unspecified; R63.5 Abnormal weight gain; R06.02 Shortness of breath; K76.0 Fatty (change of) liver, not elsewhere classified
CPT/HCPCS: 36415; 80048; 80076; 83880; 84443; 85025; 85610; 93970

== ENCOUNTER 2024-04-07 15:08 | Outpatient (CLI) | payer MEDICARE, OTHER, SELFPAY | END 2024-04-07 23:59 | disposition home or self-care (01) | LOC: POLAB3 15:09 | PROVIDERS: PCP Family Medicine Geriatric Medicine; Visit Provider Family Medicine Geriatric Medicine | DX: R68.83 Chills (without fever) (principal) | CPT/HCPCS: 36415; 87631 ==

== ENCOUNTER 2024-04-15 10:34 | Day surgery (SDC) | payer MEDICARE, OTHER, SELFPAY ==
[2024-04-15] VITALS (8 sets, daily range): BP systolic 94–126; BP diastolic 61–68; PULSE 73–84; RESP 16–18; TEMP 36.2–36.6; O2SAT 94–99; BMI 38.2
--- NOTE | 2024-04-15 | IMM_PTH ---
PATIENT: MITCHELL MENON LOC: [facility] U#:[id number] AGE/SX: 73/F ROOM: RE04/15/[address]: Dr. Vahe Reese DO : 1950 BED: DIS: 04/15/2024 SPEC #: [id number] RECD: 04/15/24 14:23 STATUS: IPTA MILANA #: [id number] AYSHA: 04/15/24 00:[address]: Vahe Reese DEPT: IMMUNOHISTOCHEMISTRY RECD BY: Luna Singh ENTERED: 04/15/24 14:24 SP TYPE: IMMUNO OTHR DR: Dr. Addison Linn MD Tissues: Gastric mucous membrane Procedures: H Pylori (initial) Comments: @ Specimen number changed from [id number] to [id number] @ on 04/15/24 at 1426 by SHANNA. PHYSICIAN & INSTITUTION [place] [id number] SPECIMEN INFORMATION: Tissue Source: B. Gastric body biopsy Clinical Info: Dyspnea, diarrhea, obesity, fatty liver disease, nonalcoholic Specimen Number: [id number] CPT code: 32942 METHODOLOGY: Deparaffinized sections of prefer/formalin-fixed tissue or PAP/DQ stained slides are incubated with monoclonal/polyclonal antibodies/oligonucleotide probes. Localization is made via biotin free immunoperoxidase method. Appropriate controls are performed and reacted as expected. Results on target cell population are indicated in the following table: RESULTS: ANTIBODY / CLONE RESULT H Pylori (polyclonal) negative These tests were developed and their performance characteristics determined by [facility]. They may not have been cleared or approved by the U.S. Food and Drug Administration. The FDA has determined that such clearance or approval is not necessary. The above immunohistochemical/dualISH markers are ordered and reviewed by the Pathologist. INTERPRETATION: B. Gastric body biopsy: Negative for Helicobacter pylori organisms. SJ:vasyl 04/16/2024
--- NOTE | 2024-04-15 10:55 | PCM.HP.BLA ---
History and Physical Date of Admission: 04/15/24 MITCHELL MENON, is a 72 F who presents to the office today for follow up. *BGI established 2.09.01 with referral from her PCP for evaluation of hepatomegaly with elevated LFT and diagnosis of Roman?s esophagus.?Biochemical?CBC, uric acid, copper, IgGME, ANCA, AMA, ASM, celiac without pertinent abnormality.? ESR H38, LDH H292, IgA H408, DOUGLAS with kappa light chain abnormality and M-Rajiv.? CT abd/pel 10.03.21?finding fatty infiltration without mass; feces throughout nondistended colon; hysterectomy and cholecystectomy seen; degenerative changes of spine.? EGD and colonoscopy 10.24.21. EGD found LA Grade A reflux esophagitis. No evidence of metaplasia. No Roman?s esophagus.? Colonoscopy preparation was poor with stool throughout, no specimens collected.? OV 4.. stools have normalized since colonoscopy. Would like to focus on liver workup and weight loss.? OV 6..22 continues with normal BM and lack of heartburn. Continue PPI for Barretts? OV 8.18.22 generally feeling poor? US and elastography 04.02.22?liver measurement 16.9cm with fatty infiltration stiffness measures 10.3kPa.? OV 11.2.22 with weight difficulty r/t recent vacations. Has been doing negro-chi, water Stephan and water jazzercize classes. Balance difficulty; seen by neurology in the past and cleared. Explosive diarrhea continues to be an intermittent issue occurring less than once monthly. ?Biochemical?RAST milk 0.12? OV 4.27.23 feels she is doing well with weight loss; clothing size has been 14-16 and overall feels. Continues to have difficulty with loose stools, this has been very intermittent experiencing approximately monthly, reports that if she does not make it to the toilet on time then there will be stool on the hirsch, floor, ceiling. ?US and elastography 5..23?hepatic measurement 17.3cm with fatty infiltration 8.2 kPa? Contact 5.9.23 with results. Continue with weight loss.? ? Phentermine 37.5 with Topamax started 11.23.21, 12.23.21, 01.23.22. ? Weight? 11.23.21 249lbs? 02.01.22 223lbs? 06.12.22 233lbs? 12.05.22 237lbs 06.03.23 244lbs OV 06.03.23 Pt reports ongoing episodes of urgent explosive diarrhea. States her BM are in a cycle that begins with the blow out, then has watery smearing, then has small rabbit sized stools, then a normal BM. Does not have any abdominal pain or cramping but does feel generally better after a BM. Is not taking anything currently for bowels. OV 12.03.23 Pt presents to clinic today seeming confused and reports that she is feeling sleepy, reports taking a pill this morning, but was unable to remember what it was. Pt states that she had a fall last week and has not been doing well since then. Pt states that she is continuing her current medication regimen, but is only taking 1 40mg pantoprazole a day and takes 2 if she is experiencing heartburn. Pt reports that she has heartburn maybe once every couple of months and it's only if she's has a meal like thanksgiving. Pt reports continued bloating. Pt gave conflicting response to her bowel movements. ROS Const Constitutional: Positive for fatigue; No fever(s) or weight change ENT ENT: No difficulty swallowing Gastro GI: Positive for bloating, constipation, heartburn and excessive flatus; No abdominal pain, belching, change in bowel habits, change in stool character, coffee ground emesis, cramping, diarrhea, difficulty swallowing, feeling full early, incontinent of stools, Vomiting blood/hematemesis, Blood in stool, loose stools, Black,tarry stools, nausea/dyspepsia, pain with swallowing, vomiting or other Musc Musculoskeletal: Positive for joint pain, back pain, joint swelling, muscle cramps, muscle weakness and Arthritis Skin Skin: No yellowing of the eye or itchy eyes Psych Psychiatric: No anxiety, No depression and Positive for inattentiveness Endo Endocrine: Positive for fatigue; No weight change Aller/Imm Allergy/Immunologic: No itchy eyes Manolo/Lymp Hematologic/Lymphatic: Positive for easy bruising; No easy bleeding Exam Const General: cooperative, healthy appearing and no acute distress Orientation: alert, awake and oriented x3 HENMT Head: normal to inspection Ears: hearing grossly normal bilaterally and external ears normal Nose: external nose normal and no nasal discharge Neck Neck: normal visual inspection, full ROM, no meningeal signs and supple Chest Chest palpation & inspection: normal inspection of the chest and normal palpation of entire chest wall (Except left anterior chest wall/sternum point tender to palpation) Resp Effort & Inspection: normal respiratory effort and able to speak in complete sentences Auscultation: Bilateral: Clear to Auscultation Cardio Palpation: normal PMI Rate: regular rate Rhythm: regular rhythm Heart Sounds: S1 normal, S2 normal, no gallops, no murmurs and no rubs Pulses: radial pulses present GI Inspection: normal to inspection Palpation: soft Skin General: no rashes or lesions noted Neuro General: patient alert, patient awake, patient oriented x3 and gait normal Cognition: normal cognition Speech: speech normal Gait: normal gait Motor: muscle tone normal throughout Sensory Exam: no sensory deficits noted Extrem General: normal to inspection Other: Right middle finger generalized edema with guarded limited range of motion to all. Left anterior knee contusion/abrasion with appropriate granulation and negative Francisco/drawer and unguarded ambulation same. Psych Appearance: grossly normal Mental Status: mental status grossly normal Mood: congruent mood Affect: normal affect Speech and Movement: speech and movement normal Attitude: cooperative Assessment and Plan Assessment and Plan (1) Dyspnea: Status: Chronic Qualifiers: Dyspnea type: dyspnea on exertion Qualified Code(s): R06.09 - Other forms of dyspnea (2) Diarrhea: Status: Chronic Qualifiers: Diarrhea type: functional diarrhea Qualified Code(s): K59.1 - Functional diarrhea Plan: Her diarrhea is worse due to the stress in her life. We will start her back on Sulfasalazine. She is already on . (3) Obesity: Status: Chronic Qualifiers: Obesity type: due to excess calories Obesity classification: adult class 2 (BMI 35 - 39.9) Serious obesity comorbidity presence: with serious comorbidity Body mass index: BMI 39.0-39.9 Qualified Code(s): E66.01 - Morbid (severe) obesity due to excess calories; Z68.39 - Body mass index [BMI] 39.0-39.9, adult (4) Fatty liver disease, nonalcoholic: Status: Chronic Plan: Fatty liver disease secondary to metabolic syndrome. She has lost 75 pounds with phentermine and Ozempic. She was struggling with adrenal crisis so she only took the medicine for about 6 weeks. 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 Nonalcoholic steatohepatitis is in F3. She is also on ursodiol and vitamin E. Hopefully will be able to get her on medical therapy along with a diet and exercise program to get her BMI down to 26-28. We will reorder a fibroscan and u/s of the abdomen. Coding Level of Care Code Off vis,est,level 4 Diagnoses Dyspnea on exertion R06.09 Dyspnea type: dyspnea on exertion Functional diarrhea K59.1 Diarrhea type: functional diarrhea Class 2 severe obesity due to excess calories with serious comorbidity and body mass index (BMI) of 39.0 to 39.9 in adult E66.01; Z68.39 Obesity type: due to excess calories Obesity classification: adult class 2 (BMI 35 - 39.9) Serious obesity comorbidity presence: with serious comorbidity Body mass index: BMI 39.0-39.9 Fatty liver disease, nonalcoholic K76.0 I have examined the patient and the H&P has been reviewed. There are no clinical changes since date of exam.
[2024-04-15] MEDS: Lactated Ringers 1,000 ML 15 ML IV (11:13)
--- NOTE | 2024-04-15 11:14 | PRE.ANES_ITS ---
ASA Classification* ASA Classification ASA Classification: 3 Assessment & Plan Anesthesia* Anesthesia Assessment Anesthesia Assessment: Discussed sedation and/or anesthesia options, risks, benefits, and alternatives with patient/parents/legal guardian/POA. Questions invited. The patient/parents/legal guardian/POA seems to understand and agrees to proceed with anesthesia plan. Reviewed the physical assessment, medical history, allergy history and patient home medications list prior to surgery/procedure/anesthetic and documented any changes. Performed airway and anesthesia risk assessments. Anesthesia Type Anesthesia Type: MAC History Source History Obtained from:: Patient and Chart Anesthesia Focused Assessment* Temperature: 97.9 F Pulse Rate: 84 Blood Pressure: 126/63 Respiratory Rate: 16 Pulse Ox: 97 Oxygen Delivery Method: Room Air Airway Assessment Mouth opens: >3 cm Mallampati Score: I Teeth Condition: Caps/Crowns (Front incisors are caps. All are tight. But patient says the incisors are brittle.) Neck Range of motion (ROM): Full ROM Focused Labs Anesthesia Preop lab: CBC WBC 7.8 K/mm3 (4.4-11.0) 03/31/24 16:09 RBC 3.35 M/mm3 (4.2-5.4) L 03/31/24 16:09 Hgb 10.6 g/dL (12.0-15.0) L 03/31/24 16:09 Hct 33.6 % (37-47) L 03/31/24 16:09 Plt Count 321 K/mm3 (150-450) 03/31/24 16:09 CHEMISTRY Potassium 3.5 mmol/L (3.5-5.1) 03/31/24 16:09 Sodium 141 mmol/L (136-145) 03/31/24 16:09 Magnesium 2.3 mg/dL (1.6-2.6) 06/03/23 12:06 BUN 18 mg/dL (7-18) 03/31/24 16:09 Creatinine 0.74 mg/dL (0.55-1.02) 03/31/24 16:09 Glucose 94 mg/dL (74-106) 03/31/24 16:09 POC Glucose 96 mg/dL (70-110) 01/14/20 06:23 TSH 1.400 uIU/mL (0.358-3.740) 03/31/24 16:09 COAG PT 13.2 SECONDS (11.7-14.9) 03/31/24 16:09 Pre-Assessment Diagnosis/Proposed Procedure Planned Operative Procedure(s): EGD,COLONOSCOPY Anesthesia History Anesthesia History - color room attendant: Anesthesia History - color room attendant Hx Hospitalization No 04/13/24 13:17 Any Problems With Anesthesia No 04/13/24 13:17 Cholinesterase deficiency No 04/13/24 13:17 You/Your Family Experience No 04/13/24 13:17 fever (hyperthermia) with Relationship Recent Exposure to Contagious No 10/24/21 11:31 Disease Does patient have nerve No 04/13/24 13:17 stimulator Patient instructed to have device shut off --Does patient have Pacemaker or ICD? When Was Last Pacemaker Check QUESTION #4 FULL TEXT: You/Your Family Experience fever (hyperthermia) with Anesthesia Last Oral Intake Last Oral intake: Last Oral Intake NPO since Meds taken in AM with sips of water? Meds patient instructed to take am of surgery Any additional information?: Yes NPO since: 00:00 PONV PONV - color room attendant: PONV - color room attendant Female No 04/13/24 13:17 HX of Motion Sickness No 04/13/24 13:17 HX of N/V After Surgery No 04/13/24 13:17 Non-Smoker Yes 04/13/24 13:17 Duration of Surgery greater No 04/13/24 13:17 than 60 minutes Number of Risk Factors 1 04/13/24 13:17 PONV Score Low Risk 04/13/24 13:17 Height & Weight Height & Weight: Anesthesia: Height & Weight Height 5 ft 5 in 12/10/23 15:17 Respiratory Assessment Respiratory Assessment - color room attendant: Respiratory Tract Infection Hx - color room attendant Hx Respiratory Tract Infection Yes: GETTING OVER BRONCHITIS 04/13/24 13:17 STOP Sleep Apnea STOP Sleep Apnea - color room attendant: STOP Sleep Apnea - color room attendant Hx Hypertension No 04/13/24 13:17 Hx Sleep Apnea Yes 04/13/24 13:17 CPAP Yes 04/13/24 13:17 BIPAP No 04/13/24 13:17 Do you snore loudly (louder than talking or can be heard Do you often feel tired/ fatigued/ sleepy during daytime? Has anyone observed you stop breathing during sleep? STOP Results Positive 04/13/24 13:17 QUESTION #5 FULL TEXT : Do you snore loudly (louder than talking or can be heard through closed doors)? Tobacco Use History Tobacco Use History - color room attendant: Tobacco Use History - color room attendant Tobacco Use Smoking Status Never smoker 04/13/24 13:17 Hx Tobacco Use No 04/13/24 13:17 Years Smoking Packs Smoked per Day Smoking Cessation Date was within the last 15 years Hx Smoking Cessation Date Hx Smoking Cessation Counseling Hematologic Medial History Hematologic Hx - color room attendant: Hematologic Medical Hx - volunteer assistant Hx of Blood Transfusion No 04/13/24 13:17 Hx of Transfusion in last 3 No 04/13/24 13:17 Months Date of Last Transfusion (if within last 3 months) Ever experience any problems No 04/13/24 13:17 with transfusion(s)? Specify any problems Hx of Preganancy in last 3 No 04/13/24 13:17 Months Nurse Filling Out Transfusion VLEHHONOLULU 04/13/24 13:17 & Questions: Date: 04/13/24 04/13/24 13:17 Time: 13:36 04/13/24 13:17 Patient unable to answer at this time (ie. confused, unrespo /Reproduction History /Reproductive History - color room attendant: /Reproductive Hx- color room attendant Hx Now No 04/13/24 13:17 Gestational Age (in weeks): EDC: Hx Hx Para Hx Section SAB No 04/13/24 13:17 Active Medications Active Medications: Current Medications Generic Name Dose Route Start Last Admin Trade Name Freq PRN Reason Stop Dose Admin Lactated Ringer's 1,000 mls @ 15 mls/hr 04/15/24 11:00 IV .Q48H FERMÍN PFSH Medical History Alcohol use Bruising History of steroid therapy Ambulates with cane Bladder disease Fatty liver History of IBS Sleep apnea History of edema Fracture of proximal phalanx of right middle finger Abrasion, left knee, initial encounter Contusion of left knee Contusion of right middle finger Strain of right middle finger Chest wall contusion Sternum pain Health care maintenance Flu vaccine need Dermatitis Muscular abdominal pain in right flank Sjogren's disease Breast cancer screening Malaise and fatigue Anemia Fatty liver disease, nonalcoholic Wears glasses Cancer Thyroid disease Rheumatoid arthritis Blood disorder Restless legs Injury of head and neck Difficulty swallowing Gastric reflux Non-smoker Asthma CPAP (continuous positive airway pressure) dependence History of edema History of echocardiogram History of stress test Hypertension Meniere disease Cardiology follow-up encounter History of colon polyps Obesity Abnormal laboratory test Constipation Unsteady gait Borderline type 2 diabetes mellitus Macromastia Screening for diabetes mellitus BMI greater than 40 Anxiety and depression Radiculopathy Hypokalemia COVID-19 virus detected (05/09/20) Incontinence Chronic neck and back pain Difficulty balancing when standing Shoulder pain Adrenal insufficiency SOB (shortness of breath) Lung disease Obesity Essential (primary) hypertension Chronic pain Airway polyps Adenomatous polyps FH: colon cancer in first degree relative <60 years old GERD (gastroesophageal reflux disease) Sinusitis Back pain Bilateral lower extremity edema Abnormal bowel movement Otitis media URI, acute Limb weakness Difficulty balancing Migraines Hay fever Fatigue Acute bronchitis Hypopituitarism Dyspnea Osteopenia Osteoarthritis CSA (central sleep apnea) Type 1 diabetes mellitus Pneumonia Basal cell carcinoma Bronchitis Vitamin D deficiency Low magnesium level Arthritis Hypersomnia Cellulitis of right lower leg MGUS (monoclonal gammopathy of unknown significance) Hypothyroidism Rheumatoid arthritis Depression Home Medications ?Medication ?Instructions ?Recorded ?Last Taken ?Type folic acid 0.8 mg capsule 0.8 mg PO BID supplement 07/14/18 04/14/24 History hydroxychloroquine 200 mg tablet 200 mg PO BID ra 09/01/18 04/14/24 History (Plaquenil) cyclobenzaprine 10 mg tablet 10 mg PO QHS PRN pain 12/22/19 01/12/20 History Handicap Placard #1 ea 09/11/20 Unknown Rx thyroid (pork) 15 mg tablet 15 mg PO DAILY 09/11/20 04/15/24 History ([place] Thyroid) methotrexate sodium 25 mg/mL 25 mg subcut QWEEK 09/25/20 04/04/24 History injection solution triamcinolone acetonide 0.025 % 1 applic topical DAILY PRN rash 05/07/21 Unknown Rx topical ointment #454 grams fluticasone propionate 110 1 puff inhalation BID PRN ALLERGIES 06/12/21 10/24/21 09:00 History mcg/actuation HFA aerosol inhaler (Flovent HFA) magnesium oxide 500 mg capsule 500 mg PO DAILY 09/11/21 04/13/24 History prednisone 5 mg tablet 5 mg PO DAILY #14 tabs 02/01/22 04/14/24 Rx vitamin E (dl, acetate) 180 mg See Rx Instructions PO DAILY #90 10/07/22 04/13/24 Rx (400 unit) capsule caps Handicap Placard #1 ea 11/22/22 Unknown Rx hydrocodone-acetaminophen 5-325mg 1 tab PO Q6H PRN pain 11/22/22 04/11/24 History 5mg-325mg cholecalciferol (vitamin D3) 1,250 1,250 mcg PO .EVERY OTHER WEEK 03/05/23 04/04/24 History mcg (50,000 unit) capsule ipratropium 0.5 mg-albuterol 3 mg 3 ml inhalation Q4H PRN PRN SOB 05/20/23 Unknown Rx (2.5 mg base)/3 mL nebulization &/OR WHEEZING #180 mL soln potassium chloride 10 mEq 20 meq PO BID 07/22/23 04/14/24 History capsule,extended release pantoprazole 40 mg tablet,delayed 40 mg PO BID #180 tabs 08/13/23 Unknown Rx release ferrous sulfate 325 mg (65 mg 325 mg PO Q OTHER DAY #90 tabs 09/10/23 04/01/24 Rx iron) tablet ursodiol 300 mg capsule 300 mg PO BID #180 caps 12/17/23 04/14/24 Rx sulfasalazine 500 mg 1 g (2 x 500 mg) PO BID 90 days 01/23/24 04/14/24 Rx tablet,delayed release #360 tabs peg 3350-electrolytes 236 240 ml PO Q10M #4,000 mL 04/01/24 04/14/24 Rx gram-22.74 gram-6.74 gram-5.86 gram solution (Golytely) furosemide 40 mg tablet 40 mg PO DAILY 04/13/24 04/13/24 History venlafaxine 37.5 mg tablet 37.5 mg PO DAILY 04/13/24 04/14/24 History Allergy/AdvReac Type Severity Reaction Status Date / Time milk Allergy Mild Diarrhea Verified 04/15/24 11:06 phenytoin sodium (From Allergy Mild Rash Verified 04/15/24 11:06 Dilantin) phenytoin sodium extended Allergy Mild Rash Verified 04/15/24 11:06 (From Dilantin) ketorolac tromethamine (From Allergy Anaphylaxis Verified 04/15/24 11:06 Toradol) melon Allergy NEEDS Verified 04/15/24 11:06 FOLLOW-UP morphine AdvReac Severe Other Verified 04/15/24 11:06 Family History Father Cancer father passed of lung CA at 55 Mother Dementia Osteoarthritis COPD (chronic obstructive pulmonary disease) Brother Myocardial infarction, Onset Age: 49 Aunt Multiple sclerosis Sister Colon cancer Breast cancer Aunt Celiac disease Surgical History History of cardiac catheterization Hx of colonoscopy Hx of oral surgery History of tonsillectomy and adenoidectomy S/P knee surgery H/O dilation and curettage History of cataract surgery History of left heart catheterization (01/14/20) History of orthopedic surgery History of carpal tunnel release S/P bunionectomy S/P excision of Molina's neuroma History of carpal tunnel surgery History of cholecystectomy History of hysterectomy History of 2 sections Status post total right knee replacement Social History Smoking Status: Never smoker alcohol intake: current alcohol intake frequency: a few times a month Alcohol type: wine substance use type: does not use what type of physical activity do you participate in: walking, bicycling and swimming frequency: 3-4 times per week 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
--- NOTE | 2024-04-15 11:30 | COLBX_PTH ---
PATIENT: MITCHELL MENON LOC: [facility] U#:[id number] AGE/SX: 73/F ROOM: RE04/15/[address]: Dr. Vahe Reese DO : 1950 BED: DIS: 04/15/2024 SPEC #: [id number] RECD: 04/15/24 12:53 STATUS: PITA MILANA #: [id number] AYSHA: 04/15/24 11:[address]: Vahe Reese DEPT: SURGICAL PATHOLOGY RECD BY: Luna Singh ENTERED: 04/15/24 13:50 SP TYPE: COLON BX OTHR DR: Dr. Addison Linn MD Tissues: A - Duodenum, NOS B - Gastric mucous membrane C - Ileum, NOS D - COLON BIOPSY E - Sigmoid colon biopsy Procedures: Surgery Specimen Level IV HEADER OPERATION: Colonoscopy, biopsy and polypectomy PRE-OP DIAGNOSIS: Dyspnea, diarrhea, obesity, fatty liver disease, non-alcoholic TISSUE SUBMITTED: A- Duodenum biopsy, B- Gastric body biopsy, C- Terminal ileum biopsy, D- Random colon biopsy, E- Sigmoid colon polyp MICROSCOPIC DIAGNOSIS A- Duodenum, biopsy: Fragments of duodenal mucosa, no pathologic diagnosis. B- Gastric body, biopsy: Mild gastritis. See microscopic description and comment. C- Terminal ileum, biopsy: Fragments of small intestinal mucosa, no pathologic diagnosis. D- Random colon, biopsy: Fragments of colonic mucosa with a few pigment-laden macrophages, consistent with melanosis coli. E- Sigmoid colon polyp, polypectomy: Fragments of tubular adenoma. SJ: 04/16/2024 COMMENT B. The results of immunohistochemistry for Helicobacter pylori will be reported separately ([id number]). MICROSCOPIC DESCRIPTION Slides are reviewed. The specimen shows fragments of gastric mucosa with chronic inflammatory cell infiltrates in the lamina propria consisting of lymphocytes and plasma cells, consistent with mild chronic gastritis. GROSS DESCRIPTION A. Received in fixative is one container labeled with the patient's name and designated Duodenum biopsy. The specimen consists of multiple irregular fragments of light hernandes soft tissue that in aggregate measure 1.0 x 0.3 x 0.1 cm. The specimen is totally submitted in one cassette. B. Received in fixative is one container labeled with the patient's name and designated Gastric body biopsy. The specimen consists of multiple irregular fragments of light hernandes soft tissue that in aggregate measure 0.8 x 0.3 x 0.1 cm. The specimen is totally submitted in one cassette. C. Received in fixative is one container labeled with the patient's name and designated Terminal ileum biopsy. The specimen consists of multiple irregular fragments of light hernandes soft tissue that in aggregate measure 1.0 x 0.3 x 0.1 cm. The specimen is totally submitted in one cassette. D. Received in fixative is one container labeled with the patient's name and designated Random colon biopsy. The specimen consists of multiple irregular fragments of light hernandes soft tissue that in aggregate measure 2.0 x 0.5 x 0.1 cm. The specimen is totally submitted in one cassette. E. Received in fixative is one container labeled with the patient's name and designated Sigmoid colon polyp. The specimen consists of multiple irregular fragments of light hernandes soft tissue that in aggregate measure 0.8 x 0.5 x 0.1 cm. The specimen is totally submitted in one cassette. SJNegromr 04/15/2024 TC:1 CPT:[id number]
[2024-04-15] MEDS: Hydrocortisone Sod Succinate 100 MG/2 ML Vial IV (11:41)
--- NOTE | 2024-04-15 12:26 | PCM.POST.ANE ---
Anesthesia: Postop Eval I Current Vital Signs Temperature: 98 F Pulse Rate: 74 Blood Pressure: 94/64 Respiratory Rate: 16 Pulse Ox: 97 Oxygen Delivery Method: Room Air Assessment Airway patent: Yes Spontaneous unlabored respirations: Yes Mental status: Awake and Calm nausea: No Vomiting: No Anesthesia Complication: No Fluid Hydration Crystalloid volume administer (ml): 500 Total IV fluid infused: 500 Progress Note Anesthesia document: Postop Eval 1 completed: Yes
--- NOTE | 2024-04-15 12:30 | OP.CCLET_ITS ---
04/15/2024 Addison Linn MD [address] [place] [address] Re : Colonoscopy procedure for [place] Dear Dr. Linn This procedure was performed on April. My impressions and recommendations are as follows: Impressions : - Preparation of the colon was poor. - One 5 mm polyp in the sigmoid colon, removed with a cold snare. Resected and retrieved. - Stool in the entire examined colon. - Congested mucosa in the entire examined colon. Biopsied. - Diverticulosis in the recto-sigmoid colon and in the sigmoid colon. - The examined portion of the ileum was normal. Biopsied. Recommendations : - Discharge patient to home. - Resume previous diet. - Continue present medications. - Await pathology results. - Repeat colonoscopy. My findings are described in the full procedure note, which is enclosed. If I can be of further assistance, please feel free to contact me at . Sincerely, Vahe Reese, 04/15/2024 12:30:12 PM This report has been signed electronically.
--- NOTE | 2024-04-15 12:30 | OP.COLON_ITS ---
Patient Name: Bebeto Dejesus Procedure Date: 04/15/2024 12:01 PM Date of : 1950 Age: 73 Procedure: Colonoscopy Indications: Hematochezia, Iron deficiency anemia Providers: Vahe Reese DO Referring MD: Addison Linn MD Medicines: Monitored Anesthesia Care Patient Profile: This is a 73 year old female. Refer to note in patient chart for documentation of history and physical. Last Colonoscopy: date unknown. Unable to locate last colonoscopy report. Complications: No immediate complications. Procedure: Pre-Anesthesia Assessment: - Prior to the procedure, a History and Physical was performed, and patient medications and allergies were reviewed. The patient is competent. The risks and benefits of the procedure and the sedation options and risks were discussed with the patient. All questions were answered and informed consent was obtained. Patient identification and proposed procedure were verified by the physician in the pre-procedure area. Mental Status Examination: alert and oriented. Airway Examination: normal oropharyngeal airway and neck mobility. Respiratory Examination: clear to auscultation. CV Examination: normal. Prophylactic Antibiotics: The patient does not require prophylactic antibiotics. Prior Anticoagulants: The patient has taken no anticoagulant or antiplatelet agents except for NSAID medication. ASA Grade Assessment: II - A patient with mild systemic disease. After reviewing the risks and benefits, the patient was deemed in satisfactory condition to undergo the procedure. The anesthesia plan was to use monitored anesthesia care (MAC). Immediately prior to administration of medications, the patient was re-assessed for adequacy to receive sedatives. The heart rate, respiratory rate, oxygen saturations, blood pressure, adequacy of pulmonary ventilation, and response to care were monitored throughout the procedure. The physical status of the patient was re-assessed after the procedure. After I obtained informed consent, the scope was passed under direct vision. Throughout the procedure, the patient's blood pressure, pulse, and oxygen saturations were monitored continuously. The Colonoscope was introduced through the anus and advanced to the terminal ileum. The colonoscopy was performed without difficulty. The patient tolerated the procedure well. The quality of the bowel preparation was poor. The terminal ileum, ileocecal valve, appendiceal orifice, and rectum were photographed. Scope In: 12:03:48 PM Scope Withdrawal Time 0 hours 8 minutes 11 seconds Scope Out: 12:18:49 PM Total Procedure Duration Time 0 hours 15 minutes 1 second Findings: The perianal and digital rectal examinations were normal. A 5 mm polyp was found in the sigmoid colon. The polyp was sessile. The polyp was removed with a cold snare. Resection and retrieval were complete. Verification of patient identification for the specimen was done. Estimated blood loss was minimal. Stool was found in the entire colon. An area of mildly congested mucosa was found in the entire colon. Biopsies were taken with a cold forceps for histology. Verification of patient identification for the specimen was done. Estimated blood loss was minimal. Multiple small and large-mouthed diverticula were found in the recto-sigmoid colon and sigmoid colon. The terminal ileum appeared normal. Biopsies were taken with a cold forceps for histology. Verification of patient identification for the specimen was done. Estimated blood loss was minimal. Impression: - Preparation of the colon was poor. - One 5 mm polyp in the sigmoid colon, removed with a cold snare. Resected and retrieved. - Stool in the entire examined colon. - Congested mucosa in the entire examined colon. Biopsied. - Diverticulosis in the recto-sigmoid colon and in the sigmoid colon. - The examined portion of the ileum was normal. Biopsied. Recommendation: - Discharge patient to home. - Resume previous diet. - Continue present medications. - Await pathology results. - Repeat colonoscopy. Procedure Code(s): --- Professional --- 08784, Colonoscopy, flexible; with removal of tumor(s), polyp(s), or other lesion(s) by snare technique 82924, 59, Colonoscopy, flexible; with biopsy, single or multiple CPT copyright 2021 [employer]. All rights reserved. The codes documented in this report are preliminary and upon physicist light and optics review may be revised to meet current compliance requirements. Vahe Reese DO 04/15/2024 12:30:12 PM This report has been signed electronically. Number of Addenda: 0 Note Initiated On: 04/15/2024 12:01 PM
--- NOTE | 2024-04-15 12:33 | OP.EGD_ITS ---
Patient Name: Bebeto Dejesus Procedure Date: 04/15/2024 11:41 AM Date of : 1950 Age: 73 Procedure: Upper GI endoscopy Indications: Iron deficiency anemia Providers: Vahe Reese DO Referring MD: Addison Linn MD Medicines: Monitored Anesthesia Care Patient Profile: This is a 73 year old female. Refer to note in patient chart for documentation of history and physical. Patient has symptoms of acute dyspepsia. Complications: No immediate complications. Procedure: Pre-Anesthesia Assessment: - Prior to the procedure, a History and Physical was performed, and patient medications and allergies were reviewed. The patient is competent. The risks and benefits of the procedure and the sedation options and risks were discussed with the patient. All questions were answered and informed consent was obtained. Patient identification and proposed procedure were verified by the nurse in the pre-procedure area. Mental Status Examination: alert and oriented. Airway Examination: normal oropharyngeal airway and neck mobility. Respiratory Examination: clear to auscultation. CV Examination: normal. Prophylactic Antibiotics: The patient does not require prophylactic antibiotics. Prior Anticoagulants: The patient has taken no anticoagulant or antiplatelet agents. ASA Grade Assessment: III - A patient with severe systemic disease. After reviewing the risks and benefits, the patient was deemed in satisfactory condition to undergo the procedure. The anesthesia plan was to use monitored anesthesia care (MAC). Immediately prior to administration of medications, the patient was re-assessed for adequacy to receive sedatives. The heart rate, respiratory rate, oxygen saturations, blood pressure, adequacy of pulmonary ventilation, and response to care were monitored throughout the procedure. The physical status of the patient was re-assessed after the procedure. After obtaining informed consent, the endoscope was passed under direct vision. Throughout the procedure, the patient's blood pressure, pulse, and oxygen saturations were monitored continuously. The Colonoscope was introduced through the mouth, and advanced to the second part of duodenum. The upper GI endoscopy was accomplished without difficulty. The patient tolerated the procedure well. Scope In: 11:57:48 AM Scope Out: 12:00:47 PM Total Procedure Duration Time 0 hours 2 minutes 59 seconds Findings: The examined esophagus was normal. Patchy mildly erythematous mucosa without bleeding was found in the stomach. Biopsies were taken with a cold forceps for histology. Verification of patient identification for the specimen was done. Estimated blood loss was minimal. Biopsies were taken with a cold forceps for Helicobacter pylori testing. Verification of patient identification for the specimen was done. Estimated blood loss was minimal. Patchy mildly erythematous mucosa without active bleeding and with no stigmata of bleeding was found in the duodenal bulb. Biopsies for histology were taken with a cold forceps for evaluation of celiac disease. Impression: - Normal esophagus. - Erythematous mucosa in the stomach. Biopsied. - Erythematous duodenopathy. Biopsied. Recommendation: - Await pathology results. - Continue present medications. Procedure Code(s): --- Professional --- 57726, Esophagogastroduodenoscopy, flexible, transoral; with biopsy, single or multiple CPT copyright 2021 [employer]. All rights reserved. The codes documented in this report are preliminary and upon merchandising director review may be revised to meet current compliance requirements. Vahe Reese DO 04/15/2024 12:33:06 PM This report has been signed electronically. Number of Addenda: 0 Note Initiated On: 04/15/2024 11:41 AM
--- NOTE | 2024-04-15 12:33 | OP.CCLET_ITS ---
04/15/2024 Addison Linn MD [address] [place] [address] Re : Upper GI endoscopy procedure for Bebeto Wellpinit Dear Dr. Linn This procedure was performed on April. My impressions and recommendations are as follows: Impressions : - Normal esophagus. - Erythematous mucosa in the stomach. Biopsied. - Erythematous duodenopathy. Biopsied. Recommendations : - Await pathology results. - Continue present medications. My findings are described in the full procedure note, which is enclosed. If I can be of further assistance, please feel free to contact me at . Sincerely, Vahe Reese, 04/15/2024 12:33:06 PM This report has been signed electronically.
--- NOTE | 2024-04-15 13:47 | PCM.POSTANE2 ---
Anesthesia Postop Eval I Sum Postop Eval Completion status Anesthesia document: Postop Eval 1 completed: Yes Anesthesia Postop Eval I Summary Anesthesia Postop Eval I Summary: Anesthesia Postop Eval I: Assessment Summary Airway patent Yes 04/15/24 12:27 [email or web address] Spontaneous unlabored Yes 04/15/24 12:27 [email or web address] respirations Mental status Awake,Calm 04/15/24 12:27 [email or web address] nausea No 04/15/24 12:27 [email or web address] Vomiting No 04/15/24 12:27 [email or web address] Anesthesia Postop Eval I: Fluid Summary Crystalloid volume administer 500 04/15/24 12:27 [email or web address] (ml) Colloids volume administered ( ml) Blood Product volume administered (ml) Total IV fluid infused 500 04/15/24 12:27 [email or web address] Anesthesia Postop Eval I: Summary Notes Anesthesia Complication No 04/15/24 12:27 [email or web address] Anesthesia Complication Comment: Post-operative progress note Anesthesia: Postop Eval II Evaluation Mental status: Awake Pain Level: 0 nausea: No Vomiting: No
== END 2024-04-15 13:05 | disposition home or self-care (01) ==
LOC: EN 10:34 → AC 10:41
PROVIDERS: PCP Family Medicine Geriatric Medicine; Referring Provider Family Medicine Geriatric Medicine; Visit Provider Internal Medicine Gastroenterology
PROC: 0DJD8ZZ Inspection of Lower Intestinal Tract, Via Natural or Artificial Opening Endoscopic (ICD-10-PCS; CPT 45378; principal; 2024-04-15 11:25)
DX: D12.5 Benign neoplasm of sigmoid colon (principal); E66.01 Morbid (severe) obesity due to excess calories; K57.30 Diverticulosis of large intestine without perforation or abscess without bleeding; D50.9 Iron deficiency anemia, unspecified; Z90.49 Acquired absence of other specified parts of digestive tract; K59.1 Functional diarrhea; Z68.39 Body mass index [BMI] 39.0-39.9, adult; R06.09 Other forms of dyspnea; K76.0 Fatty (change of) liver, not elsewhere classified; K29.70 Gastritis, unspecified, without bleeding; Z79.890 Hormone replacement therapy; Z79.52 Long term (current) use of systemic steroids; K22.70 Barrett's esophagus without dysplasia; I10 Essential (primary) hypertension; E03.9 Hypothyroidism, unspecified; K21.9 Gastro-esophageal reflux disease without esophagitis; J45.909 Unspecified asthma, uncomplicated; Z87.19 Personal history of other diseases of the digestive system; Z79.899 Other long term (current) drug therapy
CPT/HCPCS: 45380; 45385; 43239; 88305; 88342; J7120; J2405

== ENCOUNTER → 2024-05-03 | Outpatient (CLI) | payer MEDICARE, OTHER, SELFPAY ==
[2024-05-03 18:29] LABS: Vitamin D,25 Hydroxy 48.4 ng/mL
[2024-05-03 18:38] LABS: ALB/GLOB Ratio 1.2 RATIO (0.9-2.4); AST(SGOT) 21 U/L (15-37); Alanine Aminotransfer ALT/SGPT 23 U/L (13-56); Albumin, Serum 4.1 g/dL (3.2-5.0); Alkaline Phosphatase 101 U/L (45-117); Anion Gap 7 (5-15); BUN 29 mg/dL (7-18); BUN/Creat Ratio 35.4 RATIO (10-20); Calcium,Total 9.2 mg/dL (8.5-10.1); Chloride 108 mmol/L (98-107); Cholesterol 171 mg/dL (200); Creatinine, Serum 0.82 mg/dL (0.55-1.02); EST Glomerular Filtration Rate 73 mL/min (>60); Est Glom Filt Rate - Afr Amer 88 mL/min (>60); Free T3 2.7 pg/mL (2.18-3.98); Globulin 3.3 g/dL (2.2-4.2); Glucose 87 mg/dL (74-106); High Density Lipoprotein 78 mg/dL; Potassium 3.7 mmol/L (3.5-5.1); Protein, Total 7.4 g/dL (6.4-8.2); Sodium Level 141 mmol/L (136-145); T4 Free Direct 1.09 ng/dL (0.76-1.46); Triglycerides 53 mg/dL; Very Low Density Lipoprotein 11 mg/dL (5-40)
== END | disposition home or self-care (01) ==
LOC: LAB 16:57
PROVIDERS: PCP Family Medicine Geriatric Medicine; Referring Provider Internal Medicine Endocrinology, Diabetes & Metabolism; Visit Provider Internal Medicine Endocrinology, Diabetes & Metabolism
DX: E27.40 Unspecified adrenocortical insufficiency (principal); E03.9 Hypothyroidism, unspecified; R73.03 Prediabetes; E78.00 Pure hypercholesterolemia, unspecified; E55.9 Vitamin D deficiency, unspecified
CPT/HCPCS: 36415; 80053; 80061; 82306; 83036; 84439; 84443; 84481

== ENCOUNTER → 2024-05-13 | Outpatient (CLI) | payer MEDICARE, OTHER, SELFPAY ==
[2024-05-13 13:48] LABS: Creatinine, Urine (random) < 13.00 mg/dL (NO RANGE EST.); Microalbumin,Random Urine < 5.0 mg/L (NO RANGE EST.)
== END | disposition home or self-care (01) ==
LOC: LABSPEC 12:42
PROVIDERS: PCP Family Medicine Geriatric Medicine; Referring Provider Internal Medicine Endocrinology, Diabetes & Metabolism; Visit Provider Internal Medicine Endocrinology, Diabetes & Metabolism
DX: E27.40 Unspecified adrenocortical insufficiency (principal); E03.9 Hypothyroidism, unspecified; R73.03 Prediabetes; E78.00 Pure hypercholesterolemia, unspecified; E55.9 Vitamin D deficiency, unspecified
CPT/HCPCS: 82043; 82570

== ENCOUNTER → 2024-05-25 | Outpatient (CLI) | payer MEDICARE, OTHER, SELFPAY ==
[2024-05-25 15:40] LABS: Absolute Lymphocyte Count 4.26 X10^3/uL (0.83-4.51); Absolute Neutrophil Count 3.7 X10^3/uL (2.0-7.7); Basophil# 0.05 X10^3/uL; Basophil% 0.6 % (0-1); Eosinophil# 0.18 X10^3/uL; Hematocrit 37.3 % (37-47); Hemoglobin 11.8 g/dL (12.0-15.0); Lymphocyte # 4.26 X10^3/ul (0.83-4.51); Lymphocyte % 48.5 % (19-41); Mean Corp Hgb Conc 31.6 g/dL (32-36); Mean Corpuscular Hgb 31.7 pg (27.0-32.0); Mean Corpuscular Volume 100.3 fL (81-99); Mean Platelet Vol. 9.2 fl (6.2-12.0); Monocyte# 0.62 X10^3/uL; Monocyte% 7.1 % (0-10); NRBC Flagged by Analyzer 0 % (0-5); Neutrophil # 3.65 X10^3/uL (2.7-7.7); Neutrophil % 41.5 % (47-70); Platelet Count 318 K/mm3 (150-450); RBC Distribution Width SD 47.8 fl (35.1-43.9); Red Blood Count 3.72 M/mm3 (4.2-5.4); White Blood Count 8.8 K/mm3 (4.4-11.0)
[2024-05-25 15:50] LABS: ALB/GLOB Ratio 1.3 RATIO (0.9-2.4); AST(SGOT) 20 U/L (15-37); Alanine Aminotransfer ALT/SGPT 27 U/L (13-56); Albumin, Serum 3.7 g/dL (3.2-5.0); Alkaline Phosphatase 93 U/L (45-117); Anion Gap 3 (5-15); BUN 23 mg/dL (7-18); Chloride 112 mmol/L (98-107); Creatinine, Serum 0.82 mg/dL (0.55-1.02); EST Glomerular Filtration Rate 73 mL/min (>60); Est Glom Filt Rate - Afr Amer 88 mL/min (>60); Globulin 2.9 g/dL (2.2-4.2); Glucose 92 mg/dL (74-106); Protein, Total 6.6 g/dL (6.4-8.2); Sodium Level 142 mmol/L (136-145)
== END | disposition home or self-care (01) ==
LOC: MTLAB 11:47
PROVIDERS: PCP Family Medicine Geriatric Medicine; Referring Provider Internal Medicine Rheumatology; Visit Provider Internal Medicine Rheumatology
DX: M06.4 Inflammatory polyarthropathy (principal); Z79.899 Other long term (current) drug therapy; M79.7 Fibromyalgia; M35.00 Sjogren syndrome, unspecified
CPT/HCPCS: 36415; 80053; 85025

== ENCOUNTER 2024-06-11 05:44 | Day surgery (SDC) | payer MEDICARE, OTHER, SELFPAY ==
[2024-06-11] VITALS (11 sets, daily range): BP systolic 100–139; BP diastolic 58–80; PULSE 85–100; RESP 16–18; TEMP 36.2–37.1; O2SAT 91–97; BMI 38.4
[2024-06-11] MEDS: Lactated Ringers 1,000 ML 15 ML IV (06:11)
[2024-06-11 06:24] LABS: Bedside Glucose 119 mg/dL (74-106)
[2024-06-11] MEDS: Gabapentin 600 MG Tablet PO (06:26)
[2024-06-11] MEDS: Acetaminophen 500 MG Tablet 1000 MG PO (06:26)
--- NOTE | 2024-06-11 07:04 | OP.PCM_ITS ---
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 [place] of calcaneal bone graft, left foot 2. Endoscopic gastroc recession, left lower extremity 3. Farhad osteotomy, second metatarsal, left foot 4. First metatarsophalangeal joint arthrodesis, left foot Surgeon: Chetan Coleman Date of Procedure: 06/11/24 Procedure Start Time: 07:55 Procedure Stop Time: 10:06 Pre-Operative Diagnosis: 1. Hallux rigidus, left foot 2. Pain, left foot 3. Osteoarthritis first metatarsophalangeal joint, left foot 4. Rheumatoid arthritis, left foot 5. Short Achilles tendon, left lower extremity 5. Hammertoes, left foot Post-Operative Diagnosis: 1. Hallux rigidus, left foot 2. Pain, left foot 3. Osteoarthritis first metatarsophalangeal joint, left foot 4. Rheumatoid arthritis, left foot 5. Short Achilles tendon, left lower extremity 5. Hammertoes, left foot Select all DRAINS/GRAFTS/IMPLANTS that apply: Prosthetic device Prosthetic device details: [employer] hardware and Graft Graft details: 2 cc via flow Type of Anesthesia: Block,Regional and General Special Medications: Per anesthesia Estimated Blood Loss: 40 mL Fluids Replaced: Per anesthesia Specimen collected: No Description of surgery: Indications For Operation: Ms. Dejesus is a 73-year-old who was admitted to [facility] for elective left foot surgery secondary to osteoarthritis. Patient is well- known to my office and was seen for surgical consultation where we discussed conservative versus surgical treatment regarding the patient's left foot pain. Due to the patient's history of rheumatoid arthritis she has been having continued ongoing pain even with conservative treatment and exhausting all shoe gear modifications, taping, strapping, offloading and [id number] inserts. Due to the nature of the patient's continued pain and had deemed necessary at this time to take the patient the operating room to perform the blood procedure to help reduce her constant pain and get her toe back in realignment so she does not have continued pain with shoe gear. Due to nature of the patient's rheumatoid arthritis we discussed many different treatment options. I did discuss fusion of the big toe joint as well as removal of the metatarsal heads. The patient would only like to move forward with the stated procedure above and will do additional procedures if she continues to have metatarsal pains which she had only over and under the second metatarsal. Patient had formal surgical consultation with all risk and benefits discussed with her in great detail. Patient was medically cleared to move forward with elective procedure. The nature of the problem, anticipated procedures, postop recovery/convalences and risk/complications include but not limited to infection, wound healing complications, digital amputation, hypertrophic scarring, numbness, tingling, chronic pain, CRPS, over and under correction, recurrence of deformity, DVT and or PE and the need for further surgery have been discussed in great detail with the patient. All questions have been answered to the patient's satisfaction. There are no guarantees given as to the outcome of the procedure. Description of Procedure: Under mild sedation, the patient was brought into the operating room and placed on the operating table in supine position. Once the patient was under general anesthesia with laryngeal mask airway, the left lower extremity was blocked using approximately 10 cc 0.5% Marcaine plain to the saphenous nerve to left lower extremity. Patient did receive a popliteal block per anesthesia prior to the procedure please see anesthesia notes for further detail. Next, a well- padded thigh tourniquet was applied to the left lower extremity. Next, the left lower extremity was prepped and draped in normal aseptic manner. Next, a timeout was then undertaken verifying the correct patient, extremity, visibility of preoperative markings, availability of the equipment. Next, attention was directed to the left lower extremity. Using a 4 inch Esmarch, left lower extremity was exsanguinated and elevated to 60 degrees for 1 minute. Procedure #1: [place] of calcaneal bone graft, left foot (CPT code: 51908) Next, attention was directed to the lateral aspect of the left calcaneus. Using a #15 blade, a full-thickness incision, approximately 1 cm, was made down to bone without incident. Continued blunt dissection was carried out with curved hemostats. Using the Andel 7 mm bone graft harvester, calcaneal bone harvest less than than 5 cc was made, then removed from the calcaneus and passed the back table to be used later in the case, for the first metatarsophalangeal joint arthrodesis procedure. The incision was flushed with copious gómez of normal saline. The skin was reapproximated and closed using 4-0 nylon in simple interrupted suture technique. Procedure #2: Endoscopic gastroc recession, left lower extremity (CPT code: 96975) Next, attention was directed to the left lower extermity. A silfverskiold test was performed on the operating table. There was evidence of a positive Silfverskiold test for gastrocnemius equinus. Next, attention was directed to the aponeurosis of the gastrocnemius muscle. A small stab incision was placed approximately 2 to 3 cm from the gastroc insertion. Using the Roxanne coal cutting machine operator the aponeurosis was bow strong and then advanced to the lateral aspect of the left lower extremity. Once tenting of the skin was identified a small stab incision was made with a 15 blade laterally. Using the Chester obturator and cannula, it was advanced through both incisions. Using the Chester 30 degree 4.0 mm scope there showed evidence of the aponeurosis of the gastrocnemius muscle. Using the rasp the muscle fibers/Sub Q were removed from the aponeurosis tissue. Using the Chester 30 degree 4.0 mm scope and hook blade, careful incision across the aponeurosis was made half laterally then half medially until released. After release of the aponeurosis the ankle was put through range of motion with the knee extended as well as flexed and showed to be increased past 90 in both positions. Both incisions were flushed with copious gómez of warm saline. The skin was reapproximated and closed with 4-0 nylon in simple interrupted suture technique. Procedure #3: Farhad osteotomy, second metatarsal, left foot (CPT code: 44048?T1) Next, attention was directed to the level of the second metatarsal phalangeal joint of the left foot. Using large C-arm fluoroscopy the second metatarsal phalangeal joint was marked out. A full-thickness incision using a #15 blade was made approximately 1.5 cm over the joint. Continued blunt dissection was carried down to the level of the joint capsule. The long extensor tendon was retracted, the joint capsule was identified and then incised to exposed the head of the second metatarsal. Using McGlamery elevator, the soft tissue was freed inferior to the metatarsal head. This allows for reduction of the plantar plate which allowed the second digit to sit down. Using a sagittal saw and #114 blade, central metatarsal osteotomy was made parallel to the weightbearing surface of the second metatarsal. The bone was released and retracted about 3 mm. Using Chester x3 2.0 mm x 11 mm snap off screw, the head of the second metatarsal was fixated in place. Hardware placement was confirmed with large C-arm fluoroscopy. The overhanging metatarsal shelf was removed with a bone cutter. A hand rasp was used to round off any sharp edges. The incision was flushed with copious amounts normal saline. Procedure #4: First metatarsophalangeal joint arthrodesis, left foot (CPT code: 44595) Next, using a #15 blade, a full-thickness incision down to bone was made medial to the extensor hallucis longus tendon, left foot. The extensor hallucis longus tendon was protected and continued dissection was carried down and around the first metatarsal phalangeal joint. Care was taken to remove the periosteum at the level of the surgical neck of the first metatarsal and head as well as the base of the proximal phalanx. The joint was inspected and showed evidence of moderate osteoarthritis as well as 65% loss of articular surface of the first me tatarsal head and base of the proximal phalanx. Using 20 mm cup and cone reamers the head of the first metatarsal and base of the proximal phalanx were prepped. The additional overgrowth of bone was removed with rongeur and discarded. The incision area was flushed with copious also normal saline. A 2- 0 mm drill was used to fenestrate the head of the first metatarsal and base of the proximal phalanx. After fenestration was complete, the autograft that was removed from the prior procedure was placed in the first metatarsal phalangeal joint and the first metatarsal phalangeal joint was placed in a anatomical position with the hallux parallel to the second digit with the toenail facing up, with 10 degrees of dorsiflexion with 10 degrees of valgus rotation, and fixated in this position with a 1.4 mm fixation pin. The [employer] plate was placed per the business applications analyst's recommendation with the rep in the room. #3 distal locking screws were placed. The crossing screw was pr edrilled using a 2.5 mm drill and guide. The depth of the drill was checked with fluoroscopy and depth gauge to the ensure that the far cortex was reached. After the depth was checked, a crossing screw was placed through the plate. Prior to engagement of the far cortex of the 1st metatarsal, the proximal BB tack was removed and further compression was noted across the arthrodesis site of the 1st metatarsal phalangeal joint. Next, #2 locking screws were placed in the proximal plate. All screw lengths were checked clinically as well as with large C-arm fluoroscopy. Attempt was made to put the first metatarsophalangeal joint through range of motion which was unsuccessful due to excellent apposition of the joint during surgery. Next, using the K wire provided a interfrag screw was placed across the joint per the business applications analyst's recommendation using AO technique. Position was checked on AP and lateral radiographs and showed to be in adequate position. At this time, the left lower extremity tourniquet was deflated and reperfusion was noted to the left lower extremity. All bleeders were cauterized and ligated as necessary. All incision was flushed with copious gómez of normal saline. The deep layers was closed with 3-0 Monocryl in running locking suture technique. The subcutaneous layers and the fascia was reapproximated and closed with 3-0 Monocryl in running suture technique and care was made to allow the saphenous nerve to sit free in the soft tissue in the first metatarsal phalangeal joint dorsal incision. The skin was reapproximated and closed with 4-0 nylon in horizontal mattress suture technique as well as with simple interrupted suture technique. The left lower extremity was then cleaned and patted dry. All incisions were dressed with Betadine soaked Adap tic, 4 x 4's, dry sterile dressing, and a 2 layer Burgos AO splint was applied to the left lower extremity. The patient tolerated the procedure and anesthesia well and apparent satisfactory condition and was transported to the PACU for further monitoring prior to discharge home. Vital signs stable and vascular status intact to all digits bilateral. Post Operative Plan: Weightbearing: Nonweightbearing left lower extremity with knee scooter and crutches. Full weightbearing right lower extremity. Antibiotics: 2 g Ancef through the IV DVT Prophylaxis: 81 mg aspirin Sanchez: None Dressing: Betadine soaked Adaptic dry sterile dressing double layer Burgos AO splint 90 degrees. X-Rays: Post-operative films taken on the operating room. Pain Medication: Percocet 5/325, Flexeril 10 mg Follow-up: Patient will follow-up with Dr. Coleman in private office in 1 week. Please call to confirm appointment time and date. Surgical Findings: 1. Evidence of cystic bone changes appreciated in the head of the first metatarsal as well as soft bone to the second metatarsal head. 2. Good anatomical apposition with first metatarsophalangeal joint fusion 3. Patient was able to get ankle past 90 degrees after release of the gastrocnemius aponeurosis. 4. Evidence of 65% joint space loss appreciated between the first metatarsal he ad and base of the proximal phalanx. Stave Log Cut Off Saw Operator glazier helper: Yes Can Worker: Yon Anderson PGY3 Tasks completed by higher level teaching assistant: Closing, Implanting device and Retracting Complications Complications: Yes Complication Details: 1. Patient had evidence of soft bone when implanting hardware to the second metatarsal head. Removal of initial hardware was performed with replacement of the smaller robust hardware that was able to seat, more comfortably in the patient's soft bone. Admit VTE Documentation VTE Present on Admission: No VTE Mechan Device Prophylaxis: SCD's VTE Pharm Prophylaxis ordered?: Yes
--- NOTE | 2024-06-11 07:08 | PCM.PRE.AN2 ---
ASA Classification* ASA Classification ASA Classification: 3 (SEE WRITTEN PRE ANESTHESIA RECORD FOR FULL ASSESSMENT) Assessment & Plan Anesthesia* Anesthesia Assessment Anesthesia Assessment: Discussed sedation and/or anesthesia options, risks, benefits, and alternatives with patient/parents/legal guardian/POA. Questions invited. The patient/parents/legal guardian/POA seems to understand and agrees to proceed with anesthesia plan. Reviewed the physical assessment, medical history, allergy history and patient home medications list prior to surgery/procedure/anesthetic and documented any changes. Performed airway and anesthesia risk assessments. Anesthesia Type Anesthesia Type: General (SEE WRITTEN PRE ANESTHESIA RECORD FOR FULL ASSESSMENT) and Block (SEE WRITTEN PRE ANESTHESIA RECORD FOR FULL ASSESSMENT) Anesthesia Focused Assessment* Temperature: 97.6 F Pulse Rate: 87 Blood Pressure: 139/80 Respiratory Rate: 16 Pulse Ox: 97 Airway Assessment Mouth opens: >3 cm Mallampati Score: II Focused Labs Anesthesia Preop lab: CBC WBC 8.8 K/mm3 (4.4-11.0) 05/25/24 11:48 RBC 3.72 M/mm3 (4.2-5.4) L 05/25/24 11:48 Hgb 11.8 g/dL (12.0-15.0) L 05/25/24 11:48 Hct 37.3 % (37-47) 05/25/24 11:48 Plt Count 318 K/mm3 (150-450) 05/25/24 11:48 CHEMISTRY Potassium 4.0 mmol/L (3.5-5.1) 05/25/24 11:48 Sodium 142 mmol/L (136-145) 05/25/24 11:48 Magnesium 2.3 mg/dL (1.6-2.6) 06/03/23 12:06 BUN 23 mg/dL (7-18) H 05/25/24 11:48 Creatinine 0.82 mg/dL (0.55-1.02) 05/25/24 11:48 Glucose 92 mg/dL (74-106) 05/25/24 11:48 POC Glucose 119 mg/dL (74-106) H 06/11/24 06:06 TSH 1.790 uIU/mL (0.358-3.740) 05/03/24 17:12 COAG PT 13.2 SECONDS (11.7-14.9) 03/31/24 16:09 Pre-Assessment Diagnosis/Proposed Procedure Planned Operative Procedure(s): FIRST METATARSAL PHALANGEAL JOINT ARTHRODESIS LEFT CALCANEAL BONE GRAFT HARVEST WITH ENDOSCOPIC GASTROCNEMICUS RECESSION AND VEIL OSTEOTOMY OF THE SECOND METATACARPAL Anesthesia History Anesthesia History - business rules analyst: Anesthesia History - business rules analyst Hx Hospitalization No 06/08/24 15:55 Any Problems With Anesthesia No 06/08/24 15:55 Cholinesterase deficiency No 06/08/24 15:55 You/Your Family Experience No 06/08/24 15:55 fever (hyperthermia) with Relationship Recent Exposure to Contagious No 06/11/24 06:02 Disease Does patient have nerve No 06/08/24 15:55 stimulator Patient instructed to have device shut off --Does patient have Pacemaker No 06/11/24 06:02 or ICD? When Was Last Pacemaker Check QUESTION #4 FULL TEXT: You/Your Family Experience fever (hyperthermia) with Anesthesia Last Oral Intake Last Oral intake: Last Oral Intake NPO since 23:00 06/11/24 06:02 Meds taken in AM with sips of Yes 06/11/24 06:02 water? Meds patient instructed to take am of surgery PONV PONV - business rules analyst: PONV - business rules analyst Female Yes 06/08/24 15:55 HX of Motion Sickness No 06/08/24 15:55 HX of N/V After Surgery No 06/08/24 15:55 Non-Smoker Yes 06/08/24 15:55 Duration of Surgery greater Yes 06/08/24 15:55 than 60 minutes Number of Risk Factors 3 06/08/24 15:55 PONV Score Moderate Risk 06/08/24 15:55 Height & Weight Height & Weight: Anesthesia: Height & Weight Height 5 ft 6 in 06/11/24 06:02 Weight: 108 kg 06/11/24 06:02 Body Mass Index (BMI) 38.4 06/11/24 06:02 Respiratory Assessment Respiratory Assessment - business rules analyst: Respiratory Tract Infection Hx - business rules analyst Hx Respiratory Tract Infection No 06/08/24 15:55 STOP Sleep Apnea STOP Sleep Apnea - business rules analyst: STOP Sleep Apnea - business rules analyst Hx Hypertension No 06/08/24 15:55 Hx Sleep Apnea Yes 06/08/24 15:55 CPAP Yes 06/08/24 15:55 BIPAP No 06/08/24 15:55 Do you snore loudly (louder than talking or can be heard Do you often feel tired/ fatigued/ sleepy during daytime? Has anyone observed you stop breathing during sleep? STOP Results Positive 06/08/24 15:55 QUESTION #5 FULL TEXT : Do you snore loudly (louder than talking or can be heard through closed doors)? Tobacco Use History Tobacco Use History - business rules analyst: Tobacco Use History - business rules analyst Tobacco Use Smoking Status Never smoker 06/08/24 15:55 Hx Tobacco Use No 06/08/24 15:55 Years Smoking Packs Smoked per Day Smoking Cessation Date was within the last 15 years Hx Smoking Cessation Date Hx Smoking Cessation Counseling Hematologic Medial History Hematologic Hx - business rules analyst: Hematologic Medical Hx - head and neck surgeon Hx of Blood Transfusion No 06/08/24 15:55 Hx of Transfusion in last 3 No 06/08/24 15:55 Months Date of Last Transfusion (if within last 3 months) Ever experience any problems No 06/08/24 15:55 with transfusion(s)? Specify any problems Hx of Preganancy in last 3 No 06/08/24 15:55 Months Nurse Filling Out Transfusion DSCHRIBER 06/08/24 15:55 & Questions: Date: 06/08/24 06/08/24 15:55 Time: 15:59 06/08/24 15:55 Patient unable to answer at this time (ie. confused, unrespo /Reproduction History /Reproductive History - business rules analyst: /Reproductive Hx- business rules analyst Hx Now No 06/08/24 15:55 Gestational Age (in weeks): EDC: Hx Hx Para Hx Section SAB No 06/08/24 15:55 Active Medications Active Medications: Current Medications Generic Name Dose Route Start Last Admin Trade Name Freq PRN Reason Stop Dose Admin Cefazolin Sodium 2 gm/ N/A 20 mls @ 400 mls/hr 06/11/24 07:30 IV 06/11/24 07:32 PREOP ONE Lactated Ringer's 1,000 mls @ 15 mls/hr 06/11/24 05:45 06/11/24 06:11 IV 06/16/24 19:04 15 mls/hr .Q48H FERMÍN Administration Protocol [facility] Medical History Alcohol use History of steroid therapy Fatty liver History of IBS History of edema Abrasion, left knee, initial encounter Contusion of left knee Contusion of right middle finger Strain of right middle finger Chest wall contusion Sternum pain Health care maintenance Flu vaccine need Dermatitis Muscular abdominal pain in right flank Sjogren's disease Breast cancer screening Malaise and fatigue Anemia Fatty liver disease, nonalcoholic Wears glasses Thyroid disease Rheumatoid arthritis Injury of head and neck Difficulty swallowing Gastric reflux Non-smoker Asthma CPAP (continuous positive airway pressure) dependence History of echocardiogram History of stress test Cardiology follow-up encounter History of colon polyps Obesity Abnormal laboratory test Constipation Unsteady gait Borderline type 2 diabetes mellitus Macromastia Screening for diabetes mellitus BMI greater than 40 Anxiety and depression Radiculopathy Hypokalemia COVID-19 virus detected (05/09/20) Chronic neck and back pain Difficulty balancing when standing Shoulder pain Adrenal insufficiency SOB (shortness of breath) Obesity Essential (primary) hypertension Airway polyps Adenomatous polyps FH: colon cancer in first degree relative <60 years old Sinusitis Otitis media Limb weakness Fatigue Acute bronchitis Hypopituitarism Dyspnea Osteopenia Osteoarthritis CSA (central sleep apnea) Basal cell carcinoma Vitamin D deficiency Arthritis Hypersomnia Cellulitis of right lower leg MGUS (monoclonal gammopathy of unknown significance) Hypothyroidism Home Medications ?Medication ?Instructions ?Recorded ?Last Taken ?Type folic acid 0.8 mg capsule 0.8 mg PO BID supplement 07/14/18 04/14/24 History hydroxychloroquine 200 mg tablet 200 mg PO BID ra 09/01/18 06/11/24 History (Plaquenil) cyclobenzaprine 10 mg tablet 10 mg PO QHS PRN pain 12/22/19 01/12/20 History methotrexate sodium 25 mg/mL 25 mg subcut QWEEK 09/25/20 04/04/24 History injection solution fluticasone propionate 110 1 puff inhalation BID PRN ALLERGIES 06/12/21 10/24/21 09:00 History mcg/actuation HFA aerosol inhaler (Flovent HFA) magnesium oxide 500 mg capsule 500 mg PO DAILY 09/11/21 04/13/24 History prednisone 5 mg tablet 5 mg PO DAILY #14 tabs 02/01/22 06/11/24 Rx Handicap Placard #1 ea 11/22/22 Unknown Rx hydrocodone-acetaminophen 5-325mg 1 tab PO Q6H PRN pain 11/22/22 04/11/24 History 5mg-325mg cholecalciferol (vitamin D3) 1,250 1,250 mcg PO .EVERY OTHER WEEK 03/05/23 04/04/24 History mcg (50,000 unit) capsule ipratropium 0.5 mg-albuterol 3 mg 3 ml inhalation Q4H PRN PRN SOB 05/20/23 Unknown Rx (2.5 mg base)/3 mL nebulization &/OR WHEEZING #180 mL soln potassium chloride 10 mEq 10 meq PO BID 07/22/23 04/14/24 History capsule,extended release ursodiol 300 mg capsule 300 mg PO BID #180 caps 12/17/23 04/14/24 Rx sulfasalazine 500 mg 1 g (2 x 500 mg) PO BID 90 days 01/23/24 04/14/24 Rx tablet,delayed release #360 tabs venlafaxine 37.5 mg tablet 37.5 mg PO QHS 04/13/24 04/14/24 History pantoprazole 40 mg tablet,delayed 40 mg PO DAILY 05/17/24 06/11/24 History release thyroid (pork) 15 mg tablet 30 mg PO DAILY 05/17/24 Unknown History ([place] Thyroid) ferrous sulfate 325 mg (65 mg 325 mg PO PRN PRN LOW IRON 06/08/24 Unknown History iron) tablet thyroid (pork) 60 mg tablet 60 mg PO SUSA 06/08/24 Unknown History ([place] Thyroid) vitamin E (dl, acetate) 180 mg 180 mg PO BID 06/08/24 Unknown History (400 unit) capsule Allergy/AdvReac Type Severity Reaction Status Date / Time milk Allergy Mild Diarrhea Verified 06/11/24 06:01 phenytoin sodium (From Allergy Mild Rash Verified 06/11/24 06:01 Dilantin) phenytoin sodium extended Allergy Mild Rash Verified 06/11/24 06:01 (From Dilantin) ketorolac tromethamine (From Allergy Anaphylaxis Verified 06/11/24 06:01 Toradol) melon Allergy NEEDS Verified 06/11/24 06:01 FOLLOW-UP morphine AdvReac Severe Other Verified 06/11/24 06:01 Family History Father Cancer father passed of lung CA at 55 Mother Dementia Osteoarthritis COPD (chronic obstructive pulmonary disease) Brother Myocardial infarction, Onset Age: 49 Aunt Multiple sclerosis Sister Colon cancer Breast cancer Aunt Celiac disease Surgical History History of cardiac catheterization Hx of colonoscopy Hx of oral surgery History of tonsillectomy and adenoidectomy S/P knee surgery H/O dilation and curettage History of cataract surgery History of orthopedic surgery History of carpal tunnel release S/P bunionectomy S/P excision of Molina's neuroma History of carpal tunnel surgery History of cholecystectomy History of hysterectomy History of 2 sections Status post total right knee replacement Social History Smoking Status: Never smoker alcohol intake: current alcohol intake frequency: a few times a month Alcohol type: wine substance use type: does not use what type of physical activity do you participate in: walking, bicycling and swimming frequency: 3-4 times per week 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
[2024-06-11] MEDS: Cefazolin 2 GM in Syringe IV (07:38)
[2024-06-11] MEDS: Bupivacaine Mpf 0.5% 30 ML VIAL (07:46)
--- NOTE | 2024-06-11 07:51 | RAD_ITS ---
HISTORY: PAIN. TECHNIQUE: Left foot 10 spot images. COMPARISON: XR 11/27/2023. FINDINGS: OSSEOUS STRUCTURES: Osteotomy and fixation hardware of the first and second metatarsals with overlying instruments FLUOROSCOPY TIME:128.4 seconds. RADIATION DOSE: 1.61 mGy. RAD/Foot 2 Views IMPRESSION: . Image guidance for left foot procedure. Electronically Signed: Lanny Smith MD at 13:29 EDT ,
--- NOTE | 2024-06-11 10:10 | PCM.POST.ANE ---
Anesthesia: Postop Eval I Current Vital Signs Temperature: 97.1 F Pulse Rate: 86 Blood Pressure: 112/59 Respiratory Rate: 16 Pulse Ox: 93 Assessment Airway patent: Yes Spontaneous unlabored respirations: Yes nausea: No Vomiting: No Anesthesia Complication: No Fluid Hydration Crystalloid volume administer (ml): 1,000 Total IV fluid infused: 1,000 Progress Note Anesthesia document: Postop Eval 1 completed: Yes
[2024-06-11 11:04] LABS: Bedside Glucose 170 mg/dL (74-106)
--- NOTE | 2024-06-11 11:04 | PCM.POST.ANE ---
Anesthesia: Postop Eval I Current Vital Signs Temperature: 97.1 F Pulse Rate: 86 Blood Pressure: 112/59 Respiratory Rate: 16 Pulse Ox: 94 Oxygen Delivery Method: Room Air Assessment Airway patent: Yes Spontaneous unlabored respirations: Yes Mental status: Awake and Calm nausea: No Vomiting: No Anesthesia Complication: No Fluid Hydration Crystalloid volume administer (ml): 1,500 Total IV fluid infused: 1,500 Progress Note Anesthesia document: Postop Eval 1 completed: Yes
--- NOTE | 2024-06-11 11:56 | SUR.PHASEII ---
patient states she is unable to use crutches or walker. States she knows how to use them but does not think she can actually use them. This nurse would like Physical therapy to see her before discharge. Also states that she has all the discharge medication already at home and only plans to get the percocet filled. Would like the Percocet sent to [facility] pharmacy and not [facility] pharmacy. Called in to OR 1 and relayed info to Dr Coleman. States ok for PT to eval and treat post-op. Acknowledged that she will only be getting the percocet filled.
--- NOTE | 2024-06-11 12:10 | SUR.PHASEII ---
call light on, pts surgical incision is bleeding, dressing saturated through the cast. dr mcmahon notified, he came out of OR to evaluate patient he is replacing entire cast.
== END 2024-06-11 13:14 | disposition home or self-care (01) ==
LOC: SDC 05:47 → AC 05:49
PROVIDERS: PCP Family Medicine Geriatric Medicine; Referring Provider Podiatrist Foot & Ankle Surgery; Visit Provider Podiatrist Foot & Ankle Surgery
PROC: (CPT 28308; principal; 2024-06-11 07:15)
DX: M20.22 Hallux rigidus, left foot (principal); M05.772 Rheumatoid arthritis with rheumatoid factor of left ankle and foot without organ or systems involvement; M19.072 Primary osteoarthritis, left ankle and foot; M67.02 Short Achilles tendon (acquired), left ankle; M20.42 Other hammer toe(s) (acquired), left foot; I10 Essential (primary) hypertension; E03.9 Hypothyroidism, unspecified; K21.9 Gastro-esophageal reflux disease without esophagitis; Z79.82 Long term (current) use of aspirin; Z79.890 Hormone replacement therapy; Z79.899 Other long term (current) drug therapy
CPT/HCPCS: 28308; 28750; 20900; 29999; 64450; 73620; 76000; 82962; 97162; C1713; J7120; J2405

== ENCOUNTER 2024-06-12 17:16 | Observation (INO) | payer MEDICARE, OTHER, SELFPAY ==
[2024-06-12 17:17] VITALS: BP 178/79; PULSE 83; RESP 16; TEMP 36.8; O2SAT 99; BMI 41.9
[2024-06-12 18:14] VITALS: BP 167/89; PULSE 87; RESP 18; O2SAT 99
--- NOTE | 2024-06-12 20:03 | EKG12_ITS ---
Test Reason : DYSRHYTHMIA Blood Pressure : */* mmHG Vent. Rate : 81 BPM Atrial Rate : 81 BPM P-R Int : 140 ms QRS Dur : 80 ms QT Int : 386 ms P-R-T Axes : 30 50 79 degrees QTcB Int : 448 ms Normal sinus rhythm Nonspecific ST abnormality Abnormal ECG Confirmed by CELI RENO, SHARMIN ([id number]), editorial clerk ALLEGRA GREENFIELD ([id number]) on 06/14/2024 9:25:43 AM Referred By: Confirmed By: SHARMIN ALATORRE MD
[2024-06-12] MEDS: oxyCODONE 5 MG Tablet PO (20:08)
[2024-06-12 20:20] LABS: Absolute Lymphocyte Count 5.22 X10^3/uL (0.83-4.51); Absolute Neutrophil Count 4.7 X10^3/uL (2.0-7.7); Basophil# 0.05 X10^3/uL; Basophil% 0.5 % (0-1); Eosinophil# 0.12 X10^3/uL; Eosinophils% 1.1 % (0-5); Hematocrit 35.8 % (37-47); Hemoglobin 11.8 g/dL (12.0-15.0); Lymphocyte # 5.22 X10^3/ul (0.83-4.51); Lymphocyte % 47.7 % (19-41); Mean Corpuscular Hgb 32.2 pg (27.0-32.0); Mean Corpuscular Volume 97.8 fL (81-99); Mean Platelet Vol. 9.3 fl (6.2-12.0); Monocyte# 0.79 X10^3/uL; Monocyte% 7.2 % (0-10); NRBC Flagged by Analyzer 0 % (0-5); Neutrophil # 4.72 X10^3/uL (2.7-7.7); Neutrophil % 43.1 % (47-70); POSITIVE DIFFERENTIAL YES; Platelet Count 298 K/mm3 (150-450); RBC Distribution Width CV 12.9 % (11.6-14.6); RBC Distribution Width SD 45.6 fl (35.1-43.9); Red Blood Count 3.66 M/mm3 (4.2-5.4); White Blood Count 10.9 K/mm3 (4.4-11.0)
[2024-06-12 20:23] LABS: Differential Indicated SCAN CRITERIA MET
[2024-06-12 20:37] LABS: Anion Gap 5 (5-15); BUN 17 mg/dL (7-18); BUN/Creat Ratio 25.1 RATIO (10-20); CPK Total, Creatine Kinase 366 U/L (26-192); Calcium,Total 8.9 mg/dL (8.5-10.1); Chloride 112 mmol/L (98-107); Creatinine, Serum 0.68 mg/dL (0.55-1.02); EST Glomerular Filtration Rate 91 mL/min (>60); Est Glom Filt Rate - Afr Amer 110 mL/min (>60); Estimated Creatinine Clearance 81.38 ml/min; Glucose 88 mg/dL (74-106); Potassium 3.8 mmol/L (3.5-5.1); Sodium Level 143 mmol/L (136-145)
--- NOTE | 2024-06-12 20:40 | EDS_ITS ---
HPI History of Present Illness Chief Complaint: Weakness Informant: patient Narrative Narrative: Patient is a 73 year old female with extensive past medical history including type 2 diabetes mellitus, adrenal insufficiency, Sjogren's disease, chronic back pain who underwent left foot surgery with Dr. Jacob yesterday. She was discharged home but her son who is going to help take care of her Jayne with a fever and her other family was or not able to adequately take care of her. She has not been able to eat or really drink today because no one's been able to help her and she cannot really get out of bed. She states she has a lot of neck and shoulder debility from her other comorbidities and this is limiting her using a type of walker [facility] Medical History Alcohol use History of steroid therapy Fatty liver History of IBS History of edema Abrasion, left knee, initial encounter Contusion of left knee Contusion of right middle finger Strain of right middle finger Chest wall contusion Sternum pain Health care maintenance Flu vaccine need Dermatitis Muscular abdominal pain in right flank Sjogren's disease Breast cancer screening Malaise and fatigue Anemia Fatty liver disease, nonalcoholic Wears glasses Thyroid disease Rheumatoid arthritis Injury of head and neck Difficulty swallowing Gastric reflux Non-smoker Asthma CPAP (continuous positive airway pressure) dependence History of echocardiogram History of stress test Cardiology follow-up encounter History of colon polyps Obesity Abnormal laboratory test Constipation Unsteady gait Borderline type 2 diabetes mellitus Macromastia Screening for diabetes mellitus BMI greater than 40 Anxiety and depression Radiculopathy Hypokalemia COVID-19 virus detected (05/09/20) Chronic neck and back pain Difficulty balancing when standing Shoulder pain Adrenal insufficiency SOB (shortness of breath) Obesity Essential (primary) hypertension Airway polyps Adenomatous polyps FH: colon cancer in first degree relative <60 years old Sinusitis Otitis media Limb weakness Fatigue Acute bronchitis Hypopituitarism Dyspnea Osteopenia Osteoarthritis CSA (central sleep apnea) Basal cell carcinoma Vitamin D deficiency Arthritis Hypersomnia Cellulitis of right lower leg MGUS (monoclonal gammopathy of unknown significance) Hypothyroidism Home Medications ?Medication ?Instructions ?Recorded ?Last Taken ?Type folic acid 0.8 mg capsule 0.8 mg PO BID supplement 07/14/18 04/14/24 History hydroxychloroquine 200 mg tablet 200 mg PO BID ra 09/01/18 06/11/24 History (Plaquenil) cyclobenzaprine 10 mg tablet 10 mg PO QHS PRN pain 12/22/19 01/12/20 History methotrexate sodium 25 mg/mL 25 mg subcut QWEEK 09/25/20 04/04/24 History injection solution fluticasone propionate 110 1 puff inhalation BID PRN ALLERGIES 06/12/21 10/24/21 09:00 History mcg/actuation HFA aerosol inhaler (Flovent HFA) magnesium oxide 500 mg capsule 500 mg PO DAILY 09/11/21 04/13/24 History prednisone 5 mg tablet 5 mg PO DAILY #14 tabs 02/01/22 06/11/24 Rx Handicap Placard #1 ea 11/22/22 Unknown Rx hydrocodone-acetaminophen 5-325mg 1 tab PO Q6H PRN pain 11/22/22 04/11/24 History 5mg-325mg cholecalciferol (vitamin D3) 1,250 1,250 mcg PO .EVERY OTHER WEEK 03/05/23 04/04/24 History mcg (50,000 unit) capsule ipratropium 0.5 mg-albuterol 3 mg 3 ml inhalation Q4H PRN PRN SOB 05/20/23 Unknown Rx (2.5 mg base)/3 mL nebulization &/OR WHEEZING #180 mL soln potassium chloride 10 mEq 10 meq PO BID 07/22/23 04/14/24 History capsule,extended release ursodiol 300 mg capsule 300 mg PO BID #180 caps 12/17/23 04/14/24 Rx sulfasalazine 500 mg 1 g (2 x 500 mg) PO BID 90 days 01/23/24 04/14/24 Rx tablet,delayed release #360 tabs venlafaxine 37.5 mg tablet 37.5 mg PO QHS 04/13/24 04/14/24 History pantoprazole 40 mg tablet,delayed 40 mg PO DAILY 05/17/24 06/11/24 History release thyroid (pork) 15 mg tablet 30 mg PO DAILY 05/17/24 Unknown History ([place] Thyroid) ferrous sulfate 325 mg (65 mg 325 mg PO PRN PRN LOW IRON 06/08/24 Unknown History iron) tablet thyroid (pork) 60 mg tablet 60 mg PO SUSA 06/08/24 Unknown History ([place] Thyroid) vitamin E (dl, acetate) 180 mg 180 mg PO BID 06/08/24 Unknown History (400 unit) capsule ascorbic acid (vitamin C) 1,000 mg 1 g PO DAILY 90 days #90 tabs 06/11/24 Unknown Rx tablet (Vitamin C) aspirin 81 mg tablet,delayed 81 mg PO DAILY 30 days #30 tabs 06/11/24 Unknown Rx release calcium 500 mg (as 1 tab PO DAILY 90 days #90 tabs 06/11/24 Unknown Rx carbonate)-vitamin D3 15 mcg (600 unit) tablet (Os-William 500 + D3) docusate sodium 100 mg capsule 100 mg PO DAILY 10 days #10 caps 06/11/24 Unknown Rx (Colace) doxycycline hyclate 100 mg capsule 100 mg PO DAILY 2 weeks #14 caps 06/11/24 Unknown Rx oxycodone-acetaminophen 5 mg-325 1 tab PO Q6H pain 7 days #28 tabs 06/11/24 Unknown Rx mg tablet (Endocet) Allergy/AdvReac Type Severity Reaction Status Date / Time milk Allergy Mild Diarrhea Verified 06/11/24 06:01 phenytoin sodium (From Allergy Mild Rash Verified 06/11/24 06:01 Dilantin) phenytoin sodium extended Allergy Mild Rash Verified 06/11/24 06:01 (From Dilantin) ketorolac tromethamine (From Allergy Anaphylaxis Verified 06/11/24 06:01 Toradol) melon Allergy NEEDS Verified 06/11/24 06:01 FOLLOW-UP morphine AdvReac Severe Other Verified 06/11/24 06:01 Family History Father Cancer father passed of lung CA at 55 Mother Dementia Osteoarthritis COPD (chronic obstructive pulmonary disease) Brother Myocardial infarction, Onset Age: 49 Aunt Multiple sclerosis Sister Colon cancer Breast cancer Aunt Celiac disease Surgical History History of cardiac catheterization Hx of colonoscopy Hx of oral surgery History of tonsillectomy and adenoidectomy S/P knee surgery H/O dilation and curettage History of cataract surgery History of orthopedic surgery History of carpal tunnel release S/P bunionectomy S/P excision of Molina's neuroma History of carpal tunnel surgery History of cholecystectomy History of hysterectomy History of 2 sections Status post total right knee replacement Social History Smoking Status: Never smoker alcohol intake: current alcohol intake frequency: a few times a month Alcohol type: wine substance use type: does not use what type of physical activity do you participate in: walking, bicycling and swimming frequency: 3-4 times per week 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 ED Constitutional Constitutional ED: Denies chills or fever(s) Cardiovascular Cardiovascular: Denies chest pain Gastrointestinal Gastrointestinal: Denies nausea or vomiting Musculoskeletal Musculoskeletal: Reports arthralgias, myalgias and neck pain Integumentary Denies rash Neurologic Neurologic: Reports weakness; Denies paresthesias Psychiatric Psychiatric: Reports anxiety EXAM Physical Exam Const Vital Signs: 06/12/24 17:17 06/12/24 18:14 06/12/24 18:54 Temperature 98.2 F Temperature Source Oral Pulse Rate 83 87 Respiratory Rate 16 18 Respiratory Effort Normal Non-Labored Respiratory Pattern Normal Blood Pressure 178/79 H 167/89 H Blood Pressure Mean 112 115 Pulse Ox 99 99 Oxygen Delivery Method Room Air Room Air Positive well nourished and well developed General Appearance ED: well developed and NAD HEENT Reports moist mucous membranes Eyes PERRL Neck supple and no JVD Chest Wall inspection of chest normal Resp normal respiratory effort and clear to auscultation bilaterally Cardio regular rate and regular rhythm Extremity Extremity Narrative: Left lower extremity is in soft cast consistent with having surgery on her foot yesterday Neuro oriented x3 Sensorium / Orientation: alert Motor Exam: general weakness Psych mental status grossly normal Mood & Affect: anxious Skin no rashes or lesions noted Skin Narrative: As patient has had surgery yesterday her dressing on her foot is not taken down. MDM MDM MDM Narrative Medical decision making narrative: Patient is evaluated for generalized weakness and debility. She had was also pretty extensive left foot surgery yesterday. She thought that she would be able to function at home with help of her son but her son has fever and her other family members are not able to adequately help her. She states that she cannot really use the knee scooter she has and she cannot transfer herself because of pre-existing neck and shoulder weakness/pain from her other comorbidities. Patient is hemodynamically stable in the emergency room. She is mildly hypertensive. Low suspicion for adrenal crisis at this time. Lab work largely normal and stable. She has a mild elevation of her CK which is pretty nonspecific. No signs of acute infection. Will be admitted for debility and evaluation by PT OT. Is given oxycodone for pain control. Case is discussed with her surgeon, Dr. Coleman who will accept the patient. I also discussed the case with hospitalist who will be on consult Lab Data Attestation: I reviewed the patient's lab results. Labs: Laboratory Results - last 24 hr 06/12/24 06/12/24 19:48 20:35 WBC 10.9 RBC 3.66 L Hgb 11.8 L Hct 35.8 L MCV 97.8 MCH 32.2 H MCHC 33.0 RDW Std Deviation 45.6 H RDW Coeff of Rosamaria 12.9 Plt Count 298 MPV 9.3 Immature Gran % (Auto) 0.400 Neut % (Auto) 43.1 L Lymph % (Auto) 47.7 H Pierce % (Auto) 7.2 Eos % (Auto) 1.1 Baso % (Auto) 0.5 Absolute Neuts (auto) 4.7 Absolute Lymphs (auto) 5.22 H Nucleated RBC % 0 Differential Comment SCANNED Sodium 143 Potassium 3.8 Chloride 112 H Carbon Dioxide 26.0 Anion Gap 5 BUN 17 Creatinine 0.68 Estim Creat Clear Calc 81.38 Est GFR (MDRD) Af Amer 110 Est GFR (MDRD) Non-Af 91 BUN/Creatinine Ratio 25.1 H Glucose 88 Calcium 8.9 Total Creatine Kinase 366 H Urine Color Yellow Urine Clarity Clear Urine pH 6.0 Ur Specific [place] 1.010 Urine Protein Negative Urine Glucose (UA) Normal Urine Ketones 5 H Urine Occult Blood Negative Urine Nitrite Negative Urine Bilirubin Negative Urine Urobilinogen Normal Ur Leukocyte Esterase 25 H Urine RBC 0 SEEN Urine WBC 0-5 SEEN Ur Squamous Epith Cells 0-5 SEEN Urine Bacteria RARE Urine Mucus 0 SEEN Rhythm Strip Rhythm Strip: Sinus Rhythm Rate: 81 Ectopy: None EKG Initial EKG: Attestation: I personally reviewed and interpreted this EKG as follows: Interpretation: Sinus Rhythm Comments: Normal sinus rhythm rate of 81 bpm Normal axis Normal intervals Normal ST segments Compared to prior EKG on 01/13/20, patient is no longer tachycardic and no other acute changes Management Discussion w/another healthcare provider: Hospitalist and Other (Podiatry ) Discharge Plan Dx/Rx/DC Orders Clinical Impression: Debility, Postoperative pain of extremity, Generalized weakness Disposition Disposition: Acute Care Hospital [facility] Discharge Date/Time: 06/12/24 21:51
[2024-06-12 20:42] LABS: Mucous, Urine 0 SEEN /hpf (<or=2+); Red Blood Cells-Urine 0 SEEN /hpf (0-5)
[2024-06-12 20:43] LABS: Color, Urine Yellow (Yellow); Glucose, Dipstick Normal (Normal); Ketone-Dipstick 5 mg/dl (Negative); Leukocyte Esterase-Dipstick 25 /ul (Negative); Nitrite-Dipstick Negative (Negative); Occult Blood-Urine Negative /ul (Negative); Protein-Dipstick Negative (Negative); Urine Bilirubin Dipstick Negative (Negative); Urine Clarity Clear (Clear); Urine Urobilinogen Normal (Normal)
[2024-06-12 20:58] LABS: Differential Comment SCANNED
--- NOTE | 2024-06-12 20:58 | PCM.CONS.GEN ---
Assessment & Plan Assessment/Plan (1) Generalized weakness: (2) Postoperative pain of extremity: (3) Debility: (4) Arthritis of first metatarsophalangeal (MTP) joint of left foot: (5) Methotrexate, emt intermediate, current use: (6) Chronic back pain: QUALIFIERS: Back pain laterality: unspecified Back pain location: low back pain Sciatica presence: without sciatica Qualified Code(s): M54.50 - Low back pain, unspecified; G89.29 - Other chronic pain (7) MGUS (monoclonal gammopathy of unknown significance): (8) Borderline type 2 diabetes mellitus: PLAN: Plan 1. Generalized Weakness with patient POD#1 after Left Foot Surgery by Dr. Coleman with uncontrolled Postoperative Pain and Fall at home with listed allergies to morphine plus Toradol (anaphylaxis) - PT/OT and Case Management to consult and treat on-rounds in the AM with help appreciated in advance. Give Tylenol prn for [id number] (level 1-5/10) pain or fever. Continue Endocet prn for severe (level 6-10/10) pain. 2. OA; with chronic pain syndrome in the back & neck and chronic debility causing her to mobilize with a walker complicating #1 - Noted. Patient would likely benefit from formal rehabilitation. 3. Morbid Obesity; with BMI of 42.9 this admission compounding #1 & #2 - Weight loss will be recommended. Resume nocturnal CPAP as previous. 4. Essential hypertension - Maintain home regimen plus give Hydralazine IV prn for systolic blood pressure > 160 mmHg. 5. Hypothyroidism - Continue thyroid hormone replacement as before and check TSH. 6. NAFLD - Stable. 7. DM-2; of unknown control - ADA diet. FSBS q. AC/HS plus SSI. Check HgbA1c to objectively asses quality of diabetic control. 8. History of Hypopituitarism and Adrenal Insufficiency - Noted. 9. Sjogren's disease - Resume home medications. 10. RA - Stable with no evidence of acute flare. 11. History of MGUS (11/2023) - Noted. 12. History of asthma - Stable with no evidence of acute flare at this time. Give nebulizers prn. 13. FAITH - Stable with hemoglobin of 11.8 g/dL present on admission. 14. History of COVID-19 (2019) - Noted. 15. History of basal cell carcinoma - Noted. 16. History of RLE cellulitis - Noted. 17. Depression with anxiety - Continue current agents plus give prn Xanax for breakthrough symptoms. 18. History of adenomatous colon polyps - Noted. 19. History of IBS - Stable. 20. GERD; with history of Roman's esophagus - Resume PPI as previous. 21. Listed allergy to Toradol (anaphylaxis) - We will avoid this agent. 22. Listed allergy to Dilantin (rash) - Noted. 23. DVT prophylaxis - Give Heparin 5,000 U sq TID plus RLE SCD. Total time: Approximately 55 minutes. HPI Consult Data Date of Consult: 06/13/24 Attending Care Provider: Dr. Coleman HPI Narrative Reason for Consultation: Medical Management after Left Foot Surgery. HPI Narrative: MITCHELL DEJESUS, is a 73 F with a past medical history of essential hypertension, hypothyroidism, morbid obesity; with BMI of 41.9 this admission, central sleep apnea; on CPAP, NAFLD, DM-2; of unknown control, hypopituitarism, adrenal insufficiency, Sjogren's disease, RA, 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 Coleman who presents to [facility] ER complaining of generalized weakness. Ms. Dejesus reports her symptoms began approximately one day prior to admission after her surgery when her son was unable to provide care for her as anticipated due to a fever and malaise. She then decided to come back to the hospital because she cannot care for herself at home as she has to use a knee scooter to keep weight off of her foot with patient stating she is having difficulty using the device resulting in her falling at home. She denies associated fever, chills, nausea, vomiting, diarrhea, constipation, chest pain or SOB. In the ER she was diagnosed with Generalized Weakness after recent Left foot surgery and she was then admitted to the podiatry service with medicine consulted to see patient for medical management. Thank you for allowing us to participate in the care of your patient. [facility] Medical History Alcohol use History of steroid therapy Fatty liver History of IBS History of edema Abrasion, left knee, initial encounter Contusion of left knee Contusion of right middle finger Strain of right middle finger Chest wall contusion Sternum pain Health care maintenance Flu vaccine need Dermatitis Muscular abdominal pain in right flank Sjogren's disease Breast cancer screening Malaise and fatigue Anemia Fatty liver disease, nonalcoholic Wears glasses Thyroid disease Rheumatoid arthritis Injury of head and neck Difficulty swallowing Gastric reflux Non-smoker Asthma CPAP (continuous positive airway pressure) dependence History of echocardiogram History of stress test Cardiology follow-up encounter History of colon polyps Obesity Abnormal laboratory test Constipation Unsteady gait Borderline type 2 diabetes mellitus Macromastia Screening for diabetes mellitus BMI greater than 40 Anxiety and depression Radiculopathy Hypokalemia COVID-19 virus detected (05/09/20) Chronic neck and back pain Difficulty balancing when standing Shoulder pain Adrenal insufficiency SOB (shortness of breath) Obesity Essential (primary) hypertension Airway polyps Adenomatous polyps FH: colon cancer in first degree relative <60 years old Sinusitis Otitis media Limb weakness Fatigue Acute bronchitis Hypopituitarism Dyspnea Osteopenia Osteoarthritis CSA (central sleep apnea) Basal cell carcinoma Vitamin D deficiency Arthritis Hypersomnia Cellulitis of right lower leg MGUS (monoclonal gammopathy of unknown significance) Hypothyroidism Home Medications ?Medication ?Instructions ?Recorded ?Last Taken ?Type folic acid 0.8 mg capsule 0.8 mg PO BID supplement 07/14/18 04/14/24 History hydroxychloroquine 200 mg tablet 200 mg PO BID ra 09/01/18 06/11/24 History (Plaquenil) cyclobenzaprine 10 mg tablet 10 mg PO QHS PRN pain 12/22/19 01/12/20 History methotrexate sodium 25 mg/mL 25 mg subcut QWEEK 09/25/20 04/04/24 History injection solution fluticasone propionate 110 1 puff inhalation BID PRN ALLERGIES 06/12/21 10/24/21 09:00 History mcg/actuation HFA aerosol inhaler (Flovent HFA) magnesium oxide 500 mg capsule 500 mg PO DAILY 09/11/21 04/13/24 History prednisone 5 mg tablet 5 mg PO DAILY #14 tabs 02/01/22 06/11/24 Rx Handicap Placard #1 ea 11/22/22 Unknown Rx hydrocodone-acetaminophen 5-325mg 1 tab PO Q6H PRN pain 11/22/22 04/11/24 History 5mg-325mg cholecalciferol (vitamin D3) 1,250 1,250 mcg PO .EVERY OTHER WEEK 03/05/23 04/04/24 History mcg (50,000 unit) capsule ipratropium 0.5 mg-albuterol 3 mg 3 ml inhalation Q4H PRN PRN SOB 05/20/23 Unknown Rx (2.5 mg base)/3 mL nebulization &/OR WHEEZING #180 mL soln potassium chloride 10 mEq 10 meq PO BID 07/22/23 04/14/24 History capsule,extended release ursodiol 300 mg capsule 300 mg PO BID #180 caps 12/17/23 04/14/24 Rx sulfasalazine 500 mg 1 g (2 x 500 mg) PO BID 90 days 01/23/24 04/14/24 Rx tablet,delayed release #360 tabs venlafaxine 37.5 mg tablet 37.5 mg PO QHS 04/13/24 04/14/24 History pantoprazole 40 mg tablet,delayed 40 mg PO DAILY 05/17/24 06/11/24 History release thyroid (pork) 15 mg tablet 30 mg PO DAILY 05/17/24 Unknown History ([place] Thyroid) ferrous sulfate 325 mg (65 mg 325 mg PO PRN PRN LOW IRON 06/08/24 Unknown History iron) tablet thyroid (pork) 60 mg tablet 60 mg PO SUSA 06/08/24 Unknown History ([place] Thyroid) vitamin E (dl, acetate) 180 mg 180 mg PO BID 06/08/24 Unknown History (400 unit) capsule ascorbic acid (vitamin C) 1,000 mg 1 g PO DAILY 90 days #90 tabs 06/11/24 Unknown Rx tablet (Vitamin C) aspirin 81 mg tablet,delayed 81 mg PO DAILY 30 days #30 tabs 06/11/24 Unknown Rx release calcium 500 mg (as 1 tab PO DAILY 90 days #90 tabs 06/11/24 Unknown Rx carbonate)-vitamin D3 15 mcg (600 unit) tablet (Os-[place] 500 + D3) docusate sodium 100 mg capsule 100 mg PO DAILY 10 days #10 caps 06/11/24 Unknown Rx (Colace) doxycycline hyclate 100 mg capsule 100 mg PO DAILY 2 weeks #14 caps 06/11/24 Unknown Rx oxycodone-acetaminophen 5 mg-325 1 tab PO Q6H pain 7 days #28 tabs 06/11/24 Unknown Rx mg tablet (Endocet) Allergy/AdvReac Type Severity Reaction Status Date / Time milk Allergy Mild Diarrhea Verified 06/11/24 06:01 phenytoin sodium (From Allergy Mild Rash Verified 06/11/24 06:01 Dilantin) phenytoin sodium extended Allergy Mild Rash Verified 06/11/24 06:01 (From Dilantin) ketorolac tromethamine (From Allergy Anaphylaxis Verified 06/11/24 06:01 Toradol) melon Allergy NEEDS Verified 06/11/24 06:01 FOLLOW-UP morphine AdvReac Severe Other Verified 06/11/24 06:01 Family History Father Cancer father passed of lung CA at 55 Mother Dementia Osteoarthritis COPD (chronic obstructive pulmonary disease) Brother Myocardial infarction, Onset Age: 49 Aunt Multiple sclerosis Sister Colon cancer Breast cancer Aunt Celiac disease Surgical History History of cardiac catheterization Hx of colonoscopy Hx of oral surgery History of tonsillectomy and adenoidectomy S/P knee surgery H/O dilation and curettage History of cataract surgery History of orthopedic surgery History of carpal tunnel release S/P bunionectomy S/P excision of Molina's neuroma History of carpal tunnel surgery History of cholecystectomy History of hysterectomy History of 2 sections Status post total right knee replacement Social History Smoking Status: Never smoker alcohol intake: current alcohol intake frequency: a few times a month Alcohol type: wine substance use type: does not use what type of physical activity do you participate in: walking, bicycling and swimming frequency: 3-4 times per week 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 Eyes: Patient denies changes in vision or discharge from eyes. ENT: Patient denies runny nose, sore throat or ear pain. Resp: Patient denies SOB or cough. CV: Patient denies chest pain, palpitation or heart racing. GI: Patient denies abdominal pain, nausea, vomiting, diarrhea or constipation. : Patient denies dysuria or hematuria. MSK: Patient admits to Right foot pain since surgery. Skin: Patient denies rash, abscess or jaundice. Psych: Patient denies symptoms of uncontrolled depression or anxiety. Neuro: Patient denies headache, paresthesias or focal neurologic deficits. Allergy: Patient denies lip swelling, tongue swelling or urticaria. Hematology: Patient denies easy bleeding or easy bruisability. Endocrinology: Patient denies polyuria, polydipsia and polyphagia. 14 point ROS otherwise negative except for positives noted above in HPI. Physical Exam Const alert, oriented x3 and no apparent distress Constitutional Narrative: Morbidly obese. General Appearance: cooperative HEENT normocephalic, head/scalp atraumatic, hearing grossly normal bilaterally and moist oral mucous membranes Eyes PERRL and EOMs intact bilaterally Neck no lymphadenopathy and supple Resp normal respiratory effort, no retractions, no use of accessory muscles and clear to auscultation bilaterally Cardio regular rate and regular rhythm GI normal to inspection, nondistended, normoactive bowel sounds, soft to palpation, non-tender and non-distended GI Narrative: Morbidly obese. Extremity Extremity Narrative: Evidence of recent Left foot surgery with PHILL wraps in place with no overt signs of infection. Skin Skin Narrative: Patient has no evidence of rash, abscess or jaundice. Neuro oriented x3, CN's II-XII intact bilaterally, moves all extremities and no focal motor deficits Sensorium / Orientation: awake, alert, oriented to person, oriented to place and oriented to time Speech: speech normal Psych Mood & Affect: anxious Medical Records Data Attestation: I reviewed the patient's medical records Lab / Micro Data Attestation: I reviewed the patient's lab results. 06/13/24 04:20 06/12/24 19:48 Labs: Laboratory Results - last 24 hr 06/12/24 19:48: WBC 10.9, RBC 3.66 L, Hgb 11.8 L, Hct 35.8 L, MCV 97.8, MCH 32.2 H, MCHC 33.0, RDW Std Deviation 45.6 H, RDW Coeff of [place] 12.9, Plt Count 298, MPV 9.3, Immature Gran % (Auto) 0.400, Neut % (Auto) 43.1 L, Lymph % (Auto) 47.7 H, [place] % (Auto) 7.2, Eos % (Auto) 1.1, Baso % (Auto) 0.5, Absolute Neuts (auto) 4.7, Absolute Lymphs (auto) 5.22 H, Nucleated RBC % 0, Differential Comment SCANNED, Sodium 143, Potassium 3.8, Chloride 112 H, Carbon Dioxide 26.0, Anion Gap 5, BUN 17, Creatinine 0.68, Estim Creat Clear Calc 81.38, Est GFR (MDRD) Af Amer 110, Est GFR (MDRD) Non-Af 91, BUN/Creatinine Ratio 25.1 H, Glucose 88, Calcium 8.9, Total Creatine Kinase 366 H 06/12/24 20:35: Urine Color Yellow, Urine Clarity Clear, Urine pH 6.0, Ur Specific [place] 1.010, Urine Protein Negative, Urine Glucose (UA) Normal, Urine Ketones 5 H, Urine Occult Blood Negative, Urine Nitrite Negative, Urine Bilirubin Negative, Urine Urobilinogen Normal, Ur Leukocyte Esterase 25 H Charges/Coding Visit Charges Inpatient E&M: [id number] Init Hosp L2
[2024-06-12 21:39] VITALS: BP 135/57; PULSE 85; RESP 16; TEMP 36.7; O2SAT 95
[2024-06-12 21:45] LABS: Bacteria RARE /hpf (None Seen); Squamous Epithelial Cells - UA 0-5 SEEN /hpf (5-10); White Blood Cells 0-5 SEEN /hpf (0-5)
[2024-06-12 21:55] VITALS: BMI 39.4
[2024-06-12 22:02] VITALS: BP 145/71; PULSE 81; RESP 18; TEMP 36.7; O2SAT 100
--- NOTE | 2024-06-12 22:14 | PCM.HP.STD ---
HPI - General General Date of Admission: 06/12/24 Date of Service: 06/12/24 Chief Complaint: Generalized weakness HPI Narrative MITCHELL MENON, is a 73 F with a past medical history of essential hypertension, hypothyroidism, morbid obesity; with BMI of 41.9 this admission, central sleep apnea; on CPAP, NAFLD, DM-2; of unknown control, hypopituitarism, adrenal insufficiency, Sjogren's disease, RA, history of MGUS (11/2023), history of asthma, FAITH, history of COVID-19 (2019), history of basal cell carcinoma, history of RLE cellulitis, depression with anxiety, history of adenomatous colon polyps, history of IBS, GERD; with history of Roman's esophagus, listed allergy to Toradol (anaphylaxis), listed allergy to Dilantin (rash), OA; with chronic pain syndrome in the back & neck Secondary to left lower extremity surgery DOS: 06/11/2024. After the patient was discharged from elective foot surgery she returned home and noticed that she had generalized weakness to the upper extremity causing her to be weak and unable to be nonweightbearing to left lower extremity after surgery. Patient states that she fell at home thus reaching out to her primary doctor who suggested for the patient to return to the emergency room for evaluation admission for retirement facility placement. Patient states that she needs to bear weight on her left lower extremity to be safe as she is a fall risk. Patient does not admit to falls since surgery but states that she feels very unsteady and weak when trying to hold herself up with the knee scooter. Patient is unable to use a walker or crutches as she is weak with her arms and hands. She denies trauma. Denies constitutional symptoms. No other pedal complaints at this time. Patient will be admitted under podiatry services for SNF placement. Social work is consulted for discharge planning. Medicine is consulted for medical management. PT/OT is consulted for optimization and postoperative evaluation. [facility] Medical History Alcohol use History of steroid therapy Fatty liver History of IBS History of edema Abrasion, left knee, initial encounter Contusion of left knee Contusion of right middle finger Strain of right middle finger Chest wall contusion Sternum pain Health care maintenance Flu vaccine need Dermatitis Muscular abdominal pain in right flank Sjogren's disease Breast cancer screening Malaise and fatigue Anemia Fatty liver disease, nonalcoholic Wears glasses Thyroid disease Rheumatoid arthritis Injury of head and neck Difficulty swallowing Gastric reflux Non-smoker Asthma CPAP (continuous positive airway pressure) dependence History of echocardiogram History of stress test Cardiology follow-up encounter History of colon polyps Obesity Abnormal laboratory test Constipation Unsteady gait Borderline type 2 diabetes mellitus Macromastia Screening for diabetes mellitus BMI greater than 40 Anxiety and depression Radiculopathy Hypokalemia COVID-19 virus detected (05/09/20) Chronic neck and back pain Difficulty balancing when standing Shoulder pain Adrenal insufficiency SOB (shortness of breath) Obesity Essential (primary) hypertension Airway polyps Adenomatous polyps FH: colon cancer in first degree relative <60 years old Sinusitis Otitis media Limb weakness Fatigue Acute bronchitis Hypopituitarism Dyspnea Osteopenia Osteoarthritis CSA (central sleep apnea) Basal cell carcinoma Vitamin D deficiency Arthritis Hypersomnia Cellulitis of right lower leg MGUS (monoclonal gammopathy of unknown significance) Hypothyroidism Home Medications ?Medication ?Instructions ?Recorded ?Last Taken ?Type folic acid 0.8 mg capsule 0.8 mg PO BID supplement 07/14/18 04/14/24 History hydroxychloroquine 200 mg tablet 200 mg PO BID ra 09/01/18 06/11/24 History (Plaquenil) cyclobenzaprine 10 mg tablet 10 mg PO QHS PRN pain 12/22/19 01/12/20 History methotrexate sodium 25 mg/mL 25 mg subcut QWEEK 09/25/20 04/04/24 History injection solution fluticasone propionate 110 1 puff inhalation BID PRN ALLERGIES 06/12/21 10/24/21 09:00 History mcg/actuation HFA aerosol inhaler (Flovent HFA) magnesium oxide 500 mg capsule 500 mg PO DAILY 09/11/21 04/13/24 History prednisone 5 mg tablet 5 mg PO DAILY #14 tabs 02/01/22 06/11/24 Rx Handicap Placard #1 ea 11/22/22 Unknown Rx hydrocodone-acetaminophen 5-325mg 1 tab PO Q6H PRN pain 11/22/22 04/11/24 History 5mg-325mg cholecalciferol (vitamin D3) 1,250 1,250 mcg PO .EVERY OTHER WEEK 03/05/23 04/04/24 History mcg (50,000 unit) capsule ipratropium 0.5 mg-albuterol 3 mg 3 ml inhalation Q4H PRN PRN SOB 05/20/23 Unknown Rx (2.5 mg base)/3 mL nebulization &/OR WHEEZING #180 mL soln potassium chloride 10 mEq 10 meq PO BID 07/22/23 04/14/24 History capsule,extended release ursodiol 300 mg capsule 300 mg PO BID #180 caps 12/17/23 04/14/24 Rx sulfasalazine 500 mg 1 g (2 x 500 mg) PO BID 90 days 01/23/24 04/14/24 Rx tablet,delayed release #360 tabs venlafaxine 37.5 mg tablet 37.5 mg PO QHS 04/13/24 04/14/24 History pantoprazole 40 mg tablet,delayed 40 mg PO DAILY 05/17/24 06/11/24 History release thyroid (pork) 15 mg tablet 30 mg PO DAILY 05/17/24 Unknown History ([place] Thyroid) ferrous sulfate 325 mg (65 mg 325 mg PO PRN PRN LOW IRON 06/08/24 Unknown History iron) tablet thyroid (pork) 60 mg tablet 60 mg PO SUSA 06/08/24 Unknown History ([place] Thyroid) vitamin E (dl, acetate) 180 mg 180 mg PO BID 06/08/24 Unknown History (400 unit) capsule ascorbic acid (vitamin C) 1,000 mg 1 g PO DAILY 90 days #90 tabs 06/11/24 Unknown Rx tablet (Vitamin C) aspirin 81 mg tablet,delayed 81 mg PO DAILY 30 days #30 tabs 06/11/24 Unknown Rx release calcium 500 mg (as 1 tab PO DAILY 90 days #90 tabs 06/11/24 Unknown Rx carbonate)-vitamin D3 15 mcg (600 unit) tablet (Os-William 500 + D3) docusate sodium 100 mg capsule 100 mg PO DAILY 10 days #10 caps 06/11/24 Unknown Rx (Colace) doxycycline hyclate 100 mg capsule 100 mg PO DAILY 2 weeks #14 caps 06/11/24 Unknown Rx oxycodone-acetaminophen 5 mg-325 1 tab PO Q6H pain 7 days #28 tabs 06/11/24 Unknown Rx mg tablet (Endocet) Allergy/AdvReac Type Severity Reaction Status Date / Time milk Allergy Mild Diarrhea Verified 06/11/24 06:01 phenytoin sodium (From Allergy Mild Rash Verified 06/11/24 06:01 Dilantin) phenytoin sodium extended Allergy Mild Rash Verified 06/11/24 06:01 (From Dilantin) ketorolac tromethamine (From Allergy Anaphylaxis Verified 06/11/24 06:01 Toradol) melon Allergy NEEDS Verified 06/11/24 06:01 FOLLOW-UP morphine AdvReac Severe Other Verified 06/11/24 06:01 Family History Father Cancer father passed of lung CA at 55 Mother Dementia Osteoarthritis COPD (chronic obstructive pulmonary disease) Brother Myocardial infarction, Onset Age: 49 Aunt Multiple sclerosis Sister Colon cancer Breast cancer Aunt Celiac disease Surgical History History of cardiac catheterization Hx of colonoscopy Hx of oral surgery History of tonsillectomy and adenoidectomy S/P knee surgery H/O dilation and curettage History of cataract surgery History of orthopedic surgery History of carpal tunnel release S/P bunionectomy S/P excision of Molina's neuroma History of carpal tunnel surgery History of cholecystectomy History of hysterectomy History of 2 sections Status post total right knee replacement Social History Smoking Status: Never smoker alcohol intake: current alcohol intake frequency: a few times a month Alcohol type: wine substance use type: does not use what type of physical activity do you participate in: walking, bicycling and swimming frequency: 3-4 times per week 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 Vital Signs Vital Signs Vital Signs: 06/12/24 17:17 06/12/24 18:14 06/12/24 18:54 Temperature 98.2 F Temperature Source Oral Pulse Rate 83 87 Respiratory Rate 16 18 Respiratory Effort Normal Non-Labored Respiratory Pattern Normal Blood Pressure 178/79 H 167/89 H Blood Pressure Mean 112 115 Blood Pressure Source Blood Pressure Position Blood Pressure Location Pulse Ox 99 99 Oxygen Delivery Method Room Air Room Air 06/12/24 21:39 06/12/24 22:02 Temperature 98.1 F 98.1 F Temperature Source Oral Pulse Rate 85 81 Respiratory Rate 16 18 Respiratory Effort Respiratory Pattern Blood Pressure 135/57 H 145/71 H Blood Pressure Mean 83 95 Blood Pressure Source Monitor Blood Pressure Position Semi-Fowlers Blood Pressure Location Right Arm Pulse Ox 95 100 Oxygen Delivery Method Room Air Weight Weight: 107.6 kg Body Mass Index (BMI) 39.4 Physical Exam Narrative Vascular: CFT is brisk to left lower extremity. Nonpitting edema appreciated to the distal and proximal dressing. No strikethrough is appreciated. Neurologic: Light touch intact. Dermatologic: Postoperative dressing appreciated left lower extremity. No strikethrough. Musculoskeletal: Muscle strength deferred secondary to postoperative changes. Active and passive range of motion of lesser digits is pain-free. No range of motion to the left first metatarsophalangeal joint secondary to arthrodesis. No pain with calf compression. Results Lab / Micro Data 06/12/24 19:48 06/12/24 19:48 Labs: Laboratory Results - last 24 hr 06/12/24 19:48: WBC 10.9, RBC 3.66 L, Hgb 11.8 L, Hct 35.8 L, MCV 97.8, MCH 32.2 H, MCHC 33.0, RDW Std Deviation 45.6 H, RDW Coeff of Rosamaria 12.9, Plt Count 298, MPV 9.3, Immature Gran % (Auto) 0.400, Neut % (Auto) 43.1 L, Lymph % (Auto) 47.7 H, [place] % (Auto) 7.2, Eos % (Auto) 1.1, Baso % (Auto) 0.5, Absolute Neuts (auto) 4.7, Absolute Lymphs (auto) 5.22 H, Nucleated RBC % 0, Differential Comment SCANNED, Sodium 143, Potassium 3.8, Chloride 112 H, Carbon Dioxide 26.0, Anion Gap 5, BUN 17, Creatinine 0.68, Estim Creat Clear Calc 81.38, Est GFR (MDRD) Af Amer 110, Est GFR (MDRD) Non-Af 91, BUN/Creatinine Ratio 25.1 H, Glucose 88, Calcium 8.9, Total Creatine Kinase 366 H 06/12/24 20:35: Urine Color Yellow, Urine Clarity Clear, Urine pH 6.0, Ur Specific [place] 1.010, Urine Protein Negative, Urine Glucose (UA) Normal, Urine Ketones 5 H, Urine Occult Blood Negative, Urine Nitrite Negative, Urine Bilirubin Negative, Urine Urobilinogen Normal, Ur Leukocyte Esterase 25 H, Urine RBC 0 SEEN, Urine WBC 0-5 SEEN, Ur Squamous Epith Cells 0-5 SEEN, Urine Bacteria RARE, Urine Mucus 0 SEEN Assessment & Plan Assessment/Plan (1) Risk for falls: PLAN: Patient was examined and evaluated. All findings were discussed with the patient. All questions were answered to the patient's satisfaction. Patient will be admitted under podiatry services with consultations to medicine for medical management. Social work is consulted for discharge planning for SNF placement. PT/OT: Consult pending Weightbearing status: Nonweightbearing to left lower extremity. Full weightbearing right lower extremity. Podiatry will continue to follow patient daily whether she is in house. Please reach out to Dr. Coleman for any question or concerns. (2) Intractable pain:
[2024-06-12] MEDS: Ursodiol 250 MG Tablet PO (22:54)
[2024-06-12] MEDS: Vitamin E 400 UNITS Capsule PO (22:54)
[2024-06-12] MEDS: sulfaSALAzine 500 MG Tablet PO (22:54)
[2024-06-12] MEDS: Venlafaxine XR 37.5 MG Capsule PO (22:54)
[2024-06-12] MEDS: HYDROcodone Bitartrate/Apap 5/325 Tablet PO (22:55)
[2024-06-12] MEDS: cycloBENZAPRine HCl 10 MG Tablet PO (22:56)
[2024-06-12] MEDS: Potassium Chloride Oral Tablet 10 MEQ PO (22:56)
[2024-06-12] MEDS: Hydroxychloroquine 200 MG Tablet PO (22:56)
[2024-06-12] MEDS: 0.9% Normal Saline (1000mL) 1,000 ML 50 ML IV (22:57)
[2024-06-12] MEDS: Heparin Injection (Vial) 5,000 UNIT/ML VIAL 5000 UNIT SC (22:57)
--- NOTE | 2024-06-13 02:00 | NURSING ---
Pt insisting her cpap was left in ER. This RN called ER and talked to MARIELLA Harris who checked for cpap in the department. The pt did not bring her own cpap to ER with her. Pt informed cpap was not left in ER.
[2024-06-13 04:02] VITALS: BP 114/76; PULSE 85; RESP 16; TEMP 36.6; O2SAT 100
[2024-06-13] MEDS: HYDROcodone Bitartrate/Apap 5/325 Tablet PO (04:07)
[2024-06-13] MEDS: Thyroid 60 MG Tablet PO (04:14)
[2024-06-13] MEDS: Heparin Injection (Vial) 5,000 UNIT/ML VIAL 5000 UNIT SC ×2 (04:19→22:33)
[2024-06-13 05:28] VITALS: BMI 39.5
[2024-06-13 05:47] LABS: Absolute Neutrophil Count 3.4 X10^3/uL (2.0-7.7); Basophil# 0.05 X10^3/uL; Basophil% 0.6 % (0-1); Eosinophil# 0.14 X10^3/uL; Eosinophils% 1.6 % (0-5); Hematocrit 35.2 % (37-47); Hemoglobin 11.5 g/dL (12.0-15.0); Lymphocyte % 50.4 % (19-41); Mean Corp Hgb Conc 32.7 g/dL (32-36); Mean Corpuscular Hgb 32.5 pg (27.0-32.0); Mean Corpuscular Volume 99.4 fL (81-99); Mean Platelet Vol. 9.6 fl (6.2-12.0); Monocyte# 0.68 X10^3/uL; Monocyte% 7.8 % (0-10); NRBC Flagged by Analyzer 0 % (0-5); Neutrophil # 3.43 X10^3/uL (2.7-7.7); Neutrophil % 39.3 % (47-70); Platelet Count 313 K/mm3 (150-450); RBC Distribution Width CV 12.9 % (11.6-14.6); RBC Distribution Width SD 47.2 fl (35.1-43.9); Red Blood Count 3.54 M/mm3 (4.2-5.4); White Blood Count 8.7 K/mm3 (4.4-11.0)
[2024-06-13] MEDS: HYDROmorphone 0.5 MG/0.5 ML SYRINGE IV (06:17)
[2024-06-13 06:19] LABS: ALB/GLOB Ratio 1.1 RATIO (0.9-2.4); AST(SGOT) 24 U/L (15-37); Alanine Aminotransfer ALT/SGPT 21 U/L (13-56); Albumin, Serum 3.4 g/dL (3.2-5.0); Alkaline Phosphatase 89 U/L (45-117); Anion Gap 6 (5-15); BUN 15 mg/dL (7-18); BUN/Creat Ratio 20.6 RATIO (10-20); Calcium,Total 8.5 mg/dL (8.5-10.1); Chloride 111 mmol/L (98-107); Creatinine, Serum 0.73 mg/dL (0.55-1.02); EST Glomerular Filtration Rate 84 mL/min (>60); Est Glom Filt Rate - Afr Amer 101 mL/min (>60); Estimated Creatinine Clearance 78.65 ml/min; Glucose 97 mg/dL (74-106); Phosphorus 2.9 mg/dL (2.5-4.9); Potassium 3.7 mmol/L (3.5-5.1); Protein, Total 6.4 g/dL (6.4-8.2); Sodium Level 143 mmol/L (136-145)
--- NOTE | 2024-06-13 06:47 | NURSING ---
Pt still believes ed has her cpap. Charlotte robbins contacted and she said no pt did not come in with it. Pt kept calling her [facility] her cpap
--- NOTE | 2024-06-13 08:02 | PCM.PN.SRG ---
Subjective Subjective Ms. Dejesus is a 73-year-old female seen at bedside today status post first metatarsophalangeal joint arthrodesis with hammertoe corrective surgery to left foot. Patient states that he had some pain overnight and was given a one-time dose of Dilaudid. After that her pain was improved. She continues to use the heel to transfer to the left lower extremity and has full weightbearing to the right lower extremity with walker. Plan for this admission is to get the patient scheduled for either rehab or care home facility. She denies any trauma. Denies constitutional symptoms. No pedal plaints at this time. Objective Data Objective Data Vital Signs: Vital Signs Temp Pulse Resp BP Pulse Ox O2 Del Method 97.8 F 85 16 114/76 100 Room Air 06/13/24 04:02 06/13/24 04:02 06/13/24 04:02 06/13/24 04:02 06/13/24 04:02 06/13/24 04:02 Oxygen Delivery Method Room Air Weight: 107.6 kg Body Mass Index (BMI) 39.5 Intake & Output: Intake and Output for Last 24 Hours 06/11/24 06/12/24 06/13/24 23:59 23:59 22:59 Intake Total 300 / 300 Balance 300 / 300 Lab / Micro Data 06/13/24 04:20 06/13/24 04:20 Labs: Laboratory Results - last 24 hr 06/12/24 19:48: WBC 10.9, RBC 3.66 L, Hgb 11.8 L, Hct 35.8 L, MCV 97.8, MCH 32.2 H, MCHC 33.0, RDW Std Deviation 45.6 H, RDW Coeff of Rosamaria 12.9, Plt Count 298, MPV 9.3, Immature Gran % (Auto) 0.400, Neut % (Auto) 43.1 L, Lymph % (Auto) 47.7 H, [place] % (Auto) 7.2, Eos % (Auto) 1.1, Baso % (Auto) 0.5, Absolute Neuts (auto) 4.7, Absolute Lymphs (auto) 5.22 H, Nucleated RBC % 0, Differential Comment SCANNED, Sodium 143, Potassium 3.8, Chloride 112 H, Carbon Dioxide 26.0, Anion Gap 5, BUN 17, Creatinine 0.68, Estim Creat Clear Calc 81.38, Est GFR (MDRD) Af Amer 110, Est GFR (MDRD) Non-Af 91, BUN/Creatinine Ratio 25.1 H, Glucose 88, Calcium 8.9, Total Creatine Kinase 366 H 06/12/24 20:35: Urine Color Yellow, Urine Clarity Clear, Urine pH 6.0, Ur Specific [place] 1.010, Urine Protein Negative, Urine Glucose (UA) Normal, Urine Ketones 5 H, Urine Occult Blood Negative, Urine Nitrite Negative, Urine Bilirubin Negative, Urine Urobilinogen Normal, Ur Leukocyte Esterase 25 H, Urine RBC 0 SEEN, Urine WBC 0-5 SEEN, Ur Squamous Epith Cells 0-5 SEEN, Urine Bacteria RARE, Urine Mucus 0 SEEN 06/13/24 04:20: WBC 8.7, RBC 3.54 L, Hgb 11.5 L, Hct 35.2 L, MCV 99.4 H, MCH 32.5 H, MCHC 32.7, RDW Std Deviation 47.2 H, RDW Coeff of [place] 12.9, Plt Count 313, MPV 9.6, Immature Gran % (Auto) 0.300, Neut % (Auto) 39.3 L, Lymph % (Auto) 50.4 H, [place] % (Auto) 7.8, Eos % (Auto) 1.6, Baso % (Auto) 0.6, Absolute Neuts (auto) 3.4, Absolute Lymphs (auto) 4.40, Nucleated RBC % 0, Sodium 143, Potassium 3.7, Chloride 111 H, Carbon Dioxide 26.0, Anion Gap 6, BUN 15, Creatinine 0.73, Estim Creat Clear Calc 78.65, Est GFR (MDRD) Af Amer 101, Est GFR (MDRD) Non-Af 84, BUN/Creatinine Ratio 20.6 H, Glucose 97, Calcium 8.5, Phosphorus 2.9, Magnesium 2.0, Total Bilirubin 0.50, AST 24, ALT 21, Alkaline Phosphatase 89, Total Protein 6.4, Albumin 3.4, Globulin 3.0, Albumin/Globulin Ratio 1.1, TSH 6.070 H Rhythm Strip Rhythm Strip: Sinus Rhythm Rate: 81 Ectopy: None Physical Exam Narrative Vascular: CFT is brisk to left lower extremity. Nonpitting edema appreciated to the distal and proximal dressing. No strikethrough is appreciated. Neurologic: Light touch intact. Dermatologic: Postoperative dressing appreciated left lower extremity. No strikethrough. Musculoskeletal: Muscle strength deferred secondary to postoperative changes. Active and passive range of motion of lesser digits is pain-free. No range of motion to the left first metatarsophalangeal joint secondary to arthrodesis. No pain with calf compression. Const oriented x3 and no apparent distress Assessment & Plan Assessment/Plan (1) Risk for falls: PLAN: Patient was examined and evaluated. All findings were discussed with the patient. All questions were answered to the patient's satisfaction. Medicine: On board, medical management PT/OT: Consult pending Social Work: Consult pending Weightbearing status: Nonweightbearing to left lower extremity. Full weightbearing right lower extremity. Recommend rehab versus care home facility for continued rehab for the patient to be nonweightbearing to the left lower extremity and for optimization of the upper extremity weakness. Podiatry will continue to follow patient daily while she is in house. Please reach out to Dr. Coleman for any question or concerns. (2) Intractable pain:
[2024-06-13 08:05] LABS: Hemoglobin A1c 5.4 % (3.8-5.6)
[2024-06-13] MEDS: oxyCODONE 5 MG Tablet PO ×2 (08:58→14:10)
[2024-06-13] MEDS: Acetaminophen 325 MG Tablet 650 MG PO ×3 (08:59→22:32)
[2024-06-13] MEDS: Hydroxychloroquine 200 MG Tablet PO ×2 (09:00→22:33)
[2024-06-13] MEDS: Calcium Carb/Vitamin D 1 TABLET Tablet PO (09:00)
[2024-06-13] MEDS: Pantoprazole Sodium 40 MG Tablet PO (09:01)
[2024-06-13] MEDS: Magnesium Chloride 64 MG Delay Rel.Tablet 128 MG PO (09:01)
[2024-06-13] MEDS: sulfaSALAzine 500 MG Tablet PO ×2 (09:02→22:33)
[2024-06-13] MEDS: Docusate Sodium 100 MG Capsule PO (09:02)
[2024-06-13] MEDS: Doxycycline 100 MG CAPSULE PO (09:03)
[2024-06-13] MEDS: Folic Acid 1 MG Tablet PO ×2 (09:04→14:11)
[2024-06-13] MEDS: Potassium Chloride Oral Tablet 10 MEQ PO ×2 (09:05→22:31)
[2024-06-13] MEDS: predniSONE 5 MG Tablet PO (09:05)
[2024-06-13] MEDS: Aspirin E.C. 81 MG Tablet PO (09:05)
[2024-06-13] MEDS: Ascorbic Acid 500 MG Tablet 1000 MG PO (09:06)
[2024-06-13] MEDS: Ursodiol 250 MG Tablet PO ×2 (09:06→22:33)
[2024-06-13] MEDS: Vitamin E 400 UNITS Capsule PO ×2 (09:07→22:32)
[2024-06-13 09:47] VITALS: BP 128/76; PULSE 98; RESP 18; TEMP 37.2; O2SAT 98
--- NOTE | 2024-06-13 11:42 | PN_ITS ---
Subjective Subjective Patient seen and examined. She was agitated and tearful. She said she felt nobody introduced themselves to her when he came in and so she was confused about where she had been seen. She also says she felt like she was being treated like she was in pain medication already simply because she had said her pain was not well-controlled. She does see pain management. She also states she has a history of adrenal insufficiency and is wondering if she should have had IV steroids before she had surgery. Review of systems is otherwise negative. Objective Data Objective Data Vital Signs: Vital Signs Temp Pulse Resp BP Pulse Ox O2 Del Method 99.0 F 98 18 128/76 H 98 Room Air 06/13/24 09:47 06/13/24 09:47 06/13/24 09:47 06/13/24 09:47 06/13/24 09:47 06/13/24 09:47 Oxygen Delivery Method Room Air Weight: 237 lb 3.478 oz Body Mass Index (BMI) 39.5 Intake & Output: Intake and Output for Last 24 Hours 06/11/24 06/12/24 06/13/24 23:59 23:59 22:59 Intake Total 300 / 300 Balance 300 / 300 Lab / Micro Data 06/13/24 04:20 06/13/24 04:20 Labs: Laboratory Results - last 24 hr 06/12/24 19:48: WBC 10.9, RBC 3.66 L, Hgb 11.8 L, Hct 35.8 L, MCV 97.8, MCH 32.2 H, MCHC 33.0, RDW Std Deviation 45.6 H, RDW Coeff of [place] 12.9, Plt Count 298, MPV 9.3, Immature Gran % (Auto) 0.400, Neut % (Auto) 43.1 L, Lymph % (Auto) 47.7 H, [place] % (Auto) 7.2, Eos % (Auto) 1.1, Baso % (Auto) 0.5, Absolute Neuts (auto) 4.7, Absolute Lymphs (auto) 5.22 H, Nucleated RBC % 0, Differential Comment SCANNED, Sodium 143, Potassium 3.8, Chloride 112 H, Carbon Dioxide 26.0, Anion Gap 5, BUN 17, Creatinine 0.68, Estim Creat Clear Calc 81.38, Est GFR (MDRD) Af Amer 110, Est GFR (MDRD) Non-Af 91, BUN/Creatinine Ratio 25.1 H, Glucose 88, Calcium 8.9, Total Creatine Kinase 366 H 06/12/24 20:35: Urine Color Yellow, Urine Clarity Clear, Urine pH 6.0, Ur Specific [place] 1.010, Urine Protein Negative, Urine Glucose (UA) Normal, Urine Ketones 5 H, Urine Occult Blood Negative, Urine Nitrite Negative, Urine Bilirubin Negative, Urine Urobilinogen Normal, Ur Leukocyte Esterase 25 H, Urine RBC 0 SEEN, Urine WBC 0-5 SEEN, Ur Squamous Epith Cells 0-5 SEEN, Urine Bacteria RARE, Urine Mucus 0 SEEN 06/13/24 04:20: WBC 8.7, RBC 3.54 L, Hgb 11.5 L, Hct 35.2 L, MCV 99.4 H, MCH 32.5 H, MCHC 32.7, RDW Std Deviation 47.2 H, RDW Coeff of [place]am[place] 12.9, Plt Count 313, MPV 9.6, Immature Gran % (Auto) 0.300, Neut % (Auto) 39.3 L, Lymph % (Auto) 50.4 H, [place] % (Auto) 7.8, Eos % (Auto) 1.6, Baso % (Auto) 0.6, Absolute Neuts (auto) 3.4, Absolute Lymphs (auto) 4.40, Nucleated RBC % 0, Sodium 143, Potassium 3.7, Chloride 111 H, Carbon Dioxide 26.0, Anion Gap 6, BUN 15, Creatinine 0.73, Estim Creat Clear Calc 78.65, Est GFR (MDRD) Af Amer 101, Est GFR (MDRD) Non-Af 84, BUN/Creatinine Ratio 20.6 H, Glucose 97, Hemoglobin A1c 5.4, Calcium 8.5, Phosphorus 2.9, Magnesium 2.0, Total Bilirubin 0.50, AST 24, ALT 21, Alkaline Phosphatase 89, Total Protein 6.4, Albumin 3.4, Globulin 3.0, Albumin/Globulin Ratio 1.1, TSH 6.070 H Rhythm Strip Rhythm Strip: Sinus Rhythm Rate: 81 Ectopy: None Physical Exam Const alert Constitutional Narrative: agitated, obese General Appearance: cooperative HEENT normocephalic, head/scalp atraumatic and moist oral mucous membranes Eyes PERRL and EOMs intact bilaterally Neck no lymphadenopathy and supple Lymph Lymphatic: no lymphadenopathy noted and no lymphedema noted Resp normal respiratory effort, normal air movement and clear to auscultation bilaterally Cardio regular rate, regular rhythm, S1 normal heart sound, S2 normal heart sound and no murmurs GI normal to inspection, nondistended, normoactive bowel sounds, soft to palpation, non-tender and non-distended Extremity Extremity Narrative: LLE wrapped in bandage Skin General Skin Exam: no breakdown Neuro CN's II-XII intact bilaterally, no focal motor deficits and deep tendon reflexes 2+ bilaterally Motor Exam: general weakness Psych Psych Narrative: agitated, anxious Assessment & Plan Assessment/Plan (1) Generalized weakness: (2) Postoperative pain of extremity: PLAN: Plan #Post op pain * had elective LLE surgery by podiatry on Friday06/11/2024 * was discharged home afterwards but came back due to intractable pain * Admitted to the service of podiatry for pain control. * PT OT on board. For precautions. Will benefit from placement. #Chronic pain syndrome * Patient states she has chronic pain in her back and neck as well as in her fingers. She follows with pain management for this. * PT OT on board. On pain meds. #Benign essential hypertension: #History of adrenal insufficiency and hypopituitarism * Patient on p.o. prednisone 5 mg daily. Patient is asking if she should have gotten more steroids before the surgery. She is wanting she should get more steroids now. Patient counseled that there is no clear reason for her to get steroids as it does not look like she is in adrenal crisis. Her blood pressure is stable and she is not hyperkalemic or hyponatremic. * I spoke to patient's son who stated that his mother sometimes became agitated when having an adrenal crises. I explained to patient's son that she was not hypotensive, nor did she have hyperkalemia or hyponatremia, * #Hypothyroidism: On Synthroid #Nonalcoholic fatty liver disease: On ursodiol #Rheumatoid arthritis: On Plaquenil #History of MGUS: Stable #History of asthma: not in exacerbation. Breathing treatment with bronchodilators #Anxiety and depression: on venlafaxine #DVT prophylaxis; heparin Charges/Coding Visit Charges Inpatient E&M: 23555 Subs Hosp L2
--- NOTE | 2024-06-13 13:02 | NURSING ---
pt refuses to have insulin or anything to do with DM on her OCT/chart-they are removed and Dr barcenas notified
[2024-06-13 14:39] VITALS: BP 141/52; PULSE 98; RESP 18; TEMP 37.1; O2SAT 96
[2024-06-13 14:56] VITALS: BP 141/52; PULSE 98; RESP 18; TEMP 36.7; O2SAT 96
[2024-06-13 22:07] VITALS: BP 117/64; PULSE 80; RESP 16; TEMP 36.8; O2SAT 95
[2024-06-13] MEDS: Venlafaxine XR 37.5 MG Capsule PO (22:33)
--- NOTE | 2024-06-14 00:48 | NURSING ---
patient requested to not be woken up for vitals or assessment
[2024-06-14 04:38] VITALS: BP 137/71; PULSE 76; RESP 17; TEMP 36.6; O2SAT 100
[2024-06-14] MEDS: oxyCODONE 5 MG Tablet PO ×3 (04:41→20:40)
[2024-06-14] MEDS: 0.9% Saline Lock 10 ML Syringe IV (04:48)
[2024-06-14 06:00] VITALS: BMI 38.9
[2024-06-14] MEDS: Heparin Injection (Vial) 5,000 UNIT/ML VIAL 5000 UNIT SC ×3 (06:42→20:33)
[2024-06-14] MEDS: Pantoprazole Sodium 40 MG Tablet PO (06:43)
[2024-06-14 06:56] LABS: Absolute Lymphocyte Count 3.85 X10^3/uL (0.83-4.51); Basophil# 0.04 X10^3/uL; Basophil% 0.5 % (0-1); Eosinophil# 0.17 X10^3/uL; Eosinophils% 2.2 % (0-5); Hematocrit 35.9 % (37-47); Hemoglobin 11.5 g/dL (12.0-15.0); Lymphocyte # 3.85 X10^3/ul (0.83-4.51); Lymphocyte % 50.1 % (19-41); Mean Corpuscular Hgb 31.5 pg (27.0-32.0); Mean Corpuscular Volume 98.4 fL (81-99); Mean Platelet Vol. 9.4 fl (6.2-12.0); Monocyte# 0.56 X10^3/uL; Monocyte% 7.3 % (0-10); NRBC Flagged by Analyzer 0 % (0-5); Neutrophil # 3.04 X10^3/uL (2.7-7.7); Neutrophil % 39.6 % (47-70); Platelet Count 312 K/mm3 (150-450); RBC Distribution Width CV 12.8 % (11.6-14.6); Red Blood Count 3.65 M/mm3 (4.2-5.4); White Blood Count 7.7 K/mm3 (4.4-11.0)
[2024-06-14] MEDS: Budesonide Respules 0.5 MG/2 ML AMPUL.NEB. INHALATION ×2 (07:25→19:52)
[2024-06-14 07:27] VITALS: RESP 16
[2024-06-14 07:29] LABS: Anion Gap 5 (5-15); BUN 14 mg/dL (7-18); BUN/Creat Ratio 21.5 RATIO (10-20); Calcium,Total 8.8 mg/dL (8.5-10.1); Chloride 110 mmol/L (98-107); Creatinine, Serum 0.65 mg/dL (0.55-1.02); EST Glomerular Filtration Rate 95 mL/min (>60); Est Glom Filt Rate - Afr Amer 115 mL/min (>60); Glucose 111 mg/dL (74-106); Magnesium 2.1 mg/dL (1.6-2.6); Phosphorus 3.2 mg/dL (2.5-4.9); Potassium 3.6 mmol/L (3.5-5.1); Sodium Level 142 mmol/L (136-145)
[2024-06-14] MEDS: Thyroid 15 MG Tablet 30 MG PO (07:36)
[2024-06-14] MEDS: Folic Acid 1 MG Tablet PO ×3 (08:10→19:01)
[2024-06-14] MEDS: predniSONE 5 MG Tablet PO (08:11)
[2024-06-14] MEDS: Acetaminophen 325 MG Tablet 650 MG PO ×3 (08:17→20:40)
[2024-06-14 09:35] VITALS: BP 157/81; PULSE 105; RESP 17; TEMP 37.4; O2SAT 96
--- NOTE | 2024-06-14 09:47 | CASEMGMT ---
Discharge Planning A list of?SNF providers including quality and resource use data and consistent with the patient's preferred geographic region, medical needs, and insurance network was created in [facility].? This list was provided to the SW. Yolande Knight Discharge Planning Asst.
--- NOTE | 2024-06-14 09:51 | NURSING ---
Entered patient room and she want in panicked anxious state. Pt's shoulders were shrugged and arms were clenched. Pt states this was nonvoluntary. Normal muscle tone ciara pulses and sensation. Pt oriented and asking if she may be having seizure.
--- NOTE | 2024-06-14 10:16 | PN_ITS ---
Subjective Subjective Patient seen and examined this morning. Patient is upset and tearful and keeps perseverating about whether she got steroids during her surgery. I explained to her that I was not present in the surgery and so I do not know. She tells me that she was told by Dr. Brennan that she received Decadron and she does not know why she would receive Decadron when she needs steroids. I explained to her that Decadron is also a steroid. She feels she is not getting enough steroids and thus was making her jittery and anxious. She states she has a pill box that she brought in with her that shows how much steroids her manager sales and marketing wanted her to have after she had any surgery or stressful events. He is currently on 5 mg of prednisone daily but she states that not enough. Pain is otherwise well- controlled. Review of systems otherwise negative. She does have a mild fever of 99.4 Fahrenheit today and her pulse rate is 105. Blood pressure also elevated at 157/81. Objective Data Objective Data Vital Signs: Vital Signs Temp Pulse Resp BP Pulse Ox O2 Del Method 99.4 F H 105 H 17 157/81 H 96 Room Air 06/14/24 09:35 06/14/24 09:35 06/14/24 09:35 06/14/24 09:35 06/14/24 09:35 06/14/24 09:35 Oxygen Delivery Method Room Air Weight: 233 lb 11.04 oz Body Mass Index (BMI) 38.9 Intake & Output: Intake and Output for Last 24 Hours 06/12/24 06/13/24 06/14/24 23:59 22:59 23:59 Intake Total 3895 / 3895 150 / 150 Balance 3895 / 3895 150 / 150 Lab / Micro Data 06/14/24 06:10 06/14/24 06:10 Labs: Laboratory Results - last 24 hr 06/14/24 06:10: WBC 7.7, RBC 3.65 L, Hgb 11.5 L, Hct 35.9 L, MCV 98.4, MCH 31.5, MCHC 32.0, RDW Std Deviation 46.0 H, RDW Coeff of Rosamaria 12.8, Plt Count 312, MPV 9.4, Immature Gran % (Auto) 0.300, Neut % (Auto) 39.6 L, Lymph % (Auto) 50.1 H, [place] % (Auto) 7.3, Eos % (Auto) 2.2, Baso % (Auto) 0.5, Absolute Neuts (auto) 3.0, Absolute Lymphs (auto) 3.85, Nucleated RBC % 0, Sodium 142, Potassium 3.6, Chloride 110 H, Carbon Dioxide 27.0, Anion Gap 5, BUN 14, Creatinine 0.65, Estim Creat Clear Calc 78.00, Est GFR (MDRD) Af Amer 115, Est GFR (MDRD) Non-Af 95, B UN/Creatinine Ratio 21.5 H, Glucose 111 H, Calcium 8.8, Phosphorus 3.2, Magnesium 2.1, TSH 2.170 Rhythm Strip Rhythm Strip: Sinus Rhythm Rate: 81 Ectopy: None Physical Exam Const alert and oriented x3 Constitutional Narrative: agitated and anxious, obese General Appearance: cooperative HEENT normocephalic, head/scalp atraumatic, hearing grossly normal bilaterally and moist oral mucous membranes Eyes PERRL and EOMs intact bilaterally Neck no lymphadenopathy and supple Lymph Lymphatic: no lymphadenopathy noted and no lymphedema noted Resp normal respiratory effort, normal air movement, no retractions, no use of accessory muscles and clear to auscultation bilaterally Cardio regular rate, regular rhythm, S1 normal heart sound, S2 normal heart sound and no murmurs GI normal to inspection, nondistended, normoactive bowel sounds, soft to palpation, non-tender and non-distended GI Narrative: Morbidly obese. Extremity Extremity Narrative: LLE wrapped in bandage Skin Skin Narrative: Patient has no evidence of rash, abscess or jaundice. General Skin Exam: no breakdown Neuro oriented x3, CN's II-XII intact bilaterally, moves all extremities, no focal motor deficits and deep tendon reflexes 2+ bilaterally Sensorium / Orientation: awake, alert, oriented to person, oriented to place and oriented to time Speech: speech normal Motor Exam: general weakness Psych Psych Narrative: agitated, anxious Mood & Affect: anxious Assessment & Plan Assessment/Plan (1) Generalized weakness: (2) Postoperative pain of extremity: PLAN: Plan #Post op pain * had elective LLE surgery by podiatry on Friday06/11/2024 * was discharged home afterwards but came back due to intractable pain * Admitted to the service of podiatry for pain control. * PT OT on board. For precautions. Will benefit from placement. #Chronic pain syndrome * Patient states she has chronic pain in her back and neck as well as in her fingers. She follows with pain management for this. * PT OT on board. On pain meds. #Benign essential hypertension: #History of adrenal insufficiency and hypopituitarism * Patient on p.o. prednisone 5 mg daily. * patient very anxious and agitated because she thinks she should be getting more steroids. * She says she has a pill bottle from her manager sales and marketing which shows the tapering dose of steroids she is supposed to get after a stressful episode like surgery. * her nurse checked her meds, and she has a pill bottle from 2019 which shows prednisone course of 60mg x 5 days, 40mg x 5 days then 20mg x 5 days. * Will place patient on this tapering dose of steroids. * #Hypothyroidism: On Synthroid #Nonalcoholic fatty liver disease: On ursodiol #Rheumatoid arthritis: On Plaquenil #History of MGUS: Stable #History of asthma: not in exacerbation. Breathing treatment with bronchodilators #Anxiety and depression: on venlafaxine #DVT prophylaxis; heparin Disposition: awaiting transfer Charges/Coding Visit Charges Inpatient E&M: 30989 Subs Hosp L2
--- NOTE | 2024-06-14 10:20 | CASEMGMT ---
Addendum entered by Eli Polo 06/14/24 16:26: MARIELLA FUNG into pt room, present. Rx signed for w/c and BSC. BSC rx given to pt. W/C rx sent to [facility]. Pt to now get own transportation home. Pt is aware of how to enter home as demonstrated for her. [facility] accepted pt for SOC on Friday or , pt aware they will call to set up time. Pt denies any further needs at this time. Addendum entered by Eli Polo 06/14/24 16:09: arrived, pt will have heel wt bearing. MARIELLA FUNG to see if pt still would like transport home by cot and the DME as previously discussed. Addendum entered by Eli Polo 06/14/24 16:08: MARIELLA FUNG into pt room, pt has son on phone and pt placed on speakerphone. Discussed plan with son who is not in agreement. Son has the flu and is unable to assist. Pt plans to return home with [facility] and friend Radha who will be staying overnight with her until she is no longer needed. Pt with questions regarding getting in the home. Discussed transportation home and costs. Pt would like a BSC and w/c. Discussed local in network DME companies, pt chose [email or web address]. Updated on plan who is on his way to see pt. Pt lives in a single story home with 3 steps to enter. Pt was I in ADL/IADLs prior to surgery but pt took extra time to complete tasks. Pt has a electric w/c with unknown working order, walker, BSC x 2 but unlocatable and knee scooter. Pt denies hx of HHC or SNF stays. Addendum entered by Eli Polo 06/14/24 15:09: Received notification that the rehab physician reviewed pt chart and pt is not appropriate for this level of care. MARIELLA FUNG into pt room and pt made aware. Pt states she will just go home. Discussed HHC, pt agreeable. Provided pt with a list of [facility] providers including quality and resource use data and consistent with the patient?s preferred geographic region, medical needs, and insurance network were provided from the [employer]. Pt chose [facility]. TC to Becki, referral made. Addendum entered by Eli Polo 06/14/24 14:50: MARIELLA UFNG noted OT treatment completed. MARIELLA FUNG into pt room. Pt is asking if [facility] Rehab will reconsider referral. She states PT will see her at 4pm. Pt states that they need these evals to make a decision. Pt made aware that PT and OT evals were completed yesterday. Pt states they were not. Pt unwilling to discuss other options until [facility] Rehab re reviews referral. Updated SW. Addendum entered by Eli Polo 06/14/24 13:31: MARIELLA FUNG attended observation huddle and discussed pt status with attending physician. TC to therapy to request treatment of pt. MARIELLA FUNG to follow up with patient after therapy sees pt. Updated pt nurse. Addendum entered by Eli Polo 06/14/24 11:27: MARIELLA FUNG into pt room, pt nurse present for entire lengthy conversation with pt and options at vt. Pt is aware that [facility] Rehab unit is unable to accept her as a pt. Discussed other options. Pt very upset, called her son and placed him on speakerphone. Son seemed to understand the rules and states if pt goes home, she would be right back in as she cannot function at home. Pt and son to discuss pt options and see what will work for them in case pt is not changed to an inpatient status. Original Note: MARIELLA FUNG into pt room, pt sitting up in chair in no distress. Pt states she just had an episode where her arms froze up. Pt states she does not feel safe at home since her surgery. Discussed with pt vt options that are covered by [facility]. Pt states she feels she needs rehab. Discussed the possibility of a rehab unit if they accept her otherwise a SNF is an option but would not be covered by [facility]. Pt states she would like the rehab unit at [facility]. She is aware that this MARIELLA FUNG will notify SW and a referral can be made. Pt denies need for a list of other options unless [facility] Rehab unit doesn't accept her. Updated SW.
[2024-06-14] MEDS: Doxycycline 100 MG CAPSULE PO (10:44)
[2024-06-14] MEDS: Docusate Sodium 100 MG Capsule PO (10:44)
[2024-06-14] MEDS: sulfaSALAzine 500 MG Tablet PO ×2 (10:44→20:33)
[2024-06-14] MEDS: Aspirin E.C. 81 MG Tablet PO (10:45)
[2024-06-14] MEDS: Potassium Chloride Oral Tablet 10 MEQ PO ×2 (10:45→20:32)
[2024-06-14] MEDS: Magnesium Chloride 64 MG Delay Rel.Tablet 128 MG PO (10:45)
[2024-06-14] MEDS: Ascorbic Acid 500 MG Tablet 1000 MG PO (10:46)
[2024-06-14] MEDS: Ursodiol 250 MG Tablet PO ×2 (10:46→20:32)
[2024-06-14] MEDS: Hydroxychloroquine 200 MG Tablet PO ×2 (10:46→20:32)
[2024-06-14] MEDS: Calcium Carb/Vitamin D 1 TABLET Tablet PO (10:46)
[2024-06-14] MEDS: Vitamin E 400 UNITS Capsule PO ×2 (10:47→20:33)
--- NOTE | 2024-06-14 11:50 | CASEMGMT ---
Met with patient to complete GIRALDO form. GIRALDO form explained to patient who voiced understanding and signed form. Original form placed in pt?s chart and copy provided to patient. Yolande Knight, Discharge Planning Asst
[2024-06-14] MEDS: predniSONE 20 MG Tablet 60 MG PO (11:57)
--- NOTE | 2024-06-14 12:00 | NS ---
Dietary staff, Yessi, called RD d/t pt asking why she is on a consistent carbohydrate diet. Labs reviewed since admission - glucose 111, 97, and 88. A1C yesterday - 5.4% indicated adequate glycemic control. Pt is on prednisone, which can increase blood glucose. Will liberalized diet to regular and restrict carbs as blood sugar rises/indicated.
--- NOTE | 2024-06-14 12:03 | CASEMGMT ---
GIRALDO Patient declined to sign GIRALDO. Copy given to her and original placed in chart. RN CM updated. Yolande Knight DC Planning Asst.
--- NOTE | 2024-06-14 13:22 | CHAPLAIN ---
Type of Pastoral Visit _x__ Initial Visit ___ Follow-up Visit ___ On-call Visit ___ General Patient Visit ___ Spiritual Assessment ___ Family Conference ___ Bereavement ___ Rapid Response ___ Code Blue ___ Other (describe below) Pastoral Care Referral From _x__ Patient ___ Family ___ Nurse ___ Physician ___ Shift Supervisor ___ Route Carrier ___ Other (describe below) Sacrament/Intervention _x__ Active listening ___ Anointing ___ Voodoo ___ Bereavement ___ Communion ___ Elizabeth exploration ___ _x__ Life review _x__ Prayer ___ Reconciliation ___ Sacrament of Sick _x__ Supportive presence ___ Wedding ___ Other (describe below) Pastoral Comments patient has medical knowledge and spoke about her experience from her perspective; pt is very talkative, shares about her life, and speaks with examples of her physical concerns; pt is wanting to eat and since it is late in coming she is also anxious about that; patient welcomes time to talk and for a supportive prayer
[2024-06-14 14:16] VITALS: BP 126/66; PULSE 90; RESP 16; TEMP 36.7; O2SAT 92
--- NOTE | 2024-06-14 16:23 | PCM.PN.SRG ---
Subjective Subjective Ms Dejesus is a 73-year-old female seen at bedside today for follow-up evaluation secondary to left foot surgery. Patient was denied rehab and SNF placement due not having inpatient status. Patient states that she is recovering well. She has no pain to left lower extremity. She is working with physical therapy and Occupational Therapy for assistance and optimization. Denies trauma. Denies constitutional symptoms. No other pedal complaints at this time. Objective Data Objective Data Vital Signs: Vital Signs Temp Pulse Resp BP Pulse Ox O2 Del Method 98.1 F 90 16 126/66 H 92 Room Air 06/14/24 14:16 06/14/24 14:16 06/14/24 14:16 06/14/24 14:16 06/14/24 14:16 06/14/24 14:16 Oxygen Delivery Method Room Air Weight: 106 kg Body Mass Index (BMI) 38.9 Intake & Output: Intake and Output for Last 24 Hours 06/12/24 06/13/24 06/14/24 23:59 22:59 23:59 Intake Total 3895 / 3895 150 / 150 Balance 3895 / 3895 150 / 150 Lab / Micro Data 06/14/24 06:10 06/14/24 06:10 Labs: Laboratory Results - last 24 hr 06/14/24 06:10: WBC 7.7, RBC 3.65 L, Hgb 11.5 L, Hct 35.9 L, MCV 98.4, MCH 31.5, MCHC 32.0, RDW Std Deviation 46.0 H, RDW Coeff of Rosamaria 12.8, Plt Count 312, MPV 9.4, Immature Gran % (Auto) 0.300, Neut % (Auto) 39.6 L, Lymph % (Auto) 50.1 H, [place] % (Auto) 7.3, Eos % (Auto) 2.2, Baso % (Auto) 0.5, Absolute Neuts (auto) 3.0, Absolute Lymphs (auto) 3.85, Nucleated RBC % 0, Sodium 142, Potassium 3.6, Chloride 110 H, Carbon Dioxide 27.0, Anion Gap 5, BUN 14, Creatinine 0.65, Estim Creat Clear Calc 78.00, Est GFR (MDRD) Af Amer 115, Est GFR (MDRD) Non-Af 95, BUN/Creatinine Ratio 21.5 H, Glucose 111 H, Calcium 8.8, Phosphorus 3.2, Magnesium 2.1, TSH 2.170 Rhythm Strip Rhythm Strip: Sinus Rhythm Rate: 81 Ectopy: None Physical Exam Narrative Vascular: DP and PT pulses are palpable left lower extremity. Nonpitting edema appreciated to the bilateral lower extremities. CFT is brisk. Skin temp great is warm to warm from proximal ankles to distal digit bilateral. Neurologic: Light touch intact. Patient response to painful stimuli Dermatologic: All incision well coapted with suture. No drainage. No erythema. No proximal streaking. No sign of infection. Musculoskeletal: Strength deferred. No range of motion to the first metatarsophalangeal joint secondary to arthrodesis. No pain on palpation to all incisions to left lower extremity. No pain with calf pressure. Const oriented x3 and no apparent distress Assessment & Plan Assessment/Plan (1) Risk for falls: PLAN: Patient was examined and evaluated. All findings were discussed with the patient. All questions were answered to the patient's satisfaction. Currently the patient has mobility limitations that significantly impairs ability to participate in dressing, grooming and bathing in the home and in the customary location. Use of wheelchair and home will improve the patient's ability to participate in MRADLs, but a walker will not. Medicine: On board, medical management PT/OT: On board for optimization Social Work: On board for discharge planning. Patient denied rehab and SNF secondary to observation status. Patient was discharged home with home health care and wheelchair. Weightbearing status: Nonweightbearing to left lower extremity. Full weightbearing right lower extremity. Patient will follow-up at scheduled postoperative appointment. She will reach out to the office with any question or concerns. Please reach out to Dr. Coleman for any question or concerns. (2) Intractable pain:
--- NOTE | 2024-06-14 16:27 | DS.PCM_ITS ---
Providers Date of Admission: 06/12/24 Date of Discharge: 06/14/24 Primary Care Physician: Dr. Addison Linn MD Consultations 06/12/24 22:11 Consult: Hospitalist Routine Consulting Provider: Alex Dozier Reason for Consult: medical management EMERGENT Consult: No MD Notified: Yes Date Notified: 06/12/24 Time Notified: 22:11 Method of Notification: Verbal Reason For Visit: GENERALIZED WEAKNESS AFTER LEFT FOOT SURGERY POD#1 Diagnosis Discharge Diagnosis (1) Risk for falls: Status: Acute Code(s): Z91.81 - History of falling Plan: Patient was examined and evaluated. All findings were discussed with the patient. All questions were answered to the patient's satisfaction. Currently the patient has mobility limitations that significantly impairs ability to participate in dressing, grooming and bathing in the home and in the customary location. Use of wheelchair and home will improve the patient's ability to participate in MRADLs, but a walker will not. Medicine: On board, medical management PT/OT: On board for optimization Social Work: On board for discharge planning. Patient denied rehab and SNF secondary to observation status. Patient was discharged home with home health care and wheelchair. Weightbearing status: Nonweightbearing to left lower extremity. Full weightbearing right lower extremity. Patient will follow-up at scheduled postoperative appointment. She will reach out to the office with any question or concerns. Please reach out to Dr. Coleman for any question or concerns. (2) Intractable pain: Status: Acute Code(s): R52 - Pain, unspecified Medications at Discharge Home Medications folic acid 0.8 mg capsule 0.8 mg PO BID supplement 07/14/18 hydroxychloroquine 200 mg tablet (Plaquenil) 200 mg PO BID ra 09/01/18 cyclobenzaprine 10 mg tablet 10 mg PO QHS PRN pain 12/22/19 methotrexate sodium 25 mg/mL injection solution 25 mg subcut QWEEK 09/25/20 fluticasone propionate 110 mcg/actuation HFA aerosol inhaler (Flovent HFA) 1 puff inhalation BID PRN ALLERGIES 06/12/21 magnesium oxide 500 mg capsule 500 mg PO DAILY 09/11/21 prednisone 5 mg tablet 5 mg PO DAILY #14 tabs 02/01/22 Handicap Placard #1 ea 11/22/22 hydrocodone-acetaminophen 5-325mg 5mg-325mg 1 tab PO Q6H PRN pain 11/22/22 cholecalciferol (vitamin D3) 1,250 mcg (50,000 unit) capsule 1,250 mcg PO .EVERY OTHER WEEK 03/05/23 ipratropium 0.5 mg-albuterol 3 mg (2.5 mg base)/3 mL nebulization soln 3 ml inhalation Q4H PRN PRN SOB &/OR WHEEZING #180 mL 05/20/23 potassium chloride 10 mEq capsule,extended release 10 meq PO BID 07/22/23 ursodiol 300 mg capsule 300 mg PO BID #180 caps 12/17/23 sulfasalazine 500 mg tablet,delayed release 1 g (2 x 500 mg) PO BID 90 days #360 tabs 01/23/24 venlafaxine 37.5 mg tablet 37.5 mg PO QHS 04/13/24 pantoprazole 40 mg tablet,delayed release 40 mg PO DAILY 05/17/24 thyroid (pork) 15 mg tablet (Herscher Thyroid) 30 mg PO DAILY 05/17/24 ferrous sulfate 325 mg (65 mg iron) tablet 325 mg PO PRN PRN LOW IRON 06/08/24 thyroid (pork) 60 mg tablet (Herscher Thyroid) 60 mg PO SUSA 06/08/24 vitamin E (dl, acetate) 180 mg (400 unit) capsule 180 mg PO BID 06/08/24 ascorbic acid (vitamin C) 1,000 mg tablet (Vitamin C) 1 g PO DAILY 90 days #90 tabs 06/11/24 aspirin 81 mg tablet,delayed release 81 mg PO DAILY 30 days #30 tabs 06/11/24 calcium 500 mg (as carbonate)-vitamin D3 15 mcg (600 unit) tablet (Os-William 500 + D3) 1 tab PO DAILY 90 days #90 tabs 06/11/24 docusate sodium 100 mg capsule (Colace) 100 mg PO DAILY 10 days #10 caps 06/11/24 doxycycline hyclate 100 mg capsule 100 mg PO DAILY 2 weeks #14 caps 06/11/24 oxycodone-acetaminophen 5 mg-325 mg tablet (Endocet) 1 tab PO Q6H pain 7 days #28 tabs 06/11/24 Hospital Course Operations - (Left foot surgery, first metatarsophalangeal joint arthrodesis, hammertoe surgery, left foot) Summary of Care Provided Minutes Spent on Discharge: 35 Hospital Course: Ms. Ricardo Florence is a 73-year-old female who was admitted secondary to generalized weakness to the [facility] after left foot surgery, DOS: 06/11/2024. While in the hospital the patient was seen by medicine team who is on consult for medical management. Patient was optimized medically while in house. Patient also participated with physical therapy and Occupational Therapy for minimal weightbearing to the left lower extremity as well as with gait training, transfer training, using a bedside to promote an additional daily living activity exercises to help optimize the patient's weightbearing status. Overall the patient has improved well. She denies any pain to left lower extremity. Podiatry is on primary for evaluation. Patient shows no signs of infection with dressing change and is doing well postoperatively. The patient will follow-up with Dr. Coleman in private office at already scheduled postoperative date. Physical Exam Narrative Vascular: DP and PT pulses are palpable left lower extremity. Nonpitting edema appreciated to the bilateral lower extremities. CFT is brisk. Skin temp great is warm to warm from proximal ankles to distal digit bilateral. Neurologic: Light touch intact. Patient response to painful stimuli Dermatologic: All incision well coapted with suture. No drainage. No erythema. No proximal streaking. No sign of infection. Musculoskeletal: Strength deferred. No range of motion to the first metatarsophalangeal joint secondary to arthrodesis. No pain on palpation to all incisions to left lower extremity. No pain with calf pressure. Const oriented x3 and no apparent distress Weight / BMI Weight Weight: 106 kg Body Mass Index (BMI) 38.9 ABG / Lab / Microbiology Data 06/14/24 06:10 06/14/24 06:10 Laboratory: Laboratory Results - last 24 hr 06/14/24 06:10: WBC 7.7, RBC 3.65 L, Hgb 11.5 L, Hct 35.9 L, MCV 98.4, MCH 31.5, MCHC 32.0, RDW Std Deviation 46.0 H, RDW Coeff of Rosamaria 12.8, Plt Count 312, MPV 9.4, Immature Gran % (Auto) 0.300, Neut % (Auto) 39.6 L, Lymph % (Auto) 50.1 H, [place] % (Auto) 7.3, Eos % (Auto) 2.2, Baso % (Auto) 0.5, Absolute Neuts (auto) 3.0, Absolute Lymphs (auto) 3.85, Nucleated RBC % 0, Sodium 142, Potassium 3.6, Chloride 110 H, Carbon Dioxide 27.0, Anion Gap 5, BUN 14, Creatinine 0.65, Estim Creat Clear Calc 78.00, Est GFR (MDRD) Af Amer 115, Est GFR (MDRD) Non-Af 95, B UN/Creatinine Ratio 21.5 H, Glucose 111 H, Calcium 8.8, Phosphorus 3.2, Magnesium 2.1, TSH 2.170 D/C Instructions Discharge Diet: Carb Control Diet Discharge Activity: May Not Shower and Use Walker May resume sexual activity in: No Restrictions Ice area for (Minutes): 20 Weight Bearing Status: Partial weight bearing (Partial weightbearing to left heel only. Full weightbearing right lower extremity.) Call your doctor if your incision/area has: Continuous Slow Oozing, Sudden Increased Bleeding, Increased Pain/ Swelling, Increased Redness, Foul Smelling Discharge and Swelling at the incision site Call your doctor if you observe: Fever of 101 or Higher Suture Line Care: Avoid Pulling/Pushing Change Dressing in: do not change dressing Remove Dressing in: do not remove dressing Cleanse incision/area with: Keep Dressing Clean & Dry Please Follow Up With: Chetan Coleman DPM When: Follow-up with Dr. Coleman at already scheduled postoperative clinic plan. Meaningful Use Info Meaningful Use Meaningful Use Diagnoses (Choose all that apply): None applicable Ischemic Stroke Statin Dosing Therapy Reference: STATIN DOSE THERAPY REFERENCE: * Patients > 75 years receive moderate or high dose statin therapy. * Patients 75 years or YOUNGER should receive HIGH intensity statin dose unless contraindicated. You will be required to document reason for non-treatment if statin daily dose does not meet guidelines. HIGH DOSE STATIN THERAPY DAILY Atorvastatin > than or = to 40 mg Rosuvastatin > than or = to 20 mg Amlodipine + Atorvastatin > than or = to 2.5/40 mg Ezetimibe + Simvastatin 10/80 mg Simvastatin 80mg Discharge Plan Admission Admit Date/Time: 06/12/24 21:36 Primary Reason for Your Visit: Fall risk, left foot Attending Provider: Mary Higgins Primary Care Provider: Addison Linn Chi Consulting Providers: Omega Portillo; Anjelica Rodas; Favian Suarez; Valeria Smith; Paulie Lugo; Paulie Valadez; Guille Ramirez; Eli Hull; Dontrell Fabian; Oksana Burrell; Marcelo Stoner; Mary Higgins; Shlomo Goins; Raymond Richardson; Gamaliel Whitehead; Sarita Kelly; Edwar Restrepo Instructions Patient Instructions: Post-Op Tips: Foot Additional Instructions / Restrictions: 1. Please keep your surgical dressing clean dry and intact. Do not remove. Do not get it wet. 2. Continue rest, ice (behind your operative knee) and elevate per your postoperative instructions that were given to you at the day of your surgical consultation while in office. 3. Patient may be partial weightbearing to left heel only with walker. Full weightbearing right foot. 4. Please take all pain medication and prescriptions as written. 5. If you are a diabetic patient please continue tight glucose control while in the postoperative phase. 6. Please continue to follow-up with all your doctors visits prior and after surgery. 7. Please reach out to Dr. Coleman, through the paging system in the hospital or private office with any questions or concerns. 8. Thank you for letting me be involved in your surgical care! Discharge Orders/Prescriptions Prescriptions: No Action folic acid 0.8 mg capsule 0.8 mg PO BID hydroxychloroquine [Plaquenil] 200 mg tablet 200 mg PO BID cyclobenzaprine 10 mg tablet 10 mg PO QHS PRN (Reason: pain) thyroid (pork) [Herscher Thyroid] 15 mg tablet 30 mg PO DAILY Patient Comments: 30MG ON FRI AND FRIDAY fluticasone propionate [Flovent HFA] 110 mcg/actuation HFA aerosol inhaler 1 puff inhalation BID PRN (Reason: ALLERGIES) magnesium oxide 500 mg capsule 500 mg PO DAILY hydrocodone-acetaminophen 5-325 mg tablet 1 tab PO Q6H PRN (Reason: pain) (DME) Handicap Placard See Rx Instructions .ROUTE .MEDSUPPLY Qty: 1 0RF Rx Instructions: As directed, length of time 3 years cholecalciferol (vitamin D3) 1,250 mcg (50,000 unit) capsule 1,250 mcg PO .EVERY OTHER WEEK Rx Instructions: This is prescribed by Dr. Kaba potassium chloride 10 mEq capsule, extended release 10 meq PO BID pantoprazole 40 mg tablet,delayed release (DR/EC) 40 mg PO DAILY methotrexate sodium 25 MG/ML solution 25 mg subcut QWEEK prednisone 5 mg tablet 5 mg PO DAILY Qty: 14 0RF Rx Instructions: start after finishing the 20 mg tabs (three per day) venlafaxine 37.5 mg tablet 37.5 mg PO QHS thyroid (pork) [Herscher Thyroid] 60 mg tablet 60 mg PO SUSA ferrous sulfate 325 mg (65 mg iron) tablet 325 mg PO PRN PRN (Reason: LOW IRON) Patient Comments: WHEN NOT CONSTIPATED, WILL TAKE IT, BUT IF CONSTIPATED DOESN'T TAKE IT vitamin E (dl, acetate) 180 mg (400 unit) capsule 180 mg PO BID Rx Instructions: 800 IU orally daily oxycodone-acetaminophen [Endocet] 5-325 mg tablet 1 tab PO Q6H 7 Days Qty: 28 0RF aspirin 81 mg tablet,delayed release (DR/EC) 81 mg PO DAILY 30 Days Qty: 30 0RF calcium carbonate-vitamin D3 [Os-William 500 + D3] 500 mg-15 mcg (600 unit) tablet 1 tab PO DAILY 90 Days Qty: 90 0RF ascorbic acid (vitamin C) [Vitamin C] 1,000 mg tablet 1 g PO DAILY 90 Days Qty: 90 0RF docusate sodium [Colace] 100 mg capsule 100 mg PO DAILY 10 Days Qty: 10 0RF doxycycline hyclate 100 mg capsule 100 mg PO DAILY 14 Days Qty: 14 0RF ipratropium-albuterol 0.5 mg-3 mg(2.5 mg base)/3 mL solution for nebulization 3 ml inhalation Q4H PRN PRN (Reason: SOB &/OR WHEEZING) Qty: 180 6RF ursodiol 300 mg capsule 300 mg PO BID Qty: 180 3RF sulfasalazine 500 mg tablet,delayed release (DR/EC) 1 g PO BID 90 Days Qty: 360 3RF Referrals / Follow Up: Chetan Coleman DPM [Med Staff - Active Staff] - Addison Linn Chi, MD [Primary Care Provider] - Disposition Disposition (needs filled in before D/C Order can be placed): Home, Self Care
[2024-06-14 20:04] VITALS: PULSE 87; RESP 18
[2024-06-14 20:27] VITALS: BP 132/68; PULSE 92; RESP 16; TEMP 36.7; O2SAT 95
[2024-06-14] MEDS: Venlafaxine XR 37.5 MG Capsule PO (20:34)
[2024-06-14 22:00] VITALS: BMI 38.9
--- NOTE | 2024-06-14 23:49 | NURSING ---
HOME MEDS IN SECURE BAG RETURNED TO [facility] FROM [facility]. SECURITY [facility]AG #[id number]
== END 2024-06-14 22:58 | disposition home or self-care (01) ==
LOC: ED 19:44 → MS3 21:31
PROVIDERS: Internal Medicine; Admitting Provider Podiatrist Foot & Ankle Surgery; Emergency Provider Emergency Medicine; PCP Family Medicine Geriatric Medicine; Visit Provider Student in an Organized Health Care Education/Training Program
DX: R53.1 Weakness (principal); M06.9 Rheumatoid arthritis, unspecified; E66.01 Morbid (severe) obesity due to excess calories; Z68.41 Body mass index [BMI] 40.0-44.9, adult; E11.9 Type 2 diabetes mellitus without complications; R53.81 Other malaise; D47.2 Monoclonal gammopathy; G89.4 Chronic pain syndrome; Z86.16 Personal history of COVID-19; F41.8 Other specified anxiety disorders; M20.42 Other hammer toe(s) (acquired), left foot; M54.50 Low back pain, unspecified; K21.9 Gastro-esophageal reflux disease without esophagitis; Z79.51 Long term (current) use of inhaled steroids; Z91.81 History of falling; G89.18 Other acute postprocedural pain; M19.072 Primary osteoarthritis, left ankle and foot; Z79.82 Long term (current) use of aspirin; Z86.0101 Personal history of adenomatous and serrated colon polyps; Z79.890 Hormone replacement therapy; K58.9 Irritable bowel syndrome, unspecified; I10 Essential (primary) hypertension; E03.9 Hypothyroidism, unspecified; M35.00 Sjogren syndrome, unspecified; J45.909 Unspecified asthma, uncomplicated; K76.0 Fatty (change of) liver, not elsewhere classified; D50.9 Iron deficiency anemia, unspecified; Z79.899 Other long term (current) drug therapy; Z79.52 Long term (current) use of systemic steroids; E23.0 Hypopituitarism; E27.40 Unspecified adrenocortical insufficiency; Z98.1 Arthrodesis status
CPT/HCPCS: 36415; 80048; 80053; 81001; 82550; 83036; 83735; 84100; 84443; 85025; 93005; 94640; 94668; 96372; 96374; 97162; 97166; 97530; 97535; 99221; 99285; J7030; A4216; G0378

== ENCOUNTER 2024-08-07 16:29 | Inpatient (IN) | payer MEDICARE, OTHER, SELFPAY ==
[2024-08-07 16:31] VITALS: PULSE 78; RESP 16; TEMP 37.1; O2SAT 98; BMI 42.5
--- NOTE | 2024-08-07 17:13 | RAD_ITS ---
INDICATION: Injury/Pain EXAMINATION/TECHNIQUE: X-RAY - LEFT XR Shoulder Min 2 Views 3 VIEWS COMPARISON: Prior study dated: Left humerus radiographs today FINDINGS: SOFT TISSUES: No soft tissue swelling or gas. No radiopaque foreign body. The visualized lung is clear. BONES/JOINTS: There is a mildly impacted left humeral neck fracture. The glenohumeral joint remains aligned. There is narrowing of the joint space with osteophyte formation.. The acromioclavicular joint is intact with mild hypertrophic degenerative change. The visualized ribs are intact.. No sclerotic or destructive changes observed. RAD/Shoulder min 2 Views IMPRESSION: Mildly impacted left humeral neck fracture. Degenerative changes at the shoulder. Electronically Signed: Nikhil Snyder MD at 19:35 EST ,
[2024-08-07] MEDS: fentaNYL 100 MCG/2 ML Ampul 75 MCG IV (17:38)
--- NOTE | 2024-08-07 17:48 | EX.ED.GENINJ ---
HPI History of Present Illness Chief Complaint: Fall Informant: patient Narrative Narrative: Patient is a 73-year-old female with history of nonalcoholic fatty liver disease, borderline type 2 diabetes mellitus, adrenal insufficiency, hypertension, hypothyroid, Sjogren's disease and recent left foot surgery in June with Dr. Jacob. Just the last week she was started to become weightbearing as tolerated wears a boot and uses a walker. She states her walker does not fit into her bedroom (she lives alone). She was trying to go into her bedroom and also needed to move her back. She then clipped her foot in the boot on the door frame and fell forward. She landed directly onto her left shoulder. She denied hitting her head. She denies any loss of conscious. She is having significant pain of her left shoulder rating down her arm. She is brought in by EMS for pain control and further evaluation. Patient received 50 mcg of fentanyl prior to arrival. Patient states that she really cannot take any pain medications because of side effects. She also states that she does not take Tylenol ibuprofen because she both renal insufficiency and fatty liver. Denies use of send numbness or tingling. No other complaints or concerns reported at this time. [facility] Medical History Alcohol use History of steroid therapy Fatty liver History of IBS History of edema Abrasion, left knee, initial encounter Contusion of left knee Contusion of right middle finger Strain of right middle finger Chest wall contusion Sternum pain Health care maintenance Flu vaccine need Dermatitis Muscular abdominal pain in right flank Sjogren's disease Breast cancer screening Malaise and fatigue Anemia Fatty liver disease, nonalcoholic Wears glasses Thyroid disease Rheumatoid arthritis Injury of head and neck Difficulty swallowing Gastric reflux Non-smoker Asthma CPAP (continuous positive airway pressure) dependence History of echocardiogram History of stress test Cardiology follow-up encounter History of colon polyps Obesity Abnormal laboratory test Constipation Unsteady gait Borderline type 2 diabetes mellitus Macromastia Screening for diabetes mellitus BMI greater than 40 Anxiety and depression Radiculopathy Hypokalemia COVID-19 virus detected (05/09/20) Chronic neck and back pain Difficulty balancing when standing Shoulder pain Adrenal insufficiency SOB (shortness of breath) Obesity Essential (primary) hypertension Airway polyps Adenomatous polyps FH: colon cancer in first degree relative <60 years old Sinusitis Otitis media Limb weakness Fatigue Acute bronchitis Hypopituitarism Dyspnea Osteopenia Osteoarthritis Basal cell carcinoma Vitamin D deficiency Arthritis Hypersomnia Cellulitis of right lower leg MGUS (monoclonal gammopathy of unknown significance) Hypothyroidism Home Medications ?Medication ?Instructions ?Recorded ?Last Taken ?Type folic acid 0.8 mg capsule 0.8 mg PO BID supplement 07/14/18 04/14/24 History hydroxychloroquine 200 mg tablet 200 mg PO BID ra 09/01/18 06/11/24 History (Plaquenil) methotrexate sodium 25 mg/mL 25 mg subcut QWEEK 09/25/20 04/04/24 History injection solution fluticasone propionate 110 1 puff inhalation BID PRN ALLERGIES 06/12/21 10/24/21 09:00 History mcg/actuation HFA aerosol inhaler (Flovent HFA) magnesium oxide 500 mg capsule 500 mg PO DAILY 09/11/21 04/13/24 History prednisone 5 mg tablet 5 mg PO DAILY #14 tabs 02/01/22 06/11/24 Rx Handicap Placard #1 ea 11/22/22 Unknown Rx ipratropium 0.5 mg-albuterol 3 mg 3 ml inhalation Q4H PRN PRN SOB 05/20/23 Unknown Rx (2.5 mg base)/3 mL nebulization &/OR WHEEZING #180 mL soln potassium chloride 10 mEq 10 meq PO BID 07/22/23 04/14/24 History capsule,extended release ursodiol 300 mg capsule 300 mg PO BID #180 caps 12/17/23 04/14/24 Rx sulfasalazine 500 mg 1 g (2 x 500 mg) PO BID 90 days 01/23/24 04/14/24 Rx tablet,delayed release #360 tabs venlafaxine 37.5 mg tablet 37.5 mg PO QHS 04/13/24 04/14/24 History pantoprazole 40 mg tablet,delayed 40 mg PO DAILY 05/17/24 06/11/24 History release thyroid (pork) 15 mg tablet 30 mg PO DAILY 05/17/24 Unknown History ([place] Thyroid) thyroid (pork) 60 mg tablet 60 mg PO SUSA 06/08/24 Unknown History ([place] Thyroid) vitamin E (dl, acetate) 180 mg 180 mg PO BID 06/08/24 Unknown History (400 unit) capsule calcium 500 mg (as 1 tab PO DAILY 90 days #90 tabs 06/11/24 Unknown Rx carbonate)-vitamin D3 15 mcg (600 unit) tablet (Os-William 500 + D3) amiloride 5 mg-hydrochlorothiazide 0.5 tab PO DAILY 07/21/24 Unknown History 50 mg tablet oxycodone-acetaminophen 5 mg-325 1 tab PO Q6H PRN pain 07/21/24 Unknown History mg tablet (Endocet) Allergy/AdvReac Type Severity Reaction Status Date / Time milk Allergy Mild Diarrhea Verified 08/07/24 16:30 phenytoin sodium (From Allergy Mild Rash Verified 08/07/24 16:30 Dilantin) phenytoin sodium extended Allergy Mild Rash Verified 08/07/24 16:30 (From Dilantin) ketorolac tromethamine (From Allergy Anaphylaxis Verified 08/07/24 16:30 Toradol) melon Allergy NEEDS Verified 08/07/24 16:30 FOLLOW-UP morphine AdvReac Severe Other Verified 08/07/24 16:30 Family History Father Cancer father passed of lung CA at 55 Mother Dementia Osteoarthritis COPD (chronic obstructive pulmonary disease) Brother Myocardial infarction, Onset Age: 49 Aunt Multiple sclerosis Sister Colon cancer Breast cancer Aunt Celiac disease Surgical History Status post left foot surgery History of cardiac catheterization Hx of colonoscopy Hx of oral surgery History of tonsillectomy and adenoidectomy S/P knee surgery H/O dilation and curettage History of cataract surgery History of orthopedic surgery History of carpal tunnel release S/P bunionectomy S/P excision of Molina's neuroma History of carpal tunnel surgery History of cholecystectomy History of hysterectomy History of 2 sections Status post total right knee replacement Social History Smoking Status: Never smoker alcohol intake: current alcohol intake frequency: a few times a month Alcohol type: wine substance use type: does not use what type of physical activity do you participate in: walking, bicycling and swimming frequency: 3-4 times per week 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 [employer] ER ROS ROS ED Constitutional Constitutional ED: Denies chills or fever(s) Eyes Eyes: Denies change in vision Cardiovascular Cardiovascular: Denies chest pain Respiratory/Chest Respiratory/Chest: Denies cough Gastrointestinal Gastrointestinal: Denies nausea or vomiting Musculoskeletal Musculoskeletal: Reports other Details: Left shoulder pain Integumentary Denies rash Neurologic Neurologic: Denies headache(s), paresthesias or weakness Psychiatric Psychiatric: Reports anxiety Hematologic/Lymphatic Hematologic/Lymphatic: Denies easy bleeding or easy bruising EXAM Physical Exam Const Vital Signs: 08/07/24 16:31 08/07/24 18:30 08/07/24 20:00 Temperature 98.7 F Temperature Source Oral Pulse Rate 78 78 89 Respiratory Rate 16 18 15 Blood Pressure 128/78 H 103/51 L Blood Pressure Mean 94 68 Pulse Ox 98 98 98 Oxygen Delivery Method Room Air Room Air Room Air 08/07/24 20:30 08/07/24 22:09 Temperature 97.8 F Temperature Source Pulse Rate 95 91 Respiratory Rate 16 16 Blood Pressure 132/50 H 120/78 Blood Pressure Mean 77 92 Pulse Ox 99 96 Oxygen Delivery Method Room Air Positive well nourished and well developed General Appearance ED: well developed and NAD HEENT Reports TM's clear atraumatic Nose: Negative for septum abnormal Tympanic Membrane ED: Yes TM's clear Eyes PERRL and EOMs intact bilaterally Neck full ROM General: Negative for tenderness Chest Wall inspection of chest normal and palpation of chest normal Chest Narrative: No chest wall crepitus appreciated Resp normal respiratory effort and clear to auscultation bilaterally Cardio regular rhythm and no murmurs Cardio Narrative: 2+ radial pulses Rate: regular rate GI normal to inspection, nondistended, normoactive bowel sounds and non-tender Extremity Extremity Narrative: Patient holding her left arm tucked into her torso. Is complain of significant pain of her left shoulder but would not allow me to attempt range of motion even of her elbow. Does have pain on palpation of the proximal humerus and shoulder. No obvious deformity appreciated. No significant tenderness along the clavicle with palpation. Normal movements of the fingers. No other bony tenderness or deformity of the right arm or lower extremities appreciated. Pelvis is stable. Neuro oriented x3, no focal motor deficits and no sensory deficits noted Sensorium / Orientation: alert, oriented to person, oriented to place and oriented to time Psych thought process normal Mood & Affect: anxious Skin no rashes or lesions noted and no wounds MDM MDM MDM Narrative Medical decision making narrative: Patient evaluated for left shoulder pain after mechanical fall. Patient is weightbearing as tolerated but uses a walker to ambulate after a relatively extensive left foot and ankle surgery referral by Dr. Coleman. She lives home alone. Patient receives fentanyl for pain control with no significant improvement. This is switch to Dilaudid. She reports allergy to opioids but sounds like is more personality change and not a true allergy. Patient is found to have proximal left humerus fracture. This is consistent with her physical exam. She is neuro vastly intact. Given that patient is walker dependent and is in significant pain I do not think she be discharged home. I suspect she likely will require admission for rehab or snf. Patient is agreeable with plan for admission and knows that she might need to be admitted to rehab facility or nursing facility given her acute injury with her comorbidities. She is agreeable with this. Patient does have a leukocytosis of 14.2 which is nonspecific. Do not have an obvious source however urinalysis is ordered as well as lactate. These are normal. BMP shows mild hypokalemia potassium 3.1. Patient will be ordered dose of oral potassium in the emergency room. Case discussed with hospitalist, Dr. Harris will be admitted. Lab Data Attestation: I reviewed the patient's lab results. Labs: Laboratory Results - last 24 hr 08/07/24 08/07/24 08/07/24 20:14 20:38 22:03 WBC 14.2 H RBC 3.59 L Hgb 11.2 L Hct 34.7 L MCV 96.7 MCH 31.2 MCHC 32.3 RDW Std Deviation 45.5 H RDW Coeff of Rosamaria 12.7 Plt Count 333 MPV 9.0 Immature Gran % (Auto) 0.600 Neut % (Auto) 81.4 H Lymph % (Auto) 12.3 L Tripp % (Auto) 5.3 Eos % (Auto) 0.1 Baso % (Auto) 0.3 Absolute Neuts (auto) 11.6 H Absolute Lymphs (auto) 1.75 Nucleated RBC % 0 Sodium 138 Potassium 3.1 L Chloride 108 H Carbon Dioxide 22.0 Anion Gap 8 BUN 16 Creatinine 0.68 Estim Creat Clear Calc 81.99 Est GFR (MDRD) Af Amer 110 Est GFR (MDRD) Non-Af 91 BUN/Creatinine Ratio 23.7 H Glucose 138 H Lactic Acid 0.9 Calcium 8.6 Urine Color Yellow Urine Clarity Cloudy Urine pH 7.0 Ur Specific [place] 1.010 Urine Protein Negative Urine Glucose (UA) Normal Urine Ketones 5 H Urine Occult Blood Negative Urine Nitrite Negative Urine Bilirubin Negative Urine Urobilinogen Normal Ur Leukocyte Esterase Negative Urine RBC 0-5 SEEN Urine WBC 0 SEEN Ur Squamous Epith Cells 0-5 SEEN Amorphous Sediment 1+ Urine Bacteria 1+ Urine Mucus 0 SEEN Radiography Diagnostic Testing: Clinical Impression(s) from Imaging Studies Shoulder X-Ray 08/07/24 17:13 IMPRESSION: Mildly impacted left humeral neck fracture. Degenerative changes at the shoulder. Electronically Signed: Nikhil Snyder MD at 19:35 EST , Humerus X-Ray 08/07/24 17:50 IMPRESSION: Left humeral neck fracture. Electronically Signed: Nikhil Snyder MD at 19:34 EST , Discharge Plan Triage Chief Complaint: Fall ED Provider: Lisa Barraza Dx/Rx/DC Orders Clinical Impression: Closed left humeral fracture, S/P foot surgery, left, Debility, Leukocytosis Primary Care Provider: Care Physician,No Primary Disposition Disposition: Acute Care Hospital [facility]
--- NOTE | 2024-08-07 17:50 | RAD_ITS ---
INDICATION: Injury/Pain EXAMINATION/TECHNIQUE: X-RAY - LEFT XR Humerus Min 2 Views 3 images COMPARISON: No relevant prior comparison study available FINDINGS: SOFT TISSUES: No soft tissue swelling or gas. No radiopaque foreign body. The visualized lung is clear. BONES/JOINTS: There is a left humeral neck fracture with mild impaction.. The glenohumeral joint is aligned with degenerative changes. Mild hypertrophic degenerative change at the acromioclavicular joint. The elbow is well. Preservation of the joint space.. No sclerotic or destructive changes observed. RAD/Humerus min 2 Views IMPRESSION: Left humeral neck fracture. Electronically Signed: Nikhil Snyder MD at 19:34 EST ,
[2024-08-07 18:30] VITALS: BP 128/78; PULSE 78; RESP 18; O2SAT 98
[2024-08-07 20:00] VITALS: BP 103/51; PULSE 89; RESP 15; O2SAT 98
[2024-08-07] MEDS: HYDROmorphone 0.5 MG/0.5 ML SYRINGE IV (20:23)
[2024-08-07 20:29] LABS: Absolute Lymphocyte Count 1.75 X10^3/uL (0.83-4.51); Absolute Neutrophil Count 11.6 X10^3/uL (2.0-7.7); Basophil# 0.04 X10^3/uL; Basophil% 0.3 % (0-1); Eosinophil# 0.02 X10^3/uL; Eosinophils% 0.1 % (0-5); Hematocrit 34.7 % (37-47); Hemoglobin 11.2 g/dL (12.0-15.0); Lymphocyte # 1.75 X10^3/ul (0.83-4.51); Lymphocyte % 12.3 % (19-41); Mean Corp Hgb Conc 32.3 g/dL (32-36); Mean Corpuscular Hgb 31.2 pg (27.0-32.0); Mean Corpuscular Volume 96.7 fL (81-99); Monocyte# 0.75 X10^3/uL; Monocyte% 5.3 % (0-10); NRBC Flagged by Analyzer 0 % (0-5); Neutrophil # 11.57 X10^3/uL (2.7-7.7); Neutrophil % 81.4 % (47-70); Platelet Count 333 K/mm3 (150-450); RBC Distribution Width CV 12.7 % (11.6-14.6); RBC Distribution Width SD 45.5 fl (35.1-43.9); Red Blood Count 3.59 M/mm3 (4.2-5.4); White Blood Count 14.2 K/mm3 (4.4-11.0)
[2024-08-07 20:30] VITALS: BP 132/50; PULSE 95; RESP 16; TEMP 36.6; O2SAT 99
[2024-08-07 20:41] LABS: Anion Gap 8 (5-15); BUN 16 mg/dL (7-18); BUN/Creat Ratio 23.7 RATIO (10-20); Calcium,Total 8.6 mg/dL (8.5-10.1); Chloride 108 mmol/L (98-107); Creatinine, Serum 0.68 mg/dL (0.55-1.02); EST Glomerular Filtration Rate 91 mL/min (>60); Est Glom Filt Rate - Afr Amer 110 mL/min (>60); Estimated Creatinine Clearance 81.99 ml/min; Glucose 138 mg/dL (74-106); Potassium 3.1 mmol/L (3.5-5.1); Sodium Level 138 mmol/L (136-145)
[2024-08-07 21:09] LABS: Lactic Acid 0.9 mmol/L (0.4-1.9)
[2024-08-07 22:07] LABS: Mucous, Urine 0 SEEN /hpf (<or=2+); White Blood Cells 0 SEEN /hpf (0-5)
--- NOTE | 2024-08-07 22:08 | ED.RN ---
PATRICIA LADD REQUESTED TO BE CALLED WITH PT'S ROOM #: [phone]
[2024-08-07 22:09] VITALS: BP 120/78; PULSE 91; RESP 16; O2SAT 96
[2024-08-07 22:11] LABS: Color, Urine Yellow (Yellow); Glucose, Dipstick Normal (Normal); Ketone-Dipstick 5 mg/dl (Negative); Leukocyte Esterase-Dipstick Negative /ul (Negative); Nitrite-Dipstick Negative (Negative); Occult Blood-Urine Negative /ul (Negative); Protein-Dipstick Negative (Negative); Urine Bilirubin Dipstick Negative (Negative); Urine Clarity Cloudy (Clear); Urine Urobilinogen Normal (Normal)
[2024-08-07 22:33] LABS: Squamous Epithelial Cells - UA 0-5 SEEN /hpf (5-10)
[2024-08-07 22:34] LABS: Amorphous Sediment 1+; Bacteria 1+ /hpf (None Seen)
[2024-08-07 22:35] LABS: Red Blood Cells-Urine 0-5 SEEN /hpf (0-5)
--- NOTE | 2024-08-07 23:02 | PCM.HP.STD ---
[facility] - General General Date of Admission: 08/07/24 Date of Service: 08/07/24 Chief Complaint: Fall with Left Humeral Fracture. HPI Narrative MITCHELL DEJESUS, is a 73 F with a past medical history of essential hypertension, hypothyroidism, morbid obesity; with BMI of 41.9 this admission, central sleep apnea; on CPAP, NAFLD, DM-2; of unknown control, hypopituitarism, adrenal insufficiency, Sjogren's disease, RA, 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 Coleman June 2024 who presents [address] [facility] ER complaining of severe Left arm pain after fall. Ms. Dejesus reports her symptoms began approximately 1 hour prior to arrival when she was trying to go to into her bathroom and needed to move backward when she stumbled over a boot on the door frame and fell forward directly onto her left elbow jamming her Left elbow shoulder with subsequent severe Left arm pain. She denies loss of consciousness or significant head trauma with her fall. She states her pain is severe aching and radiating down her entire left arm with patient unable to move it or even be touched without severe worsening. She then activated EMS who administered 50 mcg of fentanyl IV prior to arrival. Patient is chronically anxious and difficult to manage stating that she cannot take pain medications due to side effects and she cannot take Tylenol due to her nonalcoholic alcoholic fatty liver disease and cannot take ibuprofen because of her renal insufficiency. She denies associated numbness or tingling in her Left arm. She denies associated fever, chills, nausea, vomiting, chest pain, shortness of breath or headache but she does admit to heightened anxiety and occasional dry cough. Patient lives at home alone and cannot care for herself in her current condition due to her recent Left foot surgery and now with a Left humeral fracture that is left her unable to use a walker to mobilize meaning she will likely have to transition to an ECF for the time being. In the ER she was noted to have x-ray evidence of a mildly impacted Left humeral neck fracture with degenerative changes at the shoulder complicated by clinical evidence of Intractable Pain and she was then admitted to the general medical floor for ongoing care for status is expected to extend beyond 2 midnights with formal orthopedic surgery consultation pending in the a.m. and appreciated in advance. [facility] Medical History Alcohol use History of steroid therapy Fatty liver History of IBS History of edema Abrasion, left knee, initial encounter Contusion of left knee Contusion of right middle finger Strain of right middle finger Chest wall contusion Sternum pain Health care maintenance Flu vaccine need Dermatitis Muscular abdominal pain in right flank Sjogren's disease Breast cancer screening Malaise and fatigue Anemia Fatty liver disease, nonalcoholic Wears glasses Thyroid disease Rheumatoid arthritis Injury of head and neck Difficulty swallowing Gastric reflux Non-smoker Asthma CPAP (continuous positive airway pressure) dependence History of echocardiogram History of stress test Cardiology follow-up encounter History of colon polyps Obesity Abnormal laboratory test Constipation Unsteady gait Borderline type 2 diabetes mellitus Macromastia Screening for diabetes mellitus BMI greater than 40 Anxiety and depression Radiculopathy Hypokalemia COVID-19 virus detected (05/09/20) Chronic neck and back pain Difficulty balancing when standing Shoulder pain Adrenal insufficiency SOB (shortness of breath) Obesity Essential (primary) hypertension Airway polyps Adenomatous polyps FH: colon cancer in first degree relative <60 years old Sinusitis Otitis media Limb weakness Fatigue Acute bronchitis Hypopituitarism Dyspnea Osteopenia Osteoarthritis Basal cell carcinoma Vitamin D deficiency Arthritis Hypersomnia Cellulitis of right lower leg MGUS (monoclonal gammopathy of unknown significance) Hypothyroidism Home Medications ?Medication ?Instructions ?Recorded ?Last Taken ?Type folic acid 0.8 mg capsule 0.8 mg PO BID supplement 07/14/18 04/14/24 History hydroxychloroquine 200 mg tablet 200 mg PO BID ra 09/01/18 06/11/24 History (Plaquenil) methotrexate sodium 25 mg/mL 25 mg subcut QWEEK rheumatoid 09/25/20 08/01/24 History injection solution arthritis fluticasone propionate 110 1 puff inhalation BID PRN ALLERGIES 06/12/21 10/24/21 09:00 History mcg/actuation HFA aerosol inhaler (Flovent HFA) magnesium oxide 500 mg capsule 500 mg PO DAILY 09/11/21 04/13/24 History prednisone 5 mg tablet 5 mg PO DAILY #14 tabs 02/01/22 06/11/24 Rx Handicap Placard #1 ea 11/22/22 Unknown Rx ipratropium 0.5 mg-albuterol 3 mg 3 ml inhalation Q4H PRN PRN SOB 05/20/23 Unknown Rx (2.5 mg base)/3 mL nebulization &/OR WHEEZING #180 mL soln potassium chloride 10 mEq 10 meq PO BID 07/22/23 04/14/24 History capsule,extended release ursodiol 300 mg capsule 300 mg PO BID #180 caps 12/17/23 04/14/24 Rx sulfasalazine 500 mg 1 g (2 x 500 mg) PO BID 90 days 01/23/24 04/14/24 Rx tablet,delayed release #360 tabs venlafaxine 37.5 mg tablet 37.5 mg PO QHS 04/13/24 04/14/24 History pantoprazole 40 mg tablet,delayed 40 mg PO DAILY 05/17/24 06/11/24 History release thyroid (pork) 15 mg tablet 30 mg PO MOTUWETHFR thyroid 05/17/24 Unknown History ([place] Thyroid) thyroid (pork) 60 mg tablet 60 mg PO SUSA 06/08/24 Unknown History ([place] Thyroid) vitamin E (dl, acetate) 180 mg 180 mg PO BID 06/08/24 Unknown History (400 unit) capsule calcium 500 mg (as 1 tab PO DAILY 90 days #90 tabs 06/11/24 Unknown Rx carbonate)-vitamin D3 15 mcg (600 unit) tablet (Os-William 500 + D3) amiloride 5 mg-hydrochlorothiazide 0.5 tab PO DAILY 07/21/24 Unknown History 50 mg tablet oxycodone-acetaminophen 5 mg-325 1 tab PO Q6H PRN pain 07/21/24 Unknown History mg tablet (Endocet) Allergy/AdvReac Type Severity Reaction Status Date / Time milk Allergy Mild Diarrhea Verified 08/07/24 16:30 phenytoin sodium (From Allergy Mild Rash Verified 08/07/24 16:30 Dilantin) phenytoin sodium extended Allergy Mild Rash Verified 08/07/24 16:30 (From Dilantin) ketorolac tromethamine (From Allergy Anaphylaxis Verified 08/07/24 16:30 Toradol) morphine AdvReac Severe Other Verified 08/07/24 16:30 Family History Father Cancer father passed of lung CA at 55 Mother Dementia Osteoarthritis COPD (chronic obstructive pulmonary disease) Brother Myocardial infarction, Onset Age: 49 Aunt Multiple sclerosis Sister Colon cancer Breast cancer Aunt Celiac disease Surgical History Status post left foot surgery History of cardiac catheterization Hx of colonoscopy Hx of oral surgery History of tonsillectomy and adenoidectomy S/P knee surgery H/O dilation and curettage History of cataract surgery History of orthopedic surgery History of carpal tunnel release S/P bunionectomy S/P excision of Molina's neuroma History of carpal tunnel surgery History of cholecystectomy History of hysterectomy History of 2 sections Status post total right knee replacement Social History Smoking Status: Never smoker alcohol intake: current alcohol intake frequency: a few times a month Alcohol type: wine substance use type: does not use what type of physical activity do you participate in: walking, bicycling and swimming frequency: 3-4 times per week 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 Eyes: Patient denies changes in vision or discharge from eyes. ENT: Patient denies runny nose, sore throat or ear pain. Resp: Patient denies shortness of breath but she admits to occasional dry cough. CV: Patient denies chest pain, palpitations or heart racing. GI: Patient denies abdominal pain, nausea, vomiting, diarrhea or constipation. MSK: Patient admits to severe Left shoulder pain radiating down her entire Left arm as per HPI. Skin: Patient denies rash, abscess or jaundice. Psych: Patient admits to heightened anxiety due to pain but she denies SI or HI. Neuro: Patient denies headache, paresthesias or focal neurologic deficits. Allergy: Patient denies lip swelling, tongue swelling or urticaria. Hematology: Patient denies easy bleeding or easy bruisability. Endocrinology: Patient denies polyuria, polydipsia or polyphagia. 14 point review of systems otherwise negative except for positives noted above in HPI. Vital Signs Vital Signs Vital Signs: 08/07/24 16:31 08/07/24 18:30 08/07/24 20:00 Temperature 98.7 F Temperature Source Oral Pulse Rate 78 78 89 Respiratory Rate 16 18 15 Blood Pressure 128/78 H 103/51 L Blood Pressure Mean 94 68 Pulse Ox 98 98 98 Oxygen Delivery Method Room Air Room Air Room Air 08/07/24 20:30 08/07/24 22:09 Temperature 97.8 F Temperature Source Pulse Rate 95 91 Respiratory Rate 16 16 Blood Pressure 132/50 H 120/78 Blood Pressure Mean 77 92 Pulse Ox 99 96 Oxygen Delivery Method Room Air Weight Weight: 255 lb 4.725 oz Body Mass Index (BMI) 42.5 Physical Exam Const alert and oriented x3 Constitutional Narrative: Patient severely obese and notably anxious. General Appearance: cooperative HEENT normocephalic, head/scalp atraumatic, hearing grossly normal bilaterally and moist oral mucous membranes Eyes PERRL and EOMs intact bilaterally Neck no lymphadenopathy and supple Resp normal respiratory effort, no retractions, no use of accessory muscles and clear to auscultation bilaterally Cardio regular rate and regular rhythm GI normal to inspection, nondistended, normoactive bowel sounds, soft to palpation, non-tender and non-distended GI Narrative: Severe obesity. Extremity Extremity Narrative: Patient has her left upper extremity in a sling with significant pain to minimal movement or palpation. There are no signs of vascular compromise. No other bony tenderness or deformities were noted. Skin Skin Narrative: Patient has no evidence of rash, abscess or jaundice. Neuro oriented x3, CN's II-XII intact bilaterally and no focal motor deficits Neuro Narrative: Patient cannot move her Left arm without severe pain. Sensorium / Orientation: awake, alert, oriented to person, oriented to place and oriented to time Speech: speech normal Psych Mood & Affect: anxious Results Medical Records Data Attestation: I reviewed the patient's medical records Lab / Micro Data Attestation: I reviewed the patient's lab results. 08/08/24 03:56 08/07/24 20:14 Labs: Laboratory Results - last 24 hr 08/07/24 20:14: WBC 14.2 H, RBC 3.59 L, Hgb 11.2 L, Hct 34.7 L, MCV 96.7, MCH 31.2, MCHC 32.3, RDW Std Deviation 45.5 H, RDW Coeff of Rosamaria 12.7, Plt Count 333, MPV 9.0, Immature Gran % (Auto) 0.600, Neut % (Auto) 81.4 H, Lymph % (Auto) 12.3 L, [place] % (Auto) 5.3, Eos % (Auto) 0.1, Baso % (Auto) 0.3, Absolute Neuts (auto) 11.6 H, Absolute Lymphs (auto) 1.75, Nucleated RBC % 0, Sodium 138, Potassium 3.1 L, Chloride 108 H, Carbon Dioxide 22.0, Anion Gap 8, BUN 16, Creatinine 0.68, Estim Creat Clear Calc 81.99, Est GFR (MDRD) Af Amer 110, Est GFR (MDRD) Non-Af 91, BUN/Creatinine Ratio 23.7 H, Glucose 138 H, Calcium 8.6 08/07/24 20:38: Lactic Acid 0.9 08/07/24 22:03: Urine Color Yellow, Urine Clarity Cloudy, Urine pH 7.0, Ur Specific [place] 1.010, Urine Protein Negative, Urine Glucose (UA) Normal, Urine Ketones 5 H, Urine Occult Blood Negative, Urine Nitrite Negative, Urine Bilirubin Negative, Urine Urobilinogen Normal, Ur Leukocyte Esterase Negative, Urine RBC 0-5 SEEN, Urine WBC 0 SEEN, Ur Squamous Epith Cells 0-5 SEEN, Amorphous Sediment 1+, Urine Bacteria 1+, Urine Mucus 0 SEEN Imaging Radiology Impression Shoulder X-Ray 08/07/24 17:13 IMPRESSION: Mildly impacted left humeral neck fracture. Degenerative changes at the shoulder. Electronically Signed: Nikhil Snyder MD at 19:35 EST , Humerus X-Ray 08/07/24 17:50 IMPRESSION: Left humeral neck fracture. Electronically Signed: Nikhil Snyder MD at 19:34 EST , Assessment & Plan Assessment/Plan (1) Closed left humeral fracture: QUALIFIERS: Encounter type: initial encounter Humerus Location: proximal Fracture morphology: unspecified fracture morphology Qualified Code(s): S42.A - Unspecified fracture of upper end of left humerus, initial encounter for closed fracture (2) Fall: QUALIFIERS: Encounter type: initial encounter Qualified Code(s): W19.XXXA - Unspecified fall, initial encounter (3) Intractable pain: (4) Severe anxiety: (5) S/P foot surgery, left: (6) Obesity (BMI 30-39.9): (7) Sleep apnea: QUALIFIERS: Sleep apnea type: obstructive Qualified Code(s): G47.33 - Obstructive sleep apnea (adult) (pediatric) (8) Hypokalemia: (9) Nonalcoholic fatty liver disease: PLAN: Plan 1. Fall at home with impacted Left humeral neck fracture evident on x-ray this admission - Admit to general medical floor. Place LUE in sling and consult orthopedic surgery to see patient on rounds in the a.m. for further recommendations with help appreciated in advance. 2. Intractable pain with Severe Anxiety amplified by having to take pain medications to control her symptoms complicating #1 - Give Dilaudid IV prn for severe (level 6-10/10) pain. Patient declines to take NSAIDs or Tylenol. 3. Hypokalemia of 3.1 mmol/L present on admission compounding #1 & #2 - Give supplemental KCl and then recheck level in AM to confirm repletion. 4. Recent podiatric surgery on the Left foot by Dr. Coleman June 2024 with patient's foot still in boot and not completely healed adding to the medical complexity of #1 - #3 - Noted. 5. Obesity; with a BMI of 38.6 this admission adding to the burden of disease outlined from #1 - #4 - Weight loss will be recommended. Check TSH. This complicates her case and may hamper recovery as she now cannot use a walker after recent foot surgery with patient unable to care for herself as she lives at home alone so ECF is essentially unavoidable. Finally, we will consult PT/OT and case management to see this patient on rounds in the a.m. for further recommendations regarding ECF placement with help appreciated in advance. 6. Essential hypertension - Maintain home regimen plus give Hydralazine IV prn for systolic blood pressure > 160 mmHg. 7. Hypothyroidism - Continue thyroid hormone replacement as before and check TSH. 8. NAFLD - Stable. We will attempt to avoid potentially hepatotoxic agents. 9. DM-2; of unknown control - ADA diet. FSBS q. AC/HS plus SSI. Check HgbA1c to objectively asses quality of diabetic control. 10. History of Hypopituitarism and Adrenal Insufficiency - Noted. 11. Sjogren's disease - Resume home medications. 12. RA - Stable with no evidence of acute flare. 13. History of MGUS (11/2023) - Noted. 14. History of asthma - Stable with no evidence of acute flare at this time. Give nebulizers prn. 15. FAITH - Stable with hemoglobin of 11.1 g/dL with MCV of 96.9 fL present on admission. 16. History of COVID-19 (2019) - Noted. 17. History of basal cell carcinoma - Noted. 18. History of RLE cellulitis - Noted. 19. Depression with anxiety - Continue current agents plus give prn Xanax for breakthrough symptoms. 20. History of adenomatous colon polyps - Noted. 21. History of IBS - Stable. 22. GERD; with history of Roman's esophagus - Resume PPI as previous. 23. Listed allergy to Toradol (anaphylaxis) - We will avoid this agent. 24. Listed allergy to Dilantin (rash) - Noted. 25. DVT prophylaxis - Give Heparin 5,000 U sq BID plus RLE SCD. Total time: Approximately (but not less than) 75 minutes. Charges/Coding Visit Charges Inpatient E&M: 77059 Init Hosp L3
[2024-08-08] VITALS (8 sets, daily range): BP systolic 125–149; BP diastolic 57–78; PULSE 77–95; RESP 16–20; TEMP 36.6–37.4; O2SAT 97–100; BMI 39.1; BMI 38.6
[2024-08-08] MEDS: Potassium Chloride Oral Tablet 20 MEQ PO ×2 (00:14→16:26)
[2024-08-08] MEDS: KCL 20MEQ in 0.9% NS 20 MEQ/1,000 ML IV.SOLN. 70 MEQ IV (02:26)
[2024-08-08] MEDS: Lidocaine 5% Patch 2 PATCH TOPICAL (02:40)
[2024-08-08] MEDS: HYDROmorphone 0.5 MG/0.5 ML SYRINGE IV ×5 (02:40→23:23)
[2024-08-08] MEDS: Thyroid 60 MG Tablet PO (05:03)
[2024-08-08 05:21] LABS: Absolute Neutrophil Count 7.4 X10^3/uL (2.0-7.7); Basophil# 0.04 X10^3/uL; Basophil% 0.4 % (0-1); Eosinophil# 0.07 X10^3/uL; Eosinophils% 0.7 % (0-5); Hematocrit 34.6 % (37-47); Hemoglobin 11.1 g/dL (12.0-15.0); Lymphocyte % 19.5 % (19-41); Mean Corp Hgb Conc 32.1 g/dL (32-36); Mean Corpuscular Hgb 31.1 pg (27.0-32.0); Mean Corpuscular Volume 96.9 fL (81-99); Mean Platelet Vol. 9.2 fl (6.2-12.0); Monocyte# 0.72 X10^3/uL; NRBC Flagged by Analyzer 0 % (0-5); Platelet Count 327 K/mm3 (150-450); RBC Distribution Width CV 12.7 % (11.6-14.6); RBC Distribution Width SD 45.4 fl (35.1-43.9); Red Blood Count 3.57 M/mm3 (4.2-5.4); White Blood Count 10.3 K/mm3 (4.4-11.0)
--- NOTE | 2024-08-08 06:17 | NURSING ---
Patient demanding to get up to chair after primary RN explained to her not safe. Yelling at staff to get out of her room and do not touch her. Patient getting up to edge of bed. Recliner moved to edge of bed. Patient yelling at staff to get away from her do not touch her at all. Patient able to get into chair and chair moved back to the side of the bed. Tearful and sayng mean stuff to staff entire time staff in the room. Refused tylenol and told RN to get her other pain med.
[2024-08-08] MEDS: fentaNYL 100 MCG/2 ML Ampul 25 MCG IV (06:32)
[2024-08-08] MEDS: Budesonide Respules 0.5 MG/2 ML AMPUL.NEB. INHALATION ×2 (07:00→20:21)
[2024-08-08 07:02] LABS: ALB/GLOB Ratio 1.1 RATIO (0.9-2.4); AST(SGOT) 20 U/L (15-37); Alanine Aminotransfer ALT/SGPT 20 U/L (13-56); Albumin, Serum 3.5 g/dL (3.2-5.0); Alkaline Phosphatase 110 U/L (45-117); Anion Gap 4 (5-15); BUN 15 mg/dL (7-18); BUN/Creat Ratio 24.3 RATIO (10-20); Calcium,Total 8.8 mg/dL (8.5-10.1); Chloride 107 mmol/L (98-107); Creatinine, Serum 0.62 mg/dL (0.55-1.02); EST Glomerular Filtration Rate 101 mL/min (>60); Est Glom Filt Rate - Afr Amer 122 mL/min (>60); Estimated Creatinine Clearance 76.27 ml/min; Globulin 3.1 g/dL (2.2-4.2); Glucose 125 mg/dL (74-106); Magnesium 2.2 mg/dL (1.6-2.6); Phosphorus 3.1 mg/dL (2.5-4.9); Potassium 3.2 mmol/L (3.5-5.1); Protein, Total 6.6 g/dL (6.4-8.2); Sodium Level 138 mmol/L (136-145)
--- NOTE | 2024-08-08 07:03 | PCM.PN.HOSP ---
Subjective Subjective Patient since admission with significant ongoing complaints of pain to the left upper extremity, currently rating it 10 out of 10 in severity and complaining also of muscle strains and spasms. She is specifically requesting muscle relaxants and broadening of her pain regimen. Discussed options and noted that we could certainly broaden her pain regimen but preference would be to try tizanidine low-dose to which she is amenable. Discussed plan of care with evaluation for orthopedic surgery today but suspicion that likely this was completely nonoperative and plan would be to continue nonweightbearing status as well as sling with ongoing therapies. Patient denies fevers, chills, nausea, emesis, abdominal pain, chest pain or dyspnea. Objective Data Objective Data Vital Signs: Vital Signs Temp Pulse Resp BP Pulse Ox O2 Del Method 98.0 F 80 18 140/65 H 100 Room Air 08/08/24 02:30 08/08/24 02:30 08/08/24 02:30 08/08/24 02:30 08/08/24 02:30 08/08/24 02:30 Oxygen Delivery Method Room Air Weight: 231 lb 14.821 oz Body Mass Index (BMI) 38.6 Intake & Output: Intake and Output for Last 24 Hours 08/06/24 08/07/24 08/08/24 23:59 23:59 23:59 Intake Total 50 / 50 Balance 50 / 50 Lab / Micro Data 08/08/24 03:56 08/08/24 03:56 Labs: Laboratory Results - last 24 hr 08/07/24 20:14: WBC 14.2 H, RBC 3.59 L, Hgb 11.2 L, Hct 34.7 L, MCV 96.7, MCH 31.2, MCHC 32.3, RDW Std Deviation 45.5 H, RDW Coeff of Rosamaria 12.7, Plt Count 333, MPV 9.0, Immature Gran % (Auto) 0.600, Neut % (Auto) 81.4 H, Lymph % (Auto) 12.3 L, [place] % (Auto) 5.3, Eos % (Auto) 0.1, Baso % (Auto) 0.3, Absolute Neuts (auto) 11.6 H, Absolute Lymphs (auto) 1.75, Nucleated RBC % 0, Sodium 138, Potassium 3.1 L, Chloride 108 H, Carbon Dioxide 22.0, Anion Gap 8, BUN 16, Creatinine 0.68, Estim Creat Clear Calc 81.99, Est GFR (MDRD) Af Amer 110, Est GFR (MDRD) Non-Af 91, BUN/Creatinine Ratio 23.7 H, Glucose 138 H, Calcium 8.6 08/07/24 20:38: Lactic Acid 0.9 08/07/24 22:03: Urine Color Yellow, Urine Clarity Cloudy, Urine pH 7.0, Ur Specific [place] 1.010, Urine Protein Negative, Urine Glucose (UA) Normal, Urine Ketones 5 H, Urine Occult Blood Negative, Urine Nitrite Negative, Urine Bilirubin Negative, Urine Urobilinogen Normal, Ur Leukocyte Esterase Negative, Urine RBC 0-5 SEEN, Urine WBC 0 SEEN, Ur Squamous Epith Cells 0-5 SEEN, Amorphous Sediment 1+, Urine Bacteria 1+, Urine Mucus 0 SEEN 08/08/24 03:56: WBC 10.3, RBC 3.57 L, Hgb 11.1 L, Hct 34.6 L, MCV 96.9, MCH 31.1, MCHC 32.1, RDW Std Deviation 45.4 H, RDW Coeff of Rosamaria 12.7, Plt Count 327, MPV 9.2, Immature Gran % (Auto) 0.400, Neut % (Auto) 72.0 H, Lymph % (Auto) 19.5, [place] % (Auto) 7.0, Eos % (Auto) 0.7, Baso % (Auto) 0.4, Absolute Neuts (auto) 7.4, Absolute Lymphs (auto) 2.00, Nucleated RBC % 0, Sodium 138, Potassium 3.2 L, Chloride 107, Carbon Dioxide 27.0, Anion Gap 4 L, BUN 15, Creatinine 0.62, Estim Creat Clear Calc 76.27, Est GFR (MDRD) Af Amer 122, Est GFR (MDRD) Non-Af 101, BUN/Creatinine Ratio 24.3 H, Glucose 125 H, Calcium 8.8, Phosphorus 3.1, Magnesium 2.2, Total Bilirubin 0.50, AST 20, ALT 20, Alkaline Phosphatase 110, Total Protein 6.6, Albumin 3.5, Globulin 3.1, Albumin/Globulin Ratio 1.1, TSH 1.390 Radiography Diagnostic Testing: Radiology Impression Shoulder X-Ray 08/07/24 17:13 IMPRESSION: Mildly impacted left humeral neck fracture. Degenerative changes at the shoulder. Electronically Signed: Nikhil Snyder MD at 19:35 EST , Humerus X-Ray 08/07/24 17:50 IMPRESSION: Left humeral neck fracture. Electronically Signed: Nikhil Snyder MD at 19:34 EST , Physical Exam Narrative Physical Examination: General: Awake, alert, oriented x 3 and cooperative, laying in the MedSurg bed, notes ongoing severe pain to the left upper extremity with muscle strain/spasm concurrently, tentative 10. Skin: Normal color, normal turgor, no icterus, no cyanosis except very staged ecchymoses, abrasion especially new appearing to left upper extremity, left lower extremity wrapped, no drainage. HEENT: AT/NC, EOMI, PERRLA, MMM. Lungs: Mildly diminished, greater bases, proper effort, no rales, ronchi or wheezing. Heart: Regular rate and rhythm; no gallop, rub audible. Abdomen: Soft, obese, NTTP, ND, normal BS. Extremities: No cyanosis, no clubbing, left lower extremity wrapped as noted, left upper extremity with significant ecchymoses, expected swelling, able to move fingers, warm to touch, sling in place. Neurological: Patient awake, alert, oriented as noted, cognitive function intact; pupils equally reactive to light and accommodation, cranial nerves grossly normal, moving extremities except limited left side given recent left lower extremity as well as left upper extremity injuries, strength moderately to severely globally decreased Psychiatric: Affect appears uncomfortable, no acute evidence of depressive or anxiety feelings. Assessment & Plan Assessment/Plan (1) Fall: QUALIFIERS: Encounter type: initial encounter Qualified Code(s): W19.XXXA - Unspecified fall, initial encounter PLAN: Plan The patient is a 73 y/o F w/ PMHx: Obesity, Nonalcoholic fatty liver disease, Sjogren's disease, Rheumatoid arthritis, MARCELLA on CPAP, Asthma, Anxiety and Depression, Diabetes mellitus type II, Chronic adrenal insufficiency, HTN, HLD, MGUS, Hypothyroidism who presents to the [facility] ED on 08/07/24 with unfortunate mechanical fall, falling forward onto her left elbow jamming her left elbow with severe onset of left upper extremity pain prompting EMS call and transition to the ED for evaluation. #1. Mechanical fall with acutely mildly impacted left humeral neck fracture with degenerative changes at the shoulder with acute on chronic intractable pain complicated by recent left foot podiatric surgery: Admitted to medical surgical floor, maintain on fall precautions, continue left upper extremity sling with nonweightbearing status, orthopedic surgery consulted but at this point would expect nonoperative management, following with podiatry Dr. Coleman with ongoing dressings to the left lower extremity and boot with activity, as needed pain regimen, antiemetic regimen, adding low-dose tizanidine cautiously per patient strong request. PT/OT/case management consultation for discharge planning, may need skilled discharge. Encourage continued follow-up with podiatry as previously arranged. #2. Hypokalemia: Admission K+ 3.1, supplementation given, 08/08/2020 4 repeat level 3.2, will give additional supplementation and repeat level in AM. Magnesium 2.2. #3. Chronic asthma with allergic rhinitis: Will temporally hold home inhalers in the interim placed on ATC budesonide therapy, PRN albuterol, continue fluticasone home regimen. #3. Hypertension: Continue home regimen including amiloride, hydrochlorothiazide we will progress as needed, PRN hydralazine. #4. Hyperlipidemia: Not on regimen, defer to outpatient #5. Chronic adrenal insufficiency: Per current list does not appear to be on any other regimen aside low-dose prednisone, will continue but attempting to clarify. #6. Rheumatoid arthritis: Suspect no operative intervention, if this is the case would continue hydroxychloroquine, temporally hold methotrexate, continue supplemental folic acid. Currently patient is on low-dose prednisone 5 mg daily which will be continued. Encourage continued outpatient follow-up with rheumatology as previously arranged. #7. Chart reported Pre-Diabetes mellitus type II: Not on regimen, will maintain on ADA diet, he will A1c requested, accu checks w/ ISS. #8. Hypothyroidism: We will continue patient home thyroid regimen, TSH 1.390. #9. Anxiety and depression: Continue patient on venlafaxine home regimen. #10. Obesity: Weight loss and lifestyle changes encouraged. #11. GERD: Continue patient on PPI. #12. MARCELLA: CPAP nightly. #13. DVT prophylaxis: Heparin. Charges/Coding Visit Charges Inpatient E&M: 06199 Subs Hosp L2
[2024-08-08] MEDS: tiZANidine HCl 2 MG Tablet PO ×2 (08:48→22:29)
[2024-08-08] MEDS: Magnesium Chloride 64 MG Delay Rel.Tablet 128 MG PO (08:55)
[2024-08-08] MEDS: Hydroxychloroquine 200 MG Tablet PO ×2 (08:55→22:21)
[2024-08-08] MEDS: Ursodiol 250 MG Tablet PO ×2 (08:55→22:19)
[2024-08-08] MEDS: Potassium Chloride Oral Tablet 10 MEQ PO ×2 (08:56→22:20)
[2024-08-08] MEDS: Vitamin E 400 UNITS Capsule PO ×2 (08:56→22:20)
[2024-08-08] MEDS: Calcium Carb/Vitamin D 1 TABLET Tablet PO (08:56)
[2024-08-08] MEDS: Folic Acid 1 MG Tablet PO (08:56)
[2024-08-08] MEDS: sulfaSALAzine 500 MG Tablet PO ×2 (08:58→22:21)
[2024-08-08] MEDS: Pantoprazole Sodium 40 MG Tablet PO (08:59)
[2024-08-08] MEDS: predniSONE 5 MG Tablet PO (09:00)
[2024-08-08] MEDS: 0.9% Saline Lock 10 ML Syringe IV ×5 (09:08→23:22)
[2024-08-08] MEDS: AMILORIDE HCL 5 MG TABLET 2.5 MG PO (12:56)
[2024-08-08] MEDS: hydroCHLOROthiazide 25 MG Tablet PO (12:56)
[2024-08-08] MEDS: Heparin Injection (Vial) 5,000 UNIT/ML VIAL 5000 UNIT SC ×2 (12:58→22:18)
[2024-08-08 16:03] LABS: Hemoglobin A1c 5.2 % (3.8-5.6)
[2024-08-08 16:29] LABS: Bedside Glucose 142 mg/dL (74-106)
[2024-08-08] MEDS: oxyCODONE 5 MG Tablet PO (19:04)
[2024-08-08] MEDS: Acetaminophen 325 MG Tablet 650 MG PO (19:04)
[2024-08-08] MEDS: Venlafaxine HCl 25 MG Tablet 37.5 MG PO (22:22)
[2024-08-08 23:04] LABS: Bedside Glucose 115 mg/dL (74-106)
[2024-08-09] MEDS: HYDROmorphone 0.5 MG/0.5 ML SYRINGE IV ×4 (05:24→22:33)
[2024-08-09] MEDS: 0.9% Saline Lock 10 ML Syringe IV ×3 (05:24→22:33)
[2024-08-09] MEDS: Thyroid 15 MG Tablet 30 MG PO (05:24)
[2024-08-09 05:32] VITALS: BP 134/68; PULSE 80; RESP 18; TEMP 36.9; O2SAT 100
[2024-08-09 05:40] LABS: Absolute Lymphocyte Count 2.88 X10^3/uL (0.83-4.51); Absolute Neutrophil Count 4.3 X10^3/uL (2.0-7.7); Basophil# 0.05 X10^3/uL; Basophil% 0.6 % (0-1); Eosinophil# 0.16 X10^3/uL; Hemoglobin 11.8 g/dL (12.0-15.0); Lymphocyte # 2.88 X10^3/ul (0.83-4.51); Lymphocyte % 35.5 % (19-41); Mean Corp Hgb Conc 31.1 g/dL (32-36); Mean Corpuscular Volume 99.7 fL (81-99); Monocyte# 0.72 X10^3/uL; Monocyte% 8.9 % (0-10); NRBC Flagged by Analyzer 0 % (0-5); Neutrophil # 4.26 X10^3/uL (2.7-7.7); Neutrophil % 52.5 % (47-70); Platelet Count 299 K/mm3 (150-450); RBC Distribution Width CV 12.8 % (11.6-14.6); RBC Distribution Width SD 47.1 fl (35.1-43.9); Red Blood Count 3.81 M/mm3 (4.2-5.4); White Blood Count 8.1 K/mm3 (4.4-11.0)
[2024-08-09 06:00] VITALS: BMI 38.6
[2024-08-09 06:07] LABS: AST(SGOT) 19 U/L (15-37); Alanine Aminotransfer ALT/SGPT 21 U/L (13-56); Albumin, Serum 3.5 g/dL (3.2-5.0); Alkaline Phosphatase 108 U/L (45-117); Anion Gap 3 (5-15); BUN 14 mg/dL (7-18); BUN/Creat Ratio 21.1 RATIO (10-20); Chloride 107 mmol/L (98-107); Creatinine, Serum 0.66 mg/dL (0.55-1.02); EST Glomerular Filtration Rate 93 mL/min (>60); Est Glom Filt Rate - Afr Amer 113 mL/min (>60); Estimated Creatinine Clearance 76.27 ml/min; Globulin 3.4 g/dL (2.2-4.2); Glucose 118 mg/dL (74-106); Potassium 3.8 mmol/L (3.5-5.1); Protein, Total 6.9 g/dL (6.4-8.2); Sodium Level 137 mmol/L (136-145)
[2024-08-09] MEDS: Budesonide Respules 0.5 MG/2 ML AMPUL.NEB. INHALATION (07:04)
[2024-08-09] MEDS: Ipratropium/Albuterol Sulfate 3 ML AMPUL.NEB INHALATION (07:04)
[2024-08-09 07:05] VITALS: PULSE 89; RESP 18; O2SAT 94
--- NOTE | 2024-08-09 07:42 | CONS.ORTHO ---
HPI Consult Data Date of Consult: 08/09/24 HPI Narrative Reason for Consultation: Left proximal humerus fracture HPI Narrative: MITCHLEL MENON, is a 73 F who presented to [facility] emergency department after a fall on her left side on 08/07/2024. She states she has been having spasms in her legs and felt her whole body go into spasm causing her to fall on her left side. She noted the pain in her left side. She was brought by squad to the emergency department. She denies prior issues with her left shoulder. Patient is in pain management for arthritis with Dr. Mancilla. She had a forefoot fusion on her left foot June 11, [address] Coleman. She is weightbearing in a boot. She was admitted under the service of the hospitalist due to intractable pain and likely placement. At time my examination, patient reports 10 out of 10 pain in her left shoulder. She reports difficulty getting comfortable. Denies any new numbness or tingling. Reports neck pain which is chronic, she states she has known arthritis in her neck. She feels the sling is exacerbating her neck pain. Patient lives at home alone. [facility] Medical History Alcohol use History of steroid therapy Fatty liver History of IBS History of edema Abrasion, left knee, initial encounter Contusion of left knee Contusion of right middle finger Strain of right middle finger Chest wall contusion Sternum pain Health care maintenance Flu vaccine need Dermatitis Muscular abdominal pain in right flank Sjogren's disease Breast cancer screening Malaise and fatigue Anemia Fatty liver disease, nonalcoholic Wears glasses Thyroid disease Rheumatoid arthritis Injury of head and neck Difficulty swallowing Gastric reflux Non-smoker Asthma CPAP (continuous positive airway pressure) dependence History of echocardiogram History of stress test Cardiology follow-up encounter History of colon polyps Obesity Abnormal laboratory test Constipation Unsteady gait Borderline type 2 diabetes mellitus Macromastia Screening for diabetes mellitus BMI greater than 40 Anxiety and depression Radiculopathy Hypokalemia COVID-19 virus detected (05/09/20) Chronic neck and back pain Difficulty balancing when standing Shoulder pain Adrenal insufficiency SOB (shortness of breath) Obesity Essential (primary) hypertension Airway polyps Adenomatous polyps FH: colon cancer in first degree relative <60 years old Sinusitis Otitis media Limb weakness Fatigue Acute bronchitis Hypopituitarism Dyspnea Osteopenia Osteoarthritis Basal cell carcinoma Vitamin D deficiency Arthritis Hypersomnia Cellulitis of right lower leg MGUS (monoclonal gammopathy of unknown significance) Hypothyroidism Home Medications ?Medication ?Instructions ?Recorded ?Last Taken ?Type folic acid 0.8 mg capsule 0.8 mg PO BID supplement 07/14/18 04/14/24 History hydroxychloroquine 200 mg tablet 200 mg PO BID ra 09/01/18 06/11/24 History (Plaquenil) methotrexate sodium 25 mg/mL 25 mg subcut QWEEK rheumatoid 09/25/20 08/01/24 History injection solution arthritis fluticasone propionate 110 1 puff inhalation BID PRN ALLERGIES 06/12/21 10/24/21 09:00 History mcg/actuation HFA aerosol inhaler (Flovent HFA) magnesium oxide 500 mg capsule 600 mg PO DAILY Supplement 09/11/21 04/13/24 History prednisone 5 mg tablet 5 mg PO DAILY #14 tabs 02/01/22 06/11/24 Rx Handicap Placard #1 ea 11/22/22 Unknown Rx ipratropium 0.5 mg-albuterol 3 mg 3 ml inhalation Q4H PRN PRN SOB 05/20/23 Unknown Rx (2.5 mg base)/3 mL nebulization &/OR WHEEZING #180 mL soln potassium chloride 10 mEq 10 meq PO BID 07/22/23 04/14/24 History capsule,extended release ursodiol 300 mg capsule 300 mg PO BID #180 caps 12/17/23 04/14/24 Rx sulfasalazine 500 mg 1 g (2 x 500 mg) PO BID 90 days 01/23/24 04/14/24 Rx tablet,delayed release #360 tabs venlafaxine 37.5 mg tablet 37.5 mg PO QHS 04/13/24 04/14/24 History pantoprazole 40 mg tablet,delayed 40 mg PO DAILY acid 05/17/24 06/11/24 History release thyroid (pork) 15 mg tablet 30 mg PO MOTUWETHFR thyroid 05/17/24 Unknown History (Bayard Thyroid) thyroid (pork) 60 mg tablet 60 mg PO SUSA 06/08/24 Unknown History (Bayard Thyroid) vitamin E (dl, acetate) 180 mg 180 mg PO BID 06/08/24 Unknown History (400 unit) capsule calcium 500 mg (as 1 tab PO DAILY 90 days #90 tabs 06/11/24 Unknown Rx carbonate)-vitamin D3 15 mcg (600 unit) tablet (Os-William 500 + D3) amiloride 5 mg-hydrochlorothiazide 0.5 tab PO DAILY 07/21/24 Unknown History 50 mg tablet oxycodone-acetaminophen 5 mg-325 1 tab PO Q6H PRN pain 07/21/24 Unknown History mg tablet (Endocet) Allergy/AdvReac Type Severity Reaction Status Date / Time phenytoin sodium (From Allergy Mild Rash Verified 08/07/24 16:30 Dilantin) phenytoin sodium extended Allergy Mild Rash Verified 08/07/24 16:30 (From Dilantin) ketorolac tromethamine (From Allergy Anaphylaxis Verified 08/07/24 16:30 Toradol) morphine AdvReac Severe Other Verified 08/07/24 16:30 Family History Father Cancer father passed of lung CA at 55 Mother Dementia Osteoarthritis COPD (chronic obstructive pulmonary disease) Brother Myocardial infarction, Onset Age: 49 Aunt Multiple sclerosis Sister Colon cancer Breast cancer Aunt Celiac disease Surgical History Status post left foot surgery History of cardiac catheterization Hx of colonoscopy Hx of oral surgery History of tonsillectomy and adenoidectomy S/P knee surgery H/O dilation and curettage History of cataract surgery History of orthopedic surgery History of carpal tunnel release S/P bunionectomy S/P excision of Molina's neuroma History of carpal tunnel surgery History of cholecystectomy History of hysterectomy History of 2 sections Status post total right knee replacement Social History Smoking Status: Never smoker alcohol intake: current alcohol intake frequency: a few times a month Alcohol type: wine substance use type: does not use what type of physical activity do you participate in: walking, bicycling and swimming frequency: 3-4 times per week 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 Vital Signs Vital Signs Vital Signs: 08/08/24 08:34 08/08/24 08:50 08/08/24 12:46 Temperature 98.4 F 97.9 F Temperature Source Oral Oral Pulse Rate 85 89 Respiratory Rate 18 18 Respiratory Effort Normal Non-Labored Respiratory Depth Normal Respiratory Pattern Normal Blood Pressure 126/59 H 139/57 H Blood Pressure Mean 81 84 Blood Pressure Source Monitor Monitor Blood Pressure Position Semi-Fowlers Semi-Fowlers Blood Pressure Location Right Arm Right Arm Pulse Ox 97 99 Oxygen Delivery Method Room Air Room Air Room Air Oxygen Flow Rate (L/min) 97 08/08/24 14:00 08/08/24 16:03 08/08/24 20:21 Temperature 98.3 F Temperature Source Oral Pulse Rate 88 85 Respiratory Rate 16 20 H Respiratory Effort Normal Non-Labored Respiratory Depth Normal Respiratory Pattern Normal Normal Blood Pressure 126/62 H Blood Pressure Mean 83 Blood Pressure Source Monitor Blood Pressure Position Semi-Fowlers Blood Pressure Location Right Arm Pulse Ox 100 Oxygen Delivery Method Nasal Cannula Nasal Cannula Oxygen Flow Rate (L/min) 2 2 08/08/24 23:00 08/08/24 23:00 08/09/24 05:32 Temperature 99.4 F H 98.5 F Temperature Source Oral Oral Pulse Rate 95 80 Respiratory Rate 18 18 Respiratory Effort Normal Non-Labored Respiratory Depth Normal Respiratory Pattern Normal Blood Pressure 149/78 H 134/68 H Blood Pressure Mean 101 90 Blood Pressure Source Monitor Monitor Blood Pressure Position Semi-Fowlers Semi-Fowlers Blood Pressure Location Right Arm Right Arm Pulse Ox 97 100 Oxygen Delivery Method Room Air Room Air Nasal Cannula Oxygen Flow Rate (L/min) 08/09/24 05:33 08/09/24 07:05 08/09/24 07:05 Temperature Temperature Source Pulse Rate 89 Respiratory Rate 18 Respiratory Effort Normal Non-Labored Respiratory Depth Normal Respiratory Pattern Normal Normal Blood Pressure Blood Pressure Mean Blood Pressure Source Blood Pressure Position Blood Pressure Location Pulse Ox 94 Oxygen Delivery Method Nasal Cannula Nasal Cannula Oxygen Flow Rate (L/min) 1 Weight Weight: 231 lb 11.293 oz Body Mass Index (BMI) 38.6 Physical Exam Narrative General -A&Ox3, NAD, appears stated age. Vital signs stable, afebrile. Respiratory -normal work of breathing, no intercostal retractions. CV -pulses regular, brisk capillary refill ?4 limbs. Abdomen-soft, nontender, nondistended. No guarding, rigidity, rebound tenderness. Musculoskeletal/neurologic -full range of motion nontender throughout bilateral lower extremities, right upper extremity with full sensation and strength in all dermatomes and myotomes. No midline cervical tenderness. Left upper extremity: Minimal swelling noted about the left shoulder. No ecchymosis noted. Tenderness to palpation proximal humerus. Cartilage in the left hand are intact. Radial pulse 2+. Sling in place. Brisk capillary fill in the fingertips. No rashes or lesions. Range of motion testing deferred. Lab / Micro Data 08/09/24 05:16 08/09/24 05:16 Labs: Laboratory Results - last 24 hr 08/08/24 03:56: Hemoglobin A1c 5.2 08/08/24 16:10: POC Glucose 142 H 08/08/24 22:16: POC Glucose 115 H 08/09/24 05:16: WBC 8.1, RBC 3.81 L, Hgb 11.8 L, Hct 38.0, MCV 99.7 H, MCH 31.0, MCHC 31.1 L, RDW Std Deviation 47.1 H, RDW Coeff of Rosamaria 12.8, Plt Count 299, MPV 9.0, Immature Gran % (Auto) 0.500, Neut % (Auto) 52.5, Lymph % (Auto) 35.5, [place] % (Auto) 8.9, Eos % (Auto) 2.0, Baso % (Auto) 0.6, Absolute Neuts (auto) 4.3, Absolute Lymphs (auto) 2.88, Nucleated RBC % 0, Sodium 137, Potassium 3.8, Chloride 107, Carbon Dioxide 26.0, Anion Gap 3 L, BUN 14, Creatinine 0.66, Estim Creat Clear Calc 76.27, Est GFR (MDRD) Af Amer 113, Est GFR (MDRD) Non-Af 93, BUN/Creatinine Ratio 21.1 H, Glucose 118 H, Calcium 9.0, Total Bilirubin 0.40, AST 19, ALT 21, Alkaline Phosphatase 108, Total Protein 6.9, Albumin 3.5, Globulin 3.4, Albumin/Globulin Ratio 1.0 Assessment & Plan Assessment/Plan (1) Closed left humeral fracture: QUALIFIERS: Encounter type: initial encounter Humerus Location: proximal Fracture morphology: unspecified fracture morphology Qualified Code(s): S42.202A - Unspecified fracture of upper end of left humerus, initial encounter for closed fracture PLAN: Minimally displaced left proximal humerus surgical neck fracture -Closed injury, neurovascularly intact. X-rays reviewed personally. -Nonsurgical treatment recommended. Sling times at least 3 weeks. Encouraged patient to perform range of motion exercises on the left hand, wrist and elbow to prevent stiffness and help with swelling. Ordered ice to the left shoulder. Multimodal pain regimen has been ordered by the hospitalist. This appears appropriate. Recommend follow-up at [place] [facility] in approximately 1 week for repeat x-rays. PT/OT ordered. Nonweightbearing left upper extremity. Suspect patient would benefit from care home facility given her lack of help at home, limited mobility in the setting of recent left foot surgery and the left upper extremity injury. She will need a donald walker. Thank you for this consultation. I will sign off. Please not hesitate to call if any questions or concerns arise.
[2024-08-09 08:29] VITALS: BP 115/60; PULSE 75; RESP 18; TEMP 36.7; O2SAT 99
[2024-08-09] MEDS: predniSONE 5 MG Tablet PO (08:57)
[2024-08-09] MEDS: Folic Acid 1 MG Tablet PO (08:57)
[2024-08-09] MEDS: sulfaSALAzine 500 MG Tablet PO ×2 (08:58→22:35)
[2024-08-09] MEDS: AMILORIDE HCL 5 MG TABLET 2.5 MG PO (08:58)
[2024-08-09] MEDS: hydroCHLOROthiazide 25 MG Tablet PO (08:58)
[2024-08-09] MEDS: Heparin Injection (Vial) 5,000 UNIT/ML VIAL 5000 UNIT SC ×2 (08:59→22:37)
[2024-08-09] MEDS: Calcium Carb/Vitamin D 1 TABLET Tablet PO (08:59)
[2024-08-09] MEDS: Magnesium Chloride 64 MG Delay Rel.Tablet 128 MG PO ×2 (08:59→22:36)
[2024-08-09] MEDS: Potassium Chloride Oral Tablet 10 MEQ PO ×2 (08:59→22:35)
[2024-08-09] MEDS: Pantoprazole Sodium 40 MG Tablet PO (09:00)
[2024-08-09] MEDS: Hydroxychloroquine 200 MG Tablet PO ×2 (09:00→22:34)
[2024-08-09] MEDS: Lidocaine 5% Patch 2 PATCH TOPICAL (09:00)
[2024-08-09] MEDS: Vitamin E 400 UNITS Capsule PO ×2 (09:00→22:36)
[2024-08-09] MEDS: Ursodiol 250 MG Tablet PO ×2 (09:00→22:36)
--- NOTE | 2024-08-09 09:09 | PN.HOSP_ITS ---
Subjective Subjective Continues to have pain, however she is allergic to NSAIDs including Toradol. Objective Data Objective Data Vital Signs: Vital Signs Temp Pulse Resp BP Pulse Ox O2 Del Method O2 Flow Rate 98.1 F 75 18 115/60 99 Nasal Cannula 2 08/09/24 08:29 08/09/24 08:29 08/09/24 08:29 08/09/24 08:29 08/09/24 08:29 08/09/24 08:38 08/09/24 08:38 Oxygen Flow Rate (L/min) 2 Oxygen Delivery Method Nasal Cannula Weight: 231 lb 11.293 oz Body Mass Index (BMI) 38.6 Intake & Output: Intake and Output for Last 24 Hours 08/08/24 08/09/24 08/10/24 03:59 03:59 03:59 Intake Total 1850 / 1850 Output Total 650 / 650 900 / 900 Balance 1200 / 1200 -900 / -900 Lab / Micro Data 08/09/24 05:16 08/09/24 05:16 Labs: Laboratory Results - last 24 hr 08/08/24 03:56: Hemoglobin A1c 5.2 08/08/24 16:10: POC Glucose 142 H 08/08/24 22:16: POC Glucose 115 H 08/09/24 05:16: WBC 8.1, RBC 3.81 L, Hgb 11.8 L, Hct 38.0, MCV 99.7 H, MCH 31.0, MCHC 31.1 L, RDW Std Deviation 47.1 H, RDW Coeff of Rosamaria 12.8, Plt Count 299, MPV 9.0, Immature Gran % (Auto) 0.500, Neut % (Auto) 52.5, Lymph % (Auto) 35.5, [place] % (Auto) 8.9, Eos % (Auto) 2.0, Baso % (Auto) 0.6, Absolute Neuts (auto) 4.3, Absolute Lymphs (auto) 2.88, Nucleated RBC % 0, Sodium 137, Potassium 3.8, Chloride 107, Carbon Dioxide 26.0, Anion Gap 3 L, BUN 14, Creatinine 0.66, Estim Creat Clear Calc 76.27, Est GFR (MDRD) Af Amer 113, Est GFR (MDRD) Non-Af 93, B UN/Creatinine Ratio 21.1 H, Glucose 118 H, Calcium 9.0, Total Bilirubin 0.40, AST 19, ALT 21, Alkaline Phosphatase 108, Total Protein 6.9, Albumin 3.5, Globulin 3.4, Albumin/Globulin Ratio 1.0 Physical Exam Narrative General: Alert, Oriented x3, Cooperative, No apparent distress HEENT: Atraumatic, PERRLA, EOMI, Normocephalic Oral: Moist Mucosa Neck: Supple, No JVD Lungs: Clear to auscultation, Normal air movement, No rhonchi, No wheeze, No rales Cardiovascular: Regular rate, Regular Rhythm, Normal S1, Normal S2, No murmurs Abdomen: Soft, Non Tender, Non-Distended, No Hepato-splenomegaly Extremities: No edema, Capillary Refill Less than 3 Seconds Skin: No rashes, No breakdown Musculoskeletal: Left upper extremity in a sling, tender to palpation. Nonoperative humeral fracture Neurological: No focal neurological deficits, Motor Exam 5/5 strength throughout, Sensory exam intact to light touch and pain Psych/Mental Status: Normal Affect, Appropriate Assessment & Plan Assessment/Plan (1) Fall: QUALIFIERS: Encounter type: initial encounter Qualified Code(s): W19.XXXA - Unspecified fall, initial encounter PLAN: Plan #1. Mechanical fall with acutely mildly impacted left humeral neck fracture with degenerative changes at the shoulder with acute on chronic intractable pain complicated by recent left foot podiatric surgery: Admitted to medical surgical floor, maintain on fall precautions, continue left upper extremity sling with nonweightbearing status, orthopedic surgery consulted but at this point would expect nonoperative management, following with podiatry Dr. Coleman with ongoing dressings to the left lower extremity and boot with activity, as needed pain regimen, antiemetic regimen, adding low-dose tizanidine cautiously per patient strong request. PT/OT/case management consultation for discharge planning, may need skilled discharge. Encourage continued follow-up with podiatry as previously arranged. 08/09/2024: Awaiting SNF placement, she cannot take NSAIDs due to anaphylaxis to Toradol. Continue with multimodal pain relief #2. Hypokalemia: Admission K+ 3.1, supplementation given, 08/08/2020 4 repeat level 3.2, will give additional supplementation and repeat level in AM. Magnesium 2.2. #3. Chronic asthma with allergic rhinitis: Will temporally hold home inhalers in the interim placed on ATC budesonide therapy, PRN albuterol, continue fluticasone home regimen. #3. Hypertension: Continue home regimen including amiloride, hydrochlorothiazide we will progress as needed, PRN hydralazine. #4. Hyperlipidemia: Not on regimen, defer to outpatient #5. Chronic adrenal insufficiency: Per current list does not appear to be on any other regimen aside low-dose prednisone, will continue but attempting to clarify. #6. Rheumatoid arthritis: Suspect no operative intervention, if this is the case would continue hydroxychloroquine, temporally hold methotrexate, continue supplemental folic acid. Currently patient is on low-dose prednisone 5 mg daily which will be continued. Encourage continued outpatient follow-up with rheumatology as previously arranged. #7. Chart reported Pre-Diabetes mellitus type II: Not on regimen, will maintain on ADA diet, he will A1c requested, accu checks w/ ISS. #8. Hypothyroidism: We will continue patient home thyroid regimen, TSH 1.390. #9. Anxiety and depression: Continue patient on venlafaxine home regimen. #10. Obesity: Weight loss and lifestyle changes encouraged. #11. GERD: Continue patient on PPI. #12. MARCELLA: CPAP nightly. DVT: Heparin Charges/Coding Visit Charges Inpatient E&M: 07955 Subs Hosp L2
--- NOTE | 2024-08-09 09:22 | CASEMGMT ---
Addendum entered by Honey Caputo 08/09/24 09:35: Pt declines a SNF list at this time, due to knowing FOC. ABBE Davila Original Note: Social Work- SW received notice from RNCM that pt prefers TCU as FOC for referral. SW completed referral to TCU. SW remains available to follow for d/c planning needs. ABBE Davila
--- NOTE | 2024-08-09 09:27 | CASEMGMT ---
MARIELLA FUNG Assessment: Face to Face with pt for initial transition planning/care coordination assessment. MARIELLA FUNG introduced self and role at [facility], pt voices understanding and consents to assessment. Pt is A&O x4 and answers all questions appropriately at this time. Pt lying in bed in no distress. Care providers, pharmacy, and demographics verified/updated. Admitting Dx: L humeral fx after fall Strata Score: 3 PCP:Denies currently, previous PCP dismissed pt. Pt had followed with but has not gone back. Pt plans to obtain as PCP. She denies any need for assistance with this. Specialists:Jared, pod; Rodney, rheum; Friend, GI; Gemma pulm; Laurent, pain mgmt; hiram Kaba Preferred Pharmacy: [facility] Insurance: [facility] Prescription Benefit: yes LNOK: Jose L Dejesus, son; Dalia Dejesus, dtr Living Arrangements: Pt lives alone in a single story home with 3 steps to enter. Pt reports she was back to being indep in her home. She states she used the walker outside of the home. She states she had a full body spasm which caused her fall. Pt reports she cannot go home in this condition. Transportation: Pt drives self and denies concerns with transportation. DME:w/c, knee scooter, electric w/c, walker, [facility] HHC/SNF: Pt was recently dc'd from [facility]. Denies hx of SNF stays. Pt states she would like to go to [facility] TCU. She denies need for a list. Pt is aware that for her to go to a SNF, she needs to work with therapy. Pt agreeable to this. SMT OPERATOR in room to get pt coffee. Pt states no further concerns/needs. CM to follow. Advised pt to ask CM if any further question/concerns/needs arise, voices understanding. Pt Goal: [facility] TCU Plan: SNF pending acceptance. SW updated. Tony WOLFF CM
[2024-08-09 11:39] LABS: Bedside Glucose 195 mg/dL (74-106)
[2024-08-09 14:29] VITALS: BP 130/67; PULSE 93; RESP 14; TEMP 37.1; O2SAT 95
[2024-08-09 16:44] LABS: Bedside Glucose 134 mg/dL (74-106)
[2024-08-09 20:45] VITALS: O2SAT 95
[2024-08-09] MEDS: oxyCODONE 5 MG Tablet PO (21:12)
[2024-08-09] MEDS: tiZANidine HCl 2 MG Tablet PO (21:12)
[2024-08-09 21:20] VITALS: BP 127/72; PULSE 97; RESP 18; TEMP 37.4; O2SAT 98
--- NOTE | 2024-08-09 21:21 | NURSING ---
This nurse entered room and asked patient how her day has been and how her pain has been today. Patient states that she has been getting up and using the bathroom slowly and has been painful. This nurse stated to patient per policy that I would give patient her PRN muscle relaxer along with PRN oxy first and then reevaluate and give PRN IV dilaudid pain medication. Patient immediately raised voice at this nurse and said that this nurse was yelling at her and she has already tried the other medications and they do not work and that she has an allergy to them. This nurse calmed patient down and explained that I have no problem giving her the IV pain medication but per hospital policy I have to try the PO medication that is ordered. Patient verbalized understanding and then continues to state that I should know that she will be in her room yelling and being a bitch. This nurse told patient we would work through it tonight and in the meantime I will reach out to and see if this can be changed to norco since she is able to take that at home- patient states that she still gets irritable with [place] but that it is better than OXY. Patients son was currently on the phone at this time and confirmed that patient gets very irritable while taking pain medication and avoids patient when taking these medications. Patient agreeable to take PO oxy at this time with hopes to get changed.
[2024-08-09] MEDS: Venlafaxine HCl 25 MG Tablet 37.5 MG PO (22:36)
[2024-08-10] MEDS: HYDROmorphone 0.5 MG/0.5 ML SYRINGE IV ×2 (02:47→08:11)
[2024-08-10] MEDS: 0.9% Saline Lock 10 ML Syringe IV ×2 (02:47→08:11)
[2024-08-10 03:09] VITALS: BP 128/67; PULSE 86; RESP 18; TEMP 36.9; O2SAT 96
[2024-08-10 05:42] LABS: Absolute Neutrophil Count 6.1 X10^3/uL (2.0-7.7); Basophil# 0.05 X10^3/uL; Basophil% 0.5 % (0-1); Eosinophil# 0.22 X10^3/uL; Eosinophils% 2.1 % (0-5); Hematocrit 36.8 % (37-47); Hemoglobin 11.6 g/dL (12.0-15.0); Lymphocyte % 31.5 % (19-41); Mean Corp Hgb Conc 31.5 g/dL (32-36); Mean Corpuscular Volume 98.4 fL (81-99); Mean Platelet Vol. 8.8 fl (6.2-12.0); Monocyte# 0.76 X10^3/uL; Monocyte% 7.3 % (0-10); NRBC Flagged by Analyzer 0 % (0-5); Neutrophil # 6.07 X10^3/uL (2.7-7.7); Neutrophil % 57.9 % (47-70); Platelet Count 322 K/mm3 (150-450); RBC Distribution Width CV 12.7 % (11.6-14.6); RBC Distribution Width SD 45.7 fl (35.1-43.9); Red Blood Count 3.74 M/mm3 (4.2-5.4); White Blood Count 10.5 K/mm3 (4.4-11.0)
[2024-08-10 06:00] VITALS: BMI 38.6
[2024-08-10 06:08] LABS: Anion Gap 6 (5-15); BUN 16 mg/dL (7-18); BUN/Creat Ratio 22.4 RATIO (10-20); Calcium,Total 9.1 mg/dL (8.5-10.1); Chloride 102 mmol/L (98-107); Creatinine, Serum 0.72 mg/dL (0.55-1.02); EST Glomerular Filtration Rate 85 mL/min (>60); Est Glom Filt Rate - Afr Amer 103 mL/min (>60); Estimated Creatinine Clearance 76.22 ml/min; Glucose 138 mg/dL (74-106); Potassium 3.7 mmol/L (3.5-5.1); Sodium Level 136 mmol/L (136-145)
[2024-08-10] MEDS: Thyroid 15 MG Tablet 30 MG PO (06:22)
[2024-08-10 08:18] VITALS: BP 133/66; PULSE 84; RESP 16; TEMP 36.6; O2SAT 98
[2024-08-10] MEDS: Calcium Carb/Vitamin D 1 TABLET Tablet PO (08:22)
[2024-08-10] MEDS: Folic Acid 1 MG Tablet PO ×2 (08:23→16:01)
[2024-08-10] MEDS: AMILORIDE HCL 5 MG TABLET 2.5 MG PO (08:23)
[2024-08-10] MEDS: Pantoprazole Sodium 40 MG Tablet PO (08:23)
[2024-08-10] MEDS: hydroCHLOROthiazide 25 MG Tablet PO (08:23)
[2024-08-10] MEDS: predniSONE 5 MG Tablet PO (08:26)
--- NOTE | 2024-08-10 09:28 | PN.HOSP_ITS ---
Subjective Subjective No issues overnight, pain is still difficult to manage Objective Data Objective Data Vital Signs: Vital Signs Temp Pulse Resp BP Pulse Ox O2 Del Method O2 Flow Rate 98 F 84 16 133/66 H 98 Room Air 2 08/10/24 08:18 08/10/24 08:18 08/10/24 08:18 08/10/24 08:18 08/10/24 08:18 08/10/24 08:18 08/09/24 08:38 Oxygen Flow Rate (L/min) 2 Oxygen Delivery Method Room Air Weight: 231 lb 11.293 oz Body Mass Index (BMI) 38.6 Intake & Output: Intake and Output for Last 24 Hours 08/09/24 08/10/24 08/11/24 03:59 03:59 03:59 Intake Total 1850 / 1850 200 / 200 Output Total 650 / 650 900 / 900 Balance 1200 / 1200 -900 / -900 200 / 200 Lab / Micro Data 08/10/24 05:21 08/10/24 05:21 Labs: Laboratory Results - last 24 hr 08/09/24 11:19: POC Glucose 195 H 08/09/24 16:18: POC Glucose 134 H 08/10/24 05:21: WBC 10.5, RBC 3.74 L, Hgb 11.6 L, Hct 36.8 L, MCV 98.4, MCH 31.0, MCHC 31.5 L, RDW Std Deviation 45.7 H, RDW Coeff of Rosamaria 12.7, Plt Count 322, MPV 8.8, Immature Gran % (Auto) 0.700, Neut % (Auto) 57.9, Lymph % (Auto) 31.5, [place] % (Auto) 7.3, Eos % (Auto) 2.1, Baso % (Auto) 0.5, Absolute Neuts (auto) 6.1, Absolute Lymphs (auto) 3.30, Nucleated RBC % 0, Sodium 136, Potassium 3.7, Chloride 102, Carbon Dioxide 28.0, Anion Gap 6, BUN 16, Creatinine 0.72, Estim Creat Clear Calc 76.22, Est GFR (MDRD) Af Amer 103, Est GFR (MDRD) Non-Af 85, BUN/Creatinine Ratio 22.4 H, Glucose 138 H, Calcium 9.1 Physical Exam Narrative General: Alert, Oriented x3, Cooperative, No apparent distress HEENT: Atraumatic, PERRLA, EOMI, Normocephalic Oral: Moist Mucosa Neck: Supple, No JVD Lungs: Clear to auscultation, Normal air movement, No rhonchi, No wheeze, No rales Cardiovascular: Regular rate, Regular Rhythm, Normal S1, Normal S2, No murmurs Abdomen: Soft, Non Tender, Non-Distended, No Hepato-splenomegaly Extremities: No edema, Capillary Refill Less than 3 Seconds Skin: No rashes, No breakdown Musculoskeletal: Left upper extremity in a sling, tender to palpation. Nonoperative humeral fracture Neurological: No focal neurological deficits, Motor Exam 5/5 strength throughout, Sensory exam intact to light touch and pain Psych/Mental Status: Normal Affect, Appropriate Assessment & Plan Assessment/Plan (1) Fall: QUALIFIERS: Encounter type: initial encounter Qualified Code(s): W19.XXXA - Unspecified fall, initial encounter PLAN: Plan #1. Mechanical fall with acutely mildly impacted left humeral neck fracture with degenerative changes at the shoulder with acute on chronic intractable pain complicated by recent left foot podiatric surgery: Admitted to medical surgical floor, maintain on fall precautions, continue left upper extremity sling with nonweightbearing status, orthopedic surgery consulted but at this point would expect nonoperative management, following with podiatry Dr. Coleman with ongoing dressings to the left lower extremity and boot with activity, as needed pain regimen, antiemetic regimen, adding low-dose tizanidine cautiously per patient strong request. PT/OT/case management consultation for discharge planning, may need skilled discharge. Encourage continued follow-up with podiatry as previously arranged. 08/09/2024: Awaiting SNF placement, she cannot take NSAIDs due to anaphylaxis to Toradol. Continue with multimodal pain relief 08/10/2024: Cannot take oxycodone but can tolerate [place]. Will stop her IV Dilaudid #2. Hypokalemia: Admission K+ 3.1, supplementation given, 08/08/2020 4 repeat level 3.2, will give additional supplementation and repeat level in AM. Magnesium 2.2. #3. Chronic asthma with allergic rhinitis: Will temporally hold home inhalers in the interim placed on ATC budesonide therapy, PRN albuterol, continue fluticasone home regimen. #3. Hypertension: Continue home regimen including amiloride, hydrochlorothiazide we will progress as needed, PRN hydralazine. #4. Hyperlipidemia: Not on regimen, defer to outpatient #5. Chronic adrenal insufficiency: Per current list does not appear to be on any other regimen aside low-dose prednisone, will continue but attempting to clarify. #6. Rheumatoid arthritis: Suspect no operative intervention, if this is the case would continue hydroxychloroquine, temporally hold methotrexate, continue supplemental folic acid. Currently patient is on low-dose prednisone 5 mg daily which will be continued. Encourage continued outpatient follow-up with rheumatology as previously arranged. #7. Chart reported Pre-Diabetes mellitus type II: Not on regimen, will maintain on ADA diet, he will A1c requested, accu checks w/ ISS. #8. Hypothyroidism: We will continue patient home thyroid regimen, TSH 1.390. #9. Anxiety and depression: Continue patient on venlafaxine home regimen. #10. Obesity: Weight loss and lifestyle changes encouraged. #11. GERD: Continue patient on PPI. #12. MARCELLA: CPAP nightly. DVT: Heparin Charges/Coding Visit Charges Inpatient E&M: 60502 Subs Hosp L2
--- NOTE | 2024-08-10 10:41 | CASEMGMT ---
Addendum entered by Honey Caputo 08/10/24 16:54: Pt declined by [facility]. Pt alternate option is [facility]. DCA spoke with pt and will complete referral. ABEB Davila Original Note: Social Work- SW met with pt to discuss TCU declination of referral. SW introduced self and role. SW guided pt through conversation on care options. A list of SNF providers including quality and resource use data and consistent with the patient?s preferred geographic region, medical needs, and insurance network were provided from the [facility] Guide. Pt chose [facility]. RK notified DCA of referral request. RK remains available to follow. ABBE Davila
--- NOTE | 2024-08-10 11:01 | CASEMGMT ---
Addendum entered by Yolande Knight 08/10/24 15:35: [facility] declined d/t no bed availability. Yolande Knight DC Planning Asst. Original Note: Discharge Planning Referral sent to [facility]. Yolande Knight DC Planning Asst.
[2024-08-10] MEDS: sulfaSALAzine 500 MG Tablet PO ×2 (12:21→21:36)
[2024-08-10] MEDS: Heparin Injection (Vial) 5,000 UNIT/ML VIAL 5000 UNIT SC ×2 (12:21→21:36)
[2024-08-10] MEDS: Lidocaine 5% Patch 2 PATCH TOPICAL (12:21)
[2024-08-10] MEDS: Polyethylene Glycol 3350 17 GM PACKET PO (12:22)
[2024-08-10] MEDS: Hydroxychloroquine 200 MG Tablet PO ×2 (12:22→21:35)
[2024-08-10] MEDS: Potassium Chloride Oral Tablet 10 MEQ PO ×2 (12:22→21:35)
[2024-08-10] MEDS: Ursodiol 250 MG Tablet PO ×2 (12:23→21:35)
[2024-08-10] MEDS: Vitamin E 400 UNITS Capsule PO ×2 (12:23→21:35)
[2024-08-10 13:06] LABS: Bedside Glucose 128 mg/dL (74-106)
[2024-08-10 15:18] VITALS: BP 134/67; PULSE 90; RESP 18; TEMP 36.8; O2SAT 97
[2024-08-10] MEDS: HYDROcodone Bitartrate/Apap 5/325 Tablet PO ×2 (15:44→19:55)
[2024-08-10] MEDS: tiZANidine HCl 2 MG Tablet PO (20:01)
[2024-08-10 20:50] LABS: Bedside Glucose 115 mg/dL (74-106)
[2024-08-10] MEDS: Venlafaxine HCl 25 MG Tablet 37.5 MG PO (21:34)
--- NOTE | 2024-08-10 21:36 | CPS ---
Patient set up with own PAP machine for the night and 3L bleed
[2024-08-10 21:59] VITALS: BP 123/67; PULSE 89; RESP 16; TEMP 36.9; O2SAT 100
[2024-08-10 22:02] LABS: Bedside Glucose 124 mg/dL (74-106)
[2024-08-10 23:54] VITALS: BP 131/74; PULSE 81; RESP 16; TEMP 36.4; O2SAT 97
[2024-08-11] MEDS: HYDROcodone Bitartrate/Apap 5/325 Tablet PO ×5 (00:17→21:30)
[2024-08-11 03:55] VITALS: BP 122/44; PULSE 84; RESP 16; TEMP 36.5; O2SAT 99
[2024-08-11 03:58] VITALS: BMI 38.1
[2024-08-11] MEDS: Thyroid 15 MG Tablet 30 MG PO (05:23)
[2024-08-11] MEDS: tiZANidine HCl 2 MG Tablet PO ×3 (05:25→23:30)
[2024-08-11 05:55] LABS: Absolute Lymphocyte Count 3.97 X10^3/uL (0.83-4.51); Absolute Neutrophil Count 3.9 X10^3/uL (2.0-7.7); Basophil# 0.08 X10^3/uL; Basophil% 0.9 % (0-1); Eosinophil# 0.23 X10^3/uL; Eosinophils% 2.6 % (0-5); Hematocrit 37.5 % (37-47); Hemoglobin 12.1 g/dL (12.0-15.0); Lymphocyte # 3.97 X10^3/ul (0.83-4.51); Lymphocyte % 44.5 % (19-41); Mean Corp Hgb Conc 32.3 g/dL (32-36); Mean Corpuscular Hgb 31.7 pg (27.0-32.0); Mean Corpuscular Volume 98.2 fL (81-99); Mean Platelet Vol. 8.9 fl (6.2-12.0); Monocyte# 0.71 X10^3/uL; NRBC Flagged by Analyzer 0 % (0-5); Neutrophil # 3.87 X10^3/uL (2.7-7.7); Neutrophil % 43.3 % (47-70); Platelet Count 313 K/mm3 (150-450); RBC Distribution Width CV 12.8 % (11.6-14.6); Red Blood Count 3.82 M/mm3 (4.2-5.4); White Blood Count 8.9 K/mm3 (4.4-11.0)
[2024-08-11 06:28] LABS: Bedside Glucose 112 mg/dL (74-106)
[2024-08-11 06:33] LABS: Anion Gap 7 (5-15); BUN 21 mg/dL (7-18); BUN/Creat Ratio 27.3 RATIO (10-20); Calcium,Total 9.3 mg/dL (8.5-10.1); Chloride 103 mmol/L (98-107); Creatinine, Serum 0.77 mg/dL (0.55-1.02); EST Glomerular Filtration Rate 79 mL/min (>60); Est Glom Filt Rate - Afr Amer 95 mL/min (>60); Estimated Creatinine Clearance 75.71 ml/min; Glucose 119 mg/dL (74-106); Potassium 3.4 mmol/L (3.5-5.1); Sodium Level 137 mmol/L (136-145)
[2024-08-11 06:56] VITALS: O2SAT 95
[2024-08-11 08:19] VITALS: BP 117/69; PULSE 80; RESP 16; TEMP 36.4; O2SAT 95
[2024-08-11] MEDS: Folic Acid 1 MG Tablet PO ×2 (08:34→16:49)
[2024-08-11] MEDS: predniSONE 5 MG Tablet PO (08:35)
[2024-08-11] MEDS: AMILORIDE HCL 5 MG TABLET 2.5 MG PO (08:36)
[2024-08-11] MEDS: sulfaSALAzine 500 MG Tablet PO ×2 (08:37→21:26)
[2024-08-11] MEDS: Potassium Chloride Oral Tablet 10 MEQ PO ×2 (08:38→21:26)
[2024-08-11] MEDS: Magnesium Chloride 64 MG Delay Rel.Tablet 128 MG PO (08:38)
[2024-08-11] MEDS: Calcium Carb/Vitamin D 1 TABLET Tablet PO (08:39)
[2024-08-11] MEDS: Hydroxychloroquine 200 MG Tablet PO ×2 (08:39→21:25)
[2024-08-11] MEDS: Ursodiol 250 MG Tablet PO ×2 (08:39→21:24)
[2024-08-11] MEDS: Vitamin E 400 UNITS Capsule PO ×2 (08:40→21:25)
[2024-08-11] MEDS: Pantoprazole Sodium 40 MG Tablet PO (08:40)
--- NOTE | 2024-08-11 09:20 | PN.HOSP_ITS ---
Subjective Subjective No issues overnight Objective Data Objective Data Vital Signs: Vital Signs Temp Pulse Resp BP Pulse Ox O2 Del Method O2 Flow Rate 97.6 F L 80 16 117/69 95 Room Air 2 08/11/24 08:19 08/11/24 08:19 08/11/24 08:19 08/11/24 08:19 08/11/24 08:19 08/11/24 08:19 08/09/24 08:38 Oxygen Flow Rate (L/min) 2 Oxygen Delivery Method Room Air Weight: 228 lb 14.4 oz Body Mass Index (BMI) 38.1 Intake & Output: Intake and Output for Last 24 Hours 08/10/24 08/11/24 08/12/24 03:59 03:59 03:59 Intake Total 1450 / 1450 250 / 250 Output Total 900 / 900 500 / 500 400 / 400 Balance -900 / -900 950 / 950 -150 / -150 Lab / Micro Data 08/11/24 05:35 08/11/24 05:35 Labs: Laboratory Results - last 24 hr 08/10/24 12:46: POC Glucose 128 H 08/10/24 15:53: POC Glucose 115 H 08/10/24 21:40: POC Glucose 124 H 08/11/24 05:35: WBC 8.9, RBC 3.82 L, Hgb 12.1, Hct 37.5, MCV 98.2, MCH 31.7, MCHC 32.3, RDW Std Deviation 46.0 H, RDW Coeff of Rosamaria 12.8, Plt Count 313, MPV 8.9, Immature Gran % (Auto) 0.700, Neut % (Auto) 43.3 L, Lymph % (Auto) 44.5 H, [place] % (Auto) 8.0, Eos % (Auto) 2.6, Baso % (Auto) 0.9, Absolute Neuts (auto) 3.9, Absolute Lymphs (auto) 3.97, Nucleated RBC % 0, Sodium 137, Potassium 3.4 L , Chloride 103, Carbon Dioxide 26.0, Anion Gap 7, BUN 21 H, Creatinine 0.77, Estim Creat Clear Calc 75.71, Est GFR (MDRD) Af Amer 95, Est GFR (MDRD) Non-Af 79, BUN/Creatinine Ratio 27.3 H, Glucose 119 H, Calcium 9.3 08/11/24 06:05: POC Glucose 112 H Physical Exam Narrative General: Alert, Oriented x3, Cooperative, No apparent distress HEENT: Atraumatic, PERRLA, EOMI, Normocephalic Oral: Moist Mucosa Neck: Supple, No JVD Lungs: Clear to auscultation, Normal air movement, No rhonchi, No wheeze, No rales Cardiovascular: Regular rate, Regular Rhythm, Normal S1, Normal S2, No murmurs Abdomen: Soft, Non Tender, Non-Distended, No Hepato-splenomegaly Extremities: No edema, Capillary Refill Less than 3 Seconds Skin: No rashes, No breakdown Musculoskeletal: Left upper extremity in a sling, tender to palpation. Nonoperative humeral fracture Neurological: No focal neurological deficits, Motor Exam 5/5 strength throughout, Sensory exam intact to light touch and pain Psych/Mental Status: Normal Affect, Appropriate Assessment & Plan Assessment/Plan (1) Fall: QUALIFIERS: Encounter type: initial encounter Qualified Code(s): W19.XXXA - Unspecified fall, initial encounter PLAN: Plan #1. Mechanical fall with acutely mildly impacted left humeral neck fracture with degenerative changes at the shoulder with acute on chronic intractable pain complicated by recent left foot podiatric surgery: Admitted to medical surgical floor, maintain on fall precautions, continue left upper extremity sling with nonweightbearing status, orthopedic surgery consulted but at this point would expect nonoperative management, following with podiatry Dr. Coleman with ongoing dressings to the left lower extremity and boot with activity, as needed pain regimen, antiemetic regimen, adding low-dose tizanidine cautiously per patient strong request. PT/OT/case management consultation for discharge planning, may need skilled discharge. Encourage continued follow-up with podiatry as previously arranged. 08/09/2024: Awaiting SNF placement, she cannot take NSAIDs due to anaphylaxis to Toradol. Continue with multimodal pain relief 08/10/2024: Cannot take oxycodone but can tolerate [place]. Will stop her IV Dilaudid 08/11/2024: Awaiting pre-CERT #2. Hypokalemia: Admission K+ 3.1, supplementation given, 08/08/2020 4 repeat level 3.2, will give additional supplementation and repeat level in AM. Magnesium 2.2. #3. Chronic asthma with allergic rhinitis: Will temporally hold home inhalers in the interim placed on ATC budesonide therapy, PRN albuterol, continue fluticasone home regimen. #3. Hypertension: Continue home regimen including amiloride, hydrochlorothiazide we will progress as needed, PRN hydralazine. #4. Hyperlipidemia: Not on regimen, defer to outpatient #5. Chronic adrenal insufficiency: Per current list does not appear to be on any other regimen aside low-dose prednisone, will continue but attempting to clarify. #6. Rheumatoid arthritis: Suspect no operative intervention, if this is the case would continue hydroxychloroquine, temporally hold methotrexate, continue supplemental folic acid. Currently patient is on low-dose prednisone 5 mg daily which will be continued. Encourage continued outpatient follow-up with rheumatology as previously arranged. 08/11/2024: Continue with methotrexate #7. Chart reported Pre-Diabetes mellitus type II: Not on regimen, will maintain on ADA diet, he will A1c requested, accu checks w/ ISS. #8. Hypothyroidism: We will continue patient home thyroid regimen, TSH 1.390. #9. Anxiety and depression: Continue patient on venlafaxine home regimen. #10. Obesity: Weight loss and lifestyle changes encouraged. #11. GERD: Continue patient on PPI. #12. MARCELLA: CPAP nightly. DVT: Heparin Charges/Coding Visit Charges Inpatient E&M: 37001 Subs Hosp L2
[2024-08-11] MEDS: Lidocaine 5% Patch 2 PATCH TOPICAL (10:41)
[2024-08-11] MEDS: Heparin Injection (Vial) 5,000 UNIT/ML VIAL 5000 UNIT SC ×2 (10:46→21:24)
[2024-08-11 12:03] LABS: Bedside Glucose 111 mg/dL (74-106)
[2024-08-11 15:38] VITALS: BP 128/69; PULSE 89; RESP 16; TEMP 36.6; O2SAT 97
[2024-08-11] MEDS: Ensure Plus High Protein 120 ML LIQUID PO (16:48)
[2024-08-11 17:12] LABS: Bedside Glucose 93 mg/dL (74-106)
[2024-08-11 21:22] VITALS: BP 147/71; PULSE 90; RESP 18; TEMP 36.7; O2SAT 97
[2024-08-11] MEDS: Venlafaxine HCl 25 MG Tablet 37.5 MG PO (21:24)
[2024-08-12] MEDS: HYDROcodone Bitartrate/Apap 5/325 Tablet PO ×3 (02:21→13:57)
[2024-08-12 02:52] VITALS: BP 115/67; PULSE 77; RESP 18; TEMP 36.5; O2SAT 100
[2024-08-12 05:33] VITALS: BMI 39.0
[2024-08-12] MEDS: Thyroid 15 MG Tablet 30 MG PO (06:50)
[2024-08-12 07:15] LABS: Bedside Glucose 101 mg/dL (74-106)
[2024-08-12] MEDS: Lidocaine 5% Patch 2 PATCH TOPICAL (08:23)
--- NOTE | 2024-08-12 08:29 | NS ---
08/12/24: Call from kitchen (Karis) about pt not wanting gluten free bread. RD will remove bread from diet order. RD will also change diet back to liberalized regular diet to optimize oral intakes. 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 Nell Colmenares RDN, LD
[2024-08-12] MEDS: Potassium Chloride Oral Tablet 10 MEQ PO (08:30)
[2024-08-12] MEDS: tiZANidine HCl 2 MG Tablet PO (08:30)
[2024-08-12] MEDS: Magnesium Chloride 64 MG Delay Rel.Tablet 128 MG PO (08:30)
[2024-08-12] MEDS: Folic Acid 1 MG Tablet PO (08:31)
[2024-08-12] MEDS: sulfaSALAzine 500 MG Tablet PO (08:31)
[2024-08-12] MEDS: Hydroxychloroquine 200 MG Tablet PO (08:31)
[2024-08-12] MEDS: predniSONE 5 MG Tablet PO (08:32)
[2024-08-12] MEDS: Ursodiol 250 MG Tablet PO (08:32)
[2024-08-12] MEDS: Vitamin E 400 UNITS Capsule PO (08:32)
[2024-08-12] MEDS: Calcium Carb/Vitamin D 1 TABLET Tablet PO (08:32)
[2024-08-12] MEDS: Pantoprazole Sodium 40 MG Tablet PO (08:33)
[2024-08-12] MEDS: AMILORIDE HCL 5 MG TABLET 2.5 MG PO (08:33)
[2024-08-12] MEDS: Heparin Injection (Vial) 5,000 UNIT/ML VIAL 5000 UNIT SC (08:34)
[2024-08-12] MEDS: hydroCHLOROthiazide 25 MG Tablet PO (08:35)
[2024-08-12] MEDS: Polyethylene Glycol 3350 17 GM PACKET PO (08:53)
--- NOTE | 2024-08-12 09:16 | PN.HOSP_ITS ---
Subjective Subjective Doing well, no issues overnight Objective Data Objective Data Vital Signs: Vital Signs Temp Pulse Resp BP Pulse Ox O2 Del Method O2 Flow Rate 97.7 F L 77 18 115/67 100 Room Air 2 08/12/24 02:52 08/12/24 02:52 08/12/24 02:52 08/12/24 02:52 08/12/24 02:52 08/12/24 02:52 08/09/24 08:38 Oxygen Flow Rate (L/min) 2 Oxygen Delivery Method Room Air Weight: 234 lb 9.149 oz Body Mass Index (BMI) 39.0 Intake & Output: Intake and Output for Last 24 Hours 08/11/24 08/12/24 08/13/24 03:59 03:59 03:59 Intake Total 1450 / 1450 250 / 250 Output Total 500 / 500 750 / 750 400 / 400 Balance 950 / 950 -500 / -500 -400 / -400 Lab / Micro Data 08/11/24 05:35 08/11/24 05:35 Labs: Laboratory Results - last 24 hr 08/11/24 11:43: POC Glucose 111 H 08/11/24 16:45: POC Glucose 93 08/12/24 06:49: POC Glucose 101 Physical Exam Narrative General: Alert, Oriented x3, Cooperative, No apparent distress HEENT: Atraumatic, PERRLA, EOMI, Normocephalic Oral: Moist Mucosa Neck: Supple, No JVD Lungs: Clear to auscultation, Normal air movement, No rhonchi, No wheeze, No rales Cardiovascular: Regular rate, Regular Rhythm, Normal S1, Normal S2, No murmurs Abdomen: Soft, Non Tender, Non-Distended, No Hepato-splenomegaly Extremities: No edema, Capillary Refill Less than 3 Seconds Skin: No rashes, No breakdown Musculoskeletal: Left upper extremity in a sling, tender to palpation. Nonoperative humeral fracture Neurological: No focal neurological deficits, Motor Exam 5/5 strength throughout, Sensory exam intact to light touch and pain Psych/Mental Status: Normal Affect, Appropriate Assessment & Plan Assessment/Plan (1) Fall: QUALIFIERS: Encounter type: initial encounter Qualified Code(s): W19.XXXA - Unspecified fall, initial encounter PLAN: Plan #1. Mechanical fall with acutely mildly impacted left humeral neck fracture with degenerative changes at the shoulder with acute on chronic intractable pain complicated by recent left foot podiatric surgery: Admitted to medical surgical floor, maintain on fall precautions, continue left upper extremity sling with nonweightbearing status, orthopedic surgery consulted but at this point would expect nonoperative management, following with podiatry Dr. Coleman with ongoing dressings to the left lower extremity and boot with activity, as needed pain regimen, antiemetic regimen, adding low-dose tizanidine cautiously per patient strong request. PT/OT/case management consultation for discharge planning, may need skilled discharge. Encourage continued follow-up with podiatry as previously arranged. 08/09/2024: Awaiting SNF placement, she cannot take NSAIDs due to anaphylaxis to Toradol. Continue with multimodal pain relief 08/10/2024: Cannot take oxycodone but can tolerate [place]. Will stop her IV Dilaudid 08/11/2024: Awaiting pre-CERT 08/12/2024: Awaiting pre-CERT #2. Hypokalemia: Admission K+ 3.1, supplementation given, 08/08/2020 4 repeat level 3.2, will give additional supplementation and repeat level in AM. Magnesium 2.2. #3. Chronic asthma with allergic rhinitis: Will temporally hold home inhalers in the interim placed on ATC budesonide therapy, PRN albuterol, continue fluticasone home regimen. #3. Hypertension: Continue home regimen including amiloride, hydrochlorothiazide we will progress as needed, PRN hydralazine. #4. Hyperlipidemia: Not on regimen, defer to outpatient #5. Chronic adrenal insufficiency: Per current list does not appear to be on any other regimen aside low-dose prednisone, will continue but attempting to clarify. #6. Rheumatoid arthritis: Suspect no operative intervention, if this is the case would continue hydroxychloroquine, temporally hold methotrexate, continue supplemental folic acid. Currently patient is on low-dose prednisone 5 mg daily which will be continued. Encourage continued outpatient follow-up with rheumatology as previously arranged. 08/11/2024: Continue with methotrexate #7. Chart reported Pre-Diabetes mellitus type II: Not on regimen, will maintain on ADA diet, he will A1c requested, accu checks w/ ISS. #8. Hypothyroidism: We will continue patient home thyroid regimen, TSH 1.390. #9. Anxiety and depression: Continue patient on venlafaxine home regimen. #10. Obesity: Weight loss and lifestyle changes encouraged. #11. GERD: Continue patient on PPI. #12. MARCELLA: CPAP nightly. DVT: Heparin Charges/Coding Visit Charges Inpatient E&M: 48008 Subs Hosp L1
--- NOTE | 2024-08-12 09:29 | CASEMGMT ---
Addendum entered by Yolande Knight 08/12/24 10:26: SL is foc. Msg left for [facility] to cancel referral and SL updated that pt will admit today. Yolande Knight DC Planning Asst. Addendum entered by Yolande Knight 08/12/24 09:57: [facility] accepted. CORTES Mcknight @ [facility] states that she will review referral shortly. Yolande Knight DC Planning Asst. Original Note: Discharge Planning Referral sent via [facility] to [facility] and [facility]. Yolande Knight DC Planning Asst.
[2024-08-12 09:48] VITALS: BP 137/78; PULSE 87; RESP 16; TEMP 36.3; O2SAT 98
--- NOTE | 2024-08-12 10:20 | CASEMGMT ---
Social Work- SW met with pt to check-in on pt well-being and update on referral acceptance at [facility]. Pt was pleasant and smiling, joking that she is doing well if SW has good news on referrals. SW updated that [facility] accepted and [facility] is reviewing. Pt reports that she spoke with [facility] and knows they accepted, but prefers [facility]. Pt would like referral to [facility] cancelled and is requesting d/c plans be completed for [facility]. DCA notified. Physician notified. SW remains available to follow for d/c plan needs. Plan: [facility]; skilled level of care ABBE Davila
--- NOTE | 2024-08-12 11:29 | PCM.TXEXTCAR ---
Diet Diet Order/Speech Therapy: 08/12/24 08:34 Diet: Regular - General Food consistency:: Easy to Chew Liquid Consistency:: Regular/Thin Type of Dietary Supplement:: angela EPHP 8 oz tid Diet Comments: egg salad, banana w/ 2 Peanut butter all meals Routine Orders/Code Status Routine Lab Work: CBC and BMP Code Status: Full Code DC O2, CPAP, BIPAP needs Home O2 Discharge instructions: No Wound(s) left foot: Wound Type: Surgical Incision Therapies Weight Bearing: Non weight bearing Extremity Affected:: Left Upper Physical Therapy: Eval and Treat Occupational Therapy: Eval and Treat Problem/Diagnosis (1) Fall: Status: Acute Code(s): W19.XXXA - Unspecified fall, initial encounter Plan #1. Mechanical fall with acutely mildly impacted left humeral neck fracture with degenerative changes at the shoulder with acute on chronic intractable pain complicated by recent left foot podiatric surgery: Admitted to medical surgical floor, maintain on fall precautions, continue left upper extremity sling with nonweightbearing status, orthopedic surgery consulted but at this point would expect nonoperative management, following with podiatry Dr. Coleman with ongoing dressings to the left lower extremity and boot with activity, as needed pain regimen, antiemetic regimen, adding low-dose tizanidine cautiously per patient strong request. PT/OT/case management consultation for discharge planning, may need skilled discharge. Encourage continued follow-up with podiatry as previously arranged. 08/09/2024: Awaiting SNF placement, she cannot take NSAIDs due to anaphylaxis to Toradol. Continue with multimodal pain relief 08/10/2024: Cannot take oxycodone but can tolerate [place]. Will stop her IV Dilaudid 08/11/2024: Awaiting pre-CERT 08/12/2024: Awaiting pre-CERT #2. Hypokalemia: Admission K+ 3.1, supplementation given, 08/08/2020 4 repeat level 3.2, will give additional supplementation and repeat level in AM. Magnesium 2.2. #3. Chronic asthma with allergic rhinitis: Will temporally hold home inhalers in the interim placed on ATC budesonide therapy, PRN albuterol, continue fluticasone home regimen. #3. Hypertension: Continue home regimen including amiloride, hydrochlorothiazide we will progress as needed, PRN hydralazine. #4. Hyperlipidemia: Not on regimen, defer to outpatient #5. Chronic adrenal insufficiency: Per current list does not appear to be on any other regimen aside low-dose prednisone, will continue but attempting to clarify. #6. Rheumatoid arthritis: Suspect no operative intervention, if this is the case would continue hydroxychloroquine, temporally hold methotrexate, continue supplemental folic acid. Currently patient is on low-dose prednisone 5 mg daily which will be continued. Encourage continued outpatient follow-up with rheumatology as previously arranged. 08/11/2024: Continue with methotrexate #7. Chart reported Pre-Diabetes mellitus type II: Not on regimen, will maintain on ADA diet, he will A1c requested, accu checks w/ ISS. #8. Hypothyroidism: We will continue patient home thyroid regimen, TSH 1.390. #9. Anxiety and depression: Continue patient on venlafaxine home regimen. #10. Obesity: Weight loss and lifestyle changes encouraged. #11. GERD: Continue patient on PPI. #12. MARCELLA: CPAP nightly. DVT: Heparin Allergies/Procedures Done in Hospital Allergies phenytoin sodium (From Dilantin) Allergy (Mild, Verified 08/07/24 16:30) Rash phenytoin sodium extended (From Dilantin) Allergy (Mild, Verified 08/07/24 16:30) Rash ketorolac tromethamine (From Toradol) Allergy (Verified 08/07/24 16:30) Anaphylaxis pt reports only to the filler morphine Adverse Reaction (Severe, Verified 08/07/24 16:30) Other not effective, confusion Procedures: None Type of Care/Length of Stay Estimated LOS: Convalescent Care Less Than 30 days Type of Care Needed: Skilled Rehab Potential: Good Prognosis: Good Additional Orders/Day of Discharge Day of Discharge: 08/12/24 Dietary and Speech Recommendations Dietitian Recommendations/Changes: Will continue diet as ordered, but change to easy to chew diet consistency and meats cut into bite size pieces per pt request Will provide egg salad sandwich on gluten free bread and banana w/ 2 peanut butters at meals per pt request Will continue ensure plus high protein w/ meals per pt request Discharge Plan Admission Admit Date/Time: 08/07/24 23:58 Attending Provider: Shlomo Goins Primary Care Provider: Care Physician,No Primary Consulting Providers: Paulie Lugo; Shlomo Palmer; White,Valeria L Discharge Orders/Prescriptions Prescriptions: New hydrocodone-acetaminophen 5-325 mg Tablet 1 tab PO Q4H PRN PRN (Reason: PAIN -4-10) 3 Days Qty: 10 0RF Continued folic acid 0.8 mg capsule 0.8 mg PO BID Patient Comments: One at morning/one at bedtime hydroxychloroquine [Plaquenil] 200 mg tablet 200 mg PO BID thyroid (pork) [Mobile Thyroid] 15 mg tablet 30 mg PO MOTUWETHFR Patient Comments: 30MG friday thru friday fluticasone propionate [Flovent HFA] 110 mcg/actuation HFA aerosol inhaler 1 puff inhalation BID PRN (Reason: ALLERGIES) magnesium oxide 500 mg capsule 600 mg PO DAILY Patient Comments: Uses 600 daily for muscle spasms (DME) Handicap Placard See Rx Instructions .ROUTE .MEDSUPPLY Qty: 1 0RF Rx Instructions: As directed, length of time 3 years potassium chloride 10 mEq capsule, extended release 10 meq PO BID pantoprazole 40 mg tablet,delayed release (DR/EC) 40 mg PO DAILY Patient Comments: Patient states that she takes twice daily when she is in the hospital amiloride-hydrochlorothiazide 5-50 mg tablet 0.5 tab PO DAILY methotrexate sodium 25 MG/ML solution 25 mg subcut QWEEK prednisone 5 mg tablet 5 mg PO DAILY Qty: 14 0RF Rx Instructions: start after finishing the 20 mg tabs (three per day) venlafaxine 37.5 mg tablet 37.5 mg PO QHS thyroid (pork) [Mobile Thyroid] 60 mg tablet 60 mg PO SUSA vitamin E (dl, acetate) 180 mg (400 unit) capsule 180 mg PO BID Rx Instructions: 800 IU orally daily calcium carbonate-vitamin D3 [Os-William 500 + D3] 500 mg-15 mcg (600 unit) tablet 1 tab PO DAILY 90 Days Qty: 90 0RF ipratropium-albuterol 0.5 mg-3 mg(2.5 mg base)/3 mL solution for nebulization 3 ml inhalation Q4H PRN PRN (Reason: SOB &/OR WHEEZING) Qty: 180 6RF ursodiol 300 mg capsule 300 mg PO BID Qty: 180 3RF sulfasalazine 500 mg tablet,delayed release (DR/EC) 1 g PO BID 90 Days Qty: 360 3RF Patient Comments: patient takes 1G BID Discontinued oxycodone-acetaminophen [Endocet] 5-325 mg tablet 1 tab PO Q6H PRN (Reason: pain) Referrals / Follow Up: Care Physician,No Primary [Primary Care Provider] - Disposition Disposition (needs filled in before D/C Order can be placed): Long-Term Facility (1) Fall Qualifiers: Encounter type: initial encounter Qualified Code(s): W19.XXXA - Unspecified fall, initial encounter
--- NOTE | 2024-08-12 11:44 | CASEMGMT ---
Social Work- Pt has accepting facility; physician advised and feels pt is medically ready for discharge. PASRR and transport forms completed. DCA notified of discharge readiness. Final discharge arrangements and notification to patient/family as per discharge manager business planning.? Plan: [facility]; skilled level of care [facility] Davila
[2024-08-12 12:13] VITALS: BP 116/65; PULSE 99; RESP 16; TEMP 36.7; O2SAT 95
--- NOTE | 2024-08-12 12:24 | CASEMGMT ---
Discharge Planning Discharge orders, signed med list, and transport time sent to [facility] via [facility]. Physicians will transport patient by wheelchair at 2:30p. Nursing, SW, pt, and her son (Jose L) updated. Yolande Knight DC Planning Asst.
--- NOTE | 2024-08-12 13:12 | DS.PCM_ITS ---
Providers Date of Admission: 08/07/24 Primary Care Physician: No Primary Care Phys Consultations 08/08/24 01:09 Consult: Orthopedics Routine Consulting Provider: Shlomo Palmer Reason for Consult: Left Humeral Fracture after Fall. EMERGENT Consult: No MD Notified: Yes Date Notified: 08/08/24 Time Notified: 07:19 Method of Notification: Text Reason For Visit: LEFT HUMERL FRACTURE AFTER FALL Diagnosis Discharge Diagnosis (1) Fall: Status: Acute Code(s): W19.XXXA - Unspecified fall, initial encounter Qualifiers: Encounter type: initial encounter Qualified Code(s): W19.XXXA - Unspecified fall, initial encounter Medications at Discharge Home Medications folic acid 0.8 mg capsule 0.8 mg PO BID supplement 07/14/18 hydroxychloroquine 200 mg tablet (Plaquenil) 200 mg PO BID ra 09/01/18 methotrexate sodium 25 mg/mL injection solution 25 mg subcut QWEEK rheumatoid arthritis 09/25/20 fluticasone propionate 110 mcg/actuation HFA aerosol inhaler (Flovent HFA) 1 puff inhalation BID PRN ALLERGIES 06/12/21 magnesium oxide 500 mg capsule 600 mg PO DAILY Supplement 09/11/21 prednisone 5 mg tablet 5 mg PO DAILY #14 tabs 02/01/22 Handicap Placard #1 ea 11/22/22 ipratropium 0.5 mg-albuterol 3 mg (2.5 mg base)/3 mL nebulization soln 3 ml inhalation Q4H PRN PRN SOB &/OR WHEEZING #180 mL 05/20/23 potassium chloride 10 mEq capsule,extended release 10 meq PO BID 07/22/23 ursodiol 300 mg capsule 300 mg PO BID #180 caps 12/17/23 sulfasalazine 500 mg tablet,delayed release 1 g (2 x 500 mg) PO BID 90 days #360 tabs 01/23/24 venlafaxine 37.5 mg tablet 37.5 mg PO QHS 04/13/24 pantoprazole 40 mg tablet,delayed release 40 mg PO DAILY acid 05/17/24 thyroid (pork) 15 mg tablet ([place] Thyroid) 30 mg PO MOTUWETHFR thyroid 05/17/24 thyroid (pork) 60 mg tablet ([place] Thyroid) 60 mg PO SUSA 06/08/24 vitamin E (dl, acetate) 180 mg (400 unit) capsule 180 mg PO BID 06/08/24 calcium 500 mg (as carbonate)-vitamin D3 15 mcg (600 unit) tablet (Os-William 500 + D3) 1 tab PO DAILY 90 days #90 tabs 06/11/24 amiloride 5 mg-hydrochlorothiazide 50 mg tablet 0.5 tab PO DAILY 07/21/24 hydrocodone-acetaminophen 5-325mg 5mg-325mg 1 tab PO Q4H PRN PRN PAIN -4-10 3 days #10 tabs 08/12/24 Hospital Course Operations None Procedures None Summary of Care Provided Minutes Spent on Discharge: 33 Hospital Course: Per HPI: MITCHELL DEJESUS, is a 73 F with a past medical history of essential hypertension, hypothyroidism, morbid obesity; with BMI of 41.9 this admission, central sleep apnea; on CPAP, NAFLD, DM-2; of unknown control, hypopituitarism, adrenal insufficiency, Sjogren's disease, RA, 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 Coleman June 2024 who presents to [facility] ER complaining of severe Left arm pain after fall. Ms. Dejesus reports her symptoms began approximately 1 hour prior to arrival when she was trying to go to into her bathroom and needed to move backward when she stumbled over a boot on the door frame and fell forward directly onto her left elbow jamming her Left elbow shoulder with subsequent severe Left arm pain. She denies loss of consciousness or significant head trauma with her fall. She states her pain is severe aching and radiating down her entire left arm with patient unable to move it or even be touched without severe worsening. She then activated EMS who administered 50 mcg of fentanyl IV prior to arrival. Patient is chronically anxious and difficult to manage stating that she cannot take pain medications due to side effects and she cannot take Tylenol due to her nonalcoholic alcoholic fatty liver disease and cannot take ibuprofen because of her renal insufficiency. She denies associated numbness or tingling in her Left arm. She denies associated fever, chills, nausea, vomiting, chest pain, shortness of breath or headache but she does admit to heightened anxiety and occasional dry cough. Patient lives at home alone and cannot care for herself in her current condition due to her recent Left foot surgery and now with a Left humeral fracture that is left her unable to use a walker to mobilize meaning she will likely have to transition to an ECF for the time being. In the ER she was noted to have x-ray evidence of a mildly impacted Left humeral neck fracture with degenerative changes at the shoulder complicated by clinical evidence of Intractable Pain and she was then admitted to the general medical floor for ongoing care for status is expected to extend beyond 2 midnights with formal orthopedic surgery consultation pending in the a.m. and appreciated in advance. Hospital Course: #1. Mechanical fall with acutely mildly impacted left humeral neck fracture with degenerative changes at the shoulder with acute on chronic intractable pain complicated by recent left foot podiatric surgery: Admitted to medical surgical floor, maintain on fall precautions, continue left upper extremity sling with nonweightbearing status, orthopedic surgery consulted but at this point would expect nonoperative management, following with podiatry Dr. Coleman with ongoing dressings to the left lower extremity and boot with activity, as needed pain regimen, antiemetic regimen, adding low-dose tizanidine cautiously per patient strong request. PT/OT/case management consultation for discharge planning, may need skilled discharge. Encourage continued follow-up with podiatry as previously arranged. 08/09/2024: Awaiting SNF placement, she cannot take NSAIDs due to anaphylaxis to Toradol. Continue with multimodal pain relief 08/10/2024: Cannot take oxycodone but can tolerate Williams. Will stop her IV Dilaudid 08/11/2024: Awaiting pre-CERT 08/12/2024: Received pre-CERT, discussed with her the plan for discharge she expressed understanding the risk benefits going to the [facility] would like to go today to get started on rehab. Continue nonweightbearing in her left upper extremity with her arm in the sling 23 hours a day for 3 weeks #2. Hypokalemia: Admission K+ 3.1, supplementation given, 08/08/2020 4 repeat level 3.2, will give additional supplementation and repeat level in AM. Magnesium 2.2. #3. Chronic asthma with allergic rhinitis: Will temporally hold home inhalers in the interim placed on ATC budesonide therapy, PRN albuterol, continue fluticasone home regimen. #3. Hypertension: Continue home regimen including amiloride, hydrochlorothiazide we will progress as needed, PRN hydralazine. #4. Hyperlipidemia: Not on regimen, defer to outpatient #5. Chronic adrenal insufficiency: Per current list does not appear to be on any other regimen aside low-dose prednisone, will continue but attempting to clarify. #6. Rheumatoid arthritis: Suspect no operative intervention, if this is the case would continue hydroxychloroquine, temporally hold methotrexate, continue supplemental folic acid. Currently patient is on low-dose prednisone 5 mg daily which will be continued. Encourage continued outpatient follow-up with rheumatology as previously arranged. 08/11/2024: Continue with methotrexate #7. Chart reported Pre-Diabetes mellitus type II: Not on regimen, will maintain on ADA diet, he will A1c requested, accu checks w/ ISS. #8. Hypothyroidism: We will continue patient home thyroid regimen, TSH 1.390. #9. Anxiety and depression: Continue patient on venlafaxine home regimen. #10. Obesity: Weight loss and lifestyle changes encouraged. #11. GERD: Continue patient on PPI. #12. MARCELLA: CPAP nightly. Physical Exam Narrative General: Alert, Oriented x3, Cooperative, No apparent distress HEENT: Atraumatic, PERRLA, EOMI, Normocephalic Oral: Moist Mucosa Neck: Supple, No JVD Lungs: Clear to auscultation, Normal air movement, No rhonchi, No wheeze, No rales Cardiovascular: Regular rate, Regular Rhythm, Normal S1, Normal S2, No murmurs Abdomen: Soft, Non Tender, Non-Distended, No Hepato-splenomegaly Extremities: No edema, Capillary Refill Less than 3 Seconds Skin: No rashes, No breakdown Musculoskeletal: Left upper extremity in a sling, tender to palpation. Nonoperative humeral fracture Neurological: No focal neurological deficits, Motor Exam 5/5 strength throughout, Sensory exam intact to light touch and pain Psych/Mental Status: Normal Affect, Appropriate Weight / BMI Weight Weight: 234 lb 9.149 oz Body Mass Index (BMI) 39.0 ABG / Lab / Microbiology Data 08/11/24 05:35 08/11/24 05:35 Laboratory: Laboratory Results - last 24 hr 08/11/24 16:45: POC Glucose 93 08/12/24 06:49: POC Glucose 101 D/C Instructions DC O2, CPAP, BIPAP Needs Home O2 Discharge instructions: No Meaningful Use Info Meaningful Use Meaningful Use Diagnoses (Choose all that apply): None applicable Ischemic Stroke Statin Dosing Therapy Reference: STATIN DOSE THERAPY REFERENCE: * Patients > 75 years receive moderate or high dose statin therapy. * Patients 75 years or YOUNGER should receive HIGH intensity statin dose unless contraindicated. You will be required to document reason for non-treatment if statin daily dose does not meet guidelines. HIGH DOSE STATIN THERAPY DAILY Atorvastatin > than or = to 40 mg Rosuvastatin > than or = to 20 mg Amlodipine + Atorvastatin > than or = to 2.5/40 mg Ezetimibe + Simvastatin 10/80 mg Simvastatin 80mg Discharge Plan Admission Admit Date/Time: 08/07/24 23:58 Attending Provider: Shlomo Goins Primary Care Provider: Care Physician,No Primary Consulting Providers: Paulie Lugo; Shlomo Palmer; Valeria Smith Discharge Orders/Prescriptions Prescriptions: New hydrocodone-acetaminophen 5-325 mg Tablet 1 tab PO Q4H PRN PRN (Reason: PAIN -4-10) 3 Days Qty: 10 0RF Continued folic acid 0.8 mg capsule 0.8 mg PO BID Patient Comments: One at morning/one at bedtime hydroxychloroquine [Plaquenil] 200 mg tablet 200 mg PO BID thyroid (pork) [[place] Thyroid] 15 mg tablet 30 mg PO MOTUWETHFR Patient Comments: 30MG friday thru friday fluticasone propionate [Flovent HFA] 110 mcg/actuation HFA aerosol inhaler 1 puff inhalation BID PRN (Reason: ALLERGIES) magnesium oxide 500 mg capsule 600 mg PO DAILY Patient Comments: Uses 600 daily for muscle spasms (DME) Handicap Placard See Rx Instructions .ROUTE .MEDSUPPLY Qty: 1 0RF Rx Instructions: As directed, length of time 3 years potassium chloride 10 mEq capsule, extended release 10 meq PO BID pantoprazole 40 mg tablet,delayed release (DR/EC) 40 mg PO DAILY Patient Comments: Patient states that she takes twice daily when she is in the hospital amiloride-hydrochlorothiazide 5-50 mg tablet 0.5 tab PO DAILY methotrexate sodium 25 MG/ML solution 25 mg subcut QWEEK prednisone 5 mg tablet 5 mg PO DAILY Qty: 14 0RF Rx Instructions: start after finishing the 20 mg tabs (three per day) venlafaxine 37.5 mg tablet 37.5 mg PO QHS thyroid (pork) [[place] Thyroid] 60 mg tablet 60 mg PO SUSA vitamin E (dl, acetate) 180 mg (400 unit) capsule 180 mg PO BID Rx Instructions: 800 IU orally daily calcium carbonate-vitamin D3 [Os-William 500 + D3] 500 mg-15 mcg (600 unit) tablet 1 tab PO DAILY 90 Days Qty: 90 0RF ipratropium-albuterol 0.5 mg-3 mg(2.5 mg base)/3 mL solution for nebulization 3 ml inhalation Q4H PRN PRN (Reason: SOB &/OR WHEEZING) Qty: 180 6RF ursodiol 300 mg capsule 300 mg PO BID Qty: 180 3RF sulfasalazine 500 mg tablet,delayed release (DR/EC) 1 g PO BID 90 Days Qty: 360 3RF Patient Comments: patient takes 1G BID Discontinued oxycodone-acetaminophen [Endocet] 5-325 mg tablet 1 tab PO Q6H PRN (Reason: pain) Referrals / Follow Up: Care Physician,No Primary [Primary Care Provider] - Disposition Disposition (needs filled in before D/C Order can be placed): [facility] Facility Charges/Coding Visit Charges Inpatient E&M: 32370 Disch Hosp >30min
== END 2024-08-12 16:22 | disposition skilled nursing facility (03) | DRG 563 ==
LOC: ED 20:16 → MS3 23:53
PROVIDERS: Family Medicine; Admitting Provider Internal Medicine; Emergency Provider Emergency Medicine; Visit Provider Family Medicine
DX: S42.212A Unspecified displaced fracture of surgical neck of left humerus, initial encounter for closed fracture (principal); E27.40 Unspecified adrenocortical insufficiency; Z68.41 Body mass index [BMI] 40.0-44.9, adult; D50.9 Iron deficiency anemia, unspecified; E03.9 Hypothyroidism, unspecified; K76.0 Fatty (change of) liver, not elsewhere classified; I10 Essential (primary) hypertension; J45.909 Unspecified asthma, uncomplicated; F32.A Depression, unspecified; M35.00 Sjogren syndrome, unspecified; M06.9 Rheumatoid arthritis, unspecified; E66.01 Morbid (severe) obesity due to excess calories; G47.33 Obstructive sleep apnea (adult) (pediatric); M19.019 Primary osteoarthritis, unspecified shoulder; F41.9 Anxiety disorder, unspecified; K21.9 Gastro-esophageal reflux disease without esophagitis; E87.6 Hypokalemia; E78.5 Hyperlipidemia, unspecified; W18.09XA Striking against other object with subsequent fall, initial encounter; R73.03 Prediabetes; Y92.003 Bedroom of unspecified non-institutional (private) residence as the place of occurrence of the external cause; R53.81 Other malaise; G89.4 Chronic pain syndrome; N28.9 Disorder of kidney and ureter, unspecified; Z68.38 Body mass index [BMI] 38.0-38.9, adult; Z79.51 Long term (current) use of inhaled steroids; Z79.52 Long term (current) use of systemic steroids; Z79.890 Hormone replacement therapy; Z79.899 Other long term (current) drug therapy
CPT/HCPCS: 36415; 73030; 73060; 80048; 80053; 81001; 82962; 83036; 83605; 83735; 84100; 84443; 85025; 94640; 94668; 97116; 97162; 97166; 97530; 97535; 97802; 97803; 99285; P9612; A4216

== ENCOUNTER → 2024-09-16 | Outpatient (CLI) | payer MEDICARE, OTHER, SELFPAY ==
[2024-09-16 18:28] LABS: Anion Gap 7 (5-15); BUN 26 mg/dL (7-18); BUN/Creat Ratio 39.5 RATIO (10-20); Calcium,Total 9.1 mg/dL (8.5-10.1); Chloride 108 mmol/L (98-107); Cholesterol 195 mg/dL (200); Creatinine, Serum 0.66 mg/dL (0.55-1.02); EST Glomerular Filtration Rate 94 mL/min (>60); Est Glom Filt Rate - Afr Amer 114 mL/min (>60); Glucose 90 mg/dL (74-106); High Density Lipoprotein 81 mg/dL; Potassium 3.6 mmol/L (3.5-5.1); Sodium Level 140 mmol/L (136-145); T4 Free Direct 0.83 ng/dL (0.76-1.46); Triglycerides 60 mg/dL; Very Low Density Lipoprotein 12 mg/dL (5-40)
== END | disposition home or self-care (01) ==
LOC: MFPLAB 15:23
PROVIDERS: PCP Family Medicine; Referring Provider Family Medicine; Visit Provider Family Medicine
DX: I10 Essential (primary) hypertension (principal); E03.9 Hypothyroidism, unspecified
CPT/HCPCS: 36415; 80048; 80061; 84439; 84443; 84481

== ENCOUNTER → 2024-11-19 | Outpatient (CLI) | payer MEDICARE, OTHER, SELFPAY ==
[2024-11-19 13:46] LABS: Absolute Lymphocyte Count 3.88 X10^3/uL (0.83-4.51); Absolute Neutrophil Count 2.8 X10^3/uL (2.0-7.7); Basophil# 0.04 X10^3/uL; Basophil% 0.6 % (0-1); Eosinophils% 2.8 % (0-5); Hematocrit 36.2 % (37-47); Hemoglobin 11.7 g/dL (12.0-15.0); Lymphocyte # 3.88 X10^3/ul (0.83-4.51); Lymphocyte % 53.5 % (19-41); Mean Corp Hgb Conc 32.3 g/dL (32-36); Mean Corpuscular Hgb 32.5 pg (27.0-32.0); Mean Corpuscular Volume 100.6 fL (81-99); Mean Platelet Vol. 9.2 fl (6.2-12.0); Monocyte# 0.34 X10^3/uL; Monocyte% 4.7 % (0-10); NRBC Flagged by Analyzer 0 % (0-5); Neutrophil # 2.78 X10^3/uL (2.7-7.7); Neutrophil % 38.3 % (47-70); Platelet Count 294 K/mm3 (150-450); RBC Distribution Width CV 12.7 % (11.6-14.6); RBC Distribution Width SD 47.3 fl (35.1-43.9); White Blood Count 7.3 K/mm3 (4.4-11.0)
[2024-11-19 14:14] LABS: ALB/GLOB Ratio 1.6 RATIO (0.9-2.4); AST(SGOT) 21 U/L (<=31); Alanine Aminotransfer ALT/SGPT 12 U/L (<=34); Albumin, Serum 4.1 g/dL (3.4-4.8); Alkaline Phosphatase 110 U/L (35-104); Anion Gap 11 (5-15); BUN 18 mg/dL (4-19); BUN/Creat Ratio 21.4 RATIO (10-20); Calcium,Total 9.2 mg/dL (7.6-11.0); Chloride 106 mmol/L (98-108); Creatinine, Serum 0.82 mg/dL (0.70-1.20); EST Glomerular Filtration Rate 77 (>60); Globulin 2.5 g/dL (2.2-4.2); Glucose 108 mg/dL (70-99); Potassium 3.6 mmol/L (3.3-5.1); Protein, Total 6.6 g/dL (5.9-8.4); Sodium Level 140 mmol/L (133-145); Total Bilirubin 0.37 mg/dL (0.00-1.30)
== END | disposition home or self-care (01) ==
LOC: LAB 13:13
PROVIDERS: PCP Family Medicine; Referring Provider Internal Medicine Rheumatology; Visit Provider Internal Medicine Rheumatology
DX: M06.4 Inflammatory polyarthropathy (principal); M17.0 Bilateral primary osteoarthritis of knee; M16.0 Bilateral primary osteoarthritis of hip; M79.7 Fibromyalgia; Z79.899 Other long term (current) drug therapy
CPT/HCPCS: 36415; 80053; 85025

== ENCOUNTER → 2024-11-23 | Outpatient (CLI) | payer MEDICARE, OTHER, SELFPAY ==
--- NOTE | 2024-11-23 16:14 | BD_ITS ---
PROCEDURE: DEXA BONE DENSITY STUDY 11/23/2024 REASON FOR EXAM: F, age 73 y/o . Postmenopausal. TECHNIQUE: DXA scan of the lumbar spine and both hips, using make and model. REFERENCE LINKS: ISCD Adult Positions COMPARISON: Comparison is made with prior study dated November 04, 2023. FINDINGS: BMD and T-SCORES Lumbar spine: 0.954 g/cm2, T-Score -0.5 L1 through L4 Change from prior: Improvement of 3.3% Left femoral neck: 0.599 g/cm2, T-Score -2.3 Femoral neck comparison data not recommended for monitoring change. Left total hip: 0.885 g/cm2, T-Score -0.5 Change from prior: Loss of 3.8% Right femoral neck: 0.5 9 6 g/cm2, T-Score -2.3 Femoral neck comparison data not recommended for monitoring change. Right total hip: 0.883 g/cm2, T-Score -0.5 Change from prior: Improvement of 4.2% Fracture Risk Calculation: FRAX (10-year Fracture Risk) Score: FRAX scores should never be reported in a patient with osteoporosis on DEXA or for any patient that is on bone medication. The patient doesmeet the pharmacological treatment recommendations for prevention of osteoporosis BD/Dexa Bone Density Study IMPRESSION: OSTEOPENIA. Recommend follow-up as clinically warranted. Reading Location: [place] [id number]
== END | disposition home or self-care (01) ==
PROVIDERS: PCP Family Medicine; Referring Provider Internal Medicine Endocrinology, Diabetes & Metabolism; Visit Provider Internal Medicine Endocrinology, Diabetes & Metabolism
DX: Z78.0 Asymptomatic menopausal state (principal); M85.80 Other specified disorders of bone density and structure, unspecified site; S42.309A Unspecified fracture of shaft of humerus, unspecified arm, initial encounter for closed fracture; X58.XXXA Exposure to other specified factors, initial encounter
CPT/HCPCS: 77080

== ENCOUNTER 2024-12-09 18:02 | Emergency (ER) | payer MEDICARE, OTHER, SELFPAY ==
[2024-12-09 18:04] VITALS: BP 131/77; PULSE 103; RESP 18; TEMP 36.6; O2SAT 99; BMI 39.6
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
[2024-12-09] MEDS: 0.9% Normal Saline (1000mL) 1,000 ML 1000 ML IV (18:32)
[2024-12-09 18:36] LABS: Bacteria 0 SEEN /hpf (None Seen); Mucous, Urine 0 SEEN /hpf (<or=2+)
[2024-12-09 18:38] LABS: Bedside Glucose 111 mg/dL (74-106)
[2024-12-09 18:39] LABS: Absolute Lymphocyte Count 2.75 X10^3/uL (0.83-4.51); Absolute Neutrophil Count 6.1 X10^3/uL (2.0-7.7); Basophil# 0.05 X10^3/uL; Basophil% 0.5 % (0-1); Eosinophil# 0.14 X10^3/uL; Eosinophils% 1.4 % (0-5); Hematocrit 37.9 % (37-47); Hemoglobin 12.7 g/dL (12.0-15.0); Lymphocyte # 2.75 X10^3/ul (0.83-4.51); Lymphocyte % 28.1 % (19-41); Mean Corp Hgb Conc 33.5 g/dL (32-36); Mean Corpuscular Volume 95.5 fL (81-99); Monocyte# 0.75 X10^3/uL; Monocyte% 7.7 % (0-10); NRBC Flagged by Analyzer 0 % (0-5); Neutrophil # 6.05 X10^3/uL (2.7-7.7); Neutrophil % 61.9 % (47-70); Platelet Count 337 K/mm3 (150-450); RBC Distribution Width CV 12.9 % (11.6-14.6); RBC Distribution Width SD 45.1 fl (35.1-43.9); Red Blood Count 3.97 M/mm3 (4.2-5.4); White Blood Count 9.8 K/mm3 (4.4-11.0)
[2024-12-09 18:40] LABS: Color, Urine Yellow (Yellow); Glucose, Dipstick Normal (Normal); Ketone-Dipstick 5 mg/dl (Negative); Leukocyte Esterase-Dipstick Negative /ul (Negative); Nitrite-Dipstick Negative (Negative); Occult Blood-Urine Negative /ul (Negative); Protein-Dipstick 15 mg/dl (Negative); Urine Bilirubin Dipstick Negative (Negative); Urine Clarity Clear (Clear); Urine Urobilinogen Normal (Normal)
--- NOTE | 2024-12-09 18:45 | CT_ITS ---
PROCEDURE: BRAIN/HEAD WITHOUT CONTRAST 12/09/2024 REASON FOR EXAM: ALTERED MENTAL STATUS TECHNIQUE: Head CT without intravenous contrast. Coronal and Sagittal reconstruction series were provided. One or more dose reduction techniques were used (e.g., Automated exposure control, adjustment of the mA and/or kV according to patient size, use of iterative reconstruction technique. COMPARISON: MRI brain 05/07/2018 FINDINGS: No acute intracranial hemorrhage, mass, mass effect, midline shift or pathologic extra-axial fluid collection. Mild parenchymal atrophy with commensurate increase in CSF containing spaces. Patchy white matter hypodensities, patient demographics favor chronic microvascular ischemic changes. Paranasal sinuses and mastoid air cells are clear. The calvarium is grossly intact. CT/Brain/Head without Contrast IMPRESSION: No acute intracranial abnormality. Chronic microvascular ischemia and involutional changes. [facility]
--- NOTE | 2024-12-09 18:45 | RAD_ITS ---
PROCEDURE: CHEST PA AND LATERAL 12/09/2024 REASON FOR EXAM: MEDICAL CLEARANCE TECHNIQUE: Frontal and lateral views of the chest. COMPARISON: CT chest 11/27/2019 FINDINGS: Hardware: None Heart: Heart size is mildly enlarged. Mediastinum: There are atherosclerotic calcifications of the thoracic aorta. Lungs: No focal consolidation. No pneumothorax. No pleural effusion. Bones: Degenerative changes are identified within the thoracic spine. RAD/Chest PA and Lateral IMPRESSION: NO ACUTE FINDINGS. Reading Location: [facility]
[2024-12-09 19:00] LABS: ALB/GLOB Ratio 1.5 RATIO (0.9-2.4); AST(SGOT) 22 U/L (<=31); Alanine Aminotransfer ALT/SGPT 12 U/L (<=34); Albumin, Serum 4.4 g/dL (3.4-4.8); Alkaline Phosphatase 128 U/L (35-104); Anion Gap 15 (5-15); BUN 28 mg/dL (4-19); BUN/Creat Ratio 31.5 RATIO (10-20); Calcium,Total 9.3 mg/dL (7.6-11.0); Carbon Dioxide 20.6 mmol/L (21.0-32.0); Chloride 102 mmol/L (98-108); Creatinine, Serum 0.89 mg/dL (0.70-1.20); EST Glomerular Filtration Rate 68 (>60); Estimated Creatinine Clearance 69.85 ml/min (50-250); Globulin 2.9 g/dL (2.2-4.2); Glucose 128 mg/dL (70-99); Potassium 3.5 mmol/L (3.3-5.1); Protein, Total 7.2 g/dL (5.9-8.4); Sodium Level 137 mmol/L (133-145); Total Bilirubin 0.59 mg/dL (0.00-1.30)
[2024-12-09 19:03] VITALS: BP 151/72; PULSE 84; O2SAT 99
[2024-12-09 19:06] LABS: CORTISOL PM 5.52 ug/dL (2.68-10.50)
[2024-12-09 19:11] LABS: Red Blood Cells-Urine 0-5 SEEN /hpf (0-5); Squamous Epithelial Cells - UA 0-5 SEEN /hpf (5-10); White Blood Cells 0-5 SEEN /hpf (0-5)
[2024-12-09 19:12] LABS: Hyaline Cast 0-5 SEEN /lpf (0-5)
[2024-12-09 19:19] LABS: Alcohol, Blood (Medical)-Serum < 10.1 mg/dL (<=10.0)
[2024-12-09 19:45] LABS: Amphetamine Urine NEGATIVE (<1000 ng/mL); Barbiturate Urine NEGATIVE (< 200 ng/mL); Benzodiazepine Urine NEGATIVE (< 200 ng/mL); Buprenorphine Urine NEGATIVE (< 200 ng/mL); Cocaine Urine NEGATIVE (< 300 ng/mL); Fentanyl, Urine NEGATIVE; Methadone Urine NEGATIVE (< 300 ng/mL); Opiates Urine NEGATIVE (< 300 ng/mL); Oxycodone, Urine NEGATIVE (< 100 ng/mL); PCP Urine NEGATIVE (< 25 ng/mL); THC Urine NEGATIVE (< 50 ng/mL)
[2024-12-09 20:00] VITALS: BP 133/62; PULSE 78
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
--- NOTE | 2024-12-09 22:24 | CM.ED ---
Social work Per Dr. Ramon request, met with patient and did mental health assessment (see other note). Spoke with patient's children, Jose L and Dalia, for collaboration. After deciding patient needed inpatient placement, updated Dalia who remained in waiting room. Dalia stated Dalia would update Jose L. Handoff to [facility] at [facility] (ph: [phone]) and referral packet faxed (f: ). Jayne Paniagua, HOURLY SIGN LANGUAGE INTERPRETER, TIGHT [employer]OPER
[2024-12-09] MEDS: Venlafaxine HCl 25 MG Tablet 37.5 MG PO (23:16)
[2024-12-09] MEDS: predniSONE 20 MG Tablet 40 MG PO (23:17)
--- NOTE | 2024-12-09 23:22 | ED.RN ---
pt unsure of all medications.
--- NOTE | 2024-12-10 01:17 | ED.RN ---
report called to [facility]
[2024-12-10 05:50] VITALS: BP 147/90; PULSE 91; RESP 18; TEMP 36.6; O2SAT 96
[2024-12-10 05:51] VITALS: BP 147/90; PULSE 91; RESP 18; O2SAT 98
[2024-12-10] MEDS: Thyroid 15 MG Tablet PO (08:46)
[2024-12-10] MEDS: sulfaSALAzine 500 MG Tablet 1000 MG PO (08:46)
[2024-12-10] MEDS: predniSONE 5 MG Tablet PO (08:46)
[2024-12-10] MEDS: Pantoprazole Sodium 40 MG Tablet PO (08:46)
[2024-12-10] MEDS: Potassium Chloride Oral Tablet 10 MEQ PO (08:46)
[2024-12-10] MEDS: Ursodiol 250 MG Tablet PO (08:46)
--- NOTE | 2024-12-10 09:35 | ED.RN ---
Pt insisted on outpt labs being done prior to her going to the facility. This was completed with multiple people being involved due to difficulty in getting orders etc.
[2024-12-10 09:52] LABS: Absolute Lymphocyte Count 1.32 X10^3/uL (0.83-4.51); Absolute Neutrophil Count 4.1 X10^3/uL (2.0-7.7); Basophil# 0.02 X10^3/uL; Basophil% 0.3 % (0-1); Eosinophil# 0.02 X10^3/uL; Eosinophils% 0.3 % (0-5); Hematocrit 39.5 % (37-47); Hemoglobin 13.2 g/dL (12.0-15.0); Lymphocyte # 1.32 X10^3/ul (0.83-4.51); Lymphocyte % 22.6 % (19-41); Mean Corp Hgb Conc 33.4 g/dL (32-36); Mean Corpuscular Volume 95.9 fL (81-99); Mean Platelet Vol. 9.1 fl (6.2-12.0); Monocyte# 0.34 X10^3/uL; Monocyte% 5.8 % (0-10); NRBC Flagged by Analyzer 0 % (0-5); Neutrophil % 70.5 % (47-70); Platelet Count 359 K/mm3 (150-450); RBC Distribution Width CV 12.7 % (11.6-14.6); RBC Distribution Width SD 45.4 fl (35.1-43.9); Red Blood Count 4.12 M/mm3 (4.2-5.4); White Blood Count 5.8 K/mm3 (4.4-11.0)
[2024-12-10 10:33] LABS: ALB/GLOB Ratio 1.7 RATIO (0.9-2.4); AST(SGOT) 26 U/L (<=31); Alanine Aminotransfer ALT/SGPT 14 U/L (<=34); Albumin, Serum 4.8 g/dL (3.4-4.8); Alkaline Phosphatase 138 U/L (35-104); Anion Gap 13 (5-15); Anion Gap 14 (5-15); BUN 20 mg/dL (4-19); BUN/Creat Ratio 26.3 RATIO (10-20); Calcium,Total 9.5 mg/dL (7.6-11.0); Calcium,Total 9.7 mg/dL (7.6-11.0); Carbon Dioxide 21.7 mmol/L (21.0-32.0); Carbon Dioxide 22.5 mmol/L (21.0-32.0); Chloride 101 mmol/L (98-108); Chloride 102 mmol/L (98-108); Creatinine, Serum 0.73 mg/dL (0.70-1.20); Creatinine, Serum 0.74 mg/dL (0.70-1.20); EST Glomerular Filtration Rate 85 (>60); EST Glomerular Filtration Rate 88 (>60); Estimated Creatinine Clearance 77.71 ml/min (50-250); Globulin 2.8 g/dL (2.2-4.2); Glucose 191 mg/dL (70-99); Glucose 193 mg/dL (70-99); LDH 266 U/L (84-246); Potassium 3.5 mmol/L (3.3-5.1); Protein, Total 7.6 g/dL (5.9-8.4); Sodium Level 137 mmol/L (133-145); Total Bilirubin 0.36 mg/dL (0.00-1.30)
[2024-12-11 04:07] LABS: Calcium, Urine 4.7 mg/dL (Not Estab.)
[2024-12-14 15:08] LABS: Albumin 4.1 g/dL (2.9-4.4); Alpha-1-Globulins 0.3 g/dL (0.0-0.4); Alpha-2-Globulins 0.8 g/dL (0.4-1.0); Free Lambda Light Chains 17.3 mg/L (5.7-26.3); Gamma Globulin 0.8 g/dL (0.4-1.8); Immunoglobulin A 289 mg/dL (64-422); Immunoglobulin G 831 mg/dL (586-1602); Immunoglobulin M 44 mg/dL (26-217); PROEL- TOTAL PROTEIN 7.2 g/dL (6.0-8.5)
== END 2024-12-10 10:21 ==
PROVIDERS: Internal Medicine Medical Oncology; Emergency Provider Emergency Medicine; PCP Family Medicine; Visit Provider Emergency Medicine
DX: F22 Delusional disorders (principal); G89.29 Other chronic pain; M79.671 Pain in right foot; M79.672 Pain in left foot; I10 Essential (primary) hypertension; E03.9 Hypothyroidism, unspecified; M25.511 Pain in right shoulder; Z79.890 Hormone replacement therapy; Z79.899 Other long term (current) drug therapy
CPT/HCPCS: 70450; 71046; 80048; 80053; 80307; 81001; 82077; 82340; 82533; 82570; 82784; 82962; 83615; 83883; 84165; 85025; 86334; 96360; 96361; 99285; P9612; A4216

== ENCOUNTER → 2024-12-22 | Outpatient (CLI) | payer MEDICARE, OTHER, SELFPAY ==
[2024-12-22 17:48] LABS: PTHIN 61 pg/mL (11-61)
[2024-12-22 18:02] LABS: Free T3 2.9 pg/mL (2.18-3.98); Vitamin D,25 Hydroxy 49.3 ng/mL (30-100)
[2024-12-22 19:47] LABS: Hemoglobin A1c 5.4 % (<=5.6)
== END | disposition home or self-care (01) ==
LOC: LAB 15:43
PROVIDERS: PCP Family Medicine; Referring Provider Internal Medicine Endocrinology, Diabetes & Metabolism; Visit Provider Internal Medicine Endocrinology, Diabetes & Metabolism
DX: E27.40 Unspecified adrenocortical insufficiency (principal); E03.9 Hypothyroidism, unspecified; E78.00 Pure hypercholesterolemia, unspecified; R73.03 Prediabetes; E55.9 Vitamin D deficiency, unspecified
CPT/HCPCS: 36415; 82306; 83036; 83970; 84439; 84443; 84481

== ENCOUNTER → 2025-02-08 | Outpatient (CLI) | payer MEDICARE, OTHER, SELFPAY | END | disposition home or self-care (01) | PROVIDERS: PCP Family Medicine; Referring Provider Nurse Practitioner Family; Visit Provider Nurse Practitioner Family | DX: G47.33 Obstructive sleep apnea (adult) (pediatric) (principal); Z53.8 Procedure and treatment not carried out for other reasons ==

== ENCOUNTER 2025-02-09 11:17 | Outpatient (RCR) | payer MEDICARE, OTHER, SELFPAY ==
[2025-02-09 11:55] LABS: Hematocrit 38.2 % (37-47); Hemoglobin 12.6 g/dL (12.0-15.0); Immature Granulocytes Count 0.020 X10^3/uL (0.0-0.0); Mean Corp Hgb Conc 33.0 g/dL (32-36); Mean Corpuscular Volume 97.9 fL (81-99); Mean Platelet Vol. 9.2 fl (6.2-12.0); NRBC Flagged by Analyzer 0 % (0-5); Platelet Count 346 K/mm3 (150-450); RBC Distribution Width CV 13.0 % (11.6-14.6); RBC Distribution Width SD 46.5 fl (35.1-43.9); Red Blood Count 3.90 M/mm3 (4.2-5.4); White Blood Count 7.0 K/mm3 (4.4-11.0)
[2025-02-09 12:38] LABS: AST(SGOT) 23 U/L (<=31); Alanine Aminotransfer ALT/SGPT 12 U/L (<=34); Albumin, Serum 4.3 g/dL (3.4-4.8); Alkaline Phosphatase 113 U/L (35-104); Anion Gap 12 (5-15); BUN 20 mg/dL (4-19); BUN/Creat Ratio 29.2 RATIO (10-20); Calcium,Total 9.2 mg/dL (7.6-11.0); Carbon Dioxide 24.6 mmol/L (21.0-32.0); Chloride 104 mmol/L (98-108); Globulin 2.4 g/dL (2.2-4.2); Glucose 96 mg/dL (70-99); Potassium 3.5 mmol/L (3.3-5.1)
== END 2025-03-10 21:27 | disposition home or self-care (01) ==
LOC: LAB 11:17
PROVIDERS: PCP Family Medicine; Referring Provider Internal Medicine Rheumatology; Visit Provider Internal Medicine Rheumatology
DX: M06.4 Inflammatory polyarthropathy (principal); Z79.899 Other long term (current) drug therapy; M79.7 Fibromyalgia; M17.0 Bilateral primary osteoarthritis of knee; M16.0 Bilateral primary osteoarthritis of hip
CPT/HCPCS: 36415; 80053; 85025

== ENCOUNTER 2025-02-10 14:35 | Emergency (ER) | payer MEDICARE, OTHER, SELFPAY ==
[2025-02-10] VITALS (11 sets, daily range): BP systolic 122–155; BP diastolic 66–91; PULSE 74–102; RESP 14–24; TEMP 36.1–36.6; O2SAT 95–100
--- NOTE | 2025-02-10 15:28 | EKG12_ITS ---
Test Reason : Blood Pressure : */* mmHG Vent. Rate : 97 BPM Atrial Rate : 97 BPM P-R Int : 162 ms QRS Dur : 88 ms QT Int : 366 ms P-R-T Axes : 38 41 64 degrees QTcB Int : 464 ms Normal sinus rhythm Nonspecific ST abnormality Abnormal ECG Confirmed by CELI RENO, SHARMIN ([id number]), assignment desk editor RAY ESQUIVEL ([id number]) on 02/14/2025 10:23:00 AM Referred By: Confirmed By: SHARMIN ALATORRE MD
--- NOTE | 2025-02-10 15:28 | EKG12_ITS ---
Test Reason : Blood Pressure : */* mmHG Vent. Rate : 97 BPM Atrial Rate : 97 BPM P-R Int : 162 ms QRS Dur : 88 ms QT Int : 366 ms P-R-T Axes : 38 41 64 degrees QTcB Int : 464 ms Normal sinus rhythm Nonspecific ST abnormality Abnormal ECG Confirmed by CELI RENO, SHARMIN ([id number]), editor map RAY ESQUIVEL ([id number]) on 02/14/2025 10:23:00 AM Referred By: Confirmed By: SHARMIN ALATORRE MD
--- NOTE | 2025-02-10 15:45 | EX.ED.VIS.PS ---
HPI HPI - Psych History of Present Illness Chief Complaint: Mental Health Informant: patient Onset/Context/Timing Onset: Today Current Severity: Moderate Maximum Severity: Severe Narrative Narrative: 74-year-old female history of diabetes hypothyroidism. Reportedly was in [employer] today. Had a mental breakdown and bank personnel called the police who arrived. Said the patient was irate. They believe this be due to mental health issue and pink slipped and brought to the emergency department. Patient tells me that the hospitals computers have been hacked and that there charging her excessively from prior care. Prior similar symptoms: Yes Recent Illness/Hospitalization: Yes [facility] Medical History Alcohol use History of steroid therapy Fatty liver History of IBS History of edema Abrasion, left knee, initial encounter Contusion of left knee Contusion of right middle finger Strain of right middle finger Chest wall contusion Sternum pain Health care maintenance Flu vaccine need Dermatitis Muscular abdominal pain in right flank Sjogren's disease Breast cancer screening Malaise and fatigue Anemia Fatty liver disease, nonalcoholic Wears glasses Thyroid disease Rheumatoid arthritis Injury of head and neck Difficulty swallowing Gastric reflux Non-smoker Asthma CPAP (continuous positive airway pressure) dependence History of echocardiogram History of stress test Cardiology follow-up encounter History of colon polyps Obesity Abnormal laboratory test Constipation Unsteady gait Borderline type 2 diabetes mellitus Macromastia Screening for diabetes mellitus BMI greater than 40 Anxiety and depression Radiculopathy Hypokalemia COVID-19 virus detected (05/09/20) Chronic neck and back pain Difficulty balancing when standing Shoulder pain Adrenal insufficiency SOB (shortness of breath) Obesity Essential (primary) hypertension Airway polyps Adenomatous polyps FH: colon cancer in first degree relative <60 years old Sinusitis Otitis media Limb weakness Fatigue Acute bronchitis Hypopituitarism Dyspnea Osteopenia Osteoarthritis Basal cell carcinoma Vitamin D deficiency Arthritis Hypersomnia Cellulitis of right lower leg MGUS (monoclonal gammopathy of unknown significance) Hypothyroidism Home Medications ?Medication ?Instructions ?Recorded ?Last Taken ?Type folic acid 0.8 mg capsule 0.8 mg PO DAILY supplement 07/14/18 04/14/24 History hydroxychloroquine 200 mg tablet 200 mg PO BID ra 09/01/18 06/11/24 History (Plaquenil) Handicap Placard #1 ea 11/22/22 Unknown Rx ipratropium 0.5 mg-albuterol 3 mg 3 ml inhalation Q4H PRN PRN SOB 05/20/23 Unknown Rx (2.5 mg base)/3 mL nebulization &/OR WHEEZING #180 mL soln potassium chloride 10 mEq 10 meq PO BID 07/22/23 04/14/24 History capsule,extended release venlafaxine 37.5 mg tablet 37.5 mg PO QHS 04/13/24 04/14/24 History pantoprazole 40 mg tablet,delayed 40 mg PO DAILY acid 05/17/24 06/11/24 History release thyroid (pork) 15 mg tablet 15 mg PO MOTUWETHFR thyroid 05/17/24 Unknown History (Farwell Thyroid) thyroid (pork) 60 mg tablet 30 mg PO SUSA 06/08/24 Unknown History (Farwell Thyroid) amiloride 5 mg-hydrochlorothiazide 1 tab PO DAILY 07/21/24 Unknown History 50 mg tablet phentermine 37.5 mg capsule 37.5 mg PO QDAY #30 caps 01/25/25 Unknown Rx cyclosporine 0.05 % eye drops in a 1 drp ophthalmic (eye) Q12H 02/10/25 Unknown History dropperette magnesium oxide 400 mg PO DAILY 02/10/25 Unknown History Allergy/AdvReac Type Severity Reaction Status Date / Time phenytoin sodium (From Allergy Mild Rash Verified 02/10/25 14:45 Dilantin) phenytoin sodium extended Allergy Mild Rash Verified 02/10/25 14:45 (From Dilantin) Food Allergies: Uncoded Allergy Anaphylaxis Verified 02/10/25 14:45 ketorolac tromethamine (From Allergy Anaphylaxis Verified 02/10/25 14:45 Toradol) venom-wasp (wasps) Allergy Anaphylaxis Verified 02/10/25 14:45 morphine AdvReac Severe Other Verified 02/10/25 14:45 Family History Father Cancer father passed of lung CA at 55 Mother Dementia Osteoarthritis COPD (chronic obstructive pulmonary disease) Brother Myocardial infarction, Onset Age: 49 Aunt Multiple sclerosis Sister Colon cancer Breast cancer Aunt Celiac disease Surgical History Status post left foot surgery History of cardiac catheterization Hx of colonoscopy Hx of oral surgery History of tonsillectomy and adenoidectomy S/P knee surgery H/O dilation and curettage History of cataract surgery History of orthopedic surgery History of carpal tunnel release S/P bunionectomy S/P excision of Molina's neuroma History of carpal tunnel surgery History of cholecystectomy History of hysterectomy History of 2 sections Status post total right knee replacement Social History housing: house Smoking Status: Never smoker alcohol intake: current alcohol intake frequency: a few times a month Alcohol type: wine substance use type: does not use what type of physical activity do you participate in: walking, bicycling and swimming frequency: 3-4 times per week 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 Constitutional Constitutional ED: Denies fever(s) Eyes Eyes: Denies blurry vision ENT ENT ED: Denies ear pain Cardiovascular Cardiovascular: Denies chest pain Respiratory/Chest Respiratory/Chest: Denies cough or dyspnea Gastrointestinal Gastrointestinal: Denies abdominal pain Genitourinary Genitourinary ED: Denies dysuria Musculoskeletal Musculoskeletal: Denies arthralgias Integumentary Denies abscess Neurologic Neurologic: Denies headache(s) Psychiatric Psychiatric: Denies anxiety or depression Endocrine Endocrinology: Denies polydipsia or polyphagia Hematologic/Lymphatic Hematologic/Lymphatic: Denies easy bleeding, easy bruising or lymphadenopathy Allergic/Immunologic Allergic/Immunologic ED: Denies mouth swelling, tongue swelling or urticaria EXAM Physical Exam Narrative Exam Narrative: 74-year-old female vital signs are stable afebrile. Pulse ox 100% on room air no signs hypoxia. She does not look septic or toxic. She is emotionally upset and tearful. As I walk in the room she is in 4 point restraints. She is verbally aggressive towards nursing staff. H EENT exam pupils round react to light. Mytrex membranes. No trauma to her face or scalp. Neck nontender. No meningismus. No lymphadenopathy. Back nontender. Lungs clear to auscultation bilaterally. Heart regular rhythm rate about 100 no murmur. Chest wall ribs nontender. Abdomen soft nontender. Moving all 4 extremities. Normal php software engineer strength. Normal dorsi plantarflexion. Nontender no edema. No deformity. Neurologically she is awake and alert. She is emotionally upset at times tearful and at times agitated. But she does know she is in the hospital. She knows the year is 2024. She knows the president. She knows the month. Const Vital Signs: 02/10/25 14:46 02/10/25 15:28 02/10/25 15:35 Temperature 96.9 F L Temperature Source Temporal Pulse Rate 102 H 100 Respiratory Rate 24 H 18 Blood Pressure 139/91 H 155/78 H Blood Pressure Mean 107 103 Pulse Ox 100 98 100 Oxygen Delivery Method Room Air Room Air Room Air 02/10/25 16:00 02/10/25 17:00 02/10/25 18:00 Temperature Temperature Source Pulse Rate 97 91 90 Respiratory Rate 14 16 17 Blood Pressure 155/78 H 122/71 H 137/73 H Blood Pressure Mean 103 88 94 Pulse Ox 100 100 100 Oxygen Delivery Method Room Air Room Air Room Air Positive well nourished and well developed; Negative for cachectic, contractures or unkempt General Appearance ED: well developed and NAD; Negative for unkempt, cachectic, contractures or pallor Nutritional Appearance: Negative for cachectic HEENT Reports moist mucous membranes normocephalic and atraumatic; Negative for trauma or tenderness Eyes PERRL and EOMs intact bilaterally General Eye ED: Negative for pale conjunctiva or scleral icterus Neck no lymphadenopathy, supple and no JVD General: Negative for tenderness Resp normal respiratory effort and clear to auscultation bilaterally Auscultation: Negative for rales, rhonchi, wheezes or diminished lung sounds Cardio S1 normal heart sound, S2 normal heart sound and no murmurs Rate: regular rate Rhythm: regular rhythm GI non-tender, non-distended and no masses Auscultation: normoactive bowel sounds Palpation: soft; Negative for tender, guarding or mass Back/Spine no CVA tenderness General Back: Negative for CVA tenderness Cervical Spine: Negative for cervical spine tenderness Thoracic Spine / Upper Back: Negative for thoracic spinal tenderness Lumbar Spine / Lower Back: Negative for lumbar spinal tenderness Extremity normal to inspection General Extremety ED: Negative for edema or tenderness General Extremity: Negative for edema Neuro oriented x3, CN's II-XII intact bilaterally and no sensory deficits noted Sensorium / Orientation: alert, oriented to person, oriented to place and oriented to time; Negative for orientation impaired, confused or lethargic Motor Exam: strength 5/5 throughout Psych speech normal, activity/motor behavior normal, denies hallucinations, denies homicidal ideation and denies suicidal ideation; Negative for mental status grossly normal, thought process normal, cooperative or affect normal Appearance: grossly normal; Negative for unkempt Attitude: No calm, engaged, paranoid, guarded, agitated and aggressive Activity / Motor Behavior: appropriate eye contact Speech: excessive, rapid and loud Mood & Affect: depressed Thought Process: flight of ideas and illogical Thought Content: normal thought content Attention / Concentration: attention grossly intact Memory / Cognition: memory grossly intact Insight: limited Judgement: limited Skin General Skin Exam: Negative for jaundice or pallor Lesions: no lesions Rashes: no rashes MDM MDM MDM Narrative Medical decision making narrative: 74-year-old female appears to be having a acute psychosis. She is paranoid. She believes that people are after her and her finances. She believes the hospitals been hacked. She will go to ED mental health evaluation. She has had a recent CAT scan of her brain in the last several months that was negative. Repeat exam an hour after she was placed in restraints about patient is still agitated at times. My concern is for her, other patients and the staff social state in restraints currently. I also spoke to her family in the waiting room for [facility] power of patent prosecution attorney and I believe is her daughter also. And they state this has happened before. She had a recent mental health hospitalization for 7 days and they did not feel it did her any good. They also have concerned that when she was placed on Effexor 6 months to a year ago it seemed like she got worse instead of better.Our social services manager and I have spoken with both definitely feel the patient warrants admission on the psychiatric hospital and would benefit from this History & Record Review Discussion w/independent historian: Patient and Family Additional record(s) reviewed:: Prior inpatient record, Prior outpatient record, Prior ED visit and Prior labs Lab Data Attestation: I reviewed the patient's lab results. Lab results narrative: CBC white count 9 H&H 12 and 37. Platelets 329. Electrolytes show sodium 140. Gap 13. Normal BUN and creatinine. Glucose 107. Liver enzymes unremarkable other than alk phos 109. Alcohol negative. Labs: Laboratory Results - last 24 hr 02/10/25 15:55 WBC 9.4 RBC 3.95 L Hgb 12.7 Hct 37.7 MCV 95.4 MCH 32.2 H MCHC 33.7 RDW Std Deviation 45.2 H RDW Coeff of Rosamaria 12.9 Plt Count 329 MPV 9.2 Immature Gran % (Auto) 0.200 Neut % (Auto) 41.1 L Lymph % (Auto) 49.6 H [place] % (Auto) 6.5 Eos % (Auto) 2.1 Baso % (Auto) 0.5 Absolute Neuts (auto) 3.8 Absolute Lymphs (auto) 4.64 H Nucleated RBC % 0 Sodium 140 Potassium 3.3 Chloride 107 Carbon Dioxide 20.6 L Anion Gap 13 BUN 17 Creatinine 0.70 Est GFR (MDRD) Non-Af 91 BUN/Creatinine Ratio 23.9 H Glucose 107 H Calcium 9.6 Total Bilirubin 0.48 AST 26 ALT 17 Alkaline Phosphatase 109 H Total Protein 7.0 Albumin 4.4 Globulin 2.6 Albumin/Globulin Ratio 1.7 Ethyl Alcohol < 10.1 Discharge Plan Triage Chief Complaint: Mental Health ED Provider: Torres Koroma Dx/Rx/DC Orders Clinical Impression: Acute psychosis, Acute paranoia, History of diabetes mellitus Prescriptions: No Action folic acid 0.8 mg capsule 0.8 mg PO DAILY Patient Comments: One at morning/one at bedtime hydroxychloroquine [Plaquenil] 200 mg tablet 200 mg PO BID thyroid (pork) [Farwell Thyroid] 15 mg tablet 15 mg PO MOTUWETHFR Patient Comments: 30MG friday thru friday (DME) Handicap Placard See Rx Instructions .ROUTE .MEDSUPPLY Qty: 1 0RF Rx Instructions: As directed, length of time 3 years potassium chloride 10 mEq capsule, extended release 10 meq PO BID pantoprazole 40 mg tablet,delayed release (DR/EC) 40 mg PO DAILY Patient Comments: Patient states that she takes twice daily when she is in the hospital amiloride-hydrochlorothiazide 5-50 mg tablet 1 tab PO DAILY phentermine 37.5 mg capsule 37.5 mg PO QDAY Qty: 30 3RF Rx Instructions: must administer 30 minutes before or 1-2 hours after breakfast venlafaxine 37.5 mg tablet 37.5 mg PO QHS cyclosporine 0.05 % dropperette 1 drp ophthalmic (eye) Q12H Patient Comments: [NO ORIGINAL SIG] magnesium oxide 400 mg magnesium tablet 400 mg PO DAILY thyroid (pork) [Farwell Thyroid] 60 mg tablet 30 mg PO SUSA ipratropium-albuterol 0.5 mg-3 mg(2.5 mg base)/3 mL solution for nebulization 3 ml inhalation Q4H PRN PRN (Reason: SOB &/OR WHEEZING) Qty: 180 6RF Primary Care Provider: Gamaliel Whitehead Referrals: Gamaliel Whitehead MD [Primary Care Provider] - Print Language: Romanian Disposition Disposition: Psychiatric Hospital or Unit
--- NOTE | 2025-02-10 15:46 | ED.RN ---
pt presented to ED via Alex GONZALEZ, who had already pink slipped her. When asked to undress and take off sandals pt became hysterical stating that she had had a toe implant and needed an orthopedic shoe. Staff explained to patient that taking shoes was part of protocol and we could request an order for orthopedic shoe but this did not calm the patient. patient proceeded to pee on the floor in the corner of the exam room and then accused the staff of not getting her a pot to piss in. At this point the patient became more erratic and became physically violent, swinging at staff. More staff came in with security and violent restraints were applied to protect the patient and staff.
[2025-02-10 16:08] LABS: Hematocrit 37.7 % (37-47); Hemoglobin 12.7 g/dL (12.0-15.0); Immature Granulocytes Count 0.020 X10^3/uL (0.0-0.0); Mean Corp Hgb Conc 33.7 g/dL (32-36); Mean Corpuscular Volume 95.4 fL (81-99); Mean Platelet Vol. 9.2 fl (6.2-12.0); NRBC Flagged by Analyzer 0 % (0-5); Platelet Count 329 K/mm3 (150-450); RBC Distribution Width CV 12.9 % (11.6-14.6); RBC Distribution Width SD 45.2 fl (35.1-43.9); Red Blood Count 3.95 M/mm3 (4.2-5.4); White Blood Count 9.4 K/mm3 (4.4-11.0)
[2025-02-10 16:43] LABS: Alcohol, Blood (Medical)-Serum < 10.1 mg/dL (<=10.0)
[2025-02-10 16:44] LABS: AST(SGOT) 26 U/L (<=31); Alanine Aminotransfer ALT/SGPT 17 U/L (<=34); Albumin, Serum 4.4 g/dL (3.4-4.8); Alkaline Phosphatase 109 U/L (35-104); Anion Gap 13 (5-15); BUN 17 mg/dL (4-19); BUN/Creat Ratio 23.9 RATIO (10-20); Calcium,Total 9.6 mg/dL (7.6-11.0); Carbon Dioxide 20.6 mmol/L (21.0-32.0); Chloride 107 mmol/L (98-108); Globulin 2.6 g/dL (2.2-4.2); Glucose 107 mg/dL (70-99); Potassium 3.3 mmol/L (3.3-5.1)
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
--- NOTE | 2025-02-10 18:32 | ED.RN ---
Pt family alerted this RN that pt needed to pee. RN into room, pt states she needs her special shoes to walk to bathroom. this was verified by family in room. RN to grab shoes, pt then refused to put them on her feet. June Hooks RN stated that pt gets agitated when she does not have her shoes. pt then starts yelling at June Hooks RN calling her bitch multiple times. Pt refusing to walk to bathroom with grippy socks. June Hooks attempted to put shoes on pt but pt was angry and did not want them to be put on by that RN. Pt then started to walk to bathroom with no shoes or socks. educated that she needs appropriate footwear but pt continues to walk. pt started to urinate when walking to bathroom, this RN attempted to stop pt from walking in urine. Pt continues to walk, falls in urine in front of rm 6, Dr. Koroma notified of event. Pt C/O L knee pain. Refusing to let staff assist her with getting up from the floor. Multiple staff members to assist pt but pt still refuses to let anyone help her stand up. Pt finally agrees to let staff help her minimally with getting up from floor into wheelchair. Pt assessment complete, only having slight tenderness of L knee. Pt has chronic knee pain. pt placed back into bed. Pt called out and stated that she needed to pee again. This RN into room, pt urinating onto the floor. You bitch I told you I had to pee pt sat back down onto bed to prevent another fall. Pt cleaned with wet rags. Refusing to let staff clean her legs and feet. Floor dried and cleaned. Pt gown changed. This RN was able to help pt into a comfortable position and calmed pt down. Pt sitting in bed with rails up and pt in view. Instructed not to get up without calling out for someone to help her.
--- NOTE | 2025-02-10 18:36 | ED.RN ---
PATIENT WANTING TO AMBULATE TO THE BATHROOM. PATIENT STATED THAT SHE NEEDED HER ORTHOPEDIC SANDALS TO NURSE WOJCIECH Weiss RN. I ADVISE THE PATIENT THAT SHE WAS NOT ABLE TO HAVE HER SANDALS DUE TO BEHAVIORS AND THAT SHE COULD HAVE GRIPPER SOCKS ON. PATIENT BECAME INCREASINGLY AGITATED AND STATED I'LL PISS ON THE FLOOR. THE PATIENT THEN STARTED WALKING TO THE BATHROOM AND PEEING ON THE FLOOR AT THE SAME TIME. PATIENT YELLING AND SWINGING AT STAFF. PATIENT REFUSED STAFF HELP. VERBAL ORDER FROM DR. GYPSY VILLASENOR 20MG IM.
[2025-02-10] MEDS: Ziprasidone IM 20 MG/ML VIAL IM (18:40)
--- NOTE | 2025-02-10 20:34 | CM.ED ---
Social work SW called [facility] (ph: ) and inquired about bed availability for cady-psych. Beds available, so referral faxed (f: ). [facility] called ED corporate legal secretary back with accepting information. Patient and patient's daughter, Dalia, updated. No further needs at this time. Jayne Paniagua, HIDE OR SKIN BUFFER, MICROBIOLOGY LAB ANALYST
--- NOTE | 2025-02-10 20:34 | CM.ED ---
Social work SW called [facility] (ph: ) and inquired about bed availability for cady-psych. Beds available, so referral faxed (f: ). [facility] called ED assistant secretary back with accepting information. Patient and patient's daughter, Dalia, updated. No further needs at this time. Jayne Paniagua, DRAW OFF WORKER, BALANCE TRUING INSPECTOR
[2025-02-10 21:41] LABS: Barbiturate Urine NEGATIVE (< 200 ng/mL); Benzodiazepine Urine NEGATIVE (< 200 ng/mL); PCP Urine NEGATIVE (< 25 ng/mL); THC Urine NEGATIVE (< 50 ng/mL)
[2025-02-11 06:25] VITALS: BP 150/74; PULSE 80; RESP 20; O2SAT 100
[2025-02-11 07:27] VITALS: BP 137/101; PULSE 92; RESP 18; TEMP 37.1; O2SAT 100
== END 2025-02-11 10:06 ==
PROVIDERS: Emergency Provider Emergency Medicine; PCP Family Medicine; Visit Provider Emergency Medicine
DX: F23 Brief psychotic disorder (principal); F22 Delusional disorders; E11.9 Type 2 diabetes mellitus without complications; Z78.1 Physical restraint status; I10 Essential (primary) hypertension; E03.9 Hypothyroidism, unspecified; Z79.890 Hormone replacement therapy; Z79.899 Other long term (current) drug therapy
CPT/HCPCS: 80053; 80307; 82077; 85025; 93005; 99285; A4216

== ENCOUNTER → 2025-03-10 | Outpatient (CLI) | payer MEDICARE, OTHER, SELFPAY ==
[2025-03-10 18:38] LABS: AST(SGOT) 19 U/L (<=31); Alanine Aminotransfer ALT/SGPT 17 U/L (<=34); Albumin, Serum 4.4 g/dL (3.4-4.8); Alkaline Phosphatase 124 U/L (35-104); Anion Gap 13 (5-15); BUN 16 mg/dL (4-19); BUN/Creat Ratio 25.3 RATIO (10-20); Calcium,Total 9.6 mg/dL (7.6-11.0); Carbon Dioxide 23.6 mmol/L (21.0-32.0); Chloride 103 mmol/L (98-108); Cholesterol 168 mg/dL (<=200); Free T3 3.0 pg/mL (2.18-3.98); Globulin 2.6 g/dL (2.2-4.2); Glucose 98 mg/dL (70-99); Low Density Lipoprotein Calc. 74 mg/dL; Potassium 3.8 mmol/L (3.3-5.1); Triglycerides 111 mg/dL; Very Low Density Lipoprotein 22 mg/dL (5-40); cholesterol:hdl ratio screen 2.33
== END | disposition home or self-care (01) ==
LOC: MTLAB 16:44
PROVIDERS: PCP Family Medicine; Referring Provider Family Medicine; Visit Provider Internal Medicine Endocrinology, Diabetes & Metabolism
DX: E03.9 Hypothyroidism, unspecified (principal)
CPT/HCPCS: 36415; 80053; 80061; 84439; 84443; 84481

== ENCOUNTER 2025-04-13 10:28 | Outpatient (RCR) | payer MEDICARE, OTHER, SELFPAY ==
--- NOTE | 2025-05-19 14:53 | HP.PTEVAL ---
Patient's Visit Information Visit Information Visit Information: MITCHELL MENON is a 74 year old F referred to Physical Therapy by Dr. Scarlett Hunt MD with a diagnosis of BACK PAIN. Date of Evaluation: 04/13/25 Physical Therapist: Dahlia Lynn PT, Cert MDT Visit Plan Frequency: 2x /Week Duration: 4-6 Weeks Plan: GAIT TRAINING WITH LEAST ASSISTIVE DEVICE FOR SAFETY TAKING LE WEAKNESS (INCLUDING ANKLES) INTO CONSIDERATION. ASSESS FOR POSSIBLE NEED FOR AFO TO PREVENT TRIPPING. AQUATIC THERAPY FOR PAIN RELIEF, POSTURE CORRECTION/STRENGTHENING, INSTRUCTION IN APPROPRIATE BODY MECHANICS AND ACTIVITY MODIFICATIONS. DLS STARTING WITH A NEUTRAL SPINE PROGRESSING ROM TOLERATED. JUSTINO LE ROM, STRETCHING AND STRENGTHENING. HEP INSTRUCTION. Subjective Subjective: Work/Leisure: RETIRED Present symptoms: PATIENT DENIES BACK PAIN UNLESS IT IS STORMING CURRENTLY. R FOOT IS DRAGGING AND PATIENT HAS BEEN FALLING. FELL TWICE IN ONE WEEK 3 WKS AGO. PATIENT REPORT HER BACK GETS TIRED BUT IT DOES NOT HURT BECAUSE SHE HAS BEEN AVOIDING THINGS THAT MAKE IT HURT LIKE WALKING TOO FAR. Present since: CHRONIC - PATIENT REPORTS HER R ANKLE HAS BEEN DROPPED FOR AT LEAST 7 YEARS. REPORTS IT HAS BEEN IN HER MIND THAT SHE MIGHT NEED A BRACE. Pain Scale: N/A Is it getting better, worse or staying the same: GETTING WORSE IN TERMS OF WEAKNESS. Commenced as a result of: NO APPARENT REASON OTHER THAN ARTHRITIS AND WEAR AND TEAR. Worse: WALKING, LYING DOWN LONGER THAN 6 HOURS, PROLONGED STANDING, PROLONGED SITTING Better: TAKING A NAP, EXERCISING LIKE SIT UPS IN BED, TOUCHING THE FLOORS, BENDING KNEES, MARCHING, AND LOTS MORE. MOVING IN GENERAL. Disturbed sleep: YES Previous history/Previous treatment: NO BACK SURGERY. NO CHIROPRACTIC. MELISSA'S WITH LAST ONE BEING ABOUT 4-6 MONTHS AGO AND NEXT ONE IS PLANNED TOMORROW WITH DR. HUNT. PT IN THE PAST FOR BACK. HAS DONE POOL THERAPY IN THE PAST AND THAT IS PATIENTS PREFERENCE. ACCUPUNCTURE. MASSAGE. Treatment this episode: PAIN MEDICATION - NARCO, FLEXERIL, RA MEDICATION. REFERRED TO [facility] - AWAITING CALL. Coughing/sneezing/straining: POSITIVE FOR BACK PAIN Gait: PATIENT REPORTS H/O A LOT FALLS. BROKE L ARM AUG 2024 - FOOT GOT STUCK ON FLOOR. HAD A WALKER AT THE TIME. WAS GOING INTO THE BEDROOM. Bowel or Bladder Dysfunction: NO Accidents: DENIES OTHER THAN FALLS. Unexplained weight loss: NO Imaging: NO RECENT LUMBAR IMAGING. PMH/Recent major surgery: Alcohol use History of steroid therapy Fatty liver History of IBS History of edema Abrasion, left knee, initial encounter Contusion of left knee Contusion of right middle finger Strain of right middle finger Chest wall contusion Sternum pain Flu vaccine need Dermatitis Muscular abdominal pain in right flank Sjogren's disease Malaise and fatigue Anemia Fatty liver disease, nonalcoholic Wears glasses Thyroid disease Rheumatoid arthritis Injury of head and neck Difficulty swallowing Gastric reflux Non-smoker Asthma CPAP (continuous positive airway pressure) dependence History of colon polyps Obesity Unsteady gait Borderline type 2 diabetes mellitus Macromastia Anxiety and depression Radiculopathy Hypokalemia COVID-19 virus detected 05/09/20 Chronic neck and back pain Difficulty balancing when standing Shoulder pain Adrenal insufficiency SOB (shortness of breath) Essential (primary) hypertension Airway polyps Adenomatous polyps Sinusitis Otitis media Limb weakness Fatigue Hypopituitarism Dyspnea Osteopenia Osteoarthritis Basal cell carcinoma Vitamin D deficiency Arthritis Hypersomnia Cellulitis of right lower leg MGUS (monoclonal gammopathy of unknown significance) Hypothyroidism Status post left foot surgery History of cardiac catheterization Hx of colonoscopy Hx of oral surgery History of tonsillectomy and adenoidectomy S/P knee surgery H/O dilation and curettage History of cataract surgery History of orthopedic surgery History of carpal tunnel release S/P bunionectomy S/P excision of Molina's neuroma History of carpal tunnel surgery History of cholecystectomy History of hysterectomy History of 2 sections Status post total right knee replacement Objective Objective: Sitting/Standing Posture: POOR. SCOLIOTIC AND FLEXED WITH INCREASED KYPHOSIS, FH, RSH'S, DECREASED LORDOSIS AND R RIB HUMP. Active Correction of posture: PATIENT ABLE TO PARTIALLY CORRECT BUT NOT MAINTAIN. Other Observations: PATIENT UNABLE TO SLS ON EITHER LE WITHOUT UE ASSIST FOR MORE THAN A SECOND Sensory deficit: JUSTINO LE LIGHT TOUCH SENSATION GROSSLY INTACT. ROM deficit: JUSTINO LE HIP FLEXOR, HS AND CALF TIGHTNESS. Motor deficit: R HIP 3+/5, KNEE EXT 4-/5, KNEE FLEX 4-/5, ANKLE DORSI 3+/5, ANKLE PLANTARFLEX 3+/5. L HIP 4-/5, KNEE EXT 4/5, KNEE FLEX 4/5, ANKLE DORSI 4/5, ANKLE PLANTARFLEXION 4/5. Dural Signs: NEGATIVE JUSTINO LE'S. Lumbar mvmt loss: flex - NIL ext - PACO R SG - MOD L SG - MOD PATIENT REPORTS ROM TESTING FEELS GOOD. Core strength: POOR Palpation: PATIENT DENIES TENDERNESS WITH LUMBAR PALPATION TUG TIME: 27.65" WITH FWW. 30" STS TEST: 6 WITHOUT UE ASSIST. Balance/Special Test Scores Oswestry Low Back Score: 23 Goals Goal 1:: DECREASE C/O LOW BACK PAIN BY AT LEAST 25% TO EASE ADL'S. Goal Time Frame: 4-6 Weeks Goal 2:: PATIENT WILL COMPLETE 12 STANDS IN 30 SECS WITHOUT UE ASSIST TO DEMONSTRATE IMPROVED FUNCTIONAL STRENGTH Goal Time Frame: 4-6 Weeks Goal 3:: PATIENT WILL COMPLETE TUG IN < 20 SECS WITH FWW TO DEMONSTRATE IMPROVED GAIT STABILITY Goal Time Frame: 4-6 Weeks Goal 4:: PATIENT WILL BE INDEP WITH POOL AND HOME EX PROGRAMS FOR CONTINUED IMPROVEMENT ONCE FORMAL PHYSICAL THERAPY CONCLUDES. Goal Time Frame: 4-6 Weeks Rehabilitation Potential Physical Therapy Diagnosis: CORE AND LE STIFFNESS AND WEAKNESS WITH GAIT DIFFICULTY. FALL RISK. Rehabilitation Potential: Good Anticipated Interventions Patient/Client Instruction: Educate patient on: Condition, Plan of Care and Risk Factors For the Purpose of:: To improve self management Therapeutic Exercise to Include: Strength training, Endurance training, Balance training, Body mechanics, Postural training, Flexibilty training, Gait and locomotor training, Neuromotor development, "In an aquatic setting" and Dynamic Lumbar Stabilization For the Purpose of:: To decrease pain, To improve nutrient delivery to tissue, To improve muscle performance and motor function, To improve ability to perform ADL's, To increase tolerance to activity/condition/position, To improve ability of physical actions for home/community/work/leisure, To improve gait and locomotor functions, To increase flexibility/ROM, To improve balance, To improve safety with gait and To improve self management Text: Thank you for the opportunity to evaluate your patient. For Medicare and Medicare HMO plans, please review the plan of care and approve it. It will need to be FAXED BACK to us at [phone] for Medicare purposes. For Medicare only, by signing this I certify the plan of care. Please let me know if there are questions or concerns regarding this plan of care. Physician Signature: Date:
== END 2025-04-13 19:00 | disposition home or self-care (01) ==
LOC: PT 10:28
PROVIDERS: PCP Family Medicine; Referring Provider Anesthesiology Pain Medicine; Visit Provider Anesthesiology Pain Medicine
DX: M54.9 Dorsalgia, unspecified (principal)
CPT/HCPCS: 97162

== ENCOUNTER 2025-04-25 15:44 | Outpatient (RCR) | payer MEDICARE, OTHER, SELFPAY ==
[2025-04-25 16:54] LABS: Hematocrit 37.2 % (37-47); Hemoglobin 12.0 g/dL (12.0-15.0); Immature Granulocytes Count 0.030 X10^3/uL (0.0-0.0); Mean Corp Hgb Conc 32.3 g/dL (32-36); Mean Corpuscular Volume 96.4 fL (81-99); Mean Platelet Vol. 9.5 fl (6.2-12.0); NRBC Flagged by Analyzer 0 % (0-5); Platelet Count 364 K/mm3 (150-450); RBC Distribution Width CV 13.3 % (11.6-14.6); RBC Distribution Width SD 47.8 fl (35.1-43.9); Red Blood Count 3.86 M/mm3 (4.2-5.4); White Blood Count 9.9 K/mm3 (4.4-11.0)
[2025-04-25 17:35] LABS: AST(SGOT) 21 U/L (<=31); Alanine Aminotransfer ALT/SGPT 13 U/L (<=34); Albumin, Serum 4.3 g/dL (3.4-4.8); Alkaline Phosphatase 100 U/L (35-104); Anion Gap 11 (5-15); BUN 16 mg/dL (4-19); BUN/Creat Ratio 22.2 RATIO (10-20); Calcium,Total 9.3 mg/dL (7.6-11.0); Carbon Dioxide 25.1 mmol/L (21.0-32.0); Chloride 105 mmol/L (98-108); Globulin 2.7 g/dL (2.2-4.2); Glucose 89 mg/dL (70-99); Potassium 3.6 mmol/L (3.3-5.1)
== END 2025-05-10 18:00 | disposition home or self-care (01) ==
LOC: LAB 15:44
PROVIDERS: PCP Family Medicine; Referring Provider Internal Medicine Rheumatology; Visit Provider Internal Medicine Rheumatology
DX: M06.4 Inflammatory polyarthropathy (principal); Z79.899 Other long term (current) drug therapy; M79.7 Fibromyalgia; M17.0 Bilateral primary osteoarthritis of knee; M16.0 Bilateral primary osteoarthritis of hip
CPT/HCPCS: 36415; 80053; 85025

== ENCOUNTER → 2025-05-05 | Outpatient (CLI) | payer MEDICARE, OTHER, SELFPAY ==
--- OUTSIDE RECORDS SUMMARY | 2025-05-05 20:41 | XMS RPT_ITS | CCD ---
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 Ronnie Hull Primary Care Provider [phone] Dr. Kvng Nunez Attending Provider Dr. Kvng Nunez Referring Provider Dr. Ronnie Hull Referring Provider [phone] Dr. Vahe oNbles Attending Provider [phone] Dr. Ronnie Hull Attending Provider [phone] SUHA Mendoza Attending Provider Dr. Orlando Stein Attending Provider SUHA Mendoza Referring Provider Dr. Dontrell Torres Attending Provider Dr. Vahe Nobles Referring Provider [phone] Dr. Vahe Nobles Other Provider [phone] Dr. Ronnie Hull Primary Care Provider [phone]) Lakia ASSOCIATE SALES REPRESENTATIVE, ASSOCIATE 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 Rekha Attending Provider Dr. Ronnie Hull Primary Care Provider [phone] Dr. Vahe Nobles Attending Provider [phone] Dr. Ronnie Hull Referring Provider [phone] Dr. Ronnie Hull Attending Provider [phone] René ASSOCIATE SALES REPRESENTATIVE, ASSOCIATE 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 Bharati Muniz Attending Provider [phone] Dr. Ronnie Hull Primary Care Provider [phone]) Dr. Vahe Nolbes Attending Provider [phone] Lakia ASSOCIATE SALES REPRESENTATIVE, ASSOCIATE 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 Rekha Referring Provider [phone] Lakia ASSOCIATE SALES REPRESENTATIVE, ASSOCIATE 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 Rekha Other Provider Dr. Kvng Nunez Attending Provider [facility] [place] Referring Provider Unavailab Paxton, [place] Other Provider Unavailable Dr. Ronnie Hull Primary Care Provider [phone] Kurtis, Dr. Lenz Referring Provider [phone] Kurtis, Dr. Lenz Primary Care Provider 1(33 0) Kurtis, Dr. Lenz Referring Provider [phone] Kurtis, Dr. Lenz Primary Care Provider 1(33 0) Kurtis, Dr. Lenz Attending Provider [phone] Kurtis, Dr. Lenz Referring Provider [phone] Lakia ASSOCIATE SALES REPRESENTATIVE, ASSOCIATE 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 Rekha Referring Provider [phone] Lakia ASSOCIATE SALES REPRESENTATIVE, ASSOCIATE 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 Rekha Other Provider Dr. Kvng Nunez Attending Provider [facility] [place] Referring Provider Unavailab Paxton, [place] Other Provider Unavailable René ASSOCIATE SALES REPRESENTATIVE, ASSOCIATE 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 Bharati Muniz Attending Provider [phone] Friend, Dr. Cotter Attending Provider [phone] Dr. Ronnie Hull Primary Care Provider [phone]) Kurtis, Dr. Lenz Referring Provider [phone] Dr. Ronnie Hull Attending Provider [phone] Kurtis, Dr. Lenz Primary Care Provider [phone] 0) Kurtis, Dr. Lenz Referring Provider [phone] Dr. Kvng Nunez Attending Provider Dr. Ronnie Hull Attending Provider [phone] Unavailable Primary Care Provider Dr. Ronnie Ching Primary Care Provider 1(33 0) Dr. Ronnie Hull Referring Provider [phone] Dr. Dontrell Torres Attending Provider Dr. Ronnie Hull Attending Provider [phone] Dr. Vahe Nobles Attending Provider [phone] Dr. Kvng Nunez Attending Provider Dr. Kvng Nunez Referring Provider Enrique, Dr. Calderon Other Provider Dr. Ronnie Hull Primary Care Provider [phone]) Dr. Ronnie Hull Referring Provider [phone] Lakia ASSOCIATE SALES REPRESENTATIVE, ASSOCIATE 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 Rekha Attending Provider [phone] SUHA Mendoza Attending Provider Dr. Orlando Stein Attending Provider Dr. Ronnie Hull Attending Provider [phone] Dr. Ronnie Hull Primary Care Provider 1(33 0) Dr. Ronnie Hull Primary Care Provider 1(33 0) Dr. Ronnie Hull Referring Provider [phone] Dr. Vahe Nobles Attending Provider [phone]) Dr. Ronnie Hull Attending Provider [phone] Dr. Kvng Nunez Attending Provider Unavailable Primary Care Provider Dr. Ronnie Ching Primary Care Provider 1(33 0) Dr. Ronnie Hull Referring Provider [phone] Dr. Ronnie Hull Attending Provider [phone] Ronnie Hull MD Primary Care Provider [phone]) Dr. Ronnie Hull Primary Care Provider [phone] Dr. Ronnie Hull Referring Provider [phone] Dr. Kvng Nunez Attending Provider Dr. Ronnie Hull Attending Provider [phone] Dr. Ronnie Hull Primary Care Provider [phone] Dr. Ronnie Hull Referring Provider [phone] Dr. Dontrell Torres Attending Provider Allyn BORDEN, SUHA Muniz Attending Provider Kaveh RENO, [facility] Primary Care Provider OLEGHE, EFEWONGBE B Primary Care Unavailable INGRAM, ANGÉLICA S Referring Unavailable THURIN, ROGER Attending Unavailable OLEGHE, EFEWONGBE B Primary Care Unavailable THURIN, ROGER Referring Unavailable THURIN, ROGER Attending Unavailable OLEGHE, EFEWONGBE B Primary Care Unavailable SELF, SELF Referring Unavailable THURIN, ROGER Attending Unavailable [facility] PROVIDER, [facility] Referring Unavailable INGRAM, ANGÉLICA S Attending Unavailable INGRAM, ANGÉLICA S Referring Unavailable INGRAM, ANGÉLICA S Attending Unavailable INGRAM, ANGÉLICA S Referring Unavailable LINDER, XENA L Attending Unavailable OLEGHE, EFEWONGBE B Primary Care Unavailable LINDER, XENA L Attending Unavailable OLEGHE, EFEWONGBE B Primary Care Unavailable NEEMA, BARRETT Referring Unavailable OLEGHE, EFEWONGBE B Primary Care Unavailable INGRAM, ANGÉLICA S Referring Unavailable INGRAM, ANGÉLICA S Attending Unavailable Dr. Lisa Barraza DO Emergency Provider Care Physician, No Primary Primary Care Provider Unavailable Dr. Alexandra Lugo DO Admit Provider Unavail able Dr. Alexandra Lugo DO Other Provider Unavail able Dr. Shlomo Palmer DO Other Provider Buster RENO, Dr. Shlomo Lopez Attending Provider Dr. Valeria Smith MD Other Provider [phone] Sarah RENO, Dr. Valeria Tyson Attending Provider Buster RENO, Dr. Shlomo Lopez Other Provider Charley RENO, Dr. Alston Primary Care Provider Charley RENO, Dr. Alston Attending Provider Charley RENO, Dr. Alston Referring Provider Kaveh RENO, Dr. Addison Zamora Referring Provider [phone] Hugh DO, Dr. Cotter Attending Provider Rodney RENO, Dr. Conroy Attending Provider Rodney RENO, Dr. Conroy Referring Provider Sesar RENO, Dr. Neema Lerner Attending Provide r Sesar RENO, Dr. Neema Lerner Referring Provide r Yenny RENO, Dr. Avilez Attending Provider Yenny RENO, Dr. Avilez Emergency Provider Brian RENO, Dr. Jon Other Provider Sesar RENO, Dr. Neema Lerner Other Provider Nancy Ge Attending Provider Unavailable Brian RENO, Dr. Jon Attending Provider Charley RENO, Dr. Alston Primary Care Provider Charley RENO, Dr. Alston Referring Provider [phone] Nell Carmona Attending Provider Kimber Arce Attending Provider Unavailabl e Suyapa WAY-CNell Referring Provider Ga RENO, Dr. Macdonald Emergency Provider [phone] Charley RENO, Dr. Alston Primary Care Provider Kaveh RENO, Dr. Addison Zamora Referring Provider Misti RENO, Dr. Guido Attending Provider Ga RENO, Dr. Macdonald Attending Provider Charley RENO, Dr. Alston Primary Care Provider Sesar RENO, Dr. Neema Lerner Attending Provide r Sesar RENO, Dr. Neema Lerner Referring Provide r Misti RENO, Dr. Guido Attending Provider Rodney RENO, Dr. Conroy Attending Provider Rodney RENO, Dr. Conroy Referring Provider Kaveh RENO, [facility] Primary Care Provider [phone] Guicho DDS, Shiva Unavailable [phone] Saponaro DDS, Soha Cecy C Unavailable Charley, Gamaliel Primary Care Unavailable Kaveh, Addison Chi Referring Unavailable Nell Dale Attending Unavailable Whitehead, Gamaliel Primary Care Unavailable Raghunathan, Neema Na Attending Unavaila ble Raghunathan, Neema Na Referring Unavaila ble Whitehead, Gamaliel Primary Care Unavailable Raghunathan, Neema Na Attending Unavaila ble Whitehead, Gamaliel Primary Care Unavailable Vellanki, Marycarmen Referring Unavailable Railanki, Marycarmen Attending Unavailable Chetan Coleman Attending Unavailable Chetan Coleman Referring Unavailable Kaveh, Addison Chi Primary Care Unavailable Whitehead, Gamaliel Primary Care Unavailable Raghunathan, Neema Na Attending Unavaila ble Raghunathan, Neema Na Referring Unavaila ble Whitehead, Gamaliel Primary Care Unavailable Whitehead, Gamaliel Referring Unavailable Dontrell Torres Attending Unavailable Whitehead, Gamaliel Primary Care Unavailable Whitehead, Gamaliel Referring Unavailable Nancy Ge Attending Unavailable Ronnie Hull Referring Unavailable Kaveh, Addison Chi Primary Care Unavailable Vahe Nobles Attending Unavailable Vellanki, Marycarmen Referring Unavailable Vellanki, Marycarmen Attending Unavailable Kaveh, Addison Chi Primary Care Unavailable Whitehead, Gamaliel Primary Care Unavailable Vellanki, Marycarmen Referring Unavailable Vellanki, Marycarmen Attending Unavailable Whitehead, Gamaliel Primary Care Unavailable Torres Koroma Attending Unavailable Whitehead, Gamaliel Primary Care Unavailable Whitehead, Gamaliel Attending Unavailable Whitehead, Gamaliel Referring Unavailable Whitehead, Gamaliel Primary Care Unavailable Dontrell Torres Consulting Unavailable Raghav Ramon Attending Unavailable Raghunathan, Neema Na Consulting Unavaila ble Whitehead, Gamaliel Referring Unavailable Raghunathan, Neema Na Attending Unavaila ble Whitehead, Gamaliel Primary Care Unavailable Whitehead, Gamaliel Primary Care Unavailable Vellanki, Marycarmen Referring Unavailable Vellanki, Marycarmen Attending Unavailable Whitehead, Gamaliel Primary Care Unavailable Nell Dale Attending Unavailable Nell Dale Referring Unavailable Whitehead, Gamaliel Primary Care Unavailable Vellanki, Marycarmen Referring Unavailable Vellanki, Marycarmen Attending Unavailable Whitehead, Gamaliel Primary Care Unavailable Vellanki, Marycarmen Referring Unavailable Vellanki, Marycarmen Attending Unavailable Whitehead, Gamaliel Primary Care Unavailable Nell Dale Referring Unavailable Nell Dale Attending Unavailable Raghunathan, Neema Na Attending Unavaila ble Raghunathan, Neema Na Referring Unavaila ble Kaveh, Addison Chi Primary Care Unavailable Whitehead, Gamaliel Primary Care Unavailable Basali, Ayman Referring Unavailable Basali Ayman Attending Unavailable Kaveh, Addison Chi Primary Care Unavailable Rekha Dorman NP Attending Unavailable Kaveh, Addison Chi Referring Unavailable Alexandra Lugo Admitting Unavailable Alexandra Lugo Consulting Unavailable Care Physician, No Primary Primary Care Unava ilable Valeria Smith Attending Unavailable Shlomo Palmer Consulting Unavailable Valeria Smith Consulting Unavailable Alexandra Lugo Attending Unavailable Omega Portillo Consulting Unavailable Chetan Coleman Admitting Unavailable Kaveh, Addison Chi Primary Care Unavailable Koram, Mary Sharmin Attending Unavailable Paintsil, [place] Consulting Unavailable Erick Achintya Consulting Unavailable Valeria Smith Consulting Unavailable Alexandra Lugo Consulting Unavailable Alexandra Valadez Consulting Unavailable Guille Ramirez Consulting Unavailable Eli Hull Consulting Unavailable Dontrell Fabian Consulting Unavailable Oksana Burrell Consulting Unavailable Marcelo Stoner Consulting Unavailable Ronaldo, Mary Sharmin Consulting Unavailable Shlomo Goins Consulting Unavailable Raymond Richardson Consulting Unavailable Gamaliel Whitehead Consulting Unavailable Sarita Kelly Consulting Unavailable Edwar Restrepo Consulting Unavailable Alexandra Lugo Attending Unavailable Whitehead, Gamaliel Referring Unavailable FriendVahe Attending Unavailable Whitehead, Gamaliel Primary Care Unavailable Whitehead, Gamaliel Primary Care Unavailable Whitehead, Gamaliel Referring Unavailable Kimber Arce Attending Unavailable Shlomo Goins Attending Unavailable Shlomo Goins Consulting Unavailable Whitehead, Gamaliel Primary Care Unavailable Kaveh, Addison Chi Referring Unavailable Friend Vahe Attending Unavailable Gamaliel Whitehead Primary Care Unavailable Charley, Gamaliel Referring Unavailable Hugh, Vahe Attending Unavailable Gamaliel Whitehead Referring Unavailable Gamaliel Whitehead Primary Care Unavailable Kimber Arce Attending Unavailable Charley, Gamaliel Primary Care Unavailable Ragdominganathan, Neema Na Attending Unavaila ble Sesar, Neema Na Referring Unavaila Alexandra Ortiz Admitting Unavailable Alexandra Lugo Consulting Unavailable Care Physician, No Primary Primary Care Unava ilable Shlomo Goins Attending Unavailable Shlomo Palmer Consulting Unavailable Valeria Smith Consulting Unavailable Chetan Coleman Admitting Unavailable Kaveh, Addison Chi Primary Care Unavailable Omega Portillo Consulting Unavailable Mary Higgins Attending Unavailable Clark Massillon Consulting Unavailable Favian Suarez Consulting Unavailable Valeria Smith Consulting Unavailable Alexandra Lugo Consulting Unavailable Alexandra Valadez Consulting Unavailable Guille Ramirez Consulting Unavailable Eli Hull Consulting Unavailable Dontrell Fabian Consulting Unavailable Oksana Burrell Consulting Unavailable Marcelo Stoner Consulting Unavailable Etelvina Higginsa Sharmin Consulting Unavailable Shlomo Goins Consulting Unavailable Raymond Richardson Consulting Unavailable Gamaliel Whitehead Consulting Unavailable Sarita Kelly Consulting Unavailable Edwar Restrepo Consulting Unavailable Allergies Allergy Classification Reported Allergen(s) Allergy Type Date of Onset Reaction(s) Facility Anti-Epileptic Agents (2 sources) Phenytoin Drug Allergy 07-21-20 06 [facility] Opioid Agonists (1 source) Morphine Drug Allergy 05-26-20 23 [facility] Sulfamethoxazole / Trimethoprim (1 source) Sulfamethoxazole / Trimethoprim Drug Allergy 02-03-20 [facility] Unclassified (4 sources) Ketorolac Propensity to adverse reactions to drug 02-03-20 24 Anaphylaxis [facility] (7 sources) honeydew melon Propensity to adverse reactions 10-25-19 22 Food Allergy [facility] Work Phone: (20 sources) Ketorolac; Translations: [ketorolac tromethamine] Drug Allergy 03-30-20 07 Hives, Anaphylaxis [facility] (20 sources) Morphine Drug Allergy 10-25-19 22 Other [facility] (20 sources) Phenytoin; Translations: [phenytoin sodium] Drug Allergy 10-25-19 22 [facility] (20 sources) Phenytoin; Translations: [phenytoin sodium extended] Drug Allergy 07-21-20 06 [facility] (20 sources) Melon Allergy to substance 03-05-20 NEEDS FOLLOW-UP [facility] (14 sources) cow milk allergenic extract Drug Allergy 08-19-19 23 Diarrhea [facility] (8 sources) Phenytoin Drug Allergy 05-26-20 23 Rash [facility] (3 sources) Sulfamethoxazole / Trimethoprim Drug Allergy 02-03-20 24 [facility] (5 sources) Food Allergies: Uncoded; Translations: [Food Allergies: Uncoded] Allergy to substance 02-11-20 25 [facility] (4 sources) venom-wasp Allergy to substance 02-11-20 [facility] (1 source) Melon Drug allergy (disorder) 07-21-20 [facility] (1 source) Milk Drug allergy (disorder) 07-21-20 [facility] (1 source) Morphine Drug Allergy 02-11-20 [facility] (1 source) venom-wasp Drug allergy (disorder) 02-11-20 [facility] Medications Current Medications Medication Drug Class(es) Dates Sig (Normalized) Sig (Original) albuterol 0.833 mg/ml / ipratropium bromide 0.167 mg/ml inhalation solution (20 sources) Anticholinergic, beta2-Adrenergic Agonist Start: 12-16-2022 End: 05-20-2023 Start: 12-16-2022 End: 05-20-2023 take 1 mL by inhalation every four hours as needed Ipratropium-Albuterol Active 3 ML INHALATION EVERY 4 HOURS NEEDED 180 May 20, 2023 2:15pm Start: 06-21-2020 End: 01-23-2022 Start: 06-21-2020 End: 01-23-2022 take 1 mL by inhalation every six hours Ipratropium-Albuterol Discontinued 3 ML INHALATION EVERY 6 HOURS June 21, 2020 1:00am January 23, 2022 10:34am Start: 01-26-2018 End: 07-15-2018 Start: 01-26-2018 End: 07-15-2018 take 1 mL by inhalation every six hours Ipratropium-Albuterol Discontinued 3 ML INHALATION EVERY 6 HOURS 90 July 14, 2018 2:06pm July 15, 2018 10:23am Start: 11-25-2017 End: 11-30-2017 Start: 11-25-2017 End: 11-30-2017 take 1 mL by inhalation every six hours Ipratropium-Albuterol Discontinued 3 ML INHALATION EVERY 6 HOURS 20 5 November 25, 2017 12:00am November 30, 2017 12:09am aMILoride hydrochloride 5 mg / hydroCHLOROthiazide 50 mg oral tablet (20 sources) Potassium-sparing Diuretic, Thiazide Diuretic Start: 07-21-2024 Start: 03-05-2023 End: 09-24-2023 take 1 tablet by mouth once daily Amiloride-Hydrochlorothiazide Discontinu ed 1 TABLET PO DAILY 90 April 15, 2023 3:50pm June 09, 2023 2:06pm Start: 11-21-2022 End: 04-13-2024 Start: 11-21-2022 End: 03-05-2023 Amiloride-Hydrochlorothiazid e Discontinued 1 TABLET PO November 21, 2022 12:00am March 05, 2023 1:52pm Start: 02-23-2018 End: 02-19-2022 Start: 02-23-2018 End: 02-19-2022 take 0.5 tablet by mouth once daily Amiloride-Hydrochlorothiazide Discontinu ed 0.5 TABLET PO DAILY 60 April 25, 2021 1:11pm February 19, 2022 2:36pm aMILoride-hydroC HLOROthiazide 5-50 MG per tablet Active 120 actuat fluticasone propionate 0.11 mg/actuat metered dose inhaler (20 sources) Corticosteroid Start: 06-12-2021 take 1 puff(s) by inhalation twice daily Fluticasone Propionate (Flovent Hfa) 110 mcg/actuation HFA aerosol inhaler Active 1 PUFF INHALATION TWICE A DAY June 12, 2021 12:00am Start: 07-21-2006 take 1 puff(s) nasal route onc e FLONASE 50 MCG/ACTUATION NASAL SPRAY AEROSOL One puff per nostril before lying down for bed. 0 07/21/2006 Active fluticasone 50 M CG/ACT Suspension nasal spray 2 sprays by Nasal route daily. PRN Active Comment on above: One puff per nostril before lying down for bed. folic acid 0.8 mg oral capsu le (20 sources) Start: 07-14-2018 Start: 09-12-2016 End: 11-24-2017 folic acid 0.8 mg / vitamin b12 1 mg disintegrating oral tablet (9 sources) Vitamin B12 take 1 tablet by mouth once daily Cobalamin Combinations (Opurity B12/Folic Acid) 1000-200 MCG tablet Take 2,000 mcg by mouth daily. Active Handicap Placard (20 sources) Start: 11-22-2022 Handicap Placard Active 0 .ROUTE .MEDSUPPLY 1 November 21, 2022 11:00pm As directed, length of time 3 years Start: 11-22-[address] Active 0 .ROUTE .MEDSUPPLY 1 November 22, 2022 12:00am As directed, length of time 3 years Start: 09-11-[address] Active 0 .Route .MEDSUPPLY September 11, 2020 12:50pm As directed, length of time 3 years Start: 09-11-[address] Active 0 .Route .MEDSUPPLY September 11, 2020 12:00am As directed, length of time 3 years Start: 09-11-[address] Active 0 .Route .MEDSUPPLY September 11, 2020 1:00am As directed, length of time 3 years hydroxychloroquine sulfate 2 00 mg oral tablet (20 sources) Antimalarial, Antirheumatic Agent Start: 09-01-2018 Start: 11-24-2017 End: 02-23-2018 Start: 11-24-2017 End: 02-23-2018 take 1 tablet by mouth once daily Hydroxychloroquine (Plaquenil) 200 mg tablet Discontinued 200 MG PO daily November 24, 2017 12:00am February 23, 2018 2:50pm MAGNESIUM GLUCONATE (9 sources) MAGNESIUM GLUCON ATE PO Take by mouth. Active magnesium oxide 400 mg oral tablet (20 sources) Start: 02-10-2025 Start: 09-11-2021 End: 02-10-2025 modafinil 200 mg oral tablet (13 sources) Sympathomimetic-like Agent Start: 01-21-2024 End: 02-20-2024 take 1 tablet by mouth once daily Modafinil 200 MG tablet Indications: MARCELLA (obstructive sleep apnea) , Hypersomnia Take 1 tablet by mouth daily. 30 tablet 01/21/2024 Active Start: 07-21-2006 PROVIGIL 100 M G TAB Take one(1) tablet daily when working 0 07/21/2006 Active Comment on above: Take one(1) tablet d aily when working phentermine hydrochloride 37 .5 mg oral capsule (20 sources) Sympathomimetic Amine Anorectic Start: 11-02-2024 End: 01-25-2025 Start: 05-17-2024 End: 06-08-2024 Start: 11-23-2021 End: 02-19-2022 potassium chloride 10 meq ex tended release oral capsule (20 sources) Start: 07-22-2023 Start: 07-22-2023 take 20 mEq by mouth twice daily Potassium Chloride Active 20 MEQ PO TWICE A DAY July 22, 2023 1:00am Start: 03-13-2021 End: 05-20-2022 Start: 03-13-2021 End: 02-19-2022 take 20 mEq by mouth twice daily Potassium Chloride Discontinued 20 MEQ PO TWICE A DAY March 13, 2021 12:00am February 19, 2022 2:36pm Start: 06-01-2018 End: 09-11-2020 Start: 06-01-2018 End: 09-11-2020 take 20 mEq by mouth once daily Potassium Chloride Discontinued 20 MEQ PO daily 90 October 06, 2018 2:21pm November 16, 2018 8:35am Start: 03-24-2018 End: 06-01-2018 Start: 11-03-2015 End: 12-01-2015 Start: 11-03-2015 End: 12-01-2015 take 20 mEq by mouth once daily Potassium Chloride Discontinued 20 MEQ PO DAILY 60 November 03, 2015 12:00am December 01, 2015 10:21am sulfaSALAzine 500 mg delayed release oral tablet (20 sources) Aminosalicylate Start: 01-23-2024 [address] 01/23/2024 Active Start: 06-03-2023 End: 02-10-2025 SYRINGE-NEEDLE, DISP, 3 ML (B-D 3CC LUER-АННА SYR 26GX5/8) 26G X 5/8 3 ML Misc (5 sources) venlafaxine 37.5 mg oral tablet (11 sources) Serotonin and Norepinephrine Reuptake Inhibitor Start: 4 Zinc (20 sources) Start: 0 take 50 mg by mouth once daily Zinc Active 50 MG PO DAILY April 08, 2020 12:50pm Start: 04-08-2020 take 50 mg by mouth once daily Zinc Active 50 MG PO DAILY April 07, 2020 11:00pm Start: 04-08-2020 take 50 mg by mouth once daily Zinc Active 50 MG PO DAILY April 08, 2020 12:00am (20 sources) Start: 02-10-2025 Start: 06-11-2024 End: 08-07-2024 Start: 06-08-2024 Start: 06-08-2024 End: 08-07-2024 Start: 05-17-2024 Start: 03-11-2024 End: 04-13-2024 Start: 11-22-2022 Start: 05-01-2022 End: 10-07-2022 Start: 05-01-2022 End: 07-30-2022 Start: 01-02-2022 End: 05-01-2022 Start: 06-12-2021 End: 12-09-2024 Start: 06-12-2021 Start: 09-11-2020 End: 05-17-2024 Start: 04-08-2020 End: 04-13-2024 Start: 01-13-2020 End: 04-08-2020 Start: 11-06-2016 End: 11-24-2017 Completed/Discontinued Medications Medication Drug Class(es) Dates Sig (Normalized) Sig (Original) acetaminophen 500 mg oral tablet (20 sources) Start: 03-30-2018 End: 08-07-2018 Start: 05-21-2017 End: 09-10-2017 Start: 05-21-2017 End: 09-10-2017 take 1000 mg by mouth every eight hours Acetaminophen Discontinued 1000 MG PO EVERY 8 HOURS 90 May 21, 2017 12:00am September 10, 2017 2:13pm Start: 10-02-2016 End: 11-27-2016 Start: 10-02-2016 End: 11-27-2016 take 1000 mg by mouth every eight hours Acetaminophen Discontinued 1000 MG PO EVERY 8 HOURS 60 October 02, 2016 1:00am November 27, 2016 2:38pm acetaminophen 325 mg / HYDRO codone bitartrate 5 mg oral tablet (20 sources) Opioid Agonist Start: 08-12-2024 End: 02-10-2025 Start: 11-22-2022 End: 07-21-2024 Start: 11-22-2022 Hydrocodone-Ac etaminophen Active 1 TABLET PO November 22, 2022 12:00am Start: 11-03-2015 End: 12-28-2015 Start: 11-03-2015 End: 12-28-2015 take 1 tablet by mouth every four hours as needed Hydrocodone-Acetaminophen Discontinued 1 TABLET PO EVERY 4 HOURS NEEDED 40 November 03, 2015 12:00am December 28, 2015 9:11am acetaminophen 325 mg / oxyCO DONE hydrochloride 5 mg oral tablet (20 sources) Opioid Agonist Start: 06-11-2024 End: 08-12-2024 Start: 03-30-2018 End: 06-01-2018 Start: 03-30-2018 End: 06-01-2018 Oxycodone-Acetaminophen Disc ontinued PO 40 5 March 30, 2018 12:00am June 01, 2018 3:15pm [id number] 200 actuat albuter ol 0.09 mg/actuat metered dose inhaler (20 sources) beta2-Adrenergic Agonist Start: 01-26-2018 End: 08-07-2018 Start: 01-26-2018 End: 08-07-2018 take 1 puff(s) by inhalation every four hours Albuterol Sulfate Discontinued 2 PUFF INHALATION Q4H January 26, 2018 12:00am August 07, 2018 10:57am Start: 09-12-2016 End: 11-27-2016 Start: 09-12-2016 End: 11-27-2016 take 1 puff(s) by inhalation every six hours as needed Albuterol Sulfate (Ventolin Hfa) 1 INHALER inhaler Discontinued 2 PUFF INHALATION EVERY 6 HOURS NEEDED September 12, 2016 1:00am November 27, 2016 2:40pm Start: 07-21-2006 take 1 puff(s) by in halation once daily as needed for wheezing ALBUTEROL 90 MCG/ACTUATION AEROSOL INHALER Inhale one(1) - two(2) puffs four(4) times a day as needed for wheezing and shortness of breath. 0 07/21/2006 Active Comment on above: Inhale one(1) - two( 2) puffs four(4) times a day as needed for wheezing and shortness of breath. amitriptyline hydrochloride 10 mg oral tablet (20 sources) Tricyclic Antidepressant Start: 06-12-20 End: 06-12-20 take 100 mg by mouth at bedtime Amitriptyline Discontinued 100 MG PO AT BEDTIME June 12, 2020 3:06pm June 12, 2021 10:57am Dr Gomez Start: 01-13-2020 End: 06-12-2021 Start: 01-13-2020 End: 06-12-2020 take 10 mg by mouth at bedtime Amitriptyline Discontin ued 10 MG PO AT BEDTIME January 13, 2020 12:00am June 12, 2020 3:07pm Start: 11-24-2017 End: 07-14-2018 take 10 mg by mouth at bedtime Amitriptyline Discontin ued 10 MG PO AT BEDTIME November 24, 2017 12:00am July 14, 2018 1:54pm Start: 02-23-2016 End: 07-14-2018 Start: 02-23-2016 End: 11-24-2017 take 25 mg by mouth at bedtime Amitriptyline Discontin ued 25 MG PO AT BEDTIME February 23, 2016 12:00am November 24, 2017 1:44pm aspirin 81 mg delayed release oral tablet (20 sources) Platelet Aggregation Inhibitor, Nonsteroidal Anti-inflammatory Drug Start: 06-11-2024 End: 07-21-2024 Start: 01-12-2020 End: 04-08-2020 Start: 07-23-2017 End: 11-24-2017 Start: 05-21-2017 End: 07-23-2017 azithromycin 250 mg oral tab let (20 sources) Macrolide Antimicrobial Start: 12-10-2019 End: 12-22-2019 Start: 02-03-2018 End: 02-23-2018 Start: 11-24-2017 End: 11-29-2017 Start: 11-24-2017 End: 11-29-2017 Azithromycin Discontinued 25 0 MG PO daily 6 November 24, 2017 12:00am November 29, 2017 12:08am Take 2 tabs once on day one then take one tablet once daily for the next 4 days. Budesonide (20 sources) Corticosteroid Start: 06-21-2020 End: 06-12-2021 take 180 ug by inhalation twice daily Budesonide (Pulmicort Flexhaler) 180 mcg/actuation aerosol powdr breath activated Discontinued 2 INH INHALATION TWICE A DAY 1 June 21, 2020 12:09pm June 12, 2021 11:00am Start: 06-21-2020 End: 06-12-2021 Start: 06-21-2020 End: 06-12-2021 take 180 ug by inhalation twice daily Budesonide (Pulmicort Flexhaler) 180 mcg/actuation aerosol powdr breath activated Discontinued 2 INH INHALATION TWICE A DAY 1 June 21, 2020 12:00am June 12, 2021 10:00am Start: 06-21-2020 End: 06-12-2021 take 180 ug by inhalation twice daily Budesonide (Pulmicort Flexhaler) 180 mcg/actuation aerosol powdr breath activated Discontinued 2 INH INHALATION TWICE A DAY 1 June 21, 2020 1:00am June 12, 2021 11:00am Start: 01-26-2018 End: 12-10-2019 Start: 01-26-2018 End: 12-10-2019 take 90 ug by inhalation twice daily Budesonide (Pulmicort Flexhaler) 90 mcg/actuation aerosol powdr breath activated Discontinued 2 INH INHALATION TWICE A DAY January 27, 2019 11:20am December 10, 2019 11:17am Start: 07-21-2006 PULMICORT TURB UHALER 200 MCG/INHALATION BREATH ACTIVATED as necessary 0 07/21/2006 Active Comment on above: as necessary 120 actuat budesonide 0.16 mg/actuat / formoterol fumarate 0.0045 mg/actuat metered dose inhaler (20 sources) Corticosteroid, beta2-Adrenergic Agonist Start: 12-10-2019 End: 06-21-2020 Start: 12-10-2019 End: 06-21-2020 take 1 puff(s) by mouth twice daily Budesonide-Formoterol Discontinued 2 PUFF INHALATION TWICE A DAY January 13, 2020 7:13pm June 21, 2020 12:09pm administer with spacer, rinse mouth after each use 168 hr buprenorphine 0.005 m g/hr transdermal system (20 sources) Partial Opioid Agonist Start: 10-21-2024 End: 12-09-2024 Start: 06-12-2021 End: 05-01-2022 Start: 06-12-2021 End: 05-01-2022 apply 1 dose transdermal route every week Buprenorphine Discontinued 2 PATCH TD EVERY WEEK June 12, 2021 12:00am May 01, 2022 1:13pm Start: 06-21-2020 End: 06-21-2020 Start: 06-21-2020 End: 06-21-2020 apply 1 dose transdermal route every week Buprenorphine Discontinued 1 PATCH TD EVERY WEEK June 21, 2020 1:00am June 21, 2020 11:50am Start: 04-08-2020 End: 07-04-2020 Start: 04-08-2020 End: 07-04-2020 Buprenorphine Discontinued 7 .5 MCG TOPICAL April 08, 2020 12:52pm July 04, 2020 11:43am Start: 01-13-2020 End: 04-08-2020 Start: 01-13-2020 End: 04-08-2020 Buprenorphine Discontinued 7 .5 MCG TP January 13, 2020 12:00am April 08, 2020 12:53pm Start: 10-11-2019 End: 12-22-2019 Start: 10-11-2019 End: 12-22-2019 Buprenorphine Discontinued 5 EACH TD EVERY WEEK October 11, 2019 1:00am December 22, 2019 1:28pm 24 hr buPROPion hydrochlorid e 300 mg extended release oral tablet (20 sources) Aminoketone Start: 12-10-2023 End: 04-13-2024 Start: 06-09-2023 End: 12-10-2023 buPROPion 150 MG tablet XL 09/22/2023 Active Start: 06-12-2021 End: 11-21-2022 Start: 02-15-2019 End: 12-11-2020 Start: 08-07-2018 End: 02-15-2019 Start: 11-02-2015 End: 12-28-2015 take 1 tablet by yonatan twice daily buPROPion SR (WELLBUTRIN SR) 150 mg 12 hr tablet Take 150 mg by mouth twice daily. 0 Active Comment on above: Take 150 mg by mouth twice daily. calcium ascorbate 500 mg ora l tablet (20 sources) Start: 04-08-2020 End: 04-13-2024 calcium carbonate 1250 mg / cholecalciferol 600 unt oral tablet (14 sources) Vitamin D Start: 06-11-2024 End: 12-09-2024 Start: 07-21-2006 CALCIUM + D 60 0 MG-200 UNIT TAB Take one(1) tablet twice daily. 0 07/21/2006 Active Comment on above: Take one(1) tablet t wice daily. cefdinir 300 mg oral capsule (20 sources) Cephalosporin Antibacterial Start: 02-16-2021 End: 02-21-2021 Start: 11-03-2015 End: 12-01-2015 cefuroxime 250 mg oral table t (20 sources) Cephalosporin Antibacterial Start: 11-02-2015 End: 11-03-2015 celecoxib 200 mg oral capsul e (20 sources) Nonsteroidal Anti-inflammatory Drug Start: 07-22-2023 End: 04-13-2024 Start: 01-13-2020 End: 04-08-2020 Start: 07-23-2017 End: 10-06-2018 Start: 02-23-2016 End: 10-02-2016 Start: 11-02-2015 End: 12-28-2015 cephalexin 500 mg oral table t (20 sources) Cephalosporin Antibacterial Start: 02-22-2022 End: 03-14-2022 cholecalciferol 1.25 mg oral capsule (20 sources) Vitamin D Start: 12-19-2020 End: 08-07-2024 Start: 12-19-2020 End: 03-05-2023 take 1250 ug by mouth every week Cholecalciferol (Vitamin D3) Discontinued 1250 MCG PO EVERY WEEK December 19, 2020 12:00am March 05, 2023 1:52pm This is prescribed by Dr. Kaba Start: 09-12-2020 End: 01-23-2022 Start: 01-13-2020 End: 04-08-2020 Start: 01-13-2020 End: 04-08-2020 take 2000 [IU] by mouth once daily Cholecalciferol (Vitamin D3) Discontinued 2000 UNIT PO DAILY January 13, 2020 12:00am April 08, 2020 12:53pm Start: 11-02-2015 End: 07-23-2017 Comment on above: Take by mouth once d aily. ciprofloxacin 250 mg oral ta blet (20 sources) Quinolone Antimicrobial Start: 03-14-2022 End: 04-02-2022 Start: 09-24-2016 End: 11-27-2016 cyclobenzaprine hydrochlorid e 10 mg oral tablet (20 sources) Muscle Relaxant Start: 05-21-2017 End: 07-21-2024 Start: 12-28-2015 End: 10-02-2016 Start: 12-28-2015 End: 10-02-2016 take 5 mg by mouth three times daily Cyclobenzaprine Discontinued 5 MG PO THREE TIMES A DAY December 28, 2015 12:00am October 02, 2016 11:04am docusate sodium 100 mg oral capsule (11 sources) Start: 06-11-2024 End: 07-21-2024 doxycycline hyclate 100 mg o ral capsule (11 sources) Tetracycline-class Drug Start: 06-11-2024 End: 07-21-2024 0.5 ml dulaglutide 3 mg/ml auto-injector (20 sources) GLP-1 Receptor Agonist Start: 02-23-2018 End: 08-07-2018 Start: 02-23-2018 End: 08-07-2018 Dulaglutide (Trulicity) 1.5 mg/0.5 mL pen injector Discontinued 1.5 MG SC EVERY WEEK February 23, 2018 12:00am August 07, 2018 10:58am Start: 09-12-2016 End: 11-24-2017 Start: 09-12-2016 End: 11-24-2017 inject 1.5 mg by subcutaneous injection once Dulaglutide Discontinued 1.5 MG SQ MO September 12, 2016 1:00am November 24, 2017 1:44pm ergocalciferol 1.25 mg oral capsule (20 sources) Provitamin D2 Compound Start: 11-02-2015 End: 04-08-2020 Start: 11-02-2015 End: 04-08-2020 Ergocalciferol (Vitamin D2) Discontinued 90318 UNIT PO ROSAS November 02, 2015 12:00am April 08, 2020 12:53pm take 1 capsule by mo uth every other week Ergocalciferol 1.25 MG (12026 UT) capsule Take 1 capsule by mouth once a week. Taking 1.25mg Takes once every other week Active take 1 capsule by mo uth every week Ergocalciferol 1.25 MG (51995 UT) capsule Take 1 capsule by mouth once a week. Taking 1.25mg Active Ergocalciferol, Vitamin D2, 50,000 unit Tab Take by mouth. 0 Active Comment on above: Take by mouth. ezetimibe 10 mg oral tablet (3 sources) Dietary Cholesterol Absorption Inhibitor Start: 07-21-2006 ZETIA 10 MG TAB Take one(1) tablet daily. 0 07/21/2006 Active Comment on above: Take one(1) tablet d aily. ferrous sulfate 325 mg oral tablet (20 sources) Start: 02-19-2022 End: 06-08-2024 Start: 02-19-2022 End: 11-21-2022 take 325 mg by mouth once daily Ferrous Sulfate Discontinued 325 MG PO DAILY February 19, 2022 12:00am November 21, 2022 11:41am fexofenadine hydrochloride 6 mg/ml oral suspension (20 sources) Histamine-1 Receptor Antagonist Start: 06-21-2020 End: 05-01-2022 Start: 01-26-2018 End: 08-07-2018 Fluad Quad (65yr up)(PF) 60 mcg (15 mcg x 4)/0.5mL IM syringe (flu vac (3 sources) Start: 07-09-2021 End: 07-09-2021 Fluad Quad (65yr up)(PF) 60 mcg (15 mcg x 4)/0.5mL IM syringe (flu vac Discontinued 60 MCG IM ONCE 0.5 July 09, 2021 11:39am July 09, 2021 12:18pm furosemide 40 mg oral tablet (20 sources) Loop Diuretic Start: 04-13-2024 End: 05-17-2024 Start: 11-03-2015 End: 12-01-2015 gabapentin 300 mg oral capsu le (20 sources) Anti-epileptic Agent Start: 11-21-2020 End: 12-21-2020 Start: 11-21-2020 End: 12-21-2020 Gabapentin Discontinued 1 CA P PO THREE TIMES A DAY November 21, 2020 12:00am December 21, 2020 12:01am on first day, take 1 cap po BID Start: 12-01-2015 End: 12-28-2015 12 hr guaiFENesin 1200 mg ex tended release oral tablet (20 sources) Start: 03-25-2022 End: 11-22-2022 hydroCHLOROthiazide 25 mg or al tablet (20 sources) Thiazide Diuretic Start: 08-19-2022 End: 11-21-2022 hydroCHLOROthiazide 25 mg / triamterene 37.5 mg oral capsule (20 sources) Potassium-sparing Diuretic, Thiazide Diuretic Start: 07-23-2017 End: 11-24-2017 Start: 07-23-2017 End: 11-24-2017 take 1 capsule by mouth once daily in the morning Triamterene-Hydrochlorothiazid Discontin ued 1 CAP PO EVERY MORNING September 10, 2017 2:15pm November 24, 2017 1:43pm Start: 03-30-2007 take 1 tablet by yonatan th once daily Triamterene-Hydrochlorothiazid (DYAZIDE) 37.5-25 mg ORAL Cap Take one(1) tablet daily. 0 03/30/2007 Active Comment on above: Take one(1) tablet d aily. ibuprofen 200 mg oral tablet (20 sources) Nonsteroidal Anti-inflammatory Drug Start: 03-30-2018 End: 08-07-2018 ipratropium bromide 0.021 mg/actuat metered dose nasal spray (20 sources) Anticholinergic Start: 06-21-2020 End: 05-01-2022 Start: 06-21-2020 End: 05-01-2022 take 1 spray(s) nasal route twice daily Ipratropium Broussard Discontinued 2 SPRAY INTRANASAL TWICE A DAY June 21, 2020 1:00am May 01, 2022 1:14pm administer into each nostril leucovorin 25 mg oral tablet (20 sources) Folate Analog Start: 07-23-2017 End: 07-14-2018 Start: 07-23-2017 End: 07-14-2018 take 1 tablet by mouth once leucovorin calcium 25 mg t ablet Discontinued 25 MG PO ONCE July 23, 2017 1:00am July 14, 2018 1:57pm levothyroxine sodium 0.025 m g oral tablet (20 sources) l-Thyroxine Start: 02-21-2020 End: 04-08-2020 Start: 05-01-2016 End: 08-24-2019 Lidocaine (20 sources) Antiarrhythmic, Amide Local Anesthetic Start: 01-02-2022 End: 05-01-2022 Lidocaine Hcl (Lidocaine Viscous) 2 % solution Discontinued 1 APPLIC MUCOUS MEM TWICE A DAY January 01, 2022 11:00pm May 01, 2022 12:14pm 5mL combined with 5mL carafate two tmes a day Start: 01-02-2022 End: 05-01-2022 Lidocaine Hcl (Lidocaine Vis cous) 2 % solution Discontinued 1 APPLIC MUCOUS MEM TWICE A DAY January 02, 2022 12:00am May 01, 2022 1:14pm 5mL combined with 5mL carafate two tmes a day Start: 01-02-2022 Lidocaine Hcl (Lidocaine Viscous) 2 % solution Active 1 APPLIC MUCOUS MEM TWICE A DAY January 02, 2022 12:00am 5mL combined with 5mL carafate two tmes a day take 1 mg intravenously once lid ocaine 20 mg/ml Solution 1 mg/kg by Intravenous route once. In neck back and shoulders 01/21/2024 Discontinued Magnesium (20 sources) Start: 11-06-2016 End: 11-24-2017 take 1 tablet by mouth once daily Magnesium Discontinued 1 TABLET PO DAILY November 06, 2016 1:56pm November 24, 2017 1:44pm Start: 11-06-2016 End: 11-24-2017 take 1 tablet by mouth once daily Magnesium Discontinued 1 TABLET PO DAILY November 05, 2016 11:00pm November 24, 2017 12:44pm Start: 11-06-2016 End: 11-24-2017 take 1 tablet by mouth once daily Magnesium Discontinued 1 TABLET PO DAILY November 06, 2016 12:00am November 24, 2017 1:44pm methotrexate 25 mg/ml inject able solution (20 sources) Folate Analog Metabolic Inhibitor Start: 09-25-2020 End: 02-10-2025 Start: 09-25-2020 Methotrexate S odium Active 25 MG SC EVERY WEEK September 25, 2020 1:00am Start: 12-22-2019 End: 04-08-2020 Start: 12-22-2019 End: 04-08-2020 Methotrexate (Pf) Discontinu ed 0.5 MG SC December 22, 2019 12:00am April 08, 2020 12:53pm Start: 07-14-2018 End: 12-22-2019 Methotrexate Sodium Disconti nued 0.5 MG PO WE July 14, 2018 1:55pm December 22, 2019 1:26pm Start: 06-01-2018 End: 07-14-2018 Methotrexate Sodium Disconti nued 17.5 MG PO WE June 01, 2018 3:13pm July 14, 2018 1:56pm Start: 01-26-2018 End: 06-01-2018 Methotrexate Sodium Disconti nued 15 MG PO WE January 26, 2018 1:57pm June 01, 2018 3:16pm Start: 09-12-2016 End: 12-22-2019 Start: 09-12-2016 End: 01-26-2018 Methotrexate Sodium Disconti nued 12.5 MG PO WE September 12, 2016 1:00am January 26, 2018 1:59pm METHOTREXATE IJ Inject 0.5 mL as directed once a week. Active Methylprednisolone (20 sources) Corticosteroid Start: 11-21-2020 End: 12-11-2020 Start: 11-21-2020 End: 12-11-2020 Methylprednisolone Discontin ued 4 MG PO DIRECTED November 21, 2020 12:00am December 11, 2020 11:10am montelukast 10 mg oral tablet (20 sources) Leukotriene Receptor Antagonist Start: 03-30-2007 End: 04-13-2024 Comment on above: Take one(1) tablet d aily at bedtime. Multivitamin With Minerals (20 sources) Start: 01-13-2020 End: 04-08-2020 take 1 tablet by mouth once daily Multivitamin With Minerals Discontinued 1 TABLET PO DAILY January 13, 2020 7:00pm April 08, 2020 12:53pm Start: 01-13-2020 End: 04-08-2020 take 1 tablet by mouth once daily Multivitamin With Minerals Discontinued 1 TABLET PO DAILY January 12, 2020 11:00pm April 08, 2020 11:53am Start: 01-13-2020 End: 04-08-2020 take 1 tablet by mouth once daily Multivitamin With Minerals Discontinued 1 TABLET PO DAILY January 13, 2020 12:00am April 08, 2020 12:53pm nystatin [id number] unt/ml oral suspension (20 sources) Polyene Antifungal Start: 01-02-2022 End: 05-01-2022 Start: 01-02-2022 End: 05-01-2022 take 10 mL by mouth once daily Nystatin Discontinued 1 0 ML PO DAILY 60 January 02, 2022 12:00am May 01, 2022 1:14pm swish and swallow 10 mL once a day omeprazole 20 mg delayed rel ease oral capsule (20 sources) Proton Pump Inhibitor Start: 02-15-2019 End: 05-18-2019 Start: 11-16-2018 End: 02-15-2019 Start: 11-06-2016 End: 11-24-2017 oxyCODONE hydrochloride 5 mg oral tablet (20 sources) Opioid Agonist Start: 05-21-2017 End: 09-10-2017 Start: 05-21-2017 End: 09-10-2017 Start: 10-02-2016 End: 11-27-2016 Start: 10-02-2016 End: 11-27-2016 pantoprazole 40 mg delayed release oral tablet (20 sources) Proton Pump Inhibitor Start: 01-02-2021 End: 03-13-2021 take 40 mg by mouth once daily Pantoprazole Discontinued 40 MG PO DAILY 180 January 02, 2021 12:00am March 13, 2021 10:18am Start: 01-02-2021 End: 05-17-2024 Start: 05-18-2019 End: 04-08-2020 polyethylene glycol 3350 170 00 mg powder for oral solution (20 sources) Osmotic Laxative Start: 05-01-2022 End: 07-30-2022 polyethylene glycol 3350 236 000 mg / potassium chloride 2970 mg / sodium bicarbonate 6740 mg / sodium chloride 5860 mg / sodium sulfate 30780 mg powder for oral solution (11 sources) Osmotic Laxative Start: 04-01-2024 End: 05-17-2024 predniSONE 5 mg oral tablet (20 sources) Start: 02-01-2022 End: 11-21-2022 Start: 02-01-2022 End: 02-10-2025 Start: 12-10-2019 End: 12-22-2019 Start: 01-26-2018 End: 02-23-2018 take 2.5 mg by mouth twice daily Prednisone Discontinued 2.5 MG PO TWICE A DAY January 26, 2018 1:57pm February 23, 2018 2:50pm Start: 05-01-2016 End: 01-26-2018 take 5 mg by mouth once daily Prednisone Discontinued 5 MG PO DAILY September 10, 2017 2:15pm January 26, 2018 1:59pm Start: 05-01-2016 End: 02-23-2018 promethazine hydrochloride 12.5 mg oral tablet (20 sources) Phenothiazine Start: 10-08-2019 End: 10-15-2019 ramelteon 8 mg oral tablet (3 sources) Melatonin Receptor Agonist take 1 tablet by mouth once daily at bedtime ramelteon (ROZEREM) 8 mg tablet Take 8 mg by mouth daily at bedtime. 0 Active Comment on above: Take 8 mg by mouth d aily at bedtime. rivaroxaban 10 mg oral tablet (20 sources) Factor Xa Inhibitor Start: 10-02-2016 End: 11-27-2016 0.25 mg, 0.5 mg dose 1.5 ml semaglutide 1.34 mg/ml pen injector (20 sources) Start: 03-05-2023 End: 09-10-2023 Semaglutide (Ozempic) 0.25 mg or 0.5 mg(2 mg/1.5 mL) pen injector Discontinued 0.25 MG SC EVERY WEEK March 05, 2023 1:51pm September 10, 2023 3:14pm for 4 doses Start: 11-22-2022 End: 03-05-2023 Semaglutide (Ozempic) 0.25 m g or 0.5 mg(2 mg/1.5 mL) pen injector Discontinued 0.5 MG SC EVERY WEEK November 22, 2022 11:26am March 05, 2023 1:52pm for 4 doses Start: 10-17-2022 End: 01-21-2024 Ozempic, 0.25 or 0.5 MG/DOSE , 2 MG/1.5ML Solution Pen-injector 10/17/2022 01/21/2024 Discontinued Start: 07-30-2022 End: 09-10-2023 Start: 07-30-2022 End: 11-22-2022 Semaglutide (Ozempic) 0.25 m g or 0.5 mg(2 mg/1.5 mL) pen injector Discontinued 0.25 MG SC EVERY WEEK July 30, 2022 1:00am November 22, 2022 11:27am for 4 doses sucralfate 100 mg/ml oral rosas spension (20 sources) Aluminum Complex Start: 01-02-2022 End: 05-01-2022 Start: 01-02-2022 End: 05-01-2022 take 5 mL by mouth twice daily, then take 5 mL by mouth twice daily Sucralfate (Carafate) 100 mg/mL suspension Discontinued 0 PO TWICE A DAY January 02, 2022 12:00am May 01, 2022 1:16pm PO twice a day; combine 5mL with 5Ml lidocaine and swish/swallow two times a day. Start: 10-19-2021 End: 01-23-2022 Start: 01-02-2021 End: 03-13-2021 Start: 11-23-2019 End: 04-08-2020 take 1 tablet by yonatan th every six hours Sucralfate 1 g tablet Take 1 tablet by mouth every 6 hours. Active thyroid (residential) 15 mg oral tab let (20 sources) Start: 09-11-2020 End: 05-17-2024 Start: 08-24-2019 End: 02-21-2020 Tirzepatide (Mounjaro) 2.5 mg/0.5 mL pen injector (18 sources) Start: 05-01-2022 End: 07-30-2022 Tirzepatide (Mounjaro) 2.5 mg/0.5 mL pen injector Discontinued 2.5 MG SC EVERY WEEK May 01, 2022 12:00am July 30, 2022 12:37pm Start: 05-01-2022 End: 07-30-2022 Tirzepatide (Mounjaro) 2.5 m g/0.5 mL pen injector Discontinued 2.5 MG SC EVERY WEEK April 30, 2022 11:00pm July 30, 2022 11:37am Start: 05-01-2022 Tirzepatide (M ounjaro) 2.5 mg/0.5 mL pen injector Active 2.5 MG SC EVERY WEEK April 30, 2022 11:00pm Start: 05-01-2022 Tirzepatide (M ounjaro) 2.5 mg/0.5 mL pen injector Active 2.5 MG SC EVERY WEEK May 01, 2022 12:00am topiramate 50 mg oral tablet (20 sources) Start: 11-23-2021 End: 02-19-2022 traMADol hydrochloride 50 mg oral tablet (20 sources) Opioid Agonist Start: 07-04-2020 End: 01-23-2022 Start: 07-04-2020 End: 09-11-2020 Tramadol Discontinued MG PO July 04, 2020 1:00am September 11, 2020 12:10pm Start: 09-01-2018 End: 05-18-2019 Start: 11-02-2015 End: 10-02-2016 Start: 11-02-2015 End: 10-02-2016 take 50 mg by mouth every six hours as needed Tramadol Discontinued 50 MG PO EVERY 6 HOURS NEEDED November 02, 2015 12:00am October 02, 2016 11:04am triamcinolone acetonide 0.00 025 mg/mg topical ointment (20 sources) Corticosteroid Start: 03-13-2021 End: 06-08-2024 Start: 03-13-2021 End: 05-07-2021 Triamcinolone Acetonide Acti ve 1 APPLIC TOPICAL DAILY 454 May 07, 2021 2:16pm triamcinolone 0. 025 % Cream cream Active ursodiol 300 mg oral capsule (20 sources) Bile Acid Start: 04-03-2022 End: 02-10-2025 take 1 capsule by mo [facility] every twelve hours ursodiol 300 MG capsule Take 1 capsule b y mouth every 12 hours. Active vitamin e 180 mg oral capsul e (20 sources) Start: 10-07-2022 End: 02-10-2025 Vitamin E Mixed (18 sources) Start: 05-01-2022 End: 10-07-2022 Vitamin E Mixed Discontinued UNIT PO April 30, 2022 11:00pm October 07, 2022 7:03am Start: 05-01-2022 End: 10-07-2022 Vitamin E Mixed Discontinued UNIT PO May 01, 2022 12:00am October 07, 2022 8:03am Start: 05-01-2022 Vitamin E Mixe d Active UNIT PO April 30, 2022 11:00pm Start: 05-01-2022 Vitamin E Mixe d Active UNIT PO May 01, 2022 12:00am zolpidem tartrate 10 mg oral tablet (3 sources) gamma-Aminobutyric Acid-ergic Agonist Start: 03-30-2007 take 1 tablet by mouth at bedtime as needed zolpidem (AMBIEN) 10 mg ORAL Tab Take one(1) tablet at bedtime as needed for insomnia. 0 03/30/2007 Active Comment on above: Take one(1) tablet at bedtime as needed for insomnia. Problems Active Problems Problem Classification Problem Date Documented Da te Episodic/Chronic Acquired foot deformities (20 sources) Acquired hallux malleus; Translations: [Other hammer toe(s) (acquired), left foot] Onset: 07-03-2024 06-11-2024 Chronic Allergic reactions (20 sources) Inflammatory dermatosis; Translations: [Dermatitis, unspecified] 03-05-2023 Episodic Anxiety disorders (20 sources) Mixed anxiety and depressive disorder; Translations: [Anxiety disorder, unspecified] Onset: 08-16-2024 Chronic Asthma (20 sources) Asthma; Translations: [Unspecified asthma, uncomplicated] Chronic Chronic kidney disease (4 sources) Chronic kidney disease stage 2; Translations: [Chronic kidney disease, stage 2 (mild)] Onset: 02-03-2024 02-03-2024 Chronic Deficiency and other anemia (20 sources) Anemia; Translations: [Anemia, unspecified] 02-19-2022 Episodic Deficiency and other anemia (13 sources) Anemia, unspecified; Translations: [Anemia, unspecified] Episodic Diabetes mellitus without complication (20 sources) Prediabetes; Translations: [Prediabetes] Onset: 03-10-2025 Episodic Diseases of white blood cells (13 sources) Leukocytosis; Translations: [Elevated white blood cell count, unspecified] 08-07-2024 Chronic Disorders of lipid metabolism (1 source) Pure hypercholesterolemia , unspecified; Translations: [Pure hypercholesterolemia , unspecified] Onset: 03-10-2025 Chronic Disorders of teeth and jaw (1 source) Full islam of crown of tooth needed due to large tooth islam; Translations: [Dental islam status] 04-04-2025 Episodic Esophageal disorders (20 sources) Roman's esophagus; Translations: [Roman's esophagus without dysplasia] Chronic Essential hypertension (20 sources) Essential hypertension; Translations: [Essential (primary) hypertension] Onset: 12-26-2004 Chronic Fracture of upper limb (15 sources) Fracture of phalanx of middle finger; Translations: [Displaced fracture of proximal phalanx of right middle finger, initial encounter for closed fracture] 11-25-2023 Episodic Immunizations and screening for infectious disease (20 sources) Contact with and (suspected) exposure to other viral communicable diseases; Translations: [Contact with or suspected exposure to other viral communicable disease] 07-01-2020 Episodic Nausea and vomiting (20 sources) Nausea, vomiting and diarrhea; Translations: [Nausea with vomiting, unspecified] 10-12-2019 Episodic Neoplasms of unspecified nature or uncertain behavior (20 sources) Monoclonal gammopathy of uncertain significance; Translations: [Monoclonal gammopathy] Onset: 11-16-2004 Chronic Nonmalignant breast conditions (20 sources) Large breast; Translations: [Hypertrophy of breast] 03-13-2021 Episodic Nonspecific chest pain (20 sources) Chest pain; Translations: [Chest pain, unspecified] 07-01-2020 Episodic Nutritional deficiencies (1 source) Vitamin D deficiency, unspecified; Translations: [Vitamin D deficiency, unspecified] Onset: 03-10-2025 Chronic Osteoarthritis (16 sources) Arthritis of left foot; Translations: [Primary osteoarthritis, left ankle and foot] Onset: 06-14-2024 06-11-2024 Chronic Other aftercare (20 sources) skilled 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; Translations: [Other [facility]current[facility] drug therapy] 07-09-2021 Episodic Other aftercare (3 sources) Other [place]current[facility] drug therapy; Translations: [Long-term (current) use of other medications] Onset: 03-10-2025 Episodic Other and unspecified benign neoplasm (20 sources) History of polyp of colon; Translations: [Personal history of colonic polyps] 09-12-2021 Episodic Other and unspecified benign neoplasm (3 sources) Personal history of colonic polyps; Translations: [Personal history of colonic polyps] Episodic Other congenital anomalies (3 sources) Congenital anomaly of skin; Translations: [Other specified congenital malformations of skin] Onset: 07-21-2006 07-21-2006 Chronic Other connective tissue disease (20 sources) Right sided abdominal pain; Translations: [Myalgia, other site] 03-05-2023 Episodic Other connective tissue disease (2 sources) Myalgia, other site; Translations: [Myalgia and myositis, unspecified] 03-05-2023 Episodic Other connective tissue disease (11 sources) Acquired short Achilles tendon; Translations: [Short Achilles tendon (acquired), left ankle] 06-11-2024 Episodic Other connective tissue disease (11 sources) Foot pain; Translations: [Pain in left foot] 06-11-2024 Episodic Other connective tissue disease (2 sources) Fibromyalgia; Translations: [Fibromyalgia] Onset: 03-10-2025 Episodic Other endocrine disorders (20 sources) Hypoadrenalism; Translations: [Unspecified adrenocortical insufficiency] 11-16-2018 Chronic Other endocrine disorders (6 sources) Unspecified adrenocortical insufficiency; 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] Onset: 12-28-2024 Chronic Other fractures (5 sources) Fracture of rib; Translations: [Fracture of one rib, right side, initial encounter for closed fracture] 02-10-2023 Episodic Other fractures (2 sources) Fracture of one rib, right side, initial encounter for closed fracture; Translations: [Closed fracture of rib(s), unspecified] 02-10-2023 Episodic Other fractures (15 sources) Fracture of right rib; Translations: [Fracture of one rib, right side, initial encounter for closed fracture] 02-10-2023 Episodic Other gastrointestinal disorders (20 sources) Constipation; Translations: [Constipation, unspecified] 09-13-2021 Episodic Other gastrointestinal disorders (3 sources) Constipation, unspecified; Translations: [Constipation, unspecified] Episodic Other gastrointestinal disorders (20 sources) Diarrhea; Translations: [Diarrhea, unspecified] 06-12-2022 Episodic Other gastrointestinal disorders (11 sources) Diarrhea, unspecified; Translations: [Diarrhea] Episodic Other infections; including parasitic (20 sources) Worms in stool; Translations: [Helminthiasis, unspecified] 10-11-2021 Episodic Other injuries and conditions due to external causes (11 sources) At risk for falls ; Translations: [History of falling] 06-12-2024 Episodic Other injuries and conditions due to external causes (4 sources) Other specified injuries of thorax, initial encounter; Translations: [Contusion of rib on right side] 02-10-2023 Episodic Other liver diseases (12 sources) Non-alcoholic fatty liver; Translations: [Fatty (change of) liver, not elsewhere classified] Chronic Other liver diseases (20 sources) Fatty (change of) liver, not elsewhere classified; Translations: [Other chronic nonalcoholic liver disease] Onset: 08-16-2024 Chronic Other lower respiratory disease (20 sources) Dyspnea on exertion; Translations: [Dyspnea, unspecified] 07-01-2020 Episodic Other lower respiratory disease (20 sources) Dyspnea; Translations: [Dyspnea, unspecified] 08-19-2022 Episodic Other lower respiratory disease (4 sources) Dyspnea, unspecified; Translations: [Other respiratory abnormalities] 08-19-2022 Episodic Other nervous system disorders (1 source) Other chronic pain; Translations: [Other chronic pain] Onset: 06-14-2024 Chronic Other nervous system disorders (20 sources) Abnormal gait; Translations: [Unsteadiness on feet] 06-12-2021 Episodic Other nervous system disorders (4 sources) Unsteadiness on feet; Translations: [Abnormality of gait] 09-10-2023 Episodic Other nervous system disorders (11 sources) Pain in limb; Translations: [Other acute postprocedural pain] 06-19-2024 Episodic Other nervous system disorders (11 sources) Acute postoperative pain; Translations: [Other acute postprocedural pain] 06-11-2024 Episodic Other nutritional; endocrine; and metabolic disorders (20 sources) Obesity; Translations: [Obesity, unspecified] 01-01-2022 Chronic Other nutritional; endocrine; and metabolic disorders (20 sources) Obesity, unspecified; Translations: [Obesity, unspecified] Onset: 08-16-2024 Chronic Other nutritional; endocrine; and metabolic disorders (9 sources) Obese class II; Translations: [Obesity, unspecified] Onset: 09-24-2023 09-24-2023 Chronic Other nutritional; endocrine; and metabolic disorders (11 sources) Body mass index 40+ - severely obese 01-30-2022 Chronic Other nutritional; endocrine; and metabolic disorders (13 sources) Body mass index 30+ - obesity; Translations: [Obesity, unspecified] 08-08-2024 Chronic Other nutritional; endocrine; and metabolic disorders (4 sources) H/O: diabetes mellitus; Translations: [Personal history of other endocrine, nutritional and metabolic disease] 02-10-2025 Episodic Other screening for suspected conditions (not mental disorders or infectious disease) (20 sources) Patient encounter status; Translations: [Encounter for screening for diabetes mellitus] Episodic Other upper respiratory infections (20 sources) Acute upper respiratory infection; Translations: [Acute upper respiratory infection, unspecified] 02-09-2022 Episodic Otitis media and related conditions (20 sources) Otitis media; Translations: [Otitis media, unspecified, unspecified ear] 12-21-2019 Episodic Residual codes; unclassified (20 sources) Central sleep apnea syndrome; 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] 01-01-2022 Chronic Residual codes; unclassified (17 sources) Primary central sleep apnea; Translations: [Unspecified sleep apnea] Chronic Residual codes; unclassified (7 sources) Obstructive sleep apnea syndrome; Translations: [Obstructive sleep apnea (adult) (pediatric)] Onset: 02-03-2024 09-24-2023 Chronic Residual codes; unclassified (1 source) Hypersomnia; Translations: [Hypersomnia, unspecified] 01-21-2024 Chronic Residual codes; unclassified (4 sources) Obstructive sleep apnea (adult) (pediatric); Translations: [Obstructive sleep apnea (adult) (pediatric)] Onset: 01-21-2024 Chronic Residual codes; unclassified (2 sources) Hypersomnia, unspecified; Translations: [Hypersomnia, unspecified] Onset: 01-21-2024 Chronic Residual codes; unclassified (19 sources) Sleep apnea; Translations: [Sleep apnea, unspecified] 07-21-2024 Chronic Residual codes; unclassified (20 sources) Edema of lower extremity; Translations: [Localized edema] 07-01-2020 Episodic Residual codes; unclassified (5 sources) Amnesia; Translations: [Other amnesia] 10-20-2023 Episodic Residual codes; unclassified (2 sources) Other amnesia; Translations: [Other amnesia] Onset: 02-11-2024 Episodic Residual codes; unclassified (20 sources) Pain; Translations: [Pain, unspecified] 08-08-2024 Episodic Residual codes; unclassified (20 sources) History of operative procedure on foot; Translations: [Other specified postprocedural states] 08-07-2024 Episodic Rheumatoid arthritis and related disease (13 sources) Rheumatoid arthritis - ankle and/or foot; Translations: [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] Onset: 03-10-2025 06-11-2024 Chronic Schizophrenia and other psychotic disorders (20 sources) Delusional disorder; Translations: [Delusional disorders] 12-18-2024 Chronic Schizophrenia and other psychotic disorders (4 sources) Brief psychotic disorder; Translations: [Acute psychosis] 02-10-2025 Episodic Screening and history of mental health and substance abuse codes (1 source) Encounter for general psychiatric examination, requested by authority; Translations: [Encounter for general psychiatric examination, requested by authority] Onset: 02-16-2025 Episodic Spondylosis; intervertebral disc disorders; other back problems (20 sources) Nuchal pain; Translations: [Cervicalgia] 11-22-2020 Episodic Sprains and strains (20 sources) Strain of muscle of lower limb; Translations: [Strain of unspecified muscle(s) and tendon(s) at lower leg level, right leg, initial encounter] Episodic Superficial injury; contusion (20 sources) Contusion of rib; Translations: [Contusion of right front wall of thorax, initial encounter] 02-10-2023 Episodic Systemic lupus erythematosus and connective tissue disorders (20 sources) Sjogren's syndrome; Translations: [Sicca syndrome, unspecified] 11-22-2022 Chronic Thyroid disorders (20 sources) Hypothyroidism; Translations: [Hypothyroidism, unspecified] Onset: 03-10-2025 07-01-2020 Chronic Unclassified (4 sources) Abrasion, left knee, initial encounter 11-25-2023 Unclassified (2 sources) New Patient; Translations: [New Patient] Onset: 05-28-2023 Unclassified (1 source) Low back pain, unspecified; Translations: [Low back pain, unspecified] Onset: 06-14-2024 Past or Other Problems Problem Classification Problem Date Documented Date Episodic/Chronic E Codes: Fall (14 sources) Fall; Translations: [Unspecified fall, initial encounter] Onset: 08-16-2024 08-08-2024 Episodic Fluid and electrolyte disorders (20 sources) Hypokalemia; Translations: [Hypokalemia] Onset: 08-16-2024 Episodic Fracture of upper limb (15 sources) Closed fracture of humerus; Translations: [Unspecified fracture of shaft of humerus, left arm, initial encounter for closed fracture] Onset: 08-16-2024 08-08-2024 Episodic Malaise and fatigue (20 sources) Malaise and fatigue; Translations: [Other malaise] Onset: 06-14-2024 Episodic Other bone disease and musculoskeletal deformities (4 sources) Disorder of skeletal system; Translations: [Disorder of bone, unspecified] Onset: 11-16-2004 02-03-2024 Episodic Other connective tissue disease (1 source) Pain in unspecified limb; Translations: [Pain in unspecified limb] Onset: 06-14-2024 Episodic Other injuries and conditions due to external causes (1 source) History of falling; Translations: [History of falling] Onset: 06-14-2024 Episodic Other nervous system disorders (2 sources) Other acute postprocedural pain; Translations: [Other acute postprocedural pain] Onset: 06-14-2024 Episodic Residual codes; unclassified (3 sources) Family history of malignant neoplasm of gastrointestinal tract; Translations: [Family history of malignant neoplasm of digestive organs] Onset: 05-07-2012 08-06-2021 Episodic Residual codes; unclassified (1 source) Altered mental status, unspecified; Translations: [Altered mental status, unspecified] Onset: 12-15-2024 Episodic Residual codes; unclassified (1 source) Asymptomatic menopausal state; Translations: [Asymptomatic menopausal state] Onset: 11-28-2024 Episodic Residual codes; unclassified (1 source) Pain, unspecified; Translations: [Pain, unspecified] Onset: 08-16-2024 Episodic Residual codes; unclassified (1 source) Other specified postprocedural states; Translations: [Other specified postprocedural states] Onset: 08-16-2024 Episodic Unclassified (20 sources) Body mass index 40+ - severely obese; Translations: [Body mass index (BMI) greater than 40] Unclassified (1 source) Onset: 02-03-2024 02-03-2024 Viral infection (20 sources) COVID-19; Translations: [Severe acute respiratory syndrome coronavirus 2 (SARS-CoV-2) detected] Onset: 05-09-2020 09-25-2020 Episodic Results Test Name Value Interpretation Reference Range Facility CBC W/Diff, Automatedon 04-11 Absolute Lymph 2.96 X10 3/uL Normal 0.83-4.51 [facility] Comment on above: Performed By: #### L 500.4050, L100.0100 ####[facility] [address] [place], [place], [address] Absolute Neut 6.1 X10 3/uL Normal 2.0-7.7 [facility] Comment on above: Performed By: #### L 500.4050, L100.0100 ####[facility] [address] [place], [address] Basophils/100 WBC (Bld) 0.5 % Normal 0-1 [facility] Comment on above: Performed By: #### L 500.4050, L100.0100 ####[facility] [address] [place], [address] Eosinophils/100 WBC (Bld) 1.7 % Normal 0-5 [facility] Comment on above: Performed By: #### L 500.4050, L100.0100 ####[facility] [address] [place], [address] Erythrocyte distribution width (RBC) [Ratio] 13.3 % Normal 11.6-14.6 [facility] Comment on above: Performed By: #### L 500.4050, L100.0100 ####[facility] [address] [place], [address] Hematocrit (Bld) [Volume fraction] 37.2 % Normal 37-47 [facility] Comment on above: Performed By: #### L 500.4050, L100.0100 ####[facility] [address] [place], [address] Hemoglobin (Bld) [Mass/Vol] 12.0 g/dL Normal 12.0-15.0 [facility] Comment on above: Performed By: #### L 500.4050, L100.0100 ####[facility] [address] [place], [address] IG% 0.300 Normal 0.0-0.9 [facility] Comment on above: Result Comment: IG% - Immature Granulocytes (promyelocytes, myelocytes andmetamyelocytes) > 1% indicates that a LEFT SHIFT is Present. Performed By: #### L 500.4050, L100.0100 ####[facility] [address] [place], [address] Lymphocytes/100 WBC (Bld) 29.9 % Normal 19-41 [facility] Comment on above: Performed By: #### L 500.4050, L100.0100 ####[facility] [address] [place], [address] MCH (RBC) [Entitic mass] 31.1 pg Normal 27.0-32.0 [facility] Comment on above: Performed By: #### L 500.4050, L100.0100 ####[facility] [address] [place], [address] MCHC (RBC) [Mass/Vol] 32.3 g/dL Normal 32-36 [facility] Comment on above: Performed By: #### L 500.4050, L100.0100 ####[facility] [address] [place], [address] MCV (RBC) [Entitic vol] 96.4 fL Normal 81-99 [facility] Comment on above: Performed By: #### L 500.4050, L100.0100 ####[facility] [address] [place], [address] Monocytes/100 WBC (Bld) 6.0 % Normal 0-10 [facility] Comment on above: Performed By: #### L 500.4050, L100.0100 ####[facility] [address] [place], [address] Neutrophils/100 WBC (Bld) 61.6 % Normal 47-70 [facility] Comment on above: Performed By: #### L 500.4050, L100.0100 ####[facility] [address] [place], [address] Nucleated RBC (Bld) [#/Vol] 0 10*3/uL Normal 0-5 [facility] Comment on above: Performed By: #### L 500.4050, L100.0100 ####[facility] [address] [place], [address] Platelet mean volume (Bld) [Entitic vol] 9.5 fL Normal 6.2-12.0 [facility] Comment on above: Performed By: #### L 500.4050, L100.0100 ####[facility] [address] [place], [address] Platelets (Bld) [#/Vol] 364 10*3/uL Normal 150-450 [facility] Comment on above: Performed By: #### L 500.4050, L100.0100 ####[facility] [address] [place], [address] RBC (Bld) [#/Vol] 3.86 10*6/uL Low 4.2-5.4 [facility] Comment on above: Performed By: #### L 500.4050, L100.0100 ####[facility] [address] [place], [address] RDW SD 47.8 fl High 35.1-43.9 [facility] Comment on above: Performed By: #### L 500.4050, L100.0100 ####[facility] [address] [place], [address] WBC (Bld) [#/Vol] 9.9 10*3/uL Normal 4.4-11.0 [facility] Comment on above: Performed By: #### L 500.4050, L100.0100 ####[facility] [address] [place], [address] Comprehensive Metabolic Prof [facility] 04-25-2025 Albumin [Mass/Vol] 4.3 g/dL Normal 3.4-4.8 [facility] Comment on above: Performed By: #### L 500.4050, L100.0100 ####[facility] [facility] [address] [place], [address] Albumin/Globulin [Mass ratio] 1.6 {ratio} Normal 0.9-2.4 [facility] Comment on above: Performed By: #### L 500.4050, L100.0100 ####[facility] [address] [place], [address] ALK PHOS 100 U/L Normal 35-104 [facility] Comment on above: Performed By: #### L 500.4050, L100.0100 ####[facility] [address] [place], [address] ALT [Catalytic activity/Vol] 13 U/L Normal <=34 [facility] Comment on above: Performed By: #### L 500.4050, L100.0100 ####[facility] [address] [place], [address] AST [Catalytic activity/Vol] 21 U/L Normal <=31 [facility] Comment on above: Performed By: #### L 500.4050, L100.0100 ####[facility] [address] [place], [address] Bilirubin [Mass/Vol] 0.40 mg/dL Normal 0.00-1.30 [facility] Comment on above: Performed By: #### L 500.4050, L100.0100 ####[facility] [address] [place], [address] BUN/CRE 22.2 RATIO High 10-20 [facility] Comment on above: Performed By: #### L 500.4050, L100.0100 ####[facility] [address] [place], [address] Calcium [Mass/Vol] 9.3 mg/dL Normal 7.6-11.0 [facility] Comment on above: Performed By: #### L 500.4050, L100.0100 ####[facility] [address] [place], [address] Chloride [Moles/Vol] 105 mmol/L Normal 98-108 [facility] Comment on above: Performed By: #### L 500.4050, L100.0100 ####[facility] [address] [place], [address] CO2 [Moles/Vol] 25.1 mmol/L Normal 21.0-32.0 [facility] Comment on above: Performed By: #### L 500.4050, L100.0100 ####[facility] [address] [place], [address] Creatinine [Mass/Vol] 0.74 mg/dL Normal 0.70-1.20 [facility] Comment on above: Performed By: #### L 500.4050, L100.0100 ####[facility] [address] [place], [address] GAP 11 Normal 5-15 [facility] Comment on above: Performed By: #### L 500.4050, L100.0100 ####[facility] [address] [place], [address] GFR/1.73 sq M.predicted among non-blacks MDRD (S/P/Bld) [Vol rate/Area] 87 mL/min/{1.73_m2} Normal >60 [facility] Comment on above: Result Comment: mL/m in/1.73m2 CKD-EPI Creatinine Equation (2020) Performed By: #### L 500.4050, L100.0100 ####[facility] [address] [place], [address] Globulin (S) [Mass/Vol] 2.7 g/dL Normal 2.2-4.2 [facility] Comment on above: Performed By: #### L 500.4050, L100.0100 ####[facility] [address] [place], [address] Glucose [Mass/Vol] 89 mg/dL Normal 70-99 [facility] Comment on above: Performed By: #### L 500.4050, L100.0100 ####[facility] [address] [place], [address] Potassium [Moles/Vol] 3.6 mmol/L Normal 3.3-5.1 [facility] Comment on above: Performed By: #### L 500.4050, L100.0100 ####[facility] [address] [place], [address] Sodium [Moles/Vol] 141 mmol/L Normal 133-145 [facility] Comment on above: Performed By: #### L 500.4050, L100.0100 ####[facility] [address] [place], [address] T PROT 7.0 g/dL Normal 5.9-8.4 [facility] Comment on above: Performed By: #### L 500.4050, L100.0100 ####[facility] [address] [place], [address] Urea nitrogen [Mass/Vol] 16 mg/dL Normal 4-19 [facility] Comment on above: Performed By: #### L 500.4050, L100.0100 ####[facility] [address] [place], [address] Gastroenterology Visit Repor ton 04-25-2025 Gastroenterology Visit Report Normal [facility] Anion gap in Serum or Plasma Ordered By: Gamaliel Whitehead on 03-10-2025 Anion gap [Moles/Vol] 13 mmol/L 5-15 [facility] BUN/creatinine ratioOrdered By: Gamaliel Whitehead on 03-10-2025 Urea nitrogen/Creatinine [Mass ratio] 25.3 mg/mg High 10-20 [facility] Bilirubin, totalOrdered By: Gamaliel Whitehead on 03-10-2025 Bilirubin [Mass/Vol] 0.42 mg/dL 0.00-1.30 [facility] Calculated very low density lipoprotein (VLDL) cholesterol measurementOrdered By: Gamaliel Whitehead on 03-10-2025 Calculated very low density lipoprotein (VLDL) cholesterol measurement 22 mg/dL 5-40 [facility] Carbon dioxide, total [Moles /volume] in Central venous bloodOrdered By: Gamaliel Whitehead on 03-10-2025 CO2 [Moles/Vol] 23.6 mmol/L 21.0-32.0 [facility] Chloride assayOrdered By: Suha Whitehead on 03-10-2025 Chloride [Moles/Vol] 103 mmol/L 98-108 [facility] Comprehensive Metabolic Prof ilon 03-10-2025 Albumin [Mass/Vol] 4.4 g/dL Normal 3.4-4.8 [facility] Comment on above: Order Comment: SEND RESULTS OF TSH,BMP,T3,T4 TO DR GAMALIEL LEAVITT. Performed By: #### L 501.9520, L506.0400, L501.54672, L500.4100, L500.4050 ####[facility] [address] [place], [place], [id number] Albumin/Globulin [Mass ratio] 1.7 {ratio} Normal 0.9-2.4 [facility] Comment on above: Order Comment: SEND RESULTS OF TSH,BMP,T3,T4 TO DR GAMALIEL LEAVITT. Performed By: #### L 501.9520, L506.0400, L501.28075, L500.4100, L500.4050 ####[facility] [address] [place], [address] ALK PHOS 124 U/L High 35-104 [facility] Comment on above: Order Comment: SEND RESULTS OF TSH,BMP,T3,T4 TO DR GAMALIEL LEAVITT. Performed By: #### L 501.9520, L506.0400, L501.94845, L500.4100, L500.4050 ####[facility] [address] [place], [address] ALT [Catalytic activity/Vol] 17 U/L Normal <=34 [facility] Comment on above: Order Comment: SEND RESULTS OF TSH,BMP,T3,T4 TO DR GAMALIEL LEAVITT. Performed By: #### L 501.9520, L506.0400, L501.80234, L500.4100, L500.4050 ####[facility] [address] [place], [address] AST [Catalytic activity/Vol] 19 U/L Normal <=31 [facility] Comment on above: Order Comment: SEND RESULTS OF TSH,BMP,T3,T4 TO DR GAMALIEL LEAVITT. Performed By: #### L 501.9520, L506.0400, L501.81793, L500.4100, L500.4050 ####[facility] [address] [place], [address] Bilirubin [Mass/Vol] 0.42 mg/dL Normal 0.00-1.30 [facility] Comment on above: Order Comment: SEND RESULTS OF TSH,BMP,T3,T4 TO DR GAMALIEL LEAVITT. Performed By: #### L 501.9520, L506.0400, L501.68958, L500.4100, L500.4050 ####[facility] [address] [place], [address] BUN/CRE 25.3 RATIO High 10-20 [facility] Comment on above: Order Comment: SEND RESULTS OF TSH,BMP,T3,T4 TO DR GAMALIEL LEAVITT. Performed By: #### L 501.9520, L506.0400, L501.56355, L500.4100, L500.4050 ####[facility] [address] [place], [address] Calcium [Mass/Vol] 9.6 mg/dL Normal 7.6-11.0 [facility] Comment on above: Order Comment: SEND RESULTS OF TSH,BMP,T3,T4 TO DR GAMALIEL LEAVITT. Performed By: #### L 501.9520, L506.0400, L501.28464, L500.4100, L500.4050 ####[facility] [address] [place], [address] Chloride [Moles/Vol] 103 mmol/L Normal 98-108 [facility] Comment on above: Order Comment: SEND RESULTS OF TSH,BMP,T3,T4 TO DR GAMALIEL LEAVITT. Performed By: #### L 501.9520, L506.0400, L501.33285, L500.4100, L500.4050 ####[facility] [address] [place], [address] CO2 [Moles/Vol] 23.6 mmol/L Normal 21.0-32.0 [facility] Comment on above: Order Comment: SEND RESULTS OF TSH,BMP,T3,T4 TO DR GAMALIEL LEAVITT. Performed By: #### L 501.9520, L506.0400, L501.32504, L500.4100, L500.4050 ####[facility] [address] [place], [address] Creatinine [Mass/Vol] 0.64 mg/dL Low 0.70-1.20 [facility] Comment on above: Order Comment: SEND RESULTS OF TSH,BMP,T3,T4 TO DR GAMALIEL LEAVITT. Performed By: #### L 501.9520, L506.0400, L501.68034, L500.4100, L500.4050 ####[facility] [address] [place], [address] GAP 13 Normal 5-15 [facility] Comment on above: Order Comment: SEND RESULTS OF TSH,BMP,T3,T4 TO DR GAMALIEL LEAVITT. Performed By: #### L 501.9520, L506.0400, L501.15004, L500.4100, L500.4050 ####[facility] [address] [place], [address] GFR/1.73 sq M.predicted among non-blacks MDRD (S/P/Bld) [Vol rate/Area] 94 mL/min/{1.73_m2} Normal >60 [facility] Comment on above: Order Comment: SEND RESULTS OF TSH,BMP,T3,T4 TO DR GAMALIEL LEAVITT. Result Comment: mL/m in/1.73m2 CKD-EPI Creatinine Equation (2020) Performed By: #### L 501.9520, L506.0400, L501.43983, L500.4100, L500.4050 ####[facility] [address] [place], [address] Globulin (S) [Mass/Vol] 2.6 g/dL Normal 2.2-4.2 [facility] Comment on above: Order Comment: SEND RESULTS OF TSH,BMP,T3,T4 TO DR GAMALIEL LEAVITT. Performed By: #### L 501.9520, L506.0400, L501.55238, L500.4100, L500.4050 ####[facility] [address] [place], [address] Glucose [Mass/Vol] 98 mg/dL Normal 70-99 [facility] Comment on above: Order Comment: SEND RESULTS OF TSH,BMP,T3,T4 TO DR GAMALIEL LEAVITT. Performed By: #### L 501.9520, L506.0400, L501.59383, L500.4100, L500.4050 ####[facility] [address] [place], [address] Potassium [Moles/Vol] 3.8 mmol/L Normal 3.3-5.1 [facility] Comment on above: Order Comment: SEND RESULTS OF TSH,BMP,T3,T4 TO DR GAMALIEL LEAVITT. Performed By: #### L 501.9520, L506.0400, L501.83704, L500.4100, L500.4050 ####[facility] [address] [place], [place], [id number] Sodium [Moles/Vol] 140 mmol/L Normal 133-145 [facility] Comment on above: Order Comment: SEND RESULTS OF TSH,BMP,T3,T4 TO DR GAMALIEL LEAVITT. Performed By: #### L 501.9520, L506.0400, L501.96049, L500.4100, L500.4050 ####[facility] [address] [place], [place], [id number] T PROT 7.0 g/dL Normal 5.9-8.4 [facility] Comment on above: Order Comment: SEND RESULTS OF TSH,BMP,T3,T4 TO DR GAMALIEL LEAVITT. Performed By: #### L 501.9520, L506.0400, L501.82570, L500.4100, L500.4050 ####[facility] [address] [place], [place], [id number] Urea nitrogen [Mass/Vol] 16 mg/dL Normal 4-19 [facility] Comment on above: Order Comment: SEND RESULTS OF TSH,BMP,T3,T4 TO DR GAMALIEL LEAVITT. Performed By: #### L 501.9520, L506.0400, L501.88467, L500.4100, L500.4050 ####[facility] [address] [place], [address] Free T3on 03-10-2025 Free T3 [Mass/Vol] 3.0 pg/mL Normal 2.18-3.98 [facility] Comment on above: Order Comment: SEND RESULTS OF TSH,BMP,T3,T4 TO DR GAMALIEL LEAVITT. Performed By: #### L 501.9520, L506.0400, L501.02703, L500.4100, L500.4050 ####[facility] [address] [place], [place], [id number] Free O6Padixli By: Gamaliel romano on 03-10-2025 Free T3 [Mass/Vol] 3.0 pg/mL 2.18-3.98 [facility] Glomerular filtration rate ( GFR) estimation/1.73 sq m using serum, plasma, or whole bOrdered By: Gamaliel Whitehead on 03-10-2025 GFR/1.73 sq M.predicted among non-blacks MDRD (S/P/Bld) [Vol rate/Area] 94 mL/min/{1.73_m2} >60 [facility] LDL calc ser/plasOrdered By: Gamaliel Whitehead on 03-10-2025 Cholesterol in LDL [Mass/Vol] 74 mg/dL [facility] Lipid Profileon 03-10-2025 CHOL:HDL 2.33 Normal [facility] Comment on above: Order Comment: SEND RESULTS OF TSH,BMP,T3,T4 TO DR GAMALIEL LEAVITT. Performed By: #### L 501.9520, L506.0400, L501.16085, L500.4100, L500.4050 ####[facility] [address] [place], [place], [phone] Cholesterol [Mass/Vol] 168 mg/dL Normal <=200 [facility] Comment on above: Order Comment: SEND RESULTS OF TSH,BMP,T3,T4 TO DR GAMALIEL LEAVITT. Result Comment: Chol esterol level, Desirable <200 mg/dLBorderline high cholesterol 200-239 mg/dLHigh cholesterol >=240 mg/dLRecommendations of the NCEP Adult Treatment Panel for thefollowing risk-cutoff thresholds for the [place] Americanpulation. Performed By: #### L 501.9520, L506.0400, L501.92496, L500.4100, L500.4050 ####[facility] [address] [place], [place], [phone] Cholesterol in HDL [Mass/Vol] 72 mg/dL Normal [facility] Comment on above: Order Comment: SEND RESULTS OF TSH,BMP,T3,T4 TO DR GAMALIEL LEAVITT. Result Comment: Iliana onal Cholesterol Education Program (NCEP) guidelines:<40 mg/dL: Low HDL-cholesterol (major risk factor for CHD)>= 60 mg/dL: High HDL-cholesterol (negative risk factor forCHD)HDL-cholesterol is affected by a number of factors, e.g.smoking, exercise, hormones, sex and age. Performed By: #### L 501.9520, L506.0400, L501.09059, L500.4100, L500.4050 ####[facility] [address] [place], [address] Cholesterol in LDL [Mass/Vol] 74 mg/dL Normal [facility] Comment on above: Order Comment: SEND RESULTS OF TSH,BMP,T3,T4 TO DR GAMALIEL LEAVITT. Result Comment: Bord akheyr=945-818 mg/dL Higher Fuek=769 mg/dL or greaterFriedwald Equation for LDL-C Performed By: #### L 501.9520, L506.0400, L501.11793, L500.4100, L500.4050 ####[facility] [address] [place], [address] Cholesterol in VLDL [Mass/Vol] 22 mg/dL Normal 5-40 [facility] Comment on above: Order Comment: SEND RESULTS OF TSH,BMP,T3,T4 TO DR GAMALIEL LEAVITT. Performed By: #### L 501.9520, L506.0400, L501.47405, L500.4100, L500.4050 ####[facility] [address] [place], [address] Triglyceride [Mass/Vol] 111 mg/dL Normal [facility] Comment on above: Order Comment: SEND RESULTS OF TSH,BMP,T3,T4 TO DR GAMALIEL LEAVITT. Result Comment: The drugs N-Acetylcysteine and Metamizole may falselydepress this assay.Normal range: <150 mg/dLBorderline High: 150-199 mg/dLHigh: 200-499 mg/dLVery High: >500 mg/dL Performed By: #### L 501.9520, L506.0400, L501.65046, L500.4100, L500.4050 ####[facility] [address] [place], [address] No Panel InformationOrdered By: Gamaliel Whitehead on 03-10-2025 19 U/L <32 [facility] Potassium measurement (mass/ volume)Ordered By: Gamaliel Whitehead on 03-10-2025 Potassium (Unsp spec) [Mass/Vol] 3.8 mmol/L 3.3-5.1 [facility] Serum creatinine measurement (mass/volume)Ordered By: Gamaliel Whitehead on 03-10-2025 Creatinine [Mass/Vol] 0.64 mg/dL Low 0.70-1.20 [facility] Serum globulin measurementOr dered By: Gamaliel Whitehead on 03-10-2025 Globulin (S) [Mass/Vol] 2.6 g/dL 2.2-4.2 [facility] Serum glucose measurement (m ass/volume)Ordered By: Gamaliel Whitehead on 03-10-2025 Glucose [Mass/Vol] 98 mg/dL 70-99 [facility] Serum or plasma alanine gatica otransferase (ALT) measurementOrdered By: Gamaliel Whitehead on 03-10-2025 ALT [Catalytic activity/Vol] 17 U/L <35 [facility] Serum or plasma albumin sonali urement (mass/volume)Ordered By: Gamaliel Whitehead on 03-10-2025 Albumin [Mass/Vol] 4.4 g/dL 3.4-4.8 [facility] Serum or plasma albumin/glob ulin mass ratioOrdered By: Gamaliel Whitehead on 03-10-2025 Albumin/Globulin [Mass ratio] 1.7 {ratio} 0.9-2.4 [facility] Serum or plasma alkaline ike sphatase measurementOrdered By: Gamaliel Whitehead on 03-10-2025 ALP [Catalytic activity/Vol] 124 U/L High 35-104 [facility] Serum or plasma calcium sonali urement (mass/volume)Ordered By: Gamaliel Whitehead on 03-10-2025 Calcium [Mass/Vol] 9.6 mg/dL 7.6-11.0 [facility] Serum or plasma cholesterol in HDL measurement (mass/volume)Ordered By: Gamaliel Whitehead on 03-10-2025 Cholesterol in HDL [Mass/Vol] 72 mg/dL >40 [facility] Serum or plasma cholesterol measurement (mass/volume)Ordered By: Gamaliel Whitehead on 03-10-2025 Cholesterol [Mass/Vol] 168 mg/dL <201 [facility] Serum or plasma urea nitroge n measurement (mass/volume)Ordered By: Gamaliel Whitehead on 03-10-2025 Urea nitrogen [Mass/Vol] 16 mg/dL 4-19 [facility] Sodium levelOrdered By: Gamaliel Whitehead on 03-10-2025 Sodium [Moles/Vol] 140 mmol/L 133-145 [facility] T4 Free Directon 03-10-2025 T4 FREE DIRECT 1.20 ng/dL Normal 0.76-1.46 [facility] Comment on above: Order Comment: SEND RESULTS OF TSH,BMP,T3,T4 TO DR GAMALIEL LEAVITT. Performed By: #### L 501.9520, L506.0400, L501.74694, L500.4100, L500.4050 ####[facility] [address] [place], [place], [id number] T4 freeOrdered By: Gamaliel romano on 03-10-2025 Free T4 [Mass/Vol] 1.20 ng/dL 0.76-1.46 [facility] TSH DL <= 0.005 mIU/L QnOrde red By: Gamaliel Whitehead on 03-10-2025 TSH Qn 3.840 uIU/mL 0.300-4.200 [facility] Thyroid Stim Hormone (TSH)on 03-10-2025 TSH 3.840 uIU/mL Normal 0.300-4.200 [facility] Comment on above: Order Comment: SEND RESULTS OF TSH,BMP,T3,T4 TO DR GAMALIEL LEAVITT. Performed By: #### L 501.9520, L506.0400, L501.15943, L500.4100, L500.4050 ####[facility] [address] [place], [address] Total proteinOrdered By: Lizbeth Whitehead on 03-10-2025 Protein [Mass/Vol] 7.0 g/dL 5.9-8.4 [facility] 12 Lead EKGon 02-10-2025 12 Lead EKG Normal [facility] Absolute lymphocyte countOrd ered By: Torres Koroma on 02-10-2025 Lymphocytes Auto (Unsp spec) [#/Vol] 4.64 10*3/uL High 0.83-4.51 [facility] Alcohol, Blood (Medical)-Ser umon 02-10-2025 SERUM ETOH < 10.1 Normal <=10.0 [facility] Comment on above: Result Comment: This test is for medical purposes only. The legaldefinition of intoxication varies according to local law. Performed By: #### L 500.4050, L505.5000, L100.0100, L501.9100 ####[facility] [address] [place], [place], [id number] Amphetamine detection with 1 000 ng/mL as cutoffOrdered By: Torres Koroma on 02-10-2025 Amphetamines Screen method >1000 ng/mL Ql (U) Negative < 200 ng/mL [facility] Anion gap in Serum or Plasma Ordered By: Torres Koroma on 02-10-2025 Anion gap [Moles/Vol] 13 mmol/L 5-15 [facility] Automated lymphocyte count a s percentage of total leukocytesOrdered By: Torres Koroma on 02-10-2025 Lymphocytes/100 WBC Auto (Unsp spec) 49.6 % High 19-41 [facility] BUN/creatinine ratioOrdered By: Torres Koroma on 02-10-2025 Urea nitrogen/Creatinine [Mass ratio] 23.9 mg/mg High 10-20 [facility] Basophil percentageOrdered B y: Torres Koroma on 02-10-2025 Basophils/100 WBC (Bld) 0.5 % 0-1 [facility] Bilirubin, totalOrdered By: Torres Koroma on 02-10-2025 Bilirubin [Mass/Vol] 0.48 mg/dL 0.00-1.30 [facility] CBC W/Diff, Automatedon Absolute Lymph 4.64 X10 3/uL High 0.83-4.51 [facility] Comment on above: Performed By: #### L 500.4050, L505.5000, L100.0100, L501.9100 ####[facility] [address] [place], [address] Absolute Neut 3.8 X10 3/uL Normal 2.0-7.7 [facility] Comment on above: Performed By: #### L 500.4050, L505.5000, L100.0100, L501.9100 ####[facility] [address] [place], [address] Basophils/100 WBC (Bld) 0.5 % Normal 0-1 [facility] Comment on above: Performed By: #### L 500.4050, L505.5000, L100.0100, L501.9100 ####[facility] [address] [place], [address] Eosinophils/100 WBC (Bld) 2.1 % Normal 0-5 [facility] Comment on above: Performed By: #### L 500.4050, L505.5000, L100.0100, L501.9100 ####[facility] [address] [place], [address] Erythrocyte distribution width (RBC) [Ratio] 12.9 % Normal 11.6-14.6 [facility] Comment on above: Performed By: #### L 500.4050, L505.5000, L100.0100, L501.9100 ####[facility] [address] [place], [address] Hematocrit (Bld) [Volume fraction] 37.7 % Normal 37-47 [facility] Comment on above: Performed By: #### L 500.4050, L505.5000, L100.0100, L501.9100 ####[facility] [address] [place], [address] Hemoglobin (Bld) [Mass/Vol] 12.7 g/dL Normal 12.0-15.0 [facility] Comment on above: Performed By: #### L 500.4050, L505.5000, L100.0100, L501.9100 ####[facility] [address] [place], [address] IG% 0.200 Normal 0.0-0.9 [facility] Comment on above: Result Comment: IG% - Immature Granulocytes (promyelocytes, myelocytes andmetamyelocytes) > 1% indicates that a LEFT SHIFT is Present. Performed By: #### L 500.4050, L505.5000, L100.0100, L501.9100 ####[facility] [address] [place], [address] Lymphocytes/100 WBC (Bld) 49.6 % High 19-41 [facility] Comment on above: Performed By: #### L 500.4050, L505.5000, L100.0100, L501.9100 ####[facility] [address] [place], [address] MCH (RBC) [Entitic mass] 32.2 pg High 27.0-32.0 [facility] Comment on above: Performed By: #### L 500.4050, L505.5000, L100.0100, L501.9100 ####[facility] [address] [place], [address] MCHC (RBC) [Mass/Vol] 33.7 g/dL Normal 32-36 [facility] Comment on above: Performed By: #### L 500.4050, L505.5000, L100.0100, L501.9100 ####[facility] [address] [place], [address] MCV (RBC) [Entitic vol] 95.4 fL Normal 81-99 [facility] Comment on above: Performed By: #### L 500.4050, L505.5000, L100.0100, L501.9100 ####[facility] [address] [place], [address] Monocytes/100 WBC (Bld) 6.5 % Normal 0-10 [facility] Comment on above: Performed By: #### L 500.4050, L505.5000, L100.0100, L501.9100 ####[facility] [address] [place], [address] Neutrophils/100 WBC (Bld) 41.1 % Low 47-70 [facility] Comment on above: Performed By: #### L 500.4050, L505.5000, L100.0100, L501.9100 ####[facility] [address] [place], [address] Nucleated RBC (Bld) [#/Vol] 0 10*3/uL Normal 0-5 [facility] Comment on above: Performed By: #### L 500.4050, L505.5000, L100.0100, L501.9100 ####[facility] [address] [place], [address] Platelet mean volume (Bld) [Entitic vol] 9.2 fL Normal 6.2-12.0 [facility] Comment on above: Performed By: #### L 500.4050, L505.5000, L100.0100, L501.9100 ####[facility] [address] [place], [address] Platelets (Bld) [#/Vol] 329 10*3/uL Normal 150-450 [facility] Comment on above: Performed By: #### L 500.4050, L505.5000, L100.0100, L501.9100 ####[facility] [address] [place], [address] RBC (Bld) [#/Vol] 3.95 10*6/uL Low 4.2-5.4 [facility] Comment on above: Performed By: #### L 500.4050, L505.5000, L100.0100, L501.9100 ####[facility] [address] [place], [address] RDW SD 45.2 fl High 35.1-43.9 [facility] Comment on above: Performed By: #### L 500.4050, L505.5000, L100.0100, L501.9100 ####[facility] [address] [place], [address] WBC (Bld) [#/Vol] 9.4 10*3/uL Normal 4.4-11.0 [facility] Comment on above: Performed By: #### L 500.4050, L505.5000, L100.0100, L501.9100 ####[facility] [address] [place], [address] Carbon dioxide, total [Moles /volume] in Central venous bloodOrdered By: Torres Koroma on 02-10-2025 CO2 [Moles/Vol] 20.6 mmol/L Low 21.0-32.0 [facility] Chloride assayOrdered By: Hossein Koroma on 02-10-2025 Chloride [Moles/Vol] 107 mmol/L 98-108 [facility] Comprehensive Metabolic Prof ilon 02-10-2025 Albumin [Mass/Vol] 4.4 g/dL Normal 3.4-4.8 [facility] Comment on above: Performed By: #### L 500.4050, L505.5000, L100.0100, L501.9100 ####[facility] [address] [place], [address] Albumin/Globulin [Mass ratio] 1.7 {ratio} Normal 0.9-2.4 [facility] Comment on above: Performed By: #### L 500.4050, L505.5000, L100.0100, L501.9100 ####[facility] [address] [place], [address] ALK PHOS 109 U/L High 35-104 [facility] Comment on above: Performed By: #### L 500.4050, L505.5000, L100.0100, L501.9100 ####[facility] [address] [place], [address] ALT [Catalytic activity/Vol] 17 U/L Normal <=34 [facility] Comment on above: Performed By: #### L 500.4050, L505.5000, L100.0100, L501.9100 ####[facility] [address] [place], [address] AST [Catalytic activity/Vol] 26 U/L Normal <=31 [facility] Comment on above: Performed By: #### L 500.4050, L505.5000, L100.0100, L501.9100 ####[facility] [address] [place], [address] Bilirubin [Mass/Vol] 0.48 mg/dL Normal 0.00-1.30 [facility] Comment on above: Performed By: #### L 500.4050, L505.5000, L100.0100, L501.9100 ####[facility] [address] [place], [address] BUN/CRE 23.9 RATIO High 10-20 [facility] Comment on above: Performed By: #### L 500.4050, L505.5000, L100.0100, L501.9100 ####[facility] [address] [place], [address] Calcium [Mass/Vol] 9.6 mg/dL Normal 7.6-11.0 [facility] Comment on above: Performed By: #### L 500.4050, L505.5000, L100.0100, L501.9100 ####[facility] [address] [place], [address] Chloride [Moles/Vol] 107 mmol/L Normal 98-108 [facility] Comment on above: Performed By: #### L 500.4050, L505.5000, L100.0100, L501.9100 ####[facility] [address] [place], [address] CO2 [Moles/Vol] 20.6 mmol/L Low 21.0-32.0 [facility] Comment on above: Performed By: #### L 500.4050, L505.5000, L100.0100, L501.9100 ####[facility] [address] [place], [address] Creatinine [Mass/Vol] 0.70 mg/dL Normal 0.70-1.20 [facility] Comment on above: Performed By: #### L 500.4050, L505.5000, L100.0100, L501.9100 ####[facility] [address] [place], [address] GAP 13 Normal 5-15 [facility] Comment on above: Performed By: #### L 500.4050, L505.5000, L100.0100, L501.9100 ####[facility] [address] [place], [address] GFR/1.73 sq M.predicted among non-blacks MDRD (S/P/Bld) [Vol rate/Area] 91 mL/min/{1.73_m2} Normal >60 [facility] Comment on above: Result Comment: mL/m in/1.73m2 CKD-EPI Creatinine Equation (2020) Performed By: #### L 500.4050, L505.5000, L100.0100, L501.9100 ####[facility] [address] [place], [address] Globulin (S) [Mass/Vol] 2.6 g/dL Normal 2.2-4.2 [facility] Comment on above: Performed By: #### L 500.4050, L505.5000, L100.0100, L501.9100 ####[facility] [address] [place], [address] Glucose [Mass/Vol] 107 mg/dL High 70-99 [facility] Comment on above: Performed By: #### L 500.4050, L505.5000, L100.0100, L501.9100 ####[facility] [address] [place], [address] Potassium [Moles/Vol] 3.3 mmol/L Normal 3.3-5.1 [facility] Comment on above: Performed By: #### L 500.4050, L505.5000, L100.0100, L501.9100 ####[facility] [address] [place], [address] Sodium [Moles/Vol] 140 mmol/L Normal 133-145 [facility] Comment on above: Performed By: #### L 500.4050, L505.5000, L100.0100, L501.9100 ####[facility] [address] [place], [address] T PROT 7.0 g/dL Normal 5.9-8.4 [facility] Comment on above: Performed By: #### L 500.4050, L505.5000, L100.0100, L501.9100 ####[facility] [address] [place], [address] Urea nitrogen [Mass/Vol] 17 mg/dL Normal 4-19 [facility] Comment on above: Performed By: #### L 500.4050, L505.5000, L100.0100, L501.9100 ####[facility] [address] [place], [address] Emergency Department Summary on 02-10-2025 Emergency Department Summary Normal [facility] Eosinophil percentageOrdered By: Torres Koroma on 02-10-2025 Eosinophils/100 WBC (Bld) 2.1 % 0-5 [facility] Erythrocyte distribution wid th ratioOrdered By: Torres Koroma on 02-10-2025 Erythrocyte distribution width (RBC) [Ratio] 12.9 % 11.6-14.6 [facility] Erythrocyte distribution wid th standard deviationOrdered By: Torres Koroma on 02-10-2025 Erythrocyte distribution width (RBC) [Ratio] 45.2 fl High 35.1-43.9 [facility] Glomerular filtration rate ( GFR) estimation/1.73 sq m using serum, plasma, or whole bOrdered By: Torres Koroma on 02-10-2025 GFR/1.73 sq M.predicted among non-blacks MDRD (S/P/Bld) [Vol rate/Area] 91 mL/min/{1.73_m2} >60 [facility] Hematocrit Auto (Bld) [Volum e fraction]Ordered By: Torres Koroma on 02-10-2025 Hematocrit (Bld) [Volume fraction] 37.7 % 37-47 [facility] Hemoglobin measurementOrdere d By: Torres Koroma on 02-10-2025 Hemoglobin (Bld) [Mass/Vol] 12.7 g/dL 12.0-15.0 [facility] Immature granulocytes/100 WB C Auto (Bld)Ordered By: Torres Koroma on 02-10-2025 Immature granulocytes/100 WBC (Bld) 0.200 % 0.0-0.9 [facility] MCV (mean corpuscular volume ) determinationOrdered By: Torres Koroma on 02-10-2025 MCV (RBC) [Entitic vol] 95.4 fL 81-99 [facility] Mean corpuscular hemoglobin (MCH) determinationOrdered By: Torres Koroma on 02-10-2025 MCH (RBC) [Entitic mass] 32.2 pg High 27.0-32.0 [facility] Monocyte percentageOrdered B y: Torres Koroma on 02-10-2025 Monocytes/100 WBC (Bld) 6.5 % 0-10 [facility] Neutrophil percentageOrdered By: Torres Koroma on 02-10-2025 Neutrophils/100 WBC (Bld) 41.1 % Low 47-70 [facility] No Panel InformationOrdered By: Torres Koroma on 02-10-2025 Negative < 200 ng/mL [facility] 26 U/L <32 [facility] Platelet countOrdered By: Hossein Koroma on 02-10-2025 Platelets (Bld) [#/Vol] 329 10*3/uL 150-450 [facility] Potassium measurement (mass/ volume)Ordered By: Torres Koroma on 02-10-2025 Potassium (Unsp spec) [Mass/Vol] 3.3 mmol/L 3.3-5.1 [facility] RBC Auto (Bld) [#/Vol]Ordere d By: Torres Koroma on 02-10-2025 RBC (Bld) [#/Vol] 3.95 10*6/uL Low 4.2-5.4 [facility] Screening urine fentanyl lloyd surementOrdered By: Torres Koroma on 02-10-2025 fentaNYL Screen Ql (U) Negative [facility] Serum creatinine measurement (mass/volume)Ordered By: Torres Koroma on 02-10-2025 Creatinine [Mass/Vol] 0.70 mg/dL 0.70-1.20 [facility] Serum globulin measurementOr dered By: Torres Koroma on 02-10-2025 Globulin (S) [Mass/Vol] 2.6 g/dL 2.2-4.2 [facility] Serum glucose measurement (m ass/volume)Ordered By: Torres Koroma on 02-10-2025 Glucose [Mass/Vol] 107 mg/dL High 70-99 [facility] Serum or plasma alanine gatica otransferase (ALT) measurementOrdered By: Torres Koroma on 02-10-2025 ALT [Catalytic activity/Vol] 17 U/L <35 [facility] Serum or plasma albumin sonali urement (mass/volume)Ordered By: Torres Koroma on 02-10-2025 Albumin [Mass/Vol] 4.4 g/dL 3.4-4.8 [facility] Serum or plasma albumin/glob ulin mass ratioOrdered By: Torres Koroma on 02-10-2025 Albumin/Globulin [Mass ratio] 1.7 {ratio} 0.9-2.4 [facility] Serum or plasma alkaline ike sphatase measurementOrdered By: Torres Koroma on 02-10-2025 ALP [Catalytic activity/Vol] 109 U/L High 35-104 [facility] Serum or plasma calcium sonali urement (mass/volume)Ordered By: Torres Koroma on 02-10-2025 Calcium [Mass/Vol] 9.6 mg/dL 7.6-11.0 [facility] Serum or plasma ethanol sonali urement (mass/volume)Ordered By: Torres Koroma on 02-10-2025 Ethanol [Mass/Vol] mg/dL <10.1 [facility] Serum or plasma urea nitroge n measurement (mass/volume)Ordered By: Torres Koroma on 02-10-2025 Urea nitrogen [Mass/Vol] 17 mg/dL 4-19 [facility] Sodium levelOrdered By: Torres Koroma on 02-10-2025 Sodium [Moles/Vol] 140 mmol/L 133-145 [facility] Total proteinOrdered By: Herbert Koroma on 02-10-2025 Protein [Mass/Vol] 7.0 g/dL 5.9-8.4 [facility] Urine Drug Screen ([facility]IST[facility])on 02-10-2025 AMPHETAMINES Negative Normal <1000 ng/mL [facility] Comment on above: Performed By: #### L 500.4050, L505.5000, L100.0100, L501.9100 ####[facility] [address] [place], [place], [id number] BARBITIURATES Negative Normal < 200 ng/mL [facility] Comment on above: Performed By: #### L 500.4050, L505.5000, L100.0100, L501.9100 ####[facility] [address] [place], [place], [id number] BENZODIAZIPINE Negative Normal < 200 ng/mL [facility] Comment on above: Performed By: #### L 500.4050, L505.5000, L100.0100, L501.9100 ####[facility] [address] [place], [address] BUP Ur Drug Scr Negative Normal < 200 ng/mL [facility] Comment on above: Performed By: #### L 500.4050, L505.5000, L100.0100, L501.9100 ####[facility] [address] [place], [address] COCAINE Negative Normal < 300 ng/mL [facility] Comment on above: Performed By: #### L 500.4050, L505.5000, L100.0100, L501.9100 ####[facility] [address] [place], [address] Fentanyl Negative Normal [facility] Comment on above: Performed By: #### L 500.4050, L505.5000, L100.0100, L501.9100 ####[facility] [address] [place], [address] METHADONE Negative Normal < 300 ng/mL [facility] Comment on above: Performed By: #### L 500.4050, L505.5000, L100.0100, L501.9100 ####[facility] [address] [place], [address] OPIATES Negative Normal < 300 ng/mL [facility] Comment on above: Performed By: #### L 500.4050, L505.5000, L100.0100, L501.9100 ####[facility] [address] [place], [address] OXYCODONE Negative Normal < 100 ng/mL [facility] Comment on above: Performed By: #### L 500.4050, L505.5000, L100.0100, L501.9100 ####[facility] [address] [place], [address] PCP Negative Normal < 25 ng/mL [facility] Comment on above: Performed By: #### L 500.4050, L505.5000, L100.0100, L501.9100 ####[facility] [facility] [address] [place], [address] THC Negative Normal < 50 ng/mL [facility] Comment on above: Performed By: #### L 500.4050, L505.5000, L100.0100, L501.9100 ####[facility] [address] [place], [address] Urine phencyclidine (PCP) de tectionOrdered By: Torres Koroma on 02-10-2025 Phencyclidine Ql (U) Negative < 25 ng/mL [facility] White blood cell (WBC) count Ordered By: Torres Koroma on 02-10-2025 WBC (Bld) [#/Vol] 9.4 10*3/uL 4.4-11.0 [facility] Absolute lymphocyte countOrd ered By: Marycarmen Stevens on 02-09-2025 Lymphocytes Auto (Unsp spec) [#/Vol] 3.27 10*3/uL 0.83-4.51 [facility] Anion gap in Serum or Plasma Ordered By: Marycarmen Stevens on 02-09-2025 Anion gap [Moles/Vol] 12 mmol/L 5-15 [facility] Automated lymphocyte count a s percentage of total leukocytesOrdered By: Marycarmen Stevens on 02-09-2025 Lymphocytes/100 WBC Auto (Unsp spec) 46.8 % High 19-41 [facility] BUN/creatinine ratioOrdered By: Marycarmen Stevens on 02-09-2025 Urea nitrogen/Creatinine [Mass ratio] 29.2 mg/mg High 10-20 [facility] Basophil percentageOrdered B y: Marycarmen Stevens on 02-09-2025 Basophils/100 WBC (Bld) 0.7 % 0-1 [facility] Bilirubin, totalOrdered By: Marycarmen Stevens on 02-09-2025 Bilirubin [Mass/Vol] 0.27 mg/dL 0.00-1.30 [facility] CBC W/Diff, Automatedon Absolute Lymph 3.27 X10 3/uL Normal 0.83-4.51 [facility] Comment on above: Performed By: #### L 500.4050, L100.0100 ####[facility] [address] [place], [address] Absolute Neut 2.9 X10 3/uL Normal 2.0-7.7 [facility] Comment on above: Performed By: #### L 500.4050, L100.0100 ####[facility] [address] [place], [address] Basophils/100 WBC (Bld) 0.7 % Normal 0-1 [facility] Comment on above: Performed By: #### L 500.4050, L100.0100 ####[facility] [address] [place], [address] Eosinophils/100 WBC (Bld) 2.7 % Normal 0-5 [facility] Comment on above: Performed By: #### L 500.4050, L100.0100 ####[facility] [address] [place], [address] Erythrocyte distribution width (RBC) [Ratio] 13.0 % Normal 11.6-14.6 [facility] Comment on above: Performed By: #### L 500.4050, L100.0100 ####[facility] [address] [place], [address] Hematocrit (Bld) [Volume fraction] 38.2 % Normal 37-47 [facility] Comment on above: Performed By: #### L 500.4050, L100.0100 ####[facility] [address] [place], [address] Hemoglobin (Bld) [Mass/Vol] 12.6 g/dL Normal 12.0-15.0 [facility] Comment on above: Performed By: #### L 500.4050, L100.0100 ####[facility] [address] [place], [address] IG% 0.300 Normal 0.0-0.9 [facility] Comment on above: Result Comment: IG% - Immature Granulocytes (promyelocytes, myelocytes andmetamyelocytes) > 1% indicates that a LEFT SHIFT is Present. Performed By: #### L 500.4050, L100.0100 ####[facility] [address] [place], [address] Lymphocytes/100 WBC (Bld) 46.8 % High 19-41 [facility] Comment on above: Performed By: #### L 500.4050, L100.0100 ####[facility] [address] [place], [address] MCH (RBC) [Entitic mass] 32.3 pg High 27.0-32.0 [facility] Comment on above: Performed By: #### L 500.4050, L100.0100 ####[facility] [address] [place], [address] MCHC (RBC) [Mass/Vol] 33.0 g/dL Normal 32-36 [facility] Comment on above: Performed By: #### L 500.4050, L100.0100 ####[facility] [address] [place], [address] MCV (RBC) [Entitic vol] 97.9 fL Normal 81-99 [facility] Comment on above: Performed By: #### L 500.4050, L100.0100 ####[facility] [address] [place], [address] Monocytes/100 WBC (Bld) 7.9 % Normal 0-10 [facility] Comment on above: Performed By: #### L 500.4050, L100.0100 ####[facility] [address] [place], [address] Neutrophils/100 WBC (Bld) 41.6 % Low 47-70 [facility] Comment on above: Performed By: #### L 500.4050, L100.0100 ####[facility] [address] [place], [address] Nucleated RBC (Bld) [#/Vol] 0 10*3/uL Normal 0-5 [facility] Comment on above: Performed By: #### L 500.4050, L100.0100 ####[facility] [address] [place], [address] Platelet mean volume (Bld) [Entitic vol] 9.2 fL Normal 6.2-12.0 [facility] Comment on above: Performed By: #### L 500.4050, L100.0100 ####[facility] [address] [place], [address] Platelets (Bld) [#/Vol] 346 10*3/uL Normal 150-450 [facility] Comment on above: Performed By: #### L 500.4050, L100.0100 ####[facility] [address] [place], [address] RBC (Bld) [#/Vol] 3.90 10*6/uL Low 4.2-5.4 [facility] Comment on above: Performed By: #### L 500.4050, L100.0100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 Appendectomy Cholecystectomy Knee Surgery left great toe surgery SOCIAL HISTORY ED COURSE MEDICATIONS GIVEN IN EMERGENCY DEPARTMENT 01:29 12/18/24 Azithromycin (Zithromax) PO 500 mg IV SITE INFORMATION INTAKE OUTPUT REASSESMENT (most recent) VITAL SIGNS 2 of 3 Visit Overview First Vitals Last Vitals Temp 19:12 12/17/24 98.7 F Temp 19:12 12/17/24 98.7 F BP 19:12 12/17/24 156/83 BP 19:12 12/17/24 156/83 HR 19:12 12/17/24 104 HR 19:12 12/17/24 104 RR 19:12 12/17/24 16 RR 19:12 12/17/24 16 O2 Sat 19:12 12/17/24 100% O2 Sat 19:12 12/17/24 100% Pain 19:12 12/17/24 6 Pain 19:12 12/17/24 6 ETCO2 19:12 12/17/24 ETCO2 19:12 12/17/24 GCS 19:12 12/17/24 GCS 19:12 12/17/24 RTS 19:12 12/17/24 RTS 19:12 12/17/24 PROCEDURES NURSING INTERVENTIONS LABS / STUDIES LABS / STUDIES ORDERED Acetaminophen Level Blood Alcohol - ETOH CBC w Diff Chest 1V CMP Drug Screen Urine Medic EKG - ED Flu Swab (Influenzae AAg) Rapid COVID (SARS) ANTIGEN TEST Rapid COVID (SARS) ANTIGEN TEST Rapid Strep Screen Salicylate Level Urinalysis CLINICAL IMPRESSION BACTERIAL BRONCHOPNEUMONIA. (CLINICAL PNEUMONIA) CHRONIC PSYCHOSIS WITH PARANOIA 3 of 3 Normal [facility] ED VITALS FLOW SHEETon 12-18 ED VITALS FLOW SHEET Vitals Vital Sign Flow Sheet [address] [place] [address] [phone] 12/17/2024 Patient: BEBETO DEJESUS Sex: Female : 1950 Age: 74y Measurements Wt: 108.9 kg, Ht/Federico: 65.0 in, BMI: 39.94 Measured Time BP MAP HR RR O2Sat ETCO2 Temp Pain GCS RTS 19:12 12/17/2024 156/83 107 104 16 100% 98.7 F 6 1 of 1 Normal [facility] ACETAMINOPHENon 12-17-2024 ACETAMINOPHEN <0.0 Low 10.0 - 30.0 [facility] Comment on above: Performed By: #### 2 21686 #### [facility],[address] [place] [address] ALCOHOL-BLOOD MEDICALon Ethanol [Mass/Vol] 3 mg/dL Normal 0 - 50 [facility] Comment on above: Performed By: #### 2 32628 #### [facility],[address] [place] [address] CBC + DIFFon 12-17-2024 Baso # 0.02 x10EE3/UL Normal 0.00 - 0.10 [facility] Comment on above: Performed By: #### 2 60932 #### [facility],[address] [place] [address] Basophils/100 WBC (Bld) 0.2 % Normal 0.0 - 2.0 [facility] Comment on above: Performed By: #### 2 93571 #### [facility],[address] [place] [address] CBC + DIFF Normal [facility] Comment on above: Result Comment: CBC- COMPLETE BLOOD COUNT Performed By: #### 2 67684 #### [facility],[address] [place] [address] EO # 0.19 x10EE3/UL Normal 0.00 - 0.50 [facility] Comment on above: Performed By: #### 2 21609 #### [facility],[address] [place], [place] [id number] Eosinophils/100 WBC (Bld) 2.0 % Normal 0.0 - 7.0 [facility] Comment on above: Performed By: #### 2 85817 #### [facility],[address] [place] [address] Erythrocyte distribution width (RBC) [Ratio] 13.4 % Normal 12.0 - 15.6 [facility] Comment on above: Performed By: #### 2 95285 #### [facility],[address] [place] [address] Hematocrit (Bld) [Volume fraction] 36.7 % Normal 34.0 - 46.0 [facility] Comment on above: Performed By: #### 2 83031 #### [facility],[address] [place] [address] Hemoglobin (Bld) [Mass/Vol] 12.6 g/dL Normal 12.0 - 16.0 [facility] Comment on above: Performed By: #### 2 44316 #### [facility],[address] [place] [address] Lymph # 4.21 x10EE3/UL High 0.80 - 2.80 [facility] Comment on above: Performed By: #### 2 12748 #### [facility],[address] [place] [address] Lymphocytes/100 WBC (Bld) 45.1 % High 20.0 - 45. 0 [facility] Comment on above: Performed By: #### 2 82312 #### [facility],[address] [place] [address] MANUAL DIFF N/A Normal [facility] Comment on above: Performed By: #### 2 30021 #### [facility],[address] [place] [address] MCH (RBC) [Entitic mass] 33 pg Normal 27 - 33 [facility] Comment on above: Performed By: #### 2 44548 #### [facility],[address] [place] [address] MCHC 34 X10 3 Normal 32 - 36 [facility] Comment on above: Performed By: #### 2 79968 #### [facility],[address] [place] [address] MCV (RBC) [Entitic vol] 95 fL Normal 80 - 99 [facility] Comment on above: Performed By: #### 2 71693 #### [facility],[address] [place] [address] [place] # 0.62 x10EE3/UL Normal 0.20 - 1.00 [facility] Comment on above: Performed By: #### 2 26182 #### [facility],[address] [place] [address] MONOS % 6.7 % Normal 0.0 - 10.0 [facility] Comment on above: Performed By: #### 2 01424 #### [facility],[address] [place] [address] Morphology [place] (Bld) [Interp] N/A Normal [facility] Comment on above: Performed By: #### 2 72619 #### [facility],[address] [place] [address] Neut # 4.30 x10EE3/UL Normal 1.50 - 7.10 [facility] Comment on above: Performed By: #### 2 25395 #### [facility],[address] [place] [address] Neutrophils/100 WBC (Bld) 46.0 % Normal 46.0 - 76. 0 [facility] Comment on above: Performed By: #### 2 68763 #### [facility],[address] [place] [address] PLATELET 306 x10EE3/UL Normal 150 - 450 [facility] Comment on above: Performed By: #### 2 37103 #### [facility],[address] [place] [address] Platelet mean volume (Bld) [Entitic vol] 7.3 fL Normal 6.6 - 10.5 [facility] Comment on above: Result Comment: AUTO MATED DIFFERENTIAL Performed By: #### 2 84038 #### [facility],[address] [place] [address] RBC 3.85 x 10EE6/UL Low 4.10 - 5.30 [facility] Comment on above: Performed By: #### 2 28172 #### [address] [address] WBC 9.3 x 10EE3/UL Normal 4.5 - 10.8 [facility] Comment on above: Performed By: #### 2 66147 #### [facility],[address] [place] [address] CHEST 1 VIEWon 12-17-2024 CHEST 1 VIEW [place] [address] Patient: BEBETO DEJESUS Phone#: : 1950 Age: 74 Gender: F Pt. Type: ER Account: [id number] Location: 2 Ordering: ALEXANDRA VASQUEZ Exam Date: 12/17/2024/20:59 Family Phys: Charge Code: [id number] Physician: [place] Order #: [id number] Dose#: PROCEDURE: X-RAY CHEST 1 VIEW COMPARISON: None. INDICATIONS: Sore throat. FINDINGS: LUNGS: Right basilar linear atelectasis.. No significant pulmonary parenchymal abnormalities. VASCULATURE: Normal. Unremarkable pulmonary vasculature. CARDIAC: Normal. No cardiac silhouette abnormality or cardiomegaly. MEDIASTINUM: Calcification of the aortic arch is present. PLEURA: Normal. No effusion or pleural thickening. BONES: Deformity the left humeral neck consistent with fracture of questionable age. OTHER: Negative. CONCLUSION: 1. There is no evidence of acute pulmonary abnormality. 2. Fracture of questionable age involving the left humeral neck. Dictated by: Tsering Perera MD on 12/17/2024 at 21:32 Approved by: Tsering Perera MD on 12/17/2024 at 21:34 Normal [facility] CMP with eGFRon 12-17-2024 AGE 74 years Normal [facility] Comment on above: Performed By: #### 2 52616 #### [facility],[address] [place] [address] Albumin [Mass/Vol] 4.1 g/dL Normal 3.4 - 5.0 [facility] Comment on above: Performed By: #### 2 71900 #### [facility],[address] [place] [address] Albumin/Globulin [Mass ratio] 1.6 {ratio} Normal 0.9 - 1.6 [facility] Comment on above: Performed By: #### 2 75659 #### [facility],[address] [place] [address] ALK PHOS 104 U/L Normal 46 - 116 [facility] Comment on above: Performed By: #### 2 28748 #### [facility],[address] [place] [address] 16873 ALT [Catalytic activity/Vol] 30 U/L Normal 16 - 63 [facility] Comment on above: Performed By: #### 2 80456 #### [facility],[address] [place] [address]463 Anion gap [Moles/Vol] 15 mmol/L Normal 10 - 20 [facility] Comment on above: Performed By: #### 2 68527 #### [facility],[address] [place] [address] 25876 AST [Catalytic activity/Vol] 21 U/L Normal 13 - 39 [facility] Comment on above: Performed By: #### 2 30288 #### [facility],[address] [place] [address]70 B/C RATIO 27 ratio Normal 0 - 30 [facility] Comment on above: Performed By: #### 2 62461 #### [facility],[address] [place] [address] 28196 Bilirubin [Mass/Vol] 0.6 mg/dL Normal 0.2 - 1.0 [facility] Comment on above: Performed By: #### 2 34277 #### [facility],[address] [place] [address] 32963 Calcium [Mass/Vol] 9.2 mg/dL Normal 8.5 - 10.1 [facility] Comment on above: Performed By: #### 2 58901 #### [facility],[address] [place] [address] 40100 Chloride [Moles/Vol] 107 mmol/L Normal 98 - 107 [facility] Comment on above: Performed By: #### 2 00700 #### [facility],[address] [place] [address] 53486 CMP with eGFR Normal [facility] Comment on above: Result Comment: COMP REHENSIVE METABOLIC PANEL Performed By: #### 2 75831 #### [facility],[address] [place] [address] 04555 CO2 [Moles/Vol] 25.8 mmol/L Normal 21.0 - 32.0 [facility] Comment on above: Performed By: #### 2 14038 #### [facility],[address] [place] [address] 50021 Creatinine [Mass/Vol] 0.78 mg/dL Normal 0.55 - 1.02 [facility] Comment on above: Performed By: #### 2 94959 #### [facility],[address] [place] [address]24 GFR/1.73 sq M.predicted among non-blacks MDRD (S/P/Bld) [Vol rate/Area] mL/min/{1.73_m2} Normal 60 - 999 [facility] Comment on above: Performed By: #### 2 00771 #### [facility],[address] [place] [address] 91625 Result Comment: ACCO RDING TO THE NATIONAL KIDNEY DISEASE EDUCATION PROGRAM(NKDE), A NORMAL eGFR IS A VALUE GREATER THAN OR EQUAL TO 60 ML/MIN/1.73 SQ METERS. CHRONIC KIDNEY DISEASE: <60mL/MIN/1.73 SQ METERS KIDNEY FAILURE: <15mL/MIN/1.73 SQ METERS THIS TEST SHOULD ONLY BE USED FOR PATIENTS 18 YEARS OF AGE AND OLDER. Globulin (S) [Mass/Vol] 2.5 g/dL Normal 1.5 - 3.8 [facility] Comment on above: Performed By: #### 2 53311 #### [address] [address] Glucose [Mass/Vol] 99 mg/dL Normal 74 - 106 [facility] Comment on above: Performed By: #### 2 89745 #### [address] [address] Potassium [Moles/Vol] 3.3 mmol/L Low 3.5 - 5.1 [facility] Comment on above: Performed By: #### 2 44689 #### [facility],[address] [place] [address] 00293 Protein [Mass/Vol] 6.6 g/dL Normal 6.4 - 8.2 [facility] Comment on above: Performed By: #### 2 78712 #### [address] [address] Sodium [Moles/Vol] 144 mmol/L Normal 136 - 145 [facility] Comment on above: Performed By: #### 2 46670 #### [address] [address] Urea nitrogen [Mass/Vol] 21 mg/dL High 7 - 18 [facility] Comment on above: Performed By: #### 2 50856 #### [facility],[address] [place] [address] CORONAVIRUS (SARS) ANTIGEN T MAGUIon 12-17-2024 EXTERNAL QC DONE? YES Normal [facility] Comment on above: Performed By: #### 2 89640 #### [facility],[address] [place] [address] INTERNAL CONTROL PASS Normal [facility] Comment on above: Performed By: #### 2 60980 #### [facility],[address] [place] [address] SARS ANTIGEN Negative Normal NORMAL: NEGATIVE [facility] Comment on above: Performed By: #### 2 66700 #### [facility],[address] [place] [address] SEND TO ? NO Normal [facility] Comment on above: Result Comment: SARS -CoV-2 THIS TEST IS BEING USED UNDER THE FDA EUA PROCEDURE. THIS ASSAY HAS BEEN VALIDATED AT [facility] FOR USE WITH NASAL AND NASOPHARYNGEAL SWAB SPECIMENS. INTERPRETIVE DATA TEST RESULTS SHOULD ALWAYS BE CONSIDERED IN THE CONTEXT OF CLINICAL OBSERVATIONS AND EPIDEMIOLOGICAL DATA IN MAKING FINAL DIAGNOSIS AND PATIENT MANAGEMENT DECISIONS. PATIENT MANAGEMENT SHOULD FOLLOW CURRENT CDC GUIDELINES. THE SCAR SARS ANTIGEN DRISS DOES NOT DIFFERENTIATE BETWEEN SARS-CoV & SARS-CoV-2. A POSITIVE TEST RESULT INDICATES THE PRESENCE OF SARS-CoV-2 NUCLEOCAPSID PROTEIN ANTIGEN, AND THE PATIENT IS INFECTED WITH THE VIRUS AND PRESUMED TO BE CONTAGIOUS. A NEGATIVE TEST RESULT FOR THIS TEST MEANS THAT SARS-CoV-2 NUCLEOCAPSID PROTEIN ANTIGEN WAS NOT PRESENT IN THE SPECIMEN ABOVE THE LIMIT OF DETECTION. HOWEVER, A NEGATIVE RESULT DOES NOT RULE OUT COVID-19 AND SHOULD NOT BE USED THE SOLE BASIS FOR TREATMENT OR PATIENT MANAGEMENT DECISIONS. A NEGATIVE RESULT DOES NOT EXCLUDE THE POSSIBILITY OF COVID-19. NEGATIVE RESULTS, FROM PATIENTS WITH SYMPTOM ONSET BEYOND FIVE DAYS, SHOULD BE TREATED PRESUMPTIVE AND CONFIRMATION WITH A MOLECULAR ASSAY, IF NECESSARY, FOR PATIENT MANAGEMENT, MAY BE PERFORMED. WHEN DIAGNOSTIC TESTING IS NEGATIVE, THE POSSIBLILTY OF A FALSE NEGATIVE RESULT SHOULD BE CONSIDERED IN THE CONTEXT OF A PATIENT'S RECENT EXPOSURES AND THE PRESENCE OF CLINICAL SIGNS AND SYMPTOMS CONSISTENT WITH COVID-19. THE POSSIBILITY OF A FALSE NEGATIVE RESULT SHOULD ESPECIALLY BE CONSIDERED IF THE PATIENT'S RECENT EXPOSURES OR CLINICAL PRESENTATION INDICATE THAT COVID-19 IS LIKELY, AND DIAGNOSTIC TESTS FOR OTHER CAUSES OF ILLNESS (e.g., OTHER RESPIRATORY ILLNESS) ARE NEGATIVE. IF COVID-19 IS STILL SUSPECTED BASED ON EXPOSURE HISTORY TOGETHER WITH OTHER CLINICAL FINDINGS, RE-TESTING SHOULD BE CONSIDERED BY HEALTHCARE PROVIDERS IN CONSULTATION WITH PUBLIC HEALTH AUTHORITIES. Performed By: #### 2 31930 #### [facility],[address] [place] [address]70 INFLUENZA VIRUS RAPID A/Bon 12-17-2024 INFLUENZA VIRUS RAPID A/B INFLUENZA A NEGATIVE INFLUENZA B NEGATIVE INTERNAL NEG QC PASS INTERNAL POS QC PASS EXTERNAL QC DONE? YES SEND TO IC? NO A NEGATIVE TEST RESULT DOES NOT EXCLUDE INFECTION WITH INFLUENZA A OR B. THEREFORE, THE RESULTS OBTAINED FROM THIS FLU TEST SHOULD BE USED IN CONJUCTION WITH CLINICAL FINDINGS TO MAKE AN ACCURATE DIAGNOSIS. A POSITIVE RESULT DOES NOT RULE OUT CO-INFECTIONS WITH OTHER PATHOGENS OR IDENTIFY ANY SPECIFIC INFLUENZA A VIRUS SUBTYPE.CO-INFECTION WITH INFLUENZA A AND B IS RARE. IT IS RECOMMENDED THAT DUAL POSITIVE RESULTS BE CONFIRMED BY VIRAL CULTURE OR AN FDA-CLEARED INFLUENZA A AND B MOLECULAR ASSAY. INDIVIDUALS WHO HAVE RECEIVED NASALLY ADMINISTERED INFLUENZA A VACCINE MAY TEST POSITIVE IN COMMERCIALLY AVAILABLE INFLUENZA RAPID DIAGNOSTIC TESTS FOR UP TO THREE DAYS. RESULT CRITICAL? NO Normal [facility] Comment on above: Performed By: #### 2 67889 #### [address] [address] RAPID STREPon 12-17-2024 S. pyogenes Ag IA Ql (Unsp spec) Rapid Strep NEG:GRP A STREP INTERNAL QC PASS EXTERNAL QC DONE? YES Normal [facility] Comment on above: Performed By: #### 2 28420 ####[facility],[address] [place] [address] SALICYLATEon 12-17-2024 SALICYLATE 1.5 mg/dl Low 2.8 - 20.0 [facility] Comment on above: Result Comment: *PAT IENTS TREATED WITH SULFASALAZINE MAY GENERATE A FALSE HIGH RESULT FOR SALICYLATE. *PATIENTS TREATED WITH SULFAPYRIDINE MAY GENERATE A FALSE LOW RESULT FOR SALICYLATE. Performed By: #### 2 92614 ####[facility],[address] [place] [address]779 THROAT CULTURE, ROUTINE [AUL T]on 12-17-2024 THROAT CULTURE, ROUTINE [LUCILLE] THROAT CULTURE, ROUTINE [LUCILLE] _THROAT CULTURE, ROUTINE_ GO TO [employer] REPORTS AND ATTACHMENTS FOR SCANNED REPORT 12/21/24.0919.DNP.COMP LETE Normal [facility] Comment on above: Performed By: #### 2 03876 #### [facility],[address] [place] [address] 41006 DOUGLAS + Protein Elect, Serumon 12-14-2024 Albumin [Mass/Vol] 4.1 g/dL Normal 2.9-4.4 [facility] Comment on above: Order Comment: NUNK Performed By: #### L 100.0100, L3130.0010, L500.4050, L504.2610, L3100.3425 ####[facility] [address] [place], [address] Albumin/Globulin [Mass ratio] 1.4 {ratio} Normal 0.7-1.7 [facility] Comment on above: Order Comment: NUNK Performed By: #### L 100.0100, L3130.0010, L500.4050, L504.2610, L3100.3425 ####[facility] [address] [place], [address] BYOTU-[id number] 0.3 g/dL Normal 0.0-0.4 [facility] Comment on above: Order Comment: NUNK Performed By: #### L 100.0100, L3130.0010, L500.4050, L504.2610, L3100.3425 ####[facility] [address] [place], [address] JKKGV-1-IUHS 0.8 g/dL Normal 0.4-1.0 [facility] Comment on above: Order Comment: NUNK Performed By: #### L 100.0100, L3130.0010, L500.4050, L504.2610, L3100.3425 ####[facility] [address] [place], [address] BETA GLOBULIN 1.3 g/dL Normal 0.7-1.3 [facility] Comment on above: Order Comment: NUNK Performed By: #### L 100.0100, L3130.0010, L500.4050, L504.2610, L3100.3425 ####[facility] [address] [place], [address] GAMMA GLOBULIN 0.8 g/dL Normal 0.4-1.8 [facility] Comment on above: Order Comment: NUNK Performed By: #### L 100.0100, L3130.0010, L500.4050, L504.2610, L3100.3425 ####[facility] [address] [place], [address] Globulin (S) [Mass/Vol] 3.1 g/dL Normal 2.2-3.9 [facility] Comment on above: Order Comment: NUNK Performed By: #### L 100.0100, L3130.0010, L500.4050, L504.2610, L3100.3425 ####[facility] [address] [place], [address] DOUGLAS RESULT,S Comment Abnormal . [facility] Comment on above: Order Comment: NUNK Result Comment: Immu nofixation shows IgG monoclonal protein with lambdalight chain specificity. Performed By: #### L 100.0100, L3130.0010, L500.4050, L504.2610, L3100.3425 ####[facility] [address] [place], [address] IMMUNOGLOB A QN 289 mg/dL Normal 64-422 [facility] Comment on above: Order Comment: NUNK Performed By: #### L 100.0100, L3130.0010, L500.4050, L504.2610, L3100.3425 ####[facility] [address] [place], [address] IMMUNOGLOB G QN 831 mg/dL Normal 586-1602 [facility] Comment on above: Order Comment: NUNK Performed By: #### L 100.0100, L3130.0010, L500.4050, L504.2610, L3100.3425 ####[facility] [address] [place], [address] IMMUNOGLOB M QN 44 mg/dL Normal 26-217 [facility] Comment on above: Order Comment: NUNK Performed By: #### L 100.0100, L3130.0010, L500.4050, L504.2610, L3100.3425 ####[facility] [address] [place], [address] M-Rajiv 0.2 g/dL Abnormal Not Observed [facility] Comment on above: Order Comment: NUNK Performed By: #### L 100.0100, L3130.0010, L500.4050, L504.2610, L3100.3425 ####[facility] [address] [place], [address] NOTE: Comment Normal . [facility] Comment on above: Order Comment: NUNK Result Comment: Prot ein electrophoresis scan will follow via computer,mail, or paper sales representative delivery. Performed By: #### L 100.0100, L3130.0010, L500.4050, L504.2610, L3100.3425 ####[facility] [address] [place], [address] Protein [Mass/Vol] 7.2 g/dL Normal 6.0-8.5 [facility] Comment on above: Order Comment: NUNK Performed By: #### L 100.0100, L3130.0010, L500.4050, L504.2610, L3100.3425 ####[facility] [address] [place], [address] [place] Lambda Light Chainson 12-14-2024 FR KAPPA LT CHN 12.0 mg/L Normal 3.3-19.4 [facility] Comment on above: Performed By: #### L 100.0100, L3130.0010, L500.4050, L504.2610, L3100.3425 ####[facility] [address] [place], [address] FR LAMBDA LT CH 17.3 mg/L Normal 5.7-26.3 [facility] Comment on above: Performed By: #### L 100.0100, L3130.0010, L500.4050, L504.2610, L3100.3425 ####[facility] [address] [place], [place], [phone] KAPPA/LAMBDA % 0.69 Normal 0.26-1.65 [facility] Comment on above: Result Comment: Perf ormed at: - [facility] [place] [id number] Director: Brian Bautista PhD, Phone: [phone] Performed By: #### L 100.0100, L3130.0010, L500.4050, L504.2610, L3100.3425 ####[facility] [address] [place], [place], [address] L3410.9992on 12-14-2024 [facility] Misc. COMMENT Normal . [facility] Comment on above: Order Comment: [id number] 9CTELOPEPTIDE TIGER FREEZE Result Comment: Test Ordered: [id number] C-Telopeptide, SerumC-Telopeptide, Serum 317 pg/mL ES Reference Range: .Reference Range:Premenopausal Women: 34 - 635Postmenopausal Women: 34 - 1037Performed at: ES - [facility] [address] [place], [place] [id number] Director: Gurpreet Haney MD, Phone: [phone] at: - [facility] [address] [place], [place] [id number] Director: Brian Bautista PhD, Phone: [phone] Performed By: #### L 502.0300, L500.2500, L3410.9992, L3600.3025 ####[facility] [address] [place], [address] L3410.9992on 12-13-2024 [facility] [place] COM[place] Normal . [facility] Comment on above: Order Comment: [id number] 3NTELOPEPTIDE URINE REF Result Comment: Test Ordered: [id number] N-Telopeptide, UrineN-Telopeptide 713 nmol BCE BN Reference Range: Not Estab.Creatinine, Urine 68.7 mg/dL CB Reference Range: Not Estab.N-Telo/Creat. Ratio 117 [H ] BN Units of Measure: nM BCE/mM Cr Reference Range: 0-89Interpretive Guide: Comment BN Reference Range: .The N-telopeptide and Creatinine are used to calculatethe N-telo/Creat. Ratio which is referred to as NTx.Suggested guidelines for the clinical use of NTx are asfollows: 1. Menopausal Women not on Hormone Replacement Therapy (HRT): Women with a baseline NTx value >38 are at significant risk for a decrease in bone mineral density (BMD) after 1 year compared to women on HRT. The probability of a decline in BMD increases with NTx value as follows: (1): Baseline NTx Probability of Decrease in BMD 18- 38 1.4 p=0.28 38- 51 2.5 p=0.03 51- 67 3.8 p=0.0006 67-188 17.3 p=0.28200. Menopausal Women Receiving Antiresorptive Therapy: The probability that treatment is effective after three months is increased when the measured NTx value is or=30% from baseline.[1]3. Patients with Paget's Disease of Bone: The probability that treatment is effective after one month is increased when the measured NTx value is within the reference range, or NTx has decreased >or=30% from baseline.[2] 1. Kathie CH, Pereira NH, Fernando GS, et al. Am J Med, 102:29-37,1996. (1):M75, 1995. 2. Bone H, Kamlesh J, et al. J Bone Min Res.11(1):M75Performed at: [facility] [employer] [id number] Director: Rosalva Ross MD, Phone: [phone] at: [facility] [id number] Director: Brian Bautista PhD, Phone: [phone] Performed By: #### L 3410.9992 ####[facility] [address] [place], [address] L3600.3025on 12-11-2024 Calcium [Mass/Vol] 4.7 mg/dL Normal Not Estab. [facility] Comment on above: Result Comment: Perf ormed at: [facility] [id number] Director: Brian Bautista PhD, Phone: [phone] Performed By: #### L 502.0300, L500.2500, L3410.9992, L3600.3025 ####[facility] [address] [place], [place], [address] 24 hour urine calcium measur ement (mass/volume)Ordered By: Raghav Ramon on 12-10-2024 Calcium (24H U) [Mass/Vol] 4.7 mg/dL Not Estab. [facility] Absolute lymphocyte countOrd ered By: Dontrell Torres on 12-10-2024 Lymphocytes Auto (Unsp spec) [#/Vol] 1.32 10*3/uL 0.83-4.51 [facility] Albumin Elph [Mass/Vol]Order ed By: Dontrell Torres on 12-10-2024 Albumin [Mass/Vol] 4.1 g/dL 2.9-4.4 [facility] Anion gap in Serum or Plasma Ordered By: Raghav Ramon on 12-10-2024 Anion gap [Moles/Vol] 14 mmol/L 5- [facility] Automated lymphocyte count a s percentage of total leukocytesOrdered By: Dontrell Torres on 12-10-2024 Lymphocytes/100 WBC Auto (Unsp spec) 22.6 % [facility] BUN/creatinine ratioOrdered By: Raghav Ramon on 12-10-2024 Urea nitrogen/Creatinine [Mass ratio] 27.0 mg/mg High 10- [facility] Basic Metabolic Profile (BMP )on 12-10-2024 BUN/CRE 27.0 RATIO High 05-30 [facility] Comment on above: Performed By: #### L 502.0300, L500.2500, L3410.9992, L3600.3025 ####[facility] [address] [place], [address] Calcium [Mass/Vol] 9.5 mg/dL Normal 7.6-11.0 [facility] Comment on above: Performed By: #### L 502.0300, L500.2500, L3410.9992, L3600.3025 ####[facility] [address] [place], [address] Chloride [Moles/Vol] 102 mmol/L Normal 98-108 [facility] Comment on above: Performed By: #### L 502.0300, L500.2500, L3410.9992, L3600.3025 ####[facility] [address] [place], [address] CO2 [Moles/Vol] 21.7 mmol/L Normal 21.0-32.0 [facility] Comment on above: Performed By: #### L 502.0300, L500.2500, L3410.9992, L3600.3025 ####[facility] [address] [place], [address] Creatinine [Mass/Vol] 0.73 mg/dL Normal 0.70-1.20 [facility] Comment on above: Performed By: #### L 502.0300, L500.2500, L3410.9992, L3600.3025 ####[facility] [address] [place], [address] GAP 14 Normal 5-15 [facility] Comment on above: Performed By: #### L 502.0300, L500.2500, L3410.9992, L3600.3025 ####[facility] [address] [place], [address] GFR/1.73 sq M.predicted among non-blacks MDRD (S/P/Bld) [Vol rate/Area] 88 mL/min/{1.73_m2} Normal >60 [facility] Comment on above: Result Comment: mL/m in/1.73m2 CKD-EPI Creatinine Equation (2020) Performed By: #### L 502.0300, L500.2500, L3410.9992, L3600.3025 ####[facility] [address] [place], [address] Glucose [Mass/Vol] 191 mg/dL High 70-99 [facility] Comment on above: Performed By: #### L 502.0300, L500.2500, L3410.9992, L3600.3025 ####[facility] [address] [place], [address] Basophil percentageOrdered B y: Dontrell Torres on 12-10-2024 Basophils/100 WBC (Bld) 0.3 % 0-1 [facility] Bilirubin, totalOrdered By: Dontrell Torres on 12-10-2024 Bilirubin [Mass/Vol] 0.36 mg/dL 0.00-1.30 [facility] CBC W/Diff, Automatedon Absolute Lymph 1.32 X10 3/uL Normal 0.83-4.51 [facility] Comment on above: Performed By: #### L 100.0100, L3130.0010, L500.4050, L504.2610, L3100.3425 ####[facility] [address] [place], [address] Absolute Neut 4.1 X10 3/uL Normal 2.0-7.7 [facility] Comment on above: Performed By: #### L 100.0100, L3130.0010, L500.4050, L504.2610, L3100.3425 ####[facility] [address] [place], [address] Basophils/100 WBC (Bld) 0.3 % Normal 0-1 [facility] Comment on above: Performed By: #### L 100.0100, L3130.0010, L500.4050, L504.2610, L3100.3425 ####[facility] [address] [place], [address] Eosinophils/100 WBC (Bld) 0.3 % Normal 0-5 [facility] Comment on above: Performed By: #### L 100.0100, L3130.0010, L500.4050, L504.2610, L3100.3425 ####[facility] [address] [place], [address] Erythrocyte distribution width (RBC) [Ratio] 12.7 % Normal 11.6-14.6 [facility] Comment on above: Performed By: #### L 100.0100, L3130.0010, L500.4050, L504.2610, L3100.3425 ####[facility] [address] [place], [address] Hematocrit (Bld) [Volume fraction] 39.5 % Normal 37-47 [facility] Comment on above: Performed By: #### L 100.0100, L3130.0010, L500.4050, L504.2610, L3100.3425 ####[facility] [address] [place], [address] Hemoglobin (Bld) [Mass/Vol] 13.2 g/dL Normal 12.0-15.0 [facility] Comment on above: Performed By: #### L 100.0100, L3130.0010, L500.4050, L504.2610, L3100.3425 ####[facility] [address] [place], [address] IG% 0.500 Normal 0.0-0.9 [facility] Comment on above: Result Comment: IG% - Immature Granulocytes (promyelocytes, myelocytes andmetamyelocytes) > 1% indicates that a LEFT SHIFT is Present. Performed By: #### L 100.0100, L3130.0010, L500.4050, L504.2610, L3100.3425 ####[facility] [address] [place], [address] Lymphocytes/100 WBC (Bld) 22.6 % Normal 19-41 [facility] Comment on above: Performed By: #### L 100.0100, L3130.0010, L500.4050, L504.2610, L3100.3425 ####[facility] [address] [place], [address] MCH (RBC) [Entitic mass] 32.0 pg Normal 27.0-32.0 [facility] Comment on above: Performed By: #### L 100.0100, L3130.0010, L500.4050, L504.2610, L3100.3425 ####[facility] [address] [place], [address] MCHC (RBC) [Mass/Vol] 33.4 g/dL Normal 32-36 [facility] Comment on above: Performed By: #### L 100.0100, L3130.0010, L500.4050, L504.2610, L3100.3425 ####[facility] [address] [place], [address] MCV (RBC) [Entitic vol] 95.9 fL Normal 81-99 [facility] Comment on above: Performed By: #### L 100.0100, L3130.0010, L500.4050, L504.2610, L3100.3425 ####[facility] [address] [place], [address] Monocytes/100 WBC (Bld) 5.8 % Normal 0-10 [facility] Comment on above: Performed By: #### L 100.0100, L3130.0010, L500.4050, L504.2610, L3100.3425 ####[facility] [address] [place], [address] Neutrophils/100 WBC (Bld) 70.5 % High 47-70 [facility] Comment on above: Performed By: #### L 100.0100, L3130.0010, L500.4050, L504.2610, L3100.3425 ####[facility] [address] [place], [address] Nucleated RBC (Bld) [#/Vol] 0 10*3/uL Normal 0-5 [facility] Comment on above: Performed By: #### L 100.0100, L3130.0010, L500.4050, L504.2610, L3100.3425 ####[facility] [address] [place], [address] Platelet mean volume (Bld) [Entitic vol] 9.1 fL Normal 6.2-12.0 [facility] Comment on above: Performed By: #### L 100.0100, L3130.0010, L500.4050, L504.2610, L3100.3425 ####[facility] [address] [place], [address] Platelets (Bld) [#/Vol] 359 10*3/uL Normal 150-450 [facility] Comment on above: Performed By: #### L 100.0100, L3130.0010, L500.4050, L504.2610, L3100.3425 ####[facility] [address] [place], [address] RBC (Bld) [#/Vol] 4.12 10*6/uL Low 4.2-5.4 [facility] Comment on above: Performed By: #### L 100.0100, L3130.0010, L500.4050, L504.2610, L3100.3425 ####[facility] [address] [place], [address] RDW SD 45.4 fl High 35.1-43.9 [facility] Comment on above: Performed By: #### L 100.0100, L3130.0010, L500.4050, L504.2610, L3100.3425 ####[facility] [address] [place], [address] WBC (Bld) [#/Vol] 5.8 10*3/uL Normal 4.4-11.0 [facility] Comment on above: Performed By: #### L 100.0100, L3130.0010, L500.4050, L504.2610, L3100.3425 ####[facility] [address] [place], [address] Carbon dioxide, total [Moles /volume] in Central venous bloodOrdered By: Raghav Ramon on 12-10-2024 CO2 [Moles/Vol] 21.7 mmol/L 21.0-32.0 [facility] Chloride assayOrdered By: Ky Ramon on 12-10-2024 Chloride [Moles/Vol] 102 mmol/L 98-108 [facility] Comprehensive Metabolic Prof ilon 12-10-2024 Albumin [Mass/Vol] 4.8 g/dL Normal 3.4-4.8 [facility] Comment on above: Order Comment: UNK Performed By: #### L 100.0100, L3130.0010, L500.4050, L504.2610, L3100.3425 ####[facility] [address] [place], [address] Albumin/Globulin [Mass ratio] 1.7 {ratio} Normal 0.9-2.4 [facility] Comment on above: Order Comment: UNK Performed By: #### L 100.0100, L3130.0010, L500.4050, L504.2610, L3100.3425 ####[facility] [address] [place], [address] ALK PHOS 138 U/L High 35-104 [facility] Comment on above: Order Comment: UNK Performed By: #### L 100.0100, L3130.0010, L500.4050, L504.2610, L3100.3425 ####[facility] [address] [place], [address] ALT [Catalytic activity/Vol] 14 U/L Normal <=34 [facility] Comment on above: Order Comment: UNK Performed By: #### L 100.0100, L3130.0010, L500.4050, L504.2610, L3100.3425 ####[facility] [address] [place], [address] AST [Catalytic activity/Vol] 26 U/L Normal <=31 [facility] Comment on above: Order Comment: UNK Performed By: #### L 100.0100, L3130.0010, L500.4050, L504.2610, L3100.3425 ####[facility] [address] [place], [address] Bilirubin [Mass/Vol] 0.36 mg/dL Normal 0.00-1.30 [facility] Comment on above: Order Comment: UNK Performed By: #### L 100.0100, L3130.0010, L500.4050, L504.2610, L3100.3425 ####[facility] [address] [place], [address] BUN/CRE 26.3 RATIO High 10-20 [facility] Comment on above: Order Comment: UNK Performed By: #### L 100.0100, L3130.0010, L500.4050, L504.2610, L3100.3425 ####[facility] [address] [place], [address] Calcium [Mass/Vol] 9.7 mg/dL Normal 7.6-11.0 [facility] Comment on above: Order Comment: UNK Performed By: #### L 100.0100, L3130.0010, L500.4050, L504.2610, L3100.3425 ####[facility] [address] [place], [address] Chloride [Moles/Vol] 101 mmol/L Normal 98-108 [facility] Comment on above: Order Comment: UNK Performed By: #### L 100.0100, L3130.0010, L500.4050, L504.2610, L3100.3425 ####[facility] [address] [place], [address] CO2 [Moles/Vol] 22.5 mmol/L Normal 21.0-32.0 [facility] Comment on above: Order Comment: UNK Performed By: #### L 100.0100, L3130.0010, L500.4050, L504.2610, L3100.3425 ####[facility] [address] [place], [address] Creatinine [Mass/Vol] 0.74 mg/dL Normal 0.70-1.20 [facility] Comment on above: Order Comment: UNK Performed By: #### L 100.0100, L3130.0010, L500.4050, L504.2610, L3100.3425 ####[facility] [address] [place], [address] ECRCL 77.71 ml/min Normal 50-250 [facility] Comment on above: Order Comment: UNK Performed By: #### L 100.0100, L3130.0010, L500.4050, L504.2610, L3100.3425 ####[facility] [address] [place], [address] Performed By: #### L 502.0300, L500.2500, L3410.9992, L3600.3025 ####[facility] [address] [place], [address] GAP 13 Normal 5-15 [facility] Comment on above: Order Comment: UNK Performed By: #### L 100.0100, L3130.0010, L500.4050, L504.2610, L3100.3425 ####[facility] [address] [place], [address] GFR/1.73 sq M.predicted among non-blacks MDRD (S/P/Bld) [Vol rate/Area] 85 mL/min/{1.73_m2} Normal >60 [facility] Comment on above: Order Comment: UNK Result Comment: mL/m in/1.73m2 CKD-EPI Creatinine Equation (2020) Performed By: #### L 100.0100, L3130.0010, L500.4050, L504.2610, L3100.3425 ####[facility] [address] [place], [address] Globulin (S) [Mass/Vol] 2.8 g/dL Normal 2.2-4.2 [facility] Comment on above: Order Comment: UNK Performed By: #### L 100.0100, L3130.0010, L500.4050, L504.2610, L3100.3425 ####[facility] [address] [place], [address] Glucose [Mass/Vol] 193 mg/dL High 70-99 [facility] Comment on above: Order Comment: UNK Performed By: #### L 100.0100, L3130.0010, L500.4050, L504.2610, L3100.3425 ####[facility] [address] [place], [address] Potassium [Moles/Vol] 3.5 mmol/L Normal 3.3-5.1 [facility] Comment on above: Order Comment: UNK Performed By: #### L 100.0100, L3130.0010, L500.4050, L504.2610, L3100.3425 ####[facility] [address] [place], [address] Performed By: #### L 502.0300, L500.2500, L3410.9992, L3600.3025 ####[facility] [address] [place], [address] Sodium [Moles/Vol] 137 mmol/L Normal 133-145 [facility] Comment on above: Order Comment: UNK Performed By: #### L 100.0100, L3130.0010, L500.4050, L504.2610, L3100.3425 ####[facility] [address] [place], [address] Performed By: #### L 502.0300, L500.2500, L3410.9992, L3600.3025 ####[facility] [address] [place], [address] T PROT 7.6 g/dL Normal 5.9-8.4 [facility] Comment on above: Order Comment: UNK Performed By: #### L 100.0100, L3130.0010, L500.4050, L504.2610, L3100.3425 ####[facility] [address] [place], [address] Urea nitrogen [Mass/Vol] 20 mg/dL High 4-19 [facility] Comment on above: Order Comment: UNK Performed By: #### L 100.0100, L3130.0010, L500.4050, L504.2610, L3100.3425 ####[facility] [address] [place], [place], [address] Performed By: #### L 502.0300, L500.2500, L3410.9992, L3600.3025 ####[facility] [address] [place], [place], [id number] Creatinine, Urineon 12-11-19 25 URINE CREAT 76.90 mg/dL Normal 28.00-217.0 0 [facility] Comment on above: Performed By: #### L 502.0300, L500.2500, L3410.9992, L3600.3025 ####[facility] [address] [place], [address] Eosinophil percentageOrdered By: Dontrell Torres on 12-10-2024 Eosinophils/100 WBC (Bld) 0.3 % 0-5 [facility] Erythrocyte distribution wid th ratioOrdered By: Dontrell Torres on 12-10-2024 Erythrocyte distribution width (RBC) [Ratio] 12.7 % 11.6-14.6 [facility] Erythrocyte distribution wid th standard deviationOrdered By: Dontrell Torres on 12-10-2024 Erythrocyte distribution width (RBC) [Ratio] 45.4 fl High 35.1-43.9 [facility] Glomerular filtration rate ( GFR) estimation/1.73 sq m using serum, plasma, or whole bOrdered By: Raghav Ramon on 12-10-2024 GFR/1.73 sq M.predicted among non-blacks MDRD (S/P/Bld) [Vol rate/Area] 88 mL/min/{1.73_m2} >60 [facility] Hematocrit Auto (Bld) [Volum e fraction]Ordered By: Dontrell Torres on 12-10-2024 Hematocrit (Bld) [Volume fraction] 39.5 % 37-47 [facility] Hemoglobin measurementOrdere d By: Dontrell Torres on 12-10-2024 Hemoglobin (Bld) [Mass/Vol] 13.2 g/dL 12.0-15.0 [facility] Immature granulocytes/100 WB C Auto (Bld)Ordered By: Dontrell Torres on 12-10-2024 Immature granulocytes/100 WBC (Bld) 0.500 % 0.0-0.9 [facility] Interpretation of serum or p lasma protein pattern by immunofixation (narrative resultOrdered By: Dontrell oTrres on 12-10-2024 Protein Fractions Immunofixation [place] [Interp] 0.2 g/dL High Not Observed [facility] LDHon 12-10-2024 LDH 266 U/L High 84-246 [facility] Comment on above: Order Comment: UNK1 Performed By: #### L 100.0100, L3130.0010, L500.4050, L504.2610, L3100.3425 ####[facility] [address] [place], [address] MCV (mean corpuscular volume ) determinationOrdered By: Dontrell Torres on 12-10-2024 MCV (RBC) [Entitic vol] 95.9 fL 81-99 [facility] Mean corpuscular hemoglobin (MCH) determinationOrdered By: Dontrell Torres on 12-10-2024 MCH (RBC) [Entitic mass] 32.0 pg 27.0-32.0 [facility] Monocyte percentageOrdered B y: Dontrell Torres on 12-10-2024 Monocytes/100 WBC (Bld) 5.8 % 0-10 [facility] Neutrophil percentageOrdered By: Dontrell Torres on 12-10-2024 Neutrophils/100 WBC (Bld) 70.5 % High 47-70 [facility] No Panel InformationOrdered By: Dontrell Torres on 12-10-2024 Addendum Document Comment . [facility] 26 U/L <32 [facility] Platelet countOrdered By: Licha Torres on 12-10-2024 Platelets (Bld) [#/Vol] 359 10*3/uL 150-450 [facility] Potassium measurement (mass/ volume)Ordered By: Raghav Ramon on 12-10-2024 Potassium (Unsp spec) [Mass/Vol] 3.5 mmol/L 3.3-5.1 [facility] RBC Auto (Bld) [#/Vol]Ordere d By: Dontrell Torres on 12-10-2024 RBC (Bld) [#/Vol] 4.12 10*6/uL Low 4.2-5.4 [facility] Serum creatinine measurement (mass/volume)Ordered By: Raghav Ramon on 12-10-2024 Creatinine [Mass/Vol] 0.73 mg/dL 0.70-1.20 [facility] Serum globulin measurement ( mass/volume)Ordered By: Dontrell Torres on 12-10-2024 Globulin (S) [Mass/Vol] 3.1 g/dL 2.2-3.9 [facility] Serum glucose measurement (m ass/volume)Ordered By: Raghav Ramon on 12-10-2024 Glucose [Mass/Vol] 191 mg/dL High 70-99 [facility] Serum immunoglobulin kappa l ight chains/immunoglobulin lambda light chains mass ratioOrdered By: Dontrell Torres on 12-10-2024 Immunoglobulin light chains.kappa/Immunoglobul in light chains.lambda (S) [Mass ratio] 0.69 0.26-1.65 [facility] Serum or plasma IgA measurem ent (mass/volume)Ordered By: Dontrell Torres on 12-10-2024 IgA [Mass/Vol] 289 mg/dL 64-422 [facility] Serum or plasma IgG measurem ent (mass/volume)Ordered By: Dontrell Torres on 12-10-2024 IgG [Mass/Vol] 831 mg/dL 586-1602 [facility] Serum or plasma alanine gatica otransferase (ALT) measurementOrdered By: Dontrell Torres on 12-10-2024 ALT [Catalytic activity/Vol] 14 U/L <35 [facility] Serum or plasma albumin sonali urement (mass/volume)Ordered By: Dontrell Torres on 12-10-2024 Albumin [Mass/Vol] 4.8 g/dL 3.4-4.8 [facility] Serum or plasma albumin/glob ulin mass ratioOrdered By: Dontrell Torres on 12-10-2024 Albumin/Globulin [Mass ratio] 1.7 {ratio} 0.9-2.4 [facility] Serum or plasma alkaline ike sphatase measurementOrdered By: Dontrell Torres on 12-10-2024 ALP [Catalytic activity/Vol] 138 U/L High 35-104 [facility] Serum or plasma alpha 1 glob ulin measurement by electrophoresis (mass/volume)Ordered By: Dontrell Torres on 12-10-2024 Alpha 1 globulin Elph [Mass/Vol] 0.3 g/dL 0.0-0.4 [facility] Alpha 1 globulin Elph [Mass/Vol] 0.8 g/dL 0.4-1.0 [facility] Serum or plasma beta globuli n measurement by electrophoresis (mass/volume)Ordered By: Dontrell Torres on 12-10-2024 Beta globulin Elph [Mass/Vol] 1.3 g/dL 0.7-1.3 [facility] Serum or plasma calcium sonali urement (mass/volume)Ordered By: Raghav Ramon on 12-10-2024 Calcium [Mass/Vol] 9.5 mg/dL 7.6-11.0 [facility] Serum or plasma gamma globul in measurement by electrophoresis (mass/volume)Ordered By: Dontrell Torres on 12-10-2024 Gamma globulin Elph [Mass/Vol] 0.8 g/dL 0.4-1.8 [facility] Serum or plasma immunoelectr ophoresis interpretation (nominal result)Ordered By: Dontrell Torres on 12-10-2024 Interpretation IEP [Interp] Comment High . [facility] Serum or plasma immunoglobul in kappa light chains measurement (mass/volume)Ordered By: Dontrell Torres on 12-10-2024 Immunoglobulin light chains.kappa [Mass/Vol] 12.0 mg/L 3.3-19.4 [facility] Serum or plasma protein sonali urement (mass/volume)Ordered By: Dontrell Torres on 12-10-2024 Protein [Mass/Vol] 7.2 g/dL 6.0-8.5 [facility] Serum or plasma urea nitroge n measurement (mass/volume)Ordered By: Raghav Ramon on 12-10-2024 Urea nitrogen [Mass/Vol] 20 mg/dL High 4-19 [facility] Sodium levelOrdered By: Willy Ramon on 12-10-2024 Sodium [Moles/Vol] 137 mmol/L 133-145 [facility] Total proteinOrdered By: Gabo Torres on 12-10-2024 Protein [Mass/Vol] 7.6 g/dL 5.9-8.4 [facility] Urine creatinine measurement (mass/volume)Ordered By: Raghav Ramon on 12-10-2024 Creatinine (U) [Mass/Vol] 76.90 mg/dL 28 .00-217.0 0 [facility] White blood cell (WBC) count Ordered By: Dontrell Torres on 12-10-2024 WBC (Bld) [#/Vol] 5.8 10*3/uL 4.4-11.0 [facility] Alcohol, Blood (Medical)-Ser umon 12-09-2024 SERUM ETOH < 10.1 Normal <=10.0 [facility] Comment on above: Result Comment: This test is for medical purposes only. The legaldefinition of intoxication varies according to local law. Performed By: #### L 500.4050, L100.0100, L501.9100, L505.5000 ####[facility] [address] [place], [place], [id number] Amphetamine detection with 1 000 ng/mL as cutoffOrdered By: Raghav Ramon on 12-09-2024 Amphetamines Screen method >1000 ng/mL Ql (U) Negative < 200 ng/mL [facility] Bedside Glucoseon 12-09-2024 FINGERSTICK GLU 111 mg/dL High 74-106 [facility] Comment on above: Result Comment: CHLOE JANEENT OF PATIENT CARE PER NURSING PROTOCOL Performed By: #### L 501.080 ####[facility] [address] [place], [address] Bilirubin Test strip Ql (U)O rdered By: Raghav Ramon on 12-09-2024 Bilirubin Ql (U) Negative Negative [facility] Brain/Head without Contrasto n 12-09-2024 Brain/Head without Contrast Normal [facility] CBC W/Diff, Automatedon 05-0 Absolute Lymph 2.75 X10 3/uL Normal 0.83-4.51 [facility] Comment on above: Performed By: #### L 500.4050, L100.0100, L501.9100, L505.5000 ####[facility] [address] [place], [address] Absolute Neut 6.1 X10 3/uL Normal 2.0-7.7 [facility] Comment on above: Performed By: #### L 500.4050, L100.0100, L501.9100, L505.5000 ####[facility] [address] [place], [address] Basophils/100 WBC (Bld) 0.5 % Normal 0-1 [facility] Comment on above: Performed By: #### L 500.4050, L100.0100, L501.9100, L505.5000 ####[facility] [address] [place], [address] Eosinophils/100 WBC (Bld) 1.4 % Normal 0-5 [facility] Comment on above: Performed By: #### L 500.4050, L100.0100, L501.9100, L505.5000 ####[facility] [address] [place], [address] Erythrocyte distribution width (RBC) [Ratio] 12.9 % Normal 11.6-14.6 [facility] Comment on above: Performed By: #### L 500.4050, L100.0100, L501.9100, L505.5000 ####[facility] [address] [place], [address] Hematocrit (Bld) [Volume fraction] 37.9 % Normal 37-47 [facility] Comment on above: Performed By: #### L 500.4050, L100.0100, L501.9100, L505.5000 ####[facility] [address] [place], [address] Hemoglobin (Bld) [Mass/Vol] 12.7 g/dL Normal 12.0-15.0 [facility] Comment on above: Performed By: #### L 500.4050, L100.0100, L501.9100, L505.5000 ####[facility] [address] [place], [address] IG% 0.400 Normal 0.0-0.9 [facility] Comment on above: Result Comment: IG% - Immature Granulocytes (promyelocytes, myelocytes andmetamyelocytes) > 1% indicates that a LEFT SHIFT is Present. Performed By: #### L 500.4050, L100.0100, L501.9100, L505.5000 ####[facility] [address] [place], [address] Lymphocytes/100 WBC (Bld) 28.1 % Normal 19-41 [facility] Comment on above: Performed By: #### L 500.4050, L100.0100, L501.9100, L505.5000 ####[facility] [address] [place], [address] MCH (RBC) [Entitic mass] 32.0 pg Normal 27.0-32.0 [facility] Comment on above: Performed By: #### L 500.4050, L100.0100, L501.9100, L505.5000 ####[facility] [address] [place], [address] MCHC (RBC) [Mass/Vol] 33.5 g/dL Normal 32-36 [facility] Comment on above: Performed By: #### L 500.4050, L100.0100, L501.9100, L505.5000 ####[facility] [address] [place], [address] MCV (RBC) [Entitic vol] 95.5 fL Normal 81-99 [facility] Comment on above: Performed By: #### L 500.4050, L100.0100, L501.9100, L505.5000 ####[facility] [address] [place], [address] Monocytes/100 WBC (Bld) 7.7 % Normal 0-10 [facility] Comment on above: Performed By: #### L 500.4050, L100.0100, L501.9100, L505.5000 ####[facility] [address] [place], [address] Neutrophils/100 WBC (Bld) 61.9 % Normal 47-70 [facility] Comment on above: Performed By: #### L 500.4050, L100.0100, L501.9100, L505.5000 ####[facility] [address] [place], [address] Nucleated RBC (Bld) [#/Vol] 0 10*3/uL Normal 0-5 [facility] Comment on above: Performed By: #### L 500.4050, L100.0100, L501.9100, L505.5000 ####[facility] [address] [place], [address] Platelet mean volume (Bld) [Entitic vol] 9.0 fL Normal 6.2-12.0 [facility] Comment on above: Performed By: #### L 500.4050, L100.0100, L501.9100, L505.5000 ####[facility] [address] [place], [address] Platelets (Bld) [#/Vol] 337 10*3/uL Normal 150-450 [facility] Comment on above: Performed By: #### L 500.4050, L100.0100, L501.9100, L505.5000 ####[facility] [address] [place], [address] RBC (Bld) [#/Vol] 3.97 10*6/uL Low 4.2-5.4 [facility] Comment on above: Performed By: #### L 500.4050, L100.0100, L501.9100, L505.5000 ####[facility] [address] [place], [address] RDW SD 45.1 fl High 35.1-43.9 [facility] Comment on above: Performed By: #### L 500.4050, L100.0100, L501.9100, L505.5000 ####[facility] [address] [place], [address] WBC (Bld) [#/Vol] 9.8 10*3/uL Normal 4.4-11.0 [facility] Comment on above: Performed By: #### L 500.4050, L100.0100, L501.9100, L505.5000 ####[facility] [address] [place], [address] Chest PA and Lateralon 12-09 Chest PA and Lateral Normal [facility] Comprehensive Metabolic Prof ilon 12-09-2024 Albumin [Mass/Vol] 4.4 g/dL Normal 3.4-4.8 [facility] Comment on above: Performed By: #### L 500.4050, L100.0100, L501.9100, L505.5000 ####[facility] [address] [place], [address] Albumin/Globulin [Mass ratio] 1.5 {ratio} Normal 0.9-2.4 [facility] Comment on above: Performed By: #### L 500.4050, L100.0100, L501.9100, L505.5000 ####[facility] [address] [place], [address] ALK PHOS 128 U/L High 35-104 [facility] Comment on above: Performed By: #### L 500.4050, L100.0100, L501.9100, L505.5000 ####[facility] [address] [place], [address] ALT [Catalytic activity/Vol] 12 U/L Normal <=34 [facility] Comment on above: Performed By: #### L 500.4050, L100.0100, L501.9100, L505.5000 ####[facility] [address] [place], [address] AST [Catalytic activity/Vol] 22 U/L Normal <=31 [facility] Comment on above: Performed By: #### L 500.4050, L100.0100, L501.9100, L505.5000 ####[facility] [address] [place], [address] Bilirubin [Mass/Vol] 0.59 mg/dL Normal 0.00-1.30 [facility] Comment on above: Performed By: #### L 500.4050, L100.0100, L501.9100, L505.5000 ####[facility] [address] [place], [address] BUN/CRE 31.5 RATIO High 10-20 [facility] Comment on above: Performed By: #### L 500.4050, L100.0100, L501.9100, L505.5000 ####[facility] [address] [place], [address] Calcium [Mass/Vol] 9.3 mg/dL Normal 7.6-11.0 [facility] Comment on above: Performed By: #### L 500.4050, L100.0100, L501.9100, L505.5000 ####[facility] [address] [place], [address] Chloride [Moles/Vol] 102 mmol/L Normal 98-108 [facility] Comment on above: Performed By: #### L 500.4050, L100.0100, L501.9100, L505.5000 ####[facility] [address] [place], [address] CO2 [Moles/Vol] 20.6 mmol/L Low 21.0-32.0 [facility] Comment on above: Performed By: #### L 500.4050, L100.0100, L501.9100, L505.5000 ####[facility] [address] [place], [address] Creatinine [Mass/Vol] 0.89 mg/dL Normal 0.70-1.20 [facility] Comment on above: Performed By: #### L 500.4050, L100.0100, L501.9100, L505.5000 ####[facility] [address] [place], [address] ECRCL 69.85 ml/min Normal 50-250 [facility] Comment on above: Performed By: #### L 500.4050, L100.0100, L501.9100, L505.5000 ####[facility] [address] [place], [address] GAP 15 Normal 5-15 [facility] Comment on above: Performed By: #### L 500.4050, L100.0100, L501.9100, L505.5000 ####[facility] [address] [place], [address] GFR/1.73 sq M.predicted among non-blacks MDRD (S/P/Bld) [Vol rate/Area] 68 mL/min/{1.73_m2} Normal >60 [facility] Comment on above: Result Comment: mL/m in/1.73m2 CKD-EPI Creatinine Equation (2020) Performed By: #### L 500.4050, L100.0100, L501.9100, L505.5000 ####[facility] [address] [place], [address] Globulin (S) [Mass/Vol] 2.9 g/dL Normal 2.2-4.2 [facility] Comment on above: Performed By: #### L 500.4050, L100.0100, L501.9100, L505.5000 ####[facility] [address] [place], [address] Glucose [Mass/Vol] 128 mg/dL High 70-99 [facility] Comment on above: Performed By: #### L 500.4050, L100.0100, L501.9100, L505.5000 ####[facility] [address] [place], [address] Potassium [Moles/Vol] 3.5 mmol/L Normal 3.3-5.1 [facility] Comment on above: Performed By: #### L 500.4050, L100.0100, L501.9100, L505.5000 ####[facility] [address] [place], [address] Sodium [Moles/Vol] 137 mmol/L Normal 133-145 [facility] Comment on above: Performed By: #### L 500.4050, L100.0100, L501.9100, L505.5000 ####[facility] [address] [place], [address] T PROT 7.2 g/dL Normal 5.9-8.4 [facility] Comment on above: Performed By: #### L 500.4050, L100.0100, L501.9100, L505.5000 ####[facility] [address] [place], [place], [address] Urea nitrogen [Mass/Vol] 28 mg/dL High 4-19 [facility] Comment on above: Performed By: #### L 500.4050, L100.0100, L501.9100, L505.5000 ####[facility] [address] [place], [place], [address] Emergency Department Summary on 12-09-2024 Emergency Department Summary Normal [facility] Glucose measurement at [facility] deOrdered By: Raghav Ramon on 12-09-2024 Glucose [Mass/Vol] 111 mg/dL High 74-106 [facility] Hyaline casts LM.LPF (Urine sed) [#/Area]Ordered By: Raghav Ramon on 12-09-2024 Hyaline casts (Urine sed) [#/Area] 0 /[LPF] 0-5 [facility] Ketones Test strip Ql (U)Ord ered By: Raghav Ramon on 12-09-2024 Ketones Ql (U) 5 mg/dl High Negative [facility] L509.6002on 12-09-2024 CORTISOL 5.52 ug/dL Normal 2.68-10.50 [facility] Comment on above: Performed By: #### L 509.6002 ####[facility] [address] [place], [place], [address] Mucus LM Ql (Urine sed)Order ed By: Raghav Ramon on 12-09-2024 Mucus Ql (Urine sed) 0 SEEN /hpf [facility] Nitrite Test strip Ql (U)Ord ered By: Raghav Ramon on 12-09-2024 Nitrite Ql (U) Negative Negative [facility] No Panel InformationOrdered By: Raghav Ramon on 12-09-2024 Negative < 200 ng/mL [facility] Protein Test strip Ql (U)Ord ered By: Raghav Ramon on 12-09-2024 Protein Ql (U) 15 mg/dl High Negative [facility] Screening urine fentanyl lloyd surementOrdered By: Raghav Ramon on 12-09-2024 fentaNYL Screen Ql (U) Negative [facility] Serum or plasma cortisol lloyd surement (mass/volume)Ordered By: Raghav Ramon on 12-09-2024 Cortisol [Mass/Vol] 5.52 ug/dL 2.68-10.50 [facility] Serum or plasma ethanol sonali urement (mass/volume)Ordered By: Raghav Ramon on 12-09-2024 Ethanol [Mass/Vol] mg/dL <10.1 [facility] Squamous epithelial cells de tection in urine sediment by light microscopyOrdered By: Raghav Ramon on 12-09-2024 Epithelial cells.squamous LM Ql (Urine sed) 0-5 SEEN /hpf -10 [facility] Urinalysis, Completeon 12-09 CAST,HYALINE 0-5 SEEN Normal 0-5 [facility] Comment on above: Order Comment: TONE CTOR TO SPECIFY Performed By: #### L 400.0001 ####[facility] [address] [place], [address] EPI,SQUAMOUS 0-5 SEEN Normal 5-10 [facility] Comment on above: Order Comment: TONE CTOR TO SPECIFY Performed By: #### L 400.0001 ####[facility] [address] [place], [address] RBC 0-5 SEEN Normal 0-5 [facility] Comment on above: Order Comment: TONE CTOR TO SPECIFY Performed By: #### L 400.0001 ####[facility] [address] [place], [address] WBC 0-5 SEEN Normal 0-5 [facility] Comment on above: Order Comment: TONE CTOR TO SPECIFY Performed By: #### L 400.0001 ####[facility] [address] [place], [address] BACTERIA 0 SEEN Normal None Seen [facility] Comment on above: Order Comment: TONE CTOR TO SPECIFY Performed By: #### L 400.0001 ####[facility] [address] [place], [address] Mucus Ql (Urine sed) 0 SEEN Normal [facility] Comment on above: Order Comment: COLLE CTOR TO SPECIFY Performed By: #### L 400.0001 ####[facility] [address] [place], [address] Urine Drug Screen (VISTA)on 12-09-2024 AMPHETAMINES Negative Normal <1000 ng/mL [facility] Comment on above: Performed By: #### L 500.4050, L100.0100, L501.9100, L505.5000 ####[facility] [address] [place], [address] BARBITIURATES Negative Normal < 200 ng/mL [facility] Comment on above: Performed By: #### L 500.4050, L100.0100, L501.9100, L505.5000 ####[facility] [address] [place], [address] BENZODIAZIPINE Negative Normal < 200 ng/mL [facility] Comment on above: Performed By: #### L 500.4050, L100.0100, L501.9100, L505.5000 ####[facility] [address] [place], [address] BUP Ur Drug Scr Negative Normal < 200 ng/mL [facility] Comment on above: Performed By: #### L 500.4050, L100.0100, L501.9100, L505.5000 ####[facility] [address] [place], [address] COCAINE Negative Normal < 300 ng/mL [facility] Comment on above: Performed By: #### L 500.4050, L100.0100, L501.9100, L505.5000 ####[facility] [address] [place], [address] Fentanyl Negative Normal [facility] Comment on above: Performed By: #### L 500.4050, L100.0100, L501.9100, L505.5000 ####[facility] [address] [place], [address] METHADONE Negative Normal < 300 ng/mL [facility] Comment on above: Performed By: #### L 500.4050, L100.0100, L501.9100, L505.5000 ####[facility] [address] [place], [address] OPIATES Negative Normal < 300 ng/mL [facility] Comment on above: Performed By: #### L 500.4050, L100.0100, L501.9100, L505.5000 ####[facility] [address] [place], [address] OXYCODONE Negative Normal < 100 ng/mL [facility] Comment on above: Performed By: #### L 500.4050, L100.0100, L501.9100, L505.5000 ####[facility] [address] [place], [address] PCP Negative Normal < 25 ng/mL [facility] Comment on above: Performed By: #### L 500.4050, L100.0100, L501.9100, L505.5000 ####[facility] [address] [place], [place], [phone] THC Negative Normal < 50 ng/mL [facility] Comment on above: Performed By: #### L 500.4050, L100.0100, L501.9100, L505.5000 ####[facility] [address] [place], [address] Urine clarityOrdered By: Khushi Ramon on 12-09-2024 Clarity (U) Clear Clear [facility] Urine color determinationOrd ered By: Raghav Ramon on 12-09-2024 Color (U) Yellow Yellow [facility] Urine glucose detectionOrder ed By: Raghav Ramon on 12-09-2024 Glucose Ql (U) Normal mg/dl Normal [facility] Urine leukocyte esterase det ection by dipstickOrdered By: Raghav Ramon on 12-09-2024 Leukocyte esterase Test strip Ql (U) Negative Negative [facility] Urine pHOrdered By: Raghav Ramon on 12-09-2024 pH (U) 6.0 [pH] 5.0 - 8.0 [facility] Urine phencyclidine (PCP) de tectionOrdered By: Raghav Ramon on 12-09-2024 Phencyclidine Ql (U) Negative < 25 ng/mL [facility] Urine sediment bacteria coun t by microscopy (number/high power field)Ordered By: Raghav Ramon on 12-09-2024 Bacteria LM.HPF (Urine sed) [#/Area] 0 /[HPF] None Seen [facility] Urine specific gravity measu rementOrdered By: Raghav Ramon on 12-09-2024 Specific gravity (U) [Rel density] 1.020 1.002-1.030 [facility] Urine urobilinogen measureme ntOrdered By: Raghav Ramon on 12-09-2024 Urobilinogen Ql (U) Normal mg/dl Normal [facility] White blood cell countOrdere d By: Raghav Ramon on 12-09-2024 White blood cell count 0-5 SEEN /hpf 0-5 [facility] Bone density reportOrdered B y: Billy Kaplan on 11-24-2024 Study report Skeletal system DXA [facility] Dexa Bone Density Studyon Dexa Bone Density Study Normal [facility] ALP [Catalytic activity/Vol] Ordered By: Marycarmen Stevens on 11-19-2024 Serum or plasma alkaline phosphatase measurement 110 U/L High 35-104 [facility] ALT [Catalytic activity/Vol] Ordered By: Marycarmen Stevens on 11-19-2024 Serum or plasma alanine aminotransferase (ALT) measurement 12 U/L <35 [facility] Absolute lymphocyte countOrd ered By: Marycarmen Stevens on 11-19-2024 Lymphocytes Auto (Unsp spec) [#/Vol] 3.88 10*3/uL 0.83-4.51 [facility] Absolute neutrophil countOrd ered By: Marycarmen Stevens on 11-19-2024 Absolute neutrophil count 2.8 X10^3/uL 2.0-7.7 [facility] Albumin [Mass/Vol]Ordered By : Marycarmen Stevens on 11-19-2024 Serum or plasma albumin measurement (mass/volume) 4.1 g/dL 3.4-4.8 [facility] Albumin/Globulin [Mass ratio ]Ordered By: Marycarmen Stevens on 11-19-2024 Serum or plasma albumin/globulin mass ratio 1.6 RATIO 0.9-2.4 [facility] Anion gap [Moles/Vol]Ordered By: Marycarmenjag Stevens on 11-19-2024 Anion gap in Serum or Plasma 11 12-23 [facility] Anion gap in Serum or Plasma Ordered By: Marycarmen Stevens on 11-19-2024 Anion gap [Moles/Vol] 11 mmol/L 12-23 [facility] Automated lymphocyte count a s percentage of total leukocytesOrdered By: Marycarmen Stevens on 11-19-2024 Lymphocytes/100 WBC Auto (Unsp spec) 53.5 % High 19-41 [facility] BUN/creatinine ratioOrdered By: Marycarmen Stevens on 11-19-2024 Urea nitrogen/Creatinine [Mass ratio] 21.4 mg/mg High 10-20 [facility] BUN/creatinine ratio 21.4 RATIO High 10-20 [facility] Basophil percentageOrdered B y: Marycarmen Stevens on 11-19-2024 Basophils/100 WBC (Bld) 0.6 % 0-1 [facility] Basophil percentage 0.6 % 0-1 [facility] Bilirubin, totalOrdered By: Marycarmen Stevens on 11-19-2024 Bilirubin [Mass/Vol] 0.37 mg/dL 0.00-1.30 [facility] Bilirubin, total 0.37 mg/dL 0.00-1.30 [facility] CBC W/Diff, Automatedon 11-09 Absolute Lymph 3.88 X10 3/uL Normal 0.83-4.51 [facility] Comment on above: Performed By: #### L 100.0100, L500.4050 ####[facility] [address] [place], [address] Absolute Neut 2.8 X10 3/uL Normal 2.0-7.7 [facility] Comment on above: Performed By: #### L 100.0100, L500.4050 ####[facility] [address] [place], [address] Basophils/100 WBC (Bld) 0.6 % Normal 0-1 [facility] Comment on above: Performed By: #### L 100.0100, L500.4050 ####[facility] [address] [place], [address] Eosinophils/100 WBC (Bld) 2.8 % Normal 0-5 [facility] Comment on above: Performed By: #### L 100.0100, L500.4050 ####[facility] [address] [place], [address] Erythrocyte distribution width (RBC) [Ratio] 12.7 % Normal 11.6-14.6 [facility] Comment on above: Performed By: #### L 100.0100, L500.4050 ####[facility] [address] [place], [address] Hematocrit (Bld) [Volume fraction] 36.2 % Low 37-47 [facility] Comment on above: Performed By: #### L 100.0100, L500.4050 ####[facility] [address] [place], [address] Hemoglobin (Bld) [Mass/Vol] 11.7 g/dL Low 12.0-15.0 [facility] Comment on above: Performed By: #### L 100.0100, L500.4050 ####[facility] [address] [place], [address] IG% 0.100 Normal 0.0-0.9 [facility] Comment on above: Result Comment: IG% - Immature Granulocytes (promyelocytes, myelocytes andmetamyelocytes) > 1% indicates that a LEFT SHIFT is Present. Performed By: #### L 100.0100, L500.4050 ####[facility] [address] [place], [address] Lymphocytes/100 WBC (Bld) 53.5 % High 19-41 [facility] Comment on above: Performed By: #### L 100.0100, L500.4050 ####[facility] [address] [place], [address] MCH (RBC) [Entitic mass] 32.5 pg High 27.0-32.0 [facility] Comment on above: Performed By: #### L 100.0100, L500.4050 ####[facility] [address] [place], [address] MCHC (RBC) [Mass/Vol] 32.3 g/dL Normal 32-36 [facility] Comment on above: Performed By: #### L 100.0100, L500.4050 ####[facility] [address] [place], [address] MCV (RBC) [Entitic vol] 100.6 fL High 81-99 [facility] Comment on above: Performed By: #### L 100.0100, L500.4050 ####[facility] [address] [place], [address] Monocytes/100 WBC (Bld) 4.7 % Normal 0-10 [facility] Comment on above: Performed By: #### L 100.0100, L500.4050 ####[facility] [address] [place], [address] Neutrophils/100 WBC (Bld) 38.3 % Low 47-70 [facility] Comment on above: Performed By: #### L 100.0100, L500.4050 ####[facility] [address] [place], [address] Nucleated RBC (Bld) [#/Vol] 0 10*3/uL Normal 0-5 [facility] Comment on above: Performed By: #### L 100.0100, L500.4050 ####[facility] [address] [place], [address] Platelet mean volume (Bld) [Entitic vol] 9.2 fL Normal 6.2-12.0 [facility] Comment on above: Performed By: #### L 100.0100, L500.4050 ####[facility] [address] [place], [address] Platelets (Bld) [#/Vol] 294 10*3/uL Normal 150-450 [facility] Comment on above: Performed By: #### L 100.0100, L500.4050 ####[facility] [address] [place], [address] RBC (Bld) [#/Vol] 3.60 10*6/uL Low 4.2-5.4 [facility] Comment on above: Performed By: #### L 100.0100, L500.4050 ####[facility] [address] [place], [address] RDW SD 47.3 fl High 35.1-43.9 [facility] Comment on above: Performed By: #### L 100.0100, [id number] ####[facility] [address] [place], [address] WBC (Bld) [#/Vol] 7.3 10*3/uL Normal 4.4-11.0 [facility] Comment on above: Performed By: #### L 100.0100, L500.4050 ####[facility] [id number] [place], [address] Calcium [Mass/Vol]Ordered By : Marycarmen Stevens on 11-19-2024 Serum or plasma calcium measurement (mass/volume) 9.2 mg/dL 7.6-11.0 [facility] Carbon dioxide, total [Moles /volume] in Central venous bloodOrdered By: Marycarmen Stevens on 11-19-2024 CO2 [Moles/Vol] 23.0 mmol/L 21.0-32.0 [facility] Carbon dioxide, total [Moles/volume] in Central venous blood 23.0 mmol/L 21.0-32.0 [facility] Chloride assayOrdered By: Suha Stevens on 11-19-2024 Chloride [Moles/Vol] 106 mmol/L 98-108 [facility] Chloride assay 106 mmol/L 98-108 [facility] Comprehensive Metabolic Prof ilon 11-19-2024 Albumin [Mass/Vol] 4.1 g/dL Normal 3.4-4.8 [facility] Comment on above: Performed By: #### L 100.0100, L500.4050 ####[facility] [address] [place], [address] Albumin/Globulin [Mass ratio] 1.6 {ratio} Normal 0.9-2.4 [facility] Comment on above: Performed By: #### L 100.0100, L500.4050 ####[facility] [address] [place], [address] ALK PHOS 110 U/L High 35-104 [facility] Comment on above: Performed By: #### L 100.0100, L500.4050 ####[facility] [address] [place], [address] ALT [Catalytic activity/Vol] 12 U/L Normal <=34 [facility] Comment on above: Performed By: #### L 100.0100, L500.4050 ####[facility] [address] [place], [address] AST [Catalytic activity/Vol] 21 U/L Normal <=31 [facility] Comment on above: Performed By: #### L 100.0100, L500.4050 ####[facility] [address] [place], [address] Bilirubin [Mass/Vol] 0.37 mg/dL Normal 0.00-1.30 [facility] Comment on above: Performed By: #### L 100.0100, L500.4050 ####[facility] [address] [place], [address] BUN/CRE 21.4 RATIO High 10-20 [facility] Comment on above: Performed By: #### L 100.0100, L500.4050 ####[facility] [address] [place], [address] Calcium [Mass/Vol] 9.2 mg/dL Normal 7.6-11.0 [facility] Comment on above: Performed By: #### L 100.0100, L500.4050 ####[facility] [address] [place], [address] Chloride [Moles/Vol] 106 mmol/L Normal 98-108 [facility] Comment on above: Performed By: #### L 100.0100, L500.4050 ####[facility] [address] [place], [address] CO2 [Moles/Vol] 23.0 mmol/L Normal 21.0-32.0 [facility] Comment on above: Performed By: #### L 100.0100, L500.4050 ####[facility] [address] [place], [address] Creatinine [Mass/Vol] 0.82 mg/dL Normal 0.70-1.20 [facility] Comment on above: Performed By: #### L 100.0100, L500.4050 ####[facility] [address] [place], [address] GAP 11 Normal 5-15 [facility] Comment on above: Performed By: #### L 100.0100, L500.4050 ####[facility] [address] [place], [address] GFR/1.73 sq M.predicted among non-blacks MDRD (S/P/Bld) [Vol rate/Area] 77 mL/min/{1.73_m2} Normal >60 [facility] Comment on above: Result Comment: mL/m in/1.73m2 CKD-EPI Creatinine Equation (2020) Performed By: #### L 100.0100, L500.4050 ####[facility] [address] [place], [address] Globulin (S) [Mass/Vol] 2.5 g/dL Normal 2.2-4.2 [facility] Comment on above: Performed By: #### L 100.0100, L500.4050 ####[facility] [address] [place], [address] Glucose [Mass/Vol] 108 mg/dL High 70-99 [facility] Comment on above: Performed By: #### L 100.0100, L500.4050 ####[facility] [address] [place], [address] Potassium [Moles/Vol] 3.6 mmol/L Normal 3.3-5.1 [facility] Comment on above: Performed By: #### L 100.0100, L500.4050 ####[facility] [address] [place], [address] Sodium [Moles/Vol] 140 mmol/L Normal 133-145 [facility] Comment on above: Performed By: #### L 100.0100, L500.4050 ####[facility] [address] [place], [address] T PROT 6.6 g/dL Normal 5.9-8.4 [facility] Comment on above: Performed By: #### L 100.0100, L500.4050 ####[facility] [address] [place], [address] Urea nitrogen [Mass/Vol] 18 mg/dL Normal 4-19 [facility] Comment on above: Performed By: #### L 100.0100, L500.4050 ####[facility] [address] [place], [address] Creatinine [Mass/Vol]Ordered By: Marycarmen Stevens on 11-19-2024 Serum creatinine measurement (mass/volume) 0.82 mg/dL 0.70-1.20 [facility] Eosinophil percentageOrdered By: Marycarmen Stevens on 11-19-2024 Eosinophils/100 WBC (Bld) 2.8 % 0-5 [facility] Eosinophil percentage 2.8 % 0-5 [facility] Erythrocyte distribution wid th (RBC) [Ratio]Ordered By: Marycarmen Stevens on 11-19-2024 Erythrocyte distribution width ratio 12.7 % 11.6-14.6 [facility] Erythrocyte distribution width standard deviation 47.3 fl High 35.1-43.9 [facility] Erythrocyte distribution wid th ratioOrdered By: Marycarmen Stevens on 11-19-2024 Erythrocyte distribution width (RBC) [Ratio] 12.7 % 11.6-14.6 [facility] Erythrocyte distribution wid th standard deviationOrdered By: Marycarmen Stevens on 11-19-2024 Erythrocyte distribution width (RBC) [Ratio] 47.3 fl High 35.1-43.9 [facility] GFR/1.73 sq M.predicted ilana g non-blacks MDRD (S/P/Bld) [Vol rate/Area]Ordered By: Marycarmen Stevens on 11-19-2024 Glomerular filtration rate (GFR) estimation/1.73 sq m using serum, plasma, or whole b 77 >60 [facility] Glomerular filtration rate ( GFR) estimation/1.73 sq m using serum, plasma, or whole bOrdered By: Marycarmen Stevens on 11-19-2024 GFR/1.73 sq M.predicted among non-blacks MDRD (S/P/Bld) [Vol rate/Area] 77 mL/min/{1.73_m2} >60 [facility] Glucose [Mass/Vol]Ordered By : Marycarmen Stevens on 11-19-2024 Serum glucose measurement (mass/volume) 108 mg/dL High 70-99 [facility] Hematocrit Auto (Bld) [Volum e fraction]Ordered By: Marycarmen Stevens on 11-19-2024 Hematocrit (Bld) [Volume fraction] 36.2 % Low 37-47 [facility] Automated blood hematocrit (percentage) 36.2 % Low 37-47 [facility] Hemoglobin measurementOrdere d By: Marycarmen Stevens on 11-19-2024 Hemoglobin (Bld) [Mass/Vol] 11.7 g/dL Low 12.0-15.0 [facility] Hemoglobin measurement 11.7 g/dL Low 12.0-15.0 [facility] Immature granulocytes/100 WB C Auto (Bld)Ordered By: Marycarmen Stevens on 11-19-2024 Immature granulocytes/100 WBC (Bld) 0.100 % 0.0-0.9 [facility] Automated immature granulocyte percentage 0.100 % 0.0-0.9 [facility] Lymphocytes Auto (Unsp spec) [#/Vol]Ordered By: Marycarmen Stevens on 11-19-2024 Absolute lymphocyte count 3.88 X10^3/uL 0.83-4. 51 [facility] Lymphocytes/100 WBC Auto (Un sp spec)Ordered By: Marycarmen Stevens on 11-19-2024 Automated lymphocyte count as percentage of total leukocytes 53.5 % High 19-41 [facility] MCV (RBC) [Entitic vol]Order ed By: Marycarmen Stevens on 11-19-2024 MCV (mean corpuscular volume) determination 100.6 fL High 81-99 [facility] MCV (mean corpuscular volume ) determinationOrdered By: Marycarmen Stevens on 11-19-2024 MCV (RBC) [Entitic vol] 100.6 fL High 81-99 [facility] Mean corpuscular hemoglobin (MCH) determinationOrdered By: Marycarmen Stevens on 11-19-2024 MCH (RBC) [Entitic mass] 32.5 pg High 27.0-32.0 [facility] Mean corpuscular hemoglobin (MCH) determination 32.5 pg High 27.0-32.0 [facility] Mean corpuscular hemoglobin concentration (MCHC) determinationOrdered By: Marycarmen Stevens on 11-19-2024 Mean corpuscular hemoglobin concentration (MCHC) determination 32.3 g/dL 32-36 [facility] Mean platelet volume determi nationOrdered By: Marycarmen Stevens on 11-19-2024 Mean platelet volume determination 9.2 fl 6.2-12.0 [facility] Monocyte percentageOrdered B y: Marycarmen Stevens on 11-19-2024 Monocytes/100 WBC (Bld) 4.7 % 0-10 [facility] Monocyte percentage 4.7 % 0-10 [facility] Neutrophil percentageOrdered By: Marycarmen Stevens on 11-19-2024 Neutrophils/100 WBC (Bld) 38.3 % Low 47-70 [facility] Neutrophil percentage 38.3 % Low 47-70 [facility] No Panel InformationOrdered By: Marycarmen Stevens on 11-19-2024 21 U/L <32 [facility] Nucleated red blood cell per centageOrdered By: Marycarmen Stevens on 11-19-2024 Nucleated red blood cell percentage 0 % 0-5 [facility] Platelet countOrdered By: Suha Stevens on 11-19-2024 Platelets (Bld) [#/Vol] 294 10*3/uL 150-450 [facility] Platelet count 294 K/mm3 150-450 [facility] Potassium (Unsp spec) [Mass/ Vol]Ordered By: Marycarmen Stevens on 11-19-2024 Potassium measurement (mass/volume) 3.6 mmol/L 3.3-5.1 [facility] Potassium measurement (mass/ volume)Ordered By: Marycarmen Stevens on 11-19-2024 Potassium (Unsp spec) [Mass/Vol] 3.6 mmol/L 3.3-5.1 [facility] RBC Auto (Bld) [#/Vol]Ordere d By: Marycarmen Stevens on 11-19-2024 RBC (Bld) [#/Vol] 3.60 10*6/uL Low 4.2-5.4 [facility] Automated blood erythrocyte count 3.60 M/mm3 Low 4.2-5.4 [facility] Serum creatinine measurement (mass/volume)Ordered By: Marycarmen Stevens on 11-19-2024 Creatinine [Mass/Vol] 0.82 mg/dL 0.70-1.20 [facility] Serum globulin measurementOr dered By: Marycarmen Stevens on 11-19-2024 Globulin (S) [Mass/Vol] 2.5 g/dL 2.2-4.2 [facility] Serum globulin measurement 2.5 g/dL 2.2-4.2 [facility] Serum glucose measurement (m ass/volume)Ordered By: Marycarmen Stevens on 11-19-2024 Glucose [Mass/Vol] 108 mg/dL High 70-99 [facility] Serum or plasma alanine gatica otransferase (ALT) measurementOrdered By: Marycarmen Stevens on 11-19-2024 ALT [Catalytic activity/Vol] 12 U/L <35 [facility] Serum or plasma albumin sonali urement (mass/volume)Ordered By: Marycarmen Stevens on 11-19-2024 Albumin [Mass/Vol] 4.1 g/dL 3.4-4.8 [facility] Serum or plasma albumin/glob ulin mass ratioOrdered By: Marycarmen Stevens on 11-19-2024 Albumin/Globulin [Mass ratio] 1.6 {ratio} 0.9-2.4 [facility] Serum or plasma alkaline ike sphatase measurementOrdered By: Marycarmen Stevens on 11-19-2024 ALP [Catalytic activity/Vol] 110 U/L High 35-104 [facility] Serum or plasma calcium sonali urement (mass/volume)Ordered By: Marycarmen Stevens on 11-19-2024 Calcium [Mass/Vol] 9.2 mg/dL 7.6-11.0 [facility] Serum or plasma urea nitroge n measurement (mass/volume)Ordered By: Marycarmen Stevens on 11-19-2024 Urea nitrogen [Mass/Vol] 18 mg/dL 11-27 [facility] Sodium levelOrdered By: Kalin Stevens on 11-19-2024 Sodium [Moles/Vol] 140 mmol/L 133-145 [facility] Sodium level 140 mmol/L 133-145 [facility] Total proteinOrdered By: Willy Stevens on 11-19-2024 Protein [Mass/Vol] 6.6 g/dL 5.9-8.4 [facility] Total protein 6.6 g/dL 5.9-8.4 [facility] Urea nitrogen [Mass/Vol]Orde red By: Marycarmen Stevens on 11-19-2024 Serum or plasma urea nitrogen measurement (mass/volume) 18 mg/dL 11-27 [facility] White blood cell (WBC) count Ordered By: Marycarmen Stevens on 11-19-2024 WBC (Bld) [#/Vol] 7.3 10*3/uL 4.4-11.0 [facility] White blood cell (WBC) count 7.3 K/mm3 4.4-11.0 [facility] Gastroenterology Visit Repor ton 10-21-2024 Gastroenterology Visit Report Normal [facility] Basic Metabolic Profile (BMP )on 09-16-2024 BUN/CRE 39.5 RATIO High 10-20 [facility] Comment on above: Performed By: #### L 506.0400, L500.2500, L501.9520, L500.4100, L501.32947 ####[facility] [address] [place], [address] CA,Total 9.1 mg/dL Normal 8.5-10.1 [facility] Comment on above: Performed By: #### L 506.0400, L500.2500, L501.9520, L500.4100, L501.38573 ####[facility] [address] [place], [address] Chloride [Moles/Vol] 108 mmol/L High 98-107 [facility] Comment on above: Performed By: #### L 506.0400, L500.2500, L501.9520, L500.4100, L501.93804 ####[facility] [address] [place], [address] CO2 [Moles/Vol] 25.0 mmol/L Normal 21.0-32.0 [facility] Comment on above: Performed By: #### L 506.0400, L500.2500, L501.9520, L500.4100, L501.87335 ####[facility] [address] [place], [address] Creatinine [Mass/Vol] 0.66 mg/dL Normal 0.55-1.02 [facility] Comment on above: Result Comment: The validity of the calculated GFR GFRAA in patients over70 years has not been determined. Clinical correlation isessential. Performed By: #### L 506.0400, L500.2500, L501.9520, L500.4100, L501.99689 ####[facility] [address] [place], [address] EST GFR - AA 114 mL/min Normal >60 [facility] Comment on above: Result Comment: Afri can Malaysian GFR Calc Performed By: #### L 506.0400, L500.2500, L501.9520, L500.4100, L501.12093 ####[facility] [address] [place], [address] GAP 7 Normal 5-15 [facility] Comment on above: Performed By: #### L 506.0400, L500.2500, L501.9520, L500.4100, L501.94108 ####[facility] [address] [place], [address] GFR/1.73 sq M.predicted among non-blacks MDRD (S/P/Bld) [Vol rate/Area] 94 mL/min/{1.73_m2} Normal >60 [facility] Comment on above: Result Comment: Non- GFR Calc Performed By: #### L 506.0400, L500.2500, L501.9520, L500.4100, L501.73380 ####[facility] [address] [place], [address] Glucose [Mass/Vol] 90 mg/dL Normal 74-106 [facility] Comment on above: Performed By: #### L 506.0400, L500.2500, L501.9520, L500.4100, L501.86440 ####[facility] [address] [place], [address] Potassium [Moles/Vol] 3.6 mmol/L Normal 3.5-5.1 [facility] Comment on above: Performed By: #### L 506.0400, L500.2500, L501.9520, L500.4100, L501.48616 ####[facility] [address] [place], [address] Sodium [Moles/Vol] 140 mmol/L Normal 136-145 [facility] Comment on above: Performed By: #### L 506.0400, L500.2500, L501.9520, L500.4100, L501.05859 ####[facility] [address] [place], [address] Urea nitrogen [Mass/Vol] 26 mg/dL High 7-18 [facility] Comment on above: Performed By: #### L 506.0400, L500.2500, L501.9520, L500.4100, L501.25088 ####[facility] [address] [place], [address] Blood urea nitrogen (BUN)/cr eatinine ratioOrdered By: Gamaliel Whitehead on 09-16-2024 Blood urea nitrogen (BUN)/creatinine ratio 39.5 RATIO High 10-20 [facility] Calcium [Mass/Vol]Ordered By : Gamaliel Whitehead on 09-16-2024 Serum or plasma calcium measurement (mass/volume) 9.1 mg/dL 8.5-10.1 [facility] Carbon dioxide measurementOr dered By: Gamaliel Whitehead on 09-16-2024 CO2 [Moles/Vol] 25.0 mmol/L 21.0-32.0 [facility] Carbon dioxide measurement 25.0 mmol/L 21.0-32.0 [facility] Chloride measurementOrdered By: Gamaliel Whitehead on 09-16-2024 Chloride [Moles/Vol] 108 mmol/L High 98-107 [facility] Chloride measurement 108 mmol/L High 98-107 [facility] Cholesterol [Mass/Vol]Ordere d By: Gamaliel Whitehead on 09-16-2024 Serum or plasma cholesterol measurement (mass/volume) 195 mg/dL <200 [facility] Creatinine [Mass/Vol]Ordered By: Gamaliel Whitehead on 09-16-2024 Serum or plasma creatinine measurement (mass/volume) 0.66 mg/dL 0.55-1.02 [facility] Direct serum free thyroxine (FT4) measurementOrdered By: Gamaliel Whitehead on 09-16-2024 Direct serum free thyroxine (FT4) measurement 0.83 ng/dL 0.76-1.46 [facility] Estimated glomerular filtrat ion rate (GFR) AmericanOrdered By: Gamaliel Whitehead on 09-16-2024 Estimated glomerular filtration rate (GFR) 114 mL/min >60 [facility] Free T3on 09-16-2024 Free T3 [Mass/Vol] 2.0 pg/mL Low 2.18-3.98 [facility] Comment on above: Performed By: #### L 506.0400, L500.2500, L501.9520, L500.4100, L501.80552 ####[facility] [address] [place], [address] Free A8Bekbrok By: Gamaliel romano on 09-16-2024 Free T3 [Mass/Vol] 2.0 pg/mL Low 2.18-3.98 [facility] Free T3 2.0 pg/mL Low 2.18-3.98 [facility] Glomerular filtration rate ( GFR) estimationOrdered By: Gamaliel Whitehead on 09-16-2024 GFR/1.73 sq M.predicted among non-blacks MDRD (S/P/Bld) [Vol rate/Area] 94 mL/min/{1.73_m2} >60 [facility] Glomerular filtration rate (GFR) estimation 94 mL/min >60 [facility] Glucose measurementOrdered B y: Gamaliel Whitehead on 09-16-2024 Glucose [Mass/Vol] 90 mg/dL 74-106 [facility] Glucose measurement 90 mg/dL 74-106 [facility] High density lipoprotein (HD L) measurementOrdered By: Gamaliel Whitehead on 09-16-2024 High density lipoprotein (HDL) measurement 81 mg/dL >40 [facility] High density lipoprotein (HDL) measurement 81 mg/dL >40 [facility] Lipid Profileon 09-16-2024 Cholesterol [Mass/Vol] 195 mg/dL Normal 200 [facility] Comment on above: Result Comment: <200 mg/dL Desirable 200-240 mg/dL Borderline >240 mg/dL High Risk Performed By: #### L 506.0400, L500.2500, L501.9520, L500.4100, L501.76921 ####[facility] [address] [facility] [place], [address] Cholesterol in HDL [Mass/Vol] 81 mg/dL Normal [facility] Comment on above: Result Comment: The drugs N-Acetylcysteine and Metamizole may falselydepress this assay. Reference Range HDL <40 mg/dL Low HDL Cholesterol HDL >or= 60 mg/dL High HDL Cholesterol Performed By: #### L 506.0400, L500.2500, L501.9520, L500.4100, L501.37101 ####[facility] [address] [place], [address] Cholesterol in LDL [Mass/Vol] 102 mg/dL Normal 0-130 [facility] Comment on above: Performed By: #### L 506.0400, L500.2500, L501.9520, L500.4100, L501.66428 ####[facility] [address] [place], [address] Cholesterol in VLDL [Mass/Vol] 12 mg/dL Normal 5-40 [facility] Comment on above: Performed By: #### L 506.0400, L500.2500, L501.9520, L500.4100, L501.92767 ####[facility] [address] [place], [address] Triglyceride [Mass/Vol] 60 mg/dL Normal [facility] Comment on above: Result Comment: The drugs N-Acetylcysteine and Metamizole may falselydepress this assay.Serum Triglycerides Reference Interval Normal <150 mg/dL Borderline high 150 - 199 mg/dL High 200 - 499 mg/dL Very High > or = 500 mg/dL Performed By: #### L 506.0400, L500.2500, L501.9520, L500.4100, L501.89195 ####[facility] [address] [place], [address] Low density lipoprotein (LDL ) cholesterol measurementOrdered By: Gamaliel Whitehead on 09-16-2024 Low density lipoprotein (LDL) cholesterol measurement 102 mg/dL 0-130 [facility] Low density lipoprotein (LDL) cholesterol measurement 102 mg/dL 0-130 [facility] Potassium measurementOrdered By: Gamaliel Whitehead on 09-16-2024 Potassium [Moles/Vol] 3.6 mmol/L 3.5-5.1 [facility] Potassium measurement 3.6 mmol/L 3.5-5.1 [facility] Serum anion gap measurementO rdered By: Gamaliel Whitehead on 09-16-2024 Serum anion gap measurement 7 5-15 [facility] Serum or plasma calcium sonali urement (mass/volume)Ordered By: Gamaliel Whitehead on 09-16-2024 Calcium [Mass/Vol] 9.1 mg/dL 8.5-10.1 [facility] Serum or plasma cholesterol measurement (mass/volume)Ordered By: Gamaliel Whitehead on 09-16-2024 Cholesterol [Mass/Vol] 195 mg/dL <200 [facility] Serum or plasma creatinine m easurement (mass/volume)Ordered By: Gamaliel Whitehead on 09-16-2024 Creatinine [Mass/Vol] 0.66 mg/dL 0.55-1.02 [facility] Serum or plasma thyroid stim ulating hormone (TSH) measurement (units/volume)Ordered By: Gamaliel Whitehead on 09-16-2024 TSH Qn 3.680 uIU/mL 0.358-3.740 [facility] Serum or plasma urea nitroge n measurement (mass/volume)Ordered By: Gamaliel Whitehead on 09-16-2024 Urea nitrogen [Mass/Vol] 26 mg/dL High 7-18 [facility] Sodium levelOrdered By: Gamaliel Whitehead on 09-16-2024 Sodium [Moles/Vol] 140 mmol/L 136-145 [facility] Sodium level 140 mmol/L 136-145 [facility] T4 Free Directon 09-16-2024 T4 FREE DIRECT 0.83 ng/dL Normal 0.76-1.46 [facility] Comment on above: Performed By: #### L 506.0400, L500.2500, L501.9520, L500.4100, L501.42730 ####[facility] [address] [place], [place], [id number] TSH QnOrdered By: Gamaliel rao on 09-16-2024 Serum or plasma thyroid stimulating hormone (TSH) measurement (units/volume) 3.680 uIU/mL 0.358-3.740 [facility] Thyroid Stim Hormone (TSH)on 09-16-2024 TSH 3.680 uIU/mL Normal 0.358-3.740 [facility] Comment on above: Performed By: #### L 506.0400, L500.2500, L501.9520, L500.4100, L501.89141 ####[facility] [address] [place], [place], [id number] Triglycerides measurementOrd ered By: Gamaliel Whitehead on 09-16-2024 Triglycerides measurement 60 mg/dL <199 [facility] Urea nitrogen [Mass/Vol]Orde red By: Gamaliel Whitehead on 09-16-2024 Serum or plasma urea nitrogen measurement (mass/volume) 26 mg/dL High 7-18 [facility] Very low density lipoprotein (VLDL) cholesterol measurementOrdered By: Gamaliel Whitehead on 09-16-2024 Very low density lipoprotein (VLDL) cholesterol measurement 12 mg/dL 5-40 [facility] Very low density lipoprotein (VLDL) cholesterol measurement 12 mg/dL 5-40 [facility] Bedside Glucoseon 08-12-2024 FINGERSTICK GLU 101 mg/dL Normal 74-106 [facility] Comment on above: Result Comment: CHLOE JUAN OF PATIENT CARE PER NURSING PROTOCOL Performed By: #### L 501.080 ####[facility] [address] [place], [address] Glucose measurement at bedsi deOrdered By: Shlomo Goins on 08-12-2024 Glucose measurement at bedside 101 mg/dL 74-106 [facility] Absolute neutrophil countOrd ered By: Shlomo Goins on 08-11-2024 Absolute neutrophil count 3.9 X10^3/uL 2.0-7.7 [facility] Basic Metabolic Profile (BMP )on 08-11-2024 BUN/CRE 27.3 RATIO High 10-20 [facility] Comment on above: Performed By: #### L 500.2500, L100.0100 ####[facility] [address] [place], [address] CA,Total 9.3 mg/dL Normal 8.5-10.1 [facility] Comment on above: Performed By: #### L 500.2500, L100.0100 ####[facility] [address] [place], [address] Chloride [Moles/Vol] 103 mmol/L Normal 98-107 [facility] Comment on above: Performed By: #### L 500.2500, L100.0100 ####[facility] [address] [place], [address] CO2 [Moles/Vol] 26.0 mmol/L Normal 21.0-32.0 [facility] Comment on above: Performed By: #### L 500.2500, L100.0100 ####[facility] [address] [place], [address] Creatinine [Mass/Vol] 0.77 mg/dL Normal 0.55-1.02 [facility] Comment on above: Result Comment: The validity of the calculated GFR GFRAA in patients over70 years has not been determined. Clinical correlation isessential. Performed By: #### L 500.2500, L100.0100 ####[facility] [address] [place], [address] ECRCL 75.71 ml/min Normal [facility] Comment on above: Performed By: #### L 500.2500, L100.0100 ####[facility] [address] [place], [address] EST GFR - AA 95 mL/min Normal >60 [facility] Comment on above: Result Comment: Afri can [place] GFR Calc Performed By: #### L 500.2500, L100.0100 ####[facility] [address] [place], [address] GAP 7 Normal 5-15 [facility] Comment on above: Performed By: #### L 500.2500, L100.0100 ####[facility] [address] [place], [address] GFR/1.73 sq M.predicted among non-blacks MDRD (S/P/Bld) [Vol rate/Area] 79 mL/min/{1.73_m2} Normal >60 [facility] Comment on above: Result Comment: Non- GFR Calc Performed By: #### L 500.2500, L100.0100 ####[facility] [address] [place], [address] Glucose [Mass/Vol] 119 mg/dL High 74-106 [facility] Comment on above: Result Comment: Fast ing Glucose result from 100 to 125 mg/dLsuggests IMPAIRED HOMEOSTASIS per A.D.A. criteria. Performed By: #### L 500.2500, L100.0100 ####[facility] [address] [place], [address] Potassium [Moles/Vol] 3.4 mmol/L Low 3.5-5.1 [facility] Comment on above: Performed By: #### L 500.2500, L100.0100 ####[facility] [address] [place], [address] Sodium [Moles/Vol] 137 mmol/L Normal 136-145 [facility] Comment on above: Performed By: #### L 500.2500, L100.0100 ####[facility] [address] [place], [address] Urea nitrogen [Mass/Vol] 21 mg/dL High 7-18 [facility] Comment on above: Performed By: #### L 500.2500, L100.0100 ####[facility] [address] [place], [address] Basophil percentageOrdered B y: Shlomo Goins on 08-11-2024 Basophil percentage 0.9 % 0-1 [facility] Bedside Glucoseon 08-11-2024 FINGERSTICK GLU 93 mg/dL Normal 74-106 [facility] Comment on above: Result Comment: CHLOE GEMENT OF PATIENT CARE PER NURSING PROTOCOL Performed By: #### L 501.080 ####[facility] [address] [place], [address] FINGERSTICK GLU 111 mg/dL High 74-106 [facility] Comment on above: Result Comment: CHLOE GEMENT OF PATIENT CARE PER NURSING PROTOCOL Performed By: #### L 501.080 ####[facility] [address] [place], [address] FINGERSTICK GLU 112 mg/dL High 74-106 [facility] Comment on above: Result Comment: CHLOE JUAN OF PATIENT CARE PER NURSING PROTOCOL Performed By: #### L 501.080 ####[facility] [address] [place], [address] Blood urea nitrogen (BUN)/cr eatinine ratioOrdered By: Shlomo Goins on 08-11-2024 Blood urea nitrogen (BUN)/creatinine ratio 27.3 RATIO High 10-20 [facility] CBC W/Diff, Automatedon Absolute Lymph 3.97 X10 3/uL Normal 0.83-4.51 [facility] Comment on above: Performed By: #### L 500.2500, L100.0100 ####[facility] [address] [place], [address] Absolute Neut 3.9 X10 3/uL Normal 2.0-7.7 [facility] Comment on above: Performed By: #### L 500.2500, L100.0100 ####[facility] [address] [place], [address] Basophils/100 WBC (Bld) 0.9 % Normal 0-1 [facility] Comment on above: Performed By: #### L 500.2500, L100.0100 ####[facility] [address] [place], [address] Eosinophils/100 WBC (Bld) 2.6 % Normal 0-5 [facility] Comment on above: Performed By: #### L 500.2500, L100.0100 ####[facility] [address] [place], [address] Erythrocyte distribution width (RBC) [Ratio] 12.8 % Normal 11.6-14.6 [facility] Comment on above: Performed By: #### L 500.2500, L100.0100 ####[facility] [address] [place], [address] Hematocrit (Bld) [Volume fraction] 37.5 % Normal 37-47 [facility] Comment on above: Performed By: #### L 500.2500, L100.0100 ####[facility] [address] [place], [address] Hemoglobin (Bld) [Mass/Vol] 12.1 g/dL Normal 12.0-15.0 [facility] Comment on above: Performed By: #### L 500.2500, L100.0100 ####[facility] [address] [place], [address] IG% 0.700 Normal 0.0-0.9 [facility] Comment on above: Result Comment: IG% - Immature Granulocytes (promyelocytes, myelocytes andmetamyelocytes) > 1% indicates that a LEFT SHIFT is Present. Performed By: #### L 500.2500, L100.0100 ####[facility] [address] [place], [address] Lymphocytes/100 WBC (Bld) 44.5 % High 19-41 [facility] Comment on above: Performed By: #### L 500.2500, L100.0100 ####[facility] [address] [place], [address] MCH (RBC) [Entitic mass] 31.7 pg Normal 27.0-32.0 [facility] Comment on above: Performed By: #### L 500.2500, L100.0100 ####[facility] [address] [place], [address] MCHC (RBC) [Mass/Vol] 32.3 g/dL Normal 32-36 [facility] Comment on above: Performed By: #### L 500.2500, L100.0100 ####[facility] [address] [place], [address] MCV (RBC) [Entitic vol] 98.2 fL Normal 81-99 [facility] Comment on above: Performed By: #### L 500.2500, L100.0100 ####[facility] [address] [place], [address] Monocytes/100 WBC (Bld) 8.0 % Normal 0-10 [facility] Comment on above: Performed By: #### L 500.2500, L100.0100 ####[facility] [address] [place], [address] Neutrophils/100 WBC (Bld) 43.3 % Low 47-70 [facility] Comment on above: Performed By: #### L 500.2500, L100.0100 ####[facility] [address] [place], [address] Nucleated RBC (Bld) [#/Vol] 0 10*3/uL Normal 0-5 [facility] Comment on above: Performed By: #### L 500.2500, L100.0100 ####[facility] [address] [place], [address] Platelet mean volume (Bld) [Entitic vol] 8.9 fL Normal 6.2-12.0 [facility] Comment on above: Performed By: #### L 500.2500, L100.0100 ####[facility] [address] [place], [address] Platelets (Bld) [#/Vol] 313 10*3/uL Normal 150-450 [facility] Comment on above: Performed By: #### L 500.2500, L100.0100 ####[facility] [address] [place], [address] RBC (Bld) [#/Vol] 3.82 10*6/uL Low 4.2-5.4 [facility] Comment on above: Performed By: #### L 500.2500, L100.0100 ####[facility] [address] [place], [address] RDW SD 46.0 fl High 35.1-43.9 [facility] Comment on above: Performed By: #### L 500.2500, L100.0100 ####[facility] [address] [place], [address] WBC (Bld) [#/Vol] 8.9 10*3/uL Normal 4.4-11.0 [facility] Comment on above: Performed By: #### L 500.2500, L100.0100 ####[facility] [address] [place], [address] Calcium [Mass/Vol]Ordered By : Shlomo Goins on 08-11-2024 Serum or plasma calcium measurement (mass/volume) 9.3 mg/dL 8.5-10.1 [facility] Carbon dioxide measurementOr dered By: Shlomo Goins on 08-11-2024 Carbon dioxide measurement 26.0 mmol/L 21.0-32.0 [facility] Chloride measurementOrdered By: Shlomo Goins on 08-11-2024 Chloride measurement 103 mmol/L 98-107 [facility] Creatinine [Mass/Vol]Ordered By: Shlomo Goins on 08-11-2024 Serum or plasma creatinine measurement (mass/volume) 0.77 mg/dL 0.55-1.02 [facility] Eosinophil percentageOrdered By: Shlomo Goins on 08-11-2024 Eosinophil percentage 2.6 % 0-5 [facility] Erythrocyte distribution wid th (RBC) [Ratio]Ordered By: Shlomo Goins on 08-11-2024 Erythrocyte distribution width ratio 12.8 % 11.6-14.6 [facility] Erythrocyte distribution width standard deviation 46.0 fl High 35.1-43.9 [facility] Estimated glomerular filtrat ion rate (GFR) AmericanOrdered By: Shlomo Goins on 08-11-2024 Estimated glomerular filtration rate (GFR) 95 mL/min >60 [facility] Estimation of creatinine fish aranceOrdered By: Shlomo Goins on 08-11-2024 Estimation of creatinine clearance 75.71 ml/min [facility] Glomerular filtration rate ( GFR) estimationOrdered By: Shlomo Goins on 08-11-2024 Glomerular filtration rate (GFR) estimation 79 mL/min >60 [facility] Glucose measurementOrdered B y: Shlomo Goins on 08-11-2024 Glucose measurement 119 mg/dL High 74-106 [facility] Hematocrit Auto (Bld) [Volum e fraction]Ordered By: Shlomo Goins on 08-11-2024 Automated blood hematocrit (percentage) 37.5 % 37-47 [facility] Hemoglobin measurementOrdere d By: Shlomo Goins on 08-11-2024 Hemoglobin measurement 12.1 g/dL 12.0-15.0 [facility] Immature granulocytes/100 WB C Auto (Bld)Ordered By: Shlomo Goins on 08-11-2024 Automated immature granulocyte percentage 0.700 % 0.0-0.9 [facility] Lymphocytes Auto (Unsp spec) [#/Vol]Ordered By: Shlomo Goins on 08-11-2024 Absolute lymphocyte count 3.97 X10^3/uL 0.83-4. 51 [facility] Lymphocytes/100 WBC Auto (Un sp spec)Ordered By: Shlomo Goins on 08-11-2024 Automated lymphocyte count as percentage of total leukocytes 44.5 % High 19-41 [facility] MCV (RBC) [Entitic vol]Order ed By: Shlomo Goins on 08-11-2024 MCV (mean corpuscular volume) determination 98.2 fL 81-99 [facility] Mean corpuscular hemoglobin (MCH) determinationOrdered By: Shlomo Goins on 08-11-2024 Mean corpuscular hemoglobin (MCH) determination 31.7 pg 27.0-32.0 [facility] Mean corpuscular hemoglobin concentration (MCHC) determinationOrdered By: Shlomo Goins on 08-11-2024 Mean corpuscular hemoglobin concentration (MCHC) determination 32.3 g/dL 32-36 [facility] Mean platelet volume determi nationOrdered By: Shlomo Goins on 08-11-2024 Mean platelet volume determination 8.9 fl 6.2-12.0 [facility] Monocyte percentageOrdered B y: Shlomo Goins on 08-11-2024 Monocyte percentage 8.0 % 0-10 [facility] Neutrophil percentageOrdered By: Shlomo Goins on 08-11-2024 Neutrophil percentage 43.3 % Low 47-70 [facility] Nucleated red blood cell per centageOrdered By: Shlomo Goins on 08-11-2024 Nucleated red blood cell percentage 0 % 0-5 [facility] Platelet countOrdered By: Lelo Goins on 08-11-2024 Platelet count 313 K/mm3 150-450 [facility] Potassium measurementOrdered By: Shlomo Goins on 08-11-2024 Potassium measurement 3.4 mmol/L Low 3.5-5.1 [facility] RBC Auto (Bld) [#/Vol]Ordere d By: Shlomo Goins on 08-11-2024 Automated blood erythrocyte count 3.82 M/mm3 Low 4.2-5.4 [facility] Serum anion gap measurementO rdered By: Shlomo Goins on 08-11-2024 Serum anion gap measurement 7 5-15 [facility] Sodium levelOrdered By: Diego Goins on 08-11-2024 Sodium level 137 mmol/L 136-145 [facility] Urea nitrogen [Mass/Vol]Orde red By: Shlomo Goins on 08-11-2024 Serum or plasma urea nitrogen measurement (mass/volume) 21 mg/dL High 7-18 [facility] White blood cell (WBC) count Ordered By: Shlomo Goins on 08-11-2024 White blood cell (WBC) count 8.9 K/mm3 4.4-11.0 [facility] Basic Metabolic Profile (BMP )on 08-10-2024 BUN/CRE 22.4 RATIO High 10-20 [facility] Comment on above: Performed By: #### L 100.0100, L500.2500 ####[facility] [address] [place], [address] CA,Total 9.1 mg/dL Normal 8.5-10.1 [facility] Comment on above: Performed By: #### L 100.0100, L500.2500 ####[facility] [address] [place], [address] Chloride [Moles/Vol] 102 mmol/L Normal 98-107 [facility] Comment on above: Performed By: #### L 100.0100, L500.2500 ####[facility] [address] [place], [address] CO2 [Moles/Vol] 28.0 mmol/L Normal 21.0-32.0 [facility] Comment on above: Performed By: #### L 100.0100, L500.2500 ####[facility] [address] [place], [address] Creatinine [Mass/Vol] 0.72 mg/dL Normal 0.55-1.02 [facility] Comment on above: Result Comment: The validity of the calculated GFR GFRAA in patients over70 years has not been determined. Clinical correlation isessential. Performed By: #### L 100.0100, L500.2500 ####[facility] [address] [place], [address] ECRCL 76.22 ml/min Normal [facility] Comment on above: Performed By: #### L 100.0100, L500.2500 ####[facility] [address] [place], [address] EST GFR - AA 103 mL/min Normal >60 [facility] Comment on above: Result Comment: Afri can [place] GFR Calc Performed By: #### L 100.0100, L500.2500 ####[facility] [address] [place], [address] GAP 6 Normal 5-15 [facility] Comment on above: Performed By: #### L 100.0100, L500.2500 ####[facility] [address] [place], [address] GFR/1.73 sq M.predicted among non-blacks MDRD (S/P/Bld) [Vol rate/Area] 85 mL/min/{1.73_m2} Normal >60 [facility] Comment on above: Result Comment: Non- GFR Calc Performed By: #### L 100.0100, L500.2500 ####[facility] [address] [place], [address] Glucose [Mass/Vol] 138 mg/dL High 74-106 [facility] Comment on above: Result Comment: Fast ing Glucose result greater than or equal to 126 mg/dLsuggests DIABETES MELLITUS per A.D.A. criteria. Performed By: #### L 100.0100, L500.2500 ####[facility] [address] [place], [address] Potassium [Moles/Vol] 3.7 mmol/L Normal 3.5-5.1 [facility] Comment on above: Performed By: #### L 100.0100, L500.2500 ####[facility] [address] [place], [address] Sodium [Moles/Vol] 136 mmol/L Normal 136-145 [facility] Comment on above: Performed By: #### L 100.0100, L500.2500 ####[facility] [address] [place], [address] Urea nitrogen [Mass/Vol] 16 mg/dL Normal 7-18 [facility] Comment on above: Performed By: #### L 100.0100, L500.2500 ####[facility] [address] [place], [address] Bedside Glucoseon 08-10-2024 FINGERSTICK GLU 124 mg/dL High 74-106 [facility] Comment on above: Result Comment: CHLOE GEMENT OF PATIENT CARE PER NURSING PROTOCOL Performed By: #### L 501.080 ####[facility] [address] [place], [address] FINGERSTICK GLU 115 mg/dL High 74-106 [facility] Comment on above: Result Comment: CHLOE GEMENT OF PATIENT CARE PER NURSING PROTOCOL Performed By: #### L 501.080 ####[facility] [address] [place], [address] FINGERSTICK GLU 128 mg/dL High 74-106 [facility] Comment on above: Result Comment: CHLOE GEMENT OF PATIENT CARE PER NURSING PROTOCOL Performed By: #### L 501.080 ####[facility] [address] [place], [address] CBC W/Diff, Automatedon 12- Absolute Lymph 3.30 X10 3/uL Normal 0.83-4.51 [facility] Comment on above: Performed By: #### L 100.0100, L500.2500 ####[facility] [address] [place], [address] Absolute Neut 6.1 X10 3/uL Normal 2.0-7.7 [facility] Comment on above: Performed By: #### L 100.0100, L500.2500 ####[facility] [address] [place], [address] Basophils/100 WBC (Bld) 0.5 % Normal 0-1 [facility] Comment on above: Performed By: #### L 100.0100, L500.2500 ####[facility] [address] [place], [address] Eosinophils/100 WBC (Bld) 2.1 % Normal 0-5 [facility] Comment on above: Performed By: #### L 100.0100, L500.2500 ####[facility] [address] [place], [address] Erythrocyte distribution width (RBC) [Ratio] 12.7 % Normal 11.6-14.6 [facility] Comment on above: Performed By: #### L 100.0100, L500.2500 ####[facility] [address] [place], [address] Hematocrit (Bld) [Volume fraction] 36.8 % Low 37-47 [facility] Comment on above: Performed By: #### L 100.0100, L500.2500 ####[facility] [address] [place], [address] Hemoglobin (Bld) [Mass/Vol] 11.6 g/dL Low 12.0-15.0 [facility] Comment on above: Performed By: #### L 100.0100, L500.2500 ####[facility] [address] [place], [address] IG% 0.700 Normal 0.0-0.9 [facility] Comment on above: Result Comment: IG% - Immature Granulocytes (promyelocytes, myelocytes andmetamyelocytes) > 1% indicates that a LEFT SHIFT is Present. Performed By: #### L 100.0100, L500.2500 ####[facility] [address] [place], [address] Lymphocytes/100 WBC (Bld) 31.5 % Normal 19-41 [facility] Comment on above: Performed By: #### L 100.0100, L500.2500 ####[facility] [address] [place], [address] MCH (RBC) [Entitic mass] 31.0 pg Normal 27.0-32.0 [facility] Comment on above: Performed By: #### L 100.0100, L500.2500 ####[facility] [address] [place], [address] MCHC (RBC) [Mass/Vol] 31.5 g/dL Low 32-36 [facility] Comment on above: Performed By: #### L 100.0100, L500.2500 ####[facility] [address] [place], [address] MCV (RBC) [Entitic vol] 98.4 fL Normal 81-99 [facility] Comment on above: Performed By: #### L 100.0100, L500.2500 ####[facility] [address] [place], [address] Monocytes/100 WBC (Bld) 7.3 % Normal 0-10 [facility] Comment on above: Performed By: #### L 100.0100, L500.2500 ####[facility] [address] [place], [address] Neutrophils/100 WBC (Bld) 57.9 % Normal 47-70 [facility] Comment on above: Performed By: #### L 100.0100, L500.2500 ####[facility] [address] [place], [address] Nucleated RBC (Bld) [#/Vol] 0 10*3/uL Normal 0-5 [facility] Comment on above: Performed By: #### L 100.0100, L500.2500 ####[facility] [address] [place], [address] Platelet mean volume (Bld) [Entitic vol] 8.8 fL Normal 6.2-12.0 [facility] Comment on above: Performed By: #### L 100.0100, L500.2500 ####[facility] [address] [place], [address] Platelets (Bld) [#/Vol] 322 10*3/uL Normal 150-450 [facility] Comment on above: Performed By: #### L 100.0100, L500.2500 ####[facility] [address] [place], [address] RBC (Bld) [#/Vol] 3.74 10*6/uL Low 4.2-5.4 [facility] Comment on above: Performed By: #### L 100.0100, L500.2500 ####[facility] [address] [place], [address] RDW SD 45.7 fl High 35.1-43.9 [facility] Comment on above: Performed By: #### L 100.0100, L500.2500 ####[facility] [address] [place], [address] WBC (Bld) [#/Vol] 10.5 10*3/uL Normal 4.4-11.0 [facility] Comment on above: Performed By: #### L 100.0100, L500.2500 ####[facility] [address] [place], [address] ALP [Catalytic activity/Vol] Ordered By: Valeria Sarah on 08-09-2024 Serum or plasma alkaline phosphatase measurement 108 U/L 45-117 [facility] ALT [Catalytic activity/Vol] Ordered By: Valeria Sarah on 08-09-2024 Serum or plasma alanine aminotransferase (ALT) measurement 21 U/L 13-56 [facility] Albumin [Mass/Vol]Ordered By : Valeria Sarah on 08-09-2024 Serum or plasma albumin measurement (mass/volume) 3.5 g/dL 3.2-5.0 [facility] Albumin to globulin ratioOrd ered By: Valeria Sarah on 08-09-2024 Albumin to globulin ratio 1.0 RATIO 0.9-2.4 [facility] Bedside Glucoseon 08-09-2024 FINGERSTICK GLU 134 mg/dL High 74-106 [facility] Comment on above: Result Comment: CHLOE GEMENT OF PATIENT CARE PER NURSING PROTOCOL Performed By: #### L 501.080 ####[facility] [address] [place], [address] FINGERSTICK GLU 195 mg/dL High 74-106 [facility] Comment on above: Result Comment: CHLOE GEMENT OF PATIENT CARE PER NURSING PROTOCOL Performed By: #### L 501.080 ####[facility] [address] [place], [address] Bilirubin, totalOrdered By: Valeria Smith on 08-09-2024 Bilirubin, total 0.40 mg/dL 0.20-1.00 [facility] CBC W/Diff, Automatedon 07-13 Absolute Lymph 2.88 X10 3/uL Normal 0.83-4.51 [facility] Comment on above: Performed By: #### L 100.0100, L500.4050 ####[facility] [address] [place], [address] Absolute Neut 4.3 X10 3/uL Normal 2.0-7.7 [facility] Comment on above: Performed By: #### L 100.0100, L500.4050 ####[facility] [address] [place], [address] Basophils/100 WBC (Bld) 0.6 % Normal 0-1 [facility] Comment on above: Performed By: #### L 100.0100, L500.4050 ####[facility] [address] [place], [address] Eosinophils/100 WBC (Bld) 2.0 % Normal 0-5 [facility] Comment on above: Performed By: #### L 100.0100, L500.4050 ####[facility] [address] [place], [address] Erythrocyte distribution width (RBC) [Ratio] 12.8 % Normal 11.6-14.6 [facility] Comment on above: Performed By: #### L 100.0100, L500.4050 ####[facility] [address] [place], [address] Hematocrit (Bld) [Volume fraction] 38.0 % Normal 37-47 [facility] Comment on above: Performed By: #### L 100.0100, L500.4050 ####[facility] [address] [place], [address] Hemoglobin (Bld) [Mass/Vol] 11.8 g/dL Low 12.0-15.0 [facility] Comment on above: Performed By: #### L 100.0100, L500.4050 ####[facility] [address] [place], [address] IG% 0.500 Normal 0.0-0.9 [facility] Comment on above: Result Comment: IG% - Immature Granulocytes (promyelocytes, myelocytes andmetamyelocytes) > 1% indicates that a LEFT SHIFT is Present. Performed By: #### L 100.0100, L500.4050 ####[facility] [address] [place], [address] Lymphocytes/100 WBC (Bld) 35.5 % Normal 19-41 [facility] Comment on above: Performed By: #### L 100.0100, L500.4050 ####[facility] [address] [place], [address] MCH (RBC) [Entitic mass] 31.0 pg Normal 27.0-32.0 [facility] Comment on above: Performed By: #### L 100.0100, L500.4050 ####[facility] [address] [place], [address] MCHC (RBC) [Mass/Vol] 31.1 g/dL Low 32-36 [facility] Comment on above: Performed By: #### L 100.0100, L500.4050 ####[facility] [address] [place], [address] MCV (RBC) [Entitic vol] 99.7 fL High 81-99 [facility] Comment on above: Performed By: #### L 100.0100, L500.4050 ####[facility] [address] [place], [address] Monocytes/100 WBC (Bld) 8.9 % Normal 0-10 [facility] Comment on above: Performed By: #### L 100.0100, L500.4050 ####[facility] [address] [place], [address] Neutrophils/100 WBC (Bld) 52.5 % Normal 47-70 [facility] Comment on above: Performed By: #### L 100.0100, L500.4050 ####[facility] [address] [place], [address] Nucleated RBC (Bld) [#/Vol] 0 10*3/uL Normal 0-5 [facility] Comment on above: Performed By: #### L 100.0100, L500.4050 ####[facility] [address] [place], [address] Platelet mean volume (Bld) [Entitic vol] 9.0 fL Normal 6.2-12.0 [facility] Comment on above: Performed By: #### L 100.0100, L500.4050 ####[facility] [address] [place], [address] Platelets (Bld) [#/Vol] 299 10*3/uL Normal 150-450 [facility] Comment on above: Performed By: #### L 100.0100, L500.4050 ####[facility] [address] [place], [address] RBC (Bld) [#/Vol] 3.81 10*6/uL Low 4.2-5.4 [facility] Comment on above: Performed By: #### L 100.0100, L500.4050 ####[facility] [address] [place], [address] RDW SD 47.1 fl High 35.1-43.9 [facility] Comment on above: Performed By: #### L 100.0100, L500.4050 ####[facility] [address] [place], [address] WBC (Bld) [#/Vol] 8.1 10*3/uL Normal 4.4-11.0 [facility] Comment on above: Performed By: #### L 100.0100, L500.4050 ####[facility] [address] [place], [address] Comprehensive Metabolic [facility] 08-09-2024 Albumin [Mass/Vol] 3.5 g/dL Normal 3.2-5.0 [facility] Comment on above: Performed By: #### L 100.0100, L500.4050 ####[facility] [address] [place], [address] Albumin/Globulin [Mass ratio] 1.0 {ratio} Normal 0.9-2.4 [facility] Comment on above: Performed By: #### L 100.0100, L500.4050 ####[facility] [address] [place], [address] ALK P 108 U/L Normal 45-117 [facility] Comment on above: Performed By: #### L 100.0100, L500.4050 ####[facility] [address] [place], [address] ALT [Catalytic activity/Vol] 21 U/L Normal 13-56 [facility] Comment on above: Performed By: #### L 100.0100, L500.4050 ####[facility] [address] [place], [address] AST [Catalytic activity/Vol] 19 U/L Normal 15-37 [facility] Comment on above: Performed By: #### L 100.0100, L500.4050 ####[facility] [address] [place], [address] Bilirubin [Mass/Vol] 0.40 mg/dL Normal 0.20-1.00 [facility] Comment on above: Result Comment: For patients on eltrombopag therapy, use of Dimension [place] TBIL is not recommended. Performed By: #### L 100.0100, L500.4050 ####[facility] [address] [place], [address] BUN/CRE 21.1 RATIO High 10-20 [facility] Comment on above: Performed By: #### L 100.0100, L500.4050 ####[facility] [address] [place], [address] CA,Total 9.0 mg/dL Normal 8.5-10.1 [facility] Comment on above: Performed By: #### L 100.0100, L500.4050 ####[facility] [address] [place], [address] Chloride [Moles/Vol] 107 mmol/L Normal 98-107 [facility] Comment on above: Performed By: #### L 100.0100, L500.4050 ####[facility] [address] [place], [address] CO2 [Moles/Vol] 26.0 mmol/L Normal 21.0-32.0 [facility] Comment on above: Performed By: #### L 100.0100, L500.4050 ####[facility] [address] [place], [address] Creatinine [Mass/Vol] 0.66 mg/dL Normal 0.55-1.02 [facility] Comment on above: Result Comment: The validity of the calculated GFR GFRAA in patients over70 years has not been determined. Clinical correlation isessential. Performed By: #### L 100.0100, L500.4050 ####[facility] [address] [place], [address] ECRCL 76.27 ml/min Normal [facility] Comment on above: Performed By: #### L 100.0100, L500.4050 ####[facility] [address] [place], [address] EST GFR - AA 113 mL/min Normal >60 [facility] Comment on above: Result Comment: Afri can [place] GFR Calc Performed By: #### L 100.0100, L500.4050 ####[facility] [address] [place], [address] GAP 3 Low 5-15 [facility] Comment on above: Performed By: #### L 100.0100, L500.4050 ####[facility] [address] [place], [address] GFR/1.73 sq M.predicted among non-blacks MDRD (S/P/Bld) [Vol rate/Area] 93 mL/min/{1.73_m2} Normal >60 [facility] Comment on above: Result Comment: Non- GFR Calc Performed By: #### L 100.0100, L500.4050 ####[facility] [address] [place], [address] Globulin (S) [Mass/Vol] 3.4 g/dL Normal 2.2-4.2 [facility] Comment on above: Performed By: #### L 100.0100, L500.4050 ####[facility] [address] [place], [address] Glucose [Mass/Vol] 118 mg/dL High 74-106 [facility] Comment on above: Result Comment: Fast ing Glucose result from 100 to 125 mg/dLsuggests IMPAIRED HOMEOSTASIS per A.D.A. criteria. Performed By: #### L 100.0100, L500.4050 ####[facility] [address] [place], [address] Potassium [Moles/Vol] 3.8 mmol/L Normal 3.5-5.1 [facility] Comment on above: Performed By: #### L 100.0100, L500.4050 ####[facility] [address] [place], [address] Sodium [Moles/Vol] 137 mmol/L Normal 136-145 [facility] Comment on above: Performed By: #### L 100.0100, L500.4050 ####[facility] [address] [place], [address] T PROT 6.9 g/dL Normal 6.4-8.2 [facility] Comment on above: Performed By: #### L 100.0100, L500.4050 ####[facility] [address] [place], [address] Urea nitrogen [Mass/Vol] 14 mg/dL Normal 7-18 [facility] Comment on above: Performed By: #### L 100.0100, L500.4050 ####[facility] [address] [place], [address] Consultation - Orthopedicson 08-09-2024 Consultation - Orthopedics Normal [facility] No Panel InformationOrdered By: Valeria Smith on 08-09-2024 19 U/L 15-37 [facility] Serum globulin measurementOr dered By: Valeria Smith on 08-09-2024 Serum globulin measurement 3.4 g/dL 2.2-4.2 [facility] Total proteinOrdered By: Sayra luz marian White on 08-09-2024 Total protein 6.9 g/dL 6.4-8.2 [facility] Bedside Glucoseon 08-08-2024 FINGERSTICK GLU 115 mg/dL High 74-106 [facility] Comment on above: Result Comment: CHLOE GEMENT OF PATIENT CARE PER NURSING PROTOCOL Performed By: #### L 501.080 ####[facility] [address] [place], [address] FINGERSTICK GLU 142 mg/dL High 74-106 [facility] Comment on above: Result Comment: CHLOE GEMENT OF PATIENT CARE PER NURSING PROTOCOL Performed By: #### L 501.080 ####[facility] [address] [place], [address] CBC W/Diff, Automatedon 07-12 Absolute Lymph 2.00 X10 3/uL Normal 0.83-4.51 [facility] Comment on above: Performed By: #### L 501.9520, L501.5200, L500.4050, L100.0100, L501.2300 ####[facility] [address] [place], [address] Absolute Neut 7.4 X10 3/uL Normal 2.0-7.7 [facility] Comment on above: Performed By: #### L 501.9520, L501.5200, L500.4050, L100.0100, L501.2300 ####[facility] [address] [place], [address] Basophils/100 WBC (Bld) 0.4 % Normal 0-1 [facility] Comment on above: Performed By: #### L 501.9520, L501.5200, L500.4050, L100.0100, L501.2300 ####[facility] [address] [place], [address] Eosinophils/100 WBC (Bld) 0.7 % Normal 0-5 [facility] Comment on above: Performed By: #### L 501.9520, L501.5200, L500.4050, L100.0100, L501.2300 ####[facility] [address] [place], [address] Erythrocyte distribution width (RBC) [Ratio] 12.7 % Normal 11.6-14.6 [facility] Comment on above: Performed By: #### L 501.9520, L501.5200, L500.4050, L100.0100, L501.2300 ####[facility] [address] [place], [address] Hematocrit (Bld) [Volume fraction] 34.6 % Low 37-47 [facility] Comment on above: Performed By: #### L 501.9520, L501.5200, L500.4050, L100.0100, L501.2300 ####[facility] [address] [place], [address] Hemoglobin (Bld) [Mass/Vol] 11.1 g/dL Low 12.0-15.0 [facility] Comment on above: Performed By: #### L 501.9520, L501.5200, L500.4050, L100.0100, L501.2300 ####[facility] [address] [place], [address] IG% 0.400 Normal 0.0-0.9 [facility] Comment on above: Result Comment: IG% - Immature Granulocytes (promyelocytes, myelocytes andmetamyelocytes) > 1% indicates that a LEFT SHIFT is Present. Performed By: #### L 501.9520, L501.5200, L500.4050, L100.0100, L501.2300 ####[facility] [address] [place], [address] Lymphocytes/100 WBC (Bld) 19.5 % Normal 19-41 [facility] Comment on above: Performed By: #### L 501.9520, L501.5200, L500.4050, L100.0100, L501.2300 ####[facility] [address] [place], [address] MCH (RBC) [Entitic mass] 31.1 pg Normal 27.0-32.0 [facility] Comment on above: Performed By: #### L 501.9520, L501.5200, L500.4050, L100.0100, L501.2300 ####[facility] [address] [place], [address] MCHC (RBC) [Mass/Vol] 32.1 g/dL Normal 32-36 [facility] Comment on above: Performed By: #### L 501.9520, L501.5200, L500.4050, L100.0100, L501.2300 ####[facility] [address] [place], [address] MCV (RBC) [Entitic vol] 96.9 fL Normal 81-99 [facility] Comment on above: Performed By: #### L 501.9520, L501.5200, L500.4050, L100.0100, L501.2300 ####[facility] [address] [place], [address] Monocytes/100 WBC (Bld) 7.0 % Normal 0-10 [facility] Comment on above: Performed By: #### L 501.9520, L501.5200, L500.4050, L100.0100, L501.2300 ####[facility] [address] [place], [address] Neutrophils/100 WBC (Bld) 72.0 % High 47-70 [facility] Comment on above: Performed By: #### L 501.9520, L501.5200, L500.4050, L100.0100, L501.2300 ####[facility] [address] [place], [address] Nucleated RBC (Bld) [#/Vol] 0 10*3/uL Normal 0-5 [facility] Comment on above: Performed By: #### L 501.9520, L501.5200, L500.4050, L100.0100, L501.2300 ####[facility] [address] [place], [address] Platelet mean volume (Bld) [Entitic vol] 9.2 fL Normal 6.2-12.0 [facility] Comment on above: Performed By: #### L 501.9520, L501.5200, L500.4050, L100.0100, L501.2300 ####[facility] [address] [place], [address] Platelets (Bld) [#/Vol] 327 10*3/uL Normal 150-450 [facility] Comment on above: Performed By: #### L 501.9520, L501.5200, L500.4050, L100.0100, L501.2300 ####[facility] [address] [place], [address] RBC (Bld) [#/Vol] 3.57 10*6/uL Low 4.2-5.4 [facility] Comment on above: Performed By: #### L 501.9520, L501.5200, L500.4050, L100.0100, L501.2300 ####[facility] [address] [place], [address] RDW SD 45.4 fl High 35.1-43.9 [facility] Comment on above: Performed By: #### L 501.9520, L501.5200, L500.4050, L100.0100, L501.2300 ####[facility] [address] [place], [address] WBC (Bld) [#/Vol] 10.3 10*3/uL Normal 4.4-11.0 [facility] Comment on above: Performed By: #### L 501.9520, L501.5200, L500.4050, L100.0100, L501.2300 ####[facility] [address] [place], [address] Comprehensive Metabolic Prof ilon 08-08-2024 Albumin [Mass/Vol] 3.5 g/dL Normal 3.2-5.0 [facility] Comment on above: Performed By: #### L 501.9520, L501.5200, L500.4050, L100.0100, L501.2300 ####[facility] [address] [place], [address] Albumin/Globulin [Mass ratio] 1.1 {ratio} Normal 0.9-2.4 [facility] Comment on above: Performed By: #### L 501.9520, L501.5200, L500.4050, L100.0100, L501.2300 ####[facility] [address] [place], [address] ALK P 110 U/L Normal 45-117 [facility] Comment on above: Performed By: #### L 501.9520, L501.5200, L500.4050, L100.0100, L501.2300 ####[facility] [address] [place], [address] ALT [Catalytic activity/Vol] 20 U/L Normal 13-56 [facility] Comment on above: Performed By: #### L 501.9520, L501.5200, L500.4050, L100.0100, L501.2300 ####[facility] [address] [place], [address] AST [Catalytic activity/Vol] 20 U/L Normal 15-37 [facility] Comment on above: Performed By: #### L 501.9520, L501.5200, L500.4050, L100.0100, L501.2300 ####[facility] [address] [place], [address] Bilirubin [Mass/Vol] 0.50 mg/dL Normal 0.20-1.00 [facility] Comment on above: Result Comment: For patients on eltrombopag therapy, use of Dimension [place] TBIL is not recommended. Performed By: #### L 501.9520, L501.5200, L500.4050, L100.0100, L501.2300 ####[facility] [address] [place], [address] BUN/CRE 24.3 RATIO High 10-20 [facility] Comment on above: Performed By: #### L 501.9520, L501.5200, L500.4050, L100.0100, L501.2300 ####[facility] [address] [place], [address] CA,Total 8.8 mg/dL Normal 8.5-10.1 [facility] Comment on above: Performed By: #### L 501.9520, L501.5200, L500.4050, L100.0100, L501.2300 ####[facility] [address] [place], [address] Chloride [Moles/Vol] 107 mmol/L Normal 98-107 [facility] Comment on above: Performed By: #### L 501.9520, L501.5200, L500.4050, L100.0100, L501.2300 ####[facility] [address] [place], [address] CO2 [Moles/Vol] 27.0 mmol/L Normal 21.0-32.0 [facility] Comment on above: Performed By: #### L 501.9520, L501.5200, L500.4050, L100.0100, L501.2300 ####[facility] [address] [place], [address] Creatinine [Mass/Vol] 0.62 mg/dL Normal 0.55-1.02 [facility] Comment on above: Result Comment: The validity of the calculated GFR GFRAA in patients over70 years has not been determined. Clinical correlation isessential. Performed By: #### L 501.9520, L501.5200, L500.4050, L100.0100, L501.2300 ####[facility] [address] [place], [address] ECRCL 76.27 ml/min Normal [facility] Comment on above: Performed By: #### L 501.9520, L501.5200, L500.4050, L100.0100, L501.2300 ####[facility] [address] [place], [address] EST GFR - AA 122 mL/min Normal >60 [facility] Comment on above: Result Comment: Afri can [place] GFR Calc Performed By: #### L 501.9520, L501.5200, L500.4050, L100.0100, L501.2300 ####[facility] [address] [place], [address] GAP 4 Low 5-15 [facility] Comment on above: Performed By: #### L 501.9520, L501.5200, L500.4050, L100.0100, L501.2300 ####[facility] [address] [place], [address] GFR/1.73 sq M.predicted among non-blacks MDRD (S/P/Bld) [Vol rate/Area] 101 mL/min/{1.73_m2} Normal >60 [facility] Comment on above: Result Comment: Non- GFR Calc Performed By: #### L 501.9520, L501.5200, L500.4050, L100.0100, L501.2300 ####[facility] [address] [place], [address] Globulin (S) [Mass/Vol] 3.1 g/dL Normal 2.2-4.2 [facility] Comment on above: Performed By: #### L 501.9520, L501.5200, L500.4050, L100.0100, L501.2300 ####[facility] [address] [place], [address] Glucose [Mass/Vol] 125 mg/dL High 74-106 [facility] Comment on above: Result Comment: Fast ing Glucose result from 100 to 125 mg/dLsuggests IMPAIRED HOMEOSTASIS per A.D.A. criteria. Performed By: #### L 501.9520, L501.5200, L500.4050, L100.0100, L501.2300 ####[facility] [address] [place], [address] Potassium [Moles/Vol] 3.2 mmol/L Low 3.5-5.1 [facility] Comment on above: Performed By: #### L 501.9520, L501.5200, L500.4050, L100.0100, L501.2300 ####[facility] [address] [place], [address] Sodium [Moles/Vol] 138 mmol/L Normal 136-145 [facility] Comment on above: Performed By: #### L 501.9520, L501.5200, L500.4050, L100.0100, L501.2300 ####[facility] [address] [place], [address] T PROT 6.6 g/dL Normal 6.4-8.2 [facility] Comment on above: Performed By: #### L 501.9520, L501.5200, L500.4050, L100.0100, L501.2300 ####[facility] [address] [place], [address] Urea nitrogen [Mass/Vol] 15 mg/dL Normal 7-18 [facility] Comment on above: Performed By: #### L 501.9520, L501.5200, L500.4050, L100.0100, L501.2300 ####[facility] [address] [place], [address] HbA1c (Bld) [Mass fraction]O rdered By: Valeria Smith on 08-08-2024 Hemoglobin A1c percentage 5.2 % 3.8-5.6 [facility] Hemoglobin A1con 08-08-2024 HbA1c (Bld) [Mass fraction] 5.2 % Normal 3.8-5.6 [facility] Comment on above: Order Comment: Comme nts: add to am labs Result Comment: Norm al < 5.7 % Prediabetic 5.7 - 6.4 % Diabetic >or= 6.5 % Please note range changes. Performed By: #### L 501.9930 ####[facility] [address] [place], [address] Magnesiumon 08-08-2024 Magnesium [Mass/Vol] 2.2 mg/dL Normal 1.6-2.6 [facility] Comment on above: Performed By: #### L 501.9520, L501.5200, L500.4050, L100.0100, L501.2300 ####[facility] [address] [place], [address] Magnesium measurementOrdered By: Alexandra Lee on 08-08-2024 Magnesium measurement 2.2 mg/dL 1.6-2.6 [facility] Phosphoruson 08-08-2024 Phosphate [Mass/Vol] 3.1 mg/dL Normal 2.5-4.9 [facility] Comment on above: Performed By: #### L 501.9520, L501.5200, L500.4050, L100.0100, L501.2300 ####[facility] [address] [place], [address] Phosphorus measurementOrdere d By: Alexandra Lee on 08-08-2024 Phosphorus measurement 3.1 mg/dL 2.5-4.9 [facility] TSH QnOrdered By: Alexandra almendarez on 08-08-2024 Serum or plasma thyroid stimulating hormone (TSH) measurement (units/volume) 1.390 uIU/mL 0.358-3.740 [facility] Thyroid Stim Hormone (TSH)on 08-08-2024 TSH 1.390 uIU/mL Normal 0.358-3.740 [facility] Comment on above: Performed By: #### L 501.9520, L501.5200, L500.4050, L100.0100, L501.2300 ####[facility] [address] [place], [address] Amorphous sediment LM Ql (Ur ine sed)Ordered By: Lisa Barraza on 08-07-2024 Amorphous sediment detection in urine sediment by light microscopy 1+ [facility] Bacteria LM.HPF (Urine sed) [#/Area]Ordered By: Lisa Barraza on 08-07-2024 Urine sediment bacteria count by microscopy (number/high power field) 1+ /hpf None Seen [facility] Basic Metabolic Profile (BMP )on 08-07-2024 BUN/CRE 23.7 RATIO High 10-20 [facility] Comment on above: Performed By: #### L 500.2500, L100.0100 ####[facility] [address] [place], [address] CA,Total 8.6 mg/dL Normal 8.5-10.1 [facility] Comment on above: Performed By: #### L 500.2500, L100.0100 ####[facility] [address] [place], [address] Chloride [Moles/Vol] 108 mmol/L High 98-107 [facility] Comment on above: Performed By: #### L 500.2500, L100.0100 ####[facility] [address] [place], [address] CO2 [Moles/Vol] 22.0 mmol/L Normal 21.0-32.0 [facility] Comment on above: Performed By: #### L 500.2500, L100.0100 ####[facility] [address] [place], [address] Creatinine [Mass/Vol] 0.68 mg/dL Normal 0.55-1.02 [facility] Comment on above: Result Comment: The validity of the calculated GFR GFRAA in patients over70 years has not been determined. Clinical correlation isessential. Performed By: #### L 500.2500, L100.0100 ####[facility] [address] [place], [address] ECRCL 81.99 ml/min Normal [facility] Comment on above: Performed By: #### L 500.2500, L100.0100 ####[facility] [address] [place], [address] EST GFR - AA 110 mL/min Normal >60 [facility] Comment on above: Result Comment: Afri can [place] GFR Calc Performed By: #### L 500.2500, L100.0100 ####[facility] [address] [place], [address] GAP 8 Normal 5-15 [facility] Comment on above: Performed By: #### L 500.2500, L100.0100 ####[facility] [address] [place], [address] GFR/1.73 sq M.predicted among non-blacks MDRD (S/P/Bld) [Vol rate/Area] 91 mL/min/{1.73_m2} Normal >60 [facility] Comment on above: Result Comment: Non- GFR Calc Performed By: #### L 500.2500, L100.0100 ####[facility] [address] [place], [address] Glucose [Mass/Vol] 138 mg/dL High 74-106 [facility] Comment on above: Result Comment: Fast ing Glucose result greater than or equal to 126 mg/dLsuggests DIABETES MELLITUS per A.D.A. criteria. Performed By: #### L 500.2500, L100.0100 ####[facility] [address] [place], [address] Potassium [Moles/Vol] 3.1 mmol/L Low 3.5-5.1 [facility] Comment on above: Performed By: #### L 500.2500, L100.0100 ####[facility] [address] [place], [address] Sodium [Moles/Vol] 138 mmol/L Normal 136-145 [facility] Comment on above: Performed By: #### L 500.2500, L100.0100 ####[facility] [address] [place], [address] Urea nitrogen [Mass/Vol] 16 mg/dL Normal 7-18 [facility] Comment on above: Performed By: #### L 500.2500, L100.0100 ####[facility] [address] [place], [address] CBC W/Diff, Automatedon - Absolute Lymph 1.75 X10 3/uL Normal 0.83-4.51 [facility] Comment on above: Performed By: #### L 500.2500, L100.0100 ####[facility] [address] [place], [address] Absolute Neut 11.6 X10 3/uL High 2.0-7.7 [facility] Comment on above: Performed By: #### L 500.2500, L100.0100 ####[facility] [address] [place], [address] Basophils/100 WBC (Bld) 0.3 % Normal 0-1 [facility] Comment on above: Performed By: #### L 500.2500, L100.0100 ####[facility] [address] [place], [address] Eosinophils/100 WBC (Bld) 0.1 % Normal 0-5 [facility] Comment on above: Performed By: #### L 500.2500, L100.0100 ####[facility] [address] [place], [address] Erythrocyte distribution width (RBC) [Ratio] 12.7 % Normal 11.6-14.6 [facility] Comment on above: Performed By: #### L 500.2500, L100.0100 ####[facility] [address] [place], [address] Hematocrit (Bld) [Volume fraction] 34.7 % Low 37-47 [facility] Comment on above: Performed By: #### L 500.2500, L100.0100 ####[facility] [address] [place], [address] Hemoglobin (Bld) [Mass/Vol] 11.2 g/dL Low 12.0-15.0 [facility] Comment on above: Performed By: #### L 500.2500, L100.0100 ####[facility] [address] [place], [address] IG% 0.600 Normal 0.0-0.9 [facility] Comment on above: Result Comment: IG% - Immature Granulocytes (promyelocytes, myelocytes andmetamyelocytes) > 1% indicates that a LEFT SHIFT is Present. Performed By: #### L 500.2500, L100.0100 ####[facility] [address] [place], [address] Lymphocytes/100 WBC (Bld) 12.3 % Low 19-41 [facility] Comment on above: Performed By: #### L 500.2500, L100.0100 ####[facility] [address] [place], [address] MCH (RBC) [Entitic mass] 31.2 pg Normal 27.0-32.0 [facility] Comment on above: Performed By: #### L 500.2500, L100.0100 ####[facility] [address] [place], [address] MCHC (RBC) [Mass/Vol] 32.3 g/dL Normal 32-36 [facility] Comment on above: Performed By: #### L 500.2500, L100.0100 ####[facility] [address] [place], [address] MCV (RBC) [Entitic vol] 96.7 fL Normal 81-99 [facility] Comment on above: Performed By: #### L 500.2500, L100.0100 ####[facility] [address] [place], [address] Monocytes/100 WBC (Bld) 5.3 % Normal 0-10 [facility] Comment on above: Performed By: #### L 500.2500, L100.0100 ####[facility] [address] [place], [address] Neutrophils/100 WBC (Bld) 81.4 % High 47-70 [facility] Comment on above: Performed By: #### L 500.2500, L100.0100 ####[facility] [address] [place], [address] Nucleated RBC (Bld) [#/Vol] 0 10*3/uL Normal 0-5 [facility] Comment on above: Performed By: #### L 500.2500, L100.0100 ####[facility] [address] [place], [address] Platelet mean volume (Bld) [Entitic vol] 9.0 fL Normal 6.2-12.0 [facility] Comment on above: Performed By: #### L 500.2500, L100.0100 ####[facility] [address] [place], [address] Platelets (Bld) [#/Vol] 333 10*3/uL Normal 150-450 [facility] Comment on above: Performed By: #### L 500.2500, L100.0100 ####[facility] [address] [place], [address] RBC (Bld) [#/Vol] 3.59 10*6/uL Low 4.2-5.4 [facility] Comment on above: Performed By: #### L 500.2500, L100.0100 ####[facility] [address] [place], [address] RDW SD 45.5 fl High 35.1-43.9 [facility] Comment on above: Performed By: #### L 500.2500, L100.0100 ####[facility] [address] [place], [address] WBC (Bld) [#/Vol] 14.2 10*3/uL High 4.4-11.0 [facility] Comment on above: Performed By: #### L 500.2500, L100.0100 ####[facility] [address] [place], [address] Clarity (U)Ordered By: Louis Barraza on 08-07-2024 Urine clarity Cloudy Clear [facility] Color (U)Ordered By: Lisa Barraza on 08-07-2024 Urine color determination Yellow Yellow [facility] Emergency Department Summary on 08-07-2024 Emergency Department Summary Normal [facility] H AND P Exam - Hospitaliston 08-07-2024 H&P Exam - Hospitalist Normal [facility] Humerus min 2 Viewson 2023 Humerus min 2 Views Normal [facility] Ketones Test strip Ql (U)Ord ered By: Lisa Barraza on 08-07-2024 Urine ketones detection by test strip 5 mg/dl High Negative [facility] Lactic Acidon 08-07-2024 Lactate [Moles/Vol] 0.9 mmol/L Normal 0.4-1.9 [facility] Comment on above: Order Comment: Y Performed By: #### L 503.6005 ####[facility] [address] [place], [place], [id number] Lactic acid measurementOrder ed By: Lisa Barraza on 08-07-2024 Lactic acid measurement 0.9 mmol/L 0.4-2.0 [facility] Microscopic analysis of urin e for red blood cells (RBC)Ordered By: Lisa Barraza on 08-07-2024 Microscopic analysis of urine for red blood cells (RBC) 0-5 SEEN /hpf 5-10 [facility] Shoulder min 2 Viewson 08-07 Shoulder min 2 Views Normal [facility] Specific gravity (U) [Rel de nsity]Ordered By: Lisa Barraza on 08-07-2024 Urine specific gravity measurement 1.010 1.002-1.030 [facility] Urinalysis, Completeon 08-07 RBC 0-5 SEEN Normal 0-5 [facility] Comment on above: Order Comment: TONE DIAZOR TO SPECIFY Performed By: #### L [id number] ####[facility] [address] [place], [place], [id number] AMORPHOUS 1+ Normal [facility] Comment on above: Order Comment: TONE CTOR TO SPECIFY Performed By: #### L [id number] ####[facility] [address] [place], [address] BACTERIA 1+ /hpf Normal None Seen [facility] Comment on above: Order Comment: TONE CTOR TO SPECIFY Performed By: #### L [id number] ####[facility] [address] [place], [address] EPI,SQUAMOUS 0-5 SEEN Normal 5-10 [facility] Comment on above: Order Comment: TONE CTOR TO SPECIFY Performed By: #### L [id number] ####[facility] [address] [place], [address] Mucus Ql (Urine sed) 0 SEEN Normal [facility] Comment on above: Order Comment: TONE CTOR TO SPECIFY Performed By: #### L [id number] ####[facility] [address] [place], [address] WBC 0 SEEN Normal 0-5 [facility] Comment on above: Order Comment: TONE CTOR TO SPECIFY Performed By: #### L [id number] ####[facility] [address] [place], [address] Urine glucose detectionOrder ed By: Lisa Barraza on 08-07-2024 Urine glucose detection Normal mg/dl Normal [facility] Urine total bilirubin detect ion by test stripOrdered By: Lisa Barraza on 08-07-2024 Urine total bilirubin detection by test strip Negative Negative [facility] White blood cell countOrdere d By: Lisa Barraza on 08-07-2024 White blood cell count 0 SEEN /hpf [facility] pH (U)Ordered By: Lisa lala on 08-07-2024 Urine pH 7.0 5.0 - 8.0 [facility] Pulmonary Visit Reporton Pulmonary Visit Report Normal [facility] Basic Metabolic Profile (BMP )on 06-21-2024 BUN Normal 7-18 [facility] Comment on above: Result Comment: Canc elled via OM: Order cancelled - Patient discharged Performed By: #### L 500.2500, L100.0100 ####[facility] [address] [place], [address] BUN/CRE Normal 10-20 [facility] Comment on above: Result Comment: Canc elled via OM: Order cancelled - Patient discharged Performed By: #### L 500.2500, L100.0100 ####[facility] [address] [place], [address] CA,Total Normal 8.5-10.1 [facility] Comment on above: Result Comment: Canc elled via OM: Order cancelled - Patient discharged Performed By: #### L 500.2500, L100.0100 ####[facility] [address] [place], [address] CL Normal 98-107 [facility] Comment on above: Result Comment: Canc elled via OM: Order cancelled - Patient discharged Performed By: #### L 500.2500, L100.0100 ####[facility] [address] [place], [address] CO2 Normal 21.0-32.0 [facility] Comment on above: Result Comment: Canc elled via OM: Order cancelled - Patient discharged Performed By: #### L 500.2500, L100.0100 ####[facility] [address] [place], [address] CREAT,SERUM Normal 0.55-1.02 [facility] Comment on above: Result Comment: Canc elled via OM: Order cancelled - Patient discharged Performed By: #### L 500.2500, L100.0100 ####[facility] [address] [place], [address] EST GFR Normal >60 [facility] Comment on above: Result Comment: Canc elled via OM: Order cancelled - Patient discharged Performed By: #### L 500.2500, L100.0100 ####[facility] [address] [place], [address] EST GFR - AA Normal >60 [facility] Comment on above: Result Comment: Canc elled via OM: Order cancelled - Patient discharged Performed By: #### L 500.2500, L100.0100 ####[facility] [address] [place], [address] GAP Normal 5-15 [facility] Comment on above: Result Comment: Canc elled via OM: Order cancelled - Patient discharged Performed By: #### L 500.2500, L100.0100 ####[facility] [address] [place], [address] GLU Normal 74-106 [facility] Comment on above: Result Comment: Canc elled via OM: Order cancelled - Patient discharged Performed By: #### L 500.2500, L100.0100 ####[facility] [address] [place], [address] Potassium Normal 3.5-5.1 [facility] Comment on above: Result Comment: Canc elled via OM: Order cancelled - Patient discharged Performed By: #### L 500.2500, L100.0100 ####[facility] [address] [place], [address] Basic Metabolic Profile (BMP) Normal 136-145 [facility] Comment on above: Result Comment: Canc elled via OM: Order cancelled - Patient discharged Performed By: #### L 500.2500, L100.0100 ####[facility] [address] [place], [address] CBC W/Diff, Automatedon 11-1 Absolute Neut Normal 2.0-7.7 [facility] Comment on above: Result Comment: Canc elled via OM: Order cancelled - Patient discharged Performed By: #### L 500.2500, L100.0100 ####[facility] [address] [place], [address] HCT Normal 37-47 [facility] Comment on above: Result Comment: Canc elled via OM: Order cancelled - Patient discharged Performed By: #### L 500.2500, L100.0100 ####[facility] [address] [place], [address] HGB Normal 12.0-15.0 [facility] Comment on above: Result Comment: Canc elled via OM: Order cancelled - Patient discharged Performed By: #### L 500.2500, L100.0100 ####[facility] [address] [place], [address] MCH Normal 27.0-32.0 [facility] Comment on above: Result Comment: Canc elled via OM: Order cancelled - Patient discharged Performed By: #### L 500.2500, L100.0100 ####[facility] [address] [place], [address] MCHC Normal 32-36 [facility] Comment on above: Result Comment: Canc elled via OM: Order cancelled - Patient discharged Performed By: #### L 500.2500, L100.0100 ####[facility] [address] [place], [address] MCV Normal 81-99 [facility] Comment on above: Result Comment: Canc elled via OM: Order cancelled - Patient discharged Performed By: #### L 500.2500, L100.0100 ####[facility] [address] [place], [address] NEUT% Normal 47-70 [facility] Comment on above: Result Comment: Canc elled via OM: Order cancelled - Patient discharged Performed By: #### L 500.2500, L100.0100 ####[facility] [address] [place], [address] PLT Normal 150-450 [facility] Comment on above: Result Comment: Canc elled via OM: Order cancelled - Patient discharged Performed By: #### L 500.2500, L100.0100 ####[facility] [address] [place], [address] RBC Normal 4.2-5.4 [facility] Comment on above: Result Comment: Canc elled via OM: Order cancelled - Patient discharged Performed By: #### L 500.2500, L100.0100 ####[facility] [address] [place], [address] RDW CV Normal 11.6-14.6 [facility] Comment on above: Result Comment: Canc elled via OM: Order cancelled - Patient discharged Performed By: #### L 500.2500, L100.0100 ####[facility] [address] [place], [address] RDW SD Normal 35.1-43.9 [facility] Comment on above: Result Comment: Canc elled via OM: Order cancelled - Patient discharged Performed By: #### L 500.2500, L100.0100 ####[facility] [address] [place], [address] WBC Normal 4.4-11.0 [facility] Comment on above: Result Comment: Canc elled via OM: Order cancelled - Patient discharged Performed By: #### L 500.2500, L100.0100 ####[facility] [address] [place], [address] Basic Metabolic Profile (BMP )on 06-20-2024 BUN Normal 7-18 [facility] Comment on above: Result Comment: Canc elled via OM: Order cancelled - Patient discharged Performed By: #### L 500.2500, L100.0100 ####[facility] [address] [place], [address] BUN/CRE Normal 10-20 [facility] Comment on above: Result Comment: Canc elled via OM: Order cancelled - Patient discharged Performed By: #### L 500.2500, L100.0100 ####[facility] [address] [place], [address] CA,Total Normal 8.5-10.1 [facility] Comment on above: Result Comment: Canc elled via OM: Order cancelled - Patient discharged Performed By: #### L 500.2500, L100.0100 ####[facility] [address] [place], [address] CL Normal 98-107 [facility] Comment on above: Result Comment: Canc elled via OM: Order cancelled - Patient discharged Performed By: #### L 500.2500, L100.0100 ####[facility] [address] [place], [address] CO2 Normal 21.0-32.0 [facility] Comment on above: Result Comment: Canc elled via OM: Order cancelled - Patient discharged Performed By: #### L 500.2500, L100.0100 ####[facility] [address] [place], [address] CREAT,SERUM Normal 0.55-1.02 [facility] Comment on above: Result Comment: Canc elled via OM: Order cancelled - Patient discharged Performed By: #### L 500.2500, L100.0100 ####[facility] [address] [place], [address] EST GFR Normal >60 [facility] Comment on above: Result Comment: Canc elled via OM: Order cancelled - Patient discharged Performed By: #### L 500.2500, L100.0100 ####[facility] [address] [place], [address] EST GFR - AA Normal >60 [facility] Comment on above: Result Comment: Canc elled via OM: Order cancelled - Patient discharged Performed By: #### L 500.2500, L100.0100 ####[facility] [address] [place], [address] GAP Normal 5-15 [facility] Comment on above: Result Comment: Canc elled via OM: Order cancelled - Patient discharged Performed By: #### L 500.2500, L100.0100 ####[facility] [address] [place], [address] GLU Normal 74-106 [facility] Comment on above: Result Comment: Canc elled via OM: Order cancelled - Patient discharged Performed By: #### L 500.2500, L100.0100 ####[facility] [address] [place], [address] Potassium Normal 3.5-5.1 [facility] Comment on above: Result Comment: Canc elled via OM: Order cancelled - Patient discharged Performed By: #### L 500.2500, L100.0100 ####[facility] [address] [place], [address] Basic Metabolic Profile (BMP) Normal 136-145 [facility] Comment on above: Result Comment: Canc elled via OM: Order cancelled - Patient discharged Performed By: #### L 500.2500, L100.0100 ####[facility] [address] [place], [address] CBC W/Diff, Automatedon 11-1 0-2023 Absolute Neut Normal 2.0-7.7 [facility] Comment on above: Result Comment: Canc elled via OM: Order cancelled - Patient discharged Performed By: #### L 500.2500, L100.0100 ####[facility] [address] [place], [address] HCT Normal 37-47 [facility] Comment on above: Result Comment: Canc elled via OM: Order cancelled - Patient discharged Performed By: #### L 500.2500, L100.0100 ####[facility] [address] [place], [address] HGB Normal 12.0-15.0 [facility] Comment on above: Result Comment: Canc elled via OM: Order cancelled - Patient discharged Performed By: #### L 500.2500, L100.0100 ####[facility] [address] [place], [address] MCH Normal 27.0-32.0 [facility] Comment on above: Result Comment: Canc elled via OM: Order cancelled - Patient discharged Performed By: #### L 500.2500, L100.0100 ####[facility] [address] [place], [address] MCHC Normal 32-36 [facility] Comment on above: Result Comment: Canc elled via OM: Order cancelled - Patient discharged Performed By: #### L 500.2500, L100.0100 ####[facility] [address] [place], [address] MCV Normal 81-99 [facility] Comment on above: Result Comment: Canc elled via OM: Order cancelled - Patient discharged Performed By: #### L 500.2500, L100.0100 ####[facility] [address] [place], [address] NEUT% Normal 47-70 [facility] Comment on above: Result Comment: Canc elled via OM: Order cancelled - Patient discharged Performed By: #### L 500.2500, L100.0100 ####[facility] [address] [place], [address] PLT Normal 150-450 [facility] Comment on above: Result Comment: Canc elled via OM: Order cancelled - Patient discharged Performed By: #### L 500.2500, L100.0100 ####[facility] [address] [place], [address] RBC Normal 4.2-5.4 [facility] Comment on above: Result Comment: Canc elled via OM: Order cancelled - Patient discharged Performed By: #### L 500.2500, L100.0100 ####[facility] [address] [place], [address] RDW CV Normal 11.6-14.6 [facility] Comment on above: Result Comment: Canc elled via OM: Order cancelled - Patient discharged Performed By: #### L 500.2500, L100.0100 ####[facility] [address] [place], [address] RDW SD Normal 35.1-43.9 [facility] Comment on above: Result Comment: Canc elled via OM: Order cancelled - Patient discharged Performed By: #### L 500.2500, L100.0100 ####[facility] [address] [place], [address] WBC Normal 4.4-11.0 [facility] Comment on above: Result Comment: Canc elled via OM: Order cancelled - Patient discharged Performed By: #### L 500.2500, L100.0100 ####[facility] [address] [place], [address] Basic Metabolic Profile (BMP )on 06-19-2024 BUN Normal 7-18 [facility] Comment on above: Result Comment: Canc elled via OM: Order cancelled - Patient discharged Performed By: #### L 100.0100, L500.2500 ####[facility] [address] [place], [address] BUN/CRE Normal 10-20 [facility] Comment on above: Result Comment: Canc elled via OM: Order cancelled - Patient discharged Performed By: #### L 100.0100, L500.2500 ####[facility] [address] [place], [address] CA,Total Normal 8.5-10.1 [facility] Comment on above: Result Comment: Canc elled via OM: Order cancelled - Patient discharged Performed By: #### L 100.0100, L500.2500 ####[facility] [address] [place], [address] CL Normal 98-107 [facility] Comment on above: Result Comment: Canc elled via OM: Order cancelled - Patient discharged Performed By: #### L 100.0100, L500.2500 ####[facility] [address] [place], [address] CO2 Normal 21.0-32.0 [facility] Comment on above: Result Comment: Canc elled via OM: Order cancelled - Patient discharged Performed By: #### L 100.0100, L500.2500 ####[facility] [address] [place], [address] CREAT,SERUM Normal 0.55-1.02 [facility] Comment on above: Result Comment: Canc elled via OM: Order cancelled - Patient discharged Performed By: #### L 100.0100, L500.2500 ####[facility] [address] [place], [address] EST GFR Normal >60 [facility] Comment on above: Result Comment: Canc elled via OM: Order cancelled - Patient discharged Performed By: #### L 100.0100, L500.2500 ####[facility] [address] [place], [address] EST GFR - AA Normal >60 [facility] Comment on above: Result Comment: Canc elled via OM: Order cancelled - Patient discharged Performed By: #### L 100.0100, L500.2500 ####[facility] [address] [place], [address] GAP Normal 5-15 [facility] Comment on above: Result Comment: Canc elled via OM: Order cancelled - Patient discharged Performed By: #### L 100.0100, L500.2500 ####[facility] [address] [place], [address] GLU Normal 74-106 [facility] Comment on above: Result Comment: Canc elled via OM: Order cancelled - Patient discharged Performed By: #### L 100.0100, L500.2500 ####[facility] [address] [place], [address] Potassium Normal 3.5-5.1 [facility] Comment on above: Result Comment: Canc elled via OM: Order cancelled - Patient discharged Performed By: #### L 100.0100, L500.2500 ####[facility] [address] [place], [address] Basic Metabolic Profile (BMP) Normal 136-145 [facility] Comment on above: Result Comment: Canc elled via OM: Order cancelled - Patient discharged Performed By: #### L 100.0100, L500.2500 ####[facility] [address] [place], [address] CBC W/Diff, Automatedon 11-0 -2023 Absolute Neut Normal 2.0-7.7 [facility] Comment on above: Result Comment: Canc elled via OM: Order cancelled - Patient discharged Performed By: #### L 100.0100, L500.2500 ####[facility] [address] [place], [address] HCT Normal 37-47 [facility] Comment on above: Result Comment: Canc elled via OM: Order cancelled - Patient discharged Performed By: #### L 100.0100, L500.2500 ####[facility] [address] [place], [address] HGB Normal 12.0-15.0 [facility] Comment on above: Result Comment: Canc elled via OM: Order cancelled - Patient discharged Performed By: #### L 100.0100, L500.2500 ####[facility] [address] [place], [address] MCH Normal 27.0-32.0 [facility] Comment on above: Result Comment: Canc elled via OM: Order cancelled - Patient discharged Performed By: #### L 100.0100, L500.2500 ####[facility] [address] [place], [address] MCHC Normal 32-36 [facility] Comment on above: Result Comment: Canc elled via OM: Order cancelled - Patient discharged Performed By: #### L 100.0100, L500.2500 ####[facility] [address] [place], [address] MCV Normal 81-99 [facility] Comment on above: Result Comment: Canc elled via OM: Order cancelled - Patient discharged Performed By: #### L 100.0100, L500.2500 ####[facility] [address] [place], [address] NEUT% Normal 47-70 [facility] Comment on above: Result Comment: Canc elled via OM: Order cancelled - Patient discharged Performed By: #### L 100.0100, L500.2500 ####[facility] [address] [place], [address] PLT Normal 150-450 [facility] Comment on above: Result Comment: Canc elled via OM: Order cancelled - Patient discharged Performed By: #### L 100.0100, L500.2500 ####[facility] [address] [place], [address] RBC Normal 4.2-5.4 [facility] Comment on above: Result Comment: Canc elled via OM: Order cancelled - Patient discharged Performed By: #### L 100.0100, L500.2500 ####[facility] [address] [place], [address] RDW CV Normal 11.6-14.6 [facility] Comment on above: Result Comment: Canc elled via OM: Order cancelled - Patient discharged Performed By: #### L 100.0100, L500.2500 ####[facility] [address] [place], [address] RDW SD Normal 35.1-43.9 [facility] Comment on above: Result Comment: Canc elled via OM: Order cancelled - Patient discharged Performed By: #### L 100.0100, L500.2500 ####[facility] [address] [place], [address] WBC Normal 4.4-11.0 [facility] Comment on above: Result Comment: Canc elled via OM: Order cancelled - Patient discharged Performed By: #### L 100.0100, L500.2500 ####[facility] [address] [place], [address] Basic Metabolic Profile (BMP )on 06-18-2024 BUN Normal 7-18 [facility] Comment on above: Result Comment: Canc elled via OM: Order cancelled - Patient discharged Performed By: #### L 500.2500, L100.0100 ####[facility] [address] [place], [address] BUN/CRE Normal 10-20 [facility] Comment on above: Result Comment: Canc elled via OM: Order cancelled - Patient discharged Performed By: #### L 500.2500, L100.0100 ####[facility] [address] [place], [address] CA,Total Normal 8.5-10.1 [facility] Comment on above: Result Comment: Canc elled via OM: Order cancelled - Patient discharged Performed By: #### L 500.2500, L100.0100 ####[facility] [address] [place], [address] CL Normal 98-107 [facility] Comment on above: Result Comment: Canc elled via OM: Order cancelled - Patient discharged Performed By: #### L 500.2500, L100.0100 ####[facility] [address] [place], [address] CO2 Normal 21.0-32.0 [facility] Comment on above: Result Comment: Canc elled via OM: Order cancelled - Patient discharged Performed By: #### L 500.2500, L100.0100 ####[facility] [address] [place], [address] CREAT,SERUM Normal 0.55-1.02 [facility] Comment on above: Result Comment: Canc elled via OM: Order cancelled - Patient discharged Performed By: #### L 500.2500, L100.0100 ####[facility] [address] [place], [address] EST GFR Normal >60 [facility] Comment on above: Result Comment: Canc elled via OM: Order cancelled - Patient discharged Performed By: #### L 500.2500, L100.0100 ####[facility] [address] [place], [address] EST GFR - AA Normal >60 [facility] Comment on above: Result Comment: Canc elled via OM: Order cancelled - Patient discharged Performed By: #### L 500.2500, L100.0100 ####[facility] [address] [place], [address] GAP Normal 5-15 [facility] Comment on above: Result Comment: Canc elled via OM: Order cancelled - Patient discharged Performed By: #### L 500.2500, L100.0100 ####[facility] [address] [place], [address] GLU Normal 74-106 [facility] Comment on above: Result Comment: Canc elled via OM: Order cancelled - Patient discharged Performed By: #### L 500.2500, L100.0100 ####[facility] [address] [place], [address] Potassium Normal 3.5-5.1 [facility] Comment on above: Result Comment: Canc elled via OM: Order cancelled - Patient discharged Performed By: #### L 500.2500, L100.0100 ####[facility] [address] [place], [address] Basic Metabolic Profile (BMP) Normal 136-145 [facility] Comment on above: Result Comment: Canc elled via OM: Order cancelled - Patient discharged Performed By: #### L 500.2500, L100.0100 ####[facility] [address] [place], [address] CBC W/Diff, Automatedon 11-0 8-2023 Absolute Neut Normal 2.0-7.7 [facility] Comment on above: Result Comment: Canc elled via OM: Order cancelled - Patient discharged Performed By: #### L 500.2500, L100.0100 ####[facility] [address] [place], [address] HCT Normal 37-47 [facility] Comment on above: Result Comment: Canc elled via OM: Order cancelled - Patient discharged Performed By: #### L 500.2500, L100.0100 ####[facility] [address] [place], [address] HGB Normal 12.0-15.0 [facility] Comment on above: Result Comment: Canc elled via OM: Order cancelled - Patient discharged Performed By: #### L 500.2500, L100.0100 ####[facility] [address] [place], [address] MCH Normal 27.0-32.0 [facility] Comment on above: Result Comment: Canc elled via OM: Order cancelled - Patient discharged Performed By: #### L 500.2500, L100.0100 ####[facility] [address] [place], [address] MCHC Normal 32-36 [facility] Comment on above: Result Comment: Canc elled via OM: Order cancelled - Patient discharged Performed By: #### L 500.2500, L100.0100 ####[facility] [address] [place], [address] MCV Normal 81-99 [facility] Comment on above: Result Comment: Canc elled via OM: Order cancelled - Patient discharged Performed By: #### L 500.2500, L100.0100 ####[facility] [address] [place], [address] NEUT% Normal 47-70 [facility] Comment on above: Result Comment: Canc elled via OM: Order cancelled - Patient discharged Performed By: #### L 500.2500, L100.0100 ####[facility] [address] [place], [address] PLT Normal 150-450 [facility] Comment on above: Result Comment: Canc elled via OM: Order cancelled - Patient discharged Performed By: #### L 500.2500, L100.0100 ####[facility] [address] [place], [address] RBC Normal 4.2-5.4 [facility] Comment on above: Result Comment: Canc elled via OM: Order cancelled - Patient discharged Performed By: #### L 500.2500, L100.0100 ####[facility] [address] [place], [address] RDW CV Normal 11.6-14.6 [facility] Comment on above: Result Comment: Canc elled via OM: Order cancelled - Patient discharged Performed By: #### L 500.2500, L100.0100 ####[facility] [address] [place], [address] RDW SD Normal 35.1-43.9 [facility] Comment on above: Result Comment: Canc elled via OM: Order cancelled - Patient discharged Performed By: #### L 500.2500, L100.0100 ####[facility] [address] [place], [address] WBC Normal 4.4-11.0 [facility] Comment on above: Result Comment: Canc elled via OM: Order cancelled - Patient discharged Performed By: #### L 500.2500, L100.0100 ####[facility] [address] [place], [address] Basic Metabolic Profile (BMP )on 06-17-2024 BUN Normal 7-18 [facility] Comment on above: Result Comment: Canc elled via OM: Order cancelled - Patient discharged Performed By: #### L 100.0100, L500.2500 ####[facility] [address] [place], [address] BUN/CRE Normal 10-20 [facility] Comment on above: Result Comment: Canc elled via OM: Order cancelled - Patient discharged Performed By: #### L 100.0100, L500.2500 ####[facility] [address] [place], [address] CA,Total Normal 8.5-10.1 [facility] Comment on above: Result Comment: Canc elled via OM: Order cancelled - Patient discharged Performed By: #### L 100.0100, L500.2500 ####[facility] [address] [place], [address] CL Normal 98-107 [facility] Comment on above: Result Comment: Canc elled via OM: Order cancelled - Patient discharged Performed By: #### L 100.0100, L500.2500 ####[facility] [address] [place], [address] CO2 Normal 21.0-32.0 [facility] Comment on above: Result Comment: Canc elled via OM: Order cancelled - Patient discharged Performed By: #### L 100.0100, L500.2500 ####[facility] [address] [place], [address] CREAT,SERUM Normal 0.55-1.02 [facility] Comment on above: Result Comment: Canc elled via OM: Order cancelled - Patient discharged Performed By: #### L 100.0100, L500.2500 ####[facility] [address] [place], [address] EST GFR Normal >60 [facility] Comment on above: Result Comment: Canc elled via OM: Order cancelled - Patient discharged Performed By: #### L 100.0100, L500.2500 ####[facility] [address] [place], [address] EST GFR - AA Normal >60 [facility] Comment on above: Result Comment: Canc elled via OM: Order cancelled - Patient discharged Performed By: #### L 100.0100, L500.2500 ####[facility] [address] [place], [address] GAP Normal 5-15 [facility] Comment on above: Result Comment: Canc elled via OM: Order cancelled - Patient discharged Performed By: #### L 100.0100, L500.2500 ####[facility] [address] [place], [address] GLU Normal 74-106 [facility] Comment on above: Result Comment: Canc elled via OM: Order cancelled - Patient discharged Performed By: #### L 100.0100, L500.2500 ####[facility] [address] [place], [address] Potassium Normal 3.5-5.1 [facility] Comment on above: Result Comment: Canc elled via OM: Order cancelled - Patient discharged Performed By: #### L 100.0100, L500.2500 ####[facility] [address] [place], [address] Basic Metabolic Profile (BMP) Normal 136-145 [facility] Comment on above: Result Comment: Canc elled via OM: Order cancelled - Patient discharged Performed By: #### L 100.0100, L500.2500 ####[facility] [address] [place], [address] CBC W/Diff, Automatedon 11-0 -2023 Absolute Neut Normal 2.0-7.7 [facility] Comment on above: Result Comment: Canc elled via OM: Order cancelled - Patient discharged Performed By: #### L 100.0100, L500.2500 ####[facility] [address] [place], [address] HCT Normal 37-47 [facility] Comment on above: Result Comment: Canc elled via OM: Order cancelled - Patient discharged Performed By: #### L 100.0100, L500.2500 ####[facility] [address] [place], [address] HGB Normal 12.0-15.0 [facility] Comment on above: Result Comment: Canc elled via OM: Order cancelled - Patient discharged Performed By: #### L 100.0100, L500.2500 ####[facility] [address] [place], [address] MCH Normal 27.0-32.0 [facility] Comment on above: Result Comment: Canc elled via OM: Order cancelled - Patient discharged Performed By: #### L 100.0100, L500.2500 ####[facility] [address] [place], [address] MCHC Normal 32-36 [facility] Comment on above: Result Comment: Canc elled via OM: Order cancelled - Patient discharged Performed By: #### L 100.0100, L500.2500 ####[facility] [address] [place], [address] MCV Normal 81-99 [facility] Comment on above: Result Comment: Canc elled via OM: Order cancelled - Patient discharged Performed By: #### L 100.0100, L500.2500 ####[facility] [address] [place], [address] NEUT% Normal 47-70 [facility] Comment on above: Result Comment: Canc elled via OM: Order cancelled - Patient discharged Performed By: #### L 100.0100, L500.2500 ####[facility] [address] [place], [address] PLT Normal 150-450 [facility] Comment on above: Result Comment: Canc elled via OM: Order cancelled - Patient discharged Performed By: #### L 100.0100, L500.2500 ####[facility] [address] [place], [address] RBC Normal 4.2-5.4 [facility] Comment on above: Result Comment: Canc elled via OM: Order cancelled - Patient discharged Performed By: #### L 100.0100, L500.2500 ####[facility] [address] [place], [address] RDW CV Normal 11.6-14.6 [facility] Comment on above: Result Comment: Canc elled via OM: Order cancelled - Patient discharged Performed By: #### L 100.0100, L500.2500 ####[facility] [address] [place], [address] RDW SD Normal 35.1-43.9 [facility] Comment on above: Result Comment: Canc elled via OM: Order cancelled - Patient discharged Performed By: #### L 100.0100, L500.2500 ####[facility] [address] [place], [address] WBC Normal 4.4-11.0 [facility] Comment on above: Result Comment: Canc elled via OM: Order cancelled - Patient discharged Performed By: #### L 100.0100, L500.2500 ####[facility] [address] [place], [address] Basic Metabolic Profile (BMP )on 06-16-2024 BUN Normal 7-18 [facility] Comment on above: Result Comment: Canc elled via OM: Order cancelled - Patient discharged Performed By: #### L 500.2500, L100.0100 ####[facility] [address] [place], [address] BUN/CRE Normal 10-20 [facility] Comment on above: Result Comment: Canc elled via OM: Order cancelled - Patient discharged Performed By: #### L 500.2500, L100.0100 ####[facility] [address] [place], [address] CA,Total Normal 8.5-10.1 [facility] Comment on above: Result Comment: Canc elled via OM: Order cancelled - Patient discharged Performed By: #### L 500.2500, L100.0100 ####[facility] [address] [place], [address] CL Normal 98-107 [facility] Comment on above: Result Comment: Canc elled via OM: Order cancelled - Patient discharged Performed By: #### L 500.2500, L100.0100 ####[facility] [address] [place], [address] CO2 Normal 21.0-32.0 [facility] Comment on above: Result Comment: Canc elled via OM: Order cancelled - Patient discharged Performed By: #### L 500.2500, L100.0100 ####[facility] [address] [place], [address] CREAT,SERUM Normal 0.55-1.02 [facility] Comment on above: Result Comment: Canc elled via OM: Order cancelled - Patient discharged Performed By: #### L 500.2500, L100.0100 ####[facility] [address] [place], [address] EST GFR Normal >60 [facility] Comment on above: Result Comment: Canc elled via OM: Order cancelled - Patient discharged Performed By: #### L 500.2500, L100.0100 ####[facility] [address] [place], [address] EST GFR - AA Normal >60 [facility] Comment on above: Result Comment: Canc elled via OM: Order cancelled - Patient discharged Performed By: #### L 500.2500, L100.0100 ####[facility] [address] [place], [address] GAP Normal 5-15 [facility] Comment on above: Result Comment: Canc elled via OM: Order cancelled - Patient discharged Performed By: #### L 500.2500, L100.0100 ####[facility] [address] [place], [address] GLU Normal 74-106 [facility] Comment on above: Result Comment: Canc elled via OM: Order cancelled - Patient discharged Performed By: #### L 500.2500, L100.0100 ####[facility] [address] [place], [address] Potassium Normal 3.5-5.1 [facility] Comment on above: Result Comment: Canc elled via OM: Order cancelled - Patient discharged Performed By: #### L 500.2500, L100.0100 ####[facility] [address] [place], [address] Basic Metabolic Profile (BMP) Normal 136-145 [facility] Comment on above: Result Comment: Canc elled via OM: Order cancelled - Patient discharged Performed By: #### L 500.2500, L100.0100 ####[facility] [address] [place], [address] CBC W/Diff, Automatedon 11-0 Absolute Neut Normal 2.0-7.7 [facility] Comment on above: Result Comment: Canc elled via OM: Order cancelled - Patient discharged Performed By: #### L 500.2500, L100.0100 ####[facility] [address] [place], [address] HCT Normal 37-47 [facility] Comment on above: Result Comment: Canc elled via OM: Order cancelled - Patient discharged Performed By: #### L 500.2500, L100.0100 ####[facility] [address] [place], [address] HGB Normal 12.0-15.0 [facility] Comment on above: Result Comment: Canc elled via OM: Order cancelled - Patient discharged Performed By: #### L 500.2500, L100.0100 ####[facility] [address] [place], [address] MCH Normal 27.0-32.0 [facility] Comment on above: Result Comment: Canc elled via OM: Order cancelled - Patient discharged Performed By: #### L 500.2500, L100.0100 ####[facility] [address] [place], [address] MCHC Normal 32-36 [facility] Comment on above: Result Comment: Canc elled via OM: Order cancelled - Patient discharged Performed By: #### L 500.2500, L100.0100 ####[facility] [address] [place], [address] MCV Normal 81-99 [facility] Comment on above: Result Comment: Canc elled via OM: Order cancelled - Patient discharged Performed By: #### L 500.2500, L100.0100 ####[facility] [address] [place], [address] NEUT% Normal 47-70 [facility] Comment on above: Result Comment: Canc elled via OM: Order cancelled - Patient discharged Performed By: #### L 500.2500, L100.0100 ####[facility] [address] [place], [address] PLT Normal 150-450 [facility] Comment on above: Result Comment: Canc elled via OM: Order cancelled - Patient discharged Performed By: #### L 500.2500, L100.0100 ####[facility] [address] [place], [address] RBC Normal 4.2-5.4 [facility] Comment on above: Result Comment: Canc elled via OM: Order cancelled - Patient discharged Performed By: #### L 500.2500, L100.0100 ####[facility] [address] [place], [address] RDW CV Normal 11.6-14.6 [facility] Comment on above: Result Comment: Canc elled via OM: Order cancelled - Patient discharged Performed By: #### L 500.2500, L100.0100 ####[facility] [address] [place], [address] RDW SD Normal 35.1-43.9 [facility] Comment on above: Result Comment: Canc elled via OM: Order cancelled - Patient discharged Performed By: #### L 500.2500, L100.0100 ####[facility] [address] [place], [address] WBC Normal 4.4-11.0 [facility] Comment on above: Result Comment: Canc elled via OM: Order cancelled - Patient discharged Performed By: #### L 500.2500, L100.0100 ####[facility] [address] [place], [address] Basic Metabolic Profile (BMP )on 06-15-2024 BUN Normal 7-18 [facility] Comment on above: Result Comment: Canc elled via OM: Order cancelled - Patient discharged Performed By: #### L 500.2500, L100.0100 ####[facility] [address] [place], [address] BUN/CRE Normal 10-20 [facility] Comment on above: Result Comment: Canc elled via OM: Order cancelled - Patient discharged Performed By: #### L 500.2500, L100.0100 ####[facility] [address] [place], [address] CA,Total Normal 8.5-10.1 [facility] Comment on above: Result Comment: Canc elled via OM: Order cancelled - Patient discharged Performed By: #### L 500.2500, L100.0100 ####[facility] [address] [place], [address] CL Normal 98-107 [facility] Comment on above: Result Comment: Canc elled via OM: Order cancelled - Patient discharged Performed By: #### L 500.2500, L100.0100 ####[facility] [address] [place], [address] CO2 Normal 21.0-32.0 [facility] Comment on above: Result Comment: Canc elled via OM: Order cancelled - Patient discharged Performed By: #### L 500.2500, L100.0100 ####[facility] [address] [place], [address] CREAT,SERUM Normal 0.55-1.02 [facility] Comment on above: Result Comment: Canc elled via OM: Order cancelled - Patient discharged Performed By: #### L 500.2500, L100.0100 ####[facility] [address] [place], [address] EST GFR Normal >60 [facility] Comment on above: Result Comment: Canc elled via OM: Order cancelled - Patient discharged Performed By: #### L 500.2500, L100.0100 ####[facility] [address] [place], [address] EST GFR - AA Normal >60 [facility] Comment on above: Result Comment: Canc elled via OM: Order cancelled - Patient discharged Performed By: #### L 500.2500, L100.0100 ####[facility] [address] [place], [address] GAP Normal 5-15 [facility] Comment on above: Result Comment: Canc elled via OM: Order cancelled - Patient discharged Performed By: #### L 500.2500, L100.0100 ####[facility] [address] [place], [address] GLU Normal 74-106 [facility] Comment on above: Result Comment: Canc elled via OM: Order cancelled - Patient discharged Performed By: #### L 500.2500, L100.0100 ####[facility] [address] [place], [address] Potassium Normal 3.5-5.1 [facility] Comment on above: Result Comment: Canc elled via OM: Order cancelled - Patient discharged Performed By: #### L 500.2500, L100.0100 ####[facility] [address] [place], [address] Basic Metabolic Profile (BMP) Normal 136-145 [facility] Comment on above: Result Comment: Canc elled via OM: Order cancelled - Patient discharged Performed By: #### L 500.2500, L100.0100 ####[facility] [address] [place], [address] CBC W/Diff, Automatedon 11-0 -2023 Absolute Neut Normal 2.0-7.7 [facility] Comment on above: Result Comment: Canc elled via OM: Order cancelled - Patient discharged Performed By: #### L 500.2500, L100.0100 ####[facility] [address] [place], [address] HCT Normal 37-47 [facility] Comment on above: Result Comment: Canc elled via OM: Order cancelled - Patient discharged Performed By: #### L 500.2500, L100.0100 ####[facility] [address] [place], [address] HGB Normal 12.0-15.0 [facility] Comment on above: Result Comment: Canc elled via OM: Order cancelled - Patient discharged Performed By: #### L 500.2500, L100.0100 ####[facility] [address] [place], [address] MCH Normal 27.0-32.0 [facility] Comment on above: Result Comment: Canc elled via OM: Order cancelled - Patient discharged Performed By: #### L 500.2500, L100.0100 ####[facility] [address] [place], [address] MCHC Normal 32-36 [facility] Comment on above: Result Comment: Canc elled via OM: Order cancelled - Patient discharged Performed By: #### L 500.2500, L100.0100 ####[facility] [address] [place], [address] MCV Normal 81-99 [facility] Comment on above: Result Comment: Canc elled via OM: Order cancelled - Patient discharged Performed By: #### L 500.2500, L100.0100 ####[facility] [address] [place], [address] NEUT% Normal 47-70 [facility] Comment on above: Result Comment: Canc elled via OM: Order cancelled - Patient discharged Performed By: #### L 500.2500, L100.0100 ####[facility] [address] [place], [address] PLT Normal 150-450 [facility] Comment on above: Result Comment: Canc elled via OM: Order cancelled - Patient discharged Performed By: #### L 500.2500, L100.0100 ####[facility] [address] [place], [address] RBC Normal 4.2-5.4 [facility] Comment on above: Result Comment: Canc elled via OM: Order cancelled - Patient discharged Performed By: #### L 500.2500, L100.0100 ####[facility] [address] [place], [address] RDW CV Normal 11.6-14.6 [facility] Comment on above: Result Comment: Canc elled via OM: Order cancelled - Patient discharged Performed By: #### L 500.2500, L100.0100 ####[facility] [address] [place], [address] RDW SD Normal 35.1-43.9 [facility] Comment on above: Result Comment: Canc elled via OM: Order cancelled - Patient discharged Performed By: #### L 500.2500, L100.0100 ####[facility] [address] [place], [address] WBC Normal 4.4-11.0 [facility] Comment on above: Result Comment: Canc elled via OM: Order cancelled - Patient discharged Performed By: #### L 500.2500, L100.0100 ####[facility] [address] [place], [address] Basic Metabolic Profile (BMP )on 06-14-2024 BUN/CRE 21.5 RATIO High 10-20 [facility] Comment on above: Performed By: #### L 501.9520, L501.5200, L500.2500, L501.2300 ####[facility] [address] [place], [address] CA,Total 8.8 mg/dL Normal 8.5-10.1 [facility] Comment on above: Performed By: #### L 501.9520, L501.5200, L500.2500, L501.2300 ####[facility] [address] [place], [address] Chloride [Moles/Vol] 110 mmol/L High 98-107 [facility] Comment on above: Performed By: #### L 501.9520, L501.5200, L500.2500, L501.2300 ####[facility] [address] [place], [address] CO2 [Moles/Vol] 27.0 mmol/L Normal 21.0-32.0 [facility] Comment on above: Performed By: #### L 501.9520, L501.5200, L500.2500, L501.2300 ####[facility] [address] [place], [address] Creatinine [Mass/Vol] 0.65 mg/dL Normal 0.55-1.02 [facility] Comment on above: Result Comment: The validity of the calculated GFR GFRAA in patients over70 years has not been determined. Clinical correlation isessential. Performed By: #### L 501.9520, L501.5200, L500.2500, L501.2300 ####[facility] [address] [place], [address] ECRCL 78.00 ml/min Normal [facility] Comment on above: Performed By: #### L 501.9520, L501.5200, L500.2500, L501.2300 ####[facility] [address] [place], [address] EST GFR - AA 115 mL/min Normal >60 [facility] Comment on above: Result Comment: Afri can [place] GFR Calc Performed By: #### L 501.9520, L501.5200, L500.2500, L501.2300 ####[facility] [address] [place], [address] GAP 5 Normal 5-15 [facility] Comment on above: Performed By: #### L 501.9520, L501.5200, L500.2500, L501.2300 ####[facility] [address] [place], [address] GFR/1.73 sq M.predicted among non-blacks MDRD (S/P/Bld) [Vol rate/Area] 95 mL/min/{1.73_m2} Normal >60 [facility] Comment on above: Result Comment: Non- GFR Calc Performed By: #### L 501.9520, L501.5200, L500.2500, L501.2300 ####[facility] [address] [place], [address] Glucose [Mass/Vol] 111 mg/dL High 74-106 [facility] Comment on above: Result Comment: Fast ing Glucose result from 100 to 125 mg/dLsuggests IMPAIRED HOMEOSTASIS per A.D.A. criteria. Performed By: #### L 501.9520, L501.5200, L500.2500, L501.2300 ####[facility] [address] [place], [address] Potassium [Moles/Vol] 3.6 mmol/L Normal 3.5-5.1 [facility] Comment on above: Performed By: #### L 501.9520, L501.5200, L500.2500, L501.2300 ####[facility] [address] [place], [address] Sodium [Moles/Vol] 142 mmol/L Normal 136-145 [facility] Comment on above: Performed By: #### L 501.9520, L501.5200, L500.2500, L501.2300 ####[facility] [address] [place], [address] Urea nitrogen [Mass/Vol] 14 mg/dL Normal 7-18 [facility] Comment on above: Performed By: #### L 501.9520, L501.5200, L500.2500, L501.2300 ####[facility] [address] [place], [address] CBC W/Diff, Automatedon 11-0 4-4 Absolute Lymph 3.85 X10 3/uL Normal 0.83-4.51 [facility] Comment on above: Performed By: #### L 100.0100 ####[facility] [address] [place], [address] Absolute Neut 3.0 X10 3/uL Normal 2.0-7.7 [facility] Comment on above: Performed By: #### L 100.0100 ####[facility] [address] [place], [address] Basophils/100 WBC (Bld) 0.5 % Normal 0-1 [facility] Comment on above: Performed By: #### L 100.0100 ####[facility] [address] [place], [address] Eosinophils/100 WBC (Bld) 2.2 % Normal 0-5 [facility] Comment on above: Performed By: #### L 100.0100 ####[facility] [address] [place], [address] Erythrocyte distribution width (RBC) [Ratio] 12.8 % Normal 11.6-14.6 [facility] Comment on above: Performed By: #### L 100.0100 ####[facility] [address] [place], [address] Hematocrit (Bld) [Volume fraction] 35.9 % Low 37-47 [facility] Comment on above: Performed By: #### L 100.0100 ####[facility] [address] [place], [address] Hemoglobin (Bld) [Mass/Vol] 11.5 g/dL Low 12.0-15.0 [facility] Comment on above: Performed By: #### L 100.0100 ####[facility] [address] [place], [address] IG% 0.300 Normal 0.0-0.9 [facility] Comment on above: Result Comment: IG% - Immature Granulocytes (promyelocytes, myelocytes andmetamyelocytes) > 1% indicates that a LEFT SHIFT is Present. Performed By: #### L 100.0100 ####[facility] [address] [place], [address] Lymphocytes/100 WBC (Bld) 50.1 % High 19-41 [facility] Comment on above: Performed By: #### L 100.0100 ####[facility] [address] [place], [address] MCH (RBC) [Entitic mass] 31.5 pg Normal 27.0-32.0 [facility] Comment on above: Performed By: #### L 100.0100 ####[facility] [address] [place], [address] MCHC (RBC) [Mass/Vol] 32.0 g/dL Normal 32-36 [facility] Comment on above: Performed By: #### L 100.0100 ####[facility] [address] [place], [address] MCV (RBC) [Entitic vol] 98.4 fL Normal 81-99 [facility] Comment on above: Performed By: #### L 100.0100 ####[facility] [address] [place], [address] Monocytes/100 WBC (Bld) 7.3 % Normal 0-10 [facility] Comment on above: Performed By: #### L 100.0100 ####[facility] [address] [place], [address] Neutrophils/100 WBC (Bld) 39.6 % Low 47-70 [facility] Comment on above: Performed By: #### L 100.0100 ####[facility] [address] [place], [address] Nucleated RBC (Bld) [#/Vol] 0 10*3/uL Normal 0-5 [facility] Comment on above: Performed By: #### L 100.0100 ####[facility] [address] [place], [address] Platelet mean volume (Bld) [Entitic vol] 9.4 fL Normal 6.2-12.0 [facility] Comment on above: Performed By: #### L 100.0100 ####[facility] [address] [place], [address] Platelets (Bld) [#/Vol] 312 10*3/uL Normal 150-450 [facility] Comment on above: Performed By: #### L 100.0100 ####[facility] [address] [place], [address] RBC (Bld) [#/Vol] 3.65 10*6/uL Low 4.2-5.4 [facility] Comment on above: Performed By: #### L 100.0100 ####[facility] [address] [place], [address] RDW SD 46.0 fl High 35.1-43.9 [facility] Comment on above: Performed By: #### L 100.0100 ####[facility] [address] [place], [address] WBC (Bld) [#/Vol] 7.7 10*3/uL Normal 4.4-11.0 [facility] Comment on above: Performed By: #### L 100.0100 ####[facility] [address] [place], [address] Magnesiumon 06-14-2024 Magnesium [Mass/Vol] 2.1 mg/dL Normal 1.6-2.6 [facility] Comment on above: Performed By: #### L 501.9520, L501.5200, L500.2500, L501.2300 ####[facility] [address] [place], [address] Phosphoruson 06-14-2024 Phosphate [Mass/Vol] 3.2 mg/dL Normal 2.5-4.9 [facility] Comment on above: Performed By: #### L 501.9520, L501.5200, L500.2500, L501.2300 ####[facility] [address] [place], [address] Thyroid Stim Hormone (TSH)on 06-14-2024 TSH 2.170 uIU/mL Normal 0.358-3.740 [facility] Comment on above: Performed By: #### L 501.9520, L501.5200, L500.2500, L501.2300 ####[facility] [address] [place], [address] CBC W/Diff, Automatedon 11-0 Absolute Lymph 4.40 X10 3/uL Normal 0.83-4.51 [facility] Comment on above: Performed By: #### L 501.9520, L501.2300, L500.4050, L501.5200, L501.9985, L100.0100 ####[facility] [address] [place], [address] Absolute Neut 3.4 X10 3/uL Normal 2.0-7.7 [facility] Comment on above: Performed By: #### L 501.9520, L501.2300, L500.4050, L501.5200, L501.9985, L100.0100 ####[facility] [address] [place], [address] Basophils/100 WBC (Bld) 0.6 % Normal 0-1 [facility] Comment on above: Performed By: #### L 501.9520, L501.2300, L500.4050, L501.5200, L501.9985, L100.0100 ####[facility] [address] [place], [address] Eosinophils/100 WBC (Bld) 1.6 % Normal 0-5 [facility] Comment on above: Performed By: #### L 501.9520, L501.2300, L500.4050, L501.5200, L501.9985, L100.0100 ####[facility] [address] [place], [address] Erythrocyte distribution width (RBC) [Ratio] 12.9 % Normal 11.6-14.6 [facility] Comment on above: Performed By: #### L 501.9520, L501.2300, L500.4050, L501.5200, L501.9985, L100.0100 ####[facility] [address] [place], [address] Hematocrit (Bld) [Volume fraction] 35.2 % Low 37-47 [facility] Comment on above: Performed By: #### L 501.9520, L501.2300, L500.4050, L501.5200, L501.9985, L100.0100 ####[facility] [address] [place], [address] Hemoglobin (Bld) [Mass/Vol] 11.5 g/dL Low 12.0-15.0 [facility] Comment on above: Performed By: #### L 501.9520, L501.2300, L500.4050, L501.5200, L501.9985, L100.0100 ####[facility] [address] [place], [address] IG% 0.300 Normal 0.0-0.9 [facility] Comment on above: Result Comment: IG% - Immature Granulocytes (promyelocytes, myelocytes andmetamyelocytes) > 1% indicates that a LEFT SHIFT is Present. Performed By: #### L 501.9520, L501.2300, L500.4050, L501.5200, L501.9985, L100.0100 ####[facility] [address] [place], [address] Lymphocytes/100 WBC (Bld) 50.4 % High 19-41 [facility] Comment on above: Performed By: #### L 501.9520, L501.2300, L500.4050, L501.5200, L501.9985, L100.0100 ####[facility] [address] [place], [address] MCH (RBC) [Entitic mass] 32.5 pg High 27.0-32.0 [facility] Comment on above: Performed By: #### L 501.9520, L501.2300, L500.4050, L501.5200, L501.9985, L100.0100 ####[facility] [address] [place], [address] MCHC (RBC) [Mass/Vol] 32.7 g/dL Normal 32-36 [facility] Comment on above: Performed By: #### L 501.9520, L501.2300, L500.4050, L501.5200, L501.9985, L100.0100 ####[facility] [address] [place], [address] MCV (RBC) [Entitic vol] 99.4 fL High 81-99 [facility] Comment on above: Performed By: #### L 501.9520, L501.2300, L500.4050, L501.5200, L501.9985, L100.0100 ####[facility] [address] [place], [address] Monocytes/100 WBC (Bld) 7.8 % Normal 0-10 [facility] Comment on above: Performed By: #### L 501.9520, L501.2300, L500.4050, L501.5200, L501.9985, L100.0100 ####[facility] [address] [place], [address] Neutrophils/100 WBC (Bld) 39.3 % Low 47-70 [facility] Comment on above: Performed By: #### L 501.9520, L501.2300, L500.4050, L501.5200, L501.9985, L100.0100 ####[facility] [address] [place], [address] Nucleated RBC (Bld) [#/Vol] 0 10*3/uL Normal 0-5 [facility] Comment on above: Performed By: #### L 501.9520, L501.2300, L500.4050, L501.5200, L501.9985, L100.0100 ####[facility] [address] [place], [address] Platelet mean volume (Bld) [Entitic vol] 9.6 fL Normal 6.2-12.0 [facility] Comment on above: Performed By: #### L 501.9520, L501.2300, L500.4050, L501.5200, L501.9985, L100.0100 ####[facility] [address] [place], [address] Platelets (Bld) [#/Vol] 313 10*3/uL Normal 150-450 [facility] Comment on above: Performed By: #### L 501.9520, L501.2300, L500.4050, L501.5200, L501.9985, L100.0100 ####[facility] [address] [place], [address] RBC (Bld) [#/Vol] 3.54 10*6/uL Low 4.2-5.4 [facility] Comment on above: Performed By: #### L 501.9520, L501.2300, L500.4050, L501.5200, L501.9985, L100.0100 ####[facility] [address] [place], [address] RDW SD 47.2 fl High 35.1-43.9 [facility] Comment on above: Performed By: #### L 501.9520, L501.2300, L500.4050, L501.5200, L501.9985, L100.0100 ####[facility] [address] [place], [address] WBC (Bld) [#/Vol] 8.7 10*3/uL Normal 4.4-11.0 [facility] Comment on above: Performed By: #### L 501.9520, L501.2300, L500.4050, L501.5200, L501.9985, L100.0100 ####[facility] [address] [place], [address] Comprehensive Metabolic Prof ilon 06-13-2024 Albumin [Mass/Vol] 3.4 g/dL Normal 3.2-5.0 [facility] Comment on above: Performed By: #### L 501.9520, L501.2300, L500.4050, L501.5200, L501.9985, L100.0100 ####[facility] [address] [place], [address] Albumin/Globulin [Mass ratio] 1.1 {ratio} Normal 0.9-2.4 [facility] Comment on above: Performed By: #### L 501.9520, L501.2300, L500.4050, L501.5200, L501.9985, L100.0100 ####[facility] [address] [place], [address] ALK P 89 U/L Normal 45-117 [facility] Comment on above: Performed By: #### L 501.9520, L501.2300, L500.4050, L501.5200, L501.9985, L100.0100 ####[facility] [address] [place], [address] ALT [Catalytic activity/Vol] 21 U/L Normal 13-56 [facility] Comment on above: Performed By: #### L 501.9520, L501.2300, L500.4050, L501.5200, L501.9985, L100.0100 ####[facility] [address] [place], [address] AST [Catalytic activity/Vol] 24 U/L Normal 15-37 [facility] Comment on above: Performed By: #### L 501.9520, L501.2300, L500.4050, L501.5200, L501.9985, L100.0100 ####[facility] [address] [place], [address] Bilirubin [Mass/Vol] 0.50 mg/dL Normal 0.20-1.00 [facility] Comment on above: Result Comment: For patients on eltrombopag therapy, use of Dimension [place] TBIL is not recommended. Performed By: #### L 501.9520, L501.2300, L500.4050, L501.5200, L501.9985, L100.0100 ####[facility] [address] [place], [address] BUN/CRE 20.6 RATIO High 10-20 [facility] Comment on above: Performed By: #### L 501.9520, L501.2300, L500.4050, L501.5200, L501.9985, L100.0100 ####[facility] [address] [place], [address] CA,Total 8.5 mg/dL Normal 8.5-10.1 [facility] Comment on above: Performed By: #### L 501.9520, L501.2300, L500.4050, L501.5200, L501.9985, L100.0100 ####[facility] [address] [place], [address] Chloride [Moles/Vol] 111 mmol/L High 98-107 [facility] Comment on above: Performed By: #### L 501.9520, L501.2300, L500.4050, L501.5200, L501.9985, L100.0100 ####[facility] [address] [place], [address] CO2 [Moles/Vol] 26.0 mmol/L Normal 21.0-32.0 [facility] Comment on above: Performed By: #### L 501.9520, L501.2300, L500.4050, L501.5200, L501.9985, L100.0100 ####[facility] [address] [place], [address] Creatinine [Mass/Vol] 0.73 mg/dL Normal 0.55-1.02 [facility] Comment on above: Result Comment: The validity of the calculated GFR GFRAA in patients over70 years has not been determined. Clinical correlation isessential. Performed By: #### L 501.9520, L501.2300, L500.4050, L501.5200, L501.9985, L100.0100 ####[facility] [address] [place], [address] ECRCL 78.65 ml/min Normal [facility] Comment on above: Performed By: #### L 501.9520, L501.2300, L500.4050, L501.5200, L501.9985, L100.0100 ####[facility] [address] [place], [address] EST GFR - AA 101 mL/min Normal >60 [facility] Comment on above: Result Comment: Afri can Malaysian GFR Calc Performed By: #### L 501.9520, L501.2300, L500.4050, L501.5200, L501.9985, L100.0100 ####[facility] [address] [place], [address] GAP 6 Normal 5-15 [facility] Comment on above: Performed By: #### L 501.9520, L501.2300, L500.4050, L501.5200, L501.9985, L100.0100 ####[facility] [address] [place], [address] GFR/1.73 sq M.predicted among non-blacks MDRD (S/P/Bld) [Vol rate/Area] 84 mL/min/{1.73_m2} Normal >60 [facility] Comment on above: Result Comment: Non- GFR Calc Performed By: #### L 501.9520, L501.2300, L500.4050, L501.5200, L501.9985, L100.0100 ####[facility] [address] [place], [address] Globulin (S) [Mass/Vol] 3.0 g/dL Normal 2.2-4.2 [facility] Comment on above: Performed By: #### L 501.9520, L501.2300, L500.4050, L501.5200, L501.9985, L100.0100 ####[facility] [address] [place], [address] Glucose [Mass/Vol] 97 mg/dL Normal 74-106 [facility] Comment on above: Performed By: #### L 501.9520, L501.2300, L500.4050, L501.5200, L501.9985, L100.0100 ####[facility] [address] [place], [address] Potassium [Moles/Vol] 3.7 mmol/L Normal 3.5-5.1 [facility] Comment on above: Performed By: #### L 501.9520, L501.2300, L500.4050, L501.5200, L501.9985, L100.0100 ####[facility] [address] [place], [address] Sodium [Moles/Vol] 143 mmol/L Normal 136-145 [facility] Comment on above: Performed By: #### L 501.9520, L501.2300, L500.4050, L501.5200, L501.9985, L100.0100 ####[facility] [address] [place], [address] T PROT 6.4 g/dL Normal 6.4-8.2 [facility] Comment on above: Performed By: #### L 501.9520, L501.2300, L500.4050, L501.5200, L501.9985, L100.0100 ####[facility] [address] [place], [address] Urea nitrogen [Mass/Vol] 15 mg/dL Normal 7-18 [facility] Comment on above: Performed By: #### L 501.9520, L501.2300, L500.4050, L501.5200, L501.9985, L100.0100 ####[facility] [address] [place], [address] Hemoglobin A1con 06-13-2024 HbA1c (Bld) [Mass fraction] 5.4 % Normal 3.8-5.6 [facility] Comment on above: Result Comment: Norm al < 5.7 % Prediabetic 5.7 - 6.4 % Diabetic >or= 6.5 % Please note range changes. Performed By: #### L 501.9520, L501.2300, L500.4050, L501.5200, L501.9985, L100.0100 ####[facility] [address] [place], [address] Magnesiumon 06-13-2024 Magnesium [Mass/Vol] 2.0 mg/dL Normal 1.6-2.6 [facility] Comment on above: Performed By: #### L 501.9520, L501.2300, L500.4050, L501.5200, L501.9985, L100.0100 ####[facility] [address] [place], [address] Phosphoruson 06-13-2024 Phosphate [Mass/Vol] 2.9 mg/dL Normal 2.5-4.9 [facility] Comment on above: Performed By: #### L 501.9520, L501.2300, L500.4050, L501.5200, L501.9985, L100.0100 ####[facility] [address] [place], [address] Thyroid Stim Hormone (TSH)on 06-13-2024 TSH 6.070 uIU/mL High 0.358-3.740 [facility] Comment on above: Performed By: #### L 501.9520, L501.2300, L500.4050, L501.5200, L501.9985, L100.0100 ####[facility] [address] [place], [address] 12 Lead EKGon 06-12-2024 12 Lead EKG Normal [facility] Basic Metabolic Profile (BMP )on 06-12-2024 BUN/CRE 25.1 RATIO High 10-20 [facility] Comment on above: Performed By: #### L 500.2500, L100.0100, L501.3620 ####[facility] [address] [place], [address] CA,Total 8.9 mg/dL Normal 8.5-10.1 [facility] Comment on above: Performed By: #### L 500.2500, L100.0100, L501.3620 ####[facility] [address] [place], [address] Chloride [Moles/Vol] 112 mmol/L High 98-107 [facility] Comment on above: Performed By: #### L 500.2500, L100.0100, L501.3620 ####[facility] [address] [place], [address] CO2 [Moles/Vol] 26.0 mmol/L Normal 21.0-32.0 [facility] Comment on above: Performed By: #### L 500.2500, L100.0100, L501.3620 ####[facility] [address] [place], [address] Creatinine [Mass/Vol] 0.68 mg/dL Normal 0.55-1.02 [facility] Comment on above: Result Comment: The validity of the calculated GFR GFRAA in patients over70 years has not been determined. Clinical correlation isessential. Performed By: #### L 500.2500, L100.0100, L501.3620 ####[facility] [address] [place], [address] ECRCL 81.38 ml/min Normal [facility] Comment on above: Performed By: #### L 500.2500, L100.0100, L501.3620 ####[facility] [address] [place], [address] EST GFR - AA 110 mL/min Normal >60 [facility] Comment on above: Result Comment: Afri can Malaysian GFR Calc Performed By: #### L 500.2500, L100.0100, L501.3620 ####[facility] [address] [place], [address] GAP 5 Normal 5-15 [facility] Comment on above: Performed By: #### L 500.2500, L100.0100, L501.3620 ####[facility] [address] [place], [address] GFR/1.73 sq M.predicted among non-blacks MDRD (S/P/Bld) [Vol rate/Area] 91 mL/min/{1.73_m2} Normal >60 [facility] Comment on above: Result Comment: Non- GFR Calc Performed By: #### L 500.2500, L100.0100, L501.3620 ####[facility] [address] [place], [address] Glucose [Mass/Vol] 88 mg/dL Normal 74-106 [facility] Comment on above: Performed By: #### L 500.2500, L100.0100, L501.3620 ####[facility] [address] [place], [address] Potassium [Moles/Vol] 3.8 mmol/L Normal 3.5-5.1 [facility] Comment on above: Performed By: #### L 500.2500, L100.0100, L501.3620 ####[facility] [address] [place], [address] Sodium [Moles/Vol] 143 mmol/L Normal 136-145 [facility] Comment on above: Performed By: #### L 500.2500, L100.0100, L501.3620 ####[facility] [address] [place], [address] Urea nitrogen [Mass/Vol] 17 mg/dL Normal 7-18 [facility] Comment on above: Performed By: #### L 500.2500, L100.0100, L501.3620 ####[facility] [address] [place], [address] CBC W/Diff, Automatedon 11-0 SMEAR COMMENT SCANNED Normal [facility] Comment on above: Result Comment: LYMP HOCYTOSIS NOTED Performed By: #### L 500.2500, L100.0100, L501.3620 ####[facility] [address] [place], [address] CPK Total, Creatine Kinaseon 06-12-2024 CPK TOTAL 366 U/L High 26-192 [facility] Comment on above: Performed By: #### L 500.2500, L100.0100, L501.3620 ####[facility] [address] [place], [address] Consultation - Hospitaliston 06-12-2024 Consultation - Hospitalist Normal [facility] Emergency Department Summary on 06-12-2024 Emergency Department Summary Normal [facility] Urinalysis, Completeon 06-12 BACTERIA RARE Normal None Seen [facility] Comment on above: Order Comment: COLLE CTOR TO SPECIFY Performed By: #### L 400.0001 ####[facility] [address] [place], [address] EPI,SQUAMOUS 0-5 SEEN Normal 5-10 [facility] Comment on above: Order Comment: COLLE CTOR TO SPECIFY Performed By: #### L 400.0001 ####[facility] [address] [place], [address] WBC 0-5 SEEN Normal 0-5 [facility] Comment on above: Order Comment: COLLE CTOR TO SPECIFY Performed By: #### L 400.0001 ####[facility] [address] [place], [address] Mucus Ql (Urine sed) 0 SEEN Normal [facility] Comment on above: Order Comment: COLLE CTOR TO SPECIFY Performed By: #### L 400.0001 ####[facility] [address] [place], [address] RBC 0 SEEN Normal 0-5 [facility] Comment on above: Order Comment: TONE CTOR TO SPECIFY Performed By: #### L 400.0001 ####[facility] [address] [place], [address] Bedside Glucoseon 06-11-2024 FINGERSTICK GLU 170 mg/dL High 74-106 [facility] Comment on above: Result Comment: CHLOE GEMENT OF PATIENT CARE PER NURSING PROTOCOL Performed By: #### L 501.080 ####[facility] [address] [place], [address] FINGERSTICK GLU 119 mg/dL High 74-106 [facility] Comment on above: Result Comment: CHLOE GEMENT OF PATIENT CARE PER NURSING PROTOCOL Performed By: #### L 501.080 ####[facility] [address] [place], [address] Foot 2 Viewson 06-11-2024 Foot 2 Views Normal [facility] MR/POSTOP.ANEon 06-11-2024 MR/POSTOP.ANE Normal [facility] MR/POSTOP.ANE Normal [facility] MR/PQHSOGOR6fw 06-11-2024 MR/POSTOPAN2 Normal [facility] Operative Reporton Operative Report Normal [facility] CBC W/Diff, Automatedon 05-11 Absolute Lymph 4.26 X10 3/uL Normal 0.83-4.51 [facility] Comment on above: Performed By: #### L 500.4050, L100.0100 ####[facility] [address] [place], [address] Absolute Neut 3.7 X10 3/uL Normal 2.0-7.7 [facility] Comment on above: Performed By: #### L 500.4050, L100.0100 ####[facility] [address] [place], [address] Basophils/100 WBC (Bld) 0.6 % Normal 0-1 [facility] Comment on above: Performed By: #### L 500.4050, L100.0100 ####[facility] [address] [place], [address] Eosinophils/100 WBC (Bld) 2.0 % Normal 0-5 [facility] Comment on above: Performed By: #### L 500.4050, L100.0100 ####[facility] [address] [place], [address] Erythrocyte distribution width (RBC) [Ratio] 13.0 % Normal 11.6-14.6 [facility] Comment on above: Performed By: #### L 500.4050, L100.0100 ####[facility] [address] [place], [address] Hematocrit (Bld) [Volume fraction] 37.3 % Normal 37-47 [facility] Comment on above: Performed By: #### L 500.4050, L100.0100 ####[facility] [address] [place], [address] Hemoglobin (Bld) [Mass/Vol] 11.8 g/dL Low 12.0-15.0 [facility] Comment on above: Performed By: #### L 500.4050, L100.0100 ####[facility] [address] [place], [address] IG% 0.300 Normal 0.0-0.9 [facility] Comment on above: Result Comment: IG% - Immature Granulocytes (promyelocytes, myelocytes andmetamyelocytes) > 1% indicates that a LEFT SHIFT is Present. Performed By: #### L 500.4050, L100.0100 ####[facility] [address] [place], [address] Lymphocytes/100 WBC (Bld) 48.5 % High 19-41 [facility] Comment on above: Performed By: #### L 500.4050, L100.0100 ####[facility] [address] [place], [address] MCH (RBC) [Entitic mass] 31.7 pg Normal 27.0-32.0 [facility] Comment on above: Performed By: #### L 500.4050, L100.0100 ####[facility] [address] [place], [address] MCHC (RBC) [Mass/Vol] 31.6 g/dL Low 32-36 [facility] Comment on above: Performed By: #### L 500.4050, L100.0100 ####[facility] [address] [place], [address] MCV (RBC) [Entitic vol] 100.3 fL High 81-99 [facility] Comment on above: Performed By: #### L 500.4050, L100.0100 ####[facility] [address] [place], [address] Monocytes/100 WBC (Bld) 7.1 % Normal 0-10 [facility] Comment on above: Performed By: #### L 500.4050, L100.0100 ####[facility] [address] [place], [address] Neutrophils/100 WBC (Bld) 41.5 % Low 47-70 [facility] Comment on above: Performed By: #### L 500.4050, L100.0100 ####[facility] [address] [place], [address] Nucleated RBC (Bld) [#/Vol] 0 10*3/uL Normal 0-5 [facility] Comment on above: Performed By: #### L 500.4050, L100.0100 ####[facility] [address] [place], [address] Platelet mean volume (Bld) [Entitic vol] 9.2 fL Normal 6.2-12.0 [facility] Comment on above: Performed By: #### L 500.4050, L100.0100 ####[facility] [address] [place], [address] Platelets (Bld) [#/Vol] 318 10*3/uL Normal 150-450 [facility] Comment on above: Performed By: #### L 500.4050, L100.0100 ####[facility] [address] [place], [address] RBC (Bld) [#/Vol] 3.72 10*6/uL Low 4.2-5.4 [facility] Comment on above: Performed By: #### L 500.4050, L100.0100 ####[facility] [address] [place], [address] RDW SD 47.8 fl High 35.1-43.9 [facility] Comment on above: Performed By: #### L 500.4050, L100.0100 ####[facility] [address] [place], [address] WBC (Bld) [#/Vol] 8.8 10*3/uL Normal 4.4-11.0 [facility] Comment on above: Performed By: #### L 500.4050, L100.0100 ####[facility] [address] [place], [address] Comprehensive Metabolic Prof ilon 05-25-2024 Albumin [Mass/Vol] 3.7 g/dL Normal 3.2-5.0 [facility] Comment on above: Performed By: #### L 500.4050, L100.0100 ####[facility] [address] [place], [address] Albumin/Globulin [Mass ratio] 1.3 {ratio} Normal 0.9-2.4 [facility] Comment on above: Performed By: #### L 500.4050, L100.0100 ####[facility] [address] [place], [address] ALK P 93 U/L Normal 45-117 [facility] Comment on above: Performed By: #### L 500.4050, L100.0100 ####[facility] [address] [place], [address] ALT [Catalytic activity/Vol] 27 U/L Normal 13-56 [facility] Comment on above: Performed By: #### L 500.4050, L100.0100 ####[facility] [address] [place], [address] AST [Catalytic activity/Vol] 20 U/L Normal 15-37 [facility] Comment on above: Performed By: #### L 500.4050, L100.0100 ####[facility] [address] [place], [address] Bilirubin [Mass/Vol] 0.40 mg/dL Normal 0.20-1.00 [facility] Comment on above: Result Comment: For patients on eltrombopag therapy, use of Dimension [place] TBIL is not recommended. Performed By: #### L 500.4050, L100.0100 ####[facility] [address] [place], [address] BUN/CRE 28.0 RATIO High 10-20 [facility] Comment on above: Performed By: #### L 500.4050, L100.0100 ####[facility] [address] [place], [address] CA,Total 9.0 mg/dL Normal 8.5-10.1 [facility] Comment on above: Performed By: #### L 500.4050, L100.0100 ####[facility] [address] [place], [address] Chloride [Moles/Vol] 112 mmol/L High 98-107 [facility] Comment on above: Performed By: #### L 500.4050, L100.0100 ####[facility] [address] [place], [address] CO2 [Moles/Vol] 27.0 mmol/L Normal 21.0-32.0 [facility] Comment on above: Performed By: #### L 500.4050, L100.0100 ####[facility] [address] [place], [address] Creatinine [Mass/Vol] 0.82 mg/dL Normal 0.55-1.02 [facility] Comment on above: Result Comment: The validity of the calculated GFR GFRAA in patients over70 years has not been determined. Clinical correlation isessential. Performed By: #### L 500.4050, L100.0100 ####[facility] [address] [place], [address] EST GFR - AA 88 mL/min Normal >60 [facility] Comment on above: Result Comment: Afri can Malaysian GFR Calc Performed By: #### L 500.4050, L100.0100 ####[facility] [address] [place], [address] GAP 3 Low 5-15 [facility] Comment on above: Performed By: #### L 500.4050, L100.0100 ####[facility] [address] [place], [address] GFR/1.73 sq M.predicted among non-blacks MDRD (S/P/Bld) [Vol rate/Area] 73 mL/min/{1.73_m2} Normal >60 [facility] Comment on above: Result Comment: Non- GFR Calc Performed By: #### L 500.4050, L100.0100 ####[facility] [address] [place], [address] Globulin (S) [Mass/Vol] 2.9 g/dL Normal 2.2-4.2 [facility] Comment on above: Performed By: #### L 500.4050, L100.0100 ####[facility] [address] [place], [address] Glucose [Mass/Vol] 92 mg/dL Normal 74-106 [facility] Comment on above: Performed By: #### L 500.4050, L100.0100 ####[facility] [address] [place], [address] Potassium [Moles/Vol] 4.0 mmol/L Normal 3.5-5.1 [facility] Comment on above: Performed By: #### L 500.4050, L100.0100 ####[facility] [address] [place], [address] Sodium [Moles/Vol] 142 mmol/L Normal 136-145 [facility] Comment on above: Performed By: #### L 500.4050, L100.0100 ####[facility] [address] [place], [address] T PROT 6.6 g/dL Normal 6.4-8.2 [facility] Comment on above: Performed By: #### L 500.4050, L100.0100 ####[facility] [address] [place], [address] Urea nitrogen [Mass/Vol] 23 mg/dL High 7-18 [facility] Comment on above: Performed By: #### L 500.4050, L100.0100 ####[facility] [address] [place], [address] Gastroenterology Visit Repor ton 05-17-2024 Gastroenterology Visit Report Normal [facility] Microalb:Creat Ratio,Random URon 05-13-2024 MALB:CRE TNP Normal <30 mg/g CRE [facility] Comment on above: Performed By: #### L 502.0250 ####[facility] [address] [place], [address] MICROALBUMIN,UR < 5.0 Normal NO RANGE EST. [facility] Comment on above: Performed By: #### L 502.0250 ####[facility] [address] [place], [address] UR CREAT < 13.00 Normal NO RANGE EST. [facility] Comment on above: Performed By: #### L 502.0250 ####[facility] [address] [place], [address] MRI BRAIN WITHOUT CONTRASTon 02-13-2024 MRI BRAIN WITHOUT CONTRAST EXAM: MRI brain without intravenous contrast; NeuroQuant analysis INDICATION: 73-year-old female with dementia. TECHNIQUE: Multiplanar, multisequence magnetic resonance imaging of the brain was performed without intravenous contrast on a 3 [place] magnet. Additionally, NeuroQuant analysis was performed on a 3D independent workstation. COMPARISON: None FINDINGS: MRI BRAIN: No abnormal areas of diffusion restriction to suggest acute infarct. No acute intracranial hemorrhage or extra-axial fluid collection. No mass, mass-effect, or midline shift. No abnormal foci of susceptibility artifact to suggest hemorrhage. Multiple periventricular and subcortical T2 FLAIR hyperintensities, non-specific, though likely representing sequelae of chronic microvascular disease. Joel-white matter differentiation is otherwise preserved. The ventricular system appears unremarkable. Major intracranial vascular flow voids are intact. Orbits are normal. Mild left maxillary sinus mucosal thickening. Small mastoid effusions. Scalp and calvarium appear unremarkable. Partially visualized cervical spine appears unremarkable. NEUROQUANT ANALYSIS: The left hippocampal volume was 3.28 cc. The right hippocampal volume was 3.13 cc. The left inferior lateral ventricular volume was 0.65 cc. The right inferior lateral ventricular volume was 0.89 cc. The left amygdala volume was 1.75 cc. The right amygdala volume was 1.6 cc. The right left hippocampal asymmetry index was 4.81%. The age adjusted percentile for overall hippocampal volume was 78. The age adjusted percentile for overall inferior lateral ventricular volume was 35. The age adjusted percentile for overall superior lateral ventricular volume was 35. IMPRESSION: No acute abnormality. Sequelae of chronic microvascular disease. NeuroQuant analysis as discussed above. Reported history of brain tumor. No prior imaging for comparison. Limited assessment without IV contrast. Would consider obtaining previous imaging and consideration for repeat MRI with IV contrast to ensure stability. Fran Izaguirre M.D. This report has been electronically signed and verified by the Radiologist whose name is printed above. This report contains privileged and confidential information and is intended solely for the use of the individual or entity to which it is addressed. If you are not the intended recipient of this report, you are hereby notified that any copying, distribution, dissemination or action taken in relation to the contents of this report is strictly prohibited and may be unlawful. If you have received this report in error, please notify the sender immediately at [phone] and permanently delete the original report and destroy any copies or printouts. Normal [facility] Absolute lymphocyte countOrd ered By: Cotrez Leong on 11-27-2023 Lymphocytes Auto (Unsp spec) [#/Vol] 3.60 10*3/uL 0.83-4.51 [facility] Automated lymphocyte count a s percentage of total leukocytesOrdered By: Cortez Leong on 11-27-2023 Lymphocytes/100 WBC Auto (Unsp spec) 45.5 % 19-41 [facility] Basophil percentageOrdered B y: Cortez Leong on 11-27-2023 Basophils/100 WBC (Bld) 0.4 % 0-1 [facility] Bilirubin [Mass/Vol] 0.70 mg/dL 0.20-1.00 [facility] Comment on above: For patients on eltr ombopag therapy, use of Dimension [place] TBIL is not recommended. Chloride [Moles/Vol] 109 mmol/L 98-107 [facility] Eosinophils/100 WBC (Bld) 2.5 % 0-5 [facility] Glucose [Mass/Vol] 98 mg/dL 74-106 [facility] Hemoglobin (Bld) [Mass/Vol] 11.6 g/dL 12.0-15.0 [facility] Monocytes/100 WBC (Bld) 6.3 % 0-10 [facility] Neutrophils (Bld) [#/Vol] 3.6 10*3/uL 2.0-7.7 [facility] Neutrophils/100 WBC (Bld) 44.9 % 47-70 [facility] Potassium [Moles/Vol] 3.4 mmol/L 3.5-5.1 [facility] Protein [Mass/Vol] 6.9 g/dL 6.4-8.2 [facility] Sodium [Moles/Vol] 141 mmol/L 136-145 [facility] WBC (Bld) [#/Vol] 7.9 10*3/uL 4.4-11.0 [facility] Determination of erythrocyte mean corpuscular volume (MCV)Ordered By: Cortez Leong on 11-27-2023 MCV (RBC) [Entitic vol] 99.4 fL 81-99 [facility] Erythrocyte distribution wid th ratioOrdered By: Cortez Leong on 11-27-2023 Erythrocyte distribution width (RBC) [Ratio] 13.2 % 11.6-14.6 [facility] Erythrocyte distribution wid th standard deviationOrdered By: Cortez Leong on 11-27-2023 Erythrocyte distribution width (RBC) [Entitic vol] 48.2 fL 35.1-43.9 [facility] Hematocrit Auto (Bld) [Volum e fraction]Ordered By: Cortez Leong on 11-27-2023 Hematocrit (Bld) [Volume fraction] 35.6 % 37-47 [facility] Immature granulocytes/100 WB C Auto (Bld)Ordered By: Cortez Leong on 11-27-2023 Immature granulocytes/100 WBC (Bld) 0.400 % 0.0-0.9 [facility] Comment on above: IG% - Immature Granu locytes (promyelocytes, myelocytes and metamyelocytes) > 1% indicates that a LEFT SHIFT is Present. Laboratory - Chemistry and C hemistry - challengeOrdered By: Cortez Leong on 11-27-2023 Albumin/Globulin [Mass ratio] 1.4 {ratio} 0.9-2.4 [facility] ALP [Catalytic activity/Vol] 91 U/L 45-117 [facility] ALT [Catalytic activity/Vol] 16 U/L 13-56 [facility] CO2 [Moles/Vol] 27.0 mmol/L 21.0-32.0 [facility] Globulin (S) [Mass/Vol] 2.9 g/dL 2.2-4.2 [facility] Urea nitrogen/Creatinine [Mass ratio] 27.5 mg/mg 10-20 [facility] Laboratory - Hematology and Cell countsOrdered By: Cortez Leong on 11-27-2023 MCH (RBC) [Entitic mass] 32.4 pg 27.0-32.0 [facility] MCHC (RBC) [Mass/Vol] 32.6 g/dL 32-36 [facility] Nucleated RBC/100 WBC (Bld) [Ratio] 0 % 0-5 [facility] Platelet mean volume (Bld) [Entitic vol] 9.6 fL 6.2-12.0 [facility] Platelets (Bld) [#/Vol] 310 10*3/uL 150-450 [facility] No Panel InformationOrdered By: Cortez Leong on 11-27-2023 Estimated GFR (MDRD) Amer 96 mL/min >60 [facility] Comment on above: GFR Calc Estimated GFR (MDRD) Non-Af Amer 79 mL/min >60 [facility] Comment on above: Non- GFR Calc RBC Auto (Bld) [#/Vol]Ordere d By: Cortez Leong on 11-27-2023 RBC (Bld) [#/Vol] 3.58 10*6/uL 4.2-5.4 [facility] Serum or plasma calcium sonali urement (mass/volume)Ordered By: Cortez Leong on 11-27-2023 Calcium [Mass/Vol] 8.9 mg/dL 8.5-10.1 [facility] Serum or plasma creatinine m easurement (mass/volume)Ordered By: Cortez Leong on 11-27-2023 Creatinine [Mass/Vol] 0.76 mg/dL 0.55-1.02 [facility] Comment on above: The validity of the calculated GFR & GFRAA in patients over 70 years has not been determined. Clinical correlation is essential. Serum or plasma urea nitroge n measurement (mass/volume)Ordered By: Cortez Leong on 11-27-2023 Urea nitrogen [Mass/Vol] 21 mg/dL 7-18 [facility] Thin prep Papanicolaou smear with manual screeningOrdered By: Cortez Leong on 11-27-2023 Thin prep Papanicolaou smear with manual screening 4.0 g/dL 3.2-5.0 [facility] Thin prep Papanicolaou smear with manual screening 15 U/L 15-37 [facility] Thin prep Papanicolaou smear with manual screening 5 5-15 [facility] Absolute lymphocyte countOrd ered By: Dontrell Torres on 11-14-2023 Lymphocytes Auto (Unsp spec) [#/Vol] 3.69 10*3/uL 0.83-4.51 [facility] Albumin Elph [Mass/Vol]Order ed By: Dontrell Torres on 11-14-2023 Albumin [Mass/Vol] 4.1 g/dL 2.9-4.4 [facility] Automated lymphocyte count a s percentage of total leukocytesOrdered By: Dontrell Torres on 11-14-2023 Lymphocytes/100 WBC Auto (Unsp spec) 47.9 % 19-41 [facility] Basophil percentageOrdered B y: Dontrell Torres on 11-14-2023 Basophils/100 WBC (Bld) 0.6 % 0-1 [facility] Bilirubin [Mass/Vol] 0.60 mg/dL 0.20-1.00 [facility] Comment on above: For patients on eltr ombopag therapy, use of Dimension [place] TBIL is not recommended. Chloride [Moles/Vol] 107 mmol/L 98-107 [facility] Eosinophils/100 WBC (Bld) 3.1 % 0-5 [facility] Glucose [Mass/Vol] 100 mg/dL 74-106 [facility] Comment on above: Fasting Glucose resu lt from 100 to 125 mg/dL suggests IMPAIRED HOMEOSTASIS per A.D.A. criteria. Hemoglobin (Bld) [Mass/Vol] 11.4 g/dL 12.0-15.0 [facility] LDH [Catalytic activity/Vol] 268 U/L 84-246 [facility] Monocytes/100 WBC (Bld) 5.1 % 0-10 [facility] Neutrophils (Bld) [#/Vol] 3.3 10*3/uL 2.0-7.7 [facility] Neutrophils/100 WBC (Bld) 43.0 % 47-70 [facility] Potassium [Moles/Vol] 3.4 mmol/L 3.5-5.1 [facility] Protein [Mass/Vol] 7.3 g/dL 6.4-8.2 [facility] Sodium [Moles/Vol] 140 mmol/L 136-145 [facility] WBC (Bld) [#/Vol] 7.7 10*3/uL 4.4-11.0 [facility] Determination of erythrocyte mean corpuscular volume (MCV)Ordered By: Dontrell Torres on 11-14-2023 MCV (RBC) [Entitic vol] 100.6 fL 81-99 [facility] Erythrocyte distribution wid th ratioOrdered By: Dontrell Torres on 11-14-2023 Erythrocyte distribution width (RBC) [Ratio] 13.6 % 11.6-14.6 [facility] Erythrocyte distribution wid th standard deviationOrdered By: Dontrell Torres on 11-14-2023 Erythrocyte distribution width (RBC) [Entitic vol] 49.9 fL 35.1-43.9 [facility] Hematocrit Auto (Bld) [Volum e fraction]Ordered By: Dontrell Torres on 11-14-2023 Hematocrit (Bld) [Volume fraction] 35.7 % 37-47 [facility] Immature granulocytes/100 WB C Auto (Bld)Ordered By: Dontrell Torres on 11-14-2023 Immature granulocytes/100 WBC (Bld) 0.300 % 0.0-0.9 [facility] Comment on above: IG% - Immature Granu locytes (promyelocytes, myelocytes and metamyelocytes) > 1% indicates that a LEFT SHIFT is Present. Interpretation of serum or p lasma protein pattern by immunofixation (narrative resultOrdered By: Dontrell Torres on 11-14-2023 Protein Fractions Immunofixation [place] [Interp] 0.2 g/dL Not Observed [facility] Laboratory - Chemistry and C hemistry - challengeOrdered By: Dontrell Torres on 11-14-2023 Albumin/Globulin [Mass ratio] 1.3 {ratio} 0.9-2.4 [facility] ALP [Catalytic activity/Vol] 94 U/L 45-117 [facility] ALT [Catalytic activity/Vol] 20 U/L 13-56 [facility] CO2 [Moles/Vol] 28.0 mmol/L 21.0-32.0 [facility] Urea nitrogen/Creatinine [Mass ratio] 25.7 mg/mg 10-20 [facility] Laboratory - Hematology and Cell countsOrdered By: Dontrell Torres on 11-14-2023 MCH (RBC) [Entitic mass] 32.1 pg 27.0-32.0 [facility] MCHC (RBC) [Mass/Vol] 31.9 g/dL 32-36 [facility] Nucleated RBC/100 WBC (Bld) [Ratio] 0 % 0-5 [facility] Platelet mean volume (Bld) [Entitic vol] 9.1 fL 6.2-12.0 [facility] Platelets (Bld) [#/Vol] 353 10*3/uL 150-450 [facility] No Panel InformationOrdered By: Dontrell Torres on 11-14-2023 Addendum Document Comment . [facility] Comment on above: Protein electrophore sis scan will follow via computer,mail, or paper sales representative delivery. Estimated Creatinine Clearance Calc 78.25 ml/min [facility] Estimated GFR (MDRD) Amer 84 mL/min >60 [facility] Comment on above: GFR Calc Estimated GFR (MDRD) Non-Af Amer 69 mL/min >60 [facility] Comment on above: Non- GFR Calc Free Lambda Light Chains, Quant 19.2 mg/L 5.7-26.3 [facility] Immunoglobulin M 29 mg/dL 26-217 [facility] RBC Auto (Bld) [#/Vol]Ordere d By: Dontrell Torres on 11-14-2023 RBC (Bld) [#/Vol] 3.55 10*6/uL 4.2-5.4 [facility] Serum [id number] measu rement by electrophoresisOrdered By: Dontrell Torres on 11-14-2023 Alpha 1 globulin Elph [Mass/Vol] 0.2 g/dL 0.0-0.4 [facility] Alpha 1 globulin Elph [Mass/Vol] 0.6 g/dL 0.4-1.0 [facility] Serum globulin measurement ( mass/volume)Ordered By: Dontrell Torres on 11-14-2023 Globulin (S) [Mass/Vol] 2.6 g/dL 2.2-3.9 [facility] Serum immunoglobulin kappa l ight chains/immunoglobulin lambda light chains mass ratioOrdered By: Dontrell Torres on 11-14-2023 Immunoglobulin light chains.kappa/Immunoglobul in light chains.lambda (S) [Mass ratio] 0.80 0.26-1.65 [facility] Comment on above: Performed at: [address] [id number] Director: Brian Bautista PhD, Phone: [phone] Serum or plasma IgA measurem ent (mass/volume)Ordered By: Dontrell Torres on 11-14-2023 IgA [Mass/Vol] 264 mg/dL 87-352 [facility] Serum or plasma IgG measurem ent (mass/volume)Ordered By: Dontrell Torres on 11-14-2023 IgG [Mass/Vol] 725 mg/dL [id number] [facility] Serum or plasma beta globuli n measurement by electrophoresis (mass/volume)Ordered By: Dontrell Torres on 11-14-2023 Beta globulin Elph [Mass/Vol] 1.1 g/dL 0.7-1.3 [facility] Serum or plasma calcium sonali urement (mass/volume)Ordered By: Dontrell Torres on 11-14-2023 Calcium [Mass/Vol] 9.1 mg/dL 8.5-10.1 [facility] Serum or plasma creatinine m easurement (mass/volume)Ordered By: Dontrell Torres on 11-14-2023 Creatinine [Mass/Vol] 0.86 mg/dL 0.55-1.02 [facility] Comment on above: The validity of the calculated GFR & GFRAA in patients over 70 years has not been determined. Clinical correlation is essential. Serum or plasma gamma globul in measurement by electrophoresis (mass/volume)Ordered By: Dontrell Torres on 11-14-2023 Gamma globulin Elph [Mass/Vol] 0.7 g/dL 0.4-1.8 [facility] Serum or plasma immunoelectr ophoresis interpretation (nominal result)Ordered By: Dontrell Torres on 11-14-2023 Interpretation IEP [Interp] Comment . [facility] Comment on above: Immunofixation shows IgG monoclonal protein with lambdalight chain specificity. Serum or plasma immunoglobul in kappa light chains measurement (mass/volume)Ordered By: Dontrell Torres on 11-14-2023 Immunoglobulin light chains.kappa [Mass/Vol] 15.3 mg/L 3.3-19.4 [facility] Serum or plasma urea nitroge n measurement (mass/volume)Ordered By: Dontrell Torres on 11-14-2023 Urea nitrogen [Mass/Vol] 22 mg/dL 7-18 [facility] Thin prep Papanicolaou smear with manual screeningOrdered By: Dontrell Torres on 11-14-2023 Thin prep Papanicolaou smear with manual screening 4.1 g/dL 3.2-5.0 [facility] Thin prep Papanicolaou smear with manual screening 18 U/L 15-37 [facility] Thin prep Papanicolaou smear with manual screening 5 5-15 [facility] Thin prep Papanicolaou smear with manual screening 1.6 0.7-1.7 [facility] Total protein bloodOrdered B y: Dontrell Torres on 11-14-2023 Protein [Mass/Vol] 6.7 g/dL 6.0-8.5 [facility] Absolute lymphocyte countOrd ered By: Marycarmen Stevens on 10-14-2023 Lymphocytes Auto (Unsp spec) [#/Vol] 3.34 10*3/uL 0.83-4.51 [facility] Automated lymphocyte count a s percentage of total leukocytesOrdered By: Marycarmen Stevens on 10-14-2023 Lymphocytes/100 WBC Auto (Unsp spec) 46.8 % 19-41 [facility] Basophil percentageOrdered B y: Marycarmen Stevens on 10-14-2023 Basophils/100 WBC (Bld) 0.6 % 0-1 [facility] Bilirubin [Mass/Vol] 0.50 mg/dL 0.20-1.00 [facility] Comment on above: For patients on eltr ombopag therapy, use of Dimension [place] TBIL is not recommended. Chloride [Moles/Vol] 110 mmol/L 98-107 [facility] Eosinophils/100 WBC (Bld) 4.1 % 0-5 [facility] Glucose [Mass/Vol] 111 mg/dL 74-106 [facility] Comment on above: Fasting Glucose resu lt from 100 to 125 mg/dL suggests IMPAIRED HOMEOSTASIS per A.D.A. criteria. Hemoglobin (Bld) [Mass/Vol] 10.7 g/dL 12.0-15.0 [facility] Monocytes/100 WBC (Bld) 7.0 % 0-10 [facility] Neutrophils (Bld) [#/Vol] 2.9 10*3/uL 2.0-7.7 [facility] Neutrophils/100 WBC (Bld) 41.1 % 47-70 [facility] Potassium [Moles/Vol] 3.6 mmol/L 3.5-5.1 [facility] Protein [Mass/Vol] 6.4 g/dL 6.4-8.2 [facility] Sodium [Moles/Vol] 144 mmol/L 136-145 [facility] WBC (Bld) [#/Vol] 7.1 10*3/uL 4.4-11.0 [facility] Determination of erythrocyte mean corpuscular volume (MCV)Ordered By: Marycarmen Stevens on 10-14-2023 MCV (RBC) [Entitic vol] 98.8 fL 81-99 [facility] Erythrocyte distribution wid th ratioOrdered By: Marycarmen Stevens on 10-14-2023 Erythrocyte distribution width (RBC) [Ratio] 13.2 % 11.6-14.6 [facility] Erythrocyte distribution wid th standard deviationOrdered By: Marycarmen Stevens on 10-14-2023 Erythrocyte distribution width (RBC) [Entitic vol] 47.5 fL 35.1-43.9 [facility] Hematocrit Auto (Bld) [Volum e fraction]Ordered By: Marycarmen Stevens on 10-14-2023 Hematocrit (Bld) [Volume fraction] 34.2 % 37-47 [facility] Immature granulocytes/100 WB C Auto (Bld)Ordered By: Marycarmen Stevens on 10-14-2023 Immature granulocytes/100 WBC (Bld) 0.400 % 0.0-0.9 [facility] Comment on above: IG% - Immature Granu locytes (promyelocytes, myelocytes and metamyelocytes) > 1% indicates that a LEFT SHIFT is Present. Laboratory - Chemistry and C hemistry - challengeOrdered By: Marycarmen Stevens on 10-14-2023 Albumin/Globulin [Mass ratio] 1.4 {ratio} 0.9-2.4 [facility] ALP [Catalytic activity/Vol] 82 U/L 45-117 [facility] ALT [Catalytic activity/Vol] 17 U/L 13-56 [facility] CO2 [Moles/Vol] 27.0 mmol/L 21.0-32.0 [facility] Globulin (S) [Mass/Vol] 2.7 g/dL 2.2-4.2 [facility] Urea nitrogen/Creatinine [Mass ratio] 27.1 mg/mg 10-20 [facility] Laboratory - Hematology and Cell countsOrdered By: Marycarmen Stevens on 10-14-2023 MCH (RBC) [Entitic mass] 30.9 pg 27.0-32.0 [facility] MCHC (RBC) [Mass/Vol] 31.3 g/dL 32-36 [facility] Nucleated RBC/100 WBC (Bld) [Ratio] 0 % 0-5 [facility] Platelet mean volume (Bld) [Entitic vol] 9.3 fL 6.2-12.0 [facility] Platelets (Bld) [#/Vol] 336 10*3/uL 150-450 [facility] No Panel InformationOrdered By: Marycarmen Stevens on 10-14-2023 Estimated GFR (MDRD) Amer 85 mL/min >60 [facility] Comment on above: GFR Calc Estimated GFR (MDRD) Non-Af Amer 70 mL/min >60 [facility] Comment on above: Non- GFR Calc RBC Auto (Bld) [#/Vol]Ordere d By: Marycarmen Stevens on 10-14-2023 RBC (Bld) [#/Vol] 3.46 10*6/uL 4.2-5.4 [facility] Serum or plasma calcium sonali urement (mass/volume)Ordered By: Marycarmen Stevens on 10-14-2023 Calcium [Mass/Vol] 8.9 mg/dL 8.5-10.1 [facility] Serum or plasma creatinine m easurement (mass/volume)Ordered By: Marycarmen Stevens on 10-14-2023 Creatinine [Mass/Vol] 0.85 mg/dL 0.55-1.02 [facility] Comment on above: The validity of the calculated GFR & GFRAA in patients over 70 years has not been determined. Clinical correlation is essential. Serum or plasma urea nitroge n measurement (mass/volume)Ordered By: Marycarmen Stevens on 10-14-2023 Urea nitrogen [Mass/Vol] 23 mg/dL 7-18 [facility] Thin prep Papanicolaou smear with manual screeningOrdered By: Marycarmen Stevens on 10-14-2023 Thin prep Papanicolaou smear with manual screening 3.7 g/dL 3.2-5.0 [facility] Thin prep Papanicolaou smear with manual screening 18 U/L 15-37 [facility] Thin prep Papanicolaou smear with manual screening 7 5-15 [facility] Basophil percentageOrdered B y: Neema Kaba on 09-02-2023 Bilirubin [Mass/Vol] 0.50 mg/dL 0.20-1.00 [facility] Comment on above: For patients on eltr ombopag therapy, use of Dimension [place] TBIL is not recommended. Chloride [Moles/Vol] 109 mmol/L 98-107 [facility] Cholesterol [Mass/Vol] 178 mg/dL <200 [facility] Comment on above: <200 mg/dL Desirable 200-240 mg/dL Borderline >240 mg/dL High Risk Glucose [Mass/Vol] 95 mg/dL 74-106 [facility] Potassium [Moles/Vol] 3.8 mmol/L 3.5-5.1 [facility] Protein [Mass/Vol] 6.9 g/dL 6.4-8.2 [facility] Sodium [Moles/Vol] 139 mmol/L 136-145 [facility] Triglyceride [Mass/Vol] 168 mg/dL <199 [facility] Comment on above: The drugs N-Acetylcy steine and Metamizole may falsely depress this assay.Serum Triglycerides Reference Interval Normal <150 mg/dL Borderline high 150 - 199 mg/dL High 200 - 499 mg/dL Very High > or = 500 mg/dL High density lipoprotein (HD L) measurementOrdered By: Neema Kaba on 09-02-2023 Cholesterol in HDL (Body fld) [Mass/Vol] 55 mg/dL >40 [facility] Comment on above: The drugs N-Acetylcy steine and Metamizole may falsely depress this assay. Reference Range HDL <40 mg/dL Low HDL Cholesterol HDL >or= 60 mg/dL High HDL Cholesterol Laboratory - Chemistry and C hemistry - challengeOrdered By: Neema Kaba on 09-02-2023 Albumin/Globulin [Mass ratio] 1.2 {ratio} 0.9-2.4 [facility] ALP [Catalytic activity/Vol] 82 U/L 45-117 [facility] ALT [Catalytic activity/Vol] 17 U/L 13-56 [facility] CO2 [Moles/Vol] 26.0 mmol/L 21.0-32.0 [facility] Globulin (S) [Mass/Vol] 3.2 g/dL 2.2-4.2 [facility] Urea nitrogen/Creatinine [Mass ratio] 21.9 mg/mg 10-20 [facility] Low density lipoprotein (LDL ) cholesterol measurementOrdered By: Neema Kaba on 09-02-2023 Cholesterol in LDL (Body fld) [Moles/Vol] 89 mg/dL 0-130 [facility] No Panel InformationOrdered By: Neema Kaba on 09-02-2023 Estimated GFR (MDRD) Amer 101 mL/min >60 [facility] Comment on above: GFR Calc Estimated GFR (MDRD) Non-Af Amer 84 mL/min >60 [facility] Comment on above: Non- GFR Calc Free Triiodothyronine (T3) pg/dL 2.4 pg/mL 2.18-3.98 [facility] Serum or plasma calcium sonali urement (mass/volume)Ordered By: Neema Kaba on 09-02-2023 Calcium [Mass/Vol] 9.4 mg/dL 8.5-10.1 [facility] Serum or plasma creatinine m easurement (mass/volume)Ordered By: Neema Kaba on 09-02-2023 Creatinine [Mass/Vol] 0.73 mg/dL 0.55-1.02 [facility] Comment on above: The validity of the calculated GFR & GFRAA in patients over 70 years has not been determined. Clinical correlation is essential. Serum or plasma thyroid stim ulating hormone (TSH) measurement (units/volume)Ordered By: Neema Kaba on 09-02-2023 TSH Qn 2.16 uIU/mL 0.358-3.74 [facility] Serum or plasma urea nitroge n measurement (mass/volume)Ordered By: Neemalorena Kaba on 09-02-2023 Urea nitrogen [Mass/Vol] 16 mg/dL 7-18 [facility] Thin prep Papanicolaou smear with manual screeningOrdered By: Neema Ragjuan on 09-02-2023 Thin prep Papanicolaou smear with manual screening 3.7 g/dL 3.2-5.0 [facility] Thin prep Papanicolaou smear with manual screening 15 U/L 15-37 [facility] Thin prep Papanicolaou smear with manual screening 4 5-15 [facility] Thin prep Papanicolaou smear with manual screening 0.87 ng/dL 0.76-1.46 [facility] Very low density lipoprotein (VLDL) cholesterol measurementOrdered By: Neema Kaba on 09-02-2023 Cholesterol in VLDL Calc [Moles/Vol] 34 mg/dL 5-40 [facility] Whole blood hemoglobin A1c/t otal hemoglobin ratio (mass fraction)Ordered By: Neema Kaba on 09-02-2023 HbA1c (Bld) [Mass fraction] 4.9 % 3.8-5.6 [facility] Comment on above: Normal < 5.7 % Predi abetic 5.7 - 6.4 % Diabetic >or= 6.5 % Please note range changes. Absolute lymphocyte countOrd ered By: Marycarmen Stevens on 07-09-2023 Lymphocytes Auto (Unsp spec) [#/Vol] 3.97 10*3/uL 0.83-4.51 [facility] Basophil percentageOrdered B y: Marycarmen Stevens on 07-09-2023 Basophils/100 WBC (Bld) 0.7 % 0-1 [facility] Bilirubin [Mass/Vol] 0.40 mg/dL 0.20-1.00 [facility] Comment on above: For patients on eltr ombopag therapy, use of Dimension [place] TBIL is not recommended. Chloride [Moles/Vol] 109 mmol/L 98-107 [facility] Eosinophils/100 WBC (Bld) 3.4 % 0-5 [facility] Glucose [Mass/Vol] 109 mg/dL 74-106 [facility] Comment on above: Fasting Glucose resu lt from 100 to 125 mg/dL suggests IMPAIRED HOMEOSTASIS per A.D.A. criteria. Neutrophils (Bld) [#/Vol] 4.7 10*3/uL 2.0-7.7 [facility] Neutrophils/100 WBC (Bld) 48.8 % 47-70 [facility] Potassium [Moles/Vol] 3.3 mmol/L 3.5-5.1 [facility] Comment on above: Slight Hemolysis, Re sult may be falsely increased. Protein [Mass/Vol] 7.0 g/dL 6.4-8.2 [facility] Sodium [Moles/Vol] 141 mmol/L 136-145 [facility] WBC (Bld) [#/Vol] 9.6 10*3/uL 4.4-11.0 [facility] Blood erythrocytes count (nu mber/volume)Ordered By: Marycarmen Stevens on 07-09-2023 RBC (Bld) [#/Vol] 4.16 10*6/uL 4.2-5.4 [facility] Blood hemoglobin measurement (mass/volume)Ordered By: Marycarmen Stevens on 07-09-2023 Hemoglobin (Bld) [Mass/Vol] 13.1 g/dL 12.0-15.0 [facility] Blood lymphocytes/100 leukoc ytesOrdered By: Marycarmen Stevens on 07-09-2023 Lymphocytes/100 WBC (Bld) 41.4 % 19-41 [facility] Blood monocytes/100 leukocyt esOrdered By: Marycarmenjag Stevens on 07-09-2023 Monocytes/100 WBC (Bld) 5.5 % 0-10 [facility] Blood platelet mean volumeOr dered By: Marycarmen Stevens on 07-09-2023 Platelet mean volume (Bld) [Entitic vol] 8.9 fL 6.2-12.0 [facility] Determination of erythrocyte mean corpuscular volume (MCV)Ordered By: Marycarmen Stevens on 07-09-2023 MCV (RBC) [Entitic vol] 96.6 fL [address] [facility] Hematocrit Auto (Bld) [Volum e fraction]Ordered By: Marycarmen Setvens on 07-09-2023 Hematocrit (Bld) [Volume fraction] 40.2 % 37-47 [facility] - Chemistry and C hemistry - challengeOrdered By: Marycarmen Stevens on 07-09-2023 ALP [Catalytic activity/Vol] 81 U/L 45-117 [facility] ALT [Catalytic activity/Vol] 21 U/L 13-56 [facility] CO2 [Moles/Vol] 28.0 mmol/L 21.0-32.0 [facility] Globulin (S) [Mass/Vol] 3.3 g/dL 2.2-4.2 [facility] Urea nitrogen/Creatinine [Mass ratio] 29.6 mg/mg 10-20 [facility] - Hematology and Cell countsOrdered By: Marycarmen Stevens on 07-09-2023 Erythrocyte distribution width (RBC) [Entitic vol] 47.0 fL 35.1-43.9 [facility] Erythrocyte distribution width (RBC) [Ratio] 13.1 % 11.6-14.6 [facility] Immature granulocytes/100 WBC (Bld) 0.200 % 0.0-0.9 [facility] Comment on above: IG% - Immature Granu locytes (promyelocytes, myelocytes and metamyelocytes) > 1% indicates that a LEFT SHIFT is Present. MCH (RBC) [Entitic mass] 31.5 pg 27.0-32.0 [facility] Nucleated RBC/100 WBC (Bld) [Ratio] 0 % 0-5 [facility] MCHC Auto (RBC) [Mass/Vol]Or dered By: Marycarmen Stevens on 07-09-2023 MCHC (RBC) [Mass/Vol] 32.6 g/dL 32-36 [facility] No Panel InformationOrdered By: Marycarmen Stevens on 07-09-2023 Estimated GFR (MDRD) Amer 78 mL/min >60 [facility] Comment on above: GFR Calc Estimated GFR (MDRD) Non-Af Amer 65 mL/min >60 [facility] Comment on above: Non- GFR Calc Platelets bldOrdered By: Willy Stevens on 07-09-2023 Platelets (Bld) [#/Vol] 347 10*3/uL 150-450 [facility] Serum or plasma albumin sonali urement (mass/volume)Ordered By: Marycarmen Stevens on 07-09-2023 Albumin [Mass/Vol] 3.7 g/dL 3.2-5.0 [facility] Serum or plasma albumin/glob ulin mass ratioOrdered By: Marycarmen Stevens on 07-09-2023 Albumin/Globulin [Mass ratio] 1.1 {ratio} 0.9-2.4 [facility] Serum or plasma calcium sonali urement (mass/volume)Ordered By: Marycarmen Stevens on 07-09-2023 Calcium [Mass/Vol] 9.4 mg/dL 8.5-10.1 [facility] Serum or plasma creatinine m easurement (mass/volume)Ordered By: Marycarmen Stevens on 07-09-2023 Creatinine [Mass/Vol] 0.91 mg/dL 0.55-1.02 [facility] Comment on above: The validity of the calculated GFR & GFRAA in patients over 70 years has not been determined. Clinical correlation is essential. Serum or plasma urea nitroge n measurement (mass/volume)Ordered By: Marycarmen Stevens on 07-09-2023 Urea nitrogen [Mass/Vol] 27 mg/dL 7-18 [facility] Thin prep Papanicolaou smear with manual screeningOrdered By: Marycarmenjag Stevens on 07-09-2023 Thin prep Papanicolaou smear with manual screening 18 U/L 15-37 [facility] Comment on above: Slight Hemolysis, Re sult may be falsely increased. Thin prep Papanicolaou smear with manual screening 4 5-15 [facility] Absolute lymphocyte countOrd ered By: Vahe Nobles on 06-03-2023 Lymphocytes Auto (Unsp spec) [#/Vol] 4.82 10*3/uL 0.83-4.51 [facility] Basophil percentageOrdered B y: Vahe Nobles on 06-03-2023 Basophils/100 WBC (Bld) 0.7 % 0-1 [facility] Bilirubin [Mass/Vol] 0.30 mg/dL 0.20-1.00 [facility] Comment on above: For patients on eltr ombopag therapy, use of Dimension [place] TBIL is not recommended. Chloride [Moles/Vol] 108 mmol/L 98-107 [facility] Eosinophils/100 WBC (Bld) 1.8 % 0-5 [facility] Glucose [Mass/Vol] 99 mg/dL 74-106 [facility] Neutrophils (Bld) [#/Vol] 4.2 10*3/uL 2.0-7.7 [facility] Neutrophils/100 WBC (Bld) 42.0 % 47-70 [facility] Potassium [Moles/Vol] 3.3 mmol/L 3.5-5.1 [facility] Protein [Mass/Vol] 7.1 g/dL 6.4-8.2 [facility] Sodium [Moles/Vol] 139 mmol/L 136-145 [facility] WBC (Bld) [#/Vol] 10.0 10*3/uL 4.4-11.0 [facility] Blood erythrocytes count (nu mber/volume)Ordered By: Vahe Nobles on 06-03-2023 RBC (Bld) [#/Vol] 4.20 10*6/uL 4.2-5.4 [facility] Blood hemoglobin measurement (mass/volume)Ordered By: Vahe Nobles on 06-03-2023 Hemoglobin (Bld) [Mass/Vol] 12.7 g/dL 12.0-15.0 [facility] Blood lymphocytes/100 leukoc ytesOrdered By: Vahe Nobles on 06-03-2023 Lymphocytes/100 WBC (Bld) 48.2 % 19-41 [facility] Blood monocytes/100 leukocyt esOrdered By: Vahe Nobles on 06-03-2023 Monocytes/100 WBC (Bld) 6.3 % 0-10 [facility] Blood platelet mean volumeOr dered By: Vahe Nobles on 06-03-2023 Platelet mean volume (Bld) [Entitic vol] 8.8 fL 6.2-12.0 [facility] Determination of erythrocyte mean corpuscular volume (MCV)Ordered By: Vahe Nobles on 06-03-2023 MCV (RBC) [Entitic vol] 95.0 fL 81-99 [facility] Erythrocyte sedimentation ra teOrdered By: Vahe Nobles on 06-03-2023 ESR (Bld) [Velocity] 16 mm/h 0-30 [facility] Hematocrit Auto (Bld) [Volum e fraction]Ordered By: Vahe Nobles on 06-03-2023 Hematocrit (Bld) [Volume fraction] 39.9 % 37-47 [facility] - Chemistry and C hemistry - challengeOrdered By: Vahe Nobles on 06-03-2023 ALP [Catalytic activity/Vol] 87 U/L 45-117 [facility] ALT [Catalytic activity/Vol] 28 U/L 13-56 [facility] CO2 [Moles/Vol] 29.0 mmol/L 21.0-32.0 [facility] Globulin (S) [Mass/Vol] 3.7 g/dL 2.2-4.2 [facility] Magnesium [Mass/Vol] 2.3 mg/dL 1.6-2.6 [facility] Urea nitrogen/Creatinine [Mass ratio] 31.2 mg/mg 10-20 [facility] - Hematology and Cell countsOrdered By: Vahe Nobles on 06-03-2023 Erythrocyte distribution width (RBC) [Entitic vol] 48.5 fL 35.1-43.9 [facility] Erythrocyte distribution width (RBC) [Ratio] 14.0 % 11.6-14.6 [facility] Immature granulocytes/100 WBC (Bld) 1.000 % 0.0-0.9 [facility] Comment on above: IG% - Immature Granu locytes (promyelocytes, myelocytes and metamyelocytes) > 1% indicates that a LEFT SHIFT is Present. MCH (RBC) [Entitic mass] 30.2 pg 27.0-32.0 [facility] Nucleated RBC/100 WBC (Bld) [Ratio] 0 % 0-5 [facility] MCHC Auto (RBC) [Mass/Vol]Or dered By: Vahe Nobles on 06-03-2023 MCHC (RBC) [Mass/Vol] 31.8 g/dL 32-36 [facility] No Panel InformationOrdered By: Vahe Nobles on 06-03-2023 Estimated GFR (MDRD) Amer 96 mL/min >60 [facility] Comment on above: GFR Calc Estimated GFR (MDRD) Non-Af Amer 79 mL/min >60 [facility] Comment on above: Non- GFR Calc Platelets bldOrdered By: Alex Nobles on 06-03-2023 Platelets (Bld) [#/Vol] 403 10*3/uL 150-450 [facility] Serum or plasma C reactive p rotein measurement (mass/volume)Ordered By: Vahe Nobles on 06-03-2023 CRP [Mass/Vol] mg/L 0.0-3.0 [facility] Comment on above: C-Reactive Protein ( CRP) provides useful information for thediagnosis, therapy and monitoring of inflammatory processesand associated diseases. For the evaluation of Relative Riskfor Cardiovascular Disease, a High Sensitivity CRP (HSCRP)should be ordered. Serum or plasma albumin sonali urement (mass/volume)Ordered By: Vahe Nobles on 06-03-2023 Albumin [Mass/Vol] 3.4 g/dL 3.2-5.0 [facility] Serum or plasma albumin/glob ulin mass ratioOrdered By: Vahe Nobles on 06-03-2023 Albumin/Globulin [Mass ratio] 0.9 {ratio} 0.9-2.4 [facility] Serum or plasma calcium sonali urement (mass/volume)Ordered By: Vahe Nobles on 06-03-2023 Calcium [Mass/Vol] 8.9 mg/dL 8.5-10.1 [facility] Serum or plasma creatinine m easurement (mass/volume)Ordered By: Vahe Nobles on 06-03-2023 Creatinine [Mass/Vol] 0.77 mg/dL 0.55-1.02 [facility] Comment on above: The validity of the calculated GFR & GFRAA in patients over 70 years has not been determined. Clinical correlation is essential. Serum or plasma urea nitroge n measurement (mass/volume)Ordered By: Vahe Nobles on 06-03-2023 Urea nitrogen [Mass/Vol] 24 mg/dL 7-18 [facility] Thin prep Papanicolaou smear with manual screeningOrdered By: Vahe Nobles on 06-03-2023 Thin prep Papanicolaou smear with manual screening 18 U/L 15-37 [facility] Thin prep Papanicolaou smear with manual screening 2 5-15 [facility] Basophil percentageOrdered B y: Neema Radhadomnigajuan on 05-16-2023 Bilirubin [Mass/Vol] 0.50 mg/dL 0.20-1.00 [facility] Comment on above: For patients on eltr ombopag therapy, use of Dimension [place] TBIL is not recommended. Chloride [Moles/Vol] 105 mmol/L 98-107 [facility] Glucose [Mass/Vol] 97 mg/dL 74-106 [facility] Potassium [Moles/Vol] 3.2 mmol/L 3.5-5.1 [facility] Protein [Mass/Vol] 7.0 g/dL 6.4-8.2 [facility] Sodium [Moles/Vol] 140 mmol/L 136-145 [facility] - Chemistry and C hemistry - challengeOrdered By: Neema Kaba on 05-16-2023 ALP [Catalytic activity/Vol] 95 U/L 45-117 [facility] ALT [Catalytic activity/Vol] 22 U/L 13-56 [facility] CO2 [Moles/Vol] 29.0 mmol/L 21.0-32.0 [facility] Globulin (S) [Mass/Vol] 3.5 g/dL 2.2-4.2 [facility] Urea nitrogen/Creatinine [Mass ratio] 31.1 mg/mg 10-20 [facility] No Panel InformationOrdered By: Neema Kaba on 05-16-2023 Adrenocorticotropic Hormone 17.7 pg/mL 7.2-63.3 [facility] Comment on above: ACTH reference inter scot for samples collected between 7 and10 AM.Performed at: [facility] [id number] Director: Brian Bautista PhD, Phone: [phone] Estimated GFR (MDRD) Amer 83 mL/min >60 [facility] Comment on above: GFR Calc Estimated GFR (MDRD) Non-Af Amer 68 mL/min >60 [facility] Comment on above: Non- GFR Calc Free Triiodothyronine (T3) pg/dL 3.0 pg/mL 2.18-3.98 [facility] Thyroid Stimulating Hormone (TSH) 4.55 uIU/mL 0.358-3.74 [facility] Urine Microalbumin/Creatinine Ratio 6.7 mg/g CRE <30 [facility] Vitamin D 25-Hydroxy 44.8 ng/mL [facility] Comment on above: Vitamin D 25(OH) Sta tus Range Deficiency <20 ng/mL (50nmol/L) Insufficiency 20 - 30 ng/mL (50 - 75 nmol/L) Sufficiency 30 - 100 ng/mL (75 - 250 nmol/L) Toxicity >100 ng/mL (>250 nmol/L) Serum or plasma albumin sonali urement (mass/volume)Ordered By: Neema Kaba on 05-16-2023 Albumin [Mass/Vol] 3.5 g/dL 3.2-5.0 [facility] Serum or plasma albumin/glob ulin mass ratioOrdered By: Neemalorena Kaba on 05-16-2023 Albumin/Globulin [Mass ratio] 1.0 {ratio} 0.9-2.4 [facility] Serum or plasma calcium sonali urement (mass/volume)Ordered By: Neema Kaba on 05-16-2023 Calcium [Mass/Vol] 8.5 mg/dL 8.5-10.1 [facility] Serum or plasma creatinine m easurement (mass/volume)Ordered By: Neema Kaba on 05-16-2023 Creatinine [Mass/Vol] 0.87 mg/dL 0.55-1.02 [facility] Comment on above: The validity of the calculated GFR & GFRAA in patients over 70 years has not been determined. Clinical correlation is essential. Serum or plasma urea nitroge n measurement (mass/volume)Ordered By: Neema Kaba on 05-16-2023 Urea nitrogen [Mass/Vol] 27 mg/dL 7-18 [facility] Thin prep Papanicolaou smear with manual screeningOrdered By: Neema Kaba on 05-16-2023 Thin prep Papanicolaou smear with manual screening 14 U/L 15-37 [facility] Thin prep Papanicolaou smear with manual screening 6 5-15 [facility] Thin prep Papanicolaou smear with manual screening 10.4 mg/L NO RANGE EST. [facility] Urine creatinine measurement (mass/volume)Ordered By: Neema Kaba on 05-16-2023 Creatinine (U) [Mass/Vol] 155.00 mg/dL NO RANGE EST. [facility] Whole blood hemoglobin A1c/t otal hemoglobin ratio (mass fraction)Ordered By: Neema Kaba on 05-16-2023 HbA1c (Bld) [Mass fraction] 5.7 % 3.8-5.6 [facility] Comment on above: Normal < 5.7 % Predi abetic 5.7 - 6.4 % Diabetic >or= 6.5 % Please note range changes. Absolute lymphocyte countOrd ered By: Marycarmen Stevens on 04-16-2023 Lymphocytes Auto (Unsp spec) [#/Vol] 4.00 10*3/uL 0.83-4.51 [facility] Basophil percentageOrdered B y: Marycarmen Stevens on 04-16-2023 Basophils/100 WBC (Bld) 0.5 % 0-1 [facility] Bilirubin [Mass/Vol] 0.50 mg/dL 0.20-1.00 [facility] Comment on above: For patients on eltr ombopag therapy, use of Dimension [place] TBIL is not recommended. Chloride [Moles/Vol] 107 mmol/L 98-107 [facility] Eosinophils/100 WBC (Bld) 1.5 % 0-5 [facility] Glucose [Mass/Vol] 103 mg/dL 74-106 [facility] Comment on above: Fasting Glucose resu lt from 100 to 125 mg/dL suggests IMPAIRED HOMEOSTASIS per A.D.A. criteria. Neutrophils (Bld) [#/Vol] 4.9 10*3/uL 2.0-7.7 [facility] Neutrophils/100 WBC (Bld) 50.5 % 47-70 [facility] Potassium [Moles/Vol] 3.6 mmol/L 3.5-5.1 [facility] Protein [Mass/Vol] 7.2 g/dL 6.4-8.2 [facility] Sodium [Moles/Vol] 140 mmol/L 136-145 [facility] WBC (Bld) [#/Vol] 9.7 10*3/uL 4.4-11.0 [facility] Blood erythrocytes count (nu mber/volume)Ordered By: Marycarmen Stevens on 04-16-2023 RBC (Bld) [#/Vol] 4.30 10*6/uL 4.2-5.4 [facility] Blood hemoglobin measurement (mass/volume)Ordered By: Marycamren Stevens on 04-16-2023 Hemoglobin (Bld) [Mass/Vol] 13.0 g/dL 12.0-15.0 [facility] Blood lymphocytes/100 leukoc ytesOrdered By: Marycarmen Stevens on 04-16-2023 Lymphocytes/100 WBC (Bld) 41.1 % 19-41 [facility] Blood monocytes/100 leukocyt esOrdered By: Marycarmen Stevens on 04-16-2023 Monocytes/100 WBC (Bld) 5.9 % 0-10 [facility] Blood platelet mean volumeOr dered By: Marycarmen Stevens on 04-16-2023 Platelet mean volume (Bld) [Entitic vol] 9.3 fL 6.2-12.0 [facility] Determination of erythrocyte mean corpuscular volume (MCV)Ordered By: Marycarmen Stevens on 04-16-2023 MCV (RBC) [Entitic vol] 95.1 fL 81-99 [facility] Hematocrit Auto (Bld) [Volum e fraction]Ordered By: Marycarmen Stevens on 04-16-2023 Hematocrit (Bld) [Volume fraction] 40.9 % 37-47 [facility] - Chemistry and C hemistry - challengeOrdered By: Marycarmen Stevens on 04-16-2023 ALP [Catalytic activity/Vol] 113 U/L 45-117 [facility] ALT [Catalytic activity/Vol] 28 U/L 13-56 [facility] CO2 [Moles/Vol] 26.0 mmol/L 21.0-32.0 [facility] Globulin (S) [Mass/Vol] 3.6 g/dL 2.2-4.2 [facility] Urea nitrogen/Creatinine [Mass ratio] 21.1 mg/mg 10-20 [facility] - Hematology and Cell countsOrdered By: Marycarmen Stevens on 04-16-2023 Erythrocyte distribution width (RBC) [Entitic vol] 46.8 fL 35.1-43.9 [facility] Erythrocyte distribution width (RBC) [Ratio] 13.6 % 11.6-14.6 [facility] Immature granulocytes/100 WBC (Bld) 0.500 % 0.0-0.9 [facility] Comment on above: IG% - Immature Granu locytes (promyelocytes, myelocytes and metamyelocytes) > 1% indicates that a LEFT SHIFT is Present. MCH (RBC) [Entitic mass] 30.2 pg 27.0-32.0 [facility] Nucleated RBC/100 WBC (Bld) [Ratio] 0 % 0-5 [facility] MCHC Auto (RBC) [Mass/Vol]Or dered By: Marycarmen Stevens on 04-16-2023 MCHC (RBC) [Mass/Vol] 31.8 g/dL 32-36 [facility] No Panel InformationOrdered By: Marycarmen Stevens on 04-16-2023 Estimated GFR (MDRD) Amer 97 mL/min >60 [facility] Comment on above: GFR Calc Estimated GFR (MDRD) Non-Af Amer 80 mL/min >60 [facility] Comment on above: Non- GFR Calc Platelets bldOrdered By: Willy Stevens on 04-16-2023 Platelets (Bld) [#/Vol] 382 10*3/uL 150-450 [facility] Serum or plasma albumin sonali urement (mass/volume)Ordered By: Marycarmen Stevens on 04-16-2023 Albumin [Mass/Vol] 3.6 g/dL 3.2-5.0 [facility] Serum or plasma albumin/glob ulin mass ratioOrdered By: Marycarmen Stevens on 04-16-2023 Albumin/Globulin [Mass ratio] 1.0 {ratio} 0.9-2.4 [facility] Serum or plasma calcium sonali urement (mass/volume)Ordered By: Marycarmen Stevens on 04-16-2023 Calcium [Mass/Vol] 8.9 mg/dL 8.5-10.1 [facility] Serum or plasma creatinine m easurement (mass/volume)Ordered By: Marycarmen Stevens on 04-16-2023 Creatinine [Mass/Vol] 0.76 mg/dL 0.55-1.02 [facility] Comment on above: The validity of the calculated GFR & GFRAA in patients over 70 years has not been determined. Clinical correlation is essential. Serum or plasma urea nitroge n measurement (mass/volume)Ordered By: Marycarmen Stevens on 04-16-2023 Urea nitrogen [Mass/Vol] 16 mg/dL 7-18 [facility] Thin prep Papanicolaou smear with manual screeningOrdered By: Marycarmen Stevens on 04-16-2023 Thin prep Papanicolaou smear with manual screening 18 U/L 15-37 [facility] Thin prep Papanicolaou smear with manual screening 7 5-15 [facility] - Hematology and Cell countson 03-05-2023 HbA1c (Bld) [Mass fraction] 5.7 % 4.2-6.3 [facility] Absolute lymphocyte countOrd ered By: Dr. Stevens on 01-19-2023 Lymphocytes Auto (Unsp spec) [#/Vol] 3.14 10*3/uL 0.83-4.51 [facility] Basophil percentageOrdered B y: Dr. Stevens on 01-19-2023 Basophils/100 WBC (Bld) 0.5 % 0-1 [facility] Bilirubin [Mass/Vol] 0.30 mg/dL 0.20-1.00 [facility] Comment on above: For patients on eltr ombopag therapy, use of Dimension [place] TBIL is not recommended. Chloride [Moles/Vol] 106 mmol/L 98-107 [facility] Eosinophils/100 WBC (Bld) 2.3 % 0-5 [facility] Glucose [Mass/Vol] 96 mg/dL 74-106 [facility] Neutrophils (Bld) [#/Vol] 5.2 10*3/uL 2.0-7.7 [facility] Neutrophils/100 WBC (Bld) 56.2 % 47-70 [facility] Potassium [Moles/Vol] 3.9 mmol/L 3.5-5.1 [facility] Protein [Mass/Vol] 7.0 g/dL 6.4-8.2 [facility] Sodium [Moles/Vol] 140 mmol/L 136-145 [facility] WBC (Bld) [#/Vol] 9.2 10*3/uL 4.4-11.0 [facility] Blood erythrocytes count (nu mber/volume)Ordered By: Dr. Stevens on 01-19-2023 RBC (Bld) [#/Vol] 4.07 10*6/uL 4.2-5.4 [facility] Blood hemoglobin measurement (mass/volume)Ordered By: Dr. Stevens on 01-19-2023 Hemoglobin (Bld) [Mass/Vol] 12.4 g/dL 12.0-15.0 [facility] Blood lymphocytes/100 leukoc ytesOrdered By: Dr. Stevens on 01-19-2023 Lymphocytes/100 WBC (Bld) 34.2 % 19-41 [facility] Blood monocytes/100 leukocyt esOrdered By: Dr. Stevens on 01-19-2023 Monocytes/100 WBC (Bld) 6.5 % 0-10 [facility] Blood platelet mean volumeOr dered By: Dr. Stevens on 01-19-2023 Platelet mean volume (Bld) [Entitic vol] 9.0 fL 6.2-12.0 [facility] Determination of erythrocyte mean corpuscular volume (MCV)Ordered By: Dr. Stevens on 01-19-2023 MCV (RBC) [Entitic vol] 96.6 fL 81-99 [facility] Hematocrit Auto (Bld) [Volum e fraction]Ordered By: Dr. Stevens on 01-19-2023 Hematocrit (Bld) [Volume fraction] 39.3 % 37-47 [facility] - Chemistry and C hemistry - challengeOrdered By: Dr. Stevens on 01-19-2023 ALP [Catalytic activity/Vol] 102 U/L 45-117 [facility] ALT [Catalytic activity/Vol] 23 U/L 13-56 [facility] CO2 [Moles/Vol] 30.0 mmol/L 21.0-32.0 [facility] Globulin (S) [Mass/Vol] 3.5 g/dL 2.2-4.2 [facility] Urea nitrogen/Creatinine [Mass ratio] 32.6 mg/mg 10-20 [facility] - Hematology and Cell countsOrdered By: Dr. Stevens on 01-19-2023 Erythrocyte distribution width (RBC) [Entitic vol] 50.6 fL 35.1-43.9 [facility] Erythrocyte distribution width (RBC) [Ratio] 14.4 % 11.6-14.6 [facility] Immature granulocytes/100 WBC (Bld) 0.300 % 0.0-0.9 [facility] Comment on above: IG% - Immature Granu locytes (promyelocytes, myelocytes and metamyelocytes) > 1% indicates that a LEFT SHIFT is Present. MCH (RBC) [Entitic mass] 30.5 pg 27.0-32.0 [facility] Nucleated RBC/100 WBC (Bld) [Ratio] 0 % 0-5 [facility] MCHC Auto (RBC) [Mass/Vol]Or dered By: Dr. Stevens on 01-19-2023 MCHC (RBC) [Mass/Vol] 31.6 g/dL 32-36 [facility] No Panel InformationOrdered By: Dr. Stevens on 01-19-2023 Estimated GFR (MDRD) Amer 96 mL/min >60 [facility] Comment on above: GFR Calc Estimated GFR (MDRD) Non-Af Amer 79 mL/min >60 [facility] Comment on above: Non- GFR Calc Platelets bldOrdered By: Dr. Stevens on 01-19-2023 Platelets (Bld) [#/Vol] 353 10*3/uL 150-450 [facility] Serum or plasma albumin sonali urement (mass/volume)Ordered By: Dr. Stevens on 01-19-2023 Albumin [Mass/Vol] 3.5 g/dL 3.2-5.0 [facility] Serum or plasma albumin/glob ulin mass ratioOrdered By: Dr. Stevens on 01-19-2023 Albumin/Globulin [Mass ratio] 1.0 {ratio} 0.9-2.4 [facility] Serum or plasma calcium sonali urement (mass/volume)Ordered By: Dr. Stevens on 01-19-2023 Calcium [Mass/Vol] 8.6 mg/dL 8.5-10.1 [facility] Serum or plasma creatinine m easurement (mass/volume)Ordered By: Dr. Stevens on 01-19-2023 Creatinine [Mass/Vol] 0.77 mg/dL 0.55-1.02 [facility] Comment on above: The validity of the calculated GFR & GFRAA in patients over 70 years has not been determined. Clinical correlation is essential. Serum or plasma urea nitroge n measurement (mass/volume)Ordered By: Dr. Stevens on 01-19-2023 Urea nitrogen [Mass/Vol] 25 mg/dL 7-18 [facility] Thin prep Papanicolaou smear with manual screeningOrdered By: Dr. Stevens on 01-19-2023 Thin prep Papanicolaou smear with manual screening 15 U/L 15 [facility] Thin prep Papanicolaou smear with manual screening 4 5-15 [facility] CNPNon 11-18-2022 [facility] BEBETO DEJESUS ([id number]) 1950 F Date Time Provider Department 11/18/22 LUIS EMERSON JR During your visit today, we recorded the following information about you: Laura Lyles LPN 11/18/2022 4:30 PM Signed Pt calls to report she is unable to get [facility] Crist[facility] downloaded on her computer for a virtual appt. Pt is scheduled for 11/19 @ 9:20. Pt reports she has appt because she has hypersomnolence and falls asleep when driving. Pt wanted an in office appt but was advised there were no openings until Mar. Because of what is going on with pt it was decided she needed to be seen sooner so virtual was set up. Pt is asking if the does telephone appts. Pt reports she tried to get on [facility] for pre check in but kept getting kicked out. Pt reports she is at a lose for what to do. Laura Emerson MD 11/18/2022 4:35 PM Signed No telephone encounters. Please see if any other sleep providers have available appt. MD Stephanie Dow LPN 11/19/2022 8:25 AM Signed TC to pt to attempt to try and help her with her [employer] for her virtual appointment. Pt was unable to log in and get connected to [employer]. I offered to help her reschedule to an in-person appt, she declined. She stated she has never had this much difficulty getting in to the [facility] and will be contacting her PCP to be seen elsewhere. Pt cancelled appointment today, declining to be rescheduled. Stephanie Reno LPN Allergies As of Date: 11/18/2022 Noted Allergy Reaction TORADOL (KETOROLAC TROMETHAMINE) 03/30/2007 4 - Hives DILANTIN (PHENYTOIN SODIUM EXTEND*07/21/2006 2 - Rash Date Reviewed: 05/13/2012 Reviewed by: Katheryn (Rn) MARIELLA Piper - Fully Assessed Reason for Visit: patient problem [Other] Prescriptions as of 11/19/2022 - ramelteon (ROZEREM) 8 mg tablet Take 8 mg by mouth daily at bedtime. - buPROPion SR (WELLBUTRIN SR) 150 mg 12 hr tablet Take 150 mg by mouth twice daily. - Cholecalciferol, Vitamin D3, 2,000 unit cap Take by mouth once daily. - Ergocalciferol, Vitamin D2, 50,000 unit Tab Take by mouth. - Triamterene-Hydrochlor othiazid (DYAZIDE) 37.5-25 mg ORAL Cap Take one(1) tablet daily. - zolpidem (AMBIEN) 10 mg ORAL Tab Take one(1) tablet at bedtime as needed for insomnia. - montelukast (SINGULAIR) 10 mg ORAL Tab Take one(1) tablet daily at bedtime. - PROVIGIL 100 MG TAB Take one(1) tablet daily when working - ZETIA 10 MG TAB Take one(1) tablet daily. - CALCIUM + D 600 MG-200 UNIT TAB Take one(1) tablet twice daily. - PULMICORT TURBUHALER 200 MCG/INHALATION BREATH ACTIVATED as necessary - FLONASE 50 MCG/ACTUATION NASAL SPRAY AEROSOL One puff per nostril before lying down for bed. - ALBUTEROL 90 MCG/ACTUATION AEROSOL INHALER Inhale one(1) - two(2) puffs four(4) times a day as needed for wheezing and shortness of breath. 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 Torres on 11-11-2022 Lymphocytes Auto (Unsp spec) [#/Vol] 2.80 10*3/uL 0.83-4.51 [facility] Basophil percentageOrdered B y: Dr. Torres on 11-11-2022 Basophils/100 WBC (Bld) 0.5 % 0-1 [facility] Bilirubin [Mass/Vol] 0.40 mg/dL 0.20-1.00 [facility] Comment on above: For patients on eltr ombopag therapy, use of Dimension [place] TBIL is not recommended. Chloride [Moles/Vol] 106 mmol/L 98-107 [facility] Cholesterol [Mass/Vol] 172 mg/dL <200 [facility] Comment on above: <200 mg/dL Desirable 200-240 mg/dL Borderline >240 mg/dL High Risk Eosinophils/100 WBC (Bld) 1.6 % 0-5 [facility] Glucose [Mass/Vol] 97 mg/dL 74-106 [facility] LDH [Catalytic activity/Vol] 214 U/L 84-246 [facility] Neutrophils (Bld) [#/Vol] 5.2 10*3/uL 2.0-7.7 [facility] Neutrophils/100 WBC (Bld) 60.3 % 47-70 [facility] Potassium [Moles/Vol] 3.7 mmol/L 3.5-5.1 [facility] Protein [Mass/Vol] 6.9 g/dL 6.4-8.2 [facility] Sodium [Moles/Vol] 139 mmol/L 136-145 [facility] Triglyceride [Mass/Vol] 82 mg/dL <199 [facility] Comment on above: The drugs N-Acetylcy steine and Metamizole may falsely depress this assay.Serum Triglycerides Reference Interval Normal <150 mg/dL Borderline high 150 - 199 mg/dL High 200 - 499 mg/dL Very High > or = 500 mg/dL WBC (Bld) [#/Vol] 8.6 10*3/uL 4.4-11.0 [facility] Blood erythrocytes count (nu mber/volume)Ordered By: Dr. Torres on 11-11-2022 RBC (Bld) [#/Vol] 3.84 10*6/uL 4.2-5.4 [facility] Blood hemoglobin measurement (mass/volume)Ordered By: Dr. Torres on 11-11-2022 Hemoglobin (Bld) [Mass/Vol] 11.9 g/dL 12.0-15.0 [facility] Blood lymphocytes/100 leukoc ytesOrdered By: Dr. Torres on 11-11-2022 Lymphocytes/100 WBC (Bld) 32.4 % 19-41 [facility] Blood monocytes/100 leukocyt esOrdered By: Dr. Torres on 11-11-2022 Monocytes/100 WBC (Bld) 5.0 % 0-10 [facility] Blood platelet mean volumeOr dered By: Dr. Torres on 11-11-2022 Platelet mean volume (Bld) [Entitic vol] 9.4 fL 6.2-12.0 [facility] Determination of erythrocyte mean corpuscular volume (MCV)Ordered By: Dr. Torres on 11-11-2022 MCV (RBC) [Entitic vol] 94.0 fL 81-99 [facility] Erythrocyte sedimentation ra teOrdered By: Dr. Torres on 11-11-2022 ESR (Bld) [Velocity] 14 mm/h 0-30 [facility] Hematocrit Auto (Bld) [Volum e fraction]Ordered By: Dr. Torres on 11-11-2022 Hematocrit (Bld) [Volume fraction] 36.1 % 37-47 [facility] - Chemistry and C hemistry - challengeOrdered By: Dr. Torres on 11-11-2022 ALP [Catalytic activity/Vol] 90 U/L 45-117 [facility] ALT [Catalytic activity/Vol] 23 U/L 13-56 [facility] CO2 [Moles/Vol] 26.0 mmol/L 21.0-32.0 [facility] Free T4 [Mass/Vol] 0.90 ng/dL 0.76-1.46 [facility] Globulin (S) [Mass/Vol] 3.3 g/dL 2.2-4.2 [facility] Urea nitrogen/Creatinine [Mass ratio] 33.2 mg/mg 10-20 [facility] - Hematology and Cell countsOrdered By: Dr. Torres on 11-11-2022 Erythrocyte distribution width (RBC) [Entitic vol] 44.8 fL 35.1-43.9 [facility] Erythrocyte distribution width (RBC) [Ratio] 13.1 % 11.6-14.6 [facility] Immature granulocytes/100 WBC (Bld) 0.200 % 0.0-0.9 [facility] Comment on above: IG% - Immature Granu locytes (promyelocytes, myelocytes and metamyelocytes) > 1% indicates that a LEFT SHIFT is Present. MCH (RBC) [Entitic mass] 31.0 pg 27.0-32.0 [facility] Nucleated RBC/100 WBC (Bld) [Ratio] 0 % 0-5 [facility] MCHC Auto (RBC) [Mass/Vol]Or dered By: Dr. Torres on 11-11-2022 MCHC (RBC) [Mass/Vol] 33.0 g/dL 32-36 [facility] No Panel InformationOrdered By: Dr. Torres on 11-11-2022 Free Lambda Light Chains, Quant 19.6 mg/L 5.7-26.3 [facility] Vitamin D 25-Hydroxy 64.4 ng/mL [facility] Comment on above: Vitamin D 25(OH) Sta tus Range Deficiency <20 ng/mL (50nmol/L) Insufficiency 20 - 30 ng/mL (50 - 75 nmol/L) Sufficiency 30 - 100 ng/mL (75 - 250 nmol/L) Toxicity >100 ng/mL (>250 nmol/L) Estimated GFR (MDRD) Amer 94 mL/min >60 [facility] Comment on above: GFR Calc Estimated GFR (MDRD) Non-Af Amer 77 mL/min >60 [facility] Comment on above: Non- GFR Calc Free Triiodothyronine (T3) pg/dL 2.6 pg/mL 2.18-3.98 [facility] Thyroid Stimulating Hormone (TSH) 0.99 uIU/mL 0.358-3.74 [facility] Platelets bldOrdered By: Dr. Torres on 11-11-2022 Platelets (Bld) [#/Vol] 377 10*3/uL 150-450 [facility] Serum immunoglobulin kappa l ight chains/immunoglobulin lambda light chains mass ratioOrdered By: Dr. Torres on 11-11-2022 Immunoglobulin light chains.kappa/Immunoglobul in light chains.lambda (S) [Mass ratio] 0.93 0.26-1.65 [facility] Comment on above: Performed at: [place] [id number] Director: Brian Bautista PhD, Phone: [phone] Serum or plasma albumin sonali urement (mass/volume)Ordered By: Dr. Torres on 11-11-2022 Albumin [Mass/Vol] 3.6 g/dL 3.2-5.0 [facility] Serum or plasma albumin/glob ulin mass ratioOrdered By: Dr. Torres on 11-11-2022 Albumin/Globulin [Mass ratio] 1.1 {ratio} 0.9-2.4 [facility] Serum or plasma calcium sonali urement (mass/volume)Ordered By: Dr. Torres on 11-11-2022 Calcium [Mass/Vol] 9.0 mg/dL 8.5-10.1 [facility] Serum or plasma cholesterol in HDL measurement (mass/volume)Ordered By: Dr. Torres on 11-11-2022 Cholesterol in HDL [Mass/Vol] 62 mg/dL >40 [facility] Comment on above: The drugs N-Acetylcy steine and Metamizole may falsely depress this assay. Reference Range HDL <40 mg/dL Low HDL Cholesterol HDL >or= 60 mg/dL High HDL Cholesterol Serum or plasma cholesterol in VLDL measurement (mass/volume)Ordered By: Dr. Torres on 11-11-2022 Cholesterol in VLDL [Mass/Vol] 16 mg/dL 5-40 [facility] Serum or plasma creatinine m easurement (mass/volume)Ordered By: Dr. Torres on 11-11-2022 Creatinine [Mass/Vol] 0.78 mg/dL 0.55-1.02 [facility] Comment on above: The validity of the calculated GFR & GFRAA in patients over 70 years has not been determined. Clinical correlation is essential. Serum or plasma immunoglobul in kappa light chains measurement (mass/volume)Ordered By: Dr. Torres on 11-11-2022 Immunoglobulin light chains.kappa [Mass/Vol] 18.2 mg/L 3.3-19.4 [facility] Serum or plasma low density lipoprotein (LDL) cholesterol measurement (mass/volume)Ordered By: Dr. Torres on 11-11-2022 Cholesterol in LDL [Mass/Vol] 94 mg/dL 0-130 [facility] Serum or plasma urea nitroge n measurement (mass/volume)Ordered By: Dr. Torres on 11-11-2022 Urea nitrogen [Mass/Vol] 26 mg/dL 7-18 [facility] Thin prep Papanicolaou smear with manual screeningOrdered By: Dr. Torres on 11-11-2022 Thin prep Papanicolaou smear with manual screening 19 U/L 15-37 [facility] Thin prep Papanicolaou smear with manual screening 7 5-15 [facility] Whole blood hemoglobin A1c/t otal hemoglobin ratio (mass fraction)Ordered By: Dr. Torres on 11-11-2022 HbA1c (Bld) [Mass fraction] % 3.8-5.6 [facility] Comment on above: Normal < 5.7 % Predi abetic 5.7 - 6.4 % Diabetic >or= 6.5 % Please note range changes. Absolute lymphocyte countOrd ered By: Dr. Stevens on 10-28-2022 Lymphocytes Auto (Unsp spec) [#/Vol] 3.36 10*3/uL 0.83-4.51 [facility] Basophil percentageOrdered B y: Dr. Stevens on 10-28-2022 Basophils/100 WBC (Bld) 0.6 % 0-1 [facility] Bilirubin [Mass/Vol] 0.30 mg/dL 0.20-1.00 [facility] Comment on above: For patients on eltr ombopag therapy, use of Dimension [place] TBIL is not recommended. Chloride [Moles/Vol] 105 mmol/L 98-107 [facility] Eosinophils/100 WBC (Bld) 2.2 % 0-5 [facility] Glucose [Mass/Vol] 88 mg/dL 74-106 [facility] Neutrophils (Bld) [#/Vol] 2.8 10*3/uL 2.0-7.7 [facility] Neutrophils/100 WBC (Bld) 40.9 % 47-70 [facility] Potassium [Moles/Vol] 3.8 mmol/L 3.5-5.1 [facility] Protein [Mass/Vol] 7.1 g/dL 6.4-8.2 [facility] Sodium [Moles/Vol] 141 mmol/L 136-145 [facility] WBC (Bld) [#/Vol] 6.7 10*3/uL 4.4-11.0 [facility] Blood erythrocytes count (nu mber/volume)Ordered By: Dr. Stevens on 10-28-2022 RBC (Bld) [#/Vol] 4.05 10*6/uL 4.2-5.4 [facility] Blood hemoglobin measurement (mass/volume)Ordered By: Dr. Stevens on 10-28-2022 Hemoglobin (Bld) [Mass/Vol] 12.5 g/dL 12.0-15.0 [facility] Blood lymphocytes/100 leukoc ytesOrdered By: Dr. Stevens on 10-28-2022 Lymphocytes/100 WBC (Bld) 49.9 % 19-41 [facility] Blood monocytes/100 leukocyt esOrdered By: Dr. Stevens on 10-28-2022 Monocytes/100 WBC (Bld) 6.1 % 0-10 [facility] Blood platelet mean volumeOr dered By: Dr. Stevens on 10-28-2022 Platelet mean volume (Bld) [Entitic vol] 9.6 fL 6.2-12.0 [facility] Determination of erythrocyte mean corpuscular volume (MCV)Ordered By: Dr. Stevens on 10-28-2022 MCV (RBC) [Entitic vol] 96.5 fL 81-99 [facility] Hematocrit Auto (Bld) [Volum e fraction]Ordered By: Dr. Stevens on 10-28-2022 Hematocrit (Bld) [Volume fraction] 39.1 % 37-47 [facility] - Chemistry and C hemistry - challengeOrdered By: Dr. Stevens on 10-28-2022 ALP [Catalytic activity/Vol] 92 U/L 45-117 [facility] ALT [Catalytic activity/Vol] 22 U/L 13-56 [facility] CO2 [Moles/Vol] 29.0 mmol/L 21.0-32.0 [facility] Globulin (S) [Mass/Vol] 3.4 g/dL 2.2-4.2 [facility] Urea nitrogen/Creatinine [Mass ratio] 36.2 mg/mg 10-20 [facility] - Hematology and Cell countsOrdered By: Dr. Stevens on 10-28-2022 Erythrocyte distribution width (RBC) [Entitic vol] 45.7 fL 35.1-43.9 [facility] Erythrocyte distribution width (RBC) [Ratio] 12.8 % 11.6-14.6 [facility] Immature granulocytes/100 WBC (Bld) 0.300 % 0.0-0.9 [facility] Comment on above: IG% - Immature Granu locytes (promyelocytes, myelocytes and metamyelocytes) > 1% indicates that a LEFT SHIFT is Present. MCH (RBC) [Entitic mass] 30.9 pg 27.0-32.0 [facility] Nucleated RBC/100 WBC (Bld) [Ratio] 0 % 0-5 [facility] MCHC Auto (RBC) [Mass/Vol]Or dered By: Dr. Stevens on 10-28-2022 MCHC (RBC) [Mass/Vol] 32.0 g/dL 32-36 [facility] No Panel InformationOrdered By: Dr. Stevens on 10-28-2022 Estimated GFR (MDRD) Amer 99 mL/min >60 [facility] Comment on above: GFR Calc Estimated GFR (MDRD) Non-Af Amer 82 mL/min >60 [facility] Comment on above: Non- GFR Calc Platelets bldOrdered By: Dr. Stevens on 10-28-2022 Platelets (Bld) [#/Vol] 342 10*3/uL 150-450 [facility] Serum or plasma albumin sonali urement (mass/volume)Ordered By: Dr. Stevens on 10-28-2022 Albumin [Mass/Vol] 3.7 g/dL 3.2-5.0 [facility] Serum or plasma albumin/glob ulin mass ratioOrdered By: Dr. Stevens on 10-28-2022 Albumin/Globulin [Mass ratio] 1.1 {ratio} 0.9-2.4 [facility] Serum or plasma calcium sonali urement (mass/volume)Ordered By: Dr. Stevens on 10-28-2022 Calcium [Mass/Vol] 9.3 mg/dL 8.5-10.1 [facility] Serum or plasma creatinine m easurement (mass/volume)Ordered By: Dr. Stevens on 10-28-2022 Creatinine [Mass/Vol] 0.75 mg/dL 0.55-1.02 [facility] Comment on above: The validity of the calculated GFR & GFRAA in patients over 70 years has not been determined. Clinical correlation is essential. Serum or plasma urea nitroge n measurement (mass/volume)Ordered By: Dr. Stevens on 10-28-2022 Urea nitrogen [Mass/Vol] 27 mg/dL 7-18 [facility] Thin prep Papanicolaou smear with manual screeningOrdered By: Dr. Stevens on 10-28-2022 Thin prep Papanicolaou smear with manual screening 15 U/L 15-37 [facility] Thin prep Papanicolaou smear with manual screening 7 5-15 [facility] CNPNon 10-08[facility]2022 [facility] BEBETO DEJESUS ([id number]) 1950 F Date Time Provider Department 10/08/22 NEUROLOGY PROVIDER NIQ During your visit today, we recorded the following information about you: Shawnee Palencia Pss 10/08/2022 5:15 PM Signed Spoke with the patient and scheduled her an appointment for Sleep Apnea. Medical records were sent to [facility]. Mailed the patient an appointment reminder and a MyChart information. Allergies As of Date: 10/08/2022 Noted Allergy Reaction TORADOL (KETOROLAC TROMETHAMINE) 03/30/2007 4 - Hives DILANTIN (PHENYTOIN SODIUM EXTEND*07/21/2006 2 - Rash Date Reviewed: 05/13/2012 Reviewed by: Katheryn HuntleyRn) MARIELLA Piper - Fully Assessed Reason for Visit: Referral Request [124] Prescriptions as of 10/08/2022 - ramelteon (ROZEREM) 8 mg tablet Take 8 mg by mouth daily at bedtime. - buPROPion SR (WELLBUTRIN SR) 150 mg 12 hr tablet Take 150 mg by mouth twice daily. - Cholecalciferol, Vitamin D3, 2,000 unit cap Take by mouth once daily. - Ergocalciferol, Vitamin D2, 50,000 unit Tab Take by mouth. - Triamterene-Hydrochlor othiazid (DYAZIDE) 37.5-25 mg ORAL Cap Take one(1) tablet daily. - zolpidem (AMBIEN) 10 mg ORAL Tab Take one(1) tablet at bedtime as needed for insomnia. - montelukast (SINGULAIR) 10 mg ORAL Tab Take one(1) tablet daily at bedtime. - PROVIGIL 100 MG TAB Take one(1) tablet daily when working - ZETIA 10 MG TAB Take one(1) tablet daily. - CALCIUM + D 600 MG-200 UNIT TAB Take one(1) tablet twice daily. - PULMICORT TURBUHALER 200 MCG/INHALATION BREATH ACTIVATED as necessary - FLONASE 50 MCG/ACTUATION NASAL SPRAY AEROSOL One puff per nostril before lying down for bed. - ALBUTEROL 90 MCG/ACTUATION AEROSOL INHALER Inhale one(1) - two(2) puffs four(4) times a day as needed for wheezing and shortness of breath. 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] 03/30/2007 Family history of malignant neoplasm of gastroi*05/07/2012 Encounter Status:Closed by SHAWNEE ASH on 10/08/22 [facility]FAMPWS[facility] BEBETO DEJESUS ([id number]) 1950 F Date Time Provider Department 10/07/22 [facility] During your visit today, we recorded the following information about you: Stuart Blair MA 10/07/2022 4:12 PM Signed Received fax referral from [facility]) Pulmonary Medicine [facility]-Rekha Dorman CNP for sleep medicine. DX: Primary central sleep apnea (G47.31) Comment: sleep apnea, concern for narcolepsy. Will forward to Amy. Stuart Blair MA Allergies As of Date: 10/07/2022 Noted Allergy Reaction TORADOL (KETOROLAC TROMETHAMINE) 03/30/2007 4 - Hives DILANTIN (PHENYTOIN SODIUM EXTEND*07/21/2006 2 - Rash Date Reviewed: 05/13/2012 Reviewed by: Katheryn (Rn) MARIELLA Piper - Fully Assessed Reason for Visit: Received Outside Medical Records [[id number]] Cmt: Referral for [facility] Sleep medicine-[facility] from [facility] Pulmonary Medicine [facility] Prescriptions as of 10/07/2022 - ramelteon (ROZEREM) 8 mg tablet Take 8 mg by mouth daily at bedtime. - buPROPion SR (WELLBUTRIN SR) 150 mg 12 hr tablet Take 150 mg by mouth twice daily. - Cholecalciferol, Vitamin D3, 2,000 unit cap Take by mouth once daily. - Ergocalciferol, Vitamin D2, 50,000 unit Tab Take by mouth. - Triamterene-Hydrochlor othiazid (DYAZIDE) 37.5-25 mg ORAL Cap Take one(1) tablet daily. - zolpidem (AMBIEN) 10 mg ORAL Tab Take one(1) tablet at bedtime as needed for insomnia. - montelukast (SINGULAIR) 10 mg ORAL Tab Take one(1) tablet daily at bedtime. - PROVIGIL 100 MG TAB Take one(1) tablet daily when working - ZETIA 10 MG TAB Take one(1) tablet daily. - CALCIUM + D 600 MG-200 UNIT TAB Take one(1) tablet twice daily. - PULMICORT TURBUHALER 200 MCG/INHALATION BREATH ACTIVATED as necessary - FLONASE 50 MCG/ACTUATION NASAL SPRAY AEROSOL One puff per nostril before lying down for bed. - ALBUTEROL 90 MCG/ACTUATION AEROSOL INHALER Inhale one(1) - two(2) puffs four(4) times a day as needed for wheezing and shortness of breath. 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 Stevens on 08-06-2022 Lymphocytes Auto (Unsp spec) [#/Vol] 4.35 10*3/uL 0.83-4.51 [facility] Basophil percentageOrdered B y: Dr. Stevens on 08-06-2022 Basophils/100 WBC (Bld) 0.5 % 0-1 [facility] Bilirubin [Mass/Vol] 0.50 mg/dL 0.20-1.00 [facility] Comment on above: For patients on eltr ombopag therapy, use of Dimension [place] TBIL is not recommended. Chloride [Moles/Vol] 109 mmol/L 98-107 [facility] Eosinophils/100 WBC (Bld) 2.2 % 0-5 [facility] Glucose [Mass/Vol] 96 mg/dL 74-106 [facility] Neutrophils (Bld) [#/Vol] 5.1 10*3/uL 2.0-7.7 [facility] Neutrophils/100 WBC (Bld) 48.9 % 47-70 [facility] Potassium [Moles/Vol] 3.6 mmol/L 3.5-5.1 [facility] Protein [Mass/Vol] 7.3 g/dL 6.4-8.2 [facility] Sodium [Moles/Vol] 142 mmol/L 136-145 [facility] WBC (Bld) [#/Vol] 10.4 10*3/uL 4.4-11.0 [facility] Blood erythrocytes count (nu mber/volume)Ordered By: Dr. Stevens on 08-06-2022 RBC (Bld) [#/Vol] 4.34 10*6/uL 4.2-5.4 [facility] Blood hemoglobin measurement (mass/volume)Ordered By: Dr. Stevens on 08-06-2022 Hemoglobin (Bld) [Mass/Vol] 13.2 g/dL 12.0-15.0 [facility] Blood lymphocytes/100 leukoc ytesOrdered By: Dr. Stevens on 08-06-2022 Lymphocytes/100 WBC (Bld) 41.7 % 19-41 [facility] Blood monocytes/100 leukocyt esOrdered By: Dr. Stevens on 08-06-2022 Monocytes/100 WBC (Bld) 6.2 % 0-10 [facility] Blood platelet mean volumeOr dered By: Dr. Stevens on 08-06-2022 Platelet mean volume (Bld) [Entitic vol] 9.0 fL 6.2-12.0 [facility] Determination of erythrocyte mean corpuscular volume (MCV)Ordered By: Dr. Stevens on 08-06-2022 MCV (RBC) [Entitic vol] 96.3 fL 81-99 [facility] Hematocrit Auto (Bld) [Volum e fraction]Ordered By: Dr. Stevens on 08-06-2022 Hematocrit (Bld) [Volume fraction] 41.8 % 37-47 [facility] - Chemistry and C hemistry - challengeOrdered By: Dr. Stevens on 08-06-2022 ALP [Catalytic activity/Vol] 102 U/L 45-117 [facility] ALT [Catalytic activity/Vol] 24 U/L 13-56 [facility] CO2 [Moles/Vol] 28.0 mmol/L 21.0-32.0 [facility] Globulin (S) [Mass/Vol] 3.4 g/dL 2.2-4.2 [facility] Urea nitrogen/Creatinine [Mass ratio] 20.0 mg/mg 10-20 [facility] - Hematology and Cell countsOrdered By: Dr. Stevens on 08-06-2022 Erythrocyte distribution width (RBC) [Entitic vol] 47.1 fL 35.1-43.9 [facility] Erythrocyte distribution width (RBC) [Ratio] 13.2 % 11.6-14.6 [facility] Immature granulocytes/100 WBC (Bld) 0.500 % 0.0-0.9 [facility] Comment on above: IG% - Immature Granu locytes (promyelocytes, myelocytes and metamyelocytes) > 1% indicates that a LEFT SHIFT is Present. MCH (RBC) [Entitic mass] 30.4 pg 27.0-32.0 [facility] Nucleated RBC/100 WBC (Bld) [Ratio] 0 % 0-5 [facility] MCHC Auto (RBC) [Mass/Vol]Or dered By: Dr. Stevens on 08-06-2022 MCHC (RBC) [Mass/Vol] 31.6 g/dL 32-36 [facility] No Panel InformationOrdered By: Dr. Stevens on 08-06-2022 Estimated GFR (MDRD) Amer 75 mL/min >60 [facility] Comment on above: GFR Calc Estimated GFR (MDRD) Non-Af Amer 62 mL/min >60 [facility] Comment on above: Non- GFR Calc Platelets bldOrdered By: Dr. Stevens on 08-06-2022 Platelets (Bld) [#/Vol] 341 10*3/uL 150-450 [facility] Serum or plasma albumin sonali urement (mass/volume)Ordered By: Dr. Stevens on 08-06-2022 Albumin [Mass/Vol] 3.9 g/dL 3.2-5.0 [facility] Serum or plasma albumin/glob ulin mass ratioOrdered By: Dr. Stevens on 08-06-2022 Albumin/Globulin [Mass ratio] 1.1 {ratio} 0.9-2.4 [facility] Serum or plasma calcium sonali urement (mass/volume)Ordered By: Dr. Stevens on 08-06-2022 Calcium [Mass/Vol] 9.1 mg/dL 8.5-10.1 [facility] Serum or plasma creatinine m easurement (mass/volume)Ordered By: Dr. Stevens on 08-06-2022 Creatinine [Mass/Vol] 0.95 mg/dL 0.55-1.02 [facility] Comment on above: The validity of the calculated GFR & GFRAA in patients over 70 years has not been determined. Clinical correlation is essential. Serum or plasma urea nitroge n measurement (mass/volume)Ordered By: Dr. Stevens on 08-06-2022 Urea nitrogen [Mass/Vol] 19 mg/dL 7-18 [facility] Thin prep Papanicolaou smear with manual screeningOrdered By: Dr. Stevens on 08-06-2022 Thin prep Papanicolaou smear with manual screening 17 U/L 15-37 [facility] Thin prep Papanicolaou smear with manual screening 5 5-15 [facility] Basophil percentageOrdered B y: Dr. Kaba on 07-03-2022 Bilirubin [Mass/Vol] 0.70 mg/dL 0.20-1.00 [facility] Comment on above: For patients on eltr ombopag therapy, use of Dimension [place] TBIL is not recommended. Chloride [Moles/Vol] 107 mmol/L 98-107 [facility] Glucose [Mass/Vol] 110 mg/dL 74-106 [facility] Comment on above: Fasting Glucose resu lt from 100 to 125 mg/dL suggests IMPAIRED HOMEOSTASIS per A.D.A. criteria. Potassium [Moles/Vol] 3.6 mmol/L 3.5-5.1 [facility] Protein [Mass/Vol] 7.4 g/dL 6.4-8.2 [facility] Sodium [Moles/Vol] 141 mmol/L 136-145 [facility] Laboratory - Chemistry and C hemistry - challengeOrdered By: Dr. Kaba on 07-03-2022 ALP [Catalytic activity/Vol] 116 U/L 45-117 [facility] ALT [Catalytic activity/Vol] 24 U/L 13-56 [facility] CO2 [Moles/Vol] 26.0 mmol/L 21.0-32.0 [facility] Free T4 [Mass/Vol] 0.94 ng/dL 0.76-1.46 [facility] Globulin (S) [Mass/Vol] 3.7 g/dL 2.2-4.2 [facility] Urea nitrogen/Creatinine [Mass ratio] 23.2 mg/mg 10-20 [facility] No Panel InformationOrdered By: Dr. Kaba on 07-03-2022 Estimated GFR (MDRD) Amer 79 mL/min >60 [facility] Comment on above: GFR Calc Estimated GFR (MDRD) Non-Af Amer 65 mL/min >60 [facility] Comment on above: Non- GFR Calc Free Triiodothyronine (T3) pg/dL 2.7 pg/mL 2.18-3.98 [facility] Thyroid Stimulating Hormone (TSH) 2.42 uIU/mL 0.358-3.74 [facility] Serum or plasma albumin sonali urement (mass/volume)Ordered By: Dr. Kaba on 07-03-2022 Albumin [Mass/Vol] 3.7 g/dL 3.2-5.0 [facility] Serum or plasma albumin/glob ulin mass ratioOrdered By: Dr. Kaba on 07-03-2022 Albumin/Globulin [Mass ratio] 1.0 {ratio} 0.9-2.4 [facility] Serum or plasma calcium sonali urement (mass/volume)Ordered By: Dr. Kaba on 07-03-2022 Calcium [Mass/Vol] 9.2 mg/dL 8.5-10.1 [facility] Serum or plasma creatinine m easurement (mass/volume)Ordered By: Dr. Kaba on 07-03-2022 Creatinine [Mass/Vol] 0.91 mg/dL 0.55-1.02 [facility] Comment on above: The validity of the calculated GFR & GFRAA in patients over 70 years has not been determined. Clinical correlation is essential. Serum or plasma urea nitroge n measurement (mass/volume)Ordered By: Dr. Kaba on 07-03-2022 Urea nitrogen [Mass/Vol] 21 mg/dL 7-18 [facility] Thin prep Papanicolaou smear with manual screeningOrdered By: Dr. Kaba on 07-03-2022 Thin prep Papanicolaou smear with manual screening 15 U/L 15-37 [facility] Thin prep Papanicolaou smear with manual screening 8 5-15 [facility] Whole blood hemoglobin A1c/t otal hemoglobin ratio (mass fraction)Ordered By: Dr. Kaba on 07-03-2022 HbA1c (Bld) [Mass fraction] 5.7 % 3.8-5.6 [facility] Comment on above: Normal < 5.7 % Predi abetic 5.7 - 6.4 % Diabetic >or= 6.5 % Please note range changes. Chocolate RASTOrdered By: Ra ezio Nobles on 06-13-2022 Chocolate IgE Qn (S) <0.10 kU/L Class 0 [facility] Comment on above: Performed at: 50 [address] [id number] Director: Rosalva Ross MD, Phone: [phone] Laboratory - Miscellaneous t estsOrdered By: Vahe Nobles on 06-13-2022 Service comment (Unsp spec) [Interp] Comment . [facility] Comment on above: Levels of Specific I gE Class Description of Class ----- < 0.10 0 Negative 0.10 - 0.31 0/I Equivocal/Low 0.32 - 0.55 I Low 0.56 - 1.40 II Moderate 1.41 - 3.90 III High 3.91 - 19.00 IV Very High 19.01 - 100.00 V Very High >100.00 Very High No Panel InformationOrdered By: Vahe Nobles on 06-13-2022 [employer] Allergens (RAST) Negative . [facility] Comment on above: Allergens in this mi x are: Blue mussel Fish [place] Shrimp Tuna Serum beef IgE antibody assa y (units/volume)Ordered By: Vahe Nobles on 06-13-2022 Beef IgE Qn (S) <0.10 kU/L Class 0 [facility] Serum corn IgE antibody assa y (units/volume)Ordered By: Vahe Nobles on 06-13-2022 [place] IgE Qn (S) <0.10 kU/L Class 0 [facility] Serum cow milk IgE antibody assay (units/volume)Ordered By: Vahe Nobles on 06-13-2022 Cow milk IgE Qn (S) 0.12 kU/L Class 0/I [facility] Serum peanut IgE antibody as say (units/volume)Ordered By: Vahe Nobles on 06-13-2022 Peanut IgE Qn (S) <0.10 kU/L Class 0 [facility] Serum pork IgE antibody assa y (units/volume)Ordered By: Vahe Nobles on 06-13-2022 Pork IgE Qn (S) <0.10 kU/L Class 0 [facility] Serum soybean IgE antibody a ssay (units/volume)Ordered By: Vahe Nobles on 06-13-2022 Soybean IgE Qn (S) <0.10 kU/L Class 0 [facility] Serum wheat IgE antibody ass ay (units/volume)Ordered By: Vaeh Nobles on 06-13-2022 Wheat IgE Qn (S) <0.10 kU/L Class 0 [facility] Serum whole egg IgE antibody assay (units/volume)Ordered By: Vahe Nobles on 06-13-2022 Whole Egg IgE Qn (S) <0.10 kU/L Class 0 [facility] Absolute lymphocyte counton 05-16-2022 Lymphocytes Auto (Unsp spec) [#/Vol] 3.49 10*3/uL 0.83-4.51 [facility] Work Phone: Basophil percentageon 2021 Basophils/100 WBC (Bld) 0.5 % 0-1 [facility] Work Phone: Bilirubin [Mass/Vol] 0.30 mg/dL 0.20-1.00 [facility] Work Phone: Comment on above: For patients on eltr ombopag therapy, use of Dimension [place] TBIL is not recommended. Chloride [Moles/Vol] 103 mmol/L 98-107 [facility] Work Phone: Eosinophils/100 WBC (Bld) 3.1 % 0-5 [facility] Work Phone: [phone] Glucose [Mass/Vol] 94 mg/dL 74-106 [facility] Work Phone: Neutrophils (Bld) [#/Vol] 3.1 10*3/uL 2.0-7.7 [facility] Work Phone: Neutrophils/100 WBC (Bld) 42.0 % 47-70 [facility] Work Phone: Potassium [Moles/Vol] 3.8 mmol/L 3.5-5.1 [facility] Work Phone: Protein [Mass/Vol] 7.4 g/dL 6.4-8.2 [facility] Work Phone: Sodium [Moles/Vol] 140 mmol/L 136-145 [facility] Work Phone: WBC (Bld) [#/Vol] 7.3 10*3/uL 4.4-11.0 [facility] Work Phone: Blood erythrocytes count (nu mber/volume)on 05-16-2022 RBC (Bld) [#/Vol] 4.32 10*6/uL 4.2-5.4 [facility] Work Phone: Blood hemoglobin measurement (mass/volume)on 05-16-2022 Hemoglobin (Bld) [Mass/Vol] 13.5 g/dL 12.0-15.0 [facility] Work Phone: Blood lymphocytes/100 leukoc yteson 05-16-2022 Lymphocytes/100 WBC (Bld) 47.6 % 19-41 [facility] Work Phone: Blood monocytes/100 leukocyt eson 05-16-2022 Monocytes/100 WBC (Bld) 6.5 % 0-10 [facility] Work Phone: Blood platelet mean volumeon 05-16-2022 Platelet mean volume (Bld) [Entitic vol] 9.3 fL 6.2-12.0 [facility] Work Phone: Determination of erythrocyte mean corpuscular volume (MCV)on 05-16-2022 MCV (RBC) [Entitic vol] 94.7 fL 81-99 [facility] Work Phone: Hematocrit Auto (Bld) [Volum e fraction]on 05-16-2022 Hematocrit (Bld) [Volume fraction] 40.9 % 37-47 [facility] Work Phone: Laboratory - Chemistry and C hemistry - challengeon 05-16-2022 ALP [Catalytic activity/Vol] 111 U/L 45-117 [facility] Work Phone: ALT [Catalytic activity/Vol] 22 U/L 13-56 [facility] Work Phone: CO2 [Moles/Vol] 30.0 mmol/L 21.0-32.0 [facility] Work Phone: Globulin (S) [Mass/Vol] 3.7 g/dL 2.2-4.2 [facility] Work Phone: [phone] Urea nitrogen/Creatinine [Mass ratio] 23.7 mg/mg 10-20 [facility] Work Phone: Laboratory - Hematology and Cell countson 05-16-2022 Erythrocyte distribution width (RBC) [Entitic vol] 49.1 fL 35.1-43.9 [facility] Work Phone: Erythrocyte distribution width (RBC) [Ratio] 14.1 % 11.6-14.6 [facility] Work Phone: Immature granulocytes/100 WBC (Bld) 0.300 % 0.0-0.9 [facility] Work Phone: Comment on above: IG% - Immature Granu locytes (promyelocytes, myelocytes and metamyelocytes) > 1% indicates that a LEFT SHIFT is Present. MCH (RBC) [Entitic mass] 31.3 pg 27.0-32.0 [facility] Work Phone: Nucleated RBC/100 WBC (Bld) [Ratio] 0 % 0-5 [facility] Work Phone: MCHC Auto (RBC) [Mass/Vol]on 05-16-2022 MCHC (RBC) [Mass/Vol] 33.0 g/dL 32-36 [facility] Work Phone: No Panel Informationon 05-16 Estimated GFR (MDRD) Amer 73 mL/min >60 [facility] Work Phone: Comment on above: GFR Calc Estimated GFR (MDRD) Non-Af Amer 60 mL/min >60 [facility] Work Phone: Comment on above: Non- GFR Calc Platelets bldon 05-16-2022 Platelets (Bld) [#/Vol] 341 10*3/uL 150-450 [facility] Work Phone: Serum or plasma albumin sonali urement (mass/volume)on 05-16-2022 Albumin [Mass/Vol] 3.7 g/dL 3.2-5.0 [facility] Work Phone: Serum or plasma albumin/glob ulin mass ratioon 05-16-2022 Albumin/Globulin [Mass ratio] 1.0 {ratio} 0.9-2.4 [facility] Work Phone: [phone] Serum or plasma calcium sonali urement (mass/volume)on 05-16-2022 Calcium [Mass/Vol] 9.2 mg/dL 8.5-10.1 [facility] Work Phone: [phone] Serum or plasma creatinine m easurement (mass/volume)on 05-16-2022 Creatinine [Mass/Vol] 0.97 mg/dL 0.55-1.02 [facility] Work Phone: Comment on above: The validity of the calculated GFR & GFRAA in patients over 70 years has not been determined. Clinical correlation is essential. Serum or plasma urea nitroge n measurement (mass/volume)on 05-16-2022 Urea nitrogen [Mass/Vol] 23 mg/dL 7-18 [facility] Work Phone: Thin prep Papanicolaou smear with manual screeningon 05-16-2022 Thin prep Papanicolaou smear with manual screening 16 U/L 15-37 [facility] Work Phone: [phone] Thin prep Papanicolaou smear with manual screening 7 5-15 [facility] Work Phone: Basophil percentageon 2021 Bilirubin [Mass/Vol] 0.20 mg/dL 0.20-1.00 [facility] Work Phone: [phone] Comment on above: For patients on eltr ombopag therapy, use of Dimension [place] TBIL is not recommended. Chloride [Moles/Vol] 107 mmol/L 98-107 [facility] Work Phone: [phone] Cholesterol [Mass/Vol] 153 mg/dL <200 [facility] Work Phone: [phone] Comment on above: <200 mg/dL Desirable 200-240 mg/dL Borderline >240 mg/dL High Risk Glucose [Mass/Vol] 99 mg/dL 74-106 [facility] Work Phone: [phone] Potassium [Moles/Vol] 4.0 mmol/L 3.5-5.1 [facility] Work Phone: [phone] Protein [Mass/Vol] 7.0 g/dL 6.4-8.2 [facility] Work Phone: Sodium [Moles/Vol] 142 mmol/L 136-145 [facility] Work Phone: [phone] Triglyceride [Mass/Vol] 95 mg/dL <199 [facility] Work Phone: [phone] Comment on above: The drugs N-Acetylcy steine and Metamizole may falsely depress this assay.Serum Triglycerides Reference Interval Normal <150 mg/dL Borderline high 150 - 199 mg/dL High 200 - 499 mg/dL Very High > or = 500 mg/dL Laboratory - Chemistry and C hemistry - challengeon 04-05-2022 ALP [Catalytic activity/Vol] 107 U/L 45-117 [facility] Work Phone: ALT [Catalytic activity/Vol] 23 U/L 13-56 [facility] Work Phone: [phone] CO2 [Moles/Vol] 29.0 mmol/L 21.0-32.0 [facility] Work Phone: [phone] Free T4 [Mass/Vol] 0.95 ng/dL 0.76-1.46 [facility] Work Phone: [phone] Globulin (S) [Mass/Vol] 3.6 g/dL 2.2-4.2 [facility] Work Phone: [phone] Magnesium [Mass/Vol] 2.5 mg/dL 1.6-2.6 [facility] Work Phone: [phone] Urea nitrogen/Creatinine [Mass ratio] 25.2 mg/mg 10-20 [facility] Work Phone: No Panel Informationon 04-05 Adrenocorticotropic Hormone 34.7 pg/mL 7.2-63.3 [facility] Work Phone: Comment on above: ACTH reference inter scot for samples collected between 7 and10 AM. Estimated GFR (MDRD) Amer 78 mL/min >60 [facility] Work Phone: Comment on above: GFR Calc Estimated GFR (MDRD) Non-Af Amer 65 mL/min >60 [facility] Work Phone: Comment on above: Non- GFR Calc Free Triiodothyronine (T3) pg/dL 2.6 pg/mL 2.18-3.98 [facility] Work Phone: Thyroid Stimulating Hormone (TSH) 3.75 uIU/mL 0.358-3.74 [facility] Work Phone: [phone] Vitamin D 25-Hydroxy 48.8 ng/mL [facility] Work Phone: [phone] Comment on above: Vitamin D 25(OH) Sta tus Range Deficiency <20 ng/mL (50nmol/L) Insufficiency 20 - 30 ng/mL (50 - 75 nmol/L) Sufficiency 30 - 100 ng/mL (75 - 250 nmol/L) Toxicity >100 ng/mL (>250 nmol/L) Plasma renin measurement (en zymatic activity/volume)on 04-05-2022 Renin (P) [Catalytic activity/Vol] 1.499 ng/mL/hr 0.167-5.380 [facility] Work Phone: [phone] Comment on above: Performed at: [facility] [employer] [address] [id number] Director: Rosalva Ross MD, Phone: [phone] at: [employer] [facility] [id number] Director: Brian Bautista PhD, Phone: [phone] Serum or plasma albumin sonali urement (mass/volume)on 04-05-2022 Albumin [Mass/Vol] 3.4 g/dL 3.2-5.0 [facility] Work Phone: [phone] Serum or plasma albumin/glob ulin mass ratioon 04-05-2022 Albumin/Globulin [Mass ratio] 0.9 {ratio} 0.9-2.4 [facility] Work Phone: [phone] Serum or plasma calcium sonali urement (mass/volume)on 04-05-2022 Calcium [Mass/Vol] 8.8 mg/dL 8.5-10.1 [facility] Work Phone: [phone] Serum or plasma cholesterol in HDL measurement (mass/volume)on 04-05-2022 Cholesterol in HDL [Mass/Vol] 61 mg/dL >40 [facility] Work Phone: [phone] Comment on above: The drugs N-Acetylcy steine and Metamizole may falsely depress this assay. Reference Range HDL <40 mg/dL Low HDL Cholesterol HDL >or= 60 mg/dL High HDL Cholesterol Serum or plasma cholesterol in VLDL measurement (mass/volume)on 04-05-2022 Cholesterol in VLDL [Mass/Vol] 19 mg/dL 5-40 [facility] Work Phone: Serum or plasma cortisol lloyd surement (mass/volume)on 04-05-2022 Cortisol [Mass/Vol] 17.90 ug/dL 3.44-22.45 [facility] Work Phone: Comment on above: Adult (AM) 5.27 - 22 .45 ug/dL Adult (PM) 3.44 - 16.76 ug/dLPlease note revised CORTISOL reference range effective 2019. Serum or plasma creatinine m easurement (mass/volume)on 04-05-2022 Creatinine [Mass/Vol] 0.91 mg/dL 0.55-1.02 [facility] Work Phone: Comment on above: The validity of the calculated GFR & GFRAA in patients over 70 years has not been determined. Clinical correlation is essential. Serum or plasma low density lipoprotein (LDL) cholesterol measurement (mass/volume)on 04-05-2022 Cholesterol in LDL [Mass/Vol] 73 mg/dL 0-130 [facility] Work Phone: Serum or plasma urea nitroge n measurement (mass/volume)on 04-05-2022 Urea nitrogen [Mass/Vol] 23 mg/dL 7-18 [facility] Work Phone: [phone] Thin prep Papanicolaou smear with manual screeningon 04-05-2022 Thin prep Papanicolaou smear with manual screening 15 U/L 15-37 [facility] Work Phone: [phone] Thin prep Papanicolaou smear with manual screening 6 5-15 [facility] Work Phone: [phone] Thin prep Papanicolaou smear with manual screening 6.8 mg/L NO RANGE EST. [facility] Work Phone: [phone] Thin prep Papanicolaou smear with manual screening 17.8 ng/dL 0.0-30.0 [facility] Work Phone: [phone] Whole blood hemoglobin A1c/t otal hemoglobin ratio (mass fraction)on 04-05-2022 HbA1c (Bld) [Mass fraction] 5.8 % 3.8-5.6 [facility] Work Phone: Comment on above: Normal < 5.7 % Predi abetic 5.7 - 6.4 % Diabetic >or= 6.5 % Please note range changes. Basophil percentageon 2021 Basophil percentage 0 SEEN /hpf 0-5 [facility] Work Phone: Bilirubin Test strip Ql (U)o n 03-12-2022 Bilirubin Ql (U) Negative Negative [facility] Work Phone: Ketones Test strip Ql (U)on 03-12-2022 Ketones Ql (U) Negative Negative [facility] Work Phone: Mucus LM Ql (Urine sed)on Mucus Ql (Urine sed) 0 SEEN /hpf [facility] Work Phone: Nitrite Test strip Ql (U)on 03-12-2022 Nitrite Ql (U) Negative Negative [facility] Work Phone: Protein Test strip Ql (U)on 03-12-2022 Protein Ql (U) Negative Negative [facility] Work Phone: Squamous epithelial cells de tection in urine sediment by light microscopyon 03-12-2022 Epithelial cells.squamous LM Ql (Urine sed) 0 SEEN /hpf 5-10 [facility] Work Phone: Urine blood detectionon RBC Ql (U) Negative Negative [facility] Work Phone: RBC Ql (U) 0 SEEN /hpf 0-5 [facility] Work Phone: Urine clarityon 03-12-2022 Clarity (U) Clear Clear [facility] Work Phone: Urine color determinationon 03-12-2022 Color (U) Straw Yellow [facility] Work Phone: Urine glucose detectionon Glucose Ql (U) Normal mg/dl Normal [facility] Work Phone: Urine leukocyte esterase det ection by dipstickon 03-12-2022 Leukocyte esterase Test strip Ql (U) Negative Negative [facility] Work Phone: Urine pHon 03-12-2022 pH (U) 6.5 [pH] 5.0 - 8.0 [facility] Work Phone: Urine sediment bacteria coun t by microscopy (number/high power field)on 03-12-2022 Bacteria LM.HPF (Urine sed) [#/Area] 0 /[HPF] None Seen [facility] Work Phone: Urine specific gravity measu rementon 03-12-2022 Specific gravity (U) [Rel density] 1.015 1.002-1.030 [facility] Work Phone: Urobilinogen Auto test strip Ql (U)on 03-12-2022 Urobilinogen Ql (U) Normal mg/dl Normal [facility] Work Phone: Basophil percentageon 2021 Basophil percentage 0-5 SEEN /hpf 0-5 [facility] Work Phone: Bilirubin [Mass/Vol] 0.60 mg/dL 0.20-1.00 [facility] Work Phone: Comment on above: For patients on eltr ombopag therapy, use of Dimension [place] TBIL is not recommended. Chloride [Moles/Vol] 108 mmol/L 98-107 [facility] Work Phone: Glucose [Mass/Vol] 103 mg/dL 74-106 [facility] Work Phone: Comment on above: Fasting Glucose resu lt from 100 to 125 mg/dL suggests IMPAIRED HOMEOSTASIS per A.D.A. criteria. Potassium [Moles/Vol] 3.9 mmol/L 3.5-5.1 [facility] Work Phone: Protein [Mass/Vol] 7.2 g/dL 6.4-8.2 [facility] Work Phone: Sodium [Moles/Vol] 142 mmol/L 136-145 [facility] Work Phone: Bilirubin Test strip Ql (U)o n 03-08-2022 Bilirubin Ql (U) Negative Negative [facility] Work Phone: Ketones Test strip Ql (U)on 03-08-2022 Ketones Ql (U) Negative Negative [facility] Work Phone: Laboratory - Chemistry and C hemistry - challengeon 03-08-2022 ALP [Catalytic activity/Vol] 119 U/L 45-117 [facility] Work Phone: ALT [Catalytic activity/Vol] 21 U/L 13-56 [facility] Work Phone: CO2 [Moles/Vol] 28.0 mmol/L 21.0-32.0 [facility] Work Phone: Globulin (S) [Mass/Vol] 3.4 g/dL 2.2-4.2 [facility] Work Phone: Urea nitrogen/Creatinine [Mass ratio] 22.8 mg/mg 10-20 [facility] Work Phone: Mucus LM Ql (Urine sed)on Mucus Ql (Urine sed) 0 SEEN /hpf [facility] Work Phone: Nitrite Test strip Ql (U)on 03-08-2022 Nitrite Ql (U) Positive Negative [facility] Work Phone: No Panel Informationon 03-08 Estimated GFR (MDRD) Amer 78 mL/min >60 [facility] Work Phone: Comment on above: GFR Calc Estimated GFR (MDRD) Non-Af Amer 64 mL/min >60 [facility] Work Phone: Comment on above: Non- GFR Calc Protein Test strip Ql (U)on 03-08-2022 Protein Ql (U) Negative Negative [facility] Work Phone: Serum or plasma albumin sonali urement (mass/volume)on 03-08-2022 Albumin [Mass/Vol] 3.8 g/dL 3.2-5.0 [facility] Work Phone: Serum or plasma albumin/glob ulin mass ratioon 03-08-2022 Albumin/Globulin [Mass ratio] 1.1 {ratio} 0.9-2.4 [facility] Work Phone: [phone] Serum or plasma calcium sonali urement (mass/volume)on 03-08-2022 Calcium [Mass/Vol] 9.2 mg/dL 8.5-10.1 [facility] Work Phone: [phone] Serum or plasma creatinine m easurement (mass/volume)on 03-08-2022 Creatinine [Mass/Vol] 0.92 mg/dL 0.55-1.02 [facility] Work Phone: Comment on above: The validity of the calculated GFR & GFRAA in patients over 70 years has not been determined. Clinical correlation is essential. Serum or plasma urea nitroge n measurement (mass/volume)on 03-08-2022 Urea nitrogen [Mass/Vol] 21 mg/dL 7-18 [facility] Work Phone: [phone] Squamous epithelial cells de tection in urine sediment by light microscopyon 03-08-2022 Epithelial cells.squamous LM Ql (Urine sed) 0-5 SEEN /hpf 5-10 [facility] Work Phone: Thin prep Papanicolaou smear with manual screeningon 03-08-2022 Thin prep Papanicolaou smear with manual screening 16 U/L 15-37 [facility] Work Phone: [phone] Thin prep Papanicolaou smear with manual screening 6 5-15 [facility] Work Phone: [phone] Urine blood detectionon 02-09 RBC Ql (U) Negative Negative [facility] Work Phone: [phone] RBC Ql (U) 0 SEEN /hpf 0-5 [facility] Work Phone: [phone] Urine clarityon 03-08-2022 Clarity (U) Sl. Cloudy Clear [facility] Work Phone: Urine color determinationon 03-08-2022 Color (U) Yellow Yellow [facility] Work Phone: [phone] Urine glucose detectionon Glucose Ql (U) Normal mg/dl Normal [facility] Work Phone: Urine leukocyte esterase det ection by dipstickon 03-08-2022 Leukocyte esterase Test strip Ql (U) Negative Negative [facility] Work Phone: Urine pHon 03-08-2022 pH (U) 7.0 [pH] 5.0 - 8.0 [facility] Work Phone: Urine sediment bacteria coun t by microscopy (number/high power field)on 03-08-2022 Bacteria LM.HPF (Urine sed) [#/Area] 4 /[HPF] None Seen [facility] Work Phone: Urine specific gravity measu rementon 03-08-2022 Specific gravity (U) [Rel density] 1.010 1.002-1.030 [facility] Work Phone: Urobilinogen Auto test strip Ql (U)on 03-08-2022 Urobilinogen Ql (U) Normal mg/dl Normal [facility] Work Phone: Absolute lymphocyte counton 02-23-2022 Lymphocytes Auto (Unsp spec) [#/Vol] 2.92 10*3/uL 0.83-4.51 [facility] Work Phone: Basophil percentageon 2021 Basophils/100 WBC (Bld) 0.6 % 0-1 [facility] Work Phone: Bilirubin [Mass/Vol] 0.20 mg/dL 0.20-1.00 [facility] Work Phone: Comment on above: For patients on eltr ombopag therapy, use of Dimension [place] TBIL is not recommended. Chloride [Moles/Vol] 111 mmol/L 98-107 [facility] Work Phone: Eosinophils/100 WBC (Bld) 2.9 % 0-5 [facility] Work Phone: Glucose [Mass/Vol] 146 mg/dL 74-106 [facility] Work Phone: Comment on above: Fasting Glucose resu lt greater than or equal to 126 mg/dL suggests DIABETES MELLITUS per A.D.A. criteria. Neutrophils (Bld) [#/Vol] 3.7 10*3/uL 2.0-7.7 [facility] Work Phone: [phone] Neutrophils/100 WBC (Bld) 50.7 % 47-70 [facility] Work Phone: [phone] Potassium [Moles/Vol] 3.9 mmol/L 3.5-5.1 [facility] Work Phone: [phone] Protein [Mass/Vol] 6.7 g/dL 6.4-8.2 [facility] Work Phone: [phone] Sodium [Moles/Vol] 142 mmol/L 136-145 [facility] Work Phone: [phone] WBC (Bld) [#/Vol] 7.2 10*3/uL 4.4-11.0 [facility] Work Phone: [phone] Blood erythrocytes count (nu mber/volume)on 02-23-2022 RBC (Bld) [#/Vol] 3.71 10*6/uL 4.2-5.4 [facility] Work Phone: [phone] Blood hemoglobin measurement (mass/volume)on 02-23-2022 Hemoglobin (Bld) [Mass/Vol] 11.1 g/dL 12.0-15.0 [facility] Work Phone: [phone] Blood lymphocytes/100 leukoc yteson 02-23-2022 Lymphocytes/100 WBC (Bld) 40.5 % 19-41 [facility] Work Phone: [phone] Blood monocytes/100 leukocyt eson 02-23-2022 Monocytes/100 WBC (Bld) 5.0 % 0-10 [facility] Work Phone: [phone] Blood platelet mean volumeon 02-23-2022 Platelet mean volume (Bld) [Entitic vol] 9.0 fL 6.2-12.0 [facility] Work Phone: [phone] Determination of erythrocyte mean corpuscular volume (MCV)on 02-23-2022 MCV (RBC) [Entitic vol] 95.1 fL 81-99 [facility] Work Phone: [phone] Hematocrit Auto (Bld) [Volum e fraction]on 02-23-2022 Hematocrit (Bld) [Volume fraction] 35.3 % 37-47 [facility] Work Phone: [phone] Laboratory - Chemistry and C hemistry - challengeon 02-23-2022 ALP [Catalytic activity/Vol] 109 U/L 45-117 [facility] Work Phone: [phone] ALT [Catalytic activity/Vol] 21 U/L 13-56 [facility] Work Phone: [phone] CO2 [Moles/Vol] 27.0 mmol/L 21.0-32.0 [facility] Work Phone: [phone] Globulin (S) [Mass/Vol] 3.3 g/dL 2.2-4.2 [facility] Work Phone: [phone] Urea nitrogen/Creatinine [Mass ratio] 22.7 mg/mg 10-20 [facility] Work Phone: [phone] Laboratory - Hematology and Cell countson 02-23-2022 Erythrocyte distribution width (RBC) [Entitic vol] 51.8 fL 35.1-43.9 [facility] Work Phone: [phone] Erythrocyte distribution width (RBC) [Ratio] 14.8 % 11.6-14.6 [facility] Work Phone: [phone] Immature granulocytes/100 WBC (Bld) 0.300 % 0.0-0.9 [facility] Work Phone: Comment on above: IG% - Immature Granu locytes (promyelocytes, myelocytes and metamyelocytes) > 1% indicates that a LEFT SHIFT is Present. MCH (RBC) [Entitic mass] 29.9 pg 27.0-32.0 [facility] Work Phone: Nucleated RBC/100 WBC (Bld) [Ratio] 0 % 0-5 [facility] Work Phone: [phone] MCHC Auto (RBC) [Mass/Vol]on 02-23-2022 MCHC (RBC) [Mass/Vol] 31.4 g/dL 32-36 [facility] Work Phone: No Panel Informationon 02-23 Estimated GFR (MDRD) Amer 82 mL/min >60 [facility] Work Phone: Comment on above: GFR Calc Estimated GFR (MDRD) Non-Af Amer 68 mL/min >60 [facility] Work Phone: Comment on above: Non- GFR Calc Platelets bldon 02-23-2022 Platelets (Bld) [#/Vol] 337 10*3/uL 150-450 [facility] Work Phone: Serum or plasma albumin sonali urement (mass/volume)on 02-23-2022 Albumin [Mass/Vol] 3.4 g/dL 3.2-5.0 [facility] Work Phone: [phone] Serum or plasma albumin/glob ulin mass ratioon 02-23-2022 Albumin/Globulin [Mass ratio] 1.0 {ratio} 0.9-2.4 [facility] Work Phone: Serum or plasma calcium sonali urement (mass/volume)on 02-23-2022 Calcium [Mass/Vol] 8.8 mg/dL 8.5-10.1 [facility] Work Phone: Serum or plasma creatinine m easurement (mass/volume)on 02-23-2022 Creatinine [Mass/Vol] 0.88 mg/dL 0.55-1.02 [facility] Work Phone: Comment on above: The validity of the calculated GFR & GFRAA in patients over 70 years has not been determined. Clinical correlation is essential. Serum or plasma urea nitroge n measurement (mass/volume)on 02-23-2022 Urea nitrogen [Mass/Vol] 20 mg/dL 7-18 [facility] Work Phone: Thin prep Papanicolaou smear with manual screeningon 02-23-2022 Thin prep Papanicolaou smear with manual screening 15 U/L 15-37 [facility] Work Phone: Thin prep Papanicolaou smear with manual screening 4 5-15 [facility] Work Phone: Basophil percentageon 2021 Basophil percentage 0-5 SEEN /hpf 0-5 [facility] Work Phone: Chloride [Moles/Vol] 108 mmol/L 98-107 [facility] Work Phone: Glucose [Mass/Vol] 108 mg/dL 74-106 [facility] Work Phone: Comment on above: Fasting Glucose resu lt from 100 to 125 mg/dL suggests IMPAIRED HOMEOSTASIS per A.D.A. criteria. Potassium [Moles/Vol] 3.8 mmol/L 3.5-5.1 [facility] Work Phone: Sodium [Moles/Vol] 140 mmol/L 136-145 [facility] Work Phone: Bilirubin Test strip Ql (U)o n 02-19-2022 Bilirubin Ql (U) Negative Negative [facility] Work Phone: Iron measurement (mass/mass) on 02-19-2022 Iron (Unsp spec) [Mass/Mass] 25 ug/dL 50-170 [facility] Work Phone: [phone] Ketones Test strip Ql (U)on 02-19-2022 Ketones Ql (U) Negative Negative [facility] Work Phone: Laboratory - Chemistry and C hemistry - challengeon 02-19-2022 CO2 [Moles/Vol] 28.0 mmol/L 21.0-32.0 [facility] Work Phone: Urea nitrogen/Creatinine [Mass ratio] 25.1 mg/mg 10-20 [facility] Work Phone: Bilirubin Ql (U) Small (1+) [facility] Work Phone: Glucose Ql (U) Negative [facility] Work Phone: [phone] Ketones Ql (U) Trace (5) [facility] Work Phone: pH (U) 6.5 [pH] [facility] Work Phone: Specific gravity (U) [Rel density] 1.020 [facility] Work Phone: [phone] Urobilinogen (U) [Mass/Vol] 0.3441441 mg/dL [facility] Work Phone: Laboratory - Hematology and Cell countson 02-19-2022 Hemoglobin Ql (U) Negative [facility] Work Phone: Laboratory - Specimen inform ationon 02-19-2022 Clarity (U) Clear [facility] Work Phone: Color (U) Yellow [facility] Work Phone: Laboratory - Urinalysison Nitrite Ql (U) Positive [facility] Work Phone: Protein Ql (U) Trace [facility] Work Phone: Mucus LM Ql (Urine sed)on Mucus Ql (Urine sed) 0 SEEN /hpf [facility] Work Phone: Nitrite Test strip Ql (U)on 02-19-2022 Nitrite Ql (U) Positive Negative [facility] Work Phone: No Panel Informationon 02-19 Estimated GFR (MDRD) Amer 87 mL/min >60 [facility] Work Phone: Comment on above: GFR Calc Estimated GFR (MDRD) Non-Af Amer 72 mL/min >60 [facility] Work Phone: Comment on above: Non- GFR Calc Total Iron Binding Capacity 410 ug/dL 250-450 [facility] Work Phone: Urine Leukocytes Positive [facility] Work Phone: Urine Non-Hemolyzed Blood Non-Hemolyzed [facility] Work Phone: Protein Test strip Ql (U)on 02-19-2022 Protein Ql (U) Negative Negative [facility] Work Phone: Serum or plasma calcium sonali urement (mass/volume)on 02-19-2022 Calcium [Mass/Vol] 8.9 mg/dL 8.5-10.1 [facility] Work Phone: Serum or plasma creatinine m easurement (mass/volume)on 02-19-2022 Creatinine [Mass/Vol] 0.84 mg/dL 0.55-1.02 [facility] Work Phone: Comment on above: The validity of the calculated GFR & GFRAA in patients over 70 years has not been determined. Clinical correlation is essential. Serum or plasma ferritin lloyd surement (mass/volume)on 02-19-2022 Ferritin [Mass/Vol] 8 ng/mL 8-252 [facility] Work Phone: Serum or plasma urea nitroge n measurement (mass/volume)on 02-19-2022 Urea nitrogen [Mass/Vol] 21 mg/dL 7-18 [facility] Work Phone: Squamous epithelial cells de tection in urine sediment by light microscopyon 02-19-2022 Epithelial cells.squamous LM Ql (Urine sed) 0-5 SEEN /hpf 5-10 [facility] Work Phone: Thin prep Papanicolaou smear with manual screeningon 02-19-2022 Thin prep Papanicolaou smear with manual screening 4 5-15 [facility] Work Phone: Urine blood detectionon 02-08 RBC Ql (U) Negative Negative [facility] Work Phone: RBC Ql (U) 0 SEEN /hpf 0-5 [facility] Work Phone: Urine clarityon 02-19-2022 Clarity (U) Clear Clear [facility] Work Phone: Urine color determinationon 02-19-2022 Color (U) Yellow Yellow [facility] Work Phone: Urine glucose detectionon Glucose Ql (U) Normal mg/dl Normal [facility] Work Phone: [phone] Urine leukocyte esterase det ection by dipstickon 02-19-2022 Leukocyte esterase Test strip Ql (U) 25 /ul Negative [facility] Work Phone: [phone] Urine pHon 02-19-2022 pH (U) 6.0 [pH] 5.0 - 8.0 [facility] Work Phone: [phone] Urine sediment bacteria coun t by microscopy (number/high power field)on 02-19-2022 Bacteria LM.HPF (Urine sed) [#/Area] 4 /[HPF] None Seen [facility] Work Phone: Urine specific gravity measu rementon 02-19-2022 Specific gravity (U) [Rel density] 1.020 1.002-1.030 [facility] Work Phone: [phone] Urobilinogen Auto test strip Ql (U)on 02-19-2022 Urobilinogen Ql (U) Normal mg/dl Normal [facility] Work Phone: Basophil percentageon 2021 Bilirubin [Mass/Vol] 0.20 mg/dL 0.20-1.00 [facility] Work Phone: Comment on above: For patients on eltr ombopag therapy, use of Dimension [place] TBIL is not recommended. Chloride [Moles/Vol] 108 mmol/L 98-107 [facility] Work Phone: Glucose [Mass/Vol] 109 mg/dL 74-106 [facility] Work Phone: [phone] Comment on above: Fasting Glucose resu lt from 100 to 125 mg/dL suggests IMPAIRED HOMEOSTASIS per A.D.A. criteria. Potassium [Moles/Vol] 3.4 mmol/L 3.5-5.1 [facility] Work Phone: Protein [Mass/Vol] 6.8 g/dL 6.4-8.2 [facility] Work Phone: [phone] Sodium [Moles/Vol] 140 mmol/L 136-145 [facility] Work Phone: WBC (Bld) [#/Vol] 9.3 10*3/uL 4.4-11.0 [facility] Work Phone: Blood erythrocytes count (nu mber/volume)on 02-14-2022 RBC (Bld) [#/Vol] 3.65 10*6/uL 4.2-5.4 [facility]: [phone] Blood hemoglobin measurement (mass/volume)on 02-14-2022 Hemoglobin (Bld) [Mass/Vol] 10.8 g/dL 12.0-15.0 [facility] Work Phone: Blood platelet mean volumeon 02-14-2022 Platelet mean volume (Bld) [Entitic vol] 9.3 fL 6.2-12.0 [facility] Work Phone: [phone] Determination of erythrocyte mean corpuscular volume (MCV)on 02-14-2022 MCV (RBC) [Entitic vol] 94.5 fL 81-99 [facility] Work Phone: [phone] Hematocrit Auto (Bld) [Volum e fraction]on 02-14-2022 Hematocrit (Bld) [Volume fraction] 34.5 % 37-47 [facility] Work Phone: Laboratory - Chemistry and C hemistry - challengeon 02-14-2022 ALP [Catalytic activity/Vol] 104 U/L 45-117 [facility] Work Phone: [phone] ALT [Catalytic activity/Vol] 22 U/L 13-56 [facility] Work Phone: [phone] CO2 [Moles/Vol] 25.0 mmol/L 21.0-32.0 [facility] Work Phone: Free T4 [Mass/Vol] 0.90 ng/dL 0.76-1.46 [facility] Work Phone: [phone] Globulin (S) [Mass/Vol] 3.4 g/dL 2.2-4.2 [facility] Work Phone: Urea nitrogen/Creatinine [Mass ratio] 30.9 mg/mg 10-20 [facility] Work Phone: Laboratory - Hematology and Cell countson 02-14-2022 Erythrocyte distribution width (RBC) [Entitic vol] 52.8 fL 35.1-43.9 [facility] Work Phone: [phone] Erythrocyte distribution width (RBC) [Ratio] 15.2 % 11.6-14.6 [facility] Work Phone: [phone] MCH (RBC) [Entitic mass] 29.6 pg 27.0-32.0 [facility] Work Phone: MCHC Auto (RBC) [Mass/Vol]on 02-14-2022 MCHC (RBC) [Mass/Vol] 31.3 g/dL 32-36 [facility] Work Phone: No Panel Informationon 02-14 Estimated GFR (MDRD) Amer 79 mL/min >60 [facility] Work Phone: Comment on above: GFR Calc Estimated GFR (MDRD) Non-Af Amer 65 mL/min >60 [facility] Work Phone: Comment on above: Non- GFR Calc Free Triiodothyronine (T3) pg/dL 2.1 pg/mL 2.18-3.98 [facility] Work Phone: [phone] Thyroid Stimulating Hormone (TSH) 2.40 uIU/mL 0.358-3.74 [facility] Work Phone: [phone] Platelets bldon 02-14-2022 Platelets (Bld) [#/Vol] 409 10*3/uL 150-450 [facility] Work Phone: [phone] Serum or plasma albumin sonali urement (mass/volume)on 02-14-2022 Albumin [Mass/Vol] 3.4 g/dL 3.2-5.0 [facility] Work Phone: [phone] Serum or plasma albumin/glob ulin mass ratioon 02-14-2022 Albumin/Globulin [Mass ratio] 1.0 {ratio} 0.9-2.4 [facility] Work Phone: Serum or plasma calcium sonali urement (mass/volume)on 02-14-2022 Calcium [Mass/Vol] 8.6 mg/dL 8.5-10.1 [facility] Work Phone: Serum or plasma creatinine m easurement (mass/volume)on 02-14-2022 Creatinine [Mass/Vol] 0.91 mg/dL 0.55-1.02 [facility] Work Phone: Comment on above: The validity of the calculated GFR & GFRAA in patients over 70 years has not been determined. Clinical correlation is essential. Serum or plasma urea nitroge n measurement (mass/volume)on 02-14-2022 Urea nitrogen [Mass/Vol] 28 mg/dL 7-18 [facility] Work Phone: Thin prep Papanicolaou smear with manual screeningon 02-14-2022 Thin prep Papanicolaou smear with manual screening 14 U/L 15-37 [facility] Work Phone: Thin prep Papanicolaou smear with manual screening 7 5-15 [facility] Work Phone: Basophil percentageon 2021 Chloride [Moles/Vol] 111 mmol/L 98-107 [facility] Work Phone: Glucose [Mass/Vol] 85 mg/dL 74-106 [facility] Work Phone: [phone] Potassium [Moles/Vol] 3.8 mmol/L 3.5-5.1 [facility] Work Phone: Sodium [Moles/Vol] 145 mmol/L 136-145 [facility] Work Phone: Laboratory - Chemistry and C hemistry - challengeon 02-06-2022 CO2 [Moles/Vol] 30.0 mmol/L 21.0-32.0 [facility] Work Phone: Urea nitrogen/Creatinine [Mass ratio] 20.7 mg/mg 10-20 [facility] Work Phone: No Panel Informationon 02-06 Adrenocorticotropic Hormone 12.9 pg/mL 7.2-63.3 [facility] Work Phone: Comment on above: ACTH reference inter scot for samples collected between 7 and10 AM.Performed at: [facility] [id number] Director: Brian Bautista PhD, Phone: [phone] Estimated GFR (MDRD) Amer 74 mL/min >60 [facility] Work Phone: Comment on above: GFR Calc Estimated GFR (MDRD) Non-Af Amer 61 mL/min >60 [facility] Work Phone: Comment on above: Non- GFR Calc Serum or plasma calcium sonali urement (mass/volume)on 02-06-2022 Calcium [Mass/Vol] 8.6 mg/dL 8.5-10.1 [facility] Work Phone: Serum or plasma cortisol lloyd surement (mass/volume)on 02-06-2022 Cortisol [Mass/Vol] 1.70 ug/dL 3.44-22.45 [facility] Work Phone: Comment on above: Adult (AM) 5.27 - 22 .45 ug/dL Adult (PM) 3.44 - 16.76 ug/dLPlease note revised CORTISOL reference range effective 2019. Serum or plasma creatinine m easurement (mass/volume)on 02-06-2022 Creatinine [Mass/Vol] 0.96 mg/dL 0.55-1.02 [facility] Work Phone: Comment on above: The validity of the calculated GFR & GFRAA in patients over 70 years has not been determined. Clinical correlation is essential. Serum or plasma urea nitroge n measurement (mass/volume)on 02-06-2022 Urea nitrogen [Mass/Vol] 20 mg/dL 7-18 [facility] Work Phone: Thin prep Papanicolaou smear with manual screeningon 02-06-2022 Thin prep Papanicolaou smear with manual screening 4 5-15 [facility] Work Phone: Absolute lymphocyte counton 02-01-2022 Lymphocytes Auto (Unsp spec) [#/Vol] 4.33 10*3/uL 0.83-4.51 [facility] Work Phone: Basophil percentageon 2021 Basophils/100 WBC (Bld) 0.4 % 0-1 [facility] Work Phone: Bilirubin [Mass/Vol] 0.40 mg/dL 0.20-1.00 [facility] Work Phone: Comment on above: For patients on eltr ombopag therapy, use of Dimension [place] TBIL is not recommended. Chloride [Moles/Vol] 107 mmol/L 98-107 [facility] Work Phone: Eosinophils/100 WBC (Bld) 0.8 % 0-5 [facility] Work Phone: [phone] Glucose [Mass/Vol] 106 mg/dL 74-106 [facility] Work Phone: Comment on above: Fasting Glucose resu lt from 100 to 125 mg/dL suggests IMPAIRED HOMEOSTASIS per A.D.A. criteria. Neutrophils (Bld) [#/Vol] 4.8 10*3/uL 2.0-7.7 [facility] Work Phone: Neutrophils/100 WBC (Bld) 49.3 % 47-70 [facility] Work Phone: [phone] Potassium [Moles/Vol] 2.7 mmol/L 3.5-5.1 [facility] Work Phone: Comment on above: Critical Result(s) C alled at: 16:40:37 02/01/2022 by: Helio Al to Inder Marina RN (ER). Results read back by same. Protein [Mass/Vol] 7.6 g/dL 6.4-8.2 [facility] Work Phone: [phone] Sodium [Moles/Vol] 140 mmol/L 136-145 [facility] Work Phone: WBC (Bld) [#/Vol] 9.8 10*3/uL 4.4-11.0 [facility]: Blood erythrocytes count (nu mber/volume)on 02-01-2022 RBC (Bld) [#/Vol] 3.88 10*6/uL 4.2-5.4 [facility]: Blood hemoglobin measurement (mass/volume)on 02-01-2022 Hemoglobin (Bld) [Mass/Vol] 11.5 g/dL 12.0-15.0 [facility] Work Phone: [phone] Blood lymphocytes/100 leukoc yteson 02-01-2022 Lymphocytes/100 WBC (Bld) 44.4 % 19-41 [facility] Work Phone: [phone] Blood monocytes/100 leukocyt eson 02-01-2022 Monocytes/100 WBC (Bld) 5.0 % 0-10 [facility] Work Phone: Blood platelet mean volumeon 02-01-2022 Platelet mean volume (Bld) [Entitic vol] 9.8 fL 6.2-12.0 [facility] Work Phone: Determination of erythrocyte mean corpuscular volume (MCV)on 02-01-2022 MCV (RBC) [Entitic vol] 89.4 fL 81-99 [facility] Work Phone: Hematocrit Auto (Bld) [Volum e fraction]on 02-01-2022 Hematocrit (Bld) [Volume fraction] 34.7 % 37-47 [facility] Work Phone: Laboratory - Chemistry and C hemistry - challengeon 02-01-2022 ALP [Catalytic activity/Vol] 110 U/L 45-117 [facility] Work Phone: ALT [Catalytic activity/Vol] 27 U/L 13-56 [facility] Work Phone: [phone] CO2 [Moles/Vol] 25.0 mmol/L 21.0-32.0 [facility] Work Phone: Globulin (S) [Mass/Vol] 3.5 g/dL 2.2-4.2 [facility] Work Phone: [phone] Urea nitrogen/Creatinine [Mass ratio] 30.3 mg/mg 10-20 [facility] Work Phone: [phone] Laboratory - Hematology and Cell countson 02-01-2022 Erythrocyte distribution width (RBC) [Entitic vol] 47.8 fL 35.1-43.9 [facility] Work Phone: [phone] Erythrocyte distribution width (RBC) [Ratio] 14.6 % 11.6-14.6 [facility] Work Phone: [phone] Immature granulocytes/100 WBC (Bld) 0.100 % 0.0-0.9 [facility] Work Phone: [phone] Comment on above: IG% - Immature Granu locytes (promyelocytes, myelocytes and metamyelocytes) > 1% indicates that a LEFT SHIFT is Present. MCH (RBC) [Entitic mass] 29.6 pg 27.0-32.0 [facility] Work Phone: [phone] Nucleated RBC/100 WBC (Bld) [Ratio] 0 % 0-5 [facility] Work Phone: [phone] MCHC Auto (RBC) [Mass/Vol]on 02-01-2022 MCHC (RBC) [Mass/Vol] 33.1 g/dL 32-36 [facility] Work Phone: [phone] No Panel Informationon 02-01 Estimated Creatinine Clearance Calc 48.26 ml/min [facility] Work Phone: [phone] Estimated GFR (MDRD) Amer 72 mL/min >60 [facility] Work Phone: [phone] Comment on above: GFR Calc Estimated GFR (MDRD) Non-Af Amer 59 mL/min >60 [facility] Work Phone: [phone] Comment on above: Non- GFR Calc Platelets bldon 02-01-2022 Platelets (Bld) [#/Vol] 366 10*3/uL 150-450 [facility] Work Phone: [phone] Serum or plasma albumin sonali urement (mass/volume)on 02-01-2022 Albumin [Mass/Vol] 4.1 g/dL 3.2-5.0 [facility] Work Phone: Serum or plasma albumin/glob ulin mass ratioon 02-01-2022 Albumin/Globulin [Mass ratio] 1.2 {ratio} 0.9-2.4 [facility] Work Phone: Serum or plasma calcium sonali urement (mass/volume)on 02-01-2022 Calcium [Mass/Vol] 9.3 mg/dL 8.5-10.1 [facility] Work Phone: Serum or plasma cortisol lloyd surement (mass/volume)on 02-01-2022 Cortisol [Mass/Vol] 0.70 ug/dL 3.44-22.45 [facility] Work Phone: Comment on above: Adult (AM) 5.27 - 22 .45 ug/dL Adult (PM) 3.44 - 16.76 ug/dLPlease note revised CORTISOL reference range effective 2019. Serum or plasma creatinine m easurement (mass/volume)on 02-01-2022 Creatinine [Mass/Vol] 0.99 mg/dL 0.55-1.02 [facility] Work Phone: Comment on above: The validity of the calculated GFR & GFRAA in patients over 70 years has not been determined. Clinical correlation is essential. Serum or plasma urea nitroge n measurement (mass/volume)on 02-01-2022 Urea nitrogen [Mass/Vol] 30 mg/dL 7-18 [facility] Work Phone: [phone] Thin prep Papanicolaou smear with manual screeningon 02-01-2022 Thin prep Papanicolaou smear with manual screening 22 U/L 15-37 [facility] Work Phone: [phone] Thin prep Papanicolaou smear with manual screening 8 5-15 [facility] Work Phone: Absolute lymphocyte counton 01-30-2022 Lymphocytes Auto (Unsp spec) [#/Vol] 2.12 10*3/uL 0.83-4.51 [facility] Work Phone: Basophil percentageon 2021 Basophils/100 WBC (Bld) 0.1 % 0-1 [facility] Work Phone: Bilirubin [Mass/Vol] 0.50 mg/dL 0.20-1.00 [facility] Work Phone: Comment on above: For patients on eltr ombopag therapy, use of Dimension [place] TBIL is not recommended. Chloride [Moles/Vol] 103 mmol/L 98-107 [facility] Work Phone: Eosinophils/100 WBC (Bld) 0.3 % 0-5 [facility] Work Phone: Glucose [Mass/Vol] 164 mg/dL 74-106 [facility] Work Phone: Comment on above: Fasting Glucose resu lt greater than or equal to 126 mg/dL suggests DIABETES MELLITUS per A.D.A. criteria. Neutrophils (Bld) [#/Vol] 7.6 10*3/uL 2.0-7.7 [facility] Work Phone: Neutrophils/100 WBC (Bld) 73.9 % 47-70 [facility] Work Phone: Potassium [Moles/Vol] 2.9 mmol/L 3.5-5.1 [facility] Work Phone: Protein [Mass/Vol] 7.8 g/dL 6.4-8.2 [facility] Work Phone: Sodium [Moles/Vol] 138 mmol/L 136-145 [facility] Work Phone: WBC (Bld) [#/Vol] 10.2 10*3/uL 4.4-11.0 [facility] Work Phone: Blood erythrocytes count (nu mber/volume)on 01-30-2022 RBC (Bld) [#/Vol] 4.14 10*6/uL 4.2-5.4 [facility] Work Phone: Blood hemoglobin measurement (mass/volume)on 01-30-2022 Hemoglobin (Bld) [Mass/Vol] 12.2 g/dL 12.0-15.0 [facility] Work Phone: Blood lymphocytes/100 leukoc yteson 01-30-2022 Lymphocytes/100 WBC (Bld) 20.8 % 19-41 [facility] Work Phone: [phone] Blood monocytes/100 leukocyt eson 01-30-2022 Monocytes/100 WBC (Bld) 4.4 % 0-10 [facility] Work Phone: Blood platelet mean volumeon 01-30-2022 Platelet mean volume (Bld) [Entitic vol] 9.9 fL 6.2-12.0 [facility] Work Phone: [phone] Determination of erythrocyte mean corpuscular volume (MCV)on 01-30-2022 MCV (RBC) [Entitic vol] 89.9 fL 81-99 [facility] Work Phone: [phone] Hematocrit Auto (Bld) [Volum e fraction]on 01-30-2022 Hematocrit (Bld) [Volume fraction] 37.2 % 37-47 [facility] Work Phone: Laboratory - Chemistry and C hemistry - challengeon 01-30-2022 ALP [Catalytic activity/Vol] 120 U/L 45-117 [facility] Work Phone: ALT [Catalytic activity/Vol] 27 U/L 13-56 [facility] Work Phone: [phone] CO2 [Moles/Vol] 25.0 mmol/L 21.0-32.0 [facility] Work Phone: Globulin (S) [Mass/Vol] 3.8 g/dL 2.2-4.2 [facility] Work Phone: Urea nitrogen/Creatinine [Mass ratio] 18.0 mg/mg 10-20 [facility] Work Phone: Laboratory - Hematology and Cell countson 01-30-2022 Erythrocyte distribution width (RBC) [Entitic vol] 45.2 fL 35.1-43.9 [facility] Work Phone: [phone] Erythrocyte distribution width (RBC) [Ratio] 14.0 % 11.6-14.6 [facility] Work Phone: [phone] Immature granulocytes/100 WBC (Bld) 0.500 % 0.0-0.9 [facility] Work Phone: [phone] Comment on above: IG% - Immature Granu locytes (promyelocytes, myelocytes and metamyelocytes) > 1% indicates that a LEFT SHIFT is Present. MCH (RBC) [Entitic mass] 29.5 pg 27.0-32.0 [facility] Work Phone: [phone] Nucleated RBC/100 WBC (Bld) [Ratio] 0 % 0-5 [facility] Work Phone: [phone] MCHC Auto (RBC) [Mass/Vol]on 01-30-2022 MCHC (RBC) [Mass/Vol] 32.8 g/dL 32-36 [facility] Work Phone: [phone] No Panel Informationon 01-30 Estimated GFR (MDRD) Amer 48 mL/min >60 [facility] Work Phone: [phone] Comment on above: GFR Calc Estimated GFR (MDRD) Non-Af Amer 40 mL/min >60 [facility] Work Phone: [phone] Comment on above: Non- GFR Calc Platelets bldon 01-30-2022 Platelets (Bld) [#/Vol] 399 10*3/uL 150-450 [facility] Work Phone: [phone] Serum or plasma albumin sonali urement (mass/volume)on 01-30-2022 Albumin [Mass/Vol] 4.0 g/dL 3.2-5.0 [facility] Work Phone: [phone] Serum or plasma albumin/glob ulin mass ratioon 01-30-2022 Albumin/Globulin [Mass ratio] 1.1 {ratio} 0.9-2.4 [facility] Work Phone: [phone] Serum or plasma calcium sonali urement (mass/volume)on 01-30-2022 Calcium [Mass/Vol] 9.4 mg/dL 8.5-10.1 [facility] Work Phone: Serum or plasma creatinine m easurement (mass/volume)on 01-30-2022 Creatinine [Mass/Vol] 1.39 mg/dL 0.55-1.02 [facility] Work Phone: Comment on above: The validity of the calculated GFR & GFRAA in patients over 70 years has not been determined. Clinical correlation is essential. Serum or plasma urea nitroge n measurement (mass/volume)on 01-30-2022 Urea nitrogen [Mass/Vol] 25 mg/dL 7-18 [facility] Work Phone: Thin prep Papanicolaou smear with manual screeningon 01-30-2022 Thin prep Papanicolaou smear with manual screening 21 U/L 15-37 [facility] Work Phone: Thin prep Papanicolaou smear with manual screening 10 5-15 [facility] Work Phone: Thin prep Papanicolaou smear with manual screeningon 12-28-2021 Thin prep Papanicolaou smear with manual screening 6.2 mg/L NO RANGE EST. [facility] Work Phone: Absolute lymphocyte counton 12-25-2021 Lymphocytes Auto (Unsp spec) [#/Vol] 2.63 10*3/uL 0.83-4.51 [facility] Work Phone: Basophil percentageon 2021 Basophils/100 WBC (Bld) 0.7 % 0-1 [facility] Work Phone: Bilirubin [Mass/Vol] 0.30 mg/dL 0.20-1.00 [facility] Work Phone: Comment on above: For patients on eltr ombopag therapy, use of Dimension [place] TBIL is not recommended. Chloride [Moles/Vol] 106 mmol/L 98-107 [facility] Work Phone: Eosinophils/100 WBC (Bld) 2.5 % 0-5 [facility] Work Phone: Glucose [Mass/Vol] 116 mg/dL 74-106 [facility] Work Phone: Comment on above: Fasting Glucose resu lt from 100 to 125 mg/dL suggests IMPAIRED HOMEOSTASIS per A.D.A. criteria. Neutrophils (Bld) [#/Vol] 2.5 10*3/uL 2.0-7.7 [facility] Work Phone: Neutrophils/100 WBC (Bld) 44.3 % 47-70 [facility] Work Phone: Potassium [Moles/Vol] 3.2 mmol/L 3.5-5.1 [facility] Work Phone: Protein [Mass/Vol] 7.9 g/dL 6.4-8.2 [facility] Work Phone: Sodium [Moles/Vol] 141 mmol/L 136-145 [facility] Work Phone: WBC (Bld) [#/Vol] 5.7 10*3/uL 4.4-11.0 [facility] Work Phone: Blood erythrocytes count (nu mber/volume)on 12-25-2021 RBC (Bld) [#/Vol] 4.42 10*6/uL 4.2-5.4 [facility] Work Phone: Blood hemoglobin measurement (mass/volume)on 12-25-2021 Hemoglobin (Bld) [Mass/Vol] 13.0 g/dL 12.0-15.0 [facility] Work Phone: Blood lymphocytes/100 leukoc yteson 12-25-2021 Lymphocytes/100 WBC (Bld) 46.5 % 19-41 [facility] Work Phone: Blood monocytes/100 leukocyt eson 12-25-2021 Monocytes/100 WBC (Bld) 5.8 % 0-10 [facility] Work Phone: Blood platelet mean volumeon 12-25-2021 Platelet mean volume (Bld) [Entitic vol] 9.8 fL 6.2-12.0 [facility] Work Phone: [phone] Determination of erythrocyte mean corpuscular volume (MCV)on 12-25-2021 MCV (RBC) [Entitic vol] 90.5 fL 81-99 [facility] Work Phone: [phone] Hematocrit Auto (Bld) [Volum e fraction]on 12-25-2021 Hematocrit (Bld) [Volume fraction] 40.0 % 37-47 [facility] Work Phone: [phone] Laboratory - Chemistry and C hemistry - challengeon 12-25-2021 ALP [Catalytic activity/Vol] 134 U/L 45-117 [facility] Work Phone: [phone] ALT [Catalytic activity/Vol] 29 U/L 13-56 [facility] Work Phone: [phone] CO2 [Moles/Vol] 26.0 mmol/L 21.0-32.0 [facility] Work Phone: [phone] Free T4 [Mass/Vol] 1.05 ng/dL 0.76-1.46 [facility] Work Phone: [phone] Globulin (S) [Mass/Vol] 3.9 g/dL 2.2-4.2 [facility] Work Phone: [phone] Urea nitrogen/Creatinine [Mass ratio] 17.9 mg/mg 10-20 [facility] Work Phone: [phone] Laboratory - Hematology and Cell countson 12-25-2021 Erythrocyte distribution width (RBC) [Entitic vol] 46.4 fL 35.1-43.9 [facility] Work Phone: [phone] Erythrocyte distribution width (RBC) [Ratio] 14.1 % 11.6-14.6 [facility] Work Phone: [phone] Immature granulocytes/100 WBC (Bld) 0.200 % 0.0-0.9 [facility] Work Phone: [phone] Comment on above: IG% - Immature Granu locytes (promyelocytes, myelocytes and metamyelocytes) > 1% indicates that a LEFT SHIFT is Present. MCH (RBC) [Entitic mass] 29.4 pg 27.0-32.0 [facility] Work Phone: [phone] Nucleated RBC/100 WBC (Bld) [Ratio] 0 % 0-5 [facility] Work Phone: [phone] MCHC Auto (RBC) [Mass/Vol]on 12-25-2021 MCHC (RBC) [Mass/Vol] 32.5 g/dL 32-36 [facility] Work Phone: No Panel Informationon 12-25 Estimated GFR (MDRD) Amer 66 mL/min >60 [facility] Work Phone: [phone] Comment on above: GFR Calc Estimated GFR (MDRD) Non-Af Amer 55 mL/min >60 [facility] Work Phone: [phone] Comment on above: Non- GFR Calc Free Triiodothyronine (T3) pg/dL 3.2 pg/mL 2.18-3.98 [facility] Work Phone: [phone] Thyroid Stimulating Hormone (TSH) 1.62 uIU/mL 0.358-3.74 [facility] Work Phone: [phone] Vitamin D 25-Hydroxy 95.3 ng/mL [facility] Work Phone: [phone] Comment on above: Vitamin D 25(OH) Sta tus Range Deficiency <20 ng/mL (50nmol/L) Insufficiency 20 - 30 ng/mL (50 - 75 nmol/L) Sufficiency 30 - 100 ng/mL (75 - 250 nmol/L) Toxicity >100 ng/mL (>250 nmol/L) Platelets bldon 12-25-2021 Platelets (Bld) [#/Vol] 374 10*3/uL 150-450 [facility] Work Phone: [phone] Serum or plasma albumin sonali urement (mass/volume)on 12-25-2021 Albumin [Mass/Vol] 4.0 g/dL 3.2-5.0 [facility] Work Phone: [phone] Serum or plasma albumin/glob ulin mass ratioon 12-25-2021 Albumin/Globulin [Mass ratio] 1.0 {ratio} 0.9-2.4 [facility] Work Phone: Serum or plasma calcium sonali urement (mass/volume)on 12-25-2021 Calcium [Mass/Vol] 9.2 mg/dL 8.5-10.1 [facility] Work Phone: Serum or plasma creatinine m easurement (mass/volume)on 12-25-2021 Creatinine [Mass/Vol] 1.06 mg/dL 0.55-1.02 [facility] Work [facility]: Comment on above: The validity of the calculated GFR & GFRAA in patients over 70 years has not been determined. Clinical correlation is essential. Serum or plasma urea nitroge n measurement (mass/volume)on 12-25-2021 Urea nitrogen [Mass/Vol] 19 mg/dL 7-18 [facility] Work Phone: Thin prep Papanicolaou smear with manual screeningon 12-25-2021 Thin prep Papanicolaou smear with manual screening 21 U/L 15-37 [facility] Work Phone: [phone] Thin prep Papanicolaou smear with manual screening 9 5-15 [facility] Work Phone: Whole blood hemoglobin A1c/t otal hemoglobin ratio (mass fraction)on 12-25-2021 HbA1c (Bld) [Mass fraction] 6.1 % 3.8-5.6 [facility] Work Phone: Comment on above: Normal < 5.7 % Predi abetic 5.7 - 6.4 % Diabetic >or= 6.5 % Please note range changes. Absolute lymphocyte counton 10-23-2021 Lymphocytes Auto (Unsp spec) [#/Vol] 3.02 10*3/uL 0.83-4.51 [facility] Work Phone: Basophil percentageon 2021 Basophils/100 WBC (Bld) 0.5 % 0-1 [facility] Work Phone: Bilirubin [Mass/Vol] 0.40 mg/dL 0.20-1.00 [facility] Work Phone: Comment on above: For patients on eltr ombopag therapy, use of Dimension [place] TBIL is not recommended. Chloride [Moles/Vol] 107 mmol/L 98-107 [facility] Work Phone: Eosinophils/100 WBC (Bld) 3.3 % 0-5 [facility] Work Phone: Glucose [Mass/Vol] 117 mg/dL 74-106 [facility] Work Phone: Comment on above: Fasting Glucose resu lt from 100 to 125 mg/dL suggests IMPAIRED HOMEOSTASIS per A.D.A. criteria. Neutrophils (Bld) [#/Vol] 2.4 10*3/uL 2.0-7.7 [facility] Work Phone: Neutrophils/100 WBC (Bld) 39.6 % 47-70 [facility] Work Phone: Potassium [Moles/Vol] 4.0 mmol/L 3.5-5.1 [facility] Work Phone: Protein [Mass/Vol] 7.3 g/dL 6.4-8.2 [facility] Work Phone: Sodium [Moles/Vol] 140 mmol/L 136-145 [facility] Work Phone: WBC (Bld) [#/Vol] 6.1 10*3/uL 4.4-11.0 [facility] Work Phone: Blood erythrocytes count (nu mber/volume)on 10-23-2021 RBC (Bld) [#/Vol] 3.79 10*6/uL 4.2-5.4 [facility] Work Phone: Blood hemoglobin measurement (mass/volume)on 10-23-2021 Hemoglobin (Bld) [Mass/Vol] 11.2 g/dL 12.0-15.0 [facility] Work Phone: Blood lymphocytes/100 leukoc yteson 10-23-2021 Lymphocytes/100 WBC (Bld) 49.8 % 19-41 [facility] Work Phone: Blood monocytes/100 leukocyt eson 10-23-2021 Monocytes/100 WBC (Bld) 6.6 % 0-10 [facility] Work Phone: Blood platelet mean volumeon 10-23-2021 Platelet mean volume (Bld) [Entitic vol] 9.5 fL 6.2-12.0 [facility] Work Phone: Determination of erythrocyte mean corpuscular volume (MCV)on 10-23-2021 MCV (RBC) [Entitic vol] 92.6 fL 81-99 [facility] Work Phone: Hematocrit Auto (Bld) [Volum e fraction]on 10-23-2021 Hematocrit (Bld) [Volume fraction] 35.1 % 37-47 [facility] Work Phone: Laboratory - Chemistry and C hemistry - challengeon 10-23-2021 ALP [Catalytic activity/Vol] 136 U/L 45-117 [facility] Work Phone: ALT [Catalytic activity/Vol] 26 U/L 13-56 [facility] Work Phone: CO2 [Moles/Vol] 30.0 mmol/L 21.0-32.0 [facility] Work Phone: Globulin (S) [Mass/Vol] 3.6 g/dL 2.2-4.2 [facility] Work Phone: Urea nitrogen/Creatinine [Mass ratio] 26.6 mg/mg 10-20 [facility] Work Phone: Laboratory - Hematology and Cell countson 10-23-2021 Erythrocyte distribution width (RBC) [Entitic vol] 48.2 fL 35.1-43.9 [facility] Work Phone: Erythrocyte distribution width (RBC) [Ratio] 14.3 % 11.6-14.6 [facility] Work Phone: Immature granulocytes/100 WBC (Bld) 0.200 % 0.0-0.9 [facility] Work Phone: Comment on above: IG% - Immature Granu locytes (promyelocytes, myelocytes and metamyelocytes) > 1% indicates that a LEFT SHIFT is Present. MCH (RBC) [Entitic mass] 29.6 pg 27.0-32.0 [facility] Work Phone: Nucleated RBC/100 WBC (Bld) [Ratio] 0 % 0-5 [facility] Work Phone: [phone] MCHC Auto (RBC) [Mass/Vol]on 10-23-2021 MCHC (RBC) [Mass/Vol] 31.9 g/dL 32-36 [facility] Work Phone: No Panel Informationon 10-23 Estimated GFR (MDRD) Amer 84 mL/min >60 [facility] Work Phone: [phone] Comment on above: GFR Calc Estimated GFR (MDRD) Non-Af Amer 69 mL/min >60 [facility] Work Phone: [phone] Comment on above: Non- GFR Calc Platelets bldon 10-23-2021 Platelets (Bld) [#/Vol] 357 10*3/uL 150-450 [facility] Work Phone: [phone] Serum or plasma albumin sonali urement (mass/volume)on 10-23-2021 Albumin [Mass/Vol] 3.7 g/dL 3.2-5.0 [facility] Work Phone: [phone] Serum or plasma albumin/glob ulin mass ratioon 10-23-2021 Albumin/Globulin [Mass ratio] 1.0 {ratio} 0.9-2.4 [facility] Work Phone: [phone] Serum or plasma calcium sonali urement (mass/volume)on 10-23-2021 Calcium [Mass/Vol] 8.8 mg/dL 8.5-10.1 [facility] Work Phone: [phone] Serum or plasma creatinine m easurement (mass/volume)on 10-23-2021 Creatinine [Mass/Vol] 0.86 mg/dL 0.55-1.02 [facility] Work Phone: Comment on above: The validity of the calculated GFR & GFRAA in patients over 70 years has not been determined. Clinical correlation is essential. Serum or plasma urea nitroge n measurement (mass/volume)on 10-23-2021 Urea nitrogen [Mass/Vol] 23 mg/dL 7-18 [facility] Work Phone: Thin prep Papanicolaou smear with manual screeningon 10-23-2021 Thin prep Papanicolaou smear with manual screening 18 U/L 15-37 [facility] Work Phone: [phone] Thin prep Papanicolaou smear with manual screening 3 5-15 [facility] Work Phone: [phone] Absolute lymphocyte counton 09-11-2021 Lymphocytes Auto (Unsp spec) [#/Vol] 3.13 10*3/uL 0.83-4.51 [facility] Work Phone: [phone] Albumin Elph [Mass/Vol]on Albumin [Mass/Vol] 3.8 g/dL [facility] Work Phone: [phone] Atypical perinuclear antineu trophil cytoplasmic antibodies measurementon 09-11-2021 Neutrophil cytoplasmic Ab.perinuclear.atypical IF (S) [Titer] <1:20 titer Neg:<1:20 [facility] Work Phone: Comment on above: The atypical pANCA p attern has been observed in asignificant percentage of patients with ulcerative colitis,primary sclerosing cholangitis and autoimmune hepatitis. Basophil percentageon 2021 Basophils/100 WBC (Bld) 0.7 % 0-1 [facility] Work Phone: [phone] Bilirubin [Mass/Vol] 0.50 mg/dL 0.20-1.00 [facility] Work Phone: [phone] Comment on above: For patients on eltr ombopag therapy, use of Dimension [place] TBIL is not recommended. Chloride [Moles/Vol] 103 mmol/L 98-107 [facility] Work Phone: Eosinophils/100 WBC (Bld) 2.7 % 0-5 [facility] Work Phone: Glucose [Mass/Vol] 126 mg/dL 74-106 [facility] Work Phone: Comment on above: Fasting Glucose resu lt greater than or equal to 126 mg/dL suggests DIABETES MELLITUS per A.D.A. criteria. Neutrophils (Bld) [#/Vol] 3.3 10*3/uL 2.0-7.7 [facility] Work Phone: Neutrophils/100 WBC (Bld) 45.4 % 47-70 [facility] Work Phone: Potassium [Moles/Vol] 3.5 mmol/L 3.5-5.1 [facility] Work Phone: Protein [Mass/Vol] 8.0 g/dL 6.4-8.2 [facility] Work Phone: Sodium [Moles/Vol] 137 mmol/L 136-145 [facility] Work Phone: WBC (Bld) [#/Vol] 7.3 10*3/uL 4.4-11.0 [facility] Work Phone: Blood erythrocytes count (nu mber/volume)on 09-11-2021 RBC (Bld) [#/Vol] 4.23 10*6/uL 4.2-5.4 [facility] Work Phone: Blood hemoglobin measurement (mass/volume)on 09-11-2021 Hemoglobin (Bld) [Mass/Vol] 12.3 g/dL 12.0-15.0 [facility] Work Phone: Blood lymphocytes/100 leukoc yteson 09-11-2021 Lymphocytes/100 WBC (Bld) 43.0 % 19-41 [facility] Work Phone: Blood monocytes/100 leukocyt eson 09-11-2021 Monocytes/100 WBC (Bld) 7.8 % 0-10 [facility] Work Phone: Blood platelet mean volumeon 09-11-2021 Platelet mean volume (Bld) [Entitic vol] 10.0 fL 6.2-12.0 [facility] Work Phone: [phone] Determination of erythrocyte mean corpuscular volume (MCV)on 09-11-2021 MCV (RBC) [Entitic vol] 90.3 fL 81-99 [facility] Work Phone: [phone] Erythrocyte sedimentation ra cheryl 09-11-2021 ESR (Bld) [Velocity] 38 mm/h 0-30 [facility] Work Phone: [phone] Hematocrit Auto (Bld) [Volum e fraction]on 09-11-2021 Hematocrit (Bld) [Volume fraction] 38.2 % 37-47 [facility] Work Phone: [phone] Interpretation of serum or p lasma protein pattern by immunofixation (narrative resulton 09-11-2021 Protein Fractions Immunofixation [place] [Interp] 0.3 g/dL Not Observed [facility] Work Phone: [phone] Laboratory - Chemistry and C hemistry - challengeon 09-11-2021 ALP [Catalytic activity/Vol] 150 U/L 45-117 [facility] Work Phone: [phone] ALT [Catalytic activity/Vol] 38 U/L 13-56 [facility] Work Phone: [phone] CO2 [Moles/Vol] 26.0 mmol/L 21.0-32.0 [facility] Work Phone: [phone] Globulin (S) [Mass/Vol] 4.1 g/dL 2.2-4.2 [facility] Work Phone: [phone] Urea nitrogen/Creatinine [Mass ratio] 32.7 mg/mg 10-20 [facility] Work Phone: [phone] Laboratory - Hematology and Cell countson 09-11-2021 Erythrocyte distribution width (RBC) [Entitic vol] 47.7 fL 35.1-43.9 [facility] Work Phone: [phone] Erythrocyte distribution width (RBC) [Ratio] 14.5 % 11.6-14.6 [facility] Work Phone: Immature granulocytes/100 WBC (Bld) 0.400 % 0.0-0.9 [facility] Work Phone: [phone] Comment on above: IG% - Immature Granu locytes (promyelocytes, myelocytes and metamyelocytes) > 1% indicates that a LEFT SHIFT is Present. MCH (RBC) [Entitic mass] 29.1 pg 27.0-32.0 [facility] Work Phone: Nucleated RBC/100 WBC (Bld) [Ratio] 0 % 0-5 [facility] Work Phone: [phone] MCHC Auto (RBC) [Mass/Vol]on 09-11-2021 MCHC (RBC) [Mass/Vol] 32.2 g/dL 32-36 [facility] Work Phone: No Panel Informationon 09-11 Estimated GFR (MDRD) Amer 85 mL/min >60 [facility] Work Phone: Comment on above: GFR Calc Estimated GFR (MDRD) Non-Af Amer 70 mL/min >60 [facility] Work Phone: Comment on above: Non- GFR Calc Addendum Document Comment [facility] Work Phone: Comment on above: Protein electrophore sis scan will follow via computer,mail, or paper sales representative delivery. Ceruloplasmin 32.7 mg/dL [facility] Work Phone: Endomysial IgA Antibody Negative Negative [facility] Work Phone: [phone] Free Lambda Light Chains, Quant 22.8 mg/L [facility] Work Phone: [phone] Immunoglobulin E 321 IU/mL [facility] Work Phone: Platelets bldon 09-11-2021 Platelets (Bld) [#/Vol] 362 10*3/uL 150-450 [facility] Work Phone: [phone] Serum oonmw-9-ocaagpty measu rement by electrophoresison 09-11-2021 Alpha 1 globulin Elph [Mass/Vol] 0.3 g/dL [facility] Work Phone: [phone] Alpha 1 globulin Elph [Mass/Vol] 0.9 g/dL [facility] Work Phone: [phone] Serum classic neutrophil cyt oplasmic antibody assay (units/volume)on 09-11-2021 Neutrophil cytoplasmic Ab.classic Qn (S) <1:20 titer Neg:<1:20 [facility] Work Phone: [phone] Serum immunoglobulin kappa l ight chains/immunoglobulin lambda light chains mass ratioon 09-11-2021 Immunoglobulin light chains.kappa/Immunoglobul in light chains.lambda (S) [Mass ratio] 0.71 [facility] Work Phone: [phone] Serum mitochondria antibody detectionon 09-11-2021 Mitochondria Ab Ql (S) <20.0 Units [facility] Work Phone: Comment on above: Negative 0.0 - 20.0 Equivocal 20.1 - 24.9 Positive >24.9Mitochondrial (M2) Antibodies are found in 90-96% ofpatients with primary biliary cirrhosis.Performed at: [facility] [address] [id number] Director: Brian Bautista PhD, Phone: [phone] Serum or plasma IgA measurem ent (mass/volume)on 09-11-2021 IgA [Mass/Vol] 447 mg/dL [facility] Work Phone: [phone] Serum or plasma IgG measurem ent (mass/volume)on 09-11-2021 IgG [Mass/Vol] 1000 mg/dL [facility] Work Phone: [phone] Serum or plasma IgM measurem ent (mass/volume)on 09-11-2021 IgM [Mass/Vol] 70 mg/dL [facility] Work Phone: [phone] Comment on above: Performed at: [facility] [address] [id number] Director: Brian Bautista PhD, Phone: [phone] at: [facility] [employer] [id number] Director: Rosalva Ross MD, Phone: [phone] Serum or plasma actin IgG an tibody assay (units/volume)on 09-11-2021 Actin IgG Qn 7 Units [facility] Work Phone: Comment on above: Negative 0 - 19 Weak positive 20 - 30 Moderate to strong positive >30 Actin Antibodies are found in 52-85% of patients with autoimmune hepatitis or chronic active hepatitis and in 22% of patients with primary biliary cirrhosis. Serum or plasma albumin sonali urement (mass/volume)on 09-11-2021 Albumin [Mass/Vol] 3.9 g/dL 3.2-5.0 [facility] Work Phone: Serum or plasma albumin/glob ulin mass ratioon 09-11-2021 Albumin/Globulin [Mass ratio] 1.0 {ratio} 0.9-2.4 [facility] Work Phone: Serum or plasma beta globuli n measurement by electrophoresis (mass/volume)on 09-11-2021 Beta globulin Elph [Mass/Vol] 1.5 g/dL [facility] Work Phone: Serum or plasma calcium sonali urement (mass/volume)on 09-11-2021 Calcium [Mass/Vol] 9.2 mg/dL 8.5-10.1 [facility] Work Phone: Serum or plasma creatinine m easurement (mass/volume)on 09-11-2021 Creatinine [Mass/Vol] 0.86 mg/dL 0.55-1.02 [facility] Work Phone: Comment on above: The validity of the calculated GFR & GFRAA in patients over 70 years has not been determined. Clinical correlation is essential. Serum or plasma gamma globul in measurement by electrophoresis (mass/volume)on 09-11-2021 Gamma globulin Elph [Mass/Vol] 1.0 g/dL [facility] Work Phone: Serum or plasma immunoelectr ophoresis interpretation (nominal result)on 09-11-2021 Interpretation IEP [Interp] Comment [facility] Work Phone: Comment on above: Immunofixation shows IgG monoclonal protein with lambdalight chain specificity.KAPPA APPEARS ASYMMETRICAL Serum or plasma immunoglobul in kappa light chains measurement (mass/volume)on 09-11-2021 Immunoglobulin light chains.kappa [Mass/Vol] 16.3 mg/L [facility] Work Phone: Serum or plasma urea nitroge n measurement (mass/volume)on 09-11-2021 Urea nitrogen [Mass/Vol] 28 mg/dL 7-18 [facility] Work Phone: Serum or plasma uric acid me asurement (mass/volume)on 09-11-2021 Urate [Mass/Vol] 5.1 mg/dL 2.6-6.0 [facility] Work Phone: Comment on above: The drugs N-Acetylcy steine and Metamizole may falsely depress this assay. Serum perinuclear neutrophil cytoplasmic antibody titer by immunofluorescenceon 09-11-2021 Neutrophil cytoplasmic Ab.perinuclear IF (S) [Titer] <1:20 titer Neg:<1:20 [facility] Work Phone: Comment on above: The presence of posi tive fluorescence exhibiting P-ANCA orC-ANCA patterns alone is not specific for the diagnosis ofWegener's Granulomatosis (WG) or microscopic polyangiitis.Decisions about treatment should not be based solely onANCA IFA results. The [employer] ANCA [employer] Consensusrecommends follow up testing of positive sera with both TX-3 and MPO-ANCA enzyme immunoassays. As many as 5% serumsamples are positive only by EIA. Ref. AM J Clin [id number];111:507-513. Serum tissue transglutaminas e IgA antibody assay (units/volume)on 09-11-2021 tTG IgA Qn (S) <2 U/mL [facility] Work Phone: Comment on above: Negative 0 - 3 Weak Positive 4 - 10 Positive >10 Tissue Transglutaminase (tTG) has been identified as the endomysial antigen. Studies have demonstr- ated that endomysial IgA antibodies have over 99% specificity for gluten sensitive enteropathy. Thin prep Papanicolaou smear with manual screeningon 09-11-2021 Thin prep Papanicolaou smear with manual screening 292 U/L 84-246 [facility] Work Phone: Thin prep Papanicolaou smear with manual screening 26 U/L 15-37 [facility] Work Phone: Thin prep Papanicolaou smear with manual screening 8 5-15 [facility] Work Phone: Thin prep Papanicolaou smear with manual screening 1.1 [facility] Work Phone: Thin prep Papanicolaou smear with manual screening 120 ug/dL [facility] Work Phone: Comment on above: Detection Limit = 5 Total protein bloodon 2021 Protein [Mass/Vol] 7.5 g/dL [facility] Work Phone: Culture, urine Bacteria identified Cx Nom (U) Escherichia coli [facility] Work Phone: Vital Signs Date Time Vital Sign Value Performing Clinician Facility 02-11-2025 07:27-0400 Body temperature 98.8 [degF] Dr. Addison Linn MD Work Phone: [facility] 02-11-2025 07:27-0400 Diastolic blood pressure 101 mm[Hg] Dr. Addison Linn MD Work Phone: [facility] 02-11-2025 07:27-0400 Heart rate 92 /min Dr. Addison Linn MD Work Phone: [facility] 02-11-2025 07:27-0400 Respiratory rate 18 /min Dr. Addison Linn MD Work Phone: [facility] 02-11-2025 07:27-0400 SaO2% (BldA) [Mass fraction] 100 % Dr. Addison Linn MD Work Phone: [facility] 02-11-2025 07:27-0400 Systolic blood pressure 137 mm[Hg] Dr. Addison Linn MD Work Phone: [facility] 02-10-2025 14:46-0400 Body height 165.[address] Addison Linn MD Work Phone: [facility] 01-21-2025 14:19-0400 Body height 165.[address] Addison Linn MD Work Phone: [facility] 01-21-2025 14:19-0400 Body mass index (BMI) [Ratio] 36.8 kg/m2 Dr. Addison Linn MD Work Phone: [phone] [place] [address] 01-21-2025 14:19-0400 Body weight 100.[address] Addison Linn MD Work Phone: [phone] [place] [address] 01-18-2025 08:13-0400 Body mass index (BMI) [Ratio] 36.8 kg/m2 Dr. Addison Linn MD Work Phone: [phone] [address] 01-18-2025 08:13-0400 Body temperature 97.3 [degF] Dr. Addison Linn MD Work Phone: [phone])710-345577 [place] [address] 01-18-2025 08:13-0400 Body weight 100.[address] Addison Linn MD Work Phone: [phone])245-260277 [place] [address] 01-18-2025 08:13-0400 Diastolic blood pressure 86 mm[Hg] Dr. Addison Linn MD Work Phone: [facility] 01-18-2025 08:13-0400 Heart rate 90 /min Dr. Addison Linn MD Work Phone: [phone])978-164198 [address] 01-18-2025 08:13-0400 Respiratory rate 20 /min Dr. Addison Linn MD Work Phone: [phone] [address] 01-18-2025 08:13-0400 SaO2% (BldA) [Mass fraction] 98 % Dr. Addison Linn MD Work Phone: [facility] 01-18-2025 08:13-0400 Systolic blood pressure 129 mm[Hg] Dr. Addison Linn MD Work Phone: [facility] 01-06-2025 15:19-0400 Body height 165.[address] Gamaliel Whitehead MD Work Phone: [facility] 01-06-2025 15:15-0400 Body mass index (BMI) [Ratio] 38.1 kg/m2 Dr. Gamlaiel Whitehead MD Work Phone: [facility] 01-06-2025 15:15-0400 Body temperature 98.1 [degF] Dr. Gamaliel Whitehead MD Work Phone: [phone])734-118316 [place] [address] 01-06-2025 15:15-0400 Body weight 103.[address] Gamaliel Whitehead MD Work Phone: [phone])390-518516 [place] [address] 01-06-2025 15:15-0400 Diastolic blood pressure 74 mm[Hg] Dr. Gamaliel Whitehead MD Work Phone: 4(683)957-413716 [place] [address] 01-06-2025 15:15-0400 Heart rate 97 /min Dr. Gamaliel Whitehead MD Work Phone: 4(347)793-862216 [place] [address] 01-06-2025 15:15-0400 Respiratory rate 18 /min Dr. Gamaliel Whitehead MD Work Phone: [phone])393-864316 [place] [address] 01-06-2025 15:15-0400 SaO2% (BldA) [Mass fraction] 97 % Dr. Gamaliel Whitehead MD Work Phone: [phone])[phone] [place] [address] 01-06-2025 15:15-0400 Systolic blood pressure 138 mm[Hg] Dr. Gamaliel Whitehead MD Work Phone: 8([phone])011-454747 [place] [address] 12-22-2024 15:40-0400 Body height 165.[address] Gamaliel Whitehead MD Work Phone: 8(951)523-736916 [place] [address] 12-22-2024 15:40-0400 Body mass index (BMI) [Ratio] 37.1 kg/m2 Dr. Gamaliel Whitehead MD Work Phone: 2(997)287-942216 [place] [address] 12-22-2024 15:40-0400 Body weight 101.[address] Gamaliel Whitehead MD Work Phone: 8(654)213-312816 [place] [address] 12-10-2024 05:51-0400 Diastolic blood pressure 90 mm[Hg] Dr. Gamaliel Whitehead MD Work Phone: [facility] 12-10-2024 05:51-0400 Heart rate 91 /min Dr. Gamaliel Whitehead MD Work Phone: [facility] 12-10-2024 05:51-0400 Respiratory rate 18 /min Dr. Gamaliel Whitehead MD Work Phone: [facility] 12-10-2024 05:51-0400 SaO2% (BldA) [Mass fraction] 98 % Dr. Gamaliel Whitehead MD Work Phone: [facility] 12-10-2024 05:51-0400 Systolic blood pressure 147 mm[Hg] Dr. Gamaliel Whitehead MD Work Phone: [facility] 12-10-2024 05:50-0400 Body temperature 97.9 [degF] Dr. Gamaliel Whitehead MD Work Phone: [facility] 12-09-2024 18:04-0400 Body height 165.[address] Gamaliel Whitehead MD Work Phone: [facility] 12-09-2024 18:04-0400 Body mass index (BMI) [Ratio] 39.6 kg/m2 Dr. Gamaliel Whitehead MD Work Phone: [facility] 12-09-2024 18:04-0400 Body weight 108.[address] Gamaliel Whitehead MD Work Phone: [facility] 10-21-2024 13:27-0400 Body height 165.[address] Lisa Barraza DO Work Phone: [facility] 10-21-2024 13:27-0400 Body mass index (BMI) [Ratio] 38.6 kg/m2 Dr. Lisa Barraza DO Work Phone: [facility] 10-21-2024 13:27-0400 Body weight 105.[address] Lisa Barraza DO Work Phone: [facility] 08-12-2024 12:13-0500 Body temperature 98.1 [degF] Dr. Lisa Barraza DO Work Phone: [facility] 08-12-2024 12:13-0500 Diastolic blood pressure 65 mm[Hg] Dr. Lisa Barraza DO Work Phone: [facility] 08-12-2024 12:13-0500 Heart rate 99 /min Dr. Lisa Barraza DO Work Phone: 7([phone])119-467928 [place] [address] 08-12-2024 12:13-0500 Respiratory rate 16 /min Dr. Lisa Barraza DO Work Phone: 4(396)656-596728 [place] [address] 08-12-2024 12:13-0500 SaO2% (BldA) [Mass fraction] 95 % Dr. Lisa Barraza DO Work Phone: [facility] 08-12-2024 12:13-0500 Systolic blood pressure 116 mm[Hg] Dr. Lisa Barraza DO Work Phone: [phone])[phone] [place] [address] 08-12-2024 05:33-0500 Body mass index (BMI) [Ratio] 39 kg/m2 Dr. Lisa Barraza DO Work Phone: 4(682)717-203728 [place] [address] 08-12-2024 05:33-0500 Body weight 106.[address] Lisa Barraza DO Work Phone: [facility] 08-09-2024 08:38-0500 Inhaled oxygen flow rate 2 L/min Dr. Lisa Barraza DO Work Phone: [facility] 03-02-2024 15:08-0400 Body height 166.4 cm Roger Bustamante MD Work Phone: [facility] Comment on above: per chart 03-02-2024 15:08-0400 Body mass index (BMI) [Ratio] 38.35 kg/m2 Roger Bustamante MD Work Phone: [facility] 03-02-2024 15:08-0400 Body temperature 97.9 [degF] Roger Bustamante MD Work Phone: [facility] 03-02-2024 15:08-0400 Body weight 106.14 kg Roger Bustamante MD Work Phone: [facility] 03-02-2024 15:08-0400 Diastolic blood pressure 83 mm[Hg] Roger Bustamante MD Work Phone: [facility] 03-02-2024 15:08-0400 Heart rate 89 /min Roger Bustamante MD Work Phone: [facility] 03-02-2024 15:08-0400 Systolic blood pressure 167 mm[Hg] Roger Bustamante MD Work Phone: [facility] 02-03-2024 13:02-0400 Body height 166.4 cm Roger Bustamante MD Work Phone: [facility] 02-03-2024 13:02-0400 Body mass index (BMI) [Ratio] 39 kg/m2 Roger Bustamante MD Work Phone: [facility] 02-03-2024 13:02-0400 Body temperature 98.2 [degF] Roger Bustamante MD Work Phone: [facility] 02-03-2024 13:02-0400 Body weight 107.96 kg Roger Bustamante MD Work Phone: [facility] 02-03-2024 13:02-0400 Diastolic blood pressure 62 mm[Hg] Roger Bustamante MD Work Phone: [facility] 02-03-2024 13:02-0400 Heart rate 94 /min Roger Bustamante MD Work Phone: [facility] 02-03-2024 13:02-0400 Systolic blood pressure 136 mm[Hg] Roger Bustamante MD Work Phone: [facility] 01-21-2024 10:51-0400 Body mass index (BMI) [Ratio] 37.76 kg/m2 Angélica Ingram MD Work Phone: [facility] 01-21-2024 10:51-0400 Body weight 104.51 kg Angélica Ingram MD Work Phone: [facility] 01-21-2024 10:51-0400 Diastolic blood pressure 62 mm[Hg] Angélica Ingram MD Work Phone: [facility] 01-21-2024 10:51-0400 Heart rate 100 /min Angélica Ingram MD Work Phone: [facility] 01-21-2024 10:51-0400 SaO2% (BldA) [Mass fraction] 97 % Angélica Ingram MD Work Phone: [facility] 01-21-2024 10:51-0400 Systolic blood pressure 127 mm[Hg] Angélica Ingram MD Work Phone: [facility] 11-27-2023 15:00-0400 Body temperature 98.6 [degF] Dr. Ronnie Hull Work Phone: [facility] 11-27-2023 15:00-0400 Diastolic blood pressure 81 mm[Hg] Dr. Ronnie Hull Work Phone: [facility] 11-27-2023 15:00-0400 Heart rate 78 /min Dr. Ronnie Hull Work Phone: [facility] 11-27-2023 15:00-0400 Respiratory rate 16 /min Dr. Ronnie Hull Work Phone: [facility] 11-27-2023 15:00-0400 SaO2% (BldA) [Mass fraction] 98 % Dr. Ronnie Hull Work Phone: [facility] 11-27-2023 15:00-0400 Systolic blood pressure 132 mm[Hg] Dr. Ronnie Hull Work Phone: [facility] 11-27-2023 11:19-0400 Body height 165.[address] Ronnie Hull Work Phone: [facility] 11-25-2023 16:08-0400 Body mass index (BMI) [Ratio] 37 kg/m2 Dr. Ronnie Hull Work Phone: [facility] 11-25-2023 16:08-0400 Body temperature 98.4 [degF] Dr. Ronnie Hull Work Phone: [facility] 11-25-2023 16:08-0400 Body weight 101.[address] Ronnie Hull Work Phone: [facility] 11-25-2023 16:08-0400 Heart rate 94 /min Dr. Ronnie Hull Work Phone: [facility] 11-25-2023 16:08-0400 Respiratory rate 16 /min Dr. Ronnie Hull Work Phone: [facility] 11-25-2023 16:08-0400 SaO2% (BldA) [Mass fraction] 98 % Dr. Ronnie Hull Work Phone: [facility] 11-20-2023 14:37-0400 Body mass index (BMI) [Ratio] 37.4 kg/m2 Dr. Ronnie Hull Work Phone: [facility] 11-20-2023 14:37-0400 Body temperature 98.2 [degF] Dr. Ronnie Hull Work Phone: [facility] 11-20-2023 14:37-0400 Body weight 102.[address] Ronnie Hull Work Phone: [facility] 11-20-2023 14:37-0400 Diastolic blood pressure 68 mm[Hg] Dr. Ronnie Hull Work Phone: [facility] 11-20-2023 14:37-0400 Heart rate 93 /min Dr. Ronnie Hull Work Phone: [facility] 11-20-2023 14:37-0400 Respiratory rate 18 /min Dr. Ronnie Hull Work Phone: [facility] 11-20-2023 14:37-0400 SaO2% (BldA) [Mass fraction] 96 % Dr. Ronnie Hull Work Phone: [facility] 11-20-2023 14:37-0400 Systolic blood pressure 116 mm[Hg] Dr. Ronnie Hull Work Phone: [facility] 09-24-2023 09:41-0500 Body height 166.4 cm Angélica Ingram MD Work Phone: [facility] 09-24-2023 09:41-0500 Body mass index (BMI) [Ratio] 36.97 kg/m2 Angélica Ingram MD Work Phone: [facility] 09-24-2023 09:41-0500 Body weight 102.33 kg Angélica Ingram MD Work Phone: [facility] 09-24-2023 09:41-0500 Diastolic blood pressure 60 mm[Hg] Angélica Ingram MD Work Phone: [facility] 09-24-2023 09:41-0500 Heart rate 95 /min Angélica Ingram MD Work Phone: [facility] 09-24-2023 09:41-0500 SaO2% (BldA) [Mass fraction] 95 % Angélica Ingram MD Work Phone: [facility] 09-24-2023 09:41-0500 Systolic blood pressure 120 mm[Hg] Angélica Ingram MD Work Phone: [facility] 09-10-2023 14:13-0500 Body height 165.[address] Ronnie Hull Work Phone: [facility] 09-10-2023 14:13-0500 Body mass index (BMI) [Ratio] 37.4 kg/m2 Dr. Ronnie Hull Work Phone: [facility] 09-10-2023 14:13-0500 Body temperature 97.2 [degF] Dr. Ronnie Hull Work Phone: [facility] 09-10-2023 14:13-0500 Body weight 102.[address] Ronnie Hull Work Phone: [facility] 09-10-2023 14:13-0500 Diastolic blood pressure 72 mm[Hg] Dr. Ronnie Hull Work Phone: [facility] 09-10-2023 14:13-0500 Heart rate 103 /min Dr. Ronnie Hull Work Phone: [facility] 09-10-2023 14:13-0500 Respiratory rate 14 /min Dr. Ronnie Hull Work Phone: [facility] 09-10-2023 14:13-0500 SaO2% (BldA) [Mass fraction] 93 % Dr. Ronnie Hull Work Phone: [facility] 09-10-2023 14:13-0500 Systolic blood pressure 114 mm[Hg] Dr. Ronnie Hull Work Phone: [facility] 07-22-2023 05:46-0500 Body height 165.[address] Ronnie Hull Work Phone: [facility] 07-22-2023 05:46-0500 Body mass index (BMI) [Ratio] 38.5 kg/m2 Dr. Ronnie Hull Work Phone: [facility] 07-22-2023 05:46-0500 Body temperature 97.1 [degF] Dr. Ronnie Hull Work Phone: [facility] 07-22-2023 05:46-0500 Body weight 104.[address] Ronnie Hull Work Phone: [facility] 07-22-2023 05:46-0500 Diastolic blood pressure 80 mm[Hg] Dr. Ronnie Hull Work Phone: [facility] 07-22-2023 05:46-0500 Heart rate 88 /min Dr. Ronnie Hull Work Phone: [facility] 07-22-2023 05:46-0500 Respiratory rate 18 /min Dr. Ronnie Hull Work Phone: [facility] 07-22-2023 05:46-0500 SaO2% (BldA) [Mass fraction] 94 % Dr. Ronnie Hull Work Phone: [facility] 07-22-2023 05:46-0500 Systolic blood pressure 133 mm[Hg] Dr. Ronnie Hull Work Phone: [facility] 06-09-2023 13:41-0400 Body height 165.[address] Ronnie Hull Work Phone: [facility] 06-09-2023 13:41-0400 Body mass index (BMI) [Ratio] 40.4 kg/m2 Dr. Ronnie Hull Work Phone: [facility] 06-09-2023 13:41-0400 Body temperature 97.8 [degF] Dr. Ronnie Hull Work Phone: [facility] 06-09-2023 13:41-0400 Body weight 110.[address] Ronnie Hull Work Phone: [facility] 10-30-2023 13:41-0400 Diastolic blood pressure 68 mm[Hg] Dr. Ronnie Hull Work Phone: [facility] 06-09-2023 13:41-0400 Heart rate 87 /min Dr. Ronnie Hull Work Phone: [facility] 06-09-2023 13:41-0400 SaO2% (BldA) [Mass fraction] 98 % Dr. Ronnie Hull Work Phone: [facility] 06-09-2023 13:41-0400 Systolic blood pressure 137 mm[Hg] Dr. Ronnie Hull Work Phone: [facility] 03-05-2023 13:56-0400 Body height 165.[address] Ronnie Hull Work Phone: [facility] 03-05-2023 13:56-0400 Body mass index (BMI) [Ratio] 39.1 kg/m2 Dr. Ronnie Hull Work Phone: [facility] 03-05-2023 13:56-0400 Body temperature 98.8 [degF] Dr. Ronnie Hull Work Phone: [facility] 03-05-2023 13:56-0400 Body weight 106.[address] Ronnie Hull Work Phone: [facility] 03-05-2023 13:56-0400 Diastolic blood pressure 86 mm[Hg] Dr. Ronnie Hull Work Phone: [facility] 03-05-2023 13:56-0400 Heart rate 88 /min Dr. Ronnie Hull Work Phone: [facility] 03-05-2023 13:56-0400 Respiratory rate 16 /min Dr. Ronnie Hull Work Phone: [facility] 03-05-2023 13:56-0400 SaO2% (BldA) [Mass fraction] 94 % Dr. Ronnie Hull Work Phone: [facility] 03-05-2023 13:56-0400 Systolic blood pressure 128 mm[Hg] Dr. Ronnie Hull Work Phone: [facility] 02-10-2023 15:23-0400 Body mass index (BMI) [Ratio] 39.9 kg/m2 Dr. Ronnie Hull Work Phone: [facility] 02-10-2023 15:23-0400 Body temperature 98.2 [degF] Dr. Ronnie Hull Work Phone: [facility] 02-10-2023 15:23-0400 Body weight 108.[address] Ronnie Hull Work Phone: [facility] 02-10-2023 15:23-0400 Diastolic blood pressure 60 mm[Hg] Dr. Ronnie Hull Work Phone: [facility] 02-10-2023 15:23-0400 Heart rate 92 /min Dr. Ronnie Hull Work Phone: [facility] 02-10-2023 15:23-0400 Respiratory rate 16 /min Dr. Ronnie Hull Work Phone: [facility] 02-10-2023 15:23-0400 SaO2% (BldA) [Mass fraction] 97 % Dr. Ronnie Hull Work Phone: [facility] 02-10-2023 15:23-0400 Systolic blood pressure 108 mm[Hg] Dr. Ronnie Hull Work Phone: [facility] 01-27-2023 08:00-0400 Body mass index (BMI) [Ratio] 39.2 kg/m2 Dr. Ronnie Hull Work Phone: [facility] 01-27-2023 08:00-0400 Body temperature 97.7 [degF] Dr. Ronnie Hull Work Phone: [facility] 01-27-2023 08:00-0400 Body weight 108.[address] Ronnie Hull Work Phone: [facility] 01-27-2023 08:00-0400 Diastolic blood pressure 80 mm[Hg] Dr. Ronnie Hull Work Phone: [facility] 01-27-2023 08:00-0400 Heart rate 90 /min Dr. Ronnie Hull Work Phone: [facility] 01-27-2023 08:00-0400 Respiratory rate 18 /min Dr. Ronnie Hull Work Phone: [facility] 01-27-2023 08:00-0400 SaO2% (BldA) [Mass fraction] 94 % Dr. Ronnie Hull Work Phone: [facility] 01-27-2023 08:00-0400 Systolic blood pressure 134 mm[Hg] Dr. Ronnie Hull Work Phone: [facility] 01-02-2023 09:08-0400 Body height 166.[address] Ronnie Hull Work Phone: [facility] 01-02-2023 09:08-0400 Body weight 105.[address] Ronnie Hull Work Phone: [facility] 01-02-2023 09:08-0400 Heart rate 91 /min Dr. Ronnie Hull Work Phone: [facility] 01-02-2023 09:08-0400 SaO2% (BldA) [Mass fraction] 97 % Dr. Ronnie Hull Work Phone: [facility] 11-21-2022 11:41-0400 Body height 165.[address] Ronnie Hull Work Phone: [facility] 11-21-2022 11:41-0400 Body temperature 96 [degF] Dr. Ronnie Hull Work Phone: [facility] 11-21-2022 11:41-0400 Diastolic blood pressure 74 mm[Hg] Dr. Ronnie Hull Work Phone: [facility] 11-21-2022 11:41-0400 Heart rate 84 /min Dr. Ronnie Hull Work Phone: [facility] 11-21-2022 11:41-0400 Respiratory rate 18 /min Dr. Ronnie Hull Work Phone: [facility] 11-21-2022 11:41-0400 SaO2% (BldA) [Mass fraction] 99 % Dr. Ronnie Hull Work Phone: [facility] 11-21-2022 11:41-0400 Systolic blood pressure 138 mm[Hg] Dr. Ronnie Hull Work Phone: [facility] 11-21-2022 11:33-0400 Body mass index (BMI) [Ratio] 39 kg/m2 Dr. Ronnie Hull Work Phone: [facility] 11-21-2022 11:33-0400 Body temperature 98.2 [degF] Dr. Ronnie Hull Work Phone: [facility] 11-21-2022 11:33-0400 Body weight 106.[address] Ronnie Hull Work Phone: [facility] 11-21-2022 11:33-0400 Diastolic blood pressure 84 mm[Hg] Dr. Ronnie Hull Work Phone: [facility] 11-21-2022 11:33-0400 Heart rate 95 /min Dr. Ronnie Hull Work Phone: [facility] 11-21-2022 11:33-0400 Respiratory rate 17 /min Dr. Ronnie Hull Work Phone: [facility] 11-21-2022 11:33-0400 Systolic blood pressure 143 mm[Hg] Dr. Ronnie Hull Work Phone: [facility] 08-19-2022 13:24-0500 Body height 165.[address] Ronnie Hull Work Phone: [facility] 08-19-2022 13:24-0500 Body mass index (BMI) [Ratio] 39.4 kg/m2 Dr. Ronnie Hull Work Phone: [facility] 08-19-2022 13:24-0500 Body temperature 96.8 [degF] Dr. Ronnie Hull Work Phone: [facility] 08-19-2022 13:24-0500 Body weight 107.[address] Ronnie Hull Work Phone: [facility] 08-19-2022 13:24-0500 Diastolic blood pressure 78 mm[Hg] Dr. Ronnie Hull Work Phone: [facility] 08-19-2022 13:24-0500 Heart rate 90 /min Dr. Ronnie Hull Work Phone: [facility] 08-19-2022 13:24-0500 Respiratory rate 16 /min Dr. Ronnie Hull Work Phone: [facility] 08-19-2022 13:24-0500 SaO2% (BldA) [Mass fraction] 99 % Dr. Ronnie Hull Work Phone: [facility] 08-19-2022 13:24-0500 Systolic blood pressure 126 mm[Hg] Dr. Ronnie Hull Work Phone: [facility] 07-30-2022 11:31-0500 Body mass index (BMI) [Ratio] 39.4 kg/m2 Dr. Ronnie Hull Work Phone: [facility] 07-30-2022 11:31-0500 Body temperature 97.6 [degF] Dr. Ronnie Hull Work Phone: [facility] 07-30-2022 11:31-0500 Body weight 107.[address] Ronnie Hull Work Phone: [facility] 07-30-2022 11:31-0500 Diastolic blood pressure 85 mm[Hg] Dr. Ronnie Hull Work Phone: [facility] 07-30-2022 11:31-0500 Heart rate 95 /min Dr. Ronnie Hull Work Phone: [facility] 07-30-2022 11:31-0500 Respiratory rate 18 /min Dr. Ronnie Hull Work Phone: [facility] 07-30-2022 11:31-0500 SaO2% (BldA) [Mass fraction] 93 % Dr. Ronnie Hull Work Phone: [facility] 07-30-2022 11:31-0500 Systolic blood pressure 134 mm[Hg] Dr. Ronnie Hull Work Phone: [facility] 05-01-2022 13:07-0400 Body height 165.[address] Ronnie Hull Work Phone: [facility] Work Phone: 05-01-2022 13:07-0400 Body mass index (BMI) [Ratio] 38.8 kg/m2 Dr. Ronnie Hull Work Phone: [facility] Work Phone: 05-01-2022 13:07-0400 Body temperature 97 [degF] Dr. Ronnie Hull Work Phone: [facility] Work Phone: 05-01-2022 13:07-0400 Body weight 105.[address] Ronnie Hull Work Phone: [facility] Work Phone: 05-01-2022 13:07-0400 Diastolic blood pressure 62 mm[Hg] Dr. Ronnie Hull Work Phone: [facility] Work Phone: 05-01-2022 13:07-0400 Heart rate 92 /min Dr. Ronnie Hull Work Phone: [facility] Work Phone: 05-01-2022 13:07-0400 Respiratory rate 16 /min Dr. Ronnie Hull Work Phone: [facility] Work Phone: 05-01-2022 13:07-0400 SaO2% (BldA) [Mass fraction] 96 % Dr. Ronine Hull Work Phone: [facility] Work Phone: 05-01-2022 13:07-0400 Systolic blood pressure 110 mm[Hg] Dr. Ronnie Hull Work Phone: [facility] Work Phone: 03-27-2022 11:04-0400 Body height 165.[address] Ronnie Hull Work Phone: [facility] Work Phone: 03-27-2022 11:04-0400 Body mass index (BMI) [Ratio] 37.8 kg/m2 Dr. Ronnie Hull Work Phone: [facility] Work Phone: 03-27-2022 11:04-0400 Body weight 102.[address] Ronnie Hull Work Phone: [facility] Work Phone: 03-27-2022 11:04-0400 Diastolic blood pressure 79 mm[Hg] Dr. Ronnie Hull Work Phone: [facility] Work Phone: 03-27-2022 11:04-0400 Heart rate 91 /min Dr. Ronnie Hull Work Phone: [facility] Work Phone: 03-27-2022 11:04-0400 SaO2% (BldA) [Mass fraction] 95 % Dr. Ronnie Hull Work Phone: [facility] Work Phone: 03-27-2022 11:04-0400 Systolic blood pressure 117 mm[Hg] Dr. Ronnie Hull Work Phone: [facility] Work Phone: 03-12-2022 12:30-0400 Body height 165.[address] Ronnie Hull Work Phone: [facility] Work Phone: 03-12-2022 12:30-0400 Body weight 102.[address] Ronnie Hull Work Phone: [facility] Work Phone: 03-12-2022 12:30-0400 Heart rate 88 /min Dr. Ronnie Hull Work Phone: [facility] Work Phone: 03-12-2022 12:30-0400 Inhaled oxygen concentration 21 % Dr. Ronnie Hull Work Phone: [facility] Work Phone: 03-12-2022 12:30-0400 SaO2% (BldA) [Mass fraction] 96 % Dr. Ronnie Hull Work Phone: [facility] Work Phone: 02-19-2022 13:59-0400 Body height 165.[address] Ronnie Hull Work Phone: [facility] Work Phone: 02-19-2022 13:59-0400 Body mass index (BMI) [Ratio] 38 kg/m2 Dr. Ronnie Hull Work Phone: [facility] Work Phone: 02-19-2022 13:59-0400 Body temperature 98.2 [degF] Dr. Ronnie Hull Work Phone: [facility] Work Phone: 02-19-2022 13:59-0400 Body weight 103.[address] Ronnie Hull Work Phone: [facility] Work Phone: 02-19-2022 13:59-0400 Diastolic blood pressure 70 mm[Hg] Dr. Ronnie Hull Work Phone: [facility] Work Phone: 02-19-2022 13:59-0400 Heart rate 92 /min Dr. Ronnie Hull Work Phone: [facility] Work Phone: 02-19-2022 13:59-0400 Respiratory rate 18 /min Dr. Ronnie Hull Work Phone: [facility] Work Phone: 02-19-2022 13:59-0400 SaO2% (BldA) [Mass fraction] 98 % Dr. oRnnie Hull Work Phone: [facility] Work Phone: 02-19-2022 13:59-0400 Systolic blood pressure 120 mm[Hg] Dr. Ronnie Hull Work Phone: [facility] Work Phone: 02-01-2022 22:00-0400 Diastolic blood pressure 65 mm[Hg] Dr. Ronnie Hull Work Phone: [facility] Work Phone: 02-01-2022 22:00-0400 Heart rate 82 /min Dr. Ronnie Hull Work Phone: [facility] Work Phone: 02-01-2022 22:00-0400 Respiratory rate 18 /min Dr. Ronnie Hull Work Phone: [facility] Work Phone: 02-01-2022 22:00-0400 SaO2% (BldA) [Mass fraction] 97 % Dr. Ronnie Hull Work Phone: [facility] Work Phone: 02-01-2022 22:00-0400 Systolic blood pressure 111 mm[Hg] Dr. Ronnie Hull Work Phone: [facility] Work Phone: 02-01-2022 15:22-0400 Body height 165.[address] Ronnie Hull Work Phone: [facility] Work Phone: 02-01-2022 15:22-0400 Body mass index (BMI) [Ratio] 37.8 kg/m2 Dr. Ronnie Hull Work Phone: [facility] Work Phone: 02-01-2022 15:22-0400 Body temperature 97.6 [degF] Dr. Ronnie Hull Work Phone: [facility] Work Phone: 02-01-2022 15:22-0400 Body weight 103.[address] Ronnie Hull Work Phone: [facility] Work Phone: 01-30-2022 13:17-0400 Body mass index (BMI) [Ratio] 36.9 kg/m2 Dr. Ronnie Hull Work Phone: [facility] Work Phone: 01-30-2022 13:17-0400 Body weight 100.[address] Ronnie Hull Work Phone: [facility] Work Phone: 01-30-2022 13:17-0400 Diastolic blood pressure 74 mm[Hg] Dr. Ronnie Hull Work Phone: [facility] Work Phone: 01-30-2022 13:17-0400 Heart rate 96 /min Dr. Ronnie Hull Work Phone: [facility] Work Phone: 01-30-2022 13:17-0400 SaO2% (BldA) [Mass fraction] 93 % Dr. Ronnie Hull Work Phone: [facility] Work Phone: 01-30-2022 13:17-0400 Systolic blood pressure 116 mm[Hg] Dr. Ronnie Hull Work Phone: [facility] Work Phone: 01-23-2022 10:28-0400 Body mass index (BMI) [Ratio] 37.8 kg/m2 Dr. Ronnie Hull Work Phone: [facility] Work Phone: 01-23-2022 10:28-0400 Body temperature 97.8 [degF] Dr. Ronnie Hull Work Phone: [facility] Work Phone: 01-23-2022 10:28-0400 Body weight 103.[address] Ronnie Hull Work Phone: [facility] Work Phone: 01-23-2022 10:28-0400 Diastolic blood pressure 68 mm[Hg] Dr. Ronnie Hull Work Phone: [facility] Work Phone: 01-23-2022 10:28-0400 Heart rate 98 /min Dr. Ronnie Hull Work Phone: [facility] Work Phone: 01-23-2022 10:28-0400 Respiratory rate 18 /min Dr. Ronnie Hull Work Phone: [facility] Work Phone: 01-23-2022 10:28-0400 SaO2% (BldA) [Mass fraction] 97 % Dr. Ronnie Hull Work Phone: [facility] Work Phone: 01-23-2022 10:28-0400 Systolic blood pressure 126 mm[Hg] Dr. Ronnie Hull Work Phone: [facility] Work Phone: 01-01-2022 11:20-0400 Body mass index (BMI) [Ratio] 39.2 kg/m2 Dr. Ronnie Hull Work Phone: [facility] Work Phone: 01-01-2022 11:20-0400 Body temperature 98.7 [degF] Dr. Ronnie Hull Work Phone: [facility] Work Phone: 01-01-2022 11:20-0400 Body weight 107.[address] Ronnie Hull Work Phone: [facility] Work Phone: 01-01-2022 11:20-0400 Diastolic blood pressure 77 mm[Hg] Dr. Ronnie Hull Work Phone: [facility] Work Phone: 01-01-2022 11:20-0400 Heart rate 83 /min Dr. Ronnie Hull Work Phone: [facility] Work Phone: 01-01-2022 11:20-0400 Respiratory rate 17 /min Dr. Ronnie Hull Work Phone: [facility] Work Phone: 01-01-2022 11:20-0400 SaO2% (BldA) [Mass fraction] 98 % Dr. Ronnie Hull Work Phone: [facility] Work Phone: 01-01-2022 11:20-0400 Systolic blood pressure 137 mm[Hg] Dr. Ronnie Hull Work Phone: [facility] Work Phone: 01-01-2022 11:20-0400 Body height 165.[address] Ronnie Hull Work Phone: [facility] Work Phone: 01-01-2022 11:20-0400 Body mass index (BMI) [Ratio] 39.2 kg/m2 Dr. Ronnie Hull Work Phone: [facility] Work Phone: 01-01-2022 11:20-0400 Body temperature 98.7 [degF] Dr. Ronnie Hull Work Phone: [facility] Work Phone: 01-01-2022 11:20-0400 Body weight 107.[address] Ronnie Hull Work Phone: [facility] Work Phone: 01-01-2022 11:20-0400 Diastolic blood pressure 77 mm[Hg] Dr. Ronnie Hull Work Phone: [facility] Work Phone: 01-01-2022 11:20-0400 Heart rate 83 /min Dr. Ronnie Hull Work Phone: [facility] Work Phone: 01-01-2022 11:20-0400 Respiratory rate 17 /min Dr. Ronnie Hull Work Phone: [facility] Work Phone: 01-01-2022 11:20-0400 SaO2% (BldA) [Mass fraction] 98 % Dr. Ronnie Hull Work Phone: [facility] Work Phone: 01-01-2022 11:20-0400 Systolic blood pressure 137 mm[Hg] Dr. Ronnie Hull Work Phone: [facility] Work Phone: 10-24-2021 13:45-0400 Body temperature 96.9 [degF] Dr. Ronnie Hull Work Phone: [facility] Work Phone: 10-24-2021 13:45-0400 Diastolic blood pressure 67 mm[Hg] Dr. Ronnie Hull Work Phone: [facility] Work Phone: 10-24-2021 13:45-0400 Heart rate 80 /min Dr. Ronnie Hull Work Phone: [facility] Work Phone: 10-24-2021 13:45-0400 Respiratory rate 16 /min Dr. Ronnie Hull Work Phone: [facility] Work Phone: 10-24-2021 13:45-0400 SaO2% (BldA) [Mass fraction] 100 % Dr. Ronnie Hull Work Phone: [facility] Work Phone: 10-24-2021 13:45-0400 Systolic blood pressure 122 mm[Hg] Dr. Ronnie Hull Work Phone: [facility] Work Phone: 10-24-2021 11:31-0400 Body height 165.[address] Ronnie Hull Work Phone: [facility] Work Phone: 10-24-2021 11:31-0400 Body mass index (BMI) [Ratio] 42.5 kg/m2 Dr. Ronnie Hull Work Phone: [facility] Work Phone: 10-24-2021 11:31-0400 Body weight [address] Ronnie Hull Work Phone: [facility] Work Phone: 09-24-2021 13:06-0500 Body mass index (BMI) [Ratio] 42 kg/m2 Dr. Ronnie Hull Work Phone: [facility] Work Phone: 09-24-2021 13:06-0500 Body temperature 98.4 [degF] Dr. Ronnie Hull Work Phone: [facility] Work Phone: 09-24-2021 13:06-0500 Body weight 114.[address] Ronnie Hull Work Phone: [facility] Work Phone: 09-24-2021 13:06-0500 Diastolic blood pressure 81 mm[Hg] Dr. Ronnie Hull Work Phone: [facility] Work Phone: 09-24-2021 13:06-0500 Heart rate 98 /min Dr. Ronnie Hull Work Phone: [facility] Work Phone: 09-24-2021 13:06-0500 Respiratory rate 15 /min Dr. Ronnie Hull Work Phone: [facility] Work Phone: 09-24-2021 13:06-0500 SaO2% (BldA) [Mass fraction] 93 % Dr. Ronnie Hull Work Phone: [facility] Work Phone: 09-24-2021 13:06-0500 Systolic blood pressure 133 mm[Hg] Dr. Ronnie Hull Work Phone: [facility] Work Phone: 09-21-2021 12:20-0500 Body temperature 98.4 [degF] Dr. Ronnie Hull Work Phone: [facility] Work Phone: 09-21-2021 12:20-0500 Diastolic blood pressure 74 mm[Hg] Dr. Ronnie Hull Work Phone: [facility] Work Phone: 09-21-2021 12:20-0500 Heart rate 106 /min Dr. Ronnie Hull Work Phone: [facility] Work Phone: 09-21-2021 12:20-0500 Respiratory rate 16 /min Dr. Ronnie Hull Work Phone: [facility] Work Phone: 09-21-2021 12:20-0500 SaO2% (BldA) [Mass fraction] 96 % Dr. Ronnie Hull Work Phone: [facility] Work Phone: 09-21-2021 12:20-0500 Systolic blood pressure 142 mm[Hg] Dr. Ronnie Hull Work Phone: [facility] Work Phone: 09-12-2021 12:25-0500 Body mass index (BMI) [Ratio] 42.5 kg/m2 Dr. Ronnie Hull Work Phone: [facility] Work Phone: 09-12-2021 12:25-0500 Body temperature 97.9 [degF] Dr. Ronnie Hull Work Phone: [facility] Work Phone: 09-12-2021 12:25-0500 Body weight 116.[address] Ronnie Hull Work Phone: [facility] Work Phone: 09-12-2021 12:25-0500 Diastolic blood pressure 80 mm[Hg] Dr. Ronnie Hull Work Phone: [facility] Work Phone: 09-12-2021 12:25-0500 Heart rate 96 /min Dr. Ronnie Hull Work Phone: [facility] Work Phone: 09-12-2021 12:25-0500 Respiratory rate 16 /min Dr. Ronnie Hull Work Phone: [facility] Work Phone: 09-12-2021 12:25-0500 SaO2% (BldA) [Mass fraction] 97 % Dr. Ronnie Hull Work Phone: [facility] Work Phone: 09-12-2021 12:25-0500 Systolic blood pressure 140 mm[Hg] Dr. Ronnie Hull Work Phone: [facility] Work Phone: 09-11-2021 08:12-0500 Body mass index (BMI) [Ratio] 42.3 kg/m2 Dr. Ronnie Hull Work Phone: [facility] Work Phone: 09-11-2021 08:12-0500 Body weight 115.[address] Ronnie Hull Work Phone: [facility] Work Phone: 07-09-2021 09:43-0500 Body mass index (BMI) [Ratio] 40.7 kg/m2 Dr. Ronnie Hull Work Phone: [facility] Work Phone: 07-09-2021 09:43-0500 Body temperature 98.9 [degF] Dr. Ronnie Hull Work Phone: [facility] Work Phone: 07-09-2021 09:43-0500 Body weight 111.[address] Ronnie Hull Work Phone: [facility] Work Phone: 07-09-2021 09:43-0500 Diastolic blood pressure 82 mm[Hg] Dr. Ronnie Hull Work Phone: [facility] Work Phone: 07-09-2021 09:43-0500 Heart rate 84 /min Dr. Ronnie Hlul Work Phone: [facility] Work Phone: 07-09-2021 09:43-0500 Respiratory rate 16 /min Dr. Ronnie Hull Work Phone: [facility] Work Phone: 07-09-2021 09:43-0500 SaO2% (BldA) [Mass fraction] 94 % Dr. Ronnie Hull Work Phone: [facility] Work Phone: 07-09-2021 09:43-0500 Systolic blood pressure 129 mm[Hg] Dr. Ronnie Hull Work Phone: [facility] Work Phone: 09-25-2020 13:31-0500 Body mass index (BMI) [Ratio] 40.8 kg/m2 Dr. Ronnie Hull Work Phone: [facility] 09-25-2020 13:31-0500 Body temperature 99.1 [degF] Dr. Ronnie Hull Work Phone: [facility] 09-25-2020 13:31-0500 Body weight 114.[address] Ronnie Hull Work Phone: [facility] 09-25-2020 13:31-0500 Diastolic blood pressure 78 mm[Hg] Dr. Ronnie Hull Work Phone: [facility] 09-25-2020 13:31-0500 Heart rate 92 /min Dr. Ronnie Hull Work Phone: [facility] 09-25-2020 13:31-0500 Respiratory rate 18 /min Dr. Ronnie Hull Work Phone: [facility] 09-25-2020 13:31-0500 SaO2% (BldA) [Mass fraction] 93 % Dr. Ronnie Hull Work Phone: [facility] 09-25-2020 13:31-0500 Systolic blood pressure 118 mm[Hg] Dr. Ronnie Hull Work Phone: [facility] Encounters Encounter Date Encounter Type Care Provider Facility Start: 08-20-2025 ambulatory [facility] Facility:[facility] Start: 06-10-2025 ambulatory [facility] Start: 05-05-2025 ambulatory [facility] Start: 05-03-2025 ambulatory [facility] Start: 04-25-2025 ambulatory Gamaliel Whitehead Facility:[facility] Start: 04-25-2025 End: 04-25-2025 ambulatory Gamaliel Whitehead Facility:[facility] Start: 04-13-2025 ambulatory Gamaliel Whitehead Facility:[facility] Start: 04-04-2025 End: 04-04-2025 Patient encounter procedure Shiva Lindo DDS Work Phone: Prosthodontics Comment on above: Full islam of crown of tooth needed due to previous large islam procedure (Primary Dx) Start: 03-10-2025 End: 03-10-[address] Gamaliel Whitehead MD Work Phone: -[facility] [place] Start: 03-10-2025 End: 03-10-2025 Dr. Neema Kaba MD -[facility] [place] Work Phone: Start: 03-10-2025 End: 03-10-2025 ambulatory Gamaliel Whitehead Facility:[facility] Start: 02-21-2025 ambulatory Gamaliel Whitehead Facility:[facility] Start: 02-10-2025 End: 02-11-2025 Dr. Addison Linn MD Work Phone: -Emergency Department Work Phone: Start: 02-10-2025 End: 02-11-2025 Emergency department patient visit Dr. Addison Linn MD Work Phone: -Emergency Department Start: 02-09-2025 End: 03-10-2025 Dr. Marycarmen Stevens MD -Laboratory Work Phone: Start: 02-09-2025 End: 03-10-[address] Gamaliel Whitehead MD Work Phone: -Laboratory Start: 02-08-2025 End: 02-08-[address] Addison Linn MD Work Phone: -Sleep Lab Start: 02-08-2025 End: 02-08-2025 RAYNA Dale -Sleep Lab Work Phone: Start: 02-08-2025 Dr. Lata Chappell MD [facility] Work Phone: Start: 02-08-2025 End: 02-08-2025 ambulatory Gamaliel Whitehead Facility:[facility] Start: 01-21-2025 End: 01-21-2025 Kimber Arce [facility] Work Phone: Start: 01-21-2025 End: 01-21-[address] Addison Linn MD Work Phone: [facility] Work Phone: Start: 01-18-2025 End: 01-18-2025 ASSOCIATE SALES REPRESENTATIVE Nell [facility] Work [facility] Start: 01-18-2025 End: 01-18-[address] Addison Linn MD Work Phone: [facility] Work Phone: Start: 01-06-2025 End: 01-06-2025 Dr. Dontrell Torres MD -[facility] Work Phone: Start: 01-06-2025 End: 01-06-[address] Gamaliel Whitehead MD Work Phone: [facility] Work Phone: Start: 12-22-2024 End: 12-22-2024 Nancy Ge [facility] Work Phone: Start: 12-22-2024 End: 12-22-[address] Gamaliel Whitehead MD Work Phone: [facility] Work Phone: Start: 12-22-2024 End: 12-22-2024 ambulatory Gamaliel Whitehead Facility:[facility] Start: 12-09-2024 End: 12-10-2024 Dr. Raghav Ramon MD -Emergency Departm ent Work Phone: Start: 12-09-2024 End: 12-10-2024 Emergency department patient visit Gamaliel Whitehead Facility:[facility] Start: 12-09-2024 ambulatory Gamaliel Whitehead Facility:[facility] Start: 11-23-2024 End: 11-23-[address] Lisa Barraza DO Work Phone: [facility] Work Phone: Start: 11-23-2024 End: 11-23-2024 Dr. Neema Kaba MD -Outpatient Bone Densitometry Work Phone: Start: 11-23-2024 End: 11-23-2024 ambulatory Gamaliel Whitehead Facility:[facility] Start: 11-19-2024 End: 11-19-[address] Lisa Barraza DO Work Phone: [facility] Work Phone: Start: 11-19-2024 End: 11-19-2024 Dr. Marycarmen Stevens MD -Laboratory Work Phone: Start: 11-19-2024 End: 11-19-2024 ambulatory Gamaliel Whitehead Facility:[facility] Start: 10-21-2024 End: 10-21-2024 Vahe Nobles DO [facility] Work Phone: Start: 10-21-2024 End: 10-21-2024 ambulatory Gamaliel Whitehead Facility:[facility] Start: 10-21-2024 ambulatory Gamaliel Whitehead Facility:[facility] Start: 09-16-2024 End: 09-16-2024 Dr. Gamaliel Whitehead MD -Laboratory, [facility] Start: 09-16-2024 End: 09-16-2024 ambulatory Gamaliel Whitehead Facility:[facility] Start: 08-12-2024 Dr. Shlomo Goins MD -[facility] Work Phone: Start: 08-11-2024 Dr. Shlomo Goins MD -[facility] Work Phone: Start: 08-10-2024 Dr. Shlomo Goins MD -[facility] Work Phone: Start: 08-09-2024 Dr. Shlomo Goins MD -[facility] Work Phone: Start: 08-08-2024 Dr. Valeria Smith MD - [facility] Work Phone: Start: 08-07-2024 ambulatory Alexandra Lugo Facili ty:[facility] Start: 08-07-2024 End: 08-12-2024 Evaluation and management of inpatient Alexandra Lugo Facility:[facility] Start: 08-07-2024 End: 08-12-2024 Dr. Shlomo Goins MD -Medical Surgical 3 Work Phone: Start: 07-21-2024 End: 07-21-2024 ambulatory Addison Linn Facility:[facility] Start: 06-12-2024 End: 06-14-2024 ambulatory Chetan Moss Facility:[facility] Start: 06-11-2024 End: 06-11-2024 ambulatory Chetan Coleman Facility:[facility] Start: 05-25-2024 End: 05-25-2024 ambulatory Marycarmen Stevens Facility:[facility] Start: 05-17-2024 End: 05-17-2024 ambulatory Efewongbe Oleghe Facility:[facility] Start: 05-13-2024 End: 05-13-2024 ambulatory Neema Kaba Facility:[facility] Start: 03-02-2024 End: 03-02-2024 Assmt & care planning pt w/cognitive impairment Roger Bustamante MD Work Phone: Neurology [facility] Comment on above: Loss of memory (Prim sarah Dx) Start: 03-02-2024 ambulatory EFEWONGBE B OLEGHE Faci lity:[facility] Start: 02-11-2024 ambulatory EFEWONGBE B OLEGHE Faci lity:[facility] Start: 02-11-2024 End: 02-11-2024 Subsequent hospital visit by physician Roger Bustamante MD Work Phone: Imaging and Mammography [facility] [place] Comment on above: Arrived Start: 02-03-2024 End: 02-03-2024 Assmt & care planning pt w/cognitive impairment Roger Bustamante MD Work Phone: Neurology [facility] Comment on above: Loss of memory (Prim sarah Dx) Start: 02-03-2024 ambulatory EFEWONGBE B OLEGHE Faci lity:[facility] Start: 01-21-2024 End: 01-21-2024 Office outpatient visit 25 minutes Angélica Ingram MD Work Phone: Sleep Medicine [facility] [place] Comment on above: MARCELLA (obstructive sle ep apnea) (Primary Dx); Hypersomnia Start: 01-21-2024 ambulatory RONNIE duff:[facility] Start: 11-27-2023 End: 11-27-2023 Emergency department patient visit Dr. Ronnie Hull Work Phone: [facility]-Emergency Department Work Phone: Start: 11-25-2023 End: 11-25-[address] Ronnie Hull Work Phone: [facility] Work Phone: Start: 11-25-2023 End: 11-25-[address] Ronnie Hull Work Phone: [facility] Work Phone: Start: 11-20-2023 End: 11-20-[address] Ronnie Hull Work Phone: [facility] Work Phone: Start: 11-14-[address] Michael Hull Work Phone: [facility] Medical Oncology Work Phone: Start: 11-04-2023 End: 11-04-[address] Ronnie Hull Work Phone: [facility] Work Phone: Start: 11-04-2023 End: 11-04-[address] Ronnie Hull Work Phone: [facility]-Outpatient Bone Densitometry Work Phone: Start: 11-03-2023 End: 11-03-2023 Patient encounter procedure Xena Linder PhD Work Phone: Neurology [facility] Comment on above: Memory loss (Primary Dx) Start: 11-03-2023 ambulatory XENA LINDER Facility :[facility] Start: 10-20-2023 End: 10-20-2023 Patient encounter procedure Xena Linder PhD Work Phone: Neurology [facility] Comment on above: Memory loss (Primary Dx) Start: 10-20-2023 ambulatory [facility] Facility:[facility] Start: 10-14-2023 End: 10-14-[address] Ronnie Hull Work Phone: [facility] Work Phone: Start: 10-14-2023 End: 10-14-[address] Ronnie Hull Work Phone: [facility]-Laboratory Work Phone: Start: 10-08-2023 Refill Bharati René MATTHEWSN.TOLL REPAIRER CENTRAL OFFICE Work Phone: Neurology Comment on above: Refill Request Start: 09-24-2023 End: 09-24-2023 Office outpatient visit 15 minutes Angélica Ingram MD Work Phone: [facility] Medicine [facility] [place] Comment on above: MARCELLA (obstructive sle ep apnea) (Primary Dx) Start: 09-24-2023 ambulatory [facility] Facility:[facility] Start: 09-10-[address] Ronnie Hull Work Phone: [facility] Start: 09-10-2023 End: 09-10-2023 Encounter for general adult medical examination without abnormal findings Dr. Ronnie Hull Work Phone: [facility] Start: 09-10-2023 End: 09-10-[address] Ronnie Hull Work Phone: [facility] Internal Medicine Work Phone: Start: 09-02-2023 End: 09-02-[address] Ronnie Hull Work Phone: [facility] Work Phone: Start: 09-02-2023 End: 09-02-[address] [facility] Start: 08-26-2023 End: 08-26-[address] Ronnie Hull Work Phone: [facility] Work Phone: Start: 08-26-2023 End: 08-26-[address] Ronnie Hull Work Phone: [facility] Work Phone: Start: 07-22-2023 End: 07-22-[address] Ronnie Hull Work Phone: [facility]-Pulmonary Medicine [facility] Work Phone: Start: 07-09-2023 End: 07-09-[address] Ronnie Hull Work Phone: [facility] Work Phone: Start: 07-09-2023 End: 07-09-[address] Ron[facility] Hull [facility] Start: 06-09-2023 End: 06-09-[address] Ronnie Hull Work Phone: [facility] Internal Medicine Work Phone: Start: 06-03-2023 End: 06-03-[address] Ronnie Hull [facility] Start: 06-03-2023 End: 06-03-[address] Ronnie Hull Work Phone: [facility]enter[facility] Work Phone: Start: 05-28-2023 End: 05-28-2023 ambulatory [facility] PRIMARY [facility]ARE PROVIDER Facility:[facility] Start: 05-16-2023 End: 05-16-[address] Ronnie Hull Work Phone: [facility] Work Phone: Start: 05-16-2023 End: 05-16-[address] Ronnie Hull [facility] Start: 04-16-2023 End: 04-16-[address] Ronnie Hull Work Phone: [facility] Work Phone: Start: 04-16-2023 End: 04-16-[address] Ronnie Hull [facility] [place] Start: 03-05-2023 End: 03-05-[address] Ronnie Hull Work Phone: [facility] Internal Medicine Work Phone: Start: 02-10-2023 End: 02-10-[address] Ronnie Hull Work Phone: [facility] Work Phone: Start: 01-27-2023 End: 01-27-[address] Ronnie Hull Work Phone: [facility]-Pulmonary Medicine [facility] Work Phone: Start: 01-19-2023 End: 01-19-[address] Ronnie Hull Work Phone: [facility] Work Phone: Start: 01-19-2023 End: 01-19-[address] Ronnie Hull Work Phone: [facility]-Laboratory Start: 01-02-2023 Non-patient / Non-visit Dr. Ronnie Hull Work Phone: [facility] Start: 01-02-2023 End: 01-02-[address] Ronnie Hull Work Phone: [facility] Work Phone: Start: 01-02-2023 End: 01-02-[address] Ronnie Hull Work Phone: [facility]-Pulmonary Services/Neurology Start: 12-31-2022 Non-patient / Non-visit Dr. Ronnie Hull Work Phone: [facility] Start: 12-31-2022 End: 12-31-[address] Ronnie Hull Work Phone: [facility] Work Phone: Start: 12-31-2022 End: 12-31-[address] Ronnie Hull Work Phone: [facility]-Pulmonary Services/Neurology Start: 12-16-2022 End: 12-16-[address] Ronnie Hull Work Phone: [facility] Work Phone: Start: 12-16-2022 End: 12-16-[address] Ronnie Hull Work Phone: [facility] Start: 12-05-2022 End: 12-05-[address] Ronnie Hull Work Phone: [facility] Gastroenterology Start: 11-22-2022 End: 11-22-[address] Ronnie Hull Work Phone: [facility] Internal Medicine Start: 11-21-2022 End: 11-21-[address] Ronnie Hull Work Phone: [facility] Start: 11-11-2022 End: 11-11-[address] Ron[facility] Hull [facility] Start: 10-28-2022 End: 10-28-[address] Ronnie Hull [facility] Start: 10-08-2022 Telephone encounter Neurology Provid er Neurology Comment on above: Referral Request Start: 10-07-2022 Telephone encounter Luis Emerson MD Work Phone: [facility] Comment on above: Received Outside Med ical Records (Referral for [facility] from [facility] Pulmonary [facility]) Start: 09-10-2022 End: 09-10-[address] Ronnie Hull Work Phone: [facility] Work Phone: Start: 09-10-2022 End: 09-10-[address] Ronnie Hull Work Phone: [facility]-Outpatient Breast Imaging Start: 08-19-2022 End: 08-19-[address] Ronnie Hull Work Phone: [facility] Internal Medicine Start: 08-06-2022 End: 08-06-[address] Ronnie Hull Work Phone: [facility]-Laboratory Start: 07-30-2022 End: 07-30-[address] Ronnie Hull [facility] Start: 07-03-2022 End: 07-03-[address] Ronnie Hull Work Phone: [facility] Work Phone: Start: 07-03-2022 End: 07-03-[address] Ron[facility] Hull [facility] Start: 06-13-2022 End: 06-13-[address] Ronnei Hull Work Phone: [facility] Work Phone: Start: 06-13-2022 End: 06-13-[address] Ronnie Hull [facility] Start: 06-12-2022 End: 06-12-[address] Ronnie Hull Work Phone: [facility]enter[facility] Start: 05-16-2022 End: 05-16-[address] Ronnie Hull Work Phone: [facility] Work Phone: Start: 05-16-2022 End: 05-16-[address] Ron[facility] Hull [facility] Start: 05-01-2022 End: 05-01-[address] Ronnie Hull Work Phone: [facility] Internal Medicine Start: 04-05-2022 End: 04-05-[address] Ronnie Hull Work Phone: [facility] Work Phone: Start: 04-05-2022 End: 04-05-[address] Ronnie Hull [facility] Start: 04-02-2022 End: 04-02-[address] Ronnie Hull Work Phone: [facility] Work Phone: Start: 04-02-2022 End: 04-02-[address] Ronnie Hull Work Phone: [facility] Start: 03-27-2022 End: 03-27-[address] Ronnie Hull Work Phone: [facility] Start: 03-13-2022 Non-patient / Non-visit Dr. Ronnie Hull Work Phone: [facility] Start: 03-12-2022 End: 03-12-[address] Ronnie Hull [facility] Start: 03-11-2022 Non-patient / Non-visit Dr. Ronnie Hull Work Phone: [facility] Start: 03-11-2022 End: 03-11-[address] Ronnie Hull Work Phone: [facility]-Pulmonary Services/Neurology Start: 03-08-2022 End: 03-08-[address] Ron[facility] Hull [facility] Start: 02-23-2022 End: 02-23-[address] Ron[facility] Hull [facility] Start: 02-19-2022 End: 02-19-[address] Ronnie Hull [facility] [place] Start: 02-19-2022 End: 02-19-[address] Ronnie Hull Work Phone: [facility] Internal Medicine Start: 02-14-2022 End: 02-14-[address] Ronnie Hull [facility] Start: 02-06-2022 End: 02-06-[address] Ron[facility] Hull [facility] Start: 02-01-2022 End: 02-01-2022 Emergency department patient visit Dr. Ronnie Hull Work Phone: [facility]-Emergency Department Start: 01-30-2022 End: 01-30-[address] Ron[facility] Hull [facility] Start: 01-30-2022 End: 01-30-[address] Ronnie Silva Phone: [facility] Gastroenter[facility] Start: 01-23-2022 End: 01-23-[address] Ronnie Hull Work Phone: [facility] Internal Medicine Start: 01-01-2022 End: 01-01-[address] Ronnie Hull [facility] Start: 12-28-2021 End: 12-28-[address] Ronnie Hull [facility] Start: 12-25-2021 End: 12-25-[address] Ronnie Hull Work Phone: [facility]-Laboratory Start: 11-23-2021 End: 11-23-[address] Ronnie Hull Work Phone: [facility] Gastroenter[facility] Start: 10-24-2021 Non-patient / Non-visit Dr. Ronnie Hull Work Phone: [facility] Start: 10-24-2021 End: 10-24-2021 Admission to same day surgery center Dr. Ronnie Hull Work Phone: [facility]-Endoscopy Start: 10-23-2021 End: 10-23-[address] Ronnie Hull Work Phone: [facility]-Laboratory Start: 10-12-2021 End: 10-12-[address] Ronnie Hull Work Phone: [facility]-Laboratory, [place] Start: 10-03-2021 End: 10-03-[address] Ronnie Hull Work Phone: [facility]-Cat [facility] Start: 09-24-2021 End: 09-24-[address] Ronnie Hull Work Phone: [facility] Start: 09-21-2021 End: 09-21-[address] Ronnie Hull Work Phone: [facility] Start: 09-12-2021 End: 09-12-[address] Ronnie Hull Work Phone: [facility] Internal Medicine Start: 09-11-2021 End: 09-11-[address] Ronnie Hull Work Phone: [facility]-Laboratory Start: 09-11-2021 End: 09-11-[address] Ronnie Hull Work Phone: [facility]enter[facility] Start: 07-09-2021 End: 07-09-[address] Ronnie Hull Work Phone: [facility]-Pulmonary Medicine [facility] Procedures Date Procedure Procedure Detail Performing Clinician Start: 04-04-2025 RE-EVALUATION - POST-OPERATIVE OFFICE VISIT Shiva Lindo DDS Work Phone: Start: 04-04-2025 10 PREFAB POST AND CORE IN ADDITION TO CROWN Shiva Lindo DDS Work Phone: Start: 04-04-2025 12 DENTAL IMPLANT Shiva Guicho DDS Work Phone: Start: 04-04-2025 12 ZIRCONIA CROWN Shivarogelio Lindo DDS Work Phone: Start: 04-04-2025 22 I COMPOSITE FILLING Shivarogelio Lindo DD S Work Phone: Start: 04-04-2025 4 PONTIC - PORCELAIN/CERAMIC Shiva Guicho DDS Work Phone: Start: 03-10-[address] Gamaliel Whitehead MD Work Phone: Start: 03-10-2025 Total cholesterol:HDL ratio measurement Dr. Gamaliel Whitehead MD Work Phone: Start: 02-10-2025 Benzodiazepine measurement, urine Dr. Addison Linn MD Work Phone: Start: 02-10-2025 Cocaine measurement, urine Dr. Addison Linn MD Work Phone: Start: 02-10-2025 Methadone measurement, urine Dr. Addison Linn MD Work Phone: Start: 02-10-[address] Addison Linn MD Work Phone: Start: 02-10-[address] Addison Linn MD Work Phone: Start: 02-10-2025 Blood count smear mcrscp w/mnl difrntl wbc count Dr. Addison Lnin MD Work Phone: Start: 02-10-2025 Mean corpuscular hemoglobin concentration determination Dr. Addison Linn MD Work Phone: Start: 02-10-2025 Nucleated red blood cell count procedure Dr. Addison Linn MD Work Phone: Start: 02-10-2025 Platelet mean volume determination Dr. Addison Linn MD Work Phone: Start: 02-09-2025 Blood count smear mcrscp w/mnl difrntl wbc count Dr. Addison Linn MD Work Phone: Start: 02-09-2025 Mean corpuscular hemoglobin concentration determination Dr. Addison Linn MD Work Phone: Start: 02-09-2025 Nucleated red blood cell count procedure Dr. Addison Linn MD Work Phone: Start: 02-09-2025 Platelet mean volume determination Dr. Addison Linn MD Work Phone: Start: 12-22-[address] Gamaliel Whitehead MD Work Phone: Start: 12-22-2024 Vitamin D, 25-hydroxy measurement Dr. Gamaliel Whitehead MD Work Phone: Start: 12-10-2024 Albumin/Globulin ratio Dr. Gamaliel Whitehead MD Work Phone: Start: 12-10-2024 Blood count smear mcrscp w/mnl difrntl wbc count Dr. Gamaliel Whitehead MD Work Phone: Start: 12-10-[address] Gamaliel Whitehead MD Work Phone: Start: 12-10-[address] Gamaliel Whitehead MD Work Phone: Start: 12-10-2024 Mean corpuscular hemoglobin concentration determination Dr. Gamaliel Whitehead MD Work Phone: Start: 12-10-2024 Nucleated red blood cell count procedure Dr. Gamaliel Whitehead MD Work Phone: Start: 12-10-2024 Platelet mean volume determination Dr. Gamaliel Whitehead MD Work Phone: Start: 12-10-[address] Gamaliel Whitehead MD Work Phone: Start: 12-10-2024 Urine lambda light chain measurement Dr. Gamaliel Whitehead MD Work Phone: Start: 12-09-2024 CT of head without contrast Dr. Gamaliel montes MD Work Phone: Start: 12-09-2024 X-ray of chest, PA and lateral views Dr. Gamaliel Whitehead MD Work Phone: Start: 12-09-2024 Benzodiazepine measurement, urine Dr. Gamaliel Whitehead MD Work Phone: Start: 12-09-2024 Cocaine measurement, urine Dr. Gamaliel romano MD Work Phone: Start: 12-09-2024 Methadone measurement, urine Dr. Gamaliel Whitehead MD Work Phone: Start: 12-09-[address] Gamaliel Whitehead MD Work Phone: Start: 12-09-2024 Urine microscopy: red cells Dr. Gamaliel montes MD Work Phone: Start: 12-09-[address] Gamaliel beckford MD Work Phone: Start: 12-09-2024 Urnls dip stick/tablet reagent auto microscopy Dr. Gamaliel Whitehead MD Work Phone: Start: 11-23-2024 Dual energy X-ray absorptiometry Dr. Lisa Barraza DO Work Phone: Start: 11-19-2024 Blood count smear mcrscp w/mnl difrntl wbc count Dr. Gamaliel Whitehead MD Work Phone: Start: 11-19-2024 Mean corpuscular hemoglobin concentration determination Dr. Gamaliel Whitehead MD Work Phone: Start: 11-19-2024 Nucleated red blood cell count procedure Dr. Gamaliel Whitehead MD Work Phone: Start: 11-19-2024 Platelet mean volume determination Dr. Gamaliel Whitehead MD Work Phone: Start: 09-16-[address] Gamaliel Raza Work Phone: Start: 09-16-[address] Gamaliel Whitehead MD Work Phone: Start: 09-16-2024 BUN/Creatinine ratio Dr. Gamaliel Whitehead MD Work Phone: Start: 09-16-2024 Measurement of renal function Dr. Gamaliel Whitehead MD Work Phone: Start: 09-16-[address] Gamaliel Whitehead MD Work Phone: Start: 08-07-2024 Plain x-ray of humerus Dr. Lisa Barraza DO Work Phone: Start: 08-07-2024 Plain X-ray of shoulder Dr. Lisa beckford DO Work Phone: Start: 11-27-2023 CT of chest without contrast Dr. Ronnie Hull Work Phone: Start: 11-27-2023 X-ray of both feet Dr. Ronnie Hull Work Phone: Start: 11-25-2023 Plain x-ray of hand Dr. Ronnie Hull Work Phone: Start: 11-25-2023 Radiologic examination of knee Dr. Ronnie Hull Work Phone: Start: 11-25-2023 X-ray of chest posteroanterior view Dr. Ronnie Hull Work Phone: Start: 11-04-2023 Dual energy X-ray absorptiometry Dr. Ronnie Hull Work Phone: Start: 11-04-[address] Ronnie raymundo Work Phone: Start: 09-24-2023 Follow-up visit Follow-up ANGÉLICA INGRAM Start: 08-26-2023 X-ray of cervical spine Dr. Ronnie barfield Work Phone: Start: 02-10-2023 X-ray of unilateral ribs, two views without x-ray of chest Dr. Ronnie Hull Work Phone: Start: 12-16-2022 Ultrasound elastography of liver Dr. Ronnie Hull Work Phone: Start: 09-10-[address] Ronnie raymundo Work Phone: Start: 04-02-[address] Ronnie Hull Work Phone: Start: 04-02-[address] Ronnie barfield Work Phone: Start: 10-23-2021 End: 10-23-[address] Ronnie Hull Work Phone: Start: 10-12-2021 End: 10-12-2021 Ova [place] parasites identification Dr. Ronnie Hull Work Phone: Start: 10-03-2021 Computed tomography of abdomen and pelvis with contrast Dr. Ronnie Hull Work Phone: Start: 09-21-2021 Plain X-ray of tibia and fibula Dr. Ronnie Hull Work Phone: Start: 09-21-2021 Radiologic examination of knee Dr. Ronnie Hull Work Phone: Start: 05-13-2012 Colonoscopy Cristy Rios Jr. Work Phone: History of cataract extraction History of cataract surgery Dr. Ronnie Hull Work Phone: Laboratory test resu lt abnormal Abnormal laboratory test Dr. Ronnie Hull Work Phone: Ova OR parasites identification Dr. Ronnie Hull Work Phone: Urine culture Dr. Ronnie Hull Work Phone: Viral antigen assay Dr. Werner Hull Work Phone: Plan of Treatment Date Care Activity Detail Author Start: 05-10-2025 End: 05-10-2025 Patient encounter procedure 05/10/2025 4:30 PM EDT Office Visit [facility]rology [facility] [address] [address] Roger Bustamante MD [address] [place] [address] [facility] Start: 04-11-2025 Influenza vaccination INFLUENZA VACC INE (#1) [facility] Start: 02-10-2025 [facility] Start: 02-10-2025 [facility] Start: 02-08-2025 [facility] Start: 01-19-2025 End: 01-19-2025 Patient encounter procedure 01/19/2025 11:30 AM EDT Office Visit [facility] [place] [address] [facility] [address] [place] [address] Angélica Ingram MD [address] [facility] [place] [id number] [facility] [place] Start: 12-10-2024 [facility] Start: 12-09-2024 [facility] Start: 09-09-2024 End: 09-09-2024 Patient encounter procedure 09/09/2024 1:10 PM EST Office Visit Neurology [facility] [address] [place] [address] Roger Bustamante MD [address] [place] [id number] [facility] Start: 08-12-2024 Patient discharge [facility] Start: 08-11-2024 Patient referral to dietitian [facility] Start: 08-09-2024 [facility] Start: 08-09-2024 Application of ice collar, cap or bag [facility] Start: 08-08-2024 Measuring intake and output [facility] Start: 08-08-2024 Referral to service [facility] Start: 08-08-2024 End: 08-08-2024 [facility] Start: 08-08-2024 Notification of physician [facility] Start: 08-08-2024 Care regimes management [facility] Start: 08-08-2024 [facility] Start: 08-08-2024 Application of intermittent pneumatic compression device [facility] Start: 08-08-2024 Following clinical pathway protocol [facility] Start: 08-08-2024 Assessment of risk o f venous thromboembolism [facility] Start: 08-08-2024 Consultation [facility] Start: 08-08-2024 Insertion of cathete r into peripheral vein [facility] Start: 08-08-2024 Providing care accor ding to standard [facility] Start: 08-08-2024 Provision of activit y privileges [facility] Start: 08-08-2024 Referral to occupati onal therapist [facility] Start: 08-08-2024 Referral to service [facility] Start: 08-08-2024 Inhalation therapy procedure [facility] Start: 08-08-2024 Patient referral to dietitian [facility] Start: 08-08-2024 End: 08-08-2024 [facility] Start: 08-07-2024 Admission procedure [facility] Start: 04-11-2024 COVID-19 VACCINE ( season) COVID-19 VACCINE ( season) [facility] Start: 04-11-2024 Influenza vaccination INFLUENZA VACC INE (#1) [facility] Start: 03-02-2024 End: 03-02-2024 Patient encounter procedure 03/02/2024 3:10 PM EDT Office Visit Neurology [facility] [address] [facility] [address] [place] [address] Roger Bustamante MD [address] [place] [address] [facility] Start: 02-11-2024 Subsequent hospital visit by physician 02/11/2024 8:20 PM EDT Hospital Encounter [facility] [place] [address] [place] [address] Roger Bustamante MD [address] [place] [address] [facility] [place] Start: 02-03-2024 End: 02-02-2025 Cyanocobalamin vitamin b-12 VITAMIN B12 Lab Routine Loss of memory Expected: 02/03/2024, Expires: 02/02/2025 [facility] Comment on above: Expected: 02/03/2024 , Expires: 02/02/2025 Start: 02-03-2024 End: 02-02-2025 Folate [Mass/volume] in Serum or Plasma FOLATE, SERUM Lab Routine Loss of memory Expected: 02/03/2024, Expires: 02/02/2025 [facility] Comment on above: Expected: 02/03/2024 , Expires: 02/02/2025 Start: 02-03-2024 End: 02-02-2025 METHYLMALONIC ACID METHYLMALONIC ACID Lab Routine Loss of memory Expected: 02/03/2024, Expires: 02/02/2025 [facility] Comment on above: Expected: 02/03/2024 , Expires: 02/02/2025 Start: 02-03-2024 End: 02-02-2025 MR Brain WO contrast MRI BRAIN WITHOUT CONTRAST Imaging Routine Loss of memory Expected: 02/03/2024, Expires: 02/02/2025 [facility] Comment on above: Expected: 02/03/2024 , Expires: 02/02/2025 Start: 02-03-2024 End: 02-03-2024 Patient encounter procedure 02/03/2024 1:10 PM EDT Office Visit [facility]rology [facility] [address] [place] [address] [place] [address] [place] [address] [place] [address] [facility] Start: 01-21-2024 End: 01-21-2024 Patient encounter procedure 01/21/2024 11:00 AM EDT Office Visit [facility] [place] [address] [facility] [address] [place] [address] Angélica Ingram MD [address] [place] [address] [facility] Start: 11-27-2023 [facility] Start: 11-25-2023 Patient referral [facility] Work Phone: Start: 11-03-2023 End: 11-03-2023 Patient encounter procedure 11/03/2023 1:30 PM EDT Office Visit [facility] [address] [place] [address] Xena Linder, PhD [address] [place] [address] [facility] Start: 10-20-2023 End: 10-20-2023 Patient encounter procedure 10/20/2023 12:30 PM EDT Office Visit [facility] [address] [place] [address] Xena Linder, PhD [address] [place] [address] [facility] Start: 08-11-2023 Advance Directive Discussion Advance Directive Discussion [facility] Start: 08-11-2023 Depression Assessment Depression Ass essment [facility] Start: 04-11-2023 COVID-19 VACCINE ( season) COVID-19 VACCINE ( season) [facility] Start: 04-11-2023 Influenza vaccination Influenza Vacc ine (#1) [facility] Start: 01-27-2023 Patient referral [facility] Work Phone: Start: 08-11-2022 ADVANCE DIRECTIVE DISCUSSION ADVANCE DIRECTIVE DISCUSSION [facility] Start: 08-11-2022 DEPRESSION ASSESSMENT DEPRESSION ASS ESSMENT [facility] Start: 06-13-2022 General foods mix RA ST test [facility] Work Phone: Start: 04-11-2022 Influenza vaccination INFLUENZA (#1) [facility] Start: 02-19-2022 Patient referral [facility] Work Phone: Start: 10-24-2021 Colonoscopy flx dx w/collj spec when pfrmd DIAGNOSTIC COLONOSCOPY [facility] Work Phone: Start: 10-24-2021 Egd transoral biopsy single/multiple EGD BIOPSY SINGLE/MULTIPLE [facility] Work Phone: Start: 10-17-2021 Screening for osteoporosis DEXA SCAN DISCUSSION [facility] Start: 2017 BONE DENSITY BONE DENSITY [facility] Start: 2017 Pneumococcal vaccination PNEUM OCOCCAL VACCINE SERIES (2 of 2 - PCV) [facility] Start: 2017 Pneumococcal Vaccine : 65+ (1 of 1 - PCV) Pneumococcal Vaccine: 65+ (1 of 1 - PCV) [facility] Start: 2017 PNEUMOCOCCAL: 65+ (1 - PCV) PNEUMOCOCCAL: 65+ (1 - PCV) [facility] Start: 2017 Screening for osteoporosis Bone Density Screening [facility] Start: 05-13-2017 Colonoscopy COLONOSCOPY [facility] Start: 05-13-2017 COLORECTAL CANCER SCREENING COLORECTAL CANCER SCREENING [facility] Start: 05-13-2017 Screening for malign ant neoplasm of colon [facility] Start: 05-13-2013 Screening for malign ant neoplasm of colon COLORECTAL CANCER SCREENING DISCUSSION [facility] Start: 2012 RSV Vaccine (1 - 1-d ose 60+ series) RSV Vaccine (1 - 1-dose 60+ series) [facility] Start: 08-11-2009 Tetanus vaccination TETANUS [facility] Start: 01-21-2003 DIABETES SCREEN DIABETES SCREEN [facility] Start: 01-21-2003 Diabetes Screening Diabetes Screenin g [facility] Start: 2002 SHINGRIX VACCINE (1 of 2) HOPKINS GRIX VACCINE (1 of 2) [facility] Start: 2002 Zoster vaccine hzv l catherine for subcutaneous use ZOSTER (SHINGLES) VACCINE (1 of 2) [facility] Start: 1997 COLOGUARD (FIT-DNA) COLOGUARD (FIT-D NA) [facility] Start: [address] COLONOGRAPHY [facility] Start: 1997 FECAL OCCULT BLOOD FECAL OCCULT BLOO D [facility] Start: 1997 Lipid panel Lipid Screening [facility] Start: 1997 LIPID SCREEN LIPID SCREEN [facility] Start: 1997 Screening for malign ant neoplasm of colon [facility] Start: 1997 SIGMOIDOSCOPY SIGMOIDOSCOPY [facility] Start: 1992 Lipid panel LIPID SCREENING [facility] Start: 1992 Mammography MAMMOGRAM [facility] Start: 1992 Screening for malign ant neoplasm of breast [facility] Start: 1973 Screening for malign ant neoplasm of cervix CERVICAL CANCER SCREENING DISCUSSION [facility] Start: 12-05-1971 Third diphtheria, te tanus and acellular pertussis (DTaP) vaccination TDAP (ADULT) [facility] Start: 12-05-1971 Urine microalbumin profile [facility] Start: 1970 HEPATITIS C SCREENING HEPATITIS C [facility] Start: 1970 Hepatitis C screening Hepatitis C [facility] Start: 06-05-1953 COVID-19 VACCINE (#1) COVID-19 VACCI NE (#1) [facility] Start: 1952 Dental Oral Exam Dental Oral Exam [facility] Start: 1952 Dental Prophylaxis Dental Prophylaxi s [facility] Start: 1952 Hepatitis C screening HEPATITI S C VIRUS SCREENING [facility] Start: 1952 Potassium [Moles/vol ume] in Serum or Plasma POTASSIUM [facility] Start: 1952 Screening for osteoporosis DEXA SCAN DISCUSSION [facility] Start: 1952 Thyroid stimulating hormone measurement TSH [facility] Albumin [Moles/volum e] in Serum or Plasma [facility] Aldosterone [Mass/vo lume] in Serum or Plasma [facility] Work Phone: Beef IgE Ab [Units/volume] in Serum [facility] Work Phone: Chocolate IgE Ab [Units/volume] in Serum [facility] Work Phone: [place] IgE Ab [Units/volume] in Serum [facility] Work Phone: Corticotropin [Mass/volume] in Plasma [facility] Work Phone: Cow milk IgE Ab [Units/volume] in Serum [facility] Work Phone: DXA Bone [Mass/Area] Bone density [facility] Electrophoresis: [id number] [facility] Electrophoresis: azam ma globulin [facility] Exercise tolerance test [facility] Work Phone: Exercise tolerance test [facility] Work Phone: Globulin measurement [facility] IgA [Mass/volume] in Serum or Plasma [facility] IgG [Mass/volume] in Serum or Plasma [facility] IgM [Mass/volume] in Serum or Plasma [facility] Measurement of respiratory function [facility] Work Phone: Measurement of respiratory function [facility] MG Breast - bilatera l Screening [facility] Work Phone: MG Breast - bilatera l Screening [facility] MG Breast - bilatera l Screening [facility] End: 02-11-2024 MR Brain WO contrast U [facility] Comment on above: 1 Occurrences starti ng 02/11/2024 until 02/11/2024 Patient Education [facility] Work Phone: Patient referral [facility] Work Phone: Peanut IgE Ab [Units/volume] in Serum [facility] Work Phone: Pork IgE Ab [Units/volume] in Serum [facility] Work Phone: Protein electrophore sis panel - Serum or Plasma [facility] Renin [Enzymatic activity/volume] in Plasma [facility] Work Phone: Serum protein electrophoresis [facility] Soybean IgE Ab [Units/volume] in Serum [facility] Work Phone: Wheat IgE Ab [Units/volume] in Serum [facility] Work Phone: Whole Egg IgE Ab [Units/volume] in Serum [facility] Work Phone: [facility] Immunizations Immunization Date Immunization Notes Care Provider Isis [email or web address] 04-07-2024 influenza virus vaccine, unspecified formulation Shiva Lindo DDS Work Phone: [facility] Work Phone: 06-09-2023 influenza, injectabl e, quadrivalent, preservative free Dr. Ronnie Hull Work Phone: [facility] 06-09-2023 influenza virus vaccine, unspecified formulation Roger Bustamante MD Work Phone: [facility] 06-12-2020 influenza, injectable,quadrivalent , preservative free, pediatric Dr. Ronnie Hull Work Phone: [facility] 06-12-2020 Flucelvax Quad [id number] (PF) (flu vac qs 2020(4 yr up)CD(PF)) 60 mcg ([address] Ronnie Hull Work Phone: [facility] Work Phone: 06-11-[address] Ronnie Hull Work Phone: [facility] 05-18-2019 Fluad 2018- 65yr up(PF)45 mcg(15 mcgx3)/0.5 mL intramuscular syringe (flu vac Dr. Ronnie Hull Work Phone: [facility] Work Phone: 06-01-2018 Fluad 2017- 65yr up(PF)45 mcg(15 mcgx3)/0.5 mL intramuscular syringe (flu vac Dr. Ronnie Hull Work Phone: [facility] Work Phone: 06-01-[address] Ronnie Hull Work Phone: [facility] 05-20-2017 influenza, injectabl e, quadrivalent, preservative free Dr. Ronnie Hull Work Phone: [facility] 05-20-2017 influenza, seasonal, injectable Dr. Ronnie Hull Work Phone: [facility] 06-06-2015 influenza, injectabl e, quadrivalent, preservative free Dr. Ronnie Hull Work Phone: [facility] 06-06-2015 influenza, seasonal, injectable Dr. Ronnie Hull Work Phone: [facility] Payers Date Payer Category Payer Self-pay [id number] 2023 Medicare MEDICARE MEDICAR E A AND B [id number] 2023-Present [address] [place] [address] [id number] 2017 Unknown [id number] 1.13.159.2.7.3.6 [id number] 2017 Medicare [id number] 2015 Unknown [id number] 1952 Unknown [id number] 2.16.840.1.531762.3.579.2.594 1952 Unknown [id number] 2.16.840.1.214337.3.579.2.594 1952 Unknown [id number] 2.16.840.1.496870.3.579.2.594 1952 Unknown [id number] 2..840.1.553939.3.579.2.594 1952 Unknown [id number] 2..840.1.386210.3.579.2.594 1952 Unknown [id number] 2.840.1.589593.3.579.2.594 1952 Unknown [id number] 2..840.1.852605.3.579.2.594 1952 Unknown [id number] 2.840.1.363644.3.579.2.594 Medicare [id number] Unknown [id number] 2.840.1.828692.3.579.2.462 Unknown [id number] 2.840.1.618993.3.579.2.462 Unknown [id number] 2..840.1.495661.3.579.2.462 Unknown [id number] 2..840.1.454184.3.579.2.462 Unknown [id number] 2.840.1.927980.3.579.2.462 Unknown [id number] 2.840.1.517965.3.579.2.462 Unknown [id number] 2.16.840.1.071080.3.579.2.462 Unknown [id number] 2.16.840.1.245716.3.579.2.462 Unknown [id number] 2.16.840.1.295517.3.579.2.462 Unknown [id number] 2.16.840.1.402732.3.579.2.462 Unknown [id number] 2.16.840.1.469230.3.579.2.462 Unknown [id number] 2.16.840.1.749049.3.579.2.462 Unknown [id number] 2.16.840.1.017641.3.579.2.462 Unknown [id number] 2.16.840.1.947258.3.579.2.462 Unknown [id number] 2.16.840.1.401221.3.579.2.462 Unknown [id number] 2.16.840.1.386022.3.579.2.462 Unknown [id number] 2.16.840.1.880619.3.579.2.462 Unknown [id number] 2.16.840.1.850668.3.579.2.462 Unknown [id number] 2.16.840.1.336017.3.579.2.462 Unknown [id number] 2.16.840.1.894964.3.579.2.462 Unknown [id number] 2.16.840.1.090980.3.579.2.462 Unknown [id number] 2.16.840.1.910800.3.579.2.462 Unknown [id number] 2.16.840.1.100000.3.579.2.462 Unknown [id number] 2.16.840.1.363321.3.579.2.462 Unknown [id number] 2.16.840.1.182495.3.579.2.462 Unknown [id number] 2.16.840.1.200886.3.579.2.462 Unknown [id number] 2.16.840.1.639960.3.579.2.462 Unknown [id number] 2.16.840.1.441389.3.579.2.462 Unknown [id number] 2.16.840.1.647772.3.579.2.462 Unknown [id number] 2.16.840.1.520656.3.579.2.462 Unknown [id number] 2.16.840.1.285828.3.579.2.462 Unknown [id number] 2.16.840.1.726082.3.579.2.462 Unknown [id number] 2.16.840.1.581962.3.579.2.462 Unknown [id number] 2.16.840.1.758367.3.579.2.462 Unknown [id number] 2.16.840.1.305285.3.579.2.462 Unknown [id number] 2.16.840.1.702931.3.579.2.462 Unknown [id number] 2.16.840.1.819448.3.579.2.462 Unknown [id number] 2.16.840.1.322770.3.579.2.462 Unknown [id number] 2.16.840.1.762563.3.579.2.462 Unknown [id number] 2.16.840.1.321443.3.579.2.462 Social History Date Type Detail Facility [facility] Work Phone: Start: 10-19-2021 End: 11-27-2023 Tobacco smoking status INIS Unknown if ever smoked [facility] Start: 01-13-2020 None;Rare [facility] Start: 01-13-2020 None [facility] Start: 1950 Sex Assigned At Female W [facility] Start: 05-07-2012 End: 05-26-2023 Tobacco smoking status NHIS Never smoked tobacco [facility] Work Phone: Start: 05-07-2012 End: 05-26-2023 Tobacco use and exposure Smokeless tobacco non-user [facility] Work Phone: Start: 05-14-2012 Alcohol intake Current drinke r of alcohol (finding) [facility] Start: 05-07-2012 Alcohol Comment [facility] Start: 1950 Sex Assigned At Not on file [facility] Start: 11-24-2015 Spouse/ Signif icant Other [facility] Start: 02-09-2016 Non-smoker [facility] Start: 09-24-2023 End: 04-04-2025 Alcoholic beverage intake Lifetime non-drinker (finding) [facility] Start: 09-24-2023 End: 04-04-2025 History of Social function [facility] Start: 09-24-2023 End: 04-04-2025 Tobacco use panel [facility] Start: 01-28-2023 End: 11-24-2024 Sex Female (finding) [facility] Medical Equipment Procedure Code Equipment Code Equipment Origin al Text Equipment Identifier Dates Fusion, joint FDA Start: 06-11-2024 Fusion, joint [id number] FDA Start: 06-11-2024 Fusion, joint FDA Start: 06-11-2024 Fusion, joint FDA Start: 06-11-2024 Fusion, joint FDA Start: 06-11-2024 Fusion, joint FDA Start: 06-11-2024 Fusion, joint FDA Start: 06-11-2024 Fusion, joint [id number] FDA Start: 06-11-2024 Fusion, joint [id number] FDA Start: 06-11-2024 Fusion, joint [id number] FDA Start: 06-11-2024 Fusion, joint FDA Start: 06-11-2024 Fusion, joint FDA Start: 06-11-2024 Fusion, joint FDA Start: 06-11-2024 Fusion, joint FDA Start: 06-11-2024 Fusion, joint FDA Start: 06-11-2024 Fusion, joint FDA Start: 06-11-2024 Fusion, joint FDA Start: 06-11-2024 Fusion, joint FDA Start: 06-11-2024 Fusion, joint FDA Start: 06-11-2024 Fusion, joint FDA Start: 06-11-2024 Fusion, joint FDA Start: 06-11-2024 Fusion, joint FDA Start: 06-11-2024 Fusion, joint FDA Start: 06-11-2024 Fusion, joint FDA Start: 06-11-2024 Fusion, joint FDA Start: 06-11-2024 Fusion, joint FDA Start: 06-11-2024 Fusion, joint FDA Start: 06-11-2024 Fusion, joint FDA Start: 06-11-2024 Fusion, joint FDA Start: 06-11-2024 Fusion, joint FDA Start: 06-11-2024 Fusion, joint FDA Start: 06-11-2024 Fusion, joint FDA Start: 06-11-2024 Fusion, joint FDA Start: 06-11-2024 Fusion, joint FDA Start: 06-11-2024 Fusion, joint FDA Start: 06-11-2024 Fusion, joint FDA Start: 06-11-2024 Fusion, joint FDA Start: 06-11-2024 Fusion, joint FDA Start: 06-11-2024 Fusion, joint FDA Start: 06-11-2024 Fusion, joint FDA Start: 06-11-2024 Fusion, joint FDA Start: 06-11-2024 Fusion, joint FDA Start: 06-11-2024 Fusion, joint FDA Start: 06-11-2024 Fusion, joint FDA Start: 06-11-2024 Fusion, joint FDA Start: 06-11-2024 Fusion, joint FDA Start: 06-11-2024 Fusion, joint FDA Start: 06-11-2024 Fusion, joint FDA Start: 06-11-2024 Fusion, joint FDA Start: 06-11-2024 Fusion, joint FDA Start: 06-11-2024 Fusion, joint FDA Start: 06-11-2024 Fusion, joint FDA Start: 06-11-2024 Fusion, joint FDA Start: 06-11-2024 Fusion, joint FDA Start: 06-11-2024 Fusion, joint FDA Start: 06-11-2024 Fusion, joint FDA Start: 06-11-2024 Fusion, joint FDA Start: 06-11-2024 Fusion, joint FDA Start: 06-11-2024 Fusion, joint FDA Start: 06-11-2024 Fusion, joint FDA Start: 06-11-2024 Fusion, joint FDA Start: 06-11-2024 Fusion, joint FDA Start: 06-11-2024 Fusion, joint FDA Start: 06-11-2024 Fusion, joint FDA Start: 06-11-2024 Fusion, joint FDA Start: 06-11-2024 Fusion, joint FDA Start: 06-11-2024 Fusion, joint FDA Start: 06-11-2024 Fusion, joint FDA Start: 06-11-2024 Fusion, joint FDA Start: 06-11-2024 Fusion, joint FDA Start: 06-11-2024 Goals Date Patient Goal Desired Activity /State Functional Status Date Assessment Result Facility 08-12-2024 Functional status Ambulates [facility] Work Phone: Mental Status Date Assessment Result Facility 12-09-2024 Cognitive function Awake;Alert [facility] Work Phone: 08-12-2024 Cognitive function Voice/Name [facility] Work Phone: 02-01-2022 Cognitive function Level Of Cons ciousness Awake;Alert;Appropriate;Follo ws Commands;Responds to vocal stimuli [facility] Work Phone: 10-24-2021 Cognitive function Voice/Name [facility] Work Phone: Clinical Notes 10-07-2022 to 04-04-2025 Shiva Lindo DDS - 04/04/2025 1:15 PM EDT Note Date & Type Note Facility 04-04-2025 History of Present illness Narrative Patient presents today for impressions, referred from [facility]. Treatment plan proposed in DFP: full coverage crowns for teeth #6, 7, 8, 9, 10, 11, 21, and 28. All teeth presented prepared and teeth #6, 7, 10 and 12 have casted posts. Provisional #7 was on patients hand, as well as Implant FPD #18-20, which was recemented with Olympian. During the removal of the provisionals, build-ups of teeth #8 and 9 came off together with the provisional. Composite resin were add to the teeth to seal the area without the build-ups and the preparation were refined to reposition the margins deeper. Some teeth had the gingival tissue covering the margins, which made the impression challenge. Impression made using PVS heavy and light body, and stock tray with adhesive. After poor the cast and evaluation, it will be decided if a new set of provisional will be necessary. Next: Final Impression + #21 and 28 Procedure Details D0171 - RE-EVALUATION - POST-OPERATIVE OFFICE VISIT documented in this encounter [facility] [employer] Work Phone: 02-10-2025 Discharge summary Note Date/Time February 10, 2025 6:53p [facility] Medical Records Department [address] [place] [address] Emergency Department Summary 02/10/25 MR#: [id number] Acct: [id number] Name: BEBETO DEJESUS Rep #:[id number] : 1950 74 From: Torres Koroma MD PCP: Dr. Gamaliel Whitehead MD Status:REG E R Location: ED HPI HPI - Psych History of Present Illness Chief Complaint: Mental Health Informant: patient Onset/Context/Timing Onset: Today Current Severity: Moderate Maximum Severity: Severe Narrative Narrative: 74-year-old female history of diabetes hypothyroidism. Reportedly was in [employer] [facility] today. Had a mental breakdown and bank personnel called the police who arrived. Said the patient was irate. They believe this be due to mental healthissue and pink slipped and brought to the emergency department. Patient tells me that the hospitals computers have been hacked and that there charging her excessively from prior care. Prior similar symptoms: Yes Recent Illness/Hospitalization: [facility] Medical History Alcohol use History of steroid therapy Fatty liver History of IBS History of edema Abrasion, left knee, initial encounter Contusion of left knee Contusion of right middle finger Strain of right middle finger Chest wall contusion Sternum pain Health care maintenance Flu vaccine need Dermatitis Muscular abdominal pain in right flank Sjogren's disease Breast cancer screening Malaise and fatigue Anemia Fatty liver disease, nonalcoholic Wears glasses Thyroid disease Rheumatoid arthritis Injury of head and neck Difficulty swallowing Gastric reflux Non-smoker Asthma CPAP (continuous positive airway pressure) dependence History of echocardiogram History of stress test Cardiology follow-up encounter History of colon polyps Obesity Abnormal laboratory test Constipation Unsteady gait Borderline type 2 diabetes mellitus Macromastia Screening for diabetes mellitus BMI greater than 40 Anxiety and depression Radiculopathy Hypokalemia COVID-19 virus detected (05/09/20) Chronic neck and back pain Difficulty balancing when standing Shoulder pain Adrenal insufficiency SOB (shortness of breath) Obesity Essential (primary) hypertension Airway polyps Adenomatous polyps FH: colon cancer in first degree relative <60 years old Sinusitis Otitis media Limb weakness Fatigue Acute bronchitis Hypopituitarism Dyspnea Osteopenia Osteoarthritis Basal cell carcinoma Vitamin D deficiency Arthritis Hypersomnia Cellulitis of right lower leg MGUS (monoclonal gammopathy of unknown significance) Hypothyroidism Home Medications ?Medication ?Instructions ?Recorded ?Last Taken ?Type folic acid 0.8 mg capsule 0.8 mg PO DAILY supplement 1 09/14/17 04/14/24 History hydroxychloroquine 200 mg tablet 200 mg PO BID ra 08/1206/11/24 History (Plaquenil) Handicap Placard #1 ea 11/22/22 Unknown Rx ipratropium 0.5 mg-albuterol 3 mg 3 ml inhalation Q4H PRN PRN SOB 05/20/23 Unknown Rx (2.5 mg base)/3 mL nebulization &/OR WHEEZING #180 mL soln potassium chloride 10 mEq 10 meq PO BID 07/22/2304/14 History capsule,extended release venlafaxine 37.5 mg tablet 37.5 mg PO QHS 04/13/2412/02 History pantoprazole 40 mg tablet,delayed 40 mg PO DAILY acid 05/17/24 06/11/24 History release thyroid (pork) 15 mg tablet 15 mg PO MOTUWETHFR thyroi d 05/17/24 Unknown History ([place] Thyroid) thyroid (pork) 60 mg tablet 30 mg PO SUSA 06/08/24 Unk nown History ([place] Thyroid) amiloride 5 mg-hydrochlorothiazide 1 tab PO DAILY 07/11 09/03 Unknown History 50 mg tablet phentermine 37.5 mg capsule 37.5 mg PO QDAY #30 caps 0 01/25/25 Unknown Rx cyclosporine 0.05 % eye drops in a 1 drp ophthalmic (e ye) Q12H 02/10/25 Unknown History dropperette magnesium oxide 400 mg PO DAILY 02/10/25 Unk nown History Allergy/AdvReac Type Severity Reaction Status Date / Time phenytoin sodium (From Allergy Mild Rash Verified 02/10/25 14:45 Dilantin) phenytoin sodium extended Allergy Mild Rash Verified 02/10/25 14:45 (From Dilantin) Food Allergies: Uncoded Allergy Anaphylaxis Verified 02/10/25 14:45 ketorolac tromethamine (From Allergy Anaphylaxis Verified 02/10/25 14:45 Toradol) venom-wasp (wasps) Allergy Anaphylaxis Verified 02/10/25 14:45 morphine AdvReac Severe Other Verified 02/10/25 14:45 Family History Father Cancer father passed of lung CA at 55 Mother Dementia Osteoarthritis COPD (chronic obstructive pulmonary disease) Brother Myocardial infarction, Onset Age: 49 Aunt Multiple sclerosis Sister Colon cancer Breast cancer Aunt Celiac disease Surgical History Status post left foot surgery History of cardiac catheterization Hx of colonoscopy Hx of oral surgery History of tonsillectomy and adenoidectomy S/P knee surgery H/O dilation and curettage History of cataract surgery History of orthopedic surgery History of carpal tunnel release S/P bunionectomy S/P excision of Molina's neuroma History of carpal tunnel surgery History of cholecystectomy History of hysterectomy History of 2 sections Status post total right knee replacement Social History housing: house Smoking Status: Never smoker alcohol intake: current alcohol intake frequency: a few times a month Alcohol type: wine substance use type: does not use what type of physical activity do you participate in: walking, bicycling and swimming frequency: 3-4 times per week 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 Constitutional Constitutional ED: Denies fever(s) Eyes Eyes: Denies blurry vision ENT ENT ED: Denies ear pain Cardiovascular Cardiovascular: Denies chest pain Respiratory/Chest Respiratory/Chest: Denies cough or dyspnea Gastrointestinal Gastrointestinal: Denies abdominal pain Genitourinary Genitourinary ED: Denies dysuria Musculoskeletal Musculoskeletal: Denies arthralgias Integumentary Denies abscess Neurologic Neurologic: Denies headache(s) Psychiatric Psychiatric: Denies anxiety or depression Endocrine Endocrinology: Denies polydipsia or polyphagia Hematologic/Lymphatic Hematologic/Lymphatic: Denies easy bleeding, easy bruising or lymphadenopathy Allergic/Immunologic Allergic/Immunologic ED: Denies mouth swelling, tongue swelling or urticaria EXAM Physical Exam Narrative Exam Narrative: 74-year-old female vital signs are stable afebrile. Pulse ox 100% on room air no signs hypoxia. She does not look septic or toxic. She is emotionally upset and tearful. As I walk in the room she is in 4 point restraints. She is verbally aggressive towards nursing staff. H EENT exam pupils round react to light. Mytrex membranes. No trauma to her face or scalp. Neck nontender. No meningismus. No lymphadenopathy. Back nontender. Lungs clear to auscultation bilaterally. Heart regular rhythm rate about 100 no murmur. Chest wall ribs nontender. Abdomen soft nontender. Moving all 4 extremities. Normal air transportation provider strength. Normal dorsi plantarflexion. Nontender no edema. No deformity. Neurologically she is awake and alert. She is emotionally upset at times tearful and at times agitated. But she does know she is in the hospital. She knows the year is 2024. She knows the president. She knows the month. Const Vital Signs: 02/10/25 14:46 02/10/25 15:28 02/10/25 15:35 Temperature 96.9 F L Temperature Source Temporal Pulse Rate 102 H 100 Respiratory Rate 24 H 18 Blood Pressure 139/91 H 155/78 H Blood Pressure Mean 107 103 Pulse Ox 100 98 100 Oxygen Delivery Method Room Air Room Air Room Air 02/10/25 16:00 02/10/25 17:00 02/10/25 18:00 Temperature Temperature Source Pulse Rate 97 91 90 Respiratory Rate 14 16 17 Blood Pressure 155/78 H 122/71 H 137/73 H Blood Pressure Mean 103 88 94 Pulse Ox 100 100 100 Oxygen Delivery Method Room Air Room Air Room Air Positive well nourished and well developed; Negative for cachectic, contracturesor unkempt General Appearance ED: well developed and NAD; Negative for unkempt, cachectic, contractures or pallor Nutritional Appearance: Negative for cachectic HEENT Reports moist mucous membranes normocephalic and atraumatic; Negative for trauma or tenderness Eyes PERRL and EOMs intact bilaterally General Eye ED: Negative for pale conjunctiva or scleral icterus Neck no lymphadenopathy, supple and no JVD General: Negative for tenderness Resp normal respiratory effort and clear to auscultation bilaterally Auscultation: Negative for rales, rhonchi, wheezes or diminished lung sounds Cardio S1 normal heart sound, S2 normal heart sound and no murmurs Rate: regular rate Rhythm: regular rhythm GI non-tender, non-distended and no masses Auscultation: normoactive bowel sounds Palpation: soft; Negative for tender, guarding or mass Back/Spine no CVA tenderness General Back: Negative for CVA tenderness Cervical Spine: Negative for cervical spine tenderness Thoracic Spine / Upper Back: Negative for thoracic spinal tenderness Lumbar Spine / Lower Back: Negative for lumbar spinal tenderness Extremity normal to inspection General Extremety ED: Negative for edema or tenderness General Extremity: Negative for edema Neuro oriented x3, CN's II-XII intact bilaterally and no sensory deficits noted Sensorium / Orientation: alert, oriented to person, oriented to place and oriented to time; Negative for orientation impaired, confused or lethargic Motor Exam: strength 5/5 throughout Psych speech normal, activity/motor behavior normal, denies hallucinations, denies homicidal ideation and denies suicidal ideation; Negative for mental status grossly normal, thought process normal, cooperative or affect normal Appearance: grossly normal; Negative for unkempt Attitude: No calm, engaged, paranoid, guarded, agitated and aggressive Activity / Motor Behavior: appropriate eye contact Speech: excessive, rapid and loud Mood & Affect: depressed Thought Process: flight of ideas and illogical Thought Content: normal thought content Attention / Concentration: attention grossly intact Memory / Cognition: memory grossly intact Insight: limited Judgement: limited Skin General Skin Exam: Negative for jaundice or pallor Lesions: no lesions Rashes: no rashes MDM MDM MDM Narrative Medical decision making narrative: 74-year-old female appears to be having a acute psychosis. She is paranoid. She believes that people are after her and her finances. She believes the hospitals been hacked. She will go to ED mental health evaluation. She has hada recent CAT scan of her brain in the last several months that was negative. Repeat exam an hour after she was placed in restraints about patient is still agitated at times. My concern is for her, other patients and the staff social state in restraints currently. I also spoke to her family in the waiting room for [facility] senior piping designer and I believe is her daughter also. And they state this has happened before. She had a recent mental health hospitalization for 7 days and they did not feel it did her any good. 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 Lab results narrative: CBC white count 9 H&H 12 and 37. Platelets 329. Electrolytes show sodium 140. Gap 13. Normal BUN and creatinine. Glucose 107. Liver enzymes unremarkable other than alk phos 109. Alcohol negative. Labs: Laboratory Results - last 24 hr 02/10/25 15:55 WBC 9.4 RBC 3.95 L Hgb 12.7 Hct 37.7 MCV 95.4 MCH 32.2 H MCHC 33.7 RDW Std Deviation 45.2 H RDW Coeff of Rosamaria 12.9 Plt Count 329 MPV 9.2 Immature Gran % (Auto) 0.200 Neut % (Auto) 41.1 L Lymph % (Auto) 49.6 H [place] % (Auto) 6.5 Eos % (Auto) 2.1 Baso % (Auto) 0.5 Absolute Neuts (auto) 3.8 Absolute Lymphs (auto) 4.64 H Nucleated RBC % 0 Sodium 140 Potassium 3.3 Chloride 107 Carbon Dioxide 20.6 L Anion Gap 13 BUN 17 Creatinine 0.70 Est GFR (MDRD) Non-Af 91 BUN/Creatinine Ratio 23.9 H Glucose 107 H Calcium 9.6 Total Bilirubin 0.48 AST 26 ALT 17 Alkaline Phosphatase 109 H Total Protein 7.0 Albumin 4.4 Globulin 2.6 Albumin/Globulin Ratio 1.7 Ethyl Alcohol < 10.1 Discharge Plan Triage Chief Complaint: Mental Health ED Provider: Torres Koroma Dx/Rx/DC Orders Clinical Impression: Acute psychosis, Acute paranoia, History of diabetes mellitus Prescriptions: No Action folic acid 0.8 mg capsule 0.8 mg PO DAILY Patient Comments: One at morning/one at bedtime hydroxychloroquine [Plaquenil] 200 mg tablet 200 mg PO BID thyroid (pork) [[place] Thyroid] 15 mg tablet 15 mg PO MOTUWETHFR Patient Comments: 30MG friday thru friday (DME) Handicap Placard See Rx Instructions .ROUTE .MEDSUPPLY Qty: 1 0RF Rx Instructions: As directed, length of time 3 years potassium chloride 10 mEq capsule, extended release 10 meq PO BID pantoprazole 40 mg tablet,delayed release (DR/EC) 40 mg PO DAILY Patient Comments: Patient states that she takes twice daily when she is in the hospital amiloride-hydrochlorothiazide 5-50 mg tablet 1 tab PO DAILY phentermine 37.5 mg capsule 37.5 mg PO QDAY Qty: 30 3RF Rx Instructions: must administer 30 minutes before or 1-2 hours after breakfast venlafaxine 37.5 mg tablet 37.5 mg PO QHS cyclosporine 0.05 % dropperette 1 drp ophthalmic (eye) Q12H Patient Comments: [NO ORIGINAL SIG] magnesium oxide 400 mg magnesium tablet 400 mg PO DAILY thyroid (pork) [[place] Thyroid] 60 mg tablet 30 mg PO SUSA ipratropium-albuterol 0.5 mg-3 mg(2.5 mg base)/3 mL solution for nebulization 3 ml inhalation Q4H PRN PRN (Reason: SOB &/OR WHEEZING) Qty: 180 6RF Primary Care Provider: Gamaliel Whitehead Referrals: Gamaliel Whitehead MD [Primary Care Provider] - Print Language: Kinyarwanda Disposition Disposition: Psychiatric Hospital or Unit What to do if you have Problems For any increased pain, shortness of breath, bleeding, nausea or vomiting, chestpain, or any unexpected problems, contact your Primary Care Provider. Call [facility] ([phone]) or report to the closest Emergency Room. Call 911 if necessary. 02/10/251852 <Electronically signed by Torres Koroma MD> Cosigner Signature (if applicable): CC: Dr. Gamaliel Whitehead MD ~ Signed [facility] Work Phone: 1(470) 494-768705-29-2025 Evaluation note* Diagnosis Onset Date Resolution Status Admit Date MGUS (monoclonal gammopathy of unknown significance) chronic January 06, 2025 2:53pm Asthma chronic January 18 1:35pm Obesity chronic January 18 1:35pm Sleep apnea chronic January 18 1:35pm [facility] Work Phone: 1(302) 901-419305-29-2025 Progress note Author Dontrell Torres [facility] Note Date/Time January 06, 2025 3:39p m [facility] [place] [address] OFFICE VISIT Date of Service: 01/06/25 1513 MR#: [id number] Acct: [id number] Name: BEBETO DEJESUS Rep #: [id number] : 1950 From: Dontrell Torres MD Age/Sex: 74/F Location: [facility] Status: Signed HPI Subjective Date of Service 01/06/25 Chief Complaint F/u for MGUS. History of Present Illness 74-year-old woman was diagnosed with MGUS about 20 years ago. She has remained stable, currently on observation. Comes for follow up. Feels well [facility] Medical History Alcohol use History of steroid therapy Fatty liver History of IBS History of edema Abrasion, left knee, initial encounter Contusion of left knee Contusion of right middle finger Strain of right middle finger Chest wall contusion Sternum pain Health care maintenance Flu vaccine need Dermatitis Muscular abdominal pain in right flank Sjogren's disease Breast cancer screening Malaise and fatigue Anemia Fatty liver disease, nonalcoholic Wears glasses Thyroid disease Rheumatoid arthritis Injury of head and neck Difficulty swallowing Gastric reflux Non-smoker Asthma CPAP (continuous positive airway pressure) dependence History of echocardiogram History of stress test Cardiology follow-up encounter History of colon polyps Obesity Abnormal laboratory test Constipation Unsteady gait Borderline type 2 diabetes mellitus Macromastia Screening for diabetes mellitus BMI greater than 40 Anxiety and depression Radiculopathy Hypokalemia COVID-19 virus detected (05/09/20) Chronic neck and back pain Difficulty balancing when standing Shoulder pain Adrenal insufficiency SOB (shortness of breath) Obesity Essential (primary) hypertension Airway polyps Adenomatous polyps FH: colon cancer in first degree relative <60 years old Sinusitis Otitis media Limb weakness Fatigue Acute bronchitis Hypopituitarism Dyspnea Osteopenia Osteoarthritis Basal cell carcinoma Vitamin D deficiency Arthritis Hypersomnia Cellulitis of right lower leg MGUS (monoclonal gammopathy of unknown significance) Hypothyroidism Surgical History Status post left foot surgery History of cardiac catheterization Hx of colonoscopy Hx of oral surgery History of tonsillectomy and adenoidectomy S/P knee surgery H/O dilation and curettage History of cataract surgery History of orthopedic surgery History of carpal tunnel release S/P bunionectomy S/P excision of Molina's neuroma History of carpal tunnel surgery History of cholecystectomy History of hysterectomy History of 2 sections Status post total right knee replacement Family History Father Cancer father passed of lung CA at 55 Mother Dementia Osteoarthritis COPD (chronic obstructive pulmonary disease) Brother Myocardial infarction, Onset Age: 49 Aunt Multiple sclerosis Sister Colon cancer Breast cancer Aunt Celiac disease Social History housing: house Smoking Status: Never smoker alcohol intake: current alcohol intake frequency: a few times a month Alcohol type: wine substance use type: does not use what type of physical activity do you participate in: walking, bicycling and swimming frequency: 3-4 times per week 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 12/22/24 15:40 01/06/25 15:15 01/06/25 15:19 Height 5 ft 5 in 5 ft 5 in 5 ft 5 in Weight: 101.264 kg 103.929 kg BMI 37.1 38.1 BP 138/74 H Blood Pressure Location Lt brachial Position Sitting Respiration 18 Pulse 97 Pulse Source Monitor Temp 98.1 F Temperature Source Temporal Artery Pulse Oximetry (%) 97 Oxygen Delivery Method room air Intake Is patient in pain?: No Allergies phenytoin sodium (From Dilantin) Allergy (Mild, Verified 01/06/25 15:13) Rash phenytoin sodium extended (From Dilantin) Allergy (Mild, Verified 01/06/25 15:13) Rash ketorolac tromethamine (From Toradol) Allergy (Verified 01/06/25 15:13) Anaphylaxis morphine Adverse Reaction (Severe, Verified 01/06/25 15:13) Other Medications ?Medication ?Instructions ?Recorded ?Confirmed ?Type folic acid 0.8 mg capsule 0.8 mg PO BID supplement 11/2601/06/25 History hydroxychloroquine 200 mg tablet 200 mg PO BID ra 08/1201/06/25 History (Plaquenil) methotrexate sodium 25 mg/mL 25 mg subcut QWEEK rheuma toid 09/25/20 01/06/25 History injection solution arthritis magnesium oxide 500 mg capsule 600 mg PO DAILY Supplem ent 09/11/21 01/06/25 History Handicap Placard #1 ea 11/22/22 01/06/25 Rx ipratropium 0.5 mg-albuterol 3 mg 3 ml inhalation Q4H PRN PRN SOB 05/20/23 01/06/25 Rx (2.5 mg base)/3 mL nebulization &/OR WHEEZING #180 mL soln potassium chloride 10 mEq 10 meq PO BID 07/22/2301/06 History capsule,extended release ursodiol 300 mg capsule 300 mg PO BID #180 caps 05/0 04/0301/06/25 Rx sulfasalazine 500 mg 1 g (2 x 500 mg) PO BID 90 d ays 01/23/24 01/06/25 Rx tablet,delayed release #360 tabs venlafaxine 37.5 mg tablet 37.5 mg PO QHS 04/13/24 History pantoprazole 40 mg tablet,delayed 40 mg PO DAILY acid 05/17/24 01/06/25 History release thyroid (pork) 15 mg tablet 15 mg PO MOTUWETHFR thyroi d 05/17/24 01/06/25 History ([place] Thyroid) thyroid (pork) 60 mg tablet 30 mg PO SUSA 06/08/24 History ([place] Thyroid) vitamin E (dl, acetate) 180 mg 180 mg PO BID 06/08/24 01/06/25 History (400 unit) capsule amiloride 5 mg-hydrochlorothiazide 0.5 tab PO DAILY 01/06/25 History 50 mg tablet phentermine 37.5 mg capsule 37.5 mg PO QDAY #30 caps 0 11/02/24 01/06/25 Rx hydrocodone-acetaminophen 5-325mg 1 tab PO TID PRN PRN pain 12/10/24 01/06/25 History 5mg-325mg prednisone 5 mg tablet 5 mg PO DAILY Adrenal insuff iciency 01/06/25 01/06/25 History Have you fallen in the past year?: No Central Venous Access Central Venous Access: No Exam Physical Exam Const alert, oriented x3 and no apparent distress General Appearance: cooperative and comfortable HEENT normocephalic, external ears normal and external nose normal Eyes PERRL, conjunctivae normal and no scleral icterus Neck supple Lymph Lymphatic: no lymphadenopathy noted Chest inspection of chest normal Resp normal respiratory effort, no use of accessory muscles and clear to auscultationbilaterally Cardio regular rate, regular rhythm, S1 normal heart sound, S2 normal heart sound and no murmurs Back/Spine no CVA tenderness and thoracic and lumbar spine normal to inspection Extremity normal to inspection and no clubbing, cyanosis or edema Neuro oriented x3, CN's II-XII intact bilaterally and moves all extremities Coding Level of Care Code Off vis,est,level 3 Exam Problem Focused Diagnoses MGUS (monoclonal gammopathy of unknown significance) D47.2 Assessment and Plan Assessment and Plan (1) MGUS (monoclonal gammopathy of unknown significance): Status: Chronic Comment: M-spike 0.2-stable. Labs on 12/10/2024 reviewed, stable. Clinically stable. Plan: To continue observation. Plan Details Follow Up: 12 Months Clinical Quality Measures Falls Risk Screening/Assistive Devices Have you fallen in the past year?: No 01/06/25 1539 <Electronically signed by Dontrell Raza> Date _ Dontrell Torres MD Cosigner Signature: Date (if applicable) CC: Dr. Gamaliel Whitehead MD ~ [employer] Work Phone: 1(807) 980-794405-12-2025 Note. MICRO - Microbiology PROCEDURE: Culture Beta Strep Only [*1] SOURCE: Throat BODY SITE: COLLECTED DATE/TIME: 12/17/2024 21:15 EDT RECEIVED DATE/TIME: 12/18/2024 16:08 EDT START DATE/TIME: 12/18/2024 16:10 EDT FREE TEXT SOURCE: [id number] lab [id number] FINAL REPORTS Final Report [] Verified Date/Time/Personnel: 12/20/2024 07:10 EDT No Beta Strep isolated at 48hrs. PRELIMINARY REPORTS Preliminary Report [] Verified Date/Time/Personnel: 12/19/2024 13:39 EDT No beta Strep isolated at 24 hours. Performing Locations *1: This test was performed at: [facility], [address] [place] [address], [facility] , [facility] [id number] Evaluation note* Diagnosis Onset Date Resolution Status Admit Date Diarrhea chronic October 21 1:05pm Dyspnea October 21 1:05pm Fatty liver disease, nonalcoholic chronic October 21, 2024 1:05pm Obesity chronic October 21 1:05pm [facility] Work Phone: 1(475) 764-355603-13-2025 Evaluation note* Diagnosis Onset Date Resolution Status Admit Date Diarrhea chronic October 21 1:05pm Dyspnea chronic October 21 1:05pm Fatty liver disease, nonalcoholic chronic October 21, 2024 1:05pm Obesity chronic October 21 1:05pm MGUS (monoclonal gammopathy of unknown significance) chronic January 06, 2025 2:53pm [facility] Work Phone: 1(117) 270-792703-13-2025 Evaluation note* Diagnosis Onset Date Resolution Status Admit Date Diarrhea chronic October 21 1:05pm Dyspnea chronic October 21 1:05pm Fatty liver disease, nonalcoholic chronic October 21, 2024 1:05pm Obesity chronic October 21 1:05pm MGUS (monoclonal gammopathy of unknown significance) chronic January 06, 2025 2:53pm Asthma chronic January 18 1:35pm Obesity chronic January 18 1:35pm Sleep apnea chronic January 18 1:35pm [facility] Work Phone: [phone] [facility]12-29-2024 Evaluation note* Diagnosis Onset Date Resolution Status Admit Date Closed left humeral fracture acute August 07, 2024 11:58pm Debility acute August 07, 2024 11:58pm Fall acute August 07, 2024 11:58pm Intractable pain acute August 07, 2024 11:58pm Leukocytosis acute July 11:58pm Nonalcoholic fatty liver disease acute August 07 11:58pm Obesity (BMI 30-39.9) acute Jul 11:58pm S/P foot surgery, left acute De cem2023 11:58pm Severe anxiety acute July 122023 11:58pm Hypokalemia chronic July 11:58pm Sleep apnea chronic July 11:58pm Diarrhea chronic October 21 1:05pm Dyspnea chronic October 21 1:05pm Fatty liver disease, nonalcoholic chronic October 21, 2024 1:05pm Obesity chronic October 21 1:05pm [facility] Work Phone: 1(999) 275-848711-04-2024 [facility]11-02-2024 [facility]07-23-2024 History of Present illness Narrative* Roger Bustamante MD - 03/02/2024 3:10 PM EDT [facility] Initial Evaluation RE: Bebeto Dejesus : 1950 Outpatient Primary Provider: Ronnie Hull Referring Provider: Self Self No address on file Bebeto Dejesus is a 73 y.o. right-handed female with an unclear history of remote brain tumor, CPAP, hypothyroidism, adrenal insufficiency, rheumatoid arthritis, MGUS who presents today to the [facility] because of concerns related to stress. Patient was unaccompanied. This visit was done in-person. Chief Complaint: stress Bebeto Dejesus returned on 03/02/2024, for her follow-up visit. Interim events: no significant events since last visit. Her son accompanied her today. He thinks she has been doing better actually. He doesn't notice any major lapses in cognition of functioning. She also had labwork from her main doctor which she reports was normal. I am not able to see those results. Went over MRI results which revealed minimal burden of cerebrovascular disease. 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 We discussed possibility of repeating an MRI Brain with contrast, which we avoided at last visit due to prior history of kidney impairment, if concern was high. Given the updated information and consistent improvement in symptoms, the patient and her son discussed that it would be better to avoid using contrast for now. She found benefit from modafinil- more energy and focus. This was prescribed by Dr. Angélica Ingram (sleep medicine). No significant changes in cognition or mood since last visit. Stated mood is pretty good. No changes in sleep, appetite, energy level. No changes in behavior including aggression, pacing, restlessness, disinhibition. No changes in mood or affect including depression, anxiety, apathy, crying spells, hopelessness, suicidal ideation. No concern for psychosis including delusions of reference, paranoia, suspiciousness, auditory hallucinations. 02/03/2024 3:00 PM Cognitive Symptoms COGNITIVE SYMPTOMS: 0=absent, 1-mild, 2-moderate, 3-severe Yes Short Term Memory Trouble 2 Misplace Items 2 Repeat Questions 0 Unable to Recognize Family 0 Disorientation to Date 1 Word Finding Trouble 2 Verbal Comprehension Loss 0 Poor Sense of Direction 2 Lost in Home 0 Total Cognitive Score 9 Delusions 0 Hallucinations 0 Agitation or aggression 1 Depression or dysphoria 1 Anxiety 0 Elation or euphoria 0 Apathy or indifference 0 Disinhibition 1 Irritability or lability 2 Motor disturbance 0 Nighttime behaviors 1 Appetite and Eating 1 Total Behavioral Score 7 Driving independent Finances-Bill Paying independent Shopping independent Cooking independent Appliances/Microwave independent Hobbies/Leisure Activities independent Housekeeping/Yard work independent Computer/Tablet independent Cell phone/TV Remote independent Land Telephone independent Medication Management independent Dressing independent Grooming independent Feeding independent Toileting independent Urinary Incontinence leakage Bowel Incontinence leakage Falls stumbles Walking performs independently Medical History: Past Medical History: Diagnosis Date Adrenal insufficiency GERD (gastroesophageal reflux disease) Insomnia - there is no history of seizure or traumatic brain injury Allergies: Allergies Allergen Reactions Dilantin [Phenytoin] Rash Full body rash Ketorolac Anaphylaxis Toradol [Ketorolac Tromethamine] Anaphylaxis Morphine combative Phenytoin Sodium Extended Rash Sulfamethoxazole-Trimethoprim Other Reaction(s): headache/blurred vision Current Medications: Outpatient Medications Prior to Visit: aMILoride-hydroCHLOROthiazide 5-50 MG per tablet, buPROPion 150 MG tablet XL, Cobalamin Combinations (Opurity B12/Folic Acid) 1000-200 MCG tablet, Take 2,000 mcg by mouth daily. Cyclobenzaprine 10 MG tablet, Take 1 tablet by mouth at bedtime. Ergocalciferol 1.25 MG (79734 UT) capsule, Take 1 capsule by mouth once a week. Taking 1.25mg Takesonce every other week fluticasone 50 MCG/ACT Suspension nasal spray, 2 sprays by Nasal route daily. PRN Hydroxychloroquine 200 MG tablet, Take 1 tablet by mouth 2 times daily. MAGNESIUM GLUCONATE PO, Take by mouth. METHOTREXATE IJ, Inject 0.5 mL as directed once a week. Modafinil 200 MG tablet, Take 1 tablet by mouth daily. Montelukast 10 MG tablet, Take 1 tablet by mouth daily. Pantoprazole [address] tablet DR, Take 1 tablet by mouth daily. potassium chloride 10 MEQ Cap CR, Take 1 capsule by mouth 2 times daily. predniSONE 5 MG tablet, Take 1 tablet by mouth daily. Sucralfate 1 g tablet, Take 1 tablet by mouth as needed. Sulfasalazine [address], SYRINGE-NEEDLE, DISP, 3 ML (B-D 3CC LUER-АННА SYR 26GX5/8) 26G X 5/8 3 ML Misc, by Unknown route. Thyroid 30 MG tablet, Take 1 tablet by mouth daily. One tab daily and 2 tabs on Sat and Sun triamcinolone 0.025 % Cream cream, ursodiol 300 MG capsule, Take 1 capsule by mouth every 12 hours. Family History: There is a family history of unspecified dementia in mother with sx onset in 70s and a great aunt with AD, no other neurological, autoimmune and cardiovascular disease. 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 General Physical Examination: - Vital signs: Vitals: 03/02/24 1508 BP: 167/83 Pulse: 89 Temp: 97.9 degrees F (36.6 degrees C) TempSrc: Infrared Weight: 106.1 kg (234 lb) Height: 1.664 m (5' 5.5) Wt Readings from Last 3 Encounters: 03/02/24 106.1 kg (234 lb) 02/03/24 108 kg (238 lb) 01/21/24 104.5 kg (230 lb 6.4 oz) General: well nourished, in no acute distress, appropriately groomed and dressed Skin: No rashes or lesions (full gowned exam not performed) Pulm: Breathing comfortably on room air Cardiac: RRR Abdomen: soft, non-distended Neurological Examination: Cranial Nerves:??? II,III: VFF, NOEL III,IV,: EOMI, no ptosis, normal saccades/pursuits ??? V: sensation intact to light touch ??? VII: facial strength intact/symmetric smile VIII: hears finger rub bilaterally ??? IX,X: voice normal, palate elevates symmetrically ??? XI: normal shoulder shrug ??? XII: tongue protrudes midline without atrophy or fasciculation ??? Motor ??? Strength was 5/5 throughout including: shoulder abduction, flexion and extension at the elbows, fingers, hips, knees, as well as ankle dorsiflexion and plantarflexion. No pronator drift. Normal bulk and tone; no tremor, rigidity, cogwheeling or bradykinesia. ? Reflexes ?2+ and symmetric throughout. Plantar responses flexor, no Guardado's. No frontal release signs. Sensation ??? Normal to light touch, temperature and vibration. Proprioception intact. ? Coordination ??? Kxchvi-kuef-vqdatw, gljz-ec-eaxl Intact without dysmetria, normal mirroring without past-pointing, MONSE intact.? Gait ??? Able to arise from chair and sit back down without using arms. Posture, stance, stride, and arm swing normal. Tandem gait intact. Heel and toe-walking intact.? Able to right self in less than twosteps when pulled backwards from the shoulders. Testing Laboratory testing: No results found for: SODIUM, POTASSIUM, CHLORIDE, CO2, BUN, CREATSERUM, GLUCOSE No results found for: ALT, TRANSFERASEA, AST, GGT, GAMMAGT, ALKPHOS, BILITOTAL, BILIDIRECT No results found for: WBC, WBCCOUNT, WBCFETAL, HGB, HCT, PLATELET, MCV No results found for: HGBA1C No results found for: IRON, FERRITIN No results found for: TSH, SJJ14ELX, QEH88QAX, TSHBASELINE, TSHULTRASEN, T3FREE, C2MFCRVUK, Z9BGBXA, Q4MQLRIJ, T4FREE, TPOAB No results found for: CHOLESTEROL, TRIG, HDL, LDLCALC, LDLDIRECT No results found for: B12, FOLATERBC, FOLATE, [id number], HOMOCYSTEINE No results found for: RPR, [id number], CAIO, ESR, CRP Neuroimaging: MRI Brain 2018 (my interpretation): no significant atrophy, minimal burden of white matter disease Neuropsychological Evaluation Dr. Linder 10/20/23 The patient performed at or near expectation across most cognitive domains. However, novel problemsolving and mental calculation were below normal limits. Behaviorally, the patient was cooperative but exhibited a limited frustration tolerance and perseverated on prior task instructions during onetest. She also was quick to become irritated towards her partner when he was asked a few questions during the interview, and her insight and judgment appeared at least slightly below normal. While she endorsed minimal overall distress, her partner expressed concern regarding irritability/agitation and rated her behavior as falling well outside normal limits in terms of apathy, disinhibition, and e xecutive functioning. Taken together, a tentative diagnosis of Unspecified Neurocognitive Disorder is offered given observed impairment in problem solving combined with difficulty with mental math and perseveration on prior task instructions during a working memory task. That said, these results do not clearly explain the cognitive complaints described by the patient or her partner. With regard to etiology, emotional distress, disrupted sleep, and polypharmacy represent primary risk factors that may explain at leastsome of the patient's cognitive complaints. It is currently unclear whether distress alone explainsher partner's observations of behavioral changes, especially since the patient asserted that her mood is much improved and seems to have limited awareness of the extent of her irritability. Inconsistent medication adherence could explain her cognitive fluctuations. There is a minor chance that the patient's prior brain tumor diagnosis is relevant to her current clinical presentation; recent neuroimaging results would be necessary to further assess that specific risk factor. It will also be important to rule out a brain tumor as a contributing factor given her reported history. Finally, the etiology of the patient's visual illusions/hallucinations is currently unclear in the absence of severe distress or parkinsonism. Impression: Bebeto Dejesus is a 73 y.o. r-handed female with an unclear history of brain tumor, MARCELLA on CPAP, hypothyroidism, adrenal insufficiency, rheumatoid arthritis, MGUS who presents today to the [facility] because of concerns related to stress. Patient was unaccompanied. The patient and family describe at least a 20 year history of dysexuctive symptoms in the context of stress. There is no impairment in iADLs and no impairment in basic ADLs. On MMSE and MARQUEZ, she haddifficulties on tasks of executive functioning. Scores were 27/30 and 15/22, respectively. Neuropsyc hological evaluation revealed near expectation across most cognitive domains. However, novel problem solving and mental calculation were below normal limits. Behaviorally, the patient was cooperative but exhibited a limited frustration tolerance and perseveration. A diagnosis of unspecified neurocognitive disorder was made. This evaluation was also revealing for significant irritability especially as reported by partner. This partner is no longer present in her life and she reports mild irritability that has improved outside of this relationship. There were no notable findings on elemental neurologic exam. In sum, her difficulties are at the level of MCI with a frontal syndrome most likely due to combination of polypharmacy, medical illness, hypersomnia, anxiety. Neurodegenerative disorder seems less likely at this time. Update 03/02/2024: She continues to report improvement in cognitive sx. Her son does not observe significant impairment or decline in function. Recommendations and Care Plan: Labs: None Imaging/Studies: We discussed possibility of repeating an MRI Brain with contrast, which we avoided at last visit due to prior history of kidney impairment, if concern was high. Given the updated history that she wasmonitored in the past for a pituitary shadow and not a brain tumor and the fact that she has had c onsistent improvement in symptoms, the patient and her son discussed that it would be better to avoid repeating an MRI with contrast today Medications: no changes Avoid (unless strongly indicated): anticholinergics, sedative/hypnotics, opioids, general anesthesia. Previously tried cognitive enhancing medications: Donepezil: No Rivastigmine: No Galantamine: No Memantine: No Subspecialty Referrals: none today Follows with [facility] sleep medicine Home Safety: No current concerns Discussed Advanced Care Planning Healthcare power of senior piping designer in place: yes- sonAgusto Please send us a copy of your healthcare power of senior piping designer documents. This can be faxed to or mailed to [address] [place] [phone]. Financial power of senior piping designer in place: yes- daughter Living will in place: yes Primary caregiver: self As we discussed, we have a high school social studies teacher available if additional resource needs develop. Control of vascular risk factors (blood pressure, cholesterol, diabetes, smoking cessation) aregiver support, e.g. burnout Aerobic exercise as safely tolerated Goal 150 minutes per week: 30 minutes per session, 5 sessions per week) Consumption of a heart healthy diet (e.g. Mediterranean diet) Regular engagement in social and intellectually-stimulating activities She will continue to be monitored over time to manage and treat her condition. We will assess for changes in cognitive and functional abilities and behavioral changes. Medication changes will be discussed and recommended if warranted. We reviewed and discussed factors that could contribute to cognitive impairment. Medications were reconciled and reviewed for high risk medications. We discussed caregiver and social issues includingcaregiver knowledge and needs, social supports and resource availability. We discussed activities of daily living and home safety issues. Follow up in about [address] Bustamante for a follow up visit. She may decide to follow up locally instead. Call our office with any questions or concerns between appointments: Roger Bustamante MD 03/02/2024 [facility] The above impression was discussed at length with the patient and family and their questions were answered. We discussed diagnosis, prognosis and course, treatment and management options. I have discussed today the risks and benefits of all his psychopharmacological medications with the patient, family or legally authorized ambulatory services representative including, but not limited to, any black box warnings. Patient and family verbalized understanding and agreement with plan. [id number] She has had no decline since the last visit and is doing as well as can be expected for this condition. At the time of the visit, it is my opinion that the patient does not have impaired decision-making capacity. The patient has had behavioral/neuropsychiatric symptoms. These symptoms are not problematic enough to warrant a medication adjustment, as described above. Total time spent on the day of the encounter was 50 minutes. This time consisted of time spent kssj-uv-vskr evaluation of the patient, discussing plan of care and treatment options, discussion with collateral informants, discussion with other care providers, documentation, and the reviewing of pastmedical history. We discussed behavioral modification techniques as well as environmental factors that can impact behaviors. I reviewed all her psychopharmacological medications at this visit and except as noted below, all of those medications are currently at the lowest effective dose to manage the behaviors. We have discussed the risks and benefits of these agents with the patient, family and/or legally authorized ambulatory services representative including, but not limited to, any black box warnings. We reviewed and discussed factors that could contribute to cognitive impairment. Medications were reconciled and reviewed for high risk medications. We discussed caregiver and social issues includingcaregiver knowledge and needs, social supports and resource availability. We discussed activities of daily living and home safety issues. The plan of care was discussed with the patient and/or family or legally authorized ambulatory services representative and all questions answered. A copy of the care plan below was provided on their After Visit Summary. documented in this [facility] Instructions* Patient Instructions* Roger Bustamante MD - 03/02/2024 3:10 PM EDT Recommendations and Care Plan: Labs: None Imaging/Studies: We discussed possibility of repeating an MRI Brain with contrast, which we avoided at last visit due to prior history of kidney impairment, if concern was high. Given the updated history that she wasmonitored in the past for a pituitary shadow and not a brain tumor and the fact that she has had c onsistent improvement in symptoms, the patient and her son discussed that it would be better to avoid repeating an MRI with contrast today Medications: no changes Avoid (unless strongly indicated): anticholinergics, sedative/hypnotics, opioids, general anesthesia. Previously tried cognitive enhancing medications: Donepezil: No Rivastigmine: No Galantamine: No Memantine: No Subspecialty Referrals: none today Follows with [facility] Home Safety: No current concerns Discussed Advanced Care Planning Healthcare power of senior piping designer in place: yes- Agusto jurado Please send us a copy of your healthcare power of senior piping designer documents. This can be faxed to or mailed to [facility] [address] [place] [phone]. Financial power of senior piping designer in place: yes- daughter Living will in place: yes Primary caregiver: self As we discussed, we have a high school social studies teacher available if additional resource needs develop. Control of vascular risk factors (blood pressure, cholesterol, diabetes, smoking cessation) aregiver support, e.g. burnout Aerobic exercise as safely tolerated Goal 150 minutes per week: 30 minutes per session, 5 sessions per week) Consumption of a heart healthy diet (e.g. Mediterranean diet) Regular engagement in social and intellectually-stimulating activities She will continue to be monitored over time to manage and treat her condition. We will assess for changes in cognitive and functional abilities and behavioral changes. Medication changes will be discussed and recommended if warranted. We reviewed and discussed factors that could contribute to cognitive impairment. Medications were reconciled and reviewed for high risk medications. We discussed caregiver and social issues includingcaregiver knowledge and needs, social supports and resource availability. We discussed activities of daily living and home safety issues. Follow up in about [address] Bustamante for a follow up visit. She may decide to follow up locally instead. Call our office with any questions or concerns between appointments: documented in this encounterU [facility] History of Present illness Narrative* Roger Bustamante MD - 02/03/2024 1:10 PM EDT [facility] Initial Evaluation RE: Bebeto Dejesus : 1950 Outpatient Primary Provider: Ronnie Hull Referring Provider: Angélica Ingram MD [address] [facility] [place] [address] Bebeto Dejesus is a 73 y.o. right-handed female with an unclear history of remote brain tumor, CPAP, hypothyroidism, adrenal insufficiency, rheumatoid arthritis, MGUS who presents today to the [facility] because of concerns related to stress. Patient was unaccompanied. This visit was done in-person. Chief Complaint: stress History of present illness: Referred to cognitive clinic by Dr. Linder. Neuropsychological assessment done with Dr. Linder in October 2023 which revealed Taken together, a tentative diagnosis of Unspecified Neurocognitive Disorder is offered given observed impairment in problem solving combined with difficulty with mental mathand perseveration on prior task instructions during a working memory task. That made me mad- particularly clock draw on ipad and asked to try again on paper. Patient reports being stressed since 1999. 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 In 1999 started taking care of her aunt in [place] and traveling back and forth for about 10 years. Inherited her house and this caused conflict with the family. Since then has been taking care of various family members and this resulted in court cases for inheritance disputes. Also says that I got sick during the trial in terms of decompensation of adrenal insufficiency. I still am not right. split from her. Is breaking up with her partner in the past few months and is trying to manage all of his belongings. Cognitively, describes trouble with organizing herself and tasks. Will sometimes forget appointments. Explains that she also has ADHD which was diagnosed many years ago. Went over the following as documented by Dr. Linder on 10/20/23: The patient reported experiencing difficulty with attention, maintaining her train of thought, keeping track of time, and keeping track of items. She reported onset in 2001, when she was quite ill (illness unspecified). Since then, she stated that she thought her recent cognitive problems were dueto stress, but she feels that she remains below her cognitive baseline despite resolution of her primary stressor (i.e., the lawsuit). She also acknowledged the possibility of normal aging contributing to her cognitive concerns. Functionally, the patient reported that she continues to drive and manage her finances and appointments without difficulty. However, she has left her gas stove on and hashad difficulty managing her medication despite blister packaging. Neuropsychiatric Symptoms: No social support right now. Feels agitated and stressed. Feels less stressed without her partner. Describes chronic stress. Describes visual illusions that she attributes to difficulty with distance vision. No william visual hallucinations. She attributes many of these symptoms to adrenal insufficiency. yes Other Neurologic: Follows with sleep medicine - reports compliance with CPAP Functional [place]: Lives alone 02/03/2024 3:00 PM Cognitive Symptoms COGNITIVE SYMPTOMS: 0=absent, 1-mild, 2-moderate, 3-severe Yes Short Term Memory Trouble 2 Misplace Items 2 Repeat Questions 0 Unable to Recognize Family 0 Disorientation to Date 1 Word Finding Trouble 2 Verbal Comprehension Loss 0 Poor Sense of Direction 2 Lost in Home 0 Total Cognitive Score 9 Delusions 0 Hallucinations 0 Agitation or aggression 1 Depression or dysphoria 1 Anxiety 0 Elation or euphoria 0 Apathy or indifference 0 Disinhibition 1 Irritability or lability 2 Motor disturbance 0 Nighttime behaviors 1 Appetite and Eating 1 Total Behavioral Score 7 Driving independent Finances-Bill Paying independent Shopping independent Cooking independent Appliances/Microwave independent Hobbies/Leisure Activities independent Housekeeping/Yard work independent Computer/Tablet independent Cell phone/TV Remote independent Land Telephone independent Medication Management independent Dressing independent Grooming independent Feeding independent Toileting independent Urinary Incontinence leakage Bowel Incontinence leakage Falls stumbles Walking performs independently Medical History: Past Medical History: Diagnosis Date Adrenal insufficiency GERD (gastroesophageal reflux disease) Insomnia - there is no history of seizure or traumatic brain injury Allergies: Allergies Allergen Reactions Dilantin [Phenytoin] Rash Full body rash Ketorolac Anaphylaxis Toradol [Ketorolac Tromethamine] Anaphylaxis Morphine combative Phenytoin Sodium Extended Rash Sulfamethoxazole-Trimethoprim Other Reaction(s): headache/blurred vision Current Medications: Outpatient Medications Prior to Visit: aMILoride-hydroCHLOROthiazide 5-50 MG per tablet, buPROPion 150 MG tablet XL, Cobalamin Combinations (Opurity B12/Folic Acid) 1000-200 MCG tablet, Take 2,000 mcg by mouth daily. Cyclobenzaprine 10 MG tablet, Take 1 tablet by mouth at bedtime. Ergocalciferol 1.25 MG (95160 UT) capsule, Take 1 capsule by mouth once a week. Taking 1.25mg fluticasone 50 MCG/ACT Suspension nasal spray, 2 sprays by Nasal route daily. Hydroxychloroquine 200 MG tablet, Take 1 tablet by mouth 2 times daily. MAGNESIUM GLUCONATE PO, Take by mouth. METHOTREXATE IJ, Inject 0.5 mL as directed once a week. Modafinil 200 MG tablet, Take 1 tablet by mouth daily. Montelukast 10 MG tablet, Take 1 tablet by mouth daily. Pantoprazole [address] tablet DR, Take 1 tablet by mouth daily. potassium chloride 10 MEQ Cap CR, Take 1 capsule by mouth 2 times daily. predniSONE 5 MG tablet, Take 1 tablet by mouth daily. Sucralfate 1 g tablet, Take 1 tablet by mouth every 6 hours. SYRINGE-NEEDLE, DISP, 3 ML (B-D 3CC LUER-АННА SYR 26GX5/8) 26G X 5/8 3 ML Misc, by Unknown route. Thyroid 30 MG tablet, Take 1 tablet by mouth daily. One tab daily and 2 tabs on Sat and Sun triamcinolone 0.025 % Cream cream, ursodiol 300 MG capsule, Take 1 capsule by mouth every 12 hours. Family History: There is a family history of unspecified dementia in mother with sx onset in 70s and a great aunt with AD, no other neurological, autoimmune and cardiovascular disease. 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 General Physical Examination: - Vital signs: Vitals: 02/03/24 1302 BP: 136/62 Pulse: 94 Temp: 98.2 degrees F (36.8 degrees C) TempSrc: Infrared Weight: 108 kg (238 lb) Height: 1.664 m (5' 5.5) Wt Readings from Last 3 Encounters: 02/03/24 108 kg (238 lb) 01/21/24 104.5 kg (230 lb 6.4 oz) 09/24/23 102.3 kg (225 lb 9.6 oz) General: well nourished, in no acute distress, appropriately groomed and dressed Skin: No rashes or lesions (full gowned exam not performed) Pulm: Breathing comfortably on room air Cardiac: RRR Abdomen: soft, non-distended Neurological Examination: Neurobehavioral Status Examination We performed additional cognitive and neurobehavioral testing on the patient today that was more than what would typically be done at this level visit and was above and beyond the evaluation and management services provided. The cognitive testing took an additional 30 minutes today. Scoring, interpretation, and preparation of the report required another 7 minutes. The data is entered into the flowsheets and the raw tests are scanned into the chart. General: alert, appropriately interactive, euthymic affect ??? Orientation: oriented to person, place, date, situation ??? Attention: attends examiner normally Speech/Lang: fluent, no paraphasic errors, comprehension/repetition/naming intact ??? Praxis: demonstrates brushing teeth and screwing a light bulb when verbally asked Orientation: The patient was oriented to year, month, day, season, clinic, floor, city, county, state. The patient was disoriented to date. This suggests minimal orientation problems. Registration and memory: The patient registered 3 out of 3 words on her first try and could remember 2 out of 3 words after a short period of time. She was not able to remember a written instruction a few minutes later. This suggests mild to moderate memory problems. Attention: The patient was not able to do serial 7 subtractions from 100 down to 65 and made 4 errors errors. She was asked to spell the word WORLD backwards and did not make errors. This suggests moderate attentional problems. Language: The patient was shown or looked at pictures of a pencil, watch, rhinoceros, harp and was able to identify and name pencil, watch, rhinoceros, harp. She was able to repeat a short phrase correctly. She was able to follow a 2 out of a 3-step command. She was able to read and comprehend sentences well. She was able to write a sentence correctly. The patient was able to name 10 different countries located anywhere in the world out of 12 (additionally named two continents). This suggest minimal language problems. Abstractions: The patient was abstract in explaining similarities. She was not concrete with her answers. She was able to explain an answer that made sense. This suggests no abstraction problems. Calculations: The patient was able to calculate how many quarters are in $6.75. The patient was notable to calculate how much change was received back from $5 when buying $3.05 of groceries. The patient was not able to perform serially seven subtractions perfectly. This suggests moderate to severecalculation problems. Visuospatial skills: The patient was able to copy a 2-dimensional interlocking pentagon figure correctly. She was not able to copy a three dimensional letter robbins. The patient was not able to draw a clock and put the hands in for 10 minutes before 11:00 using [employer] but was able to do this correctly on a paper. This suggests mild to moderate visuospatial problems. Executive functioning: The patient was able to perform a modified Trails B task. She was not able to figure out a problem solving task. This suggests moderate executive functioning problems. MMSE 27/30 MARQUEZ Cranial Nerves:??? II,III: VFF, NOEL III,IV,: EOMI, no ptosis, normal saccades/pursuits ??? V: sensation intact to light touch ??? VII: facial strength intact/symmetric smile VIII: hears finger rub bilaterally ??? IX,X: voice normal, palate elevates symmetrically ??? XI: normal shoulder shrug ??? XII: tongue protrudes midline without atrophy or fasciculation ??? Motor ??? Strength was 5/5 throughout including: shoulder abduction, flexion and extension at the elbows, fingers, hips, knees, as well as ankle dorsiflexion and plantarflexion. No pronator drift. Normal bulk and tone; no tremor, rigidity, cogwheeling or bradykinesia. ? Reflexes ?2+ and symmetric throughout. Plantar responses flexor, no Guardado's. No frontal release signs. Sensation ??? Normal to light touch, temperature and vibration. Proprioception intact. ? Coordination ??? [id number], [id number] Intact without dysmetria, normal mirroring without past-pointing, MONSE intact.? Gait ??? Able to arise from chair and sit back down without using arms. Posture, stance, stride, and arm swing normal. Tandem gait intact. Heel and toe-walking intact.? Able to right self in less than twosteps when pulled backwards from the shoulders. Testing Laboratory testing: No results found for: SODIUM, POTASSIUM, CHLORIDE, CO2, BUN, CREATSERUM, GLUCOSE No results found for: ALT, TRANSFERASEA, AST, GGT, GAMMAGT, ALKPHOS, BILITOTAL, BILIDIRECT No results found for: WBC, WBCCOUNT, WBCFETAL, HGB, HCT, PLATELET, MCV No results found for: HGBA1C No results found for: IRON, FERRITIN No results found for: TSH, SLN05IOX, KGS89OKN, TSHBASELINE, TSHULTRASEN, T3FREE, M4KAXNKND, V1FCPVE, K0DEYHFQ, T4FREE, TPOAB No results found for: CHOLESTEROL, TRIG, HDL, LDLCALC, LDLDIRECT No results found for: B12, FOLATERBC, FOLATE, 511888, HOMOCYSTEINE No results found for: RPR, [id number], CAIO, ESR, CRP Neuroimaging: None Neuropsychological Evaluation Dr. Linder 10/20/23 The patient performed at or near expectation across most cognitive domains. However, novel problemsolving and mental calculation were below normal limits. Behaviorally, the patient was cooperative but exhibited a limited frustration tolerance and perseverated on prior task instructions during onetest. She also was quick to become irritated towards her partner when he was asked a few questions during the interview, and her insight and judgment appeared at least slightly below normal. While she endorsed minimal overall distress, her partner expressed concern regarding irritability/agitation and rated her behavior as falling well outside normal limits in terms of apathy, disinhibition, and e xecutive functioning. Taken together, a tentative diagnosis of Unspecified Neurocognitive Disorder is offered given observed impairment in problem solving combined with difficulty with mental math and perseveration on prior task instructions during a working memory task. That said, these results do not clearly explain the cognitive complaints described by the patient or her partner. With regard to etiology, emotional distress, disrupted sleep, and polypharmacy represent primary risk factors that may explain at leastsome of the patient's cognitive complaints. It is currently unclear whether distress alone explainsher partner's observations of behavioral changes, especially since the patient asserted that her mood is much improved and seems to have limited awareness of the extent of her irritability. Inconsistent medication adherence could explain her cognitive fluctuations. There is a minor chance that the patient's prior brain tumor diagnosis is relevant to her current clinical presentation; recent neuroimaging results would be necessary to further assess that specific risk factor. It will also be important to rule out a brain tumor as a contributing factor given her reported history. Finally, the etiology of the patient's visual illusions/hallucinations is currently unclear in the absence of severe distress or parkinsonism. Impression: Bebeto Dejesus is a 73 y.o. r-handed female with an unclear history of brain tumor, MARCELLA on CPAP, hypothyroidism, adrenal insufficiency, rheumatoid arthritis, MGUS who presents today to [facility] because of concerns related to stress. Patient was unaccompanied. The patient and family describe at least a 20 year history of dysexuctive symptoms in the context of stress. There is no impairment in iADLs and no impairment in basic ADLs. On MMSE and MARQUEZ, she haddifficulties on tasks of executive functioning. Scores were 27/30 and 15/22, respectively. Neuropsyc hological evaluation revealed near expectation across most cognitive domains. However, novel problem solving and mental calculation were below normal limits. Behaviorally, the patient was cooperative but exhibited a limited frustration tolerance and perseveration. A diagnosis of unspecified neurocognitive disorder was made. This evaluation was also revealing for significant irritability especially as reported by partner. This partner is no longer present in her life and she reports mild irritability that has improved outside of this relationship. There were no notable findings on elemental neurologic exam. Will proceed with lab work up to rule out reversible causes of cognitive changes. MRI Brain will help to further rule out vascular contribution, other intracranial causes, and to identify any patterns of atrophy that would be useful in narrowing differential diagnosis. Recommendations and Care Plan: Labs: B12 and MMA and folate (provided with printed orders to get drawn at home) CMP was wnl, CBC showed anemia with PCP Imaging/Studies: MRI Brain wwo Medications: no changes Considering reducing the dose of wellbutrin, modafinil, montelukast Avoid (unless strongly indicated): anticholinergics, sedative/hypnotics, opioids, general anesthesia. Previously tried cognitive enhancing medications: Donepezil: No Rivastigmine: No Galantamine: No Memantine: No Subspecialty Referrals: none today Follows with [facility] Home Safety: No current concerns Discussed Advanced Care Planning Healthcare power of senior piping designer in place: yes- son, Agusto Please send us a copy of your healthcare power of senior piping designer documents. This can be faxed to or mailed to [facility] [address] [place] [phone]. Financial power of senior piping designer in place: yes- daughter Living will in place: yes Primary caregiver: self As we discussed, we have a high school social studies teacher available if additional resource needs develop. Control of vascular risk factors (blood pressure, cholesterol, diabetes, smoking cessation) aregiver support, e.g. burnout Aerobic exercise as safely tolerated Goal 150 minutes per week: 30 minutes per session, 5 sessions per week) Consumption of a heart healthy diet (e.g. Mediterranean diet) Regular engagement in social and intellectually-stimulating activities She will continue to be monitored over time to manage and treat her condition. We will assess for changes in cognitive and functional abilities and behavioral changes. Medication changes will be discussed and recommended if warranted. We reviewed and discussed factors that could contribute to cognitive impairment. Medications were reconciled and reviewed for high risk medications. We discussed caregiver and social issues includingcaregiver knowledge and needs, social supports and resource availability. We discussed activities of daily living and home safety issues. Follow up in about [address] Bustamante for a follow up visit. Call our office with any questions or concerns between appointments: Roger Bustamante MD 02/03/2024 [facility] The above impression was discussed at length with the patient and family and their questions were answered. We discussed diagnosis, prognosis and course, treatment and management options. I have discussed today the risks and benefits of all his psychopharmacological medications with the patient, family or legally authorized ambulatory services representative including, but not limited to, any black box warnings. Patient and family verbalized understanding and agreement with plan. 60 minutes was spent on [id number] visit with the patient/family including counseling and care coordination, as well as on chart review and documentation. Additionally, 37 minutes was done on NBSE (26349) as described above. documented in this [facility]06-25-2024 Instructions* Patient Instructions* Roger Bustamante MD - 02/03/2024 1:10 PM EDT Please get MRI Brain done documented in this [facility]06-12-2024 History of Present illness Narrative* Angélica Ingram MD - 01/21/2024 11:00 AM EDT Images from the original note were not included. Pt is here for follow up of sleep Mild MARCELLA- AHI 10 based on study in 2011 at [facility] Sleep- pt has resmed airsense 10 autoset 5-20. Notconnected so not able to get a download DME: [employer] (was [employer]- in [place]) Mask: full face-dreamwear full Pt has also has MMP- adrenal insufficiency, has personal stressors, memory loss, visual halluncinatios- was referred for neuropsychiatric testing- that appt was 10/20/23- dx'd with non-specific neurocogn disorder . Neurology appt is pendng for later in January 2024. 3. In 2005-pt was given modafinil for sleepiness but had a bad reaction to it so uses it sparingly for long drives- says she has the same bottle from 2005. has not taken it in 10 yrs Today, pt feels her sleep is better since stress is better. Pt uses CPAP without issue. Does benefit pt. Does feel headgear stretches out quickly. Pt does get headgear every 6 months. Pt feels she isgetting more sleep. Pt goes to bed 1-3am- asleep in few min (takes flexeril at night due to pain (back and shoulder)- sleeps 6 hours then up for the day. Can doze if idle. Cannot sleep longer than 6 hour due to pain. Ptdoes get injections as well in shoulder and back. Pt does not doze with driving for almost a year- was on modafinil in the past for this but only used it on long drives which she does not do those drives anymore. Pt had memory test in october and has upcoming appt in January. Pt feels memory is improving with stressresolved as well. Pt also feels welbutrin helps. Data reviewed today PAP data- pt adherent and well treated with a low residual AHI OARRS reviewed and c/w med list Questionnaires have been reviewed ESS is c/w sleepiness; FOSQ is c/w sleepiness affecting daily activity 05/26/2023 1:27 PM 09/24/2023 10:00 AM 01/21/2024 11:00 AM Sleep Medicine Patient Reported Outcomes ESS 13 ESS (manually scored) 13 19 FOSQ 7.5 FOSQ (manually scored) 10 13.35 TUTU 19 MVAP 0.544 Review of Systems: Pertinent items are in HPI Past medical history: She has a past medical history of Adrenal insufficiency, GERD (gastroesophageal reflux disease), and Insomnia. Past surgical history: She has no past surgical history on file. Social history reports that she has never smoked. She has never used smokeless tobacco. She reports that she does not drink alcohol and does not use drugs. Family history family history is not on file. Medications: Outpatient Medications Prior to Visit Medication Sig Dispense Refill buPROPion 150 MG tablet XL Cobalamin Combinations (Opurity B12/Folic Acid) 1000-200 MCG tablet Take 2,000 mcg by mouth daily. Cyclobenzaprine 10 MG tablet Take 1 tablet by mouth at bedtime. fluticasone 50 MCG/ACT Suspension nasal spray 2 sprays by Nasal route daily. Hydroxychloroquine 200 MG tablet Take 1 tablet by mouth 2 times daily. lidocaine 20 mg/ml Solution 1 mg/kg by Intravenous route once. In neck back and shoulders MAGNESIUM GLUCONATE PO Take by mouth. METHOTREXATE IJ Inject 0.5 mL as directed once a week. Modafinil (Provigil) 200 MG tablet Take 1 tablet by mouth daily. Will take PRN Montelukast 10 MG tablet Take 1 tablet by mouth daily. Ozempic, 0.25 or 0.5 MG/DOSE, 2 MG/1.5ML Solution Pen-injector Pantoprazole [address] tablet DR Take 1 tablet by mouth daily. potassium chloride 10 MEQ Cap CR Take 1 capsule by mouth 2 times daily. predniSONE 5 MG tablet Take 1 tablet by mouth daily. Sucralfate 1 g tablet Take 1 tablet by mouth every 6 hours. Thyroid 30 MG tablet Take 1 tablet by mouth daily. One tab daily and 2 tabs on Sat and Sun triamcinolone 0.025 % Cream cream ursodiol 300 MG capsule Take 1 capsule by mouth every 12 hours. No facility-administered medications prior to visit. Allergies: She is allergic to dilantin [phenytoin], toradol [ketorolac tromethamine], and morphine. Exam BP 127/62 Pulse 100 Wt 104.5 kg (230 lb 6.4 oz) SpO2 97% BMI 37.76 kg/m Smoking Status Never Gen: . No acute distress Cognition: . Able to give details of own history Motor: no focal motor deficits Impression/Plan MARCELLA- on auto CPAP- adherent and benefiting with a low residual AHI- will continue pressure settingsof 5-20. The headgear gets loose- she will try to get extra headgear from [employer]. 2. Hypersomnia- can have issues with drowsy driving if driving long distances. Will order [id number] to use as needed for driving. This is likely in part due to insufficient sleep. 3. Insufficient sleep- pt can only sleep 6 hours due to chronic pain- she takes medication and getsinjections for this. Follow-up one year. Pt is being followed chronically for MARCELLA on CPAP. * Sihma Raines MA - 01/21/2024 11:00 AM EDT This Scheduling Analyst verified the patients name and date of . [facility] Instructions* Patient Instructions* Angélica Ingram MD - 01/21/2024 11:00 AM EDT Images from the original note were not included. Patient information on the evaluation procedure for sleep apnea: 1. You are going to have a portable sleep study: This is a home sleep study that will be done to see if you have obstructive sleep apnea. You will have a flow monitor on your nose, belt on your chest and stomach and a oxygen monitor on your finger.Please do not wear nail emirati on day of the study as it will interfere with the oxygen reading probe that s placed on your finger during the study. The office will make an appointment for you to go to our sleep office at [facility] on [facility] to receive and be shown how to place the device on yourself. You will then take home the device, put it on and sleep with it that night. It must be returned the next day. 2. The sleep office will call you with the results a week after the study. If the study showed that you have obstructive sleep apnea you will be told of the next step in yourcare. Commonly the recommended treatment is CPAP Therapy.If you agree to this therapy and you receive your CPAP before your next appointment, please bring it with you to your follow-up appointment. 3. Patients who have obstructive sleep apnea on the sleep study and have chosen to try CPAP: A home equipment company will contact you to set you up with a CPAP machine and fit you for a mask. Please bring your CPAP, the mask and all supplies including the electrical cord with you to all your follow up appointments with the sleep physician Please keep trying to use your CPAP until you have seen in the sleep office in follow up as a lot of the problems patients have with CPAP can be addressed and corrected by your sleep provider. Contact Information: [facility] Sleep Laboratory: [phone] [facility] Sleep heart Clinic: [phone] [facility] Sleep Clinic: [phone] Please bring your CPAP equipment and smart card to all your sleep appointments. What are the risk factors for Obstructive Sleep Apnea (MARCELLA)? Obesity Snoring Daytime sleepiness Increasing age Male gender Taking sedating medications Alcohol use Hypertension Stroke Diabetes Smoking What is MARCELLA? People with MARCELLA experience recurrent episodes during sleep when their throat closes or significantly narrows and they cannot inhale air into their lungs. This happens because the muscles that normally hold the throat open during wakefulness relax during sleep and allow it to narrow (Figure 1 ). When the muscles relax too much, trying to inhale can cause the throat to completely close and air cannot pass at all for at least 10 seconds. This is an obstructive apnea (Figure 2). An obstructive hypopnea occurs when the throat is partially closed for at least 10 seconds and airflow is decreasedso much that oxygen in the blood starts to be fall (Figure 3). MARCELLA is measured by how many apneas and hypopneas we have per hour. This is called an Apnea HypopneaIndex (AHI). AHI<5 is negative for MARCELLA AHI 5-15 is mild MARCELLA AHI 15-30 is moderate MARCELLA AHI of >=30 is severe MARCELLA How does MARCELLA affect me? MARCELLA goes beyond affecting just our quality of sleep. It interferes with many other systems of our body. Increase in blood pressure Worsened control of diabetes Daytime sleepiness and fatigue Irritability Difficulty concentrating or remembering facts Difficulty losing weight Swelling in the legs Frequent awakenings to urinate Increased risk of stroke Increased risk of irregular heart rhythm Increased risk for cardiovascular disease Decreased sexual drive Morning headaches Increased risk of motor vehicle accident Portable sleep study How is MARCELLA treated? The first line of treatment for MARCELLA is continuous positive airway pressure (CPAP). A CPAP device provides air though a mask that fits over your nose or mouth and nose. The CPAP provides enough airflow to prevent the airway from collapsing when sleeping. This air can be humidified for comfort. Newermasks fit comfortably over the nasal opening rather than over the nose. It is important that CPAP is used regularly each night for optimal results. Patients should notice improvement in sleepiness within the first week or two. 2. Several second line therapies exist for MARCELLA. Behavioral therapy for MARCELLA includes weight loss andpositional therapy which is avoidance of sleeping on ones back. Significant improvement in MARCELLA can occur with as little as 10% weight loss. Weight Loss Weight Loss is an important part of treating obstructive sleep apnea. Being at a healthy weight is improtant to prevent and/or facilitate treatment of chronic conditions such as heart disease and diabetes in addition to obstructive sleep apnea. This is optimally achieved through a healthy diet and exercise program that can be maintained [facility] [facility]. The [facility] does have a Living Well Program to help patients achieve their weight loss goals in a healthy and safe manor. This consists of a 6 month program that focuses on weight loss, nutrition, stress management and exercise. Location [facility] Center for Wellness and Prevention First floor of the [place] [id number] For more information please call [phone]. 3. Dental devices that hold the lower jaw or tongue forward during sleep can also relieve MARCELLA. These devices are not always as effective as CPAP but are preferred by some patients. 4. Upper airway stimulation given by an implantable device is a treatment option for moderate to severe obstructive sleep apnea in those who cannot tolerate CPAP. It reduces MARCELLA severity by about 55-60%. You must hae a body mass index (BMI) less than 35 to be considered for this therapy. 5. Surgical procedures can reshape structures in the upper airways or surgically reposition the jaw, and may be helpful in some patients. It is often hard to predict how effective a surgical treatment will be in reducing or eliminating sleep apnea. Additional Information [place] Academy [employer] (www.aasmnet.org) National Sleep Foundation (www.sleepfoundation.org) [place] Sleep Apnea Association (www.sleepapnea.org) National Heart, Lung, and Blood [place] (www.nhlbi.nih.gov) [employer]pto[employer] (www.uptodate.com/patients) Drowsy Driving Tips These suggestions will help prevent you from the risk of drowsy driving. 1. If you feel tired or drowsy do not drive. Sleepiness is a major cause of motor vehicle accidentsand accounts for 40% of all fatal crashes reported on the [facility]. No matter how much you think you can control sleepiness, you can't. 2. Ensure you follow your doctor's advice about the treatment for your sleep disorder. For example,if you have sleep apnea and use CPAP, ensure you use it fully the night before your trip. 3. Get a good night's sleep before driving. Do not reduce your sleep time if you plan a long drive the next day. Get to bed early and do not stay up late packing. 4. Avoid alcohol both the night before your trip and the during your trip. Alcohol will disrupt sleep and make you more tired the next day. Sleepiness and alcohol are additive in increasing impairment of your driving ability. 5. Avoid any sedative medications, including sedative antihistamines that are often contained in cold or allergy medications, the night before you drive as they may have long lasting effects the nextday. 6. Travel during non-sleeping hours. Accidents due to sleepiness are more common during the nighttime hours. 7. If sleepy, stop and rest. Drink coffee, walk around or have a brief nap in your car if you are sleepy. Have a 10-15 minute break after every [address]. 8. [address] with a title specialist. Share the driving. Relax in the back seat until it is your time to sharethe driving again. documented in this encounterU [facility] Discharge summary Author Cortez Leong [facility] November 27, 2023 3:23pm Note Date/Time November 27, 2023 1:5 6pm [facility] Medical Records Department [address] [place] [address] Emergency Department Summary 11/27/23 MR#: [id number] Acct: [id number] Name: LYNSEYBEBETOJOSI CONN Rep #:[id number] : 1950 72 From: Cortez CHU: Dr. Ronnie Hull MD Status:R EG ER Location: ED HPI History of Present Illness Chief Complaint: Fall Informant: patient and family Narrative Narrative: 72-year-old female presenting to the emergency room with chest pain. Patient states she fell 2 nights ago striking her chest. She states she was seen at [facility] diagnosed with a broken finger and placed in a splint. She states she had rib x- rays was concerned about the reading that she saw online. She states it said that she had atelectasis and something else and that no doctors will tell her what it means. She states that she hates [facility]. Her primary care doctor is [facility]. She states she was post to see pain management this morning but could not she states that she supposed to see orthopedics but was unable to. States her chest hurts anytime she goes to move. Her son who is a nurse states that she has adrenal insufficiency and wonders ifshe is having adrenal crisis because this is how she acts. She denies any infectious symptoms. Patient notes pain in her left foot. She states she sees bruising wonders about the fifth metatarsal. When I tell her it is not she seems relieved. It is unclear exactly where she is seeing the bruising at but Ibelieve she is talking about her second and third toes. She has strapped sandals on so it does not hurt her foot when she puts it on like it does shoes. Patient has taken a [place] each of the past 2 nights that she gets from pain management for vacations. She has not taken any today. [facility] Medical History Abnormal bowel movement Abnormal laboratory test Abrasion, left knee, initial encounter Acute bronchitis Adenomatous polyps Adrenal insufficiency Airway polyps Anemia Anxiety and depression Arthritis Asthma Back pain Basal cell carcinoma Bilateral lower extremity edema Blood disorder BMI greater than 40 Borderline type 2 diabetes mellitus Breast cancer screening Bronchitis Cancer Cardiology follow-up encounter Cellulitis of right lower leg Chest wall contusion Chronic neck and back pain Chronic pain Constipation Contusion of left knee Contusion of right middle finger COVID-19 virus detected (05/09/20) CPAP (continuous positive airway pressure) dependence CSA (central sleep apnea) Depression Dermatitis Difficulty balancing Difficulty balancing when standing Difficulty swallowing Dyspnea Essential (primary) hypertension Fatigue Fatty liver disease, nonalcoholic FH: colon cancer in first degree relative <60 years old Flu vaccine need Fracture of proximal phalanx of right middle finger Gastric reflux GERD (gastroesophageal reflux disease) [place] Health care maintenance History of colon polyps History of echocardiogram History of edema History of stress test Hypersomnia Hypertension Hypokalemia Hypopituitarism Hypothyroidism Incontinence Injury of head and neck Limb weakness Low magnesium level Lung disease Macromastia Malaise and fatigue Meniere disease MGUS (monoclonal gammopathy of unknown significance) Migraines Muscular abdominal pain in right flank Non-smoker Obesity Obesity Osteoarthritis Osteopenia Otitis media Pneumonia Radiculopathy Restless legs Rheumatoid arthritis Rheumatoid arthritis Screening for diabetes mellitus Shoulder pain Sinusitis Sjogren's disease SOB (shortness of breath) Sternum pain Strain of right middle finger Thyroid disease Type 1 diabetes mellitus Unsteady gait URI, acute Vitamin D deficiency Wears glasses Home Medications folic acid 0.8 mg capsule 0.8 mg PO BID supplement 07/14/18 [History Last Taken 01/12/20] hydroxychloroquine 200 mg tablet (Plaquenil) 200 mg PO BID ra 09/01/18 [History Last Taken 10/24/21 09:00] cyclobenzaprine 10 mg tablet 10 mg PO QHS 12/22/19 [History Last Taken 01/12/20] ascorbate calcium (vitamin C) 500 mg tablet 500 mg PO DAILY 04/08/20 [History Last Taken Unknown] zinc 50 mg tablet 50 mg PO DAILY 04/08/20 [History Last Taken Unknown] Handicap Placard #1 ea 09/11/20 [Rx Last Taken Unknown] thyroid (pork) 15 mg tablet ([place] Thyroid) 15 mg PO DAILY 09/11/20 [History Last Taken 10/24/21 09:00] methotrexate sodium 25 mg/mL injection solution 25 mg subcut QWEEK 09/25/20 [History Last Taken Unknown] triamcinolone acetonide 0.025 % topical ointment 1 applic topical DAILY PRN rash#454 grams 05/07/21 [Rx Last Taken Unknown] fluticasone propionate 110 mcg/actuation HFA aerosol inhaler (Flovent HFA) 1 puff inhalation BID 06/12/21 [History Last Taken 10/24/21 09:00] magnesium oxide 500 mg capsule 500 mg PO DAILY 09/11/21 [History Last Taken Unknown] prednisone 5 mg tablet 5 mg PO DAILY #14 tabs 02/01/22 [Rx Last Taken Unknown] montelukast 10 mg tablet 10 mg PO QPM #90 tabs 03/25/22 [Rx Last Taken Unknown] ursodiol 300 mg capsule 300 mg PO BID #180 caps 10/07/22 [Rx Last Taken Unknown] vitamin E (dl, acetate) 180 mg (400 unit) capsule See Rx Instructions PO DAILY #90 caps 10/07/22 [Rx Last Taken Unknown] Handicap Placard #1 ea 11/22/22 [Rx Last Taken Unknown] hydrocodone-acetaminophen 5-325mg 5mg-325mg 1 tab PO 11/22/22 [History Last Taken Unknown] cholecalciferol (vitamin D3) 1,250 mcg (50,000 unit) capsule 1,250 mcg PO .EVERYOTHER WEEK 03/05/23 [History Last Taken Unknown] ipratropium 0.5 mg-albuterol 3 mg (2.5 mg base)/3 mL nebulization soln 3 ml inhalation Q4H PRN PRN SOB &/OR WHEEZING #180 mL 05/20/23 [Rx Last Taken Unknown] celecoxib 200 mg capsule 200 mg PO DAILY 07/22/23 [History Last Taken Unknown] potassium chloride 10 mEq capsule,extended release 20 meq PO BID 07/22/23 [History Last Taken Unknown] pantoprazole 40 mg tablet,delayed release 40 mg PO BID #180 tabs 08/13/23 [Rx Last Taken Unknown] bupropion HCl 150 mg 24 hr tablet, extended release 150 mg PO QAM #90 tabs 08/14/23 [Rx Last Taken Unknown] ferrous sulfate 325 mg (65 mg iron) tablet 325 mg PO Q OTHER DAY #90 tabs 09/10/23 [Rx Last Taken Unknown] sulfasalazine 500 mg tablet,delayed release 1 g (2 x 500 mg) PO BID 30 days #120tabs 09/11/23 [Rx Last Taken Unknown] amiloride 5 mg-hydrochlorothiazide 50 mg tablet 0.5 tab PO DAILY #90 tabs 09/24/23 [Rx Last Taken Unknown] Allergy/AdvReac Type Severity Reaction Status Date / Time milk Allergy Mild Diarrhea Verified 11/25/23 16:09 phenytoin sodium Allergy Mild Rash Verified 11/25/23 16:09 [From Dilantin] phenytoin sodium extended Allergy Mild Rash Verified 11/25/23 16:09 [From Dilantin] ketorolac tromethamine Allergy Anaphylaxis Verified 11/27/23 11:26 [From Toradol] melon Allergy NEEDS Verified 11/25/23 16:09 FOLLOW-UP morphine AdvReac Severe Other Verified 11/25/23 16:09 Family History Father Cancer father passed of lung CA at 55 Mother Dementia Osteoarthritis COPD (chronic obstructive pulmonary disease) Brother Myocardial infarction, Onset Age: 49 Aunt Multiple sclerosis Sister Colon cancer Breast cancer Aunt Celiac disease Surgical History H/O dilation and curettage History of 2 sections History of carpal tunnel release History of carpal tunnel surgery History of cataract surgery History of cholecystectomy History of hysterectomy History of left heart catheterization (01/14/20) History of orthopedic surgery History of tonsillectomy and adenoidectomy Hx of colonoscopy Hx of oral surgery S/P bunionectomy S/P excision of Molina's neuroma S/P knee surgery Status post total right knee replacement Social History Smoking Status: Never smoker alcohol intake: current alcohol intake frequency: a few times a month Alcohol type: wine substance use type: does not use what type of physical activity do you participate in: walking, bicycling and swimming frequency: 3-4 times per week 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 [employer] ER ROS ROS ED Constitutional Constitutional ED: Denies chills, fever(s) or weight loss Eyes Eyes: Denies change in vision or diplopia ENT ENT ED: Denies ear pain, rhinorrhea or sore throat Cardiovascular Cardiovascular: Reports chest pain; Denies orthopnea, palpitations or racing heartbeat Respiratory/Chest Respiratory/Chest: Denies cough, dyspnea or orthopnea Gastrointestinal Gastrointestinal: Denies abdominal pain, diarrhea, nausea or vomiting Genitourinary Genitourinary ED: Denies dysuria, hematuria or urinary frequency Musculoskeletal Musculoskeletal: Reports other Details: Left foot pain right finger pain ; Denies arthralgias or myalgias Integumentary Denies abscess or rash Neurologic Neurologic: Denies headache(s) or weakness Psychiatric Psychiatric: Reports anxiety; Denies depression, suicidal ideation or suicidal thoughts Endocrine Endocrinology: Denies polydipsia, polyphagia or polyuria Allergic/Immunologic Allergic/Immunologic ED: Denies mouth swelling, tongue swelling or urticaria EXAM Physical Exam Const Vital Signs: 11/27/23 11:19 11/27/23 11:24 11/27/23 13:55 Temperature 98.1 F Temperature Source Temporal Pulse Rate 87 78 Respiratory Rate 16 16 Respiratory Effort Normal Non-Labored Respiratory Depth Normal Respiratory Pattern Normal Blood Pressure 147/79 H 126/78 H Blood Pressure Mean 101 94 Pulse Ox 97 97 98 Oxygen Delivery Method Room Air Room Air Room Air Positive well nourished, well developed and obese General Appearance ED: well developed Nutritional Appearance: obese HEENT Reports normocephalic, head/scalp atraumatic and moist mucous membranes Eyes PERRL and EOMs intact bilaterally Neck full ROM, no lymphadenopathy, supple and no JVD Neck Narrative: Painful range of motion of her neck grabbing her chest states it hurts to turn to the right. Chest Wall Chest Narrative: Anterior chest wall with tender but I do not appreciate any bruising or swelling Resp normal respiratory effort and clear to auscultation bilaterally Cardio regular rate, regular rhythm and no murmurs GI normal to inspection, nondistended, normoactive bowel sounds and non-tender Palpation: soft Back/Spine no CVA tenderness and normal ROM Extremity Extremity Narrative: Right second and third fingers are in a splint aluminum foam with Sean wrap. Left foot second and third toes tender to palpation down onto the distal metatarsal MTP joint region General Extremety ED: Negative for edema General Extremity: Negative for edema Neuro oriented x3 and CN's II-XII intact bilaterally Sensorium / Orientation: alert Motor Exam: strength 5/5 throughout Psych mental status grossly normal Mood & Affect: anxious; Negative for depressed or tearful Skin no rashes or lesions noted and no wounds MDM MDM MDM Narrative Medical decision making narrative: CT of the chest does not demonstrate any obvious rib fracture or sternal fracture pneumothorax pulmonary contusion. Clinically I think the chest wall iscontused given its significant tenderness. My independent interpretation of theleft foot is no acute fracture. 42 point given recent dental work and the family's notes that they are concerned this could be adrenal insufficiency went ahead and hydrated her and gave her a dose of hydrocortisone. Hemoglobin 11.6 white count of 7.9. LFTs are normal glucose 98 potassium 3.4. She is on some hydrochlorothiazide. I do not think we necessarily need to patient write a noteto the place that he is already patient was instructed to increase potassium in her diet she can have this rechecked as an outpatient. History & Record Review Discussion w/independent historian: Patient and Family Lab Data Attestation: I reviewed the patient's lab results. Labs: Laboratory Results - last 24 hr 11/27/23 14:20 WBC 7.9 RBC 3.58 L Hgb 11.6 L Hct 35.6 L MCV 99.4 H MCH 32.4 H MCHC 32.6 RDW Std Deviation 48.2 H RDW Coeff of Rosamaria 13.2 Plt Count 310 MPV 9.6 Immature Gran % (Auto) 0.400 Neut % (Auto) 44.9 L Lymph % (Auto) 45.5 H [place] % (Auto) 6.3 Eos % (Auto) 2.5 Baso % (Auto) 0.4 Absolute Neuts (auto) 3.6 Absolute Lymphs (auto) 3.60 Nucleated RBC % 0 Sodium 141 Potassium 3.4 L Chloride 109 H Carbon Dioxide 27.0 Anion Gap 5 BUN 21 H Creatinine 0.76 Est GFR (MDRD) Af Amer 96 Est GFR (MDRD) Non-Af 79 BUN/Creatinine Ratio 27.5 H Glucose 98 Calcium 8.9 Total Bilirubin 0.70 AST 15 ALT 16 Alkaline Phosphatase 91 Total Protein 6.9 Albumin 4.0 Globulin 2.9 Albumin/Globulin Ratio 1.4 Radiography Diagnostic Testing: Clinical Impression(s) from Imaging Studies Chest CT 11/27/23 11:49 IMPRESSION: No sternal fracture is seen although there is evidence of a 8.8 mm cystic density in the manubrium on the left side of the midline. Electronically Signed: Billy Kaplan MD at 13:11 EDT , Foot X-Ray 11/27/23 11:49 IMPRESSION: Degenerative changes. No fracture is seen. Calcaneal spurs. Electronically Signed: Billy Kaplan MD at 13:13 EDT , Discharge Plan Triage Chief Complaint: Fall ED Provider: Cortez Leong Dx/Rx/DC Orders Clinical Impression: Chest wall contusion, Adrenal insufficiency, Anxiety and depression, Contusion of foot, left Instructions: ED Chest Wall Contusion Prescriptions: No Action folic acid 0.8 mg capsule 0.8 mg PO BID hydroxychloroquine [Plaquenil] 200 mg tablet 200 mg PO BID cyclobenzaprine 10 mg tablet 10 mg PO QHS zinc 50 mg tablet 50 mg PO DAILY ascorbate calcium (vitamin C) 500 mg tablet 500 mg PO DAILY thyroid (pork) [[place] Thyroid] 15 mg tablet 15 mg PO DAILY (DME) Handicap Placard See Rx Instructions .Route .MEDSUPPLY Qty: 1 0RF Rx Instructions: As directed, length of time 3 years Flovent HFA 110 mcg/actuation HFA aerosol inhaler 1 puff inhalation BID magnesium oxide 500 mg capsule 500 mg PO DAILY hydrocodone-acetaminophen 5-325 mg tablet 1 tab PO (DME) Handicap Placard See Rx Instructions .ROUTE .MEDSUPPLY Qty: 1 0RF Rx Instructions: As directed, length of time 3 years cholecalciferol (vitamin D3) 1,250 mcg (50,000 unit) capsule 1,250 mcg PO .EVERY OTHER WEEK Rx Instructions: This is prescribed by Dr. Kaba celecoxib 200 mg capsule 200 mg PO DAILY potassium chloride 10 mEq capsule, extended release 20 meq PO BID ferrous sulfate 325 mg (65 mg iron) tablet 325 mg PO Q OTHER DAY Qty: 90 3RF methotrexate sodium 25 MG/ML solution 25 mg subcut QWEEK prednisone 5 mg tablet 5 mg PO DAILY Qty: 14 0RF Rx Instructions: start after finishing the 20 mg tabs (three per day) triamcinolone acetonide 0.025 % ointment 1 applic topical DAILY PRN (Reason: rash) Qty: 454 1RF montelukast 10 mg tablet 10 mg PO QPM Qty: 90 3RF ursodiol 300 mg capsule 300 mg PO BID Qty: 180 3RF vitamin E (dl, acetate) 180 mg (400 unit) capsule See Rx Instructions PO DAILY Qty: 90 3RF Rx Instructions: 800 IU orally daily ipratropium-albuterol 0.5 mg-3 mg(2.5 mg base)/3 mL solution for nebulization 3 ml inhalation Q4H PRN PRN (Reason: SOB &/OR WHEEZING) Qty: 180 6RF pantoprazole 40 mg tablet,delayed release (DR/EC) 40 mg PO BID Qty: 180 2RF bupropion HCl 150 mg tablet extended release 24 hr 150 mg PO QAM Qty: 90 1RF sulfasalazine 500 mg tablet,delayed release (DR/EC) 1 g PO BID 30 Days Qty: 120 3RF amiloride-hydrochlorothiazide 5-50 mg tablet 0.5 tab PO DAILY Qty: 90 1RF Primary Care Provider: Ronnie Hull Referrals: Ronnie Hull MD [Primary Care Provider] - 1 Week Disposition Disposition: Home, Self Care What to do if you have Problems For any increased pain, shortness of breath, bleeding, nausea or vomiting, chestpain, or any unexpected problems, contact your Primary Care Provider. Call [facility] ([phone]) or report to the closest Emergency Room. Call 911 if necessary. 11/27/23 1523 <Electronically signed by Cortez Leong DO> Cosigner Signature (if applicable): CC: Dr. Ronnie Hull MD ~ Signed [facility] Work Phone: [phone] History of Present illness Narrative* Xena Linder, PhD - 11/03/2023 1:30 PM EDT NEUROPSYCHOLOGY FEEDBACK NOTE Name: Bebeto Dejesus Date of : 1950 Date of Evaluation: 10/20/2023 Date of Feedback: 11/03/2023 Ms. Dejesus and her partner attended a feedback appointment to review her recent Neuropsychology evaluation results. The patient was engaged during the appointment. She reported that the results made sense. We discussed etiology in detail. We then reviewed treatment recommendations. 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 She also reported that she has always struggled with math. Based on our discussion today, her primary risk factors for cognitive issuesremain likely distress, chronic pain, and poor sleep. The patient reported that she plans to take over managing her medications because she believes thather blister packaging service makes errors and does not request refills for her yet also does not inform her when she runs out. I reviewed the importance of taking her medications as prescribed. I also encouraged her to only fill 1-2 weeks of medication at a time, to use a check sheet every time she sorts them to minimize errors, and to make sure that she does so in a minimally distracting environment to reduce errors. We also talked about the importance of maintaining a consistent sleep/wake schedule. Finally, I mentioned that she share with [facility] the results of a head CT that occurred in the last couple years and follow-up with her appointments with Dr. Bustamante for further workup. Sincerely, Xena Linder, PhD, [facility] Clinical Neuropsychologist CPT code: 72743 (additional unit) Time to complete visit and documentation: 1:50pm to 2:50pm ICD-10 Code: R41.3 [facility] History of Present illness Narrative* Yomaira Whipple - 10/20/2023 12:30 PM EDT I administered neuropsychological tests to Bebeto Dejesus. Direct time spent with the patient for neuropsychological testing was 223 minutes. An additional 28 minutes was spent scoring and documenting the results. 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 She was referred for a neuropsychological evaluation to rule out cognitive decline in the context of memory complaints. Background information was obtained via clinical interviews with the patient and her partner and from available medical records. MEDICAL HISTORY: GENERAL: Medical history on file includes adrenal insufficiency, obstructive sleep apnea, gastroesophageal reflux disease, and insomnia. Note that available records are limited. The patient stated that she also has rheumatoid arthritis, osteopenia, fatty liver, cataract removal, knee replacements, rotator cuff repair, and incontinence. Furthermore, she noted that she sustained an injury from a fall five years ago that resulted in neck weakness and pain, and she reported that she was diagnosed with a brain tumor some time ago that remained stable on neuroimaging. She was unsure if the tumor is/was a meningioma. Immediate family medical history includes stroke and heart attack. NEUROLOGY: A Neurology note on 09/24/22 indicates that the patient has mild obstructive sleep apnea treated with a CPAP. That note indicates that she was in a lot of stress due to being involved in lawsuit. No neurologic examination was reported. NEUROIMAGING: None available MEDICATIONS: Current medications, per patient, include bupropion, hydrocodone- acetaminophen, cyclobenzaprine, hydroxychloroquine, methotrexate, prednisone, Ozempic, sulfasalazine, [place] Thyroid, triamcinolone, ursodiol, celecoxib, pantoprazole, amiloride-hydrochlorothiazide, fluticasone, ipratropium-albuterol, montelukast, vitamin C, cholecalciferol, iron, folic acid, potassium chloride, vitaminE, zinc, and magnesium oxide. RECENT FUNCTIONING: PER PATIENT: The patient reported experiencing difficulty with attention, maintaining her train of thought, keeping track of time, and keeping track of items. She reported onset in 2001, when she wasquite ill (illness unspecified). Since then, she stated that she thought her recent cognitive problems were due to stress, but she feels that she remains below her cognitive baseline despite resolution of her primary stressor (i.e., the lawsuit). She also acknowledged the possibility of normal aging contributing to her cognitive concerns. Functionally, the patient reported that she continues to drive and manage her finances and appointments without difficulty. However, she has left her gas stove on and has had difficulty managing her medication despite blister packaging. The patient described her mood as happy now that the lawsuit has been resolved. However, she then acknowledged mild persisting anxiety and irritability. She has also been experiencing some visual illusions (e.g., mistaking a mailbox in the distance as a woman) and the perception of something like ants in her visual periphery. Mood is treated with medication. The patient reported sleeping 6-10 hours per night. She has pain everywhere, which can interfere with her sleep. In particular, she described her back as crumbling. Pain management has reportedly helped significantly (0/10 pain severity on average). Sleep and energy have improved in the past week. Appetite is stable. She consumes four alcoholic beverages per sitting on special occasions only and denied recent use of tobacco or illicitsubstances. PER FAMILY: The patient's partner reported observing memory loss, such as getting details mixed up about appointments or not recognizing that others have already told her something. She has also beenrearranging items in the kitchen without purpose. Some fluctuation in cognition was noted. He did not provide a specific time frame for onset but agreed she is not back to her cognitive baseline despite resolution of the lawsuit. 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 She has scorched foods due to leaving the stove on, has left the gas stove on, and now leaves cabinet doors open. Fortunately, she does not cook often. Navigational skills have always been limited, but she hasgotten lost recently while driving despite use of a GPS. They keep their finances separate, and he noted that she had to consolidate debt yet regularly gives money to her children. She sometimes blames him for moving items she has misplaced. He believes that she chooses which of her medications shewants to take and asserts that the blister packaging is incorrect. Improvement in sadness was observed following resolution of the lawsuit. However, she has become prone to irritability and agitation. For example, she recently told him to stop the car so she could get out due to being angry with him. She is also much more sensitive to feedback from others than at baseline. Her children have reportedly expressed concern regarding a significant change in her overall presentation. The patient's partner agreed that her sleep has improved, although it is typically restless and she has trouble tolerating her CPAP machine. She tends to eat at night and has always eaten too many sweets. Social support is limited to him and her children only. TESTS ADMINISTERED: Mini Mental State Examination-2, Test of Premorbid Functioning, [place]on[place] Adult Intelligence Scale-IV (selected subtests), Suresh Continuous Performance Test-3, [place] Making Test, [place] Card Sorting Test- 64, [place] Auditory Verbal Learning Test, [place] Memory Test-IV (selected subtest), Brief Visuospatial Memory Test-Revised, Prospective and Retrospective Memory Questionnaire, [place] Naming Test, Controlled Oral Word Association Test, [place] Complex Figure Test (copy trialonly), [place] Depression Inventory-2, [place] Anxiety Inventory, [place] Multiphasic Personality Inventory-3, Frontal Systems Behavior Rating Inventory (family report), History Form*, Clinical Interviews* (*=PhD administered, =computer administered; all remaining tests administered by water pollution control technician) BEHAVIORAL OBSERVATIONS: The patient arrived 1.5 hours early for her appointment. She was appropriately dressed and groomed. Corrected vision, hearing, and fine motor abilities were intact for examination purposes. Gait appeared steady. Speech content was circumlocutory at times. Thought content cristian eared broadly organized. Insight and judgment appeared fair. Affect was broad. Mood appeared to range from neutral to irritated. For example, her was present for her interview, but when he was asked for his input, she became irritated and countered his statements, so the rest of his interview occurred while she was testing (with her knowledge). The patient was cooperative throughout the evaluation. She occasionally required additional instruction, and her frustration tolerance appeared limited at times. She also required encouragement to guess at times. Scores were intact on embedded measures of performance validity. Therefore, the following results are considered an accurate reflection of her recent functioning. RESULTS: MENTAL STATUS: The patient obtained a 24/30 on the MMSE-2, which is below expectation. She missed points for word recall (-1), serial subtractions (-4), and sentence repetition (-1). INTELLIGENCE: The patient performed in the average range on a word-reading test that estimates baseline verbal intelligence, which is broadly within expectation for her education and employment history. Consistent with that estimate, she performed at the low end of average on a verbal abstract reasoning test that measures verbal intelligence. PROCESSING SPEED AND EXECUTIVE FUNCTIONING: Simple auditory attention was at the low end of average. Performance on a computerized measure of sustained attention was largely intact, with slightly slow but consistent reaction times and an average number of errors. Working memory performances were variable secondary to perseveration on prior task instructions during a backward digit repetition trial. Processing speed was average to high-average. Visual scanning and sequencing was average, and attention shifting was high-average. In contrast, novel problem solving was borderline, with only one category sorted within an abbreviated deck of cards. LEARNING AND MEMORY: Memory performances were variable but generally within expectation. [place] verbal learning was average (Trials 1-5 = 4, 7, 9, 12, 13). Delayed recall was high-average (12/15), recognition was average, and forced choice was perfect. Story learning was borderline. Delayed recall was adequate for the patient's age. Recognition was above average (20/23). Visuospatial learning was at the low end of average, delayed recall was high-average, and recognition was perfect. In comparison with her performances on objective memory measures, the patient rated her prospectiveand retrospective memory in the average range on a standardized questionnaire. LANGUAGE: Confrontation naming was low-average, with some semantic paraphasic errors. Phonemic fluency was also low-average, whereas semantic fluency was high-average. VISUOSPATIAL: Simple visuospatial reproduction was intact. The patient's reproduction of a complex geometric figure was also adequate despite an atypical strategy that resulted in some errors. MOOD AND BEHAVIOR: The patient endorsed minimal to mild symptoms of depression and anxiety on standardized questionnaires. Symptoms included boredom, amotivation, and mild fear that the worst will happen. The patient also completed an objective measure of mood and personality and produced a valid pr ofile with only two clinical elevations. Individuals who produce similar profiles tend to worry about their health and physical functioning. They may describe experiencing nonspecific somatic complaints, such as fatigue, sleep disturbance, dizziness, pain, or numbness/tingling. Those symptoms may worsen during periods of increased stress, although the connection between those experiences may not be apparent to the individual. Low frustration tolerance may also be present. Given his report of behavioral changes, the patient's partner was asked to complete a measure of behavioral changes at baseline (e.g., five years ago) compared to now. At baseline, his ratings reflected higher than average symptoms of apathy, disinhibition, and executive dysfunction. However, notable increases beyond her baseline levels were endorsed across all three domains currently. Examples of changes across time include greater emotional lability, increased impulsivity, more often sitting around doing nothing, increased failure to complete tasks, and an increase in forgetting to do things. SUMMARY AND IMPRESSIONS: The patient performed at or near expectation across most cognitive domains. However, novel problem solving and mental calculation were below normal limits. Behaviorally, the patient was cooperative but exhibited a limited frustration tolerance and perseverated on prior task instructions during one test. She also was quick to become irritated towards her partner when he was asked a few questions during the interview, and her insight and judgment appeared at least slightly below normal. While she endorsed minimal overall distress, her partner expressed concern regardingirritability/agitation and rated her behavior as falling well outside normal limits in terms of apathy, disinhibition, and executive functioning. Taken together, a tentative diagnosis of Unspecified Neurocognitive Disorder is offered given observed impairment in problem solving combined with difficulty with mental math and perseveration on prior task instructions during a working memory task. That said, these results do not clearly explain the cognitive complaints described by the patient or her partner. With regard to etiology, emotional distress, disrupted sleep, and polypharmacy represent primary risk factors that may explain at leastsome of the patient's cognitive complaints. It is currently unclear whether distress alone explainsher partner's observations of behavioral changes, especially since the patient asserted that her mood is much improved and seems to have limited awareness of the extent of her irritability. Inconsistent medication adherence could explain her cognitive fluctuations. There is a minor chance that the patient's prior brain tumor diagnosis is relevant to her current clinical presentation; recent neuroimaging results would be necessary to further assess that specific risk factor. It will also be important to rule out a brain tumor as a contributing factor given her reported history. Finally, the etiology of the patient's visual illusions/hallucinations is currently unclear in the absence of severe distress or parkinsonism. Based on these results, the following recommendations are offered: The patient is strongly urged to take her medications as prescribed. If she experiences side effects, it is her responsibility to communicate that to her prescribing provider and to allow the provider to make recommendations regarding any changes in her regimen. Referral to Neurology is recommended for further workup to rule out potentially reversible risk factors that may be contributing to the patient's cognitive concerns and behavioral changes. In particular, neuroimaging will be important to rule out the potential impact of a brain tumor given her reported history. I will discuss this with her during her feedback appointment. Medication reconciliation through Pharmacy is recommended to reduce the risk of untoward side effects given the number of psychoactive medications the patient is currently prescribed. A medication adjustment is recommended to address observed irritability. To compensate for her cognitive limitations, the patient is encouraged to maintain a to-do list, break complex tasks into smaller ones, write notes (e.g., in a notebook or cellphone application), andtake regular but brief breaks when completing complex tasks. She is also encouraged to consider using a calendar in a smart phone to keep track of appointments and to avoid multi-tasking whenever possible. Repeat neuropsychological evaluation is recommended in approximately 12 months to monitor for interim changes, particularly if there is concern for cognitive or functional decline at that time. Etiology may become clearer at that time. The patient is scheduled for a feedback appointment on 11/03/23. Thank you for this referral. Please feel free to call me at if you have any questions. Sincerely, Xena Linder, PhD, ABPP [employer], Clinical Board Certified in Clinical Neuropsychology CPT Code Description Minutes Billed 05443/34025 Neurobehavioral status exam 50 [id number] Neuropsychological test administration and scoring, by water pollution control technician 251 [id number] Neuropsychologist integration 177 ICD-10 Code: R41.3 Memory loss documented in this [facility]02-14-2024 History of Present illness Narrative* Angélica Ingram MD - 09/24/2023 10:30 AM EST Pt is here for follow up of sleep Mild MARCELLA- AHI 10 based on study in 2011 at [facility]- pt has resmed airsense 10 autoset 5-20. DME: [facility] [employer]- in [place] Mask: full face-dreamwear full Pt has also has MMP- adrenal insufficiency, has personal stressors, memory loss, visual halluncinatios- was referred for neuropsychiatric testing- that appt is 10/20/23 3. In 2005-pt was given modafinil for sleepiness but had a bad reaction to it so uses it sparingly for long drives- says she has the same bottle from 2005. has not taken it in 10 yrs Today in follow-up, she states that she is tolerating PAP. Pt sleep is limited by pain She has a lot of stress- the trial for her trust lawsuit starts tomorrow Pt does not have set schedule- she goes to bed 6 hours before she wants to get up. Takes 30 min to fall asleep- can sleep 6hrs but has to get up due to pain.also is busy preparing for upcoming trial. Meds takes before med- flexeril Complaints about PAP are: takes off during sleep at times. Patient PAP tolerance reviewed Snoring or gasping or choking with PAP therapy. no Issues sleeping with PAP therapy no Issues with daytime fatigue when using PAP therapy yes Leak- no Dryness- no Using Heated humidity: yes but gets rainout Feel suffocated by pressure- no Data reviewed today PAP data reviewed:No- we do not have access [place] and FOSQ have been reviewed. C/w sleepiness 05/26/2023 1:27 PM 09/24/2023 10:00 AM Sleep Medicine Patient Reported Outcomes ESS 13 ESS (manually scored) 13 FOSQ 7.5 FOSQ (manually scored) 10 TUTU 19 MVAP 0.544 Her past medical history and medications have been reviewed and documented in the electronic medical record. Past medical history: She has a past medical history of Adrenal insufficiency, GERD (gastroesophageal reflux disease), and Insomnia. Medications: Outpatient Medications Prior to Visit Medication Sig Dispense Refill Cobalamin Combinations (Opurity B12/Folic Acid) 1000-200 MCG tablet Take 2,000 mcg by mouth daily. Cyclobenzaprine 10 MG tablet Take 1 tablet by mouth at bedtime. fluticasone 50 MCG/ACT Suspension nasal spray 2 sprays by Nasal route daily. Hydroxychloroquine 200 MG tablet Take 1 tablet by mouth 2 times daily. lidocaine 20 mg/ml Solution 1 mg/kg by Intravenous route once. In neck back and shoulders MAGNESIUM GLUCONATE PO Take by mouth. METHOTREXATE IJ Inject 0.5 mL as directed once a week. Modafinil (Provigil) 200 MG tablet Take 1 tablet by mouth daily. Will take PRN Montelukast 10 MG tablet Take 1 tablet by mouth daily. Pantoprazole [address] tablet DR Take 1 tablet by mouth daily. potassium chloride 10 MEQ Cap CR Take 1 capsule by mouth 2 times daily. predniSONE 5 MG tablet Take 1 tablet by mouth daily. Sucralfate 1 g tablet Take 1 tablet by mouth every 6 hours. Thyroid 30 MG tablet Take 1 tablet by mouth daily. One tab daily and 2 tabs on Sat and Sun ursodiol 300 MG capsule Take 1 capsule by mouth every 12 hours. No facility-administered medications prior to visit. Physical exam Wt 102.3 kg (225 lb 9.6 oz) BMI 36.97 kg/m Smoking Status Never Body mass index is 36.97 kg/m . Gen: Age appropriate female in no acute distress Head: atraumatic normocephalic Neuro: alert and appropriate: Integumentary: no pressure sores of face or skin abrasions Impression/Plan Mild MARCELLA and is on treatment with PAP at prescription settings of 5-20 cm of water. Will need to obtain download. 2. Limited sleep due to chronic pain- sleeps 6 hours max. Also does not have a regular schedule. 3. Pt has a lot of stress now with upcoming trial about her trust. 4. Has her neuropsychiatric testing october 2023 for memory loss Bebeto Lorena Dejesus will follow up in 3 months to ensure memory testing done and pt is established with neurology. [facility] History of Present illness Narrative* Angélica Ingram MD - 09/24/2023 10:30 AM EST Pt is here for follow up of sleep Mild MARCELLA- AHI 10 based on study in 2011 at [facility] Sleep- pt has resmed airsense 10 autoset 5-20. DME: [employer]- in [place] Mask: full face-dreamwear full Pt has also has MMP- adrenal insufficiency, has personal stressors, memory loss, visual halluncinatios- was referred for neuropsychiatric testing- that appt is 10/20/23 3. In 2005-pt was given modafinil for sleepiness but had a bad reaction to it so uses it sparingly for long drives- says she has the same bottle from 2005. has not taken it in 10 yrs Today in follow-up, she states that she is tolerating PAP. Pt sleep is limited by pain She has a lot of stress- the trial for her trust lawsuit starts tomorrow Pt does not have set schedule- she goes to bed 6 hours before she wants to get up. Takes 30 min to fall asleep- can sleep 6hrs but has to get up due to pain.also is busy preparing for upcoming trial. Meds takes before med- flexeril Complaints about PAP are: takes off during sleep at times. Patient PAP tolerance reviewed Snoring or gasping or choking with PAP therapy. no Issues sleeping with PAP therapy no Issues with daytime fatigue when using PAP therapy yes Leak- no Dryness- no Using Heated humidity: yes but gets rainout Feel suffocated by pressure- no Data reviewed today PAP data reviewed:No- we do not have access [place] and FOSQ have been reviewed. C/w sleepiness 05/26/2023 1:27 PM 09/24/2023 10:00 AM Sleep Medicine Patient Reported Outcomes ESS 13 ESS (manually scored) 13 FOSQ 7.5 FOSQ (manually scored) 10 TUTU 19 MVAP 0.544 Her past medical history and medications have been reviewed and documented in the electronic medical record. Past medical history: She has a past medical history of Adrenal insufficiency, GERD (gastroesophageal reflux disease), and Insomnia. Medications: Outpatient Medications Prior to Visit Medication Sig Dispense Refill Cobalamin Combinations (Opurity B12/Folic Acid) 1000-200 MCG tablet Take 2,000 mcg by mouth daily. Cyclobenzaprine 10 MG tablet Take 1 tablet by mouth at bedtime. fluticasone 50 MCG/ACT Suspension nasal spray 2 sprays by Nasal route daily. Hydroxychloroquine 200 MG tablet Take 1 tablet by mouth 2 times daily. lidocaine 20 mg/ml Solution 1 mg/kg by Intravenous route once. In neck back and shoulders MAGNESIUM GLUCONATE PO Take by mouth. METHOTREXATE IJ Inject 0.5 mL as directed once a week. Modafinil (Provigil) 200 MG tablet Take 1 tablet by mouth daily. Will take PRN Montelukast 10 MG tablet Take 1 tablet by mouth daily. Pantoprazole [address] tablet DR Take 1 tablet by mouth daily. potassium chloride 10 MEQ Cap CR Take 1 capsule by mouth 2 times daily. predniSONE 5 MG tablet Take 1 tablet by mouth daily. Sucralfate 1 g tablet Take 1 tablet by mouth every 6 hours. Thyroid 30 MG tablet Take 1 tablet by mouth daily. One tab daily and 2 tabs on Sat and Sun ursodiol 300 MG capsule Take 1 capsule by mouth every 12 hours. No facility-administered medications prior to visit. Physical exam Wt 102.3 kg (225 lb 9.6 oz) BMI 36.97 kg/m Smoking Status Never Body mass index is 36.97 kg/m . Gen: Age appropriate female in no acute distress Head: atraumatic normocephalic Neuro: alert and appropriate: Integumentary: no pressure sores of face or skin abrasions Impression/Plan Mild MARCELLA and is on treatment with PAP at prescription settings of 5-20 cm of water. Will need to obtain download. 2. Limited sleep due to chronic pain- sleeps 6 hours max. Also does not have a regular schedule. 3. Pt has a lot of stress now with upcoming trial about her trust. 4. Has her neuropsychiatric testing october 2023 for memory loss Bebeto Lorena Dejesus will follow up in 3 months to ensure memory testing done and pt is established with neurology. * Angélica Ingram MD - 09/24/2023 10:30 AM EST I reviewed the patient's PAP data. PAP usage data: Device: resmed airsense 10 auto set : Pressure settings: 5-20 Dates are from 06/26/23 to 09/23/23. Pt used PAP 88/last 90 days % Days used >=4 hrs is 87 % Average daily use is 6hrs and 16min Average hours of use days PAP was used 6hrs and 25min Median daily use is 6hrs and 31min Therapy data Residual AHI : 2.9 Patient pressure summary data Median pressure used: 11 95th pressure: 13.7 Max pressure 15.3 Leak data Median leak is 1.2 L/min 95th percentile leak is 16.3 L/min Plan Continue current settings documented [facility]05-23-2023 [facility] Miscellaneous Notes* Telephone Encounter - Shawnee Trotter - 10/08/2022 5:11 PM EST Spoke with the patient and scheduled her an appointment for Sleep Apnea. Medical records were sent to [facility]. Mailed the patient an appointment reminder and a MyChart information. documented in [facility] Miscellaneous Notes* Telephone Encounter - Stuart Blair MA - 10/07/2022 4:09 PM EST Received fax referral from [facility] ([facility]) [facility] [place] Dorman CNP for sleep medicine. DX: Primary central sleep apnea (G47.31) Comment: sleep apnea, concern for narcolepsy. Will forward to Shawnee. Stuart Blair MA documented in this encounterMary [facility]an HospitalEvaluation note* Diagnosis Onset Date Resolution Status Methotrexate, long term care administrator, current use acute Asthma chronic BMI greater than 40 chronic CSA (central sleep apnea) ch ronic History of colon polyps acut e Roman esophagus chronic Abnormal laboratory test acu te Anxiety and depression chron ic Constipation chronic Obesity chronic Strain of knee and leg, right acute MGUS (monoclonal gammopathy of unknown significance) chronic [facility] Work Phone: Evaluation note* Diagnosis Onset Date Resolution Status History of colon polyps acut e Roman esophagus chronic Abnormal laboratory test acu te Anxiety and depression chron ic Constipation chronic Obesity chronic Strain of knee and leg, right acute MGUS (monoclonal gammopathy of unknown significance) chronic GERD (gastroesophageal reflux disease) acute BMI greater than 40 chronic [facility] Work Phone: Evaluation note* Diagnosis Onset Date Resolution Status History of colon polyps acut e Roman esophagus chronic Abnormal laboratory test acu te Anxiety and depression chron ic Constipation chronic Obesity chronic Strain of knee and leg, right acute MGUS (monoclonal gammopathy of unknown significance) chronic GERD (gastroesophageal reflux disease) acute BMI greater than 40 chronic Asthma chronic CSA (central sleep apnea) ch ronic Obesity chronic [facility] Work Phone: Evaluation note* Diagnosis Onset Date Resolution Status GERD (gastroesophageal reflux disease) acute Asthma chronic CSA (central sleep apnea) ch ronic Obesity chronic Fatty liver disease, nonalcoholic acute Anxiety and depression chron ic Essential (primary) hypertension chronic Obesity chronic Fatty liver disease, nonalcoholic acute GERD (gastroesophageal reflux disease) acute Obesity [facility] Work Phone: Evaluation note* Diagnosis Onset Date Resolution Status GERD (gastroesophageal reflux disease) acute Asthma chronic CSA (central sleep apnea) ch ronic Obesity chronic Fatty liver disease, nonalcoholic acute Anxiety and depression chron ic Essential (primary) hypertension chronic Obesity chronic Fatty liver disease, nonalcoholic acute GERD (gastroesophageal reflux disease) acute Obesity chronic Anemia acute Malaise and fatigue acute Hypokalemia [facility] Work Phone: Evaluation note* Diagnosis Onset Date Resolution Status Asthma chronic CSA (central sleep apnea) ch ronic Obesity chronic Fatty liver disease, nonalcoholic acute Anxiety and depression chron ic Essential (primary) hypertension chronic Obesity chronic Fatty liver disease, nonalcoholic acute GERD (gastroesophageal reflux disease) acute Obesity chronic Anemia acute Malaise and fatigue acute Hypokalemia chronic Anemia acute Fatty liver disease, nonalcoholic acute [facility] Work Phone: Evaluation note* Diagnosis Onset Date Resolution Status Fatty liver disease, nonalcoholic acute Anxiety and depression chron ic Essential (primary) hypertension chronic Obesity chronic Fatty liver disease, nonalcoholic acute GERD (gastroesophageal reflux disease) chronic Obesity chronic Anemia acute Malaise and fatigue acute Hypokalemia chronic Anemia acute Fatty liver disease, nonalcoholic acute Adrenal insufficiency chroni c Anxiety and depression chron ic Borderline type 2 diabetes mellitus chronic GERD (gastroesophageal reflux disease) chronic Obesity [facility] Work Phone: Evaluation note* Diagnosis Onset Date Resolution Status Anemia acute Malaise and fatigue acute Hypokalemia chronic Anemia acute Fatty liver disease, nonalcoholic chronic Adrenal insufficiency chroni c Anxiety and depression chron ic Borderline type 2 diabetes mellitus chronic GERD (gastroesophageal reflux disease) chronic Obesity chronic Diarrhea chronic Fatty liver disease, nonalcoholic chronic Obesity [facility] Work Phone: Evaluation note* Diagnosis Onset Date Resolution Status Anemia acute Fatty liver disease, nonalcoholic chronic Adrenal insufficiency chroni c Anxiety and depression chron ic Borderline type 2 diabetes mellitus chronic GERD (gastroesophageal reflux disease) chronic Obesity chronic Diarrhea chronic Fatty liver disease, nonalcoholic chronic Obesity [facility] Work Phone: Evaluation note* Diagnosis Onset Date Resolution Status Diarrhea chronic Fatty liver disease, nonalcoholic chronic Obesity chronic Methotrexate, long term care administrator, current use acute Asthma chronic CSA (central sleep apnea) [facility] Fatty liver disease, nonalcoholic chronic Breast cancer screening acut e Borderline type 2 diabetes mellitus chronic Dyspnea chronic Essential (primary) hypertension [facility] Work Phone: Evaluation note* Diagnosis Onset Date Resolution Status MGUS (monoclonal gammopathy of unknown significance) chronic Borderline type 2 diabetes mellitus chronic Essential (primary) hypertension chronic GERD (gastroesophageal reflux disease) chronic Obesity chronic Diarrhea chronic Fatty liver disease, nonalcoholic chronic Obesity [facility] Work Phone: Evaluation note* Diagnosis Onset Date Resolution Status Sjogren's disease acute Asthma chronic CSA (central sleep apnea) [facility] Obesity chronic Contusion of rib on right side acute Right rib fracture acute Dermatitis acute Muscular abdominal pain in right flank acute Borderline type 2 diabetes mellitus chronic Essential (primary) hypertension [facility] Work Phone: Evaluation note* Diagnosis Onset Date Resolution Status Diarrhea chronic Dyspnea chronic Fatty liver disease, nonalcoholic chronic Obesity chronic Flu vaccine need acute Anxiety and depression chron ic Essential (primary) hypertension chronic Hypokalemia chronic Obesity [facility] Work Phone: Evaluation note* Diagnosis Onset Date Resolution Status Diarrhea chronic Dyspnea chronic Fatty liver disease, nonalcoholic chronic Obesity chronic Flu vaccine need acute Anxiety and depression chron ic Essential (primary) hypertension chronic Hypokalemia chronic Obesity chronic Methotrexate, long term care administrator, current use acute Asthma chronic CSA (central sleep apnea) [facility] Work Phone: Evaluation note* Diagnosis MARCELLA (obstructive sleep apnea)- Primary Obstructive sleep apnea (adult) (pediatric) [facility] Diagnosis MARCELLA (obstructive sleep apnea)- Primary Obstructive sleep apnea (adult) (pediatric) documented in [facility] Diagnosis Onset Date Resolution Status Methotrexate, [place] [facility], current use acute Asthma chronic CSA (central sleep apnea) [facility] Health care maintenance acut e Anxiety and depression chron ic Chronic back pain chronic Essential (primary) hypertension chronic Unsteady gait chronic [facility] Work Phone: Evaluation note* Diagnosis Memory loss- Primary [facility] this encounter [facility] Diagnosis Memory loss- Primary documented in this encounter [facility] Diagnosis Onset Date Resolution Status Health care maintenance acut e Anxiety and depression chron ic Chronic back pain chronic Essential (primary) hypertension chronic Unsteady gait chronic MGUS (monoclonal gammopathy of unknown significance) chronic Abrasion, left knee, initial encounter acute Chest wall contusion acute Contusion of left knee acute Contusion of right middle finger acute Fracture of proximal phalanx of right middle finger acute Strain of right middle finger acute [facility] Work Phone: Evaluation note* Diagnosis MARCELLA (obstructive sleep apnea)- Primary Obstructive sleep apnea (adult) (pediatric) Hypersomnia Hypersomnia, unspecified [facility] in this [facility] Diagnosis Loss of memory- Primary Memory loss [facility] in [facility] Diagnosis Loss of memory Memory loss documented in this encounter [facility] Diagnosis Loss of memory- Primary Memory loss documented in this encounter [facility] Diagnosis Full islam of crown of tooth needed due to previous large islam procedure- Primary documented in this encounter [facility] [employer] Work Phone: Reason for referral (narrative)No reason for referral information availableWMetroHealth [facility] Work Phone: Chief Complaint and Reason for Visit Chief Complaint 6 M FU DISCUSS ORDERING COLONOSCOPY-[facility] PATIENT S/O DR STEVENS/Leah ORDERS DR NOBLES 3 M FU R LEG INJURY XRAY 1YR LABS PRIOR ABDOMINAL PAIN EORDER- DR[facility] Pre-Surgical Testing PAT Reason for Visit Methotrexate, long t erm, current use Asthma BMI greater than 40 CSA (central sleep apnea) History of colon polyps Roman esophagus Abnormal laboratory test Anxiety and depression Constipation Obesity Strain of knee and leg, right MGUS (monoclonal gammopathy of unknown significance) Chief Complaint DISCUSS ORDERING COL ONOSCOPY-PREV [facility] PATIENT S/O DR STEVENS/Leah ORDERS DR NOBLES 3 M FU R LEG INJURY XRAY 1YR LABS PRIOR ABDOMINAL PAIN EORDER- [facility] Pre-Surgical Testing PAT FU Reason for Visit History of colon melvi yps Roman esophagus Abnormal laboratory test Anxiety and depression Constipation Obesity Strain of knee and leg, right MGUS (monoclonal gammopathy of unknown significance) GERD (gastroesophageal reflux disease) BMI greater than 40 Chief Complaint DISCUSS ORDERING COL ONOSCOPY-PREV [facility] PATIENT S/O DR STEVENS/Leah ORDERS DR NOBLES 3 M FU R LEG INJURY XRAY 1YR LABS PRIOR ABDOMINAL PAIN EORDER- [facility] Pre-Surgical Testing PAT FU 6 M FU Reason for Visit History of colon melvi yps Roman esophagus Abnormal laboratory test Anxiety and depression Constipation Obesity Strain of knee and leg, right MGUS (monoclonal gammopathy of unknown significance) GERD (gastroesophageal reflux disease) BMI greater than 40 Asthma CSA (central sleep apnea) Obesity Chief Complaint EORDER- DROPOFF Pre-Surgical Testing PAT FU 6 M FU 3 M FU 8 WK FU dizziness Reason for Visit GERD (gastroesophage al reflux disease) Asthma CSA (central sleep apnea) Obesity Fatty liver disease, nonalcoholic Anxiety and depression Essential (primary) hypertension Obesity Fatty liver disease, nonalcoholic GERD (gastroesophageal reflux disease) Obesity Chief Complaint Pre-Surgical Testing PAT FU 6 M FU 3 M FU 8 WK FU dizziness Reason for Visit GERD (gastroesophage al reflux disease) Asthma CSA (central sleep apnea) Obesity Fatty liver disease, nonalcoholic Anxiety and depression Essential (primary) hypertension Obesity Fatty liver disease, nonalcoholic GERD (gastroesophageal reflux disease) Obesity Chief Complaint FU 6 M FU 3 M FU 8 WK FU dizziness ADRENEAL CRISIS Reason for Visit GERD (gastroesophage al reflux disease) Asthma CSA (central sleep apnea) Obesity Fatty liver disease, nonalcoholic Anxiety and depression Essential (primary) hypertension Obesity Fatty liver disease, nonalcoholic GERD (gastroesophageal reflux disease) Obesity Anemia Malaise and fatigue Hypokalemia Chief Complaint FU 6 M FU 3 M FU 8 WK FU dizziness ADRENEAL CRISIS Moderate persistent asthma, uncomplicated Moderate persistent asthma, uncomplicated Other forms of dyspnea/UA EORDER Other forms of dyspnea/UA EORDER Reason for Visit GERD (gastroesophage al reflux disease) Asthma CSA (central sleep apnea) Obesity Fatty liver disease, nonalcoholic Anxiety and depression Essential (primary) hypertension Obesity Fatty liver disease, nonalcoholic GERD (gastroesophageal reflux disease) Obesity Anemia Malaise and fatigue Hypokalemia Chief Complaint 6 M FU 3 M FU 8 WK FU dizziness ADRENEAL CRISIS Moderate persistent asthma, uncomplicated Moderate persistent asthma, uncomplicated Other forms of dyspnea/UA EORDER Other forms of dyspnea/UA EORDER 2 MO FU FATTY LIVER Reason for Visit Asthma CSA (central sleep apnea) Obesity Fatty liver disease, nonalcoholic Anxiety and depression Essential (primary) hypertension Obesity Fatty liver disease, nonalcoholic GERD (gastroesophageal reflux disease) Obesity Anemia Malaise and fatigue Hypokalemia Anemia Fatty liver disease, nonalcoholic Chief Complaint 3 M FU 8 WK FU dizziness ADRENEAL CRISIS Moderate persistent asthma, uncomplicated Moderate persistent asthma, uncomplicated Other forms of dyspnea/UA EORDER Other forms of dyspnea/UA EORDER 2 MO FU FATTY LIVER 2 M FU Reason for Visit Fatty liver disease, nonalcoholic Anxiety and depression Essential (primary) hypertension Obesity Fatty liver disease, nonalcoholic GERD (gastroesophageal reflux disease) Obesity Anemia Malaise and fatigue Hypokalemia Anemia Fatty liver disease, nonalcoholic Adrenal insufficiency Anxiety and depression Borderline type 2 diabetes mellitus GERD (gastroesophageal reflux disease) Obesity Chief Complaint ADRENEAL CRISIS Moderate persistent asthma, uncomplicated Moderate persistent asthma, uncomplicated Other forms of dyspnea/UA EORDER Other forms of dyspnea/UA EORDER 2 MO FU FATTY LIVER 2 M FU 3 month f/u Reason for Visit Anemia Malaise and fatigue Hypokalemia Anemia Fatty liver disease, nonalcoholic Adrenal insufficiency Anxiety and depression Borderline type 2 diabetes mellitus GERD (gastroesophageal reflux disease) Obesity Diarrhea Fatty liver disease, nonalcoholic Obesity Chief Complaint Moderate persistent asthma, uncomplicated Moderate persistent asthma, uncomplicated Other forms of dyspnea/UA EORDER Other forms of dyspnea/UA EORDER 2 MO FU FATTY LIVER 2 M FU 3 month f/u Reason for Visit Anemia Fatty liver disease, nonalcoholic Adrenal insufficiency Anxiety and depression Borderline type 2 diabetes mellitus GERD (gastroesophageal reflux disease) Obesity Diarrhea Fatty liver disease, nonalcoholic Obesity Chief Complaint 3 month f/u 4 M FU 3 M FU SCREENING Reason for Visit Diarrhea Fatty liver disease, nonalcoholic Obesity Methotrexate, [place] [facility], current use Asthma CSA (central sleep apnea) Fatty liver disease, nonalcoholic Breast cancer screening Borderline type 2 diabetes mellitus Dyspnea Essential (primary) hypertension Chief Complaint SCREENING 1YR LABS PRIOR 3 M FU 3 MO FU FATTY LIVER Reason for Visit MGUS (monoclonal azam mopathy of unknown significance) Borderline type 2 diabetes mellitus Essential (primary) hypertension GERD (gastroesophageal reflux disease) Obesity Diarrhea Fatty liver disease, nonalcoholic Obesity Chief Complaint SCREENING 1YR LABS PRIOR 3 M FU 3 MO FU FATTY LIVER [employer]DC DRUG THERAPY FDC DRUG THERAPY [employer]NA[employer] DRUG THERAPY [employer] MANAGER DRUG THERAPY Reason for Visit MGUS (monoclonal azam mopathy of unknown significance) Borderline type 2 diabetes mellitus Essential (primary) hypertension GERD (gastroesophageal reflux disease) Obesity Diarrhea Fatty liver disease, nonalcoholic Obesity Chief Complaint 1YR LABS PRIOR 3 M FU 3 MO FU FATTY LIVER FDC DRUG THERAPY FDC DRUG THERAPY FDC DRUG THERAPY [employer] MANAGER DRUG THERAPY Reason for Visit MGUS (monoclonal azam mopathy of unknown significance) Borderline type 2 diabetes mellitus Essential (primary) hypertension GERD (gastroesophageal reflux disease) Obesity Diarrhea Fatty liver disease, nonalcoholic Obesity Chief Complaint FDC DRUG THERA PY FDC DRUG THERAPY FDC DRUG THERAPY [employer] MANAGER DRUG THERAPY 6 M FU RIGHT SIDE/RIB PAIN XRAY 3 m fu Reason for Visit Sjogren's disease Asthma CSA (central sleep apnea) Obesity Contusion of rib on right side Right rib fracture Dermatitis Muscular abdominal pain in right flank Borderline type 2 diabetes mellitus Essential (primary) hypertension Chief Complaint 6 M FU RIGHT SIDE/RIB PAIN XRAY 3 m fu Reason for Visit Sjogren's disease Asthma CSA (central sleep apnea) Obesity Contusion of rib on right side Right rib fracture Dermatitis Muscular abdominal pain in right flank Borderline type 2 diabetes mellitus Essential (primary) hypertension Chief Complaint 6 MO FU INT LABS 3 M FU Reason for Visit Diarrhea Dyspnea Fatty liver disease, nonalcoholic Obesity Flu vaccine need Anxiety and depression Essential (primary) hypertension Hypokalemia Obesity Chief Complaint 6 MO FU INT LABS 3 M FU 6 M FU Reason for Visit Diarrhea Dyspnea Fatty liver disease, nonalcoholic Obesity Flu vaccine need Anxiety and depression Essential (primary) hypertension Hypokalemia Obesity Methotrexate, long term care administrator, current use Asthma CSA (central sleep apnea) Chief Complaint 6 M FU 3 m fu Reason for Visit Methotrexate, long t erm, current use Asthma CSA (central sleep apnea) Health care maintenance Anxiety and depression Chronic back pain Essential (primary) hypertension Unsteady gait Chief Complaint 6 M FU 3 m fu SCREENING POST NINI Reason for Visit Methotrexate, long t erm, current use Asthma CSA (central sleep apnea) Health care maintenance Anxiety and depression Chronic back pain Essential (primary) hypertension Unsteady gait Chief Complaint 3 m fu SCREENING POST NINI ONC/HEM 12 MO, LABS PRIOR post fall/ pain in chest area only when moving fall trauma to sternum s/p fall fall Reason for Visit Health care [facility] Anxiety and depression Chronic back pain Essential (primary) hypertension Unsteady gait MGUS (monoclonal gammopathy of unknown significance) Abrasion, left knee, initial encounter Chest wall contusion Contusion of left knee Contusion of right middle finger Fracture of proximal phalanx of right middle finger Strain of right middle finger Chief Complaint Admit Date LEFT HUMERL FRACTURE AFTER FALL August 07, 2024 11:58pm LEFT HUMERL FRACTURE AFTER FALL August 08, 2024 7:03am LEFT HUMERL FRACTURE AFTER FALL August 09, 2024 9:09am LEFT HUMERL FRACTURE AFTER FALL August 10, 2024 9:28am LEFT HUMERL FRACTURE AFTER FALL August 11, 2024 9:20am LEFT HUMERL FRACTURE AFTER FALL August 12, 2024 9:16am 3 M FU October 21, 2024 1:0 5pm OSTEOPENIA November 23, 2024 3:5 1pm Reason for Visit Admit Date Closed left humeral fracture August 072023 11:58pm Debility August 07, 2024 11:58pm Fall August 07, 2024 11:58pm Intractable pain August 07, 2024 11:58pm Leukocytosis August 07, 2024 11:58pm Nonalcoholic fatty liver disease Decembe r 2023 11:58pm Obesity (BMI 30-39.9) August 07 11:58pm S/P foot surgery, left August 07 11:58pm Severe anxiety August 07, 2024 11:58pm Hypokalemia August 07, 2024 11:58pm Sleep apnea August 07, 2024 11:58pm Diarrhea October 21, 2024 1:0 5pm Dyspnea October 21, 2024 1:0 5pm Fatty liver disease, nonalcoholic October 21, 2024 1:05pm Obesity October 21, 2024 1:0 5pm Chief Complaint Admit Date 3 M FU October 21, 2024 1:0 5pm OSTEOPENIA November 23, 2024 3:5 1pm ams December 09, 2024 6:02pm WEIGHT CHECK December 22, 2024 3:34p m Reason for Visit Admit Date Diarrhea October 21, 2024 1:0 5pm Dyspnea October 21, 2024 1:0 5pm Fatty liver disease, nonalcoholic October 21, 2024 1:05pm Obesity October 21, 2024 1:0 5pm Chief Complaint Admit Date 3 M FU October 21, 2024 1:0 5pm OSTEOPENIA November 23, 2024 3:5 1pm ams December 09, 2024 6:02pm WEIGHT CHECK December 22, 2024 3:34p m 1 YEAR - LABS DONE January 06, 2025 2:53p m Reason for Visit Admit Date Diarrhea October 21, 2024 1:0 5pm Dyspnea October 21, 2024 1:0 5pm Fatty liver disease, nonalcoholic October 21, 2024 1:05pm Obesity October 21, 2024 1:0 5pm MGUS (monoclonal gammopathy of unknown s ignificance) January 06, 2025 2:53pm Chief Complaint Admit Date 3 M FU October 21, 2024 1:0 5pm OSTEOPENIA November 23, 2024 3:5 1pm ams December 09, 2024 6:02pm WEIGHT CHECK December 22, 2024 3:34p m 1 YEAR - LABS DONE January 06, 2025 2:53p m 6 m fu January 18, 2025 1:35 pm Reason for Visit Admit Date Diarrhea October 21, 2024 1:0 5pm Dyspnea October 21, 2024 1:0 5pm Fatty liver disease, nonalcoholic October 21, 2024 1:05pm Obesity October 21, 2024 1:0 5pm MGUS (monoclonal gammopathy of unknown s ignificance) January 06, 2025 2:53pm Asthma January 18, 2025 1:35 pm Obesity January 18, 2025 1:35 pm Sleep apnea January 18, 2025 1:35 pm Chief Complaint Admit Date 3 M FU October 21, 2024 1:0 5pm OSTEOPENIA November 23, 2024 3:5 1pm ams December 09, 2024 6:02pm WEIGHT CHECK December 22, 2024 3:34p m 1 YEAR - LABS DONE January 06, 2025 2:53p m 6 m fu January 18, 2025 1:35 pm WEIGHT CHECK January 21, 2025 2:13 pm Chief Complaint Admit Date 3 M FU October 21, 2024 1:0 5pm OSTEOPENIA November 23, 2024 3:5 1pm ams December 09, 2024 6:02pm WEIGHT CHECK December 22, 2024 3:34p m 1 YEAR - LABS DONE January 06, 2025 2:53p m 6 m fu January 18, 2025 1:35 pm WEIGHT CHECK January 21, 2025 2:13 pm daytime hypersomnia, hypoxemia February 08, 2025 8:33pm mental health February 10, 2025 2:35p m Chief Complaint Admit Date OSTEOPENIA November 23, 2024 3:5 1pm ams December 09, 2024 6:02pm WEIGHT CHECK December 22, 2024 3:34p m 1 YEAR - LABS DONE January 06, 2025 2:53p m 6 m fu January 18, 2025 1:35 pm WEIGHT CHECK January 21, 2025 2:13 pm daytime hypersomnia, hypoxemia February 08, 2025 8:33pm mental health February 10, 2025 2:35p m 2 ORDERING PELON March 10, 2025 4:40 pm Reason for Visit Admit Date MGUS (monoclonal gammopathy of unknown s ignificance) January 06, 2025 2:53pm Asthma January 18, 2025 1:35 pm Obesity January 18, 2025 1:35 pm Sleep apnea January 18, 2025 1:35 pm Chief Complaint Admit Date ams December 09, 2024 6:02pm WEIGHT CHECK December 22, 2024 3:34p m 1 YEAR - LABS DONE January 06, 2025 2:53p m 6 m fu January 18, 2025 1:35 pm WEIGHT CHECK January 21, 2025 2:13 pm daytime hypersomnia, hypoxemia February 08, 2025 8:33pm mental health February 10, 2025 2:35p m 2 ORDERING PELON March 10, 2025 4:40 pm Family History No Family History Records Found Relationship Condition Age at Onset Recorded Date/T richard father Malignant neoplasm Unknown mother Dementia Unknown Osteoarthritis Unknown Chronic obstructive pulmonary disease Unk nown brother Myocardial infarction 49 aunt Multiple sclerosis Unknown sister Malignant neoplasm of colon Unknown Malignant neoplasm of breast Unknown aunt Celiac disease Unknown Advance Directives No Advanced Directives Records Found Advance Directive Response Recorded Date/ Time Advance Directives Yes March 03 9:55am Living Will Yes October 19, 2021 2:07pm Power of Tool Design Drafter Yes October 19 2:07pm Advance Directive Response Recorded Date/ Time Name of Medical Power of Tool Design Drafter AGUSTO October 19, 2021 2:07pm Advance Directives Yes March 03 9:55am Living Will No February 01, 2022 4:03pm Power of Tool Design Drafter No February 01 4:03pm Advance Directive Response Recorded Date/ Time Advance Directives Yes March 03 9:55am Living Will No February 01, 2022 4:03pm Power of Tool Design Drafter No February 01 4:03pm Advance Directive Response Recorded Date/ Time Advance Directives Yes March 03 8:55am Living Will No February 01, 2022 3:03pm Power of Tool Design Drafter No February 01 3:03pm Advance Directive Response Recorded Date/ Time Advance Directives Yes December 13, 2019 1:42pm Living Will No February 01, 2022 4:03pm Power of Tool Design Drafter No February 01 4:03pm Advance Directive Response Recorded Date/ Time Advance Directives Yes December 13, 2019 12:42pm Living Will No February 01, 2022 3:03pm Power of Tool Design Drafter No February 01 3:03pm Advance Directive Response Recorded Date/ Time Advance Directives Yes December 13, 2019 1:42pm Living Will No November 27, 2023 11:24am Power of Tool Design Drafter No November 26 11:24am Advance Directive Response Recorded Date/ Time Living Will Yes April 13 1:17pm Do you have a Healthcare Power of Tool Design Drafter? Yes April 13, 2024 1:17pm Living Will No August 08 3:20am Do you have a Healthcare Power of Tool Design Drafter? No August 08, 2024 3:20am Advance Directives Yes December 13, 2019 1:42pm Advance Directive Response Recorded Date/ Time Living Will Yes April 13 1:17pm Do you have a Healthcare Power of Tool Design Drafter? Yes April 13, 2024 1:17pm Do you have a Healthcare Power of Tool Design Drafter? Yes December 09, 2024 6:09pm Advance Directives Yes December 13, 2019 1:42pm Advance Directive Response Recorded Date/ Time Living Will Yes April 13 1:17pm Do you have a Healthcare Power of Tool Design Drafter? Yes April 13, 2024 1:17pm Do you have a Healthcare Power of Tool Design Drafter? Yes December 09, 2024 6:09pm Do you have a Healthcare Power of Tool Design Drafter? Yes February 10, 2025 4:29pm Advance Directives Yes December 13, 2019 1:42pm Advance Directive Response Recorded Date/ Time Do you have a Healthcare Power of Tool Design Drafter? Yes December 09, 2024 6:09pm Do you have a Healthcare Power of Tool Design Drafter? Yes February 10, 2025 4:29pm Advance Directives Yes December 13, 2019 1:42pm Summary Purpose Reason for Referral Specialty Diagnoses / Procedures Referred By Contac t Referred To Contact Diagnoses MARCELLA (obstructive sleep apnea) Procedures CPAP / BPAP SETUP FOR HOME Angélica Ingram MD [address] [place] [address] Referral ID Status Reason Start Date Expiration Date Visits Re quested Visits Authorized [id number] Open 09/24/2023 10/18/2024 1 1 Specialty Diagnoses / Procedures Referred By Contac t Referred To Contact Diagnoses Loss of memory Procedures MRI BRAIN WITHOUT CONTRAST CHG MRI BRAIN BRAIN STEM W/O CONTRAST MATERIAL Roger Bustamante MD [address] [place] [address] Referral ID Status Reason Start Date Expiration Date V isits Requested Visits Authorized [id number] New Request 02/03/2024 02/27/2025 1 1 Additional Source Comments Goals (unrecognized section and content) Goals may be documented in a n alternate sectionGoals may be documented in an alternate sectionGoals may be documented in an alternate sectionGoals may be documented in an alternate sectionGoals may be documented in an alternate sectionGoals may be documented in an alternate sectionGoals may be documented in an alternate sectionGoals may be documented in an alternate sectionGoals may be documented in an alternate sectionGoals may be documented in an alternate sectionGoals may be documented in an alternate sectionGoals may be documented in an alternate sectionGoals may be documented in an alternate sectionGoals may be documented in an alternate sectionGoals may be documented in an alternate sectionGoals may be documented in an alternate sectionGoals may be documented in an alternate sectionGoals may be documented in an alternate sectionGoals may be documented in an alternate sectionGoals may be documented in an alternate sectionGoals may be documented in an alternate sectionGoals may be documented in an alternate sectionGoals may be documented in an alternate sectionGoals may be documented in an alternate sectionGoals may be documented in an alternate sectionGoals may be documented in an alternate sectionGoals may be documented in an alternate sectionGoals may be documented in an alternate sectionGoals may be documented in an alternate sectionGoals may be documented in an alternate sectionGoals may be documented in an alternate sectionGoals may be documented in an alternate sectionGoals may be documented in an alternate sectionGoals may be documented in an alternate sectionGoals may be documented in an alternate section Care Teams (unrecognized sec tion and content) Team Status: Active Member Role Status Dates Dr. Ronnie Hull MD Family Provider Active Dr. Ronnie Hull MD Primary Care Provider Active Team Status: Inactive Member Role Status Dates Dr. Ronnie Hull MD Primary Care Provider, Refer ring Provider Active Dr. Vahe Nobles DO Attending Provider Active Team Status: Inactive Member Role Status Dates Dr. Ronnie Hull MD Primary Care Provider, Refer ring Provider Active Dr. Kvng Nunez MD Attending Provider Active Team Status: Inactive Member Role Status Dates Dr. Ronnie Hull MD Primary Care P mandeep, Attending Provider, Referring Provider Active Team Status: Inactive Member Role Status Dates Dr. Ronnie Hull MD Primary Care Provider Active Dr. Neema Kaba MD Attending Provider, Re ferring Provider Active Team Status: Inactive Member Role Status Dates Dr. Ronnie Hull MD Primary Care Provider Active Dr. Vahe Nobles DO Attending Provider Active Team Status: Inactive Member Role Status Dates Dr. Ronnie Hull MD Primary Care Provider Active Dr. Marycarmen Stevens MD Attending Provider Active Team Status: Inactive Member Role Status Dates Dr. Ronnie Hull MD Primary Care Provider, Atten ding Provider Active Team Status: Inactive Member Role Status Dates Dr. Ronnie Hull MD Primary Care Provider, Refer ring Provider Active Dr. Dontrell Torres MD Attending Provider Active Team Status: Inactive Member Role Status Dates Dr. Ronnie Hull MD Primary Care Provider Active Dr. Marycarmen Stevens MD Attending Provider, Referring Provider Active Team Status: Inactive Member Role Status Dates Dr. Ronnie Hull MD Primary Care Provider Active Dr. Dontrell Torres MD Attending Provider, Referring Pro vider Active Team Status: Inactive Member Role Status Dates Dr. Ronnie Hull MD Primary Care Provider Active Dr. Vahe Nobles DO Attending Provider, Referring Provider Active Team Status: Active Member Role Status Dates Dr. Ronnie Hull MD Primary Care Provider Active Dr. Kvng Nunez MD Attending Provider , Referring Provider, Other Provider Active Team Status: Inactive Member Role Status Dates Dr. Ronnie Hull MD Primary Care Provider Active Dr. Kvng Nunez MD Attending Provider, Referring Pr ovider Active Team Status: Active Member Role Status Dates Dr. Ronnie Hull MD Primary Care Provider Active Dr. Kvng Nunez MD Attending Provider, Referring Pr ovider Active Team Status: Inactive Member Role Status Dates Dr. Ronnie Hull MD Primary Care Provider, Refer ring Provider Active Rekha Dorman ASSOCIATE SALES REPRESENTATIVE, ASSOCIATE 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 Attending Provider Active Team Status: Inactive Member Role Status Dates Dr. Ronnie Hull MD Primary Care Provider, Refer ring Provider Active Jayme Brennan PA, PA Attending Provider Active Team Status: Inactive Member Role Status Dates Dr. Ronnie Hull MD Primary Care Provider Active Dr. Orlando Stein MD Attending Provider Active Team Status: Inactive Member Role Status Dates Dr. Ronnie Hull MD Primary Care Provider Active Dr. Scarlett Mancilla MD Attending Provider, Referring Pr ovider Active Auto Research Engineer Relationship Specialty Start Date End Date Ronnie Hull MD [address] [phone] PCP - General Internal Medicine 10/20/23 Auto Research Engineer Relationship Specialty Start Date End Date Ronnie Hull MD [address] [phone] PCP - General Internal Medicine 10/20/23 Team Status: Inactive Member Role Status Dates Dr. Ronnie Hull MD Primary Care Provider, Refer ring Provider Active Artemio BORDEN PA Attending Provider Active Team Status: Active Member Role Status Dates Dr. Dontrell Torres MD Attending Provider Active Dr. Ronnie Hull MD Primary Care Provider, Famil y Provider Active DEFINED NOT Referring Provider Active Team Status: Active Member Role Status Dates Dr. Ronnie Hull MD Primary Care Provider Active Artemio BORDEN PA Attending Provider, Referring Pr ovider Active Team Status: Inactive Member Role Status Dates Dr. Ronnie Hull MD Primary Care Provider Active Dr. Cortez Leong DO Emergency Provider Active Team Status: Inactive Member Role Status Dates Dr. Ronnie Hull MD Primary Care Provider Active Artemio BORDEN PA Attending Provider, Referring Pr ovider Active Team Status: Inactive Member Role Status Dates Dr. Ronnie Hull MD Primary Care Provider Active Dr. Cortez Leong DO Attending Provider, Emergency P rovider Active Auto Research Engineer Relationship Specialty Start Date End Date Ronnie Hull MD [address] [phone] PCP - General Internal Medicine 10/20/23 Auto Research Engineer Relationship Specialty Start Date End Date Ronnie Hull MD [address] [phone] PCP - General Internal Medicine 10/20/23 Auto Research Engineer Relationship Specialty Start Date End Date Ronnie Hull MD [address] [phone] PCP - General Internal Medicine 10/20/23 Auto Research Engineer Relationship Specialty Start Date End Date Gabe Linn MD William Montoya [facility] [address] [place] [id number] PCP - General Internal Medicine 03/02/24 Team Status: Active Member Role Status Dates Dr. Gamaliel Whitehead MD Primary Care Provider Active Team Status: Inactive Member Role Status Dates Dr. Lisa Barraza DO Emergency Provider Active Start: August 07, 2024 End: August 12, 2024 No Primary Care Physician Primary Care Provider Active Start: August 07, 2024 End: August 12, 2024 Dr. Alexandra Lugo DO Admit Provider Active Start: August 07, 2024 End: August 12, 2024 Dr. Alexandra Lugo DO Other Provider Active Start: August 07, 2024 End: August 12, 2024 Dr. Shlomo Palmer DO Other Provider Active Start: August 07, 2024 End: August 12, 2024 Dr. Shlomo Goins MD Attending Provider Active Start: August 07, 2024 End: August 12, 2024 Dr. Valeria Smith MD Other Provider Active St art: August 07, 2024 End: August 12, 2024 Team Status: Active Member Role Status Dates Dr. Lisa Barraza DO Emergency Provider Active Start: August 08, 2024 No Primary Care Physician Primary Care Provider Active Start: August 08, 2024 Dr. Alexandra Lugo DO Admit Provider Active Start: August 08, 2024 Dr. Alexandra Lugo DO Other Provider Active Start: August 08, 2024 Dr. Valeria Smith MD Attending Provider Active Start: August 08, 2024 Dr. Valeria Smith MD Other Provider Active St art: August 08, 2024 Dr. Shlomo Palmer DO Other Provider Active Start: August 08, 2024 Team Status: Active Member Role Status Dates Dr. Lisa Barraza DO Emergency Provider Active Start: August 09, 2024 No Primary Care Physician Primary Care Provider Active Start: August 09, 2024 Dr. Alexandra Lugo DO Admit Provider Active Start: August 09, 2024 Dr. Alexandra Lugo DO Other Provider Active Start: August 09, 2024 Dr. Shlomo Palmer DO Other Provider Active Start: August 09, 2024 Dr. Shlomo Goins MD Attending Provider Active Start: August 09, 2024 Dr. Shlomo Goins MD Other Provider Active Start: August 09, 2024 Dr. Valeria Smith MD Other Provider Active St art: August 09, 2024 Team Status: Active Member Role Status Dates Dr. Lisa Barraza DO Emergency Provider Active Start: August 10, 2024 No Primary Care Physician Primary Care Provider Active Start: August 10, 2024 Dr. Alexandra Lugo DO Admit Provider Active Start: August 10, 2024 Dr. Alexandra Lugo DO Other Provider Active Start: August 10, 2024 Dr. Shlomo Palmer DO Other Provider Active Start: August 10, 2024 Dr. Shlomo Goins MD Attending Provider Active Start: August 10, 2024 Dr. Shlomo Goins MD Other Provider Active Start: August 10, 2024 Dr. Valeria Smith MD Other Provider Active St art: August 10, 2024 Team Status: Active Member Role Status Dates Dr. Lisa Barraza DO Emergency Provider Active Start: August 11, 2024 No Primary Care Physician Primary Care Provider Active Start: August 11, 2024 Dr. Alexandra Lugo DO Admit Provider Active Start: August 11, 2024 Dr. Alexandra Lugo DO Other Provider Active Start: August 11, 2024 Dr. Shlomo Palmer DO Other Provider Active Start: August 11, 2024 Dr. Shlomo Goins MD Attending Provider Active Start: August 11, 2024 Dr. Shlomo Goins MD Other Provider Active Start: August 11, 2024 Dr. Valeria Smith MD Other Provider Active St art: August 11, 2024 Team Status: Active Member Role Status Dates Dr. Lisa Barraza DO Emergency Provider Active Start: August 12, 2024 No Primary Care Physician Primary Care Provider Active Start: August 12, 2024 Dr. Alexandra Lugo DO Admit Provider Active Start: August 12, 2024 Dr. Alexandra Lugo DO Other Provider Active Start: August 12, 2024 Dr. Shlomo Palmer DO Other Provider Active Start: August 12, 2024 Dr. Shlomo Goins MD Attending Provider Active Start: August 12, 2024 Dr. Shlomo Goins MD Other Provider Active Start: August 12, 2024 Dr. Valeria Smith MD Other Provider Active St art: August 12, 2024 Team Status: Inactive Member Role Status Dates Dr. Gamaliel Whitehead MD Primary Care Provider Active Start: September 16, 2024 End: September 16, 2024 Dr. Gamaliel Whitehead MD Attending Provider Active Start: September 16, 2024 End: September 16, 2024 Dr. Gamaliel Whitehead MD Referring Provider Active Start: September 16, 2024 End: September 16, 2024 Team Status: Inactive Member Role Status Dates Dr. Addison Linn MD Referring Provider Active Start: October 21, 2024 End: October 21, 2024 Dr. Vahe Nobles DO Attending Provider Active Start: October 21, 2024 End: October 21, 2024 Dr. Gamaliel Whitehead MD Primary Care Provider Active Start: October 21, 2024 End: October 21, 2024 Team Status: Inactive Member Role Status Dates Dr. Gamaliel Whitehead MD Primary Care Provider Active Start: November 19, 2024 End: November 19, 2024 Dr. Marycarmen Stevens MD Attending Provider Active Start: November 19, 2024 End: November 19, 2024 Dr. Marycarmen Stevens MD Referring Provider Active Start: November 19, 2024 End: November 19, 2024 Team Status: Active Member Role Status Dates Dr. Neema Kaba MD Attending Provider Act catherine Start: November 23, 2024 Dr. Neema Kaba MD Referring Provider Act catherine Start: November 23, 2024 Dr. Gamaliel Whitehead MD Primary Care Provider Active Start: November 23, 2024 Team Status: Inactive Member Role Status Dates Dr. Neema Kaba MD Attending Provider Act catherine Start: November 23, 2024 End: November 23, 2024 Dr. Neema Kaba MD Referring Provider Act catherine Start: November 23, 2024 End: November 23, 2024 Dr. Gamaliel Whitehead MD Primary Care Provider Active Start: November 23, 2024 End: November 23, 2024 Team Status: Inactive Member Role Status Dates Dr. Gamaliel Whitehead MD Primary Care Provider Active Start: December 09, 2024 End: December 10, 2024 Dr. Raghav Ramon MD Attending Provider Active Start: December 09, 2024 End: December 10, 2024 Dr. Raghav Ramon MD Emergency Provider Active Start: December 09, 2024 End: December 10, 2024 Dr. Dontrell Torres MD Other Provider Active Start : December 09, 2024 End: December 10, 2024 Dr. Neema Kaba MD Other Provider Active Start: December 09, 2024 End: December 10, 2024 Team Status: Inactive Member Role Status Dates Dr. Gamaliel Whitehead MD Primary Care Provider Active Start: December 22, 2024 End: December 22, 2024 Dr. Gamaliel Whitehead MD Referring Provider Active Start: December 22, 2024 End: December 22, 2024 Nancy Ge Attending Provider Active Start: 2024 End: December 22, 2024 Team Status: Inactive Member Role Status Dates Dr. Gamaliel Whitehead MD Primary Care Provider Active Start: December 22, 2024 End: December 22, 2024 Dr. Neema Kaba MD Attending Provider Act catherine Start: December 22, 2024 End: December 22, 2024 Dr. Neema Kaba MD Referring Provider Act catherine Start: December 22, 2024 End: December 22, 2024 Team Status: Inactive Member Role Status Dates Dr. Gamaliel Whitehead MD Primary Care Provider Active Start: January 06, 2025 End: January 06, 2025 Dr. Gamaliel Whitehead MD Referring Provider Active Start: January 06, 2025 End: January 06, 2025 Dr. Dontrell Torres MD Attending Provider Active S tart: January 06, 2025 End: January 06, 2025 Team Status: Inactive Member Role Status Dates Dr. Addison Linn MD Referring Provider Active Start: January 18, 2025 End: January 18, 2025 JEREMIAH Gomez Attending Provider Active Start: January 18, 2025 End: January 18, 2025 Dr. Gamaliel Whitehead MD Primary Care Provider Active Start: January 18, 2025 End: January 18, 2025 Team Status: Inactive Member Role Status Dates Dr. Gamaliel Whitehead MD Primary Care Provider Active Start: January 21, 2025 End: January 21, 2025 Dr. Gamaliel Whitehead MD Referring Provider Active Start: January 21, 2025 End: January 21, 2025 Kimber Arce Attending Provider Active Star t: January 21, 2025 End: January 21, 2025 Team Status: Active Member Role/Relationship Status Dates Dr. Gamaliel Whitehead MD Primary Care Provider Active Team Status: Inactive Member Role/Relationship Status Dates Dr. Addison Linn MD Referring Provider Active Start: October 21, 2024 End: October 21, 2024 Dr. Vahe Nobles DO Attending Provider Active Start: October 21, 2024 End: October 21, 2024 Dr. Gamaliel Whitehead MD Primary Care Provider Active Start: October 21, 2024 End: October 21, 2024 Team Status: Inactive Member Role/Relationship Status Dates Dr. Gamaliel Whitehead MD Primary Care Provider Active Start: November 19, 2024 End: November 19, 2024 Dr. Marycarmen Stevens MD Attending Provider Active Start: November 19, 2024 End: November 19, 2024 Dr. Marycarmen Stevens MD Referring Provider Active Start: November 19, 2024 End: November 19, 2024 Team Status: Inactive Member Role/Relationship Status Dates Dr. Neema Kaba MD Attending Provider Act catherine Start: November 23, 2024 End: November 23, 2024 Dr. Neema Kaba MD Referring Provider Act catherine Start: November 23, 2024 End: November 23, 2024 Dr. Gamaliel Whitehead MD Primary Care Provider Active Start: November 23, 2024 End: November 23, 2024 Team Status: Inactive Member Role/Relationship Status Dates Dr. Gamaliel Whitehead MD Primary Care Provider Active Start: December 09, 2024 End: December 10, 2024 Dr. Raghav Ramon MD Attending Provider Active Start: December 09, 2024 End: December 10, 2024 Dr. Raghav Ramon MD Emergency Provider Active Start: December 09, 2024 End: December 10, 2024 Dr. Dontrell Torres MD Other Provider Active Start : December 09, 2024 End: December 10, 2024 Dr. Neema Kaba MD Other Provider Active Start: December 09, 2024 End: December 10, 2024 Team Status: Inactive Member Role/Relationship Status Dates Dr. Gamaliel Whitehead MD Primary Care Provider Active Start: December 22, 2024 End: December 22, 2024 Dr. Gamaliel Whitehead MD Referring Provider Active Start: December 22, 2024 End: December 22, 2024 Nancy Ge Attending Provider Active Start: 2024 End: December 22, 2024 Team Status: Inactive Member Role/Relationship Status Dates Dr. Gamaliel Whitehead MD Primary Care Provider Active Start: December 22, 2024 End: December 22, 2024 Dr. Neema Kaba MD Attending Provider Act catherine Start: December 22, 2024 End: December 22, 2024 Dr. Neema Kaba MD Referring Provider Act catherine Start: December 22, 2024 End: December 22, 2024 Team Status: Inactive Member Role/Relationship Status Dates Dr. Gamaliel Whitehead MD Primary Care Provider Active Start: January 06, 2025 End: January 06, 2025 Dr. Gamaliel Whitehead MD Referring Provider Active Start: January 06, 2025 End: January 06, 2025 Dr. Dontrell Torres MD Attending Provider Active S tart: January 06, 2025 End: January 06, 2025 Team Status: Inactive Member Role/Relationship Status Dates Dr. Addison Linn MD Referring Provider Active Start: January 18, 2025 End: January 18, 2025 JEREMIAH Gomez Attending Provider Active Start: January 18, 2025 End: January 18, 2025 Dr. Gamaliel Whitehead MD Primary Care Provider Active Start: January 18, 2025 End: January 18, 2025 Team Status: Inactive Member Role/Relationship Status Dates Dr. Gamaliel Whitehead MD Primary Care Provider Active Start: January 21, 2025 End: January 21, 2025 Dr. Gamaliel Whitehead MD Referring Provider Active Start: January 21, 2025 End: January 21, 2025 Kimber Arce Attending Provider Active Star t: January 21, 2025 End: January 21, 2025 Team Status: Active Member Role/Relationship Status Dates Dr. Gamaliel Whitehead MD Primary Care Provider Active Start: February 08, 2025 JEREMIAH Gomez Attending Provider Active Start: February 08, 2025 JEREMIAH Gomez Referring Provider Active Start: February 08, 2025 Team Status: Active Member Role/Relationship Status Dates Dr. Gamaliel Whitehead MD Primary Care Provider Active Start: February 09, 2025 Dr. Marycarmen Stevens MD Attending Provider Active Start: February 09, 2025 Dr. Marycarmen Stevens MD Referring Provider Active Start: February 09, 2025 Team Status: Inactive Member Role/Relationship Status Dates Dr. Gamaliel Whitehead MD Primary Care Provider Active Start: February 10, 2025 End: February 11, 2025 Dr. Torres Koroma MD Emergency Provider Active S tart: February 10, 2025 End: February 11, 2025 Team Status: Inactive Member Role/Relationship Status Dates Dr. Gamaliel Whitehead MD Primary Care Provider Active Start: February 08, 2025 End: February 08, 2025 JEREMIAH Gomez Attending Provider Active Start: February 08, 2025 End: February 08, 2025 Nell [place] NP-Luis E Referring Provider Active Start: February 08, 2025 End: February 08, 2025 Team Status: Inactive Member Role/Relationship Status Dates Dr. Gamaliel Whitehead MD Primary Care Provider Active Start: November 19, 2024 End: November 19, 2024 Dr. Marycarmen Stevens MD Attending Provider Active Start: November 19, 2024 End: November 19, 2024 Dr. Marycarmen Stevens MD Referring Provider Active Start: November 19, 2024 End: November 19, 2024 Team Status: Inactive Member Role/Relationship Status Dates Dr. Neema Kaba MD Attending Provider Act catherine Start: November 23, 2024 End: November 23, 2024 Dr. Neema Kaba MD Referring Provider Act catherine Start: November 23, 2024 End: November 23, 2024 Dr. Gamaliel Whitehead MD Primary Care Provider Active Start: November 23, 2024 End: November 23, 2024 Team Status: Inactive Member Role/Relationship Status Dates Dr. Gamaliel Whitehead MD Primary Care Provider Active Start: December 09, 2024 End: December 10, 2024 Dr. Raghav Ramon MD Attending Provider Active Start: December 09, 2024 End: December 10, 2024 Dr. Raghav Ramon MD Emergency Provider Active Start: December 09, 2024 End: December 10, 2024 Dr. Dontrell Torres MD Other Provider Active Start : December 09, 2024 End: December 10, 2024 Dr. Neema Kaba MD Other Provider Active Start: December 09, 2024 End: December 10, 2024 Team Status: Inactive Member Role/Relationship Status Dates Dr. Gamaliel Whitehead MD Primary Care Provider Active Start: December 22, 2024 End: December 22, 2024 Dr. Gamaliel Whitehead MD Referring Provider Active Start: December 22, 2024 End: December 22, 2024 Nancy Ge Attending Provider Active Start: 2024 End: December 22, 2024 Team Status: Inactive Member Role/Relationship Status Dates Dr. Gamaliel Whitehead MD Primary Care Provider Active Start: December 22, 2024 End: December 22, 2024 Dr. Neema Kaba MD Attending Provider Act catherine Start: December 22, 2024 End: December 22, 2024 Dr. Neema Kaba MD Referring Provider Act catherine Start: December 22, 2024 End: December 22, 2024 Team Status: Inactive Member Role/Relationship Status Dates Dr. Gamaliel Whitehead MD Primary Care Provider Active Start: January 06, 2025 End: January 06, 2025 Dr. Gamaliel Whitehead MD Referring Provider Active Start: January 06, 2025 End: January 06, 2025 Dr. Dontrell Torres MD Attending Provider Active S tart: January 06, 2025 End: January 06, 2025 Team Status: Inactive Member Role/Relationship Status Dates Dr. Addison Linn MD Referring Provider Active Start: January 18, 2025 End: January 18, 2025 JEREMIAH Gomez Attending Provider Active Start: January 18, 2025 End: January 18, 2025 Dr. Gamaliel Whitehead MD Primary Care Provider Active Start: January 18, 2025 End: January 18, 2025 Team Status: Inactive Member Role/Relationship Status Dates Dr. Gamaliel Whitehead MD Primary Care Provider Active Start: January 21, 2025 End: January 21, 2025 Dr. Gamaliel Whitehead MD Referring Provider Active Start: January 21, 2025 End: January 21, 2025 Kimberashley Arce Attending Provider Active Star t: January 21, 2025 End: January 21, 2025 Team Status: Inactive Member Role/Relationship Status Dates Dr. Gamaliel Whitehead MD Primary Care Provider Active Start: February 08, 2025 Dr. Lata Chappell MD Attending Provider Active Start: February 08, 2025 Team Status: Inactive Member Role/Relationship Status Dates Dr. Gamaliel Whitehead MD Primary Care Provider Active Start: February 09, 2025 End: March 10, 2025 Dr. Marycarmen Stevens MD Attending Provider Active Start: February 09, 2025 End: March 10, 2025 Dr. Marycarmen Stevens MD Referring Provider Active Start: February 09, 2025 End: March 10, 2025 Team Status: Inactive Member Role/Relationship Status Dates Dr. Gamaliel Whitehead MD Primary Care Provider Active Start: February 10, 2025 End: February 11, 2025 Dr. Torres Koroma MD Attending Provider Active S tart: February 10, 2025 End: February 11, 2025 Dr. Torres Koroma MD Emergency Provider Active S tart: February 10, 2025 End: February 11, 2025 Team Status: Active Member Role/Relationship Status Dates Dr. Gamaliel Whitehead MD Primary Care Provider Active Start: March 10, 2025 Dr. Gamaliel Whitehead MD Referring Provider Active Start: March 10, 2025 Dr. Neema Kaba MD Attending Provider Act catherine Start: March 10, 2025 Team Status: Inactive Member Role/Relationship Status Dates Dr. Gamaliel Whitehead MD Primary Care Provider Active Start: December 09, 2024 End: December 10, 2024 Dr. Raghav Ramon MD Attending Provider Active Start: December 09, 2024 End: December 10, 2024 Dr. Raghav Ramon MD Emergency Provider Active Start: December 09, 2024 End: December 10, 2024 Dr. Dontrell Torres MD Other Provider Active Start : December 09, 2024 End: December 10, 2024 Dr. Neema Kaba MD Other Provider Active Start: December 09, 2024 End: December 10, 2024 Team Status: Inactive Member Role/Relationship Status Dates Dr. Gamaliel Whitehead MD Primary Care Provider Active Start: December 22, 2024 End: December 22, 2024 Dr. Gamaliel Whitehead MD Referring Provider Active Start: December 22, 2024 End: December 22, 2024 Nancy Ge Attending Provider Active Start: 2024 End: December 22, 2024 Team Status: Inactive Member Role/Relationship Status Dates Dr. Gamaliel Whitehead MD Primary Care Provider Active Start: December 22, 2024 End: December 22, 2024 Dr. Neema Kaba MD Attending Provider Act catherine Start: December 22, 2024 End: December 22, 2024 Dr. Neema Kaba MD Referring Provider Act catherine Start: December 22, 2024 End: December 22, 2024 Team Status: Inactive Member Role/Relationship Status Dates Dr. Gamaliel Whitehead MD Primary Care Provider Active Start: January 06, 2025 End: January 06, 2025 Dr. Gamaliel Whitehead MD Referring Provider Active Start: January 06, 2025 End: January 06, 2025 Dr. Dontrell Torres MD Attending Provider Active S tart: January 06, 2025 End: January 06, 2025 Team Status: Inactive Member Role/Relationship Status Dates Dr. Addison Linn MD Referring Provider Active Start: January 18, 2025 End: January 18, 2025 JEREMIAH Gomez Attending Provider Active Start: January 18, 2025 End: January 18, 2025 Dr. Gamaliel Whitehead MD Primary Care Provider Active Start: January 18, 2025 End: January 18, 2025 Team Status: Inactive Member Role/Relationship Status Dates Dr. Gamaliel Whitehead MD Primary Care Provider Active Start: January 21, 2025 End: January 21, 2025 Dr. Gamaliel Whitehead MD Referring Provider Active Start: January 21, 2025 End: January 21, 2025 Kimber Arce Attending Provider Active Star t: January 21, 2025 End: January 21, 2025 Team Status: Inactive Member Role/Relationship Status Dates Dr. Gamaliel Whitehead MD Primary Care Provider Active Start: February 08, 2025 Dr. Lata Chappell MD Attending Provider Active Start: February 08, 2025 Team Status: Inactive Member Role/Relationship Status Dates Dr. Gamaliel Whitehead MD Primary Care Provider Active Start: February 08, 2025 End: February 08, 2025 JEREMIAH Gomez Attending Provider Active Start: February 08, 2025 End: February 08, 2025 JEREMIAH Gomez Referring Provider Active Start: February 08, 2025 End: February 08, 2025 Team Status: Inactive Member Role/Relationship Status Dates Dr. Gamaliel Whitehead MD Primary Care Provider Active Start: February 09, 2025 End: March 10, 2025 Dr. Marycarmen Stevens MD Attending Provider Active Start: February 09, 2025 End: March 10, 2025 Dr. Marycarmen Stevens MD Referring Provider Active Start: February 09, 2025 End: March 10, 2025 Team Status: Inactive Member Role/Relationship Status Dates Dr. Gamaliel Whitehead MD Primary Care Provider Active Start: February 10, 2025 End: February 11, 2025 Dr. Torres Koroma MD Attending Provider Active S tart: February 10, 2025 End: February 11, 2025 Dr. Torres Koroma MD Emergency Provider Active S tart: February 10, 2025 End: February 11, 2025 Team Status: Inactive Member Role/Relationship Status Dates Dr. Gamaliel Whitehead MD Primary Care Provider Active Start: March 10, 2025 End: March 10, 2025 Dr. Gamaliel Whitehead MD Referring Provider Active Start: March 10, 2025 End: March 10, 2025 Dr. Neema Kaba MD Attending Provider Act catherine Start: March 10, 2025 End: March 10, 2025 Auto Research Engineer Relationship Specialty Start Date End Date Gabe Linn MD PCP - General Internal Medicine 03/02/24 Shiva Lindo DDS Dentist Prosthodontics 03/09/25 Soha Yarbrough DDS Mold Breaker Prosthodontics 03/09/25 Source Comments (unrecognize d section and content) In the event this informatio n is protected by the Federal Confidentiality of Alcohol and Drug Abuse Patient Records regulations: The Federal rules restrict any use of the information to criminally investigate or prosecute any alcohol or drug abuse patient.[facility] the event this information is protected by the Federal Confidentiality of Alcohol and Drug Abuse Patient Records regulations: The Federal rules restrict any use of the information to criminally investigate or prosecute any alcohol or drug abuse patient.[facility] the event this information is protected by the Federal Confidentiality of Alcohol and Drug Abuse Patient Records regulations: The Federal rules restrict any use of the information to criminally investigate or prosecute any alcohol or drug abuse patient.[facility] Reason for Visit (unrecogniz ed section and content) Reason Comments Received Outside Medical Records Referra l for [facility] from [facility] Pulmonary Medicine [facility] Reason Comments Referral Request Reason Comments Follow-up Reason Comments Refill Request Reason Comments Neuropsychological Testing Specialty Diagnoses / Procedures Referred By Contac t Referred To Contact Psychiatry Diagnoses Cognitive impairment Angélica Ingram MD [address] [place] [address] Referral ID Status Reason Start Date Expiration Date V isits Requested Visits Authorized [id number] New Request 05/28/2023 06/21/2024 1 1 Reason Comments Follow-up Reason Comments Follow-up [address] up [address] sleep study Reason Comments New Patient Specialty Diagnoses / Procedures Referred By Contac t Referred To Contact Neurology Diagnoses Cognitive impairment Angélica Ingram MD [address] [place] [address] Referral ID Status Reason Start Date Expiration Date V isits Requested Visits Authorized [id number] New Request 05/28/2023 06/21/2024 1 1 Specialty Diagnoses / Procedures Referred By Contac t Referred To Contact Diagnoses Loss of memory Procedures MRI BRAIN WITHOUT CONTRAST CHG MRI BRAIN BRAIN STEM W/[place] [address] [place] [address] [place] [address] Referral ID Status Reason Start Date Expiration Date V isits Requested Visits Authorized [id number] New Request 02/03/2024 02/27/2025 1 1 Reason Comments Procedure INFORMATION SOURCE (unrecogn ized section and content) DATE CREATED AUTHOR 11/22/2022 [facility] DATE CREATED AUTHOR AUTHOR'S ORGANIZ ATION 03/05/2024 [facility] DATE CREATED AUTHOR AUTHOR'S ORGANIZ ATION 12/20/2024 [facility] DATE CREATED AUTHOR AUTHOR'S ORGANIZ ATION 12/22/2024 [facility] DATE CREATED AUTHOR AUTHOR'S ORGANIZ ATION 05/04/2025 [facility] FOR RECORDS PERTAINING TO PATIENTS WHO ARE [...] BE BASED ON THE PRIMARY CLINICAL RECORDS. [facility]. provides no warranty or guarantee of the accuracy or completeness of information in this document.
== END | disposition home or self-care (01) ==
LOC: SL 20:24
PROVIDERS: PCP Family Medicine; Referring Provider Nurse Practitioner Family; Visit Provider Nurse Practitioner Family
DX: G47.33 Obstructive sleep apnea (adult) (pediatric) (principal)
CPT/HCPCS: 95811

== ENCOUNTER → 2025-06-13 | Outpatient (CLI) | payer MEDICARE, OTHER, SELFPAY ==
[2025-06-13 10:05] LABS: Creatinine, Urine (random) 52.70 mg/dL (28.00-217.00); Microalbumin,Random Urine 15.9 mg/L (<20 mg/L)
[2025-06-13 10:48] LABS: AST(SGOT) 28 U/L (<=31); Alanine Aminotransfer ALT/SGPT 21 U/L (<=34); Albumin, Serum 4.3 g/dL (3.4-4.8); Alkaline Phosphatase 96 U/L (35-104); Anion Gap 11 (5-15); BUN 17 mg/dL (4-19); BUN/Creat Ratio 25.9 RATIO (10-20); Calcium,Total 9.7 mg/dL (7.6-11.0); Carbon Dioxide 24.6 mmol/L (21.0-32.0); Chloride 103 mmol/L (98-108); Cholesterol 161 mg/dL (<=200); Free T3 2.7 pg/mL (2.18-3.98); Globulin 2.7 g/dL (2.2-4.2); Glucose 112 mg/dL (70-99); Low Density Lipoprotein Calc. 64 mg/dL; Potassium 3.6 mmol/L (3.3-5.1); Triglycerides 89 mg/dL; Very Low Density Lipoprotein 18 mg/dL (5-40); Vitamin D,25 Hydroxy 53.4 ng/mL (30-100); cholesterol:hdl ratio screen 1.99
== END | disposition home or self-care (01) ==
LOC: LAB.FUTURE 09:10
PROVIDERS: PCP Family Medicine; Referring Provider Internal Medicine Endocrinology, Diabetes & Metabolism; Visit Provider Internal Medicine Endocrinology, Diabetes & Metabolism
DX: E27.40 Unspecified adrenocortical insufficiency (principal); E03.9 Hypothyroidism, unspecified; E78.00 Pure hypercholesterolemia, unspecified; E55.9 Vitamin D deficiency, unspecified; R73.03 Prediabetes
CPT/HCPCS: 36415; 80053; 80061; 82043; 82306; 82570; 83036; 84439; 84443; 84481

== ENCOUNTER 2025-07-10 08:56 | Outpatient (RCR) | payer MEDICARE, OTHER, SELFPAY ==
[2025-07-10 09:22] LABS: Hematocrit 42.5 % (37-47); Hemoglobin 14.0 g/dL (12.0-15.0); Immature Granulocytes Count 0.040 X10^3/uL (0.0-0.0); Mean Corp Hgb Conc 32.9 g/dL (32-36); Mean Corpuscular Volume 93.8 fL (81-99); Mean Platelet Vol. 9.2 fl (6.2-12.0); NRBC Flagged by Analyzer 0 % (0-5); Platelet Count 364 K/mm3 (150-450); RBC Distribution Width CV 13.5 % (11.6-14.6); RBC Distribution Width SD 46.0 fl (35.1-43.9); Red Blood Count 4.53 M/mm3 (4.2-5.4); White Blood Count 7.8 K/mm3 (4.4-11.0)
[2025-07-10 09:39] LABS: AST(SGOT) 24 U/L (<=31); Alanine Aminotransfer ALT/SGPT 18 U/L (<=34); Albumin, Serum 4.5 g/dL (3.4-4.8); Alkaline Phosphatase 99 U/L (35-104); Anion Gap 13 (5-15); BUN 12 mg/dL (4-19); BUN/Creat Ratio 16.2 RATIO (10-20); Calcium,Total 9.8 mg/dL (7.6-11.0); Carbon Dioxide 25.4 mmol/L (21.0-32.0); Chloride 100 mmol/L (98-108); Globulin 2.8 g/dL (2.2-4.2); Glucose 113 mg/dL (70-99); Potassium 4.0 mmol/L (3.3-5.1)
== END 2025-07-10 18:00 | disposition home or self-care (01) ==
LOC: LAB 08:56
PROVIDERS: PCP Family Medicine; Referring Provider Internal Medicine Rheumatology; Visit Provider Internal Medicine Rheumatology
DX: M06.4 Inflammatory polyarthropathy (principal); Z79.899 Other long term (current) drug therapy; M79.7 Fibromyalgia; M17.0 Bilateral primary osteoarthritis of knee; M16.0 Bilateral primary osteoarthritis of hip
CPT/HCPCS: 36415; 80053; 85025

== ENCOUNTER → 2025-07-10 | Outpatient (CLI) | payer MEDICARE, OTHER, SELFPAY ==
--- OUTSIDE RECORDS SUMMARY | 2025-07-10 08:59 | XMS RPT_ITS | CCD ---
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 Yoanna Hull Primary Care Provider [phone] Dr. Kvng Nunez Attending Provider Dr. Kvng Nunez Referring Provider Dr. Yoanna Hull Referring Provider [phone] Dr. Vahe Nobles Attending Provider [phone]) Dr. Yoanna Hull Attending Provider [phone] SUHA Mendoza Attending Provider Dr. Orlando Stein Attending Provider SUHA Mendoza Referring Provider Dr. Dontrell Torres Attending Provider Dr. Vahe Nobles Referring Provider [phone] Dr. Vahe Nobles Other Provider [phone] Dr. Yoanna Hull Primary Care Provider 1(33 0) Lakia EMPLOYMENT CLERK, EMPLOYMENT CLERK-C Rekha Attending Provider Dr. Yoanna Hull Primary Care Provider [phone] Dr. Vahe Nobles Attending Provider [phone]) Dr. Yoanna Hull Referring Provider [phone] Dr. Yoanna Hull Attending Provider [phone] René EMPLOYMENT CLERK, EMPLOYMENT CLERK-C Bharati Muniz Attending Provider [phone] Dr. Yoanna Hull Primary Care Provider 1(33 0) Dr. Vahe Nobles Attending Provider [phone] Lakia EMPLOYMENT CLERK, EMPLOYMENT CLERK-C Rekha Referring Provider [phone] Lakia EMPLOYMENT CLERK, EMPLOYMENT CLERK-C Rekha Other Provider Dr. Kvng Nunez Attending Provider [facility] [place] Toya Referring Provider Unavailab Tiro, [place] Other Provider Unavailable Dr. Yoanna Hull Primary Care Provider 1(33 0) Kurtis, Dr. Lenz Referring Provider [phone] Kurtis, Dr. Lenz Primary Care Provider 1(33 0) Kurtis, Dr. Lenz Referring Provider [phone] Kurtis, Dr. Lenz Primary Care Provider 1(33 0) Kurtis, Dr. Lenz Attending Provider [phone] Kurtis, Dr. Lenz Referring Provider [phone] Lakia EMPLOYMENT CLERK, EMPLOYMENT CLERK-C Rekha Referring Provider [phone] Lakia EMPLOYMENT CLERK, EMPLOYMENT CLERK-C Rekha Other Provider Dr. Kvng Nunez Attending Provider [facility] [place] Toya Referring Provider Unavailab Tiro, [place] Other Provider Unavailable René EMPLOYMENT CLERK, EMPLOYMENT CLERK-C Bharati Muniz Attending Provider [phone] Friend, Dr. Cotter Attending Provider [phone] Dr. Yoanna Hull Primary Care Provider 1(33 0) Kurtis, Dr. Lenz Referring Provider [phone] Dr. Yoanna Hull Attending Provider [phone] Kurtis, Dr. Lenz Primary Care Provider 1(33 0) Kurtis, Dr. Lenz Referring Provider [phone] Dr. Kvng Nunez Attending Provider Dr. Yoanna Hull Attending Provider [phone] Unavailable Primary Care Provider Dr. Yoanna Ching Primary Care Provider 1(33 0) Dr. Yoanna Hull Referring Provider [phone] Dr. Dontrell Torres Attending Provider Dr. Yoanna Hull Attending Provider [phone] Dr. Vahe Nobles Attending Provider [phone] Dr. Kvng Nunez Attending Provider Dr. Kvng Nunez Referring Provider Enrique, Dr. Calderon Other Provider Dr. Yoanna Hull Primary Care Provider 1(33 0) Dr. Yoanna Hull Referring Provider [phone] Lakia EMPLOYMENT CLERK, EMPLOYMENT CLERK-C Rekha Attending Provider [phone] SUHA Mendoza Attending Provider Dr. Orlando Stein Attending Provider Dr. Yoanna Hull Attending Provider [phone] Dr. Yoanna Hull Primary Care Provider 1(33 0) Dr. Yoanna Hull Primary Care Provider 1(33 0) Dr. Yoanna Hull Referring Provider [phone] Dr. Vahe Nobles Attending Provider 1(330) Dr. Yoanna Hull Attending Provider [phone] Dr. Kvng Nunez Attending Provider Unavailable Primary Care Provider Dr. Yoanna Ching Primary Care Provider 1(33 0) Dr. Yoanna Hull Referring Provider [phone] Dr. Yoanna Hull Attending Provider [phone] Yoanna Hull MD Primary Care Provider 1(3 30) Dr. Yoanna Hull Primary Care Provider [phone] Dr. Yoanna Hull Referring Provider [phone] Dr. Kvng Nunez Attending Provider Dr. Yoanna Hull Attending Provider [phone] Dr. Yoanna Hull Primary Care Provider [phone] Dr. Yoanna Hull Referring Provider [phone] Dr. Dontrell Torres Attending Provider Allyn BORDEN, SUHA Muniz Attending Provider Kaveh RENO, [facility] Primary Care Provider OLEGHE, EFEWONGBE B Primary Care Unavailable INGRAM, ANGÉLICA S Referring Unavailable THURIN, ROGER Attending Unavailable OLEGHE, EFEWONGBE B Primary Care Unavailable THURIN, ROGER Referring Unavailable THURIN, ROGER Attending Unavailable OLEGHE, EFEWONGBE B Primary Care Unavailable SELF, SELF Referring Unavailable THURIN, ROGER Attending Unavailable [facility] PROVIDER, [facility] Referring Unavailable INGRAM, ANGÉLICA S Attending [...] Provider Dr. Valeria Smith MD Other Provider Sarah RENO, Dr. Valeria Tyson Attending Provider Buster RENO, Dr. Shlomo Lopez Other Provider Charley RENO, Dr. Alston Primary Care Provider Charley RENO, Dr. Alston Attending Provider Charley RENO, Dr. Alston Referring Provider Kaveh RENO, Dr. Addison Zamora Referring Provider Hugh DO, Dr. Cotter Attending Provider Rodney [...] Provider Charley RENO, Dr. Alston Referring Provider Nell Carmona Attending Provider Kimber Arce Attending Provider Unavailabl e Suyapa WAY-CNell Referring Provider Ga RENO, Dr. Macdonald Emergency Provider [phone] Charley RENO, Dr. Alston Primary Care Provider [...] RENO, Dr. Conroy Referring Provider Kaveh RENO, [facility] Primary Care Provider Guicho DDS, Shiva Unavailable Saponaro DDS, Soha Cecy C Unavailable Gamaliel Whitehead Attending Unavailable Whitehead, Gamaliel Referring Unavailable Whitehead, Gamaliel Primary Care Unavailable Raghunathan, Neema Na Attending Unavaila ble Raghunathan, Neema Na Referring Unavaila ble Whitehead, Gamaliel Primary Care Unavailable Kimber Arce Attending Unavailable Whitehead, Gamaliel Referring Unavailable Whitehead, Gamaliel Primary Care Unavailable Raghunathan, Neema Na Attending Unavaila ble Raghunathan, Neema Na Referring Unavaila ble Whitehead, Gamaliel Primary Care Unavailable Marycarmen Stevens Attending Unavailable Railanki, Marycarmen Referring Unavailable Whitehead, Gamaliel Primary Care Unavailable Scarlett Mancilla Attending Unavailable BasaliScarlett Referring Unavailable Whitehead, Gamaliel Primary Care Unavailable Care Physician, No Primary Primary Care Unava ilable Alexandra Lugo Admitting Unavailable Alexandra Lugo Consulting Unavailable Shlomo Goins Attending Unavailable Shlomo Palmer Consulting Unavailable Valeria Smith Consulting Unavailable Railanki, Marycarmen Attending Unavailable Vellanki, Marycarmen Referring Unavailable Whitehead, Gamaliel Primary Care Unavailable VellankiMarycarmen Attending Unavailable Vellanki, Marycarmen Referring Unavailable Whitehead, Gamaliel Primary Care Unavailable Whitehead, Gamaliel Primary Care Unavailable Torres Koroma Attending Unavailable Raghunathan, Neema Na Attending Unavaila ble Raghunathan, Neema Na Referring Unavaila ble Whitehead, Gamaliel Primary Care Unavailable Raghunathan, Neema Na Attending Unavaila ble Whitehead, Gamaliel Referring Unavailable Whitehead, Gamaliel Primary Care Unavailable Nell Dale Attending Unavailable Nell Dale Referring Unavailable Whitehead, Gamaliel Primary Care Unavailable Raghunathan, Neema Na Attending Unavaila ble Whitehead, Gamaliel Primary Care Unavailable Rodney, Marycarmen Attending Unavailable Railanmohsen, Marycarmen Referring Unavailable Whitehead, Gamaliel Primary Care Unavailable Rodney, Marycarmen Attending Unavailable Railanki, Marycarmen Referring Unavailable Whitehead, Gamaliel Primary Care Unavailable Willy Stevensma Attending Unavailable Railanki, Marycarmen Referring Unavailable Whitehead, Gamaliel Primary Care Unavailable Dontrell Torres Attending Unavailable Whitehead, Gamaliel Referring Unavailable Whitehead, Gamaliel Primary Care Unavailable Nell Dale Attending Unavailable Kaveh, Addison Chi Referring Unavailable Whitehead, Gamaliel Primary Care Unavailable FriendVahe Attending Unavailable Kaveh, Addison Chi Referring Unavailable Whitehead, Gamaliel Primary Care Unavailable Rekha Dorman NP Attending Unavailable Kaveh, Addison Chi Referring Unavailable Kaveh, Addison Chi Primary Care Unavailable Friend, Vahe Attending Unavailable Whitehead, Gamaliel Referring Unavailable Whitehead, Gamaliel Primary Care Unavailable Whitehead, Gamaliel Primary Care Unavailable Raghav Ramon Attending Unavailable Dontrell Torres Consulting Unavailable Raghunathan, Neema Na Consulting Unavaila Nell Khanna Attending Unavailable Whitehead, Gamaliel Referring Unavailable Whitehead, Gamaliel Primary Care Unavailable Nancy Ge Attending Unavailable Whitehead, Gamaliel Referring Unavailable Whitehead, Gamaliel Primary Care Unavailable Kimber Arce Attending Unavailable Whitehead, Gamaliel Referring Unavailable Whitehead, Gamaliel Primary Care Unavailable Friend, Vahe Attending Unavailable Whitehead, Gamaliel Referring Unavailable Whitehead, Gamaliel Primary Care Unavailable Alexandra Lugo Admitting Unavailable Shlomo Goins Attending Unavailable Care Physician, No Primary Primary Care Unava ilable Alexandra Lugo Consulting Unavailable Shlomo Palmer Consulting Unavailable Valeria Smith Consulting Unavailable Shlomo Goins Consulting Unavailable Alexandra Lugo Attending Unavailable Valeria Smith Attending Unavailable Nell Dale Attending Unavailable Nell Dale Referring Unavailable Whitehead, Gamaliel Primary Care Unavailable Allergies Allergy Classification Reported Allergen(s) Allergy Type Date of Onset Reaction(s) Facility Anti-Epileptic Agents (2 sources) Phenytoin Drug Allergy 07-21-20 06 Rash [facility] Opioid Agonists (1 source) [facility]ulf[facility] / Trimethoprim (1 source) Sulfamethoxazole / Trimethoprim Drug Allergy 02-03-20 24 [facility] Unclassified (5 sources) Ketorolac Propensity to adverse reactions to drug 02-03-20 Anaphylaxis [facility] (7 sources) honeydew melon Propensity to adverse reactions 10-25-19 Food Allergy [facility] Work Phone: (20 sources) Ketorolac; Translations: [ketorolac tromethamine] Drug Allergy 03-30-20 07 Hives, Anaphylaxis [facility] (20 sources) Morphine Drug Allergy 10-25-[address] [facility] (20 sources) Phenytoin; Translations: [phenytoin sodium] Drug Allergy 10-25-[address] [facility] (20 sources) Phenytoin; Translations: [phenytoin sodium extended] Drug Allergy 07-21-20 06 [facility] (20 sources) Melon Allergy to substance 03-05-20 NEEDS FOLLOW-UP [facility] (14 sources) cow milk allergenic extract Drug Allergy 08-19-[address] [facility] (9 sources) Phenytoin Drug Allergy 05-26-20 23 Rash [facility] (4 sources) Sulfamethoxazole / Trimethoprim Drug Allergy 02-03-20 24 [facility] (5 sources) Food Allergies: Uncoded; Translations: [Food Allergies: Uncoded] Allergy to substance 02-11-[address] [facility] (4 sources) venom-wasp Allergy to substance 02-11-[address] [facility] (1 source) Melon Drug allergy (disorder) 07-21-[address] [facility] Repository (1 source) Milk Drug allergy (disorder) 07-21-[address] [facility] Repository (1 source) Morphine Drug Allergy 05-31-[address] [facility] Repository (1 source) venom-wasp Drug allergy (disorder) 05-31-[address] [facility] Repository Medications Current Medications Medication Drug Class(es) Dates Sig (Normalized) Sig (Original) albuterol 0.833 mg/ml / ipratropium bromide 0.167 mg/ml inhalation solution (20 sources) Anticholinergic, beta2-Adrenergic Agonist Start: 12-16-2022 End: 05-20-2023 Start: 12-16-2022 End: 05-20-2023 take 1 mL by inhalation every four hours as needed Ipratropium-Albuterol Active 3 ML INHALATION EVERY 4 HOURS NEEDED May 20, 2023 2:15pm Start: 06-21-2020 End: 01-23-2022 Start: 06-21-2020 End: 01-23-2022 take 1 mL by inhalation every six hours Ipratropium-Albuterol Discontinued 3 ML INHALATION EVERY 6 HOURS June 21, 2020 1:00am January 23, 2022 10:34am Start: 01-26-2018 End: 07-15-2018 Start: 01-26-2018 End: 07-15-2018 take 1 mL by inhalation every six hours Ipratropium-Albuterol Discontinued 3 ML INHALATION EVERY 6 HOURS July 14, 2018 2:06pm July 15, 2018 10:23am Start: 11-25-2017 End: 11-30-2017 Start: 11-25-2017 End: 11-30-2017 take 1 mL by inhalation every six hours Ipratropium-Albuterol Discontinued 3 ML INHALATION EVERY 6 HOURS 20 November 25, 2017 12:00am November 30, 2017 [...] vitamin b12 1 mg disintegrating oral tablet (10 sources) Vitamin B12 take 1 tablet by mouth once daily Cobalamin Combinations (Opurity B12/Folic Acid) 1000-200 MCG tablet Take 2,000 mcg by mouth daily. Active Handicap Placard (20 sources) Start: 11-22-2022 Handicap Placard Active 0 .ROUTE .MEDSUPPLY November 21, 2022 11:00pm As directed, length of time 3 years Start: 11-22-[address] Active 0 .ROUTE .MEDSUPPLY November 22, 2022 12:00am As directed, length [...] 12:00am February 23, 2018 2:50pm MAGNESIUM GLUCONATE (10 sources) MAGNESIUM GLUCON ATE PO Take by mouth. Active magnesium oxide 400 mg oral tablet (20 sources) Start: 02-10-2025 Start: 09-11-2021 End: 02-10-2025 modafinil 200 mg oral tablet (14 sources) Sympathomimetic-like Agent Start: 01-21-2024 End: 02-20-2024 [...] Potassium Chloride Discontinued 20 MEQ PO daily October 06, 2018 2:21pm November 16, 2018 [...] 26GX5/8) 26G X 5/8 3 ML Misc (6 sources) venlafaxine 37.5 mg oral tablet (11 [...] 30, 2018 12:00am June 01, 2018 3:15pm [id number] 200 actuat albuter ol 0.09 mg/actuat metered [...] sources) Tricyclic Antidepressant Start: 06-12-20 End: 06-12-20 21 take 100 mg by mouth at bedtime [...] End: 12-28-2015 take 1 tablet by yonatan th twice daily buPROPion SR (WELLBUTRIN SR) 150 [...] 11-02-2015 End: 04-08-2020 Ergocalciferol (Vitamin D2) Discontinued [id number] UNIT PO ROSAS November 02, 2015 12:00am April 08, 2020 12:53pm take 1 capsule by mo uth every other week Ergocalciferol 1.25 MG (04449 UT) capsule Take 1 capsule by mouth once a week. Taking 1.25mg Takes once every other week Active take 1 capsule by mo uth every week Ergocalciferol 1.25 MG (39581 UT) capsule Take 1 capsule by mouth [...] Ferrous Sulfate Discontinued 325 MG PO DAILY 90 February 19, 2022 12:00am November 21, 2022 [...] 1 spray(s) nasal route twice daily Ipratropium [place] Discontinued 2 SPRAY INTRANASAL TWICE A DAY [...] Methotrexate (Pf) Discontinu ed 0.5 MG SC TH December 22, 2019 12:00am April 08, 2020 12:53pm Start: 07-14-2018 End: 12-22-2019 Methotrexate Sodium Disconti nued 0.5 MG PO WE July 14, 2018 1:55pm December 22, 2019 1:26pm Start: 06-01-2018 End: 07-14-2018 Methotrexate Sodium Disconti nued 17.5 MG PO June 01, 2018 3:13pm July 14, 2018 [...] 2020 12:00am April 08, 2020 12:53pm nystatin [id number] unt/ml oral suspension (20 sources) Polyene Antifungal [...] sodium chloride 5860 mg / sodium sulfate 60013 mg powder for oral solution (11 sources) [...] by mouth every 6 hours. Active thyroid (correction) 15 mg oral tab let (20 sources) [...] April 30, 2022 11:00pm Start: 05-01-2022 Tirzepatide (Johana garciashakeelsarita) 2.5 mg/0.5 mL pen injector Active 2.5 [...] 04-03-2022 End: 02-10-2025 take [address] [facility] every twelve hours ursodiol 300 MG capsule [...] Translations: [Other hammer toe(s) (acquired), left foot] 06-11-2024 Chronic Allergic reactions (20 sources) Inflammatory dermatosis; Translations: [Dermatitis, unspecified] 03-05-2023 Episodic Anxiety disorders (20 sources) Mixed anxiety and depressive disorder; Translations: [Anxiety disorder, unspecified] Onset: 08-16-2024 Chronic Asthma (20 sources) Asthma; Translations: [Unspecified asthma, uncomplicated] Chronic Chronic kidney disease (5 sources) Chronic kidney disease stage 2; Translations: [Chronic kidney disease, stage 2 (mild)] Onset: 02-03-2024 02-03-2024 Chronic Chronic obstructive pulmonary disease and bronchiectasis (1 source) Chronic obstructive pulmonary disease, unspecified; Translations: [Chronic obstructive pulmonary disease, unspecified] Onset: 05-31-2025 Chronic Deficiency and other anemia (20 sources) Anemia; Translations: [Anemia, unspecified] 02-19-2022 Episodic Deficiency and other anemia (13 sources) Anemia, unspecified; Translations: [Anemia, unspecified] Episodic Diseases of white blood cells (13 sources) Leukocytosis; Translations: [Elevated white blood cell count, unspecified] 08-07-2024 Chronic Disorders of lipid metabolism (1 source) Pure hypercholesterolemia , unspecified; Translations: [Pure hypercholesterolemia , unspecified] Onset: 10-21-2024 Chronic Disorders of teeth and jaw (2 sources) Full adventism of crown of tooth needed due to large tooth adventism; Translations: [Dental adventism status] 04-04-2025 Episodic Esophageal disorders (20 sources) [...] to other viral communicable disease] 07-01-2020 Episodic Malaise and fatigue (20 sources) Malaise and fatigue; Translations: [Other malaise] Episodic Nausea and vomiting (20 sources) Nausea, [...] unspecified; Translations: [Vitamin D deficiency, unspecified] Onset: 10-21-2024 Chronic Osteoarthritis (15 sources) Arthritis of left foot; Translations: [Primary osteoarthritis, left ankle and foot] Onset: 03-10-2025 06-11-2024 Chronic Other aftercare (20 sources) intermediate card tender methotrexate user; Translations: [Other intermediate card tender (current) drug therapy] 07-09-2021 Episodic Other aftercare (3 sources) Other fpc (current) drug therapy; Translations: [Long-term (current) use [...] Unspecified adrenocortical insufficiency; 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] Onset: 10-21-2024 Chronic Other fractures (5 sources) Fracture of [...] abnormalities] 08-19-2022 Episodic Other nervous system disorders (20 sources) Abnormal [...] Chronic Other nutritional; endocrine; and metabolic disorders (10 sources) Obese class II; Translations: [Obesity, unspecified] [...] [Unspecified sleep apnea] Chronic Residual codes; unclassified (8 sources) Obstructive sleep apnea syndrome; Translations: [Obstructive [...] factor of left ankle and foot] Onset: 05-10-2025 06-11-2024 Chronic Schizophrenia and other psychotic disorders (20 sources) Delusional disorder; Translations: [Delusional disorders] 12-18-2024 Chronic Schizophrenia and other psychotic disorders (4 sources) Brief psychotic disorder; Translations: [Acute psychosis] 02-10-2025 Episodic Spondylosis; intervertebral disc disorders; other back [...] (20 sources) Hypothyroidism; Translations: [Hypothyroidism, unspecified] Onset: 10-21-2024 07-01-2020 Chronic Unclassified (4 sources) Abrasion, left knee, initial encounter 11-25-2023 Unclassified (2 sources) New Patient; Translations: [New Patient] Onset: 05-28-2023 Past or Other Problems Problem Classification Problem Date Documented Date Episodic/Chronic Diabetes mellitus without complication (20 sources) Prediabetes; Translations: [Prediabetes] Onset: 10-21-2024 Episodic E Codes: Fall (14 sources) Fall; Translations: [Unspecified fall, initial encounter] Onset: 08-16-2024 08-08-2024 Episodic Fluid and electrolyte disorders (20 sources) Hypokalemia; Translations: [Hypokalemia] Onset: 08-16-2024 Episodic Fracture of upper limb (15 sources) Closed fracture of humerus; Translations: [Unspecified fracture of shaft of humerus, left arm, initial encounter for closed fracture] Onset: 08-16-2024 08-08-2024 Episodic Other bone disease and musculoskeletal deformities (5 sources) Disorder of skeletal system; Translations: [Disorder of bone, unspecified] Onset: 11-16-2004 02-03-2024 Episodic Other nervous system disorders (1 source) Other acute postprocedural pain; Translations: [Other acute postprocedural pain] Onset: 07-21-2024 Episodic Residual codes; unclassified (3 sources) Family [...] [Other specified postprocedural states] Onset: 08-16-2024 Episodic Screening and history of mental health and substance abuse codes (1 source) Encounter for general psychiatric examination, requested by authority; Translations: [Encounter for general psychiatric examination, requested by authority] Onset: 02-16-2025 Episodic Unclassified (20 sources) Body mass index 40+ - severely obese; Translations: [Body mass index (BMI) greater than 40] Unclassified (1 source) Onset: 02-03-2024 02-03-2024 Viral infection (20 sources) COVID-19; Translations: [Severe acute respiratory syndrome coronavirus 2 (SARS-CoV-2) detected] Onset: 05-09-2020 09-25-2020 Episodic Results Test Name Value Interpretation Reference Range Facility Comprehensive Metabolic Prof santhosh 06-13-2025 Albumin [Mass/Vol] 4.3 g/dL Normal 3.4-4.8 [facility] Comment on above: Performed By: #### L 506.1001, L500.4050, L501.9520, L501.9985, L506.0400, L501.63927, L500.4100, L502.0250 ####[facility] [address] [place], [address] Albumin/Globulin [Mass ratio] 1.6 {ratio} Normal 0.9-2.[address] [facility] Comment on above: Performed By: #### L 506.1001, L500.4050, L501.9520, L501.9985, L506.0400, L501.93176, L500.4100, L502.0250 ####[facility] [address] [place], [address] ALK PHOS 96 U/L Normal 35-[address] [facility] Comment on above: Performed By: #### L 506.1001, L500.4050, L501.9520, L501.9985, L506.0400, L501.15080, L500.4100, L502.0250 ####[facility] [address] [place], [address] ALT [Catalytic activity/Vol] 21 U/L Normal <=[address] [facility] Comment on above: Performed By: #### L 506.1001, L500.4050, L501.9520, L501.9985, L506.0400, L501.13243, L500.4100, L502.0250 ####[facility] [address] [place], [address] AST [Catalytic activity/Vol] 28 U/L Normal <=[address] [facility] Comment on above: Performed By: #### L 506.1001, L500.4050, L501.9520, L501.9985, L506.0400, L501.07818, L500.4100, L502.0250 ####[facility] [address] [place], [address] Bilirubin [Mass/Vol] 0.45 mg/dL Normal 0.00-1.30 [facility] Comment on above: Performed By: #### L 506.1001, L500.4050, L501.9520, L501.9985, L506.0400, L501.10540, L500.4100, L502.0250 ####[facility] [address] [place], [address] BUN/CRE 25.9 RATIO High 10-[address] [facility] Comment on above: Performed By: #### L 506.1001, L500.4050, L501.9520, L501.9985, L506.0400, L501.40605, L500.4100, L502.0250 ####[facility] [address] [place], [address] Calcium [Mass/Vol] 9.7 mg/dL Normal 7.6-11.0 [facility] Comment on above: Performed By: #### L 506.1001, L500.4050, L501.9520, L501.9985, L506.0400, L501.29070, L500.4100, L502.0250 ####[facility] [address] [place], [address] Chloride [Moles/Vol] 103 mmol/L Normal 98-108 [facility] Comment on above: Performed By: #### L 506.1001, L500.4050, L501.9520, L501.9985, L506.0400, L501.99373, L500.4100, L502.0250 ####[facility] [address] [place], [address] CO2 [Moles/Vol] 24.6 mmol/L Normal 21.0-32.[address] [facility] Comment on above: Performed By: #### L 506.1001, L500.4050, L501.9520, L501.9985, L506.0400, L501.63864, L500.4100, L502.0250 ####[facility] [address] [place], [address] Creatinine [Mass/Vol] 0.64 mg/dL Low 0.70-1.20 [facility] Comment on above: Performed By: #### L 506.1001, L500.4050, L501.9520, L501.9985, L506.0400, L501.10011, L500.4100, L502.0250 ####[facility] [address] [place], [address] GAP 11 Normal 5-[address] [facility] Comment on above: Performed By: #### L 506.1001, L500.4050, L501.9520, L501.9985, L506.0400, L501.38453, L500.4100, L502.0250 ####[facility] [address] [place], [address] GFR/1.73 sq M.predicted among non-blacks MDRD (S/P/Bld) [Vol rate/Area] 94 mL/min/{1.73_m2} Normal >60 [facility] Comment on above: Result Comment: mL/m in/1.73m2 CKD-EPI Creatinine Equation (2020) Performed By: #### L 506.1001, L500.4050, L501.9520, L501.9985, L506.0400, L501.19744, L500.4100, L502.0250 ####[facility] [address] [place], [address] Globulin (S) [Mass/Vol] 2.7 g/dL Normal 2.2-4.2 [facility] Comment on above: Performed By: #### L 506.1001, L500.4050, L501.9520, L501.9985, L506.0400, L501.48983, L500.4100, L502.0250 ####[facility] [address] [place], [address] Glucose [Mass/Vol] 112 mg/dL High 70-99 [facility] Comment on above: Performed By: #### L 506.1001, L500.4050, L501.9520, L501.9985, L506.0400, L501.18964, L500.4100, L502.0250 ####[facility] [address] [place], [address] Potassium [Moles/Vol] 3.6 mmol/L Normal 3.3-5.1 [facility] Comment on above: Performed By: #### L 506.1001, L500.4050, L501.9520, L501.9985, L506.0400, L501.95026, L500.4100, L502.0250 ####[facility] [address] [place], [address] Sodium [Moles/Vol] 139 mmol/L Normal 133-145 [facility] Comment on above: Performed By: #### L 506.1001, L500.4050, L501.9520, L501.9985, L506.0400, L501.48112, L500.4100, L502.0250 ####[facility] [address] [place], [address] T PROT 7.0 g/dL Normal 5.9-8.[address] [facility] Comment on above: Performed By: #### L 506.1001, L500.4050, L501.9520, L501.9985, L506.0400, L501.97769, L500.4100, L502.0250 ####[facility] [address] [place], [address] Urea nitrogen [Mass/Vol] 17 mg/dL Normal 4-[address] [facility] Comment on above: Performed By: #### L 506.1001, L500.4050, L501.9520, L501.9985, L506.0400, L501.68997, L500.4100, L502.0250 ####[facility] [address] [place], [address] Free T3on 06-13-2025 Free T3 [Mass/Vol] 2.7 pg/mL Normal 2.18-3.98 [facility] Comment on above: Performed By: #### L 506.1001, L500.4050, L501.9520, L501.9985, L506.0400, L501.31004, L500.4100, L502.0250 ####[facility] [address] [place], [place], [id number] Hemoglobin A1con 06-13-2025 HbA1c (Bld) [Mass fraction] 5.8 % High <=5.[address] [facility] Comment on above: Result Comment: Norm al < 5.7 % Prediabetic 5.7 - 6.4 % Diabetic >or= 6.5 % Please note range changes. Performed By: #### L 506.1001, L500.4050, L501.9520, L501.9985, L506.0400, L501.13690, L500.4100, L502.0250 ####[facility] [address] [place], [place], [id number] Lipid Profileon 06-13-2025 CHOL:HDL 1.[address] [facility] Comment on above: Performed By: #### L 506.1001, L500.4050, L501.9520, L501.9985, L506.0400, L501.08787, L500.4100, L502.0250 ####[facility] [address] [place], [place], [id number] Cholesterol [Mass/Vol] 161 mg/dL Normal <=200 [facility] Comment on above: Result Comment: Chol esterol level, Desirable <200 mg/dLBorderline high cholesterol 200-239 mg/dLHigh cholesterol >=240 mg/dLRecommendations of the NCEP Adult Treatment Panel for thefollowing risk-cutoff thresholds for the [place] [facility] pe[facility]. Performed By: #### L 506.1001, L500.4050, L501.9520, L501.9985, L506.0400, L501.78400, L500.4100, L502.0250 ####[facility] [address] [place], [place], [id number] Cholesterol in HDL [Mass/Vol] 81 mg/dL Normal [facility] Comment on above: Result Comment: Iliana onal Cholesterol Education Program (NCEP) guidelines:<40 mg/dL: Low HDL-cholesterol (major risk factor for CHD)>= 60 mg/dL: High HDL-cholesterol (negative risk factor forCHD)HDL-cholesterol is affected by a number of factors, e.g.smoking, exercise, hormones, sex and age. Performed By: #### L 506.1001, L500.4050, L501.9520, L501.9985, L506.0400, L501.11615, L500.4100, L502.0250 ####[facility] [address] [place], [address] Cholesterol in LDL [Mass/Vol] 64 mg/dL Normal [facility] Comment on above: Result Comment: Bord mcffjc=385-656 mg/dL Higher Vmvu=158 mg/dL or greaterSampson Equation 2020 for LDL-C Performed By: #### L 506.1001, L500.4050, L501.9520, L501.9985, L506.0400, L501.79477, L500.4100, L502.0250 ####[facility] [address] [place], [address] Cholesterol in VLDL [Mass/Vol] 18 mg/dL Normal 5-[address] [facility] Comment on above: Performed By: #### L 506.1001, L500.4050, L501.9520, L501.9985, L506.0400, L501.20988, L500.4100, L502.0250 ####[facility] [address] [place], [address] Triglyceride [Mass/Vol] 89 mg/dL Normal [facility] Comment on above: Result Comment: The drugs N-Acetylcysteine and Metamizole may falselydepress this assay.Normal range: <150 mg/dLBorderline High: 150-199 mg/dLHigh: 200-499 mg/dLVery High: >500 mg/dL Performed By: #### L 506.1001, L500.4050, L501.9520, L501.9985, L506.0400, L501.36098, L500.4100, L502.0250 ####[facility] [address] [place], [address] Microalb:Creat Ratio,Random URon 06-13-2025 Creatinine [Mass/Vol] 52.70 mg/dL Normal 28.00- 217.[address] [facility] Comment on above: Performed By: #### L 506.1001, L500.4050, L501.9520, L501.9985, L506.0400, L501.83455, L500.4100, L502.0250 ####[facility] [address] [place], [address] MALB:CREAT 30.2 mg/g CRE High <30 mg/g CRE [facility] Comment on above: Performed By: #### L 506.1001, L500.4050, L501.9520, L501.9985, L506.0400, L501.25911, L500.4100, L502.0250 ####[facility] [address] [place], [address] MICROALBUMIN,UR 15.9 mg/L Normal <20 mg/L [facility] Comment on above: Performed By: #### L 506.1001, L500.4050, L501.9520, L501.9985, L506.0400, L501.16761, L500.4100, L502.0250 ####[facility] [address], [address] T4 Free Directon 06-13-2025 T4 FREE DIRECT 1.40 ng/dL Normal 0.76-1.[address] [facility] Comment on above: Performed By: #### L 506.1001, L500.4050, L501.9520, L501.9985, L506.0400, L501.87968, L500.4100, L502.0250 ####[facility] [address] [facility] [place], [address] Thyroid Stim Hormone (TSH)on 06-13-2025 TSH 2.120 uIU/mL Normal 0.300-4.[address] [facility] Comment on above: Performed By: #### L 506.1001, L500.4050, L501.9520, L501.9985, L506.0400, L501.47343, L500.4100, L502.0250 ####[facility] [address] [facility] [place], [address] Vitamin D,25 Hydroxyon 06-13 Vitamin D 25-OH 53.4 ng/mL Normal 30-[address] [facility] Comment on above: Result Comment: Ai min D StatusDeficiency: <20 ng/mL (50nmol/L)Insufficiency: 20-30 ng/mL (50-75 nmol/L)Sufficiency: 30-100 ng/mL (75-250 nmol/L)Toxicity: >100 ng/mL (>250 nmol/L) Performed By: #### L 506.1001, L500.4050, L501.9520, L501.9985, L506.0400, L501.60605, L500.4100, L502.0250 ####[facility] [address] [place], [address] Pulmonary Visit Reporton Pulmonary Visit Report Normal [facility] Inital Evaluation (1) - PTon 05-19-2025 Inital Evaluation (1) - PT Normal [facility] CBC W/Diff, Automatedon 04-11 Absolute Lymph 2.96 X10 3/uL Normal 0.83-4.[address] [facility] Comment on above: Performed By: #### L 500.4050, L100.0100 ####[facility] [address] [place], [address] Absolute Neut 6.1 X10 3/uL Normal 2.0-7.[address] [facility] Comment on above: Performed By: #### L 500.4050, L100.0100 ####[facility] [address] [place], [address] Basophils/100 WBC (Bld) 0.5 % Normal 0-1 [facility] Comment on above: Performed By: #### L 500.4050, L100.0100 ####[facility] [address] [place], [address] Eosinophils/100 WBC (Bld) 1.7 % Normal 0-[address] [facility] Comment on above: Performed By: #### L 500.4050, L100.0100 ####[facility] [address] [place], [address] Erythrocyte distribution width (RBC) [Ratio] 13.3 % Normal 11.6-14.[address] [facility] Comment on above: Performed By: #### L 500.4050, L100.0100 ####[facility] [address] [place], [address] Hematocrit (Bld) [Volume fraction] 37.2 % Normal 37-[address] [facility] Comment on above: Performed By: #### L 500.4050, L100.0100 ####[facility] [address] [place], [address] Hemoglobin (Bld) [Mass/Vol] 12.0 g/dL Normal 12.0-15.[address] [facility] Comment on above: Performed By: #### L 500.4050, L100.0100 ####[facility] [address] [place], [address] IG% 0.300 Normal 0.0-0.[address] [facility] Comment on above: Result Comment: IG% - Immature Granulocytes (promyelocytes, myelocytes andmetamyelocytes) > 1% indicates that a LEFT SHIFT is Present. Performed By: #### L 500.4050, L100.0100 ####[facility] [address] [place], [address] Lymphocytes/100 WBC (Bld) 29.9 % Normal 19-[address] [facility] Comment on above: Performed By: #### L 500.4050, L100.0100 ####[facility] [address] [place], [address] MCH (RBC) [Entitic mass] 31.1 pg Normal 27.0-32.[address] [facility] Comment on above: Performed By: #### L 500.4050, L100.0100 ####[facility] [address] [place], [address] MCHC (RBC) [Mass/Vol] 32.3 g/dL Normal 32-36 [facility] Comment on above: Performed By: #### L 500.4050, L100.0100 ####[facility] [address] [place], [address] MCV (RBC) [Entitic vol] 96.4 fL Normal 81-99 [facility] Comment on above: Performed By: #### L 500.4050, L100.0100 ####[facility] [address] [place], [address] Monocytes/100 WBC (Bld) 6.0 % Normal 0-10 [facility] Comment on above: Performed By: #### L 500.4050, L100.0100 ####[facility] [address] [place], [address] Neutrophils/100 WBC (Bld) 61.6 % Normal 47-[address] [facility] Comment on above: Performed By: #### L 500.4050, L100.0100 ####[facility] [address] [place], [address] Nucleated RBC (Bld) [#/Vol] 0 10*3/uL Normal 0-[address] [facility] Comment on above: Performed By: #### L 500.4050, L100.0100 ####[facility] [address] [place], [address] Platelet mean volume (Bld) [Entitic vol] 9.5 fL Normal 6.2-12.[address] [facility] Comment on above: Performed By: #### L 500.4050, L100.0100 ####[facility] [address] [place], [address] Platelets (Bld) [#/Vol] 364 10*3/uL Normal 150-[address] [facility] Comment on above: Performed By: #### L 500.4050, L100.0100 ####[facility] [address] [place], [address] RBC (Bld) [#/Vol] 3.86 10*6/uL Low 4.2-5.4 [facility] Comment on above: Performed By: #### L 500.4050, L100.0100 ####[facility] [address] [place], [address] RDW SD 47.8 fl High 35.1-43.[address] [facility] Comment on above: Performed By: #### L 500.4050, L100.0100 ####[facility] [address] [place], [address] WBC (Bld) [#/Vol] 9.9 10*3/uL Normal 4.4-11.0 [facility] Comment on above: Performed By: #### L 500.4050, L100.0100 ####[facility] [address] [place], [address] Comprehensive Metabolic Prof ilon 04-25-2025 Albumin [Mass/Vol] 4.3 g/dL Normal 3.4-4.8 [facility] Comment on above: Performed By: #### L 500.4050, L100.0100 ####[facility] [address] [place], [address] Albumin/Globulin [Mass ratio] 1.6 {ratio} Normal 0.9-2.[address] [facility] Comment on above: Performed By: #### L 500.4050, L100.0100 ####[facility] [address] [place], [address] ALK PHOS 100 U/L Normal 35-[address] [facility] Comment on above: Performed By: #### L 500.4050, L100.0100 ####[facility] [address] [place], [address] ALT [Catalytic activity/Vol] 13 U/L Normal <=[address] [facility] Comment on above: Performed By: #### L 500.4050, L100.0100 ####[facility] [address] [place], [address] AST [Catalytic activity/Vol] 21 U/L Normal <=[address] [facility] Comment on above: Performed By: #### L 500.4050, L100.0100 ####[facility] [address] [place], [address] Bilirubin [Mass/Vol] 0.40 mg/dL Normal 0.00-1.30 [facility] Comment on above: Performed By: #### L 500.4050, L100.0100 ####[facility] [address] [place], [address] BUN/CRE 22.2 RATIO High 10-[address] [facility] Comment on above: Performed By: #### L 500.4050, L100.0100 ####[facility] [address] [place], [address] Calcium [Mass/Vol] 9.3 mg/dL Normal 7.6-11.0 [facility] Comment on above: Performed By: #### L 500.4050, L100.0100 ####[facility] [address] [place], [address] Chloride [Moles/Vol] 105 mmol/L Normal 98-108 [facility] Comment on above: Performed By: #### L 500.4050, L100.0100 ####[facility] [address] [place], [address] CO2 [Moles/Vol] 25.1 mmol/L Normal 21.0-32.[address] [facility] Comment on above: Performed By: #### L 500.4050, L100.0100 ####[facility] [address] [place], [address] Creatinine [Mass/Vol] 0.74 mg/dL Normal 0.70-1.20 [facility] Comment on above: Performed By: #### L 500.4050, L100.0100 ####[facility] [address] [place], [address] GAP 11 Normal 5-[address] [facility] Comment on above: Performed By: #### L 500.4050, L100.0100 ####[facility] [address] [place], [address] GFR/1.73 sq M.predicted among non-blacks MDRD (S/P/Bld) [Vol rate/Area] 87 mL/min/{1.73_m2} Normal >60 [facility] Comment on above: Result Comment: mL/m in/1.73m2 CKD-EPI Creatinine Equation (2020) Performed By: #### L 500.4050, L100.0100 ####[facility] [address] [place], [address] Globulin (S) [Mass/Vol] 2.7 g/dL Normal 2.2-4.2 [facility] Comment on above: Performed By: #### L 500.4050, L100.0100 ####[facility] [address] [place], [address] Glucose [Mass/Vol] 89 mg/dL Normal 70-99 [facility] Comment on above: Performed By: #### L 500.4050, L100.0100 ####[facility] [address] [place], [address] Potassium [Moles/Vol] 3.6 mmol/L Normal 3.3-5.1 [facility] Comment on above: Performed By: #### L 500.4050, L100.0100 ####[facility] [address] [place], [address] Sodium [Moles/Vol] 141 mmol/L Normal 133-145 [facility] Comment on above: Performed By: #### L 500.4050, L100.0100 ####[facility] [address] [place], [address] T PROT 7.0 g/dL Normal 5.9-8.[address] [facility] Comment on above: Performed By: #### L 500.4050, L100.0100 ####[facility] [address] [place], [address] Urea nitrogen [Mass/Vol] 16 mg/dL Normal 4-[address] [facility] Comment on above: Performed By: #### L 500.4050, L100.0100 ####[facility] [address] [place], [address] Gastroenterology Visit Repor ton 04-25-2025 Gastroenterology Visit Report Normal [facility] Anion gap in Serum or Plasma Ordered By: Gamaliel Whitehead on 03-10-2025 Anion gap [Moles/Vol] 13 mmol/L 5-15 [facility] BUN/creatinine ratioOrdered By: Gamaliel Whitehead on 03-10-2025 Urea nitrogen/Creatinine [Mass ratio] 25.3 mg/mg High 10-[address] [facility] Bilirubin, totalOrdered By: Gamaliel Whitehead on 03-10-2025 Bilirubin [Mass/Vol] 0.42 mg/dL 0.00-1.30 [facility] Calculated very low density lipoprotein (VLDL) cholesterol measurementOrdered By: Gamaliel Whitehead on 03-10-2025 Calculated very low density lipoprotein (VLDL) cholesterol measurement 22 mg/dL 5-[address] [facility] Carbon dioxide, total [Moles /volume] in Central venous bloodOrdered By: Gamaliel Whitehead on 03-10-2025 CO2 [Moles/Vol] 23.6 mmol/L 21.0-32.[address] [facility] Chloride assayOrdered By: Suha Whitehead on 03-10-2025 Chloride [Moles/Vol] 103 mmol/L 98-108 [facility] Comprehensive Metabolic Prof ilon 03-10-2025 Albumin [Mass/Vol] 4.4 g/dL Normal 3.4-4.8 [facility] Comment on above: Order Comment: SEND RESULTS OF TSH,BMP,T3,T4 TO DR GAMALIEL LEAVITT. Performed By: #### L 501.9520, L506.0400, L500.4050, L501.30629, L500.4100 ####[facility] [address] [place], [address] Albumin/Globulin [Mass ratio] 1.7 {ratio} Normal 0.9-2.[address] [facility] Comment on above: Order Comment: SEND RESULTS OF TSH,BMP,T3,T4 TO DR GAMALIEL LEAVITT. Performed By: #### L 501.9520, L506.0400, L500.4050, L501.96342, L500.4100 ####[facility] [address] [place], [place], [address] ALK PHOS 124 U/L High 35-[address] [facility] Comment on above: Order Comment: SEND RESULTS OF TSH,BMP,T3,T4 TO DR GAMALIEL LEAVITT. Performed By: #### L 501.9520, L506.0400, L500.4050, L501.96446, L500.4100 ####[facility] [address] [place], [address] ALT [Catalytic activity/Vol] 17 U/L Normal <=[address] [facility] Comment on above: Order Comment: SEND RESULTS OF TSH,BMP,T3,T4 TO DR GAMALIEL LEAVITT. Performed By: #### L 501.9520, L506.0400, L500.4050, L501.19001, L500.4100 ####[facility] [address] [place], [place], [id number] AST [Catalytic activity/Vol] 19 U/L Normal <=[address] [facility] Comment on above: Order Comment: SEND RESULTS OF TSH,BMP,T3,T4 TO DR GAMALIEL LEAVITT. Performed By: #### L 501.9520, L506.0400, L500.4050, L501.48264, L500.4100 ####[facility] [address] [place], [place], [address] Bilirubin [Mass/Vol] 0.42 mg/dL Normal 0.00-1.30 [facility] Comment on above: Order Comment: SEND RESULTS OF TSH,BMP,T3,T4 TO DR GAMALIEL LEAVITT. Performed By: #### L 501.9520, L506.0400, L500.4050, L501.48022, L500.4100 ####[facility] [address] [place], [address] BUN/CRE 25.3 RATIO High 10-[address] [facility] Comment on above: Order Comment: SEND RESULTS OF TSH,BMP,T3,T4 TO DR GAMALIEL LEAVITT. Performed By: #### L 501.9520, L506.0400, L500.4050, L501.84852, L500.4100 ####[facility] [address] [place], [address] Calcium [Mass/Vol] 9.6 mg/dL Normal 7.6-11.0 [facility] Comment on above: Order Comment: SEND RESULTS OF TSH,BMP,T3,T4 TO DR GAMALIEL LEAVITT. Performed By: #### L 501.9520, L506.0400, L500.4050, L501.27438, L500.4100 ####[facility] [address] [place], [address] Chloride [Moles/Vol] 103 mmol/L Normal 98-108 [facility] Comment on above: Order Comment: SEND RESULTS OF TSH,BMP,T3,T4 TO DR GAMALIEL LEAVITT. Performed By: #### L 501.9520, L506.0400, L500.4050, L501.08526, L500.4100 ####[facility] [address] [place], [address] CO2 [Moles/Vol] 23.6 mmol/L Normal 21.0-32.[address] [facility] Comment on above: Order Comment: SEND RESULTS OF TSH,BMP,T3,T4 TO DR GAMALIEL LEAVITT. Performed By: #### L 501.9520, L506.0400, L500.4050, L501.95678, L500.4100 ####[facility] [address] [place], [address] Creatinine [Mass/Vol] 0.64 mg/dL Low 0.70-1.20 [facility] Comment on above: Order Comment: SEND RESULTS OF TSH,BMP,T3,T4 TO DR GAMALIEL LEAVITT. Performed By: #### L 501.9520, L506.0400, L500.4050, L501.53134, L500.4100 ####[facility] [address] [place], [address] GAP 13 Normal 5-[address] [facility] Comment on above: Order Comment: SEND RESULTS OF TSH,BMP,T3,T4 TO DR GAMALIEL LEAVITT. Performed By: #### L 501.9520, L506.0400, L500.4050, L501.86653, L500.4100 ####[facility] [address] [place], [address] GFR/1.73 sq M.predicted among non-blacks MDRD (S/P/Bld) [Vol rate/Area] 94 mL/min/{1.73_m2} Normal >60 [facility] Comment on above: Order Comment: SEND RESULTS OF TSH,BMP,T3,T4 TO DR GAMALIEL LEAVITT. Result Comment: mL/m in/1.73m2 CKD-EPI Creatinine Equation (2020) Performed By: #### L 501.9520, L506.0400, L500.4050, L501.58610, L500.4100 ####[facility] [address] [place], [address] Globulin (S) [Mass/Vol] 2.6 g/dL Normal 2.2-4.2 [facility] Comment on above: Order Comment: SEND RESULTS OF TSH,BMP,T3,T4 TO DR GAMALIEL LEAVITT. Performed By: #### L 501.9520, L506.0400, L500.4050, L501.60458, L500.4100 ####[facility] [address] [place], [address] Glucose [Mass/Vol] 98 mg/dL Normal 70-99 [facility] Comment on above: Order Comment: SEND RESULTS OF TSH,BMP,T3,T4 TO DR GAMALIEL LEAVITT. Performed By: #### L 501.9520, L506.0400, L500.4050, L501.56443, L500.4100 ####[facility] [address] [place], [address] Potassium [Moles/Vol] 3.8 mmol/L Normal 3.3-5.1 [facility] Comment on above: Order Comment: SEND RESULTS OF TSH,BMP,T3,T4 TO DR GAMALIEL LEAVITT. Performed By: #### L 501.9520, L506.0400, L500.4050, L501.11793, L500.4100 ####[facility] [address] [place], [address] Sodium [Moles/Vol] 140 mmol/L Normal 133-145 [facility] Comment on above: Order Comment: SEND RESULTS OF TSH,BMP,T3,T4 TO DR GAMALIEL LEAVITT. Performed By: #### L 501.9520, L506.0400, L500.4050, L501.60310, L500.4100 ####[facility] [address] [place], [address] T PROT 7.0 g/dL Normal 5.9-8.[address] [facility] Comment on above: Order Comment: SEND RESULTS OF TSH,BMP,T3,T4 TO DR GAMALIEL LEAVITT. Performed By: #### L 501.9520, L506.0400, L500.4050, L501.32400, L500.4100 ####[facility] [address] [place], [address] Urea nitrogen [Mass/Vol] 16 mg/dL Normal 4-[address] [facility] Comment on above: Order Comment: SEND RESULTS OF TSH,BMP,T3,T4 TO DR GAMALIEL LEAVITT. Performed By: #### L 501.9520, L506.0400, L500.4050, L501.55377, L500.4100 ####[facility] [address] [place], [address] Free T3on 03-10-2025 Free T3 [Mass/Vol] 3.0 pg/mL Normal 2.18-3.98 [facility] Comment on above: Order Comment: SEND RESULTS OF TSH,BMP,T3,T4 TO DR GAMALIEL LEAVITT. Performed By: #### L 501.9520, L506.0400, L500.4050, L501.34489, L500.4100 ####[facility] [address] [place], [address] Free X0Warqokj By: Gamaliel romano on 03-10-2025 Free T3 [Mass/Vol] 3.0 pg/mL 2.18-3.98 [facility] Glomerular filtration rate ( GFR) estimation/1.73 sq m using serum, plasma, or whole bOrdered By: Gamaliel Whitehead on 03-10-2025 GFR/1.73 sq M.predicted among non-blacks MDRD (S/P/Bld) [Vol rate/Area] 94 mL/min/{1.73_m2} >60 [facility] LDL calc ser/plasOrdered By: Gamaliel Whitehead on 03-10-2025 Cholesterol in LDL [Mass/Vol] 74 mg/dL [facility] Lipid Profileon 03-10-2025 CHOL:HDL 2.[address] [facility] Comment on above: Order Comment: SEND RESULTS OF TSH,BMP,T3,T4 TO DR GAMALIEL LEAVITT. Performed By: #### L 501.9520, L506.0400, L500.4050, L501.51934, L500.4100 ####[facility] [address] [place], [address] Cholesterol [Mass/Vol] 168 mg/dL Normal <=200 [facility] Comment on above: Order Comment: SEND RESULTS OF TSH,BMP,T3,T4 TO DR GAMALIEL LEAVITT. Result Comment: Chol esterol level, Desirable <200 mg/dLBorderline high cholesterol 200-239 mg/dLHigh cholesterol >=240 mg/dLRecommendations of the NCEP Adult Treatment Panel for thefollowing risk-cutoff thresholds for the [place] Americanpulation. Performed By: #### L 501.9520, L506.0400, L500.4050, L501.07787, L500.4100 ####[facility] [address] [place], [address] Cholesterol in HDL [Mass/Vol] 72 mg/dL Normal [facility] Comment on above: Order Comment: SEND RESULTS OF TSH,BMP,T3,T4 TO DR GAMALIEL LEAVITT. Result Comment: Iliana onal Cholesterol Education Program (NCEP) guidelines:<40 mg/dL: Low HDL-cholesterol (major risk factor for CHD)>= 60 mg/dL: High HDL-cholesterol (negative risk factor forCHD)HDL-cholesterol is affected by a number of factors, e.g.smoking, exercise, hormones, sex and age. Performed By: #### L 501.9520, L506.0400, L500.4050, L501.18076, L500.4100 ####[facility] [address] [place], [address] Cholesterol in LDL [Mass/Vol] 74 mg/dL Normal [facility] Comment on above: Order Comment: SEND RESULTS OF TSH,BMP,T3,T4 TO DR GAMALIEL LEAVITT. Result Comment: Bord qqxsaj=744-453 mg/dL Higher Cumh=238 mg/dL or greaterFriedwald Equation for LDL-C Performed By: #### L 501.9520, L506.0400, L500.4050, L501.48185, L500.4100 ####[facility] [address] [place], [address] Cholesterol in VLDL [Mass/Vol] 22 mg/dL Normal 5-[address] [facility] Comment on above: Order Comment: SEND RESULTS OF TSH,BMP,T3,T4 TO DR GAMALIEL LEAVITT. Performed By: #### L 501.9520, L506.0400, L500.4050, L501.77536, L500.4100 ####[facility] [address] [place], [place], [address] Triglyceride [Mass/Vol] 111 mg/dL Normal [facility] Comment on above: Order Comment: SEND RESULTS OF TSH,BMP,T3,T4 TO DR GAMALEIL LEAVITT. Result Comment: The drugs N-Acetylcysteine and Metamizole may falselydepress this assay.Normal range: <150 mg/dLBorderline High: 150-199 mg/dLHigh: 200-499 mg/dLVery High: >500 mg/dL Performed By: #### L 501.9520, L506.0400, L500.4050, L501.33106, L500.4100 ####[facility] [address] [place], [place], [address] No Panel InformationOrdered By: Gamaliel Whitehead on 03-10-2025 19 U/L <[address] [facility] Potassium measurement (mass/ volume)Ordered By: Gamaliel Whitehead on 03-10-2025 Potassium (Unsp spec) [Mass/Vol] 3.8 mmol/L 3.3-5.[address] [facility] Serum creatinine measurement (mass/volume)Ordered By: Gamaliel Whitehead on 03-10-2025 Creatinine [Mass/Vol] 0.64 mg/dL Low 0.70-1.20 [facility] Serum globulin measurementOr dered By: Gamaliel Whitehead on 03-10-2025 Globulin (S) [Mass/Vol] 2.6 g/dL 2.2-4.2 [facility] Serum glucose measurement (m ass/volume)Ordered By: Gamaliel Whitehead on 03-10-2025 Glucose [Mass/Vol] 98 mg/dL 70-99 [facility] Serum or plasma alanine gatica otransferase (ALT) measurementOrdered By: Gamaliel Whitehead on 03-10-2025 ALT [Catalytic activity/Vol] 17 U/L <[address] [facility] Serum or plasma albumin sonali urement (mass/volume)Ordered By: Gamaliel Whitehead on 03-10-2025 Albumin [Mass/Vol] 4.4 g/dL 3.4-4.8 [facility] Serum or plasma albumin/glob ulin mass ratioOrdered By: Gamaliel Whitehead on 03-10-2025 Albumin/Globulin [Mass ratio] 1.7 {ratio} 0.9-2.[address] [facility] Serum or plasma alkaline ike sphatase measurementOrdered By: Gamaliel Whitehead on 03-10-2025 ALP [Catalytic activity/Vol] 124 U/L High 35-[address] [facility] Serum or plasma calcium sonali urement (mass/volume)Ordered By: Gamaliel Whitehead on 03-10-2025 Calcium [Mass/Vol] 9.6 mg/dL 7.6-11.0 [facility] Serum or plasma cholesterol in HDL measurement (mass/volume)Ordered By: Gamaliel Whitehead on 03-10-2025 Cholesterol in HDL [Mass/Vol] 72 mg/dL >[address] [facility] Serum or plasma cholesterol measurement (mass/volume)Ordered By: Gamaliel Whitehead on 03-10-2025 Cholesterol [Mass/Vol] 168 mg/dL <201 [facility] Serum or plasma urea nitroge n measurement (mass/volume)Ordered By: Gamaliel Whitheead on 03-10-2025 Urea nitrogen [Mass/Vol] 16 mg/dL 4-[address] [facility] Sodium levelOrdered By: Gamaliel Whitehead on 03-10-2025 Sodium [Moles/Vol] 140 mmol/L 133-145 [facility] T4 Free Directon 03-10-2025 T4 FREE DIRECT 1.20 ng/dL Normal 0.76-1.[address] [facility] Comment on above: Order Comment: SEND RESULTS OF TSH,BMP,T3,T4 TO DR GAMALIEL LEAVITT. Performed By: #### L 501.9520, L506.0400, L500.4050, L501.39854, L500.4109 ####[facility] [address] [place], [place], [address] T4 freeOrdered By: Gamaliel romano on 03-10-2025 Free T4 [Mass/Vol] 1.20 ng/dL 0.76-1.46 [facility] TSH DL <= 0.005 mIU/L QnOrde red By: Gamaliel Whitehead on 03-10-2025 TSH Qn 3.840 uIU/mL 0.300-4.[address] [facility] Thyroid Stim Hormone (TSH)on 03-10-2025 TSH 3.840 uIU/mL Normal 0.300-4.[address] [facility] Comment on above: Order Comment: SEND RESULTS OF TSH,BMP,T3,T4 TO DR GAMALIEL LEAVITT. Performed By: #### L 501.9520, L506.0400, L500.4050, L501.60045, L500.4100 ####[facility] [address] [place], [address] Total proteinOrdered By: Lizbeth Whitehead on 03-10-2025 Protein [Mass/Vol] 7.0 g/dL 5.9-8.4 [facility] 12 Lead EKGon 02-10-2025 12 Lead EKG Normal [facility] Absolute lymphocyte countOrd ered By: Torres Koroma on 02-10-2025 Lymphocytes Auto (Unsp spec) [#/Vol] 4.64 10*3/uL High 0.83-4.[address] [facility] Alcohol, Blood (Medical)-Ser umon 02-10-2025 SERUM ETOH < 10.1 Normal <=10.[address] [facility] Comment on above: Result Comment: This test is for medical purposes only. The legaldefinition of intoxication varies according to local law. Performed By: #### L 505.5000, L100.0100, L501.9100, L500.4050 ####[facility] [address] [place], [address] Amphetamine detection with 1 000 ng/mL as cutoffOrdered By: Torres Koroma on 02-10-2025 Amphetamines Screen method >1000 ng/mL Ql (U) Negative < 200 ng/mL [facility] Anion gap in Serum or Plasma Ordered By: Torres Koroma on 07-03-2025 Anion gap [Moles/Vol] 13 mmol/L 5-15 [facility] Automated lymphocyte count a s percentage of total leukocytesOrdered By: Torres Koroma on 02-10-2025 Lymphocytes/100 WBC Auto (Unsp spec) 49.6 % High 19-[address] [facility] BUN/creatinine ratioOrdered By: Torres Koroma on 02-10-2025 Urea nitrogen/Creatinine [Mass ratio] 23.9 mg/mg High 10-[address] [facility] Basophil percentageOrdered B y: Torres Koroma on 02-10-2025 Basophils/100 WBC (Bld) 0.5 % 0-1 [facility] Bilirubin, totalOrdered By: Torres Koroma on 02-10-2025 Bilirubin [Mass/Vol] 0.48 mg/dL 0.00-1.30 [facility] CBC W/Diff, Automatedon Absolute Lymph 4.64 X10 3/uL High 0.83-4.[address] [facility] Comment on above: Performed By: #### L 505.5000, L100.0100, L501.9100, L500.4050 ####[facility] [address] [place], [address] Absolute Neut 3.8 X10 3/uL Normal 2.0-7.[address] [facility] Comment on above: Performed By: #### L 505.5000, L100.0100, L501.9100, L500.4050 ####[facility] [address] [place], [address] Basophils/100 WBC (Bld) 0.5 % Normal 0-1 [facility] Comment on above: Performed By: #### L 505.5000, L100.0100, L501.9100, L500.4050 ####[facility] [address] [place], [address] Eosinophils/100 WBC (Bld) 2.1 % Normal 0-[address] [facility] Comment on above: Performed By: #### L 505.5000, L100.0100, L501.9100, L500.4050 ####[facility] [address] [place], [address] Erythrocyte distribution width (RBC) [Ratio] 12.9 % Normal 11.6-14.[address] [facility] Comment on above: Performed By: #### L 505.5000, L100.0100, L501.9100, L500.4050 ####[facility] [address] [place], [address] Hematocrit (Bld) [Volume fraction] 37.7 % Normal 37-[address] [facility] Comment on above: Performed By: #### L 505.5000, L100.0100, L501.9100, L500.4050 ####[facility] [address] [place], [address] Hemoglobin (Bld) [Mass/Vol] 12.7 g/dL Normal 12.0-15.[address] [facility] Comment on above: Performed By: #### L 505.5000, L100.0100, L501.9100, L500.4050 ####[facility] [address] [place], [address] IG% 0.200 Normal 0.0-0.[address] [facility] Comment on above: Result Comment: IG% - Immature Granulocytes (promyelocytes, myelocytes andmetamyelocytes) > 1% indicates that a LEFT SHIFT is Present. Performed By: #### L 505.5000, L100.0100, L501.9100, L500.4050 ####[facility] [address] [place], [address] Lymphocytes/100 WBC (Bld) 49.6 % High 19-[address] [facility] Comment on above: Performed By: #### L 505.5000, L100.0100, L501.9100, L500.4050 ####[facility] [address] [place], [address] MCH (RBC) [Entitic mass] 32.2 pg High 27.0-32.[address] [facility] Comment on above: Performed By: #### L 505.5000, L100.0100, L501.9100, L500.4050 ####[facility] [address] [place], [address] MCHC (RBC) [Mass/Vol] 33.7 g/dL Normal 32-36 [facility] Comment on above: Performed By: #### L 505.5000, L100.0100, L501.9100, L500.4050 ####[facility] [address] [place], [address] MCV (RBC) [Entitic vol] 95.4 fL Normal 81-99 [facility] Comment on above: Performed By: #### L 505.5000, L100.0100, L501.9100, L500.4050 ####[facility] [address] [place], [address] Monocytes/100 WBC (Bld) 6.5 % Normal 0-10 [facility] Comment on above: Performed By: #### L 505.5000, L100.0100, L501.9100, L500.4050 ####[facility] [address] [place], [address] Neutrophils/100 WBC (Bld) 41.1 % Low 47-[address] [facility] Comment on above: Performed By: #### L 505.5000, L100.0100, L501.9100, L500.4050 ####[facility] [address] [place], [address] Nucleated RBC (Bld) [#/Vol] 0 10*3/uL Normal 0-[address] [facility] Comment on above: Performed By: #### L 505.5000, L100.0100, L501.9100, L500.4050 ####[facility] [address] [place], [address] Platelet mean volume (Bld) [Entitic vol] 9.2 fL Normal 6.2-12.[address] [facility] Comment on above: Performed By: #### L 505.5000, L100.0100, L501.9100, L500.4050 ####[facility] [address] [place], [address] Platelets (Bld) [#/Vol] 329 10*3/uL Normal 150-[address] [facility] Comment on above: Performed By: #### L 505.5000, L100.0100, L501.9100, L500.4050 ####[facility] [address] [place], [address] RBC (Bld) [#/Vol] 3.95 10*6/uL Low 4.2-5.4 [facility] Comment on above: Performed By: #### L 505.5000, L100.0100, L501.9100, L500.4050 ####[facility] [address] [place], [address] RDW SD 45.2 fl High 35.1-43.[address] [facility] Comment on above: Performed By: #### L 505.5000, L100.0100, L501.9100, L500.4050 ####[facility] [address] [place], [address] WBC (Bld) [#/Vol] 9.4 10*3/uL Normal 4.4-11.0 [facility] Comment on above: Performed By: #### L 505.5000, L100.0100, L501.9100, L500.4050 ####[facility] [address] [place], [address] Carbon dioxide, total [Moles /volume] in Central venous bloodOrdered By: Torres Koroma on 02-10-2025 CO2 [Moles/Vol] 20.6 mmol/L Low 21.0-32.[address] [facility] Chloride assayOrdered By: Hossein Koroma on 02-10-2025 Chloride [Moles/Vol] 107 mmol/L 98-108 [facility] Comprehensive Metabolic Prof ilon 02-10-2025 Albumin [Mass/Vol] 4.4 g/dL Normal 3.4-4.8 [facility] Comment on above: Performed By: #### L 505.5000, L100.0100, L501.9100, L500.4050 ####[facility] [address] [place], [address] Albumin/Globulin [Mass ratio] 1.7 {ratio} Normal 0.9-2.[address] [facility] Comment on above: Performed By: #### L 505.5000, L100.0100, L501.9100, L500.4050 ####[facility] [address] [place], [address] ALK PHOS 109 U/L High 35-[address] [facility] Comment on above: Performed By: #### L 505.5000, L100.0100, L501.9100, L500.4050 ####[facility] [address] [place], [address] ALT [Catalytic activity/Vol] 17 U/L Normal <=[address] [facility] Comment on above: Performed By: #### L 505.5000, L100.0100, L501.9100, L500.4050 ####[facility] [address] [place], [address] AST [Catalytic activity/Vol] 26 U/L Normal <=[address] [facility] Comment on above: Performed By: #### L 505.5000, L100.0100, L501.9100, L500.4050 ####[facility] [address] [place], [address] Bilirubin [Mass/Vol] 0.48 mg/dL Normal 0.00-1.30 [facility] Comment on above: Performed By: #### L 505.5000, L100.0100, L501.9100, L500.4050 ####[facility] [address] [place], [address] BUN/CRE 23.9 RATIO High 10-[address] [facility] Comment on above: Performed By: #### L 505.5000, L100.0100, L501.9100, L500.4050 ####[facility] [address] [place], [address] Calcium [Mass/Vol] 9.6 mg/dL Normal 7.6-11.0 [facility] Comment on above: Performed By: #### L 505.5000, L100.0100, L501.9100, L500.4050 ####[facility] [address] [place], [address] Chloride [Moles/Vol] 107 mmol/L Normal 98-108 [facility] Comment on above: Performed By: #### L 505.5000, L100.0100, L501.9100, L500.4050 ####[facility] [address] [place], [address] CO2 [Moles/Vol] 20.6 mmol/L Low 21.0-32.[address] [facility] Comment on above: Performed By: #### L 505.5000, L100.0100, L501.9100, L500.4050 ####[facility] [address] [place], [address] Creatinine [Mass/Vol] 0.70 mg/dL Normal 0.70-1.20 [facility] Comment on above: Performed By: #### L 505.5000, L100.0100, L501.9100, L500.4050 ####[facility] [address] [place], [address] GAP 13 Normal 5-[address] [facility] Comment on above: Performed By: #### L 505.5000, L100.0100, L501.9100, L500.4050 ####[facility] [address] [place], [address] GFR/1.73 sq M.predicted among non-blacks MDRD (S/P/Bld) [Vol rate/Area] 91 mL/min/{1.73_m2} Normal >60 [facility] Comment on above: Result Comment: mL/m in/1.73m2 CKD-EPI Creatinine Equation (2020) Performed By: #### L 505.5000, L100.0100, L501.9100, L500.4050 ####[facility] [address] [place], [address] Globulin (S) [Mass/Vol] 2.6 g/dL Normal 2.2-4.2 [facility] Comment on above: Performed By: #### L 505.5000, L100.0100, L501.9100, L500.4050 ####[facility] [address] [place], [address] Glucose [Mass/Vol] 107 mg/dL High 70-99 [facility] Comment on above: Performed By: #### L 505.5000, L100.0100, L501.9100, L500.4050 ####[facility] [address] [place], [address] Potassium [Moles/Vol] 3.3 mmol/L Normal 3.3-5.1 [facility] Comment on above: Performed By: #### L 505.5000, L100.0100, L501.9100, L500.4050 ####[facility] [address] [place], [address] Sodium [Moles/Vol] 140 mmol/L Normal 133-145 [facility] Comment on above: Performed By: #### L 505.5000, L100.0100, L501.9100, L500.4050 ####[facility] [address] [place], [address] T PROT 7.0 g/dL Normal 5.9-8.[address] [facility] Comment on above: Performed By: #### L 505.5000, L100.0100, L501.9100, L500.4050 ####[facility] [address] [place], [address] Urea nitrogen [Mass/Vol] 17 mg/dL Normal 4-[address] [facility] Comment on above: Performed By: #### L 505.5000, L100.0100, L501.9100, L500.4050 ####[facility] [address] [place], [place], [address] Emergency Department Summary on 02-10-2025 Emergency Department Summary Normal [facility] Eosinophil percentageOrdered By: Torres Koroma on 02-10-2025 Eosinophils/100 WBC (Bld) 2.1 % 0-[address] [facility] Erythrocyte distribution wid th ratioOrdered By: Torres Koroma on 02-10-2025 Erythrocyte distribution width (RBC) [Ratio] 12.9 % 11.6-14.[address] [facility] Erythrocyte distribution wid th standard deviationOrdered By: Torres Koroma on 02-10-2025 Erythrocyte distribution width (RBC) [Ratio] 45.2 fl High 35.1-43.[address] [facility] Glomerular filtration rate ( GFR) estimation/1.73 sq m using serum, plasma, or whole bOrdered By: Torres Koroma on 02-10-2025 GFR/1.73 sq M.predicted among non-blacks MDRD (S/P/Bld) [Vol rate/Area] 91 mL/min/{1.73_m2} >60 [facility] Hematocrit Auto (Bld) [Volum e fraction]Ordered By: Torres Koroma on 02-10-2025 Hematocrit (Bld) [Volume fraction] 37.7 % 37-[address] [facility] Hemoglobin measurementOrdere d By: Torres Koroma on 02-10-2025 Hemoglobin (Bld) [Mass/Vol] 12.7 g/dL 12.0-15.[address] [facility] Immature granulocytes/100 WB C Auto (Bld)Ordered By: Torres Koroma on 02-10-2025 Immature granulocytes/100 WBC (Bld) 0.200 % 0.0-0.[address] [facility] MCV (mean corpuscular volume ) determinationOrdered By: Torres Koroma on 02-10-2025 MCV (RBC) [Entitic vol] 95.4 fL 81-99 [facility] Mean corpuscular hemoglobin (MCH) determinationOrdered By: Torres Kormoa on 02-10-2025 MCH (RBC) [Entitic mass] 32.2 pg High 27.0-32.[address] [facility] Monocyte percentageOrdered B y: Torres Koroma on 02-10-2025 Monocytes/100 WBC (Bld) 6.5 % 0-10 [facility] Neutrophil percentageOrdered By: Torres Koroma on 02-10-2025 Neutrophils/100 WBC (Bld) 41.1 % Low 47-[address] [facility] No Panel InformationOrdered By: Torres Koroma on 02-10-2025 Negative < 200 ng/mL [facility] 26 U/L <[address] [facility] Platelet countOrdered By: Hossein Koroma on 02-10-2025 Platelets (Bld) [#/Vol] 329 10*3/uL 150-[address] [facility] Potassium measurement (mass/ volume)Ordered By: Torres Koroma on 02-10-2025 Potassium (Unsp spec) [Mass/Vol] 3.3 mmol/L 3.3-5.[address] [facility] RBC Auto (Bld) [#/Vol]Ordere d By: Torres Koroma on 02-10-2025 RBC (Bld) [#/Vol] 3.95 10*6/uL Low 4.2-5.4 [facility] Screening urine fentanyl lloyd surementOrdered By: Torres Koroma on 02-10-2025 fentaNYL Screen Ql (U) Negative [facility] Serum creatinine measurement (mass/volume)Ordered By: Torres Koroma on 02-10-2025 Creatinine [Mass/Vol] 0.70 mg/dL 0.70-1.20 [facility] [facility] Serum globulin measurementOr dered By: Torres Koroma on 02-10-2025 Globulin (S) [Mass/Vol] 2.6 g/dL 2.2-4.2 [facility] Serum glucose measurement (m ass/volume)Ordered By: Torres Koroma on 02-10-2025 Glucose [Mass/Vol] 107 mg/dL High 70-99 [facility] Serum or plasma alanine gatica otransferase (ALT) measurementOrdered By: Torres Koroma on 02-10-2025 ALT [Catalytic activity/Vol] 17 U/L <[address] [facility] Serum or plasma albumin sonali urement (mass/volume)Ordered By: Torres Koroma on 02-10-2025 Albumin [Mass/Vol] 4.4 g/dL 3.4-4.8 [facility] Serum or plasma albumin/glob ulin mass ratioOrdered By: Torres Koroma on 02-10-2025 Albumin/Globulin [Mass ratio] 1.7 {ratio} 0.9-2.[address] [facility] Serum or plasma alkaline ike sphatase measurementOrdered By: Torres Koroma on 02-10-2025 ALP [Catalytic activity/Vol] 109 U/L High 35-[address] [facility] Serum or plasma calcium sonali urement (mass/volume)Ordered By: Torres Koroma on 02-10-2025 Calcium [Mass/Vol] 9.6 mg/dL 7.6-11.0 [facility] Serum or plasma ethanol sonali urement (mass/volume)Ordered By: Torres Koroma on 02-10-2025 Ethanol [Mass/Vol] mg/dL <10.1 [facility] Serum or plasma urea nitroge n measurement (mass/volume)Ordered By: Torres Koroma on 02-10-2025 Urea nitrogen [Mass/Vol] 17 mg/dL 4-[address] [facility] Sodium levelOrdered By: Torres Koroma on 02-10-2025 Sodium [Moles/Vol] 140 mmol/L 133-145 [facility] Total proteinOrdered By: Herbert Koroma on 02-10-2025 Protein [Mass/Vol] 7.0 g/dL 5.9-8.4 [facility] Urine Drug Screen (VISTA)on 02-10-2025 AMPHETAMINES Negative Normal <1000 ng/mL [facility] Comment on above: Performed By: #### L 505.5000, L100.0100, L501.9100, L500.4050 ####[facility] [address] [place], [address] BARBITIURATES Negative Normal < 200 ng/mL [facility] Comment on above: Performed By: #### L 505.5000, L100.0100, L501.9100, L500.4050 ####[facility] [address] [place], [address] BENZODIAZIPINE Negative Normal < 200 ng/mL [facility] Comment on above: Performed By: #### L 505.5000, L100.0100, L501.9100, L500.4050 ####[facility] [address] [place], [place], [phone] BUP Ur Drug Scr Negative Normal < 200 ng/mL [facility] Comment on above: Performed By: #### L 505.5000, L100.0100, L501.9100, L500.4050 ####[facility] [address] [place], [address] COCAINE Negative Normal < 300 ng/mL [facility] Comment on above: Performed By: #### L 505.5000, L100.0100, L501.9100, L500.4050 ####[facility] [address] [place], [address] Fentanyl Negative Normal [facility] Comment on above: Performed By: #### L 505.5000, L100.0100, L501.9100, L500.4050 ####[facility] [address] [place], [place], [phone] METHADONE Negative Normal < 300 ng/mL [facility] Comment on above: Performed By: #### L 505.5000, L100.0100, L501.9100, L500.4050 ####[facility] [address] [place], [address] OPIATES Negative Normal < 300 ng/mL [facility] Comment on above: Performed By: #### L 505.5000, L100.0100, L501.9100, L500.4050 ####[facility] [address] [place], [address] OXYCODONE Negative Normal < 100 ng/mL [facility] Comment on above: Performed By: #### L 505.5000, L100.0100, L501.9100, L500.4050 ####[facility] [address] [place], [address] PCP Negative Normal < 25 ng/mL [facility] Comment on above: Performed By: #### L 505.5000, L100.0100, L501.9100, L500.4050 ####[facility] [address] [place], [address] THC Negative Normal < 50 ng/mL [facility] Comment on above: Performed By: #### L 505.5000, L100.0100, L501.9100, L500.4050 ####[facility] [address] [place], [address] Urine phencyclidine (PCP) de tectionOrdered By: Torres Koroma on 02-10-2025 Phencyclidine Ql (U) Negative < 25 ng/mL [facility] White blood cell (WBC) count Ordered By: Torres Koroma on 02-10-2025 WBC (Bld) [#/Vol] 9.4 10*3/uL 4.4-11.0 [facility] Absolute lymphocyte countOrd ered By: Marycarmen Stevens on 02-09-2025 Lymphocytes Auto (Unsp spec) [#/Vol] 3.27 10*3/uL 0.83-4.[address] [facility] Anion gap in Serum or Plasma Ordered By: Marycarmen Stevens on 02-09-2025 Anion gap [Moles/Vol] 12 mmol/L 5-15 [facility] Automated lymphocyte count a s percentage of total leukocytesOrdered By: Marycarmen Stevens on 02-09-2025 Lymphocytes/100 WBC Auto (Unsp spec) 46.8 % High 19-[address] [facility] BUN/creatinine ratioOrdered By: Marycarmenjag Stevens on 02-09-2025 Urea nitrogen/Creatinine [Mass ratio] 29.2 mg/mg High 10-[address] [facility] Basophil percentageOrdered B y: Marycarmen Stevens on 02-09-2025 Basophils/100 WBC (Bld) 0.7 % 0-1 [facility] Bilirubin, totalOrdered By: Marycarmenjag Stevens on 02-09-2025 Bilirubin [Mass/Vol] 0.27 mg/dL 0.00-1.30 [facility] CBC W/Diff, Automatedon Absolute Lymph 3.27 X10 3/uL Normal 0.83-4.[address] [facility] Comment on above: Performed By: #### L 500.4050, L100.0100 ####[facility] [address] [place], [address] Absolute Neut 2.9 X10 3/uL Normal 2.0-7.[address] [facility] Comment on above: Performed By: #### L 500.4050, L100.0100 ####[facility] [address] [place], [address] Basophils/100 WBC (Bld) 0.7 % Normal 0-1 [facility] Comment on above: Performed By: #### L 500.4050, L100.0100 ####[facility] [address] [place], [address] Eosinophils/100 WBC (Bld) 2.7 % Normal 0-[address] [facility] Comment on above: Performed By: #### L 500.4050, L100.0100 ####[facility] [address] [place], [address] Erythrocyte distribution width (RBC) [Ratio] 13.0 % Normal 11.6-14.[address] [facility] Comment on above: Performed By: #### L 500.4050, L100.0100 ####[facility] [address] [place], [address] Hematocrit (Bld) [Volume fraction] 38.2 % Normal 37-[address] [facility] Comment on above: Performed By: #### L 500.4050, L100.0100 ####[facility] [address] [place], [address] Hemoglobin (Bld) [Mass/Vol] 12.6 g/dL Normal 12.0-15.[address] [facility] Comment on above: Performed By: #### L 500.4050, L100.0100 ####[facility] [address] [place], [address] IG% 0.300 Normal 0.0-0.[address] [facility] Comment on above: Result Comment: IG% - Immature Granulocytes (promyelocytes, myelocytes andmetamyelocytes) > 1% indicates that a LEFT SHIFT is Present. Performed By: #### L 500.4050, L100.0100 ####[facility] [address] [place], [address] Lymphocytes/100 WBC (Bld) 46.8 % High 19-[address] [facility] Comment on above: Performed By: #### L 500.4050, L100.0100 ####[facility] [address] [place], [address] MCH (RBC) [Entitic mass] 32.3 pg High 27.0-32.[address] [facility] Comment on above: Performed By: #### L 500.4050, L100.0100 ####[facility] [address] [place], [address] MCHC (RBC) [Mass/Vol] 33.0 g/dL Normal 32-36 [facility] Comment on above: Performed By: #### L 500.4050, L100.0100 ####[facility] [address] [place], [address] MCV (RBC) [Entitic vol] 97.9 fL Normal 81-99 [facility] Comment on above: Performed By: #### L 500.4050, L100.0100 ####[facility] [address] [place], [address] Monocytes/100 WBC (Bld) 7.9 % Normal 0-10 [facility] Comment on above: Performed By: #### L 500.4050, L100.0100 ####[facility] [address] [place], [address] Neutrophils/100 WBC (Bld) 41.6 % Low 47-[address] [facility] Comment on above: Performed By: #### L 500.4050, L100.0100 ####[facility] [address] [place], [address] Nucleated RBC (Bld) [#/Vol] 0 10*3/uL Normal 0-[address] [facility] Comment on above: Performed By: #### L 500.4050, L100.0100 ####[facility] [address] [place], [address] Platelet mean volume (Bld) [Entitic vol] 9.2 fL Normal 6.2-12.[address] [facility] Comment on above: Performed By: #### L 500.4050, L100.0100 ####[facility] [address] [place], [address] Platelets (Bld) [#/Vol] 346 10*3/uL Normal 150-[address] [facility] Comment on above: Performed By: #### L 500.4050, L100.0100 ####[facility] [address] [place], [address] RBC (Bld) [#/Vol] 3.90 10*6/uL Low 4.2-5.4 [facility] Comment on above: Performed By: #### L 500.4050, L100.0100 ####[facility] [address] [place], [address] RDW SD 46.5 fl High 35.1-43.[address] [facility] Comment on above: Performed By: #### L 500.4050, L100.0100 ####[facility] [address] [place], [address] WBC (Bld) [#/Vol] 7.0 10*3/uL Normal 4.4-11.0 [facility] Comment on above: Performed By: #### L 500.4050, L100.0100 ####[facility] [address] [place], [address] Carbon dioxide, total [Moles /volume] in Central venous bloodOrdered By: Marycarmen Stevens on 02-09-2025 CO2 [Moles/Vol] 24.6 mmol/L 21.0-32.[address] [facility] Chloride assayOrdered By: Suha Stevens on 02-09-2025 Chloride [Moles/Vol] 104 mmol/L 98-108 [facility] Comprehensive Metabolic Prof ilon 02-09-2025 Albumin [Mass/Vol] 4.3 g/dL Normal 3.4-4.8 [facility] Comment on above: Performed By: #### L 500.4050, L100.0100 ####[facility] [address] [place], [address] Albumin/Globulin [Mass ratio] 1.8 {ratio} Normal 0.9-2.[address] [facility] Comment on above: Performed By: #### L 500.4050, L100.0100 ####[facility] [address] [place], [address] ALK PHOS 113 U/L High 35-[address] [facility] Comment on above: Performed By: #### L 500.4050, L100.0100 ####[facility] [address] [place], [address] ALT [Catalytic activity/Vol] 12 U/L Normal <=[address] [facility] Comment on above: Performed By: #### L 500.4050, L100.0100 ####[facility] [address] [place], [address] AST [Catalytic activity/Vol] 23 U/L Normal <=[address] [facility] Comment on above: Performed By: #### L 500.4050, L100.0100 ####[facility] [address] [place], [address] Bilirubin [Mass/Vol] 0.27 mg/dL Normal 0.00-1.30 [facility] Comment on above: Performed By: #### L 500.4050, L100.0100 ####[facility] [address] [place], [address] BUN/CRE 29.2 RATIO High 10-[address] [facility] Comment on above: Performed By: #### L 500.4050, L100.0100 ####[facility] [address] [place], [address] Calcium [Mass/Vol] 9.2 mg/dL Normal 7.6-11.0 [facility] Comment on above: Performed By: #### L 500.4050, L100.0100 ####[facility] [address] [place], [address] Chloride [Moles/Vol] 104 mmol/L Normal 98-108 [facility] Comment on above: Performed By: #### L 500.4050, L100.0100 ####[facility] [address] [place], [address] CO2 [Moles/Vol] 24.6 mmol/L Normal 21.0-32.[address] [facility] Comment on above: Performed By: #### L 500.4050, L100.0100 ####[facility] [address] [place], [address] Creatinine [Mass/Vol] 0.69 mg/dL Low 0.70-1.20 [facility] Comment on above: Performed By: #### L 500.4050, L100.0100 ####[facility] [address] [place], [address] GAP 12 Normal 5-[address] [facility] Comment on above: Performed By: #### L 500.4050, L100.0100 ####[facility] [address] [place], [address] GFR/1.73 sq M.predicted among non-blacks MDRD (S/P/Bld) [Vol rate/Area] 92 mL/min/{1.73_m2} Normal >60 [facility] Comment on above: Result Comment: mL/m in/1.73m2 CKD-EPI Creatinine Equation (2020) Performed By: #### L 500.4050, L100.0100 ####[facility] [address] [place], [address] Globulin (S) [Mass/Vol] 2.4 g/dL Normal 2.2-4.2 [facility] Comment on above: Performed By: #### L 500.4050, L100.0100 ####[facility] [address] [place], [address] Glucose [Mass/Vol] 96 mg/dL Normal 70-99 [facility] Comment on above: Performed By: #### L 500.4050, L100.0100 ####[facility] [address] [place], [address] Potassium [Moles/Vol] 3.5 mmol/L Normal 3.3-5.1 [facility] Comment on above: Performed By: #### L 500.4050, L100.0100 ####[facility] [address] [place], [address] Sodium [Moles/Vol] 141 mmol/L Normal 133-145 [facility] Comment on above: Performed By: #### L 500.4050, L100.0100 ####[facility] [address] [place], [address] T PROT 6.7 g/dL Normal 5.9-8.[address] [facility] Comment on above: Performed By: #### L 500.4050, L100.0100 ####[facility] [address] [place], [address] Urea nitrogen [Mass/Vol] 20 mg/dL High 4-[address] [facility] Comment on above: Performed By: #### L 500.4050, L100.0100 ####[facility] [address] [place], [address] Eosinophil percentageOrdered By: Marycarmen Stevens on 02-09-2025 Eosinophils/100 WBC (Bld) 2.7 % 0-[address] [facility] Erythrocyte distribution wid th ratioOrdered By: Marycarmen Stevens on 02-09-2025 Erythrocyte distribution width (RBC) [Ratio] 13.0 % 11.6-14.[address] [facility] Erythrocyte distribution wid th standard deviationOrdered By: Marycarmen Stevens on 02-09-2025 Erythrocyte distribution width (RBC) [Ratio] 46.5 fl High 35.1-43.[address] [facility] Glomerular filtration rate ( GFR) estimation/1.73 sq m using serum, plasma, or whole bOrdered By: Marycarmen Stevens on 02-09-2025 GFR/1.73 sq M.predicted among non-blacks MDRD (S/P/Bld) [Vol rate/Area] 92 mL/min/{1.73_m2} >60 [facility] Hematocrit Auto (Bld) [Volum e fraction]Ordered By: Marycarmen Stevens on 02-09-2025 Hematocrit (Bld) [Volume fraction] 38.2 % 37-[address] [facility] Hemoglobin measurementOrdere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 Comment on above: Order Comment: NUNK Performed By: #### L 100.0100, L500.4050, L504.2610, L3130.0010, L3100.3425 ####[facility] [address] [place], [address] XYRAF-2-XQLK 0.3 g/dL Normal 0.0-0.[address] [facility] Comment on above: Order Comment: NUNK Performed By: #### L 100.0100, L500.4050, L504.2610, L3130.0010, L3100.3425 ####[facility] [address] [place], [address] GZNUA-5-BAJI 0.8 g/dL Normal 0.4-1.[address] [facility] Comment on above: Order Comment: NUNK Performed By: #### L 100.0100, L500.4050, L504.2610, L3130.0010, L3100.3425 ####[facility] [address] [place], [address] BETA GLOBULIN 1.3 g/dL Normal 0.7-1.[address] [facility] Comment on above: Order Comment: NUNK Performed By: #### L 100.0100, L500.4050, L504.2610, L3130.0010, L3100.3425 ####[facility] [address] [place], [address] GAMMA GLOBULIN 0.8 g/dL Normal 0.4-1.[address] [facility] Comment on above: Order Comment: NUNK Performed By: #### L 100.0100, L500.4050, L504.2610, L3130.0010, L3100.3425 ####[facility] [address] [place], [address] Globulin (S) [Mass/Vol] 3.1 g/dL Normal 2.2-3.9 [facility] Comment on above: Order Comment: NUNK Performed By: #### L 100.0100, L500.4050, L504.2610, L3130.0010, L3100.3425 ####[facility] [address] [place], [address] DOUGLAS RESULT,S Comment Abnormal . [facility] Comment on above: Order Comment: NUNK Result Comment: Immu nofixation shows IgG monoclonal protein with lambdalight chain specificity. Performed By: #### L 100.0100, L500.4050, L504.2610, L3130.0010, L3100.3425 ####[facility] [address] [place], [address] IMMUNOGLOB A QN 289 mg/dL Normal 64-[address] [facility] Comment on above: Order Comment: NUNK Performed By: #### L 100.0100, L500.4050, L504.2610, L3130.0010, L3100.3425 ####[facility] [address] [place], [address] IMMUNOGLOB G QN 831 mg/dL Normal 586-[address] [facility] Comment on above: Order Comment: NUNK Performed By: #### L 100.0100, L500.4050, L504.2610, L3130.0010, L3100.3425 ####[facility] [address] [place], [address] IMMUNOGLOB M QN 44 mg/dL Normal 26-[address] [facility] Comment on above: Order Comment: NUNK Performed By: #### L 100.0100, L500.4050, L504.2610, L3130.0010, L3100.3425 ####[facility] [address] [place], [address] M-Rajiv 0.2 g/dL Abnormal Not Observed [facility] Comment on above: Order Comment: NUNK Performed By: #### L 100.0100, L500.4050, L504.2610, L3130.0010, L3100.3425 ####[facility] [address] [place], [address] NOTE: Comment Normal . [facility] Comment on above: Order Comment: NUNK Result Comment: Prot ein electrophoresis scan will follow via computer,mail, or women's studies professor delivery. Performed By: #### L 100.0100, L500.4050, L504.2610, L3130.0010, L3100.3425 ####[facility] [address] [place], [place], [phone] Protein [Mass/Vol] 7.2 g/dL Normal 6.0-8.5 [facility] Comment on above: Order Comment: NUNK Performed By: #### L 100.0100, L500.4050, L504.2610, L3130.0010, L3100.3425 ####[facility] [address] [place], [address] [employer] Lambda Light Chainson 12-14-2024 FR KAPPA LT CHN 12.0 mg/L Normal 3.3-19.[address] [facility] Comment on above: Performed By: #### L 100.0100, L500.4050, L504.2610, L3130.0010, L3100.3425 ####[facility] [address] [place], [address] FR LAMBDA LT CH 17.3 mg/L Normal 5.7-26.[address] [facility] Comment on above: Performed By: #### L 100.0100, L500.4050, L504.2610, L3130.0010, L3100.3425 ####[facility] [address] [place], [address] KAPPA/LAMBDA % 0.69 Normal 0.26-1.[address] [facility] Comment on above: Result Comment: Perf ormed at: [facility]dywa[address] [place], [place] [id number] Director: Brian Bautista PhD, Phone: [phone] Performed By: #### L 100.0100, L500.4050, L504.2610, L3130.0010, L3100.3425 ####[facility] [address] [place], [address] L3410.9992on 12-14-2024 [facility] COM[facility] Normal . [facility] Comment on above: Order Comment: [id number] 9CTELOPEPTIDE TIGER FREEZE Result Comment: Test Ordered: [id number] C-Telopeptide, SerumC-Telopeptide, Serum 317 pg/mL ES Reference Range: .Reference Range:Premenopausal Women: 34 - 635Postmenopausal Women: 34 - 1037Performed at: [facility] [address] [place], [place] [id number] Director: Gurpreet Haney MD, Phone: [phone] at: [facility] CenterBpuwvz[address] [place], [place] [id number] Director: Brian Bautista PhD, Phone: [phone] Performed By: #### L 502.0300, L500.2500, L3410.9992, L3600.3025 ####[facility] [address] [place], [address] L3410.9992on 12-13-2024 [facility]. COMMENT Normal . [facility] Comment on above: Order Comment: [id number] 3NTELOPEPTIDE URINE REF Result Comment: Test Ordered: [id number] N-Telopeptide, UrineN-Telopeptide 713 nmol BCE BN Reference [...] p=0.03 51- 67 3.8 p=0.0006 67-188 17.3 p=0.18947. Menopausal Women Receiving Antiresorptive Therapy: The probability [...] Fernando GS, et al. Am J Med, 102:29-37,1997. (1):M757, 1996. 2. Bone H, Kamlesh J, et al. J Bone Min Res.11(1):M757,1995Performed at: [facility] [id number] Director: Rosalva Ross MD, Phone: [phone] at: [facility] [id number] Director: Brian Bautista PhD, Phone: [phone] Performed By: #### L 3410.9992 ####[facility] [address] [place], [address] L3600.3025on 12-11-2024 Calcium [Mass/Vol] 4.7 mg/dL Normal Not Estab. [facility] Comment on above: Result Comment: Perf ormed at: [facility] [id number] Director: Brian Bautista PhD, Phone: [phone] Performed By: #### L 502.0300, L500.2500, L3410.9992, L3600.3025 ####[facility] [address] [place], [address] 24 hour urine calcium measur ement (mass/volume)Ordered By: Raghav Ramon on 12-10-2024 Calcium (24H U) [Mass/Vol] 4.7 mg/dL Not Estab. [facility] Absolute lymphocyte countOrd ered By: Dontrell Torres on 12-10-2024 Lymphocytes Auto (Unsp spec) [#/Vol] 1.32 10*3/uL 0.83-4.[address] [facility] Albumin Elph [Mass/Vol]Order ed By: Dontrell Torres on 12-10-2024 Albumin [Mass/Vol] 4.1 g/dL 2.9-4.4 [facility] Anion gap in Serum or Plasma Ordered By: Raghav Ramon on 12-10-2024 Anion gap [Moles/Vol] 14 mmol/L 5-15 [facility] Automated lymphocyte count a s percentage of total leukocytesOrdered By: Dontrell Torres on 12-10-2024 Lymphocytes/100 WBC Auto (Unsp spec) 22.6 % - [facility] BUN/creatinine ratioOrdered By: Raghav Ramon on 12-10-2024 Urea nitrogen/Creatinine [Mass ratio] 27.0 mg/mg High 10- [facility] Basic Metabolic Profile (BMP )on 12-10-2024 BUN/CRE 27.0 RATIO High 10- [facility] Comment on above: Performed By: #### L 502.0300, L500.2500, L3410.9992, L3600.3025 ####[facility] [address] [place], [place], [address] Calcium [Mass/Vol] 9.5 mg/dL Normal 7.6-11.0 [facility] Comment on above: Performed By: #### L 502.0300, L500.2500, L3410.9992, L3600.3025 ####[facility] [address] [place], [address] Chloride [Moles/Vol] 102 mmol/L Normal 98-108 [facility] Comment on above: Performed By: #### L 502.0300, L500.2500, L3410.9992, L3600.3025 ####[facility] [address] [place], [address] CO2 [Moles/Vol] 21.7 mmol/L Normal 21.0-32.[address] [facility] Comment on above: Performed By: #### L 502.0300, L500.2500, L3410.9992, L3600.3025 ####[facility] [address] [place], [address] Creatinine [Mass/Vol] 0.73 mg/dL Normal 0.70-1.20 [facility] Comment on above: Performed By: #### L 502.0300, L500.2500, L3410.9992, L3600.3025 ####[facility] [address] [place], [address] GAP 14 Normal 5-[address] [facility] Comment on above: Performed By: #### L 502.0300, L500.2500, L3410.9992, L3600.3025 ####[facility] [address] [place], [address] GFR/1.73 sq M.predicted among non-blacks MDRD (S/P/Bld) [Vol rate/Area] 88 mL/min/{1.73_m2} Normal >60 [facility] Comment on above: Result Comment: mL/m in/1.73m2 CKD-EPI Creatinine Equation (2020) Performed By: #### L 502.0300, L500.2500, L3410.9992, L3600.3025 ####[facility] [address] [place], [address] Glucose [Mass/Vol] 191 mg/dL High 70-99 [facility] Comment on above: Performed By: #### L 502.0300, L500.2500, L3410.9992, L3600.3025 ####[facility] [address] [place], [address] Basophil percentageOrdered B y: Dontrell Torres on 12-10-2024 Basophils/100 WBC (Bld) 0.3 % 0-1 [facility] Bilirubin, totalOrdered By: Dontrell Waldropmalcolm on 12-10-2024 Bilirubin [Mass/Vol] 0.36 mg/dL 0.00-1.30 [facility] CBC W/Diff, Automatedon Absolute Lymph 1.32 X10 3/uL Normal 0.83-4.[address] [facility] Comment on above: Performed By: #### L 100.0100, L500.4050, L504.2610, L3130.0010, L3100.3425 ####[facility] [address] [place], [address] Absolute Neut 4.1 X10 3/uL Normal 2.0-7.[address] [facility] Comment on above: Performed By: #### L 100.0100, L500.4050, L504.2610, L3130.0010, L3100.3425 ####[facility] [address] [place], [address] Basophils/100 WBC (Bld) 0.3 % Normal 0-1 [facility] Comment on above: Performed By: #### L 100.0100, L500.4050, L504.2610, L3130.0010, L3100.3425 ####[facility] [address] [place], [address] Eosinophils/100 WBC (Bld) 0.3 % Normal 0-[address] [facility] Comment on above: Performed By: #### L 100.0100, L500.4050, L504.2610, L3130.0010, L3100.3425 ####[facility] [address] [place], [address] Erythrocyte distribution width (RBC) [Ratio] 12.7 % Normal 11.6-14.[address] [facility] Comment on above: Performed By: #### L 100.0100, L500.4050, L504.2610, L3130.0010, L3100.3425 ####[facility] [address] [place], [address] Hematocrit (Bld) [Volume fraction] 39.5 % Normal 37-[address] [facility] Comment on above: Performed By: #### L 100.0100, L500.4050, L504.2610, L3130.0010, L3100.3425 ####[facility] [address] [place], [address] Hemoglobin (Bld) [Mass/Vol] 13.2 g/dL Normal 12.0-15.[address] [facility] Comment on above: Performed By: #### L 100.0100, L500.4050, L504.2610, L3130.0010, L3100.3425 ####[facility] [address] [place], [address] IG% 0.500 Normal 0.0-0.[address] [facility] Comment on above: Result Comment: IG% - Immature Granulocytes (promyelocytes, myelocytes andmetamyelocytes) > 1% indicates that a LEFT SHIFT is Present. Performed By: #### L 100.0100, L500.4050, L504.2610, L3130.0010, L3100.3425 ####[facility] [address] [place], [address] Lymphocytes/100 WBC (Bld) 22.6 % Normal 19-[address] [facility] Comment on above: Performed By: #### L 100.0100, L500.4050, L504.2610, L3130.0010, L3100.3425 ####[facility] [address] [place], [address] MCH (RBC) [Entitic mass] 32.0 pg Normal 27.0-32.[address] [facility] Comment on above: Performed By: #### L 100.0100, L500.4050, L504.2610, L3130.0010, L3100.3425 ####[facility] [address] [place], [address] MCHC (RBC) [Mass/Vol] 33.4 g/dL Normal 32-36 [facility] Comment on above: Performed By: #### L 100.0100, L500.4050, L504.2610, L3130.0010, L3100.3425 ####[facility] [address] [place], [address] MCV (RBC) [Entitic vol] 95.9 fL Normal 81-99 [facility] Comment on above: Performed By: #### L 100.0100, L500.4050, L504.2610, L3130.0010, L3100.3425 ####[facility] [address] [place], [address] Monocytes/100 WBC (Bld) 5.8 % Normal 0-10 [facility] Comment on above: Performed By: #### L 100.0100, L500.4050, L504.2610, L3130.0010, L3100.3425 ####[facility] [address] [place], [address] Neutrophils/100 WBC (Bld) 70.5 % High 47-[address] [facility] Comment on above: Performed By: #### L 100.0100, L500.4050, L504.2610, L3130.0010, L3100.3425 ####[facility] [address] [place], [address] Nucleated RBC (Bld) [#/Vol] 0 10*3/uL Normal 0-[address] [facility] Comment on above: Performed By: #### L 100.0100, L500.4050, L504.2610, L3130.0010, L3100.3425 ####[facility] [address] [place], [address] Platelet mean volume (Bld) [Entitic vol] 9.1 fL Normal 6.2-12.[address] [facility] Comment on above: Performed By: #### L 100.0100, L500.4050, L504.2610, L3130.0010, L3100.3425 ####[facility] [address] [place], [address] Platelets (Bld) [#/Vol] 359 10*3/uL Normal 150-[address] [facility] Comment on above: Performed By: #### L 100.0100, L500.4050, L504.2610, L3130.0010, L3100.3425 ####[facility] [address] [place], [address] RBC (Bld) [#/Vol] 4.12 10*6/uL Low 4.2-5.4 [facility] Comment on above: Performed By: #### L 100.0100, L500.4050, L504.2610, L3130.0010, L3100.3425 ####[facility] [address] [place], [address] RDW SD 45.4 fl High 35.1-43.[address] [facility] Comment on above: Performed By: #### L 100.0100, L500.4050, L504.2610, L3130.0010, L3100.3425 ####[facility] [address] [place], [address] WBC (Bld) [#/Vol] 5.8 10*3/uL Normal 4.4-11.0 [facility] Comment on above: Performed By: #### L 100.0100, L500.4050, L504.2610, L3130.0010, L3100.3425 ####[facility] [address] [place], [address] Carbon dioxide, total [Moles /volume] in Central venous bloodOrdered By: Raghav Ramon on 12-10-2024 CO2 [Moles/Vol] 21.7 mmol/L 21.0-32.[address] [facility] Chloride assayOrdered By: Ky Ramon on 12-10-2024 Chloride [Moles/Vol] 102 mmol/L 98-108 [facility] Comprehensive Metabolic Prof ilon 12-10-2024 Albumin [Mass/Vol] 4.8 g/dL Normal 3.4-4.8 [facility] Comment on above: Order Comment: UNK Performed By: #### L 100.0100, L500.4050, L504.2610, L3130.0010, L3100.3425 ####[facility] [address] [place], [address] Albumin/Globulin [Mass ratio] 1.7 {ratio} Normal 0.9-2.[address] [facility] Comment on above: Order Comment: UNK Performed By: #### L 100.0100, L500.4050, L504.2610, L3130.0010, L3100.3425 ####[facility] [address] [place], [address] ALK PHOS 138 U/L High 35-[address] [facility] Comment on above: Order Comment: UNK Performed By: #### L 100.0100, L500.4050, L504.2610, L3130.0010, L3100.3425 ####[facility] [address] [place], [address] ALT [Catalytic activity/Vol] 14 U/L Normal <=[address] [facility] Comment on above: Order Comment: UNK Performed By: #### L 100.0100, L500.4050, L504.2610, L3130.0010, L3100.3425 ####[facility] [address] [place], [address] AST [Catalytic activity/Vol] 26 U/L Normal <=[address] [facility] Comment on above: Order Comment: UNK Performed By: #### L 100.0100, L500.4050, L504.2610, L3130.0010, L3100.3425 ####[facility] [address] [place], [address] Bilirubin [Mass/Vol] 0.36 mg/dL Normal 0.00-1.30 [facility] Comment on above: Order Comment: UNK Performed By: #### L 100.0100, L500.4050, L504.2610, L3130.0010, L3100.3425 ####[facility] [address] [place], [address] BUN/CRE 26.3 RATIO High 10-[address] [facility] Comment on above: Order Comment: UNK Performed By: #### L 100.0100, L500.4050, L504.2610, L3130.0010, L3100.3425 ####[facility] [address] [place], [address] Calcium [Mass/Vol] 9.7 mg/dL Normal 7.6-11.0 [facility] Comment on above: Order Comment: UNK Performed By: #### L 100.0100, L500.4050, L504.2610, L3130.0010, L3100.3425 ####[facility] [address] [place], [address] Chloride [Moles/Vol] 101 mmol/L Normal 98-108 [facility] Comment on above: Order Comment: UNK Performed By: #### L 100.0100, L500.4050, L504.2610, L3130.0010, L3100.3425 ####[facility] [address] [place], [address] CO2 [Moles/Vol] 22.5 mmol/L Normal 21.0-32.[address] [facility] Comment on above: Order Comment: UNK Performed By: #### L 100.0100, L500.4050, L504.2610, L3130.0010, L3100.3425 ####[facility] [address] [place], [address] Creatinine [Mass/Vol] 0.74 mg/dL Normal 0.70-1.20 [facility] Comment on above: Order Comment: UNK Performed By: #### L 100.0100, L500.4050, L504.2610, L3130.0010, L3100.3425 ####[facility] [address] [place], [address] ECRCL 77.71 ml/min Normal 50-[address] [facility] Comment on above: Order Comment: UNK Performed By: #### L 100.0100, L500.4050, L504.2610, L3130.0010, L3100.3425 ####[facility] [address] [place], [address] Performed By: #### L 502.0300, L500.2500, L3410.9992, L3600.3025 ####[facility] [address] [place], [address] GAP 13 Normal 5-[address] [facility] Comment on above: Order Comment: UNK Performed By: #### L 100.0100, L500.4050, L504.2610, L3130.0010, L3100.3425 ####[facility] [address] [place], [address] GFR/1.73 sq M.predicted among non-blacks MDRD (S/P/Bld) [Vol rate/Area] 85 mL/min/{1.73_m2} Normal >60 [facility] Comment on above: Order Comment: UNK Result Comment: mL/m in/1.73m2 CKD-EPI Creatinine Equation (2020) Performed By: #### L 100.0100, L500.4050, L504.2610, L3130.0010, L3100.3425 ####[facility] [address] [place], [address] Globulin (S) [Mass/Vol] 2.8 g/dL Normal 2.2-4.2 [facility] Comment on above: Order Comment: UNK Performed By: #### L 100.0100, L500.4050, L504.2610, L3130.0010, L3100.3425 ####[facility] [address] [place], [address] Glucose [Mass/Vol] 193 mg/dL High 70-99 [facility] Comment on above: Order Comment: UNK Performed By: #### L 100.0100, L500.4050, L504.2610, L3130.0010, L3100.3425 ####[facility] [address] [place], [address] Potassium [Moles/Vol] 3.5 mmol/L Normal 3.3-5.1 [facility] Comment on above: Order Comment: UNK Performed By: #### L 100.0100, L500.4050, L504.2610, L3130.0010, L3100.3425 ####[facility] [address] [place], [address] Performed By: #### L 502.0300, L500.2500, L3410.9992, L3600.3025 ####[facility] [address] [place], [address] Sodium [Moles/Vol] 137 mmol/L Normal 133-145 [facility] Comment on above: Order Comment: UNK Performed By: #### L 100.0100, L500.4050, L504.2610, L3130.0010, L3100.3425 ####[facility] [address] [place], [address] Performed By: #### L 502.0300, L500.2500, L3410.9992, L3600.3025 ####[facility] [address] [place], [address] T PROT 7.6 g/dL Normal 5.9-8.[address] [facility] Comment on above: Order Comment: UNK Performed By: #### L 100.0100, L500.4050, L504.2610, L3130.0010, L3100.3425 ####[facility] [address] [place], [address] Urea nitrogen [Mass/Vol] 20 mg/dL High 4-[address] [facility] Comment on above: Order Comment: UNK Performed By: #### L 100.0100, L500.4050, L504.2610, L3130.0010, L3100.3425 ####[facility] [address] [place], [address] Performed By: #### L 502.0300, L500.2500, L3410.9992, L3600.3025 ####[facility] [address] [place], [address] Creatinine, Urineon 12-11-19 25 URINE CREAT 76.90 mg/dL Normal 28.00-217.[address] [facility] Comment on above: Performed By: #### L 502.0300, L500.2500, L3410.9992, L3600.3025 ####[facility] [address] [place], [address] Eosinophil percentageOrdered By: [facility] on 12-10-2024 Eosinophils/100 WBC (Bld) 0.3 % 0-[address] [facility] Erythrocyte distribution wid th ratioOrdered By: [facility] on 12-10-2024 Erythrocyte distribution width (RBC) [Ratio] 12.7 % 11.6-14.[address] [facility] Erythrocyte distribution wid th standard deviationOrdered By: [facility] on 12-10-2024 Erythrocyte distribution width (RBC) [Ratio] 45.4 fl High 35.1-43.[address] [facility] Glomerular filtration rate ( GFR) estimation/1.73 sq m using serum, plasma, or whole bOrdered By: Raghav Ramon on 12-10-2024 GFR/1.73 sq M.predicted among non-blacks MDRD (S/P/Bld) [Vol rate/Area] 88 mL/min/{1.73_m2} >60 [facility] Hematocrit Auto (Bld) [Volum e fraction]Ordered By: [facility] on 12-10-2024 Hematocrit (Bld) [Volume fraction] 39.5 % 37-[address] [facility] Hemoglobin measurementOrdere d By: [facility] on 12-10-2024 Hemoglobin (Bld) [Mass/Vol] 13.2 g/dL 12.0-15.[address] [facility] Immature granulocytes/100 WB C Auto (Bld)Ordered By: [facility] on 12-10-2024 Immature granulocytes/100 WBC (Bld) 0.500 % 0.0-0.[address] [facility] Interpretation of serum or p lasma protein pattern by immunofixation (narrative resultOrdered By: [facility] 12-[facility]2024 Protein Fractions Immunofixation [place] [Interp] 0.2 g/dL High Not Observed [facility] LDHon 12-10-2024 LDH 266 U/L High 84-[address] [facility] Comment on above: Order Comment: UNK1 Performed By: #### L 100.0100, L500.4050, L504.2610, L3130.0010, L3100.3425 ####[facility] [address] [facility] [place], [address] MCV (mean corpuscular volume ) determinationOrdered By: Dontrell Torres on 12-10-2024 MCV (RBC) [Entitic vol] 95.9 fL 81-99 [facility] Mean corpuscular hemoglobin (MCH) determinationOrdered By: Dontrell Torres on 12-10-2024 MCH (RBC) [Entitic mass] 32.0 pg 27.0-32.[address] [facility] Monocyte percentageOrdered B y: Dontrell Torres on 12-10-2024 Monocytes/100 WBC (Bld) 5.8 % 0-10 [facility] Neutrophil percentageOrdered By: Dontrell Torres on 12-10-2024 Neutrophils/100 WBC (Bld) 70.5 % High 47-[address] [facility] No Panel InformationOrdered By: Dontrell Torres on 12-10-2024 Addendum Document Comment . [facility] 26 U/L <[address] [facility] Platelet countOrdered By: Licha Torres on 12-10-2024 Platelets (Bld) [#/Vol] 359 10*3/uL 150-[address] [facility] Potassium measurement (mass/ volume)Ordered By: Raghav Ramon on 12-10-2024 Potassium (Unsp spec) [Mass/Vol] 3.5 mmol/L 3.3-5.[address] [facility] RBC Auto (Bld) [#/Vol]Ordere d By: Dontrell Torres on 12-10-2024 RBC (Bld) [#/Vol] 4.12 10*6/uL Low 4.2-5.4 [facility] Serum creatinine measurement (mass/volume)Ordered By: Raghav Ramon on 12-10-2024 Creatinine [Mass/Vol] 0.73 mg/dL 0.70-1.20 [facility] Serum globulin measurement ( mass/volume)Ordered By: Dontrell Torres on 12-10-2024 Globulin (S) [Mass/Vol] 3.1 g/dL 2.2-3.9 [facility] Serum glucose measurement (m ass/volume)Ordered By: Raghav Ramon on 12-10-2024 Glucose [Mass/Vol] 191 mg/dL High 70-99 [facility] Serum immunoglobulin kappa l ight chains/immunoglobulin lambda light chains mass ratioOrdered By: Dontrell Torres on 12-10-2024 Immunoglobulin light chains.kappa/Immunoglobul in light chains.lambda (S) [Mass ratio] 0.69 0.26-1.[address] [facility] Serum or plasma IgA measurem ent (mass/volume)Ordered By: Dontrell Torres on 12-10-2024 IgA [Mass/Vol] 289 mg/dL 64-[address] [facility] Serum or plasma IgG measurem ent (mass/volume)Ordered By: Dontrell Torres on 12-10-2024 IgG [Mass/Vol] 831 mg/dL [phone] [facility] Serum or plasma alanine gatica otransferase (ALT) measurementOrdered By: Dontrell Torres on 12-10-2024 ALT [Catalytic activity/Vol] 14 U/L <[address] [facility] Serum or plasma albumin sonali urement (mass/volume)Ordered By: Dontrell Torres on 12-10-2024 Albumin [Mass/Vol] 4.8 g/dL 3.4-4.8 [facility] Serum or plasma albumin/glob ulin mass ratioOrdered By: Dontrell Torres on 12-10-2024 Albumin/Globulin [Mass ratio] 1.7 {ratio} 0.9-2.[address] [facility] Serum or plasma alkaline ike sphatase measurementOrdered By: Dontrell Torres on 12-10-2024 ALP [Catalytic activity/Vol] 138 U/L High 35-[address] [facility] Serum or plasma alpha 1 glob ulin measurement by electrophoresis (mass/volume)Ordered By: Dontrell Torres on 12-10-2024 Alpha 1 globulin Elph [Mass/Vol] 0.3 g/dL 0.0-0.[address] [facility] Alpha 1 globulin Elph [Mass/Vol] 0.8 g/dL 0.4-1.[address] [facility] Serum or plasma beta globuli n measurement by electrophoresis (mass/volume)Ordered By: Dontrell Torres on 12-10-2024 Beta globulin Elph [Mass/Vol] 1.3 g/dL 0.7-1.[address] [facility] Serum or plasma calcium sonali urement (mass/volume)Ordered By: Raghav Ramon on 12-10-2024 Calcium [Mass/Vol] 9.5 mg/dL 7.6-11.0 [facility] Serum or plasma gamma globul in measurement by electrophoresis (mass/volume)Ordered By: Dontrell Torres on 12-10-2024 Gamma globulin Elph [Mass/Vol] 0.8 g/dL 0.4-1.[address] [facility] Serum or plasma immunoelectr ophoresis interpretation (nominal result)Ordered By: Dontrell Torres on 12-10-2024 Interpretation IEP [Interp] Comment High . [facility] Serum or plasma immunoglobul in kappa light chains measurement (mass/volume)Ordered By: Dontrell Torres on 12-10-2024 Immunoglobulin light chains.kappa [Mass/Vol] 12.0 mg/L 3.3-19.[address] [facility] Serum or plasma protein sonali urement (mass/volume)Ordered By: Dontrell Torres on 12-10-2024 Protein [Mass/Vol] 7.2 g/dL 6.0-8.5 [facility] Serum or plasma urea nitroge n measurement (mass/volume)Ordered By: Raghav Ramon on 12-10-2024 Urea nitrogen [Mass/Vol] 20 mg/dL High 4-[address] [facility] Sodium levelOrdered By: Willy Ramon on 12-10-2024 Sodium [Moles/Vol] 137 mmol/L 133-145 [facility] Total proteinOrdered By: Gabo Torres on 12-10-2024 Protein [Mass/Vol] 7.6 g/dL 5.9-8.4 [facility] Urine creatinine measurement (mass/volume)Ordered By: Raghav Ramon on 12-10-2024 Creatinine (U) [Mass/Vol] 76.90 mg/dL 28 .00-217.[address] [facility] White blood cell (WBC) count Ordered By: Dontrell Torres on 12-10-2024 WBC (Bld) [#/Vol] 5.8 10*3/uL 4.4-11.0 [facility] Alcohol, Blood (Medical)-Ser umon 12-09-2024 SERUM ETOH < 10.1 Normal <=10.[address] [facility] Comment on above: Result Comment: This test is for medical purposes only. The legaldefinition of intoxication varies according to local law. Performed By: #### L 500.4050, L100.0100, L501.9100, L505.5000 ####[facility] [address] [place], [address] Amphetamine detection with 1 000 ng/mL as cutoffOrdered By: Raghav Ramon on 12-09-2024 Amphetamines Screen method >1000 ng/mL Ql (U) Negative < 200 ng/mL [facility] Bedside Glucoseon 12-09-2024 FINGERSTICK GLU 111 mg/dL High 74-[address] [facility] Comment on above: Result Comment: CHLOE JUAN OF PATIENT CARE PER NURSING PROTOCOL Performed By: #### L 501.080 ####[facility] [address] [place], [address] Bilirubin Test strip Ql (U)O rdered By: Raghav Ramon on 12-09-2024 Bilirubin Ql (U) Negative Negative [facility] Brain/Head without Contrasto n 12-09-2024 Brain/Head without Contrast Normal [facility] CBC W/Diff, Automatedon 05- Absolute Lymph 2.75 X10 3/uL Normal 0.83-4.[address] [facility] Comment on above: Performed By: #### L 500.4050, L100.0100, L501.9100, L505.5000 ####[facility] [address] [place], [address] Absolute Neut 6.1 X10 3/uL Normal 2.0-7.[address] [facility] Comment on above: Performed By: #### L 500.4050, L100.0100, L501.9100, L505.5000 ####[facility] [address] [place], [address] Basophils/100 WBC (Bld) 0.5 % Normal 0-1 [facility] Comment on above: Performed By: #### L 500.4050, L100.0100, L501.9100, L505.5000 ####[facility] [address] [place], [address] Eosinophils/100 WBC (Bld) 1.4 % Normal 0-[address] [facility] Comment on above: Performed By: #### L 500.4050, L100.0100, L501.9100, L505.5000 ####[facility] [address] [place], [address] Erythrocyte distribution width (RBC) [Ratio] 12.9 % Normal 11.6-14.[address] [facility] Comment on above: Performed By: #### L 500.4050, L100.0100, L501.9100, L505.5000 ####[facility] [address] [place], [address] Hematocrit (Bld) [Volume fraction] 37.9 % Normal 37-[address] [facility] Comment on above: Performed By: #### L 500.4050, L100.0100, L501.9100, L505.5000 ####[facility] [address] [place], [address] Hemoglobin (Bld) [Mass/Vol] 12.7 g/dL Normal 12.0-15.[address] [facility] Comment on above: Performed By: #### L 500.4050, L100.0100, L501.9100, L505.5000 ####[facility] [address] [place], [address] IG% 0.400 Normal 0.0-0.[address] [facility] Comment on above: Result Comment: IG% - Immature Granulocytes (promyelocytes, myelocytes andmetamyelocytes) > 1% indicates that a LEFT SHIFT is Present. Performed By: #### L 500.4050, L100.0100, L501.9100, L505.5000 ####[facility] [address] [place], [address] Lymphocytes/100 WBC (Bld) 28.1 % Normal 19-[address] [facility] Comment on above: Performed By: #### L 500.4050, L100.0100, L501.9100, L505.5000 ####[facility] [address] [place], [address] MCH (RBC) [Entitic mass] 32.0 pg Normal 27.0-32.[address] [facility] Comment on above: Performed By: #### L 500.4050, L100.0100, L501.9100, L505.5000 ####[facility] [address] [place], [address] MCHC (RBC) [Mass/Vol] 33.5 g/dL Normal 32-36 [facility] Comment on above: Performed By: #### L 500.4050, L100.0100, L501.9100, L505.5000 ####[facility] [address] [place], [address] MCV (RBC) [Entitic vol] 95.5 fL Normal 81-99 [facility] Comment on above: Performed By: #### L 500.4050, L100.0100, L501.9100, L505.5000 ####[facility] [address] [place], [address] Monocytes/100 WBC (Bld) 7.7 % Normal 0-10 [facility] Comment on above: Performed By: #### L 500.4050, L100.0100, L501.9100, L505.5000 ####[facility] [address] [place], [address] Neutrophils/100 WBC (Bld) 61.9 % Normal 47-[address] [facility] Comment on above: Performed By: #### L 500.4050, L100.0100, L501.9100, L505.5000 ####[facility] [address] [place], [address] Nucleated RBC (Bld) [#/Vol] 0 10*3/uL Normal 0-[address] [facility] Comment on above: Performed By: #### L 500.4050, L100.0100, L501.9100, L505.5000 ####[facility] [address] [place], [address] Platelet mean volume (Bld) [Entitic vol] 9.0 fL Normal 6.2-12.[address] [facility] Comment on above: Performed By: #### L 500.4050, L100.0100, L501.9100, L505.5000 ####[facility] [address] [place], [address] Platelets (Bld) [#/Vol] 337 10*3/uL Normal 150-[address] [facility] Comment on above: Performed By: #### L 500.4050, L100.0100, L501.9100, L505.5000 ####[facility] [address] [place], [address] RBC (Bld) [#/Vol] 3.97 10*6/uL Low 4.2-5.4 [facility] Comment on above: Performed By: #### L 500.4050, L100.0100, L501.9100, L505.5000 ####[facility] [address] [place], [address] RDW SD 45.1 fl High 35.1-43.[address] [facility] Comment on above: Performed By: #### L 500.4050, L100.0100, L501.9100, L505.5000 ####[facility] [address] [place], [address] WBC (Bld) [#/Vol] 9.8 10*3/uL Normal 4.4-11.0 [facility] Comment on above: Performed By: #### L 500.4050, L100.0100, L501.9100, L505.5000 ####[facility] [address] [place], [address] Chest PA and Lateralon 12-09 Chest PA and Lateral Normal [facility] Comprehensive Metabolic Prof ilon 12-09-2024 Albumin [Mass/Vol] 4.4 g/dL Normal 3.4-4.8 [facility] Comment on above: Performed By: #### L 500.4050, L100.0100, L501.9100, L505.5000 ####[facility] [address] [place], [address] Albumin/Globulin [Mass ratio] 1.5 {ratio} Normal 0.9-2.[address] [facility] Comment on above: Performed By: #### L 500.4050, L100.0100, L501.9100, L505.5000 ####[facility] [address] [place], [address] ALK PHOS 128 U/L High 35-[address] [facility] Comment on above: Performed By: #### L 500.4050, L100.0100, L501.9100, L505.5000 ####[facility] [address] [place], [address] ALT [Catalytic activity/Vol] 12 U/L Normal <=[address] [facility] Comment on above: Performed By: #### L 500.4050, L100.0100, L501.9100, L505.5000 ####[facility] [address] [place], [address] AST [Catalytic activity/Vol] 22 U/L Normal <=[address] [facility] Comment on above: Performed By: #### L 500.4050, L100.0100, L501.9100, L505.5000 ####[facility] [address] [place], [address] Bilirubin [Mass/Vol] 0.59 mg/dL Normal 0.00-1.30 [facility] Comment on above: Performed By: #### L 500.4050, L100.0100, L501.9100, L505.5000 ####[facility] [address] [place], [address] BUN/CRE 31.5 RATIO High 10-[address] [facility] Comment on above: Performed By: #### L 500.4050, L100.0100, L501.9100, L505.5000 ####[facility] [address] [place], [address] Calcium [Mass/Vol] 9.3 mg/dL Normal 7.6-11.0 [facility] Comment on above: Performed By: #### L 500.4050, L100.0100, L501.9100, L505.5000 ####[facility] [address] [place], [address] Chloride [Moles/Vol] 102 mmol/L Normal 98-108 [facility] Comment on above: Performed By: #### L 500.4050, L100.0100, L501.9100, L505.5000 ####[facility] [address] [place], [address] CO2 [Moles/Vol] 20.6 mmol/L Low 21.0-32.[address] [facility] Comment on above: Performed By: #### L 500.4050, L100.0100, L501.9100, L505.5000 ####[facility] [address] [place], [address] Creatinine [Mass/Vol] 0.89 mg/dL Normal 0.70-1.20 [facility] Comment on above: Performed By: #### L 500.4050, L100.0100, L501.9100, L505.5000 ####[facility] [address] [place], [address] ECRCL 69.85 ml/min Normal 50-[address] [facility] Comment on above: Performed By: #### L 500.4050, L100.0100, L501.9100, L505.5000 ####[facility] [address] [place], [address] GAP 15 Normal 5-[address] [facility] Comment on above: Performed By: #### L 500.4050, L100.0100, L501.9100, L505.5000 ####[facility] [address] [place], [address] GFR/1.73 sq M.predicted among non-blacks MDRD (S/P/Bld) [Vol rate/Area] 68 mL/min/{1.73_m2} Normal >60 [facility] Comment on above: Result Comment: mL/m in/1.73m2 CKD-EPI Creatinine Equation (2020) Performed By: #### L 500.4050, L100.0100, L501.9100, L505.5000 ####[facility] [address] [place], [address] Globulin (S) [Mass/Vol] 2.9 g/dL Normal 2.2-4.2 [facility] Comment on above: Performed By: #### L 500.4050, L100.0100, L501.9100, L505.5000 ####[facility] [address] [place], [address] Glucose [Mass/Vol] 128 mg/dL High 70-99 [facility] Comment on above: Performed By: #### L 500.4050, L100.0100, L501.9100, L505.5000 ####[facility] [address] [place], [address] Potassium [Moles/Vol] 3.5 mmol/L Normal 3.3-5.1 [facility] Comment on above: Performed By: #### L 500.4050, L100.0100, L501.9100, L505.5000 ####[facility] [address] [place], [address] Sodium [Moles/Vol] 137 mmol/L Normal 133-145 [facility] Comment on above: Performed By: #### L 500.4050, L100.0100, L501.9100, L505.5000 ####[facility] [address] [place], [address] T PROT 7.2 g/dL Normal 5.9-8.[address] [facility] Comment on above: Performed By: #### L 500.4050, L100.0100, L501.9100, L505.5000 ####[facility] [address] [place], [address] Urea nitrogen [Mass/Vol] 28 mg/dL High 4-[address] [facility] Comment on above: Performed By: #### L 500.4050, L100.0100, L501.9100, L505.5000 ####[facility] [address] [place], [address] Emergency Department Summary on 12-09-2024 Emergency Department Summary Normal [facility] Gl[facility] deOrdered By: Raghav Ramon on 12-09-2024 Glucose [Mass/Vol] 111 mg/dL High 74-106 [facility] Hyaline casts LM.LPF (Urine sed) [#/Area]Ordered By: Raghav Ramon on 12-09-2024 Hyaline casts (Urine sed) [#/Area] 0 /[LPF] 0-[address] [facility] Ketones Test strip Ql (U)Ord ered By: Raghav Ramon on 12-09-2024 Ketones Ql (U) 5 mg/dl High Negative [facility] L509.6002on 12-09-2024 CORTISOL 5.52 ug/dL Normal 2.68-10.[address] [facility] Comment on above: Performed By: #### L 509.6002 ####[facility] [address] [place], [place], [id number] Mucus LM Ql (Urine sed)Order ed By: Raghav Ramon on 12-09-2024 Mucus Ql (Urine sed) 0 SEEN /hpf [facility] Nitrite Test strip Ql (U)Ord ered By: Raghav Ramon on 12-09-2024 Nitrite Ql (U) Negative Negative [facility] No Panel InformationOrdered By: Raghav Ramon on 12-09-2024 Negative < 200 ng/mL [facility] Protein Test strip Ql (U)Ord ered By: Raghav Ramon on 12-09-2024 Protein Ql (U) 15 mg/dl High Negative [facility] Screening urine fentanyl lloyd surementOrdered By: Raghav Ramon on 12-09-2024 fentaNYL Screen Ql (U) Negative [facility] Serum or plasma cortisol lloyd surement (mass/volume)Ordered By: Raghav Ramon on 12-09-2024 Cortisol [Mass/Vol] 5.52 ug/dL 2.68-10.50 [facility] Serum or plasma ethanol sonali urement (mass/volume)Ordered By: Raghav Ramon on 12-09-2024 Ethanol [Mass/Vol] mg/dL <10.1 [facility] Squamous epithelial cells de tection in urine sediment by light microscopyOrdered By: Raghav Ramon on 12-09-2024 Epithelial cells.squamous LM Ql (Urine sed) 0-5 SEEN /hpf 5-[address] [facility] Urinalysis, Completeon 12-09 CAST,HYALINE 0-5 SEEN Normal 0-[address] [facility] Comment on above: Order Comment: TONE CTOR TO SPECIFY Performed By: #### L 400.0001 ####[facility] [address] [place], [place], [id number] EPI,SQUAMOUS 0-5 SEEN Normal 5-[address] [facility] Comment on above: Order Comment: TONE CTOR TO SPECIFY Performed By: #### L 400.0001 ####[facility] [address] [place], [address] RBC 0-5 SEEN Normal 0-[address] [facility] Comment on above: Order Comment: TONE CTOR TO SPECIFY Performed By: #### L 400.0001 ####[facility] [address] [place], [address] WBC 0-5 SEEN Normal 0-[address] [facility] Comment on above: Order Comment: TONE CTOR TO SPECIFY Performed By: #### L 400.0001 ####[facility] [address] [place], [address] BACTERIA 0 SEEN Normal None Seen [facility] Comment on above: Order Comment: TONE CTOR TO SPECIFY Performed By: #### L 400.0001 ####[facility] [address] [place], [address] Mucus Ql (Urine sed) 0 SEEN Normal [facility] Comment on above: Order Comment: TONE CTOR TO SPECIFY Performed By: #### L 400.0001 ####[facility] [address] [place], [address] Urine Drug Screen (VISTA)on 12-09-2024 AMPHETAMINES Negative Normal <1000 ng/mL [facility] Comment on above: Performed By: #### L 500.4050, L100.0100, L501.9100, L505.5000 ####[facility] [address] [place], [address] BARBITIURATES Negative Normal < 200 ng/mL [facility] Comment on above: Performed By: #### L 500.4050, L100.0100, L501.9100, L505.5000 ####[facility] [address] [place], [address] BENZODIAZIPINE Negative Normal < 200 ng/mL [facility] Comment on above: Performed By: #### L 500.4050, L100.0100, L501.9100, L505.5000 ####[facility] [address] [place], [address] BUP Ur Drug Scr Negative Normal < 200 ng/mL [facility] Comment on above: Performed By: #### L 500.4050, L100.0100, L501.9100, L505.5000 ####[facility] [address] [place], [address] COCAINE Negative Normal < 300 ng/mL [facility] Comment on above: Performed By: #### L 500.4050, L100.0100, L501.9100, L505.5000 ####[facility] [address] [place], [address] Fentanyl Negative Normal [facility] Comment on above: Performed By: #### L 500.4050, L100.0100, L501.9100, L505.5000 ####[facility] [address] [place], [address] METHADONE Negative Normal < 300 ng/mL [facility] Comment on above: Performed By: #### L 500.4050, L100.0100, L501.9100, L505.5000 ####[facility] [address] [place], [address] OPIATES Negative Normal < 300 ng/mL [facility] Comment on above: Performed By: #### L 500.4050, L100.0100, L501.9100, L505.5000 ####[facility] [address] [place], [address] OXYCODONE Negative Normal < 100 ng/mL [facility] Comment on above: Performed By: #### L 500.4050, L100.0100, L501.9100, L505.5000 ####[facility] [address] [place], [address] PCP Negative Normal < 25 ng/mL [facility] Comment on above: Performed By: #### L 500.4050, L100.0100, L501.9100, L505.5000 ####[facility] [address] [place], [address] THC Negative Normal < 50 ng/mL [facility] Comment on above: Performed By: #### L 500.4050, L100.0100, L501.9100, L505.5000 ####[facility] [address] [place], [address] Urine clarityOrdered By: Khushi Ramon on 12-09-2024 Clarity (U) Clear Clear [facility] Urine color determinationOrd ered By: Raghav Ramon on 12-09-2024 Color (U) Yellow Yellow [facility] Urine glucose detectionOrder ed By: Raghav Ramon on 12-09-2024 Glucose Ql (U) Normal mg/dl Normal [facility] Urine leukocyte esterase det ection by dipstickOrdered By: Raghav Ramon on 12-09-2024 Leukocyte esterase Test strip Ql (U) Negative Negative [facility] Urine pHOrdered By: Raghav Ramon on 12-09-2024 pH (U) 6.0 [pH] 5.0 - 8.[address] [facility] Urine phencyclidine (PCP) de tectionOrdered By: Raghav Ramon on 12-09-2024 Phencyclidine Ql (U) Negative < 25 ng/mL [facility] Urine sediment bacteria coun t by microscopy (number/high power field)Ordered By: Raghav Ramon on 12-09-2024 Bacteria LM.HPF (Urine sed) [#/Area] 0 /[HPF] None Seen [facility] Urine specific gravity measu rementOrdered By: Raghav Ramon on 12-09-2024 Specific gravity (U) [Rel density] 1.020 1.002-1.[address] [facility] Urine urobilinogen measureme ntOrdered By: Raghav Ramon on 12-09-2024 Urobilinogen Ql (U) Normal mg/dl Normal [facility] White blood cell countOrdere d By: Raghav Ramon on 12-09-2024 White blood cell count 0-5 SEEN /hpf 0-[address] [facility] Bone density reportOrdered B y: Billy Kaplan on 11-24-2024 Study report Skeletal system DXA [facility] Dexa Bone Density Studyon Dexa Bone Density Study Normal [facility] ALP [Catalytic activity/Vol] Ordered By: Marycarmen Stevens on 11-19-2024 Serum or plasma alkaline phosphatase measurement 110 U/L High 35-[address] [facility] ALT [Catalytic activity/Vol] Ordered By: Marycarmen Stevens on 11-19-2024 Serum or plasma alanine aminotransferase (ALT) measurement 12 U/L <[address] [facility] Absolute lymphocyte countOrd ered By: Marycarmen Stevens on 11-19-2024 Lymphocytes Auto (Unsp spec) [#/Vol] 3.88 10*3/uL 0.83-4.[address] [facility] Absolute neutrophil countOrd ered By: Marycarmen Stevens on 11-19-2024 Absolute neutrophil count 2.8 X10^3/uL 2.0-7.[address] [facility] Albumin [Mass/Vol]Ordered By : Marycarmen Stevens on 11-19-2024 Serum or plasma albumin measurement (mass/volume) 4.1 g/dL 3.4-4.8 [facility] Albumin/Globulin [Mass ratio ]Ordered By: Marycarmen Stevens on 11-19-2024 Serum or plasma albumin/globulin mass ratio 1.6 RATIO 0.9-2.[address] [facility] Anion gap [Moles/Vol]Ordered By: Marycarmen Stevens on 11-19-2024 Anion gap in Serum or Plasma 11 - [facility] Anion gap in Serum or Plasma Ordered By: Marycarmen Stevens on 11-19-2024 Anion gap [Moles/Vol] 11 mmol/L 12-23 [facility] Automated lymphocyte count a s percentage of total leukocytesOrdered By: Marycarmen Stevens on 11-19-2024 Lymphocytes/100 WBC Auto (Unsp spec) 53.5 % High 19-[address] [facility] BUN/creatinine ratioOrdered By: Marycarmen Stevens on 11-19-2024 Urea nitrogen/Creatinine [Mass ratio] 21.4 mg/mg High 10-[address] [facility] BUN/creatinine ratio 21.4 RATIO High 10-20 [facility] Basophil percentageOrdered B y: Marycarmen Stevens on 11-19-2024 Basophils/100 WBC (Bld) 0.6 % 0-1 [facility] Basophil percentage 0.6 % 0-1 [facility] Bilirubin, totalOrdered By: Marycarmen Orellanamohsen on 11-19-2024 Bilirubin [Mass/Vol] 0.37 mg/dL 0.00-1.30 [facility] Bilirubin, total 0.37 mg/dL 0.00-1.[address] [facility] CBC W/Diff, Automatedon 11-09 Absolute Lymph 3.88 X10 3/uL Normal 0.83-4.[address] [facility] Comment on above: Performed By: #### L 100.0100, L500.4050 ####[facility] [address] [place], [address] Absolute Neut 2.8 X10 3/uL Normal 2.0-7.[address] [facility] Comment on above: Performed By: #### L 100.0100, L500.4050 ####[facility] [address] [place], [address] Basophils/100 WBC (Bld) 0.6 % Normal 0-1 [facility] Comment on above: Performed By: #### L 100.0100, L500.4050 ####[facility] [address] [place], [address] Eosinophils/100 WBC (Bld) 2.8 % Normal 0-[address] [facility] Comment on above: Performed By: #### L 100.0100, L500.4050 ####[facility] [address] [place], [address] Erythrocyte distribution width (RBC) [Ratio] 12.7 % Normal 11.6-14.[address] [facility] Comment on above: Performed By: #### L 100.0100, L500.4050 ####[facility] [address] [place], [address] Hematocrit (Bld) [Volume fraction] 36.2 % Low 37-[address] [facility] Comment on above: Performed By: #### L 100.0100, L500.4050 ####[facility] [address] [place], [address] Hemoglobin (Bld) [Mass/Vol] 11.7 g/dL Low 12.0-15.[address] [facility] Comment on above: Performed By: #### L 100.0100, L500.4050 ####[facility] [address] [place], [address] IG% 0.100 Normal 0.0-0.[address] [facility] Comment on above: Result Comment: IG% - Immature Granulocytes (promyelocytes, myelocytes andmetamyelocytes) > 1% indicates that a LEFT SHIFT is Present. Performed By: #### L 100.0100, L500.4050 ####[facility] [address] [place], [address] Lymphocytes/100 WBC (Bld) 53.5 % High 19-[address] [facility] Comment on above: Performed By: #### L 100.0100, L500.4050 ####[facility] [address] [place], [address] MCH (RBC) [Entitic mass] 32.5 pg High 27.0-32.[address] [facility] Comment on above: Performed By: #### L 100.0100, L500.4050 ####[facility] [address] [place], [address] MCHC (RBC) [Mass/Vol] 32.3 g/dL Normal 32-36 [facility] Comment on above: Performed By: #### L 100.0100, L500.4050 ####[facility] [address] [place], [address] MCV (RBC) [Entitic vol] 100.6 fL High 81-99 [facility] Comment on above: Performed By: #### L 100.0100, L500.4050 ####[facility] [address] [place], [address] Monocytes/100 WBC (Bld) 4.7 % Normal 0-10 [facility] Comment on above: Performed By: #### L 100.0100, L500.4050 ####[facility] [address] [place], [address] Neutrophils/100 WBC (Bld) 38.3 % Low 47-[address] [facility] Comment on above: Performed By: #### L 100.0100, L500.4050 ####[facility] [address] [place], [address] Nucleated RBC (Bld) [#/Vol] 0 10*3/uL Normal 0-[address] [facility] Comment on above: Performed By: #### L 100.0100, L500.4050 ####[facility] [address] [place], [address] Platelet mean volume (Bld) [Entitic vol] 9.2 fL Normal 6.2-12.[address] [facility] Comment on above: Performed By: #### L 100.0100, L500.4050 ####[facility] [address] [place], [address] Platelets (Bld) [#/Vol] 294 10*3/uL Normal 150-[address] [facility] Comment on above: Performed By: #### L 100.0100, L500.4050 ####[facility] [address] [place], [address] RBC (Bld) [#/Vol] 3.60 10*6/uL Low 4.2-5.4 [facility] Comment on above: Performed By: #### L 100.0100, L500.4050 ####[facility] [address] [place], [address] RDW SD 47.3 fl High 35.1-43.[address] [facility] Comment on above: Performed By: #### L 100.0100, L500.4050 ####[facility] [address] [place], [address] WBC (Bld) [#/Vol] 7.3 10*3/uL Normal 4.4-11.0 [facility] Comment on above: Performed By: #### L 100.0100, L500.4050 ####[facility] [address] [place], [address] Calcium [Mass/Vol]Ordered By : Marycarmen Stevens on 11-19-2024 Serum or plasma calcium measurement (mass/volume) 9.2 mg/dL 7.6-11.0 [facility] Carbon dioxide, total [Moles /volume] in Central venous bloodOrdered By: Marycarmen Stevens on 11-19-2024 CO2 [Moles/Vol] 23.0 mmol/L 21.0-32.[address] [facility] Carbon dioxide, total [Moles/volume] in Central venous blood 23.0 mmol/L 21.0-32.[address] [facility] Chloride assayOrdered By: Suha Stevens on 11-19-2024 Chloride [Moles/Vol] 106 mmol/L 98-108 [facility] Chloride assay 106 mmol/L 98-[address] [facility] Comprehensive Metabolic Prof ilon 11-19-2024 Albumin [Mass/Vol] 4.1 g/dL Normal 3.4-4.8 [facility] Comment on above: Performed By: #### L 100.0100, L500.4050 ####[facility] [address] [place], [address] Albumin/Globulin [Mass ratio] 1.6 {ratio} Normal 0.9-2.[address] [facility] Comment on above: Performed By: #### L 100.0100, L500.4050 ####[facility] [address] [place], [address] ALK PHOS 110 U/L High 35-[address] [facility] Comment on above: Performed By: #### L 100.0100, L500.4050 ####[facility] [address] [place], [address] ALT [Catalytic activity/Vol] 12 U/L Normal <=[address] [facility] Comment on above: Performed By: #### L 100.0100, L500.4050 ####[facility] [address] [place], [address] AST [Catalytic activity/Vol] 21 U/L Normal <=[address] [facility] Comment on above: Performed By: #### L 100.0100, L500.4050 ####[facility] [address] [place], [address] Bilirubin [Mass/Vol] 0.37 mg/dL Normal 0.00-1.30 [facility] Comment on above: Performed By: #### L 100.0100, L500.4050 ####[facility] [address] [place], [address] BUN/CRE 21.4 RATIO High 10-[address] [facility] Comment on above: Performed By: #### L 100.0100, L500.4050 ####[facility] [address] [place], [address] Calcium [Mass/Vol] 9.2 mg/dL Normal 7.6-11.0 [facility] Comment on above: Performed By: #### L 100.0100, L500.4050 ####[facility] [address] [place], [address] Chloride [Moles/Vol] 106 mmol/L Normal 98-108 [facility] Comment on above: Performed By: #### L 100.0100, L500.4050 ####[facility] [address] [place], [address] CO2 [Moles/Vol] 23.0 mmol/L Normal 21.0-32.[address] [facility] Comment on above: Performed By: #### L 100.0100, L500.4050 ####[facility] [address] [place], [address] Creatinine [Mass/Vol] 0.82 mg/dL Normal 0.70-1.20 [facility] Comment on above: Performed By: #### L 100.0100, L500.4050 ####[facility] [address] [place], [address] GAP 11 Normal 5-[address] [facility] Comment on above: Performed By: #### L 100.0100, L500.4050 ####[facility] [address] [place], [address] GFR/1.73 sq M.predicted among non-blacks MDRD (S/P/Bld) [Vol rate/Area] 77 mL/min/{1.73_m2} Normal >60 [facility] Comment on above: Result Comment: mL/m in/1.73m2 CKD-EPI Creatinine Equation (2020) Performed By: #### L 100.0100, L500.4050 ####[facility] [address] [place], [address] Globulin (S) [Mass/Vol] 2.5 g/dL Normal 2.2-4.2 [facility] Comment on above: Performed By: #### L 100.0100, L500.4050 ####[facility] [address] [place], [address] Glucose [Mass/Vol] 108 mg/dL High 70-99 [facility] Comment on above: Performed By: #### L 100.0100, L500.4050 ####[facility] [address] [place], [address] Potassium [Moles/Vol] 3.6 mmol/L Normal 3.3-5.1 [facility] Comment on above: Performed By: #### L 100.0100, L500.4050 ####[facility] [address] [place], [address] Sodium [Moles/Vol] 140 mmol/L Normal 133-145 [facility] Comment on above: Performed By: #### L 100.0100, L500.4050 ####[facility] [address] [place], [address] T PROT 6.6 g/dL Normal 5.9-8.[address] [facility] Comment on above: Performed By: #### L 100.0100, L500.4050 ####[facility] [address] [place], [address] Urea nitrogen [Mass/Vol] 18 mg/dL Normal 4-[address] [facility] Comment on above: Performed By: #### L 100.0100, L500.4050 ####[facility] [address] [place], [address] Creatinine [Mass/Vol]Ordered By: Marycarmen Stevens on 11-19-2024 Serum creatinine measurement (mass/volume) 0.82 mg/dL 0.70-1.20 [facility] Eosinophil percentageOrdered By: Marycarmen Stevens on 11-19-2024 Eosinophils/100 WBC (Bld) 2.8 % 0-[address] [facility] Eosinophil percentage 2.8 % 0-5 [facility] Erythrocyte distribution wid th (RBC) [Ratio]Ordered By: Marycarmen Stevens on 11-19-2024 Erythrocyte distribution width ratio 12.7 % 11.6-14.[address] [facility] Erythrocyte distribution width standard deviation 47.3 fl High 35.1-43.[address] [facility] Erythrocyte distribution wid th ratioOrdered By: Marycarmen Stevens on 11-19-2024 Erythrocyte distribution width (RBC) [Ratio] 12.7 % 11.6-14.[address] [facility] Erythrocyte distribution wid th standard deviationOrdered By: Marycarmen Stevens on 11-19-2024 Erythrocyte distribution width (RBC) [Ratio] 47.3 fl High 35.1-43.[address] [facility] GFR/1.73 sq M.predicted ilana g non-blacks MDRD (S/P/Bld) [Vol rate/Area]Ordered By: Marycarmen Stevens on 11-19-2024 Glomerular filtration rate (GFR) estimation/1.73 sq m using serum, plasma, or whole b 77 >[address] [facility] Glomerular filtration rate ( GFR) estimation/1.73 sq m using serum, plasma, or whole bOrdered By: Marycarmen Stevens on 11-19-2024 GFR/1.73 sq M.predicted among non-blacks MDRD (S/P/Bld) [Vol rate/Area] 77 mL/min/{1.73_m2} >60 [facility] Glucose [Mass/Vol]Ordered By : Marycarmen Stevens on 11-19-2024 Serum glucose measurement (mass/volume) 108 mg/dL High 70-[address] [facility] Hematocrit Auto (Bld) [Volum e fraction]Ordered By: Marycarmen Stevens on 11-19-2024 Hematocrit (Bld) [Volume fraction] 36.2 % Low 37-[address] [facility] Automated blood hematocrit (percentage) 36.2 % Low 37-[address] [facility] Hemoglobin measurementOrdere d By: Marycarmen Stevens on 11-19-2024 Hemoglobin (Bld) [Mass/Vol] 11.7 g/dL Low 12.0-15.[address] [facility] Hemoglobin measurement 11.7 g/dL Low 12.0-15.0 [facility] Immature granulocytes/100 WB C Auto (Bld)Ordered By: Marycarmen Stevens on 11-19-2024 Immature granulocytes/100 WBC (Bld) 0.100 % 0.0-0.[address] [facility] Automated immature granulocyte percentage 0.100 % 0.0-0.[address] [facility] Lymphocytes Auto (Unsp spec) [#/Vol]Ordered By: Marycarmen Stevens on 11-19-2024 Absolute lymphocyte count 3.88 X10^3/uL 0.83-4. [address] [facility] Lymphocytes/100 WBC Auto (Un sp spec)Ordered By: Marycarmen Stevens on 11-19-2024 Automated lymphocyte count as percentage of total leukocytes 53.5 % High 19-[address] [facility] MCV (RBC) [Entitic vol]Order ed By: Marycarmen Stevens on 11-19-2024 MCV (mean corpuscular volume) determination 100.6 fL High 81-[address] [facility] MCV (mean corpuscular volume ) determinationOrdered By: Marycarmen Stevens on 11-19-2024 MCV (RBC) [Entitic vol] 100.6 fL High 81-99 [facility] Mean corpuscular hemoglobin (MCH) determinationOrdered By: Marycarmen Stevens on 11-19-2024 MCH (RBC) [Entitic mass] 32.5 pg High 27.0-32.[address] [facility] Mean corpuscular hemoglobin (MCH) determination 32.5 pg High 27.0-32.[address] [facility] Mean corpuscular hemoglobin concentration (MCHC) determinationOrdered By: Marycarmen Stevens on 11-19-2024 Mean corpuscular hemoglobin concentration (MCHC) determination 32.3 g/dL 32-[address] [facility] Mean platelet volume determi nationOrdered By: Marycarmen Stevens on 11-19-2024 Mean platelet volume determination 9.2 fl 6.2-12.[address] [facility] Monocyte percentageOrdered B y: Marycarmen Stevens on 11-19-2024 Monocytes/100 WBC (Bld) 4.7 % 0-10 [facility] Monocyte percentage 4.7 % 0-10 [facility] Neutrophil percentageOrdered By: Marycarmen Stevens on 11-19-2024 Neutrophils/100 WBC (Bld) 38.3 % Low 47-[address] [facility] Neutrophil percentage 38.3 % Low 47-70 [facility] No Panel InformationOrdered By: Marycarmen Stevens on 11-19-2024 21 U/L <[address] [facility] Nucleated red blood cell per centageOrdered By: Marycarmen Stevens on 11-19-2024 Nucleated red blood cell percentage 0 % 0-[address] [facility] Platelet countOrdered By: Suha Stevens on 11-19-2024 Platelets (Bld) [#/Vol] 294 10*3/uL 150-[address] [facility] Platelet count 294 K/mm3 150-[address] [facility] Potassium (Unsp spec) [Mass/ Vol]Ordered By: Marycarmen Stevens on 11-19-2024 Potassium measurement (mass/volume) 3.6 mmol/L 3.3-5.[address] [facility] Potassium measurement (mass/ volume)Ordered By: Marycarmen Stevens on 11-19-2024 Potassium (Unsp spec) [Mass/Vol] 3.6 mmol/L 3.3-5.[address] [facility] RBC Auto (Bld) [#/Vol]Ordere d By: Marycarmen Stevens on 11-19-2024 RBC (Bld) [#/Vol] 3.60 10*6/uL Low 4.2-5.4 [facility] Automated blood erythrocyte count 3.60 M/mm3 Low 4.2-5.[address] [facility] Serum creatinine measurement (mass/volume)Ordered By: Marycarmen Stevens on 11-19-2024 Creatinine [Mass/Vol] 0.82 mg/dL 0.70-1.20 [facility] Serum globulin measurementOr dered By: Marycarmen Stevens on 11-19-2024 Globulin (S) [Mass/Vol] 2.5 g/dL 2.2-4.2 [facility] Serum globulin measurement 2.5 g/dL 2.2-4.[address] [facility] Serum glucose measurement (m ass/volume)Ordered By: Marycarmen Stevens on 11-19-2024 Glucose [Mass/Vol] 108 mg/dL High 70-99 [facility] Serum or plasma alanine gatica otransferase (ALT) measurementOrdered By: Marycarmen Stevens on 11-19-2024 ALT [Catalytic activity/Vol] 12 U/L <[address] [facility] Serum or plasma albumin sonali urement (mass/volume)Ordered By: Marycarmen Stevens on 11-19-2024 Albumin [Mass/Vol] 4.1 g/dL 3.4-4.8 [facility] Serum or plasma albumin/glob ulin mass ratioOrdered By: Marycarmen Stevens on 11-19-2024 Albumin/Globulin [Mass ratio] 1.6 {ratio} 0.9-2.[address] [facility] Serum or plasma alkaline ike sphatase measurementOrdered By: Marycarmen Stevens on 11-19-2024 ALP [Catalytic activity/Vol] 110 U/L High 35-[address] [facility] Serum or plasma calcium sonali urement (mass/volume)Ordered By: Marycarmen Stevens on 11-19-2024 Calcium [Mass/Vol] 9.2 mg/dL 7.6-11.0 [facility] Serum or plasma urea nitroge n measurement (mass/volume)Ordered By: Marycarmen Stevens on 11-19-2024 Urea nitrogen [Mass/Vol] 18 mg/dL - [facility] Sodium levelOrdered By: Kalin Stevens on 11-19-2024 Sodium [Moles/Vol] 140 mmol/L 133-145 [facility] Sodium level 140 mmol/L 133-[address] [facility] Total proteinOrdered By: Willy Stevens on 11-19-2024 Protein [Mass/Vol] 6.6 g/dL 5.9-8.4 [facility] Total protein 6.6 g/dL 5.9-8.[address] [facility] Urea nitrogen [Mass/Vol]Orde red By: Marycarmen Stevens on 11-19-2024 Serum or plasma urea nitrogen measurement (mass/volume) 18 mg/dL - [facility] White blood cell (WBC) count Ordered By: Marycarmen Stevens on 11-19-2024 WBC (Bld) [#/Vol] 7.3 10*3/uL 4.4-11.0 [facility] White blood cell (WBC) count 7.3 K/mm3 4.4-11.[address] [facility] Gastroenterology Visit Repor ton 10-21-2024 Gastroenterology Visit Report Normal [facility] Basic Metabolic Profile (BMP )on 09-16-2024 BUN/CRE 39.5 RATIO High 10-[address] [facility] Comment on above: Performed By: #### L 506.0400, L500.2500, L501.9520, L500.4100, L501.49057 ####[facility] [address] [place], [address] CA,Total 9.1 mg/dL Normal 8.5-10.[address] [facility] Comment on above: Performed By: #### L 506.0400, L500.2500, L501.9520, L500.4100, L501.69263 ####[facility] [address] [place], [address] Chloride [Moles/Vol] 108 mmol/L High 98-107 [facility] Comment on above: Performed By: #### L 506.0400, L500.2500, L501.9520, L500.4100, L501.07045 ####[facility] [address] [place], [address] CO2 [Moles/Vol] 25.0 mmol/L Normal 21.0-32.[address] [facility] Comment on above: Performed By: #### L 506.0400, L500.2500, L501.9520, L500.4100, L501.82800 ####[facility] [address] [place], [address] Creatinine [Mass/Vol] 0.66 mg/dL Normal 0.55-1.02 [facility] Comment on above: Result Comment: The validity of the calculated GFR GFRAA in patients over70 years has not been determined. Clinical correlation isessential. Performed By: #### L 506.0400, L500.2500, L501.9520, L500.4100, L501.44978 ####[facility] [address] [place], [address] EST GFR - AA 114 mL/min Normal >[address] [facility] Comment on above: Result Comment: Afri can Icelandic GFR Calc Performed By: #### L 506.0400, L500.2500, L501.9520, L500.4100, L501.76340 ####[facility] [address] [place], [address] GAP 7 Normal 5-[address] [facility] Comment on above: Performed By: #### L 506.0400, L500.2500, L501.9520, L500.4100, L501.44551 ####[facility] [address] [place], [address] GFR/1.73 sq M.predicted among non-blacks MDRD (S/P/Bld) [Vol rate/Area] 94 mL/min/{1.73_m2} Normal >60 [facility] Comment on above: Result Comment: Non- GFR Calc Performed By: #### L 506.0400, L500.2500, L501.9520, L500.4100, L501.10967 ####[facility] [address] [place], [address] Glucose [Mass/Vol] 90 mg/dL Normal 74-106 [facility] Comment on above: Performed By: #### L 506.0400, L500.2500, L501.9520, L500.4100, L501.36641 ####[facility] [address] [place], [address] Potassium [Moles/Vol] 3.6 mmol/L Normal 3.5-5.1 [facility] Comment on above: Performed By: #### L 506.0400, L500.2500, L501.9520, L500.4100, L501.87953 ####[facility] [address] [place], [address] Sodium [Moles/Vol] 140 mmol/L Normal 136-145 [facility] Comment on above: Performed By: #### L 506.0400, L500.2500, L501.9520, L500.4100, L501.34621 ####[facility] [address] [place], [address] Urea nitrogen [Mass/Vol] 26 mg/dL High 7-[address] [facility] Comment on above: Performed By: #### L 506.0400, L500.2500, L501.9520, L500.4100, L501.34710 ####[facility] [address] [place], [address] Blood urea nitrogen (BUN)/cr eatinine ratioOrdered By: Gamaliel Whitehead on 09-16-2024 Blood urea nitrogen (BUN)/creatinine ratio 39.5 RATIO High 10-[address] [facility] Calcium [Mass/Vol]Ordered By : Gamaliel Whitehead on 09-16-2024 Serum or plasma calcium measurement (mass/volume) 9.1 mg/dL 8.5-10.1 [facility] Carbon dioxide measurementOr dered By: Gamaliel Whitehead on 09-16-2024 CO2 [Moles/Vol] 25.0 mmol/L 21.0-32.[address] [facility] Carbon dioxide measurement 25.0 mmol/L 21.0-32.[address] [facility] Chloride measurementOrdered By: Gamaliel Whitehead on 09-16-2024 Chloride [Moles/Vol] 108 mmol/L High 98-107 [facility] Chloride measurement 108 mmol/L High 98-107 [facility] Cholesterol [Mass/Vol]Ordere d By: Gamaliel Whitehead on 09-16-2024 Serum or plasma cholesterol measurement (mass/volume) 195 mg/dL <[address] [facility] Creatinine [Mass/Vol]Ordered By: Gamaliel Whitehead on 09-16-2024 Serum or plasma creatinine measurement (mass/volume) 0.66 mg/dL 0.55-1.[address] [facility] Direct serum free thyroxine (FT4) measurementOrdered By: Gamaliel Whitehead on 09-16-2024 Direct serum free thyroxine (FT4) measurement 0.83 ng/dL 0.76-1.[address] [facility] Estimated glomerular filtrat ion rate (GFR) AmericanOrdered By: Gamaliel Whitehead on 09-16-2024 Estimated glomerular filtration rate (GFR) 114 mL/min >[address] [facility] Free T3on 09-16-2024 Free T3 [Mass/Vol] 2.0 pg/mL Low 2.18-3.98 [facility] Comment on above: Performed By: #### L 506.0400, L500.2500, L501.9520, L500.4100, L501.07127 ####[facility] [address] [place], [place], [address] Free F8Sylietc By: Gamaliel romano on 09-16-2024 Free T3 [Mass/Vol] 2.0 pg/mL Low 2.18-3.98 [facility] Free T3 2.0 pg/mL Low 2.18-3.[address] [facility] Glomerular filtration rate ( GFR) estimationOrdered By: Gamaliel Whitehead on 09-16-2024 GFR/1.73 sq M.predicted among non-blacks MDRD (S/P/Bld) [Vol rate/Area] 94 mL/min/{1.73_m2} >60 [facility] Glomerular filtration rate (GFR) estimation 94 mL/min >[address] [facility] Glucose measurementOrdered B y: Gamaliel Whitehead on 09-16-2024 Glucose [Mass/Vol] 90 mg/dL 74-106 [facility] Glucose measurement 90 mg/dL 74-106 [facility] High density lipoprotein (HD L) measurementOrdered By: Gamaliel Whitehead on 09-16-2024 High density lipoprotein (HDL) measurement 81 mg/dL >[address] [facility] High density lipoprotein (HDL) measurement 81 mg/dL >[address] [facility] Lipid Profileon 09-16-2024 Cholesterol [Mass/Vol] 195 mg/dL Normal 200 [facility] Comment on above: Result Comment: <200 mg/dL Desirable 200-240 mg/dL Borderline >240 mg/dL High Risk Performed By: #### L 506.0400, L500.2500, L501.9520, L500.4100, L501.95882 ####[facility] [address] [place], [address] Cholesterol in HDL [Mass/Vol] 81 mg/dL Normal [facility] Comment on above: Result Comment: The drugs N-Acetylcysteine and Metamizole may falselydepress this assay. Reference Range HDL <40 mg/dL Low HDL Cholesterol HDL >or= 60 mg/dL High HDL Cholesterol Performed By: #### L 506.0400, L500.2500, L501.9520, L500.4100, L501.13429 ####[facility] [address] [place], [address] Cholesterol in LDL [Mass/Vol] 102 mg/dL Normal 0-[address] [facility] Comment on above: Performed By: #### L 506.0400, L500.2500, L501.9520, L500.4100, L501.08492 ####[facility] [address] [place], [address] Cholesterol in VLDL [Mass/Vol] 12 mg/dL Normal 5-[address] [facility] Comment on above: Performed By: #### L 506.0400, L500.2500, L501.9520, L500.4100, L501.67355 ####[facility] [address] [place], [address] Triglyceride [Mass/Vol] 60 mg/dL Normal [facility] Comment on above: Result Comment: The drugs N-Acetylcysteine and Metamizole may falselydepress this assay.Serum Triglycerides Reference Interval Normal <150 mg/dL Borderline high 150 - 199 mg/dL High 200 - 499 mg/dL Very High > or = 500 mg/dL Performed By: #### L 506.0400, L500.2500, L501.9520, L500.4100, L501.74860 ####[facility] [address] [place], [address] Low density lipoprotein (LDL ) cholesterol measurementOrdered By: Gamaliel Whitehead on 09-16-2024 Low density lipoprotein (LDL) cholesterol measurement 102 mg/dL 0-[address] [facility] Low density lipoprotein (LDL) cholesterol measurement 102 mg/dL 0-[address] [facility] Potassium measurementOrdered By: Gamaliel Whitehead on 09-16-2024 Potassium [Moles/Vol] 3.6 mmol/L 3.5-5.1 [facility] Potassium measurement 3.6 mmol/L 3.5-5.1 [facility] Serum anion gap measurementO rdered By: Gamaliel Whitehead on 09-16-2024 Serum anion gap measurement 7 5-[address] [facility] Serum or plasma calcium sonali urement (mass/volume)Ordered By: Gamaliel Whitehead on 09-16-2024 Calcium [Mass/Vol] 9.1 mg/dL 8.5-10.1 [facility] Serum or plasma cholesterol measurement (mass/volume)Ordered By: Gamaliel Whitehead on 09-16-2024 Cholesterol [Mass/Vol] 195 mg/dL <200 [facility] Serum or plasma creatinine m easurement (mass/volume)Ordered By: Gamaliel Whitehead on 09-16-2024 Creatinine [Mass/Vol] 0.66 mg/dL 0.55-1.02 [facility] Serum or plasma thyroid stim ulating hormone (TSH) measurement (units/volume)Ordered By: Gamaliel Whitehead on 09-16-2024 TSH Qn 3.680 uIU/mL 0.358-3.[address] [facility] Serum or plasma urea nitroge n measurement (mass/volume)Ordered By: Gamaliel Whitehead on 09-16-2024 Urea nitrogen [Mass/Vol] 26 mg/dL High 7-[address] [facility] Sodium levelOrdered By: Gamaliel Whitehead on 09-16-2024 Sodium [Moles/Vol] 140 mmol/L 136-145 [facility] Sodium level 140 mmol/L 136-[address] [facility] T4 Free Directon 09-16-2024 T4 FREE DIRECT 0.83 ng/dL Normal 0.76-1.[address] [facility] Comment on above: Performed By: #### L 506.0400, L500.2500, L501.9520, L500.4100, L501.21304 ####[facility] [address] [place], [address] TSH QnOrdered By: Gamaliel rao on 09-16-2024 Serum or plasma thyroid stimulating hormone (TSH) measurement (units/volume) 3.680 uIU/mL 0.358-3.[address] [facility] Thyroid Stim Hormone (TSH)on 09-16-2024 TSH 3.680 uIU/mL Normal 0.358-3.[address] [facility] Comment on above: Performed By: #### L 506.0400, L500.2500, L501.9520, L500.4100, L501.73627 ####[facility] [address] [place], [address] Triglycerides measurementOrd ered By: Gamaliel Whitehead on 09-16-2024 Triglycerides measurement 60 mg/dL <[address] [facility] Urea nitrogen [Mass/Vol]Orde red By: Gamaliel Whitehead on 09-16-2024 Serum or plasma urea nitrogen measurement (mass/volume) 26 mg/dL High 7-[address] [facility] Very low density lipoprotein (VLDL) cholesterol measurementOrdered By: Gamaliel Whitehead on 09-16-2024 Very low density lipoprotein (VLDL) cholesterol measurement 12 mg/dL 5-[address] [facility] Very low density lipoprotein (VLDL) cholesterol measurement 12 mg/dL 5-[address] [facility] Bedside Glucoseon 08-12-2024 FINGERSTICK GLU 101 mg/dL Normal 74-[address] [facility] Comment on above: Result Comment: CHLOE JUAN OF PATIENT CARE PER NURSING PROTOCOL Performed By: #### L 501.080 ####[facility] [address] [place], [place], [address] Glucose measurement at bedsi deOrdered By: Shlomo Gions on 08-12-2024 Glucose measurement at bedside 101 mg/dL 74-[address] [facility] Absolute neutrophil countOrd ered By: Shlomo Goins on 08-11-2024 Absolute neutrophil count 3.9 X10^3/uL 2.0-7.[address] [facility] Basic Metabolic Profile (BMP )on 08-11-2024 BUN/CRE 27.3 RATIO High 10-[address] [facility] Comment on above: Performed By: #### L 500.2500, L100.0100 ####[facility] [address] [place], [address] CA,Total 9.3 mg/dL Normal 8.5-10.[address] [facility] Comment on above: Performed By: #### L 500.2500, L100.0100 ####[facility] [address] [place], [address] Chloride [Moles/Vol] 103 mmol/L Normal 98-107 [facility] Comment on above: Performed By: #### L 500.2500, L100.0100 ####[facility] [address] [place], [address] CO2 [Moles/Vol] 26.0 mmol/L Normal 21.0-32.[address] [facility] Comment on above: Performed By: #### L 500.2500, L100.0100 ####[facility] [address] [place], [address] Creatinine [Mass/Vol] 0.77 mg/dL Normal 0.55-1.02 [facility] Comment on above: Result Comment: The validity of the calculated GFR GFRAA in patients over70 years has not been determined. Clinical correlation isessential. Performed By: #### L 500.2500, L100.0100 ####[facility] [address] [place], [address] ECRCL 75.71 ml/min Normal [facility] Comment on above: Performed By: #### L 500.2500, L100.0100 ####[facility] [address] [place], [address] EST GFR - AA 95 mL/min Normal >[address] [facility] Comment on above: Result Comment: Afri can Icelandic GFR Calc Performed By: #### L 500.2500, L100.0100 ####[facility] [address] [place], [address] GAP 7 Normal 5-[address] [facility] Comment on above: Performed By: #### L 500.2500, L100.0100 ####[facility] [address] [place], [address] GFR/1.73 sq M.predicted among non-blacks MDRD (S/P/Bld) [Vol rate/Area] 79 mL/min/{1.73_m2} Normal >60 [facility] Comment on above: Result Comment: Non- GFR Calc Performed By: #### L 500.2500, L100.0100 ####[facility] [address] [place], [address] Glucose [Mass/Vol] 119 mg/dL High 74-106 [facility] Comment on above: Result Comment: Fast ing Glucose result from 100 to 125 mg/dLsuggests IMPAIRED HOMEOSTASIS per A.D.A. criteria. Performed By: #### L 500.2500, L100.0100 ####[facility] [address] [place], [address] Potassium [Moles/Vol] 3.4 mmol/L Low 3.5-5.1 [facility] Comment on above: Performed By: #### L 500.2500, L100.0100 ####[facility] [address] [place], [address] Sodium [Moles/Vol] 137 mmol/L Normal 136-145 [facility] Comment on above: Performed By: #### L 500.2500, L100.0100 ####[facility] [address] [place], [address] Urea nitrogen [Mass/Vol] 21 mg/dL High 7-[address] [facility] Comment on above: Performed By: #### L 500.2500, L100.0100 ####[facility] [address] [place], [address] Basophil percentageOrdered B y: Shlomo Buster on 08-11-2024 Basophil percentage 0.9 % 0-1 [facility] Bedside Glucoseon 08-11-2024 FINGERSTICK GLU 93 mg/dL Normal 74-[address] [facility] Comment on above: Result Comment: CHLOE GEMENT OF PATIENT CARE PER NURSING PROTOCOL Performed By: #### L 501.080 ####[facility] [address] [place], [address] FINGERSTICK GLU 111 mg/dL High 74-[address] [facility] Comment on above: Result Comment: CHLOE GEMENT OF PATIENT CARE PER NURSING PROTOCOL Performed By: #### L 501.080 ####[facility] [address] [place], [address] FINGERSTICK GLU 112 mg/dL High 74-[address] [facility] Comment on above: Result Comment: CHLOE GEMENT OF PATIENT CARE PER NURSING PROTOCOL Performed By: #### L 501.080 ####[facility] [address] [place], [address] Blood urea nitrogen (BUN)/cr eatinine ratioOrdered By: Shlomo Goins on 08-11-2024 Blood urea nitrogen (BUN)/creatinine ratio 27.3 RATIO High 10-[address] [facility] CBC W/Diff, Automatedon Absolute Lymph 3.97 X10 3/uL Normal 0.83-4.[address] [facility] Comment on above: Performed By: #### L 500.2500, L100.0100 ####[facility] [address] [place], [address] Absolute Neut 3.9 X10 3/uL Normal 2.0-7.[address] [facility] Comment on above: Performed By: #### L 500.2500, L100.0100 ####[facility] [address] [place], [address] Basophils/100 WBC (Bld) 0.9 % Normal 0-1 [facility] Comment on above: Performed By: #### L 500.2500, L100.0100 ####[facility] [address] [place], [address] Eosinophils/100 WBC (Bld) 2.6 % Normal 0-[address] [facility] Comment on above: Performed By: #### L 500.2500, L100.0100 ####[facility] [address] [place], [address] Erythrocyte distribution width (RBC) [Ratio] 12.8 % Normal 11.6-14.[address] [facility] Comment on above: Performed By: #### L 500.2500, L100.0100 ####[facility] [address] [place], [address] Hematocrit (Bld) [Volume fraction] 37.5 % Normal 37-[address] [facility] Comment on above: Performed By: #### L 500.2500, L100.0100 ####[facility] [address] [place], [address] Hemoglobin (Bld) [Mass/Vol] 12.1 g/dL Normal 12.0-15.[address] [facility] Comment on above: Performed By: #### L 500.2500, L100.0100 ####[facility] [address] [place], [address] IG% 0.700 Normal 0.0-0.[address] [facility] Comment on above: Result Comment: IG% - Immature Granulocytes (promyelocytes, myelocytes andmetamyelocytes) > 1% indicates that a LEFT SHIFT is Present. Performed By: #### L 500.2500, L100.0100 ####[facility] [address] [place], [address] Lymphocytes/100 WBC (Bld) 44.5 % High 19-[address] [facility] Comment on above: Performed By: #### L 500.2500, L100.0100 ####[facility] [address] [place], [address] MCH (RBC) [Entitic mass] 31.7 pg Normal 27.0-32.[address] [facility] Comment on above: Performed By: #### L 500.2500, L100.0100 ####[facility] [address] [place], [address] MCHC (RBC) [Mass/Vol] 32.3 g/dL Normal 32-36 [facility] Comment on above: Performed By: #### L 500.2500, L100.0100 ####[facility] [address] [place], [address] MCV (RBC) [Entitic vol] 98.2 fL Normal 81-99 [facility] Comment on above: Performed By: #### L 500.2500, L100.0100 ####[facility] [address] [place], [address] Monocytes/100 WBC (Bld) 8.0 % Normal 0-10 [facility] Comment on above: Performed By: #### L 500.2500, L100.0100 ####[facility] [address] [place], [address] Neutrophils/100 WBC (Bld) 43.3 % Low 47-[address] [facility] Comment on above: Performed By: #### L 500.2500, L100.0100 ####[facility] [address] [place], [address] Nucleated RBC (Bld) [#/Vol] 0 10*3/uL Normal 0-[address] [facility] Comment on above: Performed By: #### L 500.2500, L100.0100 ####[facility] [address] [place], [address] Platelet mean volume (Bld) [Entitic vol] 8.9 fL Normal 6.2-12.[address] [facility] Comment on above: Performed By: #### L 500.2500, L100.0100 ####[facility] [address] [place], [address] Platelets (Bld) [#/Vol] 313 10*3/uL Normal 150-[address] [facility] Comment on above: Performed By: #### L 500.2500, L100.0100 ####[facility] [address] [place], [address] RBC (Bld) [#/Vol] 3.82 10*6/uL Low 4.2-5.4 [facility] Comment on above: Performed By: #### L 500.2500, L100.0100 ####[facility] [address] [place], [address] RDW SD 46.0 fl High 35.1-43.[address] [facility] Comment on above: Performed By: #### L 500.2500, L100.0100 ####[facility] [address] [place], [address] WBC (Bld) [#/Vol] 8.9 10*3/uL Normal 4.4-11.0 [facility] Comment on above: Performed By: #### L 500.2500, L100.0100 ####[facility] [address] [place], [address] Calcium [Mass/Vol]Ordered By : Shlomo Goins on 08-11-2024 Serum or plasma calcium measurement (mass/volume) 9.3 mg/dL 8.5-10.1 [facility] Carbon dioxide measurementOr dered By: Shlomo Goins on 08-11-2024 Carbon dioxide measurement 26.0 mmol/L 21.0-32.[address] [facility] Chloride measurementOrdered By: Shlomo Goins on 08-11-2024 Chloride measurement 103 mmol/L 98-107 [facility] Creatinine [Mass/Vol]Ordered By: Shlomo Goins on 08-11-2024 Serum or plasma creatinine measurement (mass/volume) 0.77 mg/dL 0.55-1.[address] [facility] Eosinophil percentageOrdered By: Shlomo Goins on 08-11-2024 Eosinophil percentage 2.6 % 0-5 [facility] Erythrocyte distribution wid th (RBC) [Ratio]Ordered By: Shlomo Goins on 08-11-2024 Erythrocyte distribution width ratio 12.8 % 11.6-14.[address] [facility] Erythrocyte distribution width standard deviation 46.0 fl High 35.1-43.[address] [facility] Estimated glomerular filtrat ion rate (GFR) AmericanOrdered By: Shlomo Goins on 08-11-2024 Estimated glomerular filtration rate (GFR) 95 mL/min >[address] [facility] Estimation of creatinine fish aranceOrdered By: Shlomo Goins on 08-11-2024 Estimation of creatinine clearance 75.71 ml/min [facility] Glomerular filtration rate ( GFR) estimationOrdered By: Shlomo Goins on 08-11-2024 Glomerular filtration rate (GFR) estimation 79 mL/min >[address] [facility] Glucose measurementOrdered B y: Shlomo Goins on 08-11-2024 Glucose measurement 119 mg/dL High 74-106 [facility] Hematocrit Auto (Bld) [Volum e fraction]Ordered By: Shlomo Goins on 08-11-2024 Automated blood hematocrit (percentage) 37.5 % 37-[address] [facility] Hemoglobin measurementOrdere d By: Shlomo Goins on 08-11-2024 Hemoglobin measurement 12.1 g/dL 12.0-15.0 [facility] Immature granulocytes/100 WB C Auto (Bld)Ordered By: Shlomo Goins on 08-11-2024 Automated immature granulocyte percentage 0.700 % 0.0-0.[address] [facility] Lymphocytes Auto (Unsp spec) [#/Vol]Ordered By: Shlomo Goins on 08-11-2024 Absolute lymphocyte count 3.97 X10^3/uL 0.83-4. [address] [facility] Lymphocytes/100 WBC Auto (Un sp spec)Ordered By: Shlomo Goins on 08-11-2024 Automated lymphocyte count as percentage of total leukocytes 44.5 % High 19-[address] [facility] MCV (RBC) [Entitic vol]Order ed By: Shlomo Goins on 08-11-2024 MCV (mean corpuscular volume) determination 98.2 fL 81-[address] [facility] Mean corpuscular hemoglobin (MCH) determinationOrdered By: Shlomo Goins on 08-11-2024 Mean corpuscular hemoglobin (MCH) determination 31.7 pg 27.0-32.[address] [facility] Mean corpuscular hemoglobin concentration (MCHC) determinationOrdered By: Shlomo Goins on 08-11-2024 Mean corpuscular hemoglobin concentration (MCHC) determination 32.3 g/dL 32-[address] [facility] Mean platelet volume determi nationOrdered By: Shlomo Goins on 08-11-2024 Mean platelet volume determination 8.9 fl 6.2-12.[address] [facility] Monocyte percentageOrdered B y: Shlomo Goins on 08-11-2024 Monocyte percentage 8.0 % 0-10 [facility] Neutrophil percentageOrdered By: Shlomo Goins on 08-11-2024 Neutrophil percentage 43.3 % Low 47-70 [facility] Nucleated red blood cell per centageOrdered By: Shlomo Goins on 08-11-2024 Nucleated red blood cell percentage 0 % 0-[address] [facility] Platelet countOrdered By: Lelo Goins on 08-11-2024 Platelet count 313 K/mm3 150-[address] [facility] Potassium measurementOrdered By: Shlomo Goins on 08-11-2024 Potassium measurement 3.4 mmol/L Low 3.5-5.1 [facility] RBC Auto (Bld) [#/Vol]Ordere d By: Shlomo Goins on 08-11-2024 Automated blood erythrocyte count 3.82 M/mm3 Low 4.2-5.[address] [facility] Serum anion gap measurementO rdered By: Shlomo Goins on 08-11-2024 Serum anion gap measurement 7 5-[address] [facility] Sodium levelOrdered By: Diego Goins on 08-11-2024 Sodium level 137 mmol/L 136-[address] [facility] Urea nitrogen [Mass/Vol]Orde red By: Shlomo Goins on 08-11-2024 Serum or plasma urea nitrogen measurement (mass/volume) 21 mg/dL High 7-[address] [facility] White blood cell (WBC) count Ordered By: Shlomo Goins on 08-11-2024 White blood cell (WBC) count 8.9 K/mm3 4.4-11.[address] [facility] Basic Metabolic Profile (BMP )on 08-10-2024 BUN/CRE 22.4 RATIO High 10-[address] [facility] Comment on above: Performed By: #### L 100.0100, L500.2500 ####[facility] [address] [place], [address] CA,Total 9.1 mg/dL Normal 8.5-10.[address] [facility] Comment on above: Performed By: #### L 100.0100, L500.2500 ####[facility] [address] [place], [address] Chloride [Moles/Vol] 102 mmol/L Normal 98-107 [facility] Comment on above: Performed By: #### L 100.0100, L500.2500 ####[facility] [address] [place], [address] CO2 [Moles/Vol] 28.0 mmol/L Normal 21.0-32.[address] [facility] Comment on above: Performed By: #### L 100.0100, L500.2500 ####[facility] [address] [place], [address] Creatinine [Mass/Vol] 0.72 mg/dL Normal 0.55-1.02 [facility] Comment on above: Result Comment: The validity of the calculated GFR GFRAA in patients over70 years has not been determined. Clinical correlation isessential. Performed By: #### L 100.0100, L500.2500 ####[facility] [address] [place], [address] ECRCL 76.22 ml/min Normal [facility] Comment on above: Performed By: #### L 100.0100, L500.2500 ####[facility] [address] [place], [address] EST GFR - AA 103 mL/min Normal >[address] [facility] Comment on above: Result Comment: Afri can Icelandic GFR Calc Performed By: #### L 100.0100, L500.2500 ####[facility] [address] [place], [address] GAP 6 Normal 5-[address] [facility] Comment on above: Performed By: #### L 100.0100, L500.2500 ####[facility] [address] [place], [address] GFR/1.73 sq M.predicted among non-blacks MDRD (S/P/Bld) [Vol rate/Area] 85 mL/min/{1.73_m2} Normal >60 [facility] Comment on above: Result Comment: Non- GFR Calc Performed By: #### L 100.0100, L500.2500 ####[facility] [address] [place], [address] Glucose [Mass/Vol] 138 mg/dL High 74-106 [facility] Comment on above: Result Comment: Fast ing Glucose result greater than or equal to 126 mg/dLsuggests DIABETES MELLITUS per A.D.A. criteria. Performed By: #### L 100.0100, L500.2500 ####[facility] [address] [place], [address] Potassium [Moles/Vol] 3.7 mmol/L Normal 3.5-5.1 [facility] Comment on above: Performed By: #### L 100.0100, L500.2500 ####[facility] [address] [place], [address] Sodium [Moles/Vol] 136 mmol/L Normal 136-145 [facility] Comment on above: Performed By: #### L 100.0100, L500.2500 ####[facility] [address] [place], [address] Urea nitrogen [Mass/Vol] 16 mg/dL Normal 7-[address] [facility] Comment on above: Performed By: #### L 100.0100, L500.2500 ####[facility] [address] [place], [address] Bedside Glucoseon 08-10-2024 FINGERSTICK GLU 124 mg/dL High 74-[address] [facility] Comment on above: Result Comment: CHLOE GEMENT OF PATIENT CARE PER NURSING PROTOCOL Performed By: #### L 501.080 ####[facility] [address] [place], [address] FINGERSTICK GLU 115 mg/dL High 74-[address] [facility] Comment on above: Result Comment: CHLOE GEMENT OF PATIENT CARE PER NURSING PROTOCOL Performed By: #### L 501.080 ####[facility] [address] [place], [address] FINGERSTICK GLU 128 mg/dL High 74-[address] [facility] Comment on above: Result Comment: CHLOE GEMENT OF PATIENT CARE PER NURSING PROTOCOL Performed By: #### L 501.080 ####[facility] [address] [place], [address] CBC W/Diff, Automatedon 12-3 Absolute Lymph 3.30 X10 3/uL Normal 0.83-4.[address] [facility] Comment on above: Performed By: #### L 100.0100, L500.2500 ####[facility] [address] [place], [address] Absolute Neut 6.1 X10 3/uL Normal 2.0-7.[address] [facility] Comment on above: Performed By: #### L 100.0100, L500.2500 ####[facility] [address] [place], [address] Basophils/100 WBC (Bld) 0.5 % Normal 0-1 [facility] Comment on above: Performed By: #### L 100.0100, L500.2500 ####[facility] [address] [place], [address] Eosinophils/100 WBC (Bld) 2.1 % Normal 0-[address] [facility] Comment on above: Performed By: #### L 100.0100, L500.2500 ####[facility] [address] [place], [address] Erythrocyte distribution width (RBC) [Ratio] 12.7 % Normal 11.6-14.[address] [facility] Comment on above: Performed By: #### L 100.0100, L500.2500 ####[facility] [address] [place], [address] Hematocrit (Bld) [Volume fraction] 36.8 % Low 37-[address] [facility] Comment on above: Performed By: #### L 100.0100, L500.2500 ####[facility] [address] [place], [address] Hemoglobin (Bld) [Mass/Vol] 11.6 g/dL Low 12.0-15.[address] [facility] Comment on above: Performed By: #### L 100.0100, L500.2500 ####[facility] [address] [place], [address] IG% 0.700 Normal 0.0-0.[address] [facility] Comment on above: Result Comment: IG% - Immature Granulocytes (promyelocytes, myelocytes andmetamyelocytes) > 1% indicates that a LEFT SHIFT is Present. Performed By: #### L 100.0100, L500.2500 ####[facility] [address] [place], [address] Lymphocytes/100 WBC (Bld) 31.5 % Normal 19-[address] [facility] Comment on above: Performed By: #### L 100.0100, L500.2500 ####[facility] [address] [place], [address] MCH (RBC) [Entitic mass] 31.0 pg Normal 27.0-32.[address] [facility] Comment on above: Performed By: #### L 100.0100, L500.2500 ####[facility] [address] [place], [address] MCHC (RBC) [Mass/Vol] 31.5 g/dL Low 32-36 [facility] Comment on above: Performed By: #### L 100.0100, L500.2500 ####[facility] [address] [place], [address] MCV (RBC) [Entitic vol] 98.4 fL Normal 81-99 [facility] Comment on above: Performed By: #### L 100.0100, L500.2500 ####[facility] [address] [place], [address] Monocytes/100 WBC (Bld) 7.3 % Normal 0-10 [facility] Comment on above: Performed By: #### L 100.0100, L500.2500 ####[facility] [address] [place], [address] Neutrophils/100 WBC (Bld) 57.9 % Normal 47-[address] [facility] Comment on above: Performed By: #### L 100.0100, L500.2500 ####[facility] [address] [place], [address] Nucleated RBC (Bld) [#/Vol] 0 10*3/uL Normal 0-[address] [facility] Comment on above: Performed By: #### L 100.0100, L500.2500 ####[facility] [address] [place], [address] Platelet mean volume (Bld) [Entitic vol] 8.8 fL Normal 6.2-12.[address] [facility] Comment on above: Performed By: #### L 100.0100, L500.2500 ####[facility] [address] [place], [address] Platelets (Bld) [#/Vol] 322 10*3/uL Normal 150-[address] [facility] Comment on above: Performed By: #### L 100.0100, L500.2500 ####[facility] [address] [place], [address] RBC (Bld) [#/Vol] 3.74 10*6/uL Low 4.2-5.4 [facility] Comment on above: Performed By: #### L 100.0100, L500.2500 ####[facility] [address] [place], [address] RDW SD 45.7 fl High 35.1-43.[address] [facility] Comment on above: Performed By: #### L 100.0100, L500.2500 ####[facility] [address] [place], [address] WBC (Bld) [#/Vol] 10.5 10*3/uL Normal 4.4-11.0 [facility] Comment on above: Performed By: #### L 100.0100, L500.2500 ####[facility] [address] [place], [place], [id number] ALP [Catalytic activity/Vol] Ordered By: [place] Sarah on 08-09-2024 Serum or plasma alkaline phosphatase measurement 108 U/L 45-[address] [facility] ALT [Catalytic activity/Vol] Ordered By: [place] Sarah on 08-09-2024 Serum or plasma alanine aminotransferase (ALT) measurement 21 U/L 13-[address] [facility] Albumin [Mass/Vol]Ordered By : [place] Sarah on 08-09-2024 Serum or plasma albumin measurement (mass/volume) 3.5 g/dL 3.2-5.0 [facility] Albumin to globulin ratioOrd ered By: [facility] on 08-09-2024 Albumin to globulin ratio 1.0 RATIO 0.9-2.[address] [facility] Bedside Glucoseon 08-09-2024 FINGERSTICK GLU 134 mg/dL High 74-[address] [facility] Comment on above: Result Comment: CHLOE GEMENT OF PATIENT CARE PER NURSING PROTOCOL Performed By: #### L 501.080 ####[facility] [address] [place], [address] FINGERSTICK GLU 195 mg/dL High 74-[address] [facility] Comment on above: Result Comment: CHLOE GEMENT OF PATIENT CARE PER NURSING PROTOCOL Performed By: #### L 501.080 ####[facility] [address] [place], [address] Bilirubin, totalOrdered By: Valeria Sarah on 08-09-2024 Bilirubin, total 0.40 mg/dL 0.20-1.[address] [facility] CBC W/Diff, Automatedon 07-13 Absolute Lymph 2.88 X10 3/uL Normal 0.83-4.[address] [facility] Comment on above: Performed By: #### L 100.0100, L500.4050 ####[facility] [address] [place], [address] Absolute Neut 4.3 X10 3/uL Normal 2.0-7.[address] [facility] Comment on above: Performed By: #### L 100.0100, L500.4050 ####[facility] [address] [place], [address] Basophils/100 WBC (Bld) 0.6 % Normal 0-1 [facility] Comment on above: Performed By: #### L 100.0100, L500.4050 ####[facility] [address] [place], [address] Eosinophils/100 WBC (Bld) 2.0 % Normal 0-[address] [facility] Comment on above: Performed By: #### L 100.0100, L500.4050 ####[facility] [address] [place], [address] Erythrocyte distribution width (RBC) [Ratio] 12.8 % Normal 11.6-14.[address] [facility] Comment on above: Performed By: #### L 100.0100, L500.4050 ####[facility] [address] [place], [address] Hematocrit (Bld) [Volume fraction] 38.0 % Normal 37-[address] [facility] Comment on above: Performed By: #### L 100.0100, L500.4050 ####[facility] [address] [place], [address] Hemoglobin (Bld) [Mass/Vol] 11.8 g/dL Low 12.0-15.[address] [facility] Comment on above: Performed By: #### L 100.0100, L500.4050 ####[facility] [address] [place], [address] IG% 0.500 Normal 0.0-0.[address] [facility] Comment on above: Result Comment: IG% - Immature Granulocytes (promyelocytes, myelocytes andmetamyelocytes) > 1% indicates that a LEFT SHIFT is Present. Performed By: #### L 100.0100, L500.4050 ####[facility] [address] [place], [address] Lymphocytes/100 WBC (Bld) 35.5 % Normal 19-[address] [facility] Comment on above: Performed By: #### L 100.0100, L500.4050 ####[facility] [address] [place], [address] MCH (RBC) [Entitic mass] 31.0 pg Normal 27.0-32.[address] [facility] Comment on above: Performed By: #### L 100.0100, L500.4050 ####[facility] [address] [place], [address] MCHC (RBC) [Mass/Vol] 31.1 g/dL Low 32-36 [facility] Comment on above: Performed By: #### L 100.0100, L500.4050 ####[facility] [address] [place], [address] MCV (RBC) [Entitic vol] 99.7 fL High 81-99 [facility] Comment on above: Performed By: #### L 100.0100, L500.4050 ####[facility] [address] [place], [address] Monocytes/100 WBC (Bld) 8.9 % Normal 0-10 [facility] Comment on above: Performed By: #### L 100.0100, L500.4050 ####[facility] [address] [place], [address] Neutrophils/100 WBC (Bld) 52.5 % Normal 47-[address] [facility] Comment on above: Performed By: #### L 100.0100, L500.4050 ####[facility] [address] [place], [address] Nucleated RBC (Bld) [#/Vol] 0 10*3/uL Normal 0-[address] [facility] Comment on above: Performed By: #### L 100.0100, L500.4050 ####[facility] [address] [place], [address] Platelet mean volume (Bld) [Entitic vol] 9.0 fL Normal 6.2-12.[address] [facility] Comment on above: Performed By: #### L 100.0100, L500.4050 ####[facility] [address] [place], [address] Platelets (Bld) [#/Vol] 299 10*3/uL Normal 150-[address] [facility] Comment on above: Performed By: #### L 100.0100, L500.4050 ####[facility] [address] [place], [address] RBC (Bld) [#/Vol] 3.81 10*6/uL Low 4.2-5.4 [facility] Comment on above: Performed By: #### L 100.0100, L500.4050 ####[facility] [address] [place], [address] RDW SD 47.1 fl High 35.1-43.[address] [facility] Comment on above: Performed By: #### L 100.0100, L500.4050 ####[facility] [address] [place], [address] WBC (Bld) [#/Vol] 8.1 10*3/uL Normal 4.4-11.0 [facility] Comment on above: Performed By: #### L 100.0100, L500.4050 ####[facility] [address] [place], [address] Comprehensive Metabolic Prof ilon 08-09-2024 Albumin [Mass/Vol] 3.5 g/dL Normal 3.2-5.0 [facility] Comment on above: Performed By: #### L 100.0100, L500.4050 ####[facility] [address] [place], [address] Albumin/Globulin [Mass ratio] 1.0 {ratio} Normal 0.9-2.[address] [facility] Comment on above: Performed By: #### L 100.0100, L500.4050 ####[facility] [address] [place], [address] ALK P 108 U/L Normal 45-[address] [facility] Comment on above: Performed By: #### L 100.0100, L500.4050 ####[facility] [address] [place], [address] ALT [Catalytic activity/Vol] 21 U/L Normal 13-[address] [facility] Comment on above: Performed By: #### L 100.0100, L500.4050 ####[facility] [address] [place], [address] AST [Catalytic activity/Vol] 19 U/L Normal 15-[address] [facility] Comment on above: Performed By: #### L 100.0100, L500.4050 ####[facility] [address] [place], [address] Bilirubin [Mass/Vol] 0.40 mg/dL Normal 0.20-1.00 [facility] Comment on above: Result Comment: For patients on eltrombopag therapy, use of Dimension [place] TBIL is not recommended. Performed By: #### L 100.0100, L500.4050 ####[facility] [address] [place], [address] BUN/CRE 21.1 RATIO High 10-[address] [facility] Comment on above: Performed By: #### L 100.0100, L500.4050 ####[facility] [address] [place], [address] CA,Total 9.0 mg/dL Normal 8.5-10.[address] [facility] Comment on above: Performed By: #### L 100.0100, L500.4050 ####[facility] [address] [place], [address] Chloride [Moles/Vol] 107 mmol/L Normal 98-107 [facility] Comment on above: Performed By: #### L 100.0100, L500.4050 ####[facility] [address] [place], [address] CO2 [Moles/Vol] 26.0 mmol/L Normal 21.0-32.[address] [facility] Comment on above: Performed By: #### L 100.0100, L500.4050 ####[facility] [address] [place], [address] Creatinine [Mass/Vol] 0.66 mg/dL Normal 0.55-1.02 [facility] Comment on above: Result Comment: The validity of the calculated GFR GFRAA in patients over70 years has not been determined. Clinical correlation isessential. Performed By: #### L 100.0100, L500.4050 ####[facility] [address] [place], [address] ECRCL 76.27 ml/min Normal [facility] Comment on above: Performed By: #### L 100.0100, L500.4050 ####[facility] [address] [place], [address] EST GFR - AA 113 mL/min Normal >[address] [facility] Comment on above: Result Comment: Afri can Icelandic GFR Calc Performed By: #### L 100.0100, L500.4050 ####[facility] [address] [place], [address] GAP 3 Low 5-[address] [facility] Comment on above: Performed By: #### L 100.0100, L500.4050 ####[facility] [address] [place], [address] GFR/1.73 sq M.predicted among non-blacks MDRD (S/P/Bld) [Vol rate/Area] 93 mL/min/{1.73_m2} Normal >60 [facility] Comment on above: Result Comment: Non- GFR Calc Performed By: #### L 100.0100, L500.4050 ####[facility] [address] [place], [address] Globulin (S) [Mass/Vol] 3.4 g/dL Normal 2.2-4.2 [facility] Comment on above: Performed By: #### L 100.0100, L500.4050 ####[facility] [address] [place], [address] Glucose [Mass/Vol] 118 mg/dL High 74-106 [facility] Comment on above: Result Comment: Fast ing Glucose result from 100 to 125 mg/dLsuggests IMPAIRED HOMEOSTASIS per A.D.A. criteria. Performed By: #### L 100.0100, L500.4050 ####[facility] [address] [place], [address] Potassium [Moles/Vol] 3.8 mmol/L Normal 3.5-5.1 [facility] Comment on above: Performed By: #### L 100.0100, L500.4050 ####[facility] [address] [place], [address] Sodium [Moles/Vol] 137 mmol/L Normal 136-145 [facility] Comment on above: Performed By: #### L 100.0100, L500.4050 ####[facility] [address] [place], [address] T PROT 6.9 g/dL Normal 6.4-8.[address] [facility] Comment on above: Performed By: #### L 100.0100, L500.4050 ####[facility] [address] [place], [address] Urea nitrogen [Mass/Vol] 14 mg/dL Normal 7-[address] [facility] Comment on above: Performed By: #### L 100.0100, L500.4050 ####[facility] [address] [place], [address] Consultation - Orthopedicson 08-09-2024 Consultation - Orthopedics Normal [facility] No Panel InformationOrdered By: Valeria Smith on 08-09-2024 19 U/L 15-[address] [facility] Serum globulin measurementOr dered By: Valeria Smith on 08-09-2024 Serum globulin measurement 3.4 g/dL 2.2-4.[address] [facility] Total proteinOrdered By: Aut kimmie Smith on 08-09-2024 Total protein 6.9 g/dL 6.4-8.[address] [facility] Bedside Glucoseon 08-08-2024 FINGERSTICK GLU 115 mg/dL High 74-[address] [facility] Comment on above: Result Comment: CHLOE GEMENT OF PATIENT CARE PER NURSING PROTOCOL Performed By: #### L 501.080 ####[facility] [address] [place], [address] FINGERSTICK GLU 142 mg/dL High 74-[address] [facility] Comment on above: Result Comment: CHLOE GEMENT OF PATIENT CARE PER NURSING PROTOCOL Performed By: #### L 501.080 ####[facility] [address] [place], [address] CBC W/Diff, Automatedon - Absolute Lymph 2.00 X10 3/uL Normal 0.83-4.[address] [facility] Comment on above: Performed By: #### L 501.9520, L501.5200, L500.4050, L100.0100, L501.2300 ####[facility] [address] [place], [address] Absolute Neut 7.4 X10 3/uL Normal 2.0-7.[address] [facility] Comment on above: Performed By: #### L 501.9520, L501.5200, L500.4050, L100.0100, L501.2300 ####[facility] [address] [place], [address] Basophils/100 WBC (Bld) 0.4 % Normal 0-1 [facility] Comment on above: Performed By: #### L 501.9520, L501.5200, L500.4050, L100.0100, L501.2300 ####[facility] [address] [place], [address] Eosinophils/100 WBC (Bld) 0.7 % Normal 0-[address] [facility] Comment on above: Performed By: #### L 501.9520, L501.5200, L500.4050, L100.0100, L501.2300 ####[facility] [address] [place], [address] Erythrocyte distribution width (RBC) [Ratio] 12.7 % Normal 11.6-14.[address] [facility] Comment on above: Performed By: #### L 501.9520, L501.5200, L500.4050, L100.0100, L501.2300 ####[facility] [address] [place], [address] Hematocrit (Bld) [Volume fraction] 34.6 % Low 37-[address] [facility] Comment on above: Performed By: #### L 501.9520, L501.5200, L500.4050, L100.0100, L501.2300 ####[facility] [address] [place], [address] Hemoglobin (Bld) [Mass/Vol] 11.1 g/dL Low 12.0-15.[address] [facility] Comment on above: Performed By: #### L 501.9520, L501.5200, L500.4050, L100.0100, L501.2300 ####[facility] [address] [place], [address] IG% 0.400 Normal 0.0-0.[address] [facility] Comment on above: Result Comment: IG% - Immature Granulocytes (promyelocytes, myelocytes andmetamyelocytes) > 1% indicates that a LEFT SHIFT is Present. Performed By: #### L 501.9520, L501.5200, L500.4050, L100.0100, L501.2300 ####[facility] [address] [place], [address] Lymphocytes/100 WBC (Bld) 19.5 % Normal 19-[address] [facility] Comment on above: Performed By: #### L 501.9520, L501.5200, L500.4050, L100.0100, L501.2300 ####[facility] [address] [place], [address] MCH (RBC) [Entitic mass] 31.1 pg Normal 27.0-32.[address] [facility] Comment on above: Performed By: #### L 501.9520, L501.5200, L500.4050, L100.0100, L501.2300 ####[facility] [address] [place], [address] MCHC (RBC) [Mass/Vol] 32.1 g/dL Normal 32-36 [facility] Comment on above: Performed By: #### L 501.9520, L501.5200, L500.4050, L100.0100, L501.2300 ####[facility] [address] [place], [address] MCV (RBC) [Entitic vol] 96.9 fL Normal 81-99 [facility] Comment on above: Performed By: #### L 501.9520, L501.5200, L500.4050, L100.0100, L501.2300 ####[facility] [address] [place], [address] Monocytes/100 WBC (Bld) 7.0 % Normal 0-10 [facility] Comment on above: Performed By: #### L 501.9520, L501.5200, L500.4050, L100.0100, L501.2300 ####[facility] [address] [place], [address] Neutrophils/100 WBC (Bld) 72.0 % High 47-[address] [facility] Comment on above: Performed By: #### L 501.9520, L501.5200, L500.4050, L100.0100, L501.2300 ####[facility] [address] [place], [address] Nucleated RBC (Bld) [#/Vol] 0 10*3/uL Normal 0-[address] [facility] Comment on above: Performed By: #### L 501.9520, L501.5200, L500.4050, L100.0100, L501.2300 ####[facility] [address] [place], [address] Platelet mean volume (Bld) [Entitic vol] 9.2 fL Normal 6.2-12.[address] [facility] Comment on above: Performed By: #### L 501.9520, L501.5200, L500.4050, L100.0100, L501.2300 ####[facility] [address] [place], [address] Platelets (Bld) [#/Vol] 327 10*3/uL Normal 150-[address] [facility] Comment on above: Performed By: #### L 501.9520, L501.5200, L500.4050, L100.0100, L501.2300 ####[facility] [address] [place], [address] RBC (Bld) [#/Vol] 3.57 10*6/uL Low 4.2-5.4 [facility] Comment on above: Performed By: #### L 501.9520, L501.5200, L500.4050, L100.0100, L501.2300 ####[facility] [address] [place], [address] RDW SD 45.4 fl High 35.1-43.[address] [facility] Comment on above: Performed By: #### L 501.9520, L501.5200, L500.4050, L100.0100, L501.2300 ####[facility] [address] [place], [address] WBC (Bld) [#/Vol] 10.3 10*3/uL Normal 4.4-11.0 [facility] Comment on above: Performed By: #### L 501.9520, L501.5200, L500.4050, L100.0100, L501.2300 ####[facility] [address] [place], [address] Comprehensive Metabolic Prof nyon 08-08-2024 Albumin [Mass/Vol] 3.5 g/dL Normal 3.2-5.0 [facility] Comment on above: Performed By: #### L 501.9520, L501.5200, L500.4050, L100.0100, L501.2300 ####[facility] [address] [place], [address] Albumin/Globulin [Mass ratio] 1.1 {ratio} Normal 0.9-2.[address] [facility] Comment on above: Performed By: #### L 501.9520, L501.5200, L500.4050, L100.0100, L501.2300 ####[facility] [address] [place], [address] ALK P 110 U/L Normal 45-[address] [facility] Comment on above: Performed By: #### L 501.9520, L501.5200, L500.4050, L100.0100, L501.2300 ####[facility] [address] [place], [address] ALT [Catalytic activity/Vol] 20 U/L Normal 13-[address] [facility] Comment on above: Performed By: #### L 501.9520, L501.5200, L500.4050, L100.0100, L501.2300 ####[facility] [address] [place], [address] AST [Catalytic activity/Vol] 20 U/L Normal 15-[address] [facility] Comment on above: Performed By: #### L 501.9520, L501.5200, L500.4050, L100.0100, L501.2300 ####[facility] [address] [place], [address] Bilirubin [Mass/Vol] 0.50 mg/dL Normal 0.20-1.00 [facility] Comment on above: Result Comment: For patients on eltrombopag therapy, use of Dimension Hudson TBIL is not recommended. Performed By: #### L 501.9520, L501.5200, L500.4050, L100.0100, L501.2300 ####[facility] [address] [place], [address] BUN/CRE 24.3 RATIO High 10-[address] [facility] Comment on above: Performed By: #### L 501.9520, L501.5200, L500.4050, L100.0100, L501.2300 ####[facility] [address] [place], [address] CA,Total 8.8 mg/dL Normal 8.5-10.[address] [facility] Comment on above: Performed By: #### L 501.9520, L501.5200, L500.4050, L100.0100, L501.2300 ####[facility] [address] [place], [address] Chloride [Moles/Vol] 107 mmol/L Normal 98-107 [facility] Comment on above: Performed By: #### L 501.9520, L501.5200, L500.4050, L100.0100, L501.2300 ####[facility] [address] [place], [address] CO2 [Moles/Vol] 27.0 mmol/L Normal 21.0-32.[address] [facility] Comment on above: Performed By: #### L 501.9520, L501.5200, L500.4050, L100.0100, L501.2300 ####[facility] [address] [place], [address] Creatinine [Mass/Vol] 0.62 mg/dL Normal 0.55-1.02 [facility] Comment on above: Result Comment: The validity of the calculated GFR GFRAA in patients over70 years has not been determined. Clinical correlation isessential. Performed By: #### L 501.9520, L501.5200, L500.4050, L100.0100, L501.2300 ####[facility] [address] [place], [address] ECRCL 76.27 ml/min Normal [facility] Comment on above: Performed By: #### L 501.9520, L501.5200, L500.4050, L100.0100, L501.2300 ####[facility] [address] [place], [address] EST GFR - AA 122 mL/min Normal >[address] [facility] Comment on above: Result Comment: Afri can Icelandic GFR Calc Performed By: #### L 501.9520, L501.5200, L500.4050, L100.0100, L501.2300 ####[facility] [address] [place], [address] GAP 4 Low 5-[address] [facility] Comment on above: Performed By: #### L 501.9520, L501.5200, L500.4050, L100.0100, L501.2300 ####[facility] [address] [place], [address] GFR/1.73 sq M.predicted among non-blacks MDRD (S/P/Bld) [Vol rate/Area] 101 mL/min/{1.73_m2} Normal >60 [facility] Comment on above: Result Comment: Non- GFR Calc Performed By: #### L 501.9520, L501.5200, L500.4050, L100.0100, L501.2300 ####[facility] [address] [place], [address] Globulin (S) [Mass/Vol] 3.1 g/dL Normal 2.2-4.2 [facility] Comment on above: Performed By: #### L 501.9520, L501.5200, L500.4050, L100.0100, L501.2300 ####[facility] [address] [place], [address] Glucose [Mass/Vol] 125 mg/dL High 74-106 [facility] Comment on above: Result Comment: Fast ing Glucose result from 100 to 125 mg/dLsuggests IMPAIRED HOMEOSTASIS per A.D.A. criteria. Performed By: #### L 501.9520, L501.5200, L500.4050, L100.0100, L501.2300 ####[facility] [address] [place], [address] Potassium [Moles/Vol] 3.2 mmol/L Low 3.5-5.1 [facility] Comment on above: Performed By: #### L 501.9520, L501.5200, L500.4050, L100.0100, L501.2300 ####[facility] [address] [place], [address] Sodium [Moles/Vol] 138 mmol/L Normal 136-145 [facility] Comment on above: Performed By: #### L 501.9520, L501.5200, L500.4050, L100.0100, L501.2300 ####[facility] [address] [place], [address] T PROT 6.6 g/dL Normal 6.4-8.[address] [facility] Comment on above: Performed By: #### L 501.9520, L501.5200, L500.4050, L100.0100, L501.2300 ####[facility] [address] [place], [address] Urea nitrogen [Mass/Vol] 15 mg/dL Normal 7-[address] [facility] Comment on above: Performed By: #### L 501.9520, L501.5200, L500.4050, L100.0100, L501.2300 ####[facility] [address] [place], [address] HbA1c (Bld) [Mass fraction]O rdered By: Valeria Simth on 08-08-2024 Hemoglobin A1c percentage 5.2 % 3.8-5.[address] [facility] Hemoglobin A1con 08-08-2024 HbA1c (Bld) [Mass fraction] 5.2 % Normal 3.8-5.[address] [facility] Comment on above: Order Comment: Comme nts: add to am labs Result Comment: Norm al < 5.7 % Prediabetic 5.7 - 6.4 % Diabetic >or= 6.5 % Please note range changes. Performed By: #### L 501.9985 ####[facility] [address] [place], [address] Magnesiumon 08-08-2024 Magnesium [Mass/Vol] 2.2 mg/dL Normal 1.6-2.6 [facility] Comment on above: Performed By: #### L 501.9520, L501.5200, L500.4050, L100.0100, L501.2300 ####[facility] [address] [place], [address] Magnesium measurementOrdered By: Alexandra Lee on 08-08-2024 Magnesium measurement 2.2 mg/dL 1.6-2.6 [facility] Phosphoruson 08-08-2024 Phosphate [Mass/Vol] 3.1 mg/dL Normal 2.5-4.9 [facility] Comment on above: Performed By: #### L 501.9520, L501.5200, L500.4050, L100.0100, L501.2300 ####[facility] [address] [place], [address] Phosphorus measurementOrdere d By: Alexandra Lee on 08-08-2024 Phosphorus measurement 3.1 mg/dL 2.5-4.9 [facility] TSH QnOrdered By: Alexandra almendarez on 08-08-2024 Serum or plasma thyroid stimulating hormone (TSH) measurement (units/volume) 1.390 uIU/mL 0.358-3.[address] [facility] Thyroid Stim Hormone (TSH)on 08-08-2024 TSH 1.390 uIU/mL Normal 0.358-3.[address] [facility] Comment on above: Performed By: #### L 501.9520, L501.5200, L500.4050, L100.0100, L501.2300 ####[facility] [address] [place], [address] Amorphous sediment LM Ql (Ur ine sed)Ordered By: Lisa Barraza on 08-07-2024 Amorphous sediment detection in urine sediment by light microscopy 1+ [facility] Bacteria LM.HPF (Urine sed) [#/Area]Ordered By: Lisa Barraza on 08-07-2024 Urine sediment bacteria count by microscopy (number/high power field) 1+ /hpf None Seen [facility] Basic Metabolic Profile (BMP )on 08-07-2024 BUN/CRE 23.7 RATIO High 10-[address] [facility] Comment on above: Performed By: #### L 500.2500, L100.0100 ####[facility] [address] [place], [address] CA,Total 8.6 mg/dL Normal 8.5-10.[address] [facility] Comment on above: Performed By: #### L 500.2500, L100.0100 ####[facility] [address] [place], [address] Chloride [Moles/Vol] 108 mmol/L High 98-107 [facility] Comment on above: Performed By: #### L 500.2500, L100.0100 ####[facility] [address] [place], [address] CO2 [Moles/Vol] 22.0 mmol/L Normal 21.0-32.[address] [facility] Comment on above: Performed By: #### L 500.2500, L100.0100 ####[facility] [address] [place], [address] Creatinine [Mass/Vol] 0.68 mg/dL Normal 0.55-1.02 [facility] Comment on above: Result Comment: The validity of the calculated GFR GFRAA in patients over70 years has not been determined. Clinical correlation isessential. Performed By: #### L 500.2500, L100.0100 ####[facility] [address] [place], [address] ECRCL 81.99 ml/min Normal [facility] Comment on above: Performed By: #### L 500.2500, L100.0100 ####[facility] [address] [place], [address] EST GFR - AA 110 mL/min Normal >[address] [facility] Comment on above: Result Comment: Afri can Icelandic GFR Calc Performed By: #### L 500.2500, L100.0100 ####[facility] [address] [place], [address] GAP 8 Normal 5-[address] [facility] Comment on above: Performed By: #### L 500.2500, L100.0100 ####[facility] [address] [place], [address] GFR/1.73 sq M.predicted among non-blacks MDRD (S/P/Bld) [Vol rate/Area] 91 mL/min/{1.73_m2} Normal >60 [facility] Comment on above: Result Comment: Non- GFR Calc Performed By: #### L 500.2500, L100.0100 ####[facility] [address] [place], [address] Glucose [Mass/Vol] 138 mg/dL High 74-106 [facility] Comment on above: Result Comment: Fast ing Glucose result greater than or equal to 126 mg/dLsuggests DIABETES MELLITUS per A.D.A. criteria. Performed By: #### L 500.2500, L100.0100 ####[facility] [address] [place], [address] Potassium [Moles/Vol] 3.1 mmol/L Low 3.5-5.1 [facility] Comment on above: Performed By: #### L 500.2500, L100.0100 ####[facility] [address] [place], [address] Sodium [Moles/Vol] 138 mmol/L Normal 136-145 [facility] Comment on above: Performed By: #### L 500.2500, L100.0100 ####[facility] [address] [place], [address] Urea nitrogen [Mass/Vol] 16 mg/dL Normal 7-[address] [facility] Comment on above: Performed By: #### L 500.2500, L100.0100 ####[facility] [address] [place], [address] CBC W/Diff, Automatedon 12-2 8-2023 Absolute Lymph 1.75 X10 3/uL Normal 0.83-4.[address] [facility] Comment on above: Performed By: #### L 500.2500, L100.0100 ####[facility] [address] [place], [address] Absolute Neut 11.6 X10 3/uL High 2.0-7.[address] [facility] Comment on above: Performed By: #### L 500.2500, L100.0100 ####[facility] [address] [place], [address] Basophils/100 WBC (Bld) 0.3 % Normal 0-1 [facility] Comment on above: Performed By: #### L 500.2500, L100.0100 ####[facility] [address] [place], [address] Eosinophils/100 WBC (Bld) 0.1 % Normal 0-[address] [facility] Comment on above: Performed By: #### L 500.2500, L100.0100 ####[facility] [address] [place], [address] Erythrocyte distribution width (RBC) [Ratio] 12.7 % Normal 11.6-14.[address] [facility] Comment on above: Performed By: #### L 500.2500, L100.0100 ####[facility] [address] [place], [address] Hematocrit (Bld) [Volume fraction] 34.7 % Low 37-[address] [facility] Comment on above: Performed By: #### L 500.2500, L100.0100 ####[facility] [address] [place], [address] Hemoglobin (Bld) [Mass/Vol] 11.2 g/dL Low 12.0-15.[address] [facility] Comment on above: Performed By: #### L 500.2500, L100.0100 ####[facility] [address] [place], [address] IG% 0.600 Normal 0.0-0.[address] [facility] Comment on above: Result Comment: IG% - Immature Granulocytes (promyelocytes, myelocytes andmetamyelocytes) > 1% indicates that a LEFT SHIFT is Present. Performed By: #### L 500.2500, L100.0100 ####[facility] [address] [place], [address] Lymphocytes/100 WBC (Bld) 12.3 % Low 19-[address] [facility] Comment on above: Performed By: #### L 500.2500, L100.0100 ####[facility] [address] [place], [address] MCH (RBC) [Entitic mass] 31.2 pg Normal 27.0-32.[address] [facility] Comment on above: Performed By: #### L 500.2500, L100.0100 ####[facility] [address] [place], [address] MCHC (RBC) [Mass/Vol] 32.3 g/dL Normal 32-36 [facility] Comment on above: Performed By: #### L 500.2500, L100.0100 ####[facility] [address] [place], [address] MCV (RBC) [Entitic vol] 96.7 fL Normal 81-99 [facility] Comment on above: Performed By: #### L 500.2500, L100.0100 ####[facility] [address] [place], [address] Monocytes/100 WBC (Bld) 5.3 % Normal 0-10 [facility] Comment on above: Performed By: #### L 500.2500, L100.0100 ####[facility] [address] [place], [address] Neutrophils/100 WBC (Bld) 81.4 % High 47-[address] [facility] Comment on above: Performed By: #### L 500.2500, L100.0100 ####[facility] [address] [place], [address] Nucleated RBC (Bld) [#/Vol] 0 10*3/uL Normal 0-[address] [facility] Comment on above: Performed By: #### L 500.2500, L100.0100 ####[facility] [address] [place], [address] Platelet mean volume (Bld) [Entitic vol] 9.0 fL Normal 6.2-12.[address] [facility] Comment on above: Performed By: #### L 500.2500, L100.0100 ####[facility] [address] [place], [address] Platelets (Bld) [#/Vol] 333 10*3/uL Normal 150-[address] [facility] Comment on above: Performed By: #### L 500.2500, L100.0100 ####[facility] [address] [place], [address] RBC (Bld) [#/Vol] 3.59 10*6/uL Low 4.2-5.4 [facility] Comment on above: Performed By: #### L 500.2500, L100.0100 ####[facility] [address] [place], [address] RDW SD 45.5 fl High 35.1-43.[address] [facility] Comment on above: Performed By: #### L 500.2500, L100.0100 ####[facility] [address] [place], [address] WBC (Bld) [#/Vol] 14.2 10*3/uL High 4.4-11.0 [facility] Comment on above: Performed By: #### L 500.2500, L100.0100 ####[facility] [address] [place], [address] Clarity (U)Ordered By: Louis Barraza on 08-07-2024 Urine clarity Cloudy Clear [facility] Color (U)Ordered By: Lisa Barraza on 08-07-2024 Urine color determination Yellow Yellow [facility] Emergency Department Summary on 08-07-2024 Emergency Department Summary Normal [facility] H AND P Exam - Hospitaliston 08-07-2024 H&P Exam - Hospitalist Normal [facility] Humerus min 2 Viewson 2023 Humerus min 2 Views Normal [facility] Ketones Test strip Ql (U)Ord ered By: Lisa Barraza on 08-07-2024 Urine ketones detection by test strip 5 mg/dl High Negative [facility] Lactic Acidon 08-07-2024 Lactate [Moles/Vol] 0.9 mmol/L Normal 0.4-1.9 [facility] Comment on above: Order Comment: Y Performed By: #### L 503.6005 ####[facility] [address] [place], [address] Lactic acid measurementOrder ed By: Lisa Barraza on 08-07-2024 Lactic acid measurement 0.9 mmol/L 0.4-2.0 [facility] Microscopic analysis of urin e for red blood cells (RBC)Ordered By: Lisa Barraza on 08-07-2024 Microscopic analysis of urine for red blood cells (RBC) 0-5 SEEN /hpf 5-[address] [facility] Shoulder min 2 Viewson 08-07 Shoulder min 2 Views Normal [facility] Specific gravity (U) [Rel de nsity]Ordered By: Lisa Barraza on 08-07-2024 Urine specific gravity measurement 1.010 1.002-1.[address] [facility] Urinalysis, Completeon 08-07 RBC 0-5 SEEN Normal 0-[address] [facility] Comment on above: Order Comment: TONE CTOR TO SPECIFY Performed By: #### L 400.0001 ####[facility] [address] [place], [address] AMORPHOUS 1+ Normal [facility] Comment on above: Order Comment: TONE CTOR TO SPECIFY Performed By: #### L 400.0001 ####[facility] [address] [place], [address] BACTERIA 1+ /hpf Normal None Seen [facility] Comment on above: Order Comment: TONE CTOR TO SPECIFY Performed By: #### L 400.0001 ####[facility] [address] [place], [address] EPI,SQUAMOUS 0-5 SEEN Normal 5-[address] [facility] Comment on above: Order Comment: TONE CTOR TO SPECIFY Performed By: #### L 400.0001 ####[facility] [address] [place], [address] Mucus Ql (Urine sed) 0 SEEN Normal [facility] Comment on above: Order Comment: TONE CTOR TO SPECIFY Performed By: #### L 400.0001 ####[facility] [address] [place], [address] WBC 0 SEEN Normal 0-[address] [facility] Comment on above: Order Comment: TONE CTOR TO SPECIFY Performed By: #### L 400.0001 ####[facility] [address] [place], [address] Urine glucose detectionOrder ed By: Lisa Barraza on 08-07-2024 Urine glucose detection Normal mg/dl Normal [facility] Urine total bilirubin detect ion by test stripOrdered By: Lisa Barraza on 08-07-2024 Urine total bilirubin detection by test strip Negative Negative [facility] White blood cell countOrdere d By: Lisa Barraza on 08-07-2024 White blood cell count 0 SEEN /hpf [facility] pH (U)Ordered By: Lisa lala on 08-07-2024 Urine pH 7.0 5.0 - 8.[address] [facility] Pulmonary Visit Reporton Pulmonary Visit Report Normal [facility] Basic Metabolic Profile (BMP )on 06-21-2024 BUN Normal 7-[address] [facility] Comment on above: Result Comment: Canc elled via OM: Order cancelled - Patient discharged Performed By: #### L 500.2500, L100.0100 ####[facility] [address] [place], [address] BUN/CRE Normal 10-[address] [facility] Comment on above: Result Comment: Canc elled via OM: Order cancelled - Patient discharged Performed By: #### L 500.2500, L100.0100 ####[facility] [address] [place], [address] CA,Total Normal 8.5-10.[address] [facility] Comment on above: Result Comment: Canc elled via OM: Order cancelled - Patient discharged Performed By: #### L 500.2500, L100.0100 ####[facility] [address] [place], [address] CL Normal 98-[address] [facility] Comment on above: Result Comment: Canc elled via OM: Order cancelled - Patient discharged Performed By: #### L 500.2500, L100.0100 ####[facility] [address] [place], [address] CO2 Normal 21.0-32.[address] [facility] Comment on above: Result Comment: Canc elled via OM: Order cancelled - Patient discharged Performed By: #### L 500.2500, L100.0100 ####[facility] [address] [place], [address] CREAT,SERUM Normal 0.55-1.[address] [facility] Comment on above: Result Comment: Canc elled via OM: Order cancelled - Patient discharged Performed By: #### L 500.2500, L100.0100 ####[facility] [address] [place], [address] EST GFR Normal >[address] [facility] Comment on above: Result Comment: Canc elled via OM: Order cancelled - Patient discharged Performed By: #### L 500.2500, L100.0100 ####[facility] [address] [place], [address] EST GFR - AA Normal >[address] [facility] Comment on above: Result Comment: Canc elled via OM: Order cancelled - Patient discharged Performed By: #### L 500.2500, L100.0100 ####[facility] [address] [place], [address] GAP Normal 5-[address] [facility] Comment on above: Result Comment: Canc elled via OM: Order cancelled - Patient discharged Performed By: #### L 500.2500, L100.0100 ####[facility] [address] [place], [address] GLU Normal 74-[address] [facility] Comment on above: Result Comment: Canc elled via OM: Order cancelled - Patient discharged Performed By: #### L 500.2500, L100.0100 ####[facility] [address] [place], [address] Potassium Normal 3.5-5.[address] [facility] Comment on above: Result Comment: Canc elled via OM: Order cancelled - Patient discharged Performed By: #### L 500.2500, L100.0100 ####[facility] [address] [place], [address] Basic Metabolic Profile (BMP) Normal 136-[address] [facility] Comment on above: Result Comment: Canc elled via OM: Order cancelled - Patient discharged Performed By: #### L 500.2500, L100.0100 ####[facility] [address] [place], [address] CBC W/Diff, Automatedon 11- Absolute Neut Normal 2.0-7.[address] [facility] Comment on above: Result Comment: Canc elled via OM: Order cancelled - Patient discharged Performed By: #### L 500.2500, L100.0100 ####[facility] [address] [place], [address] HCT Normal 37-[address] [facility] Comment on above: Result Comment: Canc elled via OM: Order cancelled - Patient discharged Performed By: #### L 500.2500, L100.0100 ####[facility] [address] [place], [address] HGB Normal 12.0-15.[address] [facility] Comment on above: Result Comment: Canc elled via OM: Order cancelled - Patient discharged Performed By: #### L 500.2500, L100.0100 ####[facility] [address] [place], [address] MCH Normal 27.0-32.[address] [facility] Comment on above: Result Comment: Canc elled via OM: Order cancelled - Patient discharged Performed By: #### L 500.2500, L100.0100 ####[facility] [address] [place], [address] MCHC Normal 32-[address] [facility] Comment on above: Result Comment: Canc elled via OM: Order cancelled - Patient discharged Performed By: #### L 500.2500, L100.0100 ####[facility] [address] [place], [address] MCV Normal 81-[address] [facility] Comment on above: Result Comment: Canc elled via OM: Order cancelled - Patient discharged Performed By: #### L 500.2500, L100.0100 ####[facility] [address] [place], [address] NEUT% Normal 47-[address] [facility] Comment on above: Result Comment: Canc elled via OM: Order cancelled - Patient discharged Performed By: #### L 500.2500, L100.0100 ####[facility] [address] [place], [address] PLT Normal 150-[address] [facility] Comment on above: Result Comment: Canc elled via OM: Order cancelled - Patient discharged Performed By: #### L 500.2500, L100.0100 ####[facility] [address] [place], [address] RBC Normal 4.2-5.[address] [facility] Comment on above: Result Comment: Canc elled via OM: Order cancelled - Patient discharged Performed By: #### L 500.2500, L100.0100 ####[facility] [address] [place], [address] RDW CV Normal 11.6-14.[address] [facility] Comment on above: Result Comment: Canc elled via OM: Order cancelled - Patient discharged Performed By: #### L 500.2500, L100.0100 ####[facility] [address] [place], [address] RDW SD Normal 35.1-43.[address] [facility] Comment on above: Result Comment: Canc elled via OM: Order cancelled - Patient discharged Performed By: #### L 500.2500, L100.0100 ####[facility] [address] [place], [address] WBC Normal 4.4-11.[address] [facility] Comment on above: Result Comment: Canc elled via OM: Order cancelled - Patient discharged Performed By: #### L 500.2500, L100.0100 ####[facility] [address] [place], [address] Basic Metabolic Profile (BMP )on 06-20-2024 BUN Normal 7-[address] [facility] Comment on above: Result Comment: Canc elled via OM: Order cancelled - Patient discharged Performed By: #### L 500.2500, L100.0100 ####[facility] [address] [place], [address] BUN/CRE Normal 10-[address] [facility] Comment on above: Result Comment: Canc elled via OM: Order cancelled - Patient discharged Performed By: #### L 500.2500, L100.0100 ####[facility] [address] [place], [address] CA,Total Normal 8.5-10.[address] [facility] Comment on above: Result Comment: Canc elled via OM: Order cancelled - Patient discharged Performed By: #### L 500.2500, L100.0100 ####[facility] [address] [place], [address] CL Normal 98-[address] [facility] Comment on above: Result Comment: Canc elled via OM: Order cancelled - Patient discharged Performed By: #### L 500.2500, L100.0100 ####[facility] [address] [place], [address] CO2 Normal 21.0-32.[address] [facility] Comment on above: Result Comment: Canc elled via OM: Order cancelled - Patient discharged Performed By: #### L 500.2500, L100.0100 ####[facility] [address] [place], [address] CREAT,SERUM Normal 0.55-1.[address] [facility] Comment on above: Result Comment: Canc elled via OM: Order cancelled - Patient discharged Performed By: #### L 500.2500, L100.0100 ####[facility] [address] [place], [address] EST GFR Normal >[address] [facility] Comment on above: Result Comment: Canc elled via OM: Order cancelled - Patient discharged Performed By: #### L 500.2500, L100.0100 ####[facility] [address] [place], [address] EST GFR - AA Normal >[address] [facility] Comment on above: Result Comment: Canc elled via OM: Order cancelled - Patient discharged Performed By: #### L 500.2500, L100.0100 ####[facility] [address] [place], [address] GAP Normal 5-[address] [facility] Comment on above: Result Comment: Canc elled via OM: Order cancelled - Patient discharged Performed By: #### L 500.2500, L100.0100 ####[facility] [address] [place], [address] GLU Normal 74-[address] [facility] Comment on above: Result Comment: Canc elled via OM: Order cancelled - Patient discharged Performed By: #### L 500.2500, L100.0100 ####[facility] [address] [place], [address] Potassium Normal 3.5-5.[address] [facility] Comment on above: Result Comment: Canc elled via OM: Order cancelled - Patient discharged Performed By: #### L 500.2500, L100.0100 ####[facility] [address] [place], [address] Basic Metabolic Profile (BMP) Normal 136-[address] [facility] Comment on above: Result Comment: Canc elled via OM: Order cancelled - Patient discharged Performed By: #### L 500.2500, L100.0100 ####[facility] [address] [place], [address] CBC W/Diff, Automatedon 11-1 0-2023 Absolute Neut Normal 2.0-7.[address] [facility] Comment on above: Result Comment: Canc elled via OM: Order cancelled - Patient discharged Performed By: #### L 500.2500, L100.0100 ####[facility] [address] [place], [address] HCT Normal 37-[address] [facility] Comment on above: Result Comment: Canc elled via OM: Order cancelled - Patient discharged Performed By: #### L 500.2500, L100.0100 ####[facility] [address] [place], [address] HGB Normal 12.0-15.[address] [facility] Comment on above: Result Comment: Canc elled via OM: Order cancelled - Patient discharged Performed By: #### L 500.2500, L100.0100 ####[facility] [address] [place], [address] MCH Normal 27.0-32.[address] [facility] Comment on above: Result Comment: Canc elled via OM: Order cancelled - Patient discharged Performed By: #### L 500.2500, L100.0100 ####[facility] [address] [place], [address] MCHC Normal 32-[address] [facility] Comment on above: Result Comment: Canc elled via OM: Order cancelled - Patient discharged Performed By: #### L 500.2500, L100.0100 ####[facility] [address] [place], [address] MCV Normal 81-[address] [facility] Comment on above: Result Comment: Canc elled via OM: Order cancelled - Patient discharged Performed By: #### L 500.2500, L100.0100 ####[facility] [address] [place], [address] NEUT% Normal 47-[address] [facility] Comment on above: Result Comment: Canc elled via OM: Order cancelled - Patient discharged Performed By: #### L 500.2500, L100.0100 ####[facility] [address] [place], [address] PLT Normal 150-[address] [facility] Comment on above: Result Comment: Canc elled via OM: Order cancelled - Patient discharged Performed By: #### L 500.2500, L100.0100 ####[facility] [address] [place], [address] RBC Normal 4.2-5.[address] [facility] Comment on above: Result Comment: Canc elled via OM: Order cancelled - Patient discharged Performed By: #### L 500.2500, L100.0100 ####[facility] [address] [place], [address] RDW CV Normal 11.6-14.[address] [facility] Comment on above: Result Comment: Canc elled via OM: Order cancelled - Patient discharged Performed By: #### L 500.2500, L100.0100 ####[facility] [address] [place], [address] RDW SD Normal 35.1-43.[address] [facility] Comment on above: Result Comment: Canc elled via OM: Order cancelled - Patient discharged Performed By: #### L 500.2500, L100.0100 ####[facility] [address] [place], [address] WBC Normal 4.4-11.[address] [facility] Comment on above: Result Comment: Canc elled via OM: Order cancelled - Patient discharged Performed By: #### L 500.2500, L100.0100 ####[facility] [address] [place], [address] Basic Metabolic Profile (BMP )on 06-19-2024 BUN Normal 7-[address] [facility] Comment on above: Result Comment: Canc elled via OM: Order cancelled - Patient discharged Performed By: #### L 100.0100, L500.2500 ####[facility] [address] [place], [address] BUN/CRE Normal 10-[address] [facility] Comment on above: Result Comment: Canc elled via OM: Order cancelled - Patient discharged Performed By: #### L 100.0100, L500.2500 ####[facility] [address] [place], [address] CA,Total Normal 8.5-10.[address] [facility] Comment on above: Result Comment: Canc elled via OM: Order cancelled - Patient discharged Performed By: #### L 100.0100, L500.2500 ####[facility] [address] [place], [address] CL Normal 98-[address] [facility] Comment on above: Result Comment: Canc elled via OM: Order cancelled - Patient discharged Performed By: #### L 100.0100, L500.2500 ####[facility] [address] [place], [address] CO2 Normal 21.0-32.[address] [facility] Comment on above: Result Comment: Canc elled via OM: Order cancelled - Patient discharged Performed By: #### L 100.0100, L500.2500 ####[facility] [address] [place], [address] CREAT,SERUM Normal 0.55-1.[address] [facility] Comment on above: Result Comment: Canc elled via OM: Order cancelled - Patient discharged Performed By: #### L 100.0100, L500.2500 ####[facility] [address] [place], [address] EST GFR Normal >[address] [facility] Comment on above: Result Comment: Canc elled via OM: Order cancelled - Patient discharged Performed By: #### L 100.0100, L500.2500 ####[facility] [address] [place], [address] EST GFR - AA Normal >[address] [facility] Comment on above: Result Comment: Canc elled via OM: Order cancelled - Patient discharged Performed By: #### L 100.0100, L500.2500 ####[facility] [address] [place], [address] GAP Normal 5-[address] [facility] Comment on above: Result Comment: Canc elled via OM: Order cancelled - Patient discharged Performed By: #### L 100.0100, L500.2500 ####[facility] [address] [place], [address] GLU Normal 74-[address] [facility] Comment on above: Result Comment: Canc elled via OM: Order cancelled - Patient discharged Performed By: #### L 100.0100, L500.2500 ####[facility] [address] [place], [address] Potassium Normal 3.5-5.[address] [facility] Comment on above: Result Comment: Canc elled via OM: Order cancelled - Patient discharged Performed By: #### L 100.0100, L500.2500 ####[facility] [address] [place], [address] Basic Metabolic Profile (BMP) Normal 136-[address] [facility] Comment on above: Result Comment: Canc elled via OM: Order cancelled - Patient discharged Performed By: #### L 100.0100, L500.2500 ####[facility] [address] [place], [address] CBC W/Diff, Automatedon 11-0 Absolute Neut Normal 2.0-7.[address] [facility] Comment on above: Result Comment: Canc elled via OM: Order cancelled - Patient discharged Performed By: #### L 100.0100, L500.2500 ####[facility] [address] [place], [address] HCT Normal 37-[address] [facility] Comment on above: Result Comment: Canc elled via OM: Order cancelled - Patient discharged Performed By: #### L 100.0100, L500.2500 ####[facility] [address] [place], [address] HGB Normal 12.0-15.[address] [facility] Comment on above: Result Comment: Canc elled via OM: Order cancelled - Patient discharged Performed By: #### L 100.0100, L500.2500 ####[facility] [address] [place], [address] MCH Normal 27.0-32.[address] [facility] Comment on above: Result Comment: Canc elled via OM: Order cancelled - Patient discharged Performed By: #### L 100.0100, L500.2500 ####[facility] [address] [place], [address] MCHC Normal 32-[address] [facility] Comment on above: Result Comment: Canc elled via OM: Order cancelled - Patient discharged Performed By: #### L 100.0100, L500.2500 ####[facility] [address] [place], [address] MCV Normal 81-[address] [facility] Comment on above: Result Comment: Canc elled via OM: Order cancelled - Patient discharged Performed By: #### L 100.0100, L500.2500 ####[facility] [address] [place], [address] NEUT% Normal 47-[address] [facility] Comment on above: Result Comment: Canc elled via OM: Order cancelled - Patient discharged Performed By: #### L 100.0100, L500.2500 ####[facility] [address] [place], [address] PLT Normal 150-[address] [facility] Comment on above: Result Comment: Canc elled via OM: Order cancelled - Patient discharged Performed By: #### L 100.0100, L500.2500 ####[facility] [address] [place], [address] RBC Normal 4.2-5.[address] [facility] Comment on above: Result Comment: Canc elled via OM: Order cancelled - Patient discharged Performed By: #### L 100.0100, L500.2500 ####[facility] [address] [place], [address] RDW CV Normal 11.6-14.[address] [facility] Comment on above: Result Comment: Canc elled via OM: Order cancelled - Patient discharged Performed By: #### L 100.0100, L500.2500 ####[facility] [address] [place], [address] RDW SD Normal 35.1-43.[address] [facility] Comment on above: Result Comment: Canc elled via OM: Order cancelled - Patient discharged Performed By: #### L 100.0100, L500.2500 ####[facility] [address] [place], [address] WBC Normal 4.4-11.[address] [facility] Comment on above: Result Comment: Canc elled via OM: Order cancelled - Patient discharged Performed By: #### L 100.0100, L500.2500 ####[facility] [address] [place], [address] Basic Metabolic Profile (BMP )on 06-18-2024 BUN Normal 7-[address] [facility] Comment on above: Result Comment: Canc elled via OM: Order cancelled - Patient discharged Performed By: #### L 500.2500, L100.0100 ####[facility] [address] [place], [address] BUN/CRE Normal 10-[address] [facility] Comment on above: Result Comment: Canc elled via OM: Order cancelled - Patient discharged Performed By: #### L 500.2500, L100.0100 ####[facility] [address] [place], [address] CA,Total Normal 8.5-10.[address] [facility] Comment on above: Result Comment: Canc elled via OM: Order cancelled - Patient discharged Performed By: #### L 500.2500, L100.0100 ####[facility] [address] [place], [address] CL Normal 98-[address] [facility] Comment on above: Result Comment: Canc elled via OM: Order cancelled - Patient discharged Performed By: #### L 500.2500, L100.0100 ####[facility] [address] [place], [address] CO2 Normal 21.0-32.[address] [facility] Comment on above: Result Comment: Canc elled via OM: Order cancelled - Patient discharged Performed By: #### L 500.2500, L100.0100 ####[facility] [address] [place], [address] CREAT,SERUM Normal 0.55-1.[address] [facility] Comment on above: Result Comment: Canc elled via OM: Order cancelled - Patient discharged Performed By: #### L 500.2500, L100.0100 ####[facility] [address] [place], [address] EST GFR Normal >[address] [facility] Comment on above: Result Comment: Canc elled via OM: Order cancelled - Patient discharged Performed By: #### L 500.2500, L100.0100 ####[facility] [address] [place], [address] EST GFR - AA Normal >[address] [facility] Comment on above: Result Comment: Canc elled via OM: Order cancelled - Patient discharged Performed By: #### L 500.2500, L100.0100 ####[facility] [address] [place], [address] GAP Normal 5-[address] [facility] Comment on above: Result Comment: Canc elled via OM: Order cancelled - Patient discharged Performed By: #### L 500.2500, L100.0100 ####[facility] [address] [place], [address] GLU Normal 74-[address] [facility] Comment on above: Result Comment: Canc elled via OM: Order cancelled - Patient discharged Performed By: #### L 500.2500, L100.0100 ####[facility] [address] [place], [address] Potassium Normal 3.5-5.[address] [facility] Comment on above: Result Comment: Canc elled via OM: Order cancelled - Patient discharged Performed By: #### L 500.2500, L100.0100 ####[facility] [address] [place], [address] Basic Metabolic Profile (BMP) Normal 136-[address] [facility] Comment on above: Result Comment: Canc elled via OM: Order cancelled - Patient discharged Performed By: #### L 500.2500, L100.0100 ####[facility] [address] [place], [address] CBC W/Diff, Automatedon 11-0 Absolute Neut Normal 2.0-7.[address] [facility] Comment on above: Result Comment: Canc elled via OM: Order cancelled - Patient discharged Performed By: #### L 500.2500, L100.0100 ####[facility] [address] [place], [address] HCT Normal 37-[address] [facility] Comment on above: Result Comment: Canc elled via OM: Order cancelled - Patient discharged Performed By: #### L 500.2500, L100.0100 ####[facility] [address] [place], [address] HGB Normal 12.0-15.[address] [facility] Comment on above: Result Comment: Canc elled via OM: Order cancelled - Patient discharged Performed By: #### L 500.2500, L100.0100 ####[facility] [address] [place], [address] MCH Normal 27.0-32.[address] [facility] Comment on above: Result Comment: Canc elled via OM: Order cancelled - Patient discharged Performed By: #### L 500.2500, L100.0100 ####[facility] [address] [place], [address] MCHC Normal 32-[address] [facility] Comment on above: Result Comment: Canc elled via OM: Order cancelled - Patient discharged Performed By: #### L 500.2500, L100.0100 ####[facility] [address] [place], [address] MCV Normal 81-[address] [facility] Comment on above: Result Comment: Canc elled via OM: Order cancelled - Patient discharged Performed By: #### L 500.2500, L100.0100 ####[facility] [address] [place], [address] NEUT% Normal 47-[address] [facility] Comment on above: Result Comment: Canc elled via OM: Order cancelled - Patient discharged Performed By: #### L 500.2500, L100.0100 ####[facility] [address] [place], [address] PLT Normal 150-[address] [facility] Comment on above: Result Comment: Canc elled via OM: Order cancelled - Patient discharged Performed By: #### L 500.2500, L100.0100 ####[facility] [address] [place], [address] RBC Normal 4.2-5.[address] [facility] Comment on above: Result Comment: Canc elled via OM: Order cancelled - Patient discharged Performed By: #### L 500.2500, L100.0100 ####[facility] [address] [place], [address] RDW CV Normal 11.6-14.[address] [facility] Comment on above: Result Comment: Canc elled via OM: Order cancelled - Patient discharged Performed By: #### L 500.2500, L100.0100 ####[facility] [address] [place], [address] RDW SD Normal 35.1-43.[address] [facility] Comment on above: Result Comment: Canc elled via OM: Order cancelled - Patient discharged Performed By: #### L 500.2500, L100.0100 ####[facility] [address] [place], [address] WBC Normal 4.4-11.[address] [facility] Comment on above: Result Comment: Canc elled via OM: Order cancelled - Patient discharged Performed By: #### L 500.2500, L100.0100 ####[facility] [address] [place], [address] Basic Metabolic Profile (BMP )on 06-17-2024 BUN Normal 7-[address] [facility] Comment on above: Result Comment: Canc elled via OM: Order cancelled - Patient discharged Performed By: #### L 100.0100, L500.2500 ####[facility] [address] [place], [address] BUN/CRE Normal 10-[address] [facility] Comment on above: Result Comment: Canc elled via OM: Order cancelled - Patient discharged Performed By: #### L 100.0100, L500.2500 ####[facility] [address] [place], [address] CA,Total Normal 8.5-10.[address] [facility] Comment on above: Result Comment: Canc elled via OM: Order cancelled - Patient discharged Performed By: #### L 100.0100, L500.2500 ####[facility] [address] [place], [address] CL Normal 98-[address] [facility] Comment on above: Result Comment: Canc elled via OM: Order cancelled - Patient discharged Performed By: #### L 100.0100, L500.2500 ####[facility] [address] [place], [address] CO2 Normal 21.0-32.[address] [facility] Comment on above: Result Comment: Canc elled via OM: Order cancelled - Patient discharged Performed By: #### L 100.0100, L500.2500 ####[facility] [address] [place], [address] CREAT,SERUM Normal 0.55-1.[address] [facility] Comment on above: Result Comment: Canc elled via OM: Order cancelled - Patient discharged Performed By: #### L 100.0100, L500.2500 ####[facility] [address] [place], [address] EST GFR Normal >[address] [facility] Comment on above: Result Comment: Canc elled via OM: Order cancelled - Patient discharged Performed By: #### L 100.0100, L500.2500 ####[facility] [address] [place], [address] EST GFR - AA Normal >[address] [facility] Comment on above: Result Comment: Canc elled via OM: Order cancelled - Patient discharged Performed By: #### L 100.0100, L500.2500 ####[facility] [address] [place], [address] GAP Normal 5-[address] [facility] Comment on above: Result Comment: Canc elled via OM: Order cancelled - Patient discharged Performed By: #### L 100.0100, L500.2500 ####[facility] [address] [place], [address] GLU Normal 74-[address] [facility] Comment on above: Result Comment: Canc elled via OM: Order cancelled - Patient discharged Performed By: #### L 100.0100, L500.2500 ####[facility] [address] [place], [address] Potassium Normal 3.5-5.[address] [facility] Comment on above: Result Comment: Canc elled via OM: Order cancelled - Patient discharged Performed By: #### L 100.0100, L500.2500 ####[facility] [address] [place], [address] Basic Metabolic Profile (BMP) Normal 136-[address] [facility] Comment on above: Result Comment: Canc elled via OM: Order cancelled - Patient discharged Performed By: #### L 100.0100, L500.2500 ####[facility] [address] [place], [address] CBC W/Diff, Automatedon 11-0 Absolute Neut Normal 2.0-7.[address] [facility] Comment on above: Result Comment: Canc elled via OM: Order cancelled - Patient discharged Performed By: #### L 100.0100, L500.2500 ####[facility] [address] [place], [address] HCT Normal 37-[address] [facility] Comment on above: Result Comment: Canc elled via OM: Order cancelled - Patient discharged Performed By: #### L 100.0100, L500.2500 ####[facility] [address] [place], [address] HGB Normal 12.0-15.[address] [facility] Comment on above: Result Comment: Canc elled via OM: Order cancelled - Patient discharged Performed By: #### L 100.0100, L500.2500 ####[facility] [address] [place], [address] MCH Normal 27.0-32.[address] [facility] Comment on above: Result Comment: Canc elled via OM: Order cancelled - Patient discharged Performed By: #### L 100.0100, L500.2500 ####[facility] [address] [place], [address] MCHC Normal 32-[address] [facility] Comment on above: Result Comment: Canc elled via OM: Order cancelled - Patient discharged Performed By: #### L 100.0100, L500.2500 ####[facility] [address] [place], [address] MCV Normal 81-[address] [facility] Comment on above: Result Comment: Canc elled via OM: Order cancelled - Patient discharged Performed By: #### L 100.0100, L500.2500 ####[facility] [address] [place], [address] NEUT% Normal 47-[address] [facility] Comment on above: Result Comment: Canc elled via OM: Order cancelled - Patient discharged Performed By: #### L 100.0100, L500.2500 ####[facility] [address] [place], [address] PLT Normal 150-[address] [facility] Comment on above: Result Comment: Canc elled via OM: Order cancelled - Patient discharged Performed By: #### L 100.0100, L500.2500 ####[facility] [address] [place], [address] RBC Normal 4.2-5.[address] [facility] Comment on above: Result Comment: Canc elled via OM: Order cancelled - Patient discharged Performed By: #### L 100.0100, L500.2500 ####[facility] [address] [place], [address] RDW CV Normal 11.6-14.[address] [facility] Comment on above: Result Comment: Canc elled via OM: Order cancelled - Patient discharged Performed By: #### L 100.0100, L500.2500 ####[facility] [address] [place], [address] RDW SD Normal 35.1-43.[address] [facility] Comment on above: Result Comment: Canc elled via OM: Order cancelled - Patient discharged Performed By: #### L 100.0100, L500.2500 ####[facility] [address] [place], [address] WBC Normal 4.4-11.[address] [facility] Comment on above: Result Comment: Canc elled via OM: Order cancelled - Patient discharged Performed By: #### L 100.0100, L500.2500 ####[facility] [address] [place], [address] Basic Metabolic Profile (BMP )on 06-16-2024 BUN Normal 7-[address] [facility] Comment on above: Result Comment: Canc elled via OM: Order cancelled - Patient discharged Performed By: #### L 100.0100, L500.2500 ####[facility] [address] [place], [address] BUN/CRE Normal 10-[address] [facility] Comment on above: Result Comment: Canc elled via OM: Order cancelled - Patient discharged Performed By: #### L 100.0100, L500.2500 ####[facility] [address] [place], [address] CA,Total Normal 8.5-10.[address] [facility] Comment on above: Result Comment: Canc elled via OM: Order cancelled - Patient discharged Performed By: #### L 100.0100, L500.2500 ####[facility] [address] [place], [address] CL Normal 98-[address] [facility] Comment on above: Result Comment: Canc elled via OM: Order cancelled - Patient discharged Performed By: #### L 100.0100, L500.2500 ####[facility] [address] [place], [address] CO2 Normal 21.0-32.[address] [facility] Comment on above: Result Comment: Canc elled via OM: Order cancelled - Patient discharged Performed By: #### L 100.0100, L500.2500 ####[facility] [address] [place], [address] CREAT,SERUM Normal 0.55-1.[address] [facility] Comment on above: Result Comment: Canc elled via OM: Order cancelled - Patient discharged Performed By: #### L 100.0100, L500.2500 ####[facility] [address] [place], [address] EST GFR Normal >[address] [facility] Comment on above: Result Comment: Canc elled via OM: Order cancelled - Patient discharged Performed By: #### L 100.0100, L500.2500 ####[facility] [address] [place], [address] EST GFR - AA Normal >[address] [facility] Comment on above: Result Comment: Canc elled via OM: Order cancelled - Patient discharged Performed By: #### L 100.0100, L500.2500 ####[facility] [address] [place], [address] GAP Normal 5-[address] [facility] Comment on above: Result Comment: Canc elled via OM: Order cancelled - Patient discharged Performed By: #### L 100.0100, L500.2500 ####[facility] [address] [place], [address] GLU Normal 74-[address] [facility] Comment on above: Result Comment: Canc elled via OM: Order cancelled - Patient discharged Performed By: #### L 100.0100, L500.2500 ####[facility] [address] [place], [address] Potassium Normal 3.5-5.[address] [facility] Comment on above: Result Comment: Canc elled via OM: Order cancelled - Patient discharged Performed By: #### L 100.0100, L500.2500 ####[facility] [address] [place], [address] Basic Metabolic Profile (BMP) Normal 136-[address] [facility] Comment on above: Result Comment: Canc elled via OM: Order cancelled - Patient discharged Performed By: #### L 100.0100, L500.2500 ####[facility] [address] [place], [address] CBC W/Diff, Automatedon 11-0 6-2023 Absolute Neut Normal 2.0-7.[address] [facility] Comment on above: Result Comment: Canc elled via OM: Order cancelled - Patient discharged Performed By: #### L 100.0100, L500.2500 ####[facility] [address] [place], [address] HCT Normal 37-[address] [facility] Comment on above: Result Comment: Canc elled via OM: Order cancelled - Patient discharged Performed By: #### L 100.0100, L500.2500 ####[facility] [address] [place], [address] HGB Normal 12.0-15.[address] [facility] Comment on above: Result Comment: Canc elled via OM: Order cancelled - Patient discharged Performed By: #### L 100.0100, L500.2500 ####[facility] [address] [place], [address] MCH Normal 27.0-32.[address] [facility] Comment on above: Result Comment: Canc elled via OM: Order cancelled - Patient discharged Performed By: #### L 100.0100, L500.2500 ####[facility] [address] [place], [address] MCHC Normal 32-[address] [facility] Comment on above: Result Comment: Canc elled via OM: Order cancelled - Patient discharged Performed By: #### L 100.0100, L500.2500 ####[facility] [address] [place], [address] MCV Normal 81-[address] [facility] Comment on above: Result Comment: Canc elled via OM: Order cancelled - Patient discharged Performed By: #### L 100.0100, L500.2500 ####[facility] [address] [place], [address] NEUT% Normal 47-[address] [facility] Comment on above: Result Comment: Canc elled via OM: Order cancelled - Patient discharged Performed By: #### L 100.0100, L500.2500 ####[facility] [address] [place], [address] PLT Normal 150-[address] [facility] Comment on above: Result Comment: Canc elled via OM: Order cancelled - Patient discharged Performed By: #### L 100.0100, L500.2500 ####[facility] [address] [place], [address] RBC Normal 4.2-5.[address] [facility] Comment on above: Result Comment: Canc elled via OM: Order cancelled - Patient discharged Performed By: #### L 100.0100, L500.2500 ####[facility] [address] [place], [address] RDW CV Normal 11.6-14.[address] [facility] Comment on above: Result Comment: Canc elled via OM: Order cancelled - Patient discharged Performed By: #### L 100.0100, L500.2500 ####[facility] [address] [place], [address] RDW SD Normal 35.1-43.[address] [facility] Comment on above: Result Comment: Canc elled via OM: Order cancelled - Patient discharged Performed By: #### L 100.0100, L500.2500 ####[facility] [address] [place], [address] WBC Normal 4.4-11.[address] [facility] Comment on above: Result Comment: Canc elled via OM: Order cancelled - Patient discharged Performed By: #### L 100.0100, L500.2500 ####[facility] [address] [place], [address] Basic Metabolic Profile (BMP )on 06-15-2024 BUN Normal 7-[address] [facility] Comment on above: Result Comment: Canc elled via OM: Order cancelled - Patient discharged Performed By: #### L 500.2500, L100.0100 ####[facility] [address] [place], [address] BUN/CRE Normal 10-[address] [facility] Comment on above: Result Comment: Canc elled via OM: Order cancelled - Patient discharged Performed By: #### L 500.2500, L100.0100 ####[facility] [address] [place], [address] CA,Total Normal 8.5-10.[address] [facility] Comment on above: Result Comment: Canc elled via OM: Order cancelled - Patient discharged Performed By: #### L 500.2500, L100.0100 ####[facility] [address] [place], [address] CL Normal 98-[address] [facility] Comment on above: Result Comment: Canc elled via OM: Order cancelled - Patient discharged Performed By: #### L 500.2500, L100.0100 ####[facility] [address] [place], [address] CO2 Normal 21.0-32.[address] [facility] Comment on above: Result Comment: Canc elled via OM: Order cancelled - Patient discharged Performed By: #### L 500.2500, L100.0100 ####[facility] [address] [place], [address] CREAT,SERUM Normal 0.55-1.[address] [facility] Comment on above: Result Comment: Canc elled via OM: Order cancelled - Patient discharged Performed By: #### L 500.2500, L100.0100 ####[facility] [address] [place], [address] EST GFR Normal >[address] [facility] Comment on above: Result Comment: Canc elled via OM: Order cancelled - Patient discharged Performed By: #### L 500.2500, L100.0100 ####[facility] [address] [place], [address] EST GFR - AA Normal >[address] [facility] Comment on above: Result Comment: Canc elled via OM: Order cancelled - Patient discharged Performed By: #### L 500.2500, L100.0100 ####[facility] [address] [place], [address] GAP Normal 5-[address] [facility] Comment on above: Result Comment: Canc elled via OM: Order cancelled - Patient discharged Performed By: #### L 500.2500, L100.0100 ####[facility] [address] [place], [address] GLU Normal 74-[address] [facility] Comment on above: Result Comment: Canc elled via OM: Order cancelled - Patient discharged Performed By: #### L 500.2500, L100.0100 ####[facility] [address] [place], [address] Potassium Normal 3.5-5.[address] [facility] Comment on above: Result Comment: Canc elled via OM: Order cancelled - Patient discharged Performed By: #### L 500.2500, L100.0100 ####[facility] [address] [place], [address] Basic Metabolic Profile (BMP) Normal 136-[address] [facility] Comment on above: Result Comment: Canc elled via OM: Order cancelled - Patient discharged Performed By: #### L 500.2500, L100.0100 ####[facility] [address] [place], [address] CBC W/Diff, Automatedon 11-0 5-4 Absolute Neut Normal 2.0-7.[address] [facility] Comment on above: Result Comment: Canc elled via OM: Order cancelled - Patient discharged Performed By: #### L 500.2500, L100.0100 ####[facility] [address] [place], [address] HCT Normal 37-[address] [facility] Comment on above: Result Comment: Canc elled via OM: Order cancelled - Patient discharged Performed By: #### L 500.2500, L100.0100 ####[facility] [address] [place], [address] HGB Normal 12.0-15.[address] [facility] Comment on above: Result Comment: Canc elled via OM: Order cancelled - Patient discharged Performed By: #### L 500.2500, L100.0100 ####[facility] [address] [place], [address] MCH Normal 27.0-32.[address] [facility] Comment on above: Result Comment: Canc elled via OM: Order cancelled - Patient discharged Performed By: #### L 500.2500, L100.0100 ####[facility] [address] [place], [address] MCHC Normal 32-[address] [facility] Comment on above: Result Comment: Canc elled via OM: Order cancelled - Patient discharged Performed By: #### L 500.2500, L100.0100 ####[facility] [address] [place], [address] MCV Normal 81-[address] [facility] Comment on above: Result Comment: Canc elled via OM: Order cancelled - Patient discharged Performed By: #### L 500.2500, L100.0100 ####[facility] [address] [place], [address] NEUT% Normal 47-[address] [facility] Comment on above: Result Comment: Canc elled via OM: Order cancelled - Patient discharged Performed By: #### L 500.2500, L100.0100 ####[facility] [address] [place], [address] PLT Normal 150-[address] [facility] Comment on above: Result Comment: Canc elled via OM: Order cancelled - Patient discharged Performed By: #### L 500.2500, L100.0100 ####[facility] [address] [place], [address] RBC Normal 4.2-5.[address] [facility] Comment on above: Result Comment: Canc elled via OM: Order cancelled - Patient discharged Performed By: #### L 500.2500, L100.0100 ####[facility] [address] [place], [address] RDW CV Normal 11.6-14.6 [facility] [facility] Comment on above: Result Comment: Canc elled via OM: Order cancelled - Patient discharged Performed By: #### L 500.2500, L100.0100 ####[facility] [address] [place], [address] RDW SD Normal 35.1-43.[address] [facility] Comment on above: Result Comment: Canc elled via OM: Order cancelled - Patient discharged Performed By: #### L 500.2500, L100.0100 ####[facility] [address] [place], [address] WBC Normal 4.4-11.[address] [facility] Comment on above: Result Comment: Canc elled via OM: Order cancelled - Patient discharged Performed By: #### L 500.2500, L100.0100 ####[facility] [address] [place], [address] Basic Metabolic Profile (BMP )on 06-14-2024 BUN/CRE 21.5 RATIO High 10-[address] [facility] Comment on above: Performed By: #### L 501.5200, L500.2500, L501.9520, L501.2300 ####[facility] [address] [place], [address] CA,Total 8.8 mg/dL Normal 8.5-10.[address] [facility] Comment on above: Performed By: #### L 501.5200, L500.2500, L501.9520, L501.2300 ####[facility] [address] [place], [address] Chloride [Moles/Vol] 110 mmol/L High 98-107 [facility] Comment on above: Performed By: #### L 501.5200, L500.2500, L501.9520, L501.2300 ####[facility] [address] [place], [address] CO2 [Moles/Vol] 27.0 mmol/L Normal 21.0-32.[address] [facility] Comment on above: Performed By: #### L 501.5200, L500.2500, L501.9520, L501.2300 ####[facility] [address] [place], [address] Creatinine [Mass/Vol] 0.65 mg/dL Normal 0.55-1.02 [facility] Comment on above: Result Comment: The validity of the calculated GFR GFRAA in patients over70 years has not been determined. Clinical correlation isessential. Performed By: #### L 501.5200, L500.2500, L501.9520, L501.2300 ####[facility] [address] [place], [address] ECRCL 78.00 ml/min Normal [facility] Comment on above: Performed By: #### L 501.5200, L500.2500, L501.9520, L501.2300 ####[facility] [address] [place], [address] EST GFR - AA 115 mL/min Normal >[address] [facility] Comment on above: Result Comment: Afri can Icelandic GFR Calc Performed By: #### L 501.5200, L500.2500, L501.9520, L501.2300 ####[facility] [address] [place], [address] GAP 5 Normal 5-[address] [facility] Comment on above: Performed By: #### L 501.5200, L500.2500, L501.9520, L501.2300 ####[facility] [address] [place], [address] GFR/1.73 sq M.predicted among non-blacks MDRD (S/P/Bld) [Vol rate/Area] 95 mL/min/{1.73_m2} Normal >60 [facility] Comment on above: Result Comment: Non- GFR Calc Performed By: #### L 501.5200, L500.2500, L501.9520, L501.2300 ####[facility] [address] [place], [address] Glucose [Mass/Vol] 111 mg/dL High 74-106 [facility] Comment on above: Result Comment: Fast ing Glucose result from 100 to 125 mg/dLsuggests IMPAIRED HOMEOSTASIS per A.D.A. criteria. Performed By: #### L 501.5200, L500.2500, L501.9520, L501.2300 ####[facility] [address] [place], [address] Potassium [Moles/Vol] 3.6 mmol/L Normal 3.5-5.1 [facility] Comment on above: Performed By: #### L 501.5200, L500.2500, L501.9520, L501.2300 ####[facility] [address] [place], [address] Sodium [Moles/Vol] 142 mmol/L Normal 136-145 [facility] Comment on above: Performed By: #### L 501.5200, L500.2500, L501.9520, L501.2300 ####[facility] [address] [place], [address] Urea nitrogen [Mass/Vol] 14 mg/dL Normal 7-[address] [facility] Comment on above: Performed By: #### L 501.5200, L500.2500, L501.9520, L501.2300 ####[facility] [address] [place], [address] CBC W/Diff, Automatedon 11-0 Absolute Lymph 3.85 X10 3/uL Normal 0.83-4.[address] [facility] Comment on above: Performed By: #### L 100.0100 ####[facility] [address] [place], [address] Absolute Neut 3.0 X10 3/uL Normal 2.0-7.[address] [facility] Comment on above: Performed By: #### L 100.0100 ####[facility] [address] [place], [address] Basophils/100 WBC (Bld) 0.5 % Normal 0-1 [facility] Comment on above: Performed By: #### L 100.0100 ####[facility] [address] [place], [address] Eosinophils/100 WBC (Bld) 2.2 % Normal 0-[address] [facility] Comment on above: Performed By: #### L 100.0100 ####[facility] [address] [place], [address] Erythrocyte distribution width (RBC) [Ratio] 12.8 % Normal 11.6-14.[address] [facility] Comment on above: Performed By: #### L 100.0100 ####[facility] [address] [place], [address] Hematocrit (Bld) [Volume fraction] 35.9 % Low 37-[address] [facility] Comment on above: Performed By: #### L 100.0100 ####[facility] [address] [place], [address] Hemoglobin (Bld) [Mass/Vol] 11.5 g/dL Low 12.0-15.[address] [facility] Comment on above: Performed By: #### L 100.0100 ####[facility] [address] [place], [address] IG% 0.300 Normal 0.0-0.[address] [facility] Comment on above: Result Comment: IG% - Immature Granulocytes (promyelocytes, myelocytes andmetamyelocytes) > 1% indicates that a LEFT SHIFT is Present. Performed By: #### L 100.0100 ####[facility] [address] [place], [address] Lymphocytes/100 WBC (Bld) 50.1 % High 19-[address] [facility] Comment on above: Performed By: #### L 100.0100 ####[facility] [address] [place], [address] MCH (RBC) [Entitic mass] 31.5 pg Normal 27.0-32.[address] [facility] Comment on above: Performed By: #### L 100.0100 ####[facility] [address] [place], [address] MCHC (RBC) [Mass/Vol] 32.0 g/dL Normal 32-36 [facility] Comment on above: Performed By: #### L 100.0100 ####[facility] [address] [place], [address] MCV (RBC) [Entitic vol] 98.4 fL Normal 81-99 [facility] Comment on above: Performed By: #### L 100.0100 ####[facility] [address] [place], [address] Monocytes/100 WBC (Bld) 7.3 % Normal 0-10 [facility] Comment on above: Performed By: #### L 100.0100 ####[facility] [address] [place], [address] Neutrophils/100 WBC (Bld) 39.6 % Low 47-[address] [facility] Comment on above: Performed By: #### L 100.0100 ####[facility] [address] [place], [address] Nucleated RBC (Bld) [#/Vol] 0 10*3/uL Normal 0-[address] [facility] Comment on above: Performed By: #### L 100.0100 ####[facility] [address] [place], [address] Platelet mean volume (Bld) [Entitic vol] 9.4 fL Normal 6.2-12.[address] [facility] Comment on above: Performed By: #### L 100.0100 ####[facility] [address] [place], [address] Platelets (Bld) [#/Vol] 312 10*3/uL Normal 150-[address] [facility] Comment on above: Performed By: #### L 100.0100 ####[facility] [address] [place], [address] RBC (Bld) [#/Vol] 3.65 10*6/uL Low 4.2-5.4 [facility] Comment on above: Performed By: #### L 100.0100 ####[facility] [address] [place], [address] RDW SD 46.0 fl High 35.1-43.[address] [facility] Comment on above: Performed By: #### L 100.0100 ####[facility] [address] [place], [address] WBC (Bld) [#/Vol] 7.7 10*3/uL Normal 4.4-11.0 [facility] Comment on above: Performed By: #### L 100.0100 ####[facility] [address] [place], [address] Magnesiumon 06-14-2024 Magnesium [Mass/Vol] 2.1 mg/dL Normal 1.6-2.6 [facility] Comment on above: Performed By: #### L 501.5200, L500.2500, L501.9520, L501.2300 ####[facility] [address] [place], [address] Phosphoruson 06-14-2024 Phosphate [Mass/Vol] 3.2 mg/dL Normal 2.5-4.9 [facility] Comment on above: Performed By: #### L 501.5200, L500.2500, L501.9520, L501.2300 ####[facility] [address] [place], [address] Thyroid Stim Hormone (TSH)on 06-14-2024 TSH 2.170 uIU/mL Normal 0.358-3.[address] [facility] Comment on above: Performed By: #### L 501.5200, L500.2500, L501.9520, L501.2300 ####[facility] [address] [place], [address] MRI BRAIN WITHOUT CONTRASTon 02-13-2024 MRI BRAIN [...] error, please notify the sender immediately at [phone] and permanently delete the original report and destroy any copies or printouts. Normal [facility] Absolute lymphocyte countOrd ered By: Cortez Leong on 11-27-2023 Lymphocytes Auto (Unsp spec) [#/Vol] 3.60 10*3/uL 0.83-4.[address] [facility] Automated lymphocyte count a s percentage of total leukocytesOrdered By: Cortez Leong on 11-27-2023 Lymphocytes/100 WBC Auto (Unsp spec) 45.5 % 19-[address] [facility] Basophil percentageOrdered B y: Cortez Leong on 11-27-2023 Basophils/100 WBC (Bld) 0.4 % 0-1 [facility] Bilirubin [Mass/Vol] 0.70 mg/dL 0.20-1.00 [facility] Comment on above: For patients on eltr ombopag therapy, use of Dimension [place] TBIL is not recommended. Chloride [Moles/Vol] 109 mmol/L 98-107 [facility] Eosinophils/100 WBC (Bld) 2.5 % 0-[address] [facility] Glucose [Mass/Vol] 98 mg/dL 74-106 [facility] Hemoglobin (Bld) [Mass/Vol] 11.6 g/dL 12.0-15.[address] [facility] Monocytes/100 WBC (Bld) 6.3 % 0-10 [facility] Neutrophils (Bld) [#/Vol] 3.6 10*3/uL 2.0-7.7 [facility] Neutrophils/100 WBC (Bld) 44.9 % 47-[address] [facility] Potassium [Moles/Vol] 3.4 mmol/L 3.5-5.1 [facility] Protein [Mass/Vol] 6.9 g/dL 6.4-8.2 [facility] Sodium [Moles/Vol] 141 mmol/L 136-145 [facility] WBC (Bld) [#/Vol] 7.9 10*3/uL 4.4-11.0 [facility] Determination of erythrocyte mean corpuscular volume (MCV)Ordered By: Cortez Leong on 11-27-2023 MCV (RBC) [Entitic vol] 99.4 fL 81-99 [facility] Erythrocyte distribution wid th ratioOrdered By: Cortez Leong on 11-27-2023 Erythrocyte distribution width (RBC) [Ratio] 13.2 % 11.6-14.[address] [facility] Erythrocyte distribution wid th standard deviationOrdered By: Cortez Leong on 11-27-2023 Erythrocyte distribution width (RBC) [Entitic vol] 48.2 fL 35.1-43.9 [facility] Hematocrit Auto (Bld) [Volum e fraction]Ordered By: Cortez Leong on 11-27-2023 Hematocrit (Bld) [Volume fraction] 35.6 % 37-[address] [facility] Immature granulocytes/100 WB C Auto (Bld)Ordered By: Cortez Leong on 11-27-2023 Immature granulocytes/100 WBC (Bld) 0.400 % 0.0-0.[address] [facility] Comment on above: IG% - Immature Granu locytes (promyelocytes, myelocytes and metamyelocytes) > 1% indicates that a LEFT SHIFT is Present. Laboratory - Chemistry and C hemistry - challengeOrdered By: Cortez Leong on 11-27-2023 Albumin/Globulin [Mass ratio] 1.4 {ratio} 0.9-2.[address] [facility] ALP [Catalytic activity/Vol] 91 U/L 45-[address] [facility] ALT [Catalytic activity/Vol] 16 U/L 13-[address] [facility] CO2 [Moles/Vol] 27.0 mmol/L 21.0-32.[address] [facility] Globulin (S) [Mass/Vol] 2.9 g/dL 2.2-4.2 [facility] Urea nitrogen/Creatinine [Mass ratio] 27.5 mg/mg 10-[address] [facility] Laboratory - Hematology and Cell countsOrdered By: Cortez Leong on 11-27-2023 MCH (RBC) [Entitic mass] 32.4 pg 27.0-32.[address] [facility] MCHC (RBC) [Mass/Vol] 32.6 g/dL 32-36 [facility] Nucleated RBC/100 WBC (Bld) [Ratio] 0 % 0-[address] [facility] Platelet mean volume (Bld) [Entitic vol] 9.6 fL 6.2-12.[address] [facility] Platelets (Bld) [#/Vol] 310 10*3/uL 150-[address] [facility] No Panel InformationOrdered By: Cortez Leong on 11-27-2023 Estimated GFR (MDRD) Amer 96 mL/min >[address] [facility] Comment on above: GFR Calc Estimated GFR (MDRD) Non-Af Amer 79 mL/min >[address] [facility] Comment on above: Non- GFR Calc RBC Auto (Bld) [#/Vol]Ordere d By: Cortez Leong on 11-27-2023 RBC (Bld) [#/Vol] 3.58 10*6/uL 4.2-5.4 [facility] Serum or plasma calcium sonali urement (mass/volume)Ordered By: Cortez Leong on 11-27-2023 Calcium [Mass/Vol] 8.9 mg/dL 8.5-10.1 [facility] Serum or plasma creatinine m easurement (mass/volume)Ordered By: Cortez Leong on 11-27-2023 Creatinine [Mass/Vol] 0.76 mg/dL 0.55-1.02 [facility] Comment on above: The validity of the calculated GFR & GFRAA in patients over 70 years has not been determined. Clinical correlation is essential. Serum or plasma urea nitroge n measurement (mass/volume)Ordered By: Cortez Leong on 11-27-2023 Urea nitrogen [Mass/Vol] 21 mg/dL 7-[address] [facility] Thin prep Papanicolaou smear with manual screeningOrdered By: Cortez Leong on 11-27-2023 Thin prep Papanicolaou smear with manual screening 4.0 g/dL 3.2-5.[address] [facility] Thin prep Papanicolaou smear with manual screening 15 U/L 15-[address] [facility] Thin prep Papanicolaou smear with manual screening 5 5-[address] [facility] Absolute lymphocyte countOrd ered By: Dontrell Torres on 11-14-2023 Lymphocytes Auto (Unsp spec) [#/Vol] 3.69 10*3/uL 0.83-4.[address] [facility] Albumin Elph [Mass/Vol]Order ed By: Dontrell Torres on 11-14-2023 Albumin [Mass/Vol] 4.1 g/dL 2.9-4.4 [facility] Automated lymphocyte count a s percentage of total leukocytesOrdered By: Dontrell Torres on 11-14-2023 Lymphocytes/100 WBC Auto (Unsp spec) 47.9 % 19-[address] [facility] Basophil percentageOrdered B y: Dontrell Torres on 11-14-2023 Basophils/100 WBC (Bld) 0.6 % 0-1 [facility] Bilirubin [Mass/Vol] 0.60 mg/dL 0.20-1.00 [facility] Comment on above: For patients on eltr ombopag therapy, use of Dimension [place] TBIL is not recommended. Chloride [Moles/Vol] 107 mmol/L 98-107 [facility] Eosinophils/100 WBC (Bld) 3.1 % 0-[address] [facility] Glucose [Mass/Vol] 100 mg/dL 74-106 [facility] Comment on above: Fasting Glucose resu lt from 100 to 125 mg/dL suggests IMPAIRED HOMEOSTASIS per A.D.A. criteria. Hemoglobin (Bld) [Mass/Vol] 11.4 g/dL 12.0-15.[address] [facility] LDH [Catalytic activity/Vol] 268 U/L 84-[address] [facility] Monocytes/100 WBC (Bld) 5.1 % 0-10 [facility] Neutrophils (Bld) [#/Vol] 3.3 10*3/uL 2.0-7.[address] [facility] Neutrophils/100 WBC (Bld) 43.0 % 47-[address] [facility] Potassium [Moles/Vol] 3.4 mmol/L 3.5-5.1 [facility] Protein [Mass/Vol] 7.3 g/dL 6.4-8.2 [facility] Sodium [Moles/Vol] 140 mmol/L 136-145 [facility] WBC (Bld) [#/Vol] 7.7 10*3/uL 4.4-11.0 [facility] Determination of erythrocyte mean corpuscular volume (MCV)Ordered By: Dontrell Torres on 11-14-2023 MCV (RBC) [Entitic vol] 100.6 fL 81-99 [facility] Erythrocyte distribution wid th ratioOrdered By: Dontrell Torres on 11-14-2023 Erythrocyte distribution width (RBC) [Ratio] 13.6 % 11.6-14.[address] [facility] Erythrocyte distribution wid th standard deviationOrdered By: Dontrell Torres on 11-14-2023 Erythrocyte distribution width (RBC) [Entitic vol] 49.9 fL 35.1-43.9 [facility] Hematocrit Auto (Bld) [Volum e fraction]Ordered By: Dontrell Torres on 11-14-2023 Hematocrit (Bld) [Volume fraction] 35.7 % 37-[address] [facility] Immature granulocytes/100 WB C Auto (Bld)Ordered By: Dontrell Torres on 11-14-2023 Immature granulocytes/100 WBC (Bld) 0.300 % 0.0-0.[address] [facility] Comment on above: IG% - Immature Granu locytes (promyelocytes, myelocytes and metamyelocytes) > 1% indicates that a LEFT SHIFT is Present. Interpretation of serum or p lasma protein pattern by immunofixation (narrative resultOrdered By: Dontrell Torres on 11-14-2023 Protein Fractions Immunofixation [place] [Interp] 0.2 g/dL Not Observed [facility] Laboratory - Chemistry and C hemistry - challengeOrdered By: Dontrell Torres on 11-14-2023 Albumin/Globulin [Mass ratio] 1.3 {ratio} 0.9-2.[address] [facility] ALP [Catalytic activity/Vol] 94 U/L 45-[address] [facility] ALT [Catalytic activity/Vol] 20 U/L 13-[address] [facility] CO2 [Moles/Vol] 28.0 mmol/L 21.0-32.[address] [facility] Urea nitrogen/Creatinine [Mass ratio] 25.7 mg/mg 10-[address] [facility] Laboratory - Hematology and Cell countsOrdered By: Dontrell Torres on 11-14-2023 MCH (RBC) [Entitic mass] 32.1 pg 27.0-32.[address] [facility] MCHC (RBC) [Mass/Vol] 31.9 g/dL 32-36 [facility] Nucleated RBC/100 WBC (Bld) [Ratio] 0 % 0-[address] [facility] Platelet mean volume (Bld) [Entitic vol] 9.1 fL 6.2-12.[address] [facility] Platelets (Bld) [#/Vol] 353 10*3/uL 150-[address] [facility] No Panel InformationOrdered By: Dontrell Torres on 11-14-2023 Addendum Document Comment . [facility] Comment on above: Protein electrophore sis scan will follow via computer,mail, or women's studies professor delivery. Estimated Creatinine Clearance Calc 78.25 ml/min [facility] Estimated GFR (MDRD) Amer 84 mL/min >[address] [facility] Comment on above: GFR Calc Estimated GFR (MDRD) Non-Af Amer 69 mL/min >[address] [facility] Comment on above: Non- GFR Calc Free Lambda Light Chains, Quant 19.2 mg/L 5.7-26.[address] [facility] Immunoglobulin M 29 mg/dL 26-[address] [facility] RBC Auto (Bld) [#/Vol]Ordere d By: Dontrell Torres on 11-14-2023 RBC (Bld) [#/Vol] 3.55 10*6/uL 4.2-5.4 [facility] Serum hqjae-[id number] measu rement by electrophoresisOrdered By: Dontrell Torres on 11-14-2023 Alpha 1 globulin Elph [Mass/Vol] 0.2 g/dL 0.0-0.[address] [facility] Alpha 1 globulin Elph [Mass/Vol] 0.6 g/dL 0.4-1.[address] [facility] Serum globulin measurement ( mass/volume)Ordered By: Dontrell Torres on 11-14-2023 Globulin (S) [Mass/Vol] 2.6 g/dL 2.2-3.9 [facility] Serum immunoglobulin kappa l ight chains/immunoglobulin lambda light chains mass ratioOrdered By: Dontrell Torres on 11-14-2023 Immunoglobulin light chains.kappa/Immunoglobul in light chains.lambda (S) [Mass ratio] 0.80 0.26-1.[address] [facility] Comment on above: Performed at: [address] [id number] Director: Brian Bautista PhD, Phone: [phone] Serum or plasma IgA measurem ent (mass/volume)Ordered By: Dontrell Torres on 11-14-2023 IgA [Mass/Vol] 264 mg/dL 87-[address] [facility] Serum or plasma IgG measurem ent (mass/volume)Ordered By: Dontrell Torres on 11-14-2023 IgG [Mass/Vol] 725 mg/dL [phone] [facility] Serum or plasma beta globuli n measurement by electrophoresis (mass/volume)Ordered By: Dontrell Torres on 11-14-2023 Beta globulin Elph [Mass/Vol] 1.1 g/dL 0.7-1.[address] [facility] Serum or plasma calcium sonali urement (mass/volume)Ordered By: Dontrell Torres on 11-14-2023 Calcium [Mass/Vol] 9.1 mg/dL 8.5-10.1 [facility] Serum or plasma creatinine m easurement (mass/volume)Ordered By: Dontrell Torres on 11-14-2023 Creatinine [Mass/Vol] 0.86 mg/dL 0.55-1.02 [facility] Comment on above: The validity of the calculated GFR & GFRAA in patients over 70 years has not been determined. Clinical correlation is essential. Serum or plasma gamma globul in measurement by electrophoresis (mass/volume)Ordered By: Dontrell Torres on 11-14-2023 Gamma globulin Elph [Mass/Vol] 0.7 g/dL 0.4-1.[address] [facility] Serum or plasma immunoelectr ophoresis interpretation (nominal result)Ordered By: Dontrell Torres on 11-14-2023 Interpretation IEP [Interp] Comment . [facility] Comment on above: Immunofixation shows IgG monoclonal protein with lambdalight chain specificity. Serum or plasma immunoglobul in kappa light chains measurement (mass/volume)Ordered By: Dontrell Torres on 11-14-2023 Immunoglobulin light chains.kappa [Mass/Vol] 15.3 mg/L 3.3-19.[address] [facility] Serum or plasma urea nitroge n measurement (mass/volume)Ordered By: Dontrell Torres on 11-14-2023 Urea nitrogen [Mass/Vol] 22 mg/dL 7-[address] [facility] Thin prep Papanicolaou smear with manual screeningOrdered By: Dontrell Torres on 11-14-2023 Thin prep Papanicolaou smear with manual screening 4.1 g/dL 3.2-5.[address] [facility] Thin prep Papanicolaou smear with manual screening 18 U/L 15-[address] [facility] Thin prep Papanicolaou smear with manual screening 5 5-[address] [facility] Thin prep Papanicolaou smear with manual screening 1.6 0.7-1.[address] [facility] Total protein bloodOrdered B y: Dontrell Torres on 11-14-2023 Protein [Mass/Vol] 6.7 g/dL 6.0-8.5 [facility] Absolute lymphocyte countOrd ered By: Marycarmen Stevens on 10-14-2023 Lymphocytes Auto (Unsp spec) [#/Vol] 3.34 10*3/uL 0.83-4.[address] [facility] Automated lymphocyte count a s percentage of total leukocytesOrdered By: Marycarmen Stevens on 10-14-2023 Lymphocytes/100 WBC Auto (Unsp spec) 46.8 % 19-[address] [facility] Basophil percentageOrdered B y: Marycarmen Stevens on 10-14-2023 Basophils/100 WBC (Bld) 0.6 % 0-1 [facility] Bilirubin [Mass/Vol] 0.50 mg/dL 0.20-1.00 [facility] Comment on above: For patients on eltr ombopag therapy, use of Dimension [place] TBIL is not recommended. Chloride [Moles/Vol] 110 mmol/L 98-107 [facility] Eosinophils/100 WBC (Bld) 4.1 % 0-[address] [facility] Glucose [Mass/Vol] 111 mg/dL 74-106 [facility] Comment on above: Fasting Glucose resu lt from 100 to 125 mg/dL suggests IMPAIRED HOMEOSTASIS per A.D.A. criteria. Hemoglobin (Bld) [Mass/Vol] 10.7 g/dL 12.0-15.[address] [facility] Monocytes/100 WBC (Bld) 7.0 % 0-10 [facility] Neutrophils (Bld) [#/Vol] 2.9 10*3/uL 2.0-7.[address] [facility] Neutrophils/100 WBC (Bld) 41.1 % 47-[address] [facility] Potassium [Moles/Vol] 3.6 mmol/L 3.5-5.1 [facility] Protein [Mass/Vol] 6.4 g/dL 6.4-8.2 [facility] Sodium [Moles/Vol] 144 mmol/L 136-145 [facility] WBC (Bld) [#/Vol] 7.1 10*3/uL 4.4-11.0 [facility] Determination of erythrocyte mean corpuscular volume (MCV)Ordered By: Marycarmen Stevens on 10-14-2023 MCV (RBC) [Entitic vol] 98.8 fL 81-99 [facility] Erythrocyte distribution wid th ratioOrdered By: Marycarmen Stevens on 10-14-2023 Erythrocyte distribution width (RBC) [Ratio] 13.2 % 11.6-14.[address] [facility] Erythrocyte distribution wid th standard deviationOrdered By: Marycarmen Stevens on 10-14-2023 Erythrocyte distribution width (RBC) [Entitic vol] 47.5 fL 35.1-43.9 [facility] Hematocrit Auto (Bld) [Volum e fraction]Ordered By: Marycarmen Stevens on 10-14-2023 Hematocrit (Bld) [Volume fraction] 34.2 % 37-[address] [facility] Immature granulocytes/100 WB C Auto (Bld)Ordered By: Marycarmen Stevens on 10-14-2023 Immature granulocytes/100 WBC (Bld) 0.400 % 0.0-0.[address] [facility] Comment on above: IG% - Immature Granu locytes (promyelocytes, myelocytes and metamyelocytes) > 1% indicates that a LEFT SHIFT is Present. Laboratory - Chemistry and C hemistry - challengeOrdered By: Marycarmen Stevens on 10-14-2023 Albumin/Globulin [Mass ratio] 1.4 {ratio} 0.9-2.[address] [facility] ALP [Catalytic activity/Vol] 82 U/L 45-[address] [facility] ALT [Catalytic activity/Vol] 17 U/L 13-[address] [facility] CO2 [Moles/Vol] 27.0 mmol/L 21.0-32.[address] [facility] Globulin (S) [Mass/Vol] 2.7 g/dL 2.2-4.2 [facility] Urea nitrogen/Creatinine [Mass ratio] 27.1 mg/mg 10-[address] [facility] Laboratory - Hematology and Cell countsOrdered By: Marycarmen Stevens on 10-14-2023 MCH (RBC) [Entitic mass] 30.9 pg 27.0-32.[address] [facility] MCHC (RBC) [Mass/Vol] 31.3 g/dL 32-36 [facility] Nucleated RBC/100 WBC (Bld) [Ratio] 0 % 0-[address] [facility] Platelet mean volume (Bld) [Entitic vol] 9.3 fL 6.2-12.[address] [facility] Platelets (Bld) [#/Vol] 336 10*3/uL 150-[address] [facility] No Panel InformationOrdered By: Marycarmen Stevens on 10-14-2023 Estimated GFR (MDRD) Amer 85 mL/min >[address] [facility] Comment on above: GFR Calc Estimated GFR (MDRD) Non-Af Amer 70 mL/min >[address] [facility] Comment on above: Non- GFR Calc RBC Auto (Bld) [#/Vol]Ordere d By: Marycarmen Stevens on 10-14-2023 RBC (Bld) [#/Vol] 3.46 10*6/uL 4.2-5.4 [facility] Serum or plasma calcium sonali urement (mass/volume)Ordered By: Marycarmen Stevens on 10-14-2023 Calcium [Mass/Vol] 8.9 mg/dL 8.5-10.1 [facility] Serum or plasma creatinine m easurement (mass/volume)Ordered By: Marycarmen Stevens on 10-14-2023 Creatinine [Mass/Vol] 0.85 mg/dL 0.55-1.02 [facility] Comment on above: The validity of the calculated GFR & GFRAA in patients over 70 years has not been determined. Clinical correlation is essential. Serum or plasma urea nitroge n measurement (mass/volume)Ordered By: Marycarmen Stevens on 10-14-2023 Urea nitrogen [Mass/Vol] 23 mg/dL 7-[address] [facility] Thin prep Papanicolaou smear with manual screeningOrdered By: Marycarmenjag Stevens on 10-14-2023 Thin prep Papanicolaou smear with manual screening 3.7 g/dL 3.2-5.[address] [facility] Thin prep Papanicolaou smear with manual screening 18 U/L 15-[address] [facility] Thin prep Papanicolaou smear with manual screening 7 5-[address] [facility] Basophil percentageOrdered B y: Neema Kaba on 09-02-2023 Bilirubin [Mass/Vol] 0.50 mg/dL 0.20-1.00 [facility] Comment on above: For patients on eltr ombopag therapy, use of Dimension [place] TBIL is not recommended. Chloride [Moles/Vol] 109 mmol/L 98-107 [facility] Cholesterol [Mass/Vol] 178 mg/dL <200 [facility] Comment on above: <200 mg/dL Desirable 200-240 mg/dL Borderline >240 mg/dL High Risk Glucose [Mass/Vol] 95 mg/dL 74-106 [facility] Potassium [Moles/Vol] 3.8 mmol/L 3.5-5.1 [facility] Protein [Mass/Vol] 6.9 g/dL 6.4-8.2 [facility] Sodium [Moles/Vol] 139 mmol/L 136-145 [facility] Triglyceride [Mass/Vol] 168 mg/dL <199 [facility] Comment on above: The drugs N-Acetylcy steine and Metamizole may falsely depress this assay.Serum Triglycerides Reference Interval Normal <150 mg/dL Borderline high 150 - 199 mg/dL High 200 - 499 mg/dL Very High > or = 500 mg/dL High density lipoprotein (HD L) measurementOrdered By: Neema Kaba on 09-02-2023 Cholesterol in HDL (Body fld) [Mass/Vol] 55 mg/dL >[address] [facility] Comment on above: The drugs N-Acetylcy steine and Metamizole may falsely depress this assay. Reference Range HDL <40 mg/dL Low HDL Cholesterol HDL >or= 60 mg/dL High HDL Cholesterol Laboratory - Chemistry and C hemistry - challengeOrdered By: Neema Kaba on 09-02-2023 Albumin/Globulin [Mass ratio] 1.2 {ratio} 0.9-2.[address] [facility] ALP [Catalytic activity/Vol] 82 U/L 45-[address] [facility] ALT [Catalytic activity/Vol] 17 U/L 13-[address] [facility] CO2 [Moles/Vol] 26.0 mmol/L 21.0-32.[address] [facility] Globulin (S) [Mass/Vol] 3.2 g/dL 2.2-4.2 [facility] Urea nitrogen/Creatinine [Mass ratio] 21.9 mg/mg 10-[address] [facility] Low density lipoprotein (LDL ) cholesterol measurementOrdered By: Neema Kaba on 09-02-2023 Cholesterol in LDL (Body fld) [Moles/Vol] 89 mg/dL 0-[address] [facility] No Panel InformationOrdered By: Neema Kaba on 09-02-2023 Estimated GFR (MDRD) Amer 101 mL/min >[address] [facility] Comment on above: GFR Calc Estimated GFR (MDRD) Non-Af Amer 84 mL/min >[address] [facility] Comment on above: Non- GFR Calc Free Triiodothyronine (T3) pg/dL 2.4 pg/mL 2.18-3.[address] [facility] Serum or plasma calcium sonali urement (mass/volume)Ordered By: Neema Kaba on 09-02-2023 Calcium [Mass/Vol] 9.4 mg/dL 8.5-10.1 [facility] Serum or plasma creatinine m easurement (mass/volume)Ordered By: Neema Kaba on 09-02-2023 Creatinine [Mass/Vol] 0.73 mg/dL 0.55-1.02 [facility] Comment on above: The validity of the calculated GFR & GFRAA in patients over 70 years has not been determined. Clinical correlation is essential. Serum or plasma thyroid stim ulating hormone (TSH) measurement (units/volume)Ordered By: Neemaalihsa Kaba on 09-02-2023 TSH Qn 2.16 uIU/mL 0.358-3.[address] [facility] Serum or plasma urea nitroge n measurement (mass/volume)Ordered By: [facility] Radhajuan on 09-02-2023 Urea nitrogen [Mass/Vol] 16 mg/dL 7-[address] [facility] Thin prep Papanicolaou smear with manual screeningOrdered By: Neema Ragjuan on 09-02-2023 Thin prep Papanicolaou smear with manual screening 3.7 g/dL 3.2-5.[address] [facility] Thin prep Papanicolaou smear with manual screening 15 U/L 15-[address] [facility] Thin prep Papanicolaou smear with manual screening 4 5-[address] [facility] Thin prep Papanicolaou smear with manual screening 0.87 ng/dL 0.76-1.[address] [facility] Very low density lipoprotein (VLDL) cholesterol measurementOrdered By: Neemaalisha Kaba on 09-02-2023 Cholesterol in VLDL Calc [Moles/Vol] 34 mg/dL 5-[address] [facility] Whole blood hemoglobin A1c/t otal hemoglobin ratio (mass fraction)Ordered By: Neema Kaba on 09-02-2023 HbA1c (Bld) [Mass fraction] 4.9 % 3.8-5.[address] [facility] Comment on above: Normal < 5.7 % Predi abetic 5.7 - 6.4 % Diabetic >or= 6.5 % Please note range changes. Absolute lymphocyte countOrd ered By: Marycarmen Stevens on 07-09-2023 Lymphocytes Auto (Unsp spec) [#/Vol] 3.97 10*3/uL 0.83-4.[address] [facility] Basophil percentageOrdered B y: Marycarmen Stevens on 07-09-2023 Basophils/100 WBC (Bld) 0.7 % 0-1 [facility] Bilirubin [Mass/Vol] 0.40 mg/dL 0.20-1.00 [facility] Comment on above: For patients on eltr ombopag therapy, use of Dimension [place] TBIL is not recommended. Chloride [Moles/Vol] 109 mmol/L 98-107 [facility] Eosinophils/100 WBC (Bld) 3.4 % 0-[address] [facility] Glucose [Mass/Vol] 109 mg/dL 74-106 [facility] Comment on above: Fasting Glucose resu lt from 100 to 125 mg/dL suggests IMPAIRED HOMEOSTASIS per A.D.A. criteria. Neutrophils (Bld) [#/Vol] 4.7 10*3/uL 2.0-7.[address] [facility] Neutrophils/100 WBC (Bld) 48.8 % 47-[address] [facility] Potassium [Moles/Vol] 3.3 mmol/L 3.5-5.1 [facility] Comment on above: Slight Hemolysis, Re sult may be falsely increased. Protein [Mass/Vol] 7.0 g/dL 6.4-8.2 [facility] Sodium [Moles/Vol] 141 mmol/L 136-145 [facility] WBC (Bld) [#/Vol] 9.6 10*3/uL 4.4-11.0 [facility] Blood erythrocytes count (nu mber/volume)Ordered By: Marycarmen Stevens on 07-09-2023 RBC (Bld) [#/Vol] 4.16 10*6/uL 4.2-5.4 [facility] Blood hemoglobin measurement (mass/volume)Ordered By: Marycarmen Stevens on 07-09-2023 Hemoglobin (Bld) [Mass/Vol] 13.1 g/dL 12.0-15.[address] [facility] Blood lymphocytes/100 leukoc ytesOrdered By: Marycarmen Stevens on 07-09-2023 Lymphocytes/100 WBC (Bld) 41.4 % 19-[address] [facility] Blood monocytes/100 leukocyt esOrdered By: Marycarmen Stevens on 07-09-2023 Monocytes/100 WBC (Bld) 5.5 % 0-10 [facility] Blood platelet mean volumeOr dered By: Marycarmen Stevens on 07-09-2023 Platelet mean volume (Bld) [Entitic vol] 8.9 fL 6.2-12.[address] [facility] Determination of erythrocyte mean corpuscular volume (MCV)Ordered By: Marycarmenjag Stevens on 07-09-2023 MCV (RBC) [Entitic vol] 96.6 fL 81-99 [facility] Hematocrit Auto (Bld) [Volum e fraction]Ordered By: [facility] Rodney on 07-09-2023 Hematocrit (Bld) [Volume fraction] 40.2 % 37-[address] [facility] Laboratory - Chemistry and C hemistry - challengeOrdered By: [facility]2023 ALP [Catalytic activity/Vol] 81 U/L 45-[address] [facility] ALT [Catalytic activity/Vol] 21 U/L 13-[address] [facility] CO2 [Moles/Vol] 28.0 mmol/L 21.0-32.[address] [facility] Globulin (S) [Mass/Vol] 3.3 g/dL 2.2-4.2 [facility] Urea nitrogen/Creatinine [Mass ratio] 29.6 mg/mg 10-[address] [facility] Laboratory - Hematology and Cell countsOrdered By: [facility] on 07-09-2023 Erythrocyte distribution width (RBC) [Entitic vol] 47.0 fL 35.1-43.9 [facility] Erythrocyte distribution width (RBC) [Ratio] 13.1 % 11.6-14.[address] [facility] Immature granulocytes/100 WBC (Bld) 0.200 % 0.0-0.[address] [facility] Comment on above: IG% - Immature Granu locytes (promyelocytes, myelocytes and metamyelocytes) > 1% indicates that a LEFT SHIFT is Present. MCH (RBC) [Entitic mass] 31.5 pg 27.0-32.[address] [facility] Nucleated RBC/100 WBC (Bld) [Ratio] 0 % 0-[address] [facility] MCHC Auto (RBC) [Mass/Vol]Or dered By: [facility] Rodney on 07-09-2023 MCHC (RBC) [Mass/Vol] 32.6 g/dL 32-36 [facility] No Panel InformationOrdered By: Marycarmen Stevens on 07-09-2023 Estimated GFR (MDRD) Amer 78 mL/min >[address] [facility] Comment on above: GFR Calc Estimated GFR (MDRD) Non-Af Amer 65 mL/min >[address] [facility] Comment on above: Non- GFR Calc Platelets bldOrdered By: Willy Stevens on 07-09-2023 Platelets (Bld) [#/Vol] 347 10*3/uL 150-[address] [facility] Serum or plasma albumin sonali urement (mass/volume)Ordered By: Marycarmen Stevens on 07-09-2023 Albumin [Mass/Vol] 3.7 g/dL 3.2-5.0 [facility] Serum or plasma albumin/glob ulin mass ratioOrdered By: Marycarmen Stevens on 07-09-2023 Albumin/Globulin [Mass ratio] 1.1 {ratio} 0.9-2.[address] [facility] Serum or plasma calcium sonali urement (mass/volume)Ordered By: Marycarmen Stevens on 07-09-2023 Calcium [Mass/Vol] 9.4 mg/dL 8.5-10.1 [facility] Serum or plasma creatinine m easurement (mass/volume)Ordered By: Marycarmen Stevens on 07-09-2023 Creatinine [Mass/Vol] 0.91 mg/dL 0.55-1.02 [facility] Comment on above: The validity of the calculated GFR & GFRAA in patients over 70 years has not been determined. Clinical correlation is essential. Serum or plasma urea nitroge n measurement (mass/volume)Ordered By: Marycarmen Stevens on 07-09-2023 Urea nitrogen [Mass/Vol] 27 mg/dL 7-[address] [facility] Thin prep Papanicolaou smear with manual screeningOrdered By: Marycarmen Stevens on 07-09-2023 Thin prep Papanicolaou smear with manual screening 18 U/L 15-[address] [facility] Comment on above: Slight Hemolysis, Re sult may be falsely increased. Thin prep Papanicolaou smear with manual screening 4 5-[address] [facility] Absolute lymphocyte countOrd ered By: Vahe Nobles on 06-03-2023 Lymphocytes Auto (Unsp spec) [#/Vol] 4.82 10*3/uL 0.83-4.[address] [facility] Basophil percentageOrdered B y: Vahe Nobles on 06-03-2023 Basophils/100 WBC (Bld) 0.7 % 0-1 [facility] Bilirubin [Mass/Vol] 0.30 mg/dL 0.20-1.00 [facility] Comment on above: For patients on eltr ombopag therapy, use of Dimension [place] TBIL is not recommended. Chloride [Moles/Vol] 108 mmol/L 98-107 [facility] Eosinophils/100 WBC (Bld) 1.8 % 0-[address] [facility] Glucose [Mass/Vol] 99 mg/dL 74-106 [facility] Neutrophils (Bld) [#/Vol] 4.2 10*3/uL 2.0-7.[address] [facility] Neutrophils/100 WBC (Bld) 42.0 % 47-[address] [facility] Potassium [Moles/Vol] 3.3 mmol/L 3.5-5.1 [facility] Protein [Mass/Vol] 7.1 g/dL 6.4-8.2 [facility] Sodium [Moles/Vol] 139 mmol/L 136-145 [facility] WBC (Bld) [#/Vol] 10.0 10*3/uL 4.4-11.0 [facility] Blood erythrocytes count (nu mber/volume)Ordered By: Vaeh Nobles on 06-03-2023 RBC (Bld) [#/Vol] 4.20 10*6/uL 4.2-5.4 [facility] Blood hemoglobin measurement (mass/volume)Ordered By: Vahe Nobles on 06-03-2023 Hemoglobin (Bld) [Mass/Vol] 12.7 g/dL 12.0-15.[address] [facility] Blood lymphocytes/100 leukoc ytesOrdered By: Vahe Nobles on 06-03-2023 Lymphocytes/100 WBC (Bld) 48.2 % 19-[address] [facility] Blood monocytes/100 leukocyt esOrdered By: Vahe Nobles on 06-03-2023 Monocytes/100 WBC (Bld) 6.3 % 0-10 [facility] Blood platelet mean volumeOr dered By: Vahe Nobles on 06-03-2023 Platelet mean volume (Bld) [Entitic vol] 8.8 fL 6.2-12.[address] [facility] Determination of erythrocyte mean corpuscular volume (MCV)Ordered By: Vahe Nobles on 06-03-2023 MCV (RBC) [Entitic vol] 95.0 fL 81-99 [facility] Erythrocyte sedimentation ra teOrdered By: Vahe Nobles on 06-03-2023 ESR (Bld) [Velocity] 16 mm/h 0-30 [facility] Hematocrit Auto (Bld) [Volum e fraction]Ordered By: Vahelinda Nobles on 06-03-2023 Hematocrit (Bld) [Volume fraction] 39.9 % 37-[address] [facility] Laboratory - Chemistry and C hemistry - challengeOrdered By: Vahelinda Nobles on 06-03-2023 ALP [Catalytic activity/Vol] 87 U/L 45-[address] [facility] ALT [Catalytic activity/Vol] 28 U/L 13-[address] [facility] CO2 [Moles/Vol] 29.0 mmol/L 21.0-32.[address] [facility] Globulin (S) [Mass/Vol] 3.7 g/dL 2.2-4.2 [facility] Magnesium [Mass/Vol] 2.3 mg/dL 1.6-2.6 [facility] Urea nitrogen/Creatinine [Mass ratio] 31.2 mg/mg 10-[address] [facility] Laboratory - Hematology and Cell countsOrdered By: Vahe Nobles on 06-03-2023 Erythrocyte distribution width (RBC) [Entitic vol] 48.5 fL 35.1-43.9 [facility] Erythrocyte distribution width (RBC) [Ratio] 14.0 % 11.6-14.[address] [facility] Immature granulocytes/100 WBC (Bld) 1.000 % 0.0-0.[address] [facility] Comment on above: IG% - Immature Granu locytes (promyelocytes, myelocytes and metamyelocytes) > 1% indicates that a LEFT SHIFT is Present. MCH (RBC) [Entitic mass] 30.2 pg 27.0-32.[address] [facility] Nucleated RBC/100 WBC (Bld) [Ratio] 0 % 0-5 [facility] ([facility]BC) [Mass/Vol]Or dered By: Vahe Nobles on 06-03-2023 MCHC (RBC) [Mass/Vol] 31.8 g/dL 32-36 [facility] No Panel InformationOrdered By: Vahe Nobles on 06-03-2023 Estimated GFR (MDRD) Amer 96 mL/min >[address] [facility] Comment on above: GFR Calc Estimated GFR (MDRD) Non-Af Amer 79 mL/min >[address] [facility] Comment on above: Non- GFR Calc Platelets bldOrdered By: Alex Nobles on 06-03-2023 Platelets (Bld) [#/Vol] 403 10*3/uL 150-[address] [facility] Serum or plasma C reactive p rotein measurement (mass/volume)Ordered By: Vahe Nobles on 06-03-2023 CRP [Mass/Vol] mg/L 0.0-3.[address] [facility] Comment on above: C-Reactive Protein ( CRP) provides useful information for thediagnosis, therapy and monitoring of inflammatory processesand associated diseases. For the evaluation of Relative Riskfor Cardiovascular Disease, a High Sensitivity CRP (HSCRP)should be ordered. Serum or plasma albumin sonali urement (mass/volume)Ordered By: Vahe Nobles on 06-03-2023 Albumin [Mass/Vol] 3.4 g/dL 3.2-5.0 [facility] Serum or plasma albumin/glob ulin mass ratioOrdered By: Vahe Nobles on 06-03-2023 Albumin/Globulin [Mass ratio] 0.9 {ratio} 0.9-2.[address] [facility] Serum or plasma calcium sonali urement (mass/volume)Ordered By: Vahe Nobles on 06-03-2023 Calcium [Mass/Vol] 8.9 mg/dL 8.5-10.1 [facility] Serum or plasma creatinine m easurement (mass/volume)Ordered By: Vahe Nobles on 06-03-2023 Creatinine [Mass/Vol] 0.77 mg/dL 0.55-1.02 [facility] Comment on above: The validity of the calculated GFR & GFRAA in patients over 70 years has not been determined. Clinical correlation is essential. Serum or plasma urea nitroge n measurement (mass/volume)Ordered By: Vahe Nobles on 06-03-2023 Urea nitrogen [Mass/Vol] 24 mg/dL 7-[address] [facility] Thin prep Papanicolaou smear with manual screeningOrdered By: Vahe Nobles on 06-03-2023 Thin prep Papanicolaou smear with manual screening 18 U/L 15-[address] [facility] Thin prep Papanicolaou smear with manual screening 2 5-[address] [facility] Basophil percentageOrdered B y: Neema Kaba on 05-16-2023 Bilirubin [Mass/Vol] 0.50 mg/dL 0.20-1.00 [facility] Comment on above: For patients on eltr ombopag therapy, use of Dimension [place] TBIL is not recommended. Chloride [Moles/Vol] 105 mmol/L 98-107 [facility] Glucose [Mass/Vol] 97 mg/dL 74-106 [facility] Potassium [Moles/Vol] 3.2 mmol/L 3.5-5.1 [facility] Protein [Mass/Vol] 7.0 g/dL 6.4-8.2 [facility] Sodium [Moles/Vol] 140 mmol/L 136-145 [facility] Laboratory - Chemistry and C hemistry - challengeOrdered By: Neema Kaba on 05-16-2023 ALP [Catalytic activity/Vol] 95 U/L 45-[address] [facility] ALT [Catalytic activity/Vol] 22 U/L 13-[address] [facility] CO2 [Moles/Vol] 29.0 mmol/L 21.0-32.[address] [facility] Globulin (S) [Mass/Vol] 3.5 g/dL 2.2-4.2 [facility] Urea nitrogen/Creatinine [Mass ratio] 31.1 mg/mg 10-[address] [facility] No Panel InformationOrdered By: Neema Kaba on 05-16-2023 Adrenocorticotropic Hormone 17.7 pg/mL 7.2-63.[address] [facility] Comment on above: ACTH reference inter scot for samples collected between 7 and10 AM.Performed at: [facility] [id number] Director: Brian Bautista PhD, Phone: [phone] Estimated GFR (MDRD) Amer 83 mL/min >[address] [facility] Comment on above: GFR Calc Estimated GFR (MDRD) Non-Af Amer 68 mL/min >[address] [facility] Comment on above: Non- GFR Calc Free Triiodothyronine (T3) pg/dL 3.0 pg/mL 2.18-3.[address] [facility] Thyroid Stimulating Hormone (TSH) 4.55 uIU/mL 0.358-3.[address] [facility] Urine Microalbumin/Creatinine Ratio 6.7 mg/g CRE <[address] [facility] Vitamin D 25-Hydroxy 44.8 ng/mL [facility] Comment on above: Vitamin D 25(OH) Sta tus Range Deficiency <20 ng/mL (50nmol/L) Insufficiency 20 - 30 ng/mL (50 - 75 nmol/L) Sufficiency 30 - 100 ng/mL (75 - 250 nmol/L) Toxicity >100 ng/mL (>250 nmol/L) Serum or plasma albumin sonali urement (mass/volume)Ordered By: Neema Kaba on 05-16-2023 Albumin [Mass/Vol] 3.5 g/dL 3.2-5.0 [facility] Serum or plasma albumin/glob ulin mass ratioOrdered By: Neemaalisha Kaba on 05-16-2023 Albumin/Globulin [Mass ratio] 1.0 {ratio} 0.9-2.4 [facility] Serum or plasma calcium sonali urement (mass/volume)Ordered By: Neemaalisha Kaba on 05-16-2023 Calcium [Mass/Vol] 8.5 mg/dL 8.5-10.1 [facility] Serum or plasma creatinine m easurement (mass/volume)Ordered By: Neemaalisha Kaba on 05-16-2023 Creatinine [Mass/Vol] 0.87 mg/dL 0.55-1.02 [facility] Comment on above: The validity of the calculated GFR & GFRAA in patients over 70 years has not been determined. Clinical correlation is essential. Serum or plasma urea nitroge n measurement (mass/volume)Ordered By: Neema Kaba on 05-16-2023 Urea nitrogen [Mass/Vol] 27 mg/dL 7-[address] [facility] Thin prep Papanicolaou smear with manual screeningOrdered By: Neema Kaba on 05-16-2023 Thin prep Papanicolaou smear with manual screening 14 U/L 15-[address] [facility] Thin prep Papanicolaou smear with manual screening 6 5-[address] [facility] Thin prep Papanicolaou smear with manual screening 10.4 mg/L NO RANGE EST. [facility] Urine creatinine measurement (mass/volume)Ordered By: Neema Kaba on 05-16-2023 Creatinine (U) [Mass/Vol] 155.00 mg/dL NO RANGE EST. [facility] Whole blood hemoglobin A1c/t otal hemoglobin ratio (mass fraction)Ordered By: Neema Kaba on 05-16-2023 HbA1c (Bld) [Mass fraction] 5.7 % 3.8-5.[address] [facility] Comment on above: Normal < 5.7 % Predi abetic 5.7 - 6.4 % Diabetic >or= 6.5 % Please note range changes. Absolute lymphocyte countOrd ered By: Marycarmen Stevens on 04-16-2023 Lymphocytes Auto (Unsp spec) [#/Vol] 4.00 10*3/uL 0.83-4.[address] [facility] Basophil percentageOrdered B y: Marycarmen Stevens on 04-16-2023 Basophils/100 WBC (Bld) 0.5 % 0-1 [facility] Bilirubin [Mass/Vol] 0.50 mg/dL 0.20-1.00 [facility] Comment on above: For patients on eltr ombopag therapy, use of Dimension [place] TBIL is not recommended. Chloride [Moles/Vol] 107 mmol/L 98-107 [facility] Eosinophils/100 WBC (Bld) 1.5 % 0-[address] [facility] Glucose [Mass/Vol] 103 mg/dL 74-106 [facility] Comment on above: Fasting Glucose resu lt from 100 to 125 mg/dL suggests IMPAIRED HOMEOSTASIS per A.D.A. criteria. Neutrophils (Bld) [#/Vol] 4.9 10*3/uL 2.0-7.[address] [facility] Neutrophils/100 WBC (Bld) 50.5 % 47-[address] [facility] Potassium [Moles/Vol] 3.6 mmol/L 3.5-5.1 [facility] Protein [Mass/Vol] 7.2 g/dL 6.4-8.2 [facility] Sodium [Moles/Vol] 140 mmol/L 136-145 [facility] WBC (Bld) [#/Vol] 9.7 10*3/uL 4.4-11.0 [facility] Blood erythrocytes count (nu mber/volume)Ordered By: Marycarmen Stevens on 04-16-2023 RBC (Bld) [#/Vol] 4.30 10*6/uL 4.2-5.4 [facility] Blood hemoglobin measurement (mass/volume)Ordered By: Marycarmen Stevens on 04-16-2023 Hemoglobin (Bld) [Mass/Vol] 13.0 g/dL 12.0-15.[address] [facility] Blood lymphocytes/100 leukoc ytesOrdered By: Marycarmen Stevens on 04-16-2023 Lymphocytes/100 WBC (Bld) 41.1 % 19-[address] [facility] Blood monocytes/100 leukocyt esOrdered By: Marycarmen Stevens on 04-16-2023 Monocytes/100 WBC (Bld) 5.9 % 0-10 [facility] Blood platelet mean volumeOr dered By: Marycarmen Stevens on 04-16-2023 Platelet mean volume (Bld) [Entitic vol] 9.3 fL 6.2-12.[address] [facility] Determination of erythrocyte mean corpuscular volume (MCV)Ordered By: Marycarmen Stevens on 04-16-2023 MCV (RBC) [Entitic vol] 95.1 fL 81-99 [facility] Hematocrit Auto (Bld) [Volum e fraction]Ordered By: Marycarmen Stevens on 04-16-2023 Hematocrit (Bld) [Volume fraction] 40.9 % 37-[address] [facility] Laboratory - Chemistry and C hemistry - challengeOrdered By: Marycarmen Stevens on 04-16-2023 ALP [Catalytic activity/Vol] 113 U/L 45-[address] [facility] ALT [Catalytic activity/Vol] 28 U/L 13-[address] [facility] CO2 [Moles/Vol] 26.0 mmol/L 21.0-32.[address] [facility] Globulin (S) [Mass/Vol] 3.6 g/dL 2.2-4.2 [facility] Urea nitrogen/Creatinine [Mass ratio] 21.1 mg/mg 10-[address] [facility] Laboratory - Hematology and Cell countsOrdered By: Marycarmen Stevens on 04-16-2023 Erythrocyte distribution width (RBC) [Entitic vol] 46.8 fL 35.1-43.9 [facility] Erythrocyte distribution width (RBC) [Ratio] 13.6 % 11.6-14.[address] [facility] Immature granulocytes/100 WBC (Bld) 0.500 % 0.0-0.[address] [facility] Comment on above: IG% - Immature Granu locytes (promyelocytes, myelocytes and metamyelocytes) > 1% indicates that a LEFT SHIFT is Present. MCH (RBC) [Entitic mass] 30.2 pg 27.0-32.[address] [facility] Nucleated RBC/100 WBC (Bld) [Ratio] 0 % 0-[address] [facility] MCHC Auto (RBC) [Mass/Vol]Or dered By: Marycarmen Stevens on 04-16-2023 MCHC (RBC) [Mass/Vol] 31.8 g/dL 32-36 [facility] No Panel InformationOrdered By: Marycarmen Stevens on 04-16-2023 Estimated GFR (MDRD) Amer 97 mL/min >[address] [facility] Comment on above: GFR Calc Estimated GFR (MDRD) Non-Af Amer 80 mL/min >[address] [facility] Comment on above: Non- GFR Calc Platelets bldOrdered By: Willy Stevens on 04-16-2023 Platelets (Bld) [#/Vol] 382 10*3/uL 150-[address] [facility] Serum or plasma albumin sonali urement (mass/volume)Ordered By: Marycarmen Stevens on 04-16-2023 Albumin [Mass/Vol] 3.6 g/dL 3.2-5.0 [facility] Serum or plasma albumin/glob ulin mass ratioOrdered By: Marycarmen Stevens on 04-16-2023 Albumin/Globulin [Mass ratio] 1.0 {ratio} 0.9-2.[address] [facility] Serum or plasma calcium sonali urement (mass/volume)Ordered By: Marycarmen Stevens on 04-16-2023 Calcium [Mass/Vol] 8.9 mg/dL 8.5-10.1 [facility] Serum or plasma creatinine m easurement (mass/volume)Ordered By: Marycarmen Stevens on 04-16-2023 Creatinine [Mass/Vol] 0.76 mg/dL 0.55-1.02 [facility] Comment on above: The validity of the calculated GFR & GFRAA in patients over 70 years has not been determined. Clinical correlation is essential. Serum or plasma urea nitroge n measurement (mass/volume)Ordered By: Marycarmen Stevens on 04-16-2023 Urea nitrogen [Mass/Vol] 16 mg/dL 7-[address] [facility] Thin prep Papanicolaou smear with manual screeningOrdered By: Marycarmen Stevens on 04-16-2023 Thin prep Papanicolaou smear with manual screening 18 U/L 15-[address] [facility] Thin prep Papanicolaou smear with manual screening 7 5-[address] [facility] Laboratory - Hematology and Cell countson 03-05-2023 HbA1c (Bld) [Mass fraction] 5.7 % 4.2-6.[address] [facility] Absolute lymphocyte countOrd ered By: Dr. Stevens on 01-19-2023 Lymphocytes Auto (Unsp spec) [#/Vol] 3.14 10*3/uL 0.83-4.[address] [facility] Basophil percentageOrdered B y: Dr. Stevens on 01-19-2023 Basophils/100 WBC (Bld) 0.5 % 0-1 [facility] Bilirubin [Mass/Vol] 0.30 mg/dL 0.20-1.00 [facility] Comment on above: For patients on eltr ombopag therapy, use of Dimension [place] TBIL is not recommended. Chloride [Moles/Vol] 106 mmol/L 98-107 [facility] Eosinophils/100 WBC (Bld) 2.3 % 0-[address] [facility] Glucose [Mass/Vol] 96 mg/dL 74-106 [facility] Neutrophils (Bld) [#/Vol] 5.2 10*3/uL 2.0-7.[address] [facility] Neutrophils/100 WBC (Bld) 56.2 % 47-[address] [facility] Potassium [Moles/Vol] 3.9 mmol/L 3.5-5.1 [facility] Protein [Mass/Vol] 7.0 g/dL 6.4-8.2 [facility] Sodium [Moles/Vol] 140 mmol/L 136-145 [facility] WBC (Bld) [#/Vol] 9.2 10*3/uL 4.4-11.0 [facility] Blood erythrocytes count (nu mber/volume)Ordered By: Dr. Stevens on 01-19-2023 RBC (Bld) [#/Vol] 4.07 10*6/uL 4.2-5.4 [facility] Blood hemoglobin measurement (mass/volume)Ordered By: Dr. Stevens on 01-19-2023 Hemoglobin (Bld) [Mass/Vol] 12.4 g/dL 12.0-15.[address] [facility] Blood lymphocytes/100 leukoc ytesOrdered By: Dr. Stevens on 01-19-2023 Lymphocytes/100 WBC (Bld) 34.2 % 19-[address] [facility] Blood monocytes/100 leukocyt esOrdered By: Dr. Stevens on 01-19-2023 Monocytes/100 WBC (Bld) 6.5 % 0-10 [facility] Blood platelet mean volumeOr dered By: Dr. Stevens on 01-19-2023 Platelet mean volume (Bld) [Entitic vol] 9.0 fL 6.2-12.[address] [facility] Determination of erythrocyte mean corpuscular volume (MCV)Ordered By: Dr. Stevens on 01-19-2023 MCV (RBC) [Entitic vol] 96.6 fL 81-99 [facility] Hematocrit Auto (Bld) [Volum e fraction]Ordered By: Dr. Stevens on 01-19-2023 Hematocrit (Bld) [Volume fraction] 39.3 % 37-[address] [facility] Laboratory - Chemistry and C hemistry - challengeOrdered By: Dr. Stevens on 01-19-2023 ALP [Catalytic activity/Vol] 102 U/L 45-[address] [facility] ALT [Catalytic activity/Vol] 23 U/L 13-[address] [facility] CO2 [Moles/Vol] 30.0 mmol/L 21.0-32.[address] [facility] Globulin (S) [Mass/Vol] 3.5 g/dL 2.2-4.2 [facility] Urea nitrogen/Creatinine [Mass ratio] 32.6 mg/mg 10-[address] [facility] Laboratory - Hematology and Cell countsOrdered By: Dr. Stevens on 01-19-2023 Erythrocyte distribution width (RBC) [Entitic vol] 50.6 fL 35.1-43.9 [facility] Erythrocyte distribution width (RBC) [Ratio] 14.4 % 11.6-14.[address] [facility] Immature granulocytes/100 WBC (Bld) 0.300 % 0.0-0.[address] [facility] Comment on above: IG% - Immature Granu locytes (promyelocytes, myelocytes and metamyelocytes) > 1% indicates that a LEFT SHIFT is Present. MCH (RBC) [Entitic mass] 30.5 pg 27.0-32.[address] [facility] Nucleated RBC/100 WBC (Bld) [Ratio] 0 % 0-[address] [facility] MCHC Auto (RBC) [Mass/Vol]Or dered By: Dr. Stevens on 01-19-2023 MCHC (RBC) [Mass/Vol] 31.6 g/dL 32-36 [facility] No Panel InformationOrdered By: Dr. Stevens on 01-19-2023 Estimated GFR (MDRD) Amer 96 mL/min >[address] [facility] Comment on above: GFR Calc Estimated GFR (MDRD) Non-Af Amer 79 mL/min >[address] [facility] Comment on above: Non- GFR Calc Platelets bldOrdered By: Dr. Stevens on 01-19-2023 Platelets (Bld) [#/Vol] 353 10*3/uL 150-[address] [facility] Serum or plasma albumin sonali urement (mass/volume)Ordered By: Dr. Stevens on 01-19-2023 Albumin [Mass/Vol] 3.5 g/dL 3.2-5.0 [facility] Serum or plasma albumin/glob ulin mass ratioOrdered By: Dr. Stevens on 01-19-2023 Albumin/Globulin [Mass ratio] 1.0 {ratio} 0.9-2.[address] [facility] Serum or plasma calcium sonali urement (mass/volume)Ordered By: Dr. Stevens on 01-19-2023 Calcium [Mass/Vol] 8.6 mg/dL 8.5-10.1 [facility] Serum or plasma creatinine m easurement (mass/volume)Ordered By: Dr. Stevens on 01-19-2023 Creatinine [Mass/Vol] 0.77 mg/dL 0.55-1.02 [facility] Comment on above: The validity of the calculated GFR & GFRAA in patients over 70 years has not been determined. Clinical correlation is essential. Serum or plasma urea nitroge n measurement (mass/volume)Ordered By: Dr. Stevens on 01-19-2023 Urea nitrogen [Mass/Vol] 25 mg/dL 7-[address] [facility] Thin prep Papanicolaou smear with manual screeningOrdered By: Dr. Stevens on 01-19-2023 Thin prep Papanicolaou smear with manual screening 15 U/L 15-[address] [facility] Thin prep Papanicolaou smear with manual screening 4 5-[address] [facility] CNPNon 11-18-2022 [facility] BEBETO DEJESUS ([id number]) 1950 F Date Time Provider Department 11/18/22 LUIS EMERSON JR [facility] During your visit today, we recorded the following information about you: Laura Lyles LPN 11/18/2022 4:30 PM Signed Pt calls to report she is unable to get [facility] Cristian downloaded on her computer for [...] set up. Pt is asking if the dr does telephone appts. Pt reports she tried [...] to try and help her with her MyChart for her virtual appointment. Pt was unable to log in and get connected to [employer]. I offered to help her reschedule to an in-person appt, she declined. She stated she has never had this much difficulty getting in to the [facility] and will be contacting her PCP to be seen elsewhere. Pt cancelled appointment today, declining to be rescheduled. 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 Torres on 11-11-2022 Lymphocytes Auto (Unsp spec) [#/Vol] 2.80 10*3/uL 0.83-4.[address] [facility] Basophil percentageOrdered B y: Dr. Torres on 11-11-2022 Basophils/100 WBC (Bld) 0.5 % 0-1 [facility] Bilirubin [Mass/Vol] 0.40 mg/dL 0.20-1.00 [facility] Comment on above: For patients on eltr ombopag therapy, use of Dimension [place] TBIL is not recommended. Chloride [Moles/Vol] 106 mmol/L 98-107 [facility] Cholesterol [Mass/Vol] 172 mg/dL <200 [facility] Comment on above: <200 mg/dL Desirable 200-240 mg/dL Borderline >240 mg/dL High Risk Eosinophils/100 WBC (Bld) 1.6 % 0-[address] [facility] Glucose [Mass/Vol] 97 mg/dL 74-106 [facility] LDH [Catalytic activity/Vol] 214 U/L 84-[address] [facility] Neutrophils (Bld) [#/Vol] 5.2 10*3/uL 2.0-7.[address] [facility] Neutrophils/100 WBC (Bld) 60.3 % 47-[address] [facility] Potassium [Moles/Vol] 3.7 mmol/L 3.5-5.1 [facility] Protein [Mass/Vol] 6.9 g/dL 6.4-8.2 [facility] Sodium [Moles/Vol] 139 mmol/L 136-145 [facility] Triglyceride [Mass/Vol] 82 mg/dL <199 [facility] Comment on above: The drugs N-Acetylcy steine and Metamizole may falsely depress this assay.Serum Triglycerides Reference Interval Normal <150 mg/dL Borderline high 150 - 199 mg/dL High 200 - 499 mg/dL Very High > or = 500 mg/dL WBC (Bld) [#/Vol] 8.6 10*3/uL 4.4-11.0 [facility] Blood erythrocytes count (nu mber/volume)Ordered By: Dr. Torres on 11-11-2022 RBC (Bld) [#/Vol] 3.84 10*6/uL 4.2-5.4 [facility] Blood hemoglobin measurement (mass/volume)Ordered By: Dr. Torres on 11-11-2022 Hemoglobin (Bld) [Mass/Vol] 11.9 g/dL 12.0-15.[address] [facility] Blood lymphocytes/100 leukoc ytesOrdered By: Dr. Torres on 11-11-2022 Lymphocytes/100 WBC (Bld) 32.4 % 19-[address] [facility] Blood monocytes/100 leukocyt esOrdered By: Dr. Torres on 11-11-2022 Monocytes/100 WBC (Bld) 5.0 % 0-10 [facility] Blood platelet mean volumeOr dered By: Dr. Torres on 11-11-2022 Platelet mean volume (Bld) [Entitic vol] 9.4 fL 6.2-12.[address] [facility] Determination of erythrocyte mean corpuscular volume (MCV)Ordered By: Dr. Torres on 11-11-2022 MCV (RBC) [Entitic vol] 94.0 fL 81-99 [facility] Erythrocyte sedimentation ra teOrdered By: Dr. Torres on 11-11-2022 ESR (Bld) [Velocity] 14 mm/h 0-30 [facility] Hematocrit Auto (Bld) [Volum e fraction]Ordered By: Dr. Torres on 11-11-2022 Hematocrit (Bld) [Volume fraction] 36.1 % 37-[address] [facility] Laboratory - Chemistry and C hemistry - challengeOrdered By: Dr. Torres on 11-11-2022 ALP [Catalytic activity/Vol] 90 U/L 45-[address] [facility] ALT [Catalytic activity/Vol] 23 U/L 13-[address] [facility] CO2 [Moles/Vol] 26.0 mmol/L 21.0-32.[address] [facility] Free T4 [Mass/Vol] 0.90 ng/dL 0.76-1.46 [facility] Globulin (S) [Mass/Vol] 3.3 g/dL 2.2-4.2 [facility] Urea nitrogen/Creatinine [Mass ratio] 33.2 mg/mg 10-[address] [facility] Laboratory - Hematology and Cell countsOrdered By: Dr. Torres on 11-11-2022 Erythrocyte distribution width (RBC) [Entitic vol] 44.8 fL 35.1-43.9 [facility] Erythrocyte distribution width (RBC) [Ratio] 13.1 % 11.6-14.[address] [facility] Immature granulocytes/100 WBC (Bld) 0.200 % 0.0-0.[address] [facility] Comment on above: IG% - Immature Granu locytes (promyelocytes, myelocytes and metamyelocytes) > 1% indicates that a LEFT SHIFT is Present. MCH (RBC) [Entitic mass] 31.0 pg 27.0-32.[address] [facility] Nucleated RBC/100 WBC (Bld) [Ratio] 0 % 0-[address] [facility] MCHC Auto (RBC) [Mass/Vol]Or dered By: Dr. Torres on 11-11-2022 MCHC (RBC) [Mass/Vol] 33.0 g/dL 32-36 [facility] No Panel InformationOrdered By: Dr. Torres on 11-11-2022 Free Lambda Light Chains, Quant 19.6 mg/L 5.7-26.[address] [facility] Vitamin D 25-Hydroxy 64.4 ng/mL [facility] Comment on above: Vitamin D 25(OH) Sta tus Range Deficiency <20 ng/mL (50nmol/L) Insufficiency 20 - 30 ng/mL (50 - 75 nmol/L) Sufficiency 30 - 100 ng/mL (75 - 250 nmol/L) Toxicity >100 ng/mL (>250 nmol/L) Estimated GFR (MDRD) Amer 94 mL/min >[address] [facility] Comment on above: GFR Calc Estimated GFR (MDRD) Non-Af Amer 77 mL/min >[address] [facility] Comment on above: Non- GFR Calc Free Triiodothyronine (T3) pg/dL 2.6 pg/mL 2.18-3.[address] [facility] Thyroid Stimulating Hormone (TSH) 0.99 uIU/mL 0.358-3.[address] [facility] Platelets bldOrdered By: Dr. Torres on 11-11-2022 Platelets (Bld) [#/Vol] 377 10*3/uL 150-[address] [facility] Serum immunoglobulin kappa l ight chains/immunoglobulin lambda light chains mass ratioOrdered By: Dr. Torres on 11-11-2022 Immunoglobulin light chains.kappa/Immunoglobul in light chains.lambda (S) [Mass ratio] 0.93 0.26-1.[address] [facility] Comment on above: Performed at: - [address] [id number] Director: Brian Bautista PhD, Phone: [phone] Serum or plasma albumin sonali urement (mass/volume)Ordered By: Dr. Torres on 11-11-2022 Albumin [Mass/Vol] 3.6 g/dL 3.2-5.0 [facility] Serum or plasma albumin/glob ulin mass ratioOrdered By: Dr. Torres on 11-11-2022 Albumin/Globulin [Mass ratio] 1.1 {ratio} 0.9-2.[address] [facility] Serum or plasma calcium sonali urement (mass/volume)Ordered By: Dr. Torres on 11-11-2022 Calcium [Mass/Vol] 9.0 mg/dL 8.5-10.1 [facility] Serum or plasma cholesterol in HDL measurement (mass/volume)Ordered By: Dr. Torres on 11-11-2022 Cholesterol in HDL [Mass/Vol] 62 mg/dL >[address] [facility] Comment on above: The drugs N-Acetylcy steine and Metamizole may falsely depress this assay. Reference Range HDL <40 mg/dL Low HDL Cholesterol HDL >or= 60 mg/dL High HDL Cholesterol Serum or plasma cholesterol in VLDL measurement (mass/volume)Ordered By: Dr. Torres on 11-11-2022 Cholesterol in VLDL [Mass/Vol] 16 mg/dL 5-[address] [facility] Serum or plasma creatinine m easurement (mass/volume)Ordered By: Dr. Torres on 11-11-2022 Creatinine [Mass/Vol] 0.78 mg/dL 0.55-1.02 [facility] Comment on above: The validity of the calculated GFR & GFRAA in patients over 70 years has not been determined. Clinical correlation is essential. Serum or plasma immunoglobul in kappa light chains measurement (mass/volume)Ordered By: Dr. Torres on 11-11-2022 Immunoglobulin light chains.kappa [Mass/Vol] 18.2 mg/L 3.3-19.[address] [facility] Serum or plasma low density lipoprotein (LDL) cholesterol measurement (mass/volume)Ordered By: Dr. Torres on 11-11-2022 Cholesterol in LDL [Mass/Vol] 94 mg/dL 0-[address] [facility] Serum or plasma urea nitroge n measurement (mass/volume)Ordered By: Dr. Torres on 11-11-2022 Urea nitrogen [Mass/Vol] 26 mg/dL 7-[address] [facility] Thin prep Papanicolaou smear with manual screeningOrdered By: Dr. Torres on 11-11-2022 Thin prep Papanicolaou smear with manual screening 19 U/L 15-[address] [facility] Thin prep Papanicolaou smear with manual screening 7 5-[address] [facility] Whole blood hemoglobin A1c/t otal hemoglobin ratio (mass fraction)Ordered By: Dr. Torres on 11-11-2022 HbA1c (Bld) [Mass fraction] % 3.8-5.[address] [facility] Comment on above: Normal < 5.7 % Predi abetic 5.7 - 6.4 % Diabetic >or= 6.5 % Please note range changes. Absolute lymphocyte countOrd ered By: Dr. Stevens on 10-28-2022 Lymphocytes Auto (Unsp spec) [#/Vol] 3.36 10*3/uL 0.83-4.[address] [facility] Basophil percentageOrdered B y: Dr. Stevens on 10-28-2022 Basophils/100 WBC (Bld) 0.6 % 0-1 [facility] Bilirubin [Mass/Vol] 0.30 mg/dL 0.20-1.00 [facility] Comment on above: For patients on eltr ombopag therapy, use of Dimension [place] TBIL is not recommended. Chloride [Moles/Vol] 105 mmol/L 98-107 [facility] Eosinophils/100 WBC (Bld) 2.2 % 0-[address] [facility] Glucose [Mass/Vol] 88 mg/dL 74-106 [facility] Neutrophils (Bld) [#/Vol] 2.8 10*3/uL 2.0-7.[address] [facility] Neutrophils/100 WBC (Bld) 40.9 % 47-[address] [facility] Potassium [Moles/Vol] 3.8 mmol/L 3.5-5.1 [facility] Protein [Mass/Vol] 7.1 g/dL 6.4-8.2 [facility] Sodium [Moles/Vol] 141 mmol/L 136-145 [facility] WBC (Bld) [#/Vol] 6.7 10*3/uL 4.4-11.0 [facility] Blood erythrocytes count (nu mber/volume)Ordered By: Dr. Stevens on 10-28-2022 RBC (Bld) [#/Vol] 4.05 10*6/uL 4.2-5.4 [facility] Blood hemoglobin measurement (mass/volume)Ordered By: Dr. Stevens on 10-28-2022 Hemoglobin (Bld) [Mass/Vol] 12.5 g/dL 12.0-15.[address] [facility] Blood lymphocytes/100 leukoc ytesOrdered By: Dr. Stevens on 10-28-2022 Lymphocytes/100 WBC (Bld) 49.9 % 19-[address] [facility] Blood monocytes/100 leukocyt esOrdered By: Dr. Stevens on 10-28-2022 Monocytes/100 WBC (Bld) 6.1 % 0-10 [facility] Blood platelet mean volumeOr dered By: Dr. Stevens on 10-28-2022 Platelet mean volume (Bld) [Entitic vol] 9.6 fL 6.2-12.[address] [facility] Determination of erythrocyte mean corpuscular volume (MCV)Ordered By: Dr. Stevens on 10-28-2022 MCV (RBC) [Entitic vol] 96.5 fL 81-99 [facility] Hematocrit Auto (Bld) [Volum e fraction]Ordered By: Dr. Stevens on 10-28-2022 Hematocrit (Bld) [Volume fraction] 39.1 % 37-[address] [facility] Laboratory - Chemistry and C hemistry - challengeOrdered By: Dr. Stevens on 10-28-2022 ALP [Catalytic activity/Vol] 92 U/L 45-[address] [facility] ALT [Catalytic activity/Vol] 22 U/L 13-[address] [facility] CO2 [Moles/Vol] 29.0 mmol/L 21.0-32.[address] [facility] Globulin (S) [Mass/Vol] 3.4 g/dL 2.2-4.2 [facility] Urea nitrogen/Creatinine [Mass ratio] 36.2 mg/mg 10-[address] [facility] Laboratory - Hematology and Cell countsOrdered By: Dr. Stevens on 10-28-2022 Erythrocyte distribution width (RBC) [Entitic vol] 45.7 fL 35.1-43.9 [facility] Erythrocyte distribution width (RBC) [Ratio] 12.8 % 11.6-14.[address] [facility] Immature granulocytes/100 WBC (Bld) 0.300 % 0.0-0.[address] [facility] Comment on above: IG% - Immature Granu locytes (promyelocytes, myelocytes and metamyelocytes) > 1% indicates that a LEFT SHIFT is Present. MCH (RBC) [Entitic mass] 30.9 pg 27.0-32.[address] [facility] Nucleated RBC/100 WBC (Bld) [Ratio] 0 % 0-[address] [facility] MCHC Auto (RBC) [Mass/Vol]Or dered By: Dr. Stevens on 10-28-2022 MCHC (RBC) [Mass/Vol] 32.0 g/dL 32-36 [facility] No Panel InformationOrdered By: Dr. Stevens on 10-28-2022 Estimated GFR (MDRD) Amer 99 mL/min >[address] [facility] Comment on above: GFR Calc Estimated GFR (MDRD) Non-Af Amer 82 mL/min >[address] [facility] Comment on above: Non- GFR Calc Platelets bldOrdered By: Dr. Stevens on 10-28-2022 Platelets (Bld) [#/Vol] 342 10*3/uL 150-[address] [facility] Serum or plasma albumin sonali urement (mass/volume)Ordered By: Dr. Stevens on 10-28-2022 Albumin [Mass/Vol] 3.7 g/dL 3.2-5.0 [facility] Serum or plasma albumin/glob ulin mass ratioOrdered By: Dr. Stevens on 10-28-2022 Albumin/Globulin [Mass ratio] 1.1 {ratio} 0.9-2.[address] [facility] Serum or plasma calcium sonali urement (mass/volume)Ordered By: Dr. Stevens on 10-28-2022 Calcium [Mass/Vol] 9.3 mg/dL 8.5-10.1 [facility] Serum or plasma creatinine m easurement (mass/volume)Ordered By: Dr. Stevens on 10-28-2022 Creatinine [Mass/Vol] 0.75 mg/dL 0.55-1.02 [facility] Comment on above: The validity of the calculated GFR & GFRAA in patients over 70 years has not been determined. Clinical correlation is essential. Serum or plasma urea nitroge n measurement (mass/volume)Ordered By: Dr. Stevens on 10-28-2022 Urea nitrogen [Mass/Vol] 27 mg/dL 7-[address] [facility] Thin prep Papanicolaou smear with manual screeningOrdered By: Dr. Stevens on 10-28-2022 Thin prep Papanicolaou smear with manual screening 15 U/L 15-[address] [facility] Thin prep Papanicolaou smear with manual screening 7 5-[address] [facility] CNPNon 10-08-2022 CNPN Telephone (NIQ) BEBETO DEJESUS ([id number]) 1950 F Date Time Provider Department 10/08/22 NEUROLOGY PROVIDER NIQ During your visit today, we recorded the following information about you: Shawnee Palencia [facility] 10/08/2022 5:15 PM Signed Spoke with the patient and scheduled her an appointment for Sleep Apnea. Medical records were sent to [facility]. Mailed the patient an appointment reminder and a [employer] information. Allergies As of Date: 10/08/2022 Noted [...] Encounter Status:Closed by SHAWNEE ASH on 10[facility]08/22 [facility] BEBETO DEJESUS ([id number]) 1950 F Date Time Provider Department 10/07/22 [facility] During your visit today, we recorded the following information about you: Stuart Blair MA 10/07/2022 4:12 PM Signed Received fax referral from [facility] ([facility]) [facility] Medicine of Lisa Dorman CNP for [...] Reason for Visit: Received Outside Medical Records [[id number]] Cmt: Referral for [facility] Sleep medicine-Idania from [facility] [place] Prescriptions as of 10/07/2022 - ramelteon (ROZEREM) [...] Status:Closed by STUART BLAIR on 10/07/22 Normal [facility] Absolute lymphocyte countOrd ered By: Dr. Stevens on 08-06-2022 Lymphocytes Auto (Unsp spec) [#/Vol] 4.35 10*3/uL 0.83-4.[address] [facility] Basophil percentageOrdered B y: Dr. Stevens on 08-06-2022 Basophils/100 WBC (Bld) 0.5 % 0-1 [facility] Bilirubin [Mass/Vol] 0.50 mg/dL 0.20-1.00 [facility] Comment on above: For patients on eltr ombopag therapy, use of Dimension [place] TBIL is not recommended. Chloride [Moles/Vol] 109 mmol/L 98-107 [facility] Eosinophils/100 WBC (Bld) 2.2 % 0-[address] [facility] Glucose [Mass/Vol] 96 mg/dL 74-106 [facility] Neutrophils (Bld) [#/Vol] 5.1 10*3/uL 2.0-7.[address] [facility] Neutrophils/100 WBC (Bld) 48.9 % 47-[address] [facility] Potassium [Moles/Vol] 3.6 mmol/L 3.5-5.1 [facility] Protein [Mass/Vol] 7.3 g/dL 6.4-8.2 [facility] Sodium [Moles/Vol] 142 mmol/L 136-145 [facility] WBC (Bld) [#/Vol] 10.4 10*3/uL 4.4-11.0 [facility] Blood erythrocytes count (nu mber/volume)Ordered By: Dr. Stevens on 08-06-2022 RBC (Bld) [#/Vol] 4.34 10*6/uL 4.2-5.4 [facility] Blood hemoglobin measurement (mass/volume)Ordered By: Dr. Stevens on 08-06-2022 Hemoglobin (Bld) [Mass/Vol] 13.2 g/dL 12.0-15.[address] [facility] Blood lymphocytes/100 leukoc ytesOrdered By: Dr. Stevens on 08-06-2022 Lymphocytes/100 WBC (Bld) 41.7 % 19-[address] [facility] Blood monocytes/100 leukocyt esOrdered By: Dr. Stevens on 08-06-2022 Monocytes/100 WBC (Bld) 6.2 % 0-10 [facility] Blood platelet mean volumeOr dered By: Dr. Stevens on 08-06-2022 Platelet mean volume (Bld) [Entitic vol] 9.0 fL 6.2-12.[address] [facility] Determination of erythrocyte mean corpuscular volume (MCV)Ordered By: Dr. Stevens on 08-06-2022 MCV (RBC) [Entitic vol] 96.3 fL 81-99 [facility] Hematocrit Auto (Bld) [Volum e fraction]Ordered By: Dr. Stevens on 08-06-2022 Hematocrit (Bld) [Volume fraction] 41.8 % 37-[address] [facility] Laboratory - Chemistry and C hemistry - challengeOrdered By: Dr. Stevens on 08-06-2022 ALP [Catalytic activity/Vol] 102 U/L 45-[address] [facility] ALT [Catalytic activity/Vol] 24 U/L 13-[address] [facility] CO2 [Moles/Vol] 28.0 mmol/L 21.0-32.[address] [facility] Globulin (S) [Mass/Vol] 3.4 g/dL 2.2-4.2 [facility] Urea nitrogen/Creatinine [Mass ratio] 20.0 mg/mg 10-[address] [facility] Laboratory - Hematology and Cell countsOrdered By: Dr. Stevens on 08-06-2022 Erythrocyte distribution width (RBC) [Entitic vol] 47.1 fL 35.1-43.9 [facility] Erythrocyte distribution width (RBC) [Ratio] 13.2 % 11.6-14.[address] [facility] Immature granulocytes/100 WBC (Bld) 0.500 % 0.0-0.[address] [facility] Comment on above: IG% - Immature Granu locytes (promyelocytes, myelocytes and metamyelocytes) > 1% indicates that a LEFT SHIFT is Present. MCH (RBC) [Entitic mass] 30.4 pg 27.0-32.[address] [facility] Nucleated RBC/100 WBC (Bld) [Ratio] 0 % 0-[address] [facility] MCHC Auto (RBC) [Mass/Vol]Or dered By: Dr. Stevens on 08-06-2022 MCHC (RBC) [Mass/Vol] 31.6 g/dL 32-36 [facility] No Panel InformationOrdered By: Dr. Stevens on 08-06-2022 Estimated GFR (MDRD) Amer 75 mL/min >[address] [facility] Comment on above: GFR Calc Estimated GFR (MDRD) Non-Af Amer 62 mL/min >[address] [facility] Comment on above: Non- GFR Calc Platelets bldOrdered By: Dr. Stevens on 08-06-2022 Platelets (Bld) [#/Vol] 341 10*3/uL 150-[address] [facility] Serum or plasma albumin sonali urement (mass/volume)Ordered By: Dr. Stevens on 08-06-2022 Albumin [Mass/Vol] 3.9 g/dL 3.2-5.0 [facility] Serum or plasma albumin/glob ulin mass ratioOrdered By: Dr. Stevens on 08-06-2022 Albumin/Globulin [Mass ratio] 1.1 {ratio} 0.9-2.[address] [facility] Serum or plasma calcium sonali urement (mass/volume)Ordered By: Dr. Stevens on 08-06-2022 Calcium [Mass/Vol] 9.1 mg/dL 8.5-10.1 [facility] Serum or plasma creatinine m easurement (mass/volume)Ordered By: Dr. Stevens on 08-06-2022 Creatinine [Mass/Vol] 0.95 mg/dL 0.55-1.02 [facility] Comment on above: The validity of the calculated GFR & GFRAA in patients over 70 years has not been determined. Clinical correlation is essential. Serum or plasma urea nitroge n measurement (mass/volume)Ordered By: Dr. Stevens on 08-06-2022 Urea nitrogen [Mass/Vol] 19 mg/dL 7-[address] [facility] Thin prep Papanicolaou smear with manual screeningOrdered By: Dr. Stevens on 08-06-2022 Thin prep Papanicolaou smear with manual screening 17 U/L 15-[address] [facility] Thin prep Papanicolaou smear with manual screening 5 5-[address] [facility] Basophil percentageOrdered B y: Dr. Kaba on 07-03-2022 Bilirubin [Mass/Vol] 0.70 mg/dL 0.20-1.00 [facility] Comment on above: For patients on eltr ombopag therapy, use of Dimension [place] TBIL is not recommended. Chloride [Moles/Vol] 107 mmol/L 98-107 [facility] Glucose [Mass/Vol] 110 mg/dL 74-106 [facility] Comment on above: Fasting Glucose resu lt from 100 to 125 mg/dL suggests IMPAIRED HOMEOSTASIS per A.D.A. criteria. Potassium [Moles/Vol] 3.6 mmol/L 3.5-5.1 [facility] Protein [Mass/Vol] 7.4 g/dL 6.4-8.2 [facility] Sodium [Moles/Vol] 141 mmol/L 136-145 [facility] Laboratory - Chemistry and C hemistry - challengeOrdered By: Dr. Kaba on 07-03-2022 ALP [Catalytic activity/Vol] 116 U/L 45-[address] [facility] ALT [Catalytic activity/Vol] 24 U/L 13-[address] [facility] CO2 [Moles/Vol] 26.0 mmol/L 21.0-32.[address] [facility] Free T4 [Mass/Vol] 0.94 ng/dL 0.76-1.46 [facility] Globulin (S) [Mass/Vol] 3.7 g/dL 2.2-4.2 [facility] Urea nitrogen/Creatinine [Mass ratio] 23.2 mg/mg 10-[address] [facility] No Panel InformationOrdered By: Dr. Kaba on 07-03-2022 Estimated GFR (MDRD) Amer 79 mL/min >[address] [facility] Comment on above: GFR Calc Estimated GFR (MDRD) Non-Af Amer 65 mL/min >[address] [facility] Comment on above: Non- GFR Calc Free Triiodothyronine (T3) pg/dL 2.7 pg/mL 2.18-3.[address] [facility] Thyroid Stimulating Hormone (TSH) 2.42 uIU/mL 0.358-3.[address] [facility] Serum or plasma albumin sonali urement (mass/volume)Ordered By: Dr. Kaba on 07-03-2022 Albumin [Mass/Vol] 3.7 g/dL 3.2-5.0 [facility] Serum or plasma albumin/glob ulin mass ratioOrdered By: Dr. Kaba on 07-03-2022 Albumin/Globulin [Mass ratio] 1.0 {ratio} 0.9-2.[address] [facility] Serum or plasma calcium sonali urement (mass/volume)Ordered By: Dr. Kaba on 07-03-2022 Calcium [Mass/Vol] 9.2 mg/dL 8.5-10.1 [facility] Serum or plasma creatinine m easurement (mass/volume)Ordered By: Dr. Kaba on 07-03-2022 Creatinine [Mass/Vol] 0.91 mg/dL 0.55-1.02 [facility] Comment on above: The validity of the calculated GFR & GFRAA in patients over 70 years has not been determined. Clinical correlation is essential. Serum or plasma urea nitroge n measurement (mass/volume)Ordered By: Dr. Kaba on 07-03-2022 Urea nitrogen [Mass/Vol] 21 mg/dL 7-[address] [facility] Thin prep Papanicolaou smear with manual screeningOrdered By: Dr. Kaba on 07-03-2022 Thin prep Papanicolaou smear with manual screening 15 U/L 15-[address] [facility] Thin prep Papanicolaou smear with manual screening 8 5-[address] [facility] Whole blood hemoglobin A1c/t otal hemoglobin ratio (mass fraction)Ordered By: Dr. Kaba on 07-03-2022 HbA1c (Bld) [Mass fraction] 5.7 % 3.8-5.[address] [facility] Comment on above: Normal < 5.7 % Predi abetic 5.7 - 6.4 % Diabetic >or= 6.5 % Please note range changes. Chocolate RASTOrdered By: Ra holguin Friend on 06-13-2022 Chocolate IgE Qn (S) <0.10 kU/L Class 0 [facility] Comment on above: Performed at: - [address] [id number] Director: Rosalva Ross MD, Phone: [phone] Laboratory - Miscellaneous t estsOrdered By: Vahe Nobles on 06-13-2022 Service comment (Unsp spec) [Interp] Comment . [facility] Comment on above: Levels of Specific I [...] 06-13-2022 [employer] Allergens (RAST) Negative . [facility] Comment on above: Allergens in this mi x are: Blue mussel Fish [place] Shrimp Tuna Serum beef IgE antibody assa y (units/volume)Ordered By: Vahe Nobles on 06-13-2022 Beef IgE Qn (S) <0.10 kU/L Class [address] [facility] Serum corn IgE antibody assa y (units/volume)Ordered By: Vahe Nobles on 06-13-2022 Bradford IgE Qn (S) <0.10 kU/L Class [address] [facility] Serum cow milk IgE antibody assay (units/volume)Ordered By: Vahe Nobles on 06-13-2022 Cow milk IgE Qn (S) 0.12 kU/L Class 0/I [facility] Serum peanut IgE antibody as say (units/volume)Ordered By: Vahe Nobles on 06-13-2022 Peanut IgE Qn (S) <0.10 kU/L Class [address] [facility] Serum pork IgE antibody assa y (units/volume)Ordered By: Vahe Nobles on 06-13-2022 Pork IgE Qn (S) <0.10 kU/L Class [address] [facility] Serum soybean IgE antibody a ssay (units/volume)Ordered By: Vahe Nobles on 06-13-2022 Soybean IgE Qn (S) <0.10 kU/L Class 0 [facility] Serum wheat IgE antibody ass ay (units/volume)Ordered By: Vahe Hugh on 06-13-2022 Wheat IgE Qn (S) <0.10 kU/L Class [address] [facility] Serum whole egg IgE antibody assay (units/volume)Ordered By: Vahelinda Nobles on 06-13-2022 Whole Egg IgE Qn (S) <0.10 kU/L Class 0 [facility] Absolute lymphocyte counton 05-16-2022 Lymphocytes Auto (Unsp spec) [#/Vol] 3.49 10*3/uL 0.83-4.[address] [facility] Work Phone: Basophil percentageon 2021 Basophils/100 WBC (Bld) 0.5 % 0-1 [facility] Work Phone: Bilirubin [Mass/Vol] 0.30 mg/dL 0.20-1.00 [facility] Work Phone: Comment on above: For patients on eltr ombopag therapy, use of Dimension [place] TBIL is not recommended. Chloride [Moles/Vol] 103 mmol/L 98-107 [facility] Work Phone: Eosinophils/100 WBC (Bld) 3.1 % 0-[address] [facility] Work Phone: Glucose [Mass/Vol] 94 mg/dL 74-106 [facility] Work Phone: Neutrophils (Bld) [#/Vol] 3.1 10*3/uL 2.0-7.[address] [facility] Work Phone: Neutrophils/100 WBC (Bld) 42.0 % 47-[address] [facility] Work Phone: Potassium [Moles/Vol] 3.8 mmol/L 3.5-5.1 [facility] Work Phone: Protein [Mass/Vol] 7.4 g/dL 6.4-8.2 [facility] Work Phone: Sodium [Moles/Vol] 140 mmol/L 136-145 [facility] Work Phone: [phone] WBC (Bld) [#/Vol] 7.3 10*3/uL 4.4-11.0 [place] [facility] Work Phone: [phone] Blood erythrocytes count (nu mber/volume)on 05-16-2022 RBC (Bld) [#/Vol] 4.32 10*6/uL 4.2-5.4 [facility] Work Phone: [phone] Blood hemoglobin measurement (mass/volume)on 05-16-2022 Hemoglobin (Bld) [Mass/Vol] 13.5 g/dL 12.0-15.[address] [facility] Work Phone: [phone] Blood lymphocytes/100 leukoc yteson 05-16-2022 Lymphocytes/100 WBC (Bld) 47.6 % 19-[address] [facility] Work Phone: [phone] Blood monocytes/100 leukocyt eson 05-16-2022 Monocytes/100 WBC (Bld) 6.5 % 0-10 [facility] Work Phone: [phone] Blood platelet mean volumeon 05-16-2022 Platelet mean volume (Bld) [Entitic vol] 9.3 fL 6.2-12.[address] [facility] Work Phone: Determination of erythrocyte mean corpuscular volume (MCV)on 05-16-2022 MCV (RBC) [Entitic vol] 94.7 fL 81-99 [facility] Work Phone: [phone] Hematocrit Auto (Bld) [Volum e fraction]on 05-16-2022 Hematocrit (Bld) [Volume fraction] 40.9 % 37-[address] [facility] Work Phone: Laboratory - Chemistry and C hemistry - challengeon 05-16-2022 ALP [Catalytic activity/Vol] 111 U/L 45-[address] [facility] Work Phone: [phone] ALT [Catalytic activity/Vol] 22 U/L 13-[address] [facility] Work Phone: [phone] CO2 [Moles/Vol] 30.0 mmol/L 21.0-32.[address] [facility] Work Phone: [phone] Globulin (S) [Mass/Vol] 3.7 g/dL 2.2-4.2 [facility] Work Phone: [phone] Urea nitrogen/Creatinine [Mass ratio] 23.7 mg/mg 10-[address] [facility] Work Phone: [phone] Laboratory - Hematology and Cell countson 05-16-2022 Erythrocyte distribution width (RBC) [Entitic vol] 49.1 fL 35.1-43.9 [facility] Work Phone: [phone] Erythrocyte distribution width (RBC) [Ratio] 14.1 % 11.6-14.[address] [facility] Work Phone: [phone] Immature granulocytes/100 WBC (Bld) 0.300 % 0.0-0.[address] [facility] Work Phone: [phone] Comment on above: IG% - Immature Granu locytes (promyelocytes, myelocytes and metamyelocytes) > 1% indicates that a LEFT SHIFT is Present. MCH (RBC) [Entitic mass] 31.3 pg 27.0-32.[address] [facility] Work Phone: [phone] Nucleated RBC/100 WBC (Bld) [Ratio] 0 % 0-[address] [facility] Work Phone: [phone] MCHC Auto (RBC) [Mass/Vol]on 05-16-2022 MCHC (RBC) [Mass/Vol] 33.0 g/dL 32-36 [facility] Work Phone: [phone] Panel Informationon 05-16 Estimated GFR (MDRD) Amer 73 mL/min >[address] [facility] Work Phone: [phone] Comment on above: GFR Calc Estimated GFR (MDRD) Non-Af Amer 60 mL/min >[address] [facility] Work Phone: [phone] Comment on above: Non- GFR Calc Platelets bldon 05-16-2022 Platelets (Bld) [#/Vol] 341 10*3/uL 150-[address] [facility] Work Phone: [phone] Serum or plasma albumin sonali urement (mass/volume)on 05-16-2022 Albumin [Mass/Vol] 3.7 g/dL 3.2-5.0 [facility] Work Phone: [phone] Serum or plasma albumin/glob ulin mass ratioon 05-16-2022 Albumin/Globulin [Mass ratio] 1.0 {ratio} 0.9-2.[address] [facility] Work Phone: [phone] Serum or plasma calcium sonali urement (mass/volume)on 05-16-2022 Calcium [Mass/Vol] 9.2 mg/dL 8.5-10.1 [facility] Work Phone: [phone] Serum or plasma creatinine m easurement (mass/volume)on 05-16-2022 Creatinine [Mass/Vol] 0.97 mg/dL 0.55-1.02 [facility] Work Phone: Comment on above: The validity of the calculated GFR & GFRAA in patients over 70 years has not been determined. Clinical correlation is essential. Serum or plasma urea nitroge n measurement (mass/volume)on 05-16-2022 Urea nitrogen [Mass/Vol] 23 mg/dL 7-[address] [facility] Work Phone: [phone] Thin prep Papanicolaou smear with manual screeningon 05-16-2022 Thin prep Papanicolaou smear with manual screening 16 U/L 15-[address] [facility] Work Phone: [phone] Thin prep Papanicolaou smear with manual screening 7 5-[address] [facility] Work Phone: [phone] Basophil percentageon 2021 Bilirubin [Mass/Vol] 0.20 mg/dL 0.20-1.00 [facility] Work Phone: [phone] Comment on above: For patients on eltr ombopag therapy, use of Dimension [place] TBIL is not recommended. Chloride [Moles/Vol] 107 mmol/L 98-107 [facility] Work Phone: [phone] Cholesterol [Mass/Vol] 153 mg/dL <200 [facility] Work Phone: [phone] Comment on above: <200 mg/dL Desirable 200-240 mg/dL Borderline >240 mg/dL High Risk Glucose [Mass/Vol] 99 mg/dL 74-106 [facility] Work Phone: [phone] Potassium [Moles/Vol] 4.0 mmol/L 3.5-5.1 [facility] Work Phone: [phone] Protein [Mass/Vol] 7.0 g/dL 6.4-8.2 [facility] Work Phone: [phone] Sodium [Moles/Vol] 142 mmol/L 136-145 [facility] Work Phone: [phone] Triglyceride [Mass/Vol] 95 mg/dL <199 [facility] Work Phone: [phone] Comment on above: The drugs N-Acetylcy steine and Metamizole may falsely depress this assay.Serum Triglycerides Reference Interval Normal <150 mg/dL Borderline high 150 - 199 mg/dL High 200 - 499 mg/dL Very High > or = 500 mg/dL Laboratory - Chemistry and C hemistry - challengeon 04-05-2022 ALP [Catalytic activity/Vol] 107 U/L 45-[address] [facility] Work Phone: ALT [Catalytic activity/Vol] 23 U/L 13-[address] [facility] Work Phone: [phone] CO2 [Moles/Vol] 29.0 mmol/L 21.0-32.[address] [facility] Work Phone: [phone] Free T4 [Mass/Vol] 0.95 ng/dL 0.76-1.46 [facility] Work Phone: Globulin (S) [Mass/Vol] 3.6 g/dL 2.2-4.2 [facility] Work Phone: [phone] Magnesium [Mass/Vol] 2.5 mg/dL 1.6-2.6 [facility] Work Phone: Urea nitrogen/Creatinine [Mass ratio] 25.2 mg/mg 10-[address] [facility] Work Phone: No Panel Informationon 04-05 Adrenocorticotropic Hormone 34.7 pg/mL 7.2-63.[address] [facility] Work Phone: Comment on above: ACTH reference inter scot for samples collected between 7 and10 AM. Estimated GFR (MDRD) Amer 78 mL/min >[address] [facility] Work Phone: Comment on above: GFR Calc Estimated GFR (MDRD) Non-Af Amer 65 mL/min >[address] [facility] Work Phone: Comment on above: Non- GFR Calc Free Triiodothyronine (T3) pg/dL 2.6 pg/mL 2.18-3.[address] [facility] Work Phone: Thyroid Stimulating Hormone (TSH) 3.75 uIU/mL 0.358-3.[address] [facility] Work Phone: Vitamin D 25-Hydroxy 48.8 ng/mL [facility] Work Phone: Comment on above: Vitamin D 25(OH) Sta tus Range Deficiency <20 ng/mL (50nmol/L) Insufficiency 20 - 30 ng/mL (50 - 75 nmol/L) Sufficiency 30 - 100 ng/mL (75 - 250 nmol/L) Toxicity >100 ng/mL (>250 nmol/L) Plasma renin measurement (en zymatic activity/volume)on 04-05-2022 Renin (P) [Catalytic activity/Vol] 1.499 ng/mL/hr 0.167-5.[address] [facility] Work Phone: Comment on above: Performed at: - [address] [id number] Director: Rosalva Ross MD, Phone: [phone] at: - [facility] [address] [id number] Director: Brian Bautista PhD, Phone: [phone] Serum or plasma albumin sonali urement (mass/volume)on 04-05-2022 Albumin [Mass/Vol] 3.4 g/dL 3.2-5.0 [facility] Work Phone: Serum or plasma albumin/glob ulin mass ratioon 04-05-2022 Albumin/Globulin [Mass ratio] 0.9 {ratio} 0.9-2.[address] [facility] Work Phone: Serum or plasma calcium sonali urement (mass/volume)on 04-05-2022 Calcium [Mass/Vol] 8.8 mg/dL 8.5-10.1 [facility] Work Phone: Serum or plasma cholesterol in HDL measurement (mass/volume)on 04-05-2022 Cholesterol in HDL [Mass/Vol] 61 mg/dL >[address] [facility] Work Phone: Comment on above: The drugs N-Acetylcy steine and Metamizole may falsely depress this assay. Reference Range HDL <40 mg/dL Low HDL Cholesterol HDL >or= 60 mg/dL High HDL Cholesterol Serum or plasma cholesterol in VLDL measurement (mass/volume)on 04-05-2022 Cholesterol in VLDL [Mass/Vol] 19 mg/dL 5-[address] [facility] Work Phone: Serum or plasma cortisol lolyd surement (mass/volume)on 04-05-2022 Cortisol [Mass/Vol] 17.90 ug/dL 3.44-22.45 [facility] Work Phone: Comment on above: Adult (AM) 5.27 - 22 .45 ug/dL Adult (PM) 3.44 - 16.76 ug/dLPlease note revised CORTISOL reference range effective 2019. Serum or plasma creatinine m easurement (mass/volume)on 04-05-2022 Creatinine [Mass/Vol] 0.91 mg/dL 0.55-1.02 [facility] Work Phone: Comment on above: The validity of the calculated GFR & GFRAA in patients over 70 years has not been determined. Clinical correlation is essential. Serum or plasma low density lipoprotein (LDL) cholesterol measurement (mass/volume)on 04-05-2022 Cholesterol in LDL [Mass/Vol] 73 mg/dL 0-[address] [facility] Work Phone: Serum or plasma urea nitroge n measurement (mass/volume)on 04-05-2022 Urea nitrogen [Mass/Vol] 23 mg/dL 7-[address] [facility] Work Phone: Thin prep Papanicolaou smear with manual screeningon 04-05-2022 Thin prep Papanicolaou smear with manual screening 15 U/L 15-[address] [facility] Work Phone: Thin prep Papanicolaou smear with manual screening 6 5-[address] [facility] Work Phone: [phone] Thin prep Papanicolaou smear with manual screening 6.8 mg/L NO RANGE EST. [facility] Work Phone: Thin prep Papanicolaou smear with manual screening 17.8 ng/dL 0.0-30.[address] [facility] Work Phone: Whole blood hemoglobin A1c/t otal hemoglobin ratio (mass fraction)on 04-05-2022 HbA1c (Bld) [Mass fraction] 5.8 % 3.8-5.[address] [facility] Work Phone: Comment on above: Normal < 5.7 % Predi abetic 5.7 - 6.4 % Diabetic >or= 6.5 % Please note range changes. Basophil percentageon 2021 Basophil percentage 0 SEEN /hpf 0-5 [facility] Work Phone: Bilirubin Test strip Ql (U)o n 03-12-2022 Bilirubin Ql (U) Negative Negative [facility] Work Phone: Ketones Test strip Ql (U)on 03-12-2022 Ketones Ql (U) Negative Negative [facility] Work Phone: Mucus LM Ql (Urine sed)on Mucus Ql (Urine sed) 0 SEEN /hpf [facility] Work Phone: Nitrite Test strip Ql (U)on 03-12-2022 Nitrite Ql (U) Negative Negative [facility] Work Phone: Protein Test strip Ql (U)on 03-12-2022 Protein Ql (U) Negative Negative [facility] Work Phone: Squamous epithelial cells de tection in urine sediment by light microscopyon 03-12-2022 Epithelial cells.squamous LM Ql (Urine sed) 0 SEEN /hpf 5-[address] [facility] Work Phone: Urine blood detectionon RBC Ql (U) Negative Negative [facility] Work Phone: RBC Ql (U) 0 SEEN /hpf 0-[address] [facility] Work Phone: Urine clarityon 03-12-2022 Clarity (U) Clear Clear [facility] Work Phone: Urine color determinationon 03-12-2022 Color (U) Straw Yellow [facility] Work Phone: Urine glucose detectionon Glucose Ql (U) Normal mg/dl Normal [facility] Work Phone: Urine leukocyte esterase det ection by dipstickon 03-12-2022 Leukocyte esterase Test strip Ql (U) Negative Negative [facility] Work Phone: Urine pHon 03-12-2022 pH (U) 6.5 [pH] 5.0 - 8.[address] [facility] Work Phone: Urine sediment bacteria coun t by microscopy (number/high power field)on 03-12-2022 Bacteria LM.HPF (Urine sed) [#/Area] 0 /[HPF] None Seen [facility] Work Phone: Urine specific gravity measu rementon 03-12-2022 Specific gravity (U) [Rel density] 1.015 1.002-1.[address] [facility] Work Phone: Urobilinogen Auto test strip Ql (U)on 03-12-2022 Urobilinogen Ql (U) Normal mg/dl Normal [facility] Work Phone: Basophil percentageon 2021 Basophil percentage 0-5 SEEN /hpf 0-5 [facility] Work Phone: Bilirubin [Mass/Vol] 0.60 mg/dL 0.20-1.00 [facility] Work Phone: Comment on above: For patients on eltr ombopag therapy, use of Dimension [place] TBIL is not recommended. Chloride [Moles/Vol] 108 mmol/L 98-107 [facility] Work Phone: Glucose [Mass/Vol] 103 mg/dL 74-106 [facility] Work Phone: Comment on above: Fasting Glucose resu lt from 100 to 125 mg/dL suggests IMPAIRED HOMEOSTASIS per A.D.A. criteria. Potassium [Moles/Vol] 3.9 mmol/L 3.5-5.1 [facility] Work Phone: Protein [Mass/Vol] 7.2 g/dL 6.4-8.2 [facility] Work Phone: Sodium [Moles/Vol] 142 mmol/L 136-145 [facility] Work Phone: Bilirubin Test strip Ql (U)o n 03-08-2022 Bilirubin Ql (U) Negative Negative [facility] Work Phone: Ketones Test strip Ql (U)on 03-08-2022 Ketones Ql (U) Negative Negative [facility] Work Phone: Laboratory - Chemistry and C hemistry - challengeon 03-08-2022 ALP [Catalytic activity/Vol] 119 U/L 45-[address] [facility] Work Phone: ALT [Catalytic activity/Vol] 21 U/L 13-[address] [facility] Work Phone: CO2 [Moles/Vol] 28.0 mmol/L 21.0-32.[address] [facility] Work Phone: Globulin (S) [Mass/Vol] 3.4 g/dL 2.2-4.2 [facility] Work Phone: [phone] Urea nitrogen/Creatinine [Mass ratio] 22.8 mg/mg 10-[address] [facility] Work Phone: Mucus LM Ql (Urine sed)on Mucus Ql (Urine sed) 0 SEEN /hpf [facility] Work Phone: Nitrite Test strip Ql (U)on 03-08-2022 Nitrite Ql (U) Positive Negative [facility] Work Phone: No Panel Informationon 03-08 Estimated GFR (MDRD) Amer 78 mL/min >[address] [facility] Work Phone: Comment on above: GFR Calc Estimated GFR (MDRD) Non-Af Amer 64 mL/min >[address] [facility] Work Phone: Comment on above: Non- GFR Calc Protein Test strip Ql (U)on 03-08-2022 Protein Ql (U) Negative Negative [facility] Work Phone: Serum or plasma albumin sonali urement (mass/volume)on 03-08-2022 Albumin [Mass/Vol] 3.8 g/dL 3.2-5.0 [facility] Work Phone: Serum or plasma albumin/glob ulin mass ratioon 03-08-2022 Albumin/Globulin [Mass ratio] 1.1 {ratio} 0.9-2.[address] [facility] Work Phone: Serum or plasma calcium sonali urement (mass/volume)on 03-08-2022 Calcium [Mass/Vol] 9.2 mg/dL 8.5-10.1 [facility] Work Phone: Serum or plasma creatinine m easurement (mass/volume)on 03-08-2022 Creatinine [Mass/Vol] 0.92 mg/dL 0.55-1.02 [facility] Work Phone: Comment on above: The validity of the calculated GFR & GFRAA in patients over 70 years has not been determined. Clinical correlation is essential. Serum or plasma urea nitroge n measurement (mass/volume)on 03-08-2022 Urea nitrogen [Mass/Vol] 21 mg/dL 7-[address] [facility] Work Phone: Squamous epithelial cells de tection in urine sediment by light microscopyon 03-08-2022 Epithelial cells.squamous LM Ql (Urine sed) 0-5 SEEN /hpf 5-[address] [facility] Work Phone: Thin prep Papanicolaou smear with manual screeningon 03-08-2022 Thin prep Papanicolaou smear with manual screening 16 U/L 15-[address] [facility] Work Phone: Thin prep Papanicolaou smear with manual screening 6 5-[address] [facility] Work Phone: Urine blood detectionon 02-09 RBC Ql (U) Negative Negative [facility] Work Phone: RBC Ql (U) 0 SEEN /hpf 0-[address] [facility] Work Phone: Urine clarityon 03-08-2022 Clarity (U) Sl. Cloudy Clear [facility] Work Phone: Urine color determinationon 03-08-2022 Color (U) Yellow Yellow [facility] Work Phone: Urine glucose detectionon Glucose Ql (U) Normal mg/dl Normal [facility] Work Phone: Urine leukocyte esterase det ection by dipstickon 03-08-2022 Leukocyte esterase Test strip Ql (U) Negative Negative [facility] Work Phone: Urine pHon 03-08-2022 pH (U) 7.0 [pH] 5.0 - 8.[address] [facility] Work Phone: Urine sediment bacteria coun t by microscopy (number/high power field)on 03-08-2022 Bacteria LM.HPF (Urine sed) [#/Area] 4 /[HPF] None Seen [facility] Work Phone: Urine specific gravity measu rementon 03-08-2022 Specific gravity (U) [Rel density] 1.010 1.002-1.[address] [facility] Work Phone: Urobilinogen Auto test strip Ql (U)on 03-08-2022 Urobilinogen Ql (U) Normal mg/dl Normal [facility] Work Phone: Absolute lymphocyte counton 02-23-2022 Lymphocytes Auto (Unsp spec) [#/Vol] 2.92 10*3/uL 0.83-4.[address] [facility] Work Phone: Basophil percentageon 2021 Basophils/100 WBC (Bld) 0.6 % 0-1 [facility] Work Phone: Bilirubin [Mass/Vol] 0.20 mg/dL 0.20-1.00 [facility] Work Phone: Comment on above: For patients on eltr ombopag therapy, use of Dimension [place] TBIL is not recommended. Chloride [Moles/Vol] 111 mmol/L 98-107 [facility] Work Phone: Eosinophils/100 WBC (Bld) 2.9 % 0-[address] [facility] Work Phone: Glucose [Mass/Vol] 146 mg/dL 74-106 [facility] Work Phone: Comment on above: Fasting Glucose resu lt greater than or equal to 126 mg/dL suggests DIABETES MELLITUS per A.D.A. criteria. Neutrophils (Bld) [#/Vol] 3.7 10*3/uL 2.0-7.[address] [facility] Work Phone: Neutrophils/100 WBC (Bld) 50.7 % 47-[address] [facility] Work Phone: Potassium [Moles/Vol] 3.9 mmol/L 3.5-5.1 [facility] Work Phone: Protein [Mass/Vol] 6.7 g/dL 6.4-8.2 [facility] Work Phone: Sodium [Moles/Vol] 142 mmol/L 136-145 [facility] Work Phone: WBC (Bld) [#/Vol] 7.2 10*3/uL 4.4-11.0 [facility] Work Phone: Blood erythrocytes count (nu mber/volume)on 02-23-2022 RBC (Bld) [#/Vol] 3.71 10*6/uL 4.2-5.4 [facility] Work Phone: Blood hemoglobin measurement (mass/volume)on 02-23-2022 Hemoglobin (Bld) [Mass/Vol] 11.1 g/dL 12.0-15.[address] [facility] Work Phone: Blood lymphocytes/100 leukoc yteson 02-23-2022 Lymphocytes/100 WBC (Bld) 40.5 % 19-[address] [facility] Work Phone: [phone] Blood monocytes/100 leukocyt eson 02-23-2022 Monocytes/100 WBC (Bld) 5.0 % 0-10 [facility] Work Phone: Blood platelet mean volumeon 02-23-2022 Platelet mean volume (Bld) [Entitic vol] 9.0 fL 6.2-12.[address] [facility] Work Phone: Determination of erythrocyte mean corpuscular volume (MCV)on 02-23-2022 MCV (RBC) [Entitic vol] 95.1 fL 81-99 [facility] Work Phone: Hematocrit Auto (Bld) [Volum e fraction]on 02-23-2022 Hematocrit (Bld) [Volume fraction] 35.3 % 37-[address] [facility] Work Phone: Laboratory - Chemistry and C hemistry - challengeon 02-23-2022 ALP [Catalytic activity/Vol] 109 U/L 45-[address] [facility] Work Phone: ALT [Catalytic activity/Vol] 21 U/L 13-[address] [facility] Work Phone: CO2 [Moles/Vol] 27.0 mmol/L 21.0-32.[address] [facility] Work Phone: Globulin (S) [Mass/Vol] 3.3 g/dL 2.2-4.2 [facility] Work Phone: Urea nitrogen/Creatinine [Mass ratio] 22.7 mg/mg 10-[address] [facility] Work Phone: Laboratory - Hematology and Cell countson 02-23-2022 Erythrocyte distribution width (RBC) [Entitic vol] 51.8 fL 35.1-43.9 [facility] Work Phone: [phone] Erythrocyte distribution width (RBC) [Ratio] 14.8 % 11.6-14.[address] [facility] Work Phone: [phone] Immature granulocytes/100 WBC (Bld) 0.300 % 0.0-0.[address] [facility] Work Phone: [phone] Comment on above: IG% - Immature Granu locytes (promyelocytes, myelocytes and metamyelocytes) > 1% indicates that a LEFT SHIFT is Present. MCH (RBC) [Entitic mass] 29.9 pg 27.0-32.[address] [facility] Work Phone: [phone] Nucleated RBC/100 WBC (Bld) [Ratio] 0 % 0-[address] [facility] Work Phone: [phone] MCHC Auto (RBC) [Mass/Vol]on 02-23-2022 MCHC (RBC) [Mass/Vol] 31.4 g/dL 32-36 [facility] Work Phone: No Panel Informationon 02-23 Estimated GFR (MDRD) Amer 82 mL/min >[address] [facility] Work Phone: [phone] Comment on above: GFR Calc Estimated GFR (MDRD) Non-Af Amer 68 mL/min >[address] [facility] Work Phone: [phone] Comment on above: Non- GFR Calc Platelets bldon 02-23-2022 Platelets (Bld) [#/Vol] 337 10*3/uL 150-[address] [facility] Work Phone: [phone] Serum or plasma albumin sonali urement (mass/volume)on 02-23-2022 Albumin [Mass/Vol] 3.4 g/dL 3.2-5.0 [facility] Work Phone: [phone] Serum or plasma albumin/glob ulin mass ratioon 02-23-2022 Albumin/Globulin [Mass ratio] 1.0 {ratio} 0.9-2.[address] [facility] Work Phone: Serum or plasma calcium sonali urement (mass/volume)on 02-23-2022 Calcium [Mass/Vol] 8.8 mg/dL 8.5-10.1 [facility] Work Phone: Serum or plasma creatinine m easurement (mass/volume)on 02-23-2022 Creatinine [Mass/Vol] 0.88 mg/dL 0.55-1.02 [facility] Work Phone: Comment on above: The validity of the calculated GFR & GFRAA in patients over 70 years has not been determined. Clinical correlation is essential. Serum or plasma urea nitroge n measurement (mass/volume)on 02-23-2022 Urea nitrogen [Mass/Vol] 20 mg/dL 7-[address] [facility] Work Phone: Thin prep Papanicolaou smear with manual screeningon 02-23-2022 Thin prep Papanicolaou smear with manual screening 15 U/L 15-[address] [facility] Work Phone: Thin prep Papanicolaou smear with manual screening 4 5-[address] [facility] Work Phone: Basophil percentageon 2021 Basophil percentage 0-5 SEEN /hpf 0-5 [facility] Work Phone: Chloride [Moles/Vol] 108 mmol/L 98-107 [facility] Work Phone: Glucose [Mass/Vol] 108 mg/dL 74-106 [facility] Work Phone: Comment on above: Fasting Glucose resu lt from 100 to 125 mg/dL suggests IMPAIRED HOMEOSTASIS per A.D.A. criteria. Potassium [Moles/Vol] 3.8 mmol/L 3.5-5.1 [facility] Work Phone: Sodium [Moles/Vol] 140 mmol/L 136-145 [facility] Work Phone: Bilirubin Test strip Ql (U)o n 02-19-2022 Bilirubin Ql (U) Negative Negative [facility] Work Phone: [phone] Iron measurement (mass/mass) on 02-19-2022 Iron (Unsp spec) [Mass/Mass] 25 ug/dL 50-[address] [facility] Work Phone: Ketones Test strip Ql (U)on 02-19-2022 Ketones Ql (U) Negative Negative [facility] Work Phone: Laboratory - Chemistry and C hemistry - challengeon 02-19-2022 CO2 [Moles/Vol] 28.0 mmol/L 21.0-32.[address] [facility] Work Phone: Urea nitrogen/Creatinine [Mass ratio] 25.1 mg/mg 10-[address] [facility] Work Phone: Bilirubin Ql (U) Small (1+) [facility] Work Phone: Glucose Ql (U) Negative [facility] Work Phone: Ketones Ql (U) Trace (5) [facility] Work Phone: pH (U) 6.5 [pH] [facility] Work Phone: Specific gravity (U) [Rel density] 1.[address] [facility] Work Phone: Urobilinogen (U) [Mass/Vol] 0.8813994 mg/dL [facility] Work Phone: Laboratory - Hematology and Cell countson 02-19-2022 Hemoglobin Ql (U) Negative [facility] Work Phone: Laboratory - Specimen inform ationon 02-19-2022 Clarity (U) Clear [facility] Work Phone: Color (U) Yellow [facility] Work Phone: Laboratory - Urinalysison Nitrite Ql (U) Positive [facility] Work Phone: Protein Ql (U) Trace [facility] Work Phone: Mucus LM Ql (Urine sed)on Mucus Ql (Urine sed) 0 SEEN /hpf [facility] Work Phone: Nitrite Test strip Ql (U)on 02-19-2022 Nitrite Ql (U) Positive Negative [facility] Work Phone: No Panel Informationon 02-19 Estimated GFR (MDRD) Amer 87 mL/min >[address] [facility] Work Phone: Comment on above: GFR Calc Estimated GFR (MDRD) Non-Af Amer 72 mL/min >[address] [facility] Work Phone: Comment on above: Non- GFR Calc Total Iron Binding Capacity 410 ug/dL 250-[address] [facility] Work Phone: Urine Leukocytes Positive [facility] Work Phone: [phone] Urine Non-Hemolyzed Blood Non-Hemolyzed [facility] Work Phone: Protein Test strip Ql (U)on 02-19-2022 Protein Ql (U) Negative Negative [facility] Work Phone: [phone] Serum or plasma calcium sonali urement (mass/volume)on 02-19-2022 Calcium [Mass/Vol] 8.9 mg/dL 8.5-10.1 [facility] Work Phone: [phone] Serum or plasma creatinine m easurement (mass/volume)on 02-19-2022 Creatinine [Mass/Vol] 0.84 mg/dL 0.55-1.02 [facility] Work Phone: Comment on above: The validity of the calculated GFR & GFRAA in patients over 70 years has not been determined. Clinical correlation is essential. Serum or plasma ferritin lloyd surement (mass/volume)on 02-19-2022 Ferritin [Mass/Vol] 8 ng/mL 8-252 [facility] Work Phone: [phone] Serum or plasma urea nitroge n measurement (mass/volume)on 02-19-2022 Urea nitrogen [Mass/Vol] 21 mg/dL 7-[address] [facility] Work Phone: [phone] Squamous epithelial cells de tection in urine sediment by light microscopyon 02-19-2022 Epithelial cells.squamous LM Ql (Urine sed) 0-5 SEEN /hpf 5-[address] [facility] Work Phone: Thin prep Papanicolaou smear with manual screeningon 02-19-2022 Thin prep Papanicolaou smear with manual screening 4 5-[address] [facility] Work Phone: Urine blood detectionon 02-08 RBC Ql (U) Negative Negative [facility] Work Phone: RBC Ql (U) 0 SEEN /hpf 0-[address] [facility] Work Phone: Urine clarityon 02-19-2022 Clarity (U) Clear Clear [facility] Work Phone: Urine color determinationon 02-19-2022 Color (U) Yellow Yellow [facility] Work Phone: Urine glucose detectionon Glucose Ql (U) Normal mg/dl Normal [facility] Work Phone: Urine leukocyte esterase det ection by dipstickon 02-19-2022 Leukocyte esterase Test strip Ql (U) 25 /ul Negative [facility] Work Phone: Urine pHon 02-19-2022 pH (U) 6.0 [pH] 5.0 - 8.[address] [facility] Work Phone: Urine sediment bacteria coun t by microscopy (number/high power field)on 02-19-2022 Bacteria LM.HPF (Urine sed) [#/Area] 4 /[HPF] None Seen [facility] Work Phone: Urine specific gravity measu rementon 02-19-2022 Specific gravity (U) [Rel density] 1.020 1.002-1.[address] [facility] Work Phone: Urobilinogen Auto test strip Ql (U)on 02-19-2022 Urobilinogen Ql (U) Normal mg/dl Normal [facility] Work Phone: Basophil percentageon 2021 Bilirubin [Mass/Vol] 0.20 mg/dL 0.20-1.00 [facility] Work Phone: Comment on above: For patients on eltr ombopag therapy, use of Dimension [place] TBIL is not recommended. Chloride [Moles/Vol] 108 mmol/L 98-107 [facility] Work Phone: [phone] Glucose [Mass/Vol] 109 mg/dL 74-106 [facility] Work Phone: [phone] Comment on above: Fasting Glucose resu lt from 100 to 125 mg/dL suggests IMPAIRED HOMEOSTASIS per A.D.A. criteria. Potassium [Moles/Vol] 3.4 mmol/L 3.5-5.1 [facility] Work Phone: [phone] Protein [Mass/Vol] 6.8 g/dL 6.4-8.2 [facility] Work Phone: [phone] Sodium [Moles/Vol] 140 mmol/L 136-145 [facility] Work Phone: [phone] WBC (Bld) [#/Vol] 9.3 10*3/uL 4.4-11.0 [facility] Work Phone: [phone] Blood erythrocytes count (nu mber/volume)on 02-14-2022 RBC (Bld) [#/Vol] 3.65 10*6/uL 4.2-5.4 [facility] Work Phone: [phone] Blood hemoglobin measurement (mass/volume)on 02-14-2022 Hemoglobin (Bld) [Mass/Vol] 10.8 g/dL 12.0-15.[address] [facility] Work Phone: [phone] Blood platelet mean volumeon 02-14-2022 Platelet mean volume (Bld) [Entitic vol] 9.3 fL 6.2-12.[address] [facility] Work Phone: [phone] Determination of erythrocyte mean corpuscular volume (MCV)on 02-14-2022 MCV (RBC) [Entitic vol] 94.5 fL 81-99 [facility] Work Phone: [phone] Hematocrit Auto (Bld) [Volum e fraction]on 02-14-2022 Hematocrit (Bld) [Volume fraction] 34.5 % 37-[address] [facility] Work Phone: Laboratory - Chemistry and C hemistry - challengeon 02-14-2022 ALP [Catalytic activity/Vol] 104 U/L 45-[address] [facility] Work Phone: ALT [Catalytic activity/Vol] 22 U/L 13-[address] [facility] Work Phone: [phone] CO2 [Moles/Vol] 25.0 mmol/L 21.0-32.[address] [facility] Work Phone: [phone] Free T4 [Mass/Vol] 0.90 ng/dL 0.76-1.46 [facility] Work Phone: Globulin (S) [Mass/Vol] 3.4 g/dL 2.2-4.2 [facility] Work Phone: [phone] Urea nitrogen/Creatinine [Mass ratio] 30.9 mg/mg 10-[address] [facility] Work Phone: [phone] Laboratory - Hematology and Cell countson 02-14-2022 Erythrocyte distribution width (RBC) [Entitic vol] 52.8 fL 35.1-43.9 [facility] Work Phone: Erythrocyte distribution width (RBC) [Ratio] 15.2 % 11.6-14.[address] [facility] Work Phone: [phone] MCH (RBC) [Entitic mass] 29.6 pg 27.0-32.[address] [facility] Work Phone: [phone] MCHC Auto (RBC) [Mass/Vol]on 02-14-2022 MCHC (RBC) [Mass/Vol] 31.3 g/dL 32-36 [facility] Work Phone: No Panel Informationon 02-14 Estimated GFR (MDRD) Amer 79 mL/min >[address] [facility] Work Phone: Comment on above: GFR Calc Estimated GFR (MDRD) Non-Af Amer 65 mL/min >[address] [facility] Work Phone: [phone] Comment on above: Non- GFR Calc Free Triiodothyronine (T3) pg/dL 2.1 pg/mL 2.18-3.[address] [facility] Work Phone: Thyroid Stimulating Hormone (TSH) 2.40 uIU/mL 0.358-3.[address] [facility] Work Phone: Platelets bldon 02-14-2022 Platelets (Bld) [#/Vol] 409 10*3/uL 150-[address] [facility] Work Phone: Serum or plasma albumin sonali urement (mass/volume)on 02-14-2022 Albumin [Mass/Vol] 3.4 g/dL 3.2-5.0 [facility] Work Phone: Serum or plasma albumin/glob ulin mass ratioon 02-14-2022 Albumin/Globulin [Mass ratio] 1.0 {ratio} 0.9-2.[address] [facility] Work Phone: [phone] Serum or plasma calcium sonali urement (mass/volume)on 02-14-2022 Calcium [Mass/Vol] 8.6 mg/dL 8.5-10.1 [facility] Work Phone: Serum or plasma creatinine m easurement (mass/volume)on 02-14-2022 Creatinine [Mass/Vol] 0.91 mg/dL 0.55-1.02 [facility] Work Phone: Comment on above: The validity of the calculated GFR & GFRAA in patients over 70 years has not been determined. Clinical correlation is essential. Serum or plasma urea nitroge n measurement (mass/volume)on 02-14-2022 Urea nitrogen [Mass/Vol] 28 mg/dL 7-[address] [facility] Work Phone: [phone] Thin prep Papanicolaou smear with manual screeningon 02-14-2022 Thin prep Papanicolaou smear with manual screening 14 U/L 15-[address] [facility] Work Phone: [phone] Thin prep Papanicolaou smear with manual screening 7 5-[address] [facility] Work Phone: Basophil percentageon 2021 Chloride [Moles/Vol] 111 mmol/L 98-[address] [facility] Work Phone: Glucose [Mass/Vol] 85 mg/dL 74-106 [facility] Work Phone: Potassium [Moles/Vol] 3.8 mmol/L 3.5-5.[address] [facility] Work Phone: Sodium [Moles/Vol] 145 mmol/L 136-145 [facility] Work Phone: Laboratory - Chemistry and C hemistry - challengeon 02-06-2022 CO2 [Moles/Vol] 30.0 mmol/L 21.0-32.[address] [facility] Work Phone: Urea nitrogen/Creatinine [Mass ratio] 20.7 mg/mg 10-[address] [facility] Work Phone: No Panel Informationon 02-06 Adrenocorticotropic Hormone 12.9 pg/mL 7.2-63.[address] [facility] Work Phone: Comment on above: ACTH reference inter scot for samples collected between 7 and10 AM.Performed at: [facility] [id number] Director: Brian Bautista PhD, Phone: [phone] Estimated GFR (MDRD) Amer 74 mL/min >[address] [facility] Work Phone: Comment on above: GFR Calc Estimated GFR (MDRD) Non-Af Amer 61 mL/min >[address] [facility] Work Phone: Comment on above: Non- GFR Calc Serum or plasma calcium sonali urement (mass/volume)on 02-06-2022 Calcium [Mass/Vol] 8.6 mg/dL 8.5-10.1 [facility] Work Phone: Serum or plasma cortisol lloyd surement (mass/volume)on 02-06-2022 Cortisol [Mass/Vol] 1.70 ug/dL 3.44-22.45 [facility] Work Phone: Comment on above: Adult (AM) 5.27 - 22 .45 ug/dL Adult (PM) 3.44 - 16.76 ug/dLPlease note revised CORTISOL reference range effective 2019. Serum or plasma creatinine m easurement (mass/volume)on 02-06-2022 Creatinine [Mass/Vol] 0.96 mg/dL 0.55-1.02 [facility] Work Phone: Comment on above: The validity of the calculated GFR & GFRAA in patients over 70 years has not been determined. Clinical correlation is essential. Serum or plasma urea nitroge n measurement (mass/volume)on 02-06-2022 Urea nitrogen [Mass/Vol] 20 mg/dL 7-[address] [facility] Work Phone: Thin prep Papanicolaou smear with manual screeningon 02-06-2022 Thin prep Papanicolaou smear with manual screening 4 5-[address] [facility] Work Phone: Absolute lymphocyte counton 02-01-2022 Lymphocytes Auto (Unsp spec) [#/Vol] 4.33 10*3/uL 0.83-4.[address] [facility] Work Phone: Basophil percentageon 2021 Basophils/100 WBC (Bld) 0.4 % 0-1 [facility] Work Phone: Bilirubin [Mass/Vol] 0.40 mg/dL 0.20-1.00 [facility] Work Phone: Comment on above: For patients on eltr ombopag therapy, use of Dimension [place] TBIL is not recommended. Chloride [Moles/Vol] 107 mmol/L 98-107 [facility] Work Phone: Eosinophils/100 WBC (Bld) 0.8 % 0-[address] [facility] Work Phone: Glucose [Mass/Vol] 106 mg/dL 74-106 [facility] Work Phone: Comment on above: Fasting Glucose resu lt from 100 to 125 mg/dL suggests IMPAIRED HOMEOSTASIS per A.D.A. criteria. Neutrophils (Bld) [#/Vol] 4.8 10*3/uL 2.0-7.[address] [facility] Work Phone: [phone] Neutrophils/100 WBC (Bld) 49.3 % 47-[address] [facility] Work Phone: [phone] Potassium [Moles/Vol] 2.7 mmol/L 3.5-5.1 [facility]: [phone] Comment on above: Critical Result(s) C alled at: 16:40:37 02/01/2022 by: Helio Al to Inder Marina RN (ER). Results read back by same. Protein [Mass/Vol] 7.6 g/dL 6.4-8.2 [facility] Work Phone: [phone] Sodium [Moles/Vol] 140 mmol/L 136-145 [facility] Work Phone: [phone] WBC (Bld) [#/Vol] 9.8 10*3/uL 4.4-11.0 [facility] Work Phone: Blood erythrocytes count (nu mber/volume)on 02-01-2022 RBC (Bld) [#/Vol] 3.88 10*6/uL 4.2-5.4 [facility] Work Phone: Blood hemoglobin measurement (mass/volume)on 02-01-2022 Hemoglobin (Bld) [Mass/Vol] 11.5 g/dL 12.0-15.[address] [facility] Work Phone: [phone] Blood lymphocytes/100 leukoc yteson 02-01-2022 Lymphocytes/100 WBC (Bld) 44.4 % 19-[address] [facility] Work Phone: [phone] Blood monocytes/100 leukocyt eson 02-01-2022 Monocytes/100 WBC (Bld) 5.0 % 0-10 [facility] Work Phone: Blood platelet mean volumeon 02-01-2022 Platelet mean volume (Bld) [Entitic vol] 9.8 fL 6.2-12.[address] [facility] Work Phone: Determination of erythrocyte mean corpuscular volume (MCV)on 02-01-2022 MCV (RBC) [Entitic vol] 89.4 fL 81-99 [facility] Work Phone: [phone] Hematocrit Auto (Bld) [Volum e fraction]on 02-01-2022 Hematocrit (Bld) [Volume fraction] 34.7 % 37-[address] [facility] Work Phone: [phone] Laboratory - Chemistry and C hemistry - challengeon 02-01-2022 ALP [Catalytic activity/Vol] 110 U/L 45-[address] [facility] Work Phone: [phone] ALT [Catalytic activity/Vol] 27 U/L 13-[address] [facility] Work Phone: [phone] CO2 [Moles/Vol] 25.0 mmol/L 21.0-32.[address] [facility] Work Phone: [phone] Globulin (S) [Mass/Vol] 3.5 g/dL 2.2-4.2 [facility] Work Phone: [phone] Urea nitrogen/Creatinine [Mass ratio] 30.3 mg/mg 10-[address] [facility] Work Phone: [phone] Laboratory - Hematology and Cell countson 02-01-2022 Erythrocyte distribution width (RBC) [Entitic vol] 47.8 fL 35.1-43.9 [facility] Work Phone: [phone] Erythrocyte distribution width (RBC) [Ratio] 14.6 % 11.6-14.[address] [facility] Work Phone: [phone] Immature granulocytes/100 WBC (Bld) 0.100 % 0.0-0.[address] [facility] Work Phone: [phone] Comment on above: IG% - Immature Granu locytes (promyelocytes, myelocytes and metamyelocytes) > 1% indicates that a LEFT SHIFT is Present. MCH (RBC) [Entitic mass] 29.6 pg 27.0-32.[address] [facility] Work Phone: Nucleated RBC/100 WBC (Bld) [Ratio] 0 % 0-[address] [facility] Work Phone: [phone] MCHC Auto (RBC) [Mass/Vol]on 02-01-2022 MCHC (RBC) [Mass/Vol] 33.1 g/dL 32-36 [facility] Work Phone: No Panel Informationon 02-01 Estimated Creatinine Clearance Calc 48.26 ml/min [facility] Work Phone: Estimated GFR (MDRD) Amer 72 mL/min >[address] [facility] Work Phone: Comment on above: GFR Calc Estimated GFR (MDRD) Non-Af Amer 59 mL/min >[address] [facility] Work Phone: Comment on above: Non- GFR Calc Platelets bldon 02-01-2022 Platelets (Bld) [#/Vol] 366 10*3/uL 150-[address] [facility] Work Phone: Serum or plasma albumin sonali urement (mass/volume)on 02-01-2022 Albumin [Mass/Vol] 4.1 g/dL 3.2-5.0 [facility] Work Phone: Serum or plasma albumin/glob ulin mass ratioon 02-01-2022 Albumin/Globulin [Mass ratio] 1.2 {ratio} 0.9-2.[address] [facility] Work Phone: Serum or plasma calcium sonali urement (mass/volume)on 02-01-2022 Calcium [Mass/Vol] 9.3 mg/dL 8.5-10.1 [facility] Work Phone: Serum or plasma cortisol lloyd surement (mass/volume)on 02-01-2022 Cortisol [Mass/Vol] 0.70 ug/dL 3.44-22.45 [facility] Work Phone: Comment on above: Adult (AM) 5.27 - 22 .45 ug/dL Adult (PM) 3.44 - 16.76 ug/dLPlease note revised CORTISOL reference range effective 2019. Serum or plasma creatinine m easurement (mass/volume)on 02-01-2022 Creatinine [Mass/Vol] 0.99 mg/dL 0.55-1.02 [facility] Work Phone: Comment on above: The validity of the calculated GFR & GFRAA in patients over 70 years has not been determined. Clinical correlation is essential. Serum or plasma urea nitroge n measurement (mass/volume)on 02-01-2022 Urea nitrogen [Mass/Vol] 30 mg/dL 7-[address] [facility] Work Phone: Thin prep Papanicolaou smear with manual screeningon 02-01-2022 Thin prep Papanicolaou smear with manual screening 22 U/L 15-[address] [facility] Work Phone: Thin prep Papanicolaou smear with manual screening 8 5-[address] [facility] Work Phone: Absolute lymphocyte counton 01-30-2022 Lymphocytes Auto (Unsp spec) [#/Vol] 2.12 10*3/uL 0.83-4.[address] [facility] Work Phone: Basophil percentageon 2021 Basophils/100 WBC (Bld) 0.1 % 0-1 [facility] Work Phone: Bilirubin [Mass/Vol] 0.50 mg/dL 0.20-1.00 [facility] Work Phone: Comment on above: For patients on eltr ombopag therapy, use of Dimension [place] TBIL is not recommended. Chloride [Moles/Vol] 103 mmol/L 98-107 [facility] Work Phone: Eosinophils/100 WBC (Bld) 0.3 % 0-[address] [facility] Work Phone: Glucose [Mass/Vol] 164 mg/dL 74-106 [facility] Work Phone: Comment on above: Fasting Glucose resu lt greater than or equal to 126 mg/dL suggests DIABETES MELLITUS per A.D.A. criteria. Neutrophils (Bld) [#/Vol] 7.6 10*3/uL 2.0-7.[address] [facility] Work Phone: Neutrophils/100 WBC (Bld) 73.9 % 47-[address] [facility] Work Phone: Potassium [Moles/Vol] 2.9 mmol/L 3.5-5.1 [facility] Work Phone: Protein [Mass/Vol] 7.8 g/dL 6.4-8.2 [facility] Work Phone: Sodium [Moles/Vol] 138 mmol/L 136-145 [facility] Work Phone: WBC (Bld) [#/Vol] 10.2 10*3/uL 4.4-11.0 [facility] Work [facility]: Blood erythrocytes count (nu mber/volume)on 01-30-2022 RBC (Bld) [#/Vol] 4.14 10*6/uL 4.2-5.4 [facility] Work Phone: Blood hemoglobin measurement (mass/volume)on 01-30-2022 Hemoglobin (Bld) [Mass/Vol] 12.2 g/dL 12.0-15.[address] [facility] Work Phone: Blood lymphocytes/100 leukoc yteson 01-30-2022 Lymphocytes/100 WBC (Bld) 20.8 % 19-[address] [facility] Work Phone: Blood monocytes/100 leukocyt eson 01-30-2022 Monocytes/100 WBC (Bld) 4.4 % 0-10 [facility] Work Phone: Blood platelet mean volumeon 01-30-2022 Platelet mean volume (Bld) [Entitic vol] 9.9 fL 6.2-12.[address] [facility] Work Phone: Determination of erythrocyte mean corpuscular volume (MCV)on 01-30-2022 MCV (RBC) [Entitic vol] 89.9 fL 81-99 [facility] Work Phone: Hematocrit Auto (Bld) [Volum e fraction]on 01-30-2022 Hematocrit (Bld) [Volume fraction] 37.2 % 37-[address] [facility] Work Phone: [phone] Laboratory - Chemistry and C hemistry - challengeon 01-30-2022 ALP [Catalytic activity/Vol] 120 U/L 45-[address] [facility] Work Phone: [phone] ALT [Catalytic activity/Vol] 27 U/L 13-[address] [facility] Work Phone: [phone] CO2 [Moles/Vol] 25.0 mmol/L 21.0-32.[address] [facility] Work Phone: [phone] Globulin (S) [Mass/Vol] 3.8 g/dL 2.2-4.2 [facility] Work Phone: [phone] Urea nitrogen/Creatinine [Mass ratio] 18.0 mg/mg 10-[address] [facility] Work Phone: [phone] Laboratory - Hematology and Cell countson 01-30-2022 Erythrocyte distribution width (RBC) [Entitic vol] 45.2 fL 35.1-43.9 [facility] Work Phone: [phone] Erythrocyte distribution width (RBC) [Ratio] 14.0 % 11.6-14.[address] [facility] Work Phone: [phone] Immature granulocytes/100 WBC (Bld) 0.500 % 0.0-0.[address] [facility] Work Phone: [phone] Comment on above: IG% - Immature Granu locytes (promyelocytes, myelocytes and metamyelocytes) > 1% indicates that a LEFT SHIFT is Present. MCH (RBC) [Entitic mass] 29.5 pg 27.0-32.[address] [facility] Work Phone: [phone] Nucleated RBC/100 WBC (Bld) [Ratio] 0 % 0-[address] [facility] Work Phone: [phone] MCHC Auto (RBC) [Mass/Vol]on 01-30-2022 MCHC (RBC) [Mass/Vol] 32.8 g/dL 32-36 [facility] Work Phone: [phone] Panel Informationon 01-30 Estimated GFR (MDRD) Amer 48 mL/min >[address] [facility] Work Phone: Comment on above: GFR Calc Estimated GFR (MDRD) Non-Af Amer 40 mL/min >[address] [facility] Work Phone: Comment on above: Non- GFR Calc Platelets bldon 01-30-2022 Platelets (Bld) [#/Vol] 399 10*3/uL 150-[address] [facility] Work Phone: Serum or plasma albumin sonali urement (mass/volume)on 01-30-2022 Albumin [Mass/Vol] 4.0 g/dL 3.2-5.0 [facility] Work Phone: Serum or plasma albumin/glob ulin mass ratioon 01-30-2022 Albumin/Globulin [Mass ratio] 1.1 {ratio} 0.9-2.[address] [facility] Work Phone: Serum or plasma calcium sonali urement (mass/volume)on 01-30-2022 Calcium [Mass/Vol] 9.4 mg/dL 8.5-10.1 [facility] Work Phone: Serum or plasma creatinine m easurement (mass/volume)on 01-30-2022 Creatinine [Mass/Vol] 1.39 mg/dL 0.55-1.02 [facility] Work Phone: Comment on above: The validity of the calculated GFR & GFRAA in patients over 70 years has not been determined. Clinical correlation is essential. Serum or plasma urea nitroge n measurement (mass/volume)on 01-30-2022 Urea nitrogen [Mass/Vol] 25 mg/dL 7-[address] [facility] Work Phone: Thin prep Papanicolaou smear with manual screeningon 01-30-2022 Thin prep Papanicolaou smear with manual screening 21 U/L 15-[address] [facility] Work Phone: [phone] Thin prep Papanicolaou smear with manual screening 10 5-[address] [facility] Work Phone: [phone] Thin prep Papanicolaou smear with manual screeningon 12-28-2021 Thin prep Papanicolaou smear with manual screening 6.2 mg/L NO RANGE EST. [facility] Work Phone: Absolute lymphocyte counton 12-25-2021 Lymphocytes Auto (Unsp spec) [#/Vol] 2.63 10*3/uL 0.83-4.[address] [facility] Work Phone: Basophil percentageon 2021 Basophils/100 WBC (Bld) 0.7 % 0-1 [facility] Work Phone: Bilirubin [Mass/Vol] 0.30 mg/dL 0.20-1.00 [facility] Work Phone: Comment on above: For patients on eltr ombopag therapy, use of Dimension [place] TBIL is not recommended. Chloride [Moles/Vol] 106 mmol/L 98-107 [facility] Work Phone: Eosinophils/100 WBC (Bld) 2.5 % 0-[address] [facility] Work Phone: Glucose [Mass/Vol] 116 mg/dL 74-106 [facility] Work Phone: Comment on above: Fasting Glucose resu lt from 100 to 125 mg/dL suggests IMPAIRED HOMEOSTASIS per A.D.A. criteria. Neutrophils (Bld) [#/Vol] 2.5 10*3/uL 2.0-7.[address] [facility] Work Phone: Neutrophils/100 WBC (Bld) 44.3 % 47-[address] [facility] Work Phone: Potassium [Moles/Vol] 3.2 mmol/L 3.5-5.1 [facility] Work Phone: Protein [Mass/Vol] 7.9 g/dL 6.4-8.2 [facility] Work Phone: Sodium [Moles/Vol] 141 mmol/L 136-145 [facility] Work Phone: WBC (Bld) [#/Vol] 5.7 10*3/uL 4.4-11.0 [facility] Work Phone: Blood erythrocytes count (nu mber/volume)on 12-25-2021 RBC (Bld) [#/Vol] 4.42 10*6/uL 4.2-5.4 [facility] Work Phone: [phone] Blood hemoglobin measurement (mass/volume)on 12-25-2021 Hemoglobin (Bld) [Mass/Vol] 13.0 g/dL 12.0-15.[address] [facility] Work Phone: [phone] Blood lymphocytes/100 leukoc yteson 12-25-2021 Lymphocytes/100 WBC (Bld) 46.5 % 19-[address] [facility] Work Phone: [phone] Blood monocytes/100 leukocyt eson 12-25-2021 Monocytes/100 WBC (Bld) 5.8 % 0-10 [facility] Work Phone: [phone] Blood platelet mean volumeon 12-25-2021 Platelet mean volume (Bld) [Entitic vol] 9.8 fL 6.2-12.[address] [facility] Work Phone: [phone] Determination of erythrocyte mean corpuscular volume (MCV)on 12-25-2021 MCV (RBC) [Entitic vol] 90.5 fL 81-99 [facility] Work Phone: Hematocrit Auto (Bld) [Volum e fraction]on 12-25-2021 Hematocrit (Bld) [Volume fraction] 40.0 % 37-[address] [facility] Work Phone: [phone] Laboratory - Chemistry and C hemistry - challengeon 12-25-2021 ALP [Catalytic activity/Vol] 134 U/L 45-[address] [facility] Work Phone: [phone] ALT [Catalytic activity/Vol] 29 U/L 13-[address] [facility] Work Phone: [phone] CO2 [Moles/Vol] 26.0 mmol/L 21.0-32.[address] [facility] Work Phone: [phone] Free T4 [Mass/Vol] 1.05 ng/dL 0.76-1.46 [facility] Work Phone: [phone] Globulin (S) [Mass/Vol] 3.9 g/dL 2.2-4.2 [facility] Work Phone: [phone] Urea nitrogen/Creatinine [Mass ratio] 17.9 mg/mg 10-[address] [facility] Work Phone: [phone] Laboratory - Hematology and Cell countson 12-25-2021 Erythrocyte distribution width (RBC) [Entitic vol] 46.4 fL 35.1-43.9 [facility] Work Phone: [phone] Erythrocyte distribution width (RBC) [Ratio] 14.1 % 11.6-14.[address] [facility] Work Phone: [phone] Immature granulocytes/100 WBC (Bld) 0.200 % 0.0-0.[address] [facility] Work Phone: [phone] Comment on above: IG% - Immature Granu locytes (promyelocytes, myelocytes and metamyelocytes) > 1% indicates that a LEFT SHIFT is Present. MCH (RBC) [Entitic mass] 29.4 pg 27.0-32.[address] [facility] Work Phone: [phone] Nucleated RBC/100 WBC (Bld) [Ratio] 0 % 0-[address] [facility] Work Phone: [phone] MCHC Auto (RBC) [Mass/Vol]on 12-25-2021 MCHC (RBC) [Mass/Vol] 32.5 g/dL 32-36 [facility] Work Phone: [phone] Panel Informationon 12-25 Estimated GFR (MDRD) Amer 66 mL/min >[address] [facility] Work Phone: [phone] Comment on above: GFR Calc Estimated GFR (MDRD) Non-Af Amer 55 mL/min >[address] [facility] Work Phone: [phone] Comment on above: Non- GFR Calc Free Triiodothyronine (T3) pg/dL 3.2 pg/mL 2.18-3.[address] [facility] Work Phone: [phone] Thyroid Stimulating Hormone (TSH) 1.62 uIU/mL 0.358-3.[address] [facility] Work Phone: Vitamin D 25-Hydroxy 95.3 ng/mL [facility] Work Phone: Comment on above: Vitamin D 25(OH) Sta tus Range Deficiency <20 ng/mL (50nmol/L) Insufficiency 20 - 30 ng/mL (50 - 75 nmol/L) Sufficiency 30 - 100 ng/mL (75 - 250 nmol/L) Toxicity >100 ng/mL (>250 nmol/L) Platelets bldon 12-25-2021 Platelets (Bld) [#/Vol] 374 10*3/uL 150-[address] [facility] Work Phone: Serum or plasma albumin sonali urement (mass/volume)on 12-25-2021 Albumin [Mass/Vol] 4.0 g/dL 3.2-5.0 [facility] Work Phone: Serum or plasma albumin/glob ulin mass ratioon 12-25-2021 Albumin/Globulin [Mass ratio] 1.0 {ratio} 0.9-2.[address] [facility] Work Phone: Serum or plasma calcium sonali urement (mass/volume)on 12-25-2021 Calcium [Mass/Vol] 9.2 mg/dL 8.5-10.1 [facility] Work Phone: Serum or plasma creatinine m easurement (mass/volume)on 12-25-2021 Creatinine [Mass/Vol] 1.06 mg/dL 0.55-1.02 [facility] Work Phone: Comment on above: The validity of the calculated GFR & GFRAA in patients over 70 years has not been determined. Clinical correlation is essential. Serum or plasma urea nitroge n measurement (mass/volume)on 12-25-2021 Urea nitrogen [Mass/Vol] 19 mg/dL 7-[address] [facility] Work Phone: Thin prep Papanicolaou smear with manual screeningon 12-25-2021 Thin prep Papanicolaou smear with manual screening 21 U/L 15-[address] [facility] Work Phone: Thin prep Papanicolaou smear with manual screening 9 5-[address] [facility] Work Phone: Whole blood hemoglobin A1c/t otal hemoglobin ratio (mass fraction)on 12-25-2021 HbA1c (Bld) [Mass fraction] 6.1 % 3.8-5.[address] [facility] Work Phone: Comment on above: Normal < 5.7 % Predi abetic 5.7 - 6.4 % Diabetic >or= 6.5 % Please note range changes. Absolute lymphocyte counton 10-23-2021 Lymphocytes Auto (Unsp spec) [#/Vol] 3.02 10*3/uL 0.83-4.[address] [facility] Work Phone: Basophil percentageon 2021 Basophils/100 WBC (Bld) 0.5 % 0-1 [facility] Work Phone: Bilirubin [Mass/Vol] 0.40 mg/dL 0.20-1.00 [facility] Work Phone: Comment on above: For patients on eltr ombopag therapy, use of Dimension [place] TBIL is not recommended. Chloride [Moles/Vol] 107 mmol/L 98-107 [facility] Work Phone: Eosinophils/100 WBC (Bld) 3.3 % 0-[address] [facility] Work Phone: Glucose [Mass/Vol] 117 mg/dL 74-106 [facility] Work Phone: Comment on above: Fasting Glucose resu lt from 100 to 125 mg/dL suggests IMPAIRED HOMEOSTASIS per A.D.A. criteria. Neutrophils (Bld) [#/Vol] 2.4 10*3/uL 2.0-7.[address] [facility] Work Phone: Neutrophils/100 WBC (Bld) 39.6 % 47-[address] [facility] Work Phone: Potassium [Moles/Vol] 4.0 mmol/L 3.5-5.1 [facility] Work Phone: Protein [Mass/Vol] 7.3 g/dL 6.4-8.2 [facility] Work Phone: Sodium [Moles/Vol] 140 mmol/L 136-145 [facility] Work Phone: [phone] WBC (Bld) [#/Vol] 6.1 10*3/uL 4.4-11.0 [facility] Work Phone: Blood erythrocytes count (nu mber/volume)on 10-23-2021 RBC (Bld) [#/Vol] 3.79 10*6/uL 4.2-5.4 [facility] Work Phone: Blood hemoglobin measurement (mass/volume)on 10-23-2021 Hemoglobin (Bld) [Mass/Vol] 11.2 g/dL 12.0-15.[address] [facility] Work Phone: [phone] Blood lymphocytes/100 leukoc yteson 10-23-2021 Lymphocytes/100 WBC (Bld) 49.8 % 19-[address] [facility] Work Phone: [phone] Blood monocytes/100 leukocyt eson 10-23-2021 Monocytes/100 WBC (Bld) 6.6 % 0-10 [facility] Work Phone: [phone] Blood platelet mean volumeon 10-23-2021 Platelet mean volume (Bld) [Entitic vol] 9.5 fL 6.2-12.[address] [facility] Work Phone: Determination of erythrocyte mean corpuscular volume (MCV)on 10-23-2021 MCV (RBC) [Entitic vol] 92.6 fL 81-99 [facility] Work Phone: Hematocrit Auto (Bld) [Volum e fraction]on 10-23-2021 Hematocrit (Bld) [Volume fraction] 35.1 % 37-[address] [facility] Work Phone: Laboratory - Chemistry and C hemistry - challengeon 10-23-2021 ALP [Catalytic activity/Vol] 136 U/L 45-[address] [facility] Work Phone: ALT [Catalytic activity/Vol] 26 U/L 13-[address] [facility] Work Phone: CO2 [Moles/Vol] 30.0 mmol/L 21.0-32.[address] [facility] Work Phone: [phone] Globulin (S) [Mass/Vol] 3.6 g/dL 2.2-4.2 [facility] Work Phone: [phone] Urea nitrogen/Creatinine [Mass ratio] 26.6 mg/mg 10-[address] [facility] Work Phone: Laboratory - Hematology and Cell countson 10-23-2021 Erythrocyte distribution width (RBC) [Entitic vol] 48.2 fL 35.1-43.9 [facility] Work Phone: [phone] Erythrocyte distribution width (RBC) [Ratio] 14.3 % 11.6-14.[address] [facility] Work Phone: Immature granulocytes/100 WBC (Bld) 0.200 % 0.0-0.[address] [facility] Work Phone: [phone] Comment on above: IG% - Immature Granu locytes (promyelocytes, myelocytes and metamyelocytes) > 1% indicates that a LEFT SHIFT is Present. MCH (RBC) [Entitic mass] 29.6 pg 27.0-32.[address] [facility] Work Phone: Nucleated RBC/100 WBC (Bld) [Ratio] 0 % 0-[address] [facility] Work Phone: MCHC Auto (RBC) [Mass/Vol]on 10-23-2021 MCHC (RBC) [Mass/Vol] 31.9 g/dL 32-36 [facility] Work Phone: No Panel Informationon 10-23 Estimated GFR (MDRD) Amer 84 mL/min >[address] [facility] Work Phone: Comment on above: GFR Calc Estimated GFR (MDRD) Non-Af Amer 69 mL/min >[address] [facility] Work Phone: [phone] Comment on above: Non- GFR Calc Platelets bldon 10-23-2021 Platelets (Bld) [#/Vol] 357 10*3/uL 150-[address] [facility] Work Phone: [phone] Serum or plasma albumin sonali urement (mass/volume)on 10-23-2021 Albumin [Mass/Vol] 3.7 g/dL 3.2-5.0 [facility] Work Phone: [phone] Serum or plasma albumin/glob ulin mass ratioon 10-23-2021 Albumin/Globulin [Mass ratio] 1.0 {ratio} 0.9-2.[address] [facility] Work Phone: [phone] Serum or plasma calcium sonali urement (mass/volume)on 10-23-2021 Calcium [Mass/Vol] 8.8 mg/dL 8.5-10.1 [facility] Work Phone: [phone] Serum or plasma creatinine m easurement (mass/volume)on 10-23-2021 Creatinine [Mass/Vol] 0.86 mg/dL 0.55-1.02 [facility] Work Phone: [phone] Comment on above: The validity of the calculated GFR & GFRAA in patients over 70 years has not been determined. Clinical correlation is essential. Serum or plasma urea nitroge n measurement (mass/volume)on 10-23-2021 Urea nitrogen [Mass/Vol] 23 mg/dL 7-[address] [facility] Work Phone: [phone] Thin prep Papanicolaou smear with manual screeningon 10-23-2021 Thin prep Papanicolaou smear with manual screening 18 U/L 15-[address] [facility] Work Phone: [phone] Thin prep Papanicolaou smear with manual screening 3 5-[address] [facility] Work Phone: [phone] Absolute lymphocyte counton 09-11-2021 Lymphocytes Auto (Unsp spec) [#/Vol] 3.13 10*3/uL 0.83-4.[address] [facility] Work Phone: [phone] Albumin Elph [Mass/Vol]on Albumin [Mass/Vol] 3.8 g/dL [facility] Work Phone: [phone] Atypical perinuclear antineu trophil cytoplasmic antibodies measurementon 09-11-2021 Neutrophil cytoplasmic Ab.perinuclear.atypical IF (S) [Titer] <1:20 titer Neg:<1:[address] [facility] Work Phone: Comment on above: The atypical pANCA p attern has been observed in asignificant percentage of patients with ulcerative colitis,primary sclerosing cholangitis and autoimmune hepatitis. Basophil percentageon 2021 Basophils/100 WBC (Bld) 0.7 % 0-1 [facility] Work Phone: Bilirubin [Mass/Vol] 0.50 mg/dL 0.20-1.00 [facility] Work Phone: Comment on above: For patients on eltr ombopag therapy, use of Dimension [place] TBIL is not recommended. Chloride [Moles/Vol] 103 mmol/L 98-107 [facility] Work Phone: Eosinophils/100 WBC (Bld) 2.7 % 0-[address] [facility] Work Phone: Glucose [Mass/Vol] 126 mg/dL 74-106 [facility] Work Phone: Comment on above: Fasting Glucose resu lt greater than or equal to 126 mg/dL suggests DIABETES MELLITUS per A.D.A. criteria. Neutrophils (Bld) [#/Vol] 3.3 10*3/uL 2.0-7.[address] [facility] Work Phone: Neutrophils/100 WBC (Bld) 45.4 % 47-[address] [facility] Work Phone: Potassium [Moles/Vol] 3.5 mmol/L 3.5-5.1 [facility] Work Phone: Protein [Mass/Vol] 8.0 g/dL 6.4-8.2 [facility] Work Phone: Sodium [Moles/Vol] 137 mmol/L 136-145 [facility] Work Phone: WBC (Bld) [#/Vol] 7.3 10*3/uL 4.4-11.0 [facility] Work Phone: Blood erythrocytes count (nu mber/volume)on 09-11-2021 RBC (Bld) [#/Vol] 4.23 10*6/uL 4.2-5.4 [facility] Work Phone: Blood hemoglobin measurement (mass/volume)on 09-11-2021 Hemoglobin (Bld) [Mass/Vol] 12.3 g/dL 12.0-15.[address] [facility] Work Phone: Blood lymphocytes/100 leukoc yteson 09-11-2021 Lymphocytes/100 WBC (Bld) 43.0 % 19-[address] [facility] Work Phone: [phone] Blood monocytes/100 leukocyt eson 09-11-2021 Monocytes/100 WBC (Bld) 7.8 % 0-10 [facility] Work Phone: Blood platelet mean volumeon 09-11-2021 Platelet mean volume (Bld) [Entitic vol] 10.0 fL 6.2-12.[address] [facility] Work Phone: Determination of erythrocyte mean corpuscular volume (MCV)on 09-11-2021 MCV (RBC) [Entitic vol] 90.3 fL 81-99 [facility] Work Phone: Erythrocyte sedimentation ra cheryl 09-11-2021 ESR (Bld) [Velocity] 38 mm/h 0-30 [facility] Work [facility]: Hematocrit Auto (Bld) [Volum e fraction]on 09-11-2021 Hematocrit (Bld) [Volume fraction] 38.2 % 37-[address] [facility] Work Phone: Interpretation of serum or p lasma protein pattern by immunofixation (narrative resulton 09-11-2021 Protein Fractions Immunofixation [place] [Interp] 0.3 g/dL Not Observed [facility] Work Phone: Laboratory - Chemistry and C hemistry - challengeon 09-11-2021 ALP [Catalytic activity/Vol] 150 U/L 45-[address] [facility] Work Phone: [phone] ALT [Catalytic activity/Vol] 38 U/L 13-[address] [facility] Work Phone: [phone] CO2 [Moles/Vol] 26.0 mmol/L 21.0-32.[address] [facility] Work Phone: [phone] Globulin (S) [Mass/Vol] 4.1 g/dL 2.2-4.2 [facility] Work Phone: [phone] Urea nitrogen/Creatinine [Mass ratio] 32.7 mg/mg 10-[address] [facility] Work Phone: [phone] Laboratory - Hematology and Cell countson 09-11-2021 Erythrocyte distribution width (RBC) [Entitic vol] 47.7 fL 35.1-43.9 [facility] Work Phone: [phone] Erythrocyte distribution width (RBC) [Ratio] 14.5 % 11.6-14.[address] [facility] Work Phone: [phone] Immature granulocytes/100 WBC (Bld) 0.400 % 0.0-0.[address] [facility] Work Phone: [phone] Comment on above: IG% - Immature Granu locytes (promyelocytes, myelocytes and metamyelocytes) > 1% indicates that a LEFT SHIFT is Present. MCH (RBC) [Entitic mass] 29.1 pg 27.0-32.[address] [facility] Work Phone: [phone] Nucleated RBC/100 WBC (Bld) [Ratio] 0 % 0-[address] [facility] Work Phone: [phone] MCHC Auto (RBC) [Mass/Vol]on 09-11-2021 MCHC (RBC) [Mass/Vol] 32.2 g/dL 32-36 [facility] Work Phone: [phone] Panel Informationon 09-11 Estimated GFR (MDRD) Amer 85 mL/min >[address] [facility] Work Phone: [phone] Comment on above: GFR Calc Estimated GFR (MDRD) Non-Af Amer 70 mL/min >[address] [facility] Work Phone: Comment on above: Non- GFR Calc Addendum Document Comment [facility] Work Phone: Comment on above: Protein electrophore sis scan will follow via computer,mail, or women's studies professor delivery. Ceruloplasmin 32.7 mg/dL [facility] Work Phone: [phone] Endomysial IgA Antibody Negative Negative [facility] Work Phone: [phone] Free Lambda Light Chains, Quant 22.8 mg/L [facility] Work Phone: [phone] Immunoglobulin E 321 IU/mL [facility] Work Phone: [phone] Platelets bldon 09-11-2021 Platelets (Bld) [#/Vol] 362 10*3/uL 150-[address] [facility] Work Phone: [phone] Serum himuv-[id number] measu rement by electrophoresison 09-11-2021 Alpha 1 globulin Elph [Mass/Vol] 0.3 g/dL [facility] Work Phone: [phone] Alpha 1 globulin Elph [Mass/Vol] 0.9 g/dL [facility] Work Phone: [phone] Serum classic neutrophil cyt oplasmic antibody assay (units/volume)on 09-11-2021 Neutrophil cytoplasmic Ab.classic Qn (S) <1:20 titer Neg:<1:[address] [facility] Work Phone: [phone] Serum immunoglobulin kappa l ight chains/immunoglobulin lambda light chains mass ratioon 09-11-2021 Immunoglobulin light chains.kappa/Immunoglobul in light chains.lambda (S) [Mass ratio] 0.[address] [facility] Work Phone: [phone] Serum mitochondria antibody detectionon 09-11-2021 Mitochondria Ab Ql (S) <20.0 Units [facility] Work Phone: [phone] Comment on above: Negative 0.0 - 20.0 Equivocal 20.1 - 24.9 Positive >24.9Mitochondrial (M2) Antibodies are found in 90-96% ofpatients with primary biliary cirrhosis.Performed at: [address] [id number] Director: Brian Bautista PhD, Phone: [phone] Serum or plasma IgA measurem ent (mass/volume)on 09-11-2021 IgA [Mass/Vol] 447 mg/dL [facility] Work Phone: [phone] Serum or plasma IgG measurem ent (mass/volume)on 09-11-2021 IgG [Mass/Vol] 1000 mg/dL [facility] Work Phone: [phone] Serum or plasma IgM measurem ent (mass/volume)on 09-11-2021 IgM [Mass/Vol] 70 mg/dL [facility] Work Phone: [phone] Comment on above: Performed at: [facility] [id number] [id number] Director: Brian Bautista PhD, Phone: [phone] at: - [facility] [address] [id number] Director: Rosalva Ross MD, Phone: [phone] Serum or plasma actin IgG an tibody assay (units/volume)on 09-11-2021 Actin IgG Qn [address] [facility] Work Phone: Comment on above: Negative 0 - 19 Weak positive 20 - 30 Moderate to strong positive >30 Actin Antibodies are found in 52-85% of patients with autoimmune hepatitis or chronic active hepatitis and in 22% of patients with primary biliary cirrhosis. Serum or plasma albumin sonali urement (mass/volume)on 09-11-2021 Albumin [Mass/Vol] 3.9 g/dL 3.2-5.0 [facility] Work Phone: [phone] Serum or plasma albumin/glob ulin mass ratioon 09-11-2021 Albumin/Globulin [Mass ratio] 1.0 {ratio} 0.9-2.[address] [facility] Work Phone: [phone] Serum or plasma beta globuli n measurement by electrophoresis (mass/volume)on 09-11-2021 Beta globulin Elph [Mass/Vol] 1.5 g/dL [facility] Work Phone: [phone] Serum or plasma calcium sonali urement (mass/volume)on 09-11-2021 Calcium [Mass/Vol] 9.2 mg/dL 8.5-10.1 [facility] Work Phone: Serum or plasma creatinine m easurement (mass/volume)on 09-11-2021 Creatinine [Mass/Vol] 0.86 mg/dL 0.55-1.02 [facility] Work Phone: Comment on above: The validity of the calculated GFR & GFRAA in patients over 70 years has not been determined. Clinical correlation is essential. Serum or plasma gamma globul in measurement by electrophoresis (mass/volume)on 09-11-2021 Gamma globulin Elph [Mass/Vol] 1.0 g/dL [facility] Work Phone: Serum or plasma immunoelectr ophoresis interpretation (nominal result)on 09-11-2021 Interpretation IEP [Interp] Comment [facility] Work Phone: Comment on above: Immunofixation shows IgG monoclonal protein with lambdalight chain specificity.KAPPA APPEARS ASYMMETRICAL Serum or plasma immunoglobul in kappa light chains measurement (mass/volume)on 09-11-2021 Immunoglobulin light chains.kappa [Mass/Vol] 16.3 mg/L [facility] Work Phone: Serum or plasma urea nitroge n measurement (mass/volume)on 09-11-2021 Urea nitrogen [Mass/Vol] 28 mg/dL 7-[address] [facility] Work Phone: Serum or plasma uric acid me asurement (mass/volume)on 09-11-2021 Urate [Mass/Vol] 5.1 mg/dL 2.6-6.[address] [facility] Work Phone: Comment on above: The drugs N-Acetylcy steine and Metamizole may falsely depress this assay. Serum perinuclear neutrophil cytoplasmic antibody titer by immunofluorescenceon 09-11-2021 Neutrophil cytoplasmic Ab.perinuclear IF (S) [Titer] <1:20 titer Neg:<1:[address] [facility] Work Phone: Comment on above: The presence of posi tive fluorescence exhibiting P-ANCA orC-ANCA patterns alone is not specific for the diagnosis ofWegener's Granulomatosis (WG) or microscopic polyangiitis.Decisions about treatment should not be based solely onANCA IFA results. The [employer] Consensusrecommends follow up testing of positive sera with both ID-3 and MPO-ANCA enzyme immunoassays. As many as 5% serumsamples are positive only by EIA. Ref. AM J Clin [id number];111:507-513. Serum tissue transglutaminas e IgA antibody assay (units/volume)on 09-11-2021 tTG IgA Qn (S) <2 U/mL [facility] Work Phone: Comment on above: Negative 0 - 3 Weak Positive 4 - 10 Positive >10 Tissue Transglutaminase (tTG) has been identified as the endomysial antigen. Studies have demonstr- ated that endomysial IgA antibodies have over 99% specificity for gluten sensitive enteropathy. Thin prep Papanicolaou smear with manual screeningon 09-11-2021 Thin prep Papanicolaou smear with manual screening 292 U/L 84-[address] [facility] Work Phone: [phone] Thin prep Papanicolaou smear with manual screening 26 U/L 15-[address] [facility] Work Phone: [phone] Thin prep Papanicolaou smear with manual screening 8 5-[address] [facility] Work Phone: [phone] Thin prep Papanicolaou smear with manual screening 1.[address] [facility] Work Phone: [phone] Thin prep Papanicolaou smear with manual screening 120 ug/dL [facility] Work Phone: [phone] Comment on above: Detection Limit = 5 Total protein bloodon 2021 Protein [Mass/Vol] 7.5 g/dL [facility] Work Phone: [phone] Culture, urine Bacteria identified Cx Nom (U) Escherichia coli [facility] Work Phone: [phone] Vital Signs Date Time Vital Sign Value Performing Clinician Facility 02-11-2025 07:27-0400 Body temperature 98.8 [degF] Dr. Addison Linn MD Work Phone: [facility] 02-11-2025 07:27-0400 Diastolic blood pressure 101 mm[Hg] Dr. Addison Linn MD Work Phone: [phone] [place] [address] 02-11-2025 07:27-0400 Heart rate 92 /min Dr. Addison Linn MD Work Phone: [phone])909-144433 [place] [address] 02-11-2025 07:27-0400 Respiratory rate 18 /min Dr. Addison Linn MD Work Phone: [phone] [place] [address] 02-11-2025 07:27-0400 SaO2% (BldA) [Mass fraction] 100 % Dr. Addison Linn MD Work Phone: [phone] [place] [address] 02-11-2025 07:27-0400 Systolic blood pressure 137 mm[Hg] Dr. Addison Linn MD Work Phone: [phone])132-674933 [place] [address] 02-10-2025 14:46-0400 Body height 165.[address] Addison Linn MD Work Phone: [phone])282-607633 [place] [address] 01-21-2025 14:19-0400 Body height 165.[address] Addison Linn MD Work Phone: [phone] [place] [address] 01-21-2025 14:19-0400 Body mass index (BMI) [Ratio] 36.8 kg/m2 Dr. Addison Linn MD Work Phone: [phone])840-617533 [place] [address] 01-21-2025 14:19-0400 Body weight 100.[address] Addison Linn MD Work Phone: [phone] [place] [address] 01-18-2025 08:13-0400 Body mass index (BMI) [Ratio] 36.8 kg/m2 Dr. Addison Linn MD Work Phone: [phone] [place] [address] 01-18-2025 08:13-0400 Body temperature 97.3 [degF] Dr. Addison Linn MD Work Phone: [phone])327-566033 [place] [address] 01-18-2025 08:13-0400 Body weight 100.[address] Addison Linn MD Work Phone: [phone] [place] [address] 01-18-2025 08:13-0400 Diastolic blood pressure 86 mm[Hg] Dr. Addison Linn MD Work Phone: [facility] 01-18-2025 08:13-0400 Heart rate 90 /min Dr. Addison Linn MD Work Phone: [facility] 01-18-2025 08:13-0400 Respiratory rate 20 /min Dr. Addison Linn MD Work Phone: [facility] 01-18-2025 08:13-0400 SaO2% (BldA) [Mass fraction] 98 % Dr. Addison Linn MD Work Phone: [facility] 01-18-2025 08:13-0400 Systolic blood pressure 129 mm[Hg] Dr. Addison Linn MD Work Phone: [facility] 01-06-2025 15:19-0400 Body height 165.[address] Gamaliel Whitehead MD Work Phone: [facility] 01-06-2025 15:15-0400 Body mass index (BMI) [Ratio] 38.1 kg/m2 Dr. Gamaliel Whitehead MD Work Phone: [facility] 01-06-2025 15:15-0400 Body temperature 98.1 [degF] Dr. Gamaliel Whitehead MD Work Phone: [facility] 01-06-2025 15:15-0400 Body weight 103.[address] Gamaliel Whitehead MD Work Phone: [facility] 01-06-2025 15:15-0400 Diastolic blood pressure 74 mm[Hg] Dr. Gamaliel Whitehead MD Work Phone: [facility] 01-06-2025 15:15-0400 Heart rate 97 /min Dr. Gamaliel Whitehead MD Work Phone: [facility] 01-06-2025 15:15-0400 Respiratory rate 18 /min Dr. Gamaliel Whitehead MD Work Phone: [facility] 01-06-2025 15:15-0400 SaO2% (BldA) [Mass fraction] 97 % Dr. Gamaliel Whitehead MD Work Phone: [facility] 01-06-2025 15:15-0400 Systolic blood pressure 138 mm[Hg] Dr. Gamaliel Whitehead MD Work Phone: [phone] [place] [address] 12-22-2024 15:40-0400 Body height 165.[address] Gamaliel Whitehead MD Work Phone: [phone])334-433133 [place] [address] 12-22-2024 15:40-0400 Body mass index (BMI) [Ratio] 37.1 kg/m2 Dr. Gamaliel Whitehead MD Work Phone: 1(543)087-177933 [place] [address] 12-22-2024 15:40-0400 Body weight 101.[address] Gamaliel Whitehead MD Work Phone: 0(662)901-118133 [place] [address] 12-10-2024 05:51-0400 Diastolic blood pressure 90 mm[Hg] Dr. Gamaliel Whitehead MD Work Phone: 4(185)229-185733 [place] [address] 12-10-2024 05:51-0400 Heart rate 91 /min Dr. Gamaliel Whitehead MD Work Phone: 1(027)521-513833 [place] [address] 12-10-2024 05:51-0400 Respiratory rate 18 /min Dr. Gamaliel Whitehead MD Work Phone: [phone])126-287933 [place] [address] 12-10-2024 05:51-0400 SaO2% (BldA) [Mass fraction] 98 % Dr. Gamaliel Whitehead MD Work Phone: [phone])220-960033 [place] [address] 12-10-2024 05:51-0400 Systolic blood pressure 147 mm[Hg] Dr. Gamaliel Whitehead MD Work Phone: 1([phone])804-841833 [place] [address] 12-10-2024 05:50-0400 Body temperature 97.9 [degF] Dr. aGmaliel Whitehead MD Work Phone: 7(279)109-353233 [place] [address] 12-09-2024 18:04-0400 Body height 165.[address] Gamaliel Whitehead MD Work Phone: [phone])258-618633 [place] [address] 12-09-2024 18:04-0400 Body mass index (BMI) [Ratio] 39.6 kg/m2 Dr. Gamaliel Whitehead MD Work Phone: [facility] 12-09-2024 18:04-0400 Body weight 108.[address] Gamaliel Whitehead MD Work Phone: [facility] 10-21-2024 13:27-0400 Body height 165.[address] Lisa Barraza DO Work Phone: [phone] [place] [address] 10-21-2024 13:27-0400 Body mass index (BMI) [Ratio] 38.6 kg/m2 Dr. Lisa Barraza DO Work Phone: 5(666)326-938228 [place] [address] 10-21-2024 13:27-0400 Body weight 105.[address] Lisa Barraza DO Work Phone: 0(240)673-652718 [address] 08-12-2024 12:13-0500 Body temperature 98.1 [degF] Dr. Lisa Barraza DO Work Phone: 8(320)159-236628 [place] [address] 08-12-2024 12:13-0500 Diastolic blood pressure 65 mm[Hg] Dr. Lisa Barraza DO Work Phone: 5(764)357-460218 [address] 08-12-2024 12:13-0500 Heart rate 99 /min Dr. Lisa Barraza DO Work Phone: 4(204)766-872128 [place] [address] 08-12-2024 12:13-0500 Respiratory rate 16 /min Dr. Lisa Barraza DO Work Phone: [phone] [place] [address] 08-12-2024 12:13-0500 SaO2% (BldA) [Mass fraction] 95 % Dr. Lisa Barraza DO Work Phone: 6(991)709-638928 [place] [address] 08-12-2024 12:13-0500 Systolic blood pressure 116 mm[Hg] Dr. Lisa Barraza DO Work Phone: 4(799)409-842828 [place] [address] 08-12-2024 05:33-0500 Body mass index (BMI) [Ratio] 39 kg/m2 Dr. Lisa Barraza DO Work Phone: 3(818)568-837028 [place] [address] 08-12-2024 05:33-0500 Body weight 106.[address] Lisa Barraza DO Work Phone: [facility] 08-09-2024 08:38-0500 Inhaled oxygen flow rate 2 L/min Dr. Lisa Barraza DO Work Phone: [facility] 03-02-2024 15:08-0400 Body height 166.4 cm Roger Bustamante MD Work Phone: [phone] [address] Comment on above: per chart 03-02-2024 15:08-0400 Body mass index (BMI) [Ratio] 38.35 kg/m2 Roger Bustamante MD Work Phone: [phone])562-410959 [address] 03-02-2024 15:08-0400 Body temperature 97.9 [degF] Roger Bustamante MD Work Phone: 0(957)[phone] [address] 03-02-2024 15:08-0400 Body weight 106.14 kg Roger Bustamante MD Work Phone: 5(663)[phone] [address] 03-02-2024 15:08-0400 Diastolic blood pressure 83 mm[Hg] Roger Bustamante MD Work Phone: 3(033)[phone] [address] 03-02-2024 15:08-0400 Heart rate 89 /min Roger Bustamante MD Work Phone: 7(195)[phone] [address] 03-02-2024 15:08-0400 Systolic blood pressure 167 mm[Hg] Roger Bustamante MD Work Phone: 6(300)[phone] [address] 02-03-2024 13:02-0400 Body height 166.4 cm Roger Bustamante MD Work Phone: 5(845)[phone] [address] 02-03-2024 13:02-0400 Body mass index (BMI) [Ratio] 39 kg/m2 Roger Bustamante MD Work Phone: 4(178)[phone] [address] 02-03-2024 13:02-0400 Body temperature 98.2 [degF] Roger Bustamante MD Work Phone: [facility] 02-03-2024 13:02-0400 Body weight 107.96 kg Roger Bustamante MD Work Phone: [facility] 02-03-2024 13:02-0400 Diastolic blood pressure 62 mm[Hg] Roger Bustamante MD Work Phone: [facility] 02-03-2024 13:02-0400 Heart rate 94 /min Roger Bustamante MD Work Phone: [facility] 02-03-2024 13:02-0400 Systolic blood pressure 136 mm[Hg] Roger Bustamante MD Work Phone: [facility] 01-21-2024 10:51-0400 Body mass index (BMI) [Ratio] 37.76 kg/m2 Angélica Ingram MD Work Phone: [facility] 01-21-2024 10:51-0400 Body weight 104.51 kg Angélica Ingram MD Work Phone: [facility] 01-21-2024 10:51-0400 Diastolic blood pressure 62 mm[Hg] Angélica Ingram MD Work Phone: [facility] 01-21-2024 10:51-0400 Heart rate 100 /min Angélica Ingram MD Work Phone: [facility] 01-21-2024 10:51-0400 SaO2% (BldA) [Mass fraction] 97 % Angélica Ingram MD Work Phone: [facility] 01-21-2024 10:51-0400 Systolic blood pressure 127 mm[Hg] Angélica Ingram MD Work Phone: [facility] 11-27-2023 15:00-0400 Body temperature 98.6 [degF] Dr. Yoanna Hull Work Phone: [facility] 11-27-2023 15:00-0400 Diastolic blood pressure 81 mm[Hg] Dr. Yoanna Hull Work Phone: [facility] 11-27-2023 15:00-0400 Heart rate 78 /min Dr. Yoanna Hull Work Phone: [facility] 11-27-2023 15:00-0400 Respiratory rate 16 /min Dr. Yoanna Hull Work Phone: [facility] 11-27-2023 15:00-0400 SaO2% (BldA) [Mass fraction] 98 % Dr. Yoanna Hull Work Phone: [facility] 11-27-2023 15:00-0400 Systolic blood pressure 132 mm[Hg] Dr. Yoanna Hull Work Phone: [facility] 11-27-2023 11:19-0400 Body height 165.[address] Yoanna Hull Work Phone: [facility] 11-25-2023 16:08-0400 Body mass index (BMI) [Ratio] 37 kg/m2 Dr. Yoanna Hull Work Phone: [facility] 11-25-2023 16:08-0400 Body temperature 98.4 [degF] Dr. Yoanna Hull Work Phone: [facility] 11-25-2023 16:08-0400 Body weight 101.[address] Yoanna Hull Work Phone: [facility] 11-25-2023 16:08-0400 Heart rate 94 /min Dr. Yoanna Hull Work Phone: [facility] 11-25-2023 16:08-0400 Respiratory rate 16 /min Dr. Yoanna Hull Work Phone: [facility] 11-25-2023 16:08-0400 SaO2% (BldA) [Mass fraction] 98 % Dr. Yoanna Hull Work Phone: [facility] 11-20-2023 14:37-0400 Body mass index (BMI) [Ratio] 37.4 kg/m2 Dr. Yoanna Hull Work Phone: [facility] 11-20-2023 14:37-0400 Body temperature 98.2 [degF] Dr. Yoanna Hull Work Phone: [facility] 11-20-2023 14:37-0400 Body weight 102.[address] Yoanna Hull Work Phone: [facility] 11-20-2023 14:37-0400 Diastolic blood pressure 68 mm[Hg] Dr. Yoanna Hull Work Phone: [facility] 11-20-2023 14:37-0400 Heart rate 93 /min Dr. Yoanna Hull Work Phone: [facility] 11-20-2023 14:37-0400 Respiratory rate 18 /min Dr. Yoanna Hull Work Phone: [facility] 11-20-2023 14:37-0400 SaO2% (BldA) [Mass fraction] 96 % Dr. Yoanna Hull Work Phone: [facility] 11-20-2023 14:37-0400 Systolic blood pressure 116 mm[Hg] Dr. Yoanna Hull Work Phone: [facility] 09-24-2023 09:41-0500 Body height 166.4 cm Angélica Ingram MD Work Phone: [facility] 09-24-2023 09:41-0500 Body mass index (BMI) [Ratio] 36.97 kg/m2 Angélica Ingram MD Work Phone: [facility] 09-24-2023 09:41-0500 Body weight 102.33 kg Angélica Ingram MD Work Phone: [facility] 09-24-2023 09:41-0500 Diastolic blood pressure 60 mm[Hg] Angélica Ingram MD Work Phone: [facility] 09-24-2023 09:41-0500 Heart rate 95 /min Angélica Ingram MD Work Phone: [facility] 09-24-2023 09:41-0500 SaO2% (BldA) [Mass fraction] 95 % Angélica Ingram MD Work Phone: [facility] 09-24-2023 09:41-0500 Systolic blood pressure 120 mm[Hg] Angélica Ingram MD Work Phone: [facility] 09-10-2023 14:13-0500 Body height 165.[address] Yoanna Hull Work Phone: [facility] 09-10-2023 14:13-0500 Body mass index (BMI) [Ratio] 37.4 kg/m2 Dr. Yoanna Hull Work Phone: [facility] 09-10-2023 14:13-0500 Body temperature 97.2 [degF] Dr. Yoanna Hull Work Phone: [facility] 09-10-2023 14:13-0500 Body weight 102.[address] Yoanna Hull Work Phone: [facility] 09-10-2023 14:13-0500 Diastolic blood pressure 72 mm[Hg] Dr. Yoanna Hull Work Phone: [facility] 09-10-2023 14:13-0500 Heart rate 103 /min Dr. Yoanna Hull Work Phone: [facility] 09-10-2023 14:13-0500 Respiratory rate 14 /min Dr. Yoanna Hull Work Phone: [facility] 09-10-2023 14:13-0500 SaO2% (BldA) [Mass fraction] 93 % Dr. Yoanna Hull Work Phone: [facility] 09-10-2023 14:13-0500 Systolic blood pressure 114 mm[Hg] Dr. Yoanna Hull Work Phone: [facility] 07-22-2023 05:46-0500 Body height 165.[address] Yoanna Hull Work Phone: [facility] 07-22-2023 05:46-0500 Body mass index (BMI) [Ratio] 38.5 kg/m2 Dr. Yoanna Hull Work Phone: [facility] 07-22-2023 05:46-0500 Body temperature 97.1 [degF] Dr. Yoanna Hull Work Phone: [facility] 07-22-2023 05:46-0500 Body weight 104.[address] Yoanna Hull Work Phone: [facility] 07-22-2023 05:46-0500 Diastolic blood pressure 80 mm[Hg] Dr. Yoanna Hull Work Phone: [facility] 07-22-2023 05:46-0500 Heart rate 88 /min Dr. Yoanna Hull Work Phone: [facility] 07-22-2023 05:46-0500 Respiratory rate 18 /min Dr. Yoanna Hull Work Phone: [facility] 07-22-2023 05:46-0500 SaO2% (BldA) [Mass fraction] 94 % Dr. Yoanna Hull Work Phone: [facility] 07-22-2023 05:46-0500 Systolic blood pressure 133 mm[Hg] Dr. Yoanna Hull Work Phone: [facility] 06-09-2023 13:41-0400 Body height 165.[address] Yoanna Hull Work Phone: [facility] 06-09-2023 13:41-0400 Body mass index (BMI) [Ratio] 40.4 kg/m2 Dr. Yoanna Hull Work Phone: [facility] 06-09-2023 13:41-0400 Body temperature 97.8 [degF] Dr. Yoanna Hull Work Phone: [facility] 06-09-2023 13:41-0400 Body weight 110.[address] Yoanna Hull Work Phone: [facility] 06-09-2023 13:41-0400 Diastolic blood pressure 68 mm[Hg] Dr. Yoanna Hull Work Phone: [facility] 06-09-2023 13:41-0400 Heart rate 87 /min Dr. Yoanna Hull Work Phone: [facility] 06-09-2023 13:41-0400 SaO2% (BldA) [Mass fraction] 98 % Dr. Yoanna Hull Work Phone: [facility] 06-09-2023 13:41-0400 Systolic blood pressure 137 mm[Hg] Dr. Yoanna Hull Work Phone: [facility] 03-05-2023 13:56-0400 Body height 165.[address] Yoanna Hull Work Phone: [facility] 03-05-2023 13:56-0400 Body mass index (BMI) [Ratio] 39.1 kg/m2 Dr. Yoanna Hull Work Phone: [facility] 03-05-2023 13:56-0400 Body temperature 98.8 [degF] Dr. Yoanna Hull Work Phone: [facility] 03-05-2023 13:56-0400 Body weight 106.[address] Yoanna Hull Work Phone: [facility] 03-05-2023 13:56-0400 Diastolic blood pressure 86 mm[Hg] Dr. Yoanna Hull Work Phone: [facility] 03-05-2023 13:56-0400 Heart rate 88 /min Dr. Yoanna Hull Work Phone: [facility] 03-05-2023 13:56-0400 Respiratory rate 16 /min Dr. Yoanna Hull Work Phone: [facility] 03-05-2023 13:56-0400 SaO2% (BldA) [Mass fraction] 94 % Dr. Yoanna Hull Work Phone: [facility] 03-05-2023 13:56-0400 Systolic blood pressure 128 mm[Hg] Dr. Yoanna Hull Work Phone: [facility] 02-10-2023 15:23-0400 Body mass index (BMI) [Ratio] 39.9 kg/m2 Dr. Yoanna Hull Work Phone: [facility] 02-10-2023 15:23-0400 Body temperature 98.2 [degF] Dr. Yoanna Hull Work Phone: [facility] 02-10-2023 15:23-0400 Body weight 108.[address] Yoanna Hull Work Phone: [facility] 02-10-2023 15:23-0400 Diastolic blood pressure 60 mm[Hg] Dr. Yoanna Hull Work Phone: [facility] 02-10-2023 15:23-0400 Heart rate 92 /min Dr. Yoanna Hull Work Phone: [facility] 02-10-2023 15:23-0400 Respiratory rate 16 /min Dr. Yoanna Hull Work Phone: [facility] 02-10-2023 15:23-0400 SaO2% (BldA) [Mass fraction] 97 % Dr. Yoanna Hull Work Phone: [facility] 02-10-2023 15:23-0400 Systolic blood pressure 108 mm[Hg] Dr. Yoanna Hull Work Phone: [facility] 01-27-2023 08:00-0400 Body mass index (BMI) [Ratio] 39.2 kg/m2 Dr. Yoanna Hull Work Phone: [facility] 01-27-2023 08:00-0400 Body temperature 97.7 [degF] Dr. Yoanna Hull Work Phone: [facility] 01-27-2023 08:00-0400 Body weight 108.[address] Yoanna Hull Work Phone: [facility] 01-27-2023 08:00-0400 Diastolic blood pressure 80 mm[Hg] Dr. Yoanna Hull Work Phone: [facility] 01-27-2023 08:00-0400 Heart rate 90 /min Dr. Yoanna Hull Work Phone: [facility] 01-27-2023 08:00-0400 Respiratory rate 18 /min Dr. Yoanna Hull Work Phone: [facility] 01-27-2023 08:00-0400 SaO2% (BldA) [Mass fraction] 94 % Dr. Yoanna Hull Work Phone: [facility] 01-27-2023 08:00-0400 Systolic blood pressure 134 mm[Hg] Dr. Yoanna Hull Work Phone: [facility] 01-02-2023 09:08-0400 Body height 166.[address] Yoanna Hull Work Phone: [facility] 01-02-2023 09:08-0400 Body weight 105.[address] Yoanna Hull Work Phone: [facility] 01-02-2023 09:08-0400 Heart rate 91 /min Dr. Yoanna Hull Work Phone: [facility] 01-02-2023 09:08-0400 SaO2% (BldA) [Mass fraction] 97 % Dr. Yoanna Hull Work Phone: [facility] 11-21-2022 11:41-0400 Body height 165.[address] Yoanna Hull Work Phone: [facility] 11-21-2022 11:41-0400 Body temperature 96 [degF] Dr. Yoanna Hull Work Phone: [facility] 11-21-2022 11:41-0400 Diastolic blood pressure 74 mm[Hg] Dr. Yoanna Hull Work Phone: [facility] 11-21-2022 11:41-0400 Heart rate 84 /min Dr. Yoanna Hull Work Phone: [facility] 11-21-2022 11:41-0400 Respiratory rate 18 /min Dr. Yoanna Hull Work Phone: [facility] 11-21-2022 11:41-0400 SaO2% (BldA) [Mass fraction] 99 % Dr. Yoanna Hull Work Phone: [facility] 11-21-2022 11:41-0400 Systolic blood pressure 138 mm[Hg] Dr. Yoanna Hull Work Phone: [facility] 11-21-2022 11:33-0400 Body mass index (BMI) [Ratio] 39 kg/m2 Dr. Yoanna Hull Work Phone: [facility] 11-21-2022 11:33-0400 Body temperature 98.2 [degF] Dr. Yoanna Hull Work Phone: [facility] 11-21-2022 11:33-0400 Body weight 106.[address] Yoanna Hull Work Phone: [facility] 11-21-2022 11:33-0400 Diastolic blood pressure 84 mm[Hg] Dr. Yoanna Hull Work Phone: [facility] 11-21-2022 11:33-0400 Heart rate 95 /min Dr. Yoanna Hull Work Phone: [facility] 11-21-2022 11:33-0400 Respiratory rate 17 /min Dr. Yoanna Hull Work Phone: [facility] 11-21-2022 11:33-0400 Systolic blood pressure 143 mm[Hg] Dr. Yoanna Hull Work Phone: [facility] 08-19-2022 13:24-0500 Body height 165.[address] Yoanna Hull Work Phone: [facility] 08-19-2022 13:24-0500 Body mass index (BMI) [Ratio] 39.4 kg/m2 Dr. Yoanna Hull Work Phone: [facility] 08-19-2022 13:24-0500 Body temperature 96.8 [degF] Dr. Yoanna Hull Work Phone: [facility] 08-19-2022 13:24-0500 Body weight 107.[address] Yoanna Hull Work Phone: [facility] 08-19-2022 13:24-0500 Diastolic blood pressure 78 mm[Hg] Dr. Yoanna Hull Work Phone: [facility] 08-19-2022 13:24-0500 Heart rate 90 /min Dr. Yoanna Hull Work Phone: [facility] 08-19-2022 13:24-0500 Respiratory rate 16 /min Dr. Yoanna Hull Work Phone: [facility] 08-19-2022 13:24-0500 SaO2% (BldA) [Mass fraction] 99 % Dr. Yoanna Hull Work Phone: [facility] 08-19-2022 13:24-0500 Systolic blood pressure 126 mm[Hg] Dr. Yoanna Hull Work Phone: [facility] 07-30-2022 11:31-0500 Body mass index (BMI) [Ratio] 39.4 kg/m2 Dr. Yoanna Hull Work Phone: [facility] 07-30-2022 11:31-0500 Body temperature 97.6 [degF] Dr. Yaonna Hull Work Phone: [facility] 07-30-2022 11:31-0500 Body weight 107.[address] Yoanna Hull Work Phone: [facility] 07-30-2022 11:31-0500 Diastolic blood pressure 85 mm[Hg] Dr. Yoanna Hull Work Phone: [facility] 07-30-2022 11:31-0500 Heart rate 95 /min Dr. Yoanna Hull Work Phone: [facility] 07-30-2022 11:31-0500 Respiratory rate 18 /min Dr. Yoanna Hull Work Phone: [facility] 07-30-2022 11:31-0500 SaO2% (BldA) [Mass fraction] 93 % Dr. Yoanna Hull Work Phone: [facility] 07-30-2022 11:31-0500 Systolic blood pressure 134 mm[Hg] Dr. Yoanna Hull Work Phone: [facility] 05-01-2022 13:07-0400 Body height 165.[address] Yoanna Hull Work Phone: [facility] Work Phone: 05-01-2022 13:07-0400 Body mass index (BMI) [Ratio] 38.8 kg/m2 Dr. Yoanna Hull Work Phone: [facility] Work Phone: 05-01-2022 13:07-0400 Body temperature 97 [degF] Dr. Yoanna Hull Work Phone: [facility] Work Phone: 05-01-2022 13:07-0400 Body weight 105.[address] Yoanna Hull Work Phone: [facility] Work Phone: 05-01-2022 13:07-0400 Diastolic blood pressure 62 mm[Hg] Dr. Yoanna Hull Work Phone: [facility] Work Phone: 05-01-2022 13:07-0400 Heart rate 92 /min Dr. Yoanna Hull Work Phone: [facility] Work Phone: 05-01-2022 13:07-0400 Respiratory rate 16 /min Dr. Yoanna Hull Work Phone: [facility] Work Phone: 05-01-2022 13:07-0400 SaO2% (BldA) [Mass fraction] 96 % Dr. Yoanna Hull Work Phone: [facility] Work Phone: 05-01-2022 13:07-0400 Systolic blood pressure 110 mm[Hg] Dr. Yoanna Hull Work Phone: [facility] Work Phone: 03-27-2022 11:04-0400 Body height 165.[address] Yoanna Hull Work Phone: [facility] Work Phone: 03-27-2022 11:04-0400 Body mass index (BMI) [Ratio] 37.8 kg/m2 Dr. Yoanna Hull Work Phone: [facility] Work Phone: 03-27-2022 11:04-0400 Body weight 102.[address] Yoanna Hull Work Phone: [facility] Work Phone: 03-27-2022 11:04-0400 Diastolic blood pressure 79 mm[Hg] Dr. Yoanna Hull Work Phone: [facility] Work Phone: 03-27-2022 11:04-0400 Heart rate 91 /min Dr. Yoanna Hull Work Phone: [facility] Work Phone: 03-27-2022 11:04-0400 SaO2% (BldA) [Mass fraction] 95 % Dr. Yoanna Hull Work Phone: [facility] Work Phone: 03-27-2022 11:04-0400 Systolic blood pressure 117 mm[Hg] Dr. Yoanna Hull Work Phone: [facility] Work Phone: 03-12-2022 12:30-0400 Body height 165.[address] Yoanna Hull Work Phone: [facility] Work Phone: 03-12-2022 12:30-0400 Body weight 102.[address] Yoanna Hull Work Phone: [facility] Work Phone: 03-12-2022 12:30-0400 Heart rate 88 /min Dr. Yoanna Hull Work Phone: [facility] Work Phone: 03-12-2022 12:30-0400 Inhaled oxygen concentration 21 % Dr. Yoanna Hull Work Phone: [facility] Work Phone: 03-12-2022 12:30-0400 SaO2% (BldA) [Mass fraction] 96 % Dr. Yoanna Hull Work Phone: [facility] Work Phone: 02-19-2022 13:59-0400 Body height 165.[address] Yoanna Hull Work Phone: [facility] Work Phone: 02-19-2022 13:59-0400 Body mass index (BMI) [Ratio] 38 kg/m2 Dr. Yoanna Hull Work Phone: [facility] Work Phone: 02-19-2022 13:59-0400 Body temperature 98.2 [degF] Dr. Yoanna Hull Work Phone: [facility] Work Phone: 02-19-2022 13:59-0400 Body weight 103.[address] Yoanna Hull Work Phone: [facility] Work Phone: 02-19-2022 13:59-0400 Diastolic blood pressure 70 mm[Hg] Dr. Yoanna Hull Work Phone: [facility] Work Phone: 02-19-2022 13:59-0400 Heart rate 92 /min Dr. Yoanna Hull Work Phone: [facility] Work Phone: 02-19-2022 13:59-0400 Respiratory rate 18 /min Dr. Yoanna Hull Work Phone: [facility] Work Phone: 02-19-2022 13:59-0400 SaO2% (BldA) [Mass fraction] 98 % Dr. Yoanna Hull Work Phone: [facility] Work Phone: 02-19-2022 13:59-0400 Systolic blood pressure 120 mm[Hg] Dr. Yoanna Hull Work Phone: [facility] Work Phone: 02-01-2022 22:00-0400 Diastolic blood pressure 65 mm[Hg] Dr. Yoanna Hull Work Phone: [facility] Work Phone: 02-01-2022 22:00-0400 Heart rate 82 /min Dr. Yoanna Hull Work Phone: [facility] Work Phone: 02-01-2022 22:00-0400 Respiratory rate 18 /min Dr. Yoanna Hull Work Phone: [facility] Work Phone: 02-01-2022 22:00-0400 SaO2% (BldA) [Mass fraction] 97 % Dr. Yoanna Hull Work Phone: [facility] Work Phone: 02-01-2022 22:00-0400 Systolic blood pressure 111 mm[Hg] Dr. Yoanna Hull Work Phone: [facility] Work Phone: 02-01-2022 15:22-0400 Body height 165.[address] Yoanna Hull Work Phone: [facility] Work Phone: 02-01-2022 15:22-0400 Body mass index (BMI) [Ratio] 37.8 kg/m2 Dr. Yoanna Hull Work Phone: [facility] Work Phone: 02-01-2022 15:22-0400 Body temperature 97.6 [degF] Dr. Yoanna Hull Work Phone: [facility] Work Phone: 02-01-2022 15:22-0400 Body weight 103.[address] Yoanna Hull Work Phone: [facility] Work Phone: 01-30-2022 13:17-0400 Body mass index (BMI) [Ratio] 36.9 kg/m2 Dr. Yoanna Hull Work Phone: [facility] Work Phone: 01-30-2022 13:17-0400 Body weight 100.[address] Yoanna Hull Work Phone: [facility] Work Phone: 01-30-2022 13:17-0400 Diastolic blood pressure 74 mm[Hg] Dr. Yoanna Hull Work Phone: [facility] Work Phone: 01-30-2022 13:17-0400 Heart rate 96 /min Dr. Yoanna Hull Work Phone: [facility] Work Phone: 01-30-2022 13:17-0400 SaO2% (BldA) [Mass fraction] 93 % Dr. Yoanna Hull Work Phone: [facility] Work Phone: 01-30-2022 13:17-0400 Systolic blood pressure 116 mm[Hg] Dr. Yoanna Hull Work Phone: [facility] Work Phone: 01-23-2022 10:28-0400 Body mass index (BMI) [Ratio] 37.8 kg/m2 Dr. Yoanna Hull Work Phone: [facility] Work Phone: 01-23-2022 10:28-0400 Body temperature 97.8 [degF] Dr. Yoanna Hull Work Phone: [facility] Work Phone: 01-23-2022 10:28-0400 Body weight 103.[address] Yoanna Hull Work Phone: [facility] Work Phone: 01-23-2022 10:28-0400 Diastolic blood pressure 68 mm[Hg] Dr. Yoanna Hull Work Phone: [facility] Work Phone: 01-23-2022 10:28-0400 Heart rate 98 /min Dr. Yoanna Hull Work Phone: [facility] Work Phone: 01-23-2022 10:28-0400 Respiratory rate 18 /min Dr. Yoanna Hull Work Phone: [facility] Work Phone: 01-23-2022 10:28-0400 SaO2% (BldA) [Mass fraction] 97 % Dr. Yoanna Hull Work Phone: [facility] Work Phone: 01-23-2022 10:28-0400 Systolic blood pressure 126 mm[Hg] Dr. Yoanna Hull Work Phone: [facility] Work Phone: 01-01-2022 11:20-0400 Body mass index (BMI) [Ratio] 39.2 kg/m2 Dr. Yoanna Hull Work Phone: [facility] Work Phone: 01-01-2022 11:20-0400 Body temperature 98.7 [degF] Dr. Yoanna Hull Work Phone: [facility] Work Phone: 01-01-2022 11:20-0400 Body weight 107.[address] Yoanna Hull Work Phone: [facility] Work Phone: 01-01-2022 11:20-0400 Diastolic blood pressure 77 mm[Hg] Dr. Yoanna Hull Work Phone: [facility] Work Phone: 01-01-2022 11:20-0400 Heart rate 83 /min Dr. Yoanna Hull Work Phone: [facility] Work Phone: 01-01-2022 11:20-0400 Respiratory rate 17 /min Dr. Yoanna Hull Work Phone: [facility] Work Phone: 01-01-2022 11:20-0400 SaO2% (BldA) [Mass fraction] 98 % Dr. Yoanna Hull Work Phone: [facility] Work Phone: 01-01-2022 11:20-0400 Systolic blood pressure 137 mm[Hg] Dr. Yoanna Hull Work Phone: [facility] Work Phone: 01-01-2022 11:20-0400 Body height 165.[address] Yoanna Hull Work Phone: [facility] Work Phone: 01-01-2022 11:20-0400 Body mass index (BMI) [Ratio] 39.2 kg/m2 Dr. Yoanna Hull Work Phone: [facility] Work Phone: 01-01-2022 11:20-0400 Body temperature 98.7 [degF] Dr. Yoanna Hull Work Phone: [facility] Work Phone: 01-01-2022 11:20-0400 Body weight 107.[address] Yoanna Hull Work Phone: [facility] Work Phone: 01-01-2022 11:20-0400 Diastolic blood pressure 77 mm[Hg] Dr. Yoanna Hull Work Phone: [facility] Work Phone: 01-01-2022 11:20-0400 Heart rate 83 /min Dr. Yoanna Hull Work Phone: [facility] Work Phone: 01-01-2022 11:20-0400 Respiratory rate 17 /min Dr. Yoanna Hull Work Phone: [facility] Work Phone: 01-01-2022 11:20-0400 SaO2% (BldA) [Mass fraction] 98 % Dr. Yoanna Hull Work Phone: [facility] Work Phone: 01-01-2022 11:20-0400 Systolic blood pressure 137 mm[Hg] Dr. Yoanna Hull Work Phone: [facility] Work Phone: 10-24-2021 13:45-0400 Body temperature 96.9 [degF] Dr. Yoanna Hull Work Phone: [facility] Work Phone: 10-24-2021 13:45-0400 Diastolic blood pressure 67 mm[Hg] Dr. Yoanna Hull Work Phone: [facility] Work Phone: 10-24-2021 13:45-0400 Heart rate 80 /min Dr. Yoanna Hull Work Phone: [facility] Work Phone: 10-24-2021 13:45-0400 Respiratory rate 16 /min Dr. Yoanna Hull Work Phone: [facility] Work Phone: 10-24-2021 13:45-0400 SaO2% (BldA) [Mass fraction] 100 % Dr. Yoanna Hull Work Phone: [facility] Work Phone: 10-24-2021 13:45-0400 Systolic blood pressure 122 mm[Hg] Dr. Yoanna Hull Work Phone: [facility] Work Phone: 10-24-2021 11:31-0400 Body height 165.[address] Yoanna Hull Work Phone: [facility] Work Phone: 10-24-2021 11:31-0400 Body mass index (BMI) [Ratio] 42.5 kg/m2 Dr. Yoanna Hull Work Phone: [facility] Work Phone: 10-24-2021 11:31-0400 Body weight [address] Yoanna Hull Work Phone: [facility] Work Phone: 09-24-2021 13:06-0500 Body mass index (BMI) [Ratio] 42 kg/m2 Dr. Yoanna Hull Work Phone: [facility] Work Phone: 09-24-2021 13:06-0500 Body temperature 98.4 [degF] Dr. Yoanna Hull Work Phone: [facility] Work Phone: 09-24-2021 13:06-0500 Body weight 114.[address] Yoanna Hull Work Phone: [facility] Work Phone: 09-24-2021 13:06-0500 Diastolic blood pressure 81 mm[Hg] Dr. Yoanna Hull Work Phone: [facility] Work Phone: 09-24-2021 13:06-0500 Heart rate 98 /min Dr. Yoanna Hull Work Phone: [facility] Work Phone: 09-24-2021 13:06-0500 Respiratory rate 15 /min Dr. Yoanna Hull Work Phone: [facility] Work Phone: 09-24-2021 13:06-0500 SaO2% (BldA) [Mass fraction] 93 % Dr. Yoanna Hull Work Phone: [facility] Work Phone: 09-24-2021 13:06-0500 Systolic blood pressure 133 mm[Hg] Dr. Yoanna Hull Work Phone: [facility] Work Phone: 09-21-2021 12:20-0500 Body temperature 98.4 [degF] Dr. Yoanna Hlul Work Phone: [facility] Work Phone: 09-21-2021 12:20-0500 Diastolic blood pressure 74 mm[Hg] Dr. Yoanna Hull Work Phone: [facility] Work Phone: 09-21-2021 12:20-0500 Heart rate 106 /min Dr. Yoanna Hull Work Phone: [facility] Work Phone: 09-21-2021 12:20-0500 Respiratory rate 16 /min Dr. Yoanna Hull Work Phone: [facility] Work Phone: 09-21-2021 12:20-0500 SaO2% (BldA) [Mass fraction] 96 % Dr. Yoanna Hull Work Phone: [facility] Work Phone: 09-21-2021 12:20-0500 Systolic blood pressure 142 mm[Hg] Dr. Yoanna Hull Work Phone: [facility] Work Phone: 09-12-2021 12:25-0500 Body mass index (BMI) [Ratio] 42.5 kg/m2 Dr. Yoanna Hull Work Phone: [facility] Work Phone: 09-12-2021 12:25-0500 Body temperature 97.9 [degF] Dr. Yoanna Hull Work Phone: [facility] Work Phone: 09-12-2021 12:25-0500 Body weight 116.[address] Yoanna Hull Work Phone: [facility] Work Phone: 09-12-2021 12:25-0500 Diastolic blood pressure 80 mm[Hg] Dr. Yoanna Hull Work Phone: [facility] Work Phone: 09-12-2021 12:25-0500 Heart rate 96 /min Dr. Yoanna Hull Work Phone: [facility] Work Phone: 09-12-2021 12:25-0500 Respiratory rate 16 /min Dr. Yoanna Hull Work Phone: [facility] Work Phone: 09-12-2021 12:25-0500 SaO2% (BldA) [Mass fraction] 97 % Dr. Yoanna Hull Work Phone: [facility] Work Phone: 09-12-2021 12:25-0500 Systolic blood pressure 140 mm[Hg] Dr. Yoanna Hull Work Phone: [facility] Work Phone: 09-11-2021 08:12-0500 Body mass index (BMI) [Ratio] 42.3 kg/m2 Dr. Yoanna Hull Work Phone: [facility] Work Phone: 09-11-2021 08:12-0500 Body weight 115.[address] Yoanna Hull Work Phone: [facility] Work Phone: 07-09-2021 09:43-0500 Body mass index (BMI) [Ratio] 40.7 kg/m2 Dr. Yoanna Hull Work Phone: [facility] Work Phone: 07-09-2021 09:43-0500 Body temperature 98.9 [degF] Dr. Yoanna Hull Work Phone: [facility] Work Phone: 07-09-2021 09:43-0500 Body weight 111.[address] Yoanna Hull Work Phone: [facility] Work Phone: 07-09-2021 09:43-0500 Diastolic blood pressure 82 mm[Hg] Dr. Yoanna Hull Work Phone: [facility] Work Phone: 07-09-2021 09:43-0500 Heart rate 84 /min Dr. Yoanna Hull Work Phone: [facility] Work Phone: 07-09-2021 09:43-0500 Respiratory rate 16 /min Dr. Yoanna Hull Work Phone: [facility] Work Phone: 07-09-2021 09:43-0500 SaO2% (BldA) [Mass fraction] 94 % Dr. Yoanna Hull Work Phone: [facility] Work Phone: 07-09-2021 09:43-0500 Systolic blood pressure 129 mm[Hg] Dr. Yoanna Hull Work Phone: [facility] Work Phone: 09-25-2020 13:31-0500 Body mass index (BMI) [Ratio] 40.8 kg/m2 Dr. Yoanna Hull Work Phone: [facility] 09-25-2020 13:31-0500 Body temperature 99.1 [degF] Dr. Yoanna Hull Work Phone: [facility] 09-25-2020 13:31-0500 Body weight 114.[address] Yoanna Hull Work Phone: [facility] 09-25-2020 13:31-0500 Diastolic blood pressure 78 mm[Hg] Dr. Yoanna Hull Work Phone: [facility] 09-25-2020 13:31-0500 Heart rate 92 /min Dr. Yoanna Hull Work Phone: [facility] 09-25-2020 13:31-0500 Respiratory rate 18 /min Dr. Yoanna Hull Work Phone: [facility] 09-25-2020 13:31-0500 SaO2% (BldA) [Mass fraction] 93 % Dr. Yoanna Hull Work Phone: [facility] 09-25-2020 13:31-0500 Systolic blood pressure 118 mm[Hg] Dr. Yoanna Hull Work Phone: [facility] Encounters Encounter Date Encounter Type Care Provider Facility Start: 06-13-2025 End: 06-13-2025 ambulatory Neema Kaba Facility:[facility] Start: 06-10-2025 End: 06-10-2025 Patient encounter procedure Shiva Lindo DDS Work Phone: Prosthodontics Comment on above: Need for full covera ge dental crown (Primary Dx) Start: 05-31-2025 End: 05-31-2025 ambulatory [facility] Facility:[facility] Start: 05-11-2025 ambulatory [facility] Facility :[facility] Start: 05-05-2025 End: 05-05-2025 ambulatory [facility] Facility:[facility] Start: 05-03-2025 ambulatory [facility] Facility :[facility] Start: 04-25-2025 End: 05-10-2025 ambulatory [facility] Facility:[facility] Start: 04-25-2025 End: 04-25-2025 ambulatory [facility] Facility:[facility] Start: 04-13-2025 ambulatory [facility] Facility:[facility] Start: 04-04-2025 End: 04-04-2025 Patient encounter procedure Shiva Lindo DDS Work Phone: Prosthodontics Comment on above: Full adventism of crown of tooth needed due to previous large adventism procedure (Primary Dx) Start: 03-10-2025 End: 03-10-[address] Gamaliel Whitehead MD Work Phone: -[facility] [place] Start: 03-10-2025 End: 03-10-2025 Dr. Neema Kaba MD -[facility] [place] Work Phone: Start: 03-10-2025 End: 03-10-2025 ambulatory Neema Kaba Facility:[facility] Start: 02-21-2025 ambulatory Vahe Nobles Facility :[facility] Start: 02-10-2025 End: 02-11-2025 Dr. Addison Linn [...] Phone: -Sleep Lab Start: 02-08-2025 End: 02-08-2025 EMPLOYMENT CLERK Nell Dale -Sleep Lab Work Phone: Start: 02-08-2025 Dr. Lata Chappell MD -[facility] Work Phone: Start: 02-08-2025 End: 02-08-2025 ambulatory Nell Dale Facility:[facility] Start: 01-21-2025 End: 01-21-2025 Kimber Arce [facility] Gastro[facility] Work Phone: Start: 01-21-2025 End: 01-21-[address] 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 Addison Linn MD Work Phone: [facility] Work Phone: Start: 01-06-2025 End: 01-06-2025 Dr. Dontrell Torres MD -[facility] Work Phone: Start: 01-06-2025 End: 01-06-[address] Gamaliel Whitehead MD Work Phone: [facility] Work Phone: Start: 12-22-2024 End: 12-22-2024 Nancy Ge -[facility] Work Phone: Start: 12-22-2024 End: 12-22-[address] Gamaliel Whitehead MD Work Phone: [facility] Work Phone: Start: 12-22-2024 End: 12-22-2024 ambulatory [facility] Facility:[facility] Start: 12-09-2024 End: 12-10-2024 Dr. Raghav Ramon MD -Emergency Depart ent Work Phone: Start: 12-09-2024 End: 12-10-2024 Emergency department patient visit Gamaliel Whitehead Facility:[facility] Start: 12-09-2024 ambulatory Kimber Arce Medardo ity:[facility] Start: 11-23-2024 End: 11-23-[address] Lisa Barraza DO Work Phone: [facility] Work Phone: Start: 11-23-2024 End: 11-23-2024 Dr. Neema Kaba MD -Outpatient Bone Densitometry Work Phone: Start: 11-23-2024 End: 11-23-2024 ambulatory [facility] Facility:[facility] Start: 11-19-2024 End: 11-19-[address] Lisa Barraza DO Work Phone: [facility] Work Phone: Start: 11-19-2024 End: 11-19-2024 Dr. Marycarmen Stevens MD -Laboratory Work Phone: Start: 11-19-2024 End: 11-19-2024 ambulatory Marycarmen Stevens Facility:[facility] Start: 10-21-2024 End: 10-21-2024 Vahe Nobles DO -[facility] Work Phone: Start: 10-21-2024 End: 10-21-2024 ambulatory Vahe Nobles Facility:[facility] Start: 10-21-2024 ambulatory Neema Kaba Facility:[facility] Start: 09-16-2024 End: 09-16-2024 Dr. Gamaliel Whitehead MD -Laboratory, [facility] Start: 09-16-2024 End: 09-16-2024 ambulatory Gamaliel Whitehead Facility:[facility] Start: 08-12-2024 Dr. Shlomo oGins MD -[facility] Work Phone: Start: 08-11-2024 Dr. Shlomo Goins MD -[facility] Work Phone: Start: 08-10-2024 Dr. Shlomo Goins MD -[facility] Work Phone: Start: 08-09-2024 Dr. Shlomo Goins MD -[facility] Work Phone: Start: 08-08-2024 Dr. Valeria Smith MD - [facility] Work Phone: Start: 08-07-2024 ambulatory Alexandra Tompkins ty:[facility] Start: 08-07-2024 End: 08-12-2024 Evaluation and management of inpatient No Primary Care Physician Facility:[facility] Start: 08-07-2024 End: 08-12-2024 Dr. Shlomo Goins MD -Medical Surgical 3 Work Phone: Start: 07-21-2024 End: 07-21-2024 ambulatory Rekha Dorman NP Facility:[facility] Start: 03-02-2024 End: 03-02-2024 Assmt & care planning pt w/cognitive impairment Roger Bustamante MD Work Phone: [facility] Comment on above: Loss of memory (Prim sarah Dx) Start: 03-02-2024 ambulatory EFEWONGBE Osvaldo HULL Faci lity:[facility] Start: 02-11-2024 ambulatory EFEWONGBE B DARRYLE Faci lity:[facility] Start: 02-11-2024 End: 02-11-2024 Subsequent hospital visit by physician Roger Bustamante MD Work Phone: [facility] [place] Comment on above: Arrived Start: 02-03-2024 End: 02-03-2024 Assmt & care planning pt w/cognitive impairment Roger Bustamante MD Work Phone: [facility] Comment on above: Loss of memory (Prim sarah Dx) Start: 02-03-2024 ambulatory EFEWONGBE Osvaldo HULL Faci lity:[facility] Start: 01-21-2024 End: 01-21-2024 Office outpatient visit 25 minutes Angélica Ingram MD Work Phone: [facility] [place] Comment on above: MARCELLA (obstructive sle ep apnea) (Primary Dx); Hypersomnia Start: 01-21-2024 ambulatory EFELONGBE Osvaldo Ramirezi lity:[facility] Start: 11-27-2023 End: 11-27-2023 Emergency department patient visit Dr. Yoanna Hull Work Phone: [facility]-Emergency Department Work Phone: Start: 11-25-2023 End: 11-25-[address] Yoanna Hull Work Phone: [facility] Work Phone: Start: 11-25-2023 End: 11-25-[address] Yoanna Hull Work Phone: [facility] Work Phone: Start: 11-20-2023 End: 11-20-[address] Yoanna Hull Work Phone: [facility] Work Phone: Start: 11-14-[address] Michael Hull Work Phone: [facility] [facility] Work Phone: Start: 11-04-2023 End: 11-04-[address] Yoanna Hull Work Phone: [facility] Work Phone: Start: 11-04-2023 End: 11-04-[address] Yoanna Hull Work Phone: [facility]-Outpatient Bone Densitometry Work Phone: Start: 11-03-2023 End: 11-03-2023 Patient encounter procedure Xena Linder PhD Work Phone: Neurology [facility] Comment on above: Memory loss (Primary Dx) Start: 11-03-2023 ambulatory XENA LINDER Facility :[facility] Start: 10-20-2023 End: 10-20-2023 Patient encounter procedure Xena Linder PhD Work Phone: Neurology [facility] Comment on above: Memory loss (Primary Dx) Start: 10-20-2023 ambulatory ANGÉLICA INGRAM Facility:[facility] Start: 10-14-2023 End: 10-14-[address] Yoanna Hull Work Phone: [facility] Work Phone: Start: 10-14-2023 End: 10-14-[address] Yoanna Hull Work Phone: [facility]-Laboratory Work Phone: Start: 10-08-2023 Refill Bharati Merritt APRN.LAUNDRY EQUIPMENT OPERATOR Work Phone: Neurology Comment on above: Refill Request Start: 09-24-2023 End: 09-24-2023 Office outpatient visit 15 minutes Angélica Ingram MD Work Phone: [facility] [place] Comment on above: MARCELLA (obstructive sle ep apnea) (Primary Dx) Start: 09-24-2023 ambulatory [facility] Facility:[facility] Start: 09-10-[address] Yoanna Hull Work Phone: [facility] Start: 09-10-2023 End: 09-10-2023 Encounter for general adult medical examination without abnormal findings Dr. Yoanna Hull Work Phone: [facility] Start: 09-10-2023 End: 09-10-[address] Yoanna Hull Work Phone: [facility] Work Phone: Start: 09-02-2023 End: 09-02-[address] Yoanna Hull Work Phone: [facility] Work Phone: Start: 09-02-2023 End: 09-02-[address] Yoanna Hull Work Phone: [facility]-Laboratory Work Phone: Start: 08-26-2023 End: 08-26-[address] Yoanna Hull Work Phone: [facility] Work Phone: Start: 08-26-2023 End: 08-26-[address] Yoanna Hull Work Phone: [facility]-Radiology, [facility] Work Phone: Start: 07-22-2023 End: 07-22-[address] Yoanna Hull Work Phone: [facility]-Pulmonary Medicine [facility] Work Phone: Start: 07-09-2023 End: 07-09-[address] Yoanna Hull Work Phone: [facility] Work Phone: Start: 07-09-2023 End: 07-09-[address] [facility] Start: 06-09-2023 End: 06-09-[address] Yoanna Hull Work Phone: [facility] Internal Medicine Work Phone: Start: 06-03-2023 End: 06-03-[address] Yoanna Hull Work Phone: [facility] Work Phone: Start: 06-03-2023 End: 06-03-[address] Yoanna Hull Work Phone: [facility] Gastroenterology Work Phone: Start: 05-28-2023 End: 05-28-2023 ambulatory [facility] PRIMARY CARE PROVIDER Facility:[facility] Start: 05-16-2023 End: 05-16-[address] Yoanna Hull Work Phone: [facility] Work Phone: Start: 05-16-2023 End: 05-16-[address] Yoanna Hull Work Phone: [facility] Work Phone: Start: 04-16-2023 End: 04-16-[address] Yoanna Hull Work Phone: [facility] Work Phone: Start: 04-16-2023 End: 04-16-[address] [facility] Hull [facility] [place] Start: 03-05-2023 End: 03-05-[address] Yoanna Hull Work Phone: [facility] Work Phone: Start: 02-10-2023 End: 02-10-[address] Yoanna Hull Work Phone: [facility] Work Phone: Start: 01-27-2023 End: 01-27-[address] Yoanna Hull Work Phone: [facility]-Pulmonary Medicine [facility] Work Phone: Start: 01-19-2023 End: 01-19-[address] Yoanna Hull Work Phone: [facility] Work Phone: Start: 01-19-2023 End: 01-19-[address] Yoanna Hull Work Phone: [facility]-Laboratory Start: 01-02-2023 Non-patient / Non-visit Dr. Yoanna Hull Work Phone: [facility] Start: 01-02-2023 End: 01-02-[address] Yoanna Hull Work Phone: [facility] Work Phone: Start: 01-02-2023 End: 01-02-[address] Yoanna Hull Work Phone: [facility]-Pulmonary Services/Neurology Start: 12-31-2022 Non-patient / Non-visit Dr. Yoanna Hull Work Phone: [facility] Start: 12-31-2022 End: 12-31-[address] Yoanna Hull Work Phone: [facility] Work Phone: Start: 12-31-2022 End: 12-31-[address] Yoanna Hull Work Phone: [facility]-Pulmonary Services/Neurology Start: 12-16-2022 End: 12-16-[address] Yoanna Hull Work Phone: [facility] Work Phone: Start: 12-16-2022 End: 12-16-[address] Yoanna Hull Work Phone: [facility], [facility] Start: 12-05-2022 End: 12-05-[address] Yoanna Hull Work Phone: [facility] Gastroenterology Start: 11-22-2022 End: 11-22-[address] Yoanna Hull Work Phone: [facility] Internal Medicine Start: 11-21-2022 End: 11-21-[address] Yoanna Hull Work Phone: [facility] Start: 11-11-2022 End: 11-11-[address] Yoanna Hull Work Phone: [facility]-Laboratory Start: 10-28-2022 End: 10-28-[address] [facility] Hull [facility] [place] Start: 10-08-2022 Telephone encounter Neurology Provid er Neurology Comment on above: Referral Request Start: 10-07-2022 Telephone encounter Luis Emerson MD Work Phone: [facility] [place] Comment on above: Received Outside Med ical Records (Referral for [facility] from [facility] [place]) Start: 09-10-2022 End: 09-10-[address] Yoanna Hull Work Phone: [facility] Work Phone: Start: 09-10-2022 End: 09-10-[address] Yoanna Hull Work Phone: [facility]-Outpatient Breast Imaging Start: 08-19-2022 End: 08-19-[address] Yoanna Hull Work Phone: [facility] Internal Medicine Start: 08-06-2022 End: 08-06-[address] Yoanna Hull Work Phone: [facility]-Laboratory Start: 07-30-2022 End: 07-30-[address] Yoanna Hull [facility] Start: 07-03-2022 End: 07-03-[address] Yoanna Hull Work Phone: [facility] Work Phone: Start: 07-03-2022 End: 07-03-[address] Yoanna Hull [facility] Start: 06-13-2022 End: 06-13-[address] Yoanna Hull Work Phone: [facility] Work Phone: Start: 06-13-2022 End: 06-13-[address] Yoanna Hull Work Phone: [facility]-Laboratory Start: 06-12-2022 End: 06-12-[address] Yoanna Hull Work Phone: [facility] Gastroenterology Start: 05-16-2022 End: 05-16-[address] Yoanna Hull Work Phone: [facility] Work Phone: Start: 05-16-2022 End: 05-16-[address] [facility] Start: 05-01-2022 End: 05-01-[address] Yoanna Hull Work Phone: [facility] Internal Medicine Start: 04-05-2022 End: 04-05-[address] Yoanna Hull Work Phone: [facility] Work Phone: Start: 04-05-2022 End: 04-05-[address] [facility] Start: 04-02-2022 End: 04-02-[address] Yoanna Hull Work Phone: [facility] Work Phone: Start: 04-02-2022 End: 04-02-[address] Yoanna Hull Work Phone: [facility] Start: 03-27-2022 End: 03-27-[address] Yoanna Hull Work Phone: [facility] Start: 03-13-2022 Non-patient / Non-visit Dr. Yoanna Hull Work Phone: [facility] Start: 03-12-2022 End: 03-12-[address] Yoanna Hull Work Phone: [facility] Start: 03-11-2022 Non-patient / Non-visit Dr. Yoanna Hull Work Phone: [facility] Start: 03-11-2022 End: 03-11-[address] Yoanna Hull Work Phone: [facility]-Pulmonary Services/Neurology Start: 03-08-2022 End: 03-08-[address] [facility] Hull [facility] Start: 02-23-2022 End: 02-23-[address] Yoanna Hull Work Phone: [facility] Start: 02-19-2022 End: 02-19-[address] Yoanna Hull [facility] Phone[facility] [place] Start: 02-19-2022 End: 02-19-[address] Yoanna Hull Work Phone: [facility] Internal Medicine Start: 02-14-2022 End: 02-14-[address] Yoanna uHll Work Phone: [facility] Start: 02-06-2022 End: 02-06-[address] Yo[facility] Hull [facility] Start: 02-01-2022 End: 02-01-2022 Emergency department patient visit Dr. Yoanna Hull Work Phone: [facility]-Emergency Department Start: 01-30-2022 End: 01-30-[address] Yoanna Hull Work Phone: [facility] Start: 01-30-2022 End: 01-30-[address] Yoanna Hull Work Phone: [facility] Start: 01-23-2022 End: 01-23-[address] Yoanna Hull Work Phone: [facility] Internal Medicine Start: 01-01-2022 End: 01-01-[address] Yoanna Hull Work Phone: [facility] Medicine [facility] Start: 12-28-2021 End: 12-28-[address] Yoanna Hull Work Phone: [facility]Laboratory, Specimen Start: 12-25-2021 End: 12-25-[address] Yoanna Hull Work Phone: [facility] Start: 11-23-2021 End: 11-23-[address] Yoanna Hull Work Phone: [facility] Start: 10-24-2021 Non-patient / Non-visit Dr. Yoanna Hull Work Phone: [facility] Start: 10-24-2021 End: 10-24-2021 Admission to same day surgery center Dr. Yoanna Hull Work Phone: [facility]-Endoscopy Start: 10-23-2021 End: 10-23-[address] [facility] Hull [facility] Start: 10-12-2021 End: 10-12-[address] Yoanna Hull Work Phone: [facility] Start: 10-03-2021 End: 10-03-[address] Yoanna Hull Work Phone: [facility] Start: 09-24-2021 End: 09-24-[address] Yoanna Hull Work Phone: [facility] Start: 09-21-2021 End: 09-21-[address] Yoanna Hull Work Phone: [facility] Start: 09-12-2021 End: 09-12-[address] Yoanna Hull Work Phone: [facility] Medicine Start: 09-11-2021 End: 09-11-[address] Yoanna Hull Work Phone: [facility] Start: 09-11-2021 End: 09-11-[address] Yoanna Hull Work Phone: [facility] Start: 07-09-2021 End: 07-09-[address] Yoanna Hull Work Phone: [facility]-Pulmonary Medicine [facility] Procedures Date Procedure Procedure Detail Performing Clinician Start: 06-10-2025 6 INITIAL PREPARATION & PROVISIONAL - CROWN - PORCELAIN/CERAMIC Shiva Guicho DDS Work Phone: Start: 04-04-2025 RE-EVALUATION - POST-OPERATIVE OFFICE VISIT Shiva Guicho DDS Work Phone: Start: 04-04-2025 10 PREFAB POST AND CORE IN ADDITION TO CROWN Shiva Guicho DDS Work Phone: Start: 04-04-2025 12 DENTAL IMPLANT Shiva Guicho DDS Work Phone: Start: 04-04-2025 12 ZIRCONIA CROWN Shiva Guicho DDS Work Phone: Start: 04-04-2025 22 I COMPOSITE FILLING Shiva Guicho DD S Work Phone: Start: 04-04-2025 4 [...] Addison Linn MD Work Phone: Start: 02-10-2025 Mean corpuscular [...] 11-27-2023 CT of chest without contrast Dr. Yoanna Hull Work Phone: Start: 11-27-2023 X-ray of both feet Dr. Yoanna Hull Work Phone: Start: 11-25-2023 Plain x-ray of hand Dr. Yoanna Hull Work Phone: Start: 11-25-2023 Radiologic examination of knee Dr. Yoanna Hull Work Phone: Start: 11-25-2023 X-ray of chest posteroanterior view Dr. Yoanna Hull Work Phone: Start: 11-04-2023 Dual energy X-ray absorptiometry Dr. Yoanna Hull Work Phone: Start: 11-04-[address] Yoanna raymundo Work Phone: Start: 09-24-2023 Follow-up visit Follow-up ANGÉLICA INGRAM Start: 08-26-2023 X-ray of cervical spine Dr. Yoanna barfield Work Phone: Start: 02-10-2023 X-ray of unilateral ribs, two views without x-ray of chest Dr. Yoanna Hull Work Phone: Start: 12-16-2022 Ultrasound elastography of liver Dr. Yoanna Hull Work Phone: Start: 09-10-[address] Yoanna raymundo Work Phone: Start: 04-02-[address] Yoanna Hull Work Phone: Start: 04-02-[address] Yoanna barfield Work Phone: Start: 10-23-2021 End: 10-23-[address] Yoanna Hull Work Phone: Start: 10-12-2021 End: 10-12-2021 [place] parasites identification Dr. Yoanna Hull Work Phone: Start: 10-03-2021 Computed tomography of abdomen and pelvis with contrast Dr. Yoanna Hull Work Phone: Start: 09-21-2021 Plain X-ray of tibia and fibula Dr. Yoanna Hull Work Phone: Start: 09-21-2021 Radiologic examination of knee Dr. Yoanna Hull Work Phone: Start: 05-13-2012 Colonoscopy Johana Rios Jr. Work Phone: History of cataract extraction History of cataract surgery Dr. Yoanna Hull Work Phone: Laboratory test resu lt abnormal Abnormal laboratory test Dr. Yoanna Hull Work Phone: [facility] [place] parasites identification Dr. Yoanna Hull Work Phone: Urine culture Dr. Yoanna Hull Work Phone: Viral antigen assay Dr. Werner Hull Work Phone: Plan of Treatment Date Care Activity Detail Author Start: 08-20-2025 ambulatory Facility:[facility] Start: 05-10-2025 End: 05-10-2025 Patient encounter procedure 05/10/2025 4:30 PM EDT Office Visit Neurology [facility] [address] [address] Roger Bustamante MD [address] [address] [facility] Start: 04-11-2025 COVID-19 VACCINE ( season) COVID-19 VACCINE ( season) [facility] Start: 04-11-2025 Influenza vaccination INFLUENZA VACC INE (#1) [facility] Start: 02-10-[address] [facility] Start: 02-10-[address] [facility] Start: 02-08-[address] [facility] Start: 01-19-2025 End: 01-19-2025 Patient encounter procedure 01/19/2025 11:30 AM EDT Office Visit [facility] [address] [id number] Angélica Ingram MD [address] [place] [phone] [facility] [place] Start: 12-10-[address] [facility] Start: 12-09-[address] [facility] Start: 09-09-2024 End: 09-09-2024 Patient encounter procedure 09/09/2024 1:10 PM EST Office Visit Neurology [facility] [address] [place] [address] Roger Bustamante MD [address] [place] [address] [facility]rology [facility] Start: 08-12-2024 Patient discharge [facility] Start: 08-11-2024 Patient referral to dietitian [facility] Start: 08-09-[address] [facility] Start: 08-09-2024 Application of ice collar, cap or bag [facility] Start: 08-08-2024 Measuring intake and output [facility] Start: 08-08-2024 Referral to service [facility] Start: 08-08-2024 End: 08-08-[address] [facility] Start: 08-08-2024 Notification of physician [facility] Start: 08-08-2024 Care regimes management [facility] Start: 08-08-[address] [facility] Start: 08-08-2024 Application of intermittent pneumatic compression device [facility] Start: 08-08-2024 Following clinical pathway protocol [facility] Start: 08-08-2024 Assessment of risk o f venous thromboembolism [facility] Start: 08-08-[address] [facility] Start: 08-08-2024 Insertion of cathete r into peripheral vein [facility] Start: 08-08-2024 Providing care accor ding to standard [facility] Start: 08-08-2024 Provision of activit y privileges [facility] Start: 08-08-2024 Referral to occupati onal therapist [facility] Start: 08-08-2024 Referral to service [facility] Start: 08-08-2024 Inhalation therapy procedure [facility] Start: 08-08-2024 Patient referral to dietitian [facility] Start: 08-08-2024 End: 08-08-[address] [facility] Start: 08-07-2024 Admission procedure [facility] Start: 04-11-2024 COVID-19 VACCINE ( season) COVID-19 VACCINE ( season) [facility] Start: 04-11-2024 Influenza vaccination INFLUENZA VACC INE (#1) [facility] Start: 03-02-2024 End: 03-02-2024 Patient encounter procedure 03/02/2024 3:10 PM EDT Office Visit Neurology [facility] [address] [facility] [address] [place] [address] Roger Bustamante MD [address] [place] [phone] Neurology [facility] Start: 02-11-2024 Subsequent hospital visit by physician 02/11/2024 8:20 PM EDT Hospital Encounter [facility] [place] [address] [place] [address] Roger Bustamante MD [address] [place] [phone] [facility] [place] Start: 02-03-2024 End: 02-02-2025 Cyanocobalamin vitamin b-12 VITAMIN B12 Lab Routine Loss of memory Expected: 02/03/2024, Expires: 02/02/2025 [facility] Comment on above: Expected: 02/03/2024 , Expires: 02/02/2025 Start: 02-03-2024 End: 02-02-2025 Folate [Mass/volume] in Serum or Plasma FOLATE, SERUM Lab Routine Loss of memory Expected: 02/03/2024, Expires: 02/02/2025 [facility] Comment on above: Expected: 02/03/2024 , Expires: 02/02/2025 Start: 02-03-2024 End: 02-02-2025 METHYLMALONIC ACID METHYLMALONIC ACID Lab Routine Loss of memory Expected: 02/03/2024, Expires: 02/02/2025 [facility] Comment on above: Expected: 02/03/2024 , Expires: 02/02/2025 Start: 02-03-2024 End: 02-02-2025 MR Brain WO contrast MRI BRAIN WITHOUT CONTRAST Imaging Routine Loss of memory Expected: 02/03/2024, Expires: 02/02/2025 [facility] Comment on above: Expected: 02/03/2024 , Expires: 02/02/2025 Start: 02-03-2024 End: 02-03-2024 Patient encounter procedure 02/03/2024 1:10 PM EDT Office Visit Neurology [facility] [address] [place] [phone] Roger Bustamante MD [address] [place] [address] [facility]rology [facility] Start: 01-21-2024 End: 01-21-2024 Patient encounter procedure 01/21/2024 11:00 AM EDT Office Visit [facility] [address] [address] Angélica Ingram MD [address] [facility] [place] [phone] [facility] [place] Start: 11-27-[address] [facility] Start: 11-25-2023 Patient referral [facility] Work Phone: Start: 11-03-2023 End: 11-03-2023 Patient encounter procedure 11/03/2023 1:30 PM EDT Office Visit Neurology [facility] [address] [place] [phone] Xena Linder, PhD [address] [place] [address] Neurology [facility] Start: 10-20-2023 End: 10-20-2023 Patient encounter procedure 10/20/2023 12:30 PM EDT Office Visit Neurology [facility] [address] [place] [address] Xena Linder, PhD [address] [place] [address] Neurology [facility] Start: 08-11-2023 Advance Directive Discussion Advance Directive Discussion [facility] Start: 08-11-2023 Depression Assessment Depression Ass essment [facility] Start: 04-11-2023 COVID-19 VACCINE () COVID-19 VACCINE () [facility] Start: 04-11-2023 Influenza vaccination Influenza Vacc ine (#1) [facility] Start: 01-27-2023 Patient referral [facility] Work Phone: Start: 08-11-2022 ADVANCE DIRECTIVE DISCUSSION ADVANCE DIRECTIVE DISCUSSION [facility] Start: 08-11-2022 DEPRESSION ASSESSMENT DEPRESSION ASS ESSMENT [facility] Start: 06-13-2022 General foods mix RA ST test [facility] Work Phone: Start: 04-11-2022 Influenza vaccination INFLUENZA (#1) [facility] Start: 02-19-2022 Patient referral [facility] Work Phone: Start: 10-24-2021 Colonoscopy flx dx w/collj spec when pfrmd DIAGNOSTIC COLONOSCOPY [facility] Work Phone: Start: 10-24-2021 Egd transoral biopsy single/multiple EGD BIOPSY SINGLE/MULTIPLE [facility] Work Phone: Start: 10-17-2021 Screening for osteoporosis DEXA SCAN DISCUSSION [facility] Start: 2017 BONE DENSITY BONE DENSITY [facility] Start: 2017 Pneumococcal vaccination PNEUM OCOCCAL VACCINE SERIES (2 of 2 - PCV) [facility] Start: 2017 Pneumococcal Vaccine : 65+ (1 of 1 - PCV) Pneumococcal Vaccine: 65+ (1 of 1 - PCV) [facility] Start: 2017 PNEUMOCOCCAL: 65+ (1 - PCV) PNEUMOCOCCAL: 65+ (1 - PCV) [facility] Start: 2017 Screening for osteoporosis Bone Density Screening [facility] Start: 05-13-2017 Colonoscopy COLONOSCOPY [facility] Start: 05-13-2017 COLORECTAL CANCER SCREENING COLORECTAL CANCER SCREENING [facility] Start: 05-13-2017 Screening for malign ant neoplasm of colon [facility] Start: 05-13-2013 Screening for malign ant neoplasm of colon COLORECTAL CANCER SCREENING DISCUSSION [facility] Start: 2012 RSV Vaccine (1 - 1-d ose 60+ series) RSV Vaccine (1 - 1-dose 60+ series) [facility] Start: 08-11-2009 Tetanus vaccination TETANUS [facility] Start: 01-21-2003 DIABETES SCREEN DIABETES SCREEN [facility] Start: 01-21-2003 Diabetes Screening Diabetes Screenin g [facility] Start: 2002 SHINGRIX VACCINE (1 of 2) HOPKINS GRIX VACCINE (1 of 2) [facility] Start: 2002 Zoster vaccine hzv l catherine for subcutaneous use ZOSTER (SHINGLES) VACCINE (1 of 2) [facility] Start: 1997 COLOGUARD (FIT-DNA) COLOGUARD (FIT-D NA) [facility] Start: [address] COLONOGRAPHY [facility] Start: 1997 FECAL OCCULT BLOOD FECAL OCCULT BLOO D [facility] Start: 1997 Lipid panel Lipid Screening [facility] Start: 1997 LIPID SCREEN LIPID SCREEN [facility] Start: 1997 Screening for malign ant neoplasm of colon [facility] Start: 1997 SIGMOIDOSCOPY SIGMOIDOSCOPY [facility] Start: 1992 Lipid panel LIPID SCREENING [facility] Start: 1992 Mammography MAMMOGRAM [facility] Start: 1992 Screening for malign ant neoplasm of breast [facility] Start: 1973 Screening for malign ant neoplasm of cervix CERVICAL CANCER SCREENING DISCUSSION [facility] Start: 12-05-1971 Third diphtheria, te tanus and acellular pertussis (DTaP) vaccination TDAP (ADULT) [facility] Start: 12-05-1971 Urine microalbumin profile [facility] Start: 1970 HEPATITIS C SCREENING HEPATITIS C [facility] Start: 1970 Hepatitis C screening Hepatitis C [facility] Start: 06-05-1953 COVID-19 VACCINE (#1) COVID-19 VACCI NE (#1) [facility] Start: 1952 Dental Oral Exam Dental Oral Exam [facility] Start: 1952 Dental Prophylaxis Dental Prophylaxi s [facility] Start: 1952 Hepatitis C screening HEPATITI S C VIRUS SCREENING [facility] Start: 1952 Potassium [Moles/vol ume] in Serum or Plasma POTASSIUM [facility] Start: 1952 Screening for osteoporosis DEXA SCAN DISCUSSION [facility] Start: 1952 Thyroid stimulating hormone measurement TSH [facility] Albumin [Moles/volum e] in Serum or Plasma [facility] Albumin/Globulin ratio [facility] Aldosterone [Mass/vo lume] in Serum or Plasma [facility] Work Phone: Beef IgE Ab [Units/volume] in Serum [facility] Work Phone: Chocolate IgE Ab [Units/volume] in Serum [facility] Work Phone: Bradford IgE Ab [Units/volume] in Serum [facility] Work Phone: Corticotropin [Mass/volume] in Plasma [facility] Work Phone: Cow milk IgE Ab [Units/volume] in Serum [facility] Work Phone: DXA Bone [Mass/Area] Bone density [facility] Electrophoresis: [id number] [facility] Electrophoresis: azam ma globulin [facility] Exercise tolerance test [facility] Work Phone: Exercise tolerance test [facility] Fish RAST [facility] Work Phone: Globulin measurement [facility] IgA [Mass/volume] in Serum or Plasma [facility] IgG [Mass/volume] in Serum or Plasma [facility] IgM [Mass/volume] in Serum or Plasma [facility] Measurement of respiratory function [facility] Work Phone: Measurement of respiratory function [facility] MG Breast - bilatera l Screening [facility] Work Phone: MG Breast - bilatera l Screening [facility] MG Breast - bilatera l Screening [facility] End: 02-11-2024 MR Brain WO contrast [facility] Comment on above: 1 Occurrences starti ng 02/11/2024 until 02/11/2024 Patient Education [facility] Work Phone: [facility] referral [facility] Work Phone: Peanut IgE Ab [Units/volume] in Serum [facility] Work Phone: Pork IgE Ab [Units/volume] in Serum [facility] Work Phone: Protein electrophore sis panel - Serum or Plasma [facility] Renin [Enzymatic activity/volume] in Plasma [facility] Work Phone: Serum protein electrophoresis [facility] Soybean IgE Ab [Units/volume] in Serum [facility] Work Phone: Wheat IgE Ab [Units/volume] in Serum [facility] Work Phone: Whole Egg IgE Ab [Units/volume] in Serum [facility] Work Phone: [facility] Immunizations Immunization Date Immunization Notes Care Provider Isis cid 04-07-2024 influenza virus vaccine, unspecified formulation Shiva Lindo DDS Work Phone: [facility] Work Phone: 06-09-2023 influenza, injectabl e, quadrivalent, preservative free Dr. Yoanna Hull Work Phone: [facility] 06-09-2023 influenza virus vaccine, unspecified formulation Roger Bustamante MD Work Phone: [facility] 06-12-2020 influenza, injectable,quadrivalent , preservative free, pediatric Dr. Yoanna Hull Work Phone: [facility] 06-12-2020 Flucelvax Quad (PF) (flu vac qs 2019(4 yr up)CD(PF)) 60 mcg ([address] Yoanna Hull Work Phone: [facility] Work Phone: 06-11-[address] Yoanna Hull Work Phone: [facility] 05-18-2019 Fluad 2019-20 65yr up(PF)45 mcg(15 mcgx3)/0.5 mL intramuscular syringe (flu vac Dr. Yoanna Hull Work Phone: [facility] Work Phone: 06-01-2018 Fluad 2018-19 65yr up(PF)45 mcg(15 mcgx3)/0.5 mL intramuscular syringe (flu vac Dr. Yoanna Hull Work Phone: [facility] Work Phone: 06-01-[address] Yoanna Hull Work Phone: [facility] 05-20-2017 influenza, injectabl e, quadrivalent, preservative free Dr. Yoanna Hull Work Phone: [facility] 05-20-2017 influenza, seasonal, injectable Dr. Yoanna Hull Work Phone: [facility] 06-06-2015 influenza, injectabl e, quadrivalent, preservative free Dr. Yoanna Hull Work Phone: [facility] 06-06-2015 influenza, seasonal, injectable Dr. Yoanna Hull Work Phone: [facility] Payers Date Payer Category Payer Self-pay [id number] [facility] 2023 Medicare MEDICARE MEDICAR E A AND B [id number] 2023-Present [address] [place] [address] [id number] [id number] 2017 Unknown [id number]. 1.13.159.2.7.3.6 [id number] 2017 Medicare [id number] 2015 Unknown [id number] 1950 Unknown [id number] 2.16.840.1.123253.3.579.2.594 1952 Unknown [id number] 2.16.840.1.706774.3.579.2.594 1952 Unknown [id number] 2.16.840.1.430200.3.579.2.594 1952 Unknown [id number] 2.16.840.1.977064.3.579.2.594 1952 Unknown [id number] 2.16.840.1.262820.3.579.2.594 1952 Unknown [id number] 2.16.840.1.486767.3.579.2.594 1952 Unknown [id number] 2.16.840.1.435187.3.579.2.594 1950 Unknown [id number] 2.16.840.1.943334.3.579.2.594 Medicare [id number] Unknown [id number] 2.16.840.1.574309.3.579.2.462 Unknown [id number] 2.16.840.1.605223.3.579.2.462 Unknown [id number] 2.16.840.1.905438.3.579.2.462 Unknown [id number] 2.16.840.1.901003.3.579.2.462 Unknown [id number] 2.16.840.1.293150.3.579.2.462 Unknown [id number] 2.16.840.1.458234.3.579.2.462 Unknown [id number] 2.16.840.1.934211.3.579.2.462 Unknown [id number] 2.16.840.1.373428.3.579.2.462 Unknown [id number] 2.16.840.1.120487.3.579.2.462 Unknown [id number] 2.16.840.1.172258.3.579.2.462 Unknown [id number] 2.16.840.1.167255.3.579.2.462 Unknown [id number] 2.16.840.1.177165.3.579.2.462 Unknown [id number] 2.16.840.1.133148.3.579.2.462 Unknown [id number] 2.16.840.1.061303.3.579.2.462 Unknown [id number] 2.16.840.1.454117.3.579.2.462 Unknown [id number] 2.16.840.1.361181.3.579.2.462 Unknown [id number] 2.16.840.1.707830.3.579.2.462 Unknown [id number] 2.16.840.1.575445.3.579.2.462 Unknown [id number] 2.16.840.1.815296.3.579.2.462 Unknown [id number] 2.16.840.1.132934.3.579.2.462 Unknown [id number] 2.16.840.1.521413.3.579.2.462 Unknown [id number] 2.16.840.1.717227.3.579.2.462 Unknown [id number] 2.16.840.1.003854.3.579.2.462 Unknown [id number] 2.16.840.1.486211.3.579.2.462 Unknown [id number] 2.16.840.1.735948.3.579.2.462 Unknown [id number] 2.16.840.1.724280.3.579.2.462 Unknown [id number] 2.16.840.1.335297.3.579.2.462 Unknown [id number] 2.16.840.1.055449.3.579.2.462 Unknown [id number] 2.16.840.1.512631.3.579.2.462 Unknown [id number] 2.16.840.1.212686.3.579.2.462 Unknown [id number] 2.16.840.1.759359.3.579.2.462 Unknown [id number] 2.16.840.1.762749.3.579.2.462 Unknown [id number] 2.16.840.1.616184.3.579.2.462 Unknown [id number] 2.16.840.1.467190.3.579.2.462 Social History Date Type Detail Facility [facility] Work Phone: Start: 10-19-2021 End: 11-27-2023 Tobacco smoking status NHIS Unknown if ever smoked [facility] Start: 01-13-2020 None;Rare [facility] Start: 01-13-[address] [facility] Start: 1950 Sex Assigned At Female W [facility] Start: 05-07-2012 End: 05-26-2023 Tobacco smoking status NHIS Never smoked tobacco [facility] Work Phone: Start: 05-07-2012 End: 05-26-2023 Tobacco use and exposure Smokeless tobacco non-user [facility] Work Phone: Start: 05-14-2012 Alcohol intake Current drinke r of alcohol (finding) [facility] Start: 05-07-2012 Alcohol Comment socail [facility] Start: 1950 Sex Assigned At Not on file C [facility] Start: 11-24-2015 Spouse/ Signif icant Other [facility] Start: 02-09-2016 Non-smoker [facility] Start: 09-24-2023 End: 06-10-2025 Alcoholic beverage intake Lifetime non-drinker (finding) [facility] Start: 09-24-2023 End: 06-10-2025 History of Social function [facility] Start: 09-24-2023 End: 06-10-2025 Tobacco use panel [facility] Start: 01-28-2023 End: 11-24-2024 Sex Female (finding) [facility] Medical Equipment Procedure Code Equipment Code Equipment Origin al Text Equipment Identifier Dates Fusion, joint FDA Start: 06-11-2024 Fusion, joint [id number] FDA Start: 06-11-2024 Fusion, joint FDA Start: 06-11-2024 Fusion, joint FDA Start: 06-11-2024 Fusion, joint FDA Start: 06-11-2024 Fusion, joint FDA Start: 06-11-2024 Fusion, joint FDA Start: 06-11-2024 Fusion, joint ()[id number] FDA Start: 06-11-2024 Fusion, joint ()[id number] FDA Start: 06-11-2024 Fusion, joint ()[id number] FDA Start: 06-11-2024 Fusion, joint FDA Start: [...] Assessment Result Facility 08-12-2024 Functional status Ambulates [facility] Work Phone: Mental Status Date Assessment Result Facility 12-09-2024 Cognitive function Awake;Alert [facility] Work Phone: 08-12-2024 Cognitive function Voice/Name [facility] Work Phone: 02-01-2022 Cognitive function Level Of Cons ciousness Awake;Alert;Appropriate;Follo ws Commands;Responds to vocal stimuli [facility] Work Phone: 10-24-2021 Cognitive function Voice/Name [facility] Work Phone: Clinical Notes 10-07-2022 to 06-10-2025 Shiva Lindo DDS - 06/10/2025 8:00 AM EDTDental Procedure Details - Shiva Lindo DDS - 06/10/2025 8:00 AM EDTDental Procedure Details - Shiva Hamiltone PARAG - 06/10/2025 8:00 AM EDT Note Date & Type Note Facility 06-10-2025 History of Presen t illness Narrative The provisional were removed and preps were refined. Gingiva margins were also adjusted. Temps were cleaned and re-cemented with Olympian. Next: New set of provisional. Procedure Details 6 D2740 - INITIAL PREPARATION & PROVISIONAL - CROWN - PORCELAIN/CERAMIC 7 D2740 - INITIAL PREPARATION & PROVISIONAL - CROWN - PORCELAIN/CERAMIC 8 D2740 - INITIAL PREPARATION & PROVISIONAL - CROWN - PORCELAIN/CERAMIC 9 D2740 - INITIAL PREPARATION & PROVISIONAL - CROWN - PORCELAIN/CERAMIC 10 D2740 - INITIAL PREPARATION & PROVISIONAL - CROWN - PORCELAIN/CERAMIC 11 D2740 - INITIAL PREPARATION & PROVISIONAL - CROWN - PORCELAIN/CERAMIC Was local anesthetic administered? Yes Name of medication: Lidocaine 2% with Epinephrine 1:100,000 Total amount administered: 3 carpule(s) documented in this encounter [facility] Work Phone: 06-10-2025 Miscellaneous Notes Formattin g of this note might be different from the original. Was local anesthetic administered? Yes Name of medication: Lidocaine 2% with Epinephrine 1:100,000 Total amount administered: 3 carpule(s) documented in this encounter [facility] Work Phone: 06-10-2025 senior cytogenetic technologist procedure note Was local anesthetic administered? Yes Name of medication: Lidocaine 2% with Epinephrine 1:100,000 Total amount administered: 3 carpule(s) [facility] Work Phone: 04-04-2025 History of Presen t illness Narrative Patient presents today for impressions, referred from [facility]. Treatment plan proposed in DFP: [...] POST-OPERATIVE OFFICE VISIT documented in this encounter [facility] Work Phone: 02-10-2025 Discharge summary Note Date/Time February 10, 2025 6:53p [facility] Medical Records Department [address] [place] [address] Emergency Department Summary 02/10/25 MR#: [id number] Acct: [id number] Name: BEBETO DEJESUS Rep #:[id number] : 1950 74 From: Torres Koroma MD PCP: Dr. Gamaliel Whitehead MD Status:REG E R Location: ED HPI HPI - Psych History of Present Illness Chief Complaint: Mental Health Informant: patient Onset/Context/Timing Onset: Today Current Severity: Moderate Maximum Severity: Severe Narrative Narrative: 74-year-old female history of diabetes hypothyroidism. Reportedly was in [employer] today. Had a mental breakdown and bank personnel called the police who arrived. Said the patient was irate. They believe this be due to mental healthissue and pink slipped and brought to the emergency department. Patient tells me that the [employer] computers have been hacked and that there charging her excessively from prior care. 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 Moving all 4 extremities. 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 Normal dorsi plantarflexion. Nontender no edema. [...] waiting room for centers of power of bankruptcy attorney and I believe is her daughter also. And they state this has happened before. She had a recent mental health hospitalization for 7 days and they did not feel it did her any good. They also have concerned that when she was placed on Effexor 6 months to a year ago it seemed like she got worse instead of better.Our psychosocial rehabilitation counselor and I have spoken with both definitely [...] 41.1 L Lymph % (Auto) 49.6 H Harvey % (Auto) 6.5 Eos % (Auto) 2.1 [...] tablet 200 mg PO BID thyroid (pork) [[place] Thyroid] 15 mg tablet 15 mg PO [...] tablet 400 mg PO DAILY thyroid (pork) [[place] Thyroid] 60 mg tablet 30 mg PO SUSA ipratropium-albuterol 0.5 mg-3 mg(2.5 mg base)/3 mL solution for nebulization 3 ml inhalation Q4H PRN PRN (Reason: SOB &/OR WHEEZING) Qty: 180 6RF Primary Care Provider: Gamaliel Whitehead Referrals: Gamaliel Whitehead MD [Primary Care Provider] - Print Language: Citizen Of [place] Disposition Disposition: Psychiatric Hospital or Unit What to do if you have Problems For any increased pain, shortness of breath, bleeding, nausea or vomiting, chestpain, or any unexpected problems, contact your Primary Care Provider. Call [facility] ([phone]) or report to the closest Emergency Room. Call 911 if necessary. 02/10/25 1853 <Electronically signed by Torres Koroma MD> Cosigner Signature (if applicable): CC: Dr. Gamaliel Whitehead MD ~ Signed [facility] Work Phone: 1(480) 935-599805-29-2025 Evaluation note* Diagnosis Onset Date Resolution Status Admit Date MGUS (monoclonal gammopathy of unknown significance) chronic January 06, 2025 2:53pm Asthma chronic January 18 1:35pm Obesity chronic January 18 1:35pm Sleep apnea chronic January 18 1:35pm [facility] Work Phone: 1(385) 929-677905-29-2025 Progress note Author Dontrell Torres [facility] Note Date/Time January 06, 2025 3:39p m [facility] [address] [address] OFFICE VISIT Date of Service: 01/06/25 1513 MR#: [id number] Acct: [id number] Name: BEBETO DEJESUS Rep #: [id number] : 1950 From: Dontrell Torres MD Age/Sex: 74/F [facility] [facility] Status: Signed HPI Subjective Date of Service 01/06/25 Chief Complaint F/u for MGUS. History of Present Illness 74-year-old woman was diagnosed with MGUS about 20 years ago. She has remained stable, currently on observation. Comes for follow up. 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 [facility] Intake Vital Signs 12/22/24 15:40 01/06/25 [...] capsule 300 mg PO BID #180 caps 05/04/0301/06/25 Rx sulfasalazine 500 mg 1 g (2 x 500 mg) PO BID 90 d ays 01/23/24 01/06/25 Rx tablet,delayed release #360 tabs venlafaxine 37.5 mg tablet 37.5 mg PO QHS 04/13/24 History pantoprazole 40 mg tablet,delayed 40 mg PO DAILY acid 05/17/24 01/06/25 History release thyroid (pork) 15 mg tablet 15 mg PO MOTUWETHFR thyroi d 05/17/24 01/06/25 History ([place] Thyroid) thyroid (pork) 60 mg tablet 30 mg PO SUSA 06/08/24 History ([place] Thyroid) vitamin E (dl, acetate) 180 mg [...] fallen in the past year?: No 01/06/25 5758 <Electronically signed by Dontrell Prah M D> Date _ Dontrell Torres MD Cosigner Signature: Date (if applicable) CC: Dr. Gamaliel Whitehead MD ~ [facility] Work Phone: 1(306) 686-311105-12-2025 Note. MICRO - Microbiology PROCEDURE: Culture Beta Strep Only [*1] SOURCE: Throat BODY SITE: COLLECTED DATE/TIME: 12/17/2024 21:15 EDT RECEIVED DATE/TIME: 12/18/2024 16:08 EDT START DATE/TIME: 12/18/2024 16:10 EDT FREE TEXT SOURCE: [id number] [facility] [id number] FINAL REPORTS Final Report [] Verified Date/Time/Personnel: 12/20/2024 07:10 EDT No Beta Strep isolated at 48hrs. PRELIMINARY REPORTS Preliminary Report [] Verified Date/Time/Personnel: 12/19/2024 13:39 EDT No beta Strep isolated at 24 hours. Performing Locations *1: This test was performed at: [facility], [address] [place] [address], [facility] , [facility]03-13-2025 Evaluation note* Diagnosis Onset Date Resolution Status Admit Date Diarrhea chronic October 21 1:05pm Dyspnea chronic October 21 1:05pm Fatty liver disease, nonalcoholic chronic October 21, 2024 1:05pm Obesity chronic October 21 1:05pm [facility] Work Phone: 1(994) 352-364403-13-2025 Evaluation note* Diagnosis Onset Date Resolution Status Admit Date Diarrhea chronic October 21 1:05pm Dyspnea chronic October 21 1:05pm Fatty liver disease, nonalcoholic chronic October 21, 2024 1:05pm Obesity chronic October 21 1:05pm MGUS (monoclonal gammopathy of unknown significance) chronic January 06, 2025 2:53pm [facility] Work Phone: [phone]) [phone] Evaluation note* Diagnosis Onset Date Resolution Status Admit Date Diarrhea chronic October 21 1:05pm Dyspnea chronic October 21 1:05pm Fatty liver disease, nonalcoholic chronic October 21, 2024 1:05pm Obesity chronic October 21 1:05pm MGUS (monoclonal gammopathy of unknown significance) chronic January 06, 2025 2:53pm Asthma chronic January 18 1:35pm Obesity chronic January 18 1:35pm Sleep apnea chronic January 18 1:35pm [facility] Work Phone: 1(296) 897-129101-02-2025 [facility]12-29-2024 Evaluation note* Diagnosis Onset Date Resolution Status Admit Date Closed left humeral fracture acute August 07, 2024 11:58pm Debility acute August 07, 2024 11:58pm Fall acute August 07, 2024 11:58pm Intractable pain acute August 07, 2024 11:58pm Leukocytosis acute July 11:58pm Nonalcoholic fatty liver disease acute August 07, 11:58pm Obesity (BMI 30-39.9) acute Jul 11:58pm S/P foot surgery, left acute De cem2023 11:58pm Severe anxiety acute July 122023 11:58pm Hypokalemia chronic July 11:58pm Sleep apnea chronic July 11:58pm Diarrhea chronic October 21 1:05pm Dyspnea chronic October 21 1:05pm Fatty liver disease, nonalcoholic chronic October 21, 2024 1:05pm Obesity chronic October 21 1:05pm [facility] Work Phone: 1(456) 937-458111-04-2024 [facility]07-23-2024 History of Present illness Narrative* Roger Bustamante MD - 03/02/2024 3:10 PM EDT [facility] Initial Evaluation RE: Bebeto Dejesus : 1950 Outpatient Primary Provider: Yoanna Hull Referring Provider: Self Self No address on file Bebeto Dejesus is a 73 y.o. right-handed female with an unclear history of remote brain tumor, CPAP, hypothyroidism, adrenal insufficiency, rheumatoid arthritis, MGUS who presents today to the [facility] because [...] by mouth at bedtime. Ergocalciferol 1.25 MG (76286 UT) capsule, Take 1 capsule by mouth [...] and vibration. Proprioception intact. ? Coordination ??? Ssixlm-aynx-qjcsxm, rwzs-fk-azaj Intact without dysmetria, normal mirroring without past-pointing, [...] IRON, FERRITIN No results found for: TSH, QRD35AYY, ORZ88BKS, TSHBASELINE, TSHULTRASEN, T3FREE, O1BQXKQVU, C3KGXXY, V8HJAXJC, T4FREE, TPOAB No results found for: CHOLESTEROL, TRIG, HDL, LDLCALC, LDLDIRECT No results found for: B12, FOLATERBC, FOLATE, 876067, HOMOCYSTEINE No results found for: RPR, [id number], CAIO, ESR, CRP Neuroimaging: MRI Brain 2018 [...] arthritis, MGUS who presents today to the [facility] because [...] Discussed Advanced Care Planning Healthcare power of bankruptcy attorney in place: yes- son, Agusto Please send us a copy of your healthcare power of bankruptcy attorney documents. This can be faxed to or mailed to [facility] [address] [place] [address]. Financial power of bankruptcy attorney in place: yes- daughter Living will in place: yes Primary caregiver: self As we discussed, we have a psychosocial rehabilitation counselor available if additional resource needs develop. Control [...] 03/02/2024 [facility] The above impression was discussed at length with the patient and family and their questions were answered. We discussed diagnosis, prognosis and course, treatment and management options. I have discussed today the risks and benefits of all his psychopharmacological medications with the patient, family or legally authorized business development representative including, but not limited to, any black box warnings. Patient and family verbalized understanding and agreement with plan. [id number] She has had no decline since the [...] minutes. This time consisted of time spent [id number] evaluation of the patient, discussing plan of [...] with the patient, family and/or legally authorized business development representative including, but not limited to, any [...] the patient and/or family or legally authorized business development representative and all questions answered. A copy of the care plan below was provided on their After Visit Summary. [facility] Instructions* Patient Instructions* Roger Bustamante MD - [...] Discussed Advanced Care Planning Healthcare power of bankruptcy attorney in place: yes- son, Agusto Please send us a copy of your healthcare power of bankruptcy attorney documents. This can be faxed to or mailed to [facility] [address] [place] [address]. Financial power of bankruptcy attorney in place: yes- daughter Living will in place: yes Primary caregiver: self As we discussed, we have a psychosocial rehabilitation counselor available if additional resource needs develop. Control [...] or concerns between appointments: [facility] History of Present illness Narrative* Roger Bustamante MD - 02/03/2024 1:10 PM EDT [facility] Initial Evaluation RE: Bebeto Dejesus : 1950 Outpatient Primary Provider: Yoanna Hull Referring Provider: Angélica Ingram MD [address] [place] [address] Bebeto Dejesus is a 73 y.o. right-handed female with an unclear history of remote brain tumor, CPAP, hypothyroidism, adrenal insufficiency, rheumatoid arthritis, MGUS who presents today to the [facility] because [...] started taking care of her aunt in [place] and traveling back and forth for about [...] medicine - reports compliance with CPAP Functional [place]: Lives alone 02/03/2024 3:00 PM Cognitive Symptoms [...] by mouth at bedtime. Ergocalciferol 1.25 MG (42998 UT) capsule, Take 1 capsule by mouth [...] in for 10 minutes before 11:00 using Bday but was able to do this correctly [...] and vibration. Proprioception intact. ? Coordination ??? Wyakey-acqt-xhpbnl, uxgy-dm-oxap Intact without dysmetria, normal mirroring without past-pointing, [...] IRON, FERRITIN No results found for: TSH, IBN49XPS, XBV11ETN, TSHBASELINE, TSHULTRASEN, T3FREE, W9BPMPLDJ, L8MVKNU, I2NVKKDN, T4FREE, TPOAB No results found for: CHOLESTEROL, TRIG, HDL, LDLCALC, LDLDIRECT No results found for: B12, FOLATERBC, FOLATE, 035305, HOMOCYSTEINE No results found for: RPR, [id number], CAIO, ESR, CRP Neuroimaging: None Neuropsychological Evaluation [...] arthritis, MGUS who presents today to the [facility] because [...] Discussed Advanced Care Planning Healthcare power of bankruptcy attorney in place: yes- Agusto jurado Please send us a copy of your healthcare power of bankruptcy attorney documents. This can be faxed to or mailed to [facility] [address] [place] [phone]. Financial power of bankruptcy attorney in place: yes- daughter Living will in place: yes Primary caregiver: self As we discussed, we have a psychosocial rehabilitation counselor available if additional resource needs develop. Control [...] 02/03/2024 [facility] The above impression was discussed at length with the patient and family and their questions were answered. We discussed diagnosis, prognosis and course, treatment and management options. I have discussed today the risks and benefits of all his psychopharmacological medications with the patient, family or legally authorized business development representative including, but not limited to, any black box warnings. Patient and family verbalized understanding and agreement with plan. 60 minutes was spent on jiid-zx-rope visit with the patient/family including counseling and care coordination, as well as on chart review and documentation. Additionally, 37 minutes [id number] as described above. documented in this encounter[facility] Instructions* Patient Instructions* Roger Bustamante MD - 02/03/2024 1:10 PM EDT Please get MRI Brain done documented in this encounterOS[facility]06-12-2024 History of Present illness Narrative* Angélica Ingram MD - 01/21/2024 11:00 AM EDT Images from the original note were not included. Pt is here for follow up of sleep Mild MARCELLA- AHI 10 based on study in 2011 at [facility]- pt has resmed airsense 10 autoset 5-20. Notconnected so not able to get a download DME: [employer] (was [employer] in [place]) Mask: full face-dreamwear full Pt has also [...] says she has the same bottle from 2006. has not taken it in 10 yrs [...] will try to get extra headgear from [employer]. 2. Hypersomnia- can have issues with drowsy driving if driving long distances. Will order [id number] to use as needed for driving. This is likely in part due to insufficient sleep. 3. Insufficient sleep- pt can only sleep 6 hours due to chronic pain- she takes medication and getsinjections for this. Follow-up one year. Pt is being followed chronically for MARCELLA on CPAP. * Shima Raines MA - 01/21/2024 11:00 AM EDT This Counter Installer verified the patients name and date of . documented in this [facility]Pro[facility]24 Instructions* Patient Instructions* Angélica Ingram MD - [...] on your finger.Please do not wear nail zimbabwean on day of the study as it will interfere with the oxygen reading probe that s placed on your finger during the study. The office will make an appointment for you to go to our sleep office at [facility] on [facility] to receive and be shown how to [...] corrected by your sleep provider. Contact Information: [facility] Sleep Laboratory: [phone] [facility] heart Clinic: [phone] [facility] Sleep Clinic: [phone] Please bring your CPAP equipment and smart [...] and exercise program that can be maintained fpc. The [facility] does have a Living Well Program to help patients achieve their weight loss goals in a healthy and safe manor. This consists of a 6 month program that focuses on weight loss, nutrition, stress management and exercise. Location [facility] Center for Wellness and Prevention First floor of the [place] [address] For more information please call [phone]. 3. Dental devices that hold the lower [...] reducing or eliminating sleep apnea. Additional Information [place] [employer] (www.aasmnet.org) National Sleep Foundation (www.sleepfoundation.org) [place] Sleep Apnea Association (www.sleepapnea.org) National Heart, Lung, and Blood Cisco (www.nhlbi.nih.gov) UptoDate (www.uptodate.com/patients) Drowsy Driving Tips These suggestions will help prevent you from the risk of drowsy driving. 1. If you feel tired or drowsy do not drive. Sleepiness is a major cause of motor vehicle accidentsand accounts for 40% of all fatal crashes reported on the [facility]. No matter how much you think you [...] hours of driving. 8. Drive with a digital sales manager. Share the driving. Relax in the back seat until it is your time to sharethe driving again. documented in this encounterProtestant [facility]acon[facility]04-18-2024 Discharge summary Author Cortez Leong [facility] November 27, 2023 3:23pm Note Date/Time November 27, 2023 1:5 6pm [facility] Medical Records Department [address] [place] [address] Emergency Department Summary 11/27/23 MR#: [id number] Acct: [id number] Name: BEBETO DEJESUS Rep #:[id number] : 1950 72 From: Cortez Chavarria PCP: Dr. Yoanna Hull MD Status:R EG ER Location: ED HPI History of Present Illness Chief Complaint: Fall Informant: patient and family Narrative Narrative: 72-year-old female presenting to the emergency room with chest pain. Patient states she fell 2 nights ago striking her chest. She states she was seen at [facility] diagnosed with a broken finger and placed in a splint. She states she had rib x- rays was concerned about the reading that she saw online. She states it said that she had atelectasis and something else and that no doctors will tell her what it means. She states that she hates [facility]. Her primary care doctor is [facility]. She states she was post to see [...] it does shoes. Patient has taken a [place] each of the past 2 nights that she gets from pain management for vacations. She has not taken any today. 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 ER ROS ROS ED Constitutional Constitutional ED: [...] 44.9 L Lymph % (Auto) 45.5 H Harvey % (Auto) 6.3 Eos % (Auto) 2.5 [...] tablet 500 mg PO DAILY thyroid (pork) [[place] Thyroid] 15 mg tablet 15 mg PO [...] DAILY Qty: 90 1RF Primary Care Provider: Yoanna Hull Referrals: Yoanna Hull MD [Primary Care Provider] - 1 Week Disposition Disposition: Home, Self Care What to do if you have Problems For any increased pain, shortness of breath, bleeding, nausea or vomiting, chestpain, or any unexpected problems, contact your Primary Care Provider. Call [facility] ([phone]) or report to the closest Emergency Room. Call 911 if necessary. 11/27/23 0253 <Electronically signed by Cortez Leong DO> Cosigner Signature (if applicable): CC: Dr. Yoanna Hull MD ~ Signed 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 Sincerely, Xena Linder, PhD, ABPP Clinical Neuropsychologist CPT code: 18597 (additional unit) Time to complete visit and documentation: 1:50pm to 2:50pm ICD-10 Code: R41.3 Memory loss documented in this encounterProtestant Deaconess Hospital03-11-2024 History of Present illness Narrative* Yoamira Sarabjit - 10/20/2023 12:30 PM EDT I administered [...] acetaminophen, cyclobenzaprine, hydroxychloroquine, methotrexate, prednisone, Ozempic, sulfasalazine, [place] Thyroid, triamcinolone, ursodiol, celecoxib, pantoprazole, amiloride-hydrochlorothiazide, fluticasone, [...] despite resolution of the lawsuit. 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 She has scorched foods [...] Scale-IV (selected subtests), Suresh Continuous Performance Test-3, [place] Making Test, [place] Card Sorting Test- 64, Louis Auditory Verbal Learning Test, Veronika Memory Test-IV (selected subtest), Brief Visuospatial Memory Test-Revised, Prospective and Retrospective Memory Questionnaire, [place] Naming Test, Controlled Oral Word Association Test, [place] Complex Figure Test (copy trialonly), Ch[place]la Depression Inventory-2, [place] Anxiety Inventory, [place] Multiphasic Personality Inventory-3, Frontal Systems Behavior Rating Inventory (family report), History Form*, Clinical Interviews* (*=PhD administered, =computer administered; all remaining tests administered by chemical waste management technician) BEHAVIORAL OBSERVATIONS: The patient arrived 1.5 [...] performances were variable but generally within expectation. [place] verbal learning was average (Trials 1-5 = [...] any questions. Sincerely, Xena Linder, PhD, ABPP Needle Setter, Clinical Board Certified in Clinical Neuropsychology CPT Code Description Minutes Billed 95734/17529 Neurobehavioral status exam 50 76554/11112 Neuropsychological test administration and scoring, by chemical waste management technician 251 22101/15525 Neuropsychologist integration 177 ICD-10 Code: R41.3 Memory loss documented in this encounterProtestant Deaconess Hospital02-14-2024 History of Present illness Narrative* Angélica Ingram MD - 09/24/2023 10:30 AM EST Pt is here for follow up of sleep Mild MARCELLA- AHI 10 based on study in 2011 at [facility] Sleep- pt has resmed airsense 10 autoset [...] data reviewed:No- we do not have access [place] and FOSQ have been reviewed. C/w sleepiness [...] testing october 2023 for memory loss Bebeto Dejesus will follow up in 3 months to ensure memory testing done and pt is established with neurology. documented in this encounterOS[facility] History of Present illness Narrative* Angélica Ingram MD - 09/24/2023 10:30 AM EST Pt is here for follow up of sleep Mild MARCELLA- AHI 10 based on study in 2012 at [facility] Sleep- pt has resmed airsense 10 autoset 5-20. DME: [employer] in [place] Mask: full face-dreamwear full Pt has also [...] data reviewed:No- we do not have access [place] and FOSQ have been reviewed. C/w sleepiness [...] testing october 2023 for memory loss Bebeto Dejesus will follow up in 3 months [...] Continue current settings documented in this encounterOSU [facility]05-25-[address] [facility] [address] [facility]05-23-2023 Procedure noteWWVUMedicine [facility] 10-08-2022 Miscellaneous Notes* Telephone Encounter - Shawnee Trotter - 10/08/2022 5:11 PM EST Spoke with the patient and scheduled her an appointment for Sleep Apnea. Medical records were sent to scanning. Mailed the patient an appointment reminder and a HammerKithart information. documented in this encounterC[facility]-27-[facility]23 Miscellaneous Notes* Telephone Encounter - Stuart Blair MA - 10/07/2022 4:09 PM EST Received fax referral from [facility] ([facility] [place]Rekha Dorman CNP for sleep medicine. DX: Primary central sleep apnea (G47.31) Comment: sleep apnea, concern for narcolepsy. Will forward to Amy. Stuart Blair MA documented in this encounterCleveland Clinic [facility] HospitalEvaluation note* Diagnosis Onset Date Resolution Status Methotrexate, intermediate card tender, current use acute Asthma chronic BMI greater than 40 chronic CSA (central sleep apnea) ch ronic History of colon polyps acut e Roman esophagus chronic Abnormal laboratory test acu te Anxiety and depression chron ic Constipation chronic Obesity chronic Strain of knee and leg, right acute MGUS (monoclonal gammopathy of unknown significance) chronic [facility] Work Phone: Evaluation note* Diagnosis Onset Date Resolution Status History of colon polyps acut e Roman esophagus chronic Abnormal laboratory test acu te Anxiety and depression chron ic Constipation chronic Obesity chronic Strain of knee and leg, right acute MGUS (monoclonal gammopathy of unknown significance) chronic GERD (gastroesophageal reflux disease) acute BMI greater than 40 [facility] Work Phone: Evaluation note* Diagnosis Onset Date [...] CSA (central sleep apnea) ch ronic Obesity [facility] Work Phone: Evaluation note* Diagnosis Onset Date Resolution Status GERD (gastroesophageal reflux disease) acute Asthma chronic CSA (central sleep apnea) ch ronic Obesity chronic Fatty liver disease, nonalcoholic acute Anxiety and depression chron ic Essential (primary) hypertension chronic Obesity chronic Fatty liver disease, nonalcoholic acute GERD (gastroesophageal reflux disease) acute Obesity [facility] Work Phone: Evaluation note* Diagnosis Onset Date Resolution Status GERD (gastroesophageal reflux disease) acute Asthma chronic CSA (central sleep apnea) ch ronic Obesity chronic Fatty liver disease, nonalcoholic acute Anxiety and depression chron ic Essential (primary) hypertension chronic Obesity chronic Fatty liver disease, nonalcoholic acute GERD (gastroesophageal reflux disease) acute Obesity chronic Anemia acute Malaise and fatigue acute Hypokalemia [facility] Work Phone: Evaluation note* Diagnosis Onset Date Resolution Status Asthma chronic CSA (central sleep apnea) ch ronic Obesity chronic Fatty liver disease, nonalcoholic acute Anxiety and depression chron ic Essential (primary) hypertension chronic Obesity chronic Fatty liver disease, nonalcoholic acute GERD (gastroesophageal reflux disease) acute Obesity chronic Anemia acute Malaise and fatigue acute Hypokalemia chronic Anemia acute Fatty liver disease, nonalcoholic acute [facility] Work Phone: Evaluation note* Diagnosis Onset Date [...] chronic GERD (gastroesophageal reflux disease) chronic Obesity [facility] Work Phone: Evaluation note* Diagnosis Onset Date Resolution Status Anemia acute Malaise and fatigue acute Hypokalemia chronic Anemia acute Fatty liver disease, nonalcoholic chronic Adrenal insufficiency chroni c Anxiety and depression chron ic Borderline type 2 diabetes mellitus chronic GERD (gastroesophageal reflux disease) chronic Obesity chronic Diarrhea chronic Fatty liver disease, nonalcoholic chronic Obesity [facility] Work Phone: Evaluation note* Diagnosis Onset Date Resolution Status Anemia acute Fatty liver disease, nonalcoholic chronic Adrenal insufficiency chroni c Anxiety and depression chron ic Borderline type 2 diabetes mellitus chronic GERD (gastroesophageal reflux disease) chronic Obesity chronic Diarrhea chronic Fatty liver disease, nonalcoholic chronic Obesity [facility] Work Phone: Evaluation note* Diagnosis Onset Date Resolution Status Diarrhea chronic Fatty liver disease, nonalcoholic chronic Obesity chronic Methotrexate, fpc, current use acute Asthma chronic CSA (central sleep apnea) ch ronic Fatty liver disease, nonalcoholic chronic Breast cancer screening acut e Borderline type 2 diabetes mellitus chronic Dyspnea chronic Essential (primary) hypertension [facility] Work Phone: Evaluation note* Diagnosis Onset Date Resolution Status MGUS (monoclonal gammopathy of unknown significance) chronic Borderline type 2 diabetes mellitus chronic Essential (primary) hypertension chronic GERD (gastroesophageal reflux disease) chronic Obesity chronic Diarrhea chronic Fatty liver disease, nonalcoholic chronic Obesity [facility] Work Phone: Evaluation note* Diagnosis Onset Date Resolution Status Sjogren's disease acute Asthma chronic CSA (central sleep apnea) ch ronic Obesity chronic Contusion of rib on right side acute Right rib fracture acute Dermatitis acute Muscular abdominal pain in right flank acute Borderline type 2 diabetes mellitus chronic Essential (primary) hypertension [facility] Work Phone: Evaluation note* Diagnosis Onset Date Resolution Status Diarrhea chronic Dyspnea chronic Fatty liver disease, nonalcoholic chronic Obesity chronic Flu vaccine need acute Anxiety and depression chron ic Essential (primary) hypertension chronic Hypokalemia chronic Obesity [facility] Work Phone: Evaluation note* Diagnosis Onset Date Resolution Status Diarrhea chronic Dyspnea chronic Fatty liver disease, nonalcoholic chronic Obesity chronic Flu vaccine need acute Anxiety and depression chron ic Essential (primary) hypertension chronic Hypokalemia chronic Obesity chronic Methotrexate, intermediate card tender, current use acute Asthma chronic CSA (central sleep apnea) [facility] Work Phone: Evaluation note* Diagnosis MARCELLA (obstructive sleep apnea)- Primary Obstructive sleep apnea (adult) (pediatric) [facility] Diagnosis MARCELLA (obstructive sleep apnea)- Primary Obstructive sleep apnea (adult) (pediatric) documented [facility] this encounter [facility]* Diagnosis Onset Date Resolution Status Methotrexate, intermediate card tender, current use acute Asthma chronic CSA (central sleep apnea) [facility] acut e Anxiety and depression chron ic Chronic back pain chronic Essential (primary) hypertension chronic Unsteady gait [facility] Work Phone: Evaluation note* Diagnosis Memory loss- Primary documented in this encounter [facility]* Diagnosis Memory loss- Primary documented [facility] this encounter [facility] Diagnosis Onset Date Resolution Status Health [...] acute Strain of right middle finger acute [facility] Work Phone: Evaluation note* Diagnosis MARCELLA (obstructive sleep apnea)- Primary Obstructive sleep apnea (adult) (pediatric) Hypersomnia Hypersomnia, unspecified documented in this encounter [facility] Diagnosis Loss of memory- Primary Memory loss [facility] encounter [facility] Diagnosis Loss of memory Memory loss [facility] this encounter [facility] Diagnosis Loss of memory- Primary Memory loss documented [facility] this encounter [facility] Diagnosis Full adventism of crown of tooth needed due to previous large adventism procedure- Primary documented in this encounter [facility] Work Phone: Evaluation note* Diagnosis Need for full coverage dental crown- Primary documented in this encounter [facility] Work Phone: Reason for referral (narrative)No reason for referral information availableWWVUMedicine [facility] Work Phone: Chief Complaint and Reason for Visit Chief Complaint 6 M FU DISCUSS ORDERING [facility] S/O DR STEVENS/Leah ORDERS DR [...] significance) Chief Complaint DISCUSS ORDERING COL [facility]OSCOPY-[facility] S/O DR STEVENS/Leah ORDERS DR [...] 40 Chief Complaint DISCUSS ORDERING COL [facility] S/O DR STEVENS/Leah ORDERS DR [...] Diarrhea Fatty liver disease, nonalcoholic Obesity Methotrexate, fpc, current use Asthma CSA (central sleep apnea) [...] M FU 3 MO FU [facility] NURSE DRUG THERAPY USP DRUG THERAPY RADIOLOGY NURSE DRUG THERAPY RADIOLOGY NURSE DRUG THERAPY Reason for Visit MGUS (monoclonal azam mopathy of unknown significance) Borderline type 2 diabetes mellitus Essential (primary) hypertension GERD (gastroesophageal reflux disease) Obesity Diarrhea Fatty liver disease, nonalcoholic Obesity Chief Complaint 1YR LABS PRIOR 3 M FU 3 MO FU [facility] NURSE DRUG THERAPY USP DRUG THERAPY USP DRUG THERAPY RADIOLOGY NURSE DRUG THERAPY Reason for Visit MGUS (monoclonal azam mopathy of unknown significance) Borderline type 2 diabetes mellitus Essential (primary) hypertension GERD (gastroesophageal reflux disease) Obesity Diarrhea Fatty liver disease, nonalcoholic Obesity Chief Complaint USP DRUG THERA PY RADIOLOGY NURSE DRUG THERAPY RADIOLOGY NURSE DRUG THERAPY USP DRUG THERAPY 6 M FU RIGHT SIDE/RIB [...] depression Essential (primary) hypertension Hypokalemia Obesity Methotrexate, fpc, current use Asthma CSA (central sleep apnea) [...] fall fall Reason for Visit Health care maintena nce Anxiety and depression Chronic back pain [...] 8:33pm mental health February 10, 2025 2:35p johana BIRD March 10, 2025 4:40 pm Family History [...] Yes October 19, 2021 2:07pm Power of Appliance Service Supervisor Yes October 19 2:07pm Advance Directive Response Recorded Date/ Time Name of Medical Power of Appliance Service Supervisor AGUSTO October 19, 2021 2:07pm Advance Directives Yes March 03 9:55am Living Will No February 01, 2022 4:03pm Power of Appliance Service Supervisor No February 01 4:03pm Advance Directive Response Recorded Date/ Time Advance Directives Yes March 03 9:55am Living Will No February 01, 2022 4:03pm Power of Appliance Service Supervisor No February 01 4:03pm Advance Directive Response Recorded Date/ Time Advance Directives Yes March 03 8:55am Living Will No February 01, 2022 3:03pm Power of Appliance Service Supervisor No February 01 3:03pm Advance Directive Response Recorded Date/ Time Advance Directives Yes December 13, 2019 1:42pm Living Will No February 01, 2022 4:03pm Power of Appliance Service Supervisor No February 01 4:03pm Advance Directive Response Recorded Date/ Time Advance Directives Yes December 13, 2019 12:42pm Living Will No February 01, 2022 3:03pm Power of Appliance Service Supervisor No February 01 3:03pm Advance Directive Response Recorded Date/ Time Advance Directives Yes December 13, 2019 1:42pm Living Will No November 27, 2023 11:24am Power of Appliance Service Supervisor No November 26 11:24am Advance Directive Response Recorded Date/ Time Living Will Yes April 13 1:17pm Do you have a Healthcare Power of Appliance Service Supervisor? Yes April 13, 2024 1:17pm Living Will No August 08 3:20am Do you have a Healthcare Power of Appliance Service Supervisor? No August 08, 2024 3:20am Advance Directives Yes December 13, 2019 1:42pm Advance Directive Response Recorded Date/ Time Living Will Yes April 13 1:17pm Do you have a Healthcare Power of Appliance Service Supervisor? Yes April 13, 2024 1:17pm Do you have a Healthcare Power of Appliance Service Supervisor? Yes December 09, 2024 6:09pm Advance Directives Yes December 13, 2019 1:42pm Advance Directive Response Recorded Date/ Time Living Will Yes April 13 1:17pm Do you have a Healthcare Power of Appliance Service Supervisor? Yes April 13, 2024 1:17pm Do you have a Healthcare Power of Appliance Service Supervisor? Yes December 09, 2024 6:09pm Do you have a Healthcare Power of Appliance Service Supervisor? Yes February 10, 2025 4:29pm Advance Directives Yes December 13, 2019 1:42pm Advance Directive Response Recorded Date/ Time Do you have a Healthcare Power of Appliance Service Supervisor? Yes December 09, 2024 6:09pm Do you have a Healthcare Power of Appliance Service Supervisor? Yes February 10, 2025 4:29pm Advance Directives Yes December 13, 2019 1:42pm Summary Purpose Reason for Referral Specialty Diagnoses / Procedures Referred By Rosibel barbour Referred To Contact Diagnoses MARCELLA (obstructive sleep apnea) Procedures CPAP / BPAP SETUP FOR HOME Angélica Ingram MD [address] [place] [address] Referral ID Status Reason Start Date Expiration Date Visits Re quested Visits Authorized [id number] Open 09/24/2023 10/18/2024 1 1 Specialty Diagnoses / Procedures Referred By Rosibel barbour Referred To Contact Diagnoses Loss of memory Procedures MRI BRAIN WITHOUT CONTRAST CHG MRI BRAIN BRAIN STEM W/O CONTRAST MATERIAL Roger Bustamante MD [address] [place] [address] Referral ID Status Reason Start Date Expiration Date V isits Requested Visits Authorized [id number] New Request 02/03/2024 02/27/2025 1 1 Additional [...] Status: Active Member Role Status Dates Dr. Yoanna Hull MD Family Provider Active Dr. Yoanna Hull MD Primary Care Provider Active Team Status: Inactive Member Role Status Dates Dr. Yoanna Hull MD Primary Care Provider, Refer ring Provider Active Dr. Vahe Nobles DO Attending Provider Active Team Status: Inactive Member Role Status Dates Dr. Yoanna Hull MD Primary Care Provider, Refer ring Provider Active Dr. Kvng Nunez MD Attending Provider Active Team Status: Inactive Member Role Status Dates Dr. Yoanna Hull MD Primary Care P rovider, Attending Provider, Referring Provider Active Team Status: Inactive Member Role Status Dates Dr. Yoanna Hull MD Primary Care Provider Active Dr. Neema Kaba MD Attending Provider, Re ferring Provider Active Team Status: Inactive Member Role Status Dates Dr. Yoanna Hull MD Primary Care Provider Active Dr. Vahe Nobles DO Attending Provider Active Team Status: Inactive Member Role Status Dates Dr. Yonana Hull MD Primary Care Provider Active Dr. Marycarmen Stevens MD Attending Provider Active Team Status: Inactive Member Role Status Dates Dr. Yoanna Hull MD Primary Care Provider, Atten ding Provider Active Team Status: Inactive Member Role Status Dates Dr. Yoanna Hull MD Primary Care Provider, Refer ring Provider Active Dr. Dontrell Torres MD Attending Provider Active Team Status: Inactive Member Role Status Dates Dr. Yoanna Hull MD Primary Care Provider Active Dr. Marycarmen Stevens MD Attending Provider, Referring Provider Active Team Status: Inactive Member Role Status Dates Dr. Yoanna Hull MD Primary Care Provider Active Dr. Dontrell Torres MD Attending Provider, Referring Pro vider Active Team Status: Inactive Member Role Status Dates Dr. Yoanna Hull MD Primary Care Provider Active Dr. Vahe Nobles DO Attending Provider, Referring Provider Active Team Status: Active Member Role Status Dates Dr. Yoanna Hull MD Primary Care Provider Active Dr. Kvng Nunez MD Attending Provider , Referring Provider, Other Provider Active Team Status: Inactive Member Role Status Dates Dr. Yoanna Hull MD Primary Care Provider Active Dr. Kvng Nunez MD Attending Provider, Referring Pr ovider Active Team Status: Active Member Role Status Dates Dr. Yoanna Hull MD Primary Care Provider Active Dr. Kvng Nunez MD Attending Provider, Referring Pr ovider Active Team Status: Inactive Member Role Status Dates Dr. Yoanna Hull MD Primary Care Provider, Refer ring Provider Active Rekha Dorman EMPLOYMENT CLERK, EMPLOYMENT CLERK-C Attending Provider Active Team Status: Inactive Member Role Status Dates Dr. Yoanna Hull MD Primary Care Provider, Refer ring Provider Active Jayme Brennan PA, PA Attending Provider Active Team Status: Inactive Member Role Status Dates Dr. Yoanna Hull MD Primary Care Provider Active Dr. Orlando Stein MD Attending Provider Active Team Status: Inactive Member Role Status Dates Dr. Yoanna Hull MD Primary Care Provider Active Dr. Scarlett Mancilla MD Attending Provider, Referring Pr ovider Active General Farmworker Relationship Specialty Start Date End Date Yoanna Hull MD [address] [phone] PCP - General Internal Medicine 10/20/23 General Farmworker Relationship Specialty Start Date End Date Yoanna Hull MD [address] [phone] PCP - General Internal Medicine 10/20/23 Team Status: Inactive Member Role Status Dates Dr. Yoanna Hull MD Primary Care Provider, Refer ring Provider Active Artemio BORDEN PA Attending Provider Active Team Status: Active Member Role Status Dates Dr. Dontrell Torres MD Attending Provider Active Dr. Yoanna Hull MD Primary Care Provider, Famil y Provider Active DEFINED NOT Referring Provider Active Team Status: Active Member Role Status Dates Dr. Yoanna Hull MD Primary Care Provider Active SUHA Bains Attending Provider, Referring Pr ovider Active Team Status: Inactive Member Role Status Dates Dr. Yoanna Hull MD Primary Care Provider Active Dr. Cortez Leong DO Emergency Provider Active Team Status: Inactive Member Role Status Dates Dr. Yoanna Hull MD Primary Care Provider Active SUHA Bains Attending Provider, Referring Pr ovider Active Team Status: Inactive Member Role Status Dates Dr. Yoanna Hull MD Primary Care Provider Active Dr. Cortez Leong DO Attending Provider, Emergency P mandeep Active General Farmworker Relationship Specialty Start Date End Date Yoanna Hull MD [address] [facility] [address] [place] [phone] PCP - General Internal Medicine 10/20/23 General Farmworker Relationship Specialty Start Date End Date Yoanna Hull MD [address] [facility] [address] [place] [phone] PCP - General Internal Medicine 10/20/23 General Farmworker Relationship Specialty Start Date End Date Yoanna Hull MD [address] [facility] [address] [place] [phone] PCP - General Internal Medicine 10/20/23 General Farmworker Relationship Specialty Start Date End Date Gabe Linn MD [address] [place] [address] [address] [place] [phone] PCP - General Internal Medicine 03/02/24 Team [...] Active Start: August 08, 2024 Dr. Alexandra de Jesus , DO Admit Provider Active Start: August 08, [...] 2024 End: December 22, 2024 Dr. Neema Kaab MD Attending Provider Act catherine Start: December [...] Status: Inactive Member Role/Relationship Status Dates Dr. 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 Start Date End Date Gabe Linn MD PCP - General Internal Medicine 03/02/24 Shiva Lindo DDS Dentist Prosthodontics 03/09/25 Soha Yarbrough DDS Charge Hand Prosthodontics 03/09/25 Source Comments (unrecognize d section and content) In the event this informatio n is protected by the Federal Confidentiality of Alcohol and Drug Abuse Patient Records regulations: The Federal rules restrict any use of the information to criminally investigate or prosecute any alcohol or drug abuse patient.[facility] the event this information is protected by the Federal Confidentiality of Alcohol and Drug Abuse Patient Records regulations: The Federal rules restrict any use of the information to criminally investigate or prosecute any alcohol or drug abuse patient.[facility] the event this information is protected by the Federal Confidentiality of Alcohol and Drug Abuse Patient Records regulations: The Federal rules restrict any use of the information to criminally investigate or prosecute any alcohol or drug abuse patient.[facility] Reason for Visit (unrecogniz ed section and content) Reason Comments Received Outside Medical Records Referra l for [facility] from [facility] [place] Pulmonary Medicine [facility] Reason Comments Referral Request Reason Comments Follow-up Reason Comments Refill Request Reason Comments Neuropsychological Testing Specialty Diagnoses / Procedures Referred By Contac Referred To Contact Psychiatry Diagnoses Cognitive impairment Angélica Ingram MD [address] [place] [address] Referral ID Status Reason Start Date Expiration Date V isits Requested Visits Authorized [id number] New Request 05/28/2023 06/21/2024 1 1 Reason Comments Follow-up Reason Comments Follow-up [address] up [address] sleep study Reason Comments New Patient Specialty Diagnoses / Procedures Referred By Contac t Referred To Contact Neurology Diagnoses Cognitive impairment Angélica Ingram MD [address] [place] [address] Referral ID Status Reason Start Date Expiration Date V isits Requested Visits Authorized [id number] New Request 05/28/2023 06/21/2024 1 1 Specialty Diagnoses / Procedures Referred By Contac t Referred To Contact Diagnoses Loss of memory Procedures MRI BRAIN WITHOUT CONTRAST CHG MRI BRAIN BRAIN STEM W/O CONTRAST MATERIAL Roger Bustamante MD [address] [place] [address] Referral ID Status Reason Start Date Expiration Date V isits Requested Visits Authorized [id number] New Request 02/03/2024 02/27/2025 1 1 Reason Comments Procedure INFORMATION SOURCE (unrecogn ized section and content) DATE CREATED AUTHOR 11/22/2022 [facility] DATE CREATED AUTHOR AUTHOR'S ORGANIZ ATION 03/05/2024 [facility] DATE CREATED AUTHOR AUTHOR'S ORGANIZ ATION 12/20/2024 [facility] DATE CREATED AUTHOR AUTHOR'S ORGANIZ ATION 12/22/2024 [facility] DATE CREATED AUTHOR AUTHOR'S ORGANIZ ATION 06/13/2025 [facility] FOR RECORDS PERTAINING TO PATIENTS WHO ARE [...] BE BASED ON THE PRIMARY CLINICAL RECORDS. [employer] provides no warranty or guarantee of the accuracy or completeness of information in this document.
== END | disposition home or self-care (01) ==
LOC: LAB.FUTURE 08:55
PROVIDERS: PCP Family Medicine; Referring Provider Internal Medicine Rheumatology; Visit Provider Internal Medicine Rheumatology
DX: M06.4 Inflammatory polyarthropathy (principal); Z79.899 Other long term (current) drug therapy; M79.7 Fibromyalgia; M17.0 Bilateral primary osteoarthritis of knee; M16.0 Bilateral primary osteoarthritis of hip

== ENCOUNTER → 2025-07-26 | Outpatient (CLI) | payer MEDICARE, OTHER, SELFPAY ==
[2025-07-26 15:47] LABS: Creatinine, Urine (random) 69.00 mg/dL (28.00-217.00); Microalbumin,Random Urine 23.9 mg/L (<20 mg/L)
[2025-07-26 16:04] LABS: AST(SGOT) 25 U/L (<=31); Alanine Aminotransfer ALT/SGPT 20 U/L (<=34); Albumin, Serum 4.3 g/dL (3.4-4.8); Alkaline Phosphatase 84 U/L (35-104); Anion Gap 13 (5-15); BUN 24 mg/dL (4-19); BUN/Creat Ratio 37.6 RATIO (10-20); Calcium,Total 9.3 mg/dL (7.6-11.0); Carbon Dioxide 23.8 mmol/L (21.0-32.0); Chloride 101 mmol/L (98-108); Cholesterol 170 mg/dL (<=200); Free T3 2.2 pg/mL (2.18-3.98); Globulin 2.5 g/dL (2.2-4.2); Glucose 112 mg/dL (70-99); Low Density Lipoprotein Calc. 82 mg/dL; Potassium 3.4 mmol/L (3.3-5.1); Triglycerides 84 mg/dL; Very Low Density Lipoprotein 17 mg/dL (5-40); Vitamin D,25 Hydroxy 56.6 ng/mL (30-100); cholesterol:hdl ratio screen 2.34
== END | disposition home or self-care (01) ==
LOC: MTLAB 11:31
PROVIDERS: PCP Family Medicine; Referring Provider Internal Medicine Endocrinology, Diabetes & Metabolism; Visit Provider Internal Medicine Endocrinology, Diabetes & Metabolism
DX: E27.40 Unspecified adrenocortical insufficiency (principal); E03.9 Hypothyroidism, unspecified; E78.00 Pure hypercholesterolemia, unspecified; E55.9 Vitamin D deficiency, unspecified; R73.03 Prediabetes
CPT/HCPCS: 36415; 80053; 80061; 82043; 82306; 82570; 83036; 84439; 84443; 84481